=== PATIENT | female | born 1960 | race African-American/Black ===

== ENCOUNTER 2016-09-06 08:01 | Inpatient (IN) | payer MEDICARE, OTHER ==
[2016-09-06] VITALS (7 sets, daily range): BP systolic 92–132; BP diastolic 47–74; PULSE 82–96; RESP 16–20; TEMP 97.1–98.2; O2SAT 93–97
[~2016-09-06] VITALS: Ht 167.6 cm; Wt 135.0 kg
[~2016-09-06 08:01] MED LIST: ASPI81TA11 PO; ATOR40TA16 PO; BUPR75TA PO; CALC.25 PO; GABA100C4 PO; HYDR1LOT8 TOPICAL; LEVO50TA4 PO; LIPI40TA PO; NYST10007 TOPICAL; OSCA200T PO; PANT40TA3 PO; SUCR1TAB PO
[2016-09-06] MEDS ORDERED: SODIUM CHLORIDE 0.9% FLUSH 5 ML FLUSH IVF PRN ×2 (08:15→12:00)
--- NOTE | 2016-09-06 08:24 | PD ---
HPI Chief Complaint: Chest Pain Time Seen by Provider: 08:09 Travel History International Travel<30 days: No Contact w/Intl Traveler<30days: No Traveled to known affect area: No History of Present Illness HPI 56-year-old female was brought into the emergency room by EMS with history of left sided shoulder and arm pain worsening on movement. Patient was admitted for something similar 10 days ago. She is an end-stage renal disease hemodialysis dependent and is due for her dialysis today at 11 AM. She is also complaining of some shortness of breath. EMS vital signs were within normal limits. She is diabetic and her blood glucose was 135 by EMS. She does not require oxygen at home. She looked quite uncomfortable trying to move from the gurney to the stretcher. Mainly the pain was around the left shoulder and clavicular area. Denies any fall. She has a permacath in her right groin which is being used for dialysis. She is afebrile in the emergency room. She has been complaining of chills for the past 2 days. She has a noticeable skin rash all over her body. It's peeling. PFSH Past Medical History Narrative Medical List for past medical history is reviewed from the nursing note. Hx Anticoagulant Therapy: Yes (COUMADIN) Anemia: Yes Arthritis: Yes Asthma: Yes Autoimmune Disease: No Blood Disorders: No Anxiety: Yes Depression: Yes Heart Rhythm Problems: No Cancer: No Cardiovascular Problems: Yes (HTN) High Cholesterol: Yes Chemotherapy: No Chest Pain: Yes Congestive Heart Failure: Yes COPD: Yes Cerebrovascular Accident: No Diabetes: Yes Patient Takes Glucophage: No Dialysis: Yes (/) Diminished Hearing: No Endocrine: Yes Gastrointestinal Disorders: Yes (ULCERS) GERD: Yes Glaucoma: No Genitourinary: Yes (ESRD, DIALYSIS) Headaches: Yes Hepatitis: No Hiatal Hernia: No Hypertension: Yes (hx of not now) Immune Disorder: No Implanted Vascular Access Dvce: Yes (R FEMORAL AV FISTULA) Kidney Stones: No Musculoskeletal: Yes (ARTHRITIS) Neurologic: No Psychiatric: Yes Reproductive: No Respiratory: Yes (COPD, ASTHMA) Immunizations Current: Yes Migraines: No Myocardial Infarction: No Pneumonia: Yes (HX) Radiation Therapy: No Renal Failure: Yes (CRF) Seizures: No Sickle Cell Disease: No Sleep Apnea: Yes Thyroid Disease: No Ulcer: No Tetanus Vaccination: > 5 Years PNEUMOCCOCAL Vaccine (Year): 3 Menopausal: Yes : 3 Para: 3 Miscarriage: 0 : 0 Past Surgical History Abdominal Surgery: Yes AICD: No Appendectomy: Yes Arteriovenous Shunt: Yes (right femoral av fistula) Body Medical Devices: OLD NON FUNCTIONING GRAFT NANCY. CURRENT PERMACATH R GROIN Cardiac Surgery: No Cholecystectomy: Yes Ear Surgery: No Endocrine Surgery: Yes (THYROIDECTOMY) Eye Surgery: Yes (LASIK right cataract removed) Genitourinary Surgery: Yes (Peritoneal Abdominal Catheter removed april 2015) Gynecologic Surgery: Yes (Partial Hysterectomy and Appendectomy ) Hysterectomy: Yes (PARTIAL) Insulin Pump: No Joint Replacement: No Neurologic Surgery: No Oral Surgery: Yes (ALL TEETH REMOVED) Pacemaker: No Thoracic Surgery: No Other Surgery: Yes (RIGHT HAND, APPENDECTOMY, GALL BLADDER REMOVAL) Social History Alcohol Use: No Tobacco Use: No Substance Use: Yes (COCAINE IN THE 90'S) Allergies-Medications (Allergen,Severity, Reaction): Coded Allergies: Levaquin (Unverified Allergy, Severe, 09/06/16) ANAPHYLAXIS *MDRO Multi-Drug Resistant Organism (Verified Adverse Reaction, Unknown, Cleared, 09/07/16) MRSA (wound) - 04/2011, (blood) - 10/2011 MRSA PCR Screen negative 02/17/15 and 02/19/15. Cleared per Infection Control Comments List of her allergies reviewed from the nursing note. Reported Meds & Prescriptions Reported Meds & Active Scripts Active Nystop Topical (Nystatin Topical) 100,000 Unit/Gm Powd 1 Applic TOPICAL Q8HR Hydroskin (Hydrocortisone (Topical)) 1 % Lot 1 Applic TOPICAL Q8HR Aspirin EC (Aspirin) 81 Mg Tabdr 81 Mg PO DAILY Reported Sucralfate 1 Gm Tab 1 Gm PO BIDAC on empty stomach Rocaltrol (Calcitriol) 0.25 Mcg Cap 0.25 Mcg PO DAILY Pantoprazole (Pantoprazole Sodium) 40 Mg Tab 40 Mg PO DAILY Levothyroxine (Levothyroxine Sodium) 50 Mcg Tab 50 Mcg PO DAILY Gabapentin 100 Mg Cap 200 Mg PO TID Oscal 500/200 D-3 (Calcium Carbonate-Vitamin D) 500-200 Mg-Unit Tab 4 Tab PO Q8HR Bupropion HCl 75 Mg Tab 75 Mg PO DAILY Atorvastatin (Atorvastatin Calcium) 40 Mg Tab 40 Mg PO HS Narrative Medication List of her home medications reviewed from the nursing note. Review of Systems Except as stated in HPI: all other systems reviewed are Neg Physical Exam Narrative GENERAL: Awake, alert, obese, moderate distress SKIN: Warm and dry. Healing, flaky skin in the extremities and torso. Permacath in the right groin area with some erythema of the skin and foul odor around it HEAD: Atraumatic. Normocephalic. EYES: Pupils equal and round. No scleral icterus. No injection or drainage. ENT: No nasal bleeding or discharge. Mucous membranes pink and moist. NECK: Trachea midline. No JVD. CARDIOVASCULAR: Regular rate and rhythm. No murmur appreciated. RESPIRATORY: No accessory muscle use. Clear to auscultation. Breath sounds equal bilaterally. GASTROINTESTINAL: Abdomen soft, non-tender, nondistended. Hepatic and splenic margins not palpable. MUSCULOSKELETAL: No obvious deformities. No clubbing. No cyanosis. No edema. NEUROLOGICAL: Awake and alert. No obvious cranial nerve deficits. Motor grossly within normal limits. Normal speech. PSYCHIATRIC: Appropriate mood and affect; insight and judgment normal. Data Data Last Documented VS Vital Signs Date Time Temp Pulse Resp B/P Pulse Ox O2 Delivery O2 Flow Rate FiO2 09/06/16 08:17 Nasal Cannula 2 09/06/16 08:17 97 09/06/16 08:05 98.2 96 20 124/63 Orders Electrocardiogram (09/06/16 08:09) Ckmb (Isoenzyme) Profile (09/06/16 08:09) Complete Blood Count With Diff (09/06/16 08:09) Comprehensive Metabolic Panel (09/06/16 08:09) Magnesium (Mg) (09/06/16 08:09) Prothrombin Time / Inr (Pt) (09/06/16 08:09) Act Partial Throm Time (Ptt) (09/06/16 08:09) Troponin I (09/06/16 08:09) Chest, Single Ap (09/06/16 08:09) Ecg Monitoring (09/06/16 08:09) Bilateral Bp Monitoring (09/06/16 08:09) Iv Access Insert/Monitor (09/06/16 08:09) Oximetry (09/06/16 08:09) Oxygen Administration (09/06/16 08:09) Sodium Chloride 0.9% Flush (Ns Flush) (09/06/16 08:15) Blood Culture (09/06/16 08:09) Clavicle (09/06/16 ) Morphine Inj (Morphine Inj) (09/06/16 08:30) Vascular Poc Ultrasound (09/06/16 ) Consult Vascular Access Team (09/06/16 ) Calcium Gluconate Inj (Calcium Gluconate (09/06/16 11:15) Calcium Gluconate (Calcium Gluconate) (09/06/16 11:15) ^ Blood Flow Rate (09/06/16 11:50) ^ Dialysate Flow Rate (09/06/16 11:50) ^ Dialyzer (09/06/16 11:50) ^ Concentrate (09/06/16 11:50) ^ Acid Concentrate (09/06/16 11:50) ^ Length Of Dialysis (09/06/16 11:50) ^ Frequency Of Dialysis (09/06/16 11:50) ^ Dialysis Obtain (09/06/16 11:50) ^ Dialysis Schedule (09/06/16 11:50) Resp Oxygen Helder C Titrat 1-4 L (09/06/16 ) ^ Dialysis Weight (09/06/16 11:50) ^ Obtain As Needed (09/06/16 11:50) Sodium Chlor 0.9% 1000 Ml Inj (Ns 1000 M (09/06/16 11:50) Heparin Inj (Heparin Inj) (09/06/16 12:00) Sodium Chlor 0.9% 1000 Ml Inj (Ns 1000 M (09/06/16 11:50) Sodium Chlor 0.9% 1000 Ml Inj (Ns 1000 M (09/06/16 11:50) Mannitol Inj (Mannitol Inj) (09/06/16 12:00) Albumin 25% Inj (Albumin 25% Inj) (09/06/16 12:00) Sodium Chloride 0.9% Flush (Ns Flush) (09/06/16 12:00) Heparin Inj (Heparin Inj) (09/06/16 12:00) Gentamicin (Dialysis) Inj (Gentamicin (D (09/06/16 12:00) Ondansetron Inj (Zofran Inj) (09/06/16 12:00) Acetaminophen (Tylenol) (09/06/16 12:00) Diphenhydramine (Benadryl) (09/06/16 12:00) Nitroglycerin Sl (Nitrostat Sl) (09/06/16 12:00) Clonidine (Catapres) (09/06/16 12:00) Epoetin Velasquez Inj (Epogen Inj) (09/06/16 12:00) Gelatin 12 Mm/7 Mm Top (Gelfoam 12 Mm/7 (09/06/16 12:00) Epoetin Velasquez Inj (Epogen Inj) (09/06/16 12:00) Admit Order (Ed Use Only) (09/06/16 11:58) Labs Laboratory Tests Test 09/06/16 09/06/16 08:30 10:01 White Blood Count 11.4 TH/MM3 Red Blood Count 4.14 MIL/MM3 Hemoglobin 12.0 GM/DL Hematocrit 37.9 % Mean Corpuscular Volume 91.6 FL Mean Corpuscular Hemoglobin 29.0 PG Mean Corpuscular Hemoglobin 31.7 % Concent Red Cell Distribution Width 15.2 % Platelet Count 303 TH/MM3 Mean Platelet Volume 8.6 FL Neutrophils (%) (Auto) 77.6 % Lymphocytes (%) (Auto) 6.5 % Monocytes (%) (Auto) 8.0 % Eosinophils (%) (Auto) 7.4 % Basophils (%) (Auto) 0.5 % Neutrophils # (Auto) 8.9 TH/MM3 Lymphocytes # (Auto) 0.7 TH/MM3 Monocytes # (Auto) 0.9 TH/MM3 Eosinophils # (Auto) 0.8 TH/MM3 Basophils # (Auto) 0.1 TH/MM3 CBC Comment DIFF FINAL Differential Comment Prothrombin Time 10.8 SEC Prothromb Time International 1.0 RATIO Ratio Activated Partial 30.8 SEC Thromboplast Time Sodium Level 139 MEQ/L Potassium Level 4.8 MEQ/L Chloride Level 103 MEQ/L Carbon Dioxide Level 26.2 MEQ/L Anion Gap 10 MEQ/L Blood Urea Nitrogen 53 MG/DL Creatinine 8.61 MG/DL Estimat Glomerular Filtration 6 ML/MIN Rate Random Glucose 134 MG/DL Calcium Level 6.1 MG/DL Protein Corrected Calcium 5.9 MG/DL Magnesium Level 2.0 MG/DL Total Bilirubin 0.3 MG/DL Aspartate Amino Transf 11 U/L (AST/SGOT) Alanine Aminotransferase 18 U/L (ALT/SGPT) Alkaline Phosphatase 64 U/L Total Creatine Kinase 84 U/L Troponin I LESS THAN 0.02 NG/ML Total Protein 7.8 GM/DL Albumin 2.6 GM/DL MDM Medical Decision Making Medical Screen Exam Complete: Yes Emergency Medical Condition: Yes Medical Record Reviewed: Yes Interpretation(s) Twelve-lead EKG was reviewed by me. Normal sinus rhythm, normal axis, poor R- wave progression, low voltage, nonspecific ST-T wave changes. Rate of 90 bpm. Differential Diagnosis CHF, musculoskeletal pain, clavicular fracture, electrolyte abnormalities Narrative Course 8:23 AM awaiting for the blood test results. I will give this patient morphine for pain. Awaiting for the x-rays to be done and resulted. 10:19 AM patient has mild leukocytosis. Her chemistry was a redraw. The blood was just sent. Awaiting for the test result. I spoke with Dr. Leyva who is her shipping & receiving lead regarding patient's dialysis and he wants the patient to be admitted. I will call the hospitalist as soon as I have the chemistry results back. 11:11 AM calcium was critically low. I've ordered 1 g of IV calcium gluconate and 500 mg of by mouth calcium gluconate. Awaiting for the hospitalist to call back. She'll need to be admitted. Critical Care Narrative Aggregate critical care time was 30 minutes. Time to perform other separately billable procedures was not included in the critical care time. My time did not include minutes spent treating any other patients simultaneously or on activities that did not directly contribute to the patient's treatment. The services I provided to this patient were to treat and/or prevent clinically significant deterioration that could result in: Hypocalcemia, calcium replacement I provided critical care services requiring my management, as noted below: Chart data review, documentation time, medication orders and management, vital sign assessments/reviewing monitor data, ordering and reviewing lab tests, ordering and interpreting/reviewing x-rays and diagnostic studies, care of the patient and discussion of the patient with the admitting physicians. Procedures EKG Prior to Arrival: Yes Physician Communication Physician Communication Dr. leyva Diagnosis Primary Impression: ESRD (end stage renal disease) Additional Impressions: Chest pain Qualified Code: R07.9 - Chest pain, unspecified type Hypocalcemia History of hyperparathyroidism Dependent on hemodialysis Admitting Information Admitting Physician Requests: Admit Onel Che MD Sep 06, 2016 08:24
[2016-09-06] MEDS ORDERED: MORPHINE SULFATE 8 MG/ML INJ IV PUSH ONE (08:30)
[2016-09-06 08:50] LABS: AUTOMATED NEUTROPHIL # 8.9 TH/MM3 (1.8-7.7); BASOPHIL # 0.1 TH/MM3 (0-0.2); BASOPHIL % 0.5 % (0.0-2.0); EOSINOPHIL # 0.8 TH/MM3 (0-0.4); EOSINOPHIL % 7.4 % (0.0-4.0); HEMATOCRIT 37.9 % (35.0-46.0); HEMO FLAGS DIFF FINAL; LYMPH % 6.5 % (9.0-44.0); LYMPHOCYTE # 0.7 TH/MM3 (1.0-4.8); MEAN CELL VOLUME 91.6 FL (80.0-100.0); MEAN CORPUSCULAR HGB CONC 31.7 % (32.0-36.0); NEUT % 77.6 % (16.0-70.0); PLATELET COUNT 303 TH/MM3 (150-450); RED BLOOD COUNT 4.14 MIL/MM3 (4.00-5.30); RED CELL DISTRIBUTION WIDTH 15.2 % (11.6-17.2); WHITE BLOOD COUNT 11.4 TH/MM3 (4.0-11.0)
--- NOTE | 2016-09-06 09:16 | RADRPT ---
EXAM DATE/TIME: 09/06/2016 08:52 [facility] COMPARISON: CHEST SINGLE AP, August 25, 2016, 22:40. INDICATIONS : Chest pain sudden onset today. MEDICAL HISTORY : Chronic obstructive pulmonary disease. Congestive heart failure. Asthma. SURGICAL HISTORY : Vascular stent, hero catheter. ENCOUNTER: Initial ACUITY: 1 day PAIN SCORE: 5/10 LOCATION: Bilateral chest FINDINGS: A single view of the chest demonstrates the lungs to be symmetrically aerated without evidence of mas s, infiltrate or effusion. The cardiomediastinal contours are unremarkable. Osseous structures are intact. Vascular stents left side again noted unchanged CONCLUSION: No acute disease. No significant change has occurred. Blas Butler MD on September 06, 2016 at 9:13 Board Certified Radiologist. This report was verified electronically.
--- NOTE | 2016-09-06 09:18 | RADRPT ---
EXAM DATE/TIME: 09/06/2016 08:55 [facility] COMPARISON: No previous studies available for comparison. INDICATIONS : Left clavicle pain no known injury. MEDICAL HISTORY : Chronic obstructive pulmonary disease. Congestive heart failure. Asthma. SURGICAL HISTORY : Vascular stent, hero catheter. ENCOUNTER: Initial ACUITY: 1 day PAIN SCORE: 5/10 LOCATION: Left Clavicle. FINDINGS: Two view examination of the left clavicle demonstrates no evidence of fracture. The sternoclavicular joints and acromioclavicular joints are maintained. Bony mineralization is normal. Vascular stents are noted in place CONCLUSION: Vascular stents stable and unchanged in place. Otherwise negative Blas Butler MD on September 06, 2016 at 9:16 Board Certified Radiologist. This report was verified electronically.
[2016-09-06 10:38] LABS: PROTHROMBIN TIME - PATIENT 10.8 SEC (9.8-11.6)
[2016-09-06 10:40] LABS: APTT (PATIENT) 30.8 SEC (24.3-30.1)
[2016-09-06 10:54] LABS: ANION GAP 10 MEQ/L (5-15)
[2016-09-06 10:55] LABS: ALKALINE PHOSPHATASE 64 U/L (45-117); ALT (GPT) 18 U/L (10-53); AST (GOT) 11 U/L (15-37); BICARBONATE 26.2 MEQ/L (21.0-32.0); BLOOD UREA NITROGEN 53 MG/DL (7-18); CHLORIDE 103 MEQ/L (98-107); GLOMERULAR FILTRATION RATE 6 ML/MIN (>89); POTASSIUM 4.8 MEQ/L (3.5-5.1); SODIUM (NA) 139 MEQ/L (136-145); TOTAL BILIRUBIN ADULT 0.3 MG/DL (0.2-1.0)
[2016-09-06 10:58] LABS: CREATINE KINASE 84 U/L (26-192)
[2016-09-06 11:01] LABS: CALCIUM-PROTEIN CORRECTED 5.9 MG/DL (8.5-10.1)
[2016-09-06] MEDS ORDERED: CALCIUM GLUCONATE 10% 1 GM/10 ML VIAL IV PUSH ONE (11:15)
[2016-09-06] MEDS ORDERED: CALCIUM GLUCONATE 500 MG TAB PO ONE (11:15)
[2016-09-06] MEDS ORDERED: SODIUM CHLOR 0.9% 1000 ML INJ 1,000 ML IV PRN ×2 (11:50)
[2016-09-06] MEDS ORDERED: ACETAMINOPHEN 325 MG TAB PO PRN ×2 (12:00)
[2016-09-06] MEDS ORDERED: NITROGLYCERIN 0.4 MG SL 25 TABS/BTL SL PRN (12:00)
[2016-09-06] MEDS ORDERED: PROCHLORPERAZINE 25 MG SUPP PR PRN (12:00)
[2016-09-06] MEDS ORDERED: MAGNESIUM HYDROXIDE SUSP 30 ML CUP PO PRN (12:00)
[2016-09-06] MEDS ORDERED: ONDANSETRON HCL 4 MG/2 ML VIAL IV PRN (12:00)
[2016-09-06] MEDS ORDERED: EPOETIN ALFA 2,000 UNITS/ML VIAL IV PRN (12:00)
[2016-09-06] MEDS ORDERED: SENNOSIDES 8.6 MG TAB PO PRN (12:00)
[2016-09-06] MEDS ORDERED: BISACODYL 10 MG SUPP PR PRN (12:00)
[2016-09-06] MEDS ORDERED: ONDANSETRON HCL 4 MG/2 ML VIAL IVP PRN (12:00)
[2016-09-06] MEDS ORDERED: EPOETIN ALFA 10,000 UNITS/ML VIAL IV PRN (12:00)
[2016-09-06] MEDS ORDERED: MANNITOL 12.5 GM/50 ML VIAL IV PRN (12:00)
[2016-09-06] MEDS ORDERED: SODIUM CHLORIDE 0.9% FLUSH 5 ML FLUSH FLUSH PRN (12:00)
[2016-09-06] MEDS ORDERED: diphenhydrAMINE HCL 25 MG CAP PO PRN (12:00)
[2016-09-06] MEDS ORDERED: GELATIN 12 MM/7 MM FOAM TOP PRN (12:00)
[2016-09-06] MEDS ORDERED: HEPARIN SODIUM - IV 10,000 UNITS/10 ML VIAL IVF PRN (12:00)
[2016-09-06] MEDS ORDERED: cloNIDine HCL 0.1 MG TAB PO PRN (12:00)
[2016-09-06] MEDS ORDERED: TEMAZEPAM 15 MG CAP PO PRN (12:00)
[2016-09-06] MEDS: HEPARIN SODIUM - SQ 10,000 UNITS/ML VIAL SQ SCH (12:40)
[2016-09-06] MEDS ORDERED: CALCIUM CARBONATE 500 MG CHEWABLE TAB CHEW SCH (13:30)
--- NOTE | 2016-09-06 14:46 | PD.CONS ---
HPI Service Nephrology Consult Requested By Dr. Zaragoza Reason for Consult ESRD management Primary Care Physician No Primary Care Physician History of Present Illness Patient is a 56-year-old Afro-[place] female with morbid obesity, diabetes, hypertension who had the left shoulder pain and then had raw 10 for this complaint, she has similar admission upon last admission and was discharged recently, she goes on hemodialysis on Sunday, Sunday and Sunday, she has a groin fungal infection and was using nystatin powder. She is feeling better her calcium was low and this was replaced in the ED. She admits to keep forgetting to take her calcium supplements as prescribed. Review of Systems Constitutional: COMPLAINS OF: Fatigue Cardiovascular: COMPLAINS OF: Chest pain Musculoskeletal: COMPLAINS OF: Joint pain Integumentary: COMPLAINS OF: Pruritus, Rash Neurologic: COMPLAINS OF: Abnormal gait, Poor Balance Psychiatric: COMPLAINS OF: Anxiety Past Family Social History Allergies: Coded Allergies: Levaquin (Unverified Allergy, Severe, 09/06/16) ANAPHYLAXIS *MDRO Multi-Drug Resistant Organism (Verified Adverse Reaction, Unknown, 09/06/16) MRSA (wound) - 04/2011, (blood) - 10/2011 MRSA PCR Screen negative 02/17/15 and 02/19/15. Cleared per Infection Control Past Medical History Diabetes Hypertension History of sepsis MRSA ESRD Failure of previous AV fistula and graft Anemia Morbid obesity GERD Asthma Hepatitis C Past Surgical History Multiple AV fistulas and grafts which all failed Right leg permacath Thyroidectomy Appendectomy Partial hysterectomy Reported Medications Reported Meds & Active Scripts Active Nystop Topical (Nystatin Topical) 100,000 Unit/Gm Powd 1 Applic TOPICAL Q8HR Hydroskin (Hydrocortisone (Topical)) 1 % Lot 1 Applic TOPICAL Q8HR Aspirin EC (Aspirin) 81 Mg Tabdr 81 Mg PO DAILY Reported Sucralfate 1 Gm Tab 1 Gm PO BIDAC on empty stomach Rocaltrol (Calcitriol) 0.25 Mcg Cap 0.25 Mcg PO DAILY Pantoprazole (Pantoprazole Sodium) 40 Mg Tab 40 Mg PO DAILY Levothyroxine (Levothyroxine Sodium) 50 Mcg Tab 50 Mcg PO DAILY Gabapentin 100 Mg Cap 200 Mg PO TID Oscal 500/200 D-3 (Calcium Carbonate-Vitamin D) 500-200 Mg-Unit Tab 4 Tab PO Q8HR Bupropion HCl 75 Mg Tab 75 Mg PO DAILY Atorvastatin (Atorvastatin Calcium) 40 Mg Tab 40 Mg PO HS Active Ordered Medications Current Medications Medications (Trade) Dose Ordered Sig/Mary Grace Route Start Time Stop Time Status Last Admin IV Flush 2 ml 2 ml UNSCH PRN IVF 09/06/16 08:15 (NS 1000 ml Inj) 1,000 ml @ 0 mls/hr Q0M PRN IV 09/06/16 11:50 Heparin Sodium (Porcine) 8000 units 8,000 units UNSCH PRN IVF 09/06/16 12:00 Sodium Chloride 1,000 ml @ 200 mls/hr Q5H PRN IV 09/06/16 11:50 (NS 1000 ml Inj) 1,000 ml @ 0 mls/hr Q0M PRN IV 09/06/16 11:50 (Mannitol Inj) 12.5 gm UNSCH PRN IV 09/06/16 12:00 (Albumin 25% Inj) 25 gm UNSCH PRN IV 09/06/16 12:00 (NS Flush) 5 ml UNSCH PRN IVF 09/06/16 12:00 (Heparin Inj) UNSCH PRN .XX 09/06/16 12:00 (Gentamicin (Dialysis) Inj) 20 mg UNSCH PRN IV 09/06/16 12:00 (Zofran Inj) 4 mg UNSCH PRN IV 09/06/16 12:00 (Tylenol) 650 mg UNSCH PRN PO 09/06/16 12:00 (Benadryl) 25 mg UNSCH PRN PO 09/06/16 12:00 (Nitrostat Sl) 0.4 mg UNSCH PRN SL 09/06/16 12:00 (Catapres) 0.1 mg UNSCH PRN PO 09/06/16 12:00 (Gelfoam 12 Mm/7 Mm Top) 1 foam UNSCH PRN TOP 09/06/16 12:00 (Epogen Inj) 2,000 units UNSCH PRN IV 09/06/16 12:00 (NS Flush) 2 ml UNSCH PRN FLUSH 09/06/16 12:00 (NS Flush) 2 ml BID FLUSH 09/06/16 21:00 (Tylenol) 650 mg Q4H PRN PO 09/06/16 12:00 (Zofran Inj) 4 mg Q6H PRN IVP 09/06/16 12:00 (Compazine Supp) 25 mg Q12H PRN VT 09/06/16 12:00 (Dulcolax Supp) 10 mg DAILY PRN VT 09/06/16 12:00 (Milk Of Magnesia Liq) 30 ml Q12H PRN PO 09/06/16 12:00 (Senokot) 17.2 mg Q12H PRN PO 09/06/16 12:00 (Restoril) 15 mg HS PRN PO 09/06/16 12:00 (Heparin Inj) 5,000 units Q12H SQ 09/06/16 12:00 09/06/16 12:40 (Tums Chew) 500 mg Q12HR CHEW 09/06/16 13:30 Family History Noncontributory Social History Denies smoking or alcohol is previous history of cocaine use in Physical Exam Vital Signs Vital Signs Date Time Temp Pulse Resp B/P Pulse Ox O2 Delivery O2 Flow Rate FiO2 09/06/16 12:27 97 Nasal Cannula 2.00 09/06/16 08:17 Nasal Cannula 2 09/06/16 08:17 97 09/06/16 08:10 Nasal Cannula 2 09/06/16 08:05 98.2 96 20 124/63 96 Physical Exam GENERAL: Well-nourished, well-developed morbidly obese patient. SKIN: Warm and dry. HEAD: Normocephalic. EYES: No scleral icterus. No injection or drainage. NECK: Supple, trachea midline. No JVD or lymphadenopathy. CARDIOVASCULAR: Regular rate and rhythm without murmurs, gallops, or rubs. RESPIRATORY: Breath sounds diminished at bases. GASTROINTESTINAL: Abdomen soft, non-tender, distended. EXTREMITIES: No cyanosis, 2+ edema. NEUROLOGICAL: Awake, alert, and oriented x 3. Non-focal. Laboratory Laboratory Tests Test 09/06/16 09/06/16 08:30 10:01 White Blood Count 11.4 Red Blood Count 4.14 Hemoglobin 12.0 Hematocrit 37.9 Mean Corpuscular Volume 91.6 Mean Corpuscular Hemoglobin 29.0 Mean Corpuscular Hemoglobin 31.7 Concent Red Cell Distribution Width 15.2 Platelet Count 303 Mean Platelet Volume 8.6 Neutrophils (%) (Auto) 77.6 Lymphocytes (%) (Auto) 6.5 Monocytes (%) (Auto) 8.0 Eosinophils (%) (Auto) 7.4 Basophils (%) (Auto) 0.5 Neutrophils # (Auto) 8.9 Lymphocytes # (Auto) 0.7 Monocytes # (Auto) 0.9 Eosinophils # (Auto) 0.8 Basophils # (Auto) 0.1 CBC Comment DIFF FINAL Differential Comment Prothrombin Time 10.8 Prothromb Time International 1.0 Ratio Activated Partial 30.8 Thromboplast Time Sodium Level 139 Potassium Level 4.8 Chloride Level 103 Carbon Dioxide Level 26.2 Anion Gap 10 Blood Urea Nitrogen 53 Creatinine 8.61 Estimat Glomerular Filtration 6 Rate Random Glucose 134 Calcium Level 6.1 Protein Corrected Calcium 5.9 Magnesium Level 2.0 Total Bilirubin 0.3 Aspartate Amino Transf 11 (AST/SGOT) Alanine Aminotransferase 18 (ALT/SGPT) Alkaline Phosphatase 64 Total Creatine Kinase 84 Troponin I LESS THAN 0.02 Total Protein 7.8 Albumin 2.6 Date/Time Procedure Status Source Growth 09/06/16 08:30 Aerobic Blood Culture Received Blood Peripheral Pending 09/06/16 08:30 Anaerobic Blood Culture Received Blood Peripheral Pending Result Diagram: 09/06/16 0830 09/06/16 1001 Imaging Last Impressions Chest X-Ray 09/06/16 0809 Signed Impressions: Service Date/Time: Tuesday, September 06, 2016 08:52 - CONCLUSION: No acute disease. No significant change has occurred. Blas Butler MD Clavicle X-Ray 09/06/16 0000 Signed Impressions: Service Date/Time: Tuesday, September 06, 2016 08:55 - CONCLUSION: Vascular stents stable and unchanged in place. Otherwise negative Blas Butler MD Assessment and Plan Problem List: (1) ESRD (end stage renal disease) Plan: Patient is seen during hemodialysis she is tolerating it well we will do ultrafiltration get fluid off expects approximately 3 L off Follow her while she is in the hospital Calcium was replaced (2) Hypocalcemia Plan: She is told to take calcium carbonate as advice (3) Chest pain Plan: Patient has been observed (4) Hypertension Plan: stable blood pressure Problem Qualifiers (1) Chest pain: Qualified Code: R07.9 - Chest pain, unspecified type Frank Villagran MD Sep 06, 2016 14:46
--- NOTE | 2016-09-06 15:58 | HHI.HP ---
[facility] Primary [facility] Physician No Primary Care Physician Admission Diagnosis hypocalcemia, end-stage renal disease, hemodialysis dependent, chest Diagnoses: Chief Complaint: chest pain Travel History International Travel<30 Days: No Contact w/Intl Traveler <30 Da: No Traveled to Known Affected Are: No History of Present Illness 56-year-old female with a PMH of HTN, ESRD on HD M/W/F, COPD, CHF (Echo 05/11/16 w / EF 55-60%) and GERD who came to the ER w/ complaints of chest pain x2 days. Note the patient was recently admitted with similar complaints. and was cleared by cardiology for DC. States she's had some "congestion" as well, but denies fever, chills or SOB. Troponin negative, EKG with no acute changes. CXR negative for acute findings. Patient currently asymptomatic. Patient main complaint is left shoulder pain and inability to move hr shoulder due to pain, Xray reviewed without any sign of fracture. She does have decreased ROM of the left shoulder and the head 2/2 PAIN. Patient however has severe muscle spasm. No n/v/d/c. No diaphoresis, palpitations. Review of Systems Constitutional: DENIES: Fever, Chills, Change in appetite Endocrine: DENIES: Heat/cold intolerance Eyes: DENIES: Blurred vision, Eye pain Ears, nose, mouth, throat: DENIES: Tinnitus, Hearing loss, Vertigo, Nasal discharge, Oral lesions, Throat pain, Hoarseness, Ear Pain, Running Nose, Epistaxis, Sinus Pain, Toothache, Odynophagia Respiratory: DENIES: Apneas, Cough, Snoring, Wheezing, Hemoptysis, Sputum production, Shortness of breath Cardiovascular: COMPLAINS OF: Chest pain, DENIES: Palpitations, Syncope, Dyspnea on Exertion, PND, Lower Extremity Edema, Orthopnea, Claudication Gastrointestinal: DENIES: Abdominal pain, Black stools, Bloody stools, Constipation, Diarrhea, Nausea, Vomiting, Difficulty Swallowing, Anorexia Musculoskeletal: COMPLAINS OF: Joint pain (left shoulder /neck), Neck pain Neurologic: DENIES: Abnormal gait, Headache, Localized weakness, Paresthesias, Seizures, Speech Problems, Tremor, Poor Balance Psychiatric: DENIES: Anxiety, Depression Past Family Social History Past Medical History HTN, ESRD on HD M/W/F, COPD, CHF (Echo 05/11/16 w/ EF 55-60%) and GERD Past Surgical History RUE AV Fistula, Right Groin AV Fistula, PD Catheter Placement and Removal, Partial Hysterectomy, Appendectomy, Cholecystectomy, Thyroidectomy, Right Cataract Surgery, Dental Extraction Reported Medications Reported Meds & Active Scripts Active Nystop Topical (Nystatin Topical) 100,000 Unit/Gm Powd 1 Applic TOPICAL Q8HR Hydroskin (Hydrocortisone (Topical)) 1 % Lot 1 Applic TOPICAL Q8HR Aspirin EC (Aspirin) 81 Mg Tabdr 81 Mg PO DAILY Reported Sucralfate 1 Gm Tab 1 Gm PO BIDAC on empty stomach Rocaltrol (Calcitriol) 0.25 Mcg Cap 0.25 Mcg PO DAILY Pantoprazole (Pantoprazole Sodium) 40 Mg Tab 40 Mg PO DAILY Levothyroxine (Levothyroxine Sodium) 50 Mcg Tab 50 Mcg PO DAILY Gabapentin 100 Mg Cap 200 Mg PO TID Oscal 500/200 D-3 (Calcium Carbonate-Vitamin D) 500-200 Mg-Unit Tab 4 Tab PO Q8HR Bupropion HCl 75 Mg Tab 75 Mg PO DAILY Atorvastatin (Atorvastatin Calcium) 40 Mg Tab 40 Mg PO HS Allergies: Coded Allergies: Levaquin (Unverified Allergy, Severe, 09/06/16) ANAPHYLAXIS *MDRO Multi-Drug Resistant Organism (Verified Adverse Reaction, Unknown, 09/06/16) MRSA (wound) - 04/2011, (blood) - 10/2011 MRSA PCR Screen negative 02/17/15 and 02/19/15. Cleared per Infection Control Family History Mother with DM, HTN Sister HTN, DM Father prostate CA Brother EtOH abuse 2/2 complications Social History Denies alcohol, tobacco or drugs. Physical Exam Vital Signs Vital Signs Date Time Temp Pulse Resp B/P Pulse Ox O2 Delivery O2 Flow Rate FiO2 09/06/16 12:27 97 Nasal Cannula 2.00 09/06/16 08:17 Nasal Cannula 2 09/06/16 08:17 97 09/06/16 08:10 Nasal Cannula 2 09/06/16 08:05 98.2 96 20 124/63 96 Physical Exam GENERAL: This is a very pleasant 56 yo morbidly obese AA female, well-nourished , well-developed patient, in no apparent distress. SKIN: Very dry skin with multiple circular lesions. Rash on groin area. HEAD: Atraumatic. Normocephalic. No temporal or scalp tenderness. EYES: Pupils equal round and reactive. Extraocular motions intact. No scleral icterus. No injection or drainage. ENT: Nose without bleeding, purulent drainage or septal hematoma. Throat without erythema, tonsillar hypertrophy or exudate. Uvula midline. Airway patent. NECK: Trachea midline. No JVD or lymphadenopathy. Supple, nontender, no meningeal signs. CARDIOVASCULAR: Regular rate and rhythm without murmurs, gallops, or rubs. RESPIRATORY: Clear to auscultation. Breath sounds equal bilaterally. No wheezes , rales, or rhonchi. GASTROINTESTINAL: Abdomen soft, non-tender, nondistended. No hepato-splenomegaly , or palpable masses. No guarding. MUSCULOSKELETAL: Neck with paravertebral muscle tenderness, trapezius muscle with tenderness and spasm. very tense. Decreased ROM of the left shoulder and head movement 2/2 pain. Extremities without clubbing, cyanosis, or edema. No joint tenderness on palpation, no effusion, or edema noted. No calf tenderness. Negative Homans sign bilaterally. NEUROLOGICAL: Awake and alert. Cranial nerves II through XII intact. Motor and sensory grossly within normal limits. Five out of 5 muscle strength in all muscle groups. Normal speech. Laboratory Laboratory Tests Test 09/06/16 09/06/16 08:30 10:01 White Blood Count 11.4 Red Blood Count 4.14 Hemoglobin 12.0 Hematocrit 37.9 Mean Corpuscular Volume 91.6 Mean Corpuscular Hemoglobin 29.0 Mean Corpuscular Hemoglobin 31.7 Concent Red Cell Distribution Width 15.2 Platelet Count 303 Mean Platelet Volume 8.6 Neutrophils (%) (Auto) 77.6 Lymphocytes (%) (Auto) 6.5 Monocytes (%) (Auto) 8.0 Eosinophils (%) (Auto) 7.4 Basophils (%) (Auto) 0.5 Neutrophils # (Auto) 8.9 Lymphocytes # (Auto) 0.7 Monocytes # (Auto) 0.9 Eosinophils # (Auto) 0.8 Basophils # (Auto) 0.1 CBC Comment DIFF FINAL Differential Comment Prothrombin Time 10.8 Prothromb Time International 1.0 Ratio Activated Partial 30.8 Thromboplast Time Sodium Level 139 Potassium Level 4.8 Chloride Level 103 Carbon Dioxide Level 26.2 Anion Gap 10 Blood Urea Nitrogen 53 Creatinine 8.61 Estimat Glomerular Filtration 6 Rate Random Glucose 134 Calcium Level 6.1 Protein Corrected Calcium 5.9 Magnesium Level 2.0 Total Bilirubin 0.3 Aspartate Amino Transf 11 (AST/SGOT) Alanine Aminotransferase 18 (ALT/SGPT) Alkaline Phosphatase 64 Total Creatine Kinase 84 Troponin I LESS THAN 0.02 Total Protein 7.8 Albumin 2.6 Date/Time Procedure Status Source Growth 09/06/16 08:30 Aerobic Blood Culture Received Blood Peripheral Pending 09/06/16 08:30 Anaerobic Blood Culture Received Blood Peripheral Pending Result Diagram: 09/06/16 0830 09/06/16 1001 Imaging Last Impressions Chest X-Ray 09/06/16 0809 Signed Impressions: Service Date/Time: Tuesday, September 06, 2016 08:52 - CONCLUSION: No acute disease. No significant change has occurred. Blas Butler MD Clavicle X-Ray 09/06/16 0000 Signed Impressions: Service Date/Time: Tuesday, September 06, 2016 08:55 - CONCLUSION: Vascular stents stable and unchanged in place. Otherwise negative Blas Butler MD Assessment and Plan Assessment and Plan 56-year-old female with a PMH of HTN, ESRD on HD M/W/F, COPD, CHF (Echo 05/11/16 w / EF 55-60%) and GERD who came to the ER w/ complaints of chest pain x2 days Hypocalcemia. S/p parathyroidectomy. Calcium replaced by IV in the ED . Continue to monitor. Also has HD today and Ca was replaced during HD. Continue Ca gluconate PO. ESRD on HD: M/W/F. Nephrology consulted. Consult Dr Villagran her nephrology doctpr who recommends admission in the hospital Chest Pain: Atypical. Troponin negative. EKG reviewed, no acute changes or significant change from previous. Was seen by Dr. Sloane han on last recent admission, patient has normal Nuclear Stress Test. Was cleared by cardiology for DC. CXR unremarkable. Muscle spasm causing neck pain/ decreased shoulder range of motion. Xray reviewed, no fractures. Pain med per pain scale PO and IV. Flexeryl po 10 mg q8 hrs. Consult PT/OT COPD: Chronic, stable. Does not appear to be in acute exacerbation. Hypertension/hypotension: Reportedly history of hypertension, however BP is fairly controlled. Will continue to monitor. Rash the upper extremities: Possibly psoriasis. Follow-up with dermatology as outpatient. Continue steroid cream Morbid Obesity: BMI 51.8. Counseled on weight reduction. Outpatient f/up with PCP/sock drier. Other chronic medical conditions include GERD, Hypothyroidism, MBD, depression, neuropathy: Stable at this time and will continue home medications as indicated. PT consulted/ OT consult Case management consulted. DVT Prophylaxis: Heparin sq/ SCD /TEDs Code Status full Discussed Condition With patient, nurse, ED physician Dr Che Physician Certification 2 Midnight Certification Type: Admission for Inpatient Services Order for Inpatient Services The services are ordered in accordance with Medicare regulations or non- Medicare payer requirements, as applicable. In the case of services not specified as inpatient-only, they are appropriately provided as inpatient services in accordance with the 2-midnight benchmark. Estimated LOS (days): 3 days is the estimated time the patient will need to remain in the hospital, assuming treatment plan goals are met and no additional complications. Post-Hospital Plan: Home Janneth Zaragoza MD Sep 06, 2016 15:58
[2016-09-06] MEDS: HEPARIN SODIUM - IV 10,000 UNITS/10 ML VIAL PRN (16:03)
[2016-09-06] MEDS: SODIUM CHLOR 0.9% 1000 ML INJ 1,000 ML IV PRN (16:03)
[2016-09-06] MEDS: GENTAMICIN SULFATE (DIALYSIS USE ONLY) 20 MG/2 ML VIAL IV PRN (16:03)
[2016-09-06] MEDS ORDERED: MORPHINE SULFATE 4 MG/ML INJ IV PRN (17:00)
[2016-09-06] MEDS ORDERED: NALOXONE HCL 0.4 MG/ML AMP IV PRN (17:00)
--- NOTE | 2016-09-06 17:18 | HHI.DCPOC ---
Discharge Care Plan Goals to Promote Your Health * To prevent worsening of your condition and complications * To maintain your health at the optimal level Directions to Meet Your Goals Take your medications as prescribed Follow your dietary instruction Follow activity as directed Keep your appointments as scheduled Take your immunizations and boosters as scheduled If your symptoms worsen call your PCP, if no PCP go to Urgent Care Center or Emergency Room Smoking is Dangerous to Your Health. Avoid second hand smoke Call the 24-hour hour crisis hotline for domestic abuse at Janneth Zaragoza MD Sep 06, 2016 17:18
[2016-09-06] MEDS: CALCIUM CARBONATE 500 MG CHEWABLE TAB CHEW SCH ×2 (18:08→21:23)
[2016-09-06] MEDS: GABAPENTIN 100 MG CAP PO SCH (18:08)
[2016-09-06] MEDS: CYCLOBENZAPRINE HCL 10 MG TAB PO SCH ×2 (18:08→21:23)
[2016-09-06] MEDS: CALCIUM CARBONATE 1.25 GM (CA 500 MG) TAB PO SCH (18:08)
[2016-09-06] MEDS: ACETAMINOPHEN/HYDROcodone 325 MG/10 MG TAB PO PRN (18:15)
[2016-09-06] MEDS: SODIUM CHLORIDE 0.9% FLUSH 5 ML FLUSH FLUSH SCH (21:23)
[2016-09-06] MEDS: CALCIUM/VITAMIN D 250 MG/125 U TAB PO SCH (21:23)
[2016-09-06] MEDS: ATORVASTATIN 40 MG TAB PO SCH (21:23)
[2016-09-06] MEDS: NYSTATIN 100,000 U/GM PWD 15 GM BTL TOPICAL SCH (21:46)
[2016-09-06] MEDS: HYDROCORTISONE 1% LOTN 120 ML BTL TOPICAL SCH (21:46)
--- NOTE | 2016-09-06 23:05 | EKG ---
Date Performed: 09/06/2016 Time Performed: 08:16:58 PTAGE: 56 years EKG: Sinus rhythm LOW QRS VOLTAGE IN PRECORDIAL LEADS BORDERLINE ECG PREVIOUS TRACING : 08/27/2016 04.49 DOCTOR: Yara Wise Interpretating Date/Time 09/06/2016 23:02:33
[2016-09-07] VITALS (7 sets, daily range): BP systolic 103–124; BP diastolic 57–66; PULSE 80–103; RESP 17–19; TEMP 96–99; O2SAT 92–96
[2016-09-07] MEDS: CALCIUM CARBONATE 1.25 GM (CA 500 MG) TAB PO SCH ×5 (00:22→23:09)
[2016-09-07] MEDS: ACETAMINOPHEN/HYDROcodone 325 MG/10 MG TAB PO PRN ×3 (00:22→19:02)
[2016-09-07] MEDS: HEPARIN SODIUM - SQ 10,000 UNITS/ML VIAL SQ SCH ×3 (00:22→23:09)
[2016-09-07] MEDS: CALCIUM/VITAMIN D 250 MG/125 U TAB PO SCH ×3 (05:49→21:01)
[2016-09-07] MEDS: SUCRALFATE 1 GM TAB PO SCH ×2 (05:49→15:59)
[2016-09-07] MEDS: CYCLOBENZAPRINE HCL 10 MG TAB PO SCH ×3 (05:49→21:01)
[2016-09-07] MEDS: LEVOTHYROXINE SODIUM 50 MCG TAB PO SCH (05:50)
[2016-09-07] MEDS: CALCIUM CARBONATE 500 MG CHEWABLE TAB CHEW SCH ×5 (05:50→21:01)
[2016-09-07] MEDS: HYDROCORTISONE 1% LOTN 120 ML BTL TOPICAL SCH ×3 (05:50→21:02)
[2016-09-07] MEDS: NYSTATIN 100,000 U/GM PWD 15 GM BTL TOPICAL SCH ×3 (05:51→21:02)
[2016-09-07 06:57] LABS: AUTOMATED NEUTROPHIL # 5.9 TH/MM3 (1.8-7.7); BASOPHIL % 0.3 % (0.0-2.0); EOSINOPHIL # 0.8 TH/MM3 (0-0.4); EOSINOPHIL % 9.3 % (0.0-4.0); HEMATOCRIT 38.2 % (35.0-46.0); HEMO FLAGS DIFF FINAL; LYMPH % 8.6 % (9.0-44.0); LYMPHOCYTE # 0.7 TH/MM3 (1.0-4.8); MEAN CELL VOLUME 92.4 FL (80.0-100.0); MEAN CORPUSCULAR HEMOGLOBIN 29.3 PG (27.0-34.0); MEAN CORPUSCULAR HGB CONC 31.7 % (32.0-36.0); MONO % 9.2 % (0.0-8.0); NEUT % 72.6 % (16.0-70.0); PLATELET COUNT 256 TH/MM3 (150-450); RED BLOOD COUNT 4.14 MIL/MM3 (4.00-5.30); WHITE BLOOD COUNT 8.2 TH/MM3 (4.0-11.0)
[2016-09-07 07:07] LABS: BICARBONATE 27.1 MEQ/L (21.0-32.0); POTASSIUM 4.5 MEQ/L (3.5-5.1)
[2016-09-07 08:20] LABS: CALCIUM-PROTEIN CORRECTED 7.2 MG/DL (8.5-10.1)
[2016-09-07] MEDS: CALCITRIOL 0.25 MCG CAP PO SCH (09:59)
[2016-09-07] MEDS: buPROPion HCL 75 MG TAB PO SCH (09:59)
[2016-09-07] MEDS: PANTOPRAZOLE SOD 40 MG DELAYED RELEASE TAB PO SCH (09:59)
[2016-09-07] MEDS: ASPIRIN EC 81 MG TABEC PO SCH (09:59)
[2016-09-07] MEDS: GABAPENTIN 100 MG CAP PO SCH ×3 (09:59→18:10)
[2016-09-07] MEDS: SODIUM CHLORIDE 0.9% FLUSH 5 ML FLUSH FLUSH SCH ×2 (10:05→21:02)
[2016-09-07] MEDS ORDERED: CALCIUM GLUCONATE INJ 2 GM in DEXTROSE 5% IN WATER 100ML INJ 100 ML IV ONE ×2 (10:45)
--- NOTE | 2016-09-07 10:45 | HHI.PR ---
Subjective Remarks Patient is in the chair, says she feels improved today. Less pain. No fever or chills. No nausea/ vomiting, diarrhea or constipation. Objective Vitals Vital Signs Date Time Temp Pulse Resp B/P Pulse Ox O2 Delivery O2 Flow Rate FiO2 09/07/16 08:00 96.0 80 17 124/58 96 09/07/16 04:00 96.9 80 18 103/60 96 09/06/16 23:22 97.2 82 17 118/64 96 09/06/16 19:12 95 Nasal Cannula 2.00 09/06/16 19:00 97.7 91 16 92/47 93 09/06/16 16:17 97.1 88 19 132/74 97 09/06/16 12:27 97 Nasal Cannula 2.00 I/O 09/06/16 09/06/16 09/06/16 09/07/16 09/07/16 09/07/16 07:00 15:00 23:00 07:00 15:00 23:00 Intake Total 480 ml 480 ml Output Total 3000 ml Balance -2520 ml 480 ml Intake Oral 480 ml 480 ml Output Hemodialysis 3000 ml # Voids 0 0 # Bowel Movements 0 0 Result Diagram: 09/07/16 0524 09/07/16 0524 Imaging Last Impressions Chest X-Ray 09/06/16 0809 Signed Impressions: Service Date/Time: Tuesday, September 06, 2016 08:52 - CONCLUSION: No acute disease. No significant change has occurred. Blas Butler MD Clavicle X-Ray 09/06/16 0000 Signed Impressions: Service Date/Time: Tuesday, September 06, 2016 08:55 - CONCLUSION: Vascular stents stable and unchanged in place. Otherwise negative Blas Butler MD Objective Remarks GENERAL: This is a very pleasant 56 yo morbidly obese AA female, well-nourished , well-developed patient, in no apparent distress. SKIN: Very dry skin with multiple circular lesions. Rash on groin area. HEAD: Atraumatic. Normocephalic. No temporal or scalp tenderness. EYES: Pupils equal round and reactive. Extraocular motions intact. No scleral icterus. No injection or drainage. ENT: Nose without bleeding, purulent drainage or septal hematoma. Throat without erythema, tonsillar hypertrophy or exudate. Uvula midline. Airway patent. NECK: Trachea midline. No JVD or lymphadenopathy. Supple, nontender, no meningeal signs. CARDIOVASCULAR: Regular rate and rhythm without murmurs, gallops, or rubs. RESPIRATORY: Clear to auscultation. Breath sounds equal bilaterally. No wheezes , rales, or rhonchi. GASTROINTESTINAL: Abdomen soft, non-tender, nondistended. No hepato-splenomegaly , or palpable masses. No guarding. MUSCULOSKELETAL: Neck with paravertebral muscle tenderness, trapezius muscle with tenderness and spasm. very tense. Decreased ROM of the left shoulder and head movement 2/2 pain. Extremities without clubbing, cyanosis, or edema. No joint tenderness on palpation, no effusion, or edema noted. No calf tenderness. Negative Homans sign bilaterally. NEUROLOGICAL: Awake and alert. Cranial nerves II through XII intact. Motor and sensory grossly within normal limits. Five out of 5 muscle strength in all muscle groups. Normal speech. A/P Assessment and Plan 56-year-old female with a PMH of HTN, ESRD on HD M/W/F, COPD, CHF (Echo 05/11/16 w / EF 55-60%) and GERD who came to the ER w/ complaints of chest pain x2 days Hypocalcemia. S/p parathyroidectomy. Calcium replaced by IV in the ED . Continue to monitor. Also has HD today and Ca was replaced during HD. 09/07 corrected Ca still low will give additional 2gm Ca IV. Continue Ca gluconate PO. Continue to monitor and replace as need. ESRD on HD: M/W/F. Nephrology consulted. Consult Dr Villagran her nephrology doctor who recommends admission in the hospital Chest Pain: Atypical. Troponin negative. EKG reviewed, no acute changes or significant change from previous. Was seen by Dr. Anton cards on last recent admission, patient has normal Nuclear Stress Test. Was cleared by cardiology for DC. CXR unremarkable. Muscle spasm causing neck pain/ decreased shoulder range of motion. Xray reviewed, no fractures. Pain med per pain scale PO and IV. Flexeril po 10 mg q8 hrs. Consult PT/OT COPD: Chronic, stable. Does not appear to be in acute exacerbation. Hypertension/hypotension: Reportedly history of hypertension, however BP is fairly controlled. Will continue to monitor. Rash the upper extremities: Possibly psoriasis. Follow-up with dermatology as outpatient. Continue steroid cream. Wound care. Blood cultures with 1 bottle positive GPC likely contaminant. Morbid Obesity: BMI 51.8. Counseled on weight reduction. 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 Other chronic medical conditions include GERD, Hypothyroidism, MBD, depression, neuropathy: Stable at this time and will continue home medications as indicated. PT consulted/ OT consult Case management consulted. DVT Prophylaxis: Heparin sq/ SCD /TEDs Code Status full Discussed Condition With patient, nurse Janneth Zaragoza MD Sep 07, 2016 10:45
--- NOTE | 2016-09-07 15:42 | HHI.NPPN ---
Subjective History of Present Illness 56 year old female with left shoulder pain ESRD M,W,F Objective Data Data 09/06/16 09/07/16 18:59 06:59 Intake Total 960 ml Output Total 3000 ml Balance -3000 ml 960 ml Intake Oral 960 ml Output Hemodialysis 3000 ml # Voids 0 # Bowel Movements 0 Vital Signs Date Time Temp Pulse Resp B/P Pulse Ox O2 Delivery O2 Flow Rate FiO2 09/07/16 12:00 96.7 90 17 109/57 95 09/07/16 08:00 96.0 80 17 124/58 96 09/07/16 04:00 96.9 80 18 103/60 96 09/06/16 23:22 97.2 82 17 118/64 96 09/06/16 19:12 95 Nasal Cannula 2.00 09/06/16 19:00 97.7 91 16 92/47 93 09/06/16 16:17 97.1 88 19 132/74 97 -: 09/07/16 0524 09/07/16 0524 Microbiology 09/07/16 Aerobic Blood Culture, Received Pending 09/07/16 Anaerobic Blood Culture, Received Pending 09/07/16 Aerobic Blood Culture, Received Pending 09/07/16 Anaerobic Blood Culture, Received Pending Physical Exam General Appearance: Well Developed, Well Nourished Neck Neck Exam: Neck Supple Pulmonary Resp Exam: Clear Bilaterally, Breath Sounds Equal Cardiology CV Exam: Regular, Normal Sinus Rhythm Gastrointestinal/Abdomen GI Exam: Soft, Bowel Sounds Present Extremeties Extremities Exam: Trace Edema (LEFT SHOULDER PAIN) Assessment/Plan Problem List: (1) ESRD (end stage renal disease) Plan: Doing better Lt shoulder pain still present HD in am Calcium improved 7.2 protein corrected (2) Hypocalcemia Plan: on calcium carbonate/Tums (3) Chest pain Plan: Patient has been observed (4) Hypertension Plan: stable blood pressure Problem Qualifiers (1) Chest pain: Qualified Code: R07.9 - Chest pain, unspecified type Frank Villagran MD Sep 07, 2016 15:42
[2016-09-07] MEDS: ATORVASTATIN 40 MG TAB PO SCH (21:01)
[2016-09-08 00:10] VITALS: BP 95/53; PULSE 93; RESP 19; TEMP 98.1; O2SAT 93
[2016-09-08 04:05] VITALS: BP 102/59; PULSE 116; RESP 18; TEMP 97.4; O2SAT 93
[2016-09-08] MEDS: CALCIUM/VITAMIN D 250 MG/125 U TAB PO SCH ×3 (05:45→22:17)
[2016-09-08] MEDS: SUCRALFATE 1 GM TAB PO SCH ×2 (05:45→16:30)
[2016-09-08] MEDS: CALCIUM CARBONATE 1.25 GM (CA 500 MG) TAB PO SCH ×4 (05:45→23:35)
[2016-09-08] MEDS: LEVOTHYROXINE SODIUM 50 MCG TAB PO SCH (05:46)
[2016-09-08] MEDS: CALCIUM CARBONATE 500 MG CHEWABLE TAB CHEW SCH ×5 (05:46→22:17)
[2016-09-08] MEDS: CYCLOBENZAPRINE HCL 10 MG TAB PO SCH ×3 (05:46→22:17)
[2016-09-08] MEDS: HYDROCORTISONE 1% LOTN 120 ML BTL TOPICAL SCH ×3 (05:47→23:49)
[2016-09-08] MEDS: NYSTATIN 100,000 U/GM PWD 15 GM BTL TOPICAL SCH ×3 (05:47→23:49)
[2016-09-08 08:00] VITALS: BP 95/46; PULSE 99; RESP 20; TEMP 97.5; O2SAT 94
[2016-09-08] MEDS: ASPIRIN EC 81 MG TABEC PO SCH (09:14)
[2016-09-08] MEDS: buPROPion HCL 75 MG TAB PO SCH (09:14)
[2016-09-08] MEDS: CALCITRIOL 0.25 MCG CAP PO SCH (09:14)
[2016-09-08] MEDS: SODIUM CHLORIDE 0.9% FLUSH 5 ML FLUSH FLUSH SCH ×2 (09:15→21:00)
[2016-09-08] MEDS: PANTOPRAZOLE SOD 40 MG DELAYED RELEASE TAB PO SCH (09:15)
[2016-09-08] MEDS: GABAPENTIN 100 MG CAP PO SCH ×3 (09:15→17:39)
[2016-09-08] MEDS: HEPARIN SODIUM - SQ 10,000 UNITS/ML VIAL SQ SCH ×2 (12:00→23:34)
[2016-09-08 12:27] VITALS: O2SAT 94
--- NOTE | 2016-09-08 13:16 | HHI.NPPN ---
Subjective History of Present Illness 56 year old female with left shoulder pain ESRD M,W,F Objective Data Data 09/07/16 09/08/16 18:59 06:59 Intake Total 720 ml 720 ml Balance 720 ml 720 ml Intake Oral 720 ml 720 ml # Voids 0 0 # Bowel Movements 0 0 Vital Signs Date Time Temp Pulse Resp B/P Pulse Ox O2 Delivery O2 Flow Rate FiO2 09/08/16 12:27 94 Nasal Cannula 2.00 09/08/16 08:00 97.5 99 20 95/46 94 09/08/16 04:05 97.4 116 18 102/59 93 09/08/16 00:10 98.1 93 19 95/53 93 09/07/16 21:00 93 Nasal Cannula 2.00 09/07/16 21:00 99 09/07/16 20:05 99.0 103 19 115/57 93 09/07/16 18:27 92 Nasal Cannula 1.00 09/07/16 16:00 97.5 99 17 111/66 92 -: 09/07/16 0524 09/07/16 0524 Microbiology 09/07/16 Aerobic Blood Culture - Preliminary, Resulted NO GROWTH IN 1 DAY 09/07/16 Anaerobic Blood Culture - Final, Resulted ONLY AEROBIC CULTURE ORDERED 09/07/16 Aerobic Blood Culture - Preliminary, Resulted NO GROWTH IN 1 DAY 09/07/16 Anaerobic Blood Culture - Final, Resulted ONLY AEROBIC CULTURE ORDERED Physical Exam General Appearance: Well Developed, Well Nourished Neck Neck Exam: Neck Supple Pulmonary Resp Exam: Clear Bilaterally, Breath Sounds Equal Cardiology CV Exam: Regular, Normal Sinus Rhythm Gastrointestinal/Abdomen GI Exam: Soft, Bowel Sounds Present Extremeties Extremities Exam: Trace Edema (LEFT SHOULDER PAIN) Assessment/Plan Problem List: (1) ESRD (end stage renal disease) Plan: Doing better Lt shoulder pain seen during HD UF 2 L BP lower, 3K bath Calcium improved 7.2 protein corrected (2) Hypocalcemia Plan: on calcium carbonate/Tums (3) Chest pain Plan: Patient has been observed (4) Hypertension Plan: stable blood pressure Problem Qualifiers (1) Chest pain: Qualified Code: R07.9 - Chest pain, unspecified type Frank Villagran MD Sep 08, 2016 13:16
[2016-09-08] MEDS: HEPARIN SODIUM - IV 10,000 UNITS/10 ML VIAL PRN (13:25)
[2016-09-08] MEDS: ALBUMIN HUMAN 25% 25 GM/100 ML BAGP IV PRN (13:26)
[2016-09-08] MEDS: GENTAMICIN SULFATE (DIALYSIS USE ONLY) 20 MG/2 ML VIAL IV PRN (13:26)
--- NOTE | 2016-09-08 15:12 | HHI.PR ---
Subjective Remarks Feels tired and sleepy. Still with pain in her neck/L shoulder, improving with pain meds and muscle relaxant. No fevers or chills. Blood cx positive might be contaminant ut will ask ID specialist on consult. Afebrile and no leukocytosis. Objective Vitals Vital Signs Date Time Temp Pulse Resp B/P Pulse Ox O2 Delivery O2 Flow Rate FiO2 09/08/16 12:27 94 Nasal Cannula 2.00 09/08/16 09:00 96 2.00 09/08/16 08:00 97.5 99 20 95/46 94 09/08/16 04:05 97.4 116 18 102/59 93 09/08/16 00:10 98.1 93 19 95/53 93 09/07/16 21:00 93 Nasal Cannula 2.00 09/07/16 21:00 99 09/07/16 20:05 99.0 103 19 115/57 93 09/07/16 18:27 92 Nasal Cannula 1.00 09/07/16 16:00 97.5 99 17 111/66 92 I/O 09/07/16 09/07/16 09/07/16 09/08/16 09/08/16 09/08/16 07:00 15:00 23:00 07:00 15:00 23:00 Intake Total 480 ml 720 ml 480 ml 240 ml Balance 480 ml 720 ml 480 ml 240 ml Intake Oral 480 ml 720 ml 480 ml 240 ml # Voids 0 0 0 0 # Bowel Movements 0 0 0 0 Result Diagram: 09/07/16 0524 09/07/16 0524 Imaging Last Impressions Chest X-Ray 09/06/16 0809 Signed Impressions: Service Date/Time: Tuesday, September 06, 2016 08:52 - CONCLUSION: No acute disease. No significant change has occurred. Blas Butler MD Clavicle X-Ray 09/06/16 0000 Signed Impressions: Service Date/Time: Tuesday, September 06, 2016 08:55 - CONCLUSION: Vascular stents stable and unchanged in place. Otherwise negative Blas Butler MD Objective Remarks GENERAL: This is a very pleasant 56 yo morbidly obese AA female, well-nourished , well-developed patient, in no apparent distress. SKIN: Very dry skin with multiple circular lesions. Rash on groin area. HEAD: Atraumatic. Normocephalic. No temporal or scalp tenderness. EYES: Pupils equal round and reactive. Extraocular motions intact. No scleral icterus. No injection or drainage. ENT: Nose without bleeding, purulent drainage or septal hematoma. Throat without erythema, tonsillar hypertrophy or exudate. Uvula midline. Airway patent. NECK: Trachea midline. No JVD or lymphadenopathy. Supple, nontender, no meningeal signs. CARDIOVASCULAR: Regular rate and rhythm without murmurs, gallops, or rubs. RESPIRATORY: Clear to auscultation. Breath sounds equal bilaterally. No wheezes , rales, or rhonchi. GASTROINTESTINAL: Abdomen soft, non-tender, nondistended. No hepato-splenomegaly , or palpable masses. No guarding. MUSCULOSKELETAL: Neck with paravertebral muscle tenderness, trapezius muscle with tenderness and spasm. very tense. Decreased ROM of the left shoulder and head movement 2/2 pain. Extremities without clubbing, cyanosis, or edema. No joint tenderness on palpation, no effusion, or edema noted. No calf tenderness. Negative Homans sign bilaterally. NEUROLOGICAL: Awake and alert. Cranial nerves II through XII intact. Motor and sensory grossly within normal limits. Five out of 5 muscle strength in all muscle groups. Normal speech. A/P Assessment and Plan 56-year-old female with a PMH of HTN, ESRD on HD M/W/F, COPD, CHF (Echo 05/11/16 w / EF 55-60%) and GERD who came to the ER w/ complaints of chest pain x2 days Hypocalcemia. S/p parathyroidectomy. Calcium replaced by IV in the ED . Continue to monitor. Also has HD today and Ca was replaced during HD. 09/07 corrected Ca still low will give additional 2gm Ca IV. Continue Ca gluconate PO. Continue to monitor and replace as need. ESRD on HD: M/W/F. Nephrology consulted. Consult Dr Villagran her nephrology doctor who recommends admission in the hospital Chest Pain: Atypical. Troponin negative. EKG reviewed, no acute changes or significant change from previous. Was seen by Dr. Anton cards on last recent admission, patient has normal Nuclear Stress Test. Was cleared by cardiology for DC. CXR unremarkable. Muscle spasm causing neck pain/ decreased shoulder range of motion. Xray reviewed, no fractures. Pain med per pain scale PO and IV. Flexeril po 10 mg q8 hrs. Consult PT/OT COPD: Chronic, stable. Does not appear to be in acute exacerbation. Hypertension/hypotension: Reportedly history of hypertension, however BP is fairly controlled. Will continue to monitor. Rash the upper extremities: Possibly psoriasis. Follow-up with dermatology as outpatient. Continue steroid cream. Wound care. Blood cultures with 1 bottle positive GPC likely contaminant. Blood cx positive might be contaminant, will ask ID specialist on consult. Afebrile and no leukocytosis, no tachycardia. Morbid Obesity: BMI 51.8. Counseled on weight reduction. 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 Other chronic medical conditions include GERD, Hypothyroidism, MBD, depression, neuropathy: Stable at this time and will continue home medications as indicated. PT consulted/ OT consult Case management consulted. DVT Prophylaxis: Heparin sq/ SCD /TEDs Code Status full Discussed Condition With patient, nurse Discharge Planning pending improvement, clearance form consultants Janneth Zaragoza MD Sep 08, 2016 15:12
[2016-09-08] MEDS ORDERED: VANCOMYCIN INJ 1,000 MG in SODIUM CHLOR 0.9% 250 ML INJ 250 ML IV SCH (15:15)
[2016-09-08] MEDS ORDERED: Vancomycin Consult Pharmacy 1 EA OTHER SCH (15:15)
[2016-09-08 16:00] VITALS: BP 107/62; PULSE 96; RESP 21; TEMP 96.8; O2SAT 95
[2016-09-08] MEDS: ACETAMINOPHEN/HYDROcodone 325 MG/5 MG TAB PO PRN ×2 (16:39→20:56)
[2016-09-08] MEDS ORDERED: VANCOMYCIN INJ 1,500 MG in SODIUM CHLORID 0.9% 500 ML INJ 500 ML IV ONE (17:00)
[2016-09-08 17:15] LABS: AUTOMATED NEUTROPHIL # 8.7 TH/MM3 (1.8-7.7); BASOPHIL % 0.1 % (0.0-2.0); EOSINOPHIL # 0.5 TH/MM3 (0-0.4); EOSINOPHIL % 4.9 % (0.0-4.0); HEMATOCRIT 36.3 % (35.0-46.0); HEMO FLAGS DIFF FINAL; LYMPH % 4.8 % (9.0-44.0); LYMPHOCYTE # 0.5 TH/MM3 (1.0-4.8); MEAN CELL VOLUME 92.2 FL (80.0-100.0); MEAN CORPUSCULAR HEMOGLOBIN 29.2 PG (27.0-34.0); MEAN CORPUSCULAR HGB CONC 31.7 % (32.0-36.0); MONO % 8.3 % (0.0-8.0); NEUT % 81.9 % (16.0-70.0); PLATELET COUNT 229 TH/MM3 (150-450); RED BLOOD COUNT 3.94 MIL/MM3 (4.00-5.30); RED CELL DISTRIBUTION WIDTH 14.7 % (11.6-17.2); WHITE BLOOD COUNT 10.6 TH/MM3 (4.0-11.0)
[2016-09-08 18:02] LABS: BICARBONATE 30.9 MEQ/L (21.0-32.0); POTASSIUM 4.7 MEQ/L (3.5-5.1)
--- NOTE | 2016-09-08 18:28 | PD.CONS ---
History of Present Illness Service Infectious disease Consult Requested By Dr Lynsey Zaragoza Reason for Consult Evaluate patient with positive blood culture, recommend a shunt on antibiotics Primary Care Physician No Primary Care Physician Diagnoses: History of Present Illness Patient seen and examined. Records reviewed. Patient is a 56-year-old female, presented to the hospital complaining of several day history of chest pain. When I asked her where her pain and she points to the upper sternal region as well as the clavicular region. There's been no fever or chills or sweats. She has pain in the area when she moves her left upper extremity. She denies any cough or congestion, no GI or abdominal pain. Since admission she has not been febrile. 2 blood cultures were done and labeled peripherally, and they are now growing staph epidermidis. Patient has end-stage renal disease, and has had problem with venous access. She's had multiple AV fistula and AV graft that thrombosed or ended up getting a infected requiring removal. She currently has a right groin Vas-Cath which patient is unsure as to when it was originally inserted, but she claims that it has been changed recently. According to the notes it is currently the only venous access that is open for her to have a dialysis catheter. Patient continues to complain of pain in her upper chest and clavicular region on the left side. She just came back from dialysis and feels very tired and apparently attributes it to the pain medication that she just received. She has had repeat blood cultures that are negative so far. Infectious disease consultation has been requested to evaluate the patient. Review of Systems Constitutional: COMPLAINS OF: Fatigue, DENIES: Fever, Chills, Night Sweats Eyes: DENIES: Eye pain Ears, nose, mouth, throat: DENIES: Nasal discharge, Oral lesions, Throat pain, Ear Pain, Sinus Pain Respiratory: DENIES: Cough, Shortness of breath Cardiovascular: COMPLAINS OF: Chest pain, DENIES: Palpitations Gastrointestinal: DENIES: Abdominal pain, Diarrhea, Nausea, Vomiting Musculoskeletal: COMPLAINS OF: Joint pain, Muscle aches Integumentary: COMPLAINS OF: Rash Neurologic: DENIES: Headache Psychiatric: COMPLAINS OF: Anxiety Past Family Social History Allergies: Coded Allergies: Levaquin (Unverified Allergy, Severe, 09/06/16) ANAPHYLAXIS *MDRO Multi-Drug Resistant Organism (Verified Adverse Reaction, Unknown, Cleared, 09/07/16) MRSA (wound) - 04/2011, (blood) - 10/2011 MRSA PCR Screen negative 02/17/15 and 02/19/15. 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 Previous episodes of sepsis related to infected venous access or AV graft, AV fistula Past Surgical History Parathyroidectomy Appendectomy Partial hysterectomy Both big toe amputation Multiple surgeries on the right hand from a spider bite Cholecystectomy Multiple AV graft placement and removal The most recent surgery was in her right upper extremity and had removal of the AV graft last April 2016 Active Ordered Medications Tylenol [place] Albumin Aspirin Lipitor Dulcolax Wellbutrin Rocaltrol Calcium Clonidine Flexeril Benadryl Neupogen Neurontin Heparin Synthroid MOM Mannitol Morphine SL NTG Zofran Protonix Compazine Senokot Carafate Restoril Vancomycin Social History Ex-smoker Denies alcohol abuse Denies illicit drug use Physical Exam Vital Signs Vital Signs Date Time Temp Pulse Resp B/P Pulse Ox O2 Delivery O2 Flow Rate FiO2 09/08/16 16:00 96.8 96 21 107/62 95 09/08/16 12:27 94 Nasal Cannula 2.00 09/08/16 09:00 96 2.00 09/08/16 08:00 97.5 99 20 95/46 94 09/08/16 04:05 97.4 116 18 102/59 93 09/08/16 00:10 98.1 93 19 95/53 93 09/07/16 21:00 93 Nasal Cannula 2.00 09/07/16 21:00 99 09/07/16 20:05 99.0 103 19 115/57 93 09/07/16 18:27 92 Nasal Cannula 1.00 Physical Exam GENERAL: This is an obese, well-developed female, awake and alert, looks chronically ill appearing, in no apparent distress. SKIN: very dry skin and desquamating, generalized. HEAD: Atraumatic. Normocephalic. No temporal or scalp tenderness. EYES: [place] conjunctivae, has puffiness around her eyes. Pupils equal round and reactive. Extraocular motions intact. No scleral icterus. No injection or drainage. ENT: Nose without bleeding, or purulent drainage. Moist oral mucosa. Throat without erythema, or exudate. Uvula midline. Airway patent. NECK: Trachea midline. No JVD or lymphadenopathy. Supple, nontender, no meningeal signs. CARDIOVASCULAR: Regular rate and rhythm without murmurs, gallops, or rubs. RESPIRATORY: Clear to auscultation. Breath sounds equal bilaterally. No wheezes , rales, or rhonchi. Decreased breath sounds at the bases. She has tenderness over her L SC joint and look slightly more swollen compared to the R, no redness noted or induration seen. Has pain when I moved her RUE GASTROINTESTINAL: Abdomen soft, obese, non-tender, nondistended. Bowel sounds are present and normoactive. No hepato-splenomegaly, or palpable masses. No guarding. MUSCULOSKELETAL: Extremities without clubbing, cyanosis, or edema. No joint tenderness, effusion, or edema noted. Has very moist areas in her groiun with maceration of the skin. No calf tenderness. Negative Homans sign bilaterally. the HD cath has dressing with some moisture around it and desquamated skin, no purulence noted at the site. Multiple scars in her BUE from previous surgeries NEUROLOGICAL: Awake and alert. Cranial nerves II through XII intact. Motor and sensory grossly within normal limits. Five out of 5 muscle strength in all muscle groups. Normal speech. PSYCH: Looks dishelved, calm and cooperative LINE: R groin permacath, currently no drainage noted Laboratory Laboratory Tests Test 09/08/16 16:46 White Blood Count 10.6 Red Blood Count 3.94 Hemoglobin 11.5 Hematocrit 36.3 Mean Corpuscular Volume 92.2 Mean Corpuscular Hemoglobin 29.2 Mean Corpuscular Hemoglobin 31.7 Concent Red Cell Distribution Width 14.7 Platelet Count 229 Mean Platelet Volume 8.1 Neutrophils (%) (Auto) 81.9 Lymphocytes (%) (Auto) 4.8 Monocytes (%) (Auto) 8.3 Eosinophils (%) (Auto) 4.9 Basophils (%) (Auto) 0.1 Neutrophils # (Auto) 8.7 Lymphocytes # (Auto) 0.5 Monocytes # (Auto) 0.9 Eosinophils # (Auto) 0.5 Basophils # (Auto) 0.0 CBC Comment DIFF FINAL Differential Comment Sodium Level 136 Potassium Level 4.7 Chloride Level 96 Carbon Dioxide Level 30.9 Anion Gap 9 Blood Urea Nitrogen 36 Creatinine 6.27 Estimat Glomerular Filtration 8 Rate Random Glucose 121 Calcium Level 7.4 Date/Time Procedure Status Source Growth 09/07/16 15:00 Aerobic Blood Culture - Preliminary Resulted Blood Peripheral NO GROWTH IN 1 DAY 09/07/16 15:00 Anaerobic Blood Culture - Final Resulted Blood Peripheral ONLY AEROBIC CULTURE ORDERED Result Diagram: 09/08/16 1646 09/08/16 1646 Imaging RADIOLOGY STUDIES/FILMS REVIEWED Chest X-Ray 09/06/16 0809 Signed Impressions: Service Date/Time: Tuesday, September 06, 2016 08:52 - CONCLUSION: No acute disease. No significant change has occurred. Blas Butler MD Clavicle X-Ray 09/06/16 0000 Signed Impressions: Service Date/Time: Tuesday, September 06, 2016 08:55 - CONCLUSION: Vascular stents stable and unchanged in place. Otherwise negative Blas Butler MD Assessment and Plan Assessment and Plan IMPRESSION Staph epi bacteremia, very worrisome for infection of her permacath - her skin condition, plus location of her cath increases the likelihood of acquiring infection - however accdg to notes, this is the only viable option for her HD cath Pain in chest and L SC joint, ?infected joint from hematogenous spread ESRD on HD Obesity Generalized desquamation of the skin RECOMMENDATION Continue IV vanco - give at least 4-6 weeks and can be given with HD Will CT chest with bone windows to looks specifically at the LSC joint and looks for embolic lesions in lungs Follow C/S Give 4-6 weeks of IV Abx from last (+) BC Monitor progress I will follow along with you Thank you for this consultation Safia Martinez MD Sep 08, 2016 18:28
[2016-09-08 20:00] VITALS: BP 116/80; PULSE 98; RESP 16; TEMP 97.6; O2SAT 95
[2016-09-08] MEDS ORDERED: CALCIUM GLUCONATE INJ 2 GM in DEXTROSE 5% IN WATER 100ML INJ 100 ML IV ONE ×2 (20:00)
--- NOTE | 2016-09-08 20:23 | RADRPT ---
EXAM DATE/TIME: 09/08/2016 19:58 [facility] COMPARISON: CLAVICLE LEFT, September 06, 2016, 8:55. INDICATIONS : Evaluate left sternoclavicular joint and for septic emobli. RADIATION DOSE: 15.69 CTDIvol (mGy) MEDICAL HISTORY : Hypertension. Congestive heart failure. Diabetes mellitus type 2. SURGICAL HISTORY : None. ENCOUNTER: Initial ACUITY: 1 day PAIN SCALE: 0/10 LOCATION: chest TECHNIQUE: Volumetric scanning of the chest was performed. Using automated exposure control and adjustment of t he mA and/or kV according to patient size, radiation dose was kept as low as reasonably achievable to obtain optimal diagnostic quality images. FINDINGS: LUNGS: There is minimal patchy densities in the upper lobes. No cavitary densities. There is also some sligh t atelectasis lower lobes greater in the left lower lobe.. No concerning pulmonary nodule is visuali zed. PLEURAE: There is no pleural thickening or pleural effusion. MEDIASTINUM: The heart and great vessels demonstrate no acute abnormality. There is no mediastinal or hilar lymph adenopathy. Coronary artery calcifications. AXILLAE: Within normal limits. No lymphadenopathy. MUSCULOSKELETAL: Increased sclerosis throughout the axial skeleton. MISCELLANEOUS: The visualized upper abdominal organs demonstrate no acute abnormality. CONCLUSION: 1. Minimal patchy densities in the upper lobes nonspecific but could be infectious or inflammatory. 2. No cavitary lesion to suggest septic emboli. 3. Left sternoclavicular joint appears unremarkable. 4. Increased sclerosis throughout the axial skeleton concerning for diffuse systemic process/metastat ic disease. Goyo Hahn MD on September 08, 2016 at 20:16 Board Certified Radiologist. This report was verified electronically.
[2016-09-08] MEDS: ATORVASTATIN 40 MG TAB PO SCH (20:52)
[2016-09-09] VITALS (9 sets, daily range): BP systolic 98–118; BP diastolic 57–77; PULSE 78–108; RESP 16–18; TEMP 96–97.9; O2SAT 93–97
[2016-09-09] MEDS: ACETAMINOPHEN/HYDROcodone 325 MG/10 MG TAB PO PRN ×3 (00:51→14:24)
[2016-09-09 05:42] LABS: BASOPHIL % 0.4 % (0.0-2.0); EOSINOPHIL # 0.7 TH/MM3 (0-0.4); EOSINOPHIL % 6.5 % (0.0-4.0); HEMATOCRIT 35.6 % (35.0-46.0); HEMO FLAGS DIFF FINAL; LYMPH % 4.3 % (9.0-44.0); LYMPHOCYTE # 0.4 TH/MM3 (1.0-4.8); MEAN CELL VOLUME 93.3 FL (80.0-100.0); MEAN CORPUSCULAR HEMOGLOBIN 29.1 PG (27.0-34.0); MEAN CORPUSCULAR HGB CONC 31.2 % (32.0-36.0); MONO % 8.9 % (0.0-8.0); NEUT % 79.9 % (16.0-70.0); PLATELET COUNT 235 TH/MM3 (150-450); RED BLOOD COUNT 3.81 MIL/MM3 (4.00-5.30); RED CELL DISTRIBUTION WIDTH 14.6 % (11.6-17.2); WHITE BLOOD COUNT 10.1 TH/MM3 (4.0-11.0)
[2016-09-09] MEDS: NYSTATIN 100,000 U/GM PWD 15 GM BTL TOPICAL SCH ×2 (06:00→13:49)
[2016-09-09] MEDS: HYDROCORTISONE 1% LOTN 120 ML BTL TOPICAL SCH ×2 (06:00→13:49)
[2016-09-09 06:12] LABS: BICARBONATE 26.9 MEQ/L (21.0-32.0); POTASSIUM 5.7 MEQ/L (3.5-5.1)
[2016-09-09] MEDS: CYCLOBENZAPRINE HCL 10 MG TAB PO SCH ×3 (06:31→21:36)
[2016-09-09] MEDS: CALCIUM/VITAMIN D 250 MG/125 U TAB PO SCH ×3 (06:32→21:36)
[2016-09-09] MEDS: CALCIUM CARBONATE 500 MG CHEWABLE TAB CHEW SCH ×5 (06:32→21:36)
[2016-09-09] MEDS: CALCIUM CARBONATE 1.25 GM (CA 500 MG) TAB PO SCH ×3 (06:32→17:19)
[2016-09-09] MEDS: LEVOTHYROXINE SODIUM 50 MCG TAB PO SCH (06:32)
[2016-09-09] MEDS: SUCRALFATE 1 GM TAB PO SCH ×2 (06:32→17:18)
[2016-09-09] MEDS: CALCITRIOL 0.25 MCG CAP PO SCH (08:30)
[2016-09-09] MEDS: ASPIRIN EC 81 MG TABEC PO SCH (08:31)
[2016-09-09] MEDS: SODIUM CHLORIDE 0.9% FLUSH 5 ML FLUSH FLUSH SCH ×2 (08:31→21:37)
[2016-09-09] MEDS: GABAPENTIN 100 MG CAP PO SCH ×3 (08:31→17:18)
[2016-09-09] MEDS: PANTOPRAZOLE SOD 40 MG DELAYED RELEASE TAB PO SCH (08:31)
[2016-09-09] MEDS: buPROPion HCL 75 MG TAB PO SCH (08:31)
--- NOTE | 2016-09-09 11:14 | HHI.PR ---
Subjective Remarks Says she feels tired. Says she still has pain in her left shoulder. No neck pain or spasm, says muscle relaxant works. No fevers or chills. No n/v/d/c. Objective Vitals Vital Signs Date Time Temp Pulse Resp B/P Pulse Ox O2 Delivery O2 Flow Rate FiO2 09/09/16 08:00 97.8 105 18 100/57 94 09/09/16 04:00 97.0 103 16 102/59 97 09/09/16 00:00 96.9 104 17 118/58 95 09/08/16 20:00 97.6 98 16 116/80 95 09/08/16 16:00 96.8 96 21 107/62 95 09/08/16 12:27 94 Nasal Cannula 2.00 I/O 09/08/16 09/08/16 09/08/16 09/09/16 09/09/16 09/09/16 06:59 14:59 22:59 06:59 14:59 22:59 Intake Total 240 ml 480 ml 360 ml 240 ml Output Total 3000 ml Balance 240 ml 480 ml -2640 ml 240 ml Intake Oral 240 ml 480 ml 360 ml 240 ml Output Hemodialysis 3000 ml # Voids 0 0 0 0 # Bowel Movements 0 0 0 0 Result Diagram: 09/09/16 0515 09/09/16 0515 Imaging Last Impressions Chest CT 09/08/16 0000 Signed Impressions: Service Date/Time: Thursday, September 08, 2016 19:58 - CONCLUSION: 1. Minimal patchy densities in the upper lobes nonspecific but could be infectious or inflammatory. 2. No cavitary lesion to suggest septic emboli. 3. Left sternoclavicular joint appears unremarkable. 4. Increased sclerosis throughout the axial skeleton concerning for diffuse systemic process/metastatic disease. Goyo Hahn MD Chest X-Ray 09/06/16 0809 Signed Impressions: Service Date/Time: Tuesday, September 06, 2016 08:52 - CONCLUSION: No acute disease. No significant change has occurred. Blas Butler MD Clavicle X-Ray 09/06/16 0000 Signed Impressions: Service Date/Time: Tuesday, September 06, 2016 08:55 - CONCLUSION: Vascular stents stable and unchanged in place. Otherwise negative Blas Butler MD Objective Remarks GENERAL: This is a very pleasant 56 yo morbidly obese AA female, well-nourished , well-developed patient, in no apparent distress. SKIN: Very dry skin with multiple circular lesions. Rash on groin area. HEAD: Atraumatic. Normocephalic. No temporal or scalp tenderness. EYES: Pupils equal round and reactive. Extraocular motions intact. No scleral icterus. No injection or drainage. ENT: Nose without bleeding, purulent drainage or septal hematoma. Throat without erythema, tonsillar hypertrophy or exudate. Uvula midline. Airway patent. NECK: Trachea midline. No JVD or lymphadenopathy. Supple, nontender, no meningeal signs. CARDIOVASCULAR: Regular rate and rhythm without murmurs, gallops, or rubs. RESPIRATORY: Clear to auscultation. Breath sounds equal bilaterally. No wheezes , rales, or rhonchi. GASTROINTESTINAL: Abdomen soft, non-tender, nondistended. No hepato-splenomegaly , or palpable masses. No guarding. MUSCULOSKELETAL: Neck with paravertebral muscle tenderness, trapezius muscle with tenderness and spasm. very tense. Decreased ROM of the left shoulder and head movement 2/2 pain. Extremities without clubbing, cyanosis, or edema. No joint tenderness on palpation, no effusion, or edema noted. No calf tenderness. Negative Homans sign bilaterally. NEUROLOGICAL: Awake and alert. Cranial nerves II through XII intact. Motor and sensory grossly within normal limits. Five out of 5 muscle strength in all muscle groups. Normal speech. A/P Assessment and Plan 56-year-old female with a PMH of HTN, ESRD on HD M/W/F, COPD, CHF (Echo 05/11/16 w / EF 55-60%) and GERD who came to the ER w/ complaints of chest pain x2 days Hypocalcemia. S/p parathyroidectomy. Calcium replaced by IV in the ED . Continue to monitor. Also has HD today and Ca was replaced during HD. 09/07 corrected Ca still low will give additional 2gm Ca IV. Continue Ca gluconate PO. Continue to monitor and replace as need. Neck muscle spasm and left shoulder pain. X ray negative for fx. Neck muscle spasm improved with muscle relaxant however she has bacteremia and there is questionable L SC joint infection Staph epi bacteremia, very worrisome for infection of her permacath / ? L SC joint infection Her skin condition, plus location of her cath increases the likelihood of acquiring infection. However it seems this is the only viable option for her HD cath Pain in chest and L SC joint, ?infected joint from hematogenous spread Infectious disease specialist was consulted, Dr Martinez following, appreciate recommendations. Started IV vanco - give at least 4-6 weeks and can be given with HD Will CT chest with bone windows to looks specifically at the LSC joint and looks for embolic lesions in lungs Follow C/S Give 4-6 weeks of IV Abx from last (+) BC Monitor progress ESRD on HD: M/W/F. Nephrology consulted. Consult Dr Villagran her nephrology doctor who recommends admission in the hospital Chest Pain: Atypical. Troponin negative. EKG reviewed, no acute changes or significant change from previous. Was seen by Dr. Anton cards on last recent admission, patient has normal Nuclear Stress Test. Was cleared by cardiology for DC. CXR unremarkable. Muscle spasm causing neck pain/ decreased shoulder range of motion. Xray reviewed, no fractures. Pain med per pain scale PO and IV. Flexeril po 10 mg q8 hrs. Consult PT/OT COPD: Chronic, stable. Does not appear to be in acute exacerbation. Hypertension/hypotension: Reportedly history of hypertension, however BP is fairly controlled. Will continue to monitor. Rash the upper extremities: Possibly psoriasis. Follow-up with dermatology as outpatient. Continue steroid cream. Wound care. Blood cultures with 1 bottle positive GPC likely contaminant. Blood cx positive might be contaminant, will ask ID specialist on consult. Afebrile and no leukocytosis, no tachycardia. Morbid Obesity: BMI 51.8. Counseled on weight reduction. Outpatient f/up with PCP/head irrigator. Other chronic medical conditions include GERD, Hypothyroidism, MBD, depression, neuropathy: Stable at this time and will continue home medications as indicated. PT consulted/ OT consult Case management consulted. DVT Prophylaxis: Heparin sq/ SCD /TEDs Code Status full Discussed Condition With patient, nurse Discharge Planning pending improvement, clearance form consultants Janneth Zaragoza MD Sep 09, 2016 11:14
[2016-09-09] MEDS: HEPARIN SODIUM - SQ 10,000 UNITS/ML VIAL SQ SCH (13:48)
--- NOTE | 2016-09-09 16:06 | HHI.NPPN ---
Subjective History of Present Illness 56 year old female with left shoulder pain ESRD M,W,F Objective Data Data 09/08/16 09/09/16 19:00 07:00 Intake Total 480 ml 600 ml Output Total 3000 ml Balance -2520 ml 600 ml Intake Oral 480 ml 600 ml Output Hemodialysis 3000 ml # Voids 0 0 # Bowel Movements 0 0 Vital Signs Date Time Temp Pulse Resp B/P Pulse Ox O2 Delivery O2 Flow Rate FiO2 09/09/16 12:00 96.3 103 18 98/60 95 09/09/16 11:33 94 Nasal Cannula 3.00 09/09/16 08:00 97.8 105 18 100/57 94 09/09/16 04:00 97.0 103 16 102/59 97 09/09/16 00:00 96.9 104 17 118/58 95 09/08/16 20:00 97.6 98 16 116/80 95 -: 09/09/16 0515 09/09/16 0515 Physical Exam General Appearance: Well Developed, Well Nourished Neck Neck Exam: Neck Supple Pulmonary Resp Exam: Clear Bilaterally, Breath Sounds Equal Cardiology CV Exam: Regular, Normal Sinus Rhythm Gastrointestinal/Abdomen GI Exam: Soft, Bowel Sounds Present Extremeties Extremities Exam: Trace Edema (LEFT SHOULDER PAIN) Assessment/Plan Problem List: (1) ESRD (end stage renal disease) Plan: Doing better Lt shoulder pain Staph Epi on Vanco can be arranged as out pt with HD (2) Hypocalcemia Plan: on calcium carbonate/Tums (3) Chest pain Plan: Patient has been observed (4) Hypertension Plan: stable blood pressure Problem Qualifiers (1) Chest pain: Qualified Code: R07.9 - Chest pain, unspecified type Frank Villagran MD Sep 09, 2016 16:06
[2016-09-09] MEDS ORDERED: EUCERIN CREAM 120 GM JAR TOPICAL PRN (17:00)
[2016-09-09] MEDS: ATORVASTATIN 40 MG TAB PO SCH (21:36)
[2016-09-10] VITALS (9 sets, daily range): BP systolic 106–145; BP diastolic 61–80; PULSE 100–111; RESP 16–18; TEMP 97–98.3; O2SAT 94–98
[2016-09-10] MEDS: CALCIUM CARBONATE 1.25 GM (CA 500 MG) TAB PO SCH ×4 (00:46→18:12)
[2016-09-10] MEDS: HEPARIN SODIUM - SQ 10,000 UNITS/ML VIAL SQ SCH ×2 (00:46→13:36)
[2016-09-10] MEDS: NYSTATIN 100,000 U/GM PWD 15 GM BTL TOPICAL SCH ×3 (00:47→13:37)
[2016-09-10] MEDS: HYDROCORTISONE 1% LOTN 120 ML BTL TOPICAL SCH ×3 (00:47→13:37)
[2016-09-10] MEDS: ACETAMINOPHEN/HYDROcodone 325 MG/5 MG TAB PO PRN (06:20)
[2016-09-10] MEDS: CALCIUM CARBONATE 500 MG CHEWABLE TAB CHEW SCH ×4 (06:21→18:12)
[2016-09-10] MEDS: CALCIUM/VITAMIN D 250 MG/125 U TAB PO SCH ×2 (06:21→13:36)
[2016-09-10] MEDS: SUCRALFATE 1 GM TAB PO SCH ×2 (06:21→16:00)
[2016-09-10] MEDS: CYCLOBENZAPRINE HCL 10 MG TAB PO SCH ×2 (06:21→13:36)
[2016-09-10] MEDS: LEVOTHYROXINE SODIUM 50 MCG TAB PO SCH (06:23)
[2016-09-10] MEDS: PANTOPRAZOLE SOD 40 MG DELAYED RELEASE TAB PO SCH (09:23)
[2016-09-10] MEDS: SODIUM CHLORIDE 0.9% FLUSH 5 ML FLUSH FLUSH SCH (09:23)
[2016-09-10] MEDS: buPROPion HCL 75 MG TAB PO SCH (09:23)
[2016-09-10] MEDS: GABAPENTIN 100 MG CAP PO SCH ×3 (09:23→18:12)
[2016-09-10] MEDS: CALCITRIOL 0.25 MCG CAP PO SCH (09:23)
[2016-09-10] MEDS: ASPIRIN EC 81 MG TABEC PO SCH (09:23)
[2016-09-10 09:25] LABS: AUTOMATED NEUTROPHIL # 8.8 TH/MM3 (1.8-7.7); BASOPHIL % 0.3 % (0.0-2.0); EOSINOPHIL # 0.7 TH/MM3 (0-0.4); EOSINOPHIL % 5.9 % (0.0-4.0); HEMATOCRIT 37.1 % (35.0-46.0); HEMO FLAGS DIFF FINAL; LYMPH % 5.3 % (9.0-44.0); LYMPHOCYTE # 0.6 TH/MM3 (1.0-4.8); MEAN CELL VOLUME 93.1 FL (80.0-100.0); MEAN CORPUSCULAR HEMOGLOBIN 28.9 PG (27.0-34.0); MONO % 9.1 % (0.0-8.0); NEUT % 79.4 % (16.0-70.0); PLATELET COUNT 278 TH/MM3 (150-450); RED BLOOD COUNT 3.98 MIL/MM3 (4.00-5.30); RED CELL DISTRIBUTION WIDTH 14.8 % (11.6-17.2); WHITE BLOOD COUNT 11.1 TH/MM3 (4.0-11.0)
[2016-09-10 09:32] LABS: POTASSIUM 6.3 MEQ/L (3.5-5.1)
[2016-09-10 10:13] LABS: CALCIUM-PROTEIN CORRECTED 6.9 MG/DL (8.5-10.1)
--- NOTE | 2016-09-10 11:02 | HHI.PR ---
Subjective Remarks Critical Ca level, discussed with the nurse. Will give extra 2gm Ca gluconate IV , continue PO supplement. Patient still with shoulder pain. She is sleepy and says she feels tired. No fever or chills. No n/v/d/c. Objective Vitals Vital Signs Date Time Temp Pulse Resp B/P Pulse Ox O2 Delivery O2 Flow Rate FiO2 09/10/16 09:53 96 Nasal Cannula 3.00 09/10/16 08:35 98.3 109 18 111/61 97 09/10/16 06:08 96 Nasal Cannula 3.00 09/10/16 04:24 97.7 111 16 136/64 96 09/10/16 00:00 97.0 100 17 106/61 97 09/09/16 20:00 97.9 108 17 118/77 93 09/09/16 18:26 95 Nasal Cannula 3.00 09/09/16 17:20 78 09/09/16 16:00 96.0 102 18 115/59 95 09/09/16 12:00 96.3 103 18 98/60 95 09/09/16 11:33 94 Nasal Cannula 3.00 I/O 09/09/16 09/09/16 09/09/16 09/10/16 09/10/16 09/10/16 07:00 15:00 23:00 07:00 15:00 23:00 Intake Total 240 ml 720 ml 240 ml 240 ml Balance 240 ml 720 ml 240 ml 240 ml Intake Oral 240 ml 720 ml 240 ml 240 ml # Voids 0 0 0 0 # Bowel Movements 0 0 0 0 Result Diagram: 09/10/1622 09/10/16 0822 Imaging Last Impressions Chest CT 09/08/16 0000 Signed Impressions: Service Date/Time: Thursday, September 08, 2016 19:58 - CONCLUSION: 1. Minimal patchy densities in the upper lobes nonspecific but could be infectious or inflammatory. 2. No cavitary lesion to suggest septic emboli. 3. Left sternoclavicular joint appears unremarkable. 4. Increased sclerosis throughout the axial skeleton concerning for diffuse systemic process/metastatic disease. Goyo Hahn MD Chest X-Ray 09/06/16 0809 Signed Impressions: Service Date/Time: Tuesday, September 06, 2016 08:52 - CONCLUSION: No acute disease. No significant change has occurred. Blas Butler MD Clavicle X-Ray 09/06/16 0000 Signed Impressions: Service Date/Time: Tuesday, September 06, 2016 08:55 - CONCLUSION: Vascular stents stable and unchanged in place. Otherwise negative Blas Butler MD Objective Remarks GENERAL: This is a very pleasant 56 yo morbidly obese AA female, well-nourished , well-developed patient, in no apparent distress. SKIN: Very dry skin with multiple circular lesions. Rash on groin area. HEAD: Atraumatic. Normocephalic. No temporal or scalp tenderness. EYES: Pupils equal round and reactive. Extraocular motions intact. No scleral icterus. No injection or drainage. ENT: Nose without bleeding, purulent drainage or septal hematoma. Throat without erythema, tonsillar hypertrophy or exudate. Uvula midline. Airway patent. NECK: Trachea midline. No JVD or lymphadenopathy. Supple, nontender, no meningeal signs. CARDIOVASCULAR: Regular rate and rhythm without murmurs, gallops, or rubs. RESPIRATORY: Clear to auscultation. Breath sounds equal bilaterally. No wheezes , rales, or rhonchi. GASTROINTESTINAL: Abdomen soft, non-tender, nondistended. No hepato-splenomegaly , or palpable masses. No guarding. MUSCULOSKELETAL: Neck with paravertebral muscle tenderness, trapezius muscle with tenderness and spasm. very tense. Decreased ROM of the left shoulder and head movement 2/2 pain. Extremities without clubbing, cyanosis, or edema. No joint tenderness on palpation, no effusion, or edema noted. No calf tenderness. Negative Homans sign bilaterally. NEUROLOGICAL: Awake and alert. Cranial nerves II through XII intact. Motor and sensory grossly within normal limits. Five out of 5 muscle strength in all muscle groups. Normal speech. A/P Assessment and Plan 56-year-old female with a PMH of HTN, ESRD on HD M/W/F, COPD, CHF (Echo 05/11/16 w / EF 55-60%) and GERD who came to the ER w/ complaints of chest pain x2 days Hypocalcemia. S/p parathyroidectomy. Calcium replaced by IV in the ED . Continue to monitor. Also has HD today and Ca was replaced during HD. 09/07 corrected Ca still low will give additional 2gm Ca IV. 09/10/16 Critical value low Ca . Give extra IV Ca gluconate 2 gm Continue Ca gluconate PO. Continue to monitor and replace as need. Neck muscle spasm and left shoulder pain. X ray negative for fx. Neck muscle spasm improved with muscle relaxant however she has bacteremia and there is questionable L SC joint infection Staph epi bacteremia, very worrisome for infection of her permacath / ? L SC joint infection Her skin condition, plus location of her cath increases the likelihood of acquiring infection. However it seems this is the only viable option for her HD cath Pain in chest and L SC joint, ?infected joint from hematogenous spread Infectious disease specialist was consulted, Dr Martinez following, appreciate recommendations. Started IV vanco - give at least 4-6 weeks and can be given with HD Will CT chest with bone windows to looks specifically at the LSC joint and look for embolic lesions in lungs CT reviewed 1. Minimal patchy densities in the upper lobes nonspecific but could be infectious or inflammatory. 2. No cavitary lesion to suggest septic emboli. 3. Left sternoclavicular joint appears unremarkable. 4. Increased sclerosis throughout the axial skeleton concerning for diffuse systemic process /metastatic disease. Imaging with concern for metastatic disease as well, consult oncology. Follow C/S Give 4-6 weeks of IV Abx from last (+) BC per ID specialist Monitor progress ESRD on HD: M/W/F. Nephrology consulted. Consult Dr Villagran her nephrology doctor who recommends admission in the hospital Chest Pain: Atypical. Troponin negative. EKG reviewed, no acute changes or significant change from previous. Was seen by Dr. Sloane han on last recent admission, patient has normal Nuclear Stress Test. Was cleared by cardiology for DC. CXR unremarkable. Muscle spasm causing neck pain/ decreased shoulder range of motion. Xray reviewed, no fractures. Pain med per pain scale PO and IV. Flexeril po 10 mg q8 hrs. Consult PT/OT COPD: Chronic, stable. Does not appear to be in acute exacerbation. Hypertension/hypotension: Reportedly history of hypertension, however BP is fairly controlled. Will continue to monitor. Rash the upper extremities: Possibly psoriasis. Follow-up with dermatology as outpatient. Continue steroid cream. Wound care. Blood cultures with 1 bottle positive GPC likely contaminant. Blood cx positive might be contaminant, will ask ID specialist on consult. Afebrile and no leukocytosis, no tachycardia. Morbid Obesity: BMI 51.8. Counseled on weight reduction. Outpatient f/up with PCP/carbonator. Other chronic medical conditions include GERD, Hypothyroidism, MBD, depression, neuropathy: Stable at this time and will continue home medications as indicated. PT consulted/ OT consult Case management consulted. DVT Prophylaxis: Heparin sq/ SCD /TEDs Code Status full Discussed Condition With patient, nurse Discharge Planning pending improvement, clearance form consultants Janneth Zaragoza MD Sep 10, 2016 11:02
[2016-09-10] MEDS ORDERED: CALCIUM GLUCONATE INJ 2 GM in DEXTROSE 5% IN WATER 100ML INJ 100 ML IV ONE ×2 (13:00)
--- NOTE | 2016-09-10 15:51 | HHI.NPPN ---
Subjective History of Present Illness 56 year old female with left shoulder pain ESRD M,W,F Objective Data Data 09/09/16 09/10/16 18:59 06:59 Intake Total 720 ml 480 ml Balance 720 ml 480 ml Intake Oral 720 ml 480 ml # Voids 0 0 # Bowel Movements 0 0 Vital Signs Date Time Temp Pulse Resp B/P Pulse Ox O2 Delivery O2 Flow Rate FiO2 09/10/16 12:00 97.0 110 18 145/80 98 09/10/16 09:53 96 Nasal Cannula 3.00 09/10/16 08:35 98.3 109 18 111/61 97 09/10/16 06:08 96 Nasal Cannula 3.00 09/10/16 04:24 97.7 111 16 136/64 96 09/10/16 00:00 97.0 100 17 106/61 97 09/09/16 20:00 97.9 108 17 118/77 93 09/09/16 18:26 95 Nasal Cannula 3.00 09/09/16 17:20 78 09/09/16 16:00 96.0 102 18 115/59 95 -: 09/10/16 0822 09/10/16 0822 Physical Exam General Appearance: Well Developed, Well Nourished Neck Neck Exam: Neck Supple Pulmonary Resp Exam: Clear Bilaterally, Breath Sounds Equal Cardiology CV Exam: Regular, Normal Sinus Rhythm Gastrointestinal/Abdomen GI Exam: Soft, Bowel Sounds Present Extremeties Extremities Exam: Trace Edema (LEFT SHOULDER PAIN) Assessment/Plan Problem List: (1) ESRD (end stage renal disease) Plan: K 6.3 give Kayexalate 30 gm was on Heart healthy diet with no K restriction I changed it to Renal diet HD in am Doing better Lt shoulder pain Staph Epi on Vanco can be arranged as out pt with HD now getting work up for cancer screening as Ct chest showed sclerotic bone changes (2) Hypocalcemia Plan: on calcium carbonate/Tums (3) Chest pain Plan: Patient has been observed (4) Hypertension Plan: stable blood pressure Problem Qualifiers (1) Chest pain: Qualified Code: R07.9 - Chest pain, unspecified type Frank Villagran MD Sep 10, 2016 15:51
[2016-09-10] MEDS ORDERED: SODIUM POLYSTYRENE SULFONATE SUSP 15 GM/60 ML CUP PO ONE (16:00)
--- NOTE | 2016-09-10 18:52 | MB ---
cc: JAIDA KAISER M.D. DATE OF CONSULTATION 09/10/[address] Nicolas. REASON FOR CONSULTATION Oncology consulted to render opinion regarding patient with possible lesion. HISTORY OF PRESENT ILLNESS The patient is a 56-year-old, obese, female admitted to the hospital with chest pain. She is a rather poor historian. She stated she had chest pain two days prior to her presentation. She still has chest pain now. Her previous cardiac workup reportedly was negative. She also has been having left shoulder pain for at least a week. She has muscle spasm. She denies any fever, chills, night sweat or weight loss. Denies any shortness of breath. She has occasional nonproductive cough. Denies any nausea, vomiting, diarrhea, abdominal pain. No dysuria or hematuria. She is on hemodialysis. She had a CT of the chest done at presentation which showed increased sclerosis throughout the axial skeleton and metastatic disease cannot be ruled out. PAST MEDICAL HISTORY 1. End-stage renal disease on hemodialysis. 2. Hypertension. 3. Chronic obstructive pulmonary disease. 4. Congestive heart failure. 5. Gastroesophageal reflux disease. 6. Morbid obesity. PAST SURGICAL HISTORY 1. Right upper extremity AV fistula. 2. Right groin A-V fistula. 3. Peritoneal catheter placement and removal. 4. Appendectomy. 5. Cholecystectomy. 6. Thyroidectomy, 7. Right cataract surgery. 8. Partial hysterectomy. 9. Dental extraction. FAMILY HISTORY Father had prostate cancer. Brother of alcohol abuse. SOCIAL HISTORY No tobacco or alcohol use. REVIEW OF SYSTEMS CONSTITUTIONAL: Denies any fever, chills, night sweats, weight loss. EYES: Denies any blurred vision, double vision. EAR, NOSE, AND THROAT: Denies any mouth sores or voice changes. CARDIOVASCULAR: As above. RESPIRATORY: Has occasional cough but no shortness of breath. GASTROINTESTINAL: Denies any nausea or vomiting, diarrhea or abdominal pain. GENITOURINARY: Denies any dysuria, hematuria. MUSCULOSKELETAL: As above. She has left shoulder pain but denies any back pain. HEMATOLOGIC: Negative. ENDOCRINE: Negative. DERMATOLOGIC: Negative. PSYCHIATRIC: Negative. NEUROLOGICAL: Negative. PHYSICAL EXAMINATION VITAL SIGNS: Temperature 97. Blood pressure 145/80. O2 saturation 98%. GENERAL: She is alert and oriented times three, in no acute distress. She is a poor historian. She is morbidly obese. HEENT: Atraumatic, normocephalic. Pupils equal, round and reactive to light. Extraocular muscles intact. No scleral icterus. Oropharynx dry mucosa. No lesion, no thrush, no mucositis. NECK: No thyromegaly, no palpable mass. LYMPHATICS: No palpable cervical, clavicular, axillary or inguinal lymph nodes. Hard to palpate her lymph nodes due to body habitus. CARDIOVASCULAR: Regular S1, S2. No murmur. LUNGS: Clear to auscultation anteriorly. ABDOMEN: Soft, nontender. I could not palpate liver or spleen. EXTREMITIES: No clubbing, cyanosis. No edema. BACK: No paravertebral tenderness. SKIN: Dry skin and some hypopigmented lesion on her arm. Right groin dialysis catheter noted. BREASTS: Examination done which showed bilateral breasts symmetrical. I could not palpate any breast mass or axillary adenopathy. No skin changes. No nipple retraction. LABORATORY DATA Reviewed. ASSESSMENT 1. Sclerotic bone lesions noted on CT scan. She has diffuse sclerosis on the axial skeleton. She is only complaining of left shoulder pain. She has no back pain or any bone pain. This is a nonspecific finding and it does not appear to be metastatic disease. Her CT of the chest did not show any mass or adenopathy. I am going to have her get a CT of the abdomen and pelvis. We will also get a bone scan and check a tumor marker. I am also going to check a NIRAV level to make sure she has no sarcoidosis. Given her history of end-stage renal disease I will also check for plasma cell dyscrasia, but I think it is less likely. She has no hypercalcemia. 2. Pain in the chest and left shoulder. She may have an infected joint. She is currently on antibiotics per infectious disease. 3. End-stage renal disease on hemodialysis. 4. Hypocalcemia. 5. Chronic obstructive pulmonary disease. 6. Hypertension. 7. Rash. 8. Morbid obesity. RECOMMENDATIONS 1. Arrange for CT of the abdomen and pelvis, bone scan. 2. Check tumor marker and NIRAV level as well as protein study. Thank you Dr. Zaragoza for asking me to see this patient. Centrahoma Y. Chew, MD [facility] /2:15 PM /6:29 PM [facility]IG[facility]
[2016-09-11] VITALS (7 sets, daily range): BP systolic 121–155; BP diastolic 64–79; PULSE 98–118; RESP 17–20; TEMP 96–97.5; O2SAT 92–97
[2016-09-11] MEDS: CALCIUM/VITAMIN D 250 MG/125 U TAB PO SCH ×4 (01:01→21:34)
[2016-09-11] MEDS: CYCLOBENZAPRINE HCL 10 MG TAB PO SCH ×3 (01:01→15:39)
[2016-09-11] MEDS: CALCIUM CARBONATE 500 MG CHEWABLE TAB CHEW SCH ×5 (01:01→21:34)
[2016-09-11] MEDS: SODIUM CHLORIDE 0.9% FLUSH 5 ML FLUSH FLUSH SCH ×3 (01:02→21:35)
[2016-09-11] MEDS: ATORVASTATIN 40 MG TAB PO SCH ×2 (01:02→21:35)
[2016-09-11] MEDS: NYSTATIN 100,000 U/GM PWD 15 GM BTL TOPICAL SCH ×4 (01:02→21:35)
[2016-09-11] MEDS: HYDROCORTISONE 1% LOTN 120 ML BTL TOPICAL SCH ×4 (01:02→21:36)
[2016-09-11] MEDS: CALCIUM CARBONATE 1.25 GM (CA 500 MG) TAB PO SCH ×4 (01:03→17:43)
[2016-09-11] MEDS: HEPARIN SODIUM - SQ 10,000 UNITS/ML VIAL SQ SCH ×2 (01:03→12:00)
[2016-09-11 07:45] LABS: AUTOMATED NEUTROPHIL # 9.2 TH/MM3 (1.8-7.7); BASOPHIL % 0.3 % (0.0-2.0); EOSINOPHIL # 0.4 TH/MM3 (0-0.4); EOSINOPHIL % 3.7 % (0.0-4.0); HEMATOCRIT 36.4 % (35.0-46.0); HEMO FLAGS DIFF FINAL; LYMPH % 5.3 % (9.0-44.0); LYMPHOCYTE # 0.6 TH/MM3 (1.0-4.8); MEAN CELL VOLUME 91.8 FL (80.0-100.0); MEAN CORPUSCULAR HEMOGLOBIN 28.7 PG (27.0-34.0); MEAN CORPUSCULAR HGB CONC 31.3 % (32.0-36.0); MONO % 9.3 % (0.0-8.0); NEUT % 81.4 % (16.0-70.0); PLATELET COUNT 271 TH/MM3 (150-450); RED BLOOD COUNT 3.96 MIL/MM3 (4.00-5.30); RED CELL DISTRIBUTION WIDTH 14.2 % (11.6-17.2); WHITE BLOOD COUNT 11.3 TH/MM3 (4.0-11.0)
[2016-09-11] MEDS: SUCRALFATE 1 GM TAB PO SCH ×2 (07:54→15:39)
[2016-09-11] MEDS: LEVOTHYROXINE SODIUM 50 MCG TAB PO SCH (07:55)
[2016-09-11] MEDS ORDERED: VANCOMYCIN INJ 1,000 MG in SODIUM CHLOR 0.9% 250 ML INJ 250 ML IV SCH (08:00)
[2016-09-11 08:07] LABS: BICARBONATE 30.7 MEQ/L (21.0-32.0); POTASSIUM 6.5 MEQ/L (3.5-5.1)
--- NOTE | 2016-09-11 08:39 | HHI.PR ---
Subjective Remarks Cr and K elevated, plan for HD today. Seen after HD today. Says she feel smuch better. Still with pain, controlled by meds. No fever, chills. n/v/d/c. Says she is feeling confused at times, will have felxeril prn Objective Vitals Vital Signs Date Time Temp Pulse Resp B/P Pulse Ox O2 Delivery O2 Flow Rate FiO2 09/11/16 04:00 97.0 106 17 121/75 97 09/11/16 00:00 97.5 118 17 155/72 92 09/10/16 20:00 97.2 110 17 139/66 94 09/10/16 17:04 97.4 106 16 137/66 95 09/10/16 16:38 109 09/10/16 12:00 97.0 110 18 145/80 98 09/10/16 09:53 96 Nasal Cannula 3.00 I/O 09/10/16 09/10/16 09/10/16 09/11/16 09/11/16 09/11/16 07:00 15:00 23:00 07:00 15:00 23:00 Intake Total 240 ml 360 ml 360 ml 120 ml Balance 240 ml 360 ml 360 ml 120 ml Intake Oral 240 ml 360 ml 360 ml 120 ml # Voids 0 0 0 # Bowel Movements 0 0 0 Result Diagram: 09/11/16 0646 09/11/16 0646 Imaging Last Impressions Chest CT 09/08/16 0000 Signed Impressions: Service Date/Time: Thursday, September 08, 2016 19:58 - CONCLUSION: 1. Minimal patchy densities in the upper lobes nonspecific but could be infectious or inflammatory. 2. No cavitary lesion to suggest septic emboli. 3. Left sternoclavicular joint appears unremarkable. 4. Increased sclerosis throughout the axial skeleton concerning for diffuse systemic process/metastatic disease. Goyo Hahn MD Chest X-Ray 09/06/16 0809 Signed Impressions: Service Date/Time: Tuesday, September 06, 2016 08:52 - CONCLUSION: No acute disease. No significant change has occurred. Blas Butler MD Clavicle X-Ray 09/06/16 0000 Signed Impressions: Service Date/Time: Tuesday, September 06, 2016 08:55 - CONCLUSION: Vascular stents stable and unchanged in place. Otherwise negative Blas Butler MD Objective Remarks GENERAL: This is a very pleasant 56 yo morbidly obese AA female, well-nourished , well-developed patient, in no apparent distress. SKIN: Very dry skin with multiple circular lesions. Rash on groin area. HEAD: Atraumatic. Normocephalic. No temporal or scalp tenderness. EYES: Pupils equal round and reactive. Extraocular motions intact. No scleral icterus. No injection or drainage. ENT: Nose without bleeding, purulent drainage or septal hematoma. Throat without erythema, tonsillar hypertrophy or exudate. Uvula midline. Airway patent. NECK: Trachea midline. No JVD or lymphadenopathy. Supple, nontender, no meningeal signs. CARDIOVASCULAR: Regular rate and rhythm without murmurs, gallops, or rubs. RESPIRATORY: Clear to auscultation. Breath sounds equal bilaterally. No wheezes , rales, or rhonchi. GASTROINTESTINAL: Abdomen soft, non-tender, nondistended. No hepato-splenomegaly , or palpable masses. No guarding. MUSCULOSKELETAL: Neck with paravertebral muscle tenderness, trapezius muscle with tenderness and spasm. very tense. Decreased ROM of the left shoulder and head movement 2/2 pain. Extremities without clubbing, cyanosis, or edema. No joint tenderness on palpation, no effusion, or edema noted. No calf tenderness. Negative Homans sign bilaterally. NEUROLOGICAL: Awake and alert. Cranial nerves II through XII intact. Motor and sensory grossly within normal limits. Five out of 5 muscle strength in all muscle groups. Normal speech. A/P Assessment and Plan 56-year-old female with a PMH of HTN, ESRD on HD M/W/F, COPD, CHF (Echo 05/11/16 w / EF 55-60%) and GERD who came to the ER w/ complaints of chest pain x2 days Hypocalcemia. S/p parathyroidectomy. Calcium replaced by IV in the ED . Continue to monitor. Also has HD today and Ca was replaced during HD. 09/07 corrected Ca still low will give additional 2gm Ca IV. 09/10/16 Critical value low Ca . Give extra IV Ca gluconate 2 gm Continue Ca gluconate PO. Continue to monitor and replace as need. Neck muscle spasm and left shoulder pain. X ray negative for fx. Neck muscle spasm improved with muscle relaxant however she has bacteremia and there is questionable L SC joint infection Staph epi bacteremia, very worrisome for infection of her permacath / ? L SC joint infection Her skin condition, plus location of her cath increases the likelihood of acquiring infection. However it seems this is the only viable option for her HD cath Pain in chest and L SC joint, ?infected joint from hematogenous spread Infectious disease specialist was consulted, Dr Martinez following, appreciate recommendations. Started IV vanco - give at least 4-6 weeks and can be given with HD Will CT chest with bone windows to looks specifically at the LSC joint and look for embolic lesions in lungs CT reviewed 1. Minimal patchy densities in the upper lobes nonspecific but could be infectious or inflammatory. 2. No cavitary lesion to suggest septic emboli. 3. Left sternoclavicular joint appears unremarkable. 4. Increased sclerosis throughout the axial skeleton concerning for diffuse systemic process /metastatic disease. Imaging with concern for metastatic disease as well, consult oncology. /2 CT abd.pelvis and bone scan. Check NIRAV Follow C/S Give 4-6 weeks of IV Abx from last (+) BC per ID specialist Monitor progress ESRD on HD: M/W/F. Nephrology consulted. Consult Dr Villagran her nephrology doctor who recommends admission in the hospital Chest Pain: Atypical. Troponin negative. EKG reviewed, no acute changes or significant change from previous. Was seen by Dr. Sloane han on last recent admission, patient has normal Nuclear Stress Test. Was cleared by cardiology for DC. CXR unremarkable. Muscle spasm causing neck pain/ decreased shoulder range of motion. Xray reviewed, no fractures. Pain med per pain scale PO and IV. Flexeril po 10 mg q8 hrs. Consult PT/OT COPD: Chronic, stable. Does not appear to be in acute exacerbation. Hypertension/hypotension: Reportedly history of hypertension, however BP is fairly controlled. Will continue to monitor. Rash the upper extremities: Possibly psoriasis. Follow-up with dermatology as outpatient. Continue steroid cream. Wound care. Blood cultures with 1 bottle positive GPC likely contaminant. Blood cx positive might be contaminant, will ask ID specialist on consult. Afebrile and no leukocytosis, no tachycardia. Morbid Obesity: BMI 51.8. Counseled on weight reduction. 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 Other chronic medical conditions include GERD, Hypothyroidism, MBD, depression, neuropathy: Stable at this time and will continue home medications as indicated. PT consulted/ OT consult Case management consulted. DVT Prophylaxis: Heparin sq/ SCD /TEDs Code Status full Discussed Condition With patient, nurse Discharge Planning pending improvement, clearance form consultants Janneth Zaragoza MD Sep 11, 2016 08:39
[2016-09-11] MEDS: ASPIRIN EC 81 MG TABEC PO SCH (09:00)
[2016-09-11] MEDS: CALCITRIOL 0.25 MCG CAP PO SCH (09:00)
[2016-09-11] MEDS: PANTOPRAZOLE SOD 40 MG DELAYED RELEASE TAB PO SCH (09:00)
[2016-09-11] MEDS: buPROPion HCL 75 MG TAB PO SCH (09:00)
--- NOTE | 2016-09-11 09:07 | RADRPT ---
EXAM DATE/TIME: 09/11/2016 08:50 [facility] COMPARISON: CT THORAX W/O CONTRAST, September 08, 2016, 19:58. CT ABDOMEN & PELVIS W/O CONTRAST, October 27 5, 16:30. INDICATIONS : Possible metastatic disease seen on CT of Thorax. ORAL CONTRAST: No oral contrast ingested. RADIATION DOSE: 22.16 CTDIvol (mGy) MEDICAL HISTORY : Cardiovascular disease. Chronic obstructive pulmonary disease. Renal disease, end stage. SURGICAL HISTORY : Appendectomy. Cholecystectomy. Hysterectomy. ENCOUNTER: Initial ACUITY: 3 days PAIN SCALE: 0/10 LOCATION: abdomen TECHNIQUE: Volumetric scanning of the abdomen and pelvis was performed. Using automated exposure control and ad justment of the mA and/or kV according to patient size, radiation dose was kept as low as reasonably achievable to obtain optimal diagnostic quality images. FINDINGS: Status post appendectomy, cholecystectomy and hysterectomy. Numerous varices are seen within the sub cutaneous tissues of the anterior thoracic and abdominal wall and into the groin. There is diastasis of the rectus abdominous musculature with anterior bulging and a fat containing umbilical hernia is i dentified. The spleen, stomach, adrenal glands, liver, small and large bowel are unremarkable. Uterus and adnexa are unremarkable aortic and iliac artery calcifications are seen. Right femoral central v enous catheter is noted and the tip terminates in the IVC at the level of the liver. There is no daniel opathy. No aneurysm. Kidneys are atrophic. Left upper pole renal cyst is noted. CONCLUSION: 1. Extensive collateral vessels anterior abdominal wall and chest. 2. Fat containing ventral hernia at the umbilicus. 3. Atrophic kidneys with left renal cyst. 4. Diffuse sclerosis of the visualized bones are identified. Differential diagnosis would include scl erotic bones related to underlying renal osteodystrophy and interpreted clinical setting versus metas tatic disease. 5. Bilateral basilar atelectasis is noted. John Malave MD on September 11, 2016 at 9:01 Board Certified Radiologist. This report was verified electronically.
[2016-09-11] MEDS: VANCOMYCIN INJ 1,000 MG in SODIUM CHLOR 0.9% 250 ML INJ 250 ML IV SCH (11:01)
[2016-09-11] MEDS: GENTAMICIN SULFATE (DIALYSIS USE ONLY) 20 MG/2 ML VIAL IV PRN (11:17)
[2016-09-11] MEDS: HEPARIN SODIUM - IV 10,000 UNITS/10 ML VIAL PRN (11:17)
[2016-09-11] MEDS: SODIUM CHLOR 0.9% 1000 ML INJ 1,000 ML IV PRN (11:18)
--- NOTE | 2016-09-11 11:20 | HHI.NPPN ---
Subjective History of Present Illness 56 year old female with left shoulder pain ESRD M,W,F Objective Data Data 09/10/16 09/11/16 19:00 07:00 Intake Total 360 ml 480 ml Balance 360 ml 480 ml Intake Oral 360 ml 480 ml # Voids 0 # Bowel Movements 0 Vital Signs Date Time Temp Pulse Resp B/P Pulse Ox O2 Delivery O2 Flow Rate FiO2 09/11/16 08:00 97.0 100 18 131/79 93 09/11/16 04:00 97.0 106 17 121/75 97 09/11/16 00:00 97.5 118 17 155/72 92 09/10/16 20:00 97.2 110 17 139/66 94 09/10/16 17:04 97.4 106 16 137/66 95 09/10/16 16:38 109 09/10/16 12:00 97.0 110 18 145/80 98 -: 09/11/16 0646 09/11/16 0646 Physical Exam General Appearance: Well Developed, Well Nourished Neck Neck Exam: Neck Supple Pulmonary Resp Exam: Clear Bilaterally, Breath Sounds Equal Cardiology CV Exam: Regular, Normal Sinus Rhythm Gastrointestinal/Abdomen GI Exam: Soft, Bowel Sounds Present Extremeties Extremities Exam: Trace Edema (LEFT SHOULDER PAIN) Assessment/Plan Problem List: (1) ESRD (end stage renal disease) Plan: K 6.5 seen during hemodialysis 1 K/HCO3 UF 2 L tolerating it well Doing better Lt shoulder pain Staph Epi on Vanco can be arranged as out pt with HD now getting work up for cancer screening as Ct chest showed sclerotic bone changes likely due to ESRD and Hx of Tertiary Hyperparathyroid disease s/p Parathyroidectomy CEA/CA 15-3 Neg (2) Hypocalcemia Plan: on calcium carbonate/Tums (3) Chest pain Plan: Patient has been observed (4) Hypertension Plan: stable blood pressure Problem Qualifiers (1) Chest pain: Qualified Code: R07.9 - Chest pain, unspecified type Frank Villagran MD Sep 11, 2016 11:20
[2016-09-11] MEDS: GABAPENTIN 100 MG CAP PO SCH ×2 (13:00→17:42)
--- NOTE | 2016-09-11 13:27 | RADRPT ---
EXAM DATE/TIME: 09/11/2016 08:13 [place] COMPARISON: No previous studies available for comparison. PRIOR BONE SCANS: No correlative bone scan available for comparison. INDICATIONS : Neoplasm with left shoulder pain. DOSE: 31 mCi Tc99m MDP IV MEDICAL HISTORY : Gastroesophageal reflux disease. Renal disease, end stage. Congestive heart failure. Hypertension. SURGICAL HISTORY : Appendectomy. Cholecystectomy. Hysterectomy. Thyroidectomy, cataract surgery and AV fistula. ENCOUNTER: Initial ACUITY: 2 weeks PAIN SCALE: 5/10 LOCATION: Left Shoulder. TECHNIQUE: Three hours post intravenous administration of radiotracer, whole body bone scan imaging was performe d. FINDINGS: Blood pool images demonstrate radiotracer activity within extensive subcutaneous collateral vessels a s noted on CT imaging, otherwise a homogeneous pattern of uptake in the soft tissues. No hyperemic a reas are identified. Planar bone scan demonstrates a normal pattern of uptake. There is moderate rad iotracer accumulation in the bilateral knees with mild diffuse uptake seen in the distal femurs bilat erally as well as the bilateral tibia and hindfoot. Plain radiographic correlation recommended. CONCLUSION: No definite scintigraphic evidence of osseous metastatic disease. Evidence of collateral vessels seen on blood pool images. Uptake in the knees, and lower legs in a symmetric fashion bilaterally does no t have the typical appearance of neoplasm however plain radiographic correlation recommended. John Malave MD on September 11, 2016 at 13:24 Board Certified Radiologist. This report was verified electronically.
--- NOTE | 2016-09-11 14:27 | HHI.IDPN ---
Subjective Subjective Remarks Notes reviewed Temps ok Feels better Had HD today No new (+) BC 2 BC on admission with Staph epi CT chest - no septic emboli, LSC joint ok Antibiotics Vancomycin Lines R groin permacath Past Medical History End-stage renal disease, on hemodialysis Sunday and Sunday Steal syndrome COPD, asthma Gastric ulcers Diabetes Hypertension CHF Obesity Multiple clots in her central veins Previous episodes of sepsis related to infected venous access or AV graft, AV fistula Past Surgical History Parathyroidectomy Appendectomy Partial hysterectomy Both big toe amputation Multiple surgeries on the right hand from a spider bite Cholecystectomy Multiple AV graft placement and removal The most recent surgery was in her right upper extremity and had removal of the AV graft last April 2016 Allergies: Coded Allergies: Levaquin (Unverified Allergy, Severe, 09/06/16) ANAPHYLAXIS *MDRO Multi-Drug Resistant Organism (Verified Adverse Reaction, Unknown, Cleared, 09/07/16) MRSA (wound) - 04/2011, (blood) - 10/2011 MRSA PCR Screen negative 02/17/15 and 02/19/15. Cleared per Infection Control Objective . Vital Signs Date Time Temp Pulse Resp B/P Pulse Ox O2 Delivery O2 Flow Rate FiO2 09/11/16 08:00 98 09/11/16 08:00 97.0 100 18 131/79 93 09/11/16 04:00 97.0 106 17 121/75 97 09/11/16 00:00 97.5 118 17 155/72 92 09/10/16 20:00 97.2 110 17 139/66 94 09/10/16 17:04 97.4 106 16 137/66 95 09/10/16 16:38 109 09/10/16 09/10/16 09/11/16 14:59 22:59 06:59 Intake Total 720 ml 120 ml Balance 720 ml 120 ml Intake Oral 720 ml 120 ml # Voids 0 0 # Bowel Movements 0 0 . Laboratory Tests Test 09/10/16 09/11/16 08:22 06:46 White Blood Count 11.1 TH/MM3 11.3 TH/MM3 Red Blood Count 3.98 MIL/MM3 3.96 MIL/MM3 Hemoglobin 11.5 GM/DL 11.4 GM/DL Hematocrit 37.1 % 36.4 % Mean Corpuscular Volume 93.1 FL 91.8 FL Mean Corpuscular Hemoglobin 28.9 PG 28.7 PG Mean Corpuscular Hemoglobin 31.0 % 31.3 % Concent Red Cell Distribution Width 14.8 % 14.2 % Platelet Count 278 TH/MM3 271 TH/MM3 Mean Platelet Volume 8.2 FL 8.2 FL Neutrophils (%) (Auto) 79.4 % 81.4 % Lymphocytes (%) (Auto) 5.3 % 5.3 % Monocytes (%) (Auto) 9.1 % 9.3 % Eosinophils (%) (Auto) 5.9 % 3.7 % Basophils (%) (Auto) 0.3 % 0.3 % Neutrophils # (Auto) 8.8 TH/MM3 9.2 TH/MM3 Lymphocytes # (Auto) 0.6 TH/MM3 0.6 TH/MM3 Monocytes # (Auto) 1.0 TH/MM3 1.1 TH/MM3 Eosinophils # (Auto) 0.7 TH/MM3 0.4 TH/MM3 Basophils # (Auto) 0.0 TH/MM3 0.0 TH/MM3 CBC Comment DIFF FINAL DIFF FINAL Differential Comment Laboratory Tests Test 09/10/16 09/10/16 09/11/16 08:22 19:55 06:46 Sodium Level 130 MEQ/L 131 MEQ/L Potassium Level 6.3 MEQ/L 6.5 MEQ/L Chloride Level 95 MEQ/L 91 MEQ/L Carbon Dioxide Level 24.0 MEQ/L 30.7 MEQ/L Anion Gap 11 MEQ/L 9 MEQ/L Blood Urea Nitrogen 68 MG/DL 84 MG/DL Creatinine 9.31 MG/DL 10.94 MG/DL Estimat Glomerular Filtration 5 ML/MIN 4 ML/MIN Rate Random Glucose 102 MG/DL 88 MG/DL Calcium Level 7.3 MG/DL 8.1 MG/DL Protein Corrected Calcium 6.9 MG/DL Total Protein 8.1 GM/DL Carcinoembryonic Antigen 1.9 NG/ML CA 15-3 Antigen 13.2 U/ML Imaging Chest CT 09/08/16 0000 Signed Impressions: Service Date/Time: Thursday, September 08, 2016 19:58 - CONCLUSION: 1. Minimal patchy densities in the upper lobes nonspecific but could be infectious or inflammatory. 2. No cavitary lesion to suggest septic emboli. 3. Left sternoclavicular joint appears unremarkable. 4. Increased sclerosis throughout the axial skeleton concerning for diffuse systemic process/metastatic disease. Goyo F. Tocci, MD Chest X-Ray 09/06/16 0809 Signed Impressions: Service Date/Time: Tuesday, September 06, 2016 08:52 - CONCLUSION: No acute disease. No significant change has occurred. Blas Butler MD Clavicle X-Ray 09/06/16 0000 Signed Impressions: Service Date/Time: Tuesday, September 06, 2016 08:55 - CONCLUSION: Vascular stents stable and unchanged in place. Otherwise negative Blas Butler MD Physical Exam GENERAL: Obese, awake and alert, looks chronically ill appearing, in no apparent distress. SKIN: very dry skin and desquamating, generalized. HEENT: [place] conjunctivae, has puffiness around her eyes. No scleral icterus. No injection or drainage. Moist oral mucosa. NECK: Trachea midline. No JVD or lymphadenopathy. Supple, nontender, no meningeal signs. CARDIOVASCULAR: Regular rate and rhythm without murmurs, gallops, or rubs. RESPIRATORY: Clear to auscultation. Breath sounds equal bilaterally. No wheezes , rales, or rhonchi. Decreased breath sounds at the bases. She has tenderness over her L SC joint same. GASTROINTESTINAL: Abdomen soft, obese, non-tender, nondistended. Bowel sounds are present and normoactive. No hepato-splenomegaly, or palpable masses. No guarding. MUSCULOSKELETAL: Extremities without clubbing, cyanosis, or edema. No joint tenderness, effusion, or edema noted. Has very moist areas in her groiun with maceration of the skin. No calf tenderness. Negative Homans sign bilaterally. the HD cath has dressing with some moisture around it and desquamated skin, no purulence noted at the site. Multiple scars in her BUE from previous surgeries NEUROLOGICAL: Awake and alert. Cranial nerves II through XII intact. Motor and sensory grossly within normal limits. Five out of 5 muscle strength in all muscle groups. Normal speech. PSYCH: Looks dishelved, calm and cooperative LINE: R groin permacath, currently no drainage noted Assessment & Plan Remarks IMPRESSION Staph epi bacteremia, very worrisome for infection of her permacath - her skin condition, plus location of her cath increases the likelihood of acquiring infection - however accdg to notes, this is the only viable option for her HD cath Pain in chest and L SC joint, ?infected joint from hematogenous spread - CT ok ESRD on HD Obesity Generalized desquamation of the skin RECOMMENDATION Continue IV vanco - give at least 4-6 weeks and can be given with HD Give 4-6 weeks of IV Abx from last (+) BC OK to D/C once arrangement made for her Abx Safia Martinez MD Sep 11, 2016 14:27
--- NOTE | 2016-09-11 14:29 | HHI.FF ---
Infusion Therapy Location of Infusion Therapy: Dialysis Center Patient Information Patient Weight 134 kg Diagnosis: Diagnosis Staph epi bacteremia Coded Allergies: Levaquin (Unverified Allergy, Severe, 09/06/16) ANAPHYLAXIS *MDRO Multi-Drug Resistant Organism (Verified Adverse Reaction, Unknown, Cleared, 09/07/16) MRSA (wound) - 04/2011, (blood) - 10/2011 MRSA PCR Screen negative 02/17/15 and 02/19/15. Cleared per Infection Control Administer Medication Vancomycin Vancomycin 1 gm IV with HD Sun and Sun, Vanco 1.5 gm IV with HD every Sun Stop Treatment: Oct 07, 2016 Additional Information Venous access: Other (permacath) Additional Instructions [x] Peripheral flush and dressing changes per protocol [x] Implanted port and central online marketing coordinator: * Implanted port: 10 ml Normal Saline followed by 5 ml Heparin 100 units/ml Heparin flush after each use and monthly to maintain. [] May leave port accessed during therapy. [] May leave peripheral site accessed for duration of therapy. [x] If patient has SOB or respiratory distress, check oxygen saturation. If less than 90% or clinical signs of respiratory distress, administer oxygen at 2 L/min. via nasal cannula and notify physician. [x] Anaphylaxis/Reaction orders: * Stop infusion. * Keep IV line open with saline flush. * Notify physician. * Monitor vital signs every 15 minutes until symptoms resolve. * Check Oxygen saturation; Oxygen at 2 L/min. via nasal cannula if less than 90% or clinical signs of respiratory distress. * Administer diphenhydramine (Benadryl) 25 mg IV STAT, (unless patient has received as pre-med). May repeat once, if necessary. * Solu-Cortef 250 mg IVP over 30-60 seconds, use 100 mg vials for each dissolution. * Epinephrine (1mg/1 ml) 0.3 mg subcutaneously or IVP now with any signs of respiratory distress. * Check with physician for new additional pre-med orders if patient is re- challenged or re-treated. [x] May remove PICC line when treatment complete, after confirming with Physician. [x] If the patient is admitted to the hospital, the ED, or transferred via [facility] , complete transfer form including medication reconciliation order sheet. Safia Martinez MD Sep 11, 2016 14:29
[2016-09-11] MEDS: ACETAMINOPHEN/HYDROcodone 325 MG/10 MG TAB PO PRN (15:48)
[2016-09-11] MEDS ORDERED: CYCLOBENZAPRINE HCL 10 MG TAB PO PRN ×2 (17:15)
[2016-09-12] VITALS (9 sets, daily range): BP systolic 89–120; BP diastolic 56–76; PULSE 96–106; RESP 16–18; TEMP 96.6–98.1; O2SAT 92–98
[2016-09-12] MEDS: CALCIUM CARBONATE 1.25 GM (CA 500 MG) TAB PO SCH ×4 (01:22→18:42)
[2016-09-12] MEDS: HEPARIN SODIUM - SQ 10,000 UNITS/ML VIAL SQ SCH ×2 (01:22→14:38)
[2016-09-12] MEDS: ACETAMINOPHEN/HYDROcodone 325 MG/10 MG TAB PO PRN (03:42)
[2016-09-12 06:30] LABS: AUTOMATED NEUTROPHIL # 7.9 TH/MM3 (1.8-7.7); BASOPHIL % 0.4 % (0.0-2.0); EOSINOPHIL # 0.5 TH/MM3 (0-0.4); EOSINOPHIL % 4.7 % (0.0-4.0); HEMATOCRIT 34.6 % (35.0-46.0); HEMO FLAGS DIFF FINAL; LYMPH % 5.8 % (9.0-44.0); LYMPHOCYTE # 0.6 TH/MM3 (1.0-4.8); MEAN CELL VOLUME 91.8 FL (80.0-100.0); MEAN CORPUSCULAR HEMOGLOBIN 29.2 PG (27.0-34.0); MEAN CORPUSCULAR HGB CONC 31.8 % (32.0-36.0); MONO % 11.6 % (0.0-8.0); NEUT % 77.5 % (16.0-70.0); PLATELET COUNT 284 TH/MM3 (150-450); RED BLOOD COUNT 3.77 MIL/MM3 (4.00-5.30); RED CELL DISTRIBUTION WIDTH 14.3 % (11.6-17.2); WHITE BLOOD COUNT 10.2 TH/MM3 (4.0-11.0)
[2016-09-12 06:57] LABS: BICARBONATE 27.8 MEQ/L (21.0-32.0); POTASSIUM 5.3 MEQ/L (3.5-5.1)
[2016-09-12] MEDS: CALCIUM/VITAMIN D 250 MG/125 U TAB PO SCH ×3 (07:28→22:00)
[2016-09-12] MEDS: CALCIUM CARBONATE 500 MG CHEWABLE TAB CHEW SCH ×5 (07:28→22:00)
[2016-09-12] MEDS: SUCRALFATE 1 GM TAB PO SCH ×2 (07:28→18:44)
[2016-09-12] MEDS: LEVOTHYROXINE SODIUM 50 MCG TAB PO SCH (07:28)
[2016-09-12] MEDS: SODIUM CHLORIDE 0.9% FLUSH 5 ML FLUSH FLUSH SCH ×2 (09:00→21:00)
[2016-09-12] MEDS: GABAPENTIN 100 MG CAP PO SCH ×3 (10:19→18:42)
[2016-09-12] MEDS: buPROPion HCL 75 MG TAB PO SCH (10:19)
[2016-09-12] MEDS: CALCITRIOL 0.25 MCG CAP PO SCH (10:19)
[2016-09-12] MEDS: ASPIRIN EC 81 MG TABEC PO SCH (10:20)
[2016-09-12] MEDS: PANTOPRAZOLE SOD 40 MG DELAYED RELEASE TAB PO SCH (10:20)
--- NOTE | 2016-09-12 10:58 | PD.ONC.PN ---
Subjective Subjective Remarks Afebrile overnight. Patient confused today. She doesn't completely understand why she is in the hospital. Per nursing staff this confusion started today. No other overnight events. Objective Data Date Time Temp Pulse Resp B/P Pulse Ox O2 Delivery O2 Flow Rate FiO2 09/12/16 10:14 96 Nasal Cannula 3.00 09/12/16 08:00 97.5 102 16 100/56 95 09/12/16 04:00 96 09/12/16 01:24 96.6 105 18 109/66 96 09/11/16 21:33 Nasal Cannula 3.00 09/11/16 20:00 96.6 109 18 129/74 94 09/11/16 18:50 Room Air 09/11/16 17:37 96 Nasal Cannula 3.00 09/11/16 16:00 96.0 113 18 136/64 93 09/11/16 15:50 96 Nasal Cannula 3.00 09/11/16 13:45 97.0 108 20 129/70 96 09/12/16 09/12/16 09/12/16 07:00 15:00 23:00 Intake Total 120 ml Balance 120 ml Result Diagram: 09/12/16 0555 09/12/16 0555 Laboratory Results Laboratory Tests Test 09/12/16 05:55 White Blood Count 10.2 TH/MM3 Red Blood Count 3.77 MIL/MM3 Hemoglobin 11.0 GM/DL Hematocrit 34.6 % Mean Corpuscular Volume 91.8 FL Mean Corpuscular Hemoglobin 29.2 PG Mean Corpuscular Hemoglobin 31.8 % Concent Red Cell Distribution Width 14.3 % Platelet Count 284 TH/MM3 Mean Platelet Volume 7.7 FL Neutrophils (%) (Auto) 77.5 % Lymphocytes (%) (Auto) 5.8 % Monocytes (%) (Auto) 11.6 % Eosinophils (%) (Auto) 4.7 % Basophils (%) (Auto) 0.4 % Neutrophils # (Auto) 7.9 TH/MM3 Lymphocytes # (Auto) 0.6 TH/MM3 Monocytes # (Auto) 1.2 TH/MM3 Eosinophils # (Auto) 0.5 TH/MM3 Basophils # (Auto) 0.0 TH/MM3 CBC Comment DIFF FINAL Differential Comment Sodium Level 135 MEQ/L Potassium Level 5.3 MEQ/L Chloride Level 99 MEQ/L Carbon Dioxide Level 27.8 MEQ/L Anion Gap 8 MEQ/L Blood Urea Nitrogen 52 MG/DL Creatinine 8.09 MG/DL Estimat Glomerular Filtration 6 ML/MIN Rate Random Glucose 95 MG/DL Calcium Level 8.2 MG/DL Administered Medications Medications (Trade) Dose Ordered Sig/Mary Grace Route PRN Reason Start Time Stop Time Status Last Admin Dose Admin Sodium Chloride (NS 1000 ml Inj) 1,000 ml @ 0 mls/hr Q0M PRN IV For Prime & Rinse Back 09/06/16 11:50 09/11/16 11:18 Albumin Human (Albumin 25% Inj) 25 gm UNSCH PRN IV WITH DIALYSIS 09/06/16 12:00 09/08/16 13:26 Heparin Sodium (Porcine) (Heparin Inj) UNSCH PRN .XX WITH DIALYSIS 09/06/16 12:00 09/11/16 11:17 Gentamicin Sulfate (Gentamicin (Dialysis) Inj) 20 mg UNSCH PRN IV WITH DIALYSIS 09/06/16 12:00 09/11/16 11:17 IV Flush (NS Flush) 2 ml BID FLUSH 09/06/16 21:00 09/11/16 21:35 Sennosides (Senokot) 17.2 mg Q12H PRN PO CONSTIPATION 09/06/16 12:00 09/07/16 09:59 Heparin Sodium (Porcine) (Heparin Inj) 5,000 units Q12H SQ 09/06/16 12:00 09/12/16 01:22 Calcium Carbonate (Oscal) 2,000 mg Q6HR PO 09/06/16 18:00 09/12/16 07:28 Aspirin (Ecotrin Ec) 81 mg DAILY PO 09/07/16 09:00 09/12/16 10:20 Atorvastatin Calcium (Lipitor) 40 mg HS PO 09/06/16 21:00 09/11/16 21:35 Bupropion HCl (Wellbutrin) 75 mg DAILY PO 09/07/16 09:00 09/12/16 10:19 Calcitriol (Rocaltrol) 0.25 mcg DAILY PO 09/07/16 09:00 09/12/16 10:19 Calcium/Vitamin D (Oscal-D 250-125) 250 mg Q8HR PO 09/06/16 22:00 09/12/16 07:28 Gabapentin (Neurontin) 200 mg TID PO 09/06/16 18:00 09/12/16 10:19 Hydrocortisone (Hydrocortisone 1% Lotion) 1 applic Q8HR TOPICAL 09/06/16 22:00 09/11/16 15:46 Levothyroxine Sodium (Synthroid) 50 mcg DAILY@06 PO 09/07/16 06:00 09/12/16 07:28 Nystatin (Mycostatin Powder) 1 applic Q8HR TOPICAL 09/06/16 22:00 09/11/16 21:35 Pantoprazole Sodium (Protonix) 40 mg DAILY PO 09/07/16 09:00 09/12/16 10:20 Sucralfate (Carafate) 1 gm BIDAC PO 09/07/16 07:00 09/12/16 07:28 Acetaminophen/ Hydrocodone Bitart ([place] 5-325 Mg) 1 tab Q4H PRN PO PAIN SCALE 3 TO 5 09/06/16 17:00 09/10/16 06:20 Acetaminophen/ Hydrocodone Bitart ([place] 10-325 Mg) 1 tab Q4H PRN PO PAIN SCALE 6 TO 10 09/06/16 17:00 09/12/16 03:42 Multi-Ingredient Ointment (Eucerin Cream) 1 applic Q6H PRN TOPICAL itching and rash hands and arm 09/09/16 17:00 09/11/16 21:35 Objective Remarks GENERAL: Middle aged obese female, lying in bed, anxious. SKIN: Warm and dry. HEAD: Normocephalic. EYES: No scleral icterus. No injection or drainage. NECK: Supple, trachea midline. CARDIOVASCULAR: Regular rate and rhythm RESPIRATORY: Breath sounds equal bilaterally. No accessory muscle use. GASTROINTESTINAL: Abdomen soft, non-tender, nondistended. EXTREMITIES: No cyanosis MUSCULOSKELETAL: Adequate muscle tone. NEUROLOGICAL: awake, moving all extremities. normal speech. Assessment/Plan Problem List: (1) sclerotic bone lesion Status: Acute Plan: --diffuse sclerosis on the axial skeleton. --only complaining of left shoulder pain. no back pain or any bone pain. --nonspecific finding and it does not appear to be metastatic disease. --CT chest no mass or adenopathy. --CT of the abdomen and pelvis shows diffuse sclerosis --bone scan: no mets --NIRAV level pending Assessment 56y/o female with bony lesions, initially admitted for chest pain. Oncology consulted to render an opinion on newly found bone lesions. ho End-stage renal disease on hemodialysis. Hypertension. Chronic obstructive pulmonary disease. Congestive heart failure. Gastroesophageal reflux disease. Morbid obesity Plan 1. await NIRAV level, serum protein electrophoresis 2. supportive care Attending Statement The exam, history, and the medical decision-making described in the above note were completed with the assistance of the mid-level provider. I reviewed and agree with the findings presented. I attest that I had a [id number] encounter with the patient on the same day, and personally performed and documented my assessment and findings in the medical record. Shoulder pain about the same. No back pain. Bone scan showed no clear evidence of bone metastasis. Tumor markers normal. Protein study pending. I think the CT findings are likely due to renal osteodystrophy and less likely to be mets disease. Check PTH. Mili Junior Sep 12, 2016 10:58 Stephen Agosto MD Sep 12, 2016 11:55
--- NOTE | 2016-09-12 11:48 | HHI.PR ---
Subjective Remarks Was noted confused per nurse. Pain is controlled by meds. No n/v/d/c. No fever. Cr improving after HD. Patient is alert and oriented by name and year. Says she is confused lately. No n/v/d/c. Family at bedside. Objective Vitals Vital Signs Date Time Temp Pulse Resp B/P Pulse Ox O2 Delivery O2 Flow Rate FiO2 09/12/16 10:14 96 Nasal Cannula 3.00 09/12/16 08:00 97.5 102 16 100/56 95 09/12/16 04:00 96 09/12/16 01:24 96.6 105 18 109/66 96 09/11/16 21:33 Nasal Cannula 3.00 09/11/16 20:00 96.6 109 18 129/74 94 09/11/16 18:50 Room Air 09/11/16 17:37 96 Nasal Cannula 3.00 09/11/16 16:00 96.0 113 18 136/64 93 09/11/16 15:50 96 Nasal Cannula 3.00 09/11/16 13:45 97.0 108 20 129/70 96 I/O 09/11/16 09/11/16 09/11/16 09/12/16 09/12/16 09/12/16 07:00 15:00 23:00 07:00 15:00 23:00 Intake Total 120 ml 360 ml 120 ml Output Total 3000 ml Balance 120 ml -3000 ml 360 ml 120 ml Intake Oral 120 ml 360 ml 120 ml Output Hemodialysis 3000 ml # Voids 0 1 0 0 # Bowel Movements 0 1 0 0 Result Diagram: 09/12/16 0555 09/12/16 0555 Imaging Last Impressions Bone Scan Nuclear Medicine 09/11/16 0000 Signed Impressions: Service Date/Time: Sunday, September 11, 2016 08:13 - CONCLUSION: No definite scintigraphic evidence of osseous metastatic disease. Evidence of collateral vessels seen on blood pool images. Uptake in the knees, and lower legs in a symmetric fashion bilaterally does not have the typical appearance of neoplasm however plain radiographic correlation recommended. John Malave MD Abdomen/Pelvis CT 09/10/16 0000 Signed Impressions: Service Date/Time: Sunday, September 11, 2016 08:50 - CONCLUSION: 1. Extensive collateral vessels anterior abdominal wall and chest. 2. Fat containing ventral hernia at the umbilicus. 3. Atrophic kidneys with left renal cyst. 4. Diffuse sclerosis of the visualized bones are identified. Differential diagnosis would include sclerotic bones related to underlying renal osteodystrophy and interpreted clinical setting versus metastatic disease. 5. Bilateral basilar atelectasis is noted. John Malave MD Chest CT 09/08/16 0000 Signed Impressions: Service Date/Time: Thursday, September 08, 2016 19:58 - CONCLUSION: 1. Minimal patchy densities in the upper lobes nonspecific but could be infectious or inflammatory. 2. No cavitary lesion to suggest septic emboli. 3. Left sternoclavicular joint appears unremarkable. 4. Increased sclerosis throughout the axial skeleton concerning for diffuse systemic process/metastatic disease. Goyo Hahn MD Chest X-Ray 09/06/16 0809 Signed Impressions: Service Date/Time: Tuesday, September 06, 2016 08:52 - CONCLUSION: No acute disease. No significant change has occurred. Blas Butler MD Clavicle X-Ray 09/06/16 0000 Signed Impressions: Service Date/Time: Tuesday, September 06, 2016 08:55 - CONCLUSION: Vascular stents stable and unchanged in place. Otherwise negative Blas Butler MD Objective Remarks GENERAL: This is a very pleasant 56 yo morbidly obese AA female, well-nourished , well-developed patient, in no apparent distress. SKIN: Very dry skin with multiple circular lesions. Rash on groin area. HEAD: Atraumatic. Normocephalic. No temporal or scalp tenderness. EYES: Pupils equal round and reactive. Extraocular motions intact. No scleral icterus. No injection or drainage. ENT: Nose without bleeding, purulent drainage or septal hematoma. Throat without erythema, tonsillar hypertrophy or exudate. Uvula midline. Airway patent. NECK: Trachea midline. No JVD or lymphadenopathy. Supple, nontender, no meningeal signs. CARDIOVASCULAR: Regular rate and rhythm without murmurs, gallops, or rubs. RESPIRATORY: Clear to auscultation. Breath sounds equal bilaterally. No wheezes , rales, or rhonchi. GASTROINTESTINAL: Abdomen soft, non-tender, nondistended. No hepato-splenomegaly , or palpable masses. No guarding. MUSCULOSKELETAL: Neck with paravertebral muscle tenderness, trapezius muscle with tenderness and spasm. very tense. Decreased ROM of the left shoulder and head movement 2/2 pain. Extremities without clubbing, cyanosis, or edema. No joint tenderness on palpation, no effusion, or edema noted. No calf tenderness. Negative Homans sign bilaterally. NEUROLOGICAL: Awake and alert. Cranial nerves II through XII intact. Motor and sensory grossly within normal limits. Five out of 5 muscle strength in all muscle groups. Normal speech. A/P Assessment and Plan 56-year-old female with a PMH of HTN, ESRD on HD M/W/F, COPD, CHF (Echo 05/11/16 w / EF 55-60%) and GERD who came to the ER w/ complaints of chest pain x2 days Metabolic encephalopathy: Patient with electrolyte abnormality, multiple comorbidities, on pain meds narcotics and also on muscle relaxants. Change flexeryl as PRN at night, pain meds prn, replete lytes. Ordered CT scan reviewed , no acute change. Hypocalcemia. S/p parathyroidectomy. Calcium replaced by IV in the ED . Continue to monitor. Also has HD today and Ca was replaced during HD. 09/07 corrected Ca still low will give additional 2gm Ca IV. 09/10/16 Critical value low Ca . Give extra IV Ca gluconate 2 gm Continue Ca gluconate PO. Continue to monitor and replace as need. Neck muscle spasm and left shoulder pain. X ray negative for fx. Neck muscle spasm improved with muscle relaxant however she has bacteremia and there is questionable L SC joint infection Staph epi bacteremia, very worrisome for infection of her permacath / ? L SC joint infection Her skin condition, plus location of her cath increases the likelihood of acquiring infection. However it seems this is the only viable option for her HD cath Pain in chest and L SC joint, ?infected joint from hematogenous spread Infectious disease specialist was consulted, Dr Martinez following, appreciate recommendations. Started IV vanco - give at least 4-6 weeks and can be given with HD Will CT chest with bone windows to looks specifically at the LSC joint and look for embolic lesions in lungs CT reviewed 1. Minimal patchy densities in the upper lobes nonspecific but could be infectious or inflammatory. 2. No cavitary lesion to suggest septic emboli. 3. Left sternoclavicular joint appears unremarkable. 4. Increased sclerosis throughout the axial skeleton concerning for diffuse systemic process /metastatic disease. Imaging with concern for metastatic disease as well, consult oncology. 1/[address] abd.pelvis and bone scan. Check NIRAV Follow C/S Give 4-6 weeks of IV Abx from last (+) BC per ID specialist Monitor progress Sclerotic bone lesion - diffuse sclerosis on the axial skeleton. Complaining of left shoulder pain. Nonspecific finding and it does not appear to be metastatic disease. CT chest no mass or adenopathy. CT of the abdomen and pelvis shows diffuse sclerosis. Bone scan: no mets NIRAV level pending Hem/oncology following,, appreciate recommendations. Assessment 56y/o female with bony lesions, initially admitted for chest pain. Oncology consulted to render an opinion on newly found bone lesions. ho End-stage renal disease on hemodialysis. Hypertension. Chronic obstructive pulmonary disease. Congestive heart failure. Gastroesophageal reflux disease. Morbid obesity Plan 1. await NIRAV level, serum protein electrophoresis 2. supportive care ESRD on HD: M/W/F. Nephrology consulted. Consult Dr Villagran her nephrology doctor who recommends admission in the hospital Chest Pain: Atypical. Troponin negative. EKG reviewed, no acute changes or significant change from previous. Was seen by Dr. Sloane han on last recent admission, patient has normal Nuclear Stress Test. Was cleared by cardiology for DC. CXR unremarkable. Muscle spasm causing neck pain/ decreased shoulder range of motion. Xray reviewed, no fractures. Pain med per pain scale PO and IV. Flexeril po 10 mg q8 hrs. Consult PT/OT COPD: Chronic, stable. Does not appear to be in acute exacerbation. Hypertension/hypotension: Reportedly history of hypertension, however BP is fairly controlled. Will continue to monitor. Rash the upper extremities: Possibly psoriasis. Follow-up with dermatology as outpatient. Continue steroid cream. Wound care. Blood cultures with 1 bottle positive GPC likely contaminant. Blood cx positive might be contaminant, will ask ID specialist on consult. Afebrile and no leukocytosis, no tachycardia. Morbid Obesity: BMI 51.8. Counseled on weight reduction. 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 Other chronic medical conditions include GERD, Hypothyroidism, MBD, depression, neuropathy: Stable at this time and will continue home medications as indicated. PT consulted/ OT consult Case management consulted. DVT Prophylaxis: Heparin sq/ SCD /TEDs Code Status full Discussed Condition With patient, nurse, family Discharge Planning pending improvement, clearance form consultants Janneth Zaragoza MD Sep 12, 2016 11:48
--- NOTE | 2016-09-12 13:40 | HHI.NPPN ---
Subjective History of Present Illness 56 year old female with left shoulder pain ESRD M,W,F Objective Data Data 09/11/16 09/12/16 19:00 07:00 Intake Total 480 ml Output Total 3000 ml Balance -3000 ml 480 ml Intake Oral 480 ml Output Hemodialysis 3000 ml # Voids 1 0 # Bowel Movements 1 0 Vital Signs Date Time Temp Pulse Resp B/P Pulse Ox O2 Delivery O2 Flow Rate FiO2 09/12/16 10:14 96 Nasal Cannula 3.00 09/12/16 08:00 97.5 102 16 100/56 95 09/12/16 04:00 96 09/12/16 01:24 96.6 105 18 109/66 96 09/11/16 21:33 Nasal Cannula 3.00 09/11/16 20:00 96.6 109 18 129/74 94 09/11/16 18:50 Room Air 09/11/16 17:37 96 Nasal Cannula 3.00 09/11/16 16:00 96.0 113 18 136/64 93 09/11/16 15:50 96 Nasal Cannula 3.00 09/11/16 13:45 97.0 108 20 129/70 96 -: 09/12/16 0555 09/12/16 0555 Physical Exam General Appearance: Well Developed, Well Nourished Neck Neck Exam: Neck Supple Pulmonary Resp Exam: Clear Bilaterally, Breath Sounds Equal Cardiology CV Exam: Regular, Normal Sinus Rhythm Gastrointestinal/Abdomen GI Exam: Soft, Bowel Sounds Present Extremeties Extremities Exam: Trace Edema (LEFT SHOULDER PAIN) Assessment/Plan Problem List: (1) ESRD (end stage renal disease) Plan: K 5.3 had HD yesterday Doing better Lt shoulder pain Staph Epi on Vanco can be arranged as out pt with HD now getting work up for cancer screening as Ct chest showed sclerotic bone changes likely due to ESRD and Hx of Tertiary Hyperparathyroid disease s/p Parathyroidectomy cancer screening in progress await NIRAV/SPEP (2) Hypocalcemia Plan: on calcium carbonate/Tums (3) Chest pain Plan: Patient has been observed (4) Hypertension Plan: stable blood pressure Problem Qualifiers (1) Chest pain: Qualified Code: R07.9 - Chest pain, unspecified type Frank Villagran MD Sep 12, 2016 13:40
[2016-09-12] MEDS: HYDROCORTISONE 1% LOTN 120 ML BTL TOPICAL SCH ×2 (14:39→22:00)
[2016-09-12] MEDS: NYSTATIN 100,000 U/GM PWD 15 GM BTL TOPICAL SCH ×2 (14:39→22:00)
[2016-09-12] MEDS: ACETAMINOPHEN/HYDROcodone 325 MG/5 MG TAB PO PRN (14:39)
--- NOTE | 2016-09-12 16:17 | RADRPT ---
EXAM DATE/TIME: 09/12/2016 15:57 [facility] COMPARISON: CT BRAIN W/O CONTRAST, April 16, 2010, 10:40. INDICATIONS : Altered mental status. RADIATION DOSE: 56.35 CTDIvol (mGy) MEDICAL HISTORY : Cardiovascular disease. Diabetes mellitus type 2. Renal disease, end stage.Hypertension. SURGICAL HISTORY : Hysterectomy. ENCOUNTER: Initial ACUITY: 1 day PAIN SCALE: 0/10 LOCATION: cranial TECHNIQUE: Multiple contiguous axial images were obtained of the head. Using automated exposure control and adj ustment of the mA and/or kV according to patient size, radiation dose was kept as low as reasonably a chievable to obtain optimal diagnostic quality images. FINDINGS: CEREBRUM: The ventricles are normal for age. No evidence of midline shift, mass lesion, hemorrhage or acute in farction. No extra-axial fluid collections are seen. POSTERIOR FOSSA: The cerebellum and brainstem are intact. The 4th ventricle is midline. The cerebellopontine angle i s unremarkable. EXTRACRANIAL: The visualized portion of the orbits is intact. SKULL: The calvaria is intact. No evidence of skull fracture. CONCLUSION: Stable and unremarkable CT brain compared to 2009. No new or significant changes. Alireza Lance MD on September 12, 2016 at 16:14 Board Certified Radiologist. This report was verified electronically.
[2016-09-12] MEDS: ATORVASTATIN 40 MG TAB PO SCH (21:00)
[2016-09-13] MEDS: CALCIUM CARBONATE 1.25 GM (CA 500 MG) TAB PO SCH ×4 (01:28→17:38)
[2016-09-13] MEDS: HEPARIN SODIUM - SQ 10,000 UNITS/ML VIAL SQ SCH ×2 (01:29→13:27)
[2016-09-13 04:00] VITALS: PULSE 88; RESP 19; O2SAT 98
[2016-09-13] MEDS: CALCIUM/VITAMIN D 250 MG/125 U TAB PO SCH ×3 (06:14→21:13)
[2016-09-13] MEDS: SUCRALFATE 1 GM TAB PO SCH ×2 (06:14→17:37)
[2016-09-13] MEDS: CALCIUM CARBONATE 500 MG CHEWABLE TAB CHEW SCH ×5 (06:14→21:14)
[2016-09-13] MEDS: LEVOTHYROXINE SODIUM 50 MCG TAB PO SCH (06:14)
[2016-09-13] MEDS: NYSTATIN 100,000 U/GM PWD 15 GM BTL TOPICAL SCH ×3 (06:15→21:14)
[2016-09-13] MEDS: HYDROCORTISONE 1% LOTN 120 ML BTL TOPICAL SCH ×3 (06:15→21:14)
[2016-09-13 08:00] VITALS: BP 132/77; PULSE 96; RESP 18; TEMP 96.2; O2SAT 99
[2016-09-13 08:01] LABS: AUTOMATED NEUTROPHIL # 5.3 TH/MM3 (1.8-7.7); BASOPHIL % 0.5 % (0.0-2.0); EOSINOPHIL # 0.7 TH/MM3 (0-0.4); HEMATOCRIT 38.3 % (35.0-46.0); HEMO FLAGS DIFF FINAL; LYMPH % 9.4 % (9.0-44.0); LYMPHOCYTE # 0.7 TH/MM3 (1.0-4.8); MEAN CORPUSCULAR HEMOGLOBIN 29.2 PG (27.0-34.0); MEAN CORPUSCULAR HGB CONC 31.4 % (32.0-36.0); NEUT % 69.1 % (16.0-70.0); PLATELET COUNT 291 TH/MM3 (150-450); RED BLOOD COUNT 4.12 MIL/MM3 (4.00-5.30); RED CELL DISTRIBUTION WIDTH 14.5 % (11.6-17.2); WHITE BLOOD COUNT 7.7 TH/MM3 (4.0-11.0)
[2016-09-13 08:49] LABS: BICARBONATE 27.2 MEQ/L (21.0-32.0); POTASSIUM 5.4 MEQ/L (3.5-5.1)
[2016-09-13] MEDS: PANTOPRAZOLE SOD 40 MG DELAYED RELEASE TAB PO SCH (09:00)
[2016-09-13] MEDS: buPROPion HCL 75 MG TAB PO SCH (09:00)
[2016-09-13] MEDS: SODIUM CHLORIDE 0.9% FLUSH 5 ML FLUSH FLUSH SCH ×2 (09:00→21:14)
[2016-09-13] MEDS: ASPIRIN EC 81 MG TABEC PO SCH (09:00)
[2016-09-13] MEDS: GABAPENTIN 100 MG CAP PO SCH ×3 (09:00→17:37)
[2016-09-13] MEDS: CALCITRIOL 0.25 MCG CAP PO SCH (09:00)
[2016-09-13] MEDS: VANCOMYCIN INJ 1,000 MG in SODIUM CHLOR 0.9% 250 ML INJ 250 ML IV SCH (10:46)
[2016-09-13] MEDS: HEPARIN SODIUM - IV 10,000 UNITS/10 ML VIAL PRN (10:47)
[2016-09-13] MEDS: GENTAMICIN SULFATE (DIALYSIS USE ONLY) 20 MG/2 ML VIAL IV PRN (10:47)
--- NOTE | 2016-09-13 11:35 | HHI.NPPN ---
Subjective History of Present Illness 56 year old female with left shoulder pain ESRD M,W,F Objective Data Data 09/12/16 09/13/16 19:00 07:00 Intake Total 720 ml 720 ml Output Total 0 ml Balance 720 ml 720 ml Intake Oral 720 ml 720 ml Output Stool Total 0 ml # Voids 0 2 # Bowel Movements 0 0 Vital Signs Date Time Temp Pulse Resp B/P Pulse Ox O2 Delivery O2 Flow Rate FiO2 09/13/16 08:00 96.2 96 18 132/77 99 09/13/16 04:00 88 19 98 09/12/16 23:58 96.8 96 16 105/69 98 09/12/16 23:00 95 Nasal Cannula 3.00 09/12/16 20:25 Nasal Cannula 3.00 09/12/16 19:18 Room Air 09/12/16 19:00 97.6 106 17 89/57 92 09/12/16 16:25 97.5 105 16 120/76 92 09/12/16 12:00 98.1 106 16 97/56 95 -: 09/13/16 0746 09/13/16 0646 Physical Exam General Appearance: Well Developed, Well Nourished Neck Neck Exam: Neck Supple Pulmonary Resp Exam: Clear Bilaterally, Breath Sounds Equal Cardiology CV Exam: Regular, Normal Sinus Rhythm Gastrointestinal/Abdomen GI Exam: Soft, Bowel Sounds Present Extremeties Extremities Exam: Trace Edema (LEFT SHOULDER PAIN) Assessment/Plan Problem List: (1) ESRD (end stage renal disease) Plan: seen during hemodialysis UF 2.5 L on 2 K [place] Vanco given Doing better Lt shoulder pain Staph Epi on Vanco can be arranged as out pt with HD now getting work up for cancer screening as Ct chest showed sclerotic bone changes likely due to ESRD and Hx of Tertiary Hyperparathyroid disease s/p Parathyroidectomy cancer screening in progress await NIRAV/SPEP (2) Hypocalcemia Plan: on calcium carbonate/Tums (3) Chest pain Plan: Patient has been observed (4) Hypertension Plan: stable blood pressure Problem Qualifiers (1) Chest pain: Qualified Code: R07.9 - Chest pain, unspecified type Frank Villagran MD Sep 13, 2016 11:35
[2016-09-13 12:00] VITALS: BP 103/61; PULSE 116; RESP 18; TEMP 98.1; O2SAT 96
--- NOTE | 2016-09-13 12:43 | HHI.PR ---
Subjective Remarks patient in very high spirits back from hemodialysis denies any chest pain or shortness of breath Objective Vitals Vital Signs Date Time Temp Pulse Resp B/P Pulse Ox O2 Delivery O2 Flow Rate FiO2 09/13/16 08:00 96.2 96 18 132/77 99 09/13/16 04:00 88 19 98 09/12/16 23:58 96.8 96 16 105/69 98 09/12/16 23:00 95 Nasal Cannula 3.00 09/12/16 20:25 Nasal Cannula 3.00 09/12/16 19:18 Room Air 09/12/16 19:00 97.6 106 17 89/57 92 09/12/16 16:25 97.5 105 16 120/76 92 I/O 09/12/16 09/12/16 09/12/16 09/13/16 09/13/16 09/13/16 07:00 15:00 23:00 07:00 15:00 23:00 Intake Total 120 ml 720 ml 480 ml 240 ml Output Total 0 ml 3000 ml Balance 120 ml 720 ml 480 ml 240 ml -3000 ml Intake Oral 120 ml 720 ml 480 ml 240 ml Output Stool Total 0 ml Hemodialysis 3000 ml # Voids 0 0 2 0 # Bowel Movements 0 0 0 0 Result Diagram: 09/13/16 0746 09/13/16 0646 Imaging Last Impressions Head CT 09/12/16 0000 Signed Impressions: Service Date/Time: Monday, September 12, 2016 15:57 - CONCLUSION: Stable and unremarkable CT brain compared to 2009. No new or significant changes. Alireza Lance MD Bone Scan Nuclear Medicine 09/11/16 0000 Signed Impressions: Service Date/Time: Sunday, September 11, 2016 08:13 - CONCLUSION: No definite scintigraphic evidence of osseous metastatic disease. Evidence of collateral vessels seen on blood pool images. Uptake in the knees, and lower legs in a symmetric fashion bilaterally does not have the typical appearance of neoplasm however plain radiographic correlation recommended. John Malave MD Abdomen/Pelvis CT 09/10/16 0000 Signed Impressions: Service Date/Time: Sunday, September 11, 2016 08:50 - CONCLUSION: 1. Extensive collateral vessels anterior abdominal wall and chest. 2. Fat containing ventral hernia at the umbilicus. 3. Atrophic kidneys with left renal cyst. 4. Diffuse sclerosis of the visualized bones are identified. Differential diagnosis would include sclerotic bones related to underlying renal osteodystrophy and interpreted clinical setting versus metastatic disease. 5. Bilateral basilar atelectasis is noted. John Malave MD Chest CT 09/08/16 0000 Signed Impressions: Service Date/Time: Thursday, September 08, 2016 19:58 - CONCLUSION: 1. Minimal patchy densities in the upper lobes nonspecific but could be infectious or inflammatory. 2. No cavitary lesion to suggest septic emboli. 3. Left sternoclavicular joint appears unremarkable. 4. Increased sclerosis throughout the axial skeleton concerning for diffuse systemic process/metastatic disease. Goyo Hahn MD Chest X-Ray 09/06/16 0809 Signed Impressions: Service Date/Time: Tuesday, September 06, 2016 08:52 - CONCLUSION: No acute disease. No significant change has occurred. Blas Butler MD Clavicle X-Ray 09/06/16 0000 Signed Impressions: Service Date/Time: Tuesday, September 06, 2016 08:55 - CONCLUSION: Vascular stents stable and unchanged in place. Otherwise negative Blas Butler MD Objective Remarks obese, not in distress awake and alert , oriented x 2 anicteric lungs- decreased breath sounds, no rales regular rhythm abdomen- soft, good bowel sounds, extremities- trace pretibial edema A/P Assessment and Plan 56y/o female with bony lesions, initially admitted for chest pain. Oncology consulted to render an opinion on newly found bone lesions. ho End-stage renal disease on hemodialysis. Hypertension. Chronic obstructive pulmonary disease. Congestive heart failure. Gastroesophageal reflux disease. Morbid obesity ESRD on HD: M/W/F. Nephrology consulted.Dr. Sparkle cervantes Chest Pain: Atypical. Troponin negative. EKG reviewed, no acute changes or significant change from previous. Was seen by Dr. Sloane han on last recent admission, patient has normal Nuclear Stress Test. Was cleared by cardiology for DC. CXR unremarkable. Muscle spasm causing neck pain/ decreased shoulder range of motion. Xray reviewed, no fractures. Pain med per pain scale PO and IV. Flexeril po 10 mg q8 hrs. Consult PT/OT COPD: Chronic, stable. Does not appear to be in acute exacerbation. Abnormal CT- work up in progress for possible malignancy Hypertension/hypotension: Reportedly history of hypertension, however BP is fairly controlled. Will continue to monitor. Rash the upper extremities: Possibly psoriasis. Follow-up with dermatology as outpatient. Continue steroid cream. Wound care. Staph Epi bacteremia IV Vancomycin for 4-6 weeks with HD Morbid Obesity: BMI 51.8. Counseled on weight reduction. 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 Sclerotic bone lesions oncology ff. no evidence of mets. Other chronic medical conditions include GERD, Hypothyroidism, MBD, depression, neuropathy: Stable at this time and will continue home medications as indicated. PT consulted/ OT consult Case management consulted. DVT Prophylaxis: Heparin sq/ SCD /TEDs Jovanny Sawyer MD Sep 13, 2016 12:43 Jovanny Sawyer MD Sep 13, 2016 12:43
[2016-09-13] MEDS: ACETAMINOPHEN/HYDROcodone 325 MG/5 MG TAB PO PRN ×2 (13:27→18:05)
[2016-09-13 16:00] VITALS: BP 105/64; PULSE 108; RESP 18; TEMP 97.2; O2SAT 95
--- NOTE | 2016-09-13 17:08 | PD.ONC.PN ---
Subjective Subjective Remarks Tired after the dialysis. Shoulder pain the same. Objective Data Date Time Temp Pulse Resp B/P Pulse Ox O2 Delivery O2 Flow Rate FiO2 09/13/16 12:00 98.1 116 18 103/61 96 09/13/16 08:00 96.2 96 18 132/77 99 09/13/16 04:00 88 19 98 09/12/16 23:58 96.8 96 16 105/69 98 09/12/16 23:00 95 Nasal Cannula 3.00 09/12/16 20:25 Nasal Cannula 3.00 09/12/16 19:18 Room Air 09/12/16 19:00 97.6 106 17 89/57 92 09/13/16 09/13/16 09/13/16 06:59 14:59 22:59 Intake Total 240 ml Output Total 0 ml 3000 ml Balance 240 ml -3000 ml Result Diagram: 09/13/16 0746 09/13/16 0646 Laboratory Results Laboratory Tests Test 09/13/16 09/13/16 06:46 07:46 Sodium Level 134 MEQ/L Potassium Level 5.4 MEQ/L Chloride Level 96 MEQ/L Carbon Dioxide Level 27.2 MEQ/L Anion Gap 11 MEQ/L Blood Urea Nitrogen 66 MG/DL Creatinine 9.49 MG/DL Estimat Glomerular Filtration 5 ML/MIN Rate Random Glucose 71 MG/DL Calcium Level 8.1 MG/DL White Blood Count 7.7 TH/MM3 Red Blood Count 4.12 MIL/MM3 Hemoglobin 12.0 GM/DL Hematocrit 38.3 % Mean Corpuscular Volume 93.0 FL Mean Corpuscular Hemoglobin 29.2 PG Mean Corpuscular Hemoglobin 31.4 % Concent Red Cell Distribution Width 14.5 % Platelet Count 291 TH/MM3 Mean Platelet Volume 7.5 FL Neutrophils (%) (Auto) 69.1 % Lymphocytes (%) (Auto) 9.4 % Monocytes (%) (Auto) 12.0 % Eosinophils (%) (Auto) 9.0 % Basophils (%) (Auto) 0.5 % Neutrophils # (Auto) 5.3 TH/MM3 Lymphocytes # (Auto) 0.7 TH/MM3 Monocytes # (Auto) 0.9 TH/MM3 Eosinophils # (Auto) 0.7 TH/MM3 Basophils # (Auto) 0.0 TH/MM3 CBC Comment DIFF FINAL Differential Comment Administered Medications Medications (Trade) Dose Ordered Sig/Mary Grace Route PRN Reason Start Time Stop Time Status Last Admin Dose Admin Sodium Chloride (NS 1000 ml Inj) 1,000 ml @ 0 mls/hr Q0M PRN IV For Prime & Rinse Back 09/06/16 11:50 09/11/16 11:18 Albumin Human (Albumin 25% Inj) 25 gm UNSCH PRN IV WITH DIALYSIS 09/06/16 12:00 09/08/16 13:26 Heparin Sodium (Porcine) (Heparin Inj) UNSCH PRN .XX WITH DIALYSIS 09/06/16 12:00 09/13/16 10:47 Gentamicin Sulfate (Gentamicin (Dialysis) Inj) 20 mg UNSCH PRN IV WITH DIALYSIS 09/06/16 12:00 09/13/16 10:47 IV Flush (NS Flush) 2 ml BID FLUSH 09/06/16 21:00 09/13/16 09:00 Sennosides (Senokot) 17.2 mg Q12H PRN PO CONSTIPATION 09/06/16 12:00 09/07/16 09:59 Heparin Sodium (Porcine) (Heparin Inj) 5,000 units Q12H SQ 09/06/16 12:00 09/13/16 01:29 Calcium Carbonate (Oscal) 2,000 mg Q6HR PO 09/06/16 18:00 09/13/16 06:14 Aspirin (Ecotrin Ec) 81 mg DAILY PO 09/07/16 09:00 09/12/16 10:20 Atorvastatin Calcium (Lipitor) 40 mg HS PO 09/06/16 21:00 09/12/16 21:00 Bupropion HCl (Wellbutrin) 75 mg DAILY PO 09/07/16 09:00 09/12/16 10:19 Calcitriol (Rocaltrol) 0.25 mcg DAILY PO 09/07/16 09:00 09/12/16 10:19 Calcium/Vitamin D (Oscal-D 250-125) 250 mg Q8HR PO 09/06/16 22:00 09/13/16 06:14 Gabapentin (Neurontin) 200 mg TID PO 09/06/16 18:00 09/12/16 18:42 Hydrocortisone (Hydrocortisone 1% Lotion) 1 applic Q8HR TOPICAL 09/06/16 22:00 09/13/16 06:15 Levothyroxine Sodium (Synthroid) 50 mcg DAILY@06 PO 09/07/16 06:00 09/13/16 06:14 Nystatin (Mycostatin Powder) 1 applic Q8HR TOPICAL 09/06/16 22:00 09/13/16 06:15 Pantoprazole Sodium (Protonix) 40 mg DAILY PO 09/07/16 09:00 09/12/16 10:20 Sucralfate (Carafate) 1 gm BIDAC PO 09/07/16 07:00 09/13/16 06:14 Acetaminophen/ Hydrocodone Bitart ([place] 5-325 Mg) 1 tab Q4H PRN PO PAIN SCALE 3 TO 5 09/06/16 17:00 09/13/16 13:27 Acetaminophen/ Hydrocodone Bitart ([place] 10-325 Mg) 1 tab Q4H PRN PO PAIN SCALE 6 TO 10 09/06/16 17:00 09/12/16 03:42 Multi-Ingredient Ointment (Eucerin Cream) 1 applic Q6H PRN TOPICAL itching and rash hands and arm 09/09/16 17:00 09/11/16 21:35 Objective Remarks GENERAL: Well-nourished, well-developed patient. Obese SKIN: Warm and dry. HEAD: Normocephalic. EYES: No scleral icterus. No injection or drainage. NECK: Supple, trachea midline. No JVD or lymphadenopathy. LYMPHATIC: No adenopathy. CARDIOVASCULAR: Regular rate and rhythm without murmurs. RESPIRATORY: Breath sounds equal bilaterally. No accessory muscle use. GASTROINTESTINAL: Abdomen soft, non-tender, nondistended. EXTREMITIES: No cyanosis, trace ankles edema. MUSCULOSKELETAL: Adequate muscle tone. NEUROLOGICAL: No obvious focal deficit. Awake, alert, and oriented x3. PSYCHIATRIC: Appropriate mood and affect; insight and judgment normal. Assessment/Plan Problem List: (1) sclerotic bone lesion Status: Acute Plan: --diffuse sclerosis on the axial skeleton. --only complaining of left shoulder pain. no back pain or any bone pain. --nonspecific finding and it does not appear to be metastatic disease. --CT chest no mass or adenopathy. --CT of the abdomen and pelvis shows diffuse sclerosis --bone scan: no mets --NIRAV level and SPEP pending, PTH normal --This is most c/w renal osteodystrophy and not malignancy Assessment 56y/o female with bony lesions, initially admitted for chest pain. Oncology consulted to render an opinion on newly found bone lesions. ho End-stage renal disease on hemodialysis. Hypertension. Chronic obstructive pulmonary disease. Congestive heart failure. Gastroesophageal reflux disease. Morbid obesity Plan 1. await NIRAV level, serum protein electrophoresis 2. supportive care Stephen Agosto MD Sep 13, 2016 17:08
[2016-09-13 20:00] VITALS: BP 92/62; PULSE 101; RESP 18; TEMP 98; O2SAT 98
[2016-09-13 20:31] LABS: ALBUMIN SPE 3.61 GM/DL (3.50-5.00); ALPHA 1 GLOBULIN 0.32 GM/DL (0.11-0.29); ALPHA 2 GLOBULIN 1.18 GM/DL (0.22-1.00); BETA GLOBULINS (SPE) 0.75 GM/DL (0.53-1.03)
[2016-09-13] MEDS: ATORVASTATIN 40 MG TAB PO SCH (21:14)
[2016-09-14] VITALS (7 sets, daily range): BP systolic 96–125; BP diastolic 52–73; PULSE 97–100; RESP 17–18; TEMP 97–97.9; O2SAT 95–98
[2016-09-14] MEDS: HEPARIN SODIUM - SQ 10,000 UNITS/ML VIAL SQ SCH ×2 (00:13→12:27)
[2016-09-14] MEDS: CALCIUM CARBONATE 1.25 GM (CA 500 MG) TAB PO SCH ×5 (00:13→20:01)
[2016-09-14] MEDS: ACETAMINOPHEN/HYDROcodone 325 MG/5 MG TAB PO PRN ×3 (06:07→20:16)
[2016-09-14] MEDS: LEVOTHYROXINE SODIUM 50 MCG TAB PO SCH (06:07)
[2016-09-14] MEDS: CALCIUM/VITAMIN D 250 MG/125 U TAB PO SCH ×3 (06:07→20:02)
[2016-09-14] MEDS: CALCIUM CARBONATE 500 MG CHEWABLE TAB CHEW SCH ×5 (06:07→20:01)
[2016-09-14] MEDS: SUCRALFATE 1 GM TAB PO SCH ×2 (06:07→17:25)
[2016-09-14] MEDS: NYSTATIN 100,000 U/GM PWD 15 GM BTL TOPICAL SCH ×3 (06:10→20:02)
[2016-09-14] MEDS: HYDROCORTISONE 1% LOTN 120 ML BTL TOPICAL SCH ×3 (06:10→20:03)
[2016-09-14] MEDS: buPROPion HCL 75 MG TAB PO SCH (09:49)
[2016-09-14] MEDS: ASPIRIN EC 81 MG TABEC PO SCH (09:49)
[2016-09-14] MEDS: CALCITRIOL 0.25 MCG CAP PO SCH (09:49)
[2016-09-14] MEDS: SODIUM CHLORIDE 0.9% FLUSH 5 ML FLUSH FLUSH SCH ×2 (09:50→20:01)
[2016-09-14] MEDS: GABAPENTIN 100 MG CAP PO SCH ×3 (09:50→17:25)
[2016-09-14] MEDS: PANTOPRAZOLE SOD 40 MG DELAYED RELEASE TAB PO SCH (09:50)
--- NOTE | 2016-09-14 10:11 | PD.ONC.PN ---
Subjective Subjective Remarks Afebrile overnight. Patient resting comfortably without complaint. She feels much more alert today. Objective Data Date Time Temp Pulse Resp B/P Pulse Ox O2 Delivery O2 Flow Rate FiO2 09/14/16 09:50 97 Nasal Cannula 3.00 09/14/16 07:58 97.7 100 18 108/64 97 09/14/16 04:00 97.0 100 17 99/56 96 09/14/16 00:00 97.3 100 17 96/52 96 09/13/16 20:00 98.0 101 18 92/62 98 09/13/16 18:26 Nasal Cannula 3.00 09/13/16 16:00 97.2 108 18 105/64 95 09/13/16 12:00 98.1 116 18 103/61 96 09/14/16 09/14/16 09/14/16 06:59 14:59 22:59 Intake Total 240 ml Balance 240 ml Result Diagram: 09/13/16 0746 09/13/16 0646 Administered Medications Medications (Trade) Dose Ordered Sig/Mary Grace Route PRN Reason Start Time Stop Time Status Last Admin Dose Admin Sodium Chloride (NS 1000 ml Inj) 1,000 ml @ 0 mls/hr Q0M PRN IV For Prime & Rinse Back 09/06/16 11:50 09/11/16 11:18 Albumin Human (Albumin 25% Inj) 25 gm UNSCH PRN IV WITH DIALYSIS 09/06/16 12:00 09/08/16 13:26 Heparin Sodium (Porcine) (Heparin Inj) UNSCH PRN .XX WITH DIALYSIS 09/06/16 12:00 09/13/16 10:47 Gentamicin Sulfate (Gentamicin (Dialysis) Inj) 20 mg UNSCH PRN IV WITH DIALYSIS 09/06/16 12:00 09/13/16 10:47 IV Flush (NS Flush) 2 ml BID FLUSH 09/06/16 21:00 09/14/16 09:50 Magnesium Hydroxide (Milk Of Magnesia Liq) 30 ml Q12H PRN PO CONSTIPATION 09/06/16 12:00 09/14/16 06:08 Sennosides (Senokot) 17.2 mg Q12H PRN PO CONSTIPATION 09/06/16 12:00 09/07/16 09:59 Heparin Sodium (Porcine) (Heparin Inj) 5,000 units Q12H SQ 09/06/16 12:00 09/14/16 00:13 Calcium Carbonate (Oscal) 2,000 mg Q6HR PO 09/06/16 18:00 09/14/16 06:07 Aspirin (Ecotrin Ec) 81 mg DAILY PO 09/07/16 09:00 09/14/16 09:49 Atorvastatin Calcium (Lipitor) 40 mg HS PO 09/06/16 21:00 09/13/16 21:14 Bupropion HCl (Wellbutrin) 75 mg DAILY PO 09/07/16 09:00 09/14/16 09:49 Calcitriol (Rocaltrol) 0.25 mcg DAILY PO 09/07/16 09:00 09/14/16 09:49 Calcium/Vitamin D (Oscal-D 250-125) 250 mg Q8HR PO 09/06/16 22:00 09/14/16 06:07 Gabapentin (Neurontin) 200 mg TID PO 09/06/16 18:00 09/14/16 09:50 Hydrocortisone (Hydrocortisone 1% Lotion) 1 applic Q8HR TOPICAL 09/06/16 22:00 09/14/16 06:10 Levothyroxine Sodium (Synthroid) 50 mcg DAILY@06 PO 09/07/16 06:00 09/14/16 06:07 Nystatin (Mycostatin Powder) 1 applic Q8HR TOPICAL 09/06/16 22:00 09/14/16 06:10 Pantoprazole Sodium (Protonix) 40 mg DAILY PO 09/07/16 09:00 09/14/16 09:50 Sucralfate (Carafate) 1 gm BIDAC PO 09/07/16 07:00 09/14/16 06:07 Acetaminophen/ Hydrocodone Bitart ([place] 5-325 Mg) 1 tab Q4H PRN PO PAIN SCALE 3 TO 5 09/06/16 17:00 09/14/16 06:07 Acetaminophen/ Hydrocodone Bitart ([place] 10-325 Mg) 1 tab Q4H PRN PO PAIN SCALE 6 TO 10 09/06/16 17:00 09/12/16 03:42 Multi-Ingredient Ointment (Eucerin Cream) 1 applic Q6H PRN TOPICAL itching and rash hands and arm 09/09/16 17:00 09/11/16 21:35 Objective Remarks GENERAL: Middle aged obese female, sitting up in chair next to bed in nad. SKIN: Dry, flaky skin HEAD: Normocephalic. EYES: No scleral icterus. No injection or drainage. NECK: Supple, trachea midline. CARDIOVASCULAR: +S1/S2, mildly tachycardic RESPIRATORY: Breath sounds equal bilaterally. No accessory muscle use. GASTROINTESTINAL: Abdomen soft, non-tender, nondistended. EXTREMITIES: No cyanosis MUSCULOSKELETAL: Adequate muscle tone. NEUROLOGICAL: awake, and alert. much more clear today. able to move extremities. Assessment/Plan Problem List: (1) sclerotic bone lesion Status: Acute Plan: --diffuse sclerosis on the axial skeleton. --only complaining of left shoulder pain. no back pain or any bone pain. --nonspecific finding and it does not appear to be metastatic disease. --CT chest no mass or adenopathy. --CT of the abdomen and pelvis shows diffuse sclerosis --bone scan: no mets --PTH normal --This is most c/w renal osteodystrophy and not malignancy Assessment 56y/o female with bony lesions, initially admitted for chest pain. Oncology consulted to render an opinion on newly found bone lesions. ho End-stage renal disease on hemodialysis. Hypertension. Chronic obstructive pulmonary disease. Congestive heart failure. Gastroesophageal reflux disease. Morbid obesity Plan 1. bone lesions consistent with renal osteodystrophy. hematology will sign off. no sign of malignancy. please call or reconsult if needed. Attending Statement The exam, history, and the medical decision-making described in the above note were completed with the assistance of the mid-level provider. I reviewed and agree with the findings presented. I attest that I had a [id number] encounter with the patient on the same day, and personally performed and documented my assessment and findings in the medical record. No new bone pain. NIRAV normal. No clear evidence of mets disease. I will sign off. Thanks. Mili Junior Sep 14, 2016 10:11 Stephen Agosto MD Sep 14, 2016 13:35
--- NOTE | 2016-09-14 12:03 | HHI.PR ---
Subjective Remarks feels great, no pain comlains, shortness of breath, nausea or vomiting, or abdominal pain Objective Vitals Vital Signs Date Time Temp Pulse Resp B/P Pulse Ox O2 Delivery O2 Flow Rate FiO2 09/14/16 09:50 97 Nasal Cannula 3.00 09/14/16 07:58 97.7 100 18 108/64 97 09/14/16 04:00 97.0 100 17 99/56 96 09/14/16 00:00 97.3 100 17 96/52 96 09/13/16 20:00 98.0 101 18 92/62 98 09/13/16 18:26 Nasal Cannula 3.00 09/13/16 16:00 97.2 108 18 105/64 95 I/O 09/13/16 09/13/16 09/13/16 09/14/16 09/14/16 09/14/16 07:00 15:00 23:00 07:00 15:00 23:00 Intake Total 240 ml 240 ml 360 ml 240 ml Output Total 0 ml 3000 ml Balance 240 ml -2760 ml 360 ml 240 ml Intake Oral 240 ml 240 ml 360 ml 240 ml Output Stool Total 0 ml Hemodialysis 3000 ml # Voids 0 0 0 0 # Bowel Movements 0 0 1 0 Result Diagram: 09/13/16 0746 09/13/16 0646 Imaging Last Impressions Head CT 09/12/16 0000 Signed Impressions: Service Date/Time: Monday, September 12, 2016 15:57 - CONCLUSION: Stable and unremarkable CT brain compared to 2009. No new or significant changes. Alireza Lance MD Bone Scan Nuclear Medicine 09/11/16 0000 Signed Impressions: Service Date/Time: Sunday, September 11, 2016 08:13 - CONCLUSION: No definite scintigraphic evidence of osseous metastatic disease. Evidence of collateral vessels seen on blood pool images. Uptake in the knees, and lower legs in a symmetric fashion bilaterally does not have the typical appearance of neoplasm however plain radiographic correlation recommended. John Malave MD Abdomen/Pelvis CT 09/10/16 0000 Signed Impressions: Service Date/Time: Sunday, September 11, 2016 08:50 - CONCLUSION: 1. Extensive collateral vessels anterior abdominal wall and chest. 2. Fat containing ventral hernia at the umbilicus. 3. Atrophic kidneys with left renal cyst. 4. Diffuse sclerosis of the visualized bones are identified. Differential diagnosis would include sclerotic bones related to underlying renal osteodystrophy and interpreted clinical setting versus metastatic disease. 5. Bilateral basilar atelectasis is noted. John Malave MD Chest CT 09/08/16 0000 Signed Impressions: Service Date/Time: Thursday, September 08, 2016 19:58 - CONCLUSION: 1. Minimal patchy densities in the upper lobes nonspecific but could be infectious or inflammatory. 2. No cavitary lesion to suggest septic emboli. 3. Left sternoclavicular joint appears unremarkable. 4. Increased sclerosis throughout the axial skeleton concerning for diffuse systemic process/metastatic disease. Goyo Hahn MD Chest X-Ray 09/06/16 0809 Signed Impressions: Service Date/Time: Tuesday, September 06, 2016 08:52 - CONCLUSION: No acute disease. No significant change has occurred. Blas Butler MD Clavicle X-Ray 09/06/16 0000 Signed Impressions: Service Date/Time: Tuesday, September 06, 2016 08:55 - CONCLUSION: Vascular stents stable and unchanged in place. Otherwise negative Blas Butler MD Objective Remarks obese, not in distress awake and alert , oriented x anicteric lungs- decreased breath sounds, no rales regular rhythm abdomen- soft, good bowel sounds, extremities- no edema right groin- permcath site- no signs of infectio A/P Assessment and Plan 56y/o female with bony lesions, initially admitted for chest pain. Oncology consulted to render an opinion on newly found bone lesions. ho End-stage renal disease on hemodialysis. Hypertension. Chronic obstructive pulmonary disease. Congestive heart failure. Gastroesophageal reflux disease. Morbid obesity ESRD on HD: M/W/F. Nephrology Dr. Villagran ff Chest Pain: Atypical. Troponin negative. EKG reviewed, no acute changes or significant change from previous. Was seen by Dr. Sloane han on last recent admission, patient has normal Nuclear Stress Test. Was cleared by cardiology for DC. CXR unremarkable. Muscle spasm causing neck pain/ decreased shoulder range of motion. Xray reviewed, no fractures. Pain med per pain scale PO and IV. Flexeril po 10 mg q8 hrs. Consult PT/OT COPD: Chronic, stable. Does not appear to be in acute exacerbation. Abnormal CT- work up in progress for possible malignancy Hypertension/hypotension: Reportedly history of hypertension, however BP is fairly controlled. Will continue to monitor. Rash the upper extremities: Possibly psoriasis. Follow-up with dermatology as outpatient. Continue steroid cream. Wound care. Staph Epi bacteremia IV Vancomycin for 4-6 weeks with HD Morbid Obesity: BMI 51.8. Counseled on weight reduction. 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 Sclerotic bone lesions oncology ff. no evidence of mets. Other chronic medical conditions include GERD, Hypothyroidism, MBD, depression, neuropathy: Stable at this time and will continue home medications as indicated. PT consulted/ OT consult Case management consulted. DVT Prophylaxis: Heparin sq/ SCD /TEDs DC today or in am with home health care- Jovanny Sawyer MD Sep 14, 2016 12:03
--- NOTE | 2016-09-14 12:05 | HHI.FF ---
Face to Face Verification Diagnosis: (1) Gastric ulcer (2) Severe sepsis (3) ESRD (end stage renal disease) (4) DM (diabetes mellitus) Physical Therapy Order: Evaluate and Treat, Improve ambulation Occupational Therapy Order: Evaluate and Treat, Improve ADL Speech Therapy Order: To Improve: Cognitive skills Home Health Nursing Order: Medical education Signs/symptoms of disease process Diabetic education Medication education-adverse effect Wound care and dressing changes Instructions: make sure permcath site- is taken cared of and monitored closely for any signs of infection Home Health Aide Order: To Assist In: Bathing and personal care, 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 My clinical findings support the need for the requested home health care services because: Ltd mobility - disease progression Deconditioned w/ increased weakness Need for psychosocial assistance I certify that my clinical findings support that this patient is homebound because: Need for psychosocial assistance Jovanny Sawyer MD Sep 14, 2016 12:05
--- NOTE | 2016-09-14 12:08 | HHI.DS ---
Discharge Summary Admission Date Sep 06, 2016 at 11:59 Discharge Date: Sep 14, 2016 Admitting Diagnosis hypocalcemia, end-stage renal disease, hemodialysis dependent, chest (1) ESRD on peritoneal dialysis ICD Code: N18.6 Diagnosis: Principal Procedures hemodialysis Brief History - From Admission 56-year-old female with a PMH of HTN, ESRD on HD M/W/F, COPD, CHF (Echo 05/11/16 w / EF 55-60%) and GERD who came to the ER w/ complaints of chest pain x2 days. Note the patient was recently admitted with similar complaints. and was cleared by cardiology for DC. States she's had some "congestion" as well, but denies fever, chills or SOB. Troponin negative, EKG with no acute changes. CXR negative for acute findings. Patient currently asymptomatic. Patient main complaint is left shoulder pain and inability to move hr shoulder due to pain, Xray reviewed without any sign of fracture. She does have decreased ROM of the left shoulder and the head 2/2 PAIN. Patient however has severe muscle spasm. No n/v/d/c. No diaphoresis, palpitations. CBC/BMP: 09/13/16 0746 09/13/16 0646 Significant Findings Laboratory Tests Test 09/12/16 09/12/16 09/13/16 09/13/16 05:55 13:10 06:46 07:46 Red Blood Count 3.77 MIL/MM3 (4.00-5.30) Hemoglobin 11.0 GM/DL (11.6-15.3) Hematocrit 34.6 % (35.0-46.0) Mean Corpuscular Hemoglobin 31.8 % 31.4 % Concent (32.0-36.0) (32.0-36.0) Neutrophils (%) (Auto) 77.5 % (16.0-70.0) Lymphocytes (%) (Auto) 5.8 % (9.0-44.0) Monocytes (%) (Auto) 11.6 % 12.0 % (0.0-8.0) (0.0-8.0) Eosinophils (%) (Auto) 4.7 % (0.0-4.0) 9.0 % (0.0-4.0) Neutrophils # (Auto) 7.9 TH/MM3 (1.8-7.7) Lymphocytes # (Auto) 0.6 TH/MM3 0.7 TH/MM3 (1.0-4.8) (1.0-4.8) Monocytes # (Auto) 1.2 TH/MM3 (0-0.9) Eosinophils # (Auto) 0.5 TH/MM3 0.7 TH/MM3 (0-0.4) (0-0.4) Sodium Level 135 MEQ/L 134 MEQ/L (136-145) (136-145) Potassium Level 5.3 MEQ/L 5.4 MEQ/L (3.5-5.1) (3.5-5.1) Blood Urea Nitrogen 52 MG/DL (7-18) 66 MG/DL (7-18) Creatinine 8.09 MG/DL 9.49 MG/DL (0.50-1.00) (0.50-1.00) Estimat Glomerular Filtration 6 ML/MIN (>89) 5 ML/MIN (>89) Rate Calcium Level 8.2 MG/DL 8.1 MG/DL (8.5-10.1) (8.5-10.1) Total Protein 8.0 GM/DL (6.0-7.6) Albumin/Globulin Ratio 0.82 (1.39-2.23) Intzn-9-Bdtejvbfx 0.32 GM/DL (0.11-0.29) Ynfiz-5-Zescjaoex 1.18 GM/DL (0.22-1.00) Gamma Globulins 2.14 GM/DL (0.50-1.39) Chloride Level 96 MEQ/L (98-107) Random Glucose 71 MG/DL (74-106) Imaging Last Impressions Head CT 09/12/16 0000 Signed Impressions: Service Date/Time: Monday, September 12, 2016 15:57 - CONCLUSION: Stable and unremarkable CT brain compared to 2009. No new or significant changes. Alireza Lance MD Bone Scan Nuclear Medicine 09/11/16 0000 Signed Impressions: Service Date/Time: Sunday, September 11, 2016 08:13 - CONCLUSION: No definite scintigraphic evidence of osseous metastatic disease. Evidence of collateral vessels seen on blood pool images. Uptake in the knees, and lower legs in a symmetric fashion bilaterally does not have the typical appearance of neoplasm however plain radiographic correlation recommended. John Malave MD Abdomen/Pelvis CT 09/10/16 0000 Signed Impressions: Service Date/Time: Sunday, September 11, 2016 08:50 - CONCLUSION: 1. Extensive collateral vessels anterior abdominal wall and chest. 2. Fat containing ventral hernia at the umbilicus. 3. Atrophic kidneys with left renal cyst. 4. Diffuse sclerosis of the visualized bones are identified. Differential diagnosis would include sclerotic bones related to underlying renal osteodystrophy and interpreted clinical setting versus metastatic disease. 5. Bilateral basilar atelectasis is noted. John Malave MD Chest CT 09/08/16 0000 Signed Impressions: Service Date/Time: Thursday, September 08, 2016 19:58 - CONCLUSION: 1. Minimal patchy densities in the upper lobes nonspecific but could be infectious or inflammatory. 2. No cavitary lesion to suggest septic emboli. 3. Left sternoclavicular joint appears unremarkable. 4. Increased sclerosis throughout the axial skeleton concerning for diffuse systemic process/metastatic disease. Goyo Hahn MD Chest X-Ray 09/06/16 0809 Signed Impressions: Service Date/Time: Tuesday, September 06, 2016 08:52 - CONCLUSION: No acute disease. No significant change has occurred. Blas Butler MD Clavicle X-Ray 09/06/16 0000 Signed Impressions: Service Date/Time: Tuesday, September 06, 2016 08:55 - CONCLUSION: Vascular stents stable and unchanged in place. Otherwise negative Blas Butler MD PE at Discharge obese, not in distress awake and alert , oriented x anicteric lungs- decreased breath sounds, no rales regular rhythm abdomen- soft, good bowel sounds, extremities- no edema right groin- permcath site- no signs of infection Pt update on day of discharge awake and alert tolerating HD no nausea or vomiting Hospital Course 56y/o female with bony lesions, initially admitted for chest pain. Oncology consulted to render an opinion on newly found bone lesions. ho End-stage renal disease on hemodialysis. Hypertension. Chronic obstructive pulmonary disease. Congestive heart failure. Gastroesophageal reflux disease. Morbid obesity ESRD on HD: M/W/F. Nephrology Dr. Villagran ff Chest Pain: Atypical. Troponin negative. EKG reviewed, no acute changes or significant change from previous. Was seen by Dr. Sloane han on last recent admission, patient has normal Nuclear Stress Test. Was cleared by cardiology for DC. CXR unremarkable. Muscle spasm causing neck pain/ decreased shoulder range of motion. Xray reviewed, no fractures. Pain med per pain scale PO and IV. Flexeril po 10 mg q8 hrs. Consult PT/OT COPD: Chronic, stable. Does not appear to be in acute exacerbation. Abnormal CT- work up in progress for possible malignancy Hypertension/hypotension: Reportedly history of hypertension, however BP is fairly controlled. Will continue to monitor. Rash the upper extremities: Possibly psoriasis. Follow-up with dermatology as outpatient. Continue steroid cream. Wound care. Staph Epi bacteremia IV Vancomycin for 4-6 weeks with HD Morbid Obesity: BMI 51.8. Counseled on weight reduction. 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 Sclerotic bone lesions oncology ff. no evidence of mets. Other chronic medical conditions include GERD, Hypothyroidism, MBD, depression, neuropathy: Stable at this time and will continue home medications as indicated. PT consulted/ OT consult Case management consulted. Pt Condition on Discharge: Stable Discharge Disposition: Disch w/ Home Health Serv Discharge Time: <= 30 minutes Discharge Instructions DIET: Follow Instructions for: Heart Healthy Diet, Diabetic Diet, Dialysis Diet Speech Therapy-Diet Recommends: Regular Activities you can perform: Weight Bearing as Trudi Follow up Referrals: Nephrology - 3-5 Days PCP Follow-up - 3-5 Days New Medications: Calcium Carbonate (Antacid) (Calcium Carbonate (Antacid)) 500 Mg Chew 500 MG CHEW 5 TIMES A DAY RENAL Days 30 EA Continued Medications: Aspirin DR (Aspirin EC) 81 Mg Tabdr 81 MG PO DAILY Prevent Blood Clot #30 TAB Atorvastatin (Atorvastatin) 40 Mg Tab 40 MG PO HS Cholesterol Management #30 Ref 0 TAB Bupropion HCl (Bupropion HCl) 75 Mg Tab 75 MG PO DAILY Control Depression Ref 0 TAB Calcitriol (Rocaltrol) 0.25 Mcg Cap 0.25 MCG PO DAILY Calcium Supplement #30 Ref 0 CAP Gabapentin (Gabapentin) 100 Mg Cap 200 MG PO TID #60 Ref 0 CAP Hydrocortisone (Topical) (Hydroskin) 1 % Lot 1 APPLIC TOPICAL Q8HR Rash #1 TUBE Levothyroxine (Levothyroxine) 50 Mcg Tab 50 MCG PO DAILY Thyroid #30 Ref 0 TAB Nystatin Topical (Nystop Topical) 100,000 Unit/Gm Powd 1 APPLIC TOPICAL Q8HR Rash #1 TUBE Pantoprazole (Pantoprazole) 40 Mg Tab 40 MG PO DAILY Reflux #30 Ref 0 TAB Sucralfate (Sucralfate) 1 Gm Tab 1 GM PO BIDAC on empty stomach Duodenal ulcer #120 Ref 0 TAB Discontinued Medications: Calcium Carbonate-Vitamin D (Oscal 500/200 D-3) 500-200 Mg-Unit Tab 4 TAB PO Q8HR Calcium Supplement Ref 0 TAB Jovanny Sawyer MD Sep 14, 2016 12:08
--- NOTE | 2016-09-14 12:47 | HHI.NPPN ---
Subjective History of Present Illness 56 year old female with left shoulder pain ESRD M,W,F Objective Data Data 09/13/16 09/14/16 19:00 07:00 Intake Total 240 ml 600 ml Output Total 3000 ml Balance -2760 ml 600 ml Intake Oral 240 ml 600 ml Hemodialysis 3000 ml # Voids 0 0 # Bowel Movements 0 1 Vital Signs Date Time Temp Pulse Resp B/P Pulse Ox O2 Delivery O2 Flow Rate FiO2 09/14/16 09:50 97 Nasal Cannula 3.00 09/14/16 07:58 97.7 100 18 108/64 97 09/14/16 04:00 97.0 100 17 99/56 96 09/14/16 00:00 97.3 100 17 96/52 96 09/13/16 20:00 98.0 101 18 92/62 98 09/13/16 18:26 Nasal Cannula 3.00 09/13/16 16:00 97.2 108 18 105/64 95 -: 09/13/16 0746 09/13/16 0646 Physical Exam General Appearance: Well Developed, Well Nourished Neck Neck Exam: Neck Supple Pulmonary Resp Exam: Clear Bilaterally, Breath Sounds Equal Cardiology CV Exam: Regular, Normal Sinus Rhythm Gastrointestinal/Abdomen GI Exam: Soft, Bowel Sounds Present Extremeties Extremities Exam: Trace Edema (LEFT SHOULDER PAIN) Assessment/Plan Problem List: (1) ESRD (end stage renal disease) Plan: HD tomorrow Vanco given arrange for out pt Doing better Lt shoulder pain Staph Epi on Vanco can be arranged as out pt with HD now getting work up for cancer screening as Ct chest showed sclerotic bone changes likely due to ESRD and Hx of Tertiary Hyperparathyroid disease s/p Parathyroidectomy cancer screening neg (2) Hypocalcemia Plan: on calcium carbonate/Tums (3) Chest pain Plan: Patient has been observed (4) Hypertension Plan: stable blood pressure Problem Qualifiers (1) Chest pain: Qualified Code: R07.9 - Chest pain, unspecified type Frank Villagran MD Sep 14, 2016 12:47
[2016-09-14] MEDS: ATORVASTATIN 40 MG TAB PO SCH (20:01)
[2016-09-15] VITALS (7 sets, daily range): BP systolic 89–128; BP diastolic 53–73; PULSE 95–101; RESP 17–18; TEMP 97.3–98; O2SAT 93–100
[2016-09-15] MEDS: HEPARIN SODIUM - SQ 10,000 UNITS/ML VIAL SQ SCH ×2 (00:29→11:46)
[2016-09-15] MEDS: ACETAMINOPHEN/HYDROcodone 325 MG/5 MG TAB PO PRN ×2 (00:34→08:54)
[2016-09-15] MEDS: CALCIUM CARBONATE 1.25 GM (CA 500 MG) TAB PO SCH ×3 (05:10→18:32)
[2016-09-15] MEDS: LEVOTHYROXINE SODIUM 50 MCG TAB PO SCH (05:10)
[2016-09-15] MEDS: CALCIUM/VITAMIN D 250 MG/125 U TAB PO SCH ×2 (05:10→13:58)
[2016-09-15] MEDS: CALCIUM CARBONATE 500 MG CHEWABLE TAB CHEW SCH ×4 (05:10→18:31)
[2016-09-15] MEDS: SUCRALFATE 1 GM TAB PO SCH ×2 (05:12→16:00)
[2016-09-15] MEDS: NYSTATIN 100,000 U/GM PWD 15 GM BTL TOPICAL SCH ×2 (05:12→14:00)
[2016-09-15] MEDS: HYDROCORTISONE 1% LOTN 120 ML BTL TOPICAL SCH ×2 (05:12→14:00)
[2016-09-15] MEDS: CALCITRIOL 0.25 MCG CAP PO SCH (08:53)
[2016-09-15] MEDS: PANTOPRAZOLE SOD 40 MG DELAYED RELEASE TAB PO SCH (08:53)
[2016-09-15] MEDS: GABAPENTIN 100 MG CAP PO SCH ×3 (08:53→18:32)
[2016-09-15] MEDS: ASPIRIN EC 81 MG TABEC PO SCH (08:53)
[2016-09-15] MEDS: buPROPion HCL 75 MG TAB PO SCH (08:53)
[2016-09-15] MEDS: SODIUM CHLORIDE 0.9% FLUSH 5 ML FLUSH FLUSH SCH (08:54)
--- NOTE | 2016-09-15 09:27 | HHI.PR ---
Subjective Remarks feeling "great" no complains good po Objective Vitals Vital Signs Date Time Temp Pulse Resp B/P Pulse Ox O2 Delivery O2 Flow Rate FiO2 09/15/16 07:55 97.8 95 18 128/73 98 09/15/16 04:00 97.8 100 18 109/59 93 09/15/16 00:50 3.00 09/15/16 00:00 98.0 101 17 114/69 99 09/14/16 22:30 97 09/14/16 21:37 92 Nasal Cannula 3.00 09/14/16 20:35 98 Nasal Cannula 3.00 09/14/16 20:00 97.9 98 17 125/73 95 09/14/16 09:50 97 Nasal Cannula 3.00 I/O 09/14/16 09/14/16 09/14/16 09/15/16 09/15/16 09/15/16 07:00 15:00 23:00 07:00 15:00 23:00 Intake Total 240 ml 720 ml 480 ml 240 ml Balance 240 ml 720 ml 480 ml 240 ml Intake Oral 240 ml 720 ml 480 ml 240 ml # Voids 0 1 0 0 # Bowel Movements 0 1 0 0 Result Diagram: 09/13/16 0746 09/13/16 0646 Imaging Last Impressions Head CT 09/12/16 0000 Signed Impressions: Service Date/Time: Monday, September 12, 2016 15:57 - CONCLUSION: Stable and unremarkable CT brain compared to 2009. No new or significant changes. Alireza Lance MD Bone Scan Nuclear Medicine 09/11/16 0000 Signed Impressions: Service Date/Time: Sunday, September 11, 2016 08:13 - CONCLUSION: No definite scintigraphic evidence of osseous metastatic disease. Evidence of collateral vessels seen on blood pool images. Uptake in the knees, and lower legs in a symmetric fashion bilaterally does not have the typical appearance of neoplasm however plain radiographic correlation recommended. John Malave MD Abdomen/Pelvis CT 09/10/16 0000 Signed Impressions: Service Date/Time: Sunday, September 11, 2016 08:50 - CONCLUSION: 1. Extensive collateral vessels anterior abdominal wall and chest. 2. Fat containing ventral hernia at the umbilicus. 3. Atrophic kidneys with left renal cyst. 4. Diffuse sclerosis of the visualized bones are identified. Differential diagnosis would include sclerotic bones related to underlying renal osteodystrophy and interpreted clinical setting versus metastatic disease. 5. Bilateral basilar atelectasis is noted. John Malave MD Chest CT 09/08/16 0000 Signed Impressions: Service Date/Time: Thursday, September 08, 2016 19:58 - CONCLUSION: 1. Minimal patchy densities in the upper lobes nonspecific but could be infectious or inflammatory. 2. No cavitary lesion to suggest septic emboli. 3. Left sternoclavicular joint appears unremarkable. 4. Increased sclerosis throughout the axial skeleton concerning for diffuse systemic process/metastatic disease. Goyo Hahn MD Chest X-Ray 09/06/16 0809 Signed Impressions: Service Date/Time: Tuesday, September 06, 2016 08:52 - CONCLUSION: No acute disease. No significant change has occurred. Blas Butler MD Clavicle X-Ray 09/06/16 0000 Signed Impressions: Service Date/Time: Tuesday, September 06, 2016 08:55 - CONCLUSION: Vascular stents stable and unchanged in place. Otherwise negative Blas Butler MD Objective Remarks obese, not in distress awake and alert , oriented x 3 anicteric lungs- decreased breath sounds, no rales regular rhythm abdomen- soft, good bowel sounds, extremities- no edema right groin- permcath site- no signs of infection Procedures hemodialysis A/P Assessment and Plan 56y/o female with bony lesions, initially admitted for chest pain. ho End-stage renal disease on hemodialysis. Hypertension. Chronic obstructive pulmonary disease. Congestive heart failure. Gastroesophageal reflux disease. Morbid obesity ESRD on HD: M/W/F. Nephrology Dr. Villagran ff Chest Pain: Atypical. Troponin negative. EKG reviewed, no acute changes or significant change from previous. Was seen by Dr. Sloane han on last recent admission, patient has normal Nuclear Stress Test. Was cleared by cardiology for DC. CXR unremarkable. Muscle spasm causing neck pain/ decreased shoulder range of motion. Xray reviewed, no fractures. Pain med per pain scale PO and IV. Flexeril po 10 mg q8 hrs. Consult PT/OT COPD: Chronic, stable. Does not appear to be in acute exacerbation. Abnormal CT- work up in progress for possible malignancy- ff up Hypertension/hypotension: Reportedly history of hypertension, however BP is fairly controlled. Will continue to monitor. Rash the upper extremities: Possibly psoriasis. Follow-up with dermatology as outpatient. Continue steroid cream. Wound care. Staph Epi bacteremia IV Vancomycin for 4-6 weeks with HD Morbid Obesity: BMI 51.8. Counseled on weight reduction. 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 Sclerotic bone lesions oncology ff. no evidence of mets. Other chronic medical conditions include GERD, Hypothyroidism, MBD, depression, neuropathy: Stable at this time and will continue home medications as indicated. PT consulted/ OT consult Case management consulted. DVT Prophylaxis: Heparin sq/ SCD /TEDs DC today with home health care- after HD Jovanny Sawyer MD Sep 15, 2016 09:27
[2016-09-15] MEDS ORDERED: CALC500C16 CHEW (09:37)
[2016-09-15] MEDS: MIDODRINE 5 MG TAB PO SCH ×3 (11:46→18:32)
[2016-09-15] MEDS ORDERED: MIDO5TAB PO (11:57)
--- NOTE | 2016-09-15 13:18 | HHI.NPPN ---
Subjective History of Present Illness 56 year old female with left shoulder pain ESRD M,W,F Objective Data Data 09/14/16 09/15/16 19:00 07:00 Intake Total 720 ml 720 ml Balance 720 ml 720 ml Intake Oral 720 ml 720 ml # Voids 1 0 # Bowel Movements 1 0 Vital Signs Date Time Temp Pulse Resp B/P Pulse Ox O2 Delivery O2 Flow Rate FiO2 09/15/16 12:36 106/58 09/15/16 12:00 98 09/15/16 11:50 97.3 99 18 89/53 95 09/15/16 10:15 100 Nasal Cannula 2.00 09/15/16 09:00 95 Nasal Cannula 3.00 09/15/16 07:55 97.8 95 18 128/73 98 09/15/16 04:00 97.8 100 18 109/59 93 09/15/16 00:50 3.00 09/15/16 00:00 98.0 101 17 114/69 99 09/14/16 22:30 97 09/14/16 21:37 92 Nasal Cannula 3.00 09/14/16 20:35 98 Nasal Cannula 3.00 09/14/16 20:00 97.9 98 17 125/73 95 -: 09/13/16 0746 09/13/16 0646 Physical Exam General Appearance: Well Developed, Well Nourished Neck Neck Exam: Neck Supple Pulmonary Resp Exam: Clear Bilaterally, Breath Sounds Equal Cardiology CV Exam: Regular, Normal Sinus Rhythm Gastrointestinal/Abdomen GI Exam: Soft, Bowel Sounds Present Extremeties Extremities Exam: Trace Edema (LEFT SHOULDER PAIN) Assessment/Plan Problem List: (1) ESRD (end stage renal disease) Plan: HD this afternoon may be discharged post dialysis Vanco given arrange for out pt Doing better Lt shoulder pain Staph Epi on Vanco can be arranged as out pt with HD now getting work up for cancer screening as Ct chest showed sclerotic bone changes likely due to ESRD and Hx of Tertiary Hyperparathyroid disease s/p Parathyroidectomy cancer screening neg (2) Hypocalcemia Plan: on calcium carbonate/Tums (3) Chest pain Plan: Patient has been observed (4) Hypertension Plan: stable blood pressure Plan patient seen at dialysis 1604 PM 3 L UF on 2K/HCO3 Problem Qualifiers (1) Chest pain: Qualified Code: R07.9 - Chest pain, unspecified type Frank Villagran MD Sep 15, 2016 13:18
[2016-09-15] MEDS: VANCOMYCIN INJ 1,000 MG in SODIUM CHLOR 0.9% 250 ML INJ 250 ML IV SCH (17:01)
[2016-09-15] MEDS: GENTAMICIN SULFATE (DIALYSIS USE ONLY) 20 MG/2 ML VIAL IV PRN (17:01)
[2016-09-15] MEDS: ACETAMINOPHEN/HYDROcodone 325 MG/10 MG TAB PO PRN (18:34)
== END 2016-09-15 20:19 | disposition home health service (06) | DRG 640 ==
LOC: NEPC 08:01 → NEDA 11:59 → N06B 16:28
PROVIDERS: ADMIT Internal Medicine; ATTEND Internal Medicine
PROC: 5A1D60Z (ICD-10-PCS; principal; 2016-09-06)
DX: E83.51 Hypocalcemia (principal); G93.41 Metabolic encephalopathy; I13.2 Hypertensive heart and chronic kidney disease with heart failure and with stage 5 chronic kidney disease, or end stage renal disease; R78.81 Bacteremia; N18.6 End stage renal disease; N25.0 Renal osteodystrophy; Z68.42 Body mass index [BMI] 45.0-49.9, adult; E11.22 Type 2 diabetes mellitus with diabetic chronic kidney disease; J44.9 Chronic obstructive pulmonary disease, unspecified; B35.6 Tinea cruris; J45.909 Unspecified asthma, uncomplicated; E89.2 Postprocedural hypoparathyroidism; M54.2 Cervicalgia; M62.838 Other muscle spasm; E66.01 Morbid (severe) obesity due to excess calories; M19.90 Unspecified osteoarthritis, unspecified site; F41.9 Anxiety disorder, unspecified; I50.9 Heart failure, unspecified; K21.9 Gastro-esophageal reflux disease without esophagitis; E78.00 Pure hypercholesterolemia, unspecified; G47.30 Sleep apnea, unspecified; B19.20 Unspecified viral hepatitis C without hepatic coma; B95.7 Other staphylococcus as the cause of diseases classified elsewhere; M25.512 Pain in left shoulder; G62.9 Polyneuropathy, unspecified; E03.9 Hypothyroidism, unspecified; L40.9 Psoriasis, unspecified; F32.9 Major depressive disorder, single episode, unspecified; Z80.42 Family history of malignant neoplasm of prostate; Z86.14 Personal history of Methicillin resistant Staphylococcus aureus infection; Z87.891 Personal history of nicotine dependence; Z88.1 Allergy status to other antibiotic agents; Z99.2 Dependence on renal dialysis
CPT/HCPCS: 70450; 71010; 71250; 73000; 74176; 76937; 78306; 80048; 80053; 82164; 82378; 82550; 83735; 83970; 84155; 84165; 84484; 85025; 85610; 85730; 86300; 87040; 87186; 87205; 90935; 93005; 96365; 96374; 96375; A9503; J0610; J1580; J1644; J2270; J3370; J7030; J7040; J7050; P9047

== ENCOUNTER 2016-10-06 11:19 | Observation (INO) | payer MEDICARE, OTHER ==
[~2016-10-06] VITALS: Ht 167.6 cm; Wt 132.0 kg
[~2016-10-06 11:19] MED LIST changes: +CALC500C16 CHEW; +MIDO5TAB PO; -OSCA200T PO
[2016-10-06 11:24] VITALS: BP 128/56; PULSE 97; RESP 18; TEMP 96.5; O2SAT 95
[2016-10-06 11:27] VITALS: BP 128/56; PULSE 79; RESP 18; TEMP 96.5; O2SAT 95
[2016-10-06 12:42] LABS: AUTOMATED NEUTROPHIL # 7.1 TH/MM3 (1.8-7.7); BASOPHIL % 0.3 % (0.0-2.0); EOSINOPHIL # 1.3 TH/MM3 (0-0.4); EOSINOPHIL % 12.5 % (0.0-4.0); HEMATOCRIT 37.3 % (35.0-46.0); HEMO FLAGS DIFF FINAL; LYMPH % 7.4 % (9.0-44.0); LYMPHOCYTE # 0.7 TH/MM3 (1.0-4.8); MEAN CELL VOLUME 90.7 FL (80.0-100.0); MEAN CORPUSCULAR HEMOGLOBIN 28.7 PG (27.0-34.0); MEAN CORPUSCULAR HGB CONC 31.7 % (32.0-36.0); MONO % 9.9 % (0.0-8.0); NEUT % 69.9 % (16.0-70.0); PLATELET COUNT 285 TH/MM3 (150-450); RED BLOOD COUNT 4.11 MIL/MM3 (4.00-5.30); RED CELL DISTRIBUTION WIDTH 15.1 % (11.6-17.2); WHITE BLOOD COUNT 10.2 TH/MM3 (4.0-11.0)
[2016-10-06 13:09] LABS: ANION GAP 11 MEQ/L (5-15); BICARBONATE 25.5 MEQ/L (21.0-32.0); BLOOD UREA NITROGEN 67 MG/DL (7-18); CHLORIDE 104 MEQ/L (98-107); GLOMERULAR FILTRATION RATE 6 ML/MIN (>89); POTASSIUM 4.6 MEQ/L (3.5-5.1); SODIUM (NA) 140 MEQ/L (136-145)
[2016-10-06 13:21] LABS: CREATINE KINASE 75 U/L (26-192)
[2016-10-06] MEDS ORDERED: CALCIUM GLUCONATE INJ 2 GM in DEXTROSE 5% IN WATER 100ML INJ 100 ML IV ONE ×2 (13:30)
--- NOTE | 2016-10-06 13:35 | PD ---
HPI Chief Complaint: Chest Pain Time Seen by Provider: 13:29 Travel History International Travel<30 days: No Contact w/Intl Traveler<30days: No Traveled to known affect area: No History of Present Illness HPI 56-year-old female that presents to the ED for evaluation of left-sided chest pain to his to the neck and shoulder. Patient reports that this is been ongoing for the past couple weeks and is becoming progressively worse. Per patient she was today at her dialysis center about to get dialysis when she reported to the nurse that she was having this pain was severe and therefore she cannot do the dialysis so they brought here for evaluation. Patient has been here before for something similar. Patient has had multiple workups for chest pain in the past. She does tell me however to the chest pain seems to becoming more severe. Last and she was here she was found to have severe hypocalcemia require calcium supplementation. She did not get her dialysis today. Per patient at this time she has no pain. She was not given anything for the pain on the way here. She states that the pain was 8 out of 10 and radiated to the neck and shoulder. Per patient and the difference from previous is that is more severe becoming more painful. She does have a history of MRSA an allergy to Levaquin. She denies any abdominal pain. Nausea vomiting. No diarrhea. No bowel movement issues. No urinary issues. She follows with Dr. Pringle for dialysis and has no PCP. PFS Past Medical History Hx Anticoagulant Therapy: Yes (COUMADIN) Anemia: Yes Arthritis: Yes Asthma: Yes Autoimmune Disease: No Blood Disorders: No Anxiety: Yes Depression: Yes Heart Rhythm Problems: No Cancer: No Cardiovascular Problems: Yes (HTN) High Cholesterol: Yes Chemotherapy: No Chest Pain: Yes Congestive Heart Failure: Yes COPD: Yes Cerebrovascular Accident: No Diabetes: Yes Patient Takes Glucophage: No Dialysis: Yes (M/W/F) Diminished Hearing: No Endocrine: Yes Gastrointestinal Disorders: Yes (ULCERS) GERD: Yes Glaucoma: No Genitourinary: Yes (ESRD, DIALYSIS) Headaches: Yes Hepatitis: No Hiatal Hernia: No Hypertension: Yes (hx of not now) Immune Disorder: No Implanted Vascular Access Dvce: Yes (R FEMORAL AV FISTULA) Kidney Stones: No Musculoskeletal: Yes (ARTHRITIS) Neurologic: No Psychiatric: Yes Reproductive: No Respiratory: Yes (COPD, ASTHMA) Immunizations Current: Yes Migraines: No Myocardial Infarction: No Pneumonia: Yes (HX) Radiation Therapy: No Renal Failure: Yes (CRF) Seizures: No Sickle Cell Disease: No Sleep Apnea: Yes Thyroid Disease: No Ulcer: Yes Tetanus Vaccination: > 5 Years Influenza Vaccination: Yes PNEUMOCCOCAL Vaccine (Year): 3 Menopausal: Yes : 3 Para: 3 Miscarriage: 0 : 0 Past Surgical History Abdominal Surgery: Yes AICD: No Appendectomy: Yes Arteriovenous Shunt: Yes (right femoral av fistula) Body Medical Devices: OLD NON FUNCTIONING GRAFT NANCY. CURRENT PERMACATH R GROIN Cardiac Surgery: No Cholecystectomy: Yes Ear Surgery: No Endocrine Surgery: Yes (THYROIDECTOMY) Eye Surgery: Yes (LASIK right cataract removed / left removed) Genitourinary Surgery: Yes (Peritoneal Abdominal Catheter removed april 2015) Gynecologic Surgery: Yes (Partial Hysterectomy and Appendectomy ) Hysterectomy: Yes (PARTIAL ) Insulin Pump: No Joint Replacement: No Neurologic Surgery: No Oral Surgery: Yes (ALL TEETH REMOVED) Pacemaker: No Thoracic Surgery: No Other Surgery: Yes (RIGHT HAND, APPENDECTOMY, GALL BLADDER REMOVAL) Social History Alcohol Use: Yes (OCCASIONALLY ) Tobacco Use: No Substance Use: No Allergies-Medications (Allergen,Severity, Reaction): Coded Allergies: Levaquin (Unverified Allergy, Severe, 09/06/16) ANAPHYLAXIS *MDRO Multi-Drug Resistant Organism (Verified Adverse Reaction, Unknown, Cleared, 09/07/16) MRSA (wound) - 04/2011, (blood) - 10/2011 MRSA PCR Screen negative 02/17/15 and 02/19/15. Cleared per Infection Control Reported Meds & Prescriptions Reported Meds & Active Scripts Active Midodrine 5 Mg Tab 10 Mg PO TID@ Calcium Carbonate (Antacid) 500 Mg Chew 500 Mg CHEW 5 TIMES A DAY 30 Days Nystop Topical (Nystatin Topical) 100,000 Unit/Gm Powd 1 Applic TOPICAL Q8HR Hydroskin (Hydrocortisone (Topical)) 1 % Lot 1 Applic TOPICAL Q8HR Aspirin EC (Aspirin) 81 Mg Tabdr 81 Mg PO DAILY Reported Sucralfate 1 Gm Tab 1 Gm PO BIDAC on empty stomach Rocaltrol (Calcitriol) 0.25 Mcg Cap 0.25 Mcg PO DAILY Pantoprazole (Pantoprazole Sodium) 40 Mg Tab 40 Mg PO DAILY Levothyroxine (Levothyroxine Sodium) 50 Mcg Tab 50 Mcg PO DAILY Gabapentin 100 Mg Cap 200 Mg PO TID Bupropion HCl 75 Mg Tab 75 Mg PO DAILY Atorvastatin (Atorvastatin Calcium) 40 Mg Tab 40 Mg PO HS Review of Systems Except as stated in HPI: all other systems reviewed are Neg Physical Exam Narrative GENERAL: morbidly obese SKIN: Warm and dry. HEAD: Atraumatic. Normocephalic. EYES: Pupils equal and round. No scleral icterus. No injection or drainage. ENT: No nasal bleeding or discharge. Mucous membranes pink and moist. Tongue is midline. No uvula deviation. NECK: Trachea midline. No JVD. CARDIOVASCULAR: Regular rate and rhythm. No wrist murmurs, S3, S4. Chest pain is not reproducible with touch. RESPIRATORY: No accessory muscle use. Clear to auscultation. Breath sounds equal bilaterally. GASTROINTESTINAL: Abdomen soft, non-tender, nondistended. Hepatic and splenic margins not palpable. MUSCULOSKELETAL: Extremities without clubbing, cyanosis, or edema. No obvious deformities. Full range of motion of the upper and lower extremities bilaterally. 2+ pulses bilaterally. NEUROLOGICAL: Awake and alert. No obvious cranial nerve deficits. Motor grossly within normal limits. Five out of 5 muscle strength in the arms and legs. Normal speech. PSYCHIATRIC: Appropriate mood and affect; insight and judgment normal. Data Data Last Documented VS Vital Signs Date Time Temp Pulse Resp B/P Pulse Ox O2 Delivery O2 Flow Rate FiO2 10/06/16 11:27 73 95 10/06/16 11:27 96.5 18 128/56 Room Air Orders Electrocardiogram (10/06/16 12:31) Complete Blood Count With Diff (10/06/16 12:31) Basic Metabolic Panel (Bmp) (10/06/16 12:31) Ckmb (Isoenzyme) Profile (10/06/16 12:31) Troponin I (10/06/16 12:31) Chest, Single Ap (10/06/16 12:31) Iv Access Insert/Monitor (10/06/16 12:31) Ecg Monitoring (10/06/16 12:31) Oxygen Administration (10/06/16 12:31) Oximetry (10/06/16 12:31) B-Type Natriuretic Peptide (10/06/16 12:38) Protein Corrected Calcium(Pcc) (10/06/16 12:15) Calcium Gluconate Inj (Calcium Gluconate (10/06/16 13:30) Magnesium (Mg) (10/06/16 13:37) Phosphorus (Po4) (10/06/16 13:37) Place In Observation (10/06/16 ) Vital Signs (Adult) Q4H (10/06/16 14:21) Activity Oob With Assistance (10/06/16 14:21) Sales Contract Administrator / Telemetry .CONTINUOUS (10/06/16 14:21) Diet Heart Healthy (10/06/16 Dinner) Sodium Chloride 0.9% Flush (Ns Flush) (10/06/16 14:30) Sodium Chloride 0.9% Flush (Ns Flush) (10/06/16 21:00) Acetaminophen (Tylenol) (10/06/16 14:30) Prochlorperazine Supp (Compazine Supp) (10/06/16 14:30) Bisacodyl Supp (Dulcolax Supp) (10/06/16 14:30) Magnesium Hydroxide Liq (Milk Of Magnesi (10/06/16 14:30) Sennosides (Senokot) (10/06/16 14:30) Temazepam (Restoril) (10/06/16 14:30) Basic Metabolic Panel (Bmp) (10/07/16 06:00) Complete Blood Count With Diff (10/07/16 06:00) Resp Oxygen Helder C Titrat 1-4 L (10/06/16 ) Pt Request For Service (10/06/16 14:21) Case Management Consult (10/06/16 14:21) Scd Bilateral/Knee High BRI.BID (10/06/16 14:21) Bernard Bilateral/Knee High BRI.QSHIFT (10/06/16 14:21) Admit Order (Ed Use Only) (10/06/16 14:22) Labs Laboratory Tests Test 10/06/16 10/06/16 12:15 13:50 White Blood Count 10.2 TH/MM3 Red Blood Count 4.11 MIL/MM3 Hemoglobin 11.8 GM/DL Hematocrit 37.3 % Mean Corpuscular Volume 90.7 FL Mean Corpuscular Hemoglobin 28.7 PG Mean Corpuscular Hemoglobin 31.7 % Concent Red Cell Distribution Width 15.1 % Platelet Count 285 TH/MM3 Mean Platelet Volume 8.5 FL Neutrophils (%) (Auto) 69.9 % Lymphocytes (%) (Auto) 7.4 % Monocytes (%) (Auto) 9.9 % Eosinophils (%) (Auto) 12.5 % Basophils (%) (Auto) 0.3 % Neutrophils # (Auto) 7.1 TH/MM3 Lymphocytes # (Auto) 0.7 TH/MM3 Monocytes # (Auto) 1.0 TH/MM3 Eosinophils # (Auto) 1.3 TH/MM3 Basophils # (Auto) 0.0 TH/MM3 CBC Comment DIFF FINAL Differential Comment Sodium Level 140 MEQ/L Potassium Level 4.6 MEQ/L Chloride Level 104 MEQ/L Carbon Dioxide Level 25.5 MEQ/L Anion Gap 11 MEQ/L Blood Urea Nitrogen 67 MG/DL Creatinine 8.13 MG/DL Estimat Glomerular Filtration 6 ML/MIN Rate Random Glucose 117 MG/DL Calcium Level 6.3 MG/DL Protein Corrected Calcium MG/DL Total Creatine Kinase 75 U/L Troponin I LESS THAN 0.02 NG/ML B-Type Natriuretic Peptide 17 PG/ML Total Protein 8.7 GM/DL Phosphorus Level 5.8 MG/DL Magnesium Level 2.3 MG/DL [facility] Medical Decision Making Medical Screen Exam Complete: Yes Emergency Medical Condition: Yes Medical Record Reviewed: Yes Interpretation(s) CBC & BMP Diagram 10/06/16 12:15 EKG shows sinus rhythm with no sign of acute ischemia or arrhythmia. She does appear to have slight QT prolongation but minimal. Read by me and attending. Troponin negative, CK be negative. Differential Diagnosis Chest pain versus electrolyte abnormality versus ESRD versus chronic chest pain versus muscle scale pain versus hypocalcemia Narrative Course 56-year-old female that presents to the ED for evaluation of left-sided chest pain. Patient was properly examined and was found to have signs and symptoms consistent appears to be chest pain. I review her records and she's had this before. She was here just less than a month ago and was found to be severely hypocalcemic. Patient had to be admitted for calcium replacement as well as dialysis. Labs and imaging were ordered. Initial cardiac workup was essentially negative except for his severe hypocalcemia and ESRD. My attending was made aware of all findings and evaluated the patient with me and recommends admission for hypocalcemia with chest pain. Case was discussed with Dr. Villagran as well who recommended dialysis and calcium. Case discussed with Dr Quipse who agrees to obs admission. Diagnosis Primary Impression: Chest pain Qualified Code: R07.9 - Chest pain, unspecified type Additional Impressions: ESRD (end stage renal disease) Hypocalcemia Admitting Information Admitting Physician Requests: Observation Aroldo Easley Oct 06, 2016 13:35
--- NOTE | 2016-10-06 13:49 | RADRPT ---
EXAM DATE/TIME: 10/06/2016 12:52 [facility] COMPARISON: CHEST SINGLE AP, September 06, 2016, 8:52. INDICATIONS : Chest pains with shortness of breath and dizzyness. MEDICAL HISTORY : Renal failure, chronic. SURGICAL HISTORY : None. ENCOUNTER: Initial ACUITY: 1 day PAIN SCORE: 0/10 LOCATION: Bilateral chest FINDINGS: 2 portable frontal views of the chest show a Hero catheter overlying the left shoulder. A vascular st ent overlies the left upper arm. The heart is normal in size. Lungs are clear. No effusions. No pneum othoraces. CONCLUSION: 1. No acute disease. 2. Hero catheter overlying the left shoulder. Tahir Minor Jr., MD on October 06, 2016 at 13:42 Board Certified Radiologist. This report was verified electronically.
--- NOTE | 2016-10-06 14:13 | PD ---
Physical Exam Date Seen by Provider: Oct 06, 2016 Time Seen by Provider: 12:45 Narrative I, Dr. Richmond, have reviewed the advance practice practitioner's documentation and am in agreement, met with the patient face to face, made the diagnosis, and the medical decision making was done by me. *My assessment and Findings: Patient seen and evaluated with PA, please see previous note for further details. Patient has been having intermittent chest pain episodes for several days, was going to get her dialysis today and was told to come in for further evaluation a chest pains. GENERAL: Well-nourished, well-developed middle age -[place] female patient in no acute distress. SKIN: Warm and dry. HEAD: Normocephalic. EYES: No scleral icterus. No injection or drainage. NECK: Supple, trachea midline. CARDIOVASCULAR: Regular rate and rhythm without murmurs, gallops, or rubs. Pulses are present and equal bilaterally. RESPIRATORY: Breath sounds equal bilaterally. No accessory muscle use. GASTROINTESTINAL: Abdomen soft, non-tender, nondistended. MUSCULOSKELETAL: No cyanosis, or edema. BACK: Nontender without obvious deformity. No CVA tenderness. EKG shows NSR, no ST elevation or depression, and no arrhythmias. No significant T-wave inversions. Laboratory Tests Test 10/06/16 12:15 Mean Corpuscular Hemoglobin 31.7 % Concent (32.0-36.0) Lymphocytes (%) (Auto) 7.4 % (9.0-44.0) Monocytes (%) (Auto) 9.9 % (0.0-8.0) Eosinophils (%) (Auto) 12.5 % (0.0-4.0) Lymphocytes # (Auto) 0.7 TH/MM3 (1.0-4.8) Monocytes # (Auto) 1.0 TH/MM3 (0-0.9) Eosinophils # (Auto) 1.3 TH/MM3 (0-0.4) Blood Urea Nitrogen 67 MG/DL (7-18) Creatinine 8.13 MG/DL (0.50-1.00) Estimat Glomerular Filtration 6 ML/MIN (>89) Rate Random Glucose 117 MG/DL (74-106) Calcium Level 6.3 MG/DL (8.5-10.1) Troponin I LESS THAN 0.02 NG/ML (0.02-0.05) Total Protein 8.7 GM/DL (6.4-8.2) Last 24 hours Impressions Chest X-Ray 10/06/16 1231 Signed Impressions: Service Date/Time: Thursday, October 06, 2016 12:52 - CONCLUSION: 1. No acute disease. 2. Hero catheter overlying the left shoulder. Tahir Minor Jr., MD Chest x-ray did not show any signs of acute pulmonary processes. Lab work shows BUN and creatinine which is elevated consistent with chronic renal failure and dialysis, her calcium is fairly low and calcium was given IV in the ER. Her cardiac enzymes are negative. Case was discussed with Dr. Leyva who is patient's renal doctor and he states he will do dialysis for her today. In addition, patient is discussed with hospitalist service for admission for further evaluation of chest pain. Data Data Last Documented VS Vital Signs Date Time Temp Pulse Resp B/P Pulse Ox O2 Delivery O2 Flow Rate FiO2 10/06/16 11:27 73 95 10/06/16 11:27 96.5 18 128/56 Room Air Orders Electrocardiogram (10/06/16 12:31) Complete Blood Count With Diff (10/06/16 12:31) Basic Metabolic Panel (Bmp) (10/06/16 12:31) Ckmb (Isoenzyme) Profile (10/06/16 12:31) Troponin I (10/06/16 12:31) Chest, Single Ap (10/06/16 12:31) Iv Access Insert/Monitor (10/06/16 12:31) Ecg Monitoring (10/06/16 12:31) Oxygen Administration (10/06/16 12:31) Oximetry (10/06/16 12:31) B-Type Natriuretic Peptide (10/06/16 12:38) Protein Corrected Calcium(Pcc) (10/06/16 12:15) Calcium Gluconate Inj (Calcium Gluconate (10/06/16 13:30) Magnesium (Mg) (10/06/16 13:37) Phosphorus (Po4) (10/06/16 13:37) Labs Laboratory Tests Test 10/06/16 12:15 White Blood Count 10.2 TH/MM3 Red Blood Count 4.11 MIL/MM3 Hemoglobin 11.8 GM/DL Hematocrit 37.3 % Mean Corpuscular Volume 90.7 FL Mean Corpuscular Hemoglobin 28.7 PG Mean Corpuscular Hemoglobin 31.7 % Concent Red Cell Distribution Width 15.1 % Platelet Count 285 TH/MM3 Mean Platelet Volume 8.5 FL Neutrophils (%) (Auto) 69.9 % Lymphocytes (%) (Auto) 7.4 % Monocytes (%) (Auto) 9.9 % Eosinophils (%) (Auto) 12.5 % Basophils (%) (Auto) 0.3 % Neutrophils # (Auto) 7.1 TH/MM3 Lymphocytes # (Auto) 0.7 TH/MM3 Monocytes # (Auto) 1.0 TH/MM3 Eosinophils # (Auto) 1.3 TH/MM3 Basophils # (Auto) 0.0 TH/MM3 CBC Comment DIFF FINAL Differential Comment Sodium Level 140 MEQ/L Potassium Level 4.6 MEQ/L Chloride Level 104 MEQ/L Carbon Dioxide Level 25.5 MEQ/L Anion Gap 11 MEQ/L Blood Urea Nitrogen 67 MG/DL Creatinine 8.13 MG/DL Estimat Glomerular Filtration 6 ML/MIN Rate Random Glucose 117 MG/DL Calcium Level 6.3 MG/DL Protein Corrected Calcium MG/DL Total Creatine Kinase 75 U/L Troponin I LESS THAN 0.02 NG/ML B-Type Natriuretic Peptide 17 PG/ML Total Protein 8.7 GM/DL [facility] Medical Record Reviewed: Yes Supervised Visit with PARVIZ: Yes Diagnosis Primary Impression: Chest pain Qualified Code: R07.9 - Chest pain, unspecified type Additional Impressions: ESRD (end stage renal disease) Hypocalcemia Admitting Information Admitting Physician Requests: Admit Abril Richmond MD Oct 06, 2016 14:13
[2016-10-06 14:19] LABS: MAGNESIUM 2.3 MG/DL (1.5-2.5)
[2016-10-06] MEDS ORDERED: PROCHLORPERAZINE 25 MG SUPP PR PRN (14:30)
[2016-10-06] MEDS ORDERED: BISACODYL 10 MG SUPP PR PRN (14:30)
[2016-10-06] MEDS ORDERED: ACETAMINOPHEN 325 MG TAB PO PRN ×2 (14:30→15:15)
[2016-10-06] MEDS ORDERED: SODIUM CHLORIDE 0.9% FLUSH 5 ML FLUSH FLUSH PRN (14:30)
[2016-10-06] MEDS ORDERED: TEMAZEPAM 15 MG CAP PO PRN (14:30)
[2016-10-06] MEDS ORDERED: SENNOSIDES 8.6 MG TAB PO PRN (14:30)
[2016-10-06] MEDS ORDERED: MAGNESIUM HYDROXIDE SUSP 30 ML CUP PO PRN (14:30)
--- NOTE | 2016-10-06 14:44 | HHI.HP ---
[facility]ician No Primary Care Physician Admission Diagnosis chest pain, hypocalcemia, ESRD Diagnoses: Chief Complaint: chest pain Travel History International Travel<30 Days: No Contact w/Intl Traveler <30 Da: No Traveled to Known Affected Are: No History of Present Illness 56-year-old female known to me from previous admissions, with a PMH of hypocalcemia, HTN, ESRD on HD M/W/F, COPD, CHF (Echo 05/11/16 w/ EF 55-60%) and GERD who came to the ER w/ complaints of chest pain x2 days. Note the patient was recently admitted with similar complaints. and was cleared by cardiology for DC. Denies fever, chills or SOB. Troponin negative, EKG with no acute changes. CXR negative for acute findings. Patient currently asymptomatic. Patient main complaint is left shoulder pain and inability to move hr shoulder due to pain, Xray reviewed without any sign of fracture. She does have decreased ROM of the left shoulder and the head 2/2 PAIN. Patient however has severe muscle spasm. No n/v/d/c. No diaphoresis, palpitations. Review of Systems Other 12 system ROS reviewed and negative except as stated in HPI Past Family Social History Past Medical History HTN, ESRD on HD M/W/F, COPD, CHF (Echo 05/11/16 w/ EF 55-60%) and GERD Past Surgical History RUE AV Fistula, Right Groin AV Fistula, PD Catheter Placement and Removal, Partial Hysterectomy, Appendectomy, Cholecystectomy, Thyroidectomy, Right Cataract Surgery, Dental Extraction Reported Medications Reported Meds & Active Scripts Active Midodrine 5 Mg Tab 10 Mg PO TID@07,12,17 Calcium Carbonate (Antacid) 500 Mg Chew 500 Mg CHEW 5 TIMES A DAY 30 Days Nystop Topical (Nystatin Topical) 100,000 Unit/Gm Powd 1 Applic TOPICAL Q8HR Hydroskin (Hydrocortisone (Topical)) 1 % Lot 1 Applic TOPICAL Q8HR Aspirin EC (Aspirin) 81 Mg Tabdr 81 Mg PO DAILY Reported Sucralfate 1 Gm Tab 1 Gm PO BIDAC on empty stomach Rocaltrol (Calcitriol) 0.25 Mcg Cap 0.25 Mcg PO DAILY Pantoprazole (Pantoprazole Sodium) 40 Mg Tab 40 Mg PO DAILY Levothyroxine (Levothyroxine Sodium) 50 Mcg Tab 50 Mcg PO DAILY Gabapentin 100 Mg Cap 200 Mg PO TID Bupropion HCl 75 Mg Tab 75 Mg PO DAILY Atorvastatin (Atorvastatin Calcium) 40 Mg Tab 40 Mg PO HS Allergies: Coded Allergies: Levaquin (Unverified Allergy, Severe, 09/06/16) ANAPHYLAXIS *MDRO Multi-Drug Resistant Organism (Verified Adverse Reaction, Unknown, Cleared, 09/07/16) MRSA (wound) - 04/2011, (blood) - 10/2011 MRSA PCR Screen negative 02/17/15 and 02/19/15. Cleared per Infection Control Family History Mother with DM, HTN Sister HTN, DM Father prostate CA Brother EtOH abuse 2/2 complications Social History Denies alcohol, tobacco or drugs. Physical Exam Vital Signs Vital Signs Date Time Temp Pulse Resp B/P Pulse Ox O2 Delivery O2 Flow Rate FiO2 10/06/16 11:27 73 95 10/06/16 11:27 96.5 79 18 128/56 95 Room Air 10/06/16 11:24 96.5 97 18 128/56 95 Physical Exam GENERAL: This is a well-nourished, well-developed patient, in no apparent distress. SKIN: No rashes, ecchymoses or lesions. Cool and dry. HEAD: Atraumatic. Normocephalic. No temporal or scalp tenderness. EYES: Pupils equal round and reactive. Extraocular motions intact. No scleral icterus. No injection or drainage. ENT: Nose without bleeding, purulent drainage or septal hematoma. Throat without erythema, tonsillar hypertrophy or exudate. Uvula midline. Airway patent. NECK: Trachea midline. No JVD or lymphadenopathy. Supple, nontender, no meningeal signs. CARDIOVASCULAR: Regular rate and rhythm without murmurs, gallops, or rubs. RESPIRATORY: Clear to auscultation. Breath sounds equal bilaterally. No wheezes , rales, or rhonchi. GASTROINTESTINAL: Abdomen soft, non-tender, nondistended. No hepato-splenomegaly , or palpable masses. No guarding. MUSCULOSKELETAL: Extremities without clubbing, cyanosis, or edema. No joint tenderness, effusion, or edema noted. No calf tenderness. Negative Homans sign bilaterally. NEUROLOGICAL: Awake and alert. Cranial nerves II through XII intact. Motor and sensory grossly within normal limits. Five out of 5 muscle strength in all muscle groups. Normal speech. Laboratory Laboratory Tests Test 10/06/16 10/06/16 12:15 13:50 White Blood Count 10.2 Red Blood Count 4.11 Hemoglobin 11.8 Hematocrit 37.3 Mean Corpuscular Volume 90.7 Mean Corpuscular Hemoglobin 28.7 Mean Corpuscular Hemoglobin 31.7 Concent Red Cell Distribution Width 15.1 Platelet Count 285 Mean Platelet Volume 8.5 Neutrophils (%) (Auto) 69.9 Lymphocytes (%) (Auto) 7.4 Monocytes (%) (Auto) 9.9 Eosinophils (%) (Auto) 12.5 Basophils (%) (Auto) 0.3 Neutrophils # (Auto) 7.1 Lymphocytes # (Auto) 0.7 Monocytes # (Auto) 1.0 Eosinophils # (Auto) 1.3 Basophils # (Auto) 0.0 CBC Comment DIFF FINAL Differential Comment Sodium Level 140 Potassium Level 4.6 Chloride Level 104 Carbon Dioxide Level 25.5 Anion Gap 11 Blood Urea Nitrogen 67 Creatinine 8.13 Estimat Glomerular Filtration 6 Rate Random Glucose 117 Calcium Level 6.3 Protein Corrected Calcium Total Creatine Kinase 75 Troponin I LESS THAN 0.02 B-Type Natriuretic Peptide 17 Total Protein 8.7 Phosphorus Level 5.8 Magnesium Level 2.3 Result Diagram: 10/06/16 1215 10/06/16 1215 Imaging Last Impressions Chest X-Ray 10/06/16 1231 Signed Impressions: Service Date/Time: Thursday, October 06, 2016 12:52 - CONCLUSION: 1. No acute disease. 2. Hero catheter overlying the left shoulder. Tahir Minor Jr., MD Assessment and Plan Assessment and Plan 56-year-old female with a PMH of HTN, ESRD on HD M/W/F, COPD, CHF (Echo 05/11/16 w / EF 55-60%) and GERD who came to the ER w/ complaints of chest pain x2 days Hypocalcemia. S/p parathyroidectomy. Calcium replaced by IV in the ED . Continue to monitor. Also has HD today and Ca was replaced during HD. Continue Ca gluconate PO. ESRD on HD: M/W/F. Nephrology consulted. Consult Dr Villagran her nephrology doctpr who recommends admission in the hospital Chest Pain: Atypical. Troponin negative. EKG reviewed, no acute changes or significant change from previous. Was seen by cards on last recent admission, patient has normal Nuclear Stress Test. Was cleared by cardiology for DC. CXR unremarkable. Consult PT/OT COPD: Chronic, stable. Does not appear to be in acute exacerbation. Hypertension/hypotension: Reportedly history of hypertension, however BP is fairly controlled. Will continue to monitor. Rash the upper extremities: Possibly psoriasis. Follow-up with dermatology as outpatient. Continue steroid cream Morbid Obesity: BMI 51.8. Counseled on weight reduction. 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 Other chronic medical conditions include GERD, Hypothyroidism, MBD, depression, neuropathy: Stable at this time and will continue home medications as indicated. PT consulted/ OT consult Case management consulted. DVT Prophylaxis: Heparin sq/ SCD /TEDs Code Status full code Discussed Condition With patient, nurse, ED physician /Janneth Mckinley MD Oct 06, 2016 14:44
[2016-10-06] MEDS ORDERED: SODIUM CHLOR 0.9% 1000 ML INJ 1,000 ML IV PRN (15:03)
[2016-10-06] MEDS ORDERED: GENTAMICIN SULFATE (DIALYSIS USE ONLY) 20 MG/2 ML VIAL IV PRN (15:15)
[2016-10-06] MEDS ORDERED: NITROGLYCERIN 0.4 MG SL 25 TABS/BTL SL PRN (15:15)
[2016-10-06] MEDS ORDERED: diphenhydrAMINE HCL 25 MG CAP PO PRN (15:15)
[2016-10-06] MEDS ORDERED: HEPARIN SODIUM - IV 10,000 UNITS/10 ML VIAL PRN (15:15)
[2016-10-06] MEDS ORDERED: cloNIDine HCL 0.1 MG TAB PO PRN (15:15)
[2016-10-06] MEDS ORDERED: SODIUM CHLORIDE 0.9% FLUSH 5 ML FLUSH IVF PRN (15:15)
[2016-10-06] MEDS ORDERED: MANNITOL 12.5 GM/50 ML VIAL IV PRN (15:15)
[2016-10-06] MEDS ORDERED: ONDANSETRON HCL 4 MG/2 ML VIAL IV PRN (15:15)
[2016-10-06] MEDS ORDERED: GELATIN 12 MM/7 MM FOAM TOP PRN (15:15)
[2016-10-06] MEDS ORDERED: HEPARIN SODIUM - IV 10,000 UNITS/10 ML VIAL IVF PRN (15:15)
[2016-10-06] MEDS ORDERED: EPOETIN ALFA 2,000 UNITS/ML VIAL IV PRN (15:30)
[2016-10-06] MEDS: ALBUMIN HUMAN 25% 25 GM/100 ML BAGP IV PRN ×2 (15:44→15:45)
[2016-10-06] MEDS: SODIUM CHLOR 0.9% 1000 ML INJ 1,000 ML IV PRN ×4 (15:45→17:05)
[2016-10-06] MEDS: SUCRALFATE 1 GM TAB PO SCH (16:00)
[2016-10-06] MEDS: MIDODRINE 5 MG TAB PO SCH (17:00)
--- NOTE | 2016-10-06 17:22 | PD.CONS ---
HPI Service Nephrology Consult Requested By Dr. Zaragoza Reason for Consult ESRD Primary Care Physician No Primary Care Physician History of Present Illness Patient is a 56-year-old Afro-[place] female with morbid obesity, diabetes, hypertension who had recurrent chest pain and has been evaluated for this complaint, she has similar admission upon last admission and was discharged recently, she goes on hemodialysis on Sunday, Sunday and Sunday, she has a groin fungal infection and was using nystatin powder. She is feeling better her calcium was low and this was replaced in the ED. She admits to keep forgetting to take her calcium supplements as prescribed. Review of Systems Cardiovascular: COMPLAINS OF: Chest pain Past Family Social History Allergies: Coded Allergies: Levaquin (Unverified Allergy, Severe, 09/06/16) ANAPHYLAXIS *MDRO Multi-Drug Resistant Organism (Verified Adverse Reaction, Unknown, Cleared, 09/07/16) MRSA (wound) - 04/2011, (blood) - 10/2011 MRSA PCR Screen negative 02/17/15 and 02/19/15. Cleared per Infection Control Past Medical History morbid obesity Asthma ESRD Hypocalcemia s/p sub total parathyroidectomy Hypertension Anemia multiple shunt failure Past Surgical History Parathyroidectomy Appendectomy Hysterectomy Cholecystectomy AVF/Grafts with failure Permcath multiple current Rt groin Reported Medications Reported Meds & Active Scripts Active Midodrine 5 Mg Tab 10 Mg PO TID@,, Calcium Carbonate (Antacid) 500 Mg Chew 500 Mg CHEW 5 TIMES A DAY 30 Days Nystop Topical (Nystatin Topical) 100,000 Unit/Gm Powd 1 Applic TOPICAL Q8HR Hydroskin (Hydrocortisone (Topical)) 1 % Lot 1 Applic TOPICAL Q8HR Aspirin EC (Aspirin) 81 Mg Tabdr 81 Mg PO DAILY Reported Sucralfate 1 Gm Tab 1 Gm PO BIDAC on empty stomach Rocaltrol (Calcitriol) 0.25 Mcg Cap 0.25 Mcg PO DAILY Pantoprazole (Pantoprazole Sodium) 40 Mg Tab 40 Mg PO DAILY Levothyroxine (Levothyroxine Sodium) 50 Mcg Tab 50 Mcg PO DAILY Gabapentin 100 Mg Cap 200 Mg PO TID Bupropion HCl 75 Mg Tab 75 Mg PO DAILY Atorvastatin (Atorvastatin Calcium) 40 Mg Tab 40 Mg PO HS Active Ordered Medications Current Medications Medications (Trade) Dose Ordered Sig/Mary Grace Route Start Time Stop Time Status Last Admin (NS Flush) 2 ml UNSCH PRN FLUSH 1/27/17 14:30 (NS Flush) 2 ml BID FLUSH 10/06/16 21:00 (Tylenol) 650 mg Q4H PRN PO 10/06/16 14:30 (Compazine Supp) 25 mg Q12H PRN ND 10/06/16 14:30 (Dulcolax Supp) 10 mg DAILY PRN ND 10/06/16 14:30 (Milk Of Magnjosephnie Liq) 30 ml Q12H PRN PO 10/06/16 14:30 (Senokot) 17.2 mg Q12H PRN PO 10/06/16 14:30 (Restoril) 15 mg HS PRN PO 10/06/16 14:30 (Ecotrin Ec) 81 mg DAILY PO 10/07/16 09:00 (Lipitor) 40 mg HS PO 10/06/16 21:00 (Wellbutrin) 75 mg DAILY PO 10/07/16 09:00 (Rocaltrol) 0.25 mcg DAILY PO 10/07/16 09:00 (Neurontin) 200 mg TID PO 10/06/16 18:00 (Hydrocortisone 1% Lotion) 1 applic Q8HR TOPICAL 10/06/16 22:00 (Synthroid) 50 mcg DAILY@06 PO 10/07/16 06:00 (Proamatine) 10 mg TID@07,12,17 PO 10/06/16 17:00 (Mycostatin Powder) 1 applic Q8HR TOPICAL 10/06/16 22:00 (Protonix) 40 mg DAILY PO 10/07/16 09:00 Sucralfate 1 gm 1 gm BIDAC PO 10/06/16 16:00 (NS 1000 ml Inj) 1,000 ml @ 0 mls/hr Q0M PRN IV 10/06/16 15:03 10/06/16 15:45 Heparin Sodium (Porcine) 8000 units 8,000 units UNSCH PRN IVF 10/06/16 15:15 Sodium Chloride 1,000 ml @ 200 mls/hr Q5H PRN IV 10/06/16 15:03 10/06/16 15:45 (NS 1000 ml Inj) 1,000 ml @ 0 mls/hr Q0M PRN IV 10/06/16 15:03 (Mannitol Inj) 12.5 gm UNSCH PRN IV 10/06/16 15:15 (Albumin 25% Inj) 25 gm UNSCH PRN IV 10/06/16 15:15 10/06/16 15:45 (NS Flush) 5 ml UNSCH PRN IVF 10/06/16 15:15 10/06/16 15:46 (Heparin Inj) UNSCH PRN .XX 10/06/16 15:15 10/06/16 15:46 (Gentamicin (Dialysis) Inj) 20 mg UNSCH PRN IV 10/06/16 15:15 (Zofran Inj) 4 mg UNSCH PRN IV 10/06/16 15:15 (Tylenol) 650 mg UNSCH PRN PO 10/06/16 15:15 (Benadryl) 25 mg UNSCH PRN PO 10/06/16 15:15 (Nitrostat Sl) 0.4 mg UNSCH PRN SL 10/06/16 15:15 (Catapres) 0.1 mg UNSCH PRN PO 10/06/16 15:15 (Epogen Inj) 2,000 units UNSCH PRN IV 10/06/16 15:30 10/06/16 15:46 (Gelfoam 12 Mm/7 Mm Top) 1 foam UNSCH PRN TOP 10/06/16 15:15 Family History diabetes in family Social History denies smoking or ETOH Physical Exam Vital Signs Vital Signs Date Time Temp Pulse Resp B/P Pulse Ox O2 Delivery O2 Flow Rate FiO2 10/06/16 11:27 73 95 10/06/16 11:27 96.5 79 18 128/56 95 Room Air 10/06/16 11:24 96.5 97 18 128/56 95 Physical Exam GENERAL: morbidly obese SKIN: Warm and dry. HEAD: Normocephalic. EYES: No scleral icterus. No injection or drainage. NECK: Supple, trachea midline. No JVD or lymphadenopathy. CARDIOVASCULAR: Regular rate and rhythm without murmurs, gallops, or rubs. RESPIRATORY: Breath sounds equal bilaterally. No accessory muscle use. GASTROINTESTINAL: Abdomen soft, non-tender, nondistended. MUSCULOSKELETAL: No cyanosis, or edema. BACK: Nontender without obvious deformity. No CVA tenderness. Laboratory Laboratory Tests Test 10/06/16 10/06/16 12:15 13:50 White Blood Count 10.2 Red Blood Count 4.11 Hemoglobin 11.8 Hematocrit 37.3 Mean Corpuscular Volume 90.7 Mean Corpuscular Hemoglobin 28.7 Mean Corpuscular Hemoglobin 31.7 Concent Red Cell Distribution Width 15.1 Platelet Count 285 Mean Platelet Volume 8.5 Neutrophils (%) (Auto) 69.9 Lymphocytes (%) (Auto) 7.4 Monocytes (%) (Auto) 9.9 Eosinophils (%) (Auto) 12.5 Basophils (%) (Auto) 0.3 Neutrophils # (Auto) 7.1 Lymphocytes # (Auto) 0.7 Monocytes # (Auto) 1.0 Eosinophils # (Auto) 1.3 Basophils # (Auto) 0.0 CBC Comment DIFF FINAL Differential Comment Sodium Level 140 Potassium Level 4.6 Chloride Level 104 Carbon Dioxide Level 25.5 Anion Gap 11 Blood Urea Nitrogen 67 Creatinine 8.13 Estimat Glomerular Filtration 6 Rate Random Glucose 117 Calcium Level 6.3 Protein Corrected Calcium Total Creatine Kinase 75 Troponin I LESS THAN 0.02 B-Type Natriuretic Peptide 17 Total Protein 8.7 Phosphorus Level 5.8 Magnesium Level 2.3 Result Diagram: 10/06/16 1215 10/06/16 1215 Imaging Last Impressions Chest X-Ray 10/06/16 1231 Signed Impressions: Service Date/Time: Thursday, October 06, 2016 12:52 - CONCLUSION: 1. No acute disease. 2. Hero catheter overlying the left shoulder. Tahir Minor Jr., MD Assessment and Plan Problem List: (1) ESRD (end stage renal disease) Plan: seen during dialysis UF 3 L on higher Calcium bath restart Ca CO3 (2) H/O parathyroidectomy Plan: need to take Ca supplements (3) Chest pain Plan: Atypical (4) Hypocalcemia Plan: replace Problem Qualifiers (1) Chest pain: Qualified Code: R07.9 - Chest pain, unspecified type Frank Villagran MD Oct 06, 2016 17:22
[2016-10-06] MEDS: GABAPENTIN 100 MG CAP PO SCH (18:00)
[2016-10-06] MEDS ORDERED: CALCIUM CARBONATE 500 MG CHEWABLE TAB CHEW SCH (18:00)
[2016-10-06 18:45] VITALS: BP 127/71; PULSE 95; RESP 22; TEMP 97.5; O2SAT 95
[2016-10-06 20:00] VITALS: O2SAT 95
[2016-10-06] MEDS ORDERED: ATORVASTATIN 40 MG TAB PO SCH (21:00)
[2016-10-06] MEDS: NYSTATIN 100,000 U/GM PWD 15 GM BTL TOPICAL SCH (23:05)
[2016-10-06] MEDS: HYDROCORTISONE 1% LOTN 120 ML BTL TOPICAL SCH (23:05)
[2016-10-06] MEDS: SODIUM CHLORIDE 0.9% FLUSH 5 ML FLUSH FLUSH SCH (23:06)
[2016-10-06] MEDS: CALCIUM CARBONATE 500 MG CHEWABLE TAB CHEW SCH (23:06)
[2016-10-06 23:43] VITALS: BP 109/59; PULSE 106; RESP 19; TEMP 98.1; O2SAT 92
[2016-10-07] MEDS: CALCIUM CARBONATE 500 MG CHEWABLE TAB CHEW SCH ×5 (03:30→16:22)
[2016-10-07 04:06] VITALS: BP 114/65; PULSE 94; RESP 20; TEMP 98.1; O2SAT 92
[2016-10-07] MEDS ORDERED: LEVOTHYROXINE SODIUM 50 MCG TAB PO SCH (06:00)
[2016-10-07] MEDS: NYSTATIN 100,000 U/GM PWD 15 GM BTL TOPICAL SCH ×2 (06:21→16:21)
[2016-10-07] MEDS: HYDROCORTISONE 1% LOTN 120 ML BTL TOPICAL SCH ×2 (06:21→16:21)
[2016-10-07] MEDS: SUCRALFATE 1 GM TAB PO SCH ×2 (06:21→16:22)
[2016-10-07] MEDS: MIDODRINE 5 MG TAB PO SCH ×2 (06:32→10:29)
[2016-10-07 06:53] LABS: AUTOMATED NEUTROPHIL # 5.7 TH/MM3 (1.8-7.7); BASOPHIL # 0.1 TH/MM3 (0-0.2); BASOPHIL % 0.8 % (0.0-2.0); EOSINOPHIL # 1.1 TH/MM3 (0-0.4); EOSINOPHIL % 13.1 % (0.0-4.0); HEMATOCRIT 36.4 % (35.0-46.0); HEMO FLAGS DIFF FINAL; LYMPH % 10.1 % (9.0-44.0); LYMPHOCYTE # 0.9 TH/MM3 (1.0-4.8); MEAN CELL VOLUME 89.9 FL (80.0-100.0); MEAN CORPUSCULAR HEMOGLOBIN 28.8 PG (27.0-34.0); MEAN CORPUSCULAR HGB CONC 32.1 % (32.0-36.0); MONO % 10.8 % (0.0-8.0); NEUT % 65.2 % (16.0-70.0); PLATELET COUNT 272 TH/MM3 (150-450); RED BLOOD COUNT 4.05 MIL/MM3 (4.00-5.30); RED CELL DISTRIBUTION WIDTH 14.8 % (11.6-17.2); WHITE BLOOD COUNT 8.7 TH/MM3 (4.0-11.0)
[2016-10-07 07:07] LABS: BICARBONATE 27.3 MEQ/L (21.0-32.0); POTASSIUM 4.3 MEQ/L (3.5-5.1)
[2016-10-07 07:47] LABS: CALCIUM-PROTEIN CORRECTED 6.6 MG/DL (8.5-10.1)
[2016-10-07 08:03] VITALS: BP 118/65; PULSE 96; RESP 18; TEMP 97.7; O2SAT 93
[2016-10-07 08:14] VITALS: O2SAT 94
[2016-10-07] MEDS ORDERED: buPROPion HCL 75 MG TAB PO SCH (09:00)
[2016-10-07] MEDS: SODIUM CHLORIDE 0.9% FLUSH 5 ML FLUSH FLUSH SCH (09:00)
[2016-10-07] MEDS ORDERED: PANTOPRAZOLE SOD 40 MG DELAYED RELEASE TAB PO SCH (09:00)
[2016-10-07] MEDS ORDERED: ASPIRIN EC 81 MG TABEC PO SCH (09:00)
[2016-10-07] MEDS ORDERED: CALCITRIOL 0.25 MCG CAP PO SCH (09:00)
[2016-10-07] MEDS ORDERED: CALCIUM GLUCONATE INJ 1 GM in SODIUM CHLORIDE 0.9% INJ 100 ML IV ONE (09:45)
--- NOTE | 2016-10-07 09:45 | HHI.PR ---
Subjective Remarks Follow up for chest pain with hypocalcemia. The patient reports feeling much better today. She denies any further chest pain. Denies any other medical complaints including no shortness of breath or abdominal pains. She is s/p dialysis yesterday. Discussed again importance of taking her calcium, patient verbalizes understanding. Objective Vitals Vital Signs Date Time Temp Pulse Resp B/P Pulse Ox O2 Delivery O2 Flow Rate FiO2 10/07/16 08:03 97.7 96 18 118/65 93 10/07/16 04:06 98.1 94 20 114/65 92 10/06/16 23:43 98.1 106 19 109/59 92 10/06/16 20:00 95 10/06/16 18:45 97.5 95 22 127/71 95 10/06/16 11:27 73 95 10/06/16 11:27 96.5 79 18 128/56 95 Room Air 10/06/16 11:24 96.5 97 18 128/56 95 I/O 10/06/16 10/06/16 10/06/16 10/07/16 10/07/16 10/07/16 06:59 14:59 22:59 06:59 14:59 22:59 Intake Total 600 ml Output Total 2500 ml Balance -2500 ml 600 ml Intake Oral 600 ml Output Hemodialysis 2500 ml Result Diagram: 10/07/1615 10/07/16 0615 Imaging Last Impressions Chest X-Ray 10/06/16 1231 Signed Impressions: Service Date/Time: Thursday, October 06, 2016 12:52 - CONCLUSION: 1. No acute disease. 2. Hero catheter overlying the left shoulder. Tahir Minor Jr., MD Objective Remarks GENERAL: Well-nourished, well-developed obese female patient in [facility]. SKIN: Warm and dry. No rash. HEAD: Normocephalic. Atraumatic. NECK: Supple. Trachea midline. CARDIOVASCULAR: Regular rate and rhythm. S1, S2 noted. No murmur appreciated. RESPIRATORY: No accessory muscle use. Clear to auscultation. Breath sounds equal bilaterally. GASTROINTESTINAL: Abdomen soft, non-tender, nondistended. Normoactive bowel sounds x4. MUSCULOSKELETAL: No obvious deformities. Extremities without clubbing, cyanosis , or edema. NEUROLOGICAL: Awake and alert. No obvious cranial nerve deficits. Motor grossly within normal limits. Normal speech. PSYCHIATRIC: Appropriate mood and affect; insight and judgment normal. Medications and IVs Current Medications Medications (Trade) Dose Ordered Sig/Mary Grace Route Start Time Stop Time Status Last Admin (NS Flush) 2 ml UNSCH PRN FLUSH 10/06/16 14:30 (NS Flush) 2 ml BID FLUSH 10/06/16 21:00 10/06/16 23:06 (Tylenol) 650 mg Q4H PRN PO 10/06/16 14:30 (Compazine Supp) 25 mg Q12H PRN MT 10/06/16 14:30 (Dulcolax Supp) 10 mg DAILY PRN MT 10/06/16 14:30 (Milk Of Magnesia Liq) 30 ml Q12H PRN PO 10/06/16 14:30 (Senokot) 17.2 mg Q12H PRN PO 10/06/16 14:30 (Restoril) 15 mg HS PRN PO 10/06/16 14:30 (Ecotrin Ec) 81 mg DAILY PO 10/07/16 09:00 10/07/16 10:30 (Lipitor) 40 mg HS PO 10/06/16 21:00 10/06/16 23:06 (Wellbutrin) 75 mg DAILY PO 10/07/16 09:00 10/07/16 10:31 (Rocaltrol) 0.25 mcg DAILY PO 10/07/16 09:00 10/07/16 09:00 (Neurontin) 200 mg TID PO 10/06/16 18:00 10/07/16 10:30 (Hydrocortisone 1% Lotion) 1 applic Q8HR TOPICAL 10/06/16 22:00 10/07/16 06:21 (Synthroid) 50 mcg DAILY@06 PO 10/07/16 06:00 10/07/16 06:21 (Proamatine) 10 mg TID@,,17 PO 10/06/16 17:00 10/07/16 10:29 (Mycostatin Powder) 1 applic Q8HR TOPICAL 10/06/16 22:00 10/07/16 06:21 (Protonix) 40 mg DAILY PO 10/07/16 09:00 10/07/16 10:30 Sucralfate 1 gm 1 gm BIDAC PO 10/06/16 16:00 10/07/16 06:21 (NS 1000 ml Inj) 1,000 ml @ 0 mls/hr Q0M PRN IV 10/06/16 15:03 10/06/16 15:45 Heparin Sodium (Porcine) 8000 units 8,000 units UNSCH PRN IVF 10/06/16 15:15 Sodium Chloride 1,000 ml @ 200 mls/hr Q5H PRN IV 10/06/16 15:03 10/06/16 15:45 (NS 1000 ml Inj) 1,000 ml @ 0 mls/hr Q0M PRN IV 10/06/16 15:03 (Mannitol Inj) 12.5 gm UNSCH PRN IV 10/06/16 15:15 (Albumin 25% Inj) 25 gm UNSCH PRN IV 10/06/16 15:15 10/06/16 15:45 (NS Flush) 5 ml UNSCH PRN IVF 10/06/16 15:15 10/06/16 15:46 (Heparin Inj) UNSCH PRN .XX 10/06/16 15:15 10/06/16 15:46 (Gentamicin (Dialysis) Inj) 20 mg UNSCH PRN IV 10/06/16 15:15 (Zofran Inj) 4 mg UNSCH PRN IV 10/06/16 15:15 (Tylenol) 650 mg UNSCH PRN PO 10/06/16 15:15 10/07/16 00:29 (Benadryl) 25 mg UNSCH PRN PO 10/06/16 15:15 (Nitrostat Sl) 0.4 mg UNSCH PRN SL 10/06/16 15:15 (Catapres) 0.1 mg UNSCH PRN PO 10/06/16 15:15 (Epogen Inj) 2,000 units UNSCH PRN IV 10/06/16 15:30 10/06/16 15:46 (Gelfoam 12 Mm/7 Mm Top) 1 foam UNSCH PRN TOP 10/06/16 15:15 Calcium Carbonate 1000 mg 1,000 mg Q4HR CHEW 10/06/16 20:00 10/07/16 03:30 (Calcium Gluconate Inj/NS Inj) 120 ml @ 120 mls/hr ONCE ONCE IV 10/07/16 11:00 10/07/16 11:59 Urinary Catheter: No Vascular Central Line Catheter: No A/P Assessment and Plan 56-year-old female with a PMH of hypocalcemia, HTN, ESRD on HD M/W/F, COPD, CHF (Echo 05/11/16 w/ EF 55-60%) and GERD who came to the ER w/ complaints of chest pain x2 days. Hypocalcemia: S/p parathyroidectomy. Calcium 6.3 upon arrival. S/p IV Calcium Gluconate in the ED. Calcium improving but still low, PCC 6.6 today, will given additional 2G of IV Calcium Gluconate. Consulted nephrology, restarted patient' s Calcium Carbonate 1G q4h scheduled. Thoroughly discussed importance of taking po Calcium replacement, patient verbalized understanding. ESRD on HD: M/W/F. Nephrology consulted. Consulted Dr Villagran her nephrology doctor who recommends admission in the hospital. S/p dialysis yesterday. Chest Pain: Atypical. Likely secondary to hypocalcemia/electrolyte abnormalities. CXR unremarkable. Troponin negative. EKG reviewed, no acute changes or significant change from previous. Seen by cardiology on last recent admission, patient has normal Nuclear Stress Test, cleared by cardiology for DC. COPD: Chronic, stable. Does not appear to be in acute exacerbation. Hypertension/hypotension: Reportedly history of hypertension, however BP is fairly controlled. Continue to monitor. Rash the upper extremities: Possibly psoriasis. Follow-up with dermatology as outpatient. Continue steroid cream. Morbid Obesity: BMI 51.8. Counseled on weight reduction. 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 Other chronic medical conditions include GERD, Hypothyroidism, MBD, depression, neuropathy: Stable at this time and will continue home medications as indicated. PT consulted/ OT consult Case management consulted. DVT Prophylaxis: SCD /TEDs Written by Harmony Arroyo, acting as scribe for Dr. Zaragoza on 10/07/16 at 09:44. The documentation accurately reflects the work performed [id number] by me Dr. Zaragoza on 10/07/16 at 09:44. Discharge Planning Discharge patient to home Condition on discharge: Improved Heart Healthy/Renal Diet as tolerated Ad Coco activity Rx written: Calcium Carbonate 1G po q4h scheduled. Flexeril prn. 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
[2016-10-07] MEDS: GABAPENTIN 100 MG CAP PO SCH ×2 (10:30→13:00)
[2016-10-07] MEDS ORDERED: CALCIUM GLUCONATE INJ 2 GM in SODIUM CHLORIDE 0.9% INJ 100 ML IV ONE (11:00)
[2016-10-07] MEDS ORDERED: CYCL1TAB29 PO (11:22)
[2016-10-07] MEDS ORDERED: CALC500C16 CHEW (11:22)
--- NOTE | 2016-10-07 11:22 | HHI.DCPOC ---
Discharge Care Plan Diagnosis: (1) Chest pain (2) Hypocalcemia (3) ESRD (end stage renal disease) Goals to Promote Your Health * To prevent worsening of your condition and complications * To maintain your health at the optimal level Directions to Meet Your Goals Take your medications as prescribed Follow your dietary instruction Follow activity as directed Keep your appointments as scheduled Take your immunizations and boosters as scheduled If your symptoms worsen call your PCP, if no PCP go to Urgent Care Center or Emergency Room Smoking is Dangerous to Your Health. Avoid second hand smoke Call the 24-hour hour crisis hotline for domestic abuse at Harmony Arroyo PA-C Oct 07, 2016 11:22 Janneth Zaragoza MD Oct 07, 2016 18:10
[2016-10-07 11:34] VITALS: BP 136/74; PULSE 97; RESP 18; TEMP 98.2; O2SAT 93
--- NOTE | 2016-10-07 12:28 | EKG ---
Date Performed: 10/06/2016 Time Performed: 11:31:42 PTAGE: 56 years EKG: Sinus rhythm WITH OCCASIONAL SUPRAVENTRICULAR PREMATURE COMPLEXES LOW QRS VOLTAGE IN PRECORDIAL LEADS BORDERLINE ECG PREVIOUS TRACING : 09/06/2016 08.16 Compared to prior tracing no significant change DOCTOR: Yinka Terrell Interpretating Date/Time 10/07/2016 12:26:48
[2016-10-07] MEDS ORDERED: CYCLOBENZAPRINE HCL 10 MG TAB PO ONE ×2 (13:00)
[2016-10-07 14:30] VITALS: RESP 20
== END 2016-10-07 17:59 | disposition home or self-care (01) ==
LOC: NEPC 11:19 → NEDA 14:24 → NEPHCDU 16:39
PROVIDERS: ADMIT Hospitalist; ATTEND Hospitalist
DX: R07.89 Other chest pain (principal); E83.51 Hypocalcemia; I12.0 Hypertensive chronic kidney disease with stage 5 chronic kidney disease or end stage renal disease; N18.6 End stage renal disease; E11.22 Type 2 diabetes mellitus with diabetic chronic kidney disease; I95.9 Hypotension, unspecified; G47.30 Sleep apnea, unspecified; R21 Rash and other nonspecific skin eruption; E78.00 Pure hypercholesterolemia, unspecified; J44.9 Chronic obstructive pulmonary disease, unspecified; J45.909 Unspecified asthma, uncomplicated; I50.9 Heart failure, unspecified; E03.9 Hypothyroidism, unspecified; K21.9 Gastro-esophageal reflux disease without esophagitis; E66.01 Morbid (severe) obesity due to excess calories; G62.9 Polyneuropathy, unspecified; F32.9 Major depressive disorder, single episode, unspecified; Z68.43 Body mass index [BMI] 50.0-59.9, adult; Z86.14 Personal history of Methicillin resistant Staphylococcus aureus infection; Z88.1 Allergy status to other antibiotic agents; Z99.2 Dependence on renal dialysis; Z98.41 Cataract extraction status, right eye; Z79.01 Long term (current) use of anticoagulants
CPT/HCPCS: 71010; 80048; 82550; 83735; 83880; 84100; 84155; 84484; 85025; 93005; 96374; 96375; 97162; 99285; G0257; G0378; G8987; G8988; J0610; J1644; J7030; P9047; Q4081; 90935

== ENCOUNTER 2016-12-20 09:29 | Emergency (ER) | payer MEDICARE, OTHER ==
[~2016-12-20] VITALS: Ht 167.6 cm; Wt 134.0 kg
[~2016-12-20 09:29] MED LIST changes: +CYCL1TAB29 PO
[2016-12-20 09:31] VITALS: BP 112/61; PULSE 101; RESP 18; TEMP 97.8; O2SAT 96
[2016-12-20] MEDS ORDERED: SODIUM CHLORIDE 0.9% FLUSH 10 ML FLUSH IVF PRN (10:00)
[2016-12-20 10:39] VITALS: RESP 20; O2SAT 96
--- NOTE | 2016-12-20 11:16 | PD ---
HPI . Weakness Chief Complaint: General Weakness Time Seen by Provider: 09:57 Travel History International Travel<30 days: No Contact w/Intl Traveler<30days: No Traveled to known affect area: No History of Present Illness HPI Patient presents with generalized weakness. This has been an ongoing problem. It has been worse for the last week. Patient has a known history of hypocalcemia. She refuses to take her medication as the pills are "too big." [id number]: Generalized QUALITY: Weak DURATION: Chronic TIMING: Worse this past week CONTEXT: Dialysis patient with known hypocalcemia does not take her calcium supplements PFSH Past Medical History Hx Anticoagulant Therapy: No Anemia: Yes Arthritis: Yes Asthma: Yes Autoimmune Disease: No Blood Disorders: No Anxiety: Yes Depression: Yes Heart Rhythm Problems: No Cancer: No Cardiovascular Problems: Yes (HIGH CHOLESTEROL ) High Cholesterol: Yes Chemotherapy: No Chest Pain: Yes Congestive Heart Failure: Yes COPD: Yes Cerebrovascular Accident: No Diabetes: Yes Patient Takes Glucophage: Yes Dialysis: Yes (M/W/F) Diminished Hearing: No Endocrine: Yes Gastrointestinal Disorders: Yes (ULCERS) GERD: Yes Glaucoma: No Genitourinary: Yes (ESRD, Dialysis) Headaches: Yes Hepatitis: No Hiatal Hernia: No Hypertension: Yes (hx of not now) Immune Disorder: No Implanted Vascular Access Dvce: Yes (R FEMORAL AV FISTULA) Kidney Stones: No Musculoskeletal: Yes (Arthritis) Neurologic: No Psychiatric: Yes Reproductive: No Respiratory: Yes Immunizations Current: Yes Migraines: No Myocardial Infarction: No Pneumonia: Yes (HX) Radiation Therapy: Yes Renal Failure: Yes (CRF) Seizures: No Sickle Cell Disease: No Sleep Apnea: Yes Thyroid Disease: Yes Ulcer: Yes PNEUMOCCOCAL Vaccine (Year): 3 ?: Not Menopausal: Yes : 3 Para: 3 Miscarriage: 0 : 0 Past Surgical History Abdominal Surgery: Yes AICD: No Appendectomy: Yes Arteriovenous Shunt: Yes (right femoral av fistula) Body Medical Devices: Old nonfunctioning NANCY fistula. Current- Permacath Right Groin Cardiac Surgery: No Cholecystectomy: Yes Ear Surgery: No Endocrine Surgery: Yes (THYROIDECTOMY) Eye Surgery: Yes (LASIK right cataract removed / left removed) Genitourinary Surgery: Yes (Peritoneal Abdominal Catheter removed april 2015) Gynecologic Surgery: Yes (Partial Hysterectomy and Appendectomy ) Hysterectomy: Yes (PARTIAL ) Insulin Pump: No Joint Replacement: No Neurologic Surgery: No Oral Surgery: Yes (ALL TEETH REMOVED) Pacemaker: No Thoracic Surgery: No Other Surgery: Yes (RIGHT HAND, APPENDECTOMY, GALL BLADDER REMOVAL) Social History Alcohol Use: Yes (OCCASIONALLY ) Tobacco Use: No Substance Use: No Allergies-Medications (Allergen,Severity, Reaction): Coded Allergies: Levaquin (Unverified Allergy, Severe, 12/20/16) ANAPHYLAXIS *MDRO Multi-Drug Resistant Organism (Verified Adverse Reaction, Unknown, Cleared, 12/20/16) MRSA (wound) - 04/2011, (blood) - 10/2011 MRSA PCR Screens NEGATIVE - 02/17/15 & 02/19/15 CLEARED PER INFECTION CONTROL Reported Meds & Prescriptions Reported Meds & Active Scripts Active Flexeril (Cyclobenzaprine HCl) 10 Mg Tab 10 Mg PO BID PRN Calcium Carbonate (Antacid) 500 Mg Chew 1,000 Mg CHEW Q4HR Midodrine 5 Mg Tab 10 Mg PO TID@, Calcium Carbonate (Antacid) 500 Mg Chew 500 Mg CHEW 5 TIMES A DAY 30 Days Nystop Topical (Nystatin Topical) 100,000 Unit/Gm Powd 1 Applic TOPICAL Q8HR Hydroskin (Hydrocortisone (Topical)) 1 % Lot 1 Applic TOPICAL Q8HR Aspirin EC (Aspirin) 81 Mg Tabdr 81 Mg PO DAILY Reported Sucralfate 1 Gm Tab 1 Gm PO BIDAC on empty stomach Rocaltrol (Calcitriol) 0.25 Mcg Cap 0.25 Mcg PO DAILY Pantoprazole (Pantoprazole Sodium) 40 Mg Tab 40 Mg PO DAILY Levothyroxine (Levothyroxine Sodium) 50 Mcg Tab 50 Mcg PO DAILY Gabapentin 100 Mg Cap 200 Mg PO TID Bupropion HCl 75 Mg Tab 75 Mg PO DAILY Atorvastatin (Atorvastatin Calcium) 40 Mg Tab 40 Mg PO HS Review of Systems Except as stated in HPI: all other systems reviewed are Neg Neurologic: Positive: Weakness Physical Exam Narrative GENERAL: Awake and alert and in no acute distress. Markedly obese. SKIN: Warm and dry. CARDIOVASCULAR: Regular rate and rhythm. RESPIRATORY: No accessory muscle use. MUSCULOSKELETAL: No obvious deformities. No edema. NEUROLOGICAL: Awake and alert. No obvious cranial nerve deficits. Motor grossly within normal limits. Normal speech. PSYCHIATRIC: Appropriate mood and affect; insight and judgment normal. Data Data Last Documented VS Vital Signs Date Time Temp Pulse Resp B/P Pulse Ox O2 Delivery O2 Flow Rate FiO2 12/20/16 10:39 20 96 Room Air 12/20/16 09:31 97.8 101 112/61 Orders Basic Metabolic Panel (Bmp) (12/20/16 09:57) Complete Blood Count With Diff (12/20/16 09:57) Magnesium (Mg) (12/20/16 09:57) Ecg Monitoring (12/20/16 09:57) Iv Access Insert/Monitor (12/20/16 09:57) Oximetry (12/20/16 09:57) Sodium Chloride 0.9% Flush (Ns Flush) (12/20/16 10:00) Protein Corrected Calcium(Pcc) (12/20/16 11:45) Labs Laboratory Tests Test 12/20/16 11:45 White Blood Count 8.4 TH/MM3 Red Blood Count 4.59 MIL/MM3 Hemoglobin 13.3 GM/DL Hematocrit 43.0 % Mean Corpuscular Volume 93.8 FL Mean Corpuscular Hemoglobin 29.0 PG Mean Corpuscular Hemoglobin 30.9 % Concent Red Cell Distribution Width 16.6 % Platelet Count 280 TH/MM3 Mean Platelet Volume 8.1 FL Neutrophils (%) (Auto) 76.4 % Lymphocytes (%) (Auto) 8.1 % Monocytes (%) (Auto) 7.0 % Eosinophils (%) (Auto) 7.9 % Basophils (%) (Auto) 0.6 % Neutrophils # (Auto) 6.4 TH/MM3 Lymphocytes # (Auto) 0.7 TH/MM3 Monocytes # (Auto) 0.6 TH/MM3 Eosinophils # (Auto) 0.7 TH/MM3 Basophils # (Auto) 0.0 TH/MM3 CBC Comment DIFF FINAL Differential Comment Sodium Level 139 MEQ/L Potassium Level 5.2 MEQ/L Chloride Level 103 MEQ/L Carbon Dioxide Level 25.6 MEQ/L Anion Gap 10 MEQ/L Blood Urea Nitrogen 53 MG/DL Creatinine 8.83 MG/DL Estimat Glomerular Filtration 6 ML/MIN Rate Random Glucose 89 MG/DL Calcium Level 6.3 MG/DL Protein Corrected Calcium MG/DL Magnesium Level 2.3 MG/DL Total Protein 8.9 GM/DL MDM Medical Decision Making Medical Screen Exam Complete: Yes Emergency Medical Condition: Yes Medical Record Reviewed: Yes (patient is chronically hypocalcemic) Differential Diagnosis Differential diagnosis of weakness includes but is not limited to infection, CVA , electrolyte disturbance, renal failure, hypoglycemia, UTI, ACS, acute blood loss Narrative Course Patient presents complaining with generalized weakness. She is noncompliant with her calcium supplementation. CBC & BMP Diagram 12/20/16 11:45 Calcium is 6.3 which is the same as it has been before. Venous access has been an issue. The patient does not have an IV. She will be instructed to supplement her calcium orally. Also, perhaps she could be given calcium during her dialysis. Diagnosis Primary Impression: Hypocalcemia Additional Instructions: Try taking the calcium gummies. You can buy them at the [employer] or at [employer]. Ask dialysis to give you some calcium when you have your dialysis. Disposition: 01 DISCHARGE HOME Condition: Stable Autumn Hewitt MD Dec 20, 2016 11:16
[2016-12-20 13:06] LABS: AUTOMATED NEUTROPHIL # 6.4 TH/MM3 (1.8-7.7); BASOPHIL % 0.6 % (0.0-2.0); EOSINOPHIL # 0.7 TH/MM3 (0-0.4); EOSINOPHIL % 7.9 % (0.0-4.0); HEMO FLAGS DIFF FINAL; LYMPH % 8.1 % (9.0-44.0); LYMPHOCYTE # 0.7 TH/MM3 (1.0-4.8); MEAN CELL VOLUME 93.8 FL (80.0-100.0); MEAN CORPUSCULAR HGB CONC 30.9 % (32.0-36.0); NEUT % 76.4 % (16.0-70.0); PLATELET COUNT 280 TH/MM3 (150-450); RED BLOOD COUNT 4.59 MIL/MM3 (4.00-5.30); RED CELL DISTRIBUTION WIDTH 16.6 % (11.6-17.2); WHITE BLOOD COUNT 8.4 TH/MM3 (4.0-11.0)
[2016-12-20 13:21] LABS: BICARBONATE 25.6 MEQ/L (21.0-32.0); MAGNESIUM 2.3 MG/DL (1.5-2.5); POTASSIUM 5.2 MEQ/L (3.5-5.1)
== END 2016-12-20 14:08 | disposition home or self-care (01) ==
LOC: NEPC 09:29
DX: E83.51 Hypocalcemia (principal)
CPT/HCPCS: 80048; 83735; 84155; 85025; 99284

== ENCOUNTER 2016-12-21 19:52 | Inpatient (IN) | payer MEDICARE, OTHER ==
[~2016-12-21] VITALS: Ht 167.6 cm; Wt 136.4 kg
[2016-12-21 20:04] VITALS: BP 112/63; PULSE 92; RESP 16; TEMP 97.8; O2SAT 98
[2016-12-21 20:11] VITALS: O2SAT 100
[2016-12-21] MEDS ORDERED: SODIUM CHLORIDE 0.9% FLUSH 10 ML FLUSH IV FLUSH PRN ×2 (20:15→22:00)
[2016-12-21 20:28] LABS: AUTOMATED NEUTROPHIL # 8.1 TH/MM3 (1.8-7.7); BASOPHIL # 0.1 TH/MM3 (0-0.2); BASOPHIL % 0.8 % (0.0-2.0); EOSINOPHIL # 0.7 TH/MM3 (0-0.4); EOSINOPHIL % 6.5 % (0.0-4.0); HEMATOCRIT 39.1 % (35.0-46.0); HEMO FLAGS DIFF FINAL; LYMPH % 7.9 % (9.0-44.0); LYMPHOCYTE # 0.8 TH/MM3 (1.0-4.8); MEAN CELL VOLUME 92.7 FL (80.0-100.0); MEAN CORPUSCULAR HEMOGLOBIN 29.8 PG (27.0-34.0); MEAN CORPUSCULAR HGB CONC 32.2 % (32.0-36.0); MONO % 7.8 % (0.0-8.0); PLATELET COUNT 307 TH/MM3 (150-450); RED BLOOD COUNT 4.22 MIL/MM3 (4.00-5.30); RED CELL DISTRIBUTION WIDTH 16.5 % (11.6-17.2); WHITE BLOOD COUNT 10.5 TH/MM3 (4.0-11.0)
--- NOTE | 2016-12-21 20:29 | PD ---
HPI Chief Complaint: General Weakness Time Seen by Provider: 20:03 Travel History International Travel<30 days: No Contact w/Intl Traveler<30days: No Traveled to known affect area: No History of Present Illness HPI 56-year-old female with ESRD on HD (MWF), hypocalcemia, missed dialysis yesterday because she was in the emergency department, diagnosed her with hypocalcemia and discharged home with instructions to take extra oral calcium at home, here for evaluation of generalized weakness, lightheadedness, and shortness of breath. Symptoms of it going on for last couple of days. She denies fevers or chills. No chest pain. Dyspnea is at rest, worse with exertion. No abdominal pain. No paresthesias or motor deficits. PFSH Past Medical History Hx Anticoagulant Therapy: No Anemia: Yes Arthritis: Yes Asthma: Yes Autoimmune Disease: No Blood Disorders: No Anxiety: Yes Depression: Yes Heart Rhythm Problems: No Cancer: No Cardiovascular Problems: Yes (HIGH CHOLESTEROL ) High Cholesterol: Yes Chemotherapy: No Chest Pain: Yes Congestive Heart Failure: Yes COPD: Yes Cerebrovascular Accident: No Diabetes: Yes Patient Takes Glucophage: No Dialysis: Yes (M/W/F) Diminished Hearing: No Endocrine: Yes Gastrointestinal Disorders: Yes (ULCERS) GERD: Yes Glaucoma: No Genitourinary: Yes (ESRD, Dialysis) Headaches: Yes Hepatitis: No Hiatal Hernia: No Hypertension: Yes (hx of not now) Immune Disorder: No Implanted Vascular Access Dvce: Yes (R FEMORAL AV FISTULA) Kidney Stones: No Musculoskeletal: Yes (Arthritis) Neurologic: No Psychiatric: Yes Reproductive: No Respiratory: Yes Immunizations Current: Yes Migraines: No Myocardial Infarction: No Pneumonia: Yes (HX) Radiation Therapy: Yes Renal Failure: Yes (CRF) Seizures: No Sickle Cell Disease: No Sleep Apnea: Yes Thyroid Disease: Yes Ulcer: Yes Tetanus Vaccination: > 5 Years Influenza Vaccination: Yes PNEUMOCCOCAL Vaccine (Year): 3 Menopausal: Yes : 3 Para: 3 Miscarriage: 0 : 0 Past Surgical History Abdominal Surgery: Yes AICD: No Appendectomy: Yes Arteriovenous Shunt: Yes (right femoral av fistula) Body Medical Devices: Old nonfunctioning NANCY fistula. Current- Permacath Right Groin Cardiac Surgery: No Cholecystectomy: Yes Ear Surgery: No Endocrine Surgery: Yes (THYROIDECTOMY) Eye Surgery: Yes (LASIK right cataract removed / left removed) Genitourinary Surgery: Yes (Peritoneal Abdominal Catheter removed april 2015) Gynecologic Surgery: Yes (Partial Hysterectomy and Appendectomy ) Hysterectomy: Yes (PARTIAL ) Insulin Pump: No Joint Replacement: No Neurologic Surgery: No Oral Surgery: Yes (ALL TEETH REMOVED) Pacemaker: No Thoracic Surgery: No Other Surgery: Yes (RIGHT HAND, APPENDECTOMY, GALL BLADDER REMOVAL) Social History Alcohol Use: Yes (OCCASIONALLY ) Tobacco Use: Yes Substance Use: No Allergies-Medications (Allergen,Severity, Reaction): Coded Allergies: Levaquin (Unverified Allergy, Severe, 12/21/16) ANAPHYLAXIS *MDRO Multi-Drug Resistant Organism (Verified Adverse Reaction, Unknown, Cleared, 12/21/16) MRSA (wound) - 04/2011, (blood) - 10/2011 MRSA PCR Screens NEGATIVE - 02/17/15 & 02/19/15 CLEARED PER INFECTION CONTROL Reported Meds & Prescriptions Reported Meds & Active Scripts Active Flexeril (Cyclobenzaprine HCl) 10 Mg Tab 10 Mg PO BID PRN Calcium Carbonate (Antacid) 500 Mg Chew 1,000 Mg CHEW Q4HR Midodrine 5 Mg Tab 10 Mg PO TID@,, Calcium Carbonate (Antacid) 500 Mg Chew 500 Mg CHEW 5 TIMES A DAY 30 Days Nystop Topical (Nystatin Topical) 100,000 Unit/Gm Powd 1 Applic TOPICAL Q8HR Hydroskin (Hydrocortisone (Topical)) 1 % Lot 1 Applic TOPICAL Q8HR Aspirin EC (Aspirin) 81 Mg Tabdr 81 Mg PO DAILY Reported Sucralfate 1 Gm Tab 1 Gm PO BIDAC on empty stomach Rocaltrol (Calcitriol) 0.25 Mcg Cap 0.25 Mcg PO DAILY Pantoprazole (Pantoprazole Sodium) 40 Mg Tab 40 Mg PO DAILY Levothyroxine (Levothyroxine Sodium) 50 Mcg Tab 50 Mcg PO DAILY Gabapentin 100 Mg Cap 200 Mg PO TID Bupropion HCl 75 Mg Tab 75 Mg PO DAILY Atorvastatin (Atorvastatin Calcium) 40 Mg Tab 40 Mg PO HS Review of Systems Except as stated in HPI: all other systems reviewed are Neg Physical Exam Narrative GENERAL: Well-developed, well-nourished, overweight, comfortable, no acute distress. SKIN: Focused skin assessment warm/dry. HEAD: Atraumatic. Normocephalic. EYES: Pupils equal and round. No scleral icterus. No injection or drainage. ENT: Mucous membranes pink and moist. NECK: Trachea midline. No JVD. CARDIOVASCULAR: Regular rate and rhythm. RESPIRATORY: No accessory muscle use. Clear to auscultation. Breath sounds equal bilaterally. GASTROINTESTINAL: Abdomen soft, non-tender, nondistended. MUSCULOSKELETAL: No obvious deformities. No clubbing. No cyanosis. No edema. NEUROLOGICAL: Awake and alert. No obvious cranial nerve deficits. Motor grossly within normal limits. Normal speech. Normal strength in all 4 extremities. PSYCHIATRIC: Appropriate mood and affect; insight and judgment normal. Data Data Last Documented VS Vital Signs Date Time Temp Pulse Resp B/P Pulse Ox O2 Delivery O2 Flow Rate FiO2 12/21/16 21:00 89 16 130/63 95 Room Air 12/21/16 20:04 97.8 Orders Complete Blood Count With Diff (12/21/16 20:09) Comprehensive Metabolic Panel (12/21/16 20:09) Prothrombin Time / Inr (Pt) (12/21/16 20:09) Act Partial Throm Time (Ptt) (12/21/16 20:09) Iv Access Insert/Monitor (12/21/16 20:09) Ecg Monitoring (12/21/16 20:09) Oximetry (12/21/16 20:09) Sodium Chloride 0.9% Flush (Ns Flush) (12/21/16 20:15) Chest, Single Ap (12/21/16 ) Vascular Access Team Consult PRN (12/21/16 20:18) Vascular Poc Ultrasound (12/21/16 ) Calcium Gluconate Inj (Calcium Gluconate (12/21/16 21:45) Sodium Polysty Sulfate Liq (Kayexalate L (12/21/16 21:45) Labs Laboratory Tests Test 12/21/16 20:10 White Blood Count 10.5 TH/MM3 Red Blood Count 4.22 MIL/MM3 Hemoglobin 12.6 GM/DL Hematocrit 39.1 % Mean Corpuscular Volume 92.7 FL Mean Corpuscular Hemoglobin 29.8 PG Mean Corpuscular Hemoglobin 32.2 % Concent Red Cell Distribution Width 16.5 % Platelet Count 307 TH/MM3 Mean Platelet Volume 8.3 FL Neutrophils (%) (Auto) 77.0 % Lymphocytes (%) (Auto) 7.9 % Monocytes (%) (Auto) 7.8 % Eosinophils (%) (Auto) 6.5 % Basophils (%) (Auto) 0.8 % Neutrophils # (Auto) 8.1 TH/MM3 Lymphocytes # (Auto) 0.8 TH/MM3 Monocytes # (Auto) 0.8 TH/MM3 Eosinophils # (Auto) 0.7 TH/MM3 Basophils # (Auto) 0.1 TH/MM3 CBC Comment DIFF FINAL Differential Comment Prothrombin Time 11.3 SEC Prothromb Time International 1.0 RATIO Ratio Activated Partial 33.1 SEC Thromboplast Time Sodium Level 140 MEQ/L Potassium Level 6.5 MEQ/L Chloride Level 106 MEQ/L Carbon Dioxide Level 23.0 MEQ/L Anion Gap 11 MEQ/L Blood Urea Nitrogen 80 MG/DL Creatinine 12.10 MG/DL Estimat Glomerular Filtration 4 ML/MIN Rate Random Glucose 89 MG/DL Calcium Level 5.7 MG/DL Protein Corrected Calcium MG/DL Total Bilirubin 0.3 MG/DL Aspartate Amino Transf 15 U/L (AST/SGOT) Alanine Aminotransferase 18 U/L (ALT/SGPT) Alkaline Phosphatase 67 U/L Total Protein 8.4 GM/DL Albumin 2.9 GM/DL [facility] Medical Decision Making Medical Screen Exam Complete: Yes Emergency Medical Condition: Yes Medical Record Reviewed: Yes Differential Diagnosis Hypocalcemia, fluid overload, chronic renal insufficiency Narrative Course Vital signs show heart rate 92, blood pressure 112/63, pulse ox 98% on room air , oral temp of 97.8F. CBC is unremarkable. CMP is remarkable for potassium 6.5 with slight hemolysis, BUN 80, creatinine 12.1, GFR 4, calcium 5.7 Chest x-ray: No acute disease. Case discussed with the patient's architectural design lecturer Dr. Villagran. He agrees with calcium replacement, Kayexalate for her hypercalcemia, admission to observation so the patient can be dialyzed tomorrow morning. Case discussed with hospitalist Dr. Yuan who will admit the patient to her service. Diagnosis Primary Impression: Hypocalcemia Additional Impressions: End stage renal disease Hyperkalemia Generalized weakness Admitting Information Admitting Physician Requests: Observation Chris Porras MD Dec 21, 2016 20:29
[2016-12-21 20:38] LABS: APTT (PATIENT) 33.1 SEC (24.3-30.1); PROTHROMBIN TIME - PATIENT 11.3 SEC (9.8-11.6)
[2016-12-21 20:59] LABS: TOTAL BILIRUBIN ADULT 0.3 MG/DL (0.2-1.0)
[2016-12-21 21:00] VITALS: BP 130/63; PULSE 89; RESP 16; O2SAT 95
[2016-12-21 21:05] LABS: POTASSIUM 6.5 MEQ/L (3.5-5.1)
--- NOTE | 2016-12-21 21:28 | RADRPT ---
EXAM DATE/TIME: 12/21/2016 20:51 [facility] COMPARISON: CHEST SINGLE AP, October 06, 2016, 12:52. INDICATIONS : Short of breath. MEDICAL HISTORY : Cardiovascular disease. Renal disease, end stage. Chronic obstructive pulmonary disease. SURGICAL HISTORY : Appendectomy. Cholecystectomy. Hysterectomy. ENCOUNTER: Initial ACUITY: 1 day PAIN SCORE: 0/10 LOCATION: Bilateral upper chest FINDINGS: A left subclavian HeRO dialysis implant is again noted. The lungs are focally clear. No pleural effus ion is evident. Cardiomediastinal contours are stable and satisfactory. CONCLUSION: No acute disease. Damián Chung MD on December 21, 2016 at 21:20 Board Certified Radiologist. This report was verified electronically.
[2016-12-21] MEDS ORDERED: CALCIUM GLUCONATE INJ 2 GM in DEXTROSE 5% IN WATER 100ML INJ 100 ML IV ONE ×2 (21:45)
[2016-12-21] MEDS ORDERED: SODIUM POLYSTYRENE SULFONATE SUSP 15 GM/60 ML CUP PO ONE (21:45)
[2016-12-21] MEDS ORDERED: RESP: ALBUTEROL 2.5 MG/IPRATROPIUM 0.5 MG NEB (PRN) NEB (22:00)
[2016-12-21] MEDS ORDERED: ACETAMINOPHEN 325 MG TAB PO PRN (22:00)
[2016-12-21] MEDS ORDERED: NALOXONE HCL 0.4 MG/ML AMP IV PRN (22:00)
[2016-12-21] MEDS: HEPARIN SODIUM - SQ 10,000 UNITS/ML VIAL SQ SCH (22:55)
--- NOTE | 2016-12-21 23:13 | HHI.HP ---
[facility] No Primary Care Physician Admission Diagnosis hypocalcemia, hyperkalemia, ESRD, generalized weakness Diagnoses: Chief Complaint: generalized weakness Travel History International Travel<30 Days: No Contact w/Intl Traveler <30 Da: No Traveled to Known Affected Are: No History of Present Illness This is a 56-year-old female patient with a PMH of hypocalcemia s/p parathyroidectomy, ESRD on HD M/W/F, COPD, asthma, CHF (Echo 05/11/16 w/ EF 55-60% ), sleep apnea does not wear Cpap or Bipap to sleep and GERD. This past Sunday at HD patient reports was told her calcium level was low then Sunday patient began to have generalized weakness and went to ER yesterday 08/26 for patient was found to have a calcium level of 6.3. Patient was discharged and instructed to take calcium gummies to supplement and have calcium added at time of HD. Patient then returned today with c/o continued generalize weakness, dizziness and SOB as she missed her HD yesterday because she was in the ER. ER provider discussed with patient staff psychologist Dr. Villagran. Patient denies N/V/D/C, fevers, chills, palpitations or chest pain. Review of Systems Except as stated in HPI: all other systems reviewed are Neg Past Family Social History Past Medical History Chronic hypocalcemia, HTN, ESRD on HD M/W/F, COPD, CHF (Echo 05/11/16 w/ EF 55-60% ) and GERD Past Surgical History RUE AV Fistula, Right Groin AV Fistula, PD Catheter Placement and Removal, Partial Hysterectomy, Appendectomy, Cholecystectomy, Parathyroidectomy, Right Cataract Surgery, Dental Extraction Reported Medications Flexeril (Cyclobenzaprine HCl) 10 Mg Tab 10 Mg PO BID PRN Calcium Carbonate (Antacid) 500 Mg Chew 1,000 Mg CHEW Q4HR Midodrine 5 Mg Tab 10 Mg PO TID@07,12,17 Calcium Carbonate (Antacid) 500 Mg Chew 500 Mg CHEW 5 TIMES A DAY 30 Days Nystop Topical (Nystatin Topical) 100,000 Unit/Gm Powd 1 Applic TOPICAL Q8HR Hydroskin (Hydrocortisone (Topical)) 1 % Lot 1 Applic TOPICAL Q8HR Aspirin EC (Aspirin) 81 Mg Tabdr 81 Mg PO DAILY Sucralfate 1 Gm Tab 1 Gm PO BIDAC on empty stomach Rocaltrol (Calcitriol) 0.25 Mcg Cap 0.25 Mcg PO DAILY Pantoprazole (Pantoprazole Sodium) 40 Mg Tab 40 Mg PO DAILY Levothyroxine (Levothyroxine Sodium) 50 Mcg Tab 50 Mcg PO DAILY Gabapentin 100 Mg Cap 200 Mg PO TID Bupropion HCl 75 Mg Tab 75 Mg PO DAILY Atorvastatin (Atorvastatin Calcium) 40 Mg Tab 40 Mg PO HS Allergies: Coded Allergies: Levaquin (Unverified Allergy, Severe, 12/21/16) ANAPHYLAXIS *MDRO Multi-Drug Resistant Organism (Verified Adverse Reaction, Unknown, Cleared, 12/21/16) MRSA (wound) - 04/2011, (blood) - 10/2011 MRSA PCR Screens NEGATIVE - 02/17/15 & 02/19/15 CLEARED PER INFECTION CONTROL Active Ordered Medications Current Medications Medications (Trade) Dose Ordered Sig/Mary Grace Route Start Time Stop Time Status Last Admin (NS Flush) 2 ml UNSCH PRN IV FLUSH 12/21/16 22:00 (NS Flush) 2 ml BID IV FLUSH 12/22/16 09:00 (Tylenol) 650 mg Q4H PRN PO 12/21/16 22:00 (Zofran Inj) 4 mg Q6H PRN IVP 12/21/16 22:00 (Heparin Inj) 5,000 units Q12H SQ 12/21/16 22:00 12/21/16 22:55 (Narcan Inj) 0.4 mg UNSCH PRN IV 12/21/16 22:00 Family History Mother with DM, HTN, DM, hyperlipidemia Sister HTN, DM Father prostate CA Brother EtOH abuse 2/2 complications Social History current tobacco use <0.5 PPD ETOH once a week to once every other week used cocaine when she was younger Physical Exam Vital Signs Vital Signs Date Time Temp Pulse Resp B/P Pulse Ox O2 Delivery O2 Flow Rate FiO2 12/21/16 21:00 89 16 130/63 95 Room Air 12/21/16 20:11 100 Room Air 12/21/16 20:04 97.8 92 16 112/63 98 Physical Exam GENERAL: This is a 56 year old morbidly obese AA female patient, in no apparent distress. SKIN: multiple healed car from previous HD accesses HEAD: Atraumatic. Normocephalic. No temporal or scalp tenderness. EYES: Extraocular motions intact. No scleral icterus. No injection or drainage. NECK: Trachea midline. large/thick neck difficult to evaluate for JVD or lymphadenopathy. Supple, nontender, no meningeal signs. CARDIOVASCULAR: Regular rate and rhythm without murmurs, gallops, or rubs. RESPIRATORY: difficult to auscultate due to body habitus. Distant lung sounds. No wheezes, rales, or rhonchi. GASTROINTESTINAL: Abdomen soft, non-tender, nondistended. No hepato-splenomegaly , or palpable masses. No guarding. MUSCULOSKELETAL: Extremities without clubbing, cyanosis, or edema. No joint tenderness, effusion, or edema noted. No calf tenderness. Negative Homans sign bilaterally. NEUROLOGICAL: Awake and alert. Motor and sensory grossly within normal limits. Five out of 5 muscle strength in all muscle groups. Normal speech. Laboratory Laboratory Tests Test 12/21/16 20:10 White Blood Count 10.5 Red Blood Count 4.22 Hemoglobin 12.6 Hematocrit 39.1 Mean Corpuscular Volume 92.7 Mean Corpuscular Hemoglobin 29.8 Mean Corpuscular Hemoglobin 32.2 Concent Red Cell Distribution Width 16.5 Platelet Count 307 Mean Platelet Volume 8.3 Neutrophils (%) (Auto) 77.0 Lymphocytes (%) (Auto) 7.9 Monocytes (%) (Auto) 7.8 Eosinophils (%) (Auto) 6.5 Basophils (%) (Auto) 0.8 Neutrophils # (Auto) 8.1 Lymphocytes # (Auto) 0.8 Monocytes # (Auto) 0.8 Eosinophils # (Auto) 0.7 Basophils # (Auto) 0.1 CBC Comment DIFF FINAL Differential Comment Prothrombin Time 11.3 Prothromb Time International 1.0 Ratio Activated Partial 33.1 Thromboplast Time Sodium Level 140 Potassium Level 6.5 Chloride Level 106 Carbon Dioxide Level 23.0 Anion Gap 11 Blood Urea Nitrogen 80 Creatinine 12.10 Estimat Glomerular Filtration 4 Rate Random Glucose 89 Calcium Level 5.7 Protein Corrected Calcium Total Bilirubin 0.3 Aspartate Amino Transf 15 (AST/SGOT) Alanine Aminotransferase 18 (ALT/SGPT) Alkaline Phosphatase 67 Total Protein 8.4 Albumin 2.9 Result Diagram: 12/21/16200912/21/162009 Imaging Last Impressions Chest X-Ray 12/21/16 0000 Signed Impressions: Service Date/Time: December 20:51 - CONCLUSION: No acute disease. Damián Chung MD Assessment and Plan Problem List: (1) Hypocalcemia ICD Code: E83.51 Status: Resolved (2) Hyperkalemia ICD Code: E87.5 Status: Acute (3) ESRD (end stage renal disease) ICD Code: N18.6 Status: Chronic Assessment and Plan This is a 56-year-old female patient with a PMH of hypocalcemia s/p parathyroidectomy, ESRD on HD M/W/F, COPD, asthma, CHF (Echo 05/11/16 w/ EF 55-60% ), sleep apnea does not wear Cpap or Bipap to sleep and GERD. Hypocalcemia replaced 2grams IV hyperkalemia Kayexalate plan for HD in AM ESRD on HD Patient known to Dr. Villagran, consult placed ER provider discussed with Dr. Villagran plan to have dialysis in AM DVT prophylaxis with heparin sub Q Discussed with ER provider, nursing and patient Written by Alyse Dc, acting as scribe for Dr. Yuan on 12/22/16 at 01: 26. This note was transcribed by scribe [Alyse Dc]. I, Dr. Warren Yuan personally performed the history, physical exam, and medical decision making; and confirmed the accuracy of the information in the transcribed note. Authenticated by Dr. Warren Yuan on 12/22/16 at 01:26. Alyse Dc Dec 21, 2016 23:13 Warren Yuan MD January 08, 2017 05:35
[2016-12-21 23:55] VITALS: BP 139/98; PULSE 88; RESP 20; TEMP 97; O2SAT 96
[2016-12-22] VITALS (10 sets, daily range): BP systolic 106–134; BP diastolic 60–84; PULSE 75–95; RESP 16–22; TEMP 97.6–99; O2SAT 92–100
[2016-12-22] MEDS: ACETAMINOPHEN/HYDROcodone 325 MG/5 MG TAB PO PRN ×2 (00:08→18:02)
[2016-12-22] MEDS ORDERED: CYCLOBENZAPRINE HCL 10 MG TAB PO PRN (01:45)
[2016-12-22 03:34] LABS: BICARBONATE 23.6 MEQ/L (21.0-32.0); POTASSIUM 5.1 MEQ/L (3.5-5.1)
[2016-12-22 03:52] LABS: CALCIUM-PROTEIN CORRECTED 5.5 MG/DL (8.5-10.1)
[2016-12-22] MEDS ORDERED: CALCIUM GLUCONATE 10% 1 GM/10 ML VIAL IV PUSH ONE (05:30)
[2016-12-22] MEDS: CALCIUM CARBONATE 500 MG CHEWABLE TAB CHEW SCH ×10 (05:30→22:57)
[2016-12-22] MEDS: MIDODRINE 5 MG TAB PO SCH ×3 (05:31→17:56)
[2016-12-22] MEDS: EUCERIN CREAM 120 GM JAR TOPICAL PRN (05:31)
[2016-12-22] MEDS: LEVOTHYROXINE SODIUM 50 MCG TAB PO SCH (05:31)
[2016-12-22] MEDS: SUCRALFATE 1 GM TAB PO SCH ×2 (05:31→17:33)
[2016-12-22] MEDS: HYDROCORTISONE 1% CREAM 30 GM TOPICAL SCH ×3 (05:31→23:02)
[2016-12-22 07:50] LABS: BASOPHIL % 0.4 % (0.0-2.0); EOSINOPHIL # 0.7 TH/MM3 (0-0.4); EOSINOPHIL % 7.6 % (0.0-4.0); HEMATOCRIT 38.2 % (35.0-46.0); HEMO FLAGS DIFF FINAL; LYMPH % 9.7 % (9.0-44.0); LYMPHOCYTE # 0.9 TH/MM3 (1.0-4.8); MEAN CELL VOLUME 93.8 FL (80.0-100.0); MEAN CORPUSCULAR HEMOGLOBIN 28.9 PG (27.0-34.0); MEAN CORPUSCULAR HGB CONC 30.8 % (32.0-36.0); MONO % 8.2 % (0.0-8.0); NEUT % 74.1 % (16.0-70.0); PLATELET COUNT 282 TH/MM3 (150-450); RED BLOOD COUNT 4.08 MIL/MM3 (4.00-5.30); RED CELL DISTRIBUTION WIDTH 16.2 % (11.6-17.2); WHITE BLOOD COUNT 9.4 TH/MM3 (4.0-11.0)
[2016-12-22] MEDS ORDERED: SODIUM CHLOR 0.9% 1000 ML INJ 1,000 ML IV PRN ×3 (08:02)
[2016-12-22] MEDS ORDERED: CALCIUM GLUCONATE INJ 2 GM in SODIUM CHLORIDE 0.9% INJ 100 ML IV ONE (08:15)
[2016-12-22] MEDS ORDERED: ONDANSETRON HCL 4 MG/2 ML VIAL IV PRN (08:15)
[2016-12-22] MEDS ORDERED: GELATIN 12 MM/7 MM FOAM TOP PRN (08:15)
[2016-12-22] MEDS ORDERED: HEPARIN SODIUM - IV 10,000 UNITS/10 ML VIAL IVF PRN (08:15)
[2016-12-22] MEDS ORDERED: SODIUM CHLORIDE 0.9% FLUSH 10 ML FLUSH IV FLUSH PRN (08:15)
[2016-12-22] MEDS ORDERED: ACETAMINOPHEN 325 MG TAB PO PRN (08:15)
[2016-12-22] MEDS ORDERED: cloNIDine HCL 0.1 MG TAB PO PRN (08:15)
[2016-12-22] MEDS ORDERED: ALBUMIN HUMAN 25% 25 GM/100 ML BAGP IV PRN (08:15)
[2016-12-22] MEDS ORDERED: diphenhydrAMINE HCL 25 MG CAP PO PRN (08:15)
[2016-12-22] MEDS ORDERED: MANNITOL 12.5 GM/50 ML VIAL IV PRN (08:15)
[2016-12-22] MEDS ORDERED: NITROGLYCERIN 0.4 MG SL 25 TABS/BTL SL PRN (08:15)
[2016-12-22 08:16] LABS: BICARBONATE 24.1 MEQ/L (21.0-32.0)
--- NOTE | 2016-12-22 08:51 | HHI.PR ---
Subjective Remarks Follow-up for hypercalcemia and lightheadedness. The patient states that for the past week she's been feeling weak and lightheaded. She states that she's been feeling ill, with dry cough and sinus congestion. She does report decreased oral intake over the past week due to decreased appetite, no nausea or vomiting. She normally ambulates using a walker and wheelchair. She lives at home with her daughter. She did miss her previous hemodialysis session on Sunday because she was in the emergency room. She is not sure what her baseline calcium level is. Objective Vitals Vital Signs Date Time Temp Pulse Resp B/P Pulse Ox O2 Delivery O2 Flow Rate FiO2 12/22/16 07:10 95 12/22/16 04:46 99.0 88 20 106/60 95 12/22/16 01:12 20 12/22/16 00:08 98 21 12/21/16 23:55 97.0 88 20 139/98 96 12/21/16 21:00 89 16 130/63 95 Room Air 12/21/16 20:11 100 Room Air 12/21/16 20:04 97.8 92 16 112/63 98 Result Diagram: 12/22/16 0719 12/22/16 0719 Imaging Last Impressions Chest X-Ray 12/21/16 0000 Signed Impressions: Service Date/Time: December 20:51 - CONCLUSION: No acute disease. Damián Chung MD Objective Remarks GENERAL: Well-developed well-nourished. Morbidly obese. In no acute distress. SKIN: Warm and dry. No lesions noted. HEENT: Normocephalic. Pupils equal and round. Mucous membranes pink and moist. CARDIOVASCULAR: Regular rate and rhythm. No murmur appreciated. RESPIRATORY: No accessory muscle use. Clear to auscultation. Breath sounds diminished secondary to body habitus. GASTROINTESTINAL: Abdomen soft, non-tender, nondistended. Bowel sounds x4. MUSCULOSKELETAL: No obvious deformities. No clubbing or cyanosis. Trace edema. NEUROLOGICAL: Awake and alert. No focal neurological deficits. Moves upper and lower extremities spontaneously. Normal speech. PSYCHIATRIC: Appropriate mood and affect; insight and judgment normal. A/P Problem List: (1) Hypocalcemia ICD Code: E83.51 Status: Acute (2) Hyperkalemia ICD Code: E87.5 Status: Acute (3) ESRD (end stage renal disease) ICD Code: N18.6 Status: Chronic Assessment and Plan 56-year-old female patient with a PMH of hypocalcemia s/p parathyroidectomy, ESRD on HD M/W/F, COPD, asthma, CHF (Echo 05/11/16 w/ EF 55-60%), sleep apnea does not wear Cpap or Bipap to sleep and GERD. Hypocalcemia - acute on chronic secondary to parathyroidectomy Labs reviewed: Protein corrected calcium was 5.5, previously 6.6 on 10/07/16. Improved to 6.0 today s/p IV calcium Continue to replace calcium IV and by mouth Check magnesium and phosphorus as well Appreciated nephrology assistance Continue home calcitriol and calcium carbonate hyperkalemia - potassium 6.5, secondary to missed HD Kayexalate 1, potassium now 5 plan for HD today Follow-up renal function panel in the morning Bronchitis - c/o cough and sinus congestion 1 week. Reviewed: Chest x-ray clear. No leukocytosis. Tmax 99.0. Incentive spirometry, nebs as needed Supportive care Lightheadedness/weakness - likely secondary to bronchitis and hypocalcemia as above Treatment as above PT eval Check orthostatics Continue home midodrine ESRD on HD Patient known to Dr. Villagran, consult placed DVT prophylaxis with heparin sub Q Discharge Planning Discussed with case management, patient meets inpatient criteria, will admit. Adin Wilder Dec 22, 2016 08:51
[2016-12-22] MEDS: GABAPENTIN 100 MG CAP PO SCH ×3 (09:12→17:34)
[2016-12-22] MEDS: HEPARIN SODIUM - SQ 10,000 UNITS/ML VIAL SQ SCH ×2 (09:13→22:58)
[2016-12-22] MEDS: PANTOPRAZOLE SOD 40 MG DELAYED RELEASE TAB PO SCH (09:15)
[2016-12-22] MEDS: ASPIRIN EC 81 MG TABEC PO SCH (09:16)
[2016-12-22] MEDS: SODIUM CHLORIDE 0.9% FLUSH 10 ML FLUSH IV FLUSH SCH ×2 (09:17→20:13)
--- NOTE | 2016-12-22 09:42 | PD.CONS ---
HPI Service Nephrology Consult Requested By Dr. Yuan Reason for Consult ESRD Primary Care Physician No Primary Care Physician History of Present Illness Patient is a 56-year-old female with history of total parathyroidectomy, develops hypocalcemia noncompliant with calcium supplements and had some cough and congestion she was here yesterday and day before yesterday and missed her dialysis on Sunday, she was treated then discharge she has a low calcium at that time as well today calcium is 5.7 and she was given calcium gluconate, she feels weak diet and she states that she had a cough and has dyspnea associated with it. Her potassium was 6.5 she was given Kayexalate and had some diarrhea, repeat potassium is 5. Her calcium has improved 6.1. Review of Systems Constitutional: COMPLAINS OF: Fatigue Respiratory: COMPLAINS OF: Cough, Shortness of breath Gastrointestinal: COMPLAINS OF: Diarrhea Psychiatric: COMPLAINS OF: Anxiety Past Family Social History Allergies: Coded Allergies: Levaquin (Unverified Allergy, Severe, 12/21/16) ANAPHYLAXIS *MDRO Multi-Drug Resistant Organism (Verified Adverse Reaction, Unknown, Cleared, 12/21/16) MRSA (wound) - 04/2011, (blood) - 10/2011 MRSA PCR Screens NEGATIVE - 02/17/15 & 02/19/15 CLEARED PER INFECTION CONTROL Past Medical History ESRD Anemia Asthma Morbid obesity Diabetes Hypocalcemia due to total parathyroidectomy History of vascular problems with loss of graft and fistula PermCath right groin Past Surgical History Partial hysterectomy Appendectomy AV graft and AV fistulas which all failed Permacath Parathyroidectomy Tenckhoff catheter placement and removal Reported Medications Reported Meds & Active Scripts Active Flexeril (Cyclobenzaprine HCl) 10 Mg Tab 10 Mg PO BID PRN Calcium Carbonate (Antacid) 500 Mg Chew 1,000 Mg CHEW Q4HR Midodrine 5 Mg Tab 10 Mg PO TID@,,17 Calcium Carbonate (Antacid) 500 Mg Chew 500 Mg CHEW 5 TIMES A DAY 30 Days Nystop Topical (Nystatin Topical) 100,000 Unit/Gm Powd 1 Applic TOPICAL Q8HR Hydroskin (Hydrocortisone (Topical)) 1 % Lot 1 Applic TOPICAL Q8HR Aspirin EC (Aspirin) 81 Mg Tabdr 81 Mg PO DAILY Reported Sucralfate 1 Gm Tab 1 Gm PO BIDAC on empty stomach Rocaltrol (Calcitriol) 0.25 Mcg Cap 0.25 Mcg PO DAILY Pantoprazole (Pantoprazole Sodium) 40 Mg Tab 40 Mg PO DAILY Levothyroxine (Levothyroxine Sodium) 50 Mcg Tab 50 Mcg PO DAILY Gabapentin 100 Mg Cap 200 Mg PO TID Bupropion HCl 75 Mg Tab 75 Mg PO DAILY Atorvastatin (Atorvastatin Calcium) 40 Mg Tab 40 Mg PO HS Active Ordered Medications Current Medications Medications (Trade) Dose Ordered Sig/Mary Grace Route Start Time Stop Time Status Last Admin (NS Flush) 2 ml UNSCH PRN IV FLUSH 12/21/16 22:00 (NS Flush) 2 ml BID IV FLUSH 12/22/16 09:00 12/22/16 09:17 (Tylenol) 650 mg Q4H PRN PO 12/21/16 22:00 (Zofran Inj) 4 mg Q6H PRN IVP 12/21/16 22:00 (Heparin Inj) 5,000 units Q12H SQ 12/21/16 22:00 12/22/16 09:13 (Narcan Inj) 0.4 mg UNSCH PRN IV 12/21/16 22:00 ([place]parks 5-325 Mg) 1 tab Q6H PRN PO 12/21/16 23:15 12/22/16 00:08 (Eucerin Cream) 1 applic Q6H PRN TOPICAL 12/22/16 00:00 12/22/16 05:31 (Ecotrin Ec) 81 mg DAILY PO 12/22/16 09:00 12/22/16 09:16 (Lipitor) 40 mg HS PO 12/22/16 21:00 (Wellbutrin) 75 mg DAILY PO 12/22/16 09:00 (Rocaltrol) 0.25 mcg DAILY PO 12/22/16 09:00 (Tums Chew) 1,000 mg Q4HR CHEW 12/22/16 04:00 12/22/16 09:16 (Flexeril) 10 mg BID PRN PO 12/22/16 01:45 (Neurontin) 200 mg TID PO 12/22/16 09:00 12/22/16 09:12 (Synthroid) 50 mcg DAILY@07 PO 12/22/16 07:00 12/22/16 05:31 (Proamatine) 10 mg TID@,12,17 PO 12/22/16 07:00 12/22/16 05:31 (Protonix) 40 mg DAILY PO 12/22/16 09:00 12/22/16 09:15 (Carafate) 1 gm BIDAC PO 12/22/16 07:00 12/22/16 05:31 Hydrocortisone 1 applic 1 applic Q8HR TOPICAL 12/22/16 06:00 12/22/16 05:31 (NS 1000 ml Inj) 1,000 ml @ 0 mls/hr Q0M PRN IV 12/22/16 08:02 Heparin Sodium (Porcine) 8000 units 8,000 units UNSCH PRN IVF 12/22/16 08:15 Sodium Chloride 1,000 ml @ 200 mls/hr Q5H PRN IV 12/22/16 08:02 (NS 1000 ml Inj) 1,000 ml @ 0 mls/hr Q0M PRN IV 12/22/16 08:02 (Mannitol Inj) 12.5 gm UNSCH PRN IV 12/22/16 08:15 (Albumin 25% Inj) 25 gm UNSCH PRN IV 12/22/16 08:15 (NS Flush) 5 ml UNSCH PRN IV FLUSH 12/22/16 08:15 (Heparin Inj) UNSCH PRN .XX 12/22/16 08:15 (Gentamicin (Dialysis) Inj) 20 mg UNSCH PRN IV 12/22/16 08:15 (Zofran Inj) 4 mg UNSCH PRN IV 12/22/16 08:15 (Tylenol) 650 mg UNSCH PRN PO 12/22/16 08:15 (Benadryl) 25 mg UNSCH PRN PO 12/22/16 08:15 (Nitrostat Sl) 0.4 mg UNSCH PRN SL 12/22/16 08:15 (Catapres) 0.1 mg UNSCH PRN PO 12/22/16 08:15 (Epogen Inj) 4,000 units UNSCH PRN IV 12/22/16 08:15 (Gelfoam 12 Mm/7 Mm Top) 1 foam UNSCH PRN TOP 12/22/16 08:15 (Oscal) 1,000 mg Q4HR PO 12/22/16 12:00 Family History Noncontributory Social History Denies smoking or alcohol use Physical Exam Vital Signs Vital Signs Date Time Temp Pulse Resp B/P Pulse Ox O2 Delivery O2 Flow Rate FiO2 12/22/16 08:20 97.9 87 18 132/76 100 12/22/16 07:10 95 12/22/16 04:46 99.0 88 20 106/60 95 12/22/16 01:12 20 12/22/16 00:08 98 21 12/21/16 23:55 97.0 88 20 139/98 96 12/21/16 21:00 89 16 130/63 95 Room Air 12/21/16 20:11 100 Room Air 12/21/16 20:04 97.8 92 16 112/63 98 Physical Exam GENERAL: Well-nourished, well-developed morbidly obese patient. SKIN: Warm and dry. HEAD: Normocephalic. EYES: No scleral icterus. No injection or drainage. NECK: Supple, trachea midline. No JVD or lymphadenopathy. CARDIOVASCULAR: Regular rate and rhythm without murmurs, gallops, or rubs. RESPIRATORY: Breath sounds wheezing at bases. GASTROINTESTINAL: Abdomen soft, non-tender, nondistended. EXTREMITIES: No cyanosis, mild edema. NEUROLOGICAL: Awake, alert, and oriented x 3. Non-focal. Laboratory Laboratory Tests Test 12/21/16 12/22/16 12/22/16 20:10 02:53 07:19 White Blood Count 10.5 9.4 Red Blood Count 4.22 4.08 Hemoglobin 12.6 11.8 Hematocrit 39.1 38.2 Mean Corpuscular Volume 92.7 93.8 Mean Corpuscular Hemoglobin 29.8 28.9 Mean Corpuscular Hemoglobin 32.2 30.8 Concent Red Cell Distribution Width 16.5 16.2 Platelet Count 307 282 Mean Platelet Volume 8.3 7.8 Neutrophils (%) (Auto) 77.0 74.1 Lymphocytes (%) (Auto) 7.9 9.7 Monocytes (%) (Auto) 7.8 8.2 Eosinophils (%) (Auto) 6.5 7.6 Basophils (%) (Auto) 0.8 0.4 Neutrophils # (Auto) 8.1 7.0 Lymphocytes # (Auto) 0.8 0.9 Monocytes # (Auto) 0.8 0.8 Eosinophils # (Auto) 0.7 0.7 Basophils # (Auto) 0.1 0.0 CBC Comment DIFF FINAL DIFF FINAL Differential Comment Prothrombin Time 11.3 Prothromb Time International 1.0 Ratio Activated Partial 33.1 Thromboplast Time Sodium Level 140 142 142 Potassium Level 6.5 5.1 5.0 Chloride Level 106 107 106 Carbon Dioxide Level 23.0 23.6 24.1 Anion Gap 11 11 12 Blood Urea Nitrogen 80 87 83 Creatinine 12.10 11.87 12.79 Estimat Glomerular Filtration 4 4 4 Rate Random Glucose 89 117 82 Calcium Level 5.7 5.7 6.1 Protein Corrected Calcium 5.5 6.0 Total Bilirubin 0.3 Aspartate Amino Transf 15 (AST/SGOT) Alanine Aminotransferase 18 (ALT/SGPT) Alkaline Phosphatase 67 Total Protein 8.4 7.9 7.4 Albumin 2.9 Result Diagram: 12/22/16 0719 12/22/16 0719 Imaging Last Impressions Chest X-Ray 12/21/16 0000 Signed Impressions: Service Date/Time: December 20:51 - CONCLUSION: No acute disease. Damián Chugn MD Assessment and Plan Problem List: (1) ESRD (end stage renal disease) Plan: Patient will need to hemodialysis treatment today and this has been ordered, will continue to monitor and replace calcium, she is instructed to take calcium and she states it is hard for her to swallow I have told her that they are chewable forms of calcium supplements. She will obtain them. (2) Hyperkalemia Plan: Resolved with medical treatment and dialysis will be done for today (3) Hypocalcemia Plan: Extra calcium given and continue to replace (4) Generalized weakness Plan: Due to severe hypocalcemia Frank Villagran MD Dec 22, 2016 09:42
[2016-12-22] MEDS: CALCITRIOL 0.25 MCG CAP PO SCH (10:34)
[2016-12-22] MEDS: buPROPion HCL 75 MG TAB PO SCH (10:34)
[2016-12-22 12:13] LABS: POTASSIUM 5.5 MEQ/L (3.5-5.1)
[2016-12-22 12:15] LABS: BICARBONATE 22.7 MEQ/L (21.0-32.0); MAGNESIUM 2.3 MG/DL (1.5-2.5)
[2016-12-22 12:38] LABS: CALCIUM-PROTEIN CORRECTED 6.4 MG/DL (8.5-10.1)
[2016-12-22] MEDS: CALCIUM CARBONATE 1.25 GM (CA 500 MG) TAB PO SCH ×3 (12:45→20:12)
[2016-12-22] MEDS: GENTAMICIN SULFATE (DIALYSIS USE ONLY) 20 MG/2 ML VIAL IV PRN (15:53)
[2016-12-22] MEDS: HEPARIN SODIUM - IV 10,000 UNITS/10 ML VIAL PRN (15:53)
[2016-12-22] MEDS: EPOETIN ALFA 10,000 UNITS/ML VIAL IV PRN (15:53)
[2016-12-22] MEDS: ATORVASTATIN 40 MG TAB PO SCH (20:12)
[2016-12-23] VITALS (8 sets, daily range): BP systolic 112–156; BP diastolic 60–97; PULSE 65–77; RESP 16–20; TEMP 96.6–98.4; O2SAT 93–96
[2016-12-23] MEDS: CALCIUM CARBONATE 1.25 GM (CA 500 MG) TAB PO SCH ×7 (00:29→23:33)
[2016-12-23] MEDS: CALCIUM CARBONATE 500 MG CHEWABLE TAB CHEW SCH ×12 (00:30→23:33)
[2016-12-23] MEDS: ACETAMINOPHEN/HYDROcodone 325 MG/5 MG TAB PO PRN ×2 (00:30→06:45)
[2016-12-23] MEDS: ONDANSETRON HCL 4 MG/2 ML VIAL IVP PRN ×2 (04:30→13:15)
[2016-12-23] MEDS: HYDROCORTISONE 1% CREAM 30 GM TOPICAL SCH ×3 (06:00→21:24)
[2016-12-23] MEDS: SUCRALFATE 1 GM TAB PO SCH ×2 (06:42→17:10)
[2016-12-23] MEDS: MIDODRINE 5 MG TAB PO SCH ×4 (06:51→18:37)
[2016-12-23] MEDS: LEVOTHYROXINE SODIUM 50 MCG TAB PO SCH (06:51)
[2016-12-23 08:58] LABS: BICARBONATE 29.6 MEQ/L (21.0-32.0); POTASSIUM 5.3 MEQ/L (3.5-5.1)
[2016-12-23] MEDS: buPROPion HCL 75 MG TAB PO SCH (09:38)
[2016-12-23] MEDS: ASPIRIN EC 81 MG TABEC PO SCH (09:38)
[2016-12-23] MEDS: PANTOPRAZOLE SOD 40 MG DELAYED RELEASE TAB PO SCH (09:38)
[2016-12-23] MEDS: CALCITRIOL 0.25 MCG CAP PO SCH (09:38)
[2016-12-23] MEDS: GABAPENTIN 100 MG CAP PO SCH ×3 (09:38→18:37)
[2016-12-23] MEDS: SODIUM CHLORIDE 0.9% FLUSH 10 ML FLUSH IV FLUSH SCH ×2 (09:39→21:25)
[2016-12-23] MEDS: HEPARIN SODIUM - SQ 10,000 UNITS/ML VIAL SQ SCH ×2 (09:39→21:23)
--- NOTE | 2016-12-23 12:28 | HHI.PR ---
Subjective Remarks Patiwnt states she feels quizy - nauseous Had an episode of vomiting this am denies cp/sob denies abdominal pain denies fevers or chills potassium still slightly elevated. Objective Vitals Vital Signs Date Time Temp Pulse Resp B/P Pulse Ox O2 Delivery O2 Flow Rate FiO2 12/23/16 08:08 95 21 12/23/16 08:00 96.8 65 16 156/90 93 12/23/16 04:30 98.4 68 20 130/60 95 12/23/16 00:36 98.3 75 20 124/76 95 12/22/16 20:05 78 12/22/16 20:00 98.0 75 22 134/75 95 12/22/16 17:00 97.6 79 16 126/84 94 I/O 12/22/16 12/22/16 12/22/16 12/23/16 12/23/16 12/23/16 07:00 15:00 23:00 07:00 15:00 23:00 Intake Total 650 ml 720 ml Output Total 2700 ml 0 ml Balance -2050 ml 720 ml Intake Oral 650 ml 720 ml Output Urine Total 0 ml Hemodialysis 2700 ml # Bowel Movements 1 0 0 Result Diagram: 12/22/16 0719 12/23/16 0655 Imaging Last Impressions Chest X-Ray 12/21/16 0000 Signed Impressions: Service Date/Time: December 20:51 - CONCLUSION: No acute disease. Damián Chung MD Objective Remarks GENERAL: Well-developed well-nourished. Morbidly obese. In no acute distress. SKIN: Warm and dry. No lesions noted. HEENT: Normocephalic. Pupils equal and round. Mucous membranes pink and moist. CARDIOVASCULAR: Regular rate and rhythm. No murmur appreciated. RESPIRATORY: No accessory muscle use. Clear to auscultation. Breath sounds diminished secondary to body habitus. GASTROINTESTINAL: Abdomen soft, non-tender, nondistended. Bowel sounds x4. MUSCULOSKELETAL: No obvious deformities. No clubbing or cyanosis. Trace edema. NEUROLOGICAL: Awake and alert. No focal neurological deficits. Moves upper and lower extremities spontaneously. Normal speech. PSYCHIATRIC: Appropriate mood and affect; insight and judgment normal. Medications and IVs Current Medications Medications (Trade) Dose Ordered Sig/Mary Grace Route Start Time Stop Time Status Last Admin (NS Flush) 2 ml UNSCH PRN IV FLUSH 12/21/16 22:00 (NS Flush) 2 ml BID IV FLUSH 12/22/16 09:00 12/23/16 09:39 (Tylenol) 650 mg Q4H PRN PO 12/21/16 22:00 (Zofran Inj) 4 mg Q6H PRN IVP 12/21/16 22:00 12/23/16 04:30 (Heparin Inj) 5,000 units Q12H SQ 12/21/16 22:00 12/23/16 09:39 (Narcan Inj) 0.4 mg UNSCH PRN IV 12/21/16 22:00 (Donalds 5-325 Mg) 1 tab Q6H PRN PO 12/21/16 23:15 12/23/16 06:45 (Eucerin Cream) 1 applic Q6H PRN TOPICAL 12/22/16 00:00 12/22/16 05:31 (Ecotrin Ec) 81 mg DAILY PO 12/22/16 09:00 12/23/16 09:38 (Lipitor) 40 mg HS PO 12/22/16 21:00 12/22/16 20:12 (Wellbutrin) 75 mg DAILY PO 12/22/16 09:00 12/23/16 09:38 (Rocaltrol) 0.25 mcg DAILY PO 12/22/16 09:00 12/23/16 09:38 (Tums Chew) 1,000 mg Q4HR CHEW 12/22/16 04:00 12/23/16 13:10 (Flexeril) 10 mg BID PRN PO 12/22/16 01:45 (Neurontin) 200 mg TID PO 12/22/16 09:00 12/23/16 13:10 (Synthroid) 50 mcg DAILY@07 PO 12/22/16 07:00 12/23/16 06:51 (Proamatine) 10 mg TID@,,17 PO 12/22/16 07:00 12/23/16 06:51 (Protonix) 40 mg DAILY PO 12/22/16 09:00 12/23/16 09:38 (Carafate) 1 gm BIDAC PO 12/22/16 07:00 12/23/16 06:42 Hydrocortisone 1 applic 1 applic Q8HR TOPICAL 12/22/16 06:00 12/22/16 23:02 (NS 1000 ml Inj) 1,000 ml @ 0 mls/hr Q0M PRN IV 12/22/16 08:02 Heparin Sodium (Porcine) 8000 units 8,000 units UNSCH PRN IVF 12/22/16 08:15 Sodium Chloride 1,000 ml @ 200 mls/hr Q5H PRN IV 12/22/16 08:02 (NS 1000 ml Inj) 1,000 ml @ 0 mls/hr Q0M PRN IV 12/22/16 08:02 (Mannitol Inj) 12.5 gm UNSCH PRN IV 12/22/16 08:15 (Albumin 25% Inj) 25 gm UNSCH PRN IV 12/22/16 08:15 (NS Flush) 5 ml UNSCH PRN IV FLUSH 12/22/16 08:15 (Heparin Inj) UNSCH PRN .XX 12/22/16 08:15 12/22/16 15:53 (Gentamicin (Dialysis) Inj) 20 mg UNSCH PRN IV 12/22/16 08:15 12/22/16 15:53 (Zofran Inj) 4 mg UNSCH PRN IV 12/22/16 08:15 (Tylenol) 650 mg UNSCH PRN PO 12/22/16 08:15 (Benadryl) 25 mg UNSCH PRN PO 12/22/16 08:15 (Nitrostat Sl) 0.4 mg UNSCH PRN SL 12/22/16 08:15 (Catapres) 0.1 mg UNSCH PRN PO 12/22/16 08:15 (Epogen Inj) 4,000 units UNSCH PRN IV 12/22/16 08:15 12/22/16 15:53 (Gelfoam 12 Mm/7 Mm Top) 1 foam UNSCH PRN TOP 12/22/16 08:15 (Oscal) 1,000 mg Q4HR PO 12/22/16 12:00 12/23/16 13:10 Urinary Catheter: No Vascular Central Line Catheter: No A/P Problem List: (1) Hypocalcemia ICD Code: E83.51 Status: Resolved (2) Hyperkalemia ICD Code: E87.5 Status: Acute (3) ESRD (end stage renal disease) ICD Code: N18.6 Status: Chronic (4) Morbid obesity ICD Code: E66.01 Status: Chronic Assessment and Plan 56-year-old female patient with a PMH of hypocalcemia s/p parathyroidectomy, ESRD on HD M/W/F, COPD, asthma, CHF (Echo 05/11/16 w/ EF 55-60%), sleep apnea does not wear Cpap or Bipap to sleep and GERD. Hypocalcemia - acute on chronic secondary to parathyroidectomy Labs reviewed: Protein corrected calcium was 5.5, previously 6.6 on 10/07/16. Improved to 6.0 today s/p IV calcium Appreciated nephrology assistance Protein corrected calcium is 8.9 Continue home calcitriol and calcium carbonate - I will increase Calcitriol to 0.5 mg PO q daily. hyperkalemia - potassium 6.5 on admission, secondary to missed HD Kayexalate 1, potassium now 5 sp HD yesterday - K still elevated at 5.2 Will repeat Kayexalate dose today (12/23/16) Follow-up renal function panel in the morning Bronchitis - c/o cough and sinus congestion 1 week. Reviewed: Chest x-ray clear. No leukocytosis. Tmax 99.0. Incentive spirometry, nebs as needed Supportive care Lightheadedness/weakness - likely secondary to bronchitis and hypocalcemia as above Treatment as above PT eval - no need for home PT Orthostatic blood pressure checked and negative for orthostasis. Continue home midodrine ESRD on HD Appreciated nephrology recommendations. Status post hemodialysis treatment. Morbid obesity Recommended weight loss Hyperphosphatemia Defer management to nephrology. DVT prophylaxis with heparin sub Q Discharge Planning Possible discharge in a.m. pending clinical improvement and resolution of hyperkalemia. Problem Qualifiers (1) Morbid obesity: Qualified Code: E66.01 - Morbid obesity due to excess calories Elieser Whatley MD Dec 23, 2016 12:28
[2016-12-23] MEDS ORDERED: SODIUM POLYSTYRENE SULFONATE SUSP 15 GM/60 ML CUP PO ONE (12:30)
--- NOTE | 2016-12-23 15:27 | HHI.NPPN ---
Subjective History of Present Illness 56 year old female with ESRD Hypocalcemia s/p Parathyroidectomy Review of Systems General Constitutional: Fatigue Objective Data Data 12/22/16 12/23/16 19:00 07:00 Intake Total 1370 ml Output Total 2700 ml 0 ml Balance -2700 ml 1370 ml Intake Oral 1370 ml Output Urine Total 0 ml Hemodialysis 2700 ml # Bowel Movements 0 Vital Signs Date Time Temp Pulse Resp B/P Pulse Ox O2 Delivery O2 Flow Rate FiO2 12/23/16 12:55 96.8 72 16 136/97 93 12/23/16 08:08 95 21 12/23/16 08:00 96.8 65 16 156/90 93 12/23/16 04:30 98.4 68 20 130/60 95 12/23/16 00:36 98.3 75 20 124/76 95 12/22/16 20:05 78 12/22/16 20:00 98.0 75 22 134/75 95 12/22/16 17:00 97.6 79 16 126/84 94 -: 12/22/16 0719 12/23/16 0655 Physical Exam General Appearance: Well Developed Neck Neck Exam: Neck Supple Pulmonary Resp Exam: Clear Bilaterally, Breath Sounds Equal Cardiology CV Exam: Regular, Normal Sinus Rhythm Gastrointestinal/Abdomen GI Exam: Soft, Non-Tender, Bowel Sounds Present Extremeties Extremities Exam: No Edema Assessment/Plan Problem List: (1) ESRD (end stage renal disease) Plan: Patient is doing better Calcium improved maintain on MWF schedule (2) Hyperkalemia Plan: Resolved with medical treatment and dialysis, k 5.3 today (3) Hypocalcemia Plan: continue to replace (4) Generalized weakness Plan: Due to severe hypocalcemia Frank Villagran MD Dec 23, 2016 15:27
[2016-12-23] MEDS: EUCERIN CREAM 120 GM JAR TOPICAL PRN (21:21)
[2016-12-23] MEDS: ATORVASTATIN 40 MG TAB PO SCH (21:24)
[2016-12-24] VITALS (8 sets, daily range): BP systolic 103–144; BP diastolic 57–74; PULSE 43–91; RESP 18–22; TEMP 96.1–97.6; O2SAT 94–96
[2016-12-24] MEDS: CALCIUM CARBONATE 1.25 GM (CA 500 MG) TAB PO SCH ×5 (04:11→20:35)
[2016-12-24] MEDS: CALCIUM CARBONATE 500 MG CHEWABLE TAB CHEW SCH ×9 (04:12→20:35)
[2016-12-24] MEDS: MIDODRINE 5 MG TAB PO SCH ×3 (06:14→17:39)
[2016-12-24] MEDS: LEVOTHYROXINE SODIUM 50 MCG TAB PO SCH (06:15)
[2016-12-24] MEDS: HYDROCORTISONE 1% CREAM 30 GM TOPICAL SCH ×2 (06:16→15:56)
[2016-12-24] MEDS: SUCRALFATE 1 GM TAB PO SCH ×2 (06:16→15:59)
[2016-12-24 09:52] LABS: BICARBONATE 25.5 MEQ/L (21.0-32.0); TOTAL BILIRUBIN ADULT 0.3 MG/DL (0.2-1.0)
[2016-12-24 09:53] LABS: POTASSIUM 6.1 MEQ/L (3.5-5.1)
[2016-12-24 09:55] LABS: CALCIUM-PROTEIN CORRECTED 7.3 MG/DL (8.5-10.1)
[2016-12-24] MEDS: buPROPion HCL 75 MG TAB PO SCH (10:23)
[2016-12-24] MEDS: ASPIRIN EC 81 MG TABEC PO SCH (10:23)
[2016-12-24] MEDS: PANTOPRAZOLE SOD 40 MG DELAYED RELEASE TAB PO SCH (10:23)
[2016-12-24] MEDS: GABAPENTIN 100 MG CAP PO SCH ×3 (10:23→17:38)
[2016-12-24] MEDS: CALCITRIOL 0.25 MCG CAP PO SCH (10:23)
[2016-12-24] MEDS: HEPARIN SODIUM - SQ 10,000 UNITS/ML VIAL SQ SCH (10:24)
[2016-12-24] MEDS: SODIUM CHLORIDE 0.9% FLUSH 10 ML FLUSH IV FLUSH SCH ×2 (10:25→20:36)
--- NOTE | 2016-12-24 10:39 | HHI.PR ---
Subjective Remarks denies cp/sob vital signs stable K elevated denies fevers/chills denies nausea denies dizziness Objective Vitals Vital Signs Date Time Temp Pulse Resp B/P Pulse Ox O2 Delivery O2 Flow Rate FiO2 12/24/16 04:00 97.4 78 18 111/61 95 12/24/16 00:00 97.6 77 18 103/63 95 12/23/16 20:55 77 12/23/16 20:00 97.2 77 19 112/61 96 12/23/16 16:00 96.6 74 16 139/86 93 12/23/16 12:55 96.8 72 16 136/97 93 I/O 12/23/16 12/23/16 12/23/16 12/24/16 12/24/16 12/24/16 07:00 15:00 23:00 07:00 15:00 23:00 Intake Total 720 ml 720 ml 720 ml 480 ml Output Total 0 ml Balance 720 ml 720 ml 720 ml 480 ml Intake Oral 720 ml 720 ml 720 ml 480 ml Output Urine Total 0 ml # Bowel Movements 0 1 Result Diagram: 12/22/16 0719 12/24/16 0836 Imaging Last Impressions Chest X-Ray 12/21/16 0000 Signed Impressions: Service Date/Time: December 20:51 - CONCLUSION: No acute disease. Damián Chung MD Objective Remarks GENERAL: Well-developed well-nourished. Morbidly obese. In no acute distress. SKIN: Warm and dry. No lesions noted. HEENT: Normocephalic. Pupils equal and round. Mucous membranes pink and moist. CARDIOVASCULAR: Regular rate and rhythm. No murmur appreciated. RESPIRATORY: No accessory muscle use. Clear to auscultation. Breath sounds diminished secondary to body habitus. GASTROINTESTINAL: Abdomen soft, non-tender, nondistended. Bowel sounds x4. MUSCULOSKELETAL: No obvious deformities. No clubbing or cyanosis. Trace edema. NEUROLOGICAL: Awake and alert. No focal neurological deficits. Moves upper and lower extremities spontaneously. Normal speech. PSYCHIATRIC: Appropriate mood and affect; insight and judgment normal. Medications and IVs Current Medications Medications (Trade) Dose Ordered Sig/Mary Grace Route Start Time Stop Time Status Last Admin (NS Flush) 2 ml UNSCH PRN IV FLUSH 12/21/16 22:00 (NS Flush) 2 ml BID IV FLUSH 12/22/16 09:00 12/24/16 10:25 (Tylenol) 650 mg Q4H PRN PO 12/21/16 22:00 (Zofran Inj) 4 mg Q6H PRN IVP 12/21/16 22:00 12/23/16 13:15 (Heparin Inj) 5,000 units Q12H SQ 12/21/16 22:00 12/24/16 10:24 (Narcan Inj) 0.4 mg UNSCH PRN IV 12/21/16 22:00 (Petty 5-325 Mg) 1 tab Q6H PRN PO 12/21/16 23:15 12/23/16 06:45 (Eucerin Cream) 1 applic Q6H PRN TOPICAL 12/22/16 00:00 12/23/16 21:21 (Ecotrin Ec) 81 mg DAILY PO 12/22/16 09:00 12/24/16 10:23 (Lipitor) 40 mg HS PO 12/22/16 21:00 12/23/16 21:24 (Wellbutrin) 75 mg DAILY PO 12/22/16 09:00 12/24/16 10:23 (Tums Chew) 1,000 mg Q4HR CHEW 12/22/16 04:00 12/24/16 10:24 (Flexeril) 10 mg BID PRN PO 12/22/16 01:45 (Neurontin) 200 mg TID PO 12/22/16 09:00 12/24/16 10:23 (Synthroid) 50 mcg DAILY@07 PO 12/22/16 07:00 12/24/16 06:15 (Proamatine) 10 mg TID@07,12,17 PO 12/22/16 07:00 12/24/16 06:14 (Protonix) 40 mg DAILY PO 12/22/16 09:00 12/24/16 10:23 (Carafate) 1 gm BIDAC PO 12/22/16 07:00 12/24/16 06:16 Hydrocortisone 1 applic 1 applic Q8HR TOPICAL 12/22/16 06:00 12/24/16 06:16 (NS 1000 ml Inj) 1,000 ml @ 0 mls/hr Q0M PRN IV 12/22/16 08:02 Heparin Sodium (Porcine) 8000 units 8,000 units UNSCH PRN IVF 12/22/16 08:15 Sodium Chloride 1,000 ml @ 200 mls/hr Q5H PRN IV 12/22/16 08:02 (NS 1000 ml Inj) 1,000 ml @ 0 mls/hr Q0M PRN IV 12/22/16 08:02 (Mannitol Inj) 12.5 gm UNSCH PRN IV 12/22/16 08:15 (Albumin 25% Inj) 25 gm UNSCH PRN IV 12/22/16 08:15 (NS Flush) 5 ml UNSCH PRN IV FLUSH 12/22/16 08:15 (Heparin Inj) UNSCH PRN .XX 12/22/16 08:15 12/22/16 15:53 (Gentamicin (Dialysis) Inj) 20 mg UNSCH PRN IV 12/22/16 08:15 12/22/16 15:53 (Zofran Inj) 4 mg UNSCH PRN IV 12/22/16 08:15 (Tylenol) 650 mg UNSCH PRN PO 12/22/16 08:15 (Benadryl) 25 mg UNSCH PRN PO 12/22/16 08:15 (Nitrostat Sl) 0.4 mg UNSCH PRN SL 12/22/16 08:15 (Catapres) 0.1 mg UNSCH PRN PO 12/22/16 08:15 (Epogen Inj) 4,000 units UNSCH PRN IV 12/22/16 08:15 12/22/16 15:53 (Gelfoam 12 Mm/7 Mm Top) 1 foam UNSCH PRN TOP 12/22/16 08:15 (Oscal) 1,000 mg Q4HR PO 12/22/16 12:00 12/24/16 10:24 (Rocaltrol) 0.5 mcg DAILY PO 12/24/16 09:00 12/24/16 10:23 Urinary Catheter: No Vascular Central Line Catheter: No A/P Problem List: (1) Hypocalcemia ICD Code: E83.51 Status: Resolved (2) Hyperkalemia ICD Code: E87.5 Status: Acute (3) ESRD (end stage renal disease) ICD Code: N18.6 Status: Chronic (4) Morbid obesity ICD Code: E66.01 Status: Chronic Assessment and Plan 56-year-old female patient with a PMH of hypocalcemia s/p parathyroidectomy, ESRD on HD M/W/F, COPD, asthma, CHF (Echo 05/11/16 w/ EF 55-60%), sleep apnea does not wear Cpap or Bipap to sleep and GERD. Hypocalcemia - acute on chronic secondary to parathyroidectomy Labs reviewed: Protein corrected calcium was 5.5, previously 6.6 on 10/07/16. Improved to 6.0 today s/p IV calcium Appreciated nephrology assistance Protein corrected calcium is 7.3 Continue home calcitriol and calcium carbonate - Calcitriol dose increased to 0.5 po daily. 12/24 Replete low calcium w Iv Calcium chloride. hyperkalemia - potassium 6.5 on admission, secondary to missed HD Kayexalate 1, potassium now 5 sp HD 12/22 - K still elevated at 5.2, sp Kayexalate. K elevated today 12/24 at 6.1 - will give D50, IV insulin and Follow-up renal function panel in the morning Bronchitis - c/o cough and sinus congestion 1 week. Reviewed: Chest x-ray clear. No leukocytosis. Tmax 99.0. Incentive spirometry, nebs as needed Supportive care Lightheadedness/weakness - likely secondary to bronchitis and hypocalcemia as above Treatment as above PT eval - no need for home PT Orthostatic blood pressure checked and negative for orthostasis. Continue home midodrine ESRD on HD Appreciated nephrology recommendations. Status post hemodialysis treatment. Morbid obesity Recommended weight loss Hyperphosphatemia Defer management to nephrology. DVT prophylaxis with heparin sub Q Discharge Planning Continue to monitor in the medical floor - patient still hyperkalemic. Problem Qualifiers (1) Morbid obesity: Qualified Code: E66.01 - Morbid obesity due to excess calories Elieser Whatley MD Dec 24, 2016 10:39
[2016-12-24] MEDS ORDERED: SODIUM POLYSTYRENE SULFONATE SUSP 15 GM/60 ML CUP PO ONE (10:45)
[2016-12-24] MEDS ORDERED: CALCIUM CHLORIDE INJ 2 GM in SODIUM CHLORIDE 0.9% INJ 100 ML IV ONE (10:45)
[2016-12-24] MEDS ORDERED: DEXTROSE 50% IN WATER 50 ML VIAL(D50) IV PUSH ONE (10:45)
[2016-12-24] MEDS ORDERED: INSULIN HUMAN REGULAR 1,000 UNITS/10 ML VIAL IV PUSH ONE (10:45)
--- NOTE | 2016-12-24 14:40 | HHI.NPPN ---
Subjective History of Present Illness 56 year old female with ESRD Hypocalcemia s/p Parathyroidectomy Review of Systems General Constitutional: Fatigue Objective Data Data 12/23/16 12/24/16 19:00 07:00 Intake Total 720 ml 1200 ml Balance 720 ml 1200 ml Intake Oral 720 ml 1200 ml # Bowel Movements 1 Vital Signs Date Time Temp Pulse Resp B/P Pulse Ox O2 Delivery O2 Flow Rate FiO2 12/24/16 11:50 96.3 72 20 133/74 95 12/24/16 07:50 97.3 68 20 115/57 96 12/24/16 04:00 97.4 78 18 111/61 95 12/24/16 00:00 97.6 77 18 103/63 95 12/23/16 20:55 77 12/23/16 20:00 97.2 77 19 112/61 96 12/23/16 16:00 96.6 74 16 139/86 93 -: 12/22/16 0719 12/24/16 0836 Physical Exam General Appearance: Well Developed Neck Neck Exam: Neck Supple Pulmonary Resp Exam: Clear Bilaterally, Breath Sounds Equal Cardiology CV Exam: Regular, Normal Sinus Rhythm Gastrointestinal/Abdomen GI Exam: Soft, Non-Tender, Bowel Sounds Present Extremeties Extremities Exam: No Edema Assessment/Plan Problem List: (1) ESRD (end stage renal disease) Plan: Patient is doing better Calcium 7.3 Po4 higher take PhosLo K higher maintain on MWF schedule (2) Hyperkalemia Plan: Resolved with medical treatment and dialysis, k 6.1 today treated HD in am (3) Hypocalcemia Plan: continue to replace (4) Generalized weakness Plan: Due to severe hypocalcemia Frank Villagran MD Dec 24, 2016 14:40
[2016-12-24 16:04] LABS: BICARBONATE 25.1 MEQ/L (21.0-32.0); POTASSIUM 5.3 MEQ/L (3.5-5.1)
[2016-12-24] MEDS: CALCIUM ACETATE 667 MG CAP PO SCH (17:39)
[2016-12-24] MEDS: ATORVASTATIN 40 MG TAB PO SCH (20:36)
[2016-12-25] VITALS (8 sets, daily range): BP systolic 111–151; BP diastolic 56–77; PULSE 66–80; RESP 18–23; TEMP 96.2–97.6; O2SAT 93–96
[2016-12-25] MEDS: CALCIUM CARBONATE 500 MG CHEWABLE TAB CHEW SCH ×14 (00:14→23:03)
[2016-12-25] MEDS: HYDROCORTISONE 1% CREAM 30 GM TOPICAL SCH ×4 (00:15→21:05)
[2016-12-25] MEDS: CALCIUM CARBONATE 1.25 GM (CA 500 MG) TAB PO SCH ×7 (00:15→23:01)
[2016-12-25] MEDS: HEPARIN SODIUM - SQ 10,000 UNITS/ML VIAL SQ SCH ×3 (00:16→21:04)
[2016-12-25] MEDS: MIDODRINE 5 MG TAB PO SCH ×3 (04:59→16:42)
[2016-12-25] MEDS: SUCRALFATE 1 GM TAB PO SCH ×2 (04:59→16:42)
[2016-12-25] MEDS: LEVOTHYROXINE SODIUM 50 MCG TAB PO SCH (05:00)
[2016-12-25 06:41] LABS: AUTOMATED NEUTROPHIL # 5.4 TH/MM3 (1.8-7.7); BASOPHIL % 0.2 % (0.0-2.0); EOSINOPHIL # 0.4 TH/MM3 (0-0.4); EOSINOPHIL % 5.3 % (0.0-4.0); HEMATOCRIT 36.3 % (35.0-46.0); HEMO FLAGS DIFF FINAL; LYMPHOCYTE # 0.8 TH/MM3 (1.0-4.8); MEAN CELL VOLUME 92.5 FL (80.0-100.0); MEAN CORPUSCULAR HEMOGLOBIN 29.7 PG (27.0-34.0); MEAN CORPUSCULAR HGB CONC 32.1 % (32.0-36.0); MONO % 9.6 % (0.0-8.0); NEUT % 73.9 % (16.0-70.0); PLATELET COUNT 279 TH/MM3 (150-450); RED BLOOD COUNT 3.92 MIL/MM3 (4.00-5.30); RED CELL DISTRIBUTION WIDTH 16.1 % (11.6-17.2); WHITE BLOOD COUNT 7.3 TH/MM3 (4.0-11.0)
[2016-12-25 06:56] LABS: ALT (GPT) 16 U/L (10-53); ANION GAP 11 MEQ/L (5-15); AST (GOT) 13 U/L (15-37); BICARBONATE 26.6 MEQ/L (21.0-32.0); BLOOD UREA NITROGEN 78 MG/DL (7-18); CHLORIDE 103 MEQ/L (98-107); GLOMERULAR FILTRATION RATE 4 ML/MIN (>89); POTASSIUM 5.5 MEQ/L (3.5-5.1); SODIUM (NA) 141 MEQ/L (136-145)
[2016-12-25 06:58] LABS: ALKALINE PHOSPHATASE 73 U/L (45-117); TOTAL BILIRUBIN ADULT 0.2 MG/DL (0.2-1.0)
[2016-12-25] MEDS: CALCIUM ACETATE 667 MG CAP PO SCH ×3 (09:00→18:11)
[2016-12-25] MEDS: GABAPENTIN 100 MG CAP PO SCH ×3 (09:00→18:11)
[2016-12-25] MEDS: EPOETIN ALFA 10,000 UNITS/ML VIAL IV PRN (09:24)
[2016-12-25] MEDS: ACETAMINOPHEN/HYDROcodone 325 MG/5 MG TAB PO PRN ×2 (09:43→16:42)
--- NOTE | 2016-12-25 10:21 | HHI.PR ---
Subjective Remarks Patient sen during dialysis c/o headache denies cp/sob denies nausea stable vital signs Objective Vitals Vital Signs Date Time Temp Pulse Resp B/P Pulse Ox O2 Delivery O2 Flow Rate FiO2 12/25/16 08:00 96.5 76 20 149/76 96 12/25/16 04:00 96.6 76 21 125/63 96 12/25/16 00:00 97.2 80 23 148/72 95 12/24/16 20:08 43 12/24/16 20:00 96.1 91 22 121/57 95 12/24/16 15:50 96.4 73 20 144/71 94 12/24/16 11:50 96.3 72 20 133/74 95 I/O 12/24/16 12/24/16 12/24/16 12/25/16 12/25/16 12/25/16 07:00 15:00 23:00 07:00 15:00 23:00 Intake Total 480 ml 822 ml 720 ml 480 ml Balance 480 ml 822 ml 720 ml 480 ml Intake Oral 480 ml 702 ml 720 ml 480 ml IV Total 120 ml # Voids 0 # Bowel Movements 1 1 1 Result Diagram: 12/25/16 0552 12/25/16 0552 Imaging Last Impressions Chest X-Ray 12/21/16 0000 Signed Impressions: Service Date/Time: December 20:51 - CONCLUSION: No acute disease. Damián Chung MD Objective Remarks GENERAL: Well-developed well-nourished. Morbidly obese. In no acute distress. SKIN: Warm and dry. No lesions noted. HEENT: Normocephalic. Pupils equal and round. Mucous membranes pink and moist. Periorbital edema. CARDIOVASCULAR: Regular rate and rhythm. No murmur appreciated. RESPIRATORY: No accessory muscle use. Clear to auscultation. Breath sounds diminished secondary to body habitus. GASTROINTESTINAL: Abdomen soft, non-tender, nondistended. Bowel sounds x4. MUSCULOSKELETAL: No obvious deformities. No clubbing or cyanosis. Trace edema. NEUROLOGICAL: Awake and alert. No focal neurological deficits. Moves upper and lower extremities spontaneously. Normal speech. PSYCHIATRIC: Appropriate mood and affect; insight and judgment normal. Procedures none Medications and IVs Current Medications Medications (Trade) Dose Ordered Sig/Mary Grace Route Start Time Stop Time Status Last Admin (NS Flush) 2 ml UNSCH PRN IV FLUSH 12/21/16 22:00 (NS Flush) 2 ml BID IV FLUSH 12/22/16 09:00 12/24/16 20:36 (Tylenol) 650 mg Q4H PRN PO 12/21/16 22:00 (Zofran Inj) 4 mg Q6H PRN IVP 12/21/16 22:00 12/23/16 13:15 (Heparin Inj) 5,000 units Q12H SQ 12/21/16 22:00 12/25/16 00:16 (Narcan Inj) 0.4 mg UNSCH PRN IV 12/21/16 22:00 (Aiken 5-325 Mg) 1 tab Q6H PRN PO 12/21/16 23:15 12/25/16 09:43 (Eucerin Cream) 1 applic Q6H PRN TOPICAL 12/22/16 00:00 12/23/16 21:21 (Ecotrin Ec) 81 mg DAILY PO 12/22/16 09:00 12/24/16 10:23 (Lipitor) 40 mg HS PO 12/22/16 21:00 12/24/16 20:36 (Wellbutrin) 75 mg DAILY PO 12/22/16 09:00 12/24/16 10:23 (Tums Chew) 1,000 mg Q4HR CHEW 12/22/16 04:00 12/25/16 04:58 (Flexeril) 10 mg BID PRN PO 12/22/16 01:45 (Neurontin) 200 mg TID PO 12/22/16 09:00 12/24/16 17:38 (Synthroid) 50 mcg DAILY@07 PO 12/22/16 07:00 12/25/16 05:00 (Proamatine) 10 mg TID@07,12,17 PO 12/22/16 07:00 12/25/16 04:59 (Protonix) 40 mg DAILY PO 12/22/16 09:00 12/24/16 10:23 (Carafate) 1 gm BIDAC PO 12/22/16 07:00 12/25/16 04:59 Hydrocortisone 1 applic 1 applic Q8HR TOPICAL 12/22/16 06:00 12/25/16 05:07 (NS 1000 ml Inj) 1,000 ml @ 0 mls/hr Q0M PRN IV 12/22/16 08:02 Heparin Sodium (Porcine) 8000 units 8,000 units UNSCH PRN IVF 12/22/16 08:15 Sodium Chloride 1,000 ml @ 200 mls/hr Q5H PRN IV 12/22/16 08:02 (NS 1000 ml Inj) 1,000 ml @ 0 mls/hr Q0M PRN IV 12/22/16 08:02 (Mannitol Inj) 12.5 gm UNSCH PRN IV 12/22/16 08:15 (Albumin 25% Inj) 25 gm UNSCH PRN IV 12/22/16 08:15 (NS Flush) 5 ml UNSCH PRN IV FLUSH 12/22/16 08:15 (Heparin Inj) UNSCH PRN .XX 12/22/16 08:15 12/22/16 15:53 (Gentamicin (Dialysis) Inj) 20 mg UNSCH PRN IV 12/22/16 08:15 12/22/16 15:53 (Zofran Inj) 4 mg UNSCH PRN IV 12/22/16 08:15 (Tylenol) 650 mg UNSCH PRN PO 12/22/16 08:15 (Benadryl) 25 mg UNSCH PRN PO 12/22/16 08:15 (Nitrostat Sl) 0.4 mg UNSCH PRN SL 12/22/16 08:15 (Catapres) 0.1 mg UNSCH PRN PO 12/22/16 08:15 (Epogen Inj) 4,000 units UNSCH PRN IV 12/22/16 08:15 12/25/16 09:24 (Gelfoam 12 Mm/7 Mm Top) 1 foam UNSCH PRN TOP 12/22/16 08:15 (Oscal) 1,000 mg Q4HR PO 12/22/16 12:00 12/25/16 04:58 (Rocaltrol) 0.5 mcg DAILY PO 12/24/16 09:00 12/24/16 10:23 (Phoslo) 2,001 mg TID PO 12/24/16 18:00 12/24/16 17:39 Urinary Catheter: No Vascular Central Line Catheter: No A/P Problem List: (1) Hypocalcemia ICD Code: E83.51 Status: Resolved (2) Hyperkalemia ICD Code: E87.5 Status: Acute (3) ESRD (end stage renal disease) ICD Code: N18.6 Status: Chronic (4) Morbid obesity ICD Code: E66.01 Status: Chronic Assessment and Plan 56-year-old female patient with a PMH of hypocalcemia s/p parathyroidectomy, ESRD on HD M/W/F, COPD, asthma, CHF (Echo 05/11/16 w/ EF 55-60%), sleep apnea does not wear Cpap or Bipap to sleep and GERD. Hypocalcemia - acute on chronic secondary to parathyroidectomy Labs reviewed: Protein corrected calcium was 5.5, previously 6.6 on 10/07/16. Improved to 6.0 today s/p IV calcium Appreciated nephrology assistance Sp repletion with Iv Calcium chloride 12/25 Calcium now within normal range. Continue to monitor calcium levels. hyperkalemia - potassium 6.5 on admission, secondary to missed HD Kayexalate 1, potassium now 5 sp HD 12/22 and sp Kayexalate on 12/24 and 12/25. Patient getting hemodialysis - Continue to monitor BMP. Bronchitis - c/o cough and sinus congestion 1 week. Reviewed: Chest x-ray clear. No leukocytosis. Tmax 99.0. Incentive spirometry, nebs as needed Supportive care resolved Lightheadedness/weakness - likely secondary to bronchitis and hypocalcemia as above Treatment as above PT eval - no need for home PT Orthostatic blood pressure checked and negative for orthostasis. Continue home midodrine ESRD on HD Appreciated nephrology recommendations. Dialysis on M,W, F schedule Morbid obesity Recommended weight loss Hyperphosphatemia Continue phoslo. Continue to monitor phosphorus. DVT prophylaxis with heparin sub Q Discharge Planning Dc either later today vs in am pending nephrology clearance. Problem Qualifiers (1) Morbid obesity: Qualified Code: E66.01 - Morbid obesity due to excess calories Elieser Whatley MD Dec 25, 2016 10:21
--- NOTE | 2016-12-25 10:33 | HHI.NPPN ---
Subjective History of Present Illness 56 year old female with ESRD Hypocalcemia s/p Parathyroidectomy Review of Systems General Constitutional: Fatigue Objective Data Data 12/24/16 12/25/16 19:00 07:00 Intake Total 822 ml 1200 ml Balance 822 ml 1200 ml Intake Oral 702 ml 1200 ml IV Total 120 ml # Voids 0 # Bowel Movements 1 1 Vital Signs Date Time Temp Pulse Resp B/P Pulse Ox O2 Delivery O2 Flow Rate FiO2 12/25/16 08:00 96.5 76 20 149/76 96 12/25/16 04:00 96.6 76 21 125/63 96 12/25/16 00:00 97.2 80 23 148/72 95 12/24/16 20:08 43 12/24/16 20:00 96.1 91 22 121/57 95 12/24/16 15:50 96.4 73 20 144/71 94 12/24/16 11:50 96.3 72 20 133/74 95 -: 12/25/16 0552 12/25/16 0552 Physical Exam General Appearance: Well Developed Neck Neck Exam: Neck Supple Pulmonary Resp Exam: Clear Bilaterally, Breath Sounds Equal Cardiology CV Exam: Regular, Normal Sinus Rhythm Gastrointestinal/Abdomen GI Exam: Soft, Non-Tender, Bowel Sounds Present Extremeties Extremities Exam: No Edema Assessment/Plan Problem List: (1) ESRD (end stage renal disease) Plan: Patient is doing better Calcium 8 Po4 higher takes PhosLo K higher maintain on MWF schedule seen during dialysis UF 4 L, since she has issues with potassium I switched her to 1 K Bath discharge planning Fu at dialysis center (2) Hyperkalemia Plan: Resolved with medical treatment and dialysis, k 6.1 today treated HD in am (3) Hypocalcemia Plan: continue to replace (4) Generalized weakness Plan: Due to severe hypocalcemia Frank Villagran MD Dec 25, 2016 10:33
[2016-12-25] MEDS: HEPARIN SODIUM - IV 10,000 UNITS/10 ML VIAL PRN (12:54)
[2016-12-25] MEDS: GENTAMICIN SULFATE (DIALYSIS USE ONLY) 20 MG/2 ML VIAL IV PRN (12:54)
[2016-12-25] MEDS: ASPIRIN EC 81 MG TABEC PO SCH (13:04)
[2016-12-25] MEDS: CALCITRIOL 0.25 MCG CAP PO SCH (13:06)
[2016-12-25] MEDS: PANTOPRAZOLE SOD 40 MG DELAYED RELEASE TAB PO SCH (13:06)
[2016-12-25] MEDS: SODIUM CHLORIDE 0.9% FLUSH 10 ML FLUSH IV FLUSH SCH ×2 (13:07→20:56)
[2016-12-25] MEDS: buPROPion HCL 75 MG TAB PO SCH (13:08)
[2016-12-25 15:40] LABS: BICARBONATE 29.6 MEQ/L (21.0-32.0); POTASSIUM 4.3 MEQ/L (3.5-5.1)
[2016-12-25] MEDS: ONDANSETRON HCL 4 MG/2 ML VIAL IVP PRN (18:34)
[2016-12-25] MEDS: ATORVASTATIN 40 MG TAB PO SCH (20:54)
[2016-12-26] VITALS: BP 133/73; PULSE 70; RESP 16; TEMP 96.3; O2SAT 97
[2016-12-26] MEDS: CALCIUM CARBONATE 1.25 GM (CA 500 MG) TAB PO SCH ×3 (03:07→12:45)
[2016-12-26] MEDS: CALCIUM CARBONATE 500 MG CHEWABLE TAB CHEW SCH ×5 (03:07→12:45)
[2016-12-26 04:00] VITALS: BP 137/83; PULSE 73; RESP 18; TEMP 97.7; O2SAT 97
[2016-12-26] MEDS: HYDROCORTISONE 1% CREAM 30 GM TOPICAL SCH (06:00)
[2016-12-26] MEDS: SUCRALFATE 1 GM TAB PO SCH (06:18)
[2016-12-26] MEDS: LEVOTHYROXINE SODIUM 50 MCG TAB PO SCH (06:18)
[2016-12-26] MEDS: MIDODRINE 5 MG TAB PO SCH ×2 (06:18→12:45)
[2016-12-26 08:00] VITALS: BP 162/76; PULSE 74; RESP 18; TEMP 97.2; O2SAT 97
[2016-12-26] MEDS: ONDANSETRON HCL 4 MG/2 ML VIAL IVP PRN (09:52)
[2016-12-26] MEDS: CALCIUM ACETATE 667 MG CAP PO SCH ×2 (09:52→12:45)
[2016-12-26] MEDS: GABAPENTIN 100 MG CAP PO SCH ×2 (09:52→12:45)
[2016-12-26] MEDS: PANTOPRAZOLE SOD 40 MG DELAYED RELEASE TAB PO SCH (09:52)
[2016-12-26] MEDS: buPROPion HCL 75 MG TAB PO SCH (09:52)
[2016-12-26] MEDS: ASPIRIN EC 81 MG TABEC PO SCH (09:53)
[2016-12-26] MEDS: CALCITRIOL 0.25 MCG CAP PO SCH (09:53)
[2016-12-26] MEDS: HEPARIN SODIUM - SQ 10,000 UNITS/ML VIAL SQ SCH (09:53)
[2016-12-26] MEDS: SODIUM CHLORIDE 0.9% FLUSH 10 ML FLUSH IV FLUSH SCH (09:54)
--- NOTE | 2016-12-26 10:15 | HHI.NPPN ---
Subjective History of Present Illness 56 year old female with ESRD Hypocalcemia s/p Parathyroidectomy Review of Systems General Constitutional: Fatigue Objective Data Data 12/25/16 12/26/16 19:00 07:00 Intake Total 480 ml 480 ml Output Total 4000 ml Balance -3520 ml 480 ml Intake Oral 480 ml 480 ml Hemodialysis 4000 ml Vital Signs Date Time Temp Pulse Resp B/P Pulse Ox O2 Delivery O2 Flow Rate FiO2 12/26/16 08:00 97.2 74 18 162/76 97 12/26/16 04:00 97.7 73 18 137/83 97 12/26/16 00:00 96.3 70 16 133/73 97 12/25/16 20:45 66 12/25/16 20:00 96.2 67 18 151/72 95 12/25/16 16:00 96.7 78 22 124/77 93 12/25/16 12:25 97.6 80 20 111/56 94 -: 12/25/16 0552 12/25/16 1505 Physical Exam General Appearance: Well Developed Neck Neck Exam: Neck Supple Pulmonary Resp Exam: Clear Bilaterally, Breath Sounds Equal Cardiology CV Exam: Regular, Normal Sinus Rhythm Gastrointestinal/Abdomen GI Exam: Soft, Non-Tender, Bowel Sounds Present Extremeties Extremities Exam: No Edema Assessment/Plan Problem List: (1) ESRD (end stage renal disease) Plan: Patient is doing better Calcium 7.7 stable for dc discharge planning Fu at dialysis center (2) Hyperkalemia Plan: Resolved with medical treatment and dialysis, k 6.1 today treated HD in am (3) Hypocalcemia Plan: continue to replace (4) Generalized weakness Plan: Due to severe hypocalcemia Frank Villagran MD Dec 26, 2016 10:15
--- NOTE | 2016-12-26 10:23 | HHI.PR ---
Objective Vitals Vital Signs Date Time Temp Pulse Resp B/P Pulse Ox O2 Delivery O2 Flow Rate FiO2 12/26/16 08:00 97.2 74 18 162/76 97 12/26/16 04:00 97.7 73 18 137/83 97 12/26/16 00:00 96.3 70 16 133/73 97 12/25/16 20:45 66 12/25/16 20:00 96.2 67 18 151/72 95 12/25/16 16:00 96.7 78 22 124/77 93 12/25/16 12:25 97.6 80 20 111/56 94 I/O 12/25/16 12/25/16 12/25/16 12/26/16 12/26/16 12/26/16 07:00 15:00 23:00 07:00 15:00 23:00 Intake Total 480 ml 480 ml 240 ml 240 ml Output Total 4000 ml Balance 480 ml -3520 ml 240 ml 240 ml Intake Oral 480 ml 480 ml 240 ml 240 ml Hemodialysis 4000 ml # Bowel Movements 1 Result Diagram: 12/25/16 0552 12/25/16 1505 Objective Remarks GENERAL: Well-developed well-nourished. Morbidly obese. In no acute distress. SKIN: Warm and dry. No lesions noted. HEENT: Normocephalic. Pupils equal and round. Mucous membranes pink and moist. Periorbital edema. CARDIOVASCULAR: Regular rate and rhythm. No murmur appreciated. RESPIRATORY: No accessory muscle use. Clear to auscultation. Breath sounds diminished secondary to body habitus. GASTROINTESTINAL: Abdomen soft, non-tender, nondistended. Bowel sounds x4. MUSCULOSKELETAL: No obvious deformities. No clubbing or cyanosis. Trace edema. NEUROLOGICAL: Awake and alert. No focal neurological deficits. Moves upper and lower extremities spontaneously. Normal speech. PSYCHIATRIC: Appropriate mood and affect; insight and judgment normal. Procedures none A/P Problem List: (1) Hypocalcemia ICD Code: E83.51 Status: Resolved (2) Hyperkalemia ICD Code: E87.5 Status: Acute (3) ESRD (end stage renal disease) ICD Code: N18.6 Status: Chronic (4) Morbid obesity ICD Code: E66.01 Status: Chronic Assessment and Plan 56-year-old female patient with a PMH of hypocalcemia s/p parathyroidectomy, ESRD on HD M/W/F, COPD, asthma, CHF (Echo 05/11/16 w/ EF 55-60%), sleep apnea does not wear Cpap or Bipap to sleep and GERD. Hypocalcemia - acute on chronic secondary to parathyroidectomy Labs reviewed: Protein corrected calcium was 5.5, previously 6.6 on 10/07/16. Improved to 6.0 today s/p IV calcium Appreciated nephrology assistance Sp repletion with Iv Calcium chloride 12/25 Calcium now within normal range. Continue to monitor calcium levels. hyperkalemia - potassium 6.5 on admission, secondary to missed HD Kayexalate 1, potassium now 5 sp HD 12/22 and sp Kayexalate on 12/24 and 12/25. Patient getting hemodialysis - Continue to monitor BMP. Bronchitis - c/o cough and sinus congestion 1 week. Reviewed: Chest x-ray clear. No leukocytosis. Tmax 99.0. Incentive spirometry, nebs as needed Supportive care resolved Lightheadedness/weakness - likely secondary to bronchitis and hypocalcemia as above Treatment as above PT eval - no need for home PT Orthostatic blood pressure checked and negative for orthostasis. Continue home midodrine ESRD on HD Appreciated nephrology recommendations. Dialysis on M,W, F schedule Morbid obesity Recommended weight loss Hyperphosphatemia Continue phoslo. Continue to monitor phosphorus. DVT prophylaxis with heparin sub Q Problem Qualifiers (1) Morbid obesity: Qualified Code: E66.01 - Morbid obesity due to excess calories Riki Knight MD Dec 26, 2016 10:23
[2016-12-26] MEDS ORDERED: CALCIUM GLUCONATE INJ 1 GM in DEXTROSE 5% IN WATER 100ML INJ 100 ML IV ONE ×2 (10:30)
[2016-12-26] MEDS ORDERED: ROLLER WALKER1 MI1 ×3 (10:48→16:14)
[2016-12-26] MEDS ORDERED: CALC.25 PO (10:51)
--- NOTE | 2016-12-26 10:51 | HHI.DS ---
Discharge Summary Admission Date Dec 22, 2016 at 11:16 Discharge Date: Dec 26, 2016 Admitting Diagnosis hypocalcemia, hyperkalemia, ESRD, generalized weakness (1) Hypocalcemia ICD Code: E83.51 Diagnosis: Principal (2) Hyperkalemia ICD Code: E87.5 Diagnosis: Secondary (3) ESRD (end stage renal disease) ICD Code: N18.6 Diagnosis: Secondary (4) Morbid obesity ICD Code: E66.01 Diagnosis: Secondary Procedures none Brief History - From Admission This is a 56-year-old female patient with a PMH of hypocalcemia s/p parathyroidectomy, ESRD on HD M/W/F, COPD, asthma, CHF (Echo 05/11/16 w/ EF 55-60% ), sleep apnea does not wear Cpap or Bipap to sleep and GERD. This past Sunday at HD patient reports was told her calcium level was low then Sunday patient began to have generalized weakness and went to ER yesterday 08/26 for patient was found to have a calcium level of 6.3. Patient was discharged and instructed to take calcium gummies to supplement and have calcium added at time of HD. Patient then returned today with c/o continued generalize weakness, dizziness and SOB as she missed her HD yesterday because she was in the ER. ER provider discussed with patient certified physical therapist assistant Dr. Villagran. Patient denies N/V/D/C, fevers, chills, palpitations or chest pain. CBC/BMP: 12/25/16 0552 12/25/16 1505 Significant Findings Laboratory Tests Test 12/24/16 12/24/16 12/25/16 12/25/16 08:36 15:00 05:52 15:05 Potassium Level 6.1 MEQ/L 5.3 MEQ/L 5.5 MEQ/L (3.5-5.1) (3.5-5.1) (3.5-5.1) Blood Urea Nitrogen 72 MG/DL (7-18) 76 MG/DL (7-18) 78 MG/DL (7-18) 49 MG/DL (7- 18) Creatinine 10.99 MG/DL 11.19 MG/DL 11.28 MG/DL 8.19 MG/DL (0.50-1.00) (0.50-1.00) (0.50-1.00) (0.50-1.00) Estimat Glomerular Filtration 4 ML/MIN (>89) 4 ML/MIN (>89) 4 ML/MIN (>89) 6 ML/ MIN (>89) Rate Calcium Level 7.4 MG/DL 7.6 MG/DL 8.0 MG/DL 7.7 MG/DL (8.5-10.1) (8.5-10.1) (8.5-10.1) (8.5-10.1) Protein Corrected Calcium 7.3 MG/DL (8.5-10.1) Phosphorus Level 6.8 MG/DL (2.5-4.9) Albumin 2.5 GM/DL 2.6 GM/DL (3.4-5.0) (3.4-5.0) Random Glucose 110 MG/DL (74-106) Red Blood Count 3.92 MIL/MM3 (4.00-5.30) Neutrophils (%) (Auto) 73.9 % (16.0-70.0) Monocytes (%) (Auto) 9.6 % (0.0-8.0) Eosinophils (%) (Auto) 5.3 % (0.0-4.0) Lymphocytes # (Auto) 0.8 TH/MM3 (1.0-4.8) Aspartate Amino Transf 13 U/L (15-37) (AST/SGOT) PE at Discharge GENERAL: Well-developed well-nourished. Morbidly obese. In no acute distress. SKIN: Warm and dry. No lesions noted. HEENT: Normocephalic. Pupils equal and round. Mucous membranes pink and moist. Periorbital edema. CARDIOVASCULAR: Regular rate and rhythm. No murmur appreciated. RESPIRATORY: No accessory muscle use. Clear to auscultation. Breath sounds diminished secondary to body habitus. GASTROINTESTINAL: Abdomen soft, non-tender, nondistended. Bowel sounds x4. MUSCULOSKELETAL: No obvious deformities. No clubbing or cyanosis. Trace edema. NEUROLOGICAL: Awake and alert. No focal neurological deficits. Moves upper and lower extremities spontaneously. Normal speech. PSYCHIATRIC: Appropriate mood and affect; insight and judgment normal. Pt update on day of discharge No overnight events, no shortness of breath, weakness has improved. Calcium is now normal. Hospital Course 56-year-old female patient with a PMH of hypocalcemia s/p parathyroidectomy, ESRD on HD M/W/F, COPD, asthma, CHF (Echo 05/11/16 w/ EF 55-60%) admitted for hypocalcemia. This is acute on chronic secondary to parathyroidectomy. Patient was given intravenous calcium until hypocalcemia was corrected. Nephrology was consulted. Patient also had hyperkalemia which improved with dialysis and Kayexalate. She also initially complained of lightheadedness and weakness which was thought to be secondary to bronchitis and hypocalcemia. Patient received hemodialysis while the patient was in the hospital. On the day of discharge, patient will be discharged home to follow-up with his certified physical therapist assistant. Patient was cleared by nephrology prior to discharge. Pt Condition on Discharge: Good Discharge Disposition: Discharge Home Discharge Time: > 30 minutes Discharge Instructions DIET: Follow Instructions for: Renal Failure Diet Activities you can perform: Regular-No Restrictions Follow up Referrals: Nephrology - 1 Week PCP Follow-up - 1 Week New Medications: Misc. Devices (Roller Walker) 1 Mis Mis 1 EA .ROUTE NOW #1 EA Calcitriol (Rocaltrol) 0.25 Mcg Cap 0.5 MCG PO DAILY hypocalcemia #30 CAP Continued Medications: Aspirin DR (Aspirin EC) 81 Mg Tabdr 81 MG PO DAILY Prevent Blood Clot #30 TAB Atorvastatin (Atorvastatin) 40 Mg Tab 40 MG PO HS Cholesterol Management #30 Ref 0 TAB Bupropion HCl (Bupropion HCl) 75 Mg Tab 75 MG PO DAILY Control Depression Ref 0 TAB Calcitriol (Rocaltrol) 0.25 Mcg Cap 0.25 MCG PO DAILY Calcium Supplement #30 Ref 0 CAP Calcium Carbonate (Antacid) (Calcium Carbonate (Antacid)) 500 Mg Chew 500 MG CHEW 5 TIMES A DAY RENAL Days 30 EA Calcium Carbonate (Antacid) (Calcium Carbonate (Antacid)) 500 Mg Chew 1000 MG CHEW Q4HR Calcium Supplement #120 EA Cyclobenzaprine (Flexeril) 10 Mg Tab 10 MG PO BID PRN MUSCLE SPASM #14 Ref 0 TAB Gabapentin (Gabapentin) 100 Mg Cap 200 MG PO TID #60 Ref 0 CAP Hydrocortisone (Topical) (Hydroskin) 1 % Lot 1 APPLIC TOPICAL Q8HR Rash #1 TUBE Levothyroxine (Levothyroxine) 50 Mcg Tab 50 MCG PO DAILY Thyroid #30 Ref 0 TAB Midodrine (Midodrine) 5 Mg Tab 10 MG PO TID@07,12,17 VS #30 TAB Nystatin Topical (Nystop Topical) 100,000 Unit/Gm Powd 1 APPLIC TOPICAL Q8HR Rash #1 TUBE Pantoprazole (Pantoprazole) 40 Mg Tab 40 MG PO DAILY Reflux #30 Ref 0 TAB Sucralfate (Sucralfate) 1 Gm Tab 1 GM PO BIDAC on empty stomach Duodenal ulcer #120 Ref 0 TAB Riki Knight MD Dec 26, 2016 10:51
[2016-12-26 12:00] VITALS: BP 165/81; PULSE 69; RESP 18; TEMP 96.7; O2SAT 94
== END 2016-12-26 13:14 | disposition home or self-care (01) | DRG 640 ==
LOC: NEPE 19:52 → NEDA 21:51 → NEPHCDU 23:53 → OBSVTOIN 12-22 11:16 → HOCA 12-22 17:23
PROVIDERS: ADMIT Hospitalist; ATTEND Hospitalist
PROC: 5A1D60Z (ICD-10-PCS; principal; 2016-12-22)
DX: E83.51 Hypocalcemia (principal); N18.6 End stage renal disease; I13.2 Hypertensive heart and chronic kidney disease with heart failure and with stage 5 chronic kidney disease, or end stage renal disease; Z68.42 Body mass index [BMI] 45.0-49.9, adult; E11.22 Type 2 diabetes mellitus with diabetic chronic kidney disease; E66.01 Morbid (severe) obesity due to excess calories; E87.5 Hyperkalemia; E83.39 Other disorders of phosphorus metabolism; J44.9 Chronic obstructive pulmonary disease, unspecified; J45.909 Unspecified asthma, uncomplicated; E78.00 Pure hypercholesterolemia, unspecified; K21.9 Gastro-esophageal reflux disease without esophagitis; G47.30 Sleep apnea, unspecified; I50.9 Heart failure, unspecified; E89.2 Postprocedural hypoparathyroidism; M19.90 Unspecified osteoarthritis, unspecified site; F32.9 Major depressive disorder, single episode, unspecified; F41.9 Anxiety disorder, unspecified; Z72.0 Tobacco use; Z88.1 Allergy status to other antibiotic agents; Z86.14 Personal history of Methicillin resistant Staphylococcus aureus infection; Z99.2 Dependence on renal dialysis
CPT/HCPCS: 71010; 76937; 80048; 80053; 80069; 82948; 83735; 84100; 84155; 85025; 85610; 85730; 90935; 94150; 96374; 96375; 99284; 99285; G0378; J0610; J1580; J1644; J1815; J2405; P9047; Q4081

== ENCOUNTER 2017-02-04 19:06 | Inpatient (IN) | payer MEDICARE, OTHER ==
[~2017-02-04] VITALS: Ht 167.6 cm; Wt 142.8 kg
[~2017-02-04 19:06] MED LIST changes: +ROLLER WALKER1 MI1
--- NOTE | 2017-02-04 19:26 | PD ---
HPI Chief Complaint: generalized weakness Time Seen by Provider: 19:11 Travel History International Travel<30 days: No Contact w/Intl Traveler<30days: No Traveled to known affect area: No History of Present Illness HPI The patient is a 56-year-old [place] female who presents to the emergency department via EMS from home, where she lives with her daughter, for generalized weakness. The patient states she awakened this morning and developed nausea, generalized weakness, with mild shortness of breath. The patient also complains of facial swelling, has a history of similar symptoms in the past secondary to volume overload. The patient does have a history of end- stage renal disease and is currently on hemodialysis. The patient is followed by Dr. Villagran and goes to dialysis on Mondays, Wednesdays, and Fridays. The patient had dialysis on Sunday and had approximately 2-1/2 L of fluid removed. Currently have a primary physician. The patient does have a history of shortness of breath secondary to COPD, asthma, and congestive heart failure. She does continue to smoke cigarettes on a regular basis. She denies current fever, chills, or sweats. She denies any company chest pain or abdominal pain. Symptoms are moderate, no known alleviating or exacerbating factors. PFSH Past Medical History Hx Anticoagulant Therapy: No Anemia: Yes Arthritis: Yes Asthma: Yes Autoimmune Disease: No Blood Disorders: No Anxiety: Yes Depression: No (hx of ) Heart Rhythm Problems: No Cancer: No Cardiovascular Problems: Yes (HIGH CHOLESTEROL ) High Cholesterol: Yes Chemotherapy: No Chest Pain: Yes Congestive Heart Failure: Yes COPD: Yes Cerebrovascular Accident: No Diabetes: Yes Dialysis: Yes (M/W/F) Diminished Hearing: No Endocrine: Yes Gastrointestinal Disorders: Yes (ULCERS) GERD: Yes Glaucoma: No Genitourinary: Yes (ESRD, Dialysis) Headaches: Yes Hepatitis: No Hiatal Hernia: No Hypertension: Yes (hx of not now) Immune Disorder: No Implanted Vascular Access Dvce: Yes (R FEMORAL AV FISTULA) Kidney Stones: No Musculoskeletal: Yes (Arthritis) Neurologic: No Psychiatric: Yes Reproductive: No Respiratory: Yes Immunizations Current: Yes Migraines: No Myocardial Infarction: No Pneumonia: Yes (HX) Radiation Therapy: Yes Renal Failure: Yes (CRF) Seizures: No Sickle Cell Disease: No Sleep Apnea: Yes Thyroid Disease: Yes Ulcer: Yes PNEUMOCCOCAL Vaccine (Year): 3 Menopausal: Yes : 3 Para: 3 Miscarriage: 0 : 0 Past Surgical History Abdominal Surgery: Yes AICD: No Appendectomy: Yes Arteriovenous Shunt: Yes (right femoral av fistula) Body Medical Devices: Old nonfunctioning NANCY fistula. Current- Permacath Right Groin Cardiac Surgery: No Cholecystectomy: Yes Ear Surgery: No Endocrine Surgery: Yes (THYROIDECTOMY) Eye Surgery: Yes (LASIK right cataract removed / left removed) Genitourinary Surgery: Yes (Peritoneal Abdominal Catheter removed april 2015) Gynecologic Surgery: Yes (Partial Hysterectomy and Appendectomy ) Hysterectomy: Yes (PARTIAL ) Insulin Pump: No Joint Replacement: No Neurologic Surgery: No Oral Surgery: Yes (ALL TEETH REMOVED) Pacemaker: No Thoracic Surgery: No Other Surgery: Yes (RIGHT HAND, APPENDECTOMY, GALL BLADDER REMOVAL) Social History Alcohol Use: Yes (OCCASIONALLY ) Tobacco Use: Yes Substance Use: No Allergies-Medications (Allergen,Severity, Reaction): Coded Allergies: Levaquin (Unverified Allergy, Severe, 02/04/17) ANAPHYLAXIS *MDRO Multi-Drug Resistant Organism (Verified Adverse Reaction, Unknown, Cleared, 02/04/17) MRSA (wound) - 04/2011, (blood) - 10/2011 MRSA PCR Screens NEGATIVE - 02/17/15 & 02/19/15 CLEARED PER INFECTION CONTROL Reported Meds & Prescriptions Reported Meds & Active Scripts Active Roller Walker (Misc. Devices) 1 Mis Mis 1 Ea .ROUTE NOW Rocaltrol (Calcitriol) 0.25 Mcg Cap 0.5 Mcg PO DAILY Flexeril (Cyclobenzaprine HCl) 10 Mg Tab 10 Mg PO BID PRN Calcium Carbonate (Antacid) 500 Mg Chew 1,000 Mg CHEW Q4HR Midodrine 5 Mg Tab 10 Mg PO TID@,, Calcium Carbonate (Antacid) 500 Mg Chew 500 Mg CHEW 5 TIMES A DAY 30 Days Nystop Topical (Nystatin Topical) 100,000 Unit/Gm Powd 1 Applic TOPICAL Q8HR Hydroskin (Hydrocortisone (Topical)) 1 % Lot 1 Applic TOPICAL Q8HR Aspirin EC (Aspirin) 81 Mg Tabdr 81 Mg PO DAILY Reported Sucralfate 1 Gm Tab 1 Gm PO BIDAC on empty stomach Rocaltrol (Calcitriol) 0.25 Mcg Cap 0.25 Mcg PO DAILY Pantoprazole (Pantoprazole Sodium) 40 Mg Tab 40 Mg PO DAILY Levothyroxine (Levothyroxine Sodium) 50 Mcg Tab 50 Mcg PO DAILY Gabapentin 100 Mg Cap 200 Mg PO TID Bupropion HCl 75 Mg Tab 75 Mg PO DAILY Atorvastatin (Atorvastatin Calcium) 40 Mg Tab 40 Mg PO HS Review of Systems Except as stated in HPI: all other systems reviewed are Neg General / Constitutional: No: Fever Eyes: No: Visual changes HENT: Positive: Headaches, Other (facial swelling) Cardiovascular: No: Chest Pain or Discomfort Respiratory: Positive: Shortness of Breath Gastrointestinal: Positive: Nausea, No: Vomiting, Abdominal Pain Genitourinary: Positive: Decreased Urinary Output Musculoskeletal: Positive: Weakness, No: Edema Neurologic: Positive: Weakness Physical Exam Narrative GENERAL: Awake, alert, pleasant 56-year-old female who appears her stated age and is in no acute respiratory distress. SKIN: Focused skin assessment warm/dry. HEAD: Mild periorbital edema. EYES: Pupils equal and round. Pupils are 2 mm bilateral. ENT: No nasal bleeding or discharge. Mucous membranes pink and moist. No visible dentition. NECK: Trachea midline. No JVD. CARDIOVASCULAR: Regular rate and rhythm. No murmur appreciated. RESPIRATORY: No accessory muscle use. Clear to auscultation. Breath sounds equal bilaterally. GASTROINTESTINAL: Abdomen soft, obese, no rebound tenderness. MUSCULOSKELETAL: No obvious deformities. No clubbing. No cyanosis. No edema. Permacath located in the right groin. NEUROLOGICAL: Awake and alert. No obvious cranial nerve deficits. Motor grossly within normal limits. Normal speech. Nonfocal. Oriented 4. PSYCHIATRIC: Appropriate mood and affect; insight and judgment normal. Data Data Last Documented VS Vital Signs Date Time Temp Pulse Resp B/P Pulse Ox O2 Delivery O2 Flow Rate FiO2 02/04/17 19:32 86 18 99 Nasal Cannula 2 02/04/17 19:29 98.9 92/46 Orders Complete Blood Count With Diff (02/04/17 19:18) Comprehensive Metabolic Panel (02/04/17 19:18) Act Partial Throm Time (Ptt) (02/04/17 19:18) Prothrombin Time / Inr (Pt) (02/04/17 19:18) Magnesium (Mg) (02/04/17 19:18) Ckmb (Isoenzyme) Profile (02/04/17 19:18) Troponin I (02/04/17 19:18) Iv Access Insert/Monitor (02/04/17 19:18) Electrocardiogram (02/04/17 19:18) Ecg Monitoring (02/04/17 19:18) Oximetry (02/04/17 19:18) Oxygen Administration (02/04/17 19:18) Chest, Single Ap (02/04/17 19:18) Sodium Chloride 0.9% Flush (Ns Flush) (02/04/17 19:30) Ondansetron Inj (Zofran Inj) (02/04/17 19:30) Phosphorus (Po4) (02/04/17 19:18) Sodium Chlor 0.9% 250 Ml Inj (Ns 250 Ml (02/04/17 20:30) Potassium, Serum (K) (02/05/17 00:25) Ecg Monitoring (02/04/17 21:25) Oximetry (02/04/17 21:25) Calcium Gluconate Inj (Calcium Gluconate (02/04/17 21:30) Insulin Human Regular Inj (Novolin R Inj (02/04/17 21:30) Dextrose 50% In Dalila (Vial) Inj (D50w (Vi (02/04/17 21:30) Sodium Bicarbonate 8.4% Inj (Sodium Bica (02/04/17 21:30) Labs Laboratory Tests Test 02/04/17 02/04/17 19:15 20:15 White Blood Count 10.7 TH/MM3 Red Blood Count 4.09 MIL/MM3 Hemoglobin 12.0 GM/DL Hematocrit 37.8 % Mean Corpuscular Volume 92.5 FL Mean Corpuscular Hemoglobin 29.2 PG Mean Corpuscular Hemoglobin 31.6 % Concent Red Cell Distribution Width 15.8 % Platelet Count 242 TH/MM3 Mean Platelet Volume 8.3 FL Neutrophils (%) (Auto) 76.6 % Lymphocytes (%) (Auto) 6.1 % Monocytes (%) (Auto) 7.7 % Eosinophils (%) (Auto) 9.0 % Basophils (%) (Auto) 0.6 % Neutrophils # (Auto) 8.2 TH/MM3 Lymphocytes # (Auto) 0.7 TH/MM3 Monocytes # (Auto) 0.8 TH/MM3 Eosinophils # (Auto) 1.0 TH/MM3 Basophils # (Auto) 0.1 TH/MM3 CBC Comment DIFF FINAL Differential Comment Prothrombin Time 10.7 SEC Prothromb Time International 1.0 RATIO Ratio Activated Partial 30.5 SEC Thromboplast Time Sodium Level 140 MEQ/L Potassium Level 6.2 MEQ/L Chloride Level 105 MEQ/L Carbon Dioxide Level 23.2 MEQ/L Anion Gap 12 MEQ/L Blood Urea Nitrogen 81 MG/DL Creatinine 10.69 MG/DL Estimat Glomerular Filtration 5 ML/MIN Rate Random Glucose 89 MG/DL Calcium Level 6.7 MG/DL Protein Corrected Calcium 6.3 MG/DL Phosphorus Level 4.5 MG/DL Magnesium Level 2.3 MG/DL Total Bilirubin 0.2 MG/DL Aspartate Amino Transf 14 U/L (AST/SGOT) Alanine Aminotransferase 17 U/L (ALT/SGPT) Alkaline Phosphatase 58 U/L Total Creatine Kinase 87 U/L Troponin I LESS THAN 0.02 NG/ML Total Protein 8.1 GM/DL Albumin 2.9 GM/DL MDM Medical Decision Making Medical Screen Exam Complete: Yes Emergency Medical Condition: Yes Medical Record Reviewed: Yes Interpretation(s) EKG reveals normal sinus rhythm with a rate 87. Low QRS voltage in precordial leads. Last Impressions Chest X-Ray 02/04/171917 Signed Impressions: Service Date/Time: Saturday, February 04, 2017 19:23 - CONCLUSION: 1. No acute cardiopulmonary disease. Gaetano Matute MD Laboratory Tests Test 02/04/17 02/04/17 19:15 20:15 White Blood Count 10.7 TH/MM3 Red Blood Count 4.09 MIL/MM3 Hemoglobin 12.0 GM/DL Hematocrit 37.8 % Mean Corpuscular Volume 92.5 FL Mean Corpuscular Hemoglobin 29.2 PG Mean Corpuscular Hemoglobin 31.6 % Concent Red Cell Distribution Width 15.8 % Platelet Count 242 TH/MM3 Mean Platelet Volume 8.3 FL Neutrophils (%) (Auto) 76.6 % Lymphocytes (%) (Auto) 6.1 % Monocytes (%) (Auto) 7.7 % Eosinophils (%) (Auto) 9.0 % Basophils (%) (Auto) 0.6 % Neutrophils # (Auto) 8.2 TH/MM3 Lymphocytes # (Auto) 0.7 TH/MM3 Monocytes # (Auto) 0.8 TH/MM3 Eosinophils # (Auto) 1.0 TH/MM3 Basophils # (Auto) 0.1 TH/MM3 CBC Comment DIFF FINAL Differential Comment Prothrombin Time 10.7 SEC Prothromb Time International 1.0 RATIO Ratio Activated Partial 30.5 SEC Thromboplast Time Sodium Level 140 MEQ/L Potassium Level 6.2 MEQ/L Chloride Level 105 MEQ/L Carbon Dioxide Level 23.2 MEQ/L Anion Gap 12 MEQ/L Blood Urea Nitrogen 81 MG/DL Creatinine 10.69 MG/DL Estimat Glomerular Filtration 5 ML/MIN Rate Random Glucose 89 MG/DL Calcium Level 6.7 MG/DL Protein Corrected Calcium 6.3 MG/DL Phosphorus Level 4.5 MG/DL Magnesium Level 2.3 MG/DL Total Bilirubin 0.2 MG/DL Aspartate Amino Transf 14 U/L (AST/SGOT) Alanine Aminotransferase 17 U/L (ALT/SGPT) Alkaline Phosphatase 58 U/L Total Creatine Kinase 87 U/L Troponin I LESS THAN 0.02 NG/ML Total Protein 8.1 GM/DL Albumin 2.9 GM/DL Differential Diagnosis Differential diagnosis includes hypocalcemia, hypercalcemia, hypokalemia, hyperkalemia, volume depletion, volume overload, superior vena cava syndrome, pleural effusion, deconditioning. Narrative Course IV was established, labs are drawn and sent, and the patient was placed on cardiac telemetry monitoring and continuous pulse oximetry monitoring. EKG was ordered and interpreted. Chest x-ray was obtained. The patient was administered Zofran 4 mg intravenously. The patient's calcium is 6.7, however, protein corrected calcium was 6.3, the patient has a history of previous parathyroidectomy and is currently on calcium treatments. Patient's potassium was also 6.2, she is dialysis patient, will need dialysis in the morning. The patient was administered insulin, amp of D50, sodium bicarbonate, and calcium gluconate 1 g intravenously as her calcium is low and potassium is high. The patient will be admitted, will need consultation with her shipping weigher, Dr. Villagran. Patient did have low QRS voltage in precordial leads on EKG, however, do not believe this is secondary to pericardial effusion as her cardiac silhouette a small on x-ray and there is no evidence of volume overload. The on -call medical service was paged for admission. Physician Communication Physician Communication I discussed the patient with Dr. Dunn who agrees with admission. Diagnosis Primary Impression: Hyperkalemia Additional Impression: Hypocalcemia Admitting Information Admitting Physician Requests: Admit Condition: Stable Amador Arias MD February 04, 2017 19:26
[2017-02-04 19:29] VITALS: BP 92/46; PULSE 86; RESP 18; TEMP 98.9; O2SAT 99
[2017-02-04] MEDS ORDERED: SODIUM CHLORIDE 0.9% FLUSH 10 ML FLUSH IVF PRN (19:30)
[2017-02-04] MEDS ORDERED: ONDANSETRON HCL 4 MG/2 ML VIAL IV PUSH ONE (19:30)
[2017-02-04 19:32] VITALS: RESP 18; O2SAT 99
[2017-02-04 19:35] LABS: AUTOMATED NEUTROPHIL # 8.2 TH/MM3 (1.8-7.7); BASOPHIL # 0.1 TH/MM3 (0-0.2); BASOPHIL % 0.6 % (0.0-2.0); HEMATOCRIT 37.8 % (35.0-46.0); HEMO FLAGS DIFF FINAL; LYMPH % 6.1 % (9.0-44.0); LYMPHOCYTE # 0.7 TH/MM3 (1.0-4.8); MEAN CELL VOLUME 92.5 FL (80.0-100.0); MEAN CORPUSCULAR HEMOGLOBIN 29.2 PG (27.0-34.0); MEAN CORPUSCULAR HGB CONC 31.6 % (32.0-36.0); MONO % 7.7 % (0.0-8.0); NEUT % 76.6 % (16.0-70.0); PLATELET COUNT 242 TH/MM3 (150-450); RED BLOOD COUNT 4.09 MIL/MM3 (4.00-5.30); RED CELL DISTRIBUTION WIDTH 15.8 % (11.6-17.2); WHITE BLOOD COUNT 10.7 TH/MM3 (4.0-11.0)
[2017-02-04 19:45] LABS: APTT (PATIENT) 30.5 SEC (24.3-30.1); PROTHROMBIN TIME - PATIENT 10.7 SEC (9.8-11.6)
--- NOTE | 2017-02-04 19:57 | RADRPT ---
EXAM DATE/TIME: 02/04/2017 19:23 [facility] COMPARISON: CHEST SINGLE AP, December 21, 2016, 20:51. INDICATIONS : Shortness of breath. MEDICAL HISTORY : Cardiovascular disease. Renal disease, end stage. Chronic obstructive pulmonary disease. SURGICAL HISTORY : Appendectomy. Cholecystectomy. Hysterectomy. ENCOUNTER: Initial ACUITY: 1 day PAIN SCORE: 0/10 LOCATION: Bilateral chest FINDINGS: The left subclavian dialysis implant is again noted and stable. Vascular stent is also noted within the left upper arm in the expected region of the axillary vessels. The heart is stable. The pulmona ry vascular pattern is normal. The lungs are clear. CONCLUSION: 1. No acute cardiopulmonary disease. Gaetano Matute MD on February 04, 2017 at 19:52 Board Certified Radiologist. This report was verified electronically.
[2017-02-04] MEDS ORDERED: SODIUM CHLOR 0.9% 250 ML INJ 250 ML IV ONE (20:30)
[2017-02-04 21:22] LABS: ALKALINE PHOSPHATASE 58 U/L (45-117); ALT (GPT) 17 U/L (10-53); ANION GAP 12 MEQ/L (5-15); AST (GOT) 14 U/L (15-37); BICARBONATE 23.2 MEQ/L (21.0-32.0); BLOOD UREA NITROGEN 81 MG/DL (7-18); CHLORIDE 105 MEQ/L (98-107); CREATINE KINASE 87 U/L (26-192); GLOMERULAR FILTRATION RATE 5 ML/MIN (>89); MAGNESIUM 2.3 MG/DL (1.5-2.5); POTASSIUM 6.2 MEQ/L (3.5-5.1); SODIUM (NA) 140 MEQ/L (136-145); TOTAL BILIRUBIN ADULT 0.2 MG/DL (0.2-1.0)
[2017-02-04 21:24] LABS: CALCIUM-PROTEIN CORRECTED 6.3 MG/DL (8.5-10.1)
[2017-02-04] MEDS ORDERED: DEXTROSE 50% IN WATER 50 ML VIAL(D50) IV PUSH ONE (21:30)
[2017-02-04] MEDS ORDERED: SODIUM BICARBONATE 8.4% SOLN 50 MEQ/50 ML VIAL SLOW IVP ONE (21:30)
[2017-02-04] MEDS ORDERED: INSULIN HUMAN REGULAR 1,000 UNITS/10 ML VIAL IV PUSH ONE (21:30)
[2017-02-04] MEDS ORDERED: CALCIUM GLUCONATE 10% 1 GM/10 ML VIAL SLOW IVP ONE (21:30)
[2017-02-04] MEDS ORDERED: ACETAMINOPHEN 325 MG TAB PO PRN (21:45)
[2017-02-04] MEDS ORDERED: SODIUM CHLORIDE 0.9% FLUSH 10 ML FLUSH IV FLUSH PRN (21:45)
[2017-02-04] MEDS ORDERED: MORPHINE SULFATE 4 MG/ML INJ IV PRN (21:45)
[2017-02-04] MEDS ORDERED: ONDANSETRON HCL 4 MG/2 ML VIAL IVP PRN (21:45)
[2017-02-04] MEDS ORDERED: SENNOSIDES 8.6 MG TAB PO PRN (21:45)
[2017-02-04] MEDS ORDERED: ACETAMINOPHEN/HYDROcodone 325 MG/5 MG TAB PO PRN (21:45)
[2017-02-04] MEDS ORDERED: LACTULOSE SYRUP 20 GM/30 ML CUP PO PRN (21:45)
[2017-02-04] MEDS ORDERED: CYCLOBENZAPRINE HCL 10 MG TAB PO PRN (21:45)
[2017-02-04] MEDS ORDERED: BISACODYL 10 MG SUPP RECTAL PRN (21:45)
[2017-02-04] MEDS ORDERED: MAGNESIUM HYDROXIDE SUSP 30 ML CUP PO PRN (21:45)
--- NOTE | 2017-02-04 21:53 | HHI.HP ---
[facility] Service [facility] Primary Care Physician No Primary Care Physician Admission Diagnosis hyperkalemia, hypocalcemia, facial swelling Diagnoses: (1) ESRD on hemodialysis Diagnosis: Principal (2) Hyperkalemia Diagnosis: Principal (3) Hypocalcemia Diagnosis: Principal Travel History International Travel<30 Days: No Contact w/Intl Traveler <30 Da: No Traveled to Known Affected Are: No History of Present Illness This is a 56 year old female with a PMH of HTN, COPD, CHF (Echo 05/11/16 w/ EF 55- 60%), ESRD on HD M/W/F, h/o Parathyroidectomy and Recurrent Hypocalcemia who presented to the ER with complaints of generalized weakness, nausea and facial swelling x1 day. States she had HD on Sunday w/ no complications, 2L removed. Follows w/ Dr. Villagran as outpatient. On arrival, BP 92/46, HR 86, O2 sat 99% on 2L NC, Afebrile. S/p IVF w/ some improvement. CBC unremarkable. K+ 6.2, s/p Insulin/D50. Ca 6.7, Corrected 6.3, s/p Ca replacement in ER. Creatinine 10.69 , at baseline. CXR w/ no acute findings. Review of Systems Except as stated in HPI: all other systems reviewed are Neg ROS: 14 point review of systems otherwise negative. Past Family Social History Past Medical History PMH: HTN, COPD, CHF (Echo 05/11/16 w/ EF 55-60%), ESRD on HD M/W/F, h/o Parathyroidectomy and Recurrent Hypocalcemia Past Surgical History PAST SURGICAL HISTORY: Right Femoral AV Fistula, Thyroidectomy, Parathyroidectomy, Partial Hysterectomy, Appendectomy, Dental Extraction, Cholecystectomy, Cataract Surgery Allergies: Coded Allergies: Levaquin (Unverified Allergy, Severe, 02/04/17) ANAPHYLAXIS *MDRO Multi-Drug Resistant Organism (Verified Adverse Reaction, Unknown, Cleared, 02/04/17) MRSA (wound) - 04/2011, (blood) - 10/2011 MRSA PCR Screens NEGATIVE - 02/17/15 & 02/19/15 CLEARED PER INFECTION CONTROL Family History PAST FAMILY HISTORY: Reviewed. No h/o DM or CAD Social History PAST SOCIAL HISTORY: Occasional alcohol. Positive for tobacco. Negative for drugs. Physical Exam Vital Signs Vital Signs Date Time Temp Pulse Resp B/P Pulse Ox O2 Delivery O2 Flow Rate FiO2 02/04/17 19:32 86 18 99 Nasal Cannula 2 02/04/17 19:32 99 Nasal Cannula 2 02/04/17 19:32 18 99 02/04/17 19:29 98.9 86 18 92/46 99 Physical Exam PE: GENERAL: Very pleasant middle-aged black female in no acute distress. HEENT: PERRLA, EOMI. No scleral icterus or conjunctival pallor. No lid lag or facial droop. Generalized facial swelling. CARDIOVASCULAR: Regular rate and rhythm. No obvious murmurs to auscultation. No chest tenderness to palpation. RESPIRATORY: No obvious rhonchi or wheezing. Clear to auscultation. Breath sounds equal bilaterally. GASTROINTESTINAL: Abdomen soft, non-tender, nondistended. BS normal. MUSCULOSKELETAL: Extremities without clubbing, cyanosis, or edema. No obvious deformities. Right femoral HD cath. NEUROLOGICAL: Awake, alert and oriented x4. No focal neurologic deficits. Moving both upper and lower extremities spontaneously. Laboratory Laboratory Tests Test 02/04/17 02/04/17 19:15 20:15 White Blood Count 10.7 Red Blood Count 4.09 Hemoglobin 12.0 Hematocrit 37.8 Mean Corpuscular Volume 92.5 Mean Corpuscular Hemoglobin 29.2 Mean Corpuscular Hemoglobin 31.6 Concent Red Cell Distribution Width 15.8 Platelet Count 242 Mean Platelet Volume 8.3 Neutrophils (%) (Auto) 76.6 Lymphocytes (%) (Auto) 6.1 Monocytes (%) (Auto) 7.7 Eosinophils (%) (Auto) 9.0 Basophils (%) (Auto) 0.6 Neutrophils # (Auto) 8.2 Lymphocytes # (Auto) 0.7 Monocytes # (Auto) 0.8 Eosinophils # (Auto) 1.0 Basophils # (Auto) 0.1 CBC Comment DIFF FINAL Differential Comment Prothrombin Time 10.7 Prothromb Time International 1.0 Ratio Activated Partial 30.5 Thromboplast Time Sodium Level 140 Potassium Level 6.2 Chloride Level 105 Carbon Dioxide Level 23.2 Anion Gap 12 Blood Urea Nitrogen 81 Creatinine 10.69 Estimat Glomerular Filtration 5 Rate Random Glucose 89 Calcium Level 6.7 Protein Corrected Calcium 6.3 Phosphorus Level 4.5 Magnesium Level 2.3 Total Bilirubin 0.2 Aspartate Amino Transf 14 (AST/SGOT) Alanine Aminotransferase 17 (ALT/SGPT) Alkaline Phosphatase 58 Total Creatine Kinase 87 Troponin I LESS THAN 0.02 Total Protein 8.1 Albumin 2.9 Result Diagram: 02/04/17 1915 02/04/172014 Assessment and Plan Problem List: (1) ESRD on hemodialysis ICD Code: N18.6 Status: Acute (2) Hypocalcemia ICD Code: E83.51 Status: Resolved (3) Hyperkalemia ICD Code: E87.5 Status: Acute Assessment and Plan A/P: 1. ESRD on HD: M/W/, s/p HD on Sunday w/ no complications, 2L removed. Follows w/ Dr. Villagran as outpatient, will consult to schedule upcoming HD. Resume home medications. 2. Hypocalcemia: Recurrent. H/o Parathyroidectomy, on Calcium PO, compliant w / meds. +Symptomatic. Ca 6.7, Corrected 6.3, s/p replacement in ER, will recheck and replace as needed. 3. Hyperkalemia: K+ 6.2. S/p Insulin/D50/Ca. Will recheck in am, likely needs HD. 4. DVT Prophylaxis: Heparin sq 5. Social work for d/c planning as needed. 6. Case discussed w/ ER physician at length 7. Social work for d/c planning as needed. Physician Certification 2 Midnight Certification Type: Admission for Inpatient Services Order for Inpatient Services The services are ordered in accordance with Medicare regulations or non- Medicare payer requirements, as applicable. In the case of services not specified as inpatient-only, they are appropriately provided as inpatient services in accordance with the 2-midnight benchmark. Estimated LOS (days): 2 days is the estimated time the patient will need to remain in the hospital, assuming treatment plan goals are met and no additional complications. Post-Hospital Plan: Not yet determined Emmy Dunn MD February 04, 2017 21:53
[2017-02-04 22:42] VITALS: PULSE 83; RESP 20; O2SAT 98
[2017-02-04 22:49] VITALS: BP 131/79; PULSE 76; RESP 18; TEMP 97.8; O2SAT 97
[2017-02-04] MEDS: CALCIUM CARBONATE 500 MG CHEWABLE TAB CHEW SCH (23:47)
[2017-02-04] MEDS: HEPARIN SODIUM - SQ 10,000 UNITS/ML VIAL SQ SCH (23:47)
[2017-02-05] VITALS (11 sets, daily range): BP systolic 95–139; BP diastolic 56–72; PULSE 79–98; RESP 16–20; TEMP 97.3–97.8; O2SAT 94–99
[2017-02-05] MEDS: NYSTATIN 100,000 U/GM PWD 15 GM BTL TOPICAL SCH ×4 (00:14→21:04)
[2017-02-05] MEDS: HYDROCORTISONE 1% LOTN 120 ML BTL TOPICAL SCH ×4 (00:14→21:04)
[2017-02-05] MEDS: CALCIUM CARBONATE 500 MG CHEWABLE TAB CHEW SCH ×7 (00:21→21:01)
[2017-02-05] MEDS ORDERED: RESP: ALBUTEROL 2.5 MG/IPRATROPIUM 0.5 MG NEB (PRN) NEB (02:15)
[2017-02-05] MEDS: LEVOTHYROXINE SODIUM 50 MCG TAB PO SCH (05:33)
[2017-02-05] MEDS: MIDODRINE 5 MG TAB PO SCH ×3 (05:34→17:00)
[2017-02-05] MEDS: SUCRALFATE 1 GM TAB PO SCH ×2 (06:38→16:00)
--- NOTE | 2017-02-05 08:22 | EKG ---
Date Performed: 02/04/2017 Time Performed: 21:10:22 PTAGE: 56 years EKG: Sinus rhythm LOW QRS VOLTAGE IN PRECORDIAL LEADS BORDERLINE ECG Compared to prior electrocardiogram,Premature atr ial contractions are no longer present. PREVIOUS TRACING : 10/06/2016 11.31 DOCTOR: Reyes Hood Interpretating Date/Time 02/05/2017 08:21:46
[2017-02-05] MEDS ORDERED: SODIUM CHLOR 0.9% 1000 ML INJ 1,000 ML IV PRN ×3 (08:23)
[2017-02-05] MEDS ORDERED: NITROGLYCERIN 0.4 MG SL 25 TABS/BTL SL PRN (08:30)
[2017-02-05] MEDS ORDERED: SODIUM CHLORIDE 0.9% FLUSH 10 ML FLUSH IV FLUSH PRN (08:30)
[2017-02-05] MEDS ORDERED: diphenhydrAMINE HCL 25 MG CAP PO PRN (08:30)
[2017-02-05] MEDS ORDERED: ONDANSETRON HCL 4 MG/2 ML VIAL IV PRN (08:30)
[2017-02-05] MEDS: CALCITRIOL 0.25 MCG CAP PO SCH (08:30)
[2017-02-05] MEDS: GABAPENTIN 100 MG CAP PO SCH ×3 (08:30→18:00)
[2017-02-05] MEDS ORDERED: cloNIDine HCL 0.1 MG TAB PO PRN (08:30)
[2017-02-05] MEDS ORDERED: ACETAMINOPHEN 325 MG TAB PO PRN (08:30)
[2017-02-05] MEDS ORDERED: HEPARIN SODIUM - IV 10,000 UNITS/10 ML VIAL IVF PRN (08:30)
[2017-02-05] MEDS: DOCUSATE SODIUM 50 MG/SENNA 8.6 MG TAB PO SCH ×2 (08:30→08:33)
[2017-02-05] MEDS ORDERED: MANNITOL 12.5 GM/50 ML VIAL IV PRN (08:30)
[2017-02-05] MEDS ORDERED: GELATIN 12 MM/7 MM FOAM TOP PRN (08:30)
[2017-02-05] MEDS: ASPIRIN EC 81 MG TABEC PO SCH (08:30)
[2017-02-05] MEDS: PANTOPRAZOLE SOD 40 MG DELAYED RELEASE TAB PO SCH (08:30)
[2017-02-05] MEDS: SODIUM CHLORIDE 0.9% FLUSH 10 ML FLUSH IV FLUSH SCH ×2 (08:31→21:01)
[2017-02-05 08:37] LABS: AUTOMATED NEUTROPHIL # 4.3 TH/MM3 (1.8-7.7); BASOPHIL % 0.5 % (0.0-2.0); EOSINOPHIL # 0.7 TH/MM3 (0-0.4); EOSINOPHIL % 11.3 % (0.0-4.0); HEMATOCRIT 35.8 % (35.0-46.0); HEMO FLAGS DIFF FINAL; LYMPHOCYTE # 0.8 TH/MM3 (1.0-4.8); MEAN CELL VOLUME 92.5 FL (80.0-100.0); MEAN CORPUSCULAR HEMOGLOBIN 29.9 PG (27.0-34.0); MEAN CORPUSCULAR HGB CONC 32.3 % (32.0-36.0); MONO % 10.3 % (0.0-8.0); NEUT % 65.9 % (16.0-70.0); PLATELET COUNT 224 TH/MM3 (150-450); RED BLOOD COUNT 3.87 MIL/MM3 (4.00-5.30); WHITE BLOOD COUNT 6.5 TH/MM3 (4.0-11.0)
[2017-02-05] MEDS ORDERED: CALCITRIOL 0.25 MCG CAP PO SCH (09:00)
[2017-02-05] MEDS: buPROPion HCL 75 MG TAB PO SCH (09:00)
[2017-02-05 09:16] LABS: BICARBONATE 22.4 MEQ/L (21.0-32.0); TOTAL BILIRUBIN ADULT 0.2 MG/DL (0.2-1.0)
[2017-02-05 09:21] LABS: CALCIUM-PROTEIN CORRECTED 6.5 MG/DL (8.5-10.1)
[2017-02-05] MEDS: HEPARIN SODIUM - SQ 10,000 UNITS/ML VIAL SQ SCH ×2 (09:45→21:01)
--- NOTE | 2017-02-05 12:06 | HHI.PR ---
Subjective Remarks Patient seen in follow up for ESRD with multiple electrolyte abnormalities Patient reports this morning, she feels puffy and believe she has too much fluid on board. Reports mild shortness of breath Awaiting to have dialysis today. Objective Vitals Vital Signs Date Time Temp Pulse Resp B/P Pulse Ox O2 Delivery O2 Flow Rate FiO2 02/05/17 11:52 97.8 86 20 128/72 96 02/05/17 08:00 97.6 81 20 116/58 99 02/05/17 04:00 97.8 98 16 130/61 96 02/05/17 02:51 93 02/05/17 02:42 94 Nasal Cannula 2.00 02/05/17 00:00 97.5 85 20 139/64 96 02/04/17 22:49 97.8 76 18 131/79 97 02/04/17 22:42 83 20 98 Nasal Cannula 2 02/04/17 19:32 86 18 99 Nasal Cannula 2 02/04/17 19:32 99 Nasal Cannula 2 02/04/17 19:32 18 99 02/04/17 19:29 98.9 86 18 92/46 99 I/O 02/04/17 02/04/17 02/04/17 02/05/17 02/05/17 02/05/17 07:00 15:00 23:00 07:00 15:00 23:00 Intake Total 480 ml Balance 480 ml Intake Oral 480 ml # Voids 0 # Bowel Movements 0 Result Diagram: 02/05/1714 02/05/1714 Imaging Last Impressions Chest X-Ray 02/04/17 191 Signed Impressions: Service Date/Time: Saturday, February 04, 2017 19:23 - CONCLUSION: 1. No acute cardiopulmonary disease. Gaetano Matute MD Objective Remarks GENERAL: Obese female in no apparent distress. CARDIOVASCULAR: Normal rate and regular rhythm without murmurs, gallops, or rubs. RESPIRATORY: Good respiratory efforts. Breath sounds equal and clear to auscultation bilaterally. GASTROINTESTINAL: Abdomen soft, non-tender, non-distended. Normal active bowel sounds MUSCULOSKELETAL: Extremities without cyanosis, or edema. NEURO: Alert & Oriented x4 to person, place, time, situation. Moves all ext x4 PSYCH: Appropriate mood and affect. A/P Problem List: (1) ESRD on hemodialysis ICD Code: N18.6 Status: Acute (2) Hypocalcemia ICD Code: E83.51 Status: Resolved (3) Hyperkalemia ICD Code: E87.5 Status: Acute Assessment and Plan 56-year-old female patient with ESRD on HD and recurrent hypocalcemia s/p parathyroidectomy Hypocalcemia: patient is status post parathyroidectomy. She is having recurrent episodes of hypocalcemia. - S/P one dose of Calcium Gluconate IV. Minimal improvement. We'll give another dose of 1 g Calcium carbonate 1000 mg twice a day. Mag levels okay. Appreciate nephrology following hyperkalemia - K+ 6.2. S/p Insulin/D50/Ca on admission - Patient due for dialysis today. ESRD on HD -Appreciated nephrology following. - Dialysis on M,W, F schedule DVT Prophylaxis: Heparin sq Nieves Olivares MD February 05, 2017 12:06
--- NOTE | 2017-02-05 13:59 | PD.CONS ---
HPI Service Nephrology Consult Requested By Dr. Dunn Reason for Consult End-stage renal disease management Primary Care Physician No Primary Care Physician History of Present Illness Patient is a 56-year-old end-stage renal disease, diabetes morbidly obese, hypertension, congestive heart failure presented with increasing facial swelling and weakness tiredness with hypocalcemia patient has recent admission with hypocalcemia status post parathyroidectomy patient's potassium also was elevated she states her last dialysis was on Sunday. Review of Systems Constitutional: COMPLAINS OF: Fatigue Cardiovascular: COMPLAINS OF: Lower Extremity Edema Neurologic: COMPLAINS OF: Poor Balance Past Family Social History Allergies: Coded Allergies: Levaquin (Unverified Allergy, Severe, 02/04/17) ANAPHYLAXIS *MDRO Multi-Drug Resistant Organism (Verified Adverse Reaction, Unknown, Cleared, 02/04/17) MRSA (wound) - 04/2011, (blood) - 10/2011 MRSA PCR Screens NEGATIVE - 02/17/15 & 02/19/15 CLEARED PER INFECTION CONTROL Past Medical History Morbid obesity Diabetes Hypertension End-stage renal disease Congestive heart failure Asthma Hypocalcemia after parathyroidectomy Failed access currently has right groin access Past Surgical History Multiple AV fistula and graft which all failed Currently has a PermCath in right groin Thyroidectomy, Parathyroidectomy Partial Hysterectomy Appendectomy Dental Extraction Cholecystectomy Cataract Surgery Reported Medications Reported Meds & Active Scripts Active Roller Walker (Misc. Devices) 1 Mis Mis 1 Ea .ROUTE NOW Rocaltrol (Calcitriol) 0.25 Mcg Cap 0.5 Mcg PO DAILY Flexeril (Cyclobenzaprine HCl) 10 Mg Tab 10 Mg PO BID PRN Calcium Carbonate (Antacid) 500 Mg Chew 1,000 Mg CHEW Q4HR Midodrine 5 Mg Tab 10 Mg PO TID@,, Calcium Carbonate (Antacid) 500 Mg Chew 500 Mg CHEW 5 TIMES A DAY 30 Days Nystop Topical (Nystatin Topical) 100,000 Unit/Gm Powd 1 Applic TOPICAL Q8HR Hydroskin (Hydrocortisone (Topical)) 1 % Lot 1 Applic TOPICAL Q8HR Aspirin EC (Aspirin) 81 Mg Tabdr 81 Mg PO DAILY Reported Sucralfate 1 Gm Tab 1 Gm PO BIDAC on empty stomach Rocaltrol (Calcitriol) 0.25 Mcg Cap 0.25 Mcg PO DAILY Pantoprazole (Pantoprazole Sodium) 40 Mg Tab 40 Mg PO DAILY Levothyroxine (Levothyroxine Sodium) 50 Mcg Tab 50 Mcg PO DAILY Gabapentin 100 Mg Cap 200 Mg PO TID Bupropion HCl 75 Mg Tab 75 Mg PO DAILY Atorvastatin (Atorvastatin Calcium) 40 Mg Tab 40 Mg PO HS Active Ordered Medications Current Medications Medications (Trade) Dose Ordered Sig/Mary Grace Route Start Time Stop Time Status Last Admin (NS Flush) 2 ml BID IV FLUSH 02/05/17 09:00 02/05/17 08:31 (Zofran Inj) 4 mg Q6H PRN IVP 02/04/17 21:45 (Heparin Inj) 5,000 units Q12H SQ 02/04/17 21:45 02/05/17 09:45 (Tylenol) 650 mg Q6H PRN PO 02/04/17 21:45 ([place] 5-325 Mg) 1 tab Q4H PRN PO 02/04/17 21:45 (Morphine Inj) 2 mg Q3H PRN IV 02/04/17 21:45 (Yelena-Colace) 1 tab BID PO 02/05/17 09:00 (Milk Of Magnesia Liq) 30 ml Q12H PRN PO 02/04/17 21:45 (Senokot) 17.2 mg Q12H PRN PO 02/04/17 21:45 (Dulcolax Supp) 10 mg DAILY PRN RECTAL 02/04/17 21:45 (Lactulose Liq) 30 ml DAILY PRN PO 02/04/17 21:45 (Ecotrin Ec) 81 mg DAILY PO 02/05/17 09:00 02/05/17 08:30 (Lipitor) 40 mg HS PO 02/05/17 21:00 (Wellbutrin) 75 mg DAILY PO 02/05/17 09:00 02/05/17 09:00 (Rocaltrol) 0.25 mcg DAILY PO 02/05/17 09:00 02/05/17 08:30 (Flexeril) 10 mg BID PRN PO 02/04/17 21:45 (Neurontin) 200 mg TID PO 02/05/17 09:00 02/05/17 12:10 (Hydrocortisone 1% Lotion) 1 applic Q8HR TOPICAL 02/04/17 22:00 02/05/17 12:10 (Synthroid) 50 mcg DAILY@06 PO 02/05/17 06:00 02/05/17 05:33 (Proamatine) 10 mg TID@07,12,17 PO 02/05/17 07:00 02/05/17 12:00 (Mycostatin Powder) 1 applic Q8HR TOPICAL 02/04/17 22:00 02/05/17 12:10 (Protonix) 40 mg DAILY PO 02/05/17 09:00 02/05/17 08:30 Sucralfate 1 gm 1 gm BIDAC PO 02/05/17 07:00 02/05/17 06:38 (NS 1000 ml Inj) 1,000 ml @ 0 mls/hr Q0M PRN IV 02/05/17 08:23 Heparin Sodium (Porcine) 8000 units 8,000 units UNSCH PRN IVF 02/05/17 08:30 Sodium Chloride 1,000 ml @ 200 mls/hr Q5H PRN IV 02/05/17 08:23 (NS 1000 ml Inj) 1,000 ml @ 0 mls/hr Q0M PRN IV 02/05/17 08:23 (Mannitol Inj) 12.5 gm UNSCH PRN IV 02/05/17 08:30 (Albumin 25% Inj) 25 gm UNSCH PRN IV 02/05/17 08:30 (NS Flush) 5 ml UNSCH PRN IV FLUSH 02/05/17 08:30 (Heparin Inj) UNSCH PRN .XX 02/05/17 08:30 (Gentamicin (Dialysis) Inj) 20 mg UNSCH PRN IV 02/05/17 08:30 (Zofran Inj) 4 mg UNSCH PRN IV 02/05/17 08:30 (Tylenol) 650 mg UNSCH PRN PO 02/05/17 08:30 (Benadryl) 25 mg UNSCH PRN PO 02/05/17 08:30 (Nitrostat Sl) 0.4 mg UNSCH PRN SL 02/05/17 08:30 (Catapres) 0.1 mg UNSCH PRN PO 02/05/17 08:30 Gelatin 1 foam 1 foam UNSCH PRN TOP 02/05/17 08:30 (Calcium Gluconate Inj/NS Inj) 110 ml @ 110 mls/hr ONCE ONCE IV 02/05/17 14:00 02/05/17 14:59 (Tums Chew) 1,000 mg BID CHEW 02/05/17 21:00 Family History Noncontributory Social History Denies smoking or alcohol use Physical Exam Vital Signs Vital Signs Date Time Temp Pulse Resp B/P Pulse Ox O2 Delivery O2 Flow Rate FiO2 02/05/17 11:52 97.8 86 20 128/72 96 02/05/17 09:00 79 02/05/17 08:12 97 Nasal Cannula 2.00 02/05/17 08:00 97.6 81 20 116/58 99 02/05/17 04:00 97.8 98 16 130/61 96 02/05/17 02:51 93 02/05/17 02:42 94 Nasal Cannula 2.00 02/05/17 00:00 97.5 85 20 139/64 96 02/04/17 22:49 97.8 76 18 131/79 97 02/04/17 22:42 83 20 98 Nasal Cannula 2 02/04/17 19:32 86 18 99 Nasal Cannula 2 02/04/17 19:32 99 Nasal Cannula 2 02/04/17 19:32 18 99 02/04/17 19:29 98.9 86 18 92/46 99 Physical Exam GENERAL: Well-nourished, well-developed patient. SKIN: Warm and dry. HEAD: Normocephalic. Facial swelling present EYES: No scleral icterus. No injection or drainage. NECK: Supple, trachea midline. No JVD or lymphadenopathy. CARDIOVASCULAR: Regular rate and rhythm without murmurs, gallops, or rubs. RESPIRATORY: Breath sounds equal bilaterally. No accessory muscle use. GASTROINTESTINAL: Abdomen soft, non-tender, nondistended. EXTREMITIES: No cyanosis, 1+ edema. NEUROLOGICAL: Awake, alert, and oriented x 3. Non-focal. Laboratory Laboratory Tests Test 02/04/17 02/04/17 02/05/17 02/05/17 19:15 20:15 01:18 07:14 White Blood Count 10.7 6.5 Red Blood Count 4.09 3.87 Hemoglobin 12.0 11.6 Hematocrit 37.8 35.8 Mean Corpuscular Volume 92.5 92.5 Mean Corpuscular Hemoglobin 29.2 29.9 Mean Corpuscular Hemoglobin 31.6 32.3 Concent Red Cell Distribution Width 15.8 15.0 Platelet Count 242 224 Mean Platelet Volume 8.3 8.3 Neutrophils (%) (Auto) 76.6 65.9 Lymphocytes (%) (Auto) 6.1 12.0 Monocytes (%) (Auto) 7.7 10.3 Eosinophils (%) (Auto) 9.0 11.3 Basophils (%) (Auto) 0.6 0.5 Neutrophils # (Auto) 8.2 4.3 Lymphocytes # (Auto) 0.7 0.8 Monocytes # (Auto) 0.8 0.7 Eosinophils # (Auto) 1.0 0.7 Basophils # (Auto) 0.1 0.0 CBC Comment DIFF FINAL DIFF FINAL Differential Comment Prothrombin Time 10.7 Prothromb Time International 1.0 Ratio Activated Partial 30.5 Thromboplast Time Sodium Level 140 138 Potassium Level 6.2 5.2 6.0 Chloride Level 105 104 Carbon Dioxide Level 23.2 22.4 Anion Gap 12 12 Blood Urea Nitrogen 81 95 Creatinine 10.69 11.22 Estimat Glomerular Filtration 5 4 Rate Random Glucose 89 106 Calcium Level 6.7 6.5 Protein Corrected Calcium 6.3 6.5 Phosphorus Level 4.5 Magnesium Level 2.3 Total Bilirubin 0.2 0.2 Aspartate Amino Transf 14 15 (AST/SGOT) Alanine Aminotransferase 17 17 (ALT/SGPT) Alkaline Phosphatase 58 64 Total Creatine Kinase 87 Troponin I LESS THAN 0.02 Total Protein 8.1 7.3 Albumin 2.9 2.7 Result Diagram: 02/05/17 0714 02/05/17 0714 Imaging Last Impressions Chest X-Ray 02/04/17 1918 Signed Impressions: Service Date/Time: Saturday, February 04, 2017 19:23 - CONCLUSION: 1. No acute cardiopulmonary disease. Gaetano Matute MD Assessment and Plan Problem List: (1) ESRD on hemodialysis Plan: Patient is seen and examined during hemodialysis she is tolerating it well we will ultrafiltrate 4 Liters today Continue to monitor her progress she is told about her potassium and be compliant with the diet She takes a higher dose of calcium supplements due to history of hypocalcemia (2) Hypocalcemia Plan: I will increase the calcium carbonate to 1000 mg 5 times a day (3) Hyperkalemia Plan: This should resolve with dialysis (4) Generalized weakness Plan: This is due to hypocalcemia she was given calcium gluconate Frank Villagran MD February 05, 2017 13:59
[2017-02-05] MEDS ORDERED: CALCIUM GLUCONATE INJ 1 GM in SODIUM CHLORIDE 0.9% INJ 100 ML IV ONE (14:00)
[2017-02-05] MEDS: HEPARIN SODIUM - IV 10,000 UNITS/10 ML VIAL PRN (16:02)
[2017-02-05] MEDS: GENTAMICIN SULFATE (DIALYSIS USE ONLY) 20 MG/2 ML VIAL IV PRN (16:02)
[2017-02-05] MEDS: ATORVASTATIN 40 MG TAB PO SCH (21:00)
[2017-02-05] MEDS ORDERED: CALCIUM CARBONATE 500 MG CHEWABLE TAB CHEW SCH (21:00)
[2017-02-06] VITALS (9 sets, daily range): BP systolic 100–126; BP diastolic 54–60; PULSE 70–88; RESP 16–18; TEMP 97.2–98; O2SAT 94–96
[2017-02-06] MEDS: CALCIUM CARBONATE 500 MG CHEWABLE TAB CHEW SCH ×4 (05:02→21:51)
[2017-02-06] MEDS: LEVOTHYROXINE SODIUM 50 MCG TAB PO SCH (05:02)
[2017-02-06] MEDS: SUCRALFATE 1 GM TAB PO SCH ×2 (06:03→16:00)
[2017-02-06] MEDS: NYSTATIN 100,000 U/GM PWD 15 GM BTL TOPICAL SCH ×3 (06:03→21:53)
[2017-02-06] MEDS: HYDROCORTISONE 1% LOTN 120 ML BTL TOPICAL SCH ×3 (06:03→21:53)
[2017-02-06] MEDS: MIDODRINE 5 MG TAB PO SCH ×3 (06:03→18:18)
[2017-02-06] MEDS: SODIUM CHLORIDE 0.9% FLUSH 10 ML FLUSH IV FLUSH SCH ×2 (09:00→21:52)
[2017-02-06] MEDS: buPROPion HCL 75 MG TAB PO SCH (09:00)
[2017-02-06] MEDS: CALCITRIOL 0.25 MCG CAP PO SCH (09:48)
[2017-02-06] MEDS: GABAPENTIN 100 MG CAP PO SCH ×3 (09:49→18:17)
[2017-02-06] MEDS: ASPIRIN EC 81 MG TABEC PO SCH (09:49)
[2017-02-06] MEDS: DOCUSATE SODIUM 50 MG/SENNA 8.6 MG TAB PO SCH ×2 (09:49→21:00)
[2017-02-06] MEDS: PANTOPRAZOLE SOD 40 MG DELAYED RELEASE TAB PO SCH (09:49)
[2017-02-06] MEDS: HEPARIN SODIUM - SQ 10,000 UNITS/ML VIAL SQ SCH ×2 (09:54→21:52)
[2017-02-06 11:54] LABS: BICARBONATE 26.1 MEQ/L (21.0-32.0); POTASSIUM 5.6 MEQ/L (3.5-5.1)
[2017-02-06 12:31] LABS: CALCIUM-PROTEIN CORRECTED 6.6 MG/DL (8.5-10.1)
--- NOTE | 2017-02-06 13:27 | HHI.NPPN ---
Subjective History of Present Illness 56 year old BF with Asthma, ESRD on HD 3 times a week Review of Systems General Constitutional: Fatigue Objective Data Data 02/05/17 02/06/17 19:00 07:00 Intake Total 720 ml 480 ml Output Total 325 ml 0 ml Balance 395 ml 480 ml Intake Oral 720 ml 480 ml Output Urine Total 325 ml 0 ml # Voids 1 # Bowel Movements 1 0 Vital Signs Date Time Temp Pulse Resp B/P Pulse Ox O2 Delivery O2 Flow Rate FiO2 02/06/17 12:00 97.6 79 18 111/58 94 02/06/17 08:00 97.4 73 18 126/58 95 02/06/17 04:00 97.9 80 16 101/58 96 02/06/17 00:00 98.0 88 16 101/60 94 02/05/17 20:53 95 02/05/17 20:00 97.4 90 16 120/64 96 02/05/17 19:37 21 02/05/17 17:45 97.3 86 20 95/56 98 -: 02/05/17 0714 02/06/17 1100 Physical Exam General Appearance: Well Developed, Well Nourished Neck Neck Exam: Neck Supple Pulmonary Resp Exam: Decreased Bases Cardiology CV Exam: Regular, Normal Sinus Rhythm Gastrointestinal/Abdomen GI Exam: Soft, Non-Tender, Bowel Sounds Present Extremeties Extremities Exam: Trace Edema Assessment/Plan Problem List: (1) ESRD on hemodialysis Plan: Patient is on hemodialysis MWF She takes a higher dose of calcium supplements due to history of hypocalcemia replace and monitor (2) Hypocalcemia Plan: I will increase the calcium carbonate to 1000 mg 6 times a day Ca gluconate IV ordered (3) Hyperkalemia Plan: This should resolve with dialysis (4) Generalized weakness Plan: This is due to hypocalcemia she was given calcium gluconate Frank Villagran MD February 06, 2017 13:27
--- NOTE | 2017-02-06 13:55 | HHI.PR ---
Subjective Remarks Patient reports feeling better today. Still has some weakness in the legs. No shortness of breath or chest pain. Objective Vitals Vital Signs Date Time Temp Pulse Resp B/P Pulse Ox O2 Delivery O2 Flow Rate FiO2 02/06/17 12:00 97.6 79 18 111/58 94 02/06/17 08:00 97.4 73 18 126/58 95 02/06/17 04:00 97.9 80 16 101/58 96 02/06/17 00:00 98.0 88 16 101/60 94 02/05/17 20:53 95 02/05/17 20:00 97.4 90 16 120/64 96 02/05/17 19:37 21 02/05/17 17:45 97.3 86 20 95/56 98 I/O 02/05/17 02/05/17 02/05/17 02/06/17 02/06/17 02/06/17 07:00 15:00 23:00 07:00 15:00 23:00 Intake Total 480 ml 720 ml 240 ml 240 ml Output Total 325 ml 0 ml Balance 480 ml 395 ml 240 ml 240 ml Intake Oral 480 ml 720 ml 240 ml 240 ml Output Urine Total 325 ml 0 ml # Voids 0 1 # Bowel Movements 0 1 0 0 Result Diagram: 02/05/17 0714 02/06/17 1100 Objective Remarks GENERAL: Obese female in no apparent distress. CARDIOVASCULAR: Normal rate and regular rhythm without murmurs, gallops, or rubs. RESPIRATORY: Good respiratory efforts. Breath sounds equal and clear to auscultation bilaterally. GASTROINTESTINAL: Abdomen soft, non-tender, non-distended. Normal active bowel sounds MUSCULOSKELETAL: Extremities without cyanosis, or edema. NEURO: Alert & Oriented x4 to person, place, time, situation. Moves all ext x4 PSYCH: Appropriate mood and affect. A/P Problem List: (1) ESRD on hemodialysis ICD Code: N18.6 Status: Acute (2) Hypocalcemia ICD Code: E83.51 Status: Resolved (3) Hyperkalemia ICD Code: E87.5 Status: Acute Assessment and Plan 56-year-old female patient with ESRD on HD and recurrent hypocalcemia s/p parathyroidectomy Hypocalcemia: patient is status post parathyroidectomy. She is having recurrent episodes of hypocalcemia. -Received IV calcium. Calcium carbonate increased to 1000 mg 6 times a day per nephrology. Mag levels okay. Appreciate nephrology following hyperkalemia - K+ 6.2. S/p Insulin/D50/Ca on admission -Correcting with dialysis. Patient has dialysis tomorrow morning. ESRD on HD -Appreciated nephrology following. - Dialysis on ,, F schedule DVT Prophylaxis: Heparin sq Discharge Planning Need to correct electrolytes. Have PT eval the patient. Nieves Olivares MD February 06, 2017 13:55
[2017-02-06] MEDS ORDERED: CALCIUM GLUCONATE INJ 2 GM in DEXTROSE 5% IN WATER 100ML INJ 100 ML IV ONE ×2 (14:00)
[2017-02-06] MEDS: ATORVASTATIN 40 MG TAB PO SCH (21:52)
[2017-02-07] VITALS (7 sets, daily range): BP systolic 115–148; BP diastolic 57–83; PULSE 73–104; RESP 16–22; TEMP 97.4–98.3; O2SAT 91–97
[2017-02-07] MEDS: CALCIUM CARBONATE 500 MG CHEWABLE TAB CHEW SCH ×6 (00:44→20:39)
[2017-02-07] MEDS: HYDROCORTISONE 1% LOTN 120 ML BTL TOPICAL SCH ×3 (06:00→20:41)
[2017-02-07] MEDS: NYSTATIN 100,000 U/GM PWD 15 GM BTL TOPICAL SCH ×3 (06:00→20:41)
[2017-02-07] MEDS: LEVOTHYROXINE SODIUM 50 MCG TAB PO SCH (06:04)
[2017-02-07] MEDS: MIDODRINE 5 MG TAB PO SCH ×3 (06:04→17:39)
[2017-02-07] MEDS: SUCRALFATE 1 GM TAB PO SCH ×2 (06:38→17:39)
[2017-02-07 08:09] LABS: BICARBONATE 26.9 MEQ/L (21.0-32.0); POTASSIUM 6.4 MEQ/L (3.5-5.1)
[2017-02-07] MEDS: GABAPENTIN 100 MG CAP PO SCH ×3 (09:00→17:39)
[2017-02-07] MEDS: SODIUM CHLORIDE 0.9% FLUSH 10 ML FLUSH IV FLUSH SCH ×2 (09:00→20:39)
[2017-02-07] MEDS: buPROPion HCL 75 MG TAB PO SCH (09:00)
[2017-02-07] MEDS: ALBUMIN HUMAN 25% 25 GM/100 ML BAGP IV PRN ×2 (09:30→10:30)
--- NOTE | 2017-02-07 10:24 | HHI.NPPN ---
Subjective History of Present Illness 56 year old BF with Asthma, ESRD on HD 3 times a week Review of Systems General Constitutional: Fatigue Objective Data Data 02/06/17 02/07/17 19:00 07:00 Intake Total 720 ml 720 ml Output Total 0 ml 0 ml Balance 720 ml 720 ml Intake Oral 720 ml 720 ml Output Urine Total 0 ml 0 ml # Bowel Movements 0 0 Vital Signs Date Time Temp Pulse Resp B/P Pulse Ox O2 Delivery O2 Flow Rate FiO2 02/07/17 08:00 97.6 104 16 116/57 95 02/07/17 04:17 Room Air 02/07/17 04:17 97.6 75 18 135/65 93 02/06/17 23:15 Room Air 02/06/17 23:15 97.5 80 18 100/56 94 02/06/17 20:16 72 02/06/17 19:45 Room Air 02/06/17 19:45 97.2 77 18 120/56 94 02/06/17 16:00 97.6 74 18 108/54 96 02/06/17 12:00 97.6 79 18 111/58 94 -: 02/05/17 0714 02/07/17 0608 Physical Exam General Appearance: Well Developed, Well Nourished Neck Neck Exam: Neck Supple Pulmonary Resp Exam: Decreased Bases Cardiology CV Exam: Regular, Normal Sinus Rhythm Gastrointestinal/Abdomen GI Exam: Soft, Non-Tender, Bowel Sounds Present Extremeties Extremities Exam: Trace Edema Assessment/Plan Problem List: (1) ESRD on hemodialysis Plan: Patient is on hemodialysis MWF She takes a higher dose of calcium supplements due to history of hypocalcemia Ca improved K 6.4 was on unrestricted K diet placed by Hospitalist I will restrict her diet on k seen during dialysis UF 4.5 l ON 1 k (2) Hypocalcemia Plan: I will increase the calcium carbonate to 1000 mg 6 times a day Ca gluconate IV ordered (3) Hyperkalemia Plan: This should resolve with dialysis (4) Generalized weakness Plan: This is due to hypocalcemia she was given calcium gluconate Frank Villagran MD February 07, 2017 10:24
[2017-02-07] MEDS: HEPARIN SODIUM - IV 10,000 UNITS/10 ML VIAL PRN (11:28)
[2017-02-07] MEDS: GENTAMICIN SULFATE (DIALYSIS USE ONLY) 20 MG/2 ML VIAL IV PRN (11:29)
--- NOTE | 2017-02-07 13:27 | HHI.PR ---
Subjective Remarks Patient reports she is feeling okay. Still having some lateral lower extremity weakness. No shortness of breath. No nausea or vomiting. Objective Vitals Vital Signs Date Time Temp Pulse Resp B/P Pulse Ox O2 Delivery O2 Flow Rate FiO2 02/07/17 08:00 97.6 104 16 116/57 95 02/07/17 04:17 Room Air 02/07/17 04:17 97.6 75 18 135/65 93 02/06/17 23:15 Room Air 02/06/17 23:15 97.5 80 18 100/56 94 02/06/17 20:16 72 02/06/17 19:45 Room Air 02/06/17 19:45 97.2 77 18 120/56 94 02/06/17 16:00 97.6 74 18 108/54 96 I/O 02/06/17 02/06/17 02/06/17 02/07/17 02/07/17 02/07/17 07:00 15:00 23:00 07:00 15:00 23:00 Intake Total 240 ml 720 ml 480 ml 240 ml Output Total 0 ml 0 ml 0 ml 0 ml 4000 ml Balance 240 ml 720 ml 480 ml 240 ml -4000 ml Intake Oral 240 ml 720 ml 480 ml 240 ml Output Urine Total 0 ml 0 ml 0 ml 0 ml Hemodialysis 4000 ml # Bowel Movements 0 0 0 0 Result Diagram: 02/05/17 0714 02/07/17 0608 Objective Remarks GENERAL: Obese female in no apparent distress. CARDIOVASCULAR: Normal rate and regular rhythm without murmurs, gallops, or rubs. RESPIRATORY: Good respiratory efforts. Breath sounds equal and clear to auscultation bilaterally. GASTROINTESTINAL: Abdomen soft, non-tender, non-distended. Normal active bowel sounds MUSCULOSKELETAL: Extremities without cyanosis, or edema. NEURO: Alert & Oriented x4 to person, place, time, situation. Moves all ext x4 PSYCH: Appropriate mood and affect. A/P Problem List: (1) ESRD on hemodialysis ICD Code: N18.6 Status: Acute (2) Hypocalcemia ICD Code: E83.51 Status: Resolved (3) Hyperkalemia ICD Code: E87.5 Status: Acute Assessment and Plan 56-year-old female patient with ESRD on HD and recurrent hypocalcemia s/p parathyroidectomy Hypocalcemia: patient is status post parathyroidectomy. She is having recurrent episodes of hypocalcemia. - Received IV calcium. Calcium carbonate increased to 1000 mg 6 times a day per nephrology. Mag levels okay. Appreciate nephrology following hyperkalemia: - S/p Insulin/D50/Ca on admission - Nephrology following. On HD MWF. Restrict K in diet per Nephrology. ESRD on HD -Appreciated nephrology following. - Dialysis on M,W, F schedule DVT Prophylaxis: Heparin sq Discharge Planning Pending improvement in electrolytes. Nieves Olivares MD February 07, 2017 13:27
[2017-02-07] MEDS: PANTOPRAZOLE SOD 40 MG DELAYED RELEASE TAB PO SCH (15:02)
[2017-02-07] MEDS: CALCITRIOL 0.25 MCG CAP PO SCH (15:02)
[2017-02-07] MEDS: DOCUSATE SODIUM 50 MG/SENNA 8.6 MG TAB PO SCH ×2 (15:02→20:39)
[2017-02-07] MEDS: ASPIRIN EC 81 MG TABEC PO SCH (15:02)
[2017-02-07] MEDS: HEPARIN SODIUM - SQ 10,000 UNITS/ML VIAL SQ SCH ×2 (15:03→20:40)
[2017-02-07] MEDS: ATORVASTATIN 40 MG TAB PO SCH (20:39)
[2017-02-08] VITALS (8 sets, daily range): BP systolic 106–146; BP diastolic 55–92; PULSE 69–97; RESP 16–20; TEMP 97.3–98.2; O2SAT 92–96
[2017-02-08] MEDS: CALCIUM CARBONATE 500 MG CHEWABLE TAB CHEW SCH ×7 (00:36→23:47)
[2017-02-08] MEDS: MIDODRINE 5 MG TAB PO SCH ×3 (05:53→18:04)
[2017-02-08] MEDS: NYSTATIN 100,000 U/GM PWD 15 GM BTL TOPICAL SCH ×3 (05:54→20:06)
[2017-02-08] MEDS: LEVOTHYROXINE SODIUM 50 MCG TAB PO SCH (05:54)
[2017-02-08] MEDS: SUCRALFATE 1 GM TAB PO SCH ×2 (05:54→18:04)
[2017-02-08] MEDS: HYDROCORTISONE 1% LOTN 120 ML BTL TOPICAL SCH ×3 (05:54→20:05)
[2017-02-08 07:20] LABS: BICARBONATE 30.1 MEQ/L (21.0-32.0); POTASSIUM 5.4 MEQ/L (3.5-5.1)
[2017-02-08] MEDS: buPROPion HCL 75 MG TAB PO SCH (08:34)
[2017-02-08] MEDS: DOCUSATE SODIUM 50 MG/SENNA 8.6 MG TAB PO SCH ×2 (08:34→20:04)
[2017-02-08] MEDS: GABAPENTIN 100 MG CAP PO SCH ×3 (08:34→18:04)
[2017-02-08] MEDS: ASPIRIN EC 81 MG TABEC PO SCH (08:34)
[2017-02-08] MEDS: CALCITRIOL 0.25 MCG CAP PO SCH (08:34)
[2017-02-08] MEDS: SODIUM CHLORIDE 0.9% FLUSH 10 ML FLUSH IV FLUSH SCH ×2 (08:35→20:05)
[2017-02-08] MEDS: HEPARIN SODIUM - SQ 10,000 UNITS/ML VIAL SQ SCH ×2 (08:35→20:04)
[2017-02-08] MEDS: PANTOPRAZOLE SOD 40 MG DELAYED RELEASE TAB PO SCH (08:35)
--- NOTE | 2017-02-08 13:08 | HHI.NPPN ---
Subjective History of Present Illness 56 year old BF with Asthma, ESRD on HD 3 times a week Review of Systems General Constitutional: Fatigue Objective Data Data 02/07/17 02/08/17 19:00 07:00 Intake Total 240 ml 1200 ml Output Total 4000 ml 0 ml Balance -3760 ml 1200 ml Intake Oral 240 ml 1200 ml Output Urine Total 0 ml Hemodialysis 4000 ml # Voids 1 # Bowel Movements 1 1 Vital Signs Date Time Temp Pulse Resp B/P Pulse Ox O2 Delivery O2 Flow Rate FiO2 02/08/17 12:00 97.8 74 20 136/66 95 02/08/17 08:10 Room Air 02/08/17 08:00 98.0 74 20 146/74 96 02/08/17 05:10 97.9 81 16 132/63 92 02/08/17 00:00 98.0 69 16 116/90 95 02/07/17 20:24 98.0 73 16 148/83 97 02/07/17 20:00 Room Air 02/07/17 20:00 73 02/07/17 16:00 98.3 81 22 135/80 95 -: 02/05/17 0714 02/08/17 0609 Physical Exam General Appearance: Well Developed, Well Nourished Neck Neck Exam: Neck Supple Pulmonary Resp Exam: Decreased Bases Cardiology CV Exam: Regular, Normal Sinus Rhythm Gastrointestinal/Abdomen GI Exam: Soft, Non-Tender, Bowel Sounds Present Extremeties Extremities Exam: Trace Edema Assessment/Plan Problem List: (1) ESRD on hemodialysis Plan: Patient is on hemodialysis MWF She takes a higher dose of calcium supplements due to history of hypocalcemia Ca improved K 5.4 on restricted K diet give Kayexalate next dialysis on Sunday (2) Hypocalcemia Plan: calcium carbonate to 1000 mg 6 times a day (3) Hyperkalemia Plan: This should resolve with dialysis Frank Villagran MD Feb 08, 2017 13:08
[2017-02-08] MEDS ORDERED: SODIUM POLYSTYRENE SULFONATE SUSP 15 GM/60 ML CUP PO ONE (13:30)
--- NOTE | 2017-02-08 15:49 | HHI.PR ---
Subjective Remarks Follow-up for hypocalcemia No high further flexure, denies any chest pain or shortness of breath, no nausea or vomiting. Objective Vitals Vital Signs Date Time Temp Pulse Resp B/P Pulse Ox O2 Delivery O2 Flow Rate FiO2 02/08/17 12:00 97.8 74 20 136/66 95 02/08/17 08:10 Room Air 02/08/17 08:00 70 02/08/17 08:00 98.0 74 20 146/74 96 02/08/17 05:10 97.9 81 16 132/63 92 02/08/17 00:00 98.0 69 16 116/90 95 02/07/17 20:24 98.0 73 16 148/83 97 02/07/17 20:00 Room Air 02/07/17 20:00 73 02/07/17 16:00 98.3 81 22 135/80 95 I/O 02/07/17 02/07/17 02/07/17 02/08/17 02/08/17 02/08/17 07:00 15:00 23:00 07:00 15:00 23:00 Intake Total 240 ml 240 ml 480 ml 720 ml 465 ml Output Total 0 ml 4000 ml 0 ml 0 ml Balance 240 ml -3760 ml 480 ml 720 ml 465 ml Intake Oral 240 ml 240 ml 480 ml 720 ml 465 ml Output Urine Total 0 ml 0 ml 0 ml Hemodialysis 4000 ml # Voids 1 # Bowel Movements 0 1 1 0 1 Result Diagram: 02/05/17 0714 02/08/17 0609 Objective Remarks Not in distress, well-nourished, looks stated age PERRL, pink conjunctiva without injection, anicteric Nose without bleeding, airway patent, oropharynx clear Supple neck, no masses or thyromegaly, trachea midline Normal rate and regular rhythm, no murmurs gallops or rubs appreciated. Clear to auscultation and symmetric bilaterally, normal respiratory effort. Normal bowel sounds, soft, non-tender, nondistended, no guarding. Extremities without clubbing, cyanosis, or edema. No rash of generalized distribution. Skin is warm and dry. AAO x3, no cranial nerve deficits, moves all 4 extremities, no focal neurologic deficits (-) [place] sign A/P Problem List: (1) ESRD on hemodialysis ICD Code: N18.6 Status: Acute (2) Hypocalcemia ICD Code: E83.51 Status: Resolved (3) Hyperkalemia ICD Code: E87.5 Status: Acute Assessment and Plan 56-year-old female patient with ESRD on HD and recurrent hypocalcemia s/p parathyroidectomy Hypocalcemia: patient is status post parathyroidectomy. She is having recurrent episodes of hypocalcemia. - Received IV calcium. Continue Calcium carbonate increased to 1000 mg 6 times a day per nephrology. Mag levels okay. Appreciate nephrology following, for dialysis tomorrow and possible discharge. hyperkalemia: - S/p Insulin/D50/Ca on admission - Nephrology following. On HD MWF. Restrict K in diet per Nephrology. Kayexalate today, dialysis tomorrow ESRD on HD -Appreciated nephrology following. - Dialysis on M,W, F schedule DVT Prophylaxis: Heparin sq Discharge Planning Discharge Planning Discharge tomorrow after dialysis and cleared by nephrology Riki Knight MD Feb 08, 2017 15:49
[2017-02-08] MEDS: ATORVASTATIN 40 MG TAB PO SCH (20:04)
[2017-02-09 00:15] VITALS: PULSE 89
[2017-02-09 04:44] VITALS: BP 116/58; PULSE 87; RESP 18; TEMP 98.4; O2SAT 94
[2017-02-09] MEDS: CALCIUM CARBONATE 500 MG CHEWABLE TAB CHEW SCH ×3 (04:53→14:39)
[2017-02-09] MEDS: LEVOTHYROXINE SODIUM 50 MCG TAB PO SCH (04:53)
[2017-02-09] MEDS: MIDODRINE 5 MG TAB PO SCH ×2 (04:55→14:39)
[2017-02-09] MEDS: NYSTATIN 100,000 U/GM PWD 15 GM BTL TOPICAL SCH ×2 (04:56→14:43)
[2017-02-09] MEDS: HYDROCORTISONE 1% LOTN 120 ML BTL TOPICAL SCH ×2 (04:56→14:43)
[2017-02-09] MEDS: SUCRALFATE 1 GM TAB PO SCH (05:59)
[2017-02-09 08:00] VITALS: BP 141/78; PULSE 76; PULSE 78; RESP 20; TEMP 97.7; O2SAT 94
[2017-02-09] MEDS: PANTOPRAZOLE SOD 40 MG DELAYED RELEASE TAB PO SCH (08:09)
[2017-02-09] MEDS: GABAPENTIN 100 MG CAP PO SCH ×2 (08:09→14:39)
[2017-02-09] MEDS: buPROPion HCL 75 MG TAB PO SCH (08:10)
[2017-02-09] MEDS: CALCITRIOL 0.25 MCG CAP PO SCH (08:10)
[2017-02-09] MEDS: ASPIRIN EC 81 MG TABEC PO SCH (08:10)
[2017-02-09] MEDS: DOCUSATE SODIUM 50 MG/SENNA 8.6 MG TAB PO SCH (08:10)
[2017-02-09] MEDS: HEPARIN SODIUM - SQ 10,000 UNITS/ML VIAL SQ SCH (08:11)
[2017-02-09] MEDS: SODIUM CHLORIDE 0.9% FLUSH 10 ML FLUSH IV FLUSH SCH (08:11)
[2017-02-09] MEDS ORDERED: SENN1TAB PO (08:48)
--- NOTE | 2017-02-09 09:00 | HHI.DS ---
Discharge Summary Admission Date February 04, 2017 at 21:32 Discharge Date: Feb 09, 2017 Admitting Diagnosis hyperkalemia, hypocalcemia, facial swelling (1) ESRD on hemodialysis ICD Code: N18.6 Diagnosis: Secondary (2) Hypocalcemia ICD Code: E83.51 Diagnosis: Principal (3) Hyperkalemia ICD Code: E87.5 Diagnosis: Secondary Procedures None other than hemodialysis Brief History - From Admission This is a 56 year old female with a PMH of HTN, COPD, CHF (Echo 05/11/16 w/ EF 55- 60%), ESRD on HD M/W/F, h/o Parathyroidectomy and Recurrent Hypocalcemia who presented to the ER with complaints of generalized weakness, nausea and facial swelling x1 day. States she had HD on Sunday w/ no complications, 2L removed. Follows w/ Dr. Villagran as outpatient. On arrival, BP 92/46, HR 86, O2 sat 99% on 2L NC, Afebrile. S/p IVF w/ some improvement. CBC unremarkable. K+ 6.2, s/p Insulin/D50. Ca 6.7, Corrected 6.3, s/p Ca replacement in ER. Creatinine 10.69 , at baseline. CXR w/ no acute findings. CBC/BMP: 02/05/17 0714 02/08/17 0609 Significant Findings Laboratory Tests Test 02/06/17 02/07/17 02/08/17 11:00 06:08 06:09 Potassium Level 5.6 MEQ/L 6.4 MEQ/L 5.4 MEQ/L (3.5-5.1) (3.5-5.1) (3.5-5.1) Blood Urea Nitrogen 75 MG/DL (7-18) 85 MG/DL (7-18) 59 MG/DL (7-18) Creatinine 9.79 MG/DL 10.74 MG/DL 8.45 MG/DL (0.50-1.00) (0.50-1.00) (0.50-1.00) Estimat Glomerular Filtration 5 ML/MIN (>89) 4 ML/MIN (>89) 6 ML/MIN (>89) Rate Random Glucose 124 MG/DL 70 MG/DL (74-106) (74-106) Calcium Level 6.9 MG/DL 7.4 MG/DL 7.9 MG/DL (8.5-10.1) (8.5-10.1) (8.5-10.1) Protein Corrected Calcium 6.6 MG/DL 7.0 MG/DL (8.5-10.1) (8.5-10.1) PE at Discharge Not in distress, well-nourished, looks stated age PERRL, pink conjunctiva without injection, anicteric Nose without bleeding, airway patent, oropharynx clear Supple neck, no masses or thyromegaly, trachea midline Normal rate and regular rhythm, no murmurs gallops or rubs appreciated. Clear to auscultation and symmetric bilaterally, normal respiratory effort. Normal bowel sounds, soft, non-tender, nondistended, no guarding. Extremities without clubbing, cyanosis, or edema. No rash of generalized distribution. Skin is warm and dry. AAO x3, no cranial nerve deficits, moves all 4 extremities, no focal neurologic deficits (-) [place] sign Pt update on day of discharge No overnight events, no fever or chills. No hyperflexion. No shortness of breath, fever or lower extremity swelling. Excited to go to rehabilitation today. Hospital Course 56-year-old female patient with ESRD on HD and recurrent hypocalcemia s/p parathyroidectomy admitted for severe hypocalcemia. Upon ED admission, the patient received intravenous calcium and calcium carbonate was increased to 6 times a day. Magnesium levels are okay. Nephrology was consulted and dialysis was initiated. Patient also had hyperkalemia. Patient received a cocktail of insulin and D50. Patient also had Kayexalate, potassium improved including calcium after replacement. Patient continued her usual scheduled dialysis and will be discharged to rehabilitation for therapy after clearance from nephrology. Pt Condition on Discharge: Good Discharge Disposition: Discharge to SNF Discharge Time: > 30 minutes Discharge Instructions DIET: Follow Instructions for: Dialysis Diet Activities you can perform: Regular-No Restrictions Follow up Referrals: SNF/[facility]/ - 2-3 Days New Medications: Sennosides-Docusate Sodium (Senna Plus 8.6-50 mg) 1 Tab Tab 1 TAB PO BID CONSTIPATION #60 TAB Continued Medications: Aspirin DR (Aspirin EC) 81 Mg Tabdr 81 MG PO DAILY Prevent Blood Clot #30 TAB Atorvastatin (Atorvastatin) 40 Mg Tab 40 MG PO HS Cholesterol Management #30 Ref 0 TAB Bupropion HCl (Bupropion HCl) 75 Mg Tab 75 MG PO DAILY Control Depression Ref 0 TAB Calcitriol (Rocaltrol) 0.25 Mcg Cap 0.5 MCG PO DAILY hypocalcemia #30 CAP Calcium Carbonate (Antacid) (Calcium Carbonate (Antacid)) 500 Mg Chew 1000 MG CHEW Q4HR Calcium Supplement #120 EA Cyclobenzaprine (Flexeril) 10 Mg Tab 10 MG PO BID PRN MUSCLE SPASM #14 Ref 0 TAB Gabapentin (Gabapentin) 100 Mg Cap 200 MG PO TID #60 Ref 0 CAP Hydrocortisone (Topical) (Hydroskin) 1 % Lot 1 APPLIC TOPICAL Q8HR Rash #1 TUBE Levothyroxine (Levothyroxine) 50 Mcg Tab 50 MCG PO DAILY Thyroid #30 Ref 0 TAB Midodrine (Midodrine) 5 Mg Tab 10 MG PO TID@07,12,17 VS #30 TAB Nystatin Topical (Nystop Topical) 100,000 Unit/Gm Powd 1 APPLIC TOPICAL Q8HR Rash #1 TUBE Pantoprazole (Pantoprazole) 40 Mg Tab 40 MG PO DAILY Reflux #30 Ref 0 TAB Sucralfate (Sucralfate) 1 Gm Tab 1 GM PO BIDAC on empty stomach Duodenal ulcer #120 Ref 0 TAB Discontinued Medications: Calcitriol (Rocaltrol) 0.25 Mcg Cap 0.25 MCG PO DAILY Calcium Supplement #30 Ref 0 CAP Calcium Carbonate (Antacid) (Calcium Carbonate (Antacid)) 500 Mg Chew 500 MG CHEW 5 TIMES A DAY RENAL Days 30 Riki Cabrera MD Feb 09, 2017 09:00
[2017-02-09 09:27] LABS: BICARBONATE 28.5 MEQ/L (21.0-32.0); POTASSIUM 5.3 MEQ/L (3.5-5.1)
[2017-02-09] MEDS: ALBUMIN HUMAN 25% 25 GM/100 ML BAGP IV PRN (10:08)
--- NOTE | 2017-02-09 11:43 | HHI.NPPN ---
Subjective History of Present Illness 56 year old BF with Asthma, ESRD on HD 3 times a week Additional Remarks hypocalcemia and hyperkalemia Review of Systems General Constitutional: Fatigue Objective Data Data 02/08/17 02/09/17 18:59 06:59 Intake Total 465 ml 728 ml Output Total 0 ml Balance 465 ml 728 ml Intake Oral 465 ml 720 ml IV Total 8 ml Output Urine Total 0 ml # Voids 3 # Bowel Movements 1 0 Vital Signs Date Time Temp Pulse Resp B/P Pulse Ox O2 Delivery O2 Flow Rate FiO2 02/09/17 08:00 Nasal Cannula 2.00 02/09/17 08:00 97.7 78 20 141/78 94 02/09/17 04:44 98.4 87 18 116/58 94 02/09/17 00:15 89 02/08/17 23:40 97.6 83 16 106/55 93 02/08/17 22:20 72 16 138/65 95 02/08/17 20:25 98.2 97 16 129/80 95 02/08/17 20:05 Room Air 02/08/17 16:00 97.3 79 20 136/92 96 02/08/17 12:00 97.8 74 20 136/66 95 -: 02/05/17 0714 02/09/17 0617 Physical Exam General Appearance: Well Developed, Well Nourished Neck Neck Exam: Neck Supple Pulmonary Resp Exam: Decreased Bases Cardiology CV Exam: Regular, Normal Sinus Rhythm Gastrointestinal/Abdomen GI Exam: Soft, Non-Tender, Bowel Sounds Present Extremeties Extremities Exam: Trace Edema Assessment/Plan Problem List: (1) ESRD on hemodialysis Plan: Patient is on hemodialysis MWF She takes a higher dose of calcium supplements due to history of hypocalcemia Ca improved K 5.3 on restricted K diet dialysis is in progress on 09/11 K hco3 uf 4 L (2) Hypocalcemia Plan: calcium carbonate to 1000 mg 6 times a day (3) Hyperkalemia Plan: This should resolve with dialysis Frank Villagran MD Feb 09, 2017 11:43
[2017-02-09 12:00] VITALS: BP 139/92; PULSE 72; RESP 20; TEMP 98.1; O2SAT 93
[2017-02-09] MEDS: GENTAMICIN SULFATE (DIALYSIS USE ONLY) 20 MG/2 ML VIAL IV PRN (12:06)
[2017-02-09] MEDS: HEPARIN SODIUM - IV 10,000 UNITS/10 ML VIAL PRN (12:07)
== END 2017-02-09 16:16 | DRG 640 ==
LOC: NEPC 19:06 → NEDA 21:32 → N04B 22:45 → N04A 02-07 12:57
PROVIDERS: ADMIT Hospitalist; ATTEND Hospitalist
PROC: 5A1D60Z (ICD-10-PCS; principal; 2017-02-05)
DX: E83.51 Hypocalcemia (principal); I12.0 Hypertensive chronic kidney disease with stage 5 chronic kidney disease or end stage renal disease; N18.6 End stage renal disease; E11.22 Type 2 diabetes mellitus with diabetic chronic kidney disease; E66.01 Morbid (severe) obesity due to excess calories; Z68.43 Body mass index [BMI] 50.0-59.9, adult; E87.5 Hyperkalemia; Z99.2 Dependence on renal dialysis; F17.210 Nicotine dependence, cigarettes, uncomplicated; J44.9 Chronic obstructive pulmonary disease, unspecified; I50.9 Heart failure, unspecified; Z79.82 Long term (current) use of aspirin
CPT/HCPCS: 71010; 80048; 80053; 82550; 82948; 83735; 84100; 84132; 84155; 84484; 85025; 85610; 85730; 90935; 93005; 94664; 96374; 96375; J0610; J1580; J1644; J1815; J2150; J2405; J7050; P9047

== ENCOUNTER 2017-04-04 12:43 | Inpatient (IN) | payer MEDICARE, OTHER ==
[2017-04-04] VITALS (8 sets, daily range): BP systolic 89–117; BP diastolic 52–65; PULSE 90–99; RESP 16–20; TEMP 96.3–97.8; O2SAT 97–100
[~2017-04-04 12:43] MED LIST changes: +SENN1TAB PO
--- NOTE | 2017-04-04 14:09 | PD ---
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 The patient is just starting her dialysis today at [facility] when she "didn't feel right." She had a syncopal event and woke en route. C/O intermittent substernal CP for the past week, sharp, lasting for a minute at a time 2X a day. No aggravating/alleviating factors. No pain currently. PFSH Past Medical History Hx Anticoagulant Therapy: No Anemia: Yes Arthritis: Yes Asthma: Yes Autoimmune Disease: No Blood Disorders: No Anxiety: Yes Heart Rhythm Problems: No Cancer: No Cardiovascular Problems: Yes (HIGH CHOLESTEROL ) High Cholesterol: Yes Chemotherapy: No Chest Pain: Yes Congestive Heart Failure: Yes COPD: Yes Cerebrovascular Accident: No Diabetes: Yes Dialysis: Yes (M/W/F) Diminished Hearing: No Endocrine: Yes Gastrointestinal Disorders: Yes (ULCERS) GERD: Yes Glaucoma: No Genitourinary: Yes (ESRD, Dialysis) Headaches: Yes Hepatitis: No Hiatal Hernia: No Hypertension: Yes (hx of not now) Immune Disorder: No Implanted Vascular Access Dvce: Yes (R FEMORAL AV FISTULA) Kidney Stones: No Musculoskeletal: Yes (Arthritis) Neurologic: No Psychiatric: Yes Reproductive: No Respiratory: Yes (COPD) Immunizations Current: Yes Migraines: No Myocardial Infarction: No Pneumonia: Yes (HX) Radiation Therapy: Yes Renal Failure: Yes (CRF) Seizures: No Sickle Cell Disease: No Sleep Apnea: Yes Thyroid Disease: Yes Ulcer: Yes PNEUMOCCOCAL Vaccine (Year): 3 Menopausal: Yes : 3 Para: 3 Miscarriage: 0 : 0 Past Surgical History Abdominal Surgery: Yes AICD: No Appendectomy: Yes Arteriovenous Shunt: Yes (right femoral av fistula) Body Medical Devices: Old nonfunctioning NANCY fistula. Current- Permacath Right Groin Cardiac Surgery: No Cholecystectomy: Yes Ear Surgery: No Endocrine Surgery: Yes (THYROIDECTOMY) Eye Surgery: Yes (LASIK right cataract removed / left removed) Genitourinary Surgery: Yes (Peritoneal Abdominal Catheter removed april 2015) Gynecologic Surgery: Yes (Partial Hysterectomy and Appendectomy ) Hysterectomy: Yes (PARTIAL ) Insulin Pump: No Joint Replacement: No Neurologic Surgery: No Oral Surgery: Yes (ALL TEETH REMOVED) Pacemaker: No Thoracic Surgery: No Other Surgery: Yes (RIGHT HAND, APPENDECTOMY, GALL BLADDER REMOVAL) Social History Alcohol Use: Yes (OCCASIONALLY ) Tobacco Use: Yes Substance Use: No Allergies-Medications (Allergen,Severity, Reaction): Coded Allergies: Levaquin (Verified Allergy, Severe, Anaphylaxis, 04/04/17) ANAPHYLAXIS *MDRO Multi-Drug Resistant Organism (Verified Adverse Reaction, Unknown, Cleared, 04/04/17) MRSA (wound) - 04/2011, (blood) - 10/2011 MRSA PCR Screens NEGATIVE - 02/17/15 & 02/19/15 CLEARED PER INFECTION CONTROL Reported Meds & Prescriptions Reported Meds & Active Scripts Active Rocaltrol (Calcitriol) 0.25 Mcg Cap 0.5 Mcg PO DAILY Flexeril (Cyclobenzaprine HCl) 10 Mg Tab 10 Mg PO BID PRN Calcium Carbonate (Antacid) 500 Mg Chew 1,000 Mg CHEW Q4HR Midodrine 5 Mg Tab 10 Mg PO TID@,, Aspirin EC (Aspirin) 81 Mg Tabdr 81 Mg PO DAILY Reported Proair Hfa 8.5 GM Inh (Albuterol Sulfate) 90 Mcg/Act Aer 2 Puff INH Q6H PRN 108 mcg/actuation Trazodone (Trazodone HCl) 100 Mg Tablet 100 Mg PO HS Gabapentin 100 Mg Cap 100 Mg PO TID Sucralfate 1 Gm Tab 1 Gm PO BIDAC on empty stomach Pantoprazole (Pantoprazole Sodium) 40 Mg Tab 40 Mg PO DAILY Levothyroxine (Levothyroxine Sodium) 50 Mcg Tab 50 Mcg PO DAILY Bupropion HCl 75 Mg Tab 75 Mg PO DAILY Atorvastatin (Atorvastatin Calcium) 40 Mg Tab 40 Mg PO HS Review of Systems Except as stated in HPI: all other systems reviewed are Neg Physical Exam Narrative GENERAL: Obese female in no acute distress SKIN: Warm and dry. HEAD: Atraumatic. Normocephalic. EYES: Pupils equal and round. No scleral icterus. No injection or drainage. ENT: No nasal bleeding or discharge. Mucous membranes pink and moist. NECK: Trachea midline. No JVD. CARDIOVASCULAR: Regular rate and rhythm. No murmur appreciated. RESPIRATORY: No accessory muscle use. Clear to auscultation. Breath sounds equal bilaterally. GASTROINTESTINAL: Abdomen soft, non-tender, nondistended. Hepatic and splenic margins not palpable. MUSCULOSKELETAL: No obvious deformities. Chest wall tenderness is noted. There is no lower extremity edema. NEUROLOGICAL: Awake and alert. No obvious cranial nerve deficits. Motor grossly within normal limits. Normal speech. PSYCHIATRIC: Appropriate mood and affect; insight and judgment normal. Data Data Last Documented VS Vital Signs Date Time Temp Pulse Resp B/P Pulse Ox O2 Delivery O2 Flow Rate FiO2 04/04/17 15:23 97.8 93 17 103/57 100 Room Air Orders Electrocardiogram (04/04/17 14:05) Complete Blood Count With Diff (04/04/17 14:05) Comprehensive Metabolic Panel (04/04/17 14:05) Magnesium (Mg) (04/04/17 14:05) B-Type Natriuretic Peptide (04/04/17 14:05) Ckmb (Isoenzyme) Profile (04/04/17 14:05) Troponin I (04/04/17 14:05) Chest, Single Ap (04/04/17 14:05) Blood Glucose (04/04/17 14:05) Ecg Monitoring (04/04/17 14:05) Iv Access Insert/Monitor (04/04/17 14:05) Oximetry (04/04/17 14:05) Sodium Chloride 0.9% Flush (Ns Flush) (04/04/17 14:15) Phosphorus (Po4) (04/04/17 14:05) Lactic Acid Sepsis Protocol (04/04/17 14:43) Blood Culture (04/04/17 14:43) CKMB (04/04/17 14:25) CKMB% (04/04/17 14:25) Potassium, Serum (K) (04/04/17 18:14) Calcium Gluconate Inj (Calcium Gluconate (04/04/17 15:15) Insulin Human Regular Inj (Novolin R Inj (04/04/17 15:30) Dextrose 50% In Dalila (Vial) Inj (D50w (Vi (04/04/17 15:15) Labs Laboratory Tests Test 04/04/17 14:25 White Blood Count 17.8 TH/MM3 Red Blood Count 4.22 MIL/MM3 Hemoglobin 12.3 GM/DL Hematocrit 39.3 % Mean Corpuscular Volume 93.2 FL Mean Corpuscular Hemoglobin 29.2 PG Mean Corpuscular Hemoglobin 31.3 % Concent Red Cell Distribution Width 15.4 % Platelet Count 223 TH/MM3 Mean Platelet Volume 7.7 FL Neutrophils (%) (Auto) 86.5 % Lymphocytes (%) (Auto) 2.7 % Monocytes (%) (Auto) 6.1 % Eosinophils (%) (Auto) 4.3 % Basophils (%) (Auto) 0.4 % Neutrophils # (Auto) 15.4 TH/MM3 Lymphocytes # (Auto) 0.5 TH/MM3 Monocytes # (Auto) 1.1 TH/MM3 Eosinophils # (Auto) 0.8 TH/MM3 Basophils # (Auto) 0.1 TH/MM3 CBC Comment DIFF FINAL Differential Comment Sodium Level 139 MEQ/L Potassium Level 5.9 MEQ/L Chloride Level 102 MEQ/L Carbon Dioxide Level 24.2 MEQ/L Anion Gap 13 MEQ/L Blood Urea Nitrogen 68 MG/DL Creatinine 9.86 MG/DL Estimat Glomerular Filtration 5 ML/MIN Rate Random Glucose 80 MG/DL Calcium Level 6.7 MG/DL Protein Corrected Calcium MG/DL Phosphorus Level 6.0 MG/DL Magnesium Level 2.1 MG/DL Total Bilirubin 0.5 MG/DL Aspartate Amino Transf 30 U/L (AST/SGOT) Alanine Aminotransferase 44 U/L (ALT/SGPT) Alkaline Phosphatase 88 U/L Total Creatine Kinase 143 U/L Creatine Kinase MB LESS THAN 0.5 NG/ML Troponin I LESS THAN 0.02 NG/ML Total Protein 8.8 GM/DL Albumin 3.3 GM/DL [facility] Medical Decision Making Medical Screen Exam Complete: Yes Emergency Medical Condition: Yes Medical Record Reviewed: Yes Differential Diagnosis Vasovagal syncope, hypotension, electrolyte abnormality, arrhythmia, acute coronary syndrome, aortic dissection Narrative Course 56 year old female presents after having a syncopal episode during the initiation of dialysis today. She also complains of intermittent chest pain for the past week. The episodes of pain last for about a minute at a time and resolves spontaneously. No chest pain today. No other complaints. The patient was placed on ECG monitoring pulse oximetry. A 12-lead EKG has been ordered. Basic lab work has been ordered. Lab work is been reviewed. She does have leukocytosis, white count is 17.8, no obvious source of infection, blood cultures and lactic acid been added on. Her potassium is 5.9, calcium is 6.7, BUN 68, creatinine 9.86. Therefore the patient was given 1 g of calcium gluconate, 1 amp of D50 and insulin to help correct the hyperkalemia and hypocalcemia. Ultimate, given this patient's syncope, intermittent chest pain, hyperkalemia, leukocytosis and hypocalcemia, plan would be to admit the patient for observation. I discussed with the nurse practitioner on-call for Dr. Bustos who is agreeable. Diagnosis Primary Impression: Chest pain Qualified Code: R07.9 - Chest pain, unspecified type Additional Impressions: Hyperkalemia Hypocalcemia Syncope Qualified Code: R55 - Syncope, unspecified syncope type Leukocytosis Qualified Code: D72.829 - Leukocytosis, unspecified type Admitting Information Admitting Physician Requests: Observation Herbert Moe Apr 04, 2017 14:09
[2017-04-04] MEDS ORDERED: SODIUM CHLORIDE 0.9% FLUSH 10 ML FLUSH IVF PRN (14:15)
[2017-04-04 14:40] LABS: AUTOMATED NEUTROPHIL # 15.4 TH/MM3 (1.8-7.7); BASOPHIL # 0.1 TH/MM3 (0-0.2); BASOPHIL % 0.4 % (0.0-2.0); EOSINOPHIL # 0.8 TH/MM3 (0-0.4); EOSINOPHIL % 4.3 % (0.0-4.0); HEMATOCRIT 39.3 % (35.0-46.0); HEMO FLAGS DIFF FINAL; LYMPH % 2.7 % (9.0-44.0); LYMPHOCYTE # 0.5 TH/MM3 (1.0-4.8); MEAN CELL VOLUME 93.2 FL (80.0-100.0); MEAN CORPUSCULAR HEMOGLOBIN 29.2 PG (27.0-34.0); MEAN CORPUSCULAR HGB CONC 31.3 % (32.0-36.0); MONO % 6.1 % (0.0-8.0); NEUT % 86.5 % (16.0-70.0); PLATELET COUNT 223 TH/MM3 (150-450); RED BLOOD COUNT 4.22 MIL/MM3 (4.00-5.30); RED CELL DISTRIBUTION WIDTH 15.4 % (11.6-17.2); WHITE BLOOD COUNT 17.8 TH/MM3 (4.0-11.0)
[2017-04-04 15:05] LABS: ALKALINE PHOSPHATASE 88 U/L (45-117); ALT (GPT) 44 U/L (10-53); ANION GAP 13 MEQ/L (5-15); AST (GOT) 30 U/L (15-37); BICARBONATE 24.2 MEQ/L (21.0-32.0); BLOOD UREA NITROGEN 68 MG/DL (7-18); CHLORIDE 102 MEQ/L (98-107); CREATINE KINASE 143 U/L (26-192); GLOMERULAR FILTRATION RATE 5 ML/MIN (>89); MAGNESIUM 2.1 MG/DL (1.5-2.5); POTASSIUM 5.9 MEQ/L (3.5-5.1); SODIUM (NA) 139 MEQ/L (136-145); TOTAL BILIRUBIN ADULT 0.5 MG/DL (0.2-1.0)
[2017-04-04] MEDS ORDERED: DEXTROSE 50% IN WATER 50 ML VIAL(D50) IV PUSH ONE (15:15)
[2017-04-04] MEDS ORDERED: CALCIUM GLUCONATE 10% 1 GM/10 ML VIAL SLOW IVP ONE (15:15)
[2017-04-04] MEDS ORDERED: ALBUAER3 INH (15:16)
[2017-04-04] MEDS ORDERED: TRAZ100T6 PO (15:16)
[2017-04-04] MEDS ORDERED: GABA100C4 PO (15:16)
--- NOTE | 2017-04-04 15:19 | RADRPT ---
EXAM DATE/TIME: 04/04/2017 14:41 [facility] COMPARISON: CHEST SINGLE AP, February 04, 2017, 19:23. INDICATIONS : Syncope, sent by dialysis because she passed out. MEDICAL HISTORY : Chronic obstructive pulmonary disease. Congestive heart failure. SURGICAL HISTORY : None. ENCOUNTER: Initial ACUITY: 1 day PAIN SCORE: 0/10 LOCATION: Bilateral chest FINDINGS: A single view of the chest demonstrates the lungs to be symmetrically aerated without evidence of mas s, infiltrate or effusion. The cardiomediastinal contours are unremarkable. Vascular stents are sadia dent. Osseous structures are intact. CONCLUSION: No acute disease. Ronn Corona MD FACR on April 04, 2017 at 15:17 Board Certified Radiologist. This report was verified electronically.
[2017-04-04 15:28] LABS: CKMB LESS THAN 0.5 NG/ML (0.5-3.6)
[2017-04-04] MEDS ORDERED: INSULIN HUMAN REGULAR 1,000 UNITS/10 ML VIAL IV PUSH ONE (15:30)
[2017-04-04] MEDS ORDERED: SODIUM CHLORIDE 0.9% FLUSH 10 ML FLUSH IV FLUSH PRN (16:45)
[2017-04-04] MEDS ORDERED: NALOXONE HCL 0.4 MG/ML AMP IV PRN (16:45)
[2017-04-04] MEDS ORDERED: ONDANSETRON HCL 4 MG/2 ML VIAL IVP PRN (18:00)
[2017-04-04] MEDS ORDERED: BISACODYL 10 MG SUPP RECTAL PRN (18:00)
[2017-04-04] MEDS ORDERED: LACTULOSE SYRUP 20 GM/30 ML CUP PO PRN (18:00)
[2017-04-04] MEDS ORDERED: ACETAMINOPHEN 325 MG TAB PO PRN (18:00)
[2017-04-04] MEDS ORDERED: MAGNESIUM HYDROXIDE SUSP 30 ML CUP PO PRN (21:00)
[2017-04-04] MEDS ORDERED: SENNOSIDES 8.6 MG TAB PO PRN (21:00)
[2017-04-04] MEDS: DOCUSATE SODIUM 50 MG/SENNA 8.6 MG TAB PO SCH (21:00)
[2017-04-04] MEDS: SODIUM CHLORIDE 0.9% FLUSH 10 ML FLUSH IV FLUSH SCH (23:00)
--- NOTE | 2017-04-04 23:35 | MB ---
cc: HI OLMOS DATE OF CONSULTATION 04/04/17 HISTORY OF PRESENT ILLNESS Ms. Jenkins is a 56-year-old black female with history of end-stage renal disease on hemodialysis for the last 10 years, managed by Dr. Villagran. She was starting dialysis, [facility] and subsequently had syncopal episode. She has had sharp substernal chest discomfort radiating into her back for the last week which occurs about twice a day. She has not had any excessive dyspnea or peripheral edema, palpitations or dizziness. PAST MEDICAL HISTORY Positive for end-stage disease on hemodialysis, hypertension, COPD, congestive heart failure, sleep apnea, thyroid disease, diabetes mellitus, anxiety, asthma and dyslipidemia. PAST SURGICAL HISTORY Surgical history is positive for nonfunctioning left upper extremity fistula, ___ Perma-Cath, right femoral IV fistula, appenedectomy, cholecystectomy, thyroidectomy. LASIK surgery, peritoneal abdominal catheter placed and removed in 2014, hysterectomy. MEDICATIONS Include: 1. Calcitriol. 2. Cyclobenzaprine. 3. Calcium carbonate. 4. Midodrine. 5. Baby aspirin. 6. Proair inhaler. 7. Trazodone. 8. Gabapentin. 9. Sucralfate. 10. Pantoprazole. 11. Levothyroixine. 12. Buproprion. 13. Atorvastatin. ALLERGIES LEVAQUIN WHICH CAUSES ANAPHYLAXIS. SOCIAL HISTORY Patient used to smoke but quit. She drinks beer occasionally. FAMILY HISTORY Negative for heart disease. REVIEW OF SYSTEMS The review of systems is otherwise negative. PHYSICAL EXAMINATION VITAL SIGNS: Blood pressure 102/65, pulse 96 and regular. HEENT: Negative. 2+ carotid. No bruits. LUNGS: Clear. HEART: Regular with no murmur, gallop or rub. ABDOMEN: Soft. No bruits. EXTREMITIES: With mild edema. 1+ distal pulses. NEUROLOGIC: Grossly nonfocal. CARDIOLOGY STUDIES EKG was reviewed and showed normal sinus rhythm, low voltage and normal axis and intervals. LABORATORY DATA Hemoglobin 12.3, potassium 5.9, creatinine 9.86, AST 30, ALT 44, BNP 9. Troponin less than 0.02, CK-MB less than 0.5. DIAGNOSIS 1. Atypical chest pain. 2. History of congestive heart failure. 3. COPD. 4. End-stage renal disease on hemodialysis. 5. Diabetes mellitus. 6. Dyslipidemia. 7. Hypertension. 8. Obesity. 9. Previous history of smoking. DISPOSITION Ms. Jenkins presented with syncope and atypical chest pain. She has history of hypotension and has been treated with Midodrine. She will be monitored on telemetry. Obtain echocardiogram to evaluate left ventricle function. We will obtain serial enzymes and EKGs. I will follow her for cardiology during her hospitalization. I recommend to proceed with dialysis tomorrow morning and then she can be scheduled for adenosine myocardial perfusion study tomorrow afternoon after dialysis. Hi Olmos MD OQuiana/EO /7:32 PM /11:04 PM
[2017-04-05] VITALS (7 sets, daily range): BP systolic 88–118; BP diastolic 50–69; PULSE 72–98; RESP 18–20; TEMP 96.5–97.1; O2SAT 94–98
[2017-04-05] MEDS ORDERED: traZODone HCL 100 MG TAB PO PRN (02:30)
[2017-04-05] MEDS: ACETAMINOPHEN/CODEINE 300 MG/30 MG TAB PO PRN ×3 (04:01→20:54)
[2017-04-05 07:16] LABS: AUTOMATED NEUTROPHIL # 9.8 TH/MM3 (1.8-7.7); BASOPHIL % 0.3 % (0.0-2.0); EOSINOPHIL # 0.8 TH/MM3 (0-0.4); EOSINOPHIL % 6.4 % (0.0-4.0); HEMATOCRIT 36.9 % (35.0-46.0); HEMO FLAGS DIFF FINAL; LYMPH % 6.5 % (9.0-44.0); LYMPHOCYTE # 0.8 TH/MM3 (1.0-4.8); MEAN CELL VOLUME 93.5 FL (80.0-100.0); MEAN CORPUSCULAR HEMOGLOBIN 30.1 PG (27.0-34.0); MEAN CORPUSCULAR HGB CONC 32.2 % (32.0-36.0); MONO % 8.4 % (0.0-8.0); NEUT % 78.4 % (16.0-70.0); PLATELET COUNT 199 TH/MM3 (150-450); RED BLOOD COUNT 3.95 MIL/MM3 (4.00-5.30); RED CELL DISTRIBUTION WIDTH 15.5 % (11.6-17.2); WHITE BLOOD COUNT 12.4 TH/MM3 (4.0-11.0)
--- NOTE | 2017-04-05 07:30 | HHI.HP ---
History of Present Illness Service Family medicine Primary Care Physician Bryan Bustos, DO Admission Diagnosis syncope, leukocytosis, hyperkalemia, hypocalcemia, chest pain Diagnoses: History of Present Illness Patient is a very pleasant 56 year old female admitted to hospital for syncopal event at dialysis center. She reports also that she has been having chest pain off and on for the past week. Chest pain lasted a couple of minutes and was relieved by rest. She has a past medical history of ESRD for 10 + years and has been followed by Dr. Villagran, diabetes, arthritis, anxiety, CHF, HLD, asthma, obesity, sleep apnea, COPD, GERD and hypothyroidism. On blood work she was found to be hypocalemic and 6.7, hyperkalemic at 5.9, and elevated WBC at 17.8. Nephrology and cardiology has been consulted. Review of Systems Constitutional: COMPLAINS OF: Fatigue Respiratory: DENIES: Cough, Snoring Cardiovascular: COMPLAINS OF: Chest pain, Syncope, DENIES: Lower Extremity Edema Gastrointestinal: DENIES: Abdominal pain, Constipation, Diarrhea Psychiatric: COMPLAINS OF: Anxiety, DENIES: Confusion Past Family Social History Allergies: Coded Allergies: Levaquin (Verified Allergy, Severe, Anaphylaxis, 04/04/17) ANAPHYLAXIS *MDRO Multi-Drug Resistant Organism (Verified Adverse Reaction, Unknown, Cleared, 04/04/17) MRSA (wound) - 04/2011, (blood) - 10/2011 MRSA PCR Screens NEGATIVE - 02/17/15 & 02/19/15 CLEARED PER INFECTION CONTROL Past Medical History Anemia Arthritis Asthma Anxiety HLD CHF COPD Diabetes GERD HTN Past Surgical History AV fistula cholecystectomy Thyroidectomy Cataract removed partial hysterectomy and appendectomy Active Ordered Medications Current Medications Medications (Trade) Dose Ordered Sig/Mary Grace Route Start Time Stop Time Status Last Admin (NS Flush) 2 ml UNSCH PRN IVF 04/04/17 14:15 04/04/17 15:32 (NS Flush) 2 ml UNSCH PRN IV FLUSH 04/04/17 16:45 (NS Flush) 2 ml BID IV FLUSH 04/04/17 21:00 04/05/17 11:20 (Tylenol) 650 mg Q4H PRN PO 04/04/17 18:00 (Zofran Inj) 4 mg Q6H PRN IVP 04/04/17 18:00 (Narcan Inj) 0.4 mg UNSCH PRN IV 04/04/17 16:45 (Yelena-Colace) 1 tab BID PO 04/04/17 21:00 (Milk Of Magnesia Liq) 30 ml Q12HR PRN PO 04/04/17 21:00 (Senokot) 17.2 mg Q12HR PRN PO 04/04/17 21:00 (Dulcolax Supp) 10 mg DAILY PRN RECTAL 04/04/17 18:00 (Lactulose Liq) 30 ml DAILY PRN PO 04/04/17 18:00 (Tylenol-Codeine #3) 1 tab Q4H PRN PO 04/05/17 02:30 04/05/17 08:34 Trazodone HCl 100 mg 100 mg HS PRN PO 04/05/17 02:30 (NS 1000 ml Inj) 1,000 ml @ 0 mls/hr Q0M PRN IV 04/05/17 08:30 Heparin Sodium (Porcine) 8000 units 8,000 units UNSCH PRN IVF 04/05/17 08:30 Sodium Chloride 1,000 ml @ 200 mls/hr Q5H PRN IV 04/05/17 08:30 (NS 1000 ml Inj) 1,000 ml @ 0 mls/hr Q0M PRN IV 04/05/17 08:30 (Mannitol Inj) 12.5 gm UNSCH PRN IV 04/05/17 08:30 (Albumin 25% Inj) 25 gm UNSCH PRN IV 04/05/17 08:30 (NS Flush) 5 ml UNSCH PRN IV FLUSH 04/05/17 08:30 (Heparin Inj) UNSCH PRN .XX 04/05/17 08:30 (Gentamicin (Dialysis) Inj) 20 mg UNSCH PRN IV 04/05/17 08:30 (Zofran Inj) 4 mg UNSCH PRN IV 04/05/17 08:30 (Tylenol) 650 mg UNSCH PRN PO 04/05/17 08:30 (Benadryl) 25 mg UNSCH PRN PO 04/05/17 08:30 (Nitrostat Sl) 0.4 mg UNSCH PRN SL 04/05/17 08:30 (Catapres) 0.1 mg UNSCH PRN PO 04/05/17 08:30 (Epogen Inj) 2,000 units UNSCH PRN IV 04/05/17 08:30 (Gelfoam 12 Mm/7 Mm Top) 1 foam UNSCH PRN TOP 04/05/17 08:30 Family History Mother: diabetes and heart disease Father: Prostate cancer Social History Quit smoking 1 year ago ETOH 2 can of beer per month Lives with daughter Worked in past as a [employer] Physical Exam Vital Signs Vital Signs Date Time Temp Pulse Resp B/P Pulse Ox O2 Delivery O2 Flow Rate FiO2 04/05/17 04:00 97.1 88 18 107/56 96 04/05/17 00:01 89 04/05/17 00:00 96.6 98 20 118/60 98 04/04/17 20:16 90 04/04/17 20:00 96.3 94 20 117/57 97 04/04/17 18:50 97.8 96 17 102/65 100 04/04/17 16:46 97.7 99 16 103/64 100 Room Air 04/04/17 15:23 97.8 93 17 103/57 100 Room Air 04/04/17 15:00 92 16 98 Room Air 04/04/17 15:00 17 100 Room Air 04/04/17 15:00 97.8 92 16 98 Room Air 04/04/17 13:05 97.0 96 20 89/52 97 Physical Exam GENERAL: Obese female in no acute distress SKIN: Warm and dry. Dialysis site right upper thigh HEAD: Atraumatic. Normocephalic. EYES: Pupils equal and round. No scleral icterus. No injection or drainage. ENT: No nasal bleeding or discharge. Mucous membranes pink and moist. NECK: Trachea midline. No JVD. CARDIOVASCULAR: Regular rate and rhythm. No murmur appreciated. RESPIRATORY: No accessory muscle use. Clear to auscultation. Breath sounds equal bilaterally. GASTROINTESTINAL: Abdomen soft, non-tender, nondistended. Hepatic and splenic margins not palpable. MUSCULOSKELETAL: No obvious deformities. Chest wall tenderness is noted. There is no lower extremity edema. NEUROLOGICAL: Awake and alert. No obvious cranial nerve deficits. Motor grossly within normal limits. Normal speech. PSYCHIATRIC: Appropriate mood and affect; insight and judgment normal. Laboratory Laboratory Tests Test 04/04/17 04/04/17 04/04/17 04/05/17 14:25 15:05 20:27 06:00 White Blood Count 17.8 12.4 Red Blood Count 4.22 3.95 Hemoglobin 12.3 11.9 Hematocrit 39.3 36.9 Mean Corpuscular Volume 93.2 93.5 Mean Corpuscular Hemoglobin 29.2 30.1 Mean Corpuscular Hemoglobin 31.3 32.2 Concent Red Cell Distribution Width 15.4 15.5 Platelet Count 223 199 Mean Platelet Volume 7.7 8.1 Neutrophils (%) (Auto) 86.5 78.4 Lymphocytes (%) (Auto) 2.7 6.5 Monocytes (%) (Auto) 6.1 8.4 Eosinophils (%) (Auto) 4.3 6.4 Basophils (%) (Auto) 0.4 0.3 Neutrophils # (Auto) 15.4 9.8 Lymphocytes # (Auto) 0.5 0.8 Monocytes # (Auto) 1.1 1.0 Eosinophils # (Auto) 0.8 0.8 Basophils # (Auto) 0.1 0.0 CBC Comment DIFF FINAL DIFF FINAL Differential Comment Sodium Level 139 Potassium Level 5.9 5.2 Chloride Level 102 Carbon Dioxide Level 24.2 Anion Gap 13 Blood Urea Nitrogen 68 Creatinine 9.86 Estimat Glomerular Filtration 5 Rate Random Glucose 80 Calcium Level 6.7 Protein Corrected Calcium Phosphorus Level 6.0 Magnesium Level 2.1 Total Bilirubin 0.5 Aspartate Amino Transf 30 (AST/SGOT) Alanine Aminotransferase 44 (ALT/SGPT) Alkaline Phosphatase 88 Total Creatine Kinase 143 Creatine Kinase MB LESS THAN 0.5 Troponin I LESS THAN 0.02 B-Type Natriuretic Peptide 9 Total Protein 8.8 Albumin 3.3 Lactic Acid Level 0.9 Date/Time Procedure Status Source Growth 04/04/17 15:10 Aerobic Blood Culture Received Blood Peripheral Pending 04/04/17 15:10 Anaerobic Blood Culture Received Blood Peripheral Pending Result Diagram: 04/05/17 0600 04/04/172026 Imaging Last 72 hours Impressions Chest X-Ray 04/04/17 1405 Signed Impressions: Service Date/Time: Tuesday, April 04, 2017 14:41 - CONCLUSION: No acute disease. Ronn Corona MD FACR Assessment and Plan Problem List: (1) Hyperkalemia Status: Acute Plan: K 5.8 this AM dialysis today. (2) Chest pain Status: Acute Plan: Cardiology consulted. Stress test ordered for today. No chest pain noted this morning. (3) Hypocalcemia Status: Resolved Plan: Corrected calcium at 6.1 replacement added (4) End stage renal disease Status: Acute Plan: Dr. Villagran consulted. Dialysis this AM (5) Leukocytosis Status: Acute Plan: WBC improved at 12.4 today. Chest Xray with no acute findings. BC pending. Patient has remained afebrile. No source of infection noted will continue to monitor (6) Generalized weakness Status: Acute Plan: PT/OT ordered (7) Morbid obesity Status: Chronic Plan: Weight loss encouraged. Renal diet Assessment and Plan Assessment and plan discussed with Dr. Bustos Discussed Condition With Nursing Discharge Planning Home with [facility] Physician Attestation I and the BRIMMING MACHINE OPERATOR have both examined this patient and reviewed this note and I agree with these findings and plan of care. Bryan Bustos DO Problem Qualifiers (1) Chest pain: Qualified Code: R07.9 - Chest pain, unspecified type (2) Leukocytosis: Qualified Code: D72.829 - Leukocytosis, unspecified type Tami Owens BRIMMING MACHINE OPERATOR Apr 05, 2017 07:30
[2017-04-05 08:22] LABS: ALKALINE PHOSPHATASE 85 U/L (45-117); ALT (GPT) 38 U/L (10-53); ANION GAP 14 MEQ/L (5-15); AST (GOT) 15 U/L (15-37); BICARBONATE 22.4 MEQ/L (21.0-32.0); BLOOD UREA NITROGEN 84 MG/DL (7-18); CHLORIDE 102 MEQ/L (98-107); GLOMERULAR FILTRATION RATE 4 ML/MIN (>89); POTASSIUM 5.8 MEQ/L (3.5-5.1); SODIUM (NA) 138 MEQ/L (136-145); TOTAL BILIRUBIN ADULT 0.4 MG/DL (0.2-1.0)
[2017-04-05] MEDS ORDERED: SODIUM CHLORIDE 0.9% FLUSH 10 ML FLUSH IV FLUSH PRN (08:30)
[2017-04-05] MEDS ORDERED: GENTAMICIN SULFATE (DIALYSIS USE ONLY) 20 MG/2 ML VIAL IV PRN (08:30)
[2017-04-05] MEDS ORDERED: ALBUMIN HUMAN 25% 25 GM/100 ML BAGP IV PRN (08:30)
[2017-04-05] MEDS ORDERED: NITROGLYCERIN 0.4 MG SL 25 TABS/BTL SL PRN (08:30)
[2017-04-05] MEDS ORDERED: HEPARIN SODIUM - IV 10,000 UNITS/10 ML VIAL PRN (08:30)
[2017-04-05] MEDS ORDERED: GELATIN 12 MM/7 MM FOAM TOP PRN (08:30)
[2017-04-05] MEDS ORDERED: SODIUM CHLOR 0.9% 1000 ML INJ 1,000 ML IV PRN ×3 (08:30)
[2017-04-05] MEDS ORDERED: MANNITOL 12.5 GM/50 ML VIAL IV PRN (08:30)
[2017-04-05] MEDS ORDERED: ONDANSETRON HCL 4 MG/2 ML VIAL IV PRN (08:30)
[2017-04-05] MEDS ORDERED: cloNIDine HCL 0.1 MG TAB PO PRN (08:30)
[2017-04-05] MEDS ORDERED: HEPARIN SODIUM - IV 10,000 UNITS/10 ML VIAL IVF PRN (08:30)
[2017-04-05] MEDS ORDERED: EPOETIN ALFA 10,000 UNITS/ML VIAL IV PRN (08:30)
[2017-04-05] MEDS ORDERED: diphenhydrAMINE HCL 25 MG CAP PO PRN (08:30)
[2017-04-05] MEDS ORDERED: ACETAMINOPHEN 325 MG TAB PO PRN (08:30)
[2017-04-05 08:36] LABS: CALCIUM-PROTEIN CORRECTED 6.1 MG/DL (8.5-10.1)
--- NOTE | 2017-04-05 08:57 | PD.CONS ---
HPI Service Nephrology Consult Requested By Dr. Bustos Reason for Consult ESRD Primary Care Physician Bryan Bustos, DO History of Present Illness 56 year old black female with obesity, Hypertension, Diabetes, ESRD, who was lethargic prior to dialysis, she was placed on dialysis and was able to arouse but remained semi responsive, it was felt she was medically unstable to continue with dialysis and it was stopped just with in 30 minutes, she was found to have leukocytosis no clear source of infection, she has a rt groin PermCath. Review of Systems Constitutional: COMPLAINS OF: Fatigue Respiratory: COMPLAINS OF: Shortness of breath Gastrointestinal: COMPLAINS OF: Constipation Neurologic: COMPLAINS OF: Abnormal gait Psychiatric: COMPLAINS OF: Confusion Past Family Social History Allergies: Coded Allergies: Levaquin (Verified Allergy, Severe, Anaphylaxis, 04/04/17) ANAPHYLAXIS *MDRO Multi-Drug Resistant Organism (Verified Adverse Reaction, Unknown, Cleared, 04/04/17) MRSA (wound) - 04/2011, (blood) - 10/2011 MRSA PCR Screens NEGATIVE - 02/17/15 & 02/19/15 CLEARED PER INFECTION CONTROL Past Medical History DM HTN Obesity ESRD Asthma CHF Hyperkalemia Past Surgical History AVF/AVG PermCath GB Hysterectomy Appendectomy Reported Medications Reported Meds & Active Scripts Active Rocaltrol (Calcitriol) 0.25 Mcg Cap 0.5 Mcg PO DAILY Flexeril (Cyclobenzaprine HCl) 10 Mg Tab 10 Mg PO BID PRN Calcium Carbonate (Antacid) 500 Mg Chew 1,000 Mg CHEW Q4HR Midodrine 5 Mg Tab 10 Mg PO TID@,, Aspirin EC (Aspirin) 81 Mg Tabdr 81 Mg PO DAILY Reported Proair Hfa 8.5 GM Inh (Albuterol Sulfate) 90 Mcg/Act Aer 2 Puff INH Q6H PRN 108 mcg/actuation Trazodone (Trazodone HCl) 100 Mg Tablet 100 Mg PO HS Gabapentin 100 Mg Cap 100 Mg PO TID Sucralfate 1 Gm Tab 1 Gm PO BIDAC on empty stomach Pantoprazole (Pantoprazole Sodium) 40 Mg Tab 40 Mg PO DAILY Levothyroxine (Levothyroxine Sodium) 50 Mcg Tab 50 Mcg PO DAILY Bupropion HCl 75 Mg Tab 75 Mg PO DAILY Atorvastatin (Atorvastatin Calcium) 40 Mg Tab 40 Mg PO HS Active Ordered Medications Current Medications Medications (Trade) Dose Ordered Sig/Mary Grace Route Start Time Stop Time Status Last Admin (NS Flush) 2 ml UNSCH PRN IVF 04/04/17 14:15 04/04/17 15:32 (NS Flush) 2 ml UNSCH PRN IV FLUSH 04/04/17 16:45 (NS Flush) 2 ml BID IV FLUSH 04/04/17 21:00 04/04/17 23:00 (Tylenol) 650 mg Q4H PRN PO 04/04/17 18:00 (Zofran Inj) 4 mg Q6H PRN IVP 04/04/17 18:00 (Narcan Inj) 0.4 mg UNSCH PRN IV 04/04/17 16:45 (Yelena-Colace) 1 tab BID PO 04/04/17 21:00 (Milk Of Magnesia Liq) 30 ml Q12HR PRN PO 04/04/17 21:00 (Senokot) 17.2 mg Q12HR PRN PO 04/04/17 21:00 (Dulcolax Supp) 10 mg DAILY PRN RECTAL 04/04/17 18:00 (Lactulose Liq) 30 ml DAILY PRN PO 04/04/17 18:00 (Tylenol-Codeine #3) 1 tab Q4H PRN PO 04/05/17 02:30 04/05/17 08:34 Trazodone HCl 100 mg 100 mg HS PRN PO 04/05/17 02:30 (NS 1000 ml Inj) 1,000 ml @ 0 mls/hr Q0M PRN IV 04/05/17 08:30 UNV Heparin Sodium (Porcine) 8000 units 8,000 units UNSCH PRN IVF 04/05/17 08:30 UNV Sodium Chloride 1,000 ml @ 200 mls/hr Q5H PRN IV 04/05/17 08:30 UNV (NS 1000 ml Inj) 1,000 ml @ 0 mls/hr Q0M PRN IV 04/05/17 08:30 UNV (Mannitol Inj) 12.5 gm UNSCH PRN IV 04/05/17 08:30 UNV (Albumin 25% Inj) 25 gm UNSCH PRN IV 04/05/17 08:30 UNV (NS Flush) 5 ml UNSCH PRN IV FLUSH 04/05/17 08:30 UNV (Heparin Inj) UNSCH PRN .XX 04/05/17 08:30 UNV (Gentamicin (Dialysis) Inj) 20 mg UNSCH PRN IV 04/05/17 08:30 UNV (Zofran Inj) 4 mg UNSCH PRN IV 04/05/17 08:30 UNV (Tylenol) 650 mg UNSCH PRN PO 04/05/17 08:30 UNV (Benadryl) 25 mg UNSCH PRN PO 04/05/17 08:30 UNV (Nitrostat Sl) 0.4 mg UNSCH PRN SL 04/05/17 08:30 UNV (Catapres) 0.1 mg UNSCH PRN PO 04/05/17 08:30 UNV (Epogen Inj) 2,000 units UNSCH PRN IV 04/05/17 08:30 UNV (Gelfoam 12 Mm/7 Mm Top) 1 foam UNSCH PRN TOP 04/05/17 08:30 UNV Family History noncontributory Social History denies smoking/ETOH Physical Exam Vital Signs Vital Signs Date Time Temp Pulse Resp B/P Pulse Ox O2 Delivery O2 Flow Rate FiO2 04/05/17 04:00 97.1 88 18 107/56 96 04/05/17 00:01 89 04/05/17 00:00 96.6 98 20 118/60 98 04/04/17 20:16 90 04/04/17 20:00 96.3 94 20 117/57 97 04/04/17 18:50 97.8 96 17 102/65 100 04/04/17 16:46 97.7 99 16 103/64 100 Room Air 04/04/17 15:23 97.8 93 17 103/57 100 Room Air 04/04/17 15:00 92 16 98 Room Air 04/04/17 15:00 17 100 Room Air 04/04/17 15:00 97.8 92 16 98 Room Air 04/04/17 13:05 97.0 96 20 89/52 97 Physical Exam GENERAL: Well-nourished, well-developed patient. SKIN: Warm and dry. HEAD: Normocephalic. EYES: No scleral icterus. No injection or drainage. NECK: Supple, trachea midline. No JVD or lymphadenopathy. CARDIOVASCULAR: Regular rate and rhythm without murmurs, gallops, or rubs. RESPIRATORY: Breath sounds equal bilaterally. No accessory muscle use. GASTROINTESTINAL: Abdomen soft, non-tender, nondistended. EXTREMITIES: No cyanosis, or edema. NEUROLOGICAL: Awake, alert, and oriented x 3. Non-focal. Laboratory Laboratory Tests Test 04/04/17 04/04/17 04/04/17 04/05/17 14:25 15:05 20:27 06:00 White Blood Count 17.8 12.4 Red Blood Count 4.22 3.95 Hemoglobin 12.3 11.9 Hematocrit 39.3 36.9 Mean Corpuscular Volume 93.2 93.5 Mean Corpuscular Hemoglobin 29.2 30.1 Mean Corpuscular Hemoglobin 31.3 32.2 Concent Red Cell Distribution Width 15.4 15.5 Platelet Count 223 199 Mean Platelet Volume 7.7 8.1 Neutrophils (%) (Auto) 86.5 78.4 Lymphocytes (%) (Auto) 2.7 6.5 Monocytes (%) (Auto) 6.1 8.4 Eosinophils (%) (Auto) 4.3 6.4 Basophils (%) (Auto) 0.4 0.3 Neutrophils # (Auto) 15.4 9.8 Lymphocytes # (Auto) 0.5 0.8 Monocytes # (Auto) 1.1 1.0 Eosinophils # (Auto) 0.8 0.8 Basophils # (Auto) 0.1 0.0 CBC Comment DIFF FINAL DIFF FINAL Differential Comment Sodium Level 139 138 Potassium Level 5.9 5.2 5.8 Chloride Level 102 102 Carbon Dioxide Level 24.2 22.4 Anion Gap 13 14 Blood Urea Nitrogen 68 84 Creatinine 9.86 11.10 Estimat Glomerular Filtration 5 4 Rate Random Glucose 80 65 Calcium Level 6.7 6.5 Protein Corrected Calcium 6.1 Phosphorus Level 6.0 Magnesium Level 2.1 Total Bilirubin 0.5 0.4 Aspartate Amino Transf 30 15 (AST/SGOT) Alanine Aminotransferase 44 38 (ALT/SGPT) Alkaline Phosphatase 88 85 Total Creatine Kinase 143 Creatine Kinase MB LESS THAN 0.5 Troponin I LESS THAN 0.02 LESS THAN 0.02 B-Type Natriuretic Peptide 9 Total Protein 8.8 8.2 Albumin 3.3 3.1 Lactic Acid Level 0.9 Date/Time Procedure Status Source Growth 04/04/17 15:10 Aerobic Blood Culture Received Blood Peripheral Pending 04/04/17 15:10 Anaerobic Blood Culture Received Blood Peripheral Pending Result Diagram: 04/05/17 0600 04/05/17 0600 Imaging Last Impressions Chest X-Ray 04/04/17 1405 Signed Impressions: Service Date/Time: Tuesday, April 04, 2017 14:41 - CONCLUSION: No acute disease. Ronn Corona MD FACR Assessment and Plan Problem List: (1) End stage renal disease Plan: she will need dialysis today as not able to do her treatment yesterday orders given CP cardiology following follow culture (2) Morbid obesity Plan: weight loss recommended (3) Hyperkalemia Plan: hemodialysis lolw k diet (4) Generalized weakness Plan: await c/s. Frank Villagran MD Apr 05, 2017 08:57
[2017-04-05] MEDS: DOCUSATE SODIUM 50 MG/SENNA 8.6 MG TAB PO SCH ×2 (09:00→20:51)
[2017-04-05] MEDS ORDERED: CALCIUM GLUCONATE INJ 1 GM in SODIUM CHLORIDE 0.9% INJ 90 ML IV ONE (09:00)
[2017-04-05] MEDS ORDERED: REGADENOSON INJ 0.4 MG/5 ML SYR ONE (09:10)
[2017-04-05] MEDS: SODIUM CHLORIDE 0.9% FLUSH 10 ML FLUSH IV FLUSH SCH ×2 (11:20→20:53)
[2017-04-05] MEDS ORDERED: ALBUTEROL SULFATE 90 MCG/ACT HFA 8 GM INHALER INH PRN (12:15)
--- NOTE | 2017-04-05 12:58 | EKG ---
Date Performed: 04/04/2017 Time Performed: 14:29:57 PTAGE: 56 years EKG: Sinus rhythm LOW QRS VOLTAGE IN PRECORDIAL LEADS BORDERLINE ECG PREVIOUS TRACING : 02/04/2017 21.10 DOCTOR: Allen Borja Interpretating Date/Time 04/05/2017 12:53:38
[2017-04-05] MEDS: GABAPENTIN 100 MG CAP PO SCH ×2 (13:36→18:48)
[2017-04-05] MEDS: CALCIUM CARBONATE 500 MG CHEWABLE TAB CHEW SCH ×2 (16:00→20:52)
[2017-04-05] MEDS: SUCRALFATE 1 GM TAB PO SCH (16:00)
[2017-04-05] MEDS: MIDODRINE 5 MG TAB PO SCH (17:00)
--- NOTE | 2017-04-05 20:36 | PD.CARD.PN ---
Subjective Subjective Remarks No CP, SOB, or dizziness, tolerated dialysis well, nuc ST initiated Objective Medications Current Medications Medications (Trade) Dose Ordered Sig/Mary Grace Route Start Time Stop Time Status Last Admin (NS Flush) 2 ml UNSCH PRN IVF 04/04/17 14:15 04/04/17 15:32 (NS Flush) 2 ml UNSCH PRN IV FLUSH 04/04/17 16:45 (NS Flush) 2 ml BID IV FLUSH 04/04/17 21:00 04/05/17 11:20 (Tylenol) 650 mg Q4H PRN PO 04/04/17 18:00 (Zofran Inj) 4 mg Q6H PRN IVP 04/04/17 18:00 (Narcan Inj) 0.4 mg UNSCH PRN IV 04/04/17 16:45 (Yelena-Colace) 1 tab BID PO 04/04/17 21:00 (Milk Of Magnesia Liq) 30 ml Q12HR PRN PO 04/04/17 21:00 (Senokot) 17.2 mg Q12HR PRN PO 04/04/17 21:00 (Dulcolax Supp) 10 mg DAILY PRN RECTAL 04/04/17 18:00 (Lactulose Liq) 30 ml DAILY PRN PO 04/04/17 18:00 (Tylenol-Codeine #3) 1 tab Q4H PRN PO 04/05/17 02:30 04/05/17 08:34 Trazodone HCl 100 mg 100 mg HS PRN PO 04/05/17 02:30 (NS 1000 ml Inj) 1,000 ml @ 0 mls/hr Q0M PRN IV 04/05/17 08:30 Heparin Sodium (Porcine) 8000 units 8,000 units UNSCH PRN IVF 04/05/17 08:30 Sodium Chloride 1,000 ml @ 200 mls/hr Q5H PRN IV 04/05/17 08:30 (NS 1000 ml Inj) 1,000 ml @ 0 mls/hr Q0M PRN IV 04/05/17 08:30 (Mannitol Inj) 12.5 gm UNSCH PRN IV 04/05/17 08:30 (Albumin 25% Inj) 25 gm UNSCH PRN IV 04/05/17 08:30 (NS Flush) 5 ml UNSCH PRN IV FLUSH 04/05/17 08:30 (Heparin Inj) UNSCH PRN .XX 04/05/17 08:30 04/05/17 16:22 (Gentamicin (Dialysis) Inj) 20 mg UNSCH PRN IV 04/05/17 08:30 04/05/17 16:21 (Zofran Inj) 4 mg UNSCH PRN IV 04/05/17 08:30 (Tylenol) 650 mg UNSCH PRN PO 04/05/17 08:30 (Benadryl) 25 mg UNSCH PRN PO 04/05/17 08:30 (Nitrostat Sl) 0.4 mg UNSCH PRN SL 04/05/17 08:30 (Catapres) 0.1 mg UNSCH PRN PO 04/05/17 08:30 (Epogen Inj) 2,000 units UNSCH PRN IV 04/05/17 08:30 04/05/17 16:21 (Gelfoam 12 Mm/7 Mm Top) 1 foam UNSCH PRN TOP 04/05/17 08:30 (Proair Hfa Inh) 2 puff Q6H PRN INH 04/05/17 12:15 (Ecotrin Ec) 81 mg DAILY PO 04/06/17 09:00 (Lipitor) 40 mg HS PO 04/05/17 21:00 (Wellbutrin) 75 mg DAILY PO 04/06/17 09:00 (Rocaltrol) 0.5 mcg DAILY PO 04/06/17 09:00 (Tums Chew) 1,000 mg Q4HR CHEW 04/05/17 16:00 (Flexeril) 10 mg BID PRN PO 04/05/17 12:15 (Neurontin) 100 mg TID PO 04/05/17 13:00 04/05/17 18:48 (Synthroid) 50 mcg DAILY@06 PO 04/06/17 06:00 (Proamatine) 10 mg TID@07,12,17 PO 04/05/17 17:00 (Protonix) 40 mg DAILY PO 04/06/17 09:00 (Carafate) 1 gm BIDAC PO 04/05/17 16:00 (Desyrel) 100 mg HS PO 04/05/17 21:00 Vital Signs / I&O Vital Signs Date Time Temp Pulse Resp B/P Pulse Ox O2 Delivery O2 Flow Rate FiO2 04/05/17 20:00 96.5 94 18 118/60 95 04/05/17 12:00 96.5 85 18 111/69 95 04/05/17 08:00 96.7 90 18 88/50 94 89/51 04/05/17 04:00 97.1 88 18 107/56 96 04/05/17 00:01 89 04/05/17 00:00 96.6 98 20 118/60 98 I/O 04/04/17 04/04/17 04/04/17 04/05/17 04/05/17 04/05/17 07:00 15:00 23:00 07:00 15:00 23:00 Intake Total 900 ml 0 ml Output Total 2500 ml Balance 900 ml 0 ml -2500 ml Intake Oral 900 ml 0 ml Output Hemodialysis 2500 ml # Voids 1 # Bowel Movements 1 Physical Exam GENERAL: In NAD SKIN: Warm and dry. HEAD: Normocephalic. EYES: No scleral icterus. No injection or drainage. NECK: Supple, trachea midline. No JVD or lymphadenopathy. CARDIOVASCULAR: Regular rate and rhythm without murmurs, gallops, or rubs. RESPIRATORY: Breath sounds equal bilaterally. No accessory muscle use. GASTROINTESTINAL: Abdomen soft, non-tender, nondistended, obese MUSCULOSKELETAL: No cyanosis, trace edema. Laboratory Laboratory Tests Test 04/05/17 06:00 White Blood Count 12.4 TH/MM3 Red Blood Count 3.95 MIL/MM3 Hemoglobin 11.9 GM/DL Hematocrit 36.9 % Mean Corpuscular Volume 93.5 FL Mean Corpuscular Hemoglobin 30.1 PG Mean Corpuscular Hemoglobin 32.2 % Concent Red Cell Distribution Width 15.5 % Platelet Count 199 TH/MM3 Mean Platelet Volume 8.1 FL Neutrophils (%) (Auto) 78.4 % Lymphocytes (%) (Auto) 6.5 % Monocytes (%) (Auto) 8.4 % Eosinophils (%) (Auto) 6.4 % Basophils (%) (Auto) 0.3 % Neutrophils # (Auto) 9.8 TH/MM3 Lymphocytes # (Auto) 0.8 TH/MM3 Monocytes # (Auto) 1.0 TH/MM3 Eosinophils # (Auto) 0.8 TH/MM3 Basophils # (Auto) 0.0 TH/MM3 CBC Comment DIFF FINAL Differential Comment Sodium Level 138 MEQ/L Potassium Level 5.8 MEQ/L Chloride Level 102 MEQ/L Carbon Dioxide Level 22.4 MEQ/L Anion Gap 14 MEQ/L Blood Urea Nitrogen 84 MG/DL Creatinine 11.10 MG/DL Estimat Glomerular Filtration 4 ML/MIN Rate Random Glucose 65 MG/DL Calcium Level 6.5 MG/DL Protein Corrected Calcium 6.1 MG/DL Total Bilirubin 0.4 MG/DL Aspartate Amino Transf 15 U/L (AST/SGOT) Alanine Aminotransferase 38 U/L (ALT/SGPT) Alkaline Phosphatase 85 U/L Troponin I LESS THAN 0.02 NG/ML Total Protein 8.2 GM/DL Albumin 3.1 GM/DL Imaging Last Impressions Chest X-Ray 04/04/17 1405 Signed Impressions: Service Date/Time: Tuesday, April 04, 2017 14:41 - CONCLUSION: No acute disease. Ronn Corona MD FACR Assessment and Plan Problem List: (1) Chest pain (2) ESRD on hemodialysis (3) COPD (chronic obstructive pulmonary disease) (4) DM (diabetes mellitus) (5) Hypertension (6) Morbidly obese Assessment and Plan No angina or CHF symptoms. Tolerated dialysis well. K improved. Nuc ST initiated , will be completed tomorrow. Continue current program. Increase activity. Problem Qualifiers (1) Chest pain: Qualified Code: R07.9 - Chest pain, unspecified type Hi Macedo MD Apr 05, 2017 20:36
[2017-04-05] MEDS: ATORVASTATIN 40 MG TAB PO SCH (20:52)
[2017-04-05] MEDS ORDERED: traZODone HCL 100 MG TAB PO SCH (21:00)
[2017-04-06] VITALS (7 sets, daily range): BP systolic 101–117; BP diastolic 50–68; PULSE 76–100; RESP 18; TEMP 96.6–97.3; O2SAT 92–99
[2017-04-06] MEDS: CALCIUM CARBONATE 500 MG CHEWABLE TAB CHEW SCH ×7 (05:38→22:21)
[2017-04-06] MEDS: LEVOTHYROXINE SODIUM 50 MCG TAB PO SCH (05:40)
[2017-04-06] MEDS: MIDODRINE 5 MG TAB PO SCH ×3 (05:40→16:46)
[2017-04-06] MEDS: SUCRALFATE 1 GM TAB PO SCH ×2 (05:40→16:47)
[2017-04-06] MEDS: ACETAMINOPHEN/CODEINE 300 MG/30 MG TAB PO PRN ×4 (05:40→21:19)
[2017-04-06 08:14] LABS: AUTOMATED NEUTROPHIL # 5.2 TH/MM3 (1.8-7.7); BASOPHIL % 0.4 % (0.0-2.0); EOSINOPHIL # 0.8 TH/MM3 (0-0.4); HEMATOCRIT 39.2 % (35.0-46.0); HEMO FLAGS DIFF FINAL; LYMPH % 7.8 % (9.0-44.0); LYMPHOCYTE # 0.6 TH/MM3 (1.0-4.8); MEAN CELL VOLUME 94.8 FL (80.0-100.0); MEAN CORPUSCULAR HGB CONC 31.7 % (32.0-36.0); MONO % 9.5 % (0.0-8.0); NEUT % 71.3 % (16.0-70.0); PLATELET COUNT 227 TH/MM3 (150-450); RED BLOOD COUNT 4.13 MIL/MM3 (4.00-5.30); RED CELL DISTRIBUTION WIDTH 15.2 % (11.6-17.2); WHITE BLOOD COUNT 7.3 TH/MM3 (4.0-11.0)
[2017-04-06 08:46] LABS: BICARBONATE 27.7 MEQ/L (21.0-32.0); FREE T3 2.26 PG/ML (2.18-3.98); FREE T4 1.18 NG/DL (0.76-1.46); HDL CHOLESTEROL 40.3 MG/DL (40.0-60.0); POTASSIUM 4.4 MEQ/L (3.5-5.1)
[2017-04-06] MEDS: DOCUSATE SODIUM 50 MG/SENNA 8.6 MG TAB PO SCH ×2 (09:00→21:19)
[2017-04-06] MEDS: GABAPENTIN 100 MG CAP PO SCH ×3 (09:00→16:46)
--- NOTE | 2017-04-06 09:51 | HHI.PR ---
Subjective Remarks Patient denies any CP today. Had beginning of stress test yesterday. Denies any SOB Objective Vital Signs Date Time Temp Pulse Resp B/P Pulse Ox O2 Delivery O2 Flow Rate FiO2 04/06/17 07:56 92 21 04/06/17 04:00 96.7 98 18 101/51 95 04/06/17 00:00 96.9 100 18 113/59 95 04/05/17 21:40 95 Nasal Cannula 1.00 04/05/17 20:00 96.5 94 18 118/60 95 04/05/17 12:00 96.5 85 18 111/69 95 I/O 04/05/17 04/05/17 04/05/17 04/06/17 04/06/17 04/06/17 07:00 15:00 23:00 07:00 15:00 23:00 Intake Total 0 ml 240 ml 480 ml Output Total 2500 ml Balance 0 ml -2260 ml 480 ml Intake Oral 0 ml 240 ml 480 ml Output Hemodialysis 2500 ml # Voids 1 Result Diagram: 04/06/17 0634 04/06/17 0624 Imaging Last 72 hours Impressions Chest X-Ray 04/04/17 1405 Signed Impressions: Service Date/Time: Tuesday, April 04, 2017 14:41 - CONCLUSION: No acute disease. Ronn Corona MD FACR Objective Remarks GENERAL: alert and cooperative. Obese in no distress SKIN: Warm and dry. HEAD: Normocephalic. EYES: No scleral icterus. No injection or drainage. NECK: Supple, trachea midline. No JVD or lymphadenopathy. CARDIOVASCULAR: Regular rate and rhythm without murmurs, gallops, or rubs. RESPIRATORY: Breath sounds equal bilaterally. No accessory muscle use. GASTROINTESTINAL: Abdomen soft, non-tender, nondistended. MUSCULOSKELETAL: No cyanosis, or edema. BACK: Nontender without obvious deformity. No CVA tenderness. Medications and IVs Current Medications Medications (Trade) Dose Ordered Sig/Mary Grace Route Start Time Stop Time Status Last Admin (NS Flush) 2 ml UNSCH PRN IVF 04/04/17 14:15 04/04/17 15:32 (NS Flush) 2 ml UNSCH PRN IV FLUSH 04/04/17 16:45 (NS Flush) 2 ml BID IV FLUSH 04/04/17 21:00 04/05/17 20:53 (Tylenol) 650 mg Q4H PRN PO 04/04/17 18:00 (Zofran Inj) 4 mg Q6H PRN IVP 04/04/17 18:00 (Narcan Inj) 0.4 mg UNSCH PRN IV 04/04/17 16:45 (Yelena-Colace) 1 tab BID PO 04/04/17 21:00 04/05/17 20:51 (Milk Of Magnesia Liq) 30 ml Q12HR PRN PO 04/04/17 21:00 (Senokot) 17.2 mg Q12HR PRN PO 04/04/17 21:00 (Dulcolax Supp) 10 mg DAILY PRN RECTAL 04/04/17 18:00 (Lactulose Liq) 30 ml DAILY PRN PO 04/04/17 18:00 (Tylenol-Codeine #3) 1 tab Q4H PRN PO 04/05/17 02:30 04/06/17 05:40 Trazodone HCl 100 mg 100 mg HS PRN PO 04/05/17 02:30 (NS 1000 ml Inj) 1,000 ml @ 0 mls/hr Q0M PRN IV 04/05/17 08:30 Heparin Sodium (Porcine) 8000 units 8,000 units UNSCH PRN IVF 04/05/17 08:30 Sodium Chloride 1,000 ml @ 200 mls/hr Q5H PRN IV 04/05/17 08:30 (NS 1000 ml Inj) 1,000 ml @ 0 mls/hr Q0M PRN IV 04/05/17 08:30 (Mannitol Inj) 12.5 gm UNSCH PRN IV 04/05/17 08:30 (Albumin 25% Inj) 25 gm UNSCH PRN IV 04/05/17 08:30 (NS Flush) 5 ml UNSCH PRN IV FLUSH 04/05/17 08:30 (Heparin Inj) UNSCH PRN .XX 04/05/17 08:30 04/05/17 16:22 (Gentamicin (Dialysis) Inj) 20 mg UNSCH PRN IV 04/05/17 08:30 04/05/17 16:21 (Zofran Inj) 4 mg UNSCH PRN IV 04/05/17 08:30 (Tylenol) 650 mg UNSCH PRN PO 04/05/17 08:30 (Benadryl) 25 mg UNSCH PRN PO 04/05/17 08:30 (Nitrostat Sl) 0.4 mg UNSCH PRN SL 04/05/17 08:30 (Catapres) 0.1 mg UNSCH PRN PO 04/05/17 08:30 (Epogen Inj) 2,000 units UNSCH PRN IV 04/05/17 08:30 04/05/17 16:21 (Gelfoam 12 Mm/7 Mm Top) 1 foam UNSCH PRN TOP 04/05/17 08:30 (Proair Hfa Inh) 2 puff Q6H PRN INH 04/05/17 12:15 (Ecotrin Ec) 81 mg DAILY PO 04/06/17 09:00 (Lipitor) 40 mg HS PO 04/05/17 21:00 04/05/17 20:52 (Wellbutrin) 75 mg DAILY PO 04/06/17 09:00 (Rocaltrol) 0.5 mcg DAILY PO 04/06/17 09:00 (Tums Chew) 1,000 mg Q4HR CHEW 04/05/17 16:00 04/06/17 05:38 (Flexeril) 10 mg BID PRN PO 04/05/17 12:15 (Neurontin) 100 mg TID PO 04/05/17 13:00 04/05/17 18:48 (Synthroid) 50 mcg DAILY@06 PO 04/06/17 06:00 04/06/17 05:40 (Proamatine) 10 mg TID@07,12,17 PO 04/05/17 17:00 04/06/17 05:40 (Protonix) 40 mg DAILY PO 04/06/17 09:00 (Carafate) 1 gm BIDAC PO 04/05/17 16:00 04/06/17 05:40 (Desyrel) 100 mg HS PO 04/05/17 21:00 04/05/17 20:52 Assessment and Plan Problem List: (1) Hyperkalemia Status: Acute Plan: K 4.1 this AM (2) Chest pain Status: Acute Plan: Cardiology consulted. Stress test started yesterday and 2nd part today. No chest pain noted this morning. (3) Hypocalcemia Status: Resolved Plan: Calcium at 7.3 corrected calcium ordered and will replace if needed (4) End stage renal disease Status: Acute Plan: Dr. Villagran consulted and managing (5) Leukocytosis Status: Acute Plan: WBC normal today at 7.3 admission 17.3. Chest Xray with no acute findings. BC pending thus far negative. Patient has remained afebrile. No source of infection noted will continue to monitor (6) Generalized weakness Status: Acute Plan: PT/OT ordered (7) Morbid obesity Status: Chronic Plan: Weight loss encouraged. Renal diet (8) Insomnia Status: Acute Plan: Reports that she did not sleep well last night. Trazodone increased. Assessment and Plan Assessment and plan discussed with Dr. Bustos Discharge Planning Home Physician Attestation I and the MEDICAL SECRETARY RECEPTIONIST have both examined this patient and reviewed this note and I agree with these findings and plan of care. Bryan Bustos DO Problem Qualifiers (1) Chest pain: Qualified Code: R07.9 - Chest pain, unspecified type (2) Leukocytosis: Qualified Code: D72.829 - Leukocytosis, unspecified type Tami Owens [facility] Apr 06, 2017 09:51
[2017-04-06] MEDS ORDERED: PILL SPLITTER OTHER PRN (11:00)
--- NOTE | 2017-04-06 11:10 | HHI.NPPN ---
Subjective History of Present Illness 56 year old with ESRD, Asthma, CP Review of Systems General Constitutional: Fatigue Objective Data Data 04/05/17 04/06/17 19:00 07:00 Intake Total 720 ml Output Total 2500 ml Balance -2500 ml 720 ml Intake Oral 720 ml Output Hemodialysis 2500 ml # Voids 1 Vital Signs Date Time Temp Pulse Resp B/P Pulse Ox O2 Delivery O2 Flow Rate FiO2 04/06/17 07:56 92 21 04/06/17 04:00 96.7 98 18 101/51 95 04/06/17 00:00 96.9 100 18 113/59 95 04/05/17 21:40 95 Nasal Cannula 1.00 04/05/17 20:00 96.5 94 18 118/60 95 04/05/17 12:00 96.5 85 18 111/69 95 -: 04/06/17 0634 04/06/17 0624 Physical Exam General Appearance: Well Developed Neck Neck Exam: Neck Supple Pulmonary Resp Exam: Clear Bilaterally, Breath Sounds Equal Cardiology CV Exam: Regular, Normal Sinus Rhythm, Good Perfusion Extremeties Extremities Exam: Trace Edema Assessment/Plan Problem List: (1) End stage renal disease Plan: seen during hemodialysis UF 1.5 L 2 K bath tolerating it well OK to discharge her continue supportive care (2) Morbid obesity Plan: weight loss recommended (3) Hyperkalemia Plan: hemodialysis lolw k diet (4) Generalized weakness Plan: await c/sFrank Cedeno MD Apr 06, 2017 11:10
[2017-04-06] MEDS: buPROPion HCL 75 MG TAB PO SCH (12:03)
[2017-04-06] MEDS: CALCITRIOL 0.25 MCG CAP PO SCH (12:03)
[2017-04-06] MEDS: PANTOPRAZOLE SOD 40 MG DELAYED RELEASE TAB PO SCH (12:03)
[2017-04-06] MEDS: ASPIRIN EC 81 MG TABEC PO SCH (12:04)
[2017-04-06] MEDS: SODIUM CHLORIDE 0.9% FLUSH 10 ML FLUSH IV FLUSH SCH ×2 (12:04→21:21)
[2017-04-06] MEDS ORDERED: CYCLOBENZAPRINE HCL 10 MG TAB PO ONE (12:45)
--- NOTE | 2017-04-06 15:07 | RADRPT ---
EXAM DATE/TIME: 04/05/2017 09:43 [place] COMPARISON: No previous studies available for comparison. INDICATIONS : Substernal chest pain radiating to back. Angina. Congestive heart failure. DOSE: 30.2 mCi Tc99m Myoview at stress. 30.1 mCi Tc99m Myoview at rest. 0.4 mg Lexiscan STRESS SYMPTOMS: None noted. EJECTION FRACTION: > 70% MEDICAL HISTORY : Hypertension. Diverticulitis. Chronic obstructive pulmonary disease. Asthma. SURGICAL HISTORY : Cholecystectomy. Hysterectomy. Thyroidectomy. ENCOUNTER: Initial ACUITY: 1 day PAIN SCALE: 2/10 LOCATION: Substernal chest TECHNIQUE: The patient underwent pharmacologic stress with infusion of prescribed dose. Continuous ECG tracing was monitored during stress. Gated SPECT imaging was performed after stress and conventional SPECT i maging was performed at rest. The examination was performed on a SPECT/CT scanner, both attenuation and non-corrected datasets were reviewed. FINDINGS: DISTRIBUTION: The maximum perfused segment at stress is in the anterior wall. PERFUSION STUDY: The pattern of perfusion at stress is within normal limits. GATED STUDY: There is intact wall motion and thickening without hypokinetic or dyskinetic segments. CONCLUSION: Normal examination. RISK CATEGORY: Low (<1% Annual Mortality Rate) Damián Chung MD on April 06, 2017 at 15:02 Board Certified Radiologist. This report was verified electronically.
--- NOTE | 2017-04-06 17:56 | PD.CARD.PN ---
Subjective Subjective Remarks No CP or SOB, feels better Objective Medications Current Medications Medications (Trade) Dose Ordered Sig/Mary Grace Route Start Time Stop Time Status Last Admin (NS Flush) 2 ml UNSCH PRN IVF 04/04/17 14:15 04/04/17 15:32 (NS Flush) 2 ml UNSCH PRN IV FLUSH 04/04/17 16:45 (NS Flush) 2 ml BID IV FLUSH 04/04/17 21:00 04/06/17 12:04 (Tylenol) 650 mg Q4H PRN PO 04/04/17 18:00 (Zofran Inj) 4 mg Q6H PRN IVP 04/04/17 18:00 (Narcan Inj) 0.4 mg UNSCH PRN IV 04/04/17 16:45 (Yelena-Colace) 1 tab BID PO 04/04/17 21:00 04/05/17 20:51 (Milk Of Magnesia Liq) 30 ml Q12HR PRN PO 04/04/17 21:00 (Senokot) 17.2 mg Q12HR PRN PO 04/04/17 21:00 (Dulcolax Supp) 10 mg DAILY PRN RECTAL 04/04/17 18:00 (Lactulose Liq) 30 ml DAILY PRN PO 04/04/17 18:00 Acetaminophen/ Codeine Phosphate 1 tab 1 tab Q4H PRN PO 04/05/17 02:30 04/06/17 16:46 (NS 1000 ml Inj) 1,000 ml @ 0 mls/hr Q0M PRN IV 04/05/17 08:30 Heparin Sodium (Porcine) 8000 units 8,000 units UNSCH PRN IVF 04/05/17 08:30 Sodium Chloride 1,000 ml @ 200 mls/hr Q5H PRN IV 04/05/17 08:30 (NS 1000 ml Inj) 1,000 ml @ 0 mls/hr Q0M PRN IV 04/05/17 08:30 (Mannitol Inj) 12.5 gm UNSCH PRN IV 04/05/17 08:30 (Albumin 25% Inj) 25 gm UNSCH PRN IV 04/05/17 08:30 (NS Flush) 5 ml UNSCH PRN IV FLUSH 04/05/17 08:30 (Heparin Inj) UNSCH PRN .XX 04/05/17 08:30 04/05/17 16:22 (Gentamicin (Dialysis) Inj) 20 mg UNSCH PRN IV 04/05/17 08:30 04/05/17 16:21 (Zofran Inj) 4 mg UNSCH PRN IV 04/05/17 08:30 (Tylenol) 650 mg UNSCH PRN PO 04/05/17 08:30 (Benadryl) 25 mg UNSCH PRN PO 04/05/17 08:30 (Nitrostat Sl) 0.4 mg UNSCH PRN SL 04/05/17 08:30 (Catapres) 0.1 mg UNSCH PRN PO 04/05/17 08:30 (Epogen Inj) 2,000 units UNSCH PRN IV 04/05/17 08:30 04/05/17 16:21 (Gelfoam 12 Mm/7 Mm Top) 1 foam UNSCH PRN TOP 04/05/17 08:30 (Proair Hfa Inh) 2 puff Q6H PRN INH 04/05/17 12:15 (Ecotrin Ec) 81 mg DAILY PO 04/06/17 09:00 04/06/17 12:04 (Lipitor) 40 mg HS PO 04/05/17 21:00 04/05/17 20:52 (Wellbutrin) 75 mg DAILY PO 04/06/17 09:00 04/06/17 12:03 (Rocaltrol) 0.5 mcg DAILY PO 04/06/17 09:00 04/06/17 12:03 (Tums Chew) 1,000 mg Q4HR CHEW 04/05/17 16:00 04/06/17 16:46 (Flexeril) 10 mg BID PRN PO 04/05/17 12:15 (Neurontin) 100 mg TID PO 04/05/17 13:00 04/06/17 16:46 (Synthroid) 50 mcg DAILY@06 PO 04/06/17 06:00 04/06/17 05:40 (Proamatine) 10 mg TID@07,12,17 PO 04/05/17 17:00 04/06/17 16:46 (Protonix) 40 mg DAILY PO 04/06/17 09:00 04/06/17 12:03 (Carafate) 1 gm BIDAC PO 04/05/17 16:00 04/06/17 16:47 (Desyrel) 150 mg HS PO 04/06/17 21:00 (Pill Splitter) 1 ea UNSCH PRN OTHER 04/06/17 11:00 Vital Signs / I&O Vital Signs Date Time Temp Pulse Resp B/P Pulse Ox O2 Delivery O2 Flow Rate FiO2 04/06/17 16:00 96.6 94 18 116/55 99 04/06/17 12:00 96.9 99 18 117/50 98 04/06/17 07:56 92 21 04/06/17 04:00 96.7 98 18 101/51 95 04/06/17 00:00 96.9 100 18 113/59 95 04/05/17 21:40 95 Nasal Cannula 1.00 04/05/17 20:00 96.5 94 18 118/60 95 I/O 04/05/17 04/05/17 04/05/17 04/06/17 04/06/17 04/06/17 07:00 15:00 23:00 07:00 15:00 23:00 Intake Total 0 ml 240 ml 480 ml 600 ml Output Total 2500 ml 1500 ml Balance 0 ml -2260 ml 480 ml -900 ml Intake Oral 0 ml 240 ml 480 ml 600 ml Output Hemodialysis 2500 ml 1500 ml # Voids 1 0 Physical Exam GENERAL: In NAD SKIN: Warm and dry. HEAD: Normocephalic. EYES: No scleral icterus. No injection or drainage. NECK: Supple, trachea midline. No JVD or lymphadenopathy. CARDIOVASCULAR: Regular rate and rhythm without murmurs, gallops, or rubs. RESPIRATORY: Breath sounds equal bilaterally. No accessory muscle use. GASTROINTESTINAL: Abdomen soft, non-tender, nondistended, obese MUSCULOSKELETAL: No cyanosis, trace edema. Laboratory Laboratory Tests Test 04/06/17 04/06/17 06:24 06:34 Sodium Level 141 MEQ/L Potassium Level 4.4 MEQ/L Chloride Level 101 MEQ/L Carbon Dioxide Level 27.7 MEQ/L Anion Gap 12 MEQ/L Blood Urea Nitrogen 58 MG/DL Creatinine 8.80 MG/DL Estimat Glomerular Filtration 6 ML/MIN Rate Random Glucose 74 MG/DL Calcium Level 7.3 MG/DL Protein Corrected Calcium MG/DL Total Protein 8.6 GM/DL Triglycerides Level 120 MG/DL Cholesterol Level 120 MG/DL LDL Cholesterol 56 MG/DL HDL Cholesterol 40.3 MG/DL Cholesterol/HDL Ratio 2.97 RATIO Free Thyroxine 1.18 NG/DL Free Triiodothyronine (T3) 2.26 PG/ML pg/dL Thyroid Stimulating Hormone 3.680 uIU/ML 3rd Gen White Blood Count 7.3 TH/MM3 Red Blood Count 4.13 MIL/MM3 Hemoglobin 12.4 GM/DL Hematocrit 39.2 % Mean Corpuscular Volume 94.8 FL Mean Corpuscular Hemoglobin 30.0 PG Mean Corpuscular Hemoglobin 31.7 % Concent Red Cell Distribution Width 15.2 % Platelet Count 227 TH/MM3 Mean Platelet Volume 8.0 FL Neutrophils (%) (Auto) 71.3 % Lymphocytes (%) (Auto) 7.8 % Monocytes (%) (Auto) 9.5 % Eosinophils (%) (Auto) 11.0 % Basophils (%) (Auto) 0.4 % Neutrophils # (Auto) 5.2 TH/MM3 Lymphocytes # (Auto) 0.6 TH/MM3 Monocytes # (Auto) 0.7 TH/MM3 Eosinophils # (Auto) 0.8 TH/MM3 Basophils # (Auto) 0.0 TH/MM3 CBC Comment DIFF FINAL Differential Comment Imaging Last Impressions Myocardial Perfusion Scan Nuc Med 04/05/17 0000 Signed Impressions: Service Date/Time: March 09:43 - CONCLUSION: Normal examination. RISK CATEGORY: Low (<1%% Annual Mortality Rate) Damián Chung MD Chest X-Ray 04/04/17 1405 Signed Impressions: Service Date/Time: Tuesday, April 04, 2017 14:41 - CONCLUSION: No acute disease. Ronn Corona MD FACR Assessment and Plan Problem List: (1) Chest pain (2) ESRD on hemodialysis (3) COPD (chronic obstructive pulmonary disease) (4) DM (diabetes mellitus) (5) Hypertension (6) Morbidly obese Assessment and Plan No angina or CHF symptoms. Nuclear stress test with no evidence of ischemia. CP was likely of noncardiac origin. Patient reassured. Continue current program. Increase activity. Problem Qualifiers (1) Chest pain: Qualified Code: R07.9 - Chest pain, unspecified type Hi Macedo MD Apr 06, 2017 17:56
[2017-04-06] MEDS: ATORVASTATIN 40 MG TAB PO SCH (21:19)
[2017-04-06] MEDS: traZODone HCL 100 MG TAB PO SCH (21:20)
[2017-04-06] MEDS: CYCLOBENZAPRINE HCL 10 MG TAB PO PRN (22:21)
[2017-04-07] VITALS (7 sets, daily range): BP systolic 93–130; BP diastolic 55–74; PULSE 67–95; RESP 16–18; TEMP 95.5–98.9; O2SAT 95–99
[2017-04-07] MEDS: CALCIUM CARBONATE 500 MG CHEWABLE TAB CHEW SCH ×6 (04:00→21:14)
[2017-04-07] MEDS: MIDODRINE 5 MG TAB PO SCH ×3 (05:42→17:18)
[2017-04-07] MEDS: LEVOTHYROXINE SODIUM 50 MCG TAB PO SCH (05:42)
[2017-04-07] MEDS: SUCRALFATE 1 GM TAB PO SCH ×2 (06:38→17:18)
[2017-04-07] MEDS: ASPIRIN EC 81 MG TABEC PO SCH (10:08)
[2017-04-07] MEDS: CALCITRIOL 0.25 MCG CAP PO SCH (10:08)
[2017-04-07] MEDS: GABAPENTIN 100 MG CAP PO SCH ×3 (10:08→17:18)
[2017-04-07] MEDS: PANTOPRAZOLE SOD 40 MG DELAYED RELEASE TAB PO SCH (10:08)
[2017-04-07] MEDS: buPROPion HCL 75 MG TAB PO SCH (10:08)
[2017-04-07] MEDS: SODIUM CHLORIDE 0.9% FLUSH 10 ML FLUSH IV FLUSH SCH ×2 (10:10→21:15)
[2017-04-07] MEDS: DOCUSATE SODIUM 50 MG/SENNA 8.6 MG TAB PO SCH ×2 (10:10→21:15)
--- NOTE | 2017-04-07 11:26 | HHI.PR ---
Subjective Remarks resting quietly slept a bit better Objective Vital Signs Date Time Temp Pulse Resp B/P Pulse Ox O2 Delivery O2 Flow Rate FiO2 04/07/17 04:00 95 04/07/17 04:00 97.3 77 18 98/70 98 04/07/17 00:00 97.6 83 18 95/74 97 04/07/17 00:00 94 04/06/17 21:48 99 04/06/17 20:00 97.3 76 18 101/68 98 04/06/17 20:00 86 04/06/17 16:00 96.6 94 18 116/55 99 04/06/17 12:00 96.9 99 18 117/50 98 I/O 04/06/17 04/06/17 04/06/17 04/07/17 04/07/17 04/07/17 06:59 14:59 22:59 06:59 14:59 22:59 Intake Total 480 ml 840 ml 120 ml Output Total 1500 ml Balance 480 ml -1500 ml 840 ml 120 ml Intake Oral 480 ml 840 ml 120 ml Output Hemodialysis 1500 ml # Voids 1 0 Result Diagram: 04/06/17 0634 04/06/17 0624 Objective Remarks GENERAL: Well-nourished, well-developed patient.obese black female SKIN: Warm and dry. HEAD: Normocephalic. EYES: No scleral icterus. No injection or drainage. NECK: Supple, trachea midline. No JVD or lymphadenopathy. CARDIOVASCULAR: Regular rate and rhythm without murmurs, gallops, or rubs. RESPIRATORY: Breath sounds equal bilaterally. No accessory muscle use. GASTROINTESTINAL: Abdomen soft, non-tender, nondistended. obese EXTREMITIES: No cyanosis, or 2 plus edema. NEUROLOGICAL: Awake, alert, and oriented x 3. Non-focal. Medications and IVs Inpatient Medications Acetaminophen (Tylenol) 650 mg UNSCH PRN PO for headach, pain, temp > 101F; Start 04/05/17 at 08:30 Acetaminophen/ Codeine Phosphate (Tylenol-Codeine #3) 1 tab Q4H PRN PO PAIN 6- 10 Last administered on 04/06/17t 21:19; Start 04/05/17 at 02:30 Albumin Human (Albumin 25% Inj) 25 gm UNSCH PRN IV WITH DIALYSIS; Start at 08:30 Albuterol Sulfate (Proair Hfa Inh) 2 puff Q6H PRN INH SHORTNESS OF BREATH; Start 04/05/17 at 12:15 Aspirin (Ecotrin Ec) 81 mg DAILY PO Last administered on 04/07/17 10:08; Start 04/06/17 at 09:00 Atorvastatin Calcium (Lipitor) 40 mg HS PO Last administered on 04/06/17 21:19 ; Start 04/05/17 at 21:00 Bisacodyl (Dulcolax Supp) 10 mg DAILY PRN RECTAL SEVERE CONSITIPATION; Start at 18:00 Bupropion HCl (Wellbutrin) 75 mg DAILY PO Last administered on 04/07/17 10:08 ; Start 04/06/17 at 09:00 Calcitriol (Rocaltrol) 0.5 mcg DAILY PO Last administered on 04/07/17 10:08; Start 04/06/17 at 09:00 Calcium Carbonate (Tums Chew) 1,000 mg Q4HR CHEW Last administered on 10:08; Start 04/05/17 at 16:00 Calcium Gluconate (Calcium Gluconate Inj) 1 gm ONCE ONCE SLOW IVP Last administered on 04/04/17 15:32; Start 04/04/17 at 15:15; Stop 04/04/17 at 16:33 ; Status DC Calcium Gluconate/ Sodium Chloride (Calcium Gluconate Inj/NS Inj) 100 ml @ 100 mls/hr ONCE ONCE IV Last administered on 04/05/17 11:16; Start 04/05/17 at 09 :00; Stop 04/05/17 at 09:59; Status DC Clonidine (Catapres) 0.1 mg UNSCH PRN PO for BP > 180/100 X 2 readings; Start 04/05/17 at 08:30 Cyclobenzaprine HCl (Flexeril) 10 mg NOW ONCE PO Last administered on 12:43; Start 04/06/17 at 12:45; Stop 04/06/17 at 12:46; Status DC Dextrose (D50w (Vial) Inj) 50 ml ONCE ONCE IV PUSH Last administered on 15:29; Start 04/04/17 at 15:15; Stop 04/04/17 at 16:33; Status DC Diphenhydramine HCl (Benadryl) 25 mg UNSCH PRN PO for hives/itching/anaphylaxis ; Start 04/05/17 at 08:30 Epoetin Velasquez (Epogen Inj) 2,000 units UNSCH PRN IV WITH DIALYSIS Last administered on 04/05/17 16:21; Start 04/05/17 at 08:30 Gabapentin (Neurontin) 100 mg TID PO Last administered on 04/07/17 10:08; Start 04/05/17 at 13:00 Gelatin 1 foam 1 foam UNSCH PRN TOP SEE LABEL COMMENTS; Start 04/05/17 at 08:30 Gentamicin Sulfate (Gentamicin (Dialysis) Inj) 20 mg UNSCH PRN IV WITH DIALYSIS Last administered on 04/05/17 16:21; Start 04/05/17 at 08:30 Heparin Sodium (Porcine) (Heparin Inj) UNSCH PRN .XX WITH DIALYSIS Last administered on 04/05/17 16:22; Start 04/05/17 at 08:30 Heparin Sodium (Porcine) 8000 units 8,000 units UNSCH PRN IVF WITH DIALYSIS; Start 04/05/17 at 08:30 Insulin Human Regular (NovoLIN R INJ) 10 units ONCE ONCE IV PUSH Last administered on 04/04/17 15:32; Start 04/04/17 at 15:30; Stop 04/04/17 at 16:33 ; Status DC Lactulose (Lactulose Liq) 30 ml DAILY PRN PO SEVERE CONSITIPATION; Start at 18:00 Levothyroxine Sodium (Synthroid) 50 mcg DAILY@06 PO Last administered on 05:42; Start 04/06/17 at 06:00 Magnesium Hydroxide (Milk Of Magnesia Liq) 30 ml Q12HR PRN PO MILD - MODERATE CONSTIPATION; Start 04/04/17 at 21:00 Mannitol (Mannitol Inj) 12.5 gm UNSCH PRN IV WITH DIALYSIS; Start 04/05/17 at 08:30 Midodrine (Proamatine) 10 mg TID@07,12,17 PO Last administered on 04/07/17 05: 42; Start 04/05/17 at 17:00 Miscellaneous (Pill Splitter) 1 ea UNSCH PRN OTHER SEE LABEL COMMENTS; Start at 11:00 Naloxone HCl (Narcan Inj) 0.4 mg UNSCH PRN IV SEE LABEL COMMENTS; Start at 16:45 Nitroglycerin (Nitrostat Sl) 0.4 mg UNSCH PRN SL CHEST PAIN; Start 04/05/17 at 08:30 Ondansetron HCl (Zofran Inj) 4 mg UNSCH PRN IV WITH DIALYSIS; Start 04/05/17 at 08:30 Pantoprazole Sodium (Protonix) 40 mg DAILY PO Last administered on 04/07/17 10 :08; Start 04/06/17 at 09:00 Senna/Docusate Sodium (Yelena-Colace) 1 tab BID PO Last administered on 10:10; Start 04/04/17 at 21:00 Sennosides (Senokot) 17.2 mg Q12HR PRN PO MODERATE - SEVERE CONSTIPATION; Start 04/04/17 at 21:00 Sodium Chloride (NS 1000 ml Inj) 1,000 ml @ 0 mls/hr Q0M PRN IV WITH DIALYSIS; Start 04/05/17 at 08:30 Sodium Chloride (NS Flush) 5 ml UNSCH PRN IV FLUSH WITH DIALYSIS; Start at 08:30 Sucralfate (Carafate) 1 gm BIDAC PO Last administered on 04/07/17 06:38; Start 04/05/17 at 16:00 Trazodone HCl (Desyrel) 150 mg HS PO Last administered on 04/06/17 21:20; Start 04/06/17 at 21:00 Assessment and Plan Problem List: (1) ESRD (end stage renal disease) Status: Chronic Plan: continue dialysis (2) Hypertension Status: Resolved Plan: bp stable Assessment and Plan continue dialysis follow wbc await final on cultures have pt eval and ambulate anticipate dc in 24 48 hours Discussed Condition With patient JuliBryan Jaleel HENDRICKSON Apr 07, 2017 11:26
--- NOTE | 2017-04-07 13:38 | HHI.NPPN ---
Subjective History of Present Illness 56 year old with ESRD, Asthma, CP Review of Systems General Constitutional: Fatigue Objective Data Data 04/06/17 04/07/17 19:00 07:00 Intake Total 600 ml 360 ml Output Total 1500 ml Balance -900 ml 360 ml Intake Oral 600 ml 360 ml Output Hemodialysis 1500 ml # Voids 0 Vital Signs Date Time Temp Pulse Resp B/P Pulse Ox O2 Delivery O2 Flow Rate FiO2 04/07/17 12:00 97.7 88 18 95/71 97 04/07/17 08:00 96.6 87 18 130/64 98 04/07/17 04:00 95 04/07/17 04:00 97.3 77 18 98/70 98 04/07/17 00:00 97.6 83 18 95/74 97 04/07/17 00:00 94 04/06/17 21:48 99 04/06/17 20:00 97.3 76 18 101/68 98 04/06/17 20:00 86 04/06/17 16:00 96.6 94 18 116/55 99 -: 04/06/17 0634 04/06/17 0624 Physical Exam General Appearance: Well Developed Neck Neck Exam: Neck Supple Pulmonary Resp Exam: Clear Bilaterally, Breath Sounds Equal Cardiology CV Exam: Regular, Normal Sinus Rhythm, Good Perfusion Extremeties Extremities Exam: Trace Edema Assessment/Plan Problem List: (1) End stage renal disease Plan: HD MWF Calcium better she has s/p Parathyroidectomy continue supportive care (2) Morbid obesity Plan: weight loss recommended (3) Hyperkalemia Plan: hemodialysis low k diet (4) Generalized weakness Plan: await c/s. Frank Villagran MD Apr 07, 2017 13:38
[2017-04-07] MEDS: CYCLOBENZAPRINE HCL 10 MG TAB PO PRN (13:45)
[2017-04-07 13:51] LABS: AUTOMATED NEUTROPHIL # 4.8 TH/MM3 (1.8-7.7); BASOPHIL % 0.6 % (0.0-2.0); EOSINOPHIL # 0.6 TH/MM3 (0-0.4); EOSINOPHIL % 9.4 % (0.0-4.0); HEMATOCRIT 41.6 % (35.0-46.0); HEMO FLAGS DIFF FINAL; LYMPH % 7.7 % (9.0-44.0); LYMPHOCYTE # 0.5 TH/MM3 (1.0-4.8); MEAN CORPUSCULAR HEMOGLOBIN 29.3 PG (27.0-34.0); MEAN CORPUSCULAR HGB CONC 30.6 % (32.0-36.0); MONO % 11.2 % (0.0-8.0); NEUT % 71.1 % (16.0-70.0); PLATELET COUNT 229 TH/MM3 (150-450); RED BLOOD COUNT 4.33 MIL/MM3 (4.00-5.30); RED CELL DISTRIBUTION WIDTH 15.2 % (11.6-17.2); WHITE BLOOD COUNT 6.8 TH/MM3 (4.0-11.0)
[2017-04-07 14:23] LABS: BICARBONATE 26.8 MEQ/L (21.0-32.0); POTASSIUM 4.8 MEQ/L (3.5-5.1)
[2017-04-07] MEDS: ACETAMINOPHEN/CODEINE 300 MG/30 MG TAB PO PRN (21:14)
[2017-04-07] MEDS: ATORVASTATIN 40 MG TAB PO SCH (21:15)
[2017-04-07] MEDS: traZODone HCL 100 MG TAB PO SCH (21:15)
[2017-04-08] VITALS (13 sets, daily range): BP systolic 73–124; BP diastolic 35–98; PULSE 85–102; RESP 17–18; TEMP 96.1–96.8; O2SAT 92–96
[2017-04-08] MEDS: CALCIUM CARBONATE 500 MG CHEWABLE TAB CHEW SCH ×7 (00:17→23:20)
[2017-04-08] MEDS: SUCRALFATE 1 GM TAB PO SCH ×2 (05:15→17:08)
[2017-04-08] MEDS: LEVOTHYROXINE SODIUM 50 MCG TAB PO SCH (05:15)
[2017-04-08] MEDS: MIDODRINE 5 MG TAB PO SCH ×3 (05:16→17:08)
[2017-04-08 06:52] LABS: AUTOMATED NEUTROPHIL # 5.6 TH/MM3 (1.8-7.7); BASOPHIL % 0.4 % (0.0-2.0); EOSINOPHIL # 0.6 TH/MM3 (0-0.4); EOSINOPHIL % 8.1 % (0.0-4.0); HEMATOCRIT 38.1 % (35.0-46.0); HEMO FLAGS DIFF FINAL; LYMPH % 8.2 % (9.0-44.0); LYMPHOCYTE # 0.6 TH/MM3 (1.0-4.8); MEAN CELL VOLUME 95.4 FL (80.0-100.0); MEAN CORPUSCULAR HGB CONC 31.5 % (32.0-36.0); MONO % 9.2 % (0.0-8.0); NEUT % 74.1 % (16.0-70.0); PLATELET COUNT 233 TH/MM3 (150-450); RED BLOOD COUNT 3.99 MIL/MM3 (4.00-5.30); WHITE BLOOD COUNT 7.5 TH/MM3 (4.0-11.0)
[2017-04-08 07:15] LABS: BICARBONATE 26.1 MEQ/L (21.0-32.0); POTASSIUM 4.8 MEQ/L (3.5-5.1)
[2017-04-08 07:41] LABS: CALCIUM-PROTEIN CORRECTED 6.9 MG/DL (8.5-10.1)
[2017-04-08] MEDS: GABAPENTIN 100 MG CAP PO SCH ×3 (08:25→17:08)
[2017-04-08] MEDS: CALCITRIOL 0.25 MCG CAP PO SCH (08:25)
[2017-04-08] MEDS: buPROPion HCL 75 MG TAB PO SCH (08:25)
[2017-04-08] MEDS: ASPIRIN EC 81 MG TABEC PO SCH (08:25)
[2017-04-08] MEDS: PANTOPRAZOLE SOD 40 MG DELAYED RELEASE TAB PO SCH (08:25)
[2017-04-08] MEDS: DOCUSATE SODIUM 50 MG/SENNA 8.6 MG TAB PO SCH ×2 (08:25→20:23)
[2017-04-08] MEDS: SODIUM CHLORIDE 0.9% FLUSH 10 ML FLUSH IV FLUSH SCH ×2 (08:29→20:27)
[2017-04-08] MEDS ORDERED: SODIUM CHLOR 0.9% 1000 ML INJ 1,000 ML IV ONE (10:45)
--- NOTE | 2017-04-08 12:56 | HHI.NPPN ---
Subjective History of Present Illness 56 year old with ESRD, Asthma, CP Review of Systems General Constitutional: Fatigue Objective Data Data 04/07/17 04/08/17 18:59 06:59 Intake Total 480 ml Balance 480 ml Intake Oral 480 ml # Voids 0 # Bowel Movements 0 Vital Signs Date Time Temp Pulse Resp B/P Pulse Ox O2 Delivery O2 Flow Rate FiO2 04/08/17 12:37 96.2 93 18 94/53 92 04/08/17 10:45 73/55 04/08/17 08:40 96.7 90 18 73/35 96 77/53 04/08/17 08:20 93 Nasal Cannula 2.00 04/08/17 08:00 93 04/08/17 04:00 96.3 93 17 89/53 94 04/08/17 00:00 96.3 89 18 103/65 96 04/07/17 22:14 16 04/07/17 20:00 95.5 90 16 93/62 96 04/07/17 16:00 97.0 89 16 109/64 99 -: 04/08/17 0558 04/08/17 0558 Physical Exam General Appearance: Well Developed Neck Neck Exam: Neck Supple Pulmonary Resp Exam: Clear Bilaterally, Breath Sounds Equal Cardiology CV Exam: Regular, Normal Sinus Rhythm, Good Perfusion Extremeties Extremities Exam: Trace Edema Assessment/Plan Problem List: (1) End stage renal disease Plan: HD MWF Calcium stable she has s/p Parathyroidectomy continue supportive care (2) Morbid obesity Plan: weight loss recommended (3) Hyperkalemia Plan: hemodialysis low k diet (4) Generalized weakness Plan: c/s.neg for 4 days Frank Villagran MD Apr 08, 2017 12:56
--- NOTE | 2017-04-08 13:03 | ECHRPT ---
Indication: Heart failure, unspecified CONCLUSIONS Poor echocardiographic windows The left ventricular systolic function is normal with an estimated ejection fraction in the range of 50% No significant valvulopathies noted Recommendations: Repeat study BP: 107 / 56 HR: 88 Rhythm: MEASUREMENTS (Male / Female) Normal Values Technical Quality:Very technically difficult study M-MODE Aortic Root Diameter MM 3.1 cm LA Systolic Diameter MM 2.9 cm LA Ao Ratio MM 0.9 DOPPLER Mitral E Point Velocity 85.5 cm/s Mitral A Point Velocity 130.0 cm/s Mitral E to A Ratio 0.7 FINDINGS LEFT VENTRICLE The left ventricular systolic function is normal with an estimated ejection fraction in the range of 55- 60 The left ventricle is not well visualized. This study was not technically sufficient to allow for evaluation of lv size and thickness RIGHT VENTRICLE Normal right ventricular size and systolic function. LEFT ATRIUM The left atrial size is normal. RIGHT ATRIUM The right atrial size is normal. ATRIAL SEPTUM Normal atrial septal thickness without atrial level shunting by limited color doppler interrogation. AORTA The aortic root and proximal ascending aorta are not well visualized. MITRAL VALVE The mitral valve is not well visualized. . No mitral valve stenosis or regurgitation. AORTIC VALVE The aortic valve is not well visualized. No aortic valve stenosis or regurgitation. TRICUSPID VALVE The tricuspid valve is not well visualized. No tricuspid valve stenosis or regurgitation. PULMONARY VALVE The pulmonary valve is not well visualized. VESSELS The inferior vena cava was not well visualized. PERICARDIUM No pericardial effusion. Allen Borja MD (Electronically Signed) Final Date:08 April 2017 13:02
--- NOTE | 2017-04-08 13:18 | HHI.PR ---
Subjective Remarks resting quietly slept a bit better calcium remains low will increase supplementation and ck levels in am Objective Vital Signs Date Time Temp Pulse Resp B/P Pulse Ox O2 Delivery O2 Flow Rate FiO2 04/08/17 12:37 96.2 93 18 94/53 92 04/08/17 10:45 73/55 04/08/17 08:40 96.7 90 18 73/35 96 77/53 04/08/17 08:20 93 Nasal Cannula 2.00 04/08/17 08:00 93 04/08/17 04:00 96.3 93 17 89/53 94 04/08/17 00:00 96.3 89 18 103/65 96 04/07/17 22:14 16 04/07/17 20:00 95.5 90 16 93/62 96 04/07/17 16:00 97.0 89 16 109/64 99 I/O 04/07/17 04/07/17 04/07/17 04/08/17 04/08/17 04/08/17 06:59 14:59 22:59 06:59 14:59 22:59 Intake Total 120 ml 240 ml 240 ml Balance 120 ml 240 ml 240 ml Intake Oral 120 ml 240 ml 240 ml # Voids 0 0 # Bowel Movements 0 0 Result Diagram: 04/08/17 0558 04/08/17 0558 Objective Remarks GENERAL: Well-nourished, well-developed patient.obese black female SKIN: Warm and dry. HEAD: Normocephalic. EYES: No scleral icterus. No injection or drainage. NECK: Supple, trachea midline. No JVD or lymphadenopathy. CARDIOVASCULAR: Regular rate and rhythm without murmurs, gallops, or rubs. RESPIRATORY: Breath sounds equal bilaterally. No accessory muscle use. GASTROINTESTINAL: Abdomen soft, non-tender, nondistended. obese EXTREMITIES: No cyanosis, or 2 plus edema. NEUROLOGICAL: Awake, alert, and oriented x 3. Non-focal. Medications and IVs Inpatient Medications Acetaminophen (Tylenol) 650 mg UNSCH PRN PO for headach, pain, temp > 101F; Start 04/05/17 at 08:30 Acetaminophen/ Codeine Phosphate (Tylenol-Codeine #3) 1 tab Q4H PRN PO PAIN 6- 10 Last administered on 04/07/17t 21:14; Start 04/05/17 at 02:30 Albumin Human (Albumin 25% Inj) 25 gm UNSCH PRN IV WITH DIALYSIS; Start at 08:30 Albuterol Sulfate (Proair Hfa Inh) 2 puff Q6H PRN INH SHORTNESS OF BREATH; Start 04/05/17 at 12:15 Aspirin (Ecotrin Ec) 81 mg DAILY PO Last administered on 04/08/17 08:25; Start 04/06/17 at 09:00 Atorvastatin Calcium (Lipitor) 40 mg HS PO Last administered on 04/07/17 21:15 ; Start 04/05/17 at 21:00 Bisacodyl (Dulcolax Supp) 10 mg DAILY PRN RECTAL SEVERE CONSITIPATION; Start at 18:00 Bupropion HCl (Wellbutrin) 75 mg DAILY PO Last administered on 04/08/17 08:25 ; Start 04/06/17 at 09:00 Calcitriol (Rocaltrol) 0.5 mcg DAILY PO Last administered on 04/08/17 08:25; Start 04/06/17 at 09:00 Calcium Carbonate (Tums Chew) 1,000 mg Q4HR CHEW Last administered on 10:45; Start 04/05/17 at 16:00 Calcium Gluconate (Calcium Gluconate Inj) 1 gm ONCE ONCE SLOW IVP Last administered on 04/04/17 15:32; Start 04/04/17 at 15:15; Stop 04/04/17 at 16:33 ; Status DC Calcium Gluconate/ Sodium Chloride (Calcium Gluconate Inj/NS Inj) 100 ml @ 100 mls/hr ONCE ONCE IV Last administered on 04/05/17 11:16; Start 04/05/17 at 09 :00; Stop 04/05/17 at 09:59; Status DC Clonidine (Catapres) 0.1 mg UNSCH PRN PO for BP > 180/100 X 2 readings; Start 04/05/17 at 08:30 Cyclobenzaprine HCl (Flexeril) 10 mg BID PRN PO MUSCLE SPASM Last administered on 04/07/17 13:45; Start 04/05/17 at 12:15 Cyclobenzaprine HCl 10 mg 10 mg NOW ONCE PO Last administered on 04/06/17 12: 43; Start 04/06/17 at 12:45; Stop 04/06/17 at 12:46; Status DC Dextrose (D50w (Vial) Inj) 50 ml ONCE ONCE IV PUSH Last administered on 15:29; Start 04/04/17 at 15:15; Stop 04/04/17 at 16:33; Status DC Diphenhydramine HCl (Benadryl) 25 mg UNSCH PRN PO for hives/itching/anaphylaxis ; Start 04/05/17 at 08:30 Epoetin Velasquez (Epogen Inj) 2,000 units UNSCH PRN IV WITH DIALYSIS Last administered on 04/05/17 16:21; Start 04/05/17 at 08:30 Gabapentin (Neurontin) 100 mg TID PO Last administered on 04/08/17 08:25; Start 04/05/17 at 13:00 Gelatin 1 foam 1 foam UNSCH PRN TOP SEE LABEL COMMENTS; Start 04/05/17 at 08:30 Gentamicin Sulfate (Gentamicin (Dialysis) Inj) 20 mg UNSCH PRN IV WITH DIALYSIS Last administered on 04/05/17 16:21; Start 04/05/17 at 08:30 Heparin Sodium (Porcine) (Heparin Inj) UNSCH PRN .XX WITH DIALYSIS Last administered on 04/05/17 16:22; Start 04/05/17 at 08:30 Insulin Human Regular (NovoLIN R INJ) 10 units ONCE ONCE IV PUSH Last administered on 04/04/17 15:32; Start 04/04/17 at 15:30; Stop 04/04/17 at 16:33 ; Status DC Lactulose (Lactulose Liq) 30 ml DAILY PRN PO SEVERE CONSITIPATION; Start at 18:00 Levothyroxine Sodium (Synthroid) 50 mcg DAILY@06 PO Last administered on 05:15; Start 04/06/17 at 06:00 Magnesium Hydroxide (Milk Of Magnesia Liq) 30 ml Q12HR PRN PO MILD - MODERATE CONSTIPATION; Start 04/04/17 at 21:00 Mannitol (Mannitol Inj) 12.5 gm UNSCH PRN IV WITH DIALYSIS; Start 04/05/17 at 08:30 Midodrine (Proamatine) 10 mg TID@07,12,17 PO Last administered on 04/08/17 10: 44; Start 04/05/17 at 17:00 Miscellaneous (Pill Splitter) 1 ea UNSCH PRN OTHER SEE LABEL COMMENTS; Start at 11:00 Naloxone HCl (Narcan Inj) 0.4 mg UNSCH PRN IV SEE LABEL COMMENTS; Start at 16:45 Nitroglycerin (Nitrostat Sl) 0.4 mg UNSCH PRN SL CHEST PAIN; Start 04/05/17 at 08:30 Ondansetron HCl (Zofran Inj) 4 mg UNSCH PRN IV WITH DIALYSIS; Start 04/05/17 at 08:30 Pantoprazole Sodium (Protonix) 40 mg DAILY PO Last administered on 04/08/17 08 :25; Start 04/06/17 at 09:00 Senna/Docusate Sodium (Yelena-Colace) 1 tab BID PO Last administered on 08:25; Start 04/04/17 at 21:00 Sennosides (Senokot) 17.2 mg Q12HR PRN PO MODERATE - SEVERE CONSTIPATION; Start 04/04/17 at 21:00 Sodium Chloride (NS 1000 ml Inj) 1,000 ml @ 100 mls/hr Q10H ONCE IV Last administered on 04/08/17 10:46; Start 04/08/17 at 10:45; Stop 04/08/17 at 20:44 Sodium Chloride (NS Flush) 5 ml UNSCH PRN IV FLUSH WITH DIALYSIS; Start at 08:30 Sucralfate (Carafate) 1 gm BIDAC PO Last administered on 04/08/17 05:15; Start 04/05/17 at 16:00 Trazodone HCl (Desyrel) 150 mg HS PO Last administered on 04/07/17 21:15; Start 04/06/17 at 21:00 Assessment and Plan Problem List: (1) ESRD (end stage renal disease) Status: Chronic Plan: continue dialysis (2) Hypertension Status: Resolved Plan: bp stable Assessment and Plan continue dialysis follow wbc await final on cultures have pt eval and ambulate anticipate dc in 24 48 hours Discussed Condition With patient encouraged to take het TOUMS as she will need calcium to dc home Discharge Planning ck calcium again in Bryan Sahu DO Apr 08, 2017 13:18
[2017-04-08] MEDS: ATORVASTATIN 40 MG TAB PO SCH (20:23)
[2017-04-08] MEDS: traZODone HCL 100 MG TAB PO SCH (20:24)
[2017-04-09] VITALS (7 sets, daily range): BP systolic 96–115; BP diastolic 54–62; PULSE 86–102; RESP 16–20; TEMP 96.2–97.1; O2SAT 91–97
[2017-04-09] MEDS: CALCIUM CARBONATE 500 MG CHEWABLE TAB CHEW SCH ×4 (04:03→16:38)
[2017-04-09] MEDS: LEVOTHYROXINE SODIUM 50 MCG TAB PO SCH (05:55)
[2017-04-09] MEDS: MIDODRINE 5 MG TAB PO SCH ×3 (06:00→16:37)
[2017-04-09] MEDS: SUCRALFATE 1 GM TAB PO SCH ×2 (06:59→16:37)
[2017-04-09 07:53] LABS: CALCIUM-PROTEIN CORRECTED 6.9 MG/DL (8.5-10.1)
[2017-04-09] MEDS: DOCUSATE SODIUM 50 MG/SENNA 8.6 MG TAB PO SCH (09:00)
[2017-04-09] MEDS: GABAPENTIN 100 MG CAP PO SCH ×2 (09:22→13:00)
[2017-04-09] MEDS: SODIUM CHLORIDE 0.9% FLUSH 10 ML FLUSH IV FLUSH SCH (09:27)
[2017-04-09] MEDS ORDERED: TRAZ50TA12 PO (10:53)
--- NOTE | 2017-04-09 10:55 | HHI.FF ---
Face to Face Verification Diagnosis: (1) ESRD on hemodialysis (2) Morbidly obese (3) DM (diabetes mellitus) (4) Hypertension Home Health Nursing Order: Medical education Signs/symptoms of disease process Diabetic education I have seen patient Aleksandra Jenkins on 04/09/17. My clinical findings support the need for the requested home health care services because: Deconditioned w/ increased weakness I certify that my clinical findings support that this patient is homebound because: Need for psychosocial assistance Tami Owens [facility] Apr 09, 2017 10:55
--- NOTE | 2017-04-09 11:00 | HHI.DS ---
Discharge Summary Admission Date Apr 04, 2017 at 16:46 Discharge Date: Apr 09, 2017 Admitting Diagnosis syncope, leukocytosis, hyperkalemia, hypocalcemia, chest pain (1) ESRD (end stage renal disease) (2) Morbidly obese (3) DM (diabetes mellitus) (4) Hypertension (5) Leukocytosis (6) Chest pain (7) Generalized weakness Brief History Patient is a very pleasant 56 year old female admitted to hospital for syncopal event at dialysis center. She reports also that she has been having chest pain off and on for the past week. Chest pain lasted a couple of minutes and was relieved by rest. She has a past medical history of ESRD for 10 + years and has been followed by Dr. Villagran, diabetes, arthritis, anxiety, CHF, HLD, asthma, obesity, sleep apnea, COPD, GERD and hypothyroidism. On blood work she was found to be hypocalemic and 6.7, hyperkalemic at 5.9, and elevated WBC at 17.8. Nephrology and cardiology has been consulted. CBC/BMP: 04/08/17 0558 04/08/17 0558 Significant Findings Laboratory Tests Test 04/07/17 04/08/17 04/09/17 13:16 05:58 06:45 Mean Corpuscular Hemoglobin 30.6 % 31.5 % Concent (32.0-36.0) (32.0-36.0) Neutrophils (%) (Auto) 71.1 % 74.1 % (16.0-70.0) (16.0-70.0) Lymphocytes (%) (Auto) 7.7 % 8.2 % (9.0-44.0) (9.0-44.0) Monocytes (%) (Auto) 11.2 % 9.2 % (0.0-8.0) (0.0-8.0) Eosinophils (%) (Auto) 9.4 % (0.0-4.0) 8.1 % (0.0-4.0) Lymphocytes # (Auto) 0.5 TH/MM3 0.6 TH/MM3 (1.0-4.8) (1.0-4.8) Eosinophils # (Auto) 0.6 TH/MM3 0.6 TH/MM3 (0-0.4) (0-0.4) Blood Urea Nitrogen 60 MG/DL (7-18) 75 MG/DL (7-18) Creatinine 8.55 MG/DL 9.89 MG/DL (0.50-1.00) (0.50-1.00) Estimat Glomerular Filtration 6 ML/MIN (>89) 5 ML/MIN (>89) Rate Calcium Level 7.4 MG/DL 7.2 MG/DL 7.2 MG/DL (8.5-10.1) (8.5-10.1) (8.5-10.1) Total Protein 9.0 GM/DL (6.4-8.2) Red Blood Count 3.99 MIL/MM3 (4.00-5.30) Protein Corrected Calcium 6.9 MG/DL 6.9 MG/DL (8.5-10.1) (8.5-10.1) PE at Discharge GENERAL: alert and cooperative. Obese in no distress SKIN: Warm and dry. HEAD: Normocephalic. EYES: No scleral icterus. No injection or drainage. NECK: Supple, trachea midline. No JVD or lymphadenopathy. CARDIOVASCULAR: Regular rate and rhythm without murmurs, gallops, or rubs. RESPIRATORY: Breath sounds equal bilaterally. No accessory muscle use. GASTROINTESTINAL: Abdomen soft, non-tender, nondistended. MUSCULOSKELETAL: No cyanosis, or edema. BACK: Nontender without obvious deformity. No CVA tenderness. Hospital Course Patient is a very pleasant 56 year old female admitted to hospital for syncopal event at dialysis center. She reports also that she has been having chest pain off and on for the past week. Chest pain lasted a couple of minutes and was relieved by rest. She has a past medical history of ESRD for 10 + years and has been followed by Dr. Villagran, diabetes, arthritis, anxiety, CHF, HLD, asthma, obesity, sleep apnea, COPD, GERD and hypothyroidism. On blood work she was found to be hypocalemic and 6.7, hyperkalemic at 5.9, and elevated WBC at 17.8. Nephrology and cardiology has been consulted. Patient had cardiac workup nuclear medicine stress test that did not show any areas of ischemia. Patient has not had any chest discomfort for days. Patient has been receiving her regular dialysis without issues. WBC also returned to normal without antibiotics. Patient Calcium is low at times 6.9 today however per Nephrology Note Calcium stable she has s/p Parathyroidectomy. Can also be managed at dialysis. Patient is discharged home with home health care Pt Condition on Discharge: Good Discharge Disposition: Disch w/ Home Health Serv Discharge Instructions DIET: Follow Instructions for: Dialysis Diet Activities you can perform: Regular-No Restrictions Follow up Referrals: PCP Follow-up - 04/10/17 with Juli Jones Medications: Trazodone (Trazodone) 50 Mg Tab 150 MG PO HS Insomnia #30 TAB Continued Medications: Albuterol 8.5 GM Inh (Proair Hfa 8.5 GM Inh) 90 Mcg/Act Aer 2 PUFF INH Q6H 108 mcg/actuation PRN SHORTNESS OF BREATH #1 Ref [address] (Aspirin EC) 81 Mg Tabdr 81 MG PO DAILY Prevent Blood Clot #30 TAB Atorvastatin (Atorvastatin) 40 Mg Tab 40 MG PO HS Cholesterol Management #30 Ref 0 TAB Bupropion HCl (Bupropion HCl) 75 Mg Tab 75 MG PO DAILY Control Depression Ref 0 TAB Calcitriol (Rocaltrol) 0.25 Mcg Cap 0.5 MCG PO DAILY hypocalcemia #30 CAP Calcium Carbonate (Antacid) (Calcium Carbonate (Antacid)) 500 Mg Chew 1000 MG CHEW Q4HR Calcium Supplement #120 EA Cyclobenzaprine (Flexeril) 10 Mg Tab 10 MG PO BID PRN MUSCLE SPASM #14 Ref 0 TAB Gabapentin (Gabapentin) 100 Mg Cap 100 MG PO TID #90 Ref 0 CAP Levothyroxine (Levothyroxine) 50 Mcg Tab 50 MCG PO DAILY Thyroid #30 Ref 0 TAB Midodrine (Midodrine) 5 Mg Tab 10 MG PO TID@07,12,17 VS #30 TAB Pantoprazole (Pantoprazole) 40 Mg Tab 40 MG PO DAILY Reflux #30 Ref 0 TAB Sucralfate (Sucralfate) 1 Gm Tab 1 GM PO BIDAC on empty stomach Duodenal ulcer #120 Ref 0 TAB Discontinued Medications: Trazodone (Trazodone) 100 Mg Tablet 100 MG PO HS Control Depression #30 Ref 0 TAB Tami Owens Apr 09, 2017 11:00
[2017-04-09] MEDS ORDERED: CALCIUM GLUCONATE INJ 1 GM in SODIUM CHLORIDE 0.9% INJ 90 ML IV ONE (12:00)
--- NOTE | 2017-04-09 15:33 | HHI.NPPN ---
Subjective History of Present Illness 56 year old with ESRD, Asthma, CP Review of Systems General Constitutional: Fatigue Objective Data Data 04/08/17 04/09/17 19:00 07:00 Intake Total 1250 ml Balance 1250 ml Intake Oral 240 ml IV Total 1010 ml # Voids 0 # Bowel Movements 1 0 Vital Signs Date Time Temp Pulse Resp B/P Pulse Ox O2 Delivery O2 Flow Rate FiO2 04/09/17 12:30 96.4 89 20 112/58 95 04/09/17 08:45 97.1 92 18 96/54 92 04/09/17 08:26 97 Whisper-Flow 2.00 04/09/17 04:39 87 04/09/17 04:00 96.2 87 16 99/62 96 04/09/17 00:08 86 04/08/17 23:55 96.1 85 17 93/83 96 04/08/17 20:15 93 Nasal Cannula 2.00 04/08/17 20:10 89 04/08/17 20:00 96.8 91 18 124/98 95 04/08/17 19:58 88/62 04/08/17 16:00 96.5 102 18 110/71 92 -: 04/08/17 0558 04/08/17 0558 Physical Exam General Appearance: Well Developed Neck Neck Exam: Neck Supple Pulmonary Resp Exam: Clear Bilaterally, Breath Sounds Equal Cardiology CV Exam: Regular, Normal Sinus Rhythm, Good Perfusion Extremeties Extremities Exam: Trace Edema Assessment/Plan Problem List: (1) End stage renal disease Plan: HD MWF seen at Hemodialysis UF 3 L tolerated it well Calcium better she has s/p Parathyroidectomy continue supportive care (2) Morbid obesity Plan: weight loss recommended (3) Hyperkalemia Plan: hemodialysis low k diet (4) Generalized weakness Plan: await c/sFrank Cedeno MD Apr 09, 2017 15:33
--- NOTE | 2017-04-09 15:58 | PD.CARD.PN ---
Subjective Subjective Remarks No CP or SOB, in dialysis Objective Medications Current Medications Medications (Trade) Dose Ordered Sig/Mary Grace Route Start Time Stop Time Status Last Admin (NS Flush) 2 ml UNSCH PRN IVF 04/04/17 14:15 04/04/17 15:32 (NS Flush) 2 ml UNSCH PRN IV FLUSH 04/04/17 16:45 04/09/17 00:33 (NS Flush) 2 ml BID IV FLUSH 04/04/17 21:00 04/09/17 09:27 (Tylenol) 650 mg Q4H PRN PO 04/04/17 18:00 (Zofran Inj) 4 mg Q6H PRN IVP 04/04/17 18:00 (Narcan Inj) 0.4 mg UNSCH PRN IV 04/04/17 16:45 (Yelena-Colace) 1 tab BID PO 04/04/17 21:00 04/08/17 20:23 (Milk Of Magnesia Liq) 30 ml Q12HR PRN PO 04/04/17 21:00 (Senokot) 17.2 mg Q12HR PRN PO 04/04/17 21:00 (Dulcolax Supp) 10 mg DAILY PRN RECTAL 04/04/17 18:00 (Lactulose Liq) 30 ml DAILY PRN PO 04/04/17 18:00 Acetaminophen/ Codeine Phosphate 1 tab 1 tab Q4H PRN PO 04/05/17 02:30 04/07/17 21:14 (NS 1000 ml Inj) 1,000 ml @ 0 mls/hr Q0M PRN IV 04/05/17 08:30 Heparin Sodium (Porcine) 8000 units 8,000 units UNSCH PRN IVF 04/05/17 08:30 Sodium Chloride 1,000 ml @ 200 mls/hr Q5H PRN IV 04/05/17 08:30 (NS 1000 ml Inj) 1,000 ml @ 0 mls/hr Q0M PRN IV 04/05/17 08:30 (Mannitol Inj) 12.5 gm UNSCH PRN IV 04/05/17 08:30 (Albumin 25% Inj) 25 gm UNSCH PRN IV 04/05/17 08:30 (NS Flush) 5 ml UNSCH PRN IV FLUSH 04/05/17 08:30 (Heparin Inj) UNSCH PRN .XX 04/05/17 08:30 04/05/17 16:22 (Gentamicin (Dialysis) Inj) 20 mg UNSCH PRN IV 04/05/17 08:30 04/05/17 16:21 (Zofran Inj) 4 mg UNSCH PRN IV 04/05/17 08:30 (Tylenol) 650 mg UNSCH PRN PO 04/05/17 08:30 (Benadryl) 25 mg UNSCH PRN PO 04/05/17 08:30 (Nitrostat Sl) 0.4 mg UNSCH PRN SL 04/05/17 08:30 (Catapres) 0.1 mg UNSCH PRN PO 04/05/17 08:30 (Epogen Inj) 2,000 units UNSCH PRN IV 04/05/17 08:30 04/05/17 16:21 (Gelfoam 12 Mm/7 Mm Top) 1 foam UNSCH PRN TOP 04/05/17 08:30 (Proair Hfa Inh) 2 puff Q6H PRN INH 04/05/17 12:15 (Ecotrin Ec) 81 mg DAILY PO 04/06/17 09:00 04/08/17 08:25 (Lipitor) 40 mg HS PO 04/05/17 21:00 04/08/17 20:23 (Wellbutrin) 75 mg DAILY PO 04/06/17 09:00 04/08/17 08:25 (Rocaltrol) 0.5 mcg DAILY PO 04/06/17 09:00 04/08/17 08:25 (Tums Chew) 1,000 mg Q4HR CHEW 04/05/17 16:00 04/09/17 09:21 (Flexeril) 10 mg BID PRN PO 04/05/17 12:15 04/07/17 13:45 (Neurontin) 100 mg TID PO 04/05/17 13:00 04/09/17 09:22 (Synthroid) 50 mcg DAILY@06 PO 04/06/17 06:00 04/09/17 05:55 (Proamatine) 10 mg TID@07,12,17 PO 04/05/17 17:00 04/09/17 06:00 (Protonix) 40 mg DAILY PO 04/06/17 09:00 04/08/17 08:25 (Carafate) 1 gm BIDAC PO 04/05/17 16:00 04/09/17 06:59 (Desyrel) 150 mg HS PO 04/06/17 21:00 04/08/17 20:24 (Pill Splitter) 1 ea UNSCH PRN OTHER 04/06/17 11:00 Vital Signs / I&O Vital Signs Date Time Temp Pulse Resp B/P Pulse Ox O2 Delivery O2 Flow Rate FiO2 04/09/17 12:30 96.4 89 20 112/58 95 04/09/17 08:45 97.1 92 18 96/54 92 04/09/17 08:26 97 Whisper-Flow 2.00 04/09/17 04:39 87 04/09/17 04:00 96.2 87 16 99/62 96 04/09/17 00:08 86 04/08/17 23:55 96.1 85 17 93/83 96 04/08/17 20:15 93 Nasal Cannula 2.00 04/08/17 20:10 89 04/08/17 20:00 96.8 91 18 124/98 95 04/08/17 19:58 88/62 04/08/17 16:00 96.5 102 18 110/71 92 I/O 04/08/17 04/08/17 04/08/17 04/09/17 04/09/17 04/09/17 06:59 14:59 22:59 06:59 14:59 22:59 Intake Total 240 ml 1250 ml Balance 240 ml 1250 ml Intake Oral 240 ml 240 ml IV Total 1010 ml # Voids 0 0 # Bowel Movements 0 1 0 Physical Exam GENERAL: In NAD SKIN: Warm and dry. HEAD: Normocephalic. EYES: No scleral icterus. No injection or drainage. NECK: Supple, trachea midline. No JVD or lymphadenopathy. CARDIOVASCULAR: Regular rate and rhythm without murmurs, gallops, or rubs. RESPIRATORY: Breath sounds equal bilaterally. No accessory muscle use. GASTROINTESTINAL: Abdomen soft, non-tender, nondistended, obese MUSCULOSKELETAL: No cyanosis, trace edema. Laboratory Laboratory Tests Test 04/09/17 06:45 Calcium Level 7.2 MG/DL Protein Corrected Calcium 6.9 MG/DL Total Protein 7.9 GM/DL Imaging Last Impressions Myocardial Perfusion Scan Nuc Med 04/05/17 0000 Signed Impressions: Service Date/Time: March 09:43 - CONCLUSION: Normal examination. RISK CATEGORY: Low (<1%% Annual Mortality Rate) Damián Chung MD Chest X-Ray 04/04/17 1405 Signed Impressions: Service Date/Time: Tuesday, April 04, 2017 14:41 - CONCLUSION: No acute disease. Ronn Corona MD FACR Assessment and Plan Problem List: (1) Chest pain (2) ESRD on hemodialysis (3) COPD (chronic obstructive pulmonary disease) (4) DM (diabetes mellitus) (5) Hypertension (6) Morbidly obese Assessment and Plan No angina or CHF symptoms, tolerating dialysis well. Nuclear stress test with no evidence of ischemia. CP was likely of noncardiac origin. Continue current program. Increase activity. DC home as planned. Problem Qualifiers (1) Chest pain: Qualified Code: R07.9 - Chest pain, unspecified type Hi Macedo MD Apr 09, 2017 15:58
[2017-04-09] MEDS: buPROPion HCL 75 MG TAB PO SCH (16:36)
[2017-04-09] MEDS: ASPIRIN EC 81 MG TABEC PO SCH (16:37)
[2017-04-09] MEDS: CALCITRIOL 0.25 MCG CAP PO SCH (16:37)
[2017-04-09] MEDS: PANTOPRAZOLE SOD 40 MG DELAYED RELEASE TAB PO SCH (16:37)
== END 2017-04-09 19:54 | disposition home health service (06) | DRG 640 ==
LOC: NEPC 12:43 → NEDA 15:42 → OBSVTOIN 16:46 → HOCA 19:01 → HOCB 04-05 02:02 → HOCA 04-05 02:03
PROVIDERS: ADMIT Family Medicine; ATTEND Family Medicine
PROC: 5A1D60Z (ICD-10-PCS; principal; 2017-04-05)
DX: E83.51 Hypocalcemia (principal); N18.6 End stage renal disease; I13.2 Hypertensive heart and chronic kidney disease with heart failure and with stage 5 chronic kidney disease, or end stage renal disease; E11.22 Type 2 diabetes mellitus with diabetic chronic kidney disease; R07.9 Chest pain, unspecified; I50.9 Heart failure, unspecified; E87.5 Hyperkalemia; R55 Syncope and collapse; M19.90 Unspecified osteoarthritis, unspecified site; J44.9 Chronic obstructive pulmonary disease, unspecified; K21.9 Gastro-esophageal reflux disease without esophagitis; F41.9 Anxiety disorder, unspecified; E78.5 Hyperlipidemia, unspecified; J45.909 Unspecified asthma, uncomplicated; G47.00 Insomnia, unspecified; E66.01 Morbid (severe) obesity due to excess calories; G47.30 Sleep apnea, unspecified; E03.9 Hypothyroidism, unspecified; Z87.891 Personal history of nicotine dependence; Z99.2 Dependence on renal dialysis
CPT/HCPCS: 71010; 76937; 78452; 80048; 80053; 80061; 82550; 82552; 82948; 83605; 83735; 83880; 84100; 84132; 84155; 84439; 84443; 84481; 84484; 85025; 87040; 90935; 93005; 93017; 93306; 94620; 96374; 96375; A9502; J0610; J1580; J1644; J1815; J2785; J7030; Q4081

== ENCOUNTER 2017-06-13 11:46 | Inpatient (IN) | payer MEDICARE, OTHER ==
[~2017-06-13] VITALS: Ht 167.6 cm; Wt 147.6 kg
[~2017-06-13 11:46] MED LIST changes: +ALBUAER3 INH; -HYDR1LOT8 TOPICAL; -NYST10007 TOPICAL; -ROLLER WALKER1 MI1; -SENN1TAB PO; +TRAZ50TA12 PO
[2017-06-13 12:00] VITALS: BP 91/58; PULSE 98; RESP 22; TEMP 97.5; O2SAT 100
[2017-06-13] MEDS ORDERED: SODIUM CHLORIDE 0.9% FLUSH 10 ML FLUSH IVF PRN (12:15)
[2017-06-13] MEDS ORDERED: methylPREDNISolone SOD SUCC 125 MG/2 ML VIAL IV PUSH ONE (12:15)
--- NOTE | 2017-06-13 12:23 | PD ---
HPI Chief Complaint: Respiratory Symptoms Time Seen by Provider: 12:04 Travel History International Travel<30 days: No Contact w/Intl Traveler<30days: No Traveled to known affect area: No History of Present Illness HPI 56-year-old female presents to the emergency department for evaluation of increased shortness of breath, hypotension sent here from dialysis. Patient arrived via EMS. Patient states she's been having at least daily syncopal episodes. She states is from coughing so hard and then she will have a syncopal episode. She states she had one this morning. She states her shortness of breath started approximately an hour ago. According to EMS, she just started her dialysis treatment when it was stopped. The patient reports coughing for approximately a month. She states she is always chilled, but denies any fevers. She denies any chest pain at this time. No abdominal pain. No nausea, vomiting, diarrhea. Patient states she is "tired". Patient has history of diabetes, arthritis, anxiety, CHF, ESRD on hemodialysis Sunday by Dr. Villagran, asthma, obesity, sleep apnea, COPD, GERD, hypothyroidism. Patient has dialysis access catheter to right groin. PFSH Past Medical History Hx Anticoagulant Therapy: No Anemia: Yes Arthritis: Yes Asthma: Yes Autoimmune Disease: No Blood Disorders: No Anxiety: Yes Depression: Yes Heart Rhythm Problems: No Cancer: No Cardiovascular Problems: Yes (HIGH CHOLESTEROL ) High Cholesterol: Yes Chemotherapy: No Chest Pain: Yes Congestive Heart Failure: Yes COPD: Yes Cerebrovascular Accident: No Diabetes: Yes Patient Takes Glucophage: No Dialysis: Yes (M/W/F) Diminished Hearing: No Endocrine: Yes Gastrointestinal Disorders: Yes (ULCERS) GERD: Yes Glaucoma: No Genitourinary: Yes (ESRD, Dialysis) Headaches: Yes Hepatitis: No Hiatal Hernia: No Hypertension: Yes (hx of not now) Immune Disorder: No Implanted Vascular Access Dvce: Yes (PERMACATH R GROIN FOR DIALYSIS) Kidney Stones: No Musculoskeletal: Yes (Arthritis) Neurologic: No Psychiatric: Yes Reproductive: No Respiratory: Yes Immunizations Current: Yes Migraines: No Myocardial Infarction: No Pneumonia: Yes (HX) Radiation Therapy: Yes Renal Failure: Yes (CRF) Seizures: No Sickle Cell Disease: No Sleep Apnea: Yes Thyroid Disease: Yes Ulcer: Yes PNEUMOCCOCAL Vaccine (Year): 3 Menopausal: Yes : 3 Para: 3 Miscarriage: 0 : 0 Past Surgical History Abdominal Surgery: Yes AICD: No Appendectomy: Yes Arteriovenous Shunt: Yes (right femoral av fistula) Body Medical Devices: Old nonfunctioning NANCY fistula. Current- Permacath Right Groin Cardiac Surgery: No Cholecystectomy: Yes Ear Surgery: No Endocrine Surgery: Yes (THYROIDECTOMY) Eye Surgery: Yes (LASIK right cataract removed / left removed) Genitourinary Surgery: Yes (Peritoneal Abdominal Catheter removed april 2015) Gynecologic Surgery: Yes (Partial Hysterectomy and Appendectomy ) Hysterectomy: Yes (PARTIAL ) Insulin Pump: No Joint Replacement: No Neurologic Surgery: No Oral Surgery: Yes (ALL TEETH REMOVED) Pacemaker: No Thoracic Surgery: No Other Surgery: Yes (GREAT TOE AMPUTATION R/L FOOT) Social History Alcohol Use: Yes (RARE) Tobacco Use: Yes Substance Use: No Allergies-Medications (Allergen,Severity, Reaction): Coded Allergies: levofloxacin (Unverified Allergy, Severe, Anaphylaxis, 04/24/17) ANAPHYLAXIS *MDRO Multi-Drug Resistant Organism (Verified Adverse Reaction, Unknown, Cleared, 04/04/17) MRSA (wound) - 04/2011, (blood) - 10/2011 MRSA PCR Screens NEGATIVE - 02/17/15 & 02/19/15 CLEARED PER INFECTION CONTROL Reported Meds & Prescriptions Reported Meds & Active Scripts Active Trazodone (Trazodone HCl) 50 Mg Tab 150 Mg PO HS Rocaltrol (Calcitriol) 0.25 Mcg Cap 0.5 Mcg PO DAILY Flexeril (Cyclobenzaprine HCl) 10 Mg Tab 10 Mg PO BID PRN Calcium Carbonate (Antacid) 500 Mg Chew 1,000 Mg CHEW Q4HR Midodrine 5 Mg Tab 10 Mg PO TID@ Aspirin EC (Aspirin) 81 Mg Tabdr 81 Mg PO DAILY Reported Proair Hfa 8.5 GM Inh (Albuterol Sulfate) 90 Mcg/Act Aer 2 Puff INH Q6H PRN 108 mcg/actuation Gabapentin 100 Mg Cap 100 Mg PO TID Sucralfate 1 Gm Tab 1 Gm PO BIDAC on empty stomach Pantoprazole (Pantoprazole Sodium) 40 Mg Tab 40 Mg PO DAILY Levothyroxine (Levothyroxine Sodium) 50 Mcg Tab 50 Mcg PO DAILY Bupropion HCl 75 Mg Tab 75 Mg PO DAILY Atorvastatin (Atorvastatin Calcium) 40 Mg Tab 40 Mg PO HS Review of Systems Except as stated in HPI: all other systems reviewed are Neg Physical Exam Narrative GENERAL: Well-nourished, well-developed female patient, afebrile. SKIN: Focused skin assessment warm/dry. HEAD: Normocephalic. Atraumatic. EYES: No scleral icterus. No injection or drainage. NECK: Supple, trachea midline. No JVD or lymphadenopathy. CARDIOVASCULAR: Regular rate and rhythm without murmurs, gallops, or rubs. RESPIRATORY: Breath sounds equal bilaterally. No accessory muscle use. Lungs sounds with expiratory wheezes noted throughout. GASTROINTESTINAL: Abdomen soft, non-tender, nondistended. MUSCULOSKELETAL: No cyanosis, or edema. BACK: Nontender without obvious deformity. No CVA tenderness. Data Data Last Documented VS Vital Signs Date Time Temp Pulse Resp B/P (MAP) Pulse Ox O2 Delivery O2 Flow Rate FiO2 06/13/17 12:56 Nasal Cannula 06/13/17 12:56 100 2.00 06/13/17 12:00 97.5 98 22 91/58 (69) Orders Orders Complete Blood Count With Diff (06/13/17 12:07) Basic Metabolic Panel (Bmp) (06/13/17 12:07) B-Type Natriuretic Peptide (06/13/17 12:07) Act Partial Throm Time (Ptt) (06/13/17 12:07) Prothrombin Time / Inr (Pt) (06/13/17 12:07) Magnesium (Mg) (06/13/17 12:07) Ckmb (Isoenzyme) Profile (06/13/17 12:07) Troponin I (06/13/17 12:07) Iv Access Insert/Monitor (06/13/17 12:07) Electrocardiogram (06/13/17 12:07) Ecg Monitoring (06/13/17 12:07) Oximetry (06/13/17 12:07) Oxygen Administration (06/13/17 12:07) Chest, Single Ap (06/13/17 12:07) Sodium Chloride 0.9% Flush (Ns Flush) (06/13/17 12:15) Methylprednisolone So Succ Inj (Solumedr (06/13/17 12:15) Albuterol-Ipratropium Neb (Duoneb Neb) (06/13/17 12:15) Blood Culture (06/13/17 12:27) Lactic Acid Sepsis Protocol (06/13/17 12:27) Vascular Access Team Consult/P PRN (06/13/17 12:30) Vascular Poc Ultrasound (06/13/17 ) CKMB (06/13/17 12:35) CKMB% (06/13/17 12:35) Protein Corrected Calcium(Pcc) (06/13/17 12:35) Piperacil-Tazo 3.375 Gm Premix (Zosyn 3. (06/13/17 13:30) Sodium Chlor 0.9% 250 Ml Inj (Ns 250 Ml (06/13/17 13:45) Consult Nephrology (06/13/17 ) Admit Order (Ed Use Only) (06/13/17 13:43) Labs Laboratory Tests Test 06/13/17 12:35 White Blood Count 26.8 TH/MM3 Red Blood Count 4.50 MIL/MM3 Hemoglobin 13.5 GM/DL Hematocrit 42.5 % Mean Corpuscular Volume 94.5 FL Mean Corpuscular Hemoglobin 29.9 PG Mean Corpuscular Hemoglobin Concent 31.7 % Red Cell Distribution Width 15.3 % Platelet Count 343 TH/MM3 Mean Platelet Volume 7.8 FL Neutrophils (%) (Auto) 89.6 % Lymphocytes (%) (Auto) 3.5 % Monocytes (%) (Auto) 3.7 % Eosinophils (%) (Auto) 2.9 % Basophils (%) (Auto) 0.3 % Neutrophils # (Auto) 24.1 TH/MM3 Lymphocytes # (Auto) 0.9 TH/MM3 Monocytes # (Auto) 1.0 TH/MM3 Eosinophils # (Auto) 0.8 TH/MM3 Basophils # (Auto) 0.1 TH/MM3 CBC Comment DIFF FINAL Differential Comment Prothrombin Time 11.1 SEC Prothromb Time International Ratio 1.0 RATIO Activated Partial Thromboplast Time 37.2 SEC Blood Urea Nitrogen 50 MG/DL Creatinine 8.56 MG/DL Random Glucose 134 MG/DL Total Protein 9.2 GM/DL Calcium Level 5.9 MG/DL Magnesium Level 2.1 MG/DL Sodium Level 136 MEQ/L Potassium Level 4.5 MEQ/L Chloride Level 98 MEQ/L Carbon Dioxide Level 26.2 MEQ/L Anion Gap 12 MEQ/L Estimat Glomerular Filtration Rate 6 ML/MIN Lactic Acid Level 1.6 mmol/L Total Creatine Kinase 124 U/L Creatine Kinase MB 0.6 NG/ML Troponin I LESS THAN 0.02 NG/ML B-Type Natriuretic Peptide 10 PG/ML MDM Medical Decision Making Medical Screen Exam Complete: Yes Emergency Medical Condition: Yes Medical Record Reviewed: Yes Differential Diagnosis COPD exacerbation versus CHF exacerbation versus electrolyte abnormality versus dehydration versus ACS Narrative Course 56-year-old female presents to the emergency department from dialysis for evaluation of hypotension, shortness of breath. She just started her dialysis treatment when she was transferred here. Patient also reports daily syncopal episodes for the past month. She states she'll start coughing and then pass out. Patient slowly hypotensive, 91/58 on arrival. EKG, CBC, BMP, CK, troponin , magnesium, BNP, PTT, PTT/INR are ordered and pending. Blood cultures 2 and lactic acid are ordered and pending. Chest x-ray is ordered and pending. Patient is given DuoNeb 3 solumedrol 125 mg IV. EKG shows sinus tachycardia, heart rate 100, no acute ST changes. CBC shows leukocytosis 26.8. BMP shows BUN 50, creatinine 8.5, glucose 134. CK is 124. Troponin is less than 0.02. Magnesium is 2.1. BNP is 10. Lactic acid is 1.6. Coags show no acute abnormality. Chest x-ray shows no acute abnormality. Patient was started on vancomycin and Zosyn. I gave the patient Zosyn 3.375 g IV. I spoke to senior web services developer, Dr. Villagran, who states he will give the patient vancomycin during dialysis. He accepted consult. I talked to HALEY MOREAU for Dr. Bustos, who accepted admission. Diagnosis Primary Impression: Leukocytosis Qualified Codes: D72.829 - Elevated white blood cell count, unspecified Additional Impressions: COPD (chronic obstructive pulmonary disease) Qualified Codes: J44.9 - Chronic obstructive pulmonary disease, unspecified ESRD on hemodialysis Admitting Information Admitting Physician Requests: Admit Livia Mcginnis Jun 13, 2017 12:23
[2017-06-13 12:35] VITALS: O2SAT 99
[2017-06-13] MEDS: RESP: ALBUTEROL 2.5 MG/IPRATROPIUM 0.5 MG NEB (SCH) INH (12:35)
--- NOTE | 2017-06-13 12:51 | RADRPT ---
EXAM DATE/TIME: 06/13/2017 12:45 [facility] COMPARISON: CHEST SINGLE AP, April 04, 2017, 14:41. INDICATIONS : Shortness of breath today. MEDICAL HISTORY : Chronic obstructive pulmonary disease. Congestive heart failure SURGICAL HISTORY : None. ENCOUNTER: Initial ACUITY: 1 day PAIN SCORE: 0/10 LOCATION: Bilateral chest FINDINGS: A single view of the chest demonstrates the lungs to be symmetrically aerated without evidence of mas s, infiltrate or effusion. The cardiomediastinal contours are unremarkable. Vascular stents noted on the left, unchanged. Osseous structures are intact. CONCLUSION: No acute disease. Goyo Hahn MD on June 13, 2017 at 12:49 Board Certified Radiologist. This report was verified electronically.
[2017-06-13 13:03] LABS: AUTOMATED NEUTROPHIL # 24.1 TH/MM3 (1.8-7.7); BASOPHIL # 0.1 TH/MM3 (0-0.2); BASOPHIL % 0.3 % (0.0-2.0); EOSINOPHIL # 0.8 TH/MM3 (0-0.4); EOSINOPHIL % 2.9 % (0.0-4.0); HEMATOCRIT 42.5 % (35.0-46.0); HEMO FLAGS DIFF FINAL; LYMPH % 3.5 % (9.0-44.0); LYMPHOCYTE # 0.9 TH/MM3 (1.0-4.8); MEAN CELL VOLUME 94.5 FL (80.0-100.0); MEAN CORPUSCULAR HEMOGLOBIN 29.9 PG (27.0-34.0); MEAN CORPUSCULAR HGB CONC 31.7 % (32.0-36.0); MONO % 3.7 % (0.0-8.0); NEUT % 89.6 % (16.0-70.0); PLATELET COUNT 343 TH/MM3 (150-450); RED CELL DISTRIBUTION WIDTH 15.3 % (11.6-17.2); WHITE BLOOD COUNT 26.8 TH/MM3 (4.0-11.0)
[2017-06-13 13:13] LABS: APTT (PATIENT) 37.2 SEC (24.3-30.1); PROTHROMBIN TIME - PATIENT 11.1 SEC (9.8-11.6)
[2017-06-13 13:25] LABS: ANION GAP 12 MEQ/L (5-15); BICARBONATE 26.2 MEQ/L (21.0-32.0); BLOOD UREA NITROGEN 50 MG/DL (7-18); CHLORIDE 98 MEQ/L (98-107); CREATINE KINASE 124 U/L (26-192); GLOMERULAR FILTRATION RATE 6 ML/MIN (>89); MAGNESIUM 2.1 MG/DL (1.5-2.5); POTASSIUM 4.5 MEQ/L (3.5-5.1); SODIUM (NA) 136 MEQ/L (136-145)
[2017-06-13] MEDS ORDERED: PIPERACIL-TAZO 3.375 GM PREMIX 50 ML IV ONE (13:30)
[2017-06-13] MEDS ORDERED: SODIUM CHLOR 0.9% 250 ML INJ 250 ML IV ONE (13:45)
[2017-06-13 13:52] LABS: CKMB 0.6 NG/ML (0.5-3.6)
--- NOTE | 2017-06-13 13:54 | PD ---
Physical Exam Narrative GENERAL: Well-nourished, well-developed patient. Getting nebulizer treatment SKIN: Warm and dry. HEAD: Normocephalic and atraumatic. EYES: No injection or drainage. ENT: No nasal drainage noted. NECK: Supple, trachea midline. CARDIOVASCULAR: Regular rate and rhythm RESPIRATORY: mild increased effort. No accessory muscle use. NEUROLOGICAL: Awake and alert. Moves all extremities. Normal speech. Data Data Last Documented VS Vital Signs Date Time Temp Pulse Resp B/P (MAP) Pulse Ox O2 Delivery O2 Flow Rate FiO2 06/13/17 12:56 Nasal Cannula 06/13/17 12:56 100 2.00 06/13/17 12:00 97.5 98 22 91/58 (69) Orders Orders Complete Blood Count With Diff (06/13/17 12:07) Basic Metabolic Panel (Bmp) (06/13/17 12:07) B-Type Natriuretic Peptide (06/13/17 12:07) Act Partial Throm Time (Ptt) (06/13/17 12:07) Prothrombin Time / Inr (Pt) (06/13/17 12:07) Magnesium (Mg) (06/13/17 12:07) Ckmb (Isoenzyme) Profile (06/13/17 12:07) Troponin I (06/13/17 12:07) Iv Access Insert/Monitor (06/13/17 12:07) Electrocardiogram (06/13/17 12:07) Ecg Monitoring (06/13/17 12:07) Oximetry (06/13/17 12:07) Oxygen Administration (06/13/17 12:07) Chest, Single Ap (06/13/17 12:07) Sodium Chloride 0.9% Flush (Ns Flush) (06/13/17 12:15) Methylprednisolone So Succ Inj (Solumedr (06/13/17 12:15) Albuterol-Ipratropium Neb (Duoneb Neb) (06/13/17 12:15) Blood Culture (06/13/17 12:27) Lactic Acid Sepsis Protocol (06/13/17 12:27) Vascular Access Team Consult/P PRN (06/13/17 12:30) Vascular Poc Ultrasound (06/13/17 ) CKMB (06/13/17 12:35) CKMB% (06/13/17 12:35) Protein Corrected Calcium(Pcc) (06/13/17 12:35) Piperacil-Tazo 3.375 Gm Premix (Zosyn 3. (06/13/17 13:30) Sodium Chlor 0.9% 250 Ml Inj (Ns 250 Ml (06/13/17 13:45) Consult Nephrology (06/13/17 ) Admit Order (Ed Use Only) (06/13/17 13:43) Labs Laboratory Tests Test 06/13/17 12:35 White Blood Count 26.8 TH/MM3 Red Blood Count 4.50 MIL/MM3 Hemoglobin 13.5 GM/DL Hematocrit 42.5 % Mean Corpuscular Volume 94.5 FL Mean Corpuscular Hemoglobin 29.9 PG Mean Corpuscular Hemoglobin Concent 31.7 % Red Cell Distribution Width 15.3 % Platelet Count 343 TH/MM3 Mean Platelet Volume 7.8 FL Neutrophils (%) (Auto) 89.6 % Lymphocytes (%) (Auto) 3.5 % Monocytes (%) (Auto) 3.7 % Eosinophils (%) (Auto) 2.9 % Basophils (%) (Auto) 0.3 % Neutrophils # (Auto) 24.1 TH/MM3 Lymphocytes # (Auto) 0.9 TH/MM3 Monocytes # (Auto) 1.0 TH/MM3 Eosinophils # (Auto) 0.8 TH/MM3 Basophils # (Auto) 0.1 TH/MM3 CBC Comment DIFF FINAL Differential Comment Prothrombin Time 11.1 SEC Prothromb Time International Ratio 1.0 RATIO Activated Partial Thromboplast Time 37.2 SEC Blood Urea Nitrogen 50 MG/DL Creatinine 8.56 MG/DL Random Glucose 134 MG/DL Total Protein 9.2 GM/DL Calcium Level 5.9 MG/DL Magnesium Level 2.1 MG/DL Sodium Level 136 MEQ/L Potassium Level 4.5 MEQ/L Chloride Level 98 MEQ/L Carbon Dioxide Level 26.2 MEQ/L Anion Gap 12 MEQ/L Estimat Glomerular Filtration Rate 6 ML/MIN Lactic Acid Level 1.6 mmol/L Total Creatine Kinase 124 U/L Creatine Kinase MB 0.6 NG/ML Troponin I LESS THAN 0.02 NG/ML B-Type Natriuretic Peptide 10 PG/ML MDM Supervised Visit with PARVIZ: Yes Interpretation(s) CBC & BMP Diagram 06/13/17 12:35 Calcium Level 5.9 *L, Magnesium Level 2.1 Narrative Course I, Dr. rivers, have reviewed the advance practice practitioner's documentation and am in agreement, met with the patient face to face, made the diagnosis, and the medical decision making was done by me. *My assessment and Findings: 56 y/o female presents with decreased blood pressure and shortness of breath during dialysis. Workup shows significant leukocytosis. Broad-spectrum antibiotic coverage will be initiated with coordination with her skip tracer. She'll be admitted to the hospital for further care. Patient agreed to plan of care and is feeling better, given dialysis patient and patient will only be given small amount of IV fluid for hypotension and closely monitor Sepsis Criteria SIRS Criteria (2 or more): Heart rate over 90, RR > 20 or PaCO2 < 32, WBC > 81958, < 4000 or > 10% bands Sepsis Criteria (SIRS+source): Infect source susp/known Criteria Outcome: Meets sepsis criteria Diagnosis Primary Impression: Sepsis Qualified Codes: A41.9 - Sepsis, unspecified organism Additional Impressions: Hypocalcemia Leukocytosis Qualified Codes: D72.829 - Elevated white blood cell count, unspecified COPD (chronic obstructive pulmonary disease) Qualified Codes: J44.9 - Chronic obstructive pulmonary disease, unspecified ESRD on hemodialysis Yun Rivers MD Jun 13, 2017 13:54
[2017-06-13 13:55] VITALS: BP 88/47; PULSE 88; RESP 18; O2SAT 94
[2017-06-13] MEDS ORDERED: SODIUM CHLOR 0.9% 1000 ML INJ 1,000 ML IV PRN (13:58)
[2017-06-13] MEDS ORDERED: SODIUM CHLOR 0.9% 1000 ML INJ 1,000 ML OTHER PRN ×2 (13:58)
[2017-06-13] MEDS ORDERED: SODIUM CHLORIDE 0.9% FLUSH 10 ML FLUSH IV FLUSH PRN ×2 (14:00→14:45)
[2017-06-13] MEDS ORDERED: MANNITOL 12.5 GM/50 ML VIAL IV PRN (14:00)
[2017-06-13] MEDS ORDERED: diphenhydrAMINE HCL 25 MG CAP PO PRN (14:00)
[2017-06-13] MEDS ORDERED: GELATIN 12 MM/7 MM FOAM TOP PRN (14:00)
[2017-06-13] MEDS ORDERED: HEPARIN SODIUM - IV 10,000 UNITS/10 ML VIAL IV FLUSH PRN (14:00)
[2017-06-13] MEDS ORDERED: ALBUMIN HUMAN 25% 25 GM/100 ML BAGP IV PRN (14:00)
[2017-06-13] MEDS ORDERED: ACETAMINOPHEN 325 MG TAB PO PRN (14:00)
[2017-06-13] MEDS ORDERED: cloNIDine HCL 0.1 MG TAB PO PRN (14:00)
[2017-06-13] MEDS ORDERED: NITROGLYCERIN 0.4 MG SL 25 TABS/BTL SL PRN (14:00)
[2017-06-13] MEDS ORDERED: ONDANSETRON HCL 4 MG/2 ML VIAL IV PUSH PRN (14:00)
--- NOTE | 2017-06-13 14:08 | PD.CONS ---
HPI Service Nephrology Consult Requested By Emergency medicine Dr. Cavanaugh Reason for Consult Needs hemodialysis Primary Care Physician Unknown History of Present Illness Patient is a 56-year-old the obese female with history of end-stage renal disease, status post parathyroidectomy, recurrent hypocalcemia, she's was at dialysis center and seen by undersigned she started dialysis on however she became unstable and was transferred to [facility], she was found to have sepsis with a high white cell count, she did complain of her right foot injury and her toe has a wound, patient has hypocalcemia potassium is 5.9 as well she was transferred and found to have hypotension she was given normal saline. Review of Systems Constitutional: COMPLAINS OF: Fatigue Respiratory: COMPLAINS OF: Shortness of breath Musculoskeletal: COMPLAINS OF: Joint pain, Muscle aches, Joint Swelling, Back pain, Neck pain Integumentary: COMPLAINS OF: Rash Neurologic: COMPLAINS OF: Abnormal gait Past Family Social History Allergies: Coded Allergies: levofloxacin (Unverified Allergy, Severe, Anaphylaxis, 04/24/17) ANAPHYLAXIS *MDRO Multi-Drug Resistant Organism (Verified Adverse Reaction, Unknown, Cleared, 04/04/17) MRSA (wound) - 04/2011, (blood) - 10/2011 MRSA PCR Screens NEGATIVE - 02/17/15 & 02/19/15 CLEARED PER INFECTION CONTROL Past Medical History End-stage renal disease Obesity Hypotension History of diabetes Status post parathyroidectomy Hypocalcemia Asthma Past Surgical History AV fistula which all failed AV graft failure Permacath in the right groin AV graft and leg failed Tenckhoff catheter placement and removal Reported Medications Reported Meds & Active Scripts Active Trazodone (Trazodone HCl) 50 Mg Tab 150 Mg PO HS Rocaltrol (Calcitriol) 0.25 Mcg Cap 0.5 Mcg PO DAILY Flexeril (Cyclobenzaprine HCl) 10 Mg Tab 10 Mg PO BID PRN Calcium Carbonate (Antacid) 500 Mg Chew 1,000 Mg CHEW Q4HR Midodrine 5 Mg Tab 10 Mg PO TID@, Aspirin EC (Aspirin) 81 Mg Tabdr 81 Mg PO DAILY Reported Proair Hfa 8.5 GM Inh (Albuterol Sulfate) 90 Mcg/Act Aer 2 Puff INH Q6H PRN 108 mcg/actuation Gabapentin 100 Mg Cap 100 Mg PO TID Sucralfate 1 Gm Tab 1 Gm PO BIDAC on empty stomach Pantoprazole (Pantoprazole Sodium) 40 Mg Tab 40 Mg PO DAILY Levothyroxine (Levothyroxine Sodium) 50 Mcg Tab 50 Mcg PO DAILY Bupropion HCl 75 Mg Tab 75 Mg PO DAILY Atorvastatin (Atorvastatin Calcium) 40 Mg Tab 40 Mg PO HS Active Ordered Medications Current Medications Medications (Trade) Dose Ordered Sig/Mary Grace Route Start Time Stop Time Status Last Admin (NS Flush) 2 ml UNSCH PRN IVF 06/13/17 12:15 Sodium Chloride 250 ml @ 250 mls/hr BOLUS ONCE IV 06/13/17 13:45 06/13/17 14:44 06/13/17 13:55 Family History Noncontributory Social History Denies smoking or alcohol use Physical Exam Vital Signs Vital Signs Date Time Temp Pulse Resp B/P (MAP) Pulse Ox O2 Delivery O2 Flow Rate FiO2 06/13/17 13:55 88 18 88/47 (61) 94 Nasal Cannula 2.00 06/13/17 12:56 Nasal Cannula 06/13/17 12:56 100 Nasal Cannula 2.00 06/13/17 12:04 100 Nasal Cannula 06/13/17 12:00 97.5 98 22 91/58 (69) 100 Physical Exam GENERAL: Well-nourished, well-developed morbidly obese patient. SKIN: Warm and dry. HEAD: Normocephalic. EYES: No scleral icterus. No injection or drainage. NECK: Supple, trachea midline. No JVD or lymphadenopathy. CARDIOVASCULAR: Regular rate and rhythm without murmurs, gallops, or rubs. RESPIRATORY: Breath sounds diminished at bases GASTROINTESTINAL: Abdomen soft, non-tender, nondistended. EXTREMITIES: No cyanosis, or edema. Right fourth toe has a wound on top NEUROLOGICAL: Awake, alert, and oriented x 3. Non-focal. Laboratory Laboratory Tests Test 06/13/17 12:35 White Blood Count 26.8 Red Blood Count 4.50 Hemoglobin 13.5 Hematocrit 42.5 Mean Corpuscular Volume 94.5 Mean Corpuscular Hemoglobin 29.9 Mean Corpuscular Hemoglobin Concent 31.7 Red Cell Distribution Width 15.3 Platelet Count 343 Mean Platelet Volume 7.8 Neutrophils (%) (Auto) 89.6 Lymphocytes (%) (Auto) 3.5 Monocytes (%) (Auto) 3.7 Eosinophils (%) (Auto) 2.9 Basophils (%) (Auto) 0.3 Neutrophils # (Auto) 24.1 Lymphocytes # (Auto) 0.9 Monocytes # (Auto) 1.0 Eosinophils # (Auto) 0.8 Basophils # (Auto) 0.1 CBC Comment DIFF FINAL Differential Comment Prothrombin Time 11.1 Prothromb Time International Ratio 1.0 Activated Partial Thromboplast Time 37.2 Blood Urea Nitrogen 50 Creatinine 8.56 Random Glucose 134 Total Protein 9.2 Calcium Level 5.9 Magnesium Level 2.1 Sodium Level 136 Potassium Level 4.5 Chloride Level 98 Carbon Dioxide Level 26.2 Anion Gap 12 Estimat Glomerular Filtration Rate 6 Lactic Acid Level 1.6 Total Creatine Kinase 124 Creatine Kinase MB 0.6 Troponin I LESS THAN 0.02 B-Type Natriuretic Peptide 10 Date/Time Source Procedure Growth Status 06/13/17 12:40 Blood Peripheral Aerobic Blood Culture Pending Received 06/13/17 12:40 Blood Peripheral Anaerobic Blood Culture Pending Received Result Diagram: 06/13/17 1235 06/13/17 1235 Assessment and Plan Problem List: (1) End stage renal disease ICD Codes: N18.6 - End stage renal disease Status: Acute Plan: Hemodialysis to be arranged in the hospital we can give her vancomycin with dialysis She will need the calcium replacement Continue supportive care Broad-spectrum antibiotics Fluid bolus was given (2) Hypocalcemia ICD Codes: E83.51 - Hypocalcemia Status: Resolved Plan: Calcium gluconate 2 g (3) Sepsis ICD Codes: A41.9 - Sepsis, unspecified organism Status: Acute Plan: Broad-spectrum antibiotic (4) DM (diabetes mellitus) ICD Codes: E11.9 - DM (diabetes mellitus) Status: Chronic Plan: Follow blood glucose Problem Qualifiers (1) Sepsis: Qualified Codes: A41.9 - Sepsis, unspecified organism Frank Villagran MD Jun 13, 2017 14:07
[2017-06-13] MEDS ORDERED: ONDANSETRON HCL 4 MG/2 ML VIAL IVP PRN (14:45)
[2017-06-13] MEDS ORDERED: NALOXONE HCL 0.4 MG/ML AMP IV PUSH PRN (14:45)
[2017-06-13] MEDS ORDERED: BISACODYL 10 MG SUPP RECTAL PRN (14:45)
[2017-06-13] MEDS ORDERED: SENNOSIDES 8.6 MG TAB PO PRN (14:45)
[2017-06-13] MEDS ORDERED: LACTULOSE SYRUP 20 GM/30 ML CUP PO PRN (14:45)
[2017-06-13 15:00] VITALS: BP 127/64
[2017-06-13] MEDS ORDERED: ALBUTEROL SULFATE 90 MCG/ACT HFA 8 GM INHALER INH PRN (15:00)
[2017-06-13] MEDS ORDERED: VANCOMYCIN INJ 1,500 MG in SODIUM CHLORID 0.9% 500 ML INJ 500 ML IV ONE (15:00)
[2017-06-13] MEDS ORDERED: CALCIUM GLUCONATE INJ 2 GM in SODIUM CHLORIDE 0.9% INJ 100 ML IV ONE (15:00)
[2017-06-13] MEDS: GENTAMICIN SULFATE (DIALYSIS USE ONLY) 20 MG/2 ML VIAL OTHER PRN (16:53)
[2017-06-13] MEDS: HEPARIN SODIUM - IV 10,000 UNITS/10 ML VIAL PRN (16:55)
[2017-06-13 20:00] VITALS: BP 106/54; PULSE 100; RESP 17; TEMP 97.4; O2SAT 95
[2017-06-13] MEDS: CYCLOBENZAPRINE HCL 10 MG TAB PO PRN (20:35)
[2017-06-13] MEDS: CALCIUM CARBONATE 500 MG CHEWABLE TAB CHEW SCH ×3 (20:35→23:27)
[2017-06-13] MEDS: ATORVASTATIN 40 MG TAB PO SCH (20:35)
[2017-06-13] MEDS: traZODone HCL 50 MG TAB PO SCH (20:36)
[2017-06-13 20:44] VITALS: PULSE 106
[2017-06-13] MEDS: GABAPENTIN 100 MG CAP PO SCH (20:45)
[2017-06-13] MEDS: MIDODRINE 5 MG TAB PO SCH (20:45)
[2017-06-13] MEDS: DOCUSATE SODIUM 50 MG/SENNA 8.6 MG TAB PO SCH (20:52)
[2017-06-13] MEDS: ACETAMINOPHEN 1000 MG/100 ML 100 ML IV SCH (21:49)
[2017-06-13] MEDS: LORazepam 0.5 MG TAB PO PRN (23:27)
[2017-06-14] VITALS (10 sets, daily range): BP systolic 96–117; BP diastolic 50–58; PULSE 86–105; RESP 16–20; TEMP 97.4–98.3; O2SAT 92–95
[2017-06-14] MEDS: ACETAMINOPHEN 1000 MG/100 ML 100 ML IV SCH ×2 (05:52→12:20)
[2017-06-14] MEDS: SUCRALFATE 1 GM TAB PO SCH ×2 (05:54→16:00)
[2017-06-14] MEDS: CALCIUM CARBONATE 500 MG CHEWABLE TAB CHEW SCH ×6 (05:54→23:54)
[2017-06-14] MEDS: LEVOTHYROXINE SODIUM 50 MCG TAB PO SCH (05:54)
[2017-06-14] MEDS: MIDODRINE 5 MG TAB PO SCH ×3 (05:55→16:34)
[2017-06-14] MEDS: CALCITRIOL 0.25 MCG CAP PO SCH (08:16)
[2017-06-14] MEDS: GABAPENTIN 100 MG CAP PO SCH (08:16)
[2017-06-14] MEDS: buPROPion HCL 75 MG TAB PO SCH (08:16)
[2017-06-14] MEDS: ASPIRIN EC 81 MG TABEC PO SCH (08:16)
[2017-06-14] MEDS: PANTOPRAZOLE SOD 40 MG DELAYED RELEASE TAB PO SCH (08:16)
[2017-06-14 08:48] LABS: AUTOMATED NEUTROPHIL # 15.5 TH/MM3 (1.8-7.7); BASOPHIL % 0.1 % (0.0-2.0); HEMATOCRIT 42.6 % (35.0-46.0); HEMO FLAGS DIFF FINAL; LYMPH % 2.6 % (9.0-44.0); LYMPHOCYTE # 0.4 TH/MM3 (1.0-4.8); MEAN CELL VOLUME 94.6 FL (80.0-100.0); MEAN CORPUSCULAR HEMOGLOBIN 29.4 PG (27.0-34.0); MEAN CORPUSCULAR HGB CONC 31.1 % (32.0-36.0); MONO % 2.3 % (0.0-8.0); PLATELET COUNT 279 TH/MM3 (150-450); RED CELL DISTRIBUTION WIDTH 15.1 % (11.6-17.2); WHITE BLOOD COUNT 16.3 TH/MM3 (4.0-11.0)
[2017-06-14] MEDS: DOCUSATE SODIUM 50 MG/SENNA 8.6 MG TAB PO SCH ×2 (09:00→21:00)
[2017-06-14 09:12] LABS: BICARBONATE 26.2 MEQ/L (21.0-32.0); POTASSIUM 5.1 MEQ/L (3.5-5.1); TOTAL BILIRUBIN ADULT 0.2 MG/DL (0.2-1.0)
--- NOTE | 2017-06-14 09:24 | HHI.HP ---
History of Present Illness Service Dr. Bustos, [facility] Primary Care Physician Anna Bustos, DO Admission Diagnosis COPD exacerbation, leukocytosis, ESRD, hypotension Diagnoses: (1) Hypotension Diagnosis: Principal (2) ESRD (end stage renal disease) Diagnosis: Secondary (3) COPD (chronic obstructive pulmonary disease) Diagnosis: Secondary History of Present Illness Patient is a 56-year-old the female with end-stage renal disease, status post parathyroidectomy, recurrent hypocalcemia. She was at dialysis and became unstable and was transferred to [place] ER, she was found to have sepsis with a high white cell count and was started on IV antibiotics in the ED. She also complain of her right foot injury and her toe has a wound. She has hypocalcemia potassium is 5.9 and found to have hypotension she was given normal saline. Sepsis Criteria SIRS Criteria (2 or more): Heart rate over 90, WBC > 90929, < 4000 or > 10% bands Severe Sepsis (+one): Hypotension Review of Systems Constitutional: COMPLAINS OF: Fatigue Endocrine: DENIES: Heat/cold intolerance Respiratory: COMPLAINS OF: Shortness of breath Cardiovascular: COMPLAINS OF: Lower Extremity Edema Musculoskeletal: COMPLAINS OF: Joint pain Except as stated in HPI: all other systems reviewed are Neg Past Family Social History Allergies: Coded Allergies: levofloxacin (Unverified Allergy, Severe, Anaphylaxis, 04/24/17) ANAPHYLAXIS Past Medical History SHPT and ESRD. COPD Past Surgical History access placement and PTX Reported Medications Current Medications Medications (Trade) Dose Ordered Sig/Mary Grace Route Start Time Stop Time Status Last Admin Sodium Chloride 1,000 ml @ 0 mls/hr Q0M PRN OTHER 06/13/17 13:58 (Heparin Inj) 8,000 units UNSCH PRN IV FLUSH 06/13/17 14:00 Sodium Chloride 1,000 ml @ 200 mls/hr Q5H PRN IV 06/13/17 13:58 Sodium Chloride 1,000 ml @ 0 mls/hr Q0M PRN OTHER 06/13/17 13:58 (Mannitol Inj) 12.5 gm UNSCH PRN IV 06/13/17 14:00 (Albumin 25% Inj) 25 gm UNSCH PRN IV 06/13/17 14:00 (NS Flush) 5 ml UNSCH PRN IV FLUSH 06/13/17 14:00 (Heparin Inj) UNSCH PRN .XX 06/13/17 14:00 06/13/17 16:55 (Gentamicin (Dialysis) Inj) 20 mg UNSCH PRN OTHER 06/13/17 14:00 06/13/17 16:53 (Zofran Inj) 4 mg UNSCH PRN IV PUSH 06/13/17 14:00 (Tylenol) 650 mg UNSCH PRN PO 06/13/17 14:00 (Benadryl) 25 mg UNSCH PRN PO 06/13/17 14:00 (Nitrostat Sl) 0.4 mg UNSCH PRN SL 06/13/17 14:00 (Catapres) 0.1 mg UNSCH PRN PO 06/13/17 14:00 (Gelfoam 12 Mm/7 Mm Top) 1 foam UNSCH PRN TOP 06/13/17 14:00 (NS Flush) 2 ml UNSCH PRN IV FLUSH 06/13/17 14:45 06/13/17 20:31 (Zofran Inj) 4 mg Q6H PRN IVP 06/13/17 14:45 (Motrin) 400 mg Q6H PRN PO 06/13/17 14:45 Acetaminophen 100 ml @ 400 mls/hr Q6H IV 06/13/17 16:00 06/14/17 10:14 06/14/17 05:52 (Narcan Inj) 0.4 mg UNSCH PRN IV PUSH 06/13/17 14:45 (Yelena-Colace) 1 tab BID PO 06/13/17 21:00 (Senokot) 17.2 mg Q12H PRN PO 06/13/17 14:45 (Dulcolax Supp) 10 mg DAILY PRN RECTAL 06/13/17 14:45 (Lactulose Liq) 30 ml DAILY PRN PO 06/13/17 14:45 (Proair Hfa Inh) 2 puff Q6H PRN INH 06/13/17 15:00 (Ecotrin Ec) 81 mg DAILY PO 06/14/17 09:00 06/14/17 08:16 (Lipitor) 40 mg HS PO 06/13/17 21:00 06/13/17 20:35 (Wellbutrin) 75 mg DAILY PO 06/14/17 09:00 06/14/17 08:16 (Rocaltrol) 0.5 mcg DAILY PO 06/14/17 09:00 06/14/17 08:16 (Tums Chew) 1,000 mg Q4HR CHEW 06/13/17 16:00 06/14/17 08:16 (Flexeril) 10 mg BID PRN PO 06/13/17 15:00 06/13/17 20:35 (Neurontin) 100 mg DAILY PO 06/13/17 18:00 06/14/17 08:16 (Synthroid) 50 mcg DAILY@0600 PO 06/14/17 06:00 06/14/17 05:54 (Proamatine) 10 mg TID@,,17 PO 06/13/17 17:00 06/14/17 05:55 (Protonix) 40 mg DAILY PO 06/14/17 09:00 06/14/17 08:16 (Carafate) 1 gm BIDAC PO 06/13/17 16:00 06/14/17 05:54 (Desyrel) 150 mg HS PO 06/13/17 21:00 06/13/17 20:36 (Ativan) 0.5 mg TID PRN PO 06/13/17 23:00 06/13/17 23:27 Active Ordered Medications Current Medications Medications (Trade) Dose Ordered Sig/Mary Grace Route Start Time Stop Time Status Last Admin Sodium Chloride 1,000 ml @ 0 mls/hr Q0M PRN OTHER 06/13/17 13:58 (Heparin Inj) 8,000 units UNSCH PRN IV FLUSH 06/13/17 14:00 Sodium Chloride 1,000 ml @ 200 mls/hr Q5H PRN IV 06/13/17 13:58 Sodium Chloride 1,000 ml @ 0 mls/hr Q0M PRN OTHER 06/13/17 13:58 (Mannitol Inj) 12.5 gm UNSCH PRN IV 06/13/17 14:00 (Albumin 25% Inj) 25 gm UNSCH PRN IV 06/13/17 14:00 (NS Flush) 5 ml UNSCH PRN IV FLUSH 06/13/17 14:00 (Heparin Inj) UNSCH PRN .XX 06/13/17 14:00 06/13/17 16:55 (Gentamicin (Dialysis) Inj) 20 mg UNSCH PRN OTHER 06/13/17 14:00 06/13/17 16:53 (Zofran Inj) 4 mg UNSCH PRN IV PUSH 06/13/17 14:00 (Tylenol) 650 mg UNSCH PRN PO 06/13/17 14:00 (Benadryl) 25 mg UNSCH PRN PO 06/13/17 14:00 (Nitrostat Sl) 0.4 mg UNSCH PRN SL 06/13/17 14:00 (Catapres) 0.1 mg UNSCH PRN PO 06/13/17 14:00 (Gelfoam 12 Mm/7 Mm Top) 1 foam UNSCH PRN TOP 06/13/17 14:00 (NS Flush) 2 ml UNSCH PRN IV FLUSH 06/13/17 14:45 06/13/17 20:31 (Zofran Inj) 4 mg Q6H PRN IVP 06/13/17 14:45 (Motrin) 400 mg Q6H PRN PO 06/13/17 14:45 Acetaminophen 100 ml @ 400 mls/hr Q6H IV 06/13/17 16:00 06/14/17 10:14 06/14/17 05:52 (Narcan Inj) 0.4 mg UNSCH PRN IV PUSH 06/13/17 14:45 (Yelena-Colace) 1 tab BID PO 06/13/17 21:00 (Senokot) 17.2 mg Q12H PRN PO 06/13/17 14:45 (Dulcolax Supp) 10 mg DAILY PRN RECTAL 06/13/17 14:45 (Lactulose Liq) 30 ml DAILY PRN PO 06/13/17 14:45 (Proair Hfa Inh) 2 puff Q6H PRN INH 06/13/17 15:00 (Ecotrin Ec) 81 mg DAILY PO 06/14/17 09:00 06/14/17 08:16 (Lipitor) 40 mg HS PO 06/13/17 21:00 06/13/17 20:35 (Wellbutrin) 75 mg DAILY PO 06/14/17 09:00 06/14/17 08:16 (Rocaltrol) 0.5 mcg DAILY PO 06/14/17 09:00 06/14/17 08:16 (Tums Chew) 1,000 mg Q4HR CHEW 06/13/17 16:00 06/14/17 08:16 (Flexeril) 10 mg BID PRN PO 06/13/17 15:00 06/13/17 20:35 (Neurontin) 100 mg DAILY PO 06/13/17 18:00 06/14/17 08:16 (Synthroid) 50 mcg DAILY@0600 PO 06/14/17 06:00 06/14/17 05:54 (Proamatine) 10 mg TID@07,12,17 PO 06/13/17 17:00 06/14/17 05:55 (Protonix) 40 mg DAILY PO 06/14/17 09:00 06/14/17 08:16 (Carafate) 1 gm BIDAC PO 06/13/17 16:00 06/14/17 05:54 (Desyrel) 150 mg HS PO 06/13/17 21:00 06/13/17 20:36 (Ativan) 0.5 mg TID PRN PO 06/13/17 23:00 06/13/17 23:27 Family History Noncontributory to this event Social History Resides with family. Denies illicit drugs and ETOH Physical Exam Vital Signs Vital Signs Date Time Temp Pulse Resp B/P (MAP) Pulse Ox O2 Delivery O2 Flow Rate FiO2 06/14/17 08:00 98.3 94 18 106/56 (73) 93 06/14/17 05:59 Nasal Cannula 2.00 06/14/17 04:00 97.8 92 16 116/56 (76) 92 06/14/17 01:00 96/56 (69) 06/14/17 00:00 98.2 105 16 96/50 (65) 93 06/13/17 22:00 Nasal Cannula 2.00 06/13/17 20:44 106 06/13/17 20:00 97.4 100 17 106/54 (71) 95 06/13/17 15:00 127/64 (85) 06/13/17 13:55 88 18 88/47 (61) 94 Nasal Cannula 2.00 06/13/17 12:56 Nasal Cannula 06/13/17 12:56 100 Nasal Cannula 2.00 06/13/17 12:35 99 Nasal Cannula 2.00 06/13/17 12:04 100 Nasal Cannula 06/13/17 12:00 97.5 98 22 91/58 (69) 100 Physical Exam GENERAL: This is a obvese, well-developed patient, in no apparent distress. SKIN: Venous stasis discoloration BLE, no ecchymoses or lesions. Cool and dry. HEAD: Atraumatic. Normocephalic. EYES: Pupils equal round and reactive. Extraocular motions intact. No scleral icterus. No injection or drainage. ENT: Nose without bleeding, purulent drainage or septal hematoma. Throat without erythema, tonsillar hypertrophy or exudate. Uvula midline. Airway patent. NECK: Trachea midline. No JVD or lymphadenopathy. Supple, nontender, no meningeal signs. CARDIOVASCULAR: Regular rate and rhythm without murmurs, gallops, or rubs. RESPIRATORY: Clear to auscultation. Breath sounds equal bilaterally. No wheezes , rales, or rhonchi. GASTROINTESTINAL: Protuberant abdomen soft, non-tender, nondistended. No hepato- splenomegaly, or palpable masses. No guarding. MUSCULOSKELETAL: Extremities without clubbing, cyanosis, or edema. Bilat LE weakness NEUROLOGICAL: Awake and alert. Cranial nerves II through XII intact. Motor and sensory grossly within normal limits. Laboratory Laboratory Tests Test 06/13/17 12:35 06/14/17 06:34 White Blood Count 26.8 16.3 Red Blood Count 4.50 4.50 Hemoglobin 13.5 13.2 Hematocrit 42.5 42.6 Mean Corpuscular Volume 94.5 94.6 Mean Corpuscular Hemoglobin 29.9 29.4 Mean Corpuscular Hemoglobin Concent 31.7 31.1 Red Cell Distribution Width 15.3 15.1 Platelet Count 343 279 Mean Platelet Volume 7.8 8.3 Neutrophils (%) (Auto) 89.6 95.0 Lymphocytes (%) (Auto) 3.5 2.6 Monocytes (%) (Auto) 3.7 2.3 Eosinophils (%) (Auto) 2.9 0.0 Basophils (%) (Auto) 0.3 0.1 Neutrophils # (Auto) 24.1 15.5 Lymphocytes # (Auto) 0.9 0.4 Monocytes # (Auto) 1.0 0.4 Eosinophils # (Auto) 0.8 0.0 Basophils # (Auto) 0.1 0.0 CBC Comment DIFF FINAL DIFF FINAL Differential Comment Prothrombin Time 11.1 Prothromb Time International Ratio 1.0 Activated Partial Thromboplast Time 37.2 Blood Urea Nitrogen 50 Creatinine 8.56 Random Glucose 134 Total Protein 9.2 Calcium Level 5.9 Magnesium Level 2.1 Sodium Level 136 Potassium Level 4.5 Chloride Level 98 Carbon Dioxide Level 26.2 Anion Gap 12 Estimat Glomerular Filtration Rate 6 Lactic Acid Level 1.6 Protein Corrected Calcium Total Creatine Kinase 124 Creatine Kinase MB 0.6 Troponin I LESS THAN 0.02 B-Type Natriuretic Peptide 10 Date/Time Source Procedure Growth Status 06/13/17 12:40 Blood Peripheral Aerobic Blood Culture Pending Received 06/13/17 12:40 Blood Peripheral Anaerobic Blood Culture Pending Received Result Diagram: 06/14/17 0634 06/13/17 1235 Imaging Last 48 hours Impressions Chest X-Ray 06/13/17 1207 Signed Impressions: Service Date/Time: Tuesday, June 13, 2017 12:45 - CONCLUSION: No acute disease. Goyo Hahn MD Course Patient is no longer hypotensive and has no complaints this AM. Will cont meds per renal and F/U Calcium and cultures. Stable thus far. Caprini VTE Risk Assessment Caprini VTE Risk Assessment: Mod/High Risk (score >= 2) Caprini Risk Assessment Model Point Value = 1 Point Value = 2 Point Value = 3 Point Value = 5 Age 41-60 Minor surgery BMI > 25 kg/m2 Swollen legs Varicose veins or History of unexplained or recurrent spontaneous Oral contraceptives or hormone replacement Sepsis (< 1 month) Serious lung disease, including pneumonia (< 1 month) Abnormal pulmonary function Acute myocardial infarction Congestive heart failure (< 1 month) History of inflammatory bowel disease Medical patient at bed rest Age 61-74 Arthroscopic surgery Major open surgery (> 45 min) Laparoscopic surgery (> 45 min) Malignancy Confined to bed (> 72 hours) Immobilizing plaster cast Central venous access Age >= 75 History of VTE Family history of VTE Factor V Leiden Prothrombin [id number] Lupus anticoagulant Anticardiolipin antibodies Elevated serum homocysteine Heparin-induced thrombocytopenia Other congenital or acquired thrombophilia Stroke (< 1 month) Elective arthroplasty Hip, pelvis, or leg fracture Acute spinal cord injury (< 1 month) Prophylaxis Regimen Total Risk Factor Score Risk Level Prophylaxis Regimen 0-1 Low Early ambulation 2 Moderate Order ONE of the following: *Sequential Compression Device (SCD) *Heparin 5000 units SQ BID 3-4 Higher Order ONE of the following medications: *Heparin 5000 units SQ TID *Enoxaparin/Lovenox 40 mg SQ daily (WT < 150 kg, CrCl > 30 mL/min) *Enoxaparin/Lovenox 30 mg SQ daily (WT < 150 kg, CrCl > 10-29 mL/min) *Enoxaparin/Lovenox 30 mg SQ BID (WT < 150 kg, CrCl > 30 mL/min) AND/OR *Sequential Compression Device (SCD) 5 or more Highest Order ONE of the following medications: *Heparin 5000 units SQ TID (Preferred with Epidurals) *Enoxaparin/Lovenox 40 mg SQ daily (WT < 150 kg, CrCl > 30 mL/min) *Enoxaparin/Lovenox 30 mg SQ daily (WT < 150 kg, CrCl > 10-29 mL/min) *Enoxaparin/Lovenox 30 mg SQ BID (WT < 150 kg, CrCl > 30 mL/min) AND *Sequential Compression Device (SCD) Assessment and Plan Problem List: (1) History of hyperparathyroidism ICD Codes: Z86.39 - Personal history of other endocrine, nutritional and metabolic disease Status: Chronic (2) Generalized weakness ICD Codes: R53.1 - Weakness Status: Chronic (3) Morbidly obese ICD Codes: E66.01 - Morbidly obese Status: Chronic (4) Hypocalcemia ICD Codes: E83.51 - Hypocalcemia Status: Resolved (5) COPD (chronic obstructive pulmonary disease) ICD Codes: J44.9 - Chronic obstructive pulmonary disease Status: Chronic (6) Leukocytosis ICD Codes: D72.829 - Leukocytosis Status: Acute (7) ESRD on hemodialysis ICD Codes: N18.6 - End stage renal disease; Z99.2 - Dependence on renal dialysis Status: Chronic (8) Hypotension ICD Codes: I95.9 - Hypotension Status: Acute Assessment and Plan ESRD - Cont thrice weekly dialysis per renal SHPT - S/P PTX with chronic low calcium an not compliant with calcium supplements Hypotension - Likely chronic and due to dialysis Debility - Will monitor and consider PT after hypotension resolved Leukocytosis - Monitor and cont antibiotics per renal Discussed Condition With patient Discharge Planning Home when stable and cleared by renal Problem Qualifiers (1) Hypotension: Qualified Codes: I95.3 - Hypotension of hemodialysis (2) COPD (chronic obstructive pulmonary disease): Qualified Codes: J44.9 - Chronic obstructive pulmonary disease, unspecified (3) Leukocytosis: Qualified Codes: D72.829 - Elevated white blood cell count, unspecified Gabe Arora Jun 14, 2017 09:24
[2017-06-14] MEDS: CYCLOBENZAPRINE HCL 10 MG TAB PO PRN ×2 (09:30→21:34)
--- NOTE | 2017-06-14 13:59 | HHI.NPPN ---
Subjective History of Present Illness 56 year old female with ESRD, Hypocalcemia s/p Parathyroidectomy Additional Remarks Is better Objective Data Data Vital Signs Date Time Temp Pulse Resp B/P (MAP) Pulse Ox O2 Delivery O2 Flow Rate FiO2 06/14/17 12:24 97.7 89 18 106/58 (74) 94 06/14/17 08:00 96 Nasal Cannula 2.00 06/14/17 08:00 98.3 94 18 106/56 (73) 93 06/14/17 08:00 93 06/14/17 05:59 Nasal Cannula 2.00 06/14/17 04:00 97.8 92 16 116/56 (76) 92 06/14/17 01:00 96/56 (69) 06/14/17 00:00 98.2 105 16 96/50 (65) 93 06/13/17 22:00 Nasal Cannula 2.00 06/13/17 20:44 106 06/13/17 20:00 97.4 100 17 106/54 (71) 95 06/13/17 15:00 127/64 (85) -: 06/14/17 0634 06/14/17 0634 Physical Exam General Appearance: Well Developed, Obese Neck Neck Exam: Neck Supple Pulmonary Resp Exam: Clear Bilaterally, Breath Sounds Equal Cardiology CV Exam: Regular, Normal Sinus Rhythm Gastrointestinal/Abdomen GI Exam: Soft, Non-Tender, Bowel Sounds Present Extremeties Extremities Exam: Trace Edema Neurologic Neuro Exam: Alert Assessment/Plan Problem List: (1) End stage renal disease ICD Codes: N18.6 - End stage renal disease Status: Acute Plan: She is doing better hemodialysis will be scheduled for Sunday and Sunday Continue supportive care (2) Hypocalcemia ICD Codes: E83.51 - Hypocalcemia Status: Resolved Plan: Calcium 6.8 (3) Sepsis ICD Codes: A41.9 - Sepsis, unspecified organism Status: Acute Plan: Broad-spectrum antibiotic (4) DM (diabetes mellitus) ICD Codes: E11.9 - DM (diabetes mellitus) Status: Chronic Plan: Follow blood glucose Problem Qualifiers (1) Sepsis: Qualified Codes: A41.9 - Sepsis, unspecified organism Frank Villagran MD Jun 14, 2017 13:59
--- NOTE | 2017-06-14 14:04 | EKG ---
Date Performed: 06/13/2017 Time Performed: 13:25:08 PTAGE: 56 years EKG: SINUS TACHYCARDIA LOW QRS VOLTAGE IN PRECORDIAL LEADS MINIMAL ST DEPRESSION ABNORMAL QRS-T ANGLE ABNORMAL ECG PREVIOUS TRACING : 04/04/2017 14.29 Since prior tracing, sinus rate has increased slightly. DOCTOR: Gabino Kapoor Interpretating Date/Time 06/14/2017 14:03:28
[2017-06-14] MEDS: traZODone HCL 50 MG TAB PO SCH (21:34)
[2017-06-14] MEDS: ATORVASTATIN 40 MG TAB PO SCH (21:35)
[2017-06-15] VITALS (7 sets, daily range): BP systolic 99–117; BP diastolic 56–89; PULSE 82–96; RESP 16–20; TEMP 97.2–98.3; O2SAT 90–100
[2017-06-15] MEDS: LORazepam 0.5 MG TAB PO PRN (01:55)
[2017-06-15] MEDS: CALCIUM CARBONATE 500 MG CHEWABLE TAB CHEW SCH ×5 (03:59→20:11)
[2017-06-15] MEDS: SUCRALFATE 1 GM TAB PO SCH ×2 (05:48→15:16)
[2017-06-15] MEDS: MIDODRINE 5 MG TAB PO SCH ×3 (05:49→16:08)
[2017-06-15] MEDS: LEVOTHYROXINE SODIUM 50 MCG TAB PO SCH (05:49)
--- NOTE | 2017-06-15 08:48 | HHI.PR ---
Subjective Remarks Adm from dialysis with hypotension and sepsis with low calcium. Better overnight and on the way to dialysis this AM. Objective Vital Signs Date Time Temp Pulse Resp B/P (MAP) Pulse Ox O2 Delivery O2 Flow Rate FiO2 06/15/17 08:09 97.8 82 18 110/56 (74) 92 06/15/17 07:17 96 21 06/15/17 04:58 97.2 86 17 101/62 (75) 96 06/15/17 00:25 97.2 96 18 107/59 (75) 96 06/14/17 20:39 97.4 87 18 105/51 (69) 95 06/14/17 20:00 88 06/14/17 20:00 Nasal Cannula 2.00 06/14/17 17:38 94 Nasal Cannula 2.00 06/14/17 16:03 98.2 86 20 117/54 (75) 94 06/14/17 14:06 94 Nasal Cannula 2.00 06/14/17 12:24 97.7 89 18 106/58 (74) 94 I/O 06/14/17 06/14/17 06/14/17 06/15/17 06/15/17 06/15/17 07:00 15:00 23:00 07:00 15:00 23:00 Intake Total 100 ml 960 ml 240 ml Balance 100 ml 960 ml 240 ml Intake Oral 960 ml 240 ml IV Total 100 ml # Voids 1 Result Diagram: 06/14/17 0634 06/14/17 0634 Procedures Dioalysis this AM Other Results Current Medications Medications (Trade) Dose Ordered Sig/Mary Grace Route Start Time Stop Time Status Last Admin Sodium Chloride 1,000 ml @ 0 mls/hr Q0M PRN OTHER 06/13/17 13:58 (Heparin Inj) 8,000 units UNSCH PRN IV FLUSH 06/13/17 14:00 Sodium Chloride 1,000 ml @ 200 mls/hr Q5H PRN IV 06/13/17 13:58 Sodium Chloride 1,000 ml @ 0 mls/hr Q0M PRN OTHER 06/13/17 13:58 (Mannitol Inj) 12.5 gm UNSCH PRN IV 06/13/17 14:00 (Albumin 25% Inj) 25 gm UNSCH PRN IV 06/13/17 14:00 (NS Flush) 5 ml UNSCH PRN IV FLUSH 06/13/17 14:00 (Heparin Inj) UNSCH PRN .XX 06/13/17 14:00 06/13/17 16:55 (Gentamicin (Dialysis) Inj) 20 mg UNSCH PRN OTHER 06/13/17 14:00 06/13/17 16:53 (Zofran Inj) 4 mg UNSCH PRN IV PUSH 06/13/17 14:00 (Tylenol) 650 mg UNSCH PRN PO 06/13/17 14:00 (Benadryl) 25 mg UNSCH PRN PO 06/13/17 14:00 (Nitrostat Sl) 0.4 mg UNSCH PRN SL 06/13/17 14:00 (Catapres) 0.1 mg UNSCH PRN PO 06/13/17 14:00 (Gelfoam 12 Mm/7 Mm Top) 1 foam UNSCH PRN TOP 06/13/17 14:00 (NS Flush) 2 ml UNSCH PRN IV FLUSH 06/13/17 14:45 06/13/17 20:31 (Zofran Inj) 4 mg Q6H PRN IVP 06/13/17 14:45 (Motrin) 400 mg Q6H PRN PO 06/13/17 14:45 (Narcan Inj) 0.4 mg UNSCH PRN IV PUSH 06/13/17 14:45 (Yelena-Colace) 1 tab BID PO 06/13/17 21:00 (Senokot) 17.2 mg Q12H PRN PO 06/13/17 14:45 (Dulcolax Supp) 10 mg DAILY PRN RECTAL 06/13/17 14:45 (Lactulose Liq) 30 ml DAILY PRN PO 06/13/17 14:45 (Proair Hfa Inh) 2 puff Q6H PRN INH 06/13/17 15:00 (Ecotrin Ec) 81 mg DAILY PO 06/14/17 09:00 06/14/17 08:16 (Lipitor) 40 mg HS PO 06/13/17 21:00 06/14/17 21:35 (Wellbutrin) 75 mg DAILY PO 06/14/17 09:00 06/14/17 08:16 (Rocaltrol) 0.5 mcg DAILY PO 06/14/17 09:00 06/14/17 08:16 (Tums Chew) 1,000 mg Q4HR CHEW 06/13/17 16:00 06/15/17 03:59 (Flexeril) 10 mg BID PRN PO 06/13/17 15:00 06/14/17 21:34 (Neurontin) 100 mg DAILY PO 06/13/17 18:00 06/14/17 08:16 (Synthroid) 50 mcg DAILY@0600 PO 06/14/17 06:00 06/15/17 05:49 (Proamatine) 10 mg TID@,,17 PO 06/13/17 17:00 06/15/17 05:49 (Protonix) 40 mg DAILY PO 06/14/17 09:00 06/14/17 08:16 (Carafate) 1 gm BIDAC PO 06/13/17 16:00 06/15/17 05:48 (Desyrel) 150 mg HS PO 06/13/17 21:00 06/14/17 21:34 (Ativan) 0.5 mg TID PRN PO 06/13/17 23:00 06/15/17 01:55 Objective Remarks Gen - Obese awake and alert HEENT - AT Resp - CTA CV - RRR without M/R/G. Abd - Protuberant with active BS and nontender to palpation MS - Venous stasis BLE and no edema noted Medications and IVs Current Medications Medications (Trade) Dose Ordered Sig/Mary Grace Route Start Time Stop Time Status Last Admin Sodium Chloride 1,000 ml @ 0 mls/hr Q0M PRN OTHER 06/13/17 13:58 (Heparin Inj) 8,000 units UNSCH PRN IV FLUSH 06/13/17 14:00 Sodium Chloride 1,000 ml @ 200 mls/hr Q5H PRN IV 06/13/17 13:58 Sodium Chloride 1,000 ml @ 0 mls/hr Q0M PRN OTHER 06/13/17 13:58 (Mannitol Inj) 12.5 gm UNSCH PRN IV 06/13/17 14:00 (Albumin 25% Inj) 25 gm UNSCH PRN IV 06/13/17 14:00 (NS Flush) 5 ml UNSCH PRN IV FLUSH 06/13/17 14:00 (Heparin Inj) UNSCH PRN .XX 06/13/17 14:00 06/13/17 16:55 (Gentamicin (Dialysis) Inj) 20 mg UNSCH PRN OTHER 06/13/17 14:00 06/13/17 16:53 (Zofran Inj) 4 mg UNSCH PRN IV PUSH 06/13/17 14:00 (Tylenol) 650 mg UNSCH PRN PO 06/13/17 14:00 (Benadryl) 25 mg UNSCH PRN PO 06/13/17 14:00 (Nitrostat Sl) 0.4 mg UNSCH PRN SL 06/13/17 14:00 (Catapres) 0.1 mg UNSCH PRN PO 06/13/17 14:00 (Gelfoam 12 Mm/7 Mm Top) 1 foam UNSCH PRN TOP 06/13/17 14:00 (NS Flush) 2 ml UNSCH PRN IV FLUSH 06/13/17 14:45 06/13/17 20:31 (Zofran Inj) 4 mg Q6H PRN IVP 06/13/17 14:45 (Motrin) 400 mg Q6H PRN PO 06/13/17 14:45 (Narcan Inj) 0.4 mg UNSCH PRN IV PUSH 06/13/17 14:45 (Yelena-Colace) 1 tab BID PO 06/13/17 21:00 (Senokot) 17.2 mg Q12H PRN PO 06/13/17 14:45 (Dulcolax Supp) 10 mg DAILY PRN RECTAL 06/13/17 14:45 (Lactulose Liq) 30 ml DAILY PRN PO 06/13/17 14:45 (Proair Hfa Inh) 2 puff Q6H PRN INH 06/13/17 15:00 (Ecotrin Ec) 81 mg DAILY PO 06/14/17 09:00 06/14/17 08:16 (Lipitor) 40 mg HS PO 06/13/17 21:00 06/14/17 21:35 (Wellbutrin) 75 mg DAILY PO 06/14/17 09:00 06/14/17 08:16 (Rocaltrol) 0.5 mcg DAILY PO 06/14/17 09:00 06/14/17 08:16 (Tums Chew) 1,000 mg Q4HR CHEW 06/13/17 16:00 06/15/17 03:59 (Flexeril) 10 mg BID PRN PO 06/13/17 15:00 06/14/17 21:34 (Neurontin) 100 mg DAILY PO 06/13/17 18:00 06/14/17 08:16 (Synthroid) 50 mcg DAILY@0600 PO 06/14/17 06:00 06/15/17 05:49 (Proamatine) 10 mg TID@,,17 PO 06/13/17 17:00 06/15/17 05:49 (Protonix) 40 mg DAILY PO 06/14/17 09:00 06/14/17 08:16 (Carafate) 1 gm BIDAC PO 06/13/17 16:00 06/15/17 05:48 (Desyrel) 150 mg HS PO 06/13/17 21:00 06/14/17 21:34 (Ativan) 0.5 mg TID PRN PO 06/13/17 23:00 06/15/17 01:55 Assessment and Plan Problem List: (1) History of hyperparathyroidism ICD Codes: Z86.39 - Personal history of other endocrine, nutritional and metabolic disease Status: Chronic Plan: Cont meds per adm and monitor (2) Generalized weakness ICD Codes: R53.1 - Weakness Status: Chronic Plan: Cont three times per week dialysis and calcium supplementation (3) Morbidly obese ICD Codes: E66.01 - Morbidly obese Status: Chronic Plan: Cont weight loss diet (4) Hypocalcemia ICD Codes: E83.51 - Hypocalcemia Status: Resolved Plan: Active vitamin D and Calcium per renal (5) COPD (chronic obstructive pulmonary disease) ICD Codes: J44.9 - Chronic obstructive pulmonary disease Status: Chronic Plan: Cont home meds and monitor (6) Leukocytosis ICD Codes: D72.829 - Leukocytosis Status: Acute Plan: Monitor and cont antibiotics per renal on dialysis (7) ESRD on hemodialysis ICD Codes: N18.6 - End stage renal disease; Z99.2 - Dependence on renal dialysis Status: Chronic Plan: Cont thrice weekly dialysis per renal (8) Hypotension ICD Codes: I95.9 - Hypotension Status: Resolved Assessment and Plan ESRD - Cont thrice weekly dialysis per renal SHPT - S/P PTX with chronic low calcium an not compliant with calcium supplements Hypotension - Likely chronic and due to dialysis Debility - Will monitor and consider PT after hypotension resolved Leukocytosis - Monitor and cont antibiotics per renal Discussed Condition With patient Discharge Planning Home when cleared by renal Problem Qualifiers (1) COPD (chronic obstructive pulmonary disease): (2) Leukocytosis: Qualified Codes: D72.829 - Elevated white blood cell count, unspecified (3) Hypotension: Qualified Codes: I95.3 - Hypotension of hemodialysis Gabe Arora Jun 15, 2017 08:48
[2017-06-15] MEDS: GENTAMICIN SULFATE (DIALYSIS USE ONLY) 20 MG/2 ML VIAL OTHER PRN (11:47)
[2017-06-15] MEDS: HEPARIN SODIUM - IV 10,000 UNITS/10 ML VIAL PRN (11:47)
--- NOTE | 2017-06-15 12:04 | HHI.NPPN ---
Subjective History of Present Illness 56 year old female with ESRD, Hypocalcemia s/p Parathyroidectomy Additional Remarks Is better Objective Data Data 06/15/17 06/16/17 19:00 07:00 Output Total 3000 ml Balance -3000 ml Output Hemodialysis 3000 ml Vital Signs Date Time Temp Pulse Resp B/P (MAP) Pulse Ox O2 Delivery O2 Flow Rate FiO2 06/15/17 11:14 Nasal Cannula 21 06/15/17 08:09 97.8 82 18 110/56 (74) 92 06/15/17 07:17 96 21 06/15/17 04:58 97.2 86 17 101/62 (75) 96 06/15/17 00:25 97.2 96 18 107/59 (75) 96 06/14/17 20:39 97.4 87 18 105/51 (69) 95 06/14/17 20:00 88 06/14/17 20:00 Nasal Cannula 2.00 06/14/17 17:38 94 Nasal Cannula 2.00 06/14/17 16:03 98.2 86 20 117/54 (75) 94 06/14/17 14:06 94 Nasal Cannula 2.00 06/14/17 12:24 97.7 89 18 106/58 (74) 94 -: 06/14/17 0634 06/14/17 0634 Physical Exam General Appearance: Well Developed, Obese Neck Neck Exam: Neck Supple Pulmonary Resp Exam: Clear Bilaterally, Breath Sounds Equal Cardiology CV Exam: Regular, Normal Sinus Rhythm Gastrointestinal/Abdomen GI Exam: Soft, Non-Tender, Bowel Sounds Present Extremeties Extremities Exam: Trace Edema Neurologic Neuro Exam: Alert Assessment/Plan Problem List: (1) End stage renal disease ICD Codes: N18.6 - End stage renal disease Status: Acute Plan: She is doing better hemodialysis will be scheduled for Sunday and Sunday seen at HD 3 L removed OK to dc from Nephrology point of view (2) Hypocalcemia ICD Codes: E83.51 - Hypocalcemia Status: Resolved Plan: Calcium 6.8 (3) Sepsis ICD Codes: A41.9 - Sepsis, unspecified organism Status: Acute Plan: Broad-spectrum antibiotic (4) DM (diabetes mellitus) ICD Codes: E11.9 - DM (diabetes mellitus) Status: Chronic Plan: Follow blood glucose Problem Qualifiers (1) Sepsis: Qualified Codes: A41.9 - Sepsis, unspecified organism Frank Villagran MD Jun 15, 2017 12:04
[2017-06-15] MEDS: PANTOPRAZOLE SOD 40 MG DELAYED RELEASE TAB PO SCH (12:21)
[2017-06-15] MEDS: DOCUSATE SODIUM 50 MG/SENNA 8.6 MG TAB PO SCH ×2 (12:21→20:12)
[2017-06-15] MEDS: GABAPENTIN 100 MG CAP PO SCH (12:21)
[2017-06-15] MEDS: ASPIRIN EC 81 MG TABEC PO SCH (12:22)
[2017-06-15] MEDS: CALCITRIOL 0.25 MCG CAP PO SCH (12:22)
[2017-06-15] MEDS: buPROPion HCL 75 MG TAB PO SCH (12:22)
[2017-06-15] MEDS: CYCLOBENZAPRINE HCL 10 MG TAB PO PRN (12:36)
[2017-06-15] MEDS: traZODone HCL 50 MG TAB PO SCH (20:11)
[2017-06-15] MEDS: ATORVASTATIN 40 MG TAB PO SCH (20:12)
[2017-06-16] VITALS (8 sets, daily range): BP systolic 93–110; BP diastolic 53–69; PULSE 89–103; RESP 18–20; TEMP 97.5–98.1; O2SAT 91–96
[2017-06-16] MEDS: LORazepam 0.5 MG TAB PO PRN (00:16)
[2017-06-16] MEDS: CYCLOBENZAPRINE HCL 10 MG TAB PO PRN ×2 (00:16→13:07)
[2017-06-16] MEDS: CALCIUM CARBONATE 500 MG CHEWABLE TAB CHEW SCH ×6 (04:12→21:11)
[2017-06-16] MEDS: LEVOTHYROXINE SODIUM 50 MCG TAB PO SCH (05:59)
[2017-06-16] MEDS: SUCRALFATE 1 GM TAB PO SCH ×2 (06:00→16:48)
[2017-06-16] MEDS: MIDODRINE 5 MG TAB PO SCH ×3 (06:00→16:48)
[2017-06-16] MEDS: DOCUSATE SODIUM 50 MG/SENNA 8.6 MG TAB PO SCH ×2 (09:00→21:00)
[2017-06-16] MEDS: buPROPion HCL 75 MG TAB PO SCH (09:59)
[2017-06-16] MEDS: CALCITRIOL 0.25 MCG CAP PO SCH (09:59)
[2017-06-16] MEDS: PANTOPRAZOLE SOD 40 MG DELAYED RELEASE TAB PO SCH (09:59)
[2017-06-16] MEDS: ASPIRIN EC 81 MG TABEC PO SCH (10:00)
[2017-06-16] MEDS: GABAPENTIN 100 MG CAP PO SCH (10:00)
--- NOTE | 2017-06-16 13:16 | HHI.NPPN ---
Subjective History of Present Illness 56 year old female with ESRD, Hypocalcemia s/p Parathyroidectomy Additional Remarks Patient is alert, sitting on chair, no SOB, eating well. Objective Data Data Vital Signs Date Time Temp Pulse Resp B/P (MAP) Pulse Ox O2 Delivery O2 Flow Rate FiO2 06/16/17 12:00 97.7 96 20 109/69 (82) 92 06/16/17 08:15 101 06/16/17 08:00 97.9 103 20 93/54 (67) 91 06/16/17 07:18 Nasal Cannula 2.00 21 06/16/17 04:00 98.1 98 20 93/53 (66) 96 06/16/17 00:00 98.0 96 20 110/57 (74) 93 06/15/17 20:00 98.3 87 16 117/89 (98) 100 06/15/17 20:00 Nasal Cannula 2.00 06/15/17 20:00 95 06/15/17 16:03 97.8 95 20 99/63 (75) 90 -: 06/14/17 0634 06/14/17 0634 Physical Exam General Appearance: Well Developed, Obese Neck Neck Exam: Neck Supple Pulmonary Resp Exam: Clear Bilaterally, Breath Sounds Equal Cardiology CV Exam: Regular, Normal Sinus Rhythm Gastrointestinal/Abdomen GI Exam: Soft, Non-Tender, Bowel Sounds Present Extremeties Extremities Exam: Trace Edema Neurologic Neuro Exam: Alert Assessment/Plan Problem List: (1) End stage renal disease ICD Codes: N18.6 - End stage renal disease Status: Acute Plan: She is doing better hemodialysis will be scheduled for Sunday and Sunday Continue HD as per schedule. (2) Hypocalcemia ICD Codes: E83.51 - Hypocalcemia Status: Resolved Plan: Calcium 6.8 (3) Sepsis ICD Codes: A41.9 - Sepsis, unspecified organism Status: Acute Plan: Broad-spectrum antibiotic (4) DM (diabetes mellitus) ICD Codes: E11.9 - DM (diabetes mellitus) Status: Chronic Plan: Follow blood glucose Plan Patient can be discharged from Nephrology. Problem Qualifiers (1) Sepsis: Qualified Codes: A41.9 - Sepsis, unspecified organism Lucio Winston MD Jun 16, 2017 13:16
--- NOTE | 2017-06-16 14:38 | HHI.PR ---
Subjective Remarks feeling better has ambulated a bit Objective Vital Signs Date Time Temp Pulse Resp B/P (MAP) Pulse Ox O2 Delivery O2 Flow Rate FiO2 06/16/17 12:00 97.7 96 20 109/69 (82) 92 06/16/17 08:15 101 06/16/17 08:00 97.9 103 20 93/54 (67) 91 06/16/17 07:18 Nasal Cannula 2.00 21 06/16/17 04:00 98.1 98 20 93/53 (66) 96 06/16/17 00:00 98.0 96 20 110/57 (74) 93 06/15/17 20:00 98.3 87 16 117/89 (98) 100 06/15/17 20:00 Nasal Cannula 2.00 06/15/17 20:00 95 06/15/17 16:03 97.8 95 20 99/63 (75) 90 I/O 06/15/17 06/15/17 06/15/17 06/16/17 06/16/17 06/16/17 07:00 15:00 23:00 07:00 15:00 23:00 Intake Total 240 ml 360 ml 240 ml Output Total 3000 ml Balance 240 ml -3000 ml 360 ml 240 ml Intake Oral 240 ml 360 ml 240 ml Output Hemodialysis 3000 ml # Voids 0 2 # Bowel Movements 0 1 Result Diagram: 06/14/1734 06/14/1734 Procedures Dioalysis this AM Objective Remarks GENERAL: Well-nourished, well-developed patient. SKIN: Warm and dry. HEAD: Normocephalic. EYES: No scleral icterus. No injection or drainage. NECK: Supple, trachea midline. No JVD or lymphadenopathy. CARDIOVASCULAR: Regular rate and rhythm without murmurs, gallops, or rubs. RESPIRATORY: Breath sounds equal bilaterally. No accessory muscle use. GASTROINTESTINAL: Abdomen soft, non-tender, nondistended.morbidly obese EXTREMITIES: No cyanosis, or edema. NEUROLOGICAL: Awake, alert, and oriented x 3. Non-focal. Medications and IVs Inpatient Medications Acetaminophen 100 ml @ 400 mls/hr Q6H IV Last administered on 06/14/17t 12:20 ; Start 06/13/17 at 16:00; Stop 06/14/17 at 10:14; Status DC Acetaminophen (Tylenol) 650 mg UNSCH PRN PO for headach, pain, temp > 101F; Start 06/13/17 at 14:00 Albumin Human (Albumin 25% Inj) 25 gm UNSCH PRN IV WITH DIALYSIS; Start at 14:00 Albuterol Sulfate (Proair Hfa Inh) 2 puff Q6H PRN INH SHORTNESS OF BREATH; Start 06/13/17 at 15:00 Albuterol/ Ipratropium (Duoneb Neb) 1 ampule Q15M INH Last administered on 06/13 12:35; Start 06/13/17 at 12:15; Stop 06/13/17 at 12:46; Status DC Aspirin (Ecotrin Ec) 81 mg DAILY PO Last administered on 06/16/17 10:00; Start 06/14/17 at 09:00 Atorvastatin Calcium (Lipitor) 40 mg HS PO Last administered on 06/15/17 20:12 ; Start 06/13/17 at 21:00 Bisacodyl (Dulcolax Supp) 10 mg DAILY PRN RECTAL SEVERE CONSITIPATION; Start 06/13/17 at 14:45 Bupropion HCl (Wellbutrin) 75 mg DAILY PO Last administered on 06/16/17 09:59 ; Start 06/14/17 at 09:00 Calcitriol (Rocaltrol) 0.5 mcg DAILY PO Last administered on 06/16/17 09:59; Start 06/14/17 at 09:00 Calcium Carbonate (Tums Chew) 1,000 mg Q4HR CHEW Last administered on 13:07; Start 06/13/17 at 16:00 Calcium Gluconate 2 gm/Sodium Chloride 120 ml @ 120 mls/hr ONCE ONCE IV Last administered on 06/13/17 20:29; Start 06/13/17 at 15:00; Stop 06/13/17 at 15:59 ; Status DC Clonidine (Catapres) 0.1 mg UNSCH PRN PO for BP > 180/100 X 2 readings; Start 06/13/17 at 14:00 Cyclobenzaprine HCl (Flexeril) 10 mg BID PRN PO MUSCLE SPASM Last administered on 06/16/17 13:07; Start 06/13/17 at 15:00 Diphenhydramine HCl (Benadryl) 25 mg UNSCH PRN PO for hives/itching/anaphylaxis ; Start 06/13/17 at 14:00 Gabapentin (Neurontin) 100 mg DAILY PO Last administered on 06/16/17 10:00; Start 06/13/17 at 18:00 Gelatin (Gelfoam 12 Mm/7 Mm Top) 1 foam UNSCH PRN TOP SEE LABEL COMMENTS; Start 06/13/17 at 14:00 Gentamicin Sulfate (Gentamicin (Dialysis) Inj) 20 mg UNSCH PRN OTHER WITH DIALYSIS Last administered on 06/15/17 11:47; Start 06/13/17 at 14:00 Heparin Sodium (Porcine) (Heparin Inj) UNSCH PRN .XX WITH DIALYSIS Last administered on 06/15/17 11:47; Start 06/13/17 at 14:00 Ibuprofen (Motrin) 400 mg Q6H PRN PO PAIN SCALE 1 TO 2; Start 06/13/17 at 14:45 Lactulose (Lactulose Liq) 30 ml DAILY PRN PO SEVERE CONSITIPATION; Start at 14:45 Levothyroxine Sodium (Synthroid) 50 mcg DAILY@0600 PO Last administered on 06/16 05:59; Start 06/14/17 at 06:00 Lorazepam (Ativan) 0.5 mg TID PRN PO ANXIETY Last administered on 06/16/17 00: 16; Start 06/13/17 at 23:00 Mannitol (Mannitol Inj) 12.5 gm UNSCH PRN IV WITH DIALYSIS; Start 06/13/17 at 14:00 Methylprednisolone Sodium Succinate (SoluMEDROL INJ) 125 mg ONCE ONCE IV PUSH Last administered on 06/13/17 13:00; Start 06/13/17 at 12:15; Stop 06/13/17 at 12:16; Status DC Midodrine (Proamatine) 10 mg TID@07,12,17 PO Last administered on 06/16/17 13: 07; Start 06/13/17 at 17:00 Naloxone HCl (Narcan Inj) 0.4 mg UNSCH PRN IV PUSH SEE LABEL COMMENTS; Start 06/13/17 at 14:45 Nitroglycerin (Nitrostat Sl) 0.4 mg UNSCH PRN SL CHEST PAIN; Start 06/13/17 at 14:00 Ondansetron HCl (Zofran Inj) 4 mg Q6H PRN IVP NAUSEA OR VOMITING; Start at 14:45 Pantoprazole Sodium (Protonix) 40 mg DAILY PO Last administered on 06/16/17 09 :59; Start 06/14/17 at 09:00 Piperacillin Sod/ Tazobactam Sod 50 ml @ 100 mls/hr ONCE ONCE IV Last administered on 06/13/17 13:54; Start 06/13/17 at 13:30; Stop 06/13/17 at 13:59 ; Status DC Senna/Docusate Sodium (Yelena-Colace) 1 tab BID PO Last administered on 12:21; Start 06/13/17 at 21:00 Sennosides (Senokot) 17.2 mg Q12H PRN PO MODERATE - SEVERE CONSTIPATION; Start 06/13/17 at 14:45 Sodium Chloride (NS Flush) 2 ml UNSCH PRN IV FLUSH FLUSH AFTER USING IV ACCESS Last administered on 06/13/17 20:31; Start 06/13/17 at 14:45 Sucralfate (Carafate) 1 gm BIDAC PO Last administered on 06/16/17 06:00; Start 06/13/17 at 16:00 Trazodone HCl (Desyrel) 150 mg HS PO Last administered on 06/15/17 20:11; Start 06/13/17 at 21:00 Vancomycin HCl 1500 mg/Sodium Chloride 515 ml @ 257.5 mls/ hr WITH DIALYSIS ONCE IV Last administered on 06/13/17 16:54; Start 06/13/17 at 15:00; Stop at 16:59; Status DC Assessment and Plan Problem List: (1) ESRD (end stage renal disease) ICD Codes: N18.6 - End stage renal disease Status: Chronic Plan: dialysis Assessment and Plan ESRD sepsis ck lab in am have pt katina and rx Bryan Bustos DO Jun 16, 2017 14:38
[2017-06-16] MEDS: ATORVASTATIN 40 MG TAB PO SCH (21:11)
[2017-06-16] MEDS: traZODone HCL 50 MG TAB PO SCH (21:11)
[2017-06-16] MEDS: IBUPROFEN 400 MG TAB PO PRN (21:12)
[2017-06-17] VITALS: BP 109/57; PULSE 92; RESP 20; TEMP 97.3; O2SAT 94
[2017-06-17] MEDS: CYCLOBENZAPRINE HCL 10 MG TAB PO PRN ×2 (00:08→23:26)
[2017-06-17] MEDS: CALCIUM CARBONATE 500 MG CHEWABLE TAB CHEW SCH ×7 (00:08→23:26)
[2017-06-17] MEDS: LORazepam 0.5 MG TAB PO PRN ×2 (00:08→23:26)
[2017-06-17 04:00] VITALS: BP 97/56; PULSE 93; RESP 16; TEMP 97.6; O2SAT 94
[2017-06-17] MEDS: SUCRALFATE 1 GM TAB PO SCH ×2 (06:53→16:45)
[2017-06-17] MEDS: LEVOTHYROXINE SODIUM 50 MCG TAB PO SCH (06:53)
[2017-06-17] MEDS: MIDODRINE 5 MG TAB PO SCH ×3 (06:54→16:46)
[2017-06-17 08:00] VITALS: BP 114/64; PULSE 90; RESP 16; TEMP 97.3; O2SAT 95
[2017-06-17 08:12] LABS: AUTOMATED NEUTROPHIL # 8.3 TH/MM3 (1.8-7.7); BASOPHIL % 0.4 % (0.0-2.0); EOSINOPHIL # 0.7 TH/MM3 (0-0.4); EOSINOPHIL % 6.4 % (0.0-4.0); HEMATOCRIT 41.2 % (35.0-46.0); HEMO FLAGS DIFF FINAL; LYMPH % 8.3 % (9.0-44.0); LYMPHOCYTE # 0.9 TH/MM3 (1.0-4.8); MEAN CELL VOLUME 93.5 FL (80.0-100.0); MEAN CORPUSCULAR HEMOGLOBIN 29.7 PG (27.0-34.0); MEAN CORPUSCULAR HGB CONC 31.8 % (32.0-36.0); MONO % 7.8 % (0.0-8.0); NEUT % 77.1 % (16.0-70.0); PLATELET COUNT 289 TH/MM3 (150-450); WHITE BLOOD COUNT 10.7 TH/MM3 (4.0-11.0)
[2017-06-17] MEDS: DOCUSATE SODIUM 50 MG/SENNA 8.6 MG TAB PO SCH ×2 (09:00→21:43)
[2017-06-17 09:08] LABS: BICARBONATE 24.5 MEQ/L (21.0-32.0)
[2017-06-17 09:24] LABS: CALCIUM-PROTEIN CORRECTED 6.8 MG/DL (8.5-10.1)
[2017-06-17] MEDS: IBUPROFEN 400 MG TAB PO PRN ×3 (09:48→23:26)
[2017-06-17] MEDS: CALCITRIOL 0.25 MCG CAP PO SCH (09:49)
[2017-06-17] MEDS: PANTOPRAZOLE SOD 40 MG DELAYED RELEASE TAB PO SCH (09:49)
[2017-06-17] MEDS: ASPIRIN EC 81 MG TABEC PO SCH (09:49)
[2017-06-17] MEDS: buPROPion HCL 75 MG TAB PO SCH (09:49)
[2017-06-17] MEDS: GABAPENTIN 100 MG CAP PO SCH (09:49)
--- NOTE | 2017-06-17 11:17 | HHI.NPPN ---
Subjective History of Present Illness 56 year old female with ESRD, Hypocalcemia s/p Parathyroidectomy Additional Remarks Patient is alert, sitting on chair, no SOB, clinically same. Objective Data Data Vital Signs Date Time Temp Pulse Resp B/P (MAP) Pulse Ox O2 Delivery O2 Flow Rate FiO2 06/17/17 08:00 90 06/17/17 08:00 97.3 90 16 114/64 (81) 95 06/17/17 07:15 Nasal Cannula 2.00 06/17/17 04:00 97.6 93 16 97/56 (70) 94 06/17/17 04:00 Room Air 06/17/17 00:00 97.3 92 20 109/57 (74) 94 06/17/17 00:00 Room Air 06/16/17 20:03 92 06/16/17 20:00 Room Air 06/16/17 20:00 97.5 89 18 103/65 (78) 93 06/16/17 16:00 97.6 95 18 96/54 (68) 93 06/16/17 12:00 97.7 96 20 109/69 (82) 92 -: 06/17/17 0632 06/17/17 0632 Physical Exam General Appearance: Well Developed, Obese Neck Neck Exam: Neck Supple Pulmonary Resp Exam: Clear Bilaterally, Breath Sounds Equal Cardiology CV Exam: Regular, Normal Sinus Rhythm Gastrointestinal/Abdomen GI Exam: Soft, Non-Tender, Bowel Sounds Present Extremeties Extremities Exam: Trace Edema Neurologic Neuro Exam: Alert Assessment/Plan Problem List: (1) End stage renal disease ICD Codes: N18.6 - End stage renal disease Status: Acute Plan: She is doing better hemodialysis will be scheduled for Sunday and Sunday Continue HD as per schedule. Calcium is low, on Calcium supplement and Calcitriol, increase Calcitriol to 1.0 ug. (2) Hypocalcemia ICD Codes: E83.51 - Hypocalcemia Status: Resolved Plan: Calcium 6.8 (3) Sepsis ICD Codes: A41.9 - Sepsis, unspecified organism Status: Acute Plan: Broad-spectrum antibiotic (4) DM (diabetes mellitus) ICD Codes: E11.9 - DM (diabetes mellitus) Status: Chronic Plan: Follow blood glucose Plan Patient can be discharged from Nephrology. Problem Qualifiers (1) Sepsis: Qualified Codes: A41.9 - Sepsis, unspecified organism Lucio Winston MD Jun 17, 2017 11:17
[2017-06-17 12:00] VITALS: BP 108/70; PULSE 94; RESP 18; TEMP 97.4; O2SAT 91
--- NOTE | 2017-06-17 12:16 | HHI.PR ---
Subjective Remarks feeling better has ambulated a bit calcium low will supplement Objective Vital Signs Date Time Temp Pulse Resp B/P (MAP) Pulse Ox O2 Delivery O2 Flow Rate FiO2 06/17/17 08:00 90 06/17/17 08:00 97.3 90 16 114/64 (81) 95 06/17/17 07:15 Nasal Cannula 2.00 06/17/17 04:00 97.6 93 16 97/56 (70) 94 06/17/17 04:00 Room Air 06/17/17 00:00 97.3 92 20 109/57 (74) 94 06/17/17 00:00 Room Air 06/16/17 20:03 92 06/16/17 20:00 Room Air 06/16/17 20:00 97.5 89 18 103/65 (78) 93 06/16/17 16:00 97.6 95 18 96/54 (68) 93 I/O 06/16/17 06/16/17 06/16/17 06/17/17 06/17/17 06/17/17 07:00 15:00 23:00 07:00 15:00 23:00 Intake Total 240 ml 675 ml Output Total 0 ml Balance 240 ml 675 ml Intake Oral 240 ml 675 ml Output Urine Total 0 ml # Voids 2 0 # Bowel Movements 1 0 0 Result Diagram: 06/17/1763106/17/17631 Procedures Dioalysis this AM Other Results protein corrected calcium low 6.7 Objective Remarks GENERAL: Well-nourished, well-developed patient. SKIN: Warm and dry. HEAD: Normocephalic. EYES: No scleral icterus. No injection or drainage. NECK: Supple, trachea midline. No JVD or lymphadenopathy. CARDIOVASCULAR: Regular rate and rhythm without murmurs, gallops, or rubs. RESPIRATORY: Breath sounds equal bilaterally. No accessory muscle use. GASTROINTESTINAL: Abdomen soft, non-tender, nondistended.morbidly obese EXTREMITIES: No cyanosis, or edema. NEUROLOGICAL: Awake, alert, and oriented x 3. Non-focal. Medications and IVs Inpatient Medications Acetaminophen 100 ml @ 400 mls/hr Q6H IV Last administered on 06/14/17t 12:20 ; Start 06/13/17 at 16:00; Stop 06/14/17 at 10:14; Status DC Acetaminophen (Tylenol) 650 mg UNSCH PRN PO for headach, pain, temp > 101F; Start 06/13/17 at 14:00 Albumin Human (Albumin 25% Inj) 25 gm UNSCH PRN IV WITH DIALYSIS; Start at 14:00 Albuterol Sulfate (Proair Hfa Inh) 2 puff Q6H PRN INH SHORTNESS OF BREATH; Start 06/13/17 at 15:00 Albuterol/ Ipratropium (Duoneb Neb) 1 ampule Q15M INH Last administered on 06/13 12:35; Start 06/13/17 at 12:15; Stop 06/13/17 at 12:46; Status DC Aspirin (Ecotrin Ec) 81 mg DAILY PO Last administered on 06/17/17 09:49; Start 06/14/17 at 09:00 Atorvastatin Calcium (Lipitor) 40 mg HS PO Last administered on 06/16/17 21:11 ; Start 06/13/17 at 21:00 Bisacodyl (Dulcolax Supp) 10 mg DAILY PRN RECTAL SEVERE CONSITIPATION; Start 06/13/17 at 14:45 Bupropion HCl (Wellbutrin) 75 mg DAILY PO Last administered on 06/17/17 09:49 ; Start 06/14/17 at 09:00 Calcitriol (Rocaltrol) 1 mcg DAILY PO ; Start 06/18/17 at 09:00 Calcium Carbonate (Tums Chew) 1,000 mg Q4HR CHEW Last administered on 09:48; Start 06/13/17 at 16:00 Calcium Gluconate 2 gm/Sodium Chloride 120 ml @ 120 mls/hr ONCE ONCE IV Last administered on 06/13/17 20:29; Start 06/13/17 at 15:00; Stop 06/13/17 at 15:59 ; Status DC Calcium/Vitamin D (Oscal-D 250-125) 500 mg TID PO ; Start 06/17/17 at 13:00 Clonidine (Catapres) 0.1 mg UNSCH PRN PO for BP > 180/100 X 2 readings; Start 06/13/17 at 14:00 Cyclobenzaprine HCl (Flexeril) 10 mg BID PRN PO MUSCLE SPASM Last administered on 10/8/17at 00:08; Start 06/13/17 at 15:00 Diphenhydramine HCl (Benadryl) 25 mg UNSCH PRN PO for hives/itching/anaphylaxis ; Start 06/13/17 at 14:00 Gabapentin (Neurontin) 100 mg DAILY PO Last administered on 06/17/17 09:49; Start 06/13/17 at 18:00 Gelatin (Gelfoam 12 Mm/7 Mm Top) 1 foam UNSCH PRN TOP SEE LABEL COMMENTS; Start 06/13/17 at 14:00 Gentamicin Sulfate (Gentamicin (Dialysis) Inj) 20 mg UNSCH PRN OTHER WITH DIALYSIS Last administered on 06/15/17 11:47; Start 06/13/17 at 14:00 Heparin Sodium (Porcine) (Heparin Inj) UNSCH PRN .XX WITH DIALYSIS Last administered on 06/15/17 11:47; Start 06/13/17 at 14:00 Ibuprofen (Motrin) 400 mg Q6H PRN PO PAIN SCALE 1 TO 2 Last administered on 09:48; Start 06/13/17 at 14:45 Lactulose (Lactulose Liq) 30 ml DAILY PRN PO SEVERE CONSITIPATION; Start at 14:45 Levothyroxine Sodium (Synthroid) 50 mcg DAILY@0600 PO Last administered on 06/17 06:53; Start 06/14/17 at 06:00 Lorazepam (Ativan) 0.5 mg TID PRN PO ANXIETY Last administered on 06/17/17 00: 08; Start 06/13/17 at 23:00 Mannitol (Mannitol Inj) 12.5 gm UNSCH PRN IV WITH DIALYSIS; Start 06/13/17 at 14:00 Methylprednisolone Sodium Succinate (SoluMEDROL INJ) 125 mg ONCE ONCE IV PUSH Last administered on 06/13/17 13:00; Start 06/13/17 at 12:15; Stop 06/13/17 at 12:16; Status DC Midodrine (Proamatine) 10 mg TID@07,12,17 PO Last administered on 06/17/17 06: 54; Start 06/13/17 at 17:00 Naloxone HCl (Narcan Inj) 0.4 mg UNSCH PRN IV PUSH SEE LABEL COMMENTS; Start 06/13/17 at 14:45 Nitroglycerin (Nitrostat Sl) 0.4 mg UNSCH PRN SL CHEST PAIN; Start 06/13/17 at 14:00 Ondansetron HCl (Zofran Inj) 4 mg Q6H PRN IVP NAUSEA OR VOMITING; Start at 14:45 Pantoprazole Sodium (Protonix) 40 mg DAILY PO Last administered on 06/17/17 09 :49; Start 06/14/17 at 09:00 Piperacillin Sod/ Tazobactam Sod 50 ml @ 100 mls/hr ONCE ONCE IV Last administered on 06/13/17 13:54; Start 06/13/17 at 13:30; Stop 06/13/17 at 13:59 ; Status DC Senna/Docusate Sodium (Yelena-Colace) 1 tab BID PO Last administered on 12:21; Start 06/13/17 at 21:00 Sennosides (Senokot) 17.2 mg Q12H PRN PO MODERATE - SEVERE CONSTIPATION; Start 06/13/17 at 14:45 Sodium Chloride (NS Flush) 2 ml UNSCH PRN IV FLUSH FLUSH AFTER USING IV ACCESS Last administered on 06/13/17 20:31; Start 06/13/17 at 14:45 Sucralfate (Carafate) 1 gm BIDAC PO Last administered on 06/17/17 06:53; Start 06/13/17 at 16:00 Trazodone HCl (Desyrel) 150 mg HS PO Last administered on 06/16/17 21:11; Start 06/13/17 at 21:00 Vancomycin HCl 1500 mg/Sodium Chloride 515 ml @ 257.5 mls/ hr WITH DIALYSIS ONCE IV Last administered on 06/13/17 16:54; Start 06/13/17 at 15:00; Stop at 16:59; Status DC Assessment and Plan Problem List: (1) ESRD (end stage renal disease) ICD Codes: N18.6 - End stage renal disease Status: Chronic Plan: dialysis Assessment and Plan ESRD sepsis ck lab in am have pt eval and rx supplement calcium placement ck lab am Bryan Bustos DO Jun 17, 2017 12:16
[2017-06-17] MEDS: CALCIUM/VITAMIN D 250 MG/125 U TAB PO SCH ×2 (13:26→16:44)
[2017-06-17 16:00] VITALS: BP 123/64; PULSE 96; RESP 20; TEMP 97.4; O2SAT 92
[2017-06-17 20:00] VITALS: BP 125/59; PULSE 92; PULSE 95; RESP 18; TEMP 97.6; O2SAT 96
[2017-06-17] MEDS: ATORVASTATIN 40 MG TAB PO SCH (21:43)
[2017-06-17] MEDS: traZODone HCL 50 MG TAB PO SCH (21:43)
[2017-06-18] VITALS (7 sets, daily range): BP systolic 94–111; BP diastolic 51–60; PULSE 88–101; RESP 18–20; TEMP 97.2–98.5; O2SAT 91–97
[2017-06-18] MEDS: CALCIUM CARBONATE 500 MG CHEWABLE TAB CHEW SCH ×3 (04:39→14:20)
[2017-06-18] MEDS: SUCRALFATE 1 GM TAB PO SCH (05:56)
[2017-06-18] MEDS: MIDODRINE 5 MG TAB PO SCH ×2 (05:56→14:20)
[2017-06-18] MEDS: LEVOTHYROXINE SODIUM 50 MCG TAB PO SCH (05:56)
[2017-06-18] MEDS: IBUPROFEN 400 MG TAB PO PRN (06:26)
[2017-06-18] MEDS ORDERED: CALCITRIOL 0.25 MCG CAP PO SCH (09:00)
[2017-06-18] MEDS: CALCIUM/VITAMIN D 250 MG/125 U TAB PO SCH ×2 (09:00→14:20)
--- NOTE | 2017-06-18 09:23 | HHI.DS ---
Discharge Summary Admission Date Jun 13, 2017 at 13:45 Discharge Date: Jun 18, 2017 Admitting Diagnosis COPD exacerbation, leukocytosis, ESRD, hypotension (1) Dependent on hemodialysis Diagnosis: Secondary ICD Codes: Z99.2 - Dependence on renal dialysis Status: Chronic (2) Morbid obesity ICD Codes: E66.01 - Morbid (severe) obesity due to excess calories Status: Chronic (3) ESRD (end stage renal disease) Diagnosis: Secondary ICD Codes: N18.6 - End-stage renal disease Status: Chronic (4) Hypocalcemia Diagnosis: Principal ICD Codes: E83.51 - Hypocalcemia Status: Resolved (5) COPD (chronic obstructive pulmonary disease) Diagnosis: Principal ICD Codes: J44.9 - Chronic obstructive pulmonary disease Status: Chronic (6) Leukocytosis Diagnosis: Principal ICD Codes: D72.829 - Leukocytosis Status: Acute Procedures Dialysis this AM Brief History Patient is a 56-year-old the female with end-stage renal disease, status post parathyroidectomy, recurrent hypocalcemia. She was at dialysis and became unstable and was transferred to [facility], she was found to have sepsis with a high white cell count and was started on IV antibiotics in the ED. She also complain of her right foot injury and her toe has a wound. She has hypocalcemia potassium is 5.9 and found to have hypotension she was given normal saline. CBC/BMP: 06/17/17 0632 06/17/17 0632 Significant Findings Laboratory Tests Test 06/17/17 06:32 06/18/17 06:48 Mean Corpuscular Hemoglobin Concent 31.8 % (32.0-36.0) Neutrophils (%) (Auto) 77.1 % (16.0-70.0) Lymphocytes (%) (Auto) 8.3 % (9.0-44.0) Eosinophils (%) (Auto) 6.4 % (0.0-4.0) Neutrophils # (Auto) 8.3 TH/MM3 (1.8-7.7) Lymphocytes # (Auto) 0.9 TH/MM3 (1.0-4.8) Eosinophils # (Auto) 0.7 TH/MM3 (0-0.4) Blood Urea Nitrogen 76 MG/DL (7-18) Creatinine 8.58 MG/DL (0.50-1.00) Random Glucose 134 MG/DL (74-106) Calcium Level 7.2 MG/DL (8.5-10.1) Sodium Level 128 MEQ/L (136-145) Chloride Level 92 MEQ/L (98-107) Estimat Glomerular Filtration Rate 6 ML/MIN (>89) Protein Corrected Calcium 6.8 MG/DL (8.5-10.1) PE at Discharge Gen - Obese awake and alert HEENT - AT Resp - CTA CV - RRR without M/R/G. Abd - Protuberant with active BS and nontender to palpation MS - Venous stasis BLE and no edema noted Hospital Course She was admitted with leukocytosis and hypotension during dialysis. Her calcium was found to be low and her calcitriol and supplemental calcium was increased. Leukocytosis resolved and COPD stabilized on home meds. She is for dialysis this am and has been cleared for D/C per renal. Pt Condition on Discharge: Stable Discharge Disposition: Discharge Home Discharge Instructions DIET: Follow Instructions for: As Tolerated, No Restrictions, Renal Failure Diet Speech Therapy-Diet Recommenda: Regular Fluid Restrictions: 1500 ml per day Activities you can perform: Regular-No Restrictions Gabe Arora Jun 18, 2017 09:23
[2017-06-18 09:28] LABS: BICARBONATE 24.3 MEQ/L (21.0-32.0); POTASSIUM 5.6 MEQ/L (3.5-5.1)
[2017-06-18] MEDS ORDERED: BENA25CA4 PO (09:29)
[2017-06-18] MEDS ORDERED: CYCL1TAB29 PO (09:29)
[2017-06-18] MEDS ORDERED: IBUP800T23 PO (09:35)
[2017-06-18 10:20] LABS: CALCIUM-PROTEIN CORRECTED 6.9 MG/DL (8.5-10.1)
[2017-06-18] MEDS: HEPARIN SODIUM - IV 10,000 UNITS/10 ML VIAL PRN (10:58)
[2017-06-18] MEDS: GENTAMICIN SULFATE (DIALYSIS USE ONLY) 20 MG/2 ML VIAL OTHER PRN (10:59)
--- NOTE | 2017-06-18 11:13 | HHI.NPPN ---
Subjective History of Present Illness 56 year old female with ESRD, Hypocalcemia s/p Parathyroidectomy Additional Remarks Patient is alert, sitting on chair, no SOB, clinically same. Objective Data Data Vital Signs Date Time Temp Pulse Resp B/P (MAP) Pulse Ox O2 Delivery O2 Flow Rate FiO2 06/18/17 08:20 92 06/18/17 08:20 Room Air 06/18/17 08:03 97.6 92 20 111/59 (76) 94 06/18/17 06:32 97.2 94 18 104/57 (73) 94 06/18/17 06:25 97 21 06/18/17 04:00 98.5 92 18 102/60 (74) 94 06/18/17 00:00 98.1 88 18 108/55 (72) 96 06/18/17 00:00 Room Air 06/17/17 20:00 Room Air 06/17/17 20:00 97.6 92 18 125/59 (81) 96 06/17/17 20:00 95 06/17/17 16:00 97.4 96 20 123/64 (83) 92 06/17/17 12:00 97.4 94 18 108/70 (83) 91 -: 06/17/17 0632 06/18/17 0648 Physical Exam General Appearance: Well Developed, Obese Neck Neck Exam: Neck Supple Pulmonary Resp Exam: Clear Bilaterally, Breath Sounds Equal Cardiology CV Exam: Regular, Normal Sinus Rhythm Gastrointestinal/Abdomen GI Exam: Soft, Non-Tender, Bowel Sounds Present Extremeties Extremities Exam: Trace Edema Neurologic Neuro Exam: Alert Assessment/Plan Problem List: (1) End stage renal disease ICD Codes: N18.6 - End stage renal disease Status: Acute Plan: She is doing better hemodialysis will be scheduled for Sunday and Sunday Continue HD as per schedule. she is doing well, seen at HD UF 3 L tolerating it Calcitriol increased (2) Hypocalcemia ICD Codes: E83.51 - Hypocalcemia Status: Resolved Plan: Calcium 6.8 (3) Sepsis ICD Codes: A41.9 - Sepsis, unspecified organism Status: Acute Plan: Broad-spectrum antibiotic (4) DM (diabetes mellitus) ICD Codes: E11.9 - DM (diabetes mellitus) Status: Chronic Plan: Follow blood glucose Plan Patient can be discharged from Nephrology. Problem Qualifiers (1) Sepsis: Qualified Codes: A41.9 - Sepsis, unspecified organism Frank Villagran MD Jun 18, 2017 11:13
[2017-06-18] MEDS: PANTOPRAZOLE SOD 40 MG DELAYED RELEASE TAB PO SCH (14:20)
[2017-06-18] MEDS: GABAPENTIN 100 MG CAP PO SCH (14:20)
[2017-06-18] MEDS: ASPIRIN EC 81 MG TABEC PO SCH (14:20)
[2017-06-18] MEDS: buPROPion HCL 75 MG TAB PO SCH (14:20)
[2017-06-18] MEDS: DOCUSATE SODIUM 50 MG/SENNA 8.6 MG TAB PO SCH (14:20)
[2017-06-18] MEDS: CYCLOBENZAPRINE HCL 10 MG TAB PO PRN (14:27)
== END 2017-06-18 17:50 | disposition home or self-care (01) | DRG 871 ==
LOC: NEPE 11:46 → NEDA 13:45 → N04A 18:59
PROVIDERS: ADMIT Family Medicine; ATTEND Family Medicine
PROC: 3E0F7GC Introduction of Other Therapeutic Substance into Respiratory Tract, Via Natural or Artificial Opening (ICD-10-PCS; principal; 2017-06-13)
PROC: 5A1D70Z Performance of Urinary Filtration, Intermittent, Less than 6 Hours Per Day (ICD-10-PCS; 2017-06-13)
DX: A41.9 Sepsis, unspecified organism (principal); N18.6 End stage renal disease; I13.2 Hypertensive heart and chronic kidney disease with heart failure and with stage 5 chronic kidney disease, or end stage renal disease; E11.22 Type 2 diabetes mellitus with diabetic chronic kidney disease; I95.3 Hypotension of hemodialysis; E83.51 Hypocalcemia; J44.1 Chronic obstructive pulmonary disease with (acute) exacerbation; I50.9 Heart failure, unspecified; Z99.2 Dependence on renal dialysis; R55 Syncope and collapse; K21.9 Gastro-esophageal reflux disease without esophagitis; G47.30 Sleep apnea, unspecified; E03.9 Hypothyroidism, unspecified; M19.90 Unspecified osteoarthritis, unspecified site; F41.9 Anxiety disorder, unspecified; E66.01 Morbid (severe) obesity due to excess calories; E78.00 Pure hypercholesterolemia, unspecified; Z72.0 Tobacco use; I87.8 Other specified disorders of veins; Z86.39 Personal history of other endocrine, nutritional and metabolic disease
CPT/HCPCS: 71010; 76937; 80048; 80053; 82550; 82552; 83605; 83735; 83880; 84155; 84484; 85025; 85610; 85730; 87040; 90935; 93005; 94664; 96365; 96374; 96375; J0131; J0610; J1580; J1644; J2543; J2930; J3370; J7030; J7040; J7050; P9047

== ENCOUNTER 2017-09-12 15:52 | Inpatient (IN) | payer MEDICARE, OTHER ==
[~2017-09-12] VITALS: Ht 167.6 cm; Wt 164.0 kg
[~2017-09-12 15:52] MED LIST changes: -ASPI81TA11 PO; +ASPI81TA23 PO; +BENA25CA4 PO; +CYCL10TA PO; -CYCL1TAB29 PO; +IBUP1TAB7 PO
[2017-09-12 15:53] VITALS: BP 128/68; PULSE 104; RESP 20; TEMP 98; O2SAT 92
[2017-09-12 16:36] LABS: BASOPHIL # 0.1 TH/MM3 (0-0.2); BASOPHIL % 0.4 % (0.0-2.0); EOSINOPHIL # 0.7 TH/MM3 (0-0.4); EOSINOPHIL % 3.9 % (0.0-4.0); HEMATOCRIT 39.7 % (35.0-46.0); HEMOGLOBIN 12.5 GM/DL (11.6-15.3); LYMPH % 3.6 % (9.0-44.0); LYMPHOCYTE # 0.7 TH/MM3 (1.0-4.8); MEAN CELL VOLUME 88.9 FL (80.0-100.0); MEAN CORPUSCULAR HGB CONC 31.5 % (32.0-36.0); MEAN PLATELET VOLUME 7.4 FL (7.0-11.0); MONO % 4.4 % (0.0-8.0); MONOCYTE # 0.8 TH/MM3 (0-0.9); NEUT % 87.7 % (16.0-70.0); PLATELET COUNT 324 TH/MM3 (150-450); RED BLOOD COUNT 4.47 MIL/MM3 (4.00-5.30); RED CELL DISTRIBUTION WIDTH 16.1 % (11.6-17.2); WHITE BLOOD COUNT 18.2 TH/MM3 (4.0-11.0)
[2017-09-12 17:33] LABS: BICARBONATE 25.9 MEQ/L (21.0-32.0); CREATININE 4.81 MG/DL (0.50-1.00)
[2017-09-12 17:45] VITALS: BP 93/58; PULSE 90; RESP 18; O2SAT 94
[2017-09-12 18:00] LABS: TOTAL PROTEIN 9.2 GM/DL (6.4-8.2)
[2017-09-12 18:16] LABS: CALCIUM 7.3 MG/DL (8.5-10.1)
[2017-09-12 19:02] VITALS: BP 106/56; PULSE 93; RESP 20; O2SAT 93
--- NOTE | 2017-09-12 21:37 | RADRPT ---
EXAM DATE/TIME: 09/12/2017 20:40 [facility] COMPARISON: No previous studies available for comparison. INDICATIONS : Right foot pain no injury. MEDICAL HISTORY : Diabetes mellitus type II. SURGICAL HISTORY : 1st and 2nd digits removed. ENCOUNTER: Initial ACUITY: >1 year PAIN SCORE: 10/10 LOCATION: Right plantar surface of foot. FINDINGS: There is evidence for amputation of the first and second digits at the level of the proximal phalanx. There is extensive destruction of the fourth proximal and middle phalanges. Chronic atherosclerotic calcifications are seen involving the visualized arteries. CONCLUSION: Destruction of the fourth proximal and middle phalanges could represent osteomyelitis in the appropri ate clinical setting. Juanjo Oleary MD on September 12, 2017 at 21:34 Board Certified Radiologist. This report was verified electronically.
--- NOTE | 2017-09-12 21:41 | PD ---
HPI Chief Complaint: Skin Problem Time Seen by Provider: 18:28 Travel History International Travel<30 days: No Contact w/Intl Traveler<30days: No Traveled to known affect area: No History of Present Illness HPI 57-year-old female presents emergency department for evaluation of right foot pain. Patient states she is on the pain for several months. The pain is getting worse. It is noted upon assessment that the patient has had first and second digit and be dictated on the right foot and the first digit amputated on the left foot. The patient is on hemodialysis Sunday, Sunday, Sunday. She receives her hemodialysis today. Patient has a new Vas-Cath that was placed yesterday in her right groin. Patient has a history of having a AV graft in her right arm that malfunction abruptly 2 years ago when he changed it to her left arm when not malfunctioned they moved it to the left groin and now they're trying to Vas-Cath in the right groin. Patient denies any fever, chills, chest pain, vomiting. Patient states she always wakes up feeling nauseous in the morning. Patient is wheelchair-bound and believes there may be wounds to the posterior aspect of her bilateral thighs. PFSH Past Medical History Hx Anticoagulant Therapy: No Anemia: Yes Arthritis: Yes Asthma: Yes Autoimmune Disease: No Blood Disorders: No Anxiety: Yes Depression: Yes Heart Rhythm Problems: No Cancer: No Cardiovascular Problems: Yes (CHF, hyperlipidemia) High Cholesterol: Yes Chemotherapy: No Chest Pain: Yes Congestive Heart Failure: Yes COPD: Yes Cerebrovascular Accident: No Diabetes: Yes Patient Takes Glucophage: No Dialysis: Yes (M/W/F) Diminished Hearing: No Endocrine: Yes Gastrointestinal Disorders: Yes (ULCERS) GERD: Yes Glaucoma: No Genitourinary: Yes (ESRD, Dialysis) Headaches: Yes Hepatitis: No Hiatal Hernia: No Hypertension: Yes Immune Disorder: No Implanted Vascular Access Dvce: Yes (PERMACATH R GROIN FOR DIALYSIS) Kidney Stones: No Musculoskeletal: Yes Neurologic: Yes Psychiatric: Yes Reproductive: No Respiratory: Yes (COPD, asthma) Immunizations Current: Yes Migraines: No Myocardial Infarction: No Pneumonia: Yes (HX) Radiation Therapy: No Renal Failure: Yes (CRF) Seizures: No Sickle Cell Disease: No Sleep Apnea: Yes Thyroid Disease: Yes Ulcer: Yes PNEUMOCCOCAL Vaccine (Year): 3 Menopausal: Yes : 3 Para: 3 Miscarriage: 0 : 0 Past Surgical History Abdominal Surgery: Yes AICD: No Appendectomy: Yes Arteriovenous Shunt: Yes (right femoral ) Body Medical Devices: Old nonfunctioning NANCY fistula. Current- Permacath Right Groin Cardiac Surgery: No Cholecystectomy: Yes Ear Surgery: No Endocrine Surgery: Yes (THYROIDECTOMY) Eye Surgery: Yes (LASIK right cataract removed / left removed) Genitourinary Surgery: Yes (Peritoneal Abdominal Catheter removed april 2015) Gynecologic Surgery: Yes (Partial Hysterectomy and Appendectomy ) Hysterectomy: Yes (PARTIAL ) Insulin Pump: No Joint Replacement: No Neurologic Surgery: No Oral Surgery: Yes (ALL TEETH REMOVED) Pacemaker: No Thoracic Surgery: No Other Surgery: Yes (GREAT TOE AMPUTATION R/L FOOT) Social History Alcohol Use: No Tobacco Use: Yes (09/11 PPD) Substance Use: No Allergies-Medications (Allergen,Severity, Reaction): Coded Allergies: levofloxacin (Unverified Allergy, Severe, Anaphylaxis, 09/12/17) ANAPHYLAXIS Reported Meds & Prescriptions Reported Meds & Active Scripts Active Benadryl Allergy (Diphenhydramine HCl) 25 Mg Cap 25 Mg PO UNSCH PRN 7 Days Flexeril (Cyclobenzaprine HCl) 10 Mg Tab 10 Mg PO BID PRN 30 Days Trazodone (Trazodone HCl) 50 Mg Tab 150 Mg PO HS Rocaltrol (Calcitriol) 0.25 Mcg Cap 0.5 Mcg PO DAILY Calcium Carbonate (Antacid) 500 Mg Chew 1,000 Mg CHEW Q4HR Midodrine 5 Mg Tab 10 Mg PO TID@07,12,17 Aspirin EC (Aspirin) 81 Mg Tabdr 81 Mg PO DAILY Reported Proair Hfa 8.5 GM Inh (Albuterol Sulfate) 90 Mcg/Act Aer 2 Puff INH Q6H PRN 108 mcg/actuation Gabapentin 100 Mg Cap 100 Mg PO TID Sucralfate 1 Gm Tab 1 Gm PO BIDAC on empty stomach Pantoprazole (Pantoprazole Sodium) 40 Mg Tab 40 Mg PO DAILY Levothyroxine (Levothyroxine Sodium) 50 Mcg Tab 50 Mcg PO DAILY Bupropion HCl 75 Mg Tab 75 Mg PO DAILY Atorvastatin (Atorvastatin Calcium) 40 Mg Tab 40 Mg PO HS Review of Systems Except as stated in HPI: all other systems reviewed are Neg Physical Exam Narrative GENERAL: Morbidly obese, chronically ill-appearing 57-year-old female in no acute respiratory distress. Moderate discomfort noted secondary to pain. SKIN: Bilateral lower extremities show discoloration and skin thinning from the mid calf to the feet with dry flaky skin. Vas-Cath noted to right groin. An breakdown noted between adipose tissue on the abdomen and upper leg. Bilateral posterior thighs show skin breakdown with malodorous drainage. Wound to the dorsal aspect of the third digit on the right foot draining purulent drainage and is malodorous. HEAD: Atraumatic. Normocephalic. EYES: Pupils equal and round. No injection or drainage. NECK: Trachea midline. No JVD. CARDIOVASCULAR: Regular rate and rhythm. No murmur appreciated. Pedal pulses dopplered. RESPIRATORY: No accessory muscle use. Clear to auscultation. Breath sounds equal bilaterally. GASTROINTESTINAL: Abdomen large, soft, non-tender, nondistended. Hepatic and splenic margins not palpable. MUSCULOSKELETAL: +1 pedal edema bilaterally. First and second digit on the right foot has been amputated. First digit on the left foot has been amputated. No obvious deformities. NEUROLOGICAL: Awake and alert. No obvious cranial nerve deficits. Motor grossly within normal limits. Normal speech. Data Data Last Documented VS Vital Signs Date Time Temp Pulse Resp B/P (MAP) Pulse Ox O2 Delivery O2 Flow Rate FiO2 09/12/17 19:02 93 20 106/56 (73) 93 Room Air 09/12/17 15:53 98.0 Orders Orders Basic Metabolic Panel (Bmp) (09/12/17 16:05) Complete Blood Count With Diff (09/12/17 16:05) Protein Corrected Calcium(Pcc) (09/12/17 16:10) Electrocardiogram (09/12/17 18:54) Lactic Acid Sepsis Protocol (09/12/17 18:54) Blood Culture (09/12/17 18:54) Wound Culture And Gram Stain (09/12/17 19:16) Foot, Complete (Ntw2vdo) (09/12/17 20:27) Vancomycin Inj (Vancomycin Inj) (09/12/17 22:00) Potassium Chloride (Kcl) (09/12/17 22:00) Hydromorphone Pf Inj (Dilaudid Pf Inj) (09/12/17 22:30) Admit Order (Ed Use Only) (09/12/17 22:30) Labs Laboratory Tests Test 09/12/17 16:10 09/12/17 19:30 White Blood Count 18.2 TH/MM3 Red Blood Count 4.47 MIL/MM3 Hemoglobin 12.5 GM/DL Hematocrit 39.7 % Mean Corpuscular Volume 88.9 FL Mean Corpuscular Hemoglobin 28.0 PG Mean Corpuscular Hemoglobin Concent 31.5 % Red Cell Distribution Width 16.1 % Platelet Count 324 TH/MM3 Mean Platelet Volume 7.4 FL Neutrophils (%) (Auto) 87.7 % Lymphocytes (%) (Auto) 3.6 % Monocytes (%) (Auto) 4.4 % Eosinophils (%) (Auto) 3.9 % Basophils (%) (Auto) 0.4 % Neutrophils # (Auto) 16.0 TH/MM3 Lymphocytes # (Auto) 0.7 TH/MM3 Monocytes # (Auto) 0.8 TH/MM3 Eosinophils # (Auto) 0.7 TH/MM3 Basophils # (Auto) 0.1 TH/MM3 CBC Comment DIFF FINAL Differential Comment Blood Urea Nitrogen 22 MG/DL Creatinine 4.81 MG/DL Random Glucose 132 MG/DL Total Protein 9.2 GM/DL Calcium Level 7.3 MG/DL Sodium Level 135 MEQ/L Potassium Level 3.3 MEQ/L Chloride Level 98 MEQ/L Carbon Dioxide Level 25.9 MEQ/L Anion Gap 11 MEQ/L Estimat Glomerular Filtration Rate 11 ML/MIN Protein Corrected Calcium MG/DL Lactic Acid Level 1.7 mmol/L MDM Medical Decision Making Medical Screen Exam Complete: Yes Emergency Medical Condition: Yes Differential Diagnosis Differential diagnoses include but not limited to sepsis, osteomyelitis, PAD, vascular insufficiency, acute embolism, wound infection Narrative Course IV obtained and CBC, BMP, blood culture, lactic acid ordered and pending. Wound culture of the third digit on the right foot ordered and pending. EKG ordered and interpreted. Right foot x-ray ordered and pending. Pedal pulses dopplered. Bilateral feet are warm to the touch. EKG shows sinus rhythm with heart rate 87. CBC shows leukocytosis at 18.2 BMP shows sodium 135, potassium 3.3, BUN 22, creatinine 4.81, GFR 11, glucose 132, calcium 7.3 Lactic acid 1.7 X-ray of the right foot shows obstruction of the fourth proximal and middle phalanges that could represent osteomyelitis. X-ray of the right foot coupled with the patient's pain and leukocytosis indicates osteomyelitis. Patient given 1 g IV vancomycin and admitted for further observation. Dr. Pate accepts admission at this time. Diagnosis Primary Impression: Osteomyelitis Qualified Codes: M86.9 - Osteomyelitis, unspecified Additional Impression: Leukocytosis Qualified Codes: D72.829 - Elevated white blood cell count, unspecified Admitting Information Admitting Physician Requests: Admit Leonie Land Sep 12, 2017 21:41
[2017-09-12] MEDS ORDERED: POTASSIUM CHLORIDE 20 MEQ CONTROLLED RELEASE TAB PO ONE (22:00)
[2017-09-12] MEDS ORDERED: VANCOMYCIN INJ 1,000 MG in SODIUM CHLOR 0.9% 250 ML INJ 250 ML IV ONE (22:00)
[2017-09-12] MEDS ORDERED: HYDROmorphone HCL PF 2 MG/ML VIAL IVS ONE (22:30)
[2017-09-12] MEDS ORDERED: ACETAMINOPHEN/HYDROcodone 325 MG/5 MG TAB PO PRN (23:15)
[2017-09-12] MEDS: ATORVASTATIN 40 MG TAB PO SCH (23:15)
[2017-09-12] MEDS ORDERED: SENNOSIDES 8.6 MG TAB PO PRN (23:15)
[2017-09-12] MEDS ORDERED: MAGNESIUM HYDROXIDE SUSP 30 ML CUP PO PRN (23:15)
[2017-09-12] MEDS ORDERED: ACETAMINOPHEN 325 MG TAB PO PRN (23:15)
[2017-09-12] MEDS ORDERED: BISACODYL 10 MG SUPP RECTAL PRN (23:15)
[2017-09-12] MEDS ORDERED: Vancomycin Consult Pharmacy 1 EA OTHER SCH (23:15)
[2017-09-12] MEDS ORDERED: CYCLOBENZAPRINE HCL 10 MG TAB PO PRN (23:15)
[2017-09-12] MEDS ORDERED: ALBUTEROL SULFATE 90 MCG/ACT HFA 8 GM INHALER INH PRN (23:15)
[2017-09-12] MEDS ORDERED: LACTULOSE SYRUP 20 GM/30 ML CUP PO PRN (23:15)
[2017-09-12] MEDS ORDERED: NALOXONE HCL 0.4 MG/ML AMP IV PUSH PRN (23:15)
[2017-09-12] MEDS: traZODone HCL 50 MG TAB PO SCH (23:15)
[2017-09-12] MEDS ORDERED: SODIUM CHLORIDE 0.9% FLUSH 10 ML FLUSH IV FLUSH PRN (23:15)
--- NOTE | 2017-09-12 23:24 | HHI.HP ---
[facility] Service [facility] Primary Care Physician No Primary Care Physician Admission Diagnosis osteomyelitis, leukocytosis Diagnoses: Chief Complaint: right 4th toe wound/pain Travel History International Travel<30 Days: No Contact w/Intl Traveler <30 Da: No Traveled to Known Affected Are: No Sepsis Criteria SIRS Criteria (2 or more): Heart rate over 90, WBC > 89405, < 4000 or > 10% bands Sepsis Criteria (SIRS+source): Infect source susp/known Criteria Outcome: Meets sepsis criteria History of Present Illness 57-year-old female with history of ESRD on HD MWF, hypotension on midodrine, diet-controlled diabetes, CHF, COPD, hypothyroidism, hyperlipidemia, anxiety/ depression, hypocalcemia, presents with a two-month history of worsening right fourth toe ulcer pain and drainage. Patient reports approximately two months ago she started to notice a "sore" on the dorsal aspect of her right fourth toe with pain limited to just the toe. Then one month ago she started to notice drainage from the wound described as a brown pus. Denies fevers or chills. She did notice some warmth of the foot but denies any erythema. She also had worsening constant throbbing pain from the right 4th toe up to the mid holt with difficulty ambulating over the past month. She has been mostly limited to her scooter and bed, and only able to ambulate 1-2 steps to the restroom. Today she states the pain became unbearable therefore she presented to the ED. She states she was released from Dr. Bustos's primary care service a few months ago and was recently set up to see a PCP through [facility] on 09/18 at 1pm. She felt she could not wait any longer to see a physician regarding her foot. She is followed by portfolio specialist Dr. Villagran. She has history of right 1st and 2nd toe amput[place] to an infected ulcer. The patient also reports recent diarrhea, 5 episodes yesterday. She denies any recent antibiotic use. She denies any abdominal pain, nausea, or vomiting. She has no other medical complaints at this time including no chest pain, palpitations, shortness of breath, or urinary complaints. Review of Systems Except as stated in HPI: all other systems reviewed are Neg Past Family Social History Past Medical History ESRD on HD MWF hypotension on midodrine diet-controlled diabetes CHF COPD hypothyroidism hyperlipidemia anxiety depression hypocalcemia neuropathy Past Surgical History Nonfunctioning AV fistula Cholecystectomy Parathyroidectomy Cataract removal Hysterectomy Appendectomy Right first and second toe amputations Recent right groin permacath placement abdominal peritoneal catheter placement/removed Dental extractions Reported Medications Benadryl Allergy (Diphenhydramine HCl) 25 Mg Cap 25 Mg PO UNSCH PRN 7 Days Flexeril (Cyclobenzaprine HCl) 10 Mg Tab 10 Mg PO BID PRN 30 Days Trazodone (Trazodone HCl) 50 Mg Tab 150 Mg PO HS Rocaltrol (Calcitriol) 0.25 Mcg Cap 0.5 Mcg PO DAILY Calcium Carbonate (Antacid) 500 Mg Chew 1,000 Mg CHEW Q4HR Midodrine 5 Mg Tab 10 Mg PO TID@07,12,17 Aspirin EC (Aspirin) 81 Mg Tabdr 81 Mg PO DAILY Proair Hfa 8.5 GM Inh (Albuterol Sulfate) 90 Mcg/Act Aer 2 Puff INH Q6H PRN 108 mcg/actuation Gabapentin 100 Mg Cap 100 Mg PO TID Sucralfate 1 Gm Tab 1 Gm PO BIDAC on empty stomach Pantoprazole (Pantoprazole Sodium) 40 Mg Tab 40 Mg PO DAILY Levothyroxine (Levothyroxine Sodium) 50 Mcg Tab 50 Mcg PO DAILY Bupropion HCl 75 Mg Tab 75 Mg PO DAILY Atorvastatin (Atorvastatin Calcium) 40 Mg Tab 40 Mg PO HS Allergies: Coded Allergies: levofloxacin (Unverified Allergy, Severe, Anaphylaxis, 09/12/17) ANAPHYLAXIS Active Ordered Medications Current Medications Medications (Trade) Dose Ordered Sig/Mary Grace Route Start Time Stop Time Status Last Admin Pharmacy Profile Note 0 ml @ 0 mls/hr UNSCH OTHER 09/12/17 23:15 UNV Piperacillin Sod/ Tazobactam Sod 50 ml @ 200 mls/hr Q6H IV 09/13/17 00:00 (NS Flush) 2 ml UNSCH PRN IV FLUSH 09/12/17 23:15 UNV (NS Flush) 2 ml BID IV FLUSH 09/13/17 09:00 UNV (Zofran Inj) 4 mg Q6H PRN IVP 09/12/17 23:15 UNV (Heparin Inj) 5,000 units Q12H SQ 09/12/17 23:15 UNV (Tylenol) 650 mg Q6H PRN PO 09/12/17 23:15 UNV ([place] 5-325 Mg) 1 tab Q4H PRN PO 09/12/17 23:15 UNV ([place] 7.5-325 Mg) 1 tab Q4H PRN PO 09/12/17 23:15 UNV (Narcan Inj) 0.4 mg UNSCH PRN IV PUSH 09/12/17 23:15 UNV (Milk Of Magnesia Liq) 30 ml Q12H PRN PO 09/12/17 23:15 UNV (Senokot) 17.2 mg Q12H PRN PO 09/12/17 23:15 UNV (Dulcolax Supp) 10 mg DAILY PRN RECTAL 09/12/17 23:15 UNV (Lactulose Liq) 30 ml DAILY PRN PO 09/12/17 23:15 UNV (Dilaudid Pf Inj) 0.5 mg Q4H PRN IV PUSH 09/12/17 23:15 UNV Family History Mother with diabetes and heart disease Father with prostate cancer Social History Smokes tobacco, off/on since age 18, currently smokes 5-6 cigarettes daily Occasional alcohol use, drinks one beer every couple weeks Prior cocaine and marijuana use in her 20s, no recent illicit drug use Physical Exam Vital Signs Vital Signs Date Time Temp Pulse Resp B/P (MAP) Pulse Ox O2 Delivery O2 Flow Rate FiO2 09/12/17 19:02 93 20 106/56 (73) 93 Room Air 09/12/17 17:45 90 18 93/58 (70) 94 Room Air 09/12/17 15:53 98.0 104 20 128/68 (88) 92 Room Air Physical Exam GENERAL: Well-nourished, well-developed chronically ill-appearing middle-aged AA female patient in NAD. SKIN: Warm and dry. Skin breakdown throughout lower abdomen and bilateral posterior thighs. HEAD: Normocephalic. Atraumatic. EYES: Pupils equal and round. No scleral icterus. No injection or drainage. ENT: No nasal bleeding or discharge. Mucous membranes pink and moist. NECK: Supple. Trachea midline. CARDIOVASCULAR: Regular rate and rhythm. S1, S2 noted. No murmur appreciated. RESPIRATORY: No accessory muscle use. Clear to auscultation. Breath sounds equal bilaterally. GASTROINTESTINAL: Abdomen soft, non-tender, nondistended. Normoactive bowel sounds x4. MUSCULOSKELETAL: Right 1st and 2nd toe amputations. 1 cm ulcer on the dorsal aspect of the right 4th toe, with purulent drainage, foul odor, surrounding erythema/edema extending up to the mid foot, with TTP throughout the third and fourth toes up to the mid foot. Right groin with Vas-Cath. 2+ bilateral dorsalis pedis pulses. NEUROLOGICAL: Awake and alert. No obvious cranial nerve deficits. Motor grossly within normal limits. Moves all extremities spontaneously. Normal speech. PSYCHIATRIC: Appropriate mood and affect; insight and judgment normal. Laboratory Laboratory Tests Test 09/12/17 16:10 09/12/17 19:30 White Blood Count 18.2 Red Blood Count 4.47 Hemoglobin 12.5 Hematocrit 39.7 Mean Corpuscular Volume 88.9 Mean Corpuscular Hemoglobin 28.0 Mean Corpuscular Hemoglobin Concent 31.5 Red Cell Distribution Width 16.1 Platelet Count 324 Mean Platelet Volume 7.4 Neutrophils (%) (Auto) 87.7 Lymphocytes (%) (Auto) 3.6 Monocytes (%) (Auto) 4.4 Eosinophils (%) (Auto) 3.9 Basophils (%) (Auto) 0.4 Neutrophils # (Auto) 16.0 Lymphocytes # (Auto) 0.7 Monocytes # (Auto) 0.8 Eosinophils # (Auto) 0.7 Basophils # (Auto) 0.1 CBC Comment DIFF FINAL Differential Comment Blood Urea Nitrogen 22 Creatinine 4.81 Random Glucose 132 Total Protein 9.2 Calcium Level 7.3 Sodium Level 135 Potassium Level 3.3 Chloride Level 98 Carbon Dioxide Level 25.9 Anion Gap 11 Estimat Glomerular Filtration Rate 11 Protein Corrected Calcium Lactic Acid Level 1.7 Date/Time Source Procedure Growth Status 09/12/17 19:50 Blood Peripheral Aerobic Blood Culture Pending Received 09/12/17 19:50 Blood Peripheral Anaerobic Blood Culture Pending Received Result Diagram: 09/12/17 1610 09/12/17 1610 Imaging Last Impressions Foot X-Ray 09/12/172026 Signed Impressions: Service Date/Time: Tuesday, September 12, 2017 20:40 - CONCLUSION: Destruction of the fourth proximal and middle phalanges could represent osteomyelitis in the appropriate clinical setting. Juanjo Oleary MD Caprini VTE Risk Assessment Caprini VTE Risk Assessment: Mod/High Risk (score >= 2) Caprini Risk Assessment Model Point Value = 1 Point Value = 2 Point Value = 3 Point Value = 5 Age 41-60 Minor surgery BMI > 25 kg/m2 Swollen legs Varicose veins or History of unexplained or recurrent spontaneous Oral contraceptives or hormone replacement Sepsis (< 1 month) Serious lung disease, including pneumonia (< 1 month) Abnormal pulmonary function Acute myocardial infarction Congestive heart failure (< 1 month) History of inflammatory bowel disease Medical patient at bed rest Age 61-74 Arthroscopic surgery Major open surgery (> 45 min) Laparoscopic surgery (> 45 min) Malignancy Confined to bed (> 72 hours) Immobilizing plaster cast Central venous access Age >= 75 History of VTE Family history of VTE Factor V Leiden Prothrombin [id number] Lupus anticoagulant Anticardiolipin antibodies Elevated serum homocysteine Heparin-induced thrombocytopenia Other congenital or acquired thrombophilia Stroke (< 1 month) Elective arthroplasty Hip, pelvis, or leg fracture Acute spinal cord injury (< 1 month) Prophylaxis Regimen Total Risk Factor Score Risk Level Prophylaxis Regimen 0-1 Low Early ambulation 2 Moderate Order ONE of the following: *Sequential Compression Device (SCD) *Heparin 5000 units SQ BID 3-4 Higher Order ONE of the following medications: *Heparin 5000 units SQ TID *Enoxaparin/Lovenox 40 mg SQ daily (WT < 150 kg, CrCl > 30 mL/min) *Enoxaparin/Lovenox 30 mg SQ daily (WT < 150 kg, CrCl > 10-29 mL/min) *Enoxaparin/Lovenox 30 mg SQ BID (WT < 150 kg, CrCl > 30 mL/min) AND/OR *Sequential Compression Device (SCD) 5 or more Highest Order ONE of the following medications: *Heparin 5000 units SQ TID (Preferred with Epidurals) *Enoxaparin/Lovenox 40 mg SQ daily (WT < 150 kg, CrCl > 30 mL/min) *Enoxaparin/Lovenox 30 mg SQ daily (WT < 150 kg, CrCl > 10-29 mL/min) *Enoxaparin/Lovenox 30 mg SQ BID (WT < 150 kg, CrCl > 30 mL/min) AND *Sequential Compression Device (SCD) Assessment and Plan Problem List: (1) Osteomyelitis ICD Code: M86.9 - Osteomyelitis, unspecified Status: Acute (2) ESRD (end stage renal disease) ICD Code: N18.6 - End-stage renal disease Status: Chronic (3) Sepsis ICD Code: A41.9 - Sepsis, unspecified organism Assessment and Plan 57-year-old female with history of ESRD on HD MWF, hypotension on midodrine, diet-controlled diabetes, CHF, COPD, hypothyroidism, hyperlipidemia, anxiety/ depression, hypocalcemia, presents with a two-month history of worsening right fourth toe ulcer pain and drainage. Sepsis with Right 4th Toe Osteomyelitis: Patient meets sepsis criteria with leukocytosis WBC 18K and tachycardia HR 104, with suspected source- osteomyelitis. Lactic Acid 1.7. -Right foot xray images reviewed, shows destruction of the 4th proximal and middle phalanges representing osteomyelitis -Give antibiotics with IV Zosyn and IV Vanco (pharmacy to dose) -Check right foot MRI to evaluate extent of osteomyelitis (patient has significant tenderness up to mid foot) -Obtain wound culture and blood cultures -Consult podiatry -Plan to consult infectious disease once culture resulted -Pain control with [place] prn pain scale and IV dilaudid 0.5mg q4h prn breakthrough pain ESRD on HD MWF: received dialysis today 09/12. Follows with portfolio specialist Dr. Villagran. -consult nephrology to resume dialysis Skin Breakdown of Buttocks: suspect secondary to patient being mostly scooter and bed bound [id number] -consult wound care Diarrhea: patient reports diarrhea over past few days, 5 episodes yesterday, no recent antibiotic use -will send stool for Cdiff and stool cultures -start on lactinex tid -monitor bowel movements Diet-Controlled Diabetes Mellitus: chronic. Not on medications -monitor Accu-checks and cover with SSI Hypotension: patient reports chronic hypotension, especially on dialysis days -continue patient's midodrine 10mg tid -monitor BP COPD: chronic, stable, does not appear to be in exacerbation -continue patient's albuterol inhaler q6h prn Hyperlipidemia: chronic, stable -continue patient's home statin Hypothyroidism: chronic, stable -continue patient's home synthroid Hypocalcemia: acute on chronic -continue patient's home calcium carbonate and calcitriol Tobacco Use: patient continues to smoke 5-6 cigarettes daily -counseled on cessation -nicotine patch DVT Prophylaxis: heparin sq GI Prophylaxis: on protonix Discussed Condition With Patient, Dr. Pate Physician Certification 2 Midnight Certification Type: Admission for Inpatient Services Order for Inpatient Services The services are ordered in accordance with Medicare regulations or non- Medicare payer requirements, as applicable. In the case of services not specified as inpatient-only, they are appropriately provided as inpatient services in accordance with the 2-midnight benchmark. Estimated LOS (days): 5 days is the estimated time the patient will need to remain in the hospital, assuming treatment plan goals are met and no additional complications. Post-Hospital Plan: Not yet determined Problem Qualifiers (1) Osteomyelitis: Qualified Codes: M86.9 - Osteomyelitis, unspecified Harmony Arroyo PA-C Sep 12, 2017 23:24
[2017-09-12 23:30] VITALS: BP 105/60; PULSE 86; RESP 18; TEMP 97.6; O2SAT 94
[2017-09-13] VITALS (12 sets, daily range): BP systolic 82–122; BP diastolic 53–59; PULSE 75–90; RESP 18–20; TEMP 97.5–98.1; O2SAT 90–96
[2017-09-13] MEDS ORDERED: DEXTROSE 50% IN WATER 50 ML VIAL(D50) IV PUSH PRN ×2 (00:15→11:30)
[2017-09-13] MEDS ORDERED: GLUCAGON 1 MG/ML VIAL OTHER PRN ×2 (00:15→11:30)
[2017-09-13] MEDS ORDERED: VANCOMYCIN 500 MG/NS 100 ML IV SCH ×2 (01:00)
[2017-09-13] MEDS: PIPERACIL-TAZO 2.25 GM PREMIX 50 ML IV SCH ×4 (01:35→18:02)
[2017-09-13] MEDS: HEPARIN SODIUM - SQ 10,000 UNITS/ML VIAL SQ SCH ×2 (01:48→11:51)
[2017-09-13] MEDS: CALCIUM CARBONATE 500 MG CHEWABLE TAB CHEW SCH ×6 (01:48→21:50)
[2017-09-13 05:59] LABS: AUTOMATED NEUTROPHIL # 11.8 TH/MM3 (1.8-7.7); BASOPHIL % 0.1 % (0.0-2.0); EOSINOPHIL # 0.5 TH/MM3 (0-0.4); EOSINOPHIL % 3.9 % (0.0-4.0); HEMATOCRIT 41.4 % (35.0-46.0); HEMOGLOBIN 13.3 GM/DL (11.6-15.3); LYMPH % 3.5 % (9.0-44.0); LYMPHOCYTE # 0.5 TH/MM3 (1.0-4.8); MEAN CELL VOLUME 90.6 FL (80.0-100.0); MEAN PLATELET VOLUME 7.7 FL (7.0-11.0); MONO % 5.4 % (0.0-8.0); MONOCYTE # 0.7 TH/MM3 (0-0.9); NEUT % 87.1 % (16.0-70.0); PLATELET COUNT 321 TH/MM3 (150-450); RED BLOOD COUNT 4.57 MIL/MM3 (4.00-5.30); RED CELL DISTRIBUTION WIDTH 16.3 % (11.6-17.2); WHITE BLOOD COUNT 13.5 TH/MM3 (4.0-11.0)
[2017-09-13] MEDS: LEVOTHYROXINE SODIUM 50 MCG TAB PO SCH (06:04)
[2017-09-13] MEDS: MIDODRINE 5 MG TAB PO SCH ×3 (06:04→16:45)
[2017-09-13] MEDS: ACETAMINOPHEN/HYDROcodone 325 MG/7.5 MG TAB PO PRN ×2 (06:21→19:39)
[2017-09-13 06:22] LABS: BICARBONATE 27.4 MEQ/L (21.0-32.0); CALCIUM 6.8 MG/DL (8.5-10.1)
[2017-09-13 06:39] LABS: TOTAL PROTEIN 9.2 GM/DL (6.4-8.2)
[2017-09-13] MEDS ORDERED: INSULIN ASPART SUPPLEMENTAL SCALE SQ SCH (08:00)
[2017-09-13] MEDS: LACTOBACILLUS ACIDOPHILUS TAB PO SCH ×3 (09:00→18:02)
[2017-09-13] MEDS: REMOVE OLD PATCH T-DERMAL SCH (09:00)
[2017-09-13] MEDS: PANTOPRAZOLE SOD 40 MG DELAYED RELEASE TAB PO SCH (09:00)
[2017-09-13] MEDS: ASPIRIN EC 81 MG TABEC PO SCH (09:00)
[2017-09-13] MEDS: CALCITRIOL 0.25 MCG CAP PO SCH (09:01)
[2017-09-13] MEDS: GABAPENTIN 100 MG CAP PO SCH ×3 (09:01→18:02)
[2017-09-13] MEDS: SODIUM CHLORIDE 0.9% FLUSH 10 ML FLUSH IV FLUSH SCH ×2 (09:03→21:51)
[2017-09-13] MEDS: NICOTINE 7 MG/24 HR PATCH T-DERMAL SCH (09:32)
[2017-09-13] MEDS: buPROPion HCL 75 MG TAB PO SCH (09:32)
--- NOTE | 2017-09-13 11:20 | HHI.PR ---
Subjective Remarks Follow 4th right toe osteomyelitis 09/13/17-patient seen and examined; although complains of toe pain however patient is refusing this AM to have MRI ordered Objective Vitals Vital Signs Date Time Temp Pulse Resp B/P (MAP) Pulse Ox O2 Delivery O2 Flow Rate FiO2 09/13/17 08:00 98.1 75 20 100/53 (69) 95 09/13/17 07:59 83 09/13/17 04:40 97.5 83 18 89/53 (65) 95 09/13/17 04:00 90 09/13/17 00:45 89 09/12/17 23:40 09/12/17 23:30 97.6 86 18 105/60 (75) 94 09/12/17 19:02 93 20 106/56 (73) 93 Room Air 09/12/17 17:45 90 18 93/58 (70) 94 Room Air 09/12/17 15:53 98.0 104 20 128/68 (88) 92 Room Air I/O 09/12/17 09/12/17 09/12/17 09/13/17 09/13/17 09/13/17 07:00 15:00 23:00 07:00 15:00 23:00 Intake Total 450 ml Output Total 0 ml Balance 450 ml Intake Oral 0 ml IV Total 450 ml Output Urine Total 0 ml # Bowel Movements 0 Result Diagram: 09/13/17 0426 09/13/17 0426 Imaging Last Impressions Foot X-Ray 09/12/172026 Signed Impressions: Service Date/Time: Tuesday, September 12, 2017 20:40 - CONCLUSION: Destruction of the fourth proximal and middle phalanges could represent osteomyelitis in the appropriate clinical setting. Juanjo Oleary MD Objective Remarks GENERAL: NAD SKIN: Warm and dry. HEAD: Normocephalic. EYES: No scleral icterus. No injection or drainage. NECK: Supple, trachea midline. No JVD or lymphadenopathy. CARDIOVASCULAR: Regular rate and rhythm without murmurs, gallops, or rubs. RESPIRATORY: Breath sounds equal bilaterally. No accessory muscle use. GASTROINTESTINAL: Abdomen soft, non-tender, nondistended. MUSCULOSKELETAL: Right 1st and 2nd toe amputations. 1 cm ulcer on the dorsal aspect of the right 4th toe, with purulent drainage, foul odor, surrounding erythema/edema extending up to the mid foot, with TTP throughout the third and fourth toes up to the mid foot. BACK: Nontender without obvious deformity. No CVA tenderness. A/P Problem List: (1) Osteomyelitis ICD Code: M86.9 - Osteomyelitis, unspecified Status: Acute (2) ESRD (end stage renal disease) ICD Code: N18.6 - End-stage renal disease Status: Chronic (3) Sepsis ICD Code: A41.9 - Sepsis, unspecified organism Assessment and Plan 57 yrs old female with: Sepsis with Right 4th Toe Osteomyelitis: Patient meets sepsis criteria with leukocytosis WBC 18K and tachycardia HR 104, with suspected source- osteomyelitis. Lactic Acid 1.7. -Right foot xray shows destruction of the 4th proximal and middle phalanges representing osteomyelitis -Currently on IV Zosyn and IV Vanco pending cultures reports as well as Podiatry consult -Right foot MRI pending -Pain control with [place] prn pain scale and IV dilaudid 0.5mg q4h prn breakthrough pain -ID consult PRN ESRD on HD MWF: received dialysis today 09/12. Follows with terrazzo finisher helper Dr. Villagran. -Nephrology consultation pending to resume HD Skin Breakdown of Buttocks: suspect secondary to patient being mostly scooter and bed bound [id number] -Wound care nurse consultation pending Diarrhea: patient reports diarrhea over past few days, 5 episodes yesterday, no recent antibiotic use -Resolved -C diff PCR pending -Lactinex tx Diet-Controlled Diabetes Mellitus: chronic. -HA1c pending -ISS with [facility] monitoring Chronic hypotension -continue Midodrine 10mg tid COPD: chronic, and no exacerbation -continue Albuterol inhaler q6h prn Hyperlipidemia -continue Statin Hypothyroidism -continue Synthroid Hypocalcemia: acute on chronic -continue Calcium carbonate and calcitriol Tobacco Use -counseled on cessation -Nicotine patch DVT Prophylaxis: heparin sq GI Prophylaxis: on protonix Problem Qualifiers (1) Osteomyelitis: Qualified Codes: M86.9 - Osteomyelitis, unspecified Goyo Barney MD Sep 13, 2017 11:19
[2017-09-13] MEDS: INSULIN ASPART SUPPLEMENTAL SCALE SQ SCH ×3 (12:03→21:52)
--- NOTE | 2017-09-13 15:13 | PD.CONS ---
HPI Service Nephrology Consult Requested By Dr. Barney Reason for Consult ESRD management Primary Care Physician No Primary Care Physician History of Present Illness Patient is a 57-year-old female with history of end-stage renal disease, morbid obesity, hypotension and history of diabetes who has hemodialysis on Sunday, Sunday and Sunday, she reports that she is having right foot pain in the fourth toe with open sore wound/ulcer which is not feeling after yesterday's dialysis it got worse and she decided to come to the emergency. Patient goes on dialysis on Sunday, Sunday and Sunday she has a permacath in the right groin which was recently changed due to malfunction, she has multiple failures of previous access placed in both upper extremities and lower extremity. At one point she was tried on peritoneal dialysis but did not do well, she is running out of vascular access, currently has a temporary permacath on the right side. Review of Systems Constitutional: COMPLAINS OF: Fatigue Respiratory: COMPLAINS OF: Shortness of breath Musculoskeletal: COMPLAINS OF: Joint pain, Muscle aches, Stiffness, Joint Swelling, Back pain Neurologic: COMPLAINS OF: Abnormal gait Psychiatric: COMPLAINS OF: Anxiety, Depression Past Family Social History Allergies: Coded Allergies: levofloxacin (Unverified Allergy, Severe, Anaphylaxis, 09/12/17) ANAPHYLAXIS Past Medical History ESRD on HD MWF hypotension on midodrine diet-controlled diabetes CHF COPD hypothyroidism hyperlipidemia anxiety depression hypocalcemia neuropathy Past Surgical History Nonfunctioning AV fistula Cholecystectomy Parathyroidectomy Cataract removal Hysterectomy Appendectomy Right first and second toe amputations Recent right groin permacath placement abdominal peritoneal catheter placement/removed Dental extractions Reported Medications Reported Meds & Active Scripts Active Benadryl Allergy (Diphenhydramine HCl) 25 Mg Cap 25 Mg PO UNSCH PRN 7 Days Flexeril (Cyclobenzaprine HCl) 10 Mg Tab 10 Mg PO BID PRN 30 Days Trazodone (Trazodone HCl) 50 Mg Tab 150 Mg PO HS Rocaltrol (Calcitriol) 0.25 Mcg Cap 0.5 Mcg PO DAILY Calcium Carbonate (Antacid) 500 Mg Chew 1,000 Mg CHEW Q4HR Midodrine 5 Mg Tab 10 Mg PO TID@07,12,17 Aspirin EC (Aspirin) 81 Mg Tabdr 81 Mg PO DAILY Reported Proair Hfa 8.5 GM Inh (Albuterol Sulfate) 90 Mcg/Act Aer 2 Puff INH Q6H PRN 108 mcg/actuation Gabapentin 100 Mg Cap 100 Mg PO TID Sucralfate 1 Gm Tab 1 Gm PO BIDAC on empty stomach Pantoprazole (Pantoprazole Sodium) 40 Mg Tab 40 Mg PO DAILY Levothyroxine (Levothyroxine Sodium) 50 Mcg Tab 50 Mcg PO DAILY Bupropion HCl 75 Mg Tab 75 Mg PO DAILY Atorvastatin (Atorvastatin Calcium) 40 Mg Tab 40 Mg PO HS Active Ordered Medications Current Medications Medications (Trade) Dose Ordered Sig/Mary Grace Route Start Time Stop Time Status Last Admin Pharmacy Profile Note 0 ml @ 0 mls/hr UNSCH OTHER 09/12/17 23:15 Piperacillin Sod/ Tazobactam Sod 50 ml @ 200 mls/hr Q6H IV 09/13/17 00:00 09/13/17 12:02 (NS Flush) 2 ml UNSCH PRN IV FLUSH 09/12/17 23:15 (NS Flush) 2 ml BID IV FLUSH 09/13/17 09:00 09/13/17 09:03 (Zofran Inj) 4 mg Q6H PRN IVP 09/12/17 23:15 (Heparin Inj) 5,000 units Q12H SQ 09/12/17 23:15 09/13/17 11:51 (Tylenol) 650 mg Q6H PRN PO 09/12/17 23:15 ([place] 5-325 Mg) 1 tab Q4H PRN PO 09/12/17 23:15 ([place] 7.5-325 Mg) 1 tab Q4H PRN PO 09/12/17 23:15 09/13/17 06:21 (Narcan Inj) 0.4 mg UNSCH PRN IV PUSH 09/12/17 23:15 (Milk Of Magnesia Liq) 30 ml Q12H PRN PO 09/12/17 23:15 (Senokot) 17.2 mg Q12H PRN PO 09/12/17 23:15 (Dulcolax Supp) 10 mg DAILY PRN RECTAL 09/12/17 23:15 (Lactulose Liq) 30 ml DAILY PRN PO 09/12/17 23:15 (Dilaudid Pf Inj) 0.5 mg Q4H PRN IV PUSH 09/12/17 23:15 (Proair Hfa Inh) 2 puff Q6H PRN INH 09/12/17 23:15 (Ecotrin Ec) 81 mg DAILY PO 09/13/17 09:00 09/13/17 09:00 (Lipitor) 40 mg HS PO 09/12/17 23:15 (Wellbutrin) 75 mg DAILY PO 09/13/17 09:00 09/13/17 09:32 (Rocaltrol) 0.5 mcg DAILY PO 09/13/17 09:00 09/13/17 09:01 (Tums Chew) 1,000 mg Q4HR CHEW 09/13/17 00:00 09/13/17 11:51 (Flexeril) 10 mg BID PRN PO 09/12/17 23:15 (Neurontin) 100 mg TID PO 09/13/17 09:00 09/13/17 12:03 (Synthroid) 50 mcg DAILY@0700 PO 09/13/17 07:00 09/13/17 06:04 (Proamatine) 10 mg TID@07,12,17 PO 09/13/17 07:00 09/13/17 11:52 (Protonix) 40 mg DAILY PO 09/13/17 09:00 09/13/17 09:00 (Desyrel) 150 mg HS PO 09/12/17 23:15 (Lactinex) 1 tab TID PO 09/13/17 09:00 09/13/17 12:03 (Habitrol 7 Mg Patch.24 Hr) 1 patch DAILY T-DERMAL 09/13/17 09:00 09/13/17 09:32 Miscellaneous Information 1 DAILY T-DERMAL 09/13/17 09:00 (D50w (Vial) Inj) 50 ml UNSCH PRN IV PUSH 09/13/17 11:30 (Glucagon Inj) 1 mg UNSCH PRN OTHER 09/13/17 11:30 (NovoLOG SUPPLEMENTAL SCALE) 1 ACHS SLIDING SCALE SQ 09/13/17 12:00 09/13/17 12:03 Family History Noncontributory Social History Denies smoking or alcohol use Physical Exam Vital Signs Vital Signs Date Time Temp Pulse Resp B/P (MAP) Pulse Ox O2 Delivery O2 Flow Rate FiO2 09/13/17 12:00 97.7 77 20 111/56 (74) 90 09/13/17 11:59 81 09/13/17 08:00 98.1 75 20 100/53 (69) 95 09/13/17 07:59 83 09/13/17 04:40 97.5 83 18 89/53 (65) 95 09/13/17 04:00 90 09/13/17 00:45 89 09/12/17 23:40 09/12/17 23:30 97.6 86 18 105/60 (75) 94 09/12/17 19:02 93 20 106/56 (73) 93 Room Air 09/12/17 17:45 90 18 93/58 (70) 94 Room Air 09/12/17 15:53 98.0 104 20 128/68 (88) 92 Room Air Physical Exam GENERAL: Well-nourished, well-developed patient. SKIN: Warm and dry. HEAD: Normocephalic. EYES: No scleral icterus. No injection or drainage. NECK: Supple, trachea midline. No JVD or lymphadenopathy. CARDIOVASCULAR: Regular rate and rhythm without murmurs, gallops, or rubs. RESPIRATORY: Breath sounds equal bilaterally. No accessory muscle use. GASTROINTESTINAL: Abdomen soft, non-tender, nondistended. EXTREMITIES: No cyanosis, mild edema. Right foot ulcer NEUROLOGICAL: Awake, alert, and oriented x 3. Non-focal. Laboratory Laboratory Tests Test 09/12/17 16:10 09/12/17 19:30 09/13/17 04:26 White Blood Count 18.2 13.5 Red Blood Count 4.47 4.57 Hemoglobin 12.5 13.3 Hematocrit 39.7 41.4 Mean Corpuscular Volume 88.9 90.6 Mean Corpuscular Hemoglobin 28.0 29.0 Mean Corpuscular Hemoglobin Concent 31.5 32.0 Red Cell Distribution Width 16.1 16.3 Platelet Count 324 321 Mean Platelet Volume 7.4 7.7 Neutrophils (%) (Auto) 87.7 87.1 Lymphocytes (%) (Auto) 3.6 3.5 Monocytes (%) (Auto) 4.4 5.4 Eosinophils (%) (Auto) 3.9 3.9 Basophils (%) (Auto) 0.4 0.1 Neutrophils # (Auto) 16.0 11.8 Lymphocytes # (Auto) 0.7 0.5 Monocytes # (Auto) 0.8 0.7 Eosinophils # (Auto) 0.7 0.5 Basophils # (Auto) 0.1 0.0 CBC Comment DIFF FINAL DIFF FINAL Differential Comment Blood Urea Nitrogen 22 32 Creatinine 4.81 6.00 Random Glucose 132 166 Total Protein 9.2 9.2 Calcium Level 7.3 6.8 Sodium Level 135 135 Potassium Level 3.3 4.1 Chloride Level 98 98 Carbon Dioxide Level 25.9 27.4 Anion Gap 11 10 Estimat Glomerular Filtration Rate 11 9 Protein Corrected Calcium Lactic Acid Level 1.7 Date/Time Source Procedure Growth Status 09/12/17 19:50 Blood Peripheral Aerobic Blood Culture - Preliminary NO GROWTH IN 1 DAY Resulted 09/12/17 19:50 Blood Peripheral Anaerobic Blood Culture - Preliminary NO GROWTH IN 1 DAY Resulted Result Diagram: 09/13/1742509/13/17425 Imaging Last Impressions Foot X-Ray 09/12/172026 Signed Impressions: Service Date/Time: Tuesday, September 12, 2017 20:40 - CONCLUSION: Destruction of the fourth proximal and middle phalanges could represent osteomyelitis in the appropriate clinical setting. Juanjo Oleary MD Assessment and Plan Problem List: (1) ESRD (end stage renal disease) ICD Codes: N18.6 - End-stage renal disease Status: Chronic Plan: Patient is on hemodialysis and this will be continued on Sunday, Sunday and Sunday continue supportive care Orders given (2) Osteomyelitis ICD Codes: M86.9 - Osteomyelitis, unspecified Status: Acute Plan: Await MRI May require surgical intervention (3) Morbid obesity ICD Codes: E66.01 - Morbid (severe) obesity due to excess calories Status: Chronic (4) Hypotension ICD Codes: I95.9 - Hypotension Status: Resolved Plan: On midodrine Problem Qualifiers (1) Osteomyelitis: Qualified Codes: M86.9 - Osteomyelitis, unspecified Frank Villagran MD Sep 13, 2017 15:13
[2017-09-13] MEDS ORDERED: SODIUM CHLOR 0.9% 1000 ML INJ 1,000 ML OTHER PRN ×2 (15:14)
[2017-09-13] MEDS ORDERED: SODIUM CHLOR 0.9% 1000 ML INJ 1,000 ML IV PRN (15:14)
[2017-09-13] MEDS ORDERED: ACETAMINOPHEN 325 MG TAB PO PRN (15:15)
[2017-09-13] MEDS ORDERED: SODIUM CHLORIDE 0.9% FLUSH 10 ML FLUSH IV FLUSH PRN (15:15)
[2017-09-13] MEDS ORDERED: MANNITOL 12.5 GM/50 ML VIAL IV PRN (15:15)
[2017-09-13] MEDS ORDERED: ONDANSETRON HCL 4 MG/2 ML VIAL IV PUSH PRN (15:15)
[2017-09-13] MEDS ORDERED: diphenhydrAMINE HCL 25 MG CAP PO PRN (15:15)
[2017-09-13] MEDS ORDERED: cloNIDine HCL 0.1 MG TAB PO PRN (15:15)
[2017-09-13] MEDS ORDERED: NITROGLYCERIN 0.4 MG SL 25 TABS/BTL SL PRN (15:15)
[2017-09-13] MEDS ORDERED: GELATIN 12 MM/7 MM FOAM TOP PRN (15:15)
[2017-09-13] MEDS ORDERED: HEPARIN SODIUM - IV 10,000 UNITS/10 ML VIAL IV FLUSH PRN (15:15)
[2017-09-13 15:55] LABS: HEMOGLOBIN A1C 7.3 % (4.3-6.0)
--- NOTE | 2017-09-13 16:34 | PD.WCN.NOT ---
Wound Consult Description: Wound consult ordered by Chinyere DE LEON for skin breakdown of buttocks Communicated with: [facility] [address] [place] [address], Recommendation: 1) Cleanse bilateral posterior thighs with warm water and soap ,rinse and dry 2) Apply 50/50 mix of Silvadene and Lidocaine 4% to posterior thighs BID 3) Refer to podiatry recommendations for below knee wound care Additional Information: Patient was seen today on [address] [place] [address] by chief writer and [facility] [address] [place] [address]. Assessment finding patient has bilateral chaffing (friction burn) to posterior thighs.Tender to touch no drainage or odor noted.Cleansed with normal saline Calazime applied at this time till Silvadene and lidocaine available. [facility] will apply when available.Encouraged patient to reposition to sides for comfort and offloading states shes unable to at this time she cant breath on side.Podiatry will be writing orders for wounds below the knee. Lillian Mclean [facility] Sep 13, 2017 16:34
[2017-09-13] MEDS: ATORVASTATIN 40 MG TAB PO SCH (21:50)
[2017-09-13] MEDS: traZODone HCL 50 MG TAB PO SCH (21:51)
[2017-09-13] MEDS: HYDROmorphone HCL PF 2 MG/ML VIAL IV PUSH PRN (21:53)
[2017-09-14] VITALS (12 sets, daily range): BP systolic 87–104; BP diastolic 43–60; PULSE 70–113; RESP 18–21; TEMP 97.1–98; O2SAT 93–98
[2017-09-14] MEDS: ONDANSETRON HCL 4 MG/2 ML VIAL IVP PRN ×2 (00:57→21:37)
[2017-09-14] MEDS: LIDOCAINE 4% CREAM 5 GM TUBE TOPICAL SCH ×3 (00:59→21:38)
[2017-09-14] MEDS: CALCIUM CARBONATE 500 MG CHEWABLE TAB CHEW SCH ×6 (01:00→21:37)
[2017-09-14] MEDS: HEPARIN SODIUM - SQ 10,000 UNITS/ML VIAL SQ SCH ×2 (01:00→14:00)
[2017-09-14] MEDS: SILVER SULFADIAZINE 1% CR 50 GM JAR TOPICAL SCH ×3 (01:00→21:38)
[2017-09-14] MEDS: PIPERACIL-TAZO 2.25 GM PREMIX 50 ML IV SCH ×4 (01:01→18:35)
[2017-09-14] MEDS: MIDODRINE 5 MG TAB PO SCH ×3 (05:58→16:37)
[2017-09-14] MEDS: LEVOTHYROXINE SODIUM 50 MCG TAB PO SCH (05:58)
[2017-09-14] MEDS: INSULIN ASPART SUPPLEMENTAL SCALE SQ SCH ×4 (08:00→21:38)
[2017-09-14 08:09] LABS: AUTOMATED NEUTROPHIL # 10.5 TH/MM3 (1.8-7.7); BASOPHIL % 0.3 % (0.0-2.0); EOSINOPHIL # 0.7 TH/MM3 (0-0.4); EOSINOPHIL % 5.5 % (0.0-4.0); HEMATOCRIT 40.6 % (35.0-46.0); HEMOGLOBIN 12.8 GM/DL (11.6-15.3); LYMPH % 4.5 % (9.0-44.0); LYMPHOCYTE # 0.6 TH/MM3 (1.0-4.8); MEAN CORPUSCULAR HEMOGLOBIN 28.3 PG (27.0-34.0); MEAN CORPUSCULAR HGB CONC 31.5 % (32.0-36.0); MEAN PLATELET VOLUME 7.3 FL (7.0-11.0); MONO % 6.5 % (0.0-8.0); MONOCYTE # 0.8 TH/MM3 (0-0.9); NEUT % 83.2 % (16.0-70.0); PLATELET COUNT 323 TH/MM3 (150-450); RED BLOOD COUNT 4.51 MIL/MM3 (4.00-5.30); RED CELL DISTRIBUTION WIDTH 16.6 % (11.6-17.2); WHITE BLOOD COUNT 12.6 TH/MM3 (4.0-11.0)
--- NOTE | 2017-09-14 08:13 | MB ---
cc: TAMEKA BRAR DATE OF CONSULTATION 09/14/2017 CHIEF COMPLAINT Right foot 4th digit osteomyelitis. HISTORY OF PRESENT ILLNESS Ms. Jenkins is a 57-year-old uncontrolled diabetic patient on dialysis. She states that she has had a wound on her toe for somewhere between six and eight months, but for the last two months she has had worsening pain and drainage. She states that it has been limiting her ambulation over the last 1-2 months. She states that she had the right 1st and 2nd digits amputated approximately 10 years ago but has not had any foot complications since that time. She denies any current nausea, vomiting, fever, headaches or chills. PAST MEDICAL HISTORY 1. ESRD on hemodialysis Sunday, Sunday, Sunday. 2. Hypertension. 3. Diabetes. 4. CHF. 5. COPD. 6. Hypothyroidism. 7. Hyperlipidemia. 8. Anxiety. 9. Depression. 10.Hypocalcemia. 11.Neuropathy. PAST SURGICAL HISTORY 1. Nonfunctioning AV fistula. 2. Cholecystectomy. 3. Parathyroidectomy. 4. Cataract removal. 5. Hysterectomy. 6. Appendectomy. 7. Right 1st and 2nd toe amputation. 8. Right groin Perma-Cath placement. 9. Abdominal peritoneal catheter placement, which was then removed. 10.Dental extractions. MEDICATIONS Please see list. ALLERGIES LEVOFLOXACIN. FAMILY HISTORY Noncontributory. SOCIAL HISTORY The patient smokes approximately a quarter pack of cigarettes per day since age 18. Occasional alcohol use. No alcohol or drug abuse. VITAL SIGNS Temperature 97.6, T-max 98.1, pulse 85, respiratory rate 18, blood pressure 90/50, pulse ox 95% O2 on room air. LABORATORY White count 13.5 down from 18.2, hemoglobin 13.3, hematocrit 41.4, platelets 321. Sodium 135, potassium 4.1, chloride 98, carbon dioxide 27.4, BUN 32, creatinine 6.0, random glucose 166, A1c 7.3. Blood cultures are negative x1 day. IMAGING Foot x-rays show absence of the 1st and 2nd digits with obvious signs of bony erosion at the proximal and middle phalanges of the 4th digit. Calcifications are also noted in the forefoot. PHYSICAL EXAMINATION On physical exam the patient has nonpalpable DP and PT pulses. Capillary fill time is within 30 seconds. Dry skin. Without the appearance of well-perfusion. Right foot with healed 1st and 2nd digit amputations. The 4th toe has a small dorsal wound, 5 mm x 5 mm, deep probing to bone with sanguineous purulent drainage. No erythema. No malodor. ASSESSMENT AND PLAN Right foot 4th digit osteomyelitis. PLAN 1. The patient is in need of a digital amputation given the extensive erosion noted on radiographs; however, her circulation is severely compromised and needs to be assessed prior to any surgical intervention for the toe. A vascular consult was placed. 2. Will plan for amputation once the level of viability is known. 3. The patient will be given IV antibiotics. 4. Wound care orders placed for nursing staff. 5. Will continue to follow the patient while in house and intervene when appropriate. Thank you for this consultation. Tameka GATES/KAILA /7:09 AM /7:18 AM TIGRE
--- NOTE | 2017-09-14 08:26 | PD.VS.CON ---
History of Present Illness Chief Complaint: R toe gangrene Consult Requested by: Dr. Wolf History of Present Illness 57 yo minimally ambulatory female with ESRD and R toe gangrene and chronic osteomyelitis. Adm for R foot pain. Denies f/c. Asked to eval perfusion prior to podiatric procedure. Pt uses let for transfers but gets around mostly with motorized scooter. Past/Family/Social History Past Medical History ESRD - HD via R groin tunneled catheter at present DM CHF COPD HTN XOL Past Surgical History parathyroidectomy PD catheter insertion/removal Multiple B UE AVF, all failed Appy Becky R 1st/2nd toe amps Social History ERSD, from [place] Family History [place] Home Medications Active Scripts Diphenhydramine HCl (Benadryl Allergy) 25 Mg Cap, 25 MG PO UNSCH Y for for hives /itching/anaphylaxis for 7 Days, CAP Prov:Gabe Arora 06/18/17 Cyclobenzaprine (Flexeril) 10 Mg Tab, 10 MG PO BID Y for MUSCLE SPASM for 30 Days, #60 TAB 0 Refills Prov:Gabe Arora 06/18/17 Trazodone (Trazodone) 50 Mg Tab, 150 MG PO HS for Insomnia, #30 TAB Prov:Tami Owens 04/09/17 Calcitriol (Rocaltrol) 0.25 Mcg Cap, 0.5 MCG PO DAILY for hypocalcemia, #30 CAP Prov:Riki Knight MD 12/26/16 Calcium Carbonate (Antacid) (Calcium Carbonate (Antacid)) 500 Mg Chew, 1000 MG CHEW Q4HR for Calcium Supplement, #120 EA Prov:Harmony Arroyo PA-C 10/07/16 Midodrine (Midodrine) 5 Mg Tab, 10 MG PO TID@07,12,17 for VS, #30 TAB Prov:Jovanny Sawyer MD 09/15/16 Aspirin (Aspirin EC) 81 Mg Tabdr, 81 MG PO DAILY for Prevent Blood Clot, #30 TAB Prov:Harmony Arroyo PA-C 08/28/16 Reported Medications Albuterol 8.5 GM Inh (Proair Hfa 8.5 GM Inh) 90 Mcg/Act Aer, 2 PUFF INH Q6H Y for SHORTNESS OF BREATH, #1 INHALER 0 Refills 108 mcg/actuation 04/04/17 Gabapentin (Gabapentin) 100 Mg Cap, 100 MG PO TID, #90 CAP 0 Refills 04/04/17 Sucralfate (Sucralfate) 1 Gm Tab, 1 GM PO BIDAC for Duodenal ulcer, #120 TAB 0 Refills on empty stomach 08/26/16 Pantoprazole (Pantoprazole) 40 Mg Tab, 40 MG PO DAILY for Reflux, #30 TAB 0 Refills 08/26/16 Levothyroxine (Levothyroxine) 50 Mcg Tab, 50 MCG PO DAILY for Thyroid, #30 TAB 0 Refills 08/26/16 Bupropion HCl (Bupropion HCl) 75 Mg Tab, 75 MG PO DAILY for Control Depression, TAB 0 Refills 08/26/16 Atorvastatin (Atorvastatin) 40 Mg Tab, 40 MG PO HS for Cholesterol Management, # 30 TAB 0 Refills 08/26/16 Discontinued Reported Medications Ibuprofen (Ibuprofen) 800 Mg Tab, 800 MG PO TID for Pain Management, TAB 0 Refills 06/18/17 Coded Allergies: levofloxacin (Unverified Allergy, Severe, Anaphylaxis, 09/12/17) ANAPHYLAXIS Review of Systems Constitutional: COMPLAINS OF: Fatigue, DENIES: Fever, Chills Respiratory: COMPLAINS OF: Shortness of breath Cardiovascular: COMPLAINS OF: Dyspnea on Exertion, Lower Extremity Edema Neurologic: COMPLAINS OF: Abnormal gait Physical Exam Vitals/I&O Date Time Temp Pulse Resp B/P (MAP) Pulse Ox O2 Delivery O2 Flow Rate FiO2 09/14/17 04:16 97.6 85 18 90/50 (63) 95 09/14/17 04:00 86 09/14/17 00:00 87 09/13/17 23:48 98.0 90 18 91/53 (66) 92 09/13/17 20:32 97.6 83 18 122/58 (79) 96 09/13/17 20:00 80 09/13/17 16:02 77 09/13/17 16:00 97.9 84 20 82/59 (67) 93 09/13/17 12:00 97.7 77 20 111/56 (74) 90 09/13/17 11:59 81 09/14/17 09/14/17 09/14/17 07:00 15:00 23:00 Intake Total 475 ml Output Total 0 ml Balance 475 ml Neuro: pleasant, conversant, SALDANA HEENT: anicteric sclera; trachea midline Heart: reg rate Lungs: distant BS Abdomen: Obese, NT Vascular: palpable DP bilaterally Extremities: dry gangrene remaining digits R LE Laboratory Tests Test 09/14/17 07:26 09/14/17 07:41 White Blood Count 12.6 Red Blood Count 4.51 Hemoglobin 12.8 Hematocrit 40.6 Mean Corpuscular Volume 90.0 Mean Corpuscular Hemoglobin 28.3 Mean Corpuscular Hemoglobin Concent 31.5 Red Cell Distribution Width 16.6 Platelet Count 323 Mean Platelet Volume 7.3 Neutrophils (%) (Auto) 83.2 Lymphocytes (%) (Auto) 4.5 Monocytes (%) (Auto) 6.5 Eosinophils (%) (Auto) 5.5 Basophils (%) (Auto) 0.3 Neutrophils # (Auto) 10.5 Lymphocytes # (Auto) 0.6 Monocytes # (Auto) 0.8 Eosinophils # (Auto) 0.7 Basophils # (Auto) 0.0 CBC Comment DIFF FINAL Differential Comment Date/Time Source Procedure Growth Status 09/12/17 19:50 Blood Peripheral Aerobic Blood Culture - Preliminary NO GROWTH IN 1 DAY Resulted 09/12/17 19:50 Blood Peripheral Anaerobic Blood Culture - Preliminary NO GROWTH IN 1 DAY Resulted Last 48 hours Impressions Foot X-Ray 09/12/172026 Signed Impressions: Service Date/Time: Tuesday, September 12, 2017 20:40 - CONCLUSION: Destruction of the fourth proximal and middle phalanges could represent osteomyelitis in the appropriate clinical setting. Juanjo Oleary MD Assessment and Plan Plan Although certainly she has some PAD, she does have palpable DP bilaterally and should heal any podiatry procedure from a perfusion standpoint. Will f/u ABIs (being done this morning) Need thorough w/u for HD access, likely to be done as outpatient. Options likely limited to UE given obesity. However, likely to have central vein occlusion. Will arrange f/u. Gaetano Dougherty MD FACS VI doughnut icer [facility] - Heart and Vascular Surgery at [facility] [phone] Gaetano Dougherty MD Sep 14, 2017 08:26
[2017-09-14 08:41] LABS: ALBUMIN 2.3 GM/DL (3.4-5.0); ALKALINE PHOSPHATASE 127 U/L (45-117); ALT (GPT) 9 U/L (10-53); AST (GOT) 11 U/L (15-37); BICARBONATE 26.4 MEQ/L (21.0-32.0); BLOOD UREA NITROGEN 53 MG/DL (7-18); CHLORIDE 98 MEQ/L (98-107); CREATININE 8.18 MG/DL (0.50-1.00); GLOMERULAR FILTRATION RATE 6 ML/MIN (>89); GLUCOSE,RANDOM 139 MG/DL (74-106); RANDOM VANCOMYCIN 20.7 COMMENT; SODIUM (NA) 135 MEQ/L (136-145); TOTAL BILIRUBIN ADULT 0.3 MG/DL (0.2-1.0); TOTAL PROTEIN 8.4 GM/DL (6.4-8.2)
[2017-09-14] MEDS: PANTOPRAZOLE SOD 40 MG DELAYED RELEASE TAB PO SCH (08:50)
[2017-09-14] MEDS: buPROPion HCL 75 MG TAB PO SCH (08:50)
[2017-09-14] MEDS: SODIUM CHLORIDE 0.9% FLUSH 10 ML FLUSH IV FLUSH SCH ×2 (08:50→21:39)
[2017-09-14] MEDS: LACTOBACILLUS ACIDOPHILUS TAB PO SCH ×3 (08:50→18:42)
[2017-09-14] MEDS: GABAPENTIN 100 MG CAP PO SCH ×3 (08:51→18:35)
[2017-09-14] MEDS: REMOVE OLD PATCH T-DERMAL SCH (08:51)
[2017-09-14] MEDS: NICOTINE 7 MG/24 HR PATCH T-DERMAL SCH (08:51)
[2017-09-14] MEDS: ASPIRIN EC 81 MG TABEC PO SCH (08:51)
[2017-09-14] MEDS: CALCITRIOL 0.25 MCG CAP PO SCH (08:51)
--- NOTE | 2017-09-14 10:36 | HHI.NPPN ---
Subjective History of Present Illness ESRD with foot osteomyelitis Additional Remarks seen during dialysis today Review of Systems General Constitutional: Fatigue Musculoskeletal MS: Pain/Stiffness Objective Data Data Vital Signs Date Time Temp Pulse Resp B/P (MAP) Pulse Ox O2 Delivery O2 Flow Rate FiO2 09/14/17 08:00 97.5 79 21 90/60 (70) 93 09/14/17 08:00 77 09/14/17 04:16 97.6 85 18 90/50 (63) 95 09/14/17 04:00 86 09/14/17 00:00 87 09/13/17 23:48 98.0 90 18 91/53 (66) 92 09/13/17 20:32 97.6 83 18 122/58 (79) 96 09/13/17 20:00 80 09/13/17 16:02 77 09/13/17 16:00 97.9 84 20 82/59 (67) 93 09/13/17 12:00 97.7 77 20 111/56 (74) 90 09/13/17 11:59 81 -: 09/14/17 0726 09/14/17 0741 Physical Exam General Appearance: Well Developed, Obese Neck Neck Exam: Neck Supple Pulmonary Resp Exam: Clear Bilaterally, Breath Sounds Equal Cardiology CV Exam: Regular, Normal Sinus Rhythm Gastrointestinal/Abdomen GI Exam: Soft, Non-Tender, Bowel Sounds Present Extremeties Extremities Exam: Moderate Edema Assessment/Plan Problem List: (1) ESRD (end stage renal disease) ICD Codes: N18.6 - End-stage renal disease Status: Chronic Plan: Patient is on hemodialysis and this will be continued on Sunday, Sunday and Sunday she is seen during dialysis today UD minimal has low BP and had N/V pt with osteo of foot (2) Osteomyelitis ICD Codes: M86.9 - Osteomyelitis, unspecified Status: Acute Plan: May require surgical intervention (3) Morbid obesity ICD Codes: E66.01 - Morbid (severe) obesity due to excess calories Status: Chronic (4) Hypotension ICD Codes: I95.9 - Hypotension Status: Resolved Plan: On midodrine Problem Qualifiers (1) Osteomyelitis: Qualified Codes: M86.9 - Osteomyelitis, unspecified Frank Villagran MD Sep 14, 2017 10:36
[2017-09-14] MEDS: GENTAMICIN SULFATE (DIALYSIS USE ONLY) 20 MG/2 ML VIAL OTHER PRN (12:00)
--- NOTE | 2017-09-14 13:03 | RADRPT ---
EXAM DATE/TIME: 09/14/2017 07:53 [place] COMPARISON: No previous studies available for comparison. INDICATIONS : Osteomyelitis, Diabetes mellitus, neuropathy, hyperlipidemia, dialysis TECHNIQUE: Four-cuff ankle and brachial pressures were obtained. Pulse cuff waveform tracings of the ankles were recorded, and ankle-brachial indices were calculated. PRESSURES (mmHg): Brachial (arm): Right N/A Left 102 Ankle: Right 141 Left 83 CALVIN: Right 1.38 Left 0.81 PULSED CUFF WAVEFORMS: Demonstrate normal amplitude bilaterally. CONCLUSION: Findings of mild disease on the left side. CT angiography of the abdominal aorta and lower extremitie s is recommended for further evaluation if clinically indicated. Yinka Peterson MD on September 14, 2017 at 13:00 Board Certified Radiologist. This report was verified electronically.
[2017-09-14] MEDS: ACETAMINOPHEN/HYDROcodone 325 MG/7.5 MG TAB PO PRN ×2 (13:56→18:35)
[2017-09-14] MEDS: BACITRACIN OINT 0.9 GM PKT TOPICAL SCH (13:57)
--- NOTE | 2017-09-14 14:09 | HHI.PR ---
Subjective Remarks Follow 4th right toe osteomyelitis 09/13/17-patient seen and examined; although complains of toe pain however patient is refusing this AM to have MRI ordered 09/14/17-patient seen and examined, she had hemodialysis this morning, was seen by podiatry and vascular surgery. Currently afebrile. Objective Vitals Vital Signs Date Time Temp Pulse Resp B/P (MAP) Pulse Ox O2 Delivery O2 Flow Rate FiO2 09/14/17 12:00 96 09/14/17 08:00 97.5 79 21 90/60 (70) 93 09/14/17 08:00 77 09/14/17 04:16 97.6 85 18 90/50 (63) 95 09/14/17 04:00 86 09/14/17 00:00 87 09/13/17 23:48 98.0 90 18 91/53 (66) 92 09/13/17 20:32 97.6 83 18 122/58 (79) 96 09/13/17 20:00 80 09/13/17 16:02 77 09/13/17 16:00 97.9 84 20 82/59 (67) 93 I/O 09/13/17 09/13/17 09/13/17 09/14/17 09/14/17 09/14/17 07:00 15:00 23:00 07:00 15:00 23:00 Intake Total 450 ml 530 ml 50 ml 475 ml Output Total 0 ml 0 ml 1000 ml Balance 450 ml 530 ml 50 ml 475 ml -1000 ml Intake Oral 0 ml 480 ml 475 ml IV Total 450 ml 50 ml 50 ml Output Urine Total 0 ml 0 ml Hemodialysis 1000 ml # Voids 0 # Bowel Movements 0 0 0 Result Diagram: 09/14/17 0726 09/14/17 0741 Objective Remarks GENERAL: NAD SKIN: Warm and dry. HEAD: Normocephalic. EYES: No scleral icterus. No injection or drainage. NECK: Supple, trachea midline. No JVD or lymphadenopathy. CARDIOVASCULAR: Regular rate and rhythm without murmurs, gallops, or rubs. RESPIRATORY: Breath sounds equal bilaterally. No accessory muscle use. GASTROINTESTINAL: Abdomen soft, non-tender, nondistended. MUSCULOSKELETAL: Right 1st and 2nd toe amputations. 1 cm ulcer on the dorsal aspect of the right 4th toe, with purulent drainage, foul odor, surrounding erythema/edema extending up to the mid foot, with TTP throughout the third and fourth toes up to the mid foot. BACK: Nontender without obvious deformity. No CVA tenderness. A/P Problem List: (1) Osteomyelitis ICD Code: M86.9 - Osteomyelitis, unspecified Status: Acute (2) ESRD (end stage renal disease) ICD Code: N18.6 - End-stage renal disease Status: Chronic (3) Sepsis ICD Code: A41.9 - Sepsis, unspecified organism Assessment and Plan 57 yrs old female with: Sepsis with Right 4th Toe Osteomyelitis: Patient meets sepsis criteria with leukocytosis WBC 18K and tachycardia HR 104, with suspected source- osteomyelitis. Lactic Acid 1.7. -Right foot xray shows destruction of the 4th proximal and middle phalanges representing osteomyelitis -Currently on IV Zosyn and IV Vanco pending cultures reports -Appreciate input from podiatry and plan for digital amputation 09/15/16 -Pain control with [place] prn pain scale and IV dilaudid 0.5mg q4h prn breakthrough pain -ID consult PRN Peripheral artery disease CALVIN pending Appreciate input from vascular surgery, and will follow patient outpatient for further workup ESRD on HD MWF: received dialysis today 09/12. Follows with clock and watch assembler Dr. Villagran. -Nephrology appreciated, continue with hemodialysis Sunday Skin Breakdown of Buttocks: suspect secondary to patient being mostly scooter and bed bound [id number] -Wound care nurse input appreciated Diarrhea: patient reports diarrhea over past few days -Resolved -C diff PCR p negative -Lactinex tx Diet-Controlled Diabetes Mellitus: chronic. -HA1c 7.3 -ISS with [facility] monitoring Chronic hypotension -continue Midodrine 10mg tid COPD: chronic, and no exacerbation -continue Albuterol inhaler q6h prn Hyperlipidemia -continue Statin Hypothyroidism -continue Synthroid Hypocalcemia: acute on chronic -continue Calcium carbonate and calcitriol Tobacco Use -counseled on cessation -Nicotine patch DVT Prophylaxis: heparin sq GI Prophylaxis: on protonix Problem Qualifiers (1) Osteomyelitis: Qualified Codes: M86.9 - Osteomyelitis, unspecified Goyo Barney MD Sep 14, 2017 14:09
[2017-09-14] MEDS ORDERED: VANCOMYCIN 1,500 MG/NS 500 ML IV ONE ×2 (17:00)
[2017-09-14 17:48] LABS: HEMOGLOBIN A1C 7.3 % (4.3-6.0)
[2017-09-14] MEDS: traZODone HCL 50 MG TAB PO SCH (21:36)
[2017-09-14] MEDS: ATORVASTATIN 40 MG TAB PO SCH (21:37)
--- NOTE | 2017-09-14 23:37 | EKG ---
Date Performed: 09/12/2017 Time Performed: 19:09:01 PTAGE: 57 years EKG: Sinus rhythm LOW QRS VOLTAGE IN PRECORDIAL LEADS MODERATE ST DEPRESSION ABNORMAL ECG NO PREVIOUS TRACING DOCTOR: Yara Wise Interpretating Date/Time 09/14/2017 23:36:24
[2017-09-15] VITALS (9 sets, daily range): BP systolic 76–138; BP diastolic 49–75; PULSE 72–93; RESP 17–18; TEMP 97.1–98.4; O2SAT 93–97
[2017-09-15] MEDS: HEPARIN SODIUM - SQ 10,000 UNITS/ML VIAL SQ SCH ×3 (01:25→23:46)
[2017-09-15] MEDS: CALCIUM CARBONATE 500 MG CHEWABLE TAB CHEW SCH ×7 (01:25→23:46)
[2017-09-15] MEDS: PIPERACIL-TAZO 2.25 GM PREMIX 50 ML IV SCH ×5 (01:25→23:46)
[2017-09-15] MEDS: ACETAMINOPHEN/HYDROcodone 325 MG/7.5 MG TAB PO PRN ×2 (01:26→13:01)
[2017-09-15] MEDS: LEVOTHYROXINE SODIUM 50 MCG TAB PO SCH (05:42)
[2017-09-15] MEDS: MIDODRINE 5 MG TAB PO SCH ×3 (05:42→17:57)
[2017-09-15] MEDS ORDERED: LACTATED RINGER'S 1000 ML IV PRN (07:00)
[2017-09-15] MEDS ORDERED: SODIUM CHLORID 0.9% 500 ML IV PRN (07:00)
[2017-09-15] MEDS ORDERED: POVIDONE IODINE 5% (ANTISEPSIS KIT) 4 APPLICATIONS EACH NARE PRN (07:00)
[2017-09-15] MEDS ORDERED: CHLORHEXIDINE GLUCONATE 2 % 1 PACK (2 CLOTHS) TOPICAL PRN (07:00)
[2017-09-15] MEDS: INSULIN ASPART SUPPLEMENTAL SCALE SQ SCH ×4 (08:00→21:20)
[2017-09-15] MEDS: ASPIRIN EC 81 MG TABEC PO SCH (09:00)
[2017-09-15] MEDS: NICOTINE 7 MG/24 HR PATCH T-DERMAL SCH (09:38)
[2017-09-15] MEDS: GABAPENTIN 100 MG CAP PO SCH ×3 (09:39→17:57)
[2017-09-15] MEDS: CALCITRIOL 0.25 MCG CAP PO SCH (09:39)
[2017-09-15] MEDS: PANTOPRAZOLE SOD 40 MG DELAYED RELEASE TAB PO SCH (09:39)
[2017-09-15] MEDS: SODIUM CHLORIDE 0.9% FLUSH 10 ML FLUSH IV FLUSH SCH ×2 (09:39→21:17)
[2017-09-15] MEDS: REMOVE OLD PATCH T-DERMAL SCH (09:41)
[2017-09-15] MEDS: LACTOBACILLUS ACIDOPHILUS TAB PO SCH ×3 (09:44→17:57)
[2017-09-15] MEDS: LIDOCAINE 4% CREAM 5 GM TUBE TOPICAL SCH ×2 (09:58→21:20)
[2017-09-15] MEDS: BACITRACIN OINT 0.9 GM PKT TOPICAL SCH (09:58)
[2017-09-15] MEDS: SILVER SULFADIAZINE 1% CR 50 GM JAR TOPICAL SCH ×2 (09:59→21:20)
[2017-09-15] MEDS: buPROPion HCL 75 MG TAB PO SCH (11:02)
--- NOTE | 2017-09-15 11:17 | HHI.PR ---
Subjective Remarks Follow 4th right toe osteomyelitis 09/13/17-patient seen and examined; although complains of toe pain however patient is refusing this AM to have MRI ordered 09/14/17-patient seen and examined, she had hemodialysis this morning, was seen by podiatry and vascular surgery. Currently afebrile. 09/15/17-patient seen and examined, currently nothing by mouth pending amputation of fourth right toe. No acute event overnight. Objective Vitals Vital Signs Date Time Temp Pulse Resp B/P (MAP) Pulse Ox O2 Delivery O2 Flow Rate FiO2 09/15/17 08:40 90/68 (75) 09/15/17 08:00 97.5 79 18 76/51 (59) 95 09/15/17 04:07 97.1 83 18 85/49 (61) 97 09/15/17 04:00 85 09/15/17 00:13 102/54 (70) 09/15/17 00:00 72 09/14/17 23:37 97.1 74 18 92/43 (59) 98 09/14/17 20:39 98.0 70 18 104/58 (73) 98 09/14/17 20:00 77 09/14/17 16:00 92 09/14/17 15:35 95 Nasal Cannula 2.00 09/14/17 14:00 97.9 91 20 87/56 (66) 93 09/14/17 13:37 97.7 113 21 94/52 (66) 95 09/14/17 12:00 96 I/O 09/14/17 09/14/17 09/14/17 09/15/17 09/15/17 09/15/17 07:00 15:00 23:00 07:00 15:00 23:00 Intake Total 475 ml 50 ml 1105 ml 480 ml Output Total 0 ml 1000 ml 0 ml Balance 475 ml -950 ml 1105 ml 480 ml Intake Oral 475 ml 540 ml 480 ml IV Total 50 ml 565 ml Output Urine Total 0 ml 0 ml Hemodialysis 1000 ml # Voids 0 # Bowel Movements 0 0 0 Result Diagram: 09/14/17 0726 09/14/17 0741 Imaging Last Impressions Foot X-Ray 09/12/172026 Signed Impressions: Service Date/Time: Tuesday, September 12, 2017 20:40 - CONCLUSION: Destruction of the fourth proximal and middle phalanges could represent osteomyelitis in the appropriate clinical setting. Juanjo Oleary MD Objective Remarks GENERAL: NAD SKIN: Warm and dry. HEAD: Normocephalic. EYES: No scleral icterus. No injection or drainage. NECK: Supple, trachea midline. No JVD or lymphadenopathy. CARDIOVASCULAR: Regular rate and rhythm without murmurs, gallops, or rubs. RESPIRATORY: Breath sounds equal bilaterally. No accessory muscle use. GASTROINTESTINAL: Abdomen soft, non-tender, nondistended. MUSCULOSKELETAL: Right 1st and 2nd toe amputations. 1 cm ulcer on the dorsal aspect of the right 4th toe, with purulent drainage, foul odor, surrounding erythema/edema extending up to the mid foot, with TTP throughout the third and fourth toes up to the mid foot. BACK: Nontender without obvious deformity. No CVA tenderness. A/P Problem List: (1) Osteomyelitis ICD Code: M86.9 - Osteomyelitis, unspecified Status: Acute (2) ESRD (end stage renal disease) ICD Code: N18.6 - End-stage renal disease Status: Chronic (3) Sepsis ICD Code: A41.9 - Sepsis, unspecified organism Assessment and Plan 57 yrs old female with: Sepsis with Right 4th Toe Osteomyelitis: Patient meets sepsis criteria with leukocytosis WBC 18K and tachycardia HR 104, with suspected source- osteomyelitis. Lactic Acid 1.7. -Right foot xray shows destruction of the 4th proximal and middle phalanges representing osteomyelitis -Currently on IV Zosyn and IV Vanco and culture NTD therefore will de- escalated to body by discontinue Zosyn -Appreciate input from podiatry and plan for digital amputation today -Pain control with [place] prn pain scale and IV dilaudid 0.5mg q4h prn breakthrough pain -ID consult PRN Peripheral artery disease CALVIN pending Appreciate input from vascular surgery, and will follow patient outpatient for further workup ESRD on HD MWF: received dialysis today 09/12. Follows with sales account leader Dr. Villagran. -Nephrology appreciated, continue with hemodialysis Sunday Skin Breakdown of Buttocks: suspect secondary to patient being mostly scooter and bed bound [id number] -Wound care nurse input appreciated Diarrhea: patient reports diarrhea over past few days -Resolved -C diff PCR p negative -Lactinex tx Diet-Controlled Diabetes Mellitus: chronic. -HA1c 7.3 -ISS with [facility] monitoring Chronic hypotension -continue Midodrine 10mg tid COPD: chronic, and no exacerbation -continue Albuterol inhaler q6h prn Hyperlipidemia -continue Statin Hypothyroidism -continue Synthroid Hypocalcemia: acute on chronic -continue Calcium carbonate and calcitriol Tobacco Use -counseled on cessation -Nicotine patch DVT Prophylaxis: heparin sq GI Prophylaxis: on protonix Problem Qualifiers (1) Osteomyelitis: Qualified Codes: M86.9 - Osteomyelitis, unspecified Goyo Barney MD Sep 15, 2017 11:17
--- NOTE | 2017-09-15 12:07 | PD.POD ---
Subjective Podiatric Problems Pt is resting comfortably, she reports some soreness in the right foot. She denies any n/v/f/h/v/sob. Pain score: 3 Past Med/Surg/Social History Social History Smoking Status: Current Every Day Smoker Objective Vital Signs Vital Signs Date Time Temp Pulse Resp B/P (MAP) Pulse Ox O2 Delivery O2 Flow Rate FiO2 09/15/17 08:40 90/68 (75) 09/15/17 08:00 97.5 79 18 76/51 (59) 95 09/15/17 04:07 97.1 83 18 85/49 (61) 97 09/15/17 04:00 85 09/15/17 00:13 102/54 (70) 09/15/17 00:00 72 09/14/17 23:37 97.1 74 18 92/43 (59) 98 09/14/17 20:39 98.0 70 18 104/58 (73) 98 09/14/17 20:00 77 09/14/17 16:00 92 09/14/17 15:35 95 Nasal Cannula 2.00 09/14/17 14:00 97.9 91 20 87/56 (66) 93 09/14/17 13:37 97.7 113 21 94/52 (66) 95 Coded Allergies: levofloxacin (Unverified Allergy, Severe, Anaphylaxis, 09/12/17) ANAPHYLAXIS Exam-Podiatry Remarks No changes from previous consult exam Assessment & Plan A/P 1) stage 3 ulcer right 4th toe with OM -plan for surgical amputation Sunday or Sunday -appreciate input -cont abx -WBAT in surgical shoe -cont daily wound care orders provided to nursing staff Tameka Wolf DPM Sep 15, 2017 12:07
--- NOTE | 2017-09-15 16:25 | HHI.NPPN ---
Subjective History of Present Illness ESRD with foot osteomyelitis Review of Systems General Constitutional: Fatigue Musculoskeletal MS: Pain/Stiffness Objective Data Data Vital Signs Date Time Temp Pulse Resp B/P (MAP) Pulse Ox O2 Delivery O2 Flow Rate FiO2 09/15/17 16:00 98.4 81 18 93/55 (68) 94 09/15/17 12:00 83 09/15/17 12:00 Nasal Cannula 2.00 09/15/17 12:00 97.3 87 18 138/64 (88) 95 09/15/17 08:40 90/68 (75) 09/15/17 08:00 97.5 79 18 76/51 (59) 95 09/15/17 08:00 76 09/15/17 04:07 97.1 83 18 85/49 (61) 97 09/15/17 04:00 85 09/15/17 00:13 102/54 (70) 09/15/17 00:00 72 09/14/17 23:37 97.1 74 18 92/43 (59) 98 09/14/17 20:39 98.0 70 18 104/58 (73) 98 09/14/17 20:00 77 -: 09/14/17 0726 09/14/17 0741 Physical Exam General Appearance: Well Developed, Obese Neck Neck Exam: Neck Supple Pulmonary Resp Exam: Clear Bilaterally, Breath Sounds Equal Cardiology CV Exam: Regular, Normal Sinus Rhythm Gastrointestinal/Abdomen GI Exam: Soft, Non-Tender, Bowel Sounds Present Extremeties Extremities Exam: Moderate Edema Assessment/Plan Problem List: (1) ESRD (end stage renal disease) ICD Codes: N18.6 - End-stage renal disease Status: Chronic Plan: Patient is on hemodialysis and this will be continued on Sunday, Sunday and Sunday foot surgery with toe amputation planned pt with osteo of foot (2) Osteomyelitis ICD Codes: M86.9 - Osteomyelitis, unspecified Status: Acute Plan: May require surgical intervention (3) Morbid obesity ICD Codes: E66.01 - Morbid (severe) obesity due to excess calories Status: Chronic (4) Hypotension ICD Codes: I95.9 - Hypotension Status: Resolved Plan: On midodrine Problem Qualifiers (1) Osteomyelitis: Qualified Codes: M86.9 - Osteomyelitis, unspecified Frank Villagran MD Sep 15, 2017 16:25
[2017-09-15] MEDS: traZODone HCL 50 MG TAB PO SCH (21:17)
[2017-09-15] MEDS: ATORVASTATIN 40 MG TAB PO SCH (21:18)
[2017-09-16] VITALS (7 sets, daily range): BP systolic 99–120; BP diastolic 53–72; PULSE 70–108; RESP 17–20; TEMP 97.4–97.6; O2SAT 93–96
[2017-09-16] MEDS: ACETAMINOPHEN/HYDROcodone 325 MG/7.5 MG TAB PO PRN (02:47)
[2017-09-16] MEDS: CALCIUM CARBONATE 500 MG CHEWABLE TAB CHEW SCH ×6 (02:47→23:48)
[2017-09-16] MEDS: MIDODRINE 5 MG TAB PO SCH ×3 (05:44→16:11)
[2017-09-16] MEDS: PIPERACIL-TAZO 2.25 GM PREMIX 50 ML IV SCH ×4 (05:44→23:48)
[2017-09-16] MEDS: LEVOTHYROXINE SODIUM 50 MCG TAB PO SCH (05:44)
[2017-09-16] MEDS: HYDROmorphone HCL PF 2 MG/ML VIAL IV PUSH PRN (05:45)
[2017-09-16 07:21] LABS: AUTOMATED NEUTROPHIL # 10.6 TH/MM3 (1.8-7.7); BASOPHIL % 0.3 % (0.0-2.0); EOSINOPHIL # 0.8 TH/MM3 (0-0.4); EOSINOPHIL % 6.2 % (0.0-4.0); HEMATOCRIT 37.4 % (35.0-46.0); HEMOGLOBIN 11.7 GM/DL (11.6-15.3); LYMPH % 4.2 % (9.0-44.0); LYMPHOCYTE # 0.5 TH/MM3 (1.0-4.8); MEAN CORPUSCULAR HEMOGLOBIN 28.4 PG (27.0-34.0); MEAN CORPUSCULAR HGB CONC 31.2 % (32.0-36.0); MEAN PLATELET VOLUME 7.5 FL (7.0-11.0); MONO % 7.2 % (0.0-8.0); MONOCYTE # 0.9 TH/MM3 (0-0.9); NEUT % 82.1 % (16.0-70.0); PLATELET COUNT 339 TH/MM3 (150-450); RED BLOOD COUNT 4.11 MIL/MM3 (4.00-5.30); RED CELL DISTRIBUTION WIDTH 16.5 % (11.6-17.2); WHITE BLOOD COUNT 12.9 TH/MM3 (4.0-11.0)
[2017-09-16 07:50] LABS: BICARBONATE 27.1 MEQ/L (21.0-32.0); CALCIUM 6.9 MG/DL (8.5-10.1); CREATININE 8.06 MG/DL (0.50-1.00)
[2017-09-16 08:16] LABS: TOTAL PROTEIN 8.1 GM/DL (6.4-8.2)
[2017-09-16 08:21] LABS: CALCIUM-PROTEIN CORRECTED 6.5 MG/DL (8.5-10.1)
[2017-09-16] MEDS: CALCITRIOL 0.25 MCG CAP PO SCH (08:50)
[2017-09-16] MEDS: PANTOPRAZOLE SOD 40 MG DELAYED RELEASE TAB PO SCH (08:50)
[2017-09-16] MEDS: GABAPENTIN 100 MG CAP PO SCH ×3 (08:51→18:48)
[2017-09-16] MEDS: buPROPion HCL 75 MG TAB PO SCH (08:51)
[2017-09-16] MEDS: LACTOBACILLUS ACIDOPHILUS TAB PO SCH ×3 (08:51→18:48)
[2017-09-16] MEDS: NICOTINE 7 MG/24 HR PATCH T-DERMAL SCH (08:51)
[2017-09-16] MEDS: REMOVE OLD PATCH T-DERMAL SCH (08:52)
[2017-09-16] MEDS: BACITRACIN OINT 0.9 GM PKT TOPICAL SCH (08:52)
[2017-09-16] MEDS: LIDOCAINE 4% CREAM 5 GM TUBE TOPICAL SCH ×2 (08:53→21:23)
[2017-09-16] MEDS: SILVER SULFADIAZINE 1% CR 50 GM JAR TOPICAL SCH ×2 (08:53→21:23)
[2017-09-16] MEDS: ASPIRIN EC 81 MG TABEC PO SCH (08:54)
[2017-09-16] MEDS: SODIUM CHLORIDE 0.9% FLUSH 10 ML FLUSH IV FLUSH SCH ×2 (08:56→21:22)
[2017-09-16] MEDS: INSULIN ASPART SUPPLEMENTAL SCALE SQ SCH ×4 (09:12→21:00)
[2017-09-16] MEDS: HEPARIN SODIUM - SQ 10,000 UNITS/ML VIAL SQ SCH ×2 (11:15→23:48)
--- NOTE | 2017-09-16 11:46 | HHI.PR ---
Subjective Remarks Follow 4th right toe osteomyelitis 09/13/17-patient seen and examined; although complains of toe pain however patient is refusing this AM to have MRI ordered 09/14/17-patient seen and examined, she had hemodialysis this morning, was seen by podiatry and vascular surgery. Currently afebrile. 09/15/17-patient seen and examined, currently nothing by mouth pending amputation of fourth right toe. No acute event overnight. 09/16/17-patient seen and examined, pain to right 4th toe; afebrile. Plan for surgery tomorrow Objective Vitals Vital Signs Date Time Temp Pulse Resp B/P (MAP) Pulse Ox O2 Delivery O2 Flow Rate FiO2 09/16/17 08:30 Nasal Cannula 2.00 09/16/17 08:00 97.6 86 18 99/54 (69) 95 09/16/17 04:00 108 09/16/17 04:00 97.5 98 17 105/71 (82) 95 09/16/17 00:00 97.6 93 17 101/72 (82) 93 101/72 (82) 09/16/17 00:00 84 09/15/17 20:00 90 09/15/17 20:00 Nasal Cannula 2.00 09/15/17 20:00 97.6 93 17 85/51 (62) 93 92/75 (81) 09/15/17 16:34 4.00 09/15/17 16:00 98.4 81 18 93/55 (68) 94 09/15/17 16:00 78 09/15/17 12:00 83 09/15/17 12:00 Nasal Cannula 2.00 09/15/17 12:00 97.3 87 18 138/64 (88) 95 I/O 09/15/17 09/15/17 09/15/17 09/16/17 09/16/17 09/16/17 07:00 15:00 23:00 07:00 15:00 23:00 Intake Total 480 ml 240 ml 340 ml Output Total 0 ml Balance 480 ml 240 ml 340 ml Intake Oral 480 ml 240 ml 240 ml IV Total 100 ml Output Urine Total 0 ml # Voids 2 1 # Bowel Movements 0 1 Result Diagram: 09/16/17 0600 09/16/17 0600 Objective Remarks GENERAL: NAD SKIN: Warm and dry. HEAD: Normocephalic. EYES: No scleral icterus. No injection or drainage. NECK: Supple, trachea midline. No JVD or lymphadenopathy. CARDIOVASCULAR: Regular rate and rhythm without murmurs, gallops, or rubs. RESPIRATORY: Breath sounds equal bilaterally. No accessory muscle use. GASTROINTESTINAL: Abdomen soft, non-tender, nondistended. MUSCULOSKELETAL: Right 1st and 2nd toe amputations. 1 cm ulcer on the dorsal aspect of the right 4th toe, with purulent drainage, foul odor, surrounding erythema/edema extending up to the mid foot, with TTP throughout the third and fourth toes up to the mid foot. BACK: Nontender without obvious deformity. No CVA tenderness. A/P Problem List: (1) Osteomyelitis ICD Code: M86.9 - Osteomyelitis, unspecified Status: Acute (2) ESRD (end stage renal disease) ICD Code: N18.6 - End-stage renal disease Status: Chronic (3) Sepsis ICD Code: A41.9 - Sepsis, unspecified organism Assessment and Plan 57 yrs old female with: Sepsis with Right 4th Toe Osteomyelitis: Patient meets sepsis criteria with leukocytosis WBC 18K and tachycardia HR 104, with suspected source- osteomyelitis. Lactic Acid 1.7. -Right foot xray shows destruction of the 4th proximal and middle phalanges representing osteomyelitis -Currently on IV Zosyn and IV Vanco -Appreciate input from podiatry and plan for digital amputation tomorrow 04/26 -Pain control with [place] prn pain scale and IV dilaudid 0.5mg q4h prn breakthrough pain -ID consult PRN Peripheral artery disease CALVIN pending Appreciate input from vascular surgery, and will follow patient outpatient for further workup ESRD on HD MWF: received dialysis today 09/12. Follows with hull line crew member Dr. Villagran. -Nephrology appreciated, continue with hemodialysis Sunday Skin Breakdown of Buttocks: suspect secondary to patient being mostly scooter and bed bound [id number] -Wound care nurse input appreciated Diarrhea: patient reports diarrhea over past few days -Resolved -C diff PCR p negative -Lactinex tx Diet-Controlled Diabetes Mellitus: chronic. -HA1c 7.3 and blood glucose labile with starts NovoLog 70/30 8 units twice a day -ISS with [facility] monitoring Chronic hypotension -continue Midodrine 10mg tid COPD: chronic, and no exacerbation -continue Albuterol inhaler q6h prn Hyperlipidemia -continue Statin Hypothyroidism -continue Synthroid Hypocalcemia: acute on chronic -continue Calcium carbonate and calcitriol - Will give 1 g calcium gluconate IV 1 now Tobacco Use -counseled on cessation -Nicotine patch DVT Prophylaxis: heparin sq GI Prophylaxis: on protonix Problem Qualifiers (1) Osteomyelitis: Qualified Codes: M86.9 - Osteomyelitis, unspecified Goyo Barney MD Sep 16, 2017 11:46
[2017-09-16] MEDS ORDERED: CALCIUM GLUCONATE INJ 1 GM in SODIUM CHLORIDE 0.9% INJ 100 ML IV ONE (13:00)
--- NOTE | 2017-09-16 14:17 | HHI.NPPN ---
Subjective History of Present Illness ESRD with foot osteomyelitis Review of Systems General Constitutional: Fatigue Musculoskeletal MS: Pain/Stiffness Objective Data Data Vital Signs Date Time Temp Pulse Resp B/P (MAP) Pulse Ox O2 Delivery O2 Flow Rate FiO2 09/16/17 12:00 97.4 83 18 100/57 (71) 96 09/16/17 12:00 84 09/16/17 08:30 Nasal Cannula 2.00 09/16/17 08:00 83 09/16/17 08:00 97.6 86 18 99/54 (69) 95 09/16/17 04:00 108 09/16/17 04:00 97.5 98 17 105/71 (82) 95 09/16/17 00:00 97.6 93 17 101/72 (82) 93 101/72 (82) 09/16/17 00:00 84 09/15/17 20:00 90 09/15/17 20:00 Nasal Cannula 2.00 09/15/17 20:00 97.6 93 17 85/51 (62) 93 92/75 (81) 09/15/17 16:34 4.00 09/15/17 16:00 98.4 81 18 93/55 (68) 94 09/15/17 16:00 78 -: 09/16/17 0600 09/16/17 0600 Physical Exam General Appearance: Well Developed, Obese Neck Neck Exam: Neck Supple Pulmonary Resp Exam: Clear Bilaterally, Breath Sounds Equal Cardiology CV Exam: Regular, Normal Sinus Rhythm Gastrointestinal/Abdomen GI Exam: Soft, Non-Tender, Bowel Sounds Present Extremeties Extremities Exam: Moderate Edema Assessment/Plan Problem List: (1) ESRD (end stage renal disease) ICD Codes: N18.6 - End-stage renal disease Status: Chronic Plan: Patient is on hemodialysis and this will be continued on Sunday, Sunday and Sunday foot surgery with toe amputation planned, continue to monitor pt with osteo of foot (2) Osteomyelitis ICD Codes: M86.9 - Osteomyelitis, unspecified Status: Acute Plan: May require surgical intervention (3) Morbid obesity ICD Codes: E66.01 - Morbid (severe) obesity due to excess calories Status: Chronic (4) Hypotension ICD Codes: I95.9 - Hypotension Status: Resolved Plan: On midodrine Problem Qualifiers (1) Osteomyelitis: Qualified Codes: M86.9 - Osteomyelitis, unspecified Frank Villagran MD Sep 16, 2017 14:17
[2017-09-16] MEDS: INSULIN ASPAR PROT 70/30 1,000 UNITS/10 ML VIAL SQ SCH (18:47)
[2017-09-16] MEDS: traZODone HCL 50 MG TAB PO SCH (21:22)
[2017-09-16] MEDS: ATORVASTATIN 40 MG TAB PO SCH (21:22)
[2017-09-17] VITALS (11 sets, daily range): BP systolic 88–112; BP diastolic 49–68; PULSE 77–100; RESP 16–20; TEMP 97.5–98.8; O2SAT 95–97
[2017-09-17] MEDS: CALCIUM CARBONATE 500 MG CHEWABLE TAB CHEW SCH ×5 (04:55→21:06)
[2017-09-17] MEDS: PIPERACIL-TAZO 2.25 GM PREMIX 50 ML IV SCH ×2 (04:55→12:00)
[2017-09-17] MEDS: MIDODRINE 5 MG TAB PO SCH ×2 (05:57→12:00)
[2017-09-17] MEDS: LEVOTHYROXINE SODIUM 50 MCG TAB PO SCH (05:57)
[2017-09-17] MEDS: ACETAMINOPHEN/HYDROcodone 325 MG/7.5 MG TAB PO PRN (05:58)
[2017-09-17 07:50] LABS: BICARBONATE 25.9 MEQ/L (21.0-32.0); CALCIUM 6.8 MG/DL (8.5-10.1); CREATININE 9.71 MG/DL (0.50-1.00); RANDOM VANCOMYCIN 26.5 COMMENT
[2017-09-17] MEDS: INSULIN ASPAR PROT 70/30 1,000 UNITS/10 ML VIAL SQ SCH ×2 (08:00→16:35)
[2017-09-17] MEDS: INSULIN ASPART SUPPLEMENTAL SCALE SQ SCH ×4 (08:00→21:00)
[2017-09-17 08:14] LABS: TOTAL PROTEIN 8.1 GM/DL (6.4-8.2)
[2017-09-17 08:33] LABS: CALCIUM-PROTEIN CORRECTED 6.4 MG/DL (8.5-10.1)
[2017-09-17] MEDS: ASPIRIN EC 81 MG TABEC PO SCH (09:00)
[2017-09-17] MEDS: LIDOCAINE 4% CREAM 5 GM TUBE TOPICAL SCH ×2 (09:00→21:07)
[2017-09-17] MEDS: BACITRACIN OINT 0.9 GM PKT TOPICAL SCH (09:00)
[2017-09-17] MEDS: REMOVE OLD PATCH T-DERMAL SCH (09:00)
[2017-09-17] MEDS: GABAPENTIN 100 MG CAP PO SCH ×3 (09:00→21:06)
[2017-09-17] MEDS: SILVER SULFADIAZINE 1% CR 50 GM JAR TOPICAL SCH ×2 (09:00→21:06)
[2017-09-17] MEDS: LACTOBACILLUS ACIDOPHILUS TAB PO SCH ×3 (09:00→18:00)
[2017-09-17] MEDS: ALBUMIN 25% INJ 100 ML IV PRN (09:11)
[2017-09-17] MEDS: HEPARIN SODIUM - IV 10,000 UNITS/10 ML VIAL PRN (09:12)
[2017-09-17] MEDS: GENTAMICIN SULFATE (DIALYSIS USE ONLY) 20 MG/2 ML VIAL OTHER PRN (09:12)
--- NOTE | 2017-09-17 09:27 | HHI.PR ---
Subjective Remarks Follow 4th right toe osteomyelitis 09/13/17-patient seen and examined; although complains of toe pain however patient is refusing this AM to have MRI ordered 09/14/17-patient seen and examined, she had hemodialysis this morning, was seen by podiatry and vascular surgery. Currently afebrile. 09/15/17-patient seen and examined, currently nothing by mouth pending amputation of fourth right toe. No acute event overnight. 09/16/17-patient seen and examined, pain to right 4th toe; afebrile. Plan for surgery tomorrow 09/17/17-patient seen and examined, heading to HD this AM and latter on for 4th right toe amputation. NO acute event overnight. BP soft Objective Vitals Vital Signs Date Time Temp Pulse Resp B/P (MAP) Pulse Ox O2 Delivery O2 Flow Rate FiO2 09/17/17 08:30 98.4 82 16 88/51 (63) 95 09/17/17 04:07 84 09/17/17 04:00 98.8 91 20 112/49 (70) 96 09/17/17 00:00 77 09/17/17 00:00 97.5 87 20 107/68 (81) 95 09/16/17 20:07 97.4 84 20 113/56 (75) 95 09/16/17 20:00 86 09/16/17 20:00 Nasal Cannula 2.00 09/16/17 19:17 Room Air 09/16/17 16:00 97.4 70 18 120/53 (75) 94 09/16/17 16:00 80 09/16/17 15:30 2.00 09/16/17 12:00 97.4 83 18 100/57 (71) 96 09/16/17 12:00 84 09/16/17 12:00 Nasal Cannula 2.00 I/O 09/16/17 09/16/17 09/16/17 09/17/17 09/17/17 09/17/17 07:00 15:00 23:00 07:00 15:00 23:00 Intake Total 340 ml 340 ml 270 ml Output Total 200 ml Balance 340 ml 340 ml 70 ml Intake Oral 240 ml 240 ml 220 ml IV Total 100 ml 100 ml 50 ml Output Urine Total 200 ml # Voids 1 2 # Bowel Movements 1 1 0 Result Diagram: 09/16/17 0600 09/17/17 0610 Objective Remarks GENERAL: NAD SKIN: Warm and dry. HEAD: Normocephalic. EYES: No scleral icterus. No injection or drainage. NECK: Supple, trachea midline. No JVD or lymphadenopathy. CARDIOVASCULAR: Regular rate and rhythm without murmurs, gallops, or rubs. RESPIRATORY: Breath sounds equal bilaterally. No accessory muscle use. GASTROINTESTINAL: Abdomen soft, non-tender, nondistended. MUSCULOSKELETAL: Right 1st and 2nd toe amputations. 1 cm ulcer on the dorsal aspect of the right 4th toe, with purulent drainage, foul odor, surrounding erythema/edema extending up to the mid foot, with TTP throughout the third and fourth toes up to the mid foot. BACK: Nontender without obvious deformity. No CVA tenderness. A/P Problem List: (1) Osteomyelitis ICD Code: M86.9 - Osteomyelitis, unspecified Status: Acute (2) ESRD (end stage renal disease) ICD Code: N18.6 - End-stage renal disease Status: Chronic (3) Sepsis ICD Code: A41.9 - Sepsis, unspecified organism Assessment and Plan 57 yrs old female with: Sepsis with Right 4th Toe Osteomyelitis: Patient meets sepsis criteria with leukocytosis WBC 18K and tachycardia HR 104, with suspected source- osteomyelitis. Lactic Acid 1.7. -Right foot xray shows destruction of the 4th proximal and middle phalanges representing osteomyelitis -Currently on IV Zosyn and IV Vanco -Appreciate input from podiatry and plan for digital amputation today -Pain control with [place] prn pain scale and IV dilaudid 0.5mg q4h prn breakthrough pain -ID consult PRN Peripheral artery disease Appreciate input from vascular surgery, and will follow patient outpatient for further workup ESRD on HD MWF: received dialysis today 09/12. Follows with rock crushing machine operator Dr. Villagran. -Nephrology appreciated, continue with hemodialysis Sunday Skin Breakdown of Buttocks: suspect secondary to patient being mostly scooter and bed bound [id number] -Wound care nurse input appreciated Diarrhea: patient reports diarrhea over past few days -Resolved -C diff PCR p negative -Lactinex tx Diet-Controlled Diabetes Mellitus: chronic. -HA1c 7.3 and continue NovoLog 70/30 8 units twice a day -ISS with [facility] monitoring Chronic hypotension -continue Midodrine 10mg tid COPD: chronic, and no exacerbation -continue Albuterol inhaler q6h prn Hyperlipidemia -continue Statin Hypothyroidism -continue Synthroid Hypocalcemia: acute on chronic -continue Calcium carbonate and calcitriol - s/p 1 g calcium gluconate IV 1 Tobacco Use -counseled on cessation -Nicotine patch DVT Prophylaxis: heparin sq GI Prophylaxis: on protonix Problem Qualifiers (1) Osteomyelitis: Qualified Codes: M86.9 - Osteomyelitis, unspecified Goyo Barney MD Sep 17, 2017 09:27
[2017-09-17] MEDS: HEPARIN SODIUM - SQ 10,000 UNITS/ML VIAL SQ SCH ×2 (11:15→23:15)
--- NOTE | 2017-09-17 11:26 | HHI.NPPN ---
Subjective History of Present Illness ESRD with foot osteomyelitis Review of Systems General Constitutional: Fatigue Musculoskeletal MS: Pain/Stiffness Objective Data Data 09/17/17 09/18/17 19:00 07:00 Output Total 1000 ml Balance -1000 ml Hemodialysis 1000 ml Vital Signs Date Time Temp Pulse Resp B/P (MAP) Pulse Ox O2 Delivery O2 Flow Rate FiO2 09/17/17 09:52 95 Nasal Cannula 2.00 09/17/17 08:30 98.4 82 16 88/51 (63) 95 09/17/17 04:07 84 09/17/17 04:00 98.8 91 20 112/49 (70) 96 09/17/17 00:00 77 09/17/17 00:00 97.5 87 20 107/68 (81) 95 09/16/17 20:07 97.4 84 20 113/56 (75) 95 09/16/17 20:00 86 09/16/17 20:00 Nasal Cannula 2.00 09/16/17 19:17 Room Air 09/16/17 16:00 97.4 70 18 120/53 (75) 94 09/16/17 16:00 80 09/16/17 15:30 2.00 09/16/17 12:00 97.4 83 18 100/57 (71) 96 09/16/17 12:00 84 09/16/17 12:00 Nasal Cannula 2.00 -: 09/16/17 0600 09/17/17 0610 Physical Exam General Appearance: Well Developed, Obese Neck Neck Exam: Neck Supple Pulmonary Resp Exam: Clear Bilaterally, Breath Sounds Equal Cardiology CV Exam: Regular, Normal Sinus Rhythm Gastrointestinal/Abdomen GI Exam: Soft, Non-Tender, Bowel Sounds Present Extremeties Extremities Exam: Moderate Edema Assessment/Plan Problem List: (1) ESRD (end stage renal disease) ICD Codes: N18.6 - End-stage renal disease Status: Chronic Plan: Patient is on hemodialysis and this will be continued on Sunday, Sunday and Sunday foot surgery with toe amputation planned, continue to monitor pt with osteo of foot seen at HD UF 1 L low BP Low Calcium Ca gluconate ordered (2) Osteomyelitis ICD Codes: M86.9 - Osteomyelitis, unspecified Status: Acute Plan: May require surgical intervention (3) Morbid obesity ICD Codes: E66.01 - Morbid (severe) obesity due to excess calories Status: Chronic (4) Hypotension ICD Codes: I95.9 - Hypotension Status: Resolved Plan: On midodrine Problem Qualifiers (1) Osteomyelitis: Qualified Codes: M86.9 - Osteomyelitis, unspecified Frank Villagran MD Sep 17, 2017 11:26
[2017-09-17] MEDS ORDERED: PROPOFOL 200 MG/20 ML AMP IV ONE (12:00)
[2017-09-17] MEDS ORDERED: PHENYLEPH/NS 1000 MCG/10 ML SYR IV ONE (12:00)
[2017-09-17] MEDS ORDERED: ONDANSETRON HCL 4 MG/2 ML VIAL IV PUSH ONE (12:00)
[2017-09-17] MEDS ORDERED: DEXAMETHASONE SOD PHOS 4 MG/ML VIAL IV ONE (12:00)
[2017-09-17] MEDS ORDERED: CALCIUM GLUCONATE INJ 2 GM in DEXTROSE 5% IN WATER 100ML INJ 100 ML IV ONE ×2 (13:00)
[2017-09-17] MEDS: SODIUM CHLORIDE 0.9% FLUSH 10 ML FLUSH IV FLUSH SCH ×2 (14:40→21:07)
[2017-09-17] MEDS: NICOTINE 7 MG/24 HR PATCH T-DERMAL SCH (14:41)
[2017-09-17] MEDS: buPROPion HCL 75 MG TAB PO SCH (14:41)
[2017-09-17] MEDS: CALCITRIOL 0.25 MCG CAP PO SCH (14:42)
[2017-09-17] MEDS: PANTOPRAZOLE SOD 40 MG DELAYED RELEASE TAB PO SCH (14:42)
[2017-09-17] MEDS ORDERED: BUPIVACAINE HCL PF 0.25% 30 ML VIAL ONE (16:50)
[2017-09-17] MEDS ORDERED: FAMOTIDINE 20 MG/2 ML VIAL ONE (16:51)
[2017-09-17] MEDS ORDERED: NEOMYCIN/POLYMYXIN 1 ML G.U. IRRIGANT ONE (16:54)
--- NOTE | 2017-09-17 16:55 | HHI.PR ---
Subjective Remarks Patient seen bedside in preop to discuss right fourth digit amputation. Patient denies pain. Denies N,V,F,Ch. States she is nervous about the procedure. Objective Vital Signs Date Time Temp Pulse Resp B/P (MAP) Pulse Ox O2 Delivery O2 Flow Rate FiO2 09/17/17 09:52 95 Nasal Cannula 2.00 09/17/17 08:30 98.4 82 16 88/51 (63) 95 09/17/17 04:07 84 09/17/17 04:00 98.8 91 20 112/49 (70) 96 09/17/17 00:00 77 09/17/17 00:00 97.5 87 20 107/68 (81) 95 09/16/17 20:07 97.4 84 20 113/56 (75) 95 09/16/17 20:00 86 09/16/17 20:00 Nasal Cannula 2.00 09/16/17 19:17 Room Air I/O 09/16/17 09/16/17 09/16/17 09/17/17 09/17/17 09/17/17 06:59 14:59 22:59 06:59 14:59 22:59 Intake Total 340 ml 340 ml 270 ml Output Total 200 ml 1000 ml Balance 340 ml 340 ml 70 ml -1000 ml Intake Oral 240 ml 240 ml 220 ml IV Total 100 ml 100 ml 50 ml Output Urine Total 200 ml Hemodialysis 1000 ml # Voids 1 2 # Bowel Movements 1 1 0 Result Diagram: 09/16/17 0600 09/17/17 0610 Imaging Last Impressions Foot X-Ray 09/12/172026 Signed Impressions: Service Date/Time: Tuesday, September 12, 2017 20:40 - CONCLUSION: Destruction of the fourth proximal and middle phalanges could represent osteomyelitis in the appropriate clinical setting. Juanjo Oleary MD Other Results Laboratory Tests Test 09/16/17 06:00 09/17/17 06:10 White Blood Count 12.9 TH/MM3 Red Blood Count 4.11 MIL/MM3 Hemoglobin 11.7 GM/DL Hematocrit 37.4 % Mean Corpuscular Volume 91.0 FL Mean Corpuscular Hemoglobin 28.4 PG Mean Corpuscular Hemoglobin Concent 31.2 % Red Cell Distribution Width 16.5 % Platelet Count 339 TH/MM3 Mean Platelet Volume 7.5 FL Neutrophils (%) (Auto) 82.1 % Lymphocytes (%) (Auto) 4.2 % Monocytes (%) (Auto) 7.2 % Eosinophils (%) (Auto) 6.2 % Basophils (%) (Auto) 0.3 % Neutrophils # (Auto) 10.6 TH/MM3 Lymphocytes # (Auto) 0.5 TH/MM3 Monocytes # (Auto) 0.9 TH/MM3 Eosinophils # (Auto) 0.8 TH/MM3 Basophils # (Auto) 0.0 TH/MM3 CBC Comment DIFF FINAL Differential Comment Blood Urea Nitrogen 45 MG/DL 60 MG/DL Creatinine 8.06 MG/DL 9.71 MG/DL Random Glucose 202 MG/DL 163 MG/DL Total Protein 8.1 GM/DL 8.1 GM/DL Calcium Level 6.9 MG/DL 6.8 MG/DL Sodium Level 135 MEQ/L 135 MEQ/L Potassium Level 4.6 MEQ/L 4.6 MEQ/L Chloride Level 97 MEQ/L 98 MEQ/L Carbon Dioxide Level 27.1 MEQ/L 25.9 MEQ/L Anion Gap 11 MEQ/L 11 MEQ/L Estimat Glomerular Filtration Rate 6 ML/MIN 5 ML/MIN Protein Corrected Calcium 6.5 MG/DL 6.4 MG/DL Random Vancomycin Level 26.5 COMMENT Objective Remarks Right foot exam: Vasc: DP palpable, PT non palpable to right foot. FAMILY DEVELOPMENT SPECIALIST under 3 secs to digits of the right foot, 4th/5th. Edema noted to right foot. Increased edema noted to 4th digit. Neuro: Gross sensation intact to right foot. No hyperalgesia noted. Derm: Ulcer located to dorsal aspect of 4th, 5th digit with purulent drainage noted. Increased erythema noted to 4th digit. No crepitus or fluctuance noted to right 4th digit. MSK: Amputations noted to 2,3 digit of right foot. Abductovarus deformity noted to 5th digit right foot. ROM to right ankle WNL. Medications and IVs Current Medications Medications (Trade) Dose Ordered Sig/Mary Grace Route Start Time Stop Time Status Last Admin Pharmacy Profile Note 0 ml @ 0 mls/hr UNSCH OTHER 09/12/17 23:15 Piperacillin Sod/ Tazobactam Sod 50 ml @ 200 mls/hr Q6H IV 09/13/17 00:00 09/17/17 04:55 (NS Flush) 2 ml UNSCH PRN IV FLUSH 09/12/17 23:15 (NS Flush) 2 ml BID IV FLUSH 09/13/17 09:00 09/17/17 14:40 (Zofran Inj) 4 mg Q6H PRN IVP 09/12/17 23:15 09/14/17 21:37 (Heparin Inj) 5,000 units Q12H SQ 09/12/17 23:15 09/16/17 23:48 (Tylenol) 650 mg Q6H PRN PO 09/12/17 23:15 (Sontag 5-325 Mg) 1 tab Q4H PRN PO 09/12/17 23:15 (Sontag 7.5-325 Mg) 1 tab Q4H PRN PO 09/12/17 23:15 09/17/17 05:58 (Narcan Inj) 0.4 mg UNSCH PRN IV PUSH 09/12/17 23:15 (Milk Of Magnesia Liq) 30 ml Q12H PRN PO 09/12/17 23:15 (Senokot) 17.2 mg Q12H PRN PO 09/12/17 23:15 (Dulcolax Supp) 10 mg DAILY PRN RECTAL 09/12/17 23:15 (Lactulose Liq) 30 ml DAILY PRN PO 09/12/17 23:15 (Dilaudid Pf Inj) 0.5 mg Q4H PRN IV PUSH 09/12/17 23:15 09/16/17 05:45 (Proair Hfa Inh) 2 puff Q6H PRN INH 09/12/17 23:15 09/14/17 10:22 (Ecotrin Ec) 81 mg DAILY PO 09/13/17 09:00 09/16/17 08:54 (Lipitor) 40 mg HS PO 09/12/17 23:15 09/16/17 21:22 (Wellbutrin) 75 mg DAILY PO 09/13/17 09:00 09/17/17 14:41 (Rocaltrol) 0.5 mcg DAILY PO 09/13/17 09:00 09/17/17 14:42 (Tums Chew) 1,000 mg Q4HR CHEW 09/13/17 00:00 09/17/17 14:49 (Flexeril) 10 mg BID PRN PO 1/3/18 23:15 09/15/17 13:09 (Neurontin) 100 mg TID PO 09/13/17 09:00 09/17/17 14:42 (Synthroid) 50 mcg DAILY@0700 PO 09/13/17 07:00 09/17/17 05:57 (Proamatine) 10 mg TID@07,12,17 PO 09/13/17 07:00 09/17/17 05:57 (Protonix) 40 mg DAILY PO 09/13/17 09:00 09/17/17 14:42 (Desyrel) 150 mg HS PO 09/12/17 23:15 09/16/17 21:22 (Lactinex) 1 tab TID PO 09/13/17 09:00 09/17/17 14:43 (Habitrol 7 Mg Patch.24 Hr) 1 patch DAILY T-DERMAL 09/13/17 09:00 09/17/17 14:41 Miscellaneous Information 1 DAILY T-DERMAL 09/13/17 09:00 09/17/17 09:00 (D50w (Vial) Inj) 50 ml UNSCH PRN IV PUSH 09/13/17 11:30 (Glucagon Inj) 1 mg UNSCH PRN OTHER 09/13/17 11:30 (NovoLOG SUPPLEMENTAL SCALE) 1 ACHS SLIDING SCALE SQ 09/13/17 12:00 09/16/17 12:39 Sodium Chloride 1,000 ml @ 0 mls/hr Q0M PRN OTHER 09/13/17 15:14 (Heparin Inj) 8,000 units UNSCH PRN IV FLUSH 09/13/17 15:15 Sodium Chloride 1,000 ml @ 200 mls/hr Q5H PRN IV 09/13/17 15:14 Sodium Chloride 1,000 ml @ 0 mls/hr Q0M PRN OTHER 09/13/17 15:14 (Mannitol Inj) 12.5 gm UNSCH PRN IV 09/13/17 15:15 Albumin Human 100 ml @ 60 mls/hr UNSCH PRN IV 09/13/17 15:15 09/17/17 09:11 (NS Flush) 5 ml UNSCH PRN IV FLUSH 09/13/17 15:15 (Heparin Inj) UNSCH PRN .XX 09/13/17 15:15 09/17/17 09:12 (Gentamicin (Dialysis) Inj) 20 mg UNSCH PRN OTHER 09/13/17 15:15 09/17/17 09:12 (Zofran Inj) 4 mg UNSCH PRN IV PUSH 09/13/17 15:15 (Tylenol) 650 mg UNSCH PRN PO 09/13/17 15:15 (Benadryl) 25 mg UNSCH PRN PO 09/13/17 15:15 (Nitrostat Sl) 0.4 mg UNSCH PRN SL 09/13/17 15:15 (Catapres) 0.1 mg UNSCH PRN PO 09/13/17 15:15 (Gelfoam 12 Mm/7 Mm Top) 1 foam UNSCH PRN TOP 09/13/17 15:15 (Silvadene 1% Cream (50 Gm)) 1 applic BID TOPICAL 09/13/17 23:00 09/16/17 21:23 (L-M-X 4 Cream) 1 applic BID TOPICAL 09/13/17 23:00 09/16/17 21:23 (Bacitracin Oint Packet) 0.9 gm DAILY TOPICAL 09/14/17 09:00 09/16/17 08:52 Lactated Ringer's 1,000 ml @ 30 mls/hr Q24H PRN IV 09/15/17 07:00 09/18/17 06:59 Sodium Chloride 500 ml @ 30 mls/hr [id number] PRN IV 09/15/17 07:00 09/18/17 06:59 (Betadine 5% Antisepsis Kit) 1 applic EYE CARE PROFESSIONAL PRN EACH NARE 09/15/17 07:00 09/18/17 06:59 (Chlorhexidine 2% Cloth) 3 pack EYE CARE PROFESSIONAL PRN TOPICAL 09/15/17 07:00 09/18/17 06:59 (NovoLOG MIX 70/ 30 INJ) 8 units BID@08,17 SQ 09/16/17 17:00 09/16/17 18:47 Assessment and Plan Assessment and Plan 57 year old female with OM and open ulcer to right 4th digit Patient examined and evaluated with all questions answered Consent reviewed and signed for right 4th digit amputation Patient has remained NPO Anticipated d/c per podiatry 1-2 days post op Will obtain OR cultures and proximal clearing margin Leonei Naqvi DPM Sep 17, 2017 16:55
[2017-09-17] MEDS ORDERED: VANCOMYCIN HCL 1000 MG VIAL ONE (17:03)
[2017-09-17] MEDS ORDERED: LIDOCAINE HCL 1% 50 ML VIAL ONE (17:03)
[2017-09-17] MEDS ORDERED: DO NOT ADM ANY ANTICOAGULANT DRUGS PRN (18:07)
--- NOTE | 2017-09-17 18:10 | HHI.PR ---
Immediate Post Op Note Procedure Date: Sep 17, 2017 Pre Op Diagnosis: Right fourth digit OM Post Op Diagnosis: Right fourth digit osteomyelitis Surgeon: Leonie Naqvi Entry Processor(s): None Procedure: Right fourth digit amputation Findings: None Additional Information: None Complications: None Specimen(s) removed: 1. Right foot soft tissue for culture 2. Right foot fourth digit for path 3. Right fourth metatarsal head proximal clearing margin for path 4. Right fourth metatarsal head for culture Estimated blood loss: less than 5cc Anesthesia: LMA Drains: None IVF Patient to: PACU Patient Condition: Good Leonie Naqvi DPM Sep 17, 2017 18:10
[2017-09-17] MEDS ORDERED: Post-op Orders (for Pharmacy) XX ONE (18:15)
[2017-09-17] MEDS ORDERED: MIDAZOLAM HCL 2 MG/2 ML VIAL ONE (18:16)
--- NOTE | 2017-09-17 19:07 | RADRPT ---
EXAM DATE/TIME: 09/17/2017 18:34 [facility] COMPARISON: FOOT RIGHT COMPLETE ([id number]), September 12, 2017, 20:40. INDICATIONS : Post op right foot. MEDICAL HISTORY : Diabetes mellitus type II. SURGICAL HISTORY : Right toe amputations. ENCOUNTER: Subsequent ACUITY: 1 day PAIN SCORE: Non-responsive. LOCATION: Right foot FINDINGS: Three view examination of the right foot demonstrates there has been previous interval surgery with r esection of the majority of the fourth toe. The other sections are stable. There is marked atheroscle rotic disease. The tarsal bones show good alignment. The calcaneus is intact. Bony mineralization i s normal. CONCLUSION: The fourth toe has been surgically removed. Postsurgical changes through the other toes unchanged. Romel Fraser MD on September 17, 2017 at 19:04 Board Certified Radiologist. This report was verified electronically.
[2017-09-17] MEDS ORDERED: HYDROmorphone HCL PF 2 MG/ML VIAL IV PUSH ONE (20:15)
[2017-09-17] MEDS: ATORVASTATIN 40 MG TAB PO SCH (21:06)
[2017-09-17] MEDS: traZODone HCL 50 MG TAB PO SCH (21:06)
[2017-09-18] VITALS (10 sets, daily range): BP systolic 81–107; BP diastolic 50–66; PULSE 84–94; RESP 18–20; TEMP 98.1–98.8; O2SAT 93–96
[2017-09-18] MEDS: PIPERACIL-TAZO 2.25 GM PREMIX 50 ML IV SCH ×3 (01:32→05:30)
[2017-09-18] MEDS: LEVOTHYROXINE SODIUM 50 MCG TAB PO SCH (05:26)
[2017-09-18] MEDS: CALCIUM CARBONATE 500 MG CHEWABLE TAB CHEW SCH ×7 (05:26→23:00)
[2017-09-18] MEDS: MIDODRINE 5 MG TAB PO SCH ×3 (05:26→17:42)
[2017-09-18] MEDS: ACETAMINOPHEN/HYDROcodone 325 MG/7.5 MG TAB PO PRN ×3 (05:38→22:56)
[2017-09-18 06:54] LABS: CREATININE 7.2 MG/DL (0.50-1.00)
[2017-09-18] MEDS: INSULIN ASPART SUPPLEMENTAL SCALE SQ SCH ×4 (08:00→21:00)
[2017-09-18] MEDS: HYDROmorphone HCL PF 2 MG/ML VIAL IV PUSH PRN (09:07)
[2017-09-18] MEDS: buPROPion HCL 75 MG TAB PO SCH (09:14)
[2017-09-18] MEDS: GABAPENTIN 100 MG CAP PO SCH ×3 (09:14→17:42)
[2017-09-18] MEDS: NICOTINE 7 MG/24 HR PATCH T-DERMAL SCH (09:15)
[2017-09-18] MEDS: CALCITRIOL 0.25 MCG CAP PO SCH (09:15)
--- NOTE | 2017-09-18 11:10 | HHI.PR ---
Subjective Remarks Follow 4th right toe osteomyelitis 09/13/17-patient seen and examined; although complains of toe pain however patient is refusing this AM to have MRI ordered 09/14/17-patient seen and examined, she had hemodialysis this morning, was seen by podiatry and vascular surgery. Currently afebrile. 09/15/17-patient seen and examined, currently nothing by mouth pending amputation of fourth right toe. No acute event overnight. 09/16/17-patient seen and examined, pain to right 4th toe; afebrile. Plan for surgery tomorrow 09/17/17-patient seen and examined, heading to HD this AM and latter on for 4th right toe amputation. NO acute event overnight. BP soft 09/18/17-patient seen and examined, status post right digit fourth toe amputation. Complains of soreness otherwise stable and afebrile. Objective Vitals Vital Signs Date Time Temp Pulse Resp B/P (MAP) Pulse Ox O2 Delivery O2 Flow Rate FiO2 09/18/17 08:00 98.5 84 20 81/54 (63) 95 85/53 (64) 09/18/17 04:24 87 09/18/17 04:00 98.1 90 18 90/54 (66) 93 09/18/17 00:00 98.8 94 20 97/57 (70) 96 09/17/17 23:56 93 09/17/17 20:51 Nasal Cannula 3.00 09/17/17 20:05 Room Air 09/17/17 20:00 98.0 100 20 110/55 (73) 96 09/17/17 19:00 97.8 98 20 101/58 (72) 100 Room Air 09/17/17 18:45 95 20 101/58 (72) 100 Room Air 09/17/17 18:30 94 20 101/57 (72) 100 Room Air 09/17/17 18:15 91 20 103/57 (72) 100 09/17/17 18:09 97.8 93 20 102/56 (71) 100 Nasal Cannula 2 Manual Cuff/Auscultation 09/17/17 16:07 86 09/17/17 16:00 98.3 90 16 96/54 (68) 95 09/17/17 13:40 98.4 86 16 104/52 (69) 97 I/O 09/17/17 09/17/17 09/17/17 09/18/17 09/18/17 09/18/17 07:00 15:00 23:00 07:00 15:00 23:00 Intake Total 270 ml 350 ml 480 ml Output Total 200 ml 1000 ml 5 ml Balance 70 ml -1000 ml 345 ml 480 ml Intake Oral 220 ml 480 ml IV Total 50 ml Other 350 ml Output Urine Total 200 ml Hemodialysis 1000 ml Estimated Blood Loss 5 ml # Voids 0 # Bowel Movements 0 1 Result Diagram: 09/16/17 0600 09/18/17 0607 Objective Remarks GENERAL: NAD SKIN: Warm and dry. HEAD: Normocephalic. EYES: No scleral icterus. No injection or drainage. NECK: Supple, trachea midline. No JVD or lymphadenopathy. CARDIOVASCULAR: Regular rate and rhythm without murmurs, gallops, or rubs. RESPIRATORY: Breath sounds equal bilaterally. No accessory muscle use. GASTROINTESTINAL: Abdomen soft, non-tender, nondistended. MUSCULOSKELETAL: dressing covering right foot BACK: Nontender without obvious deformity. No CVA tenderness. Procedures s/p Right fourth digit amputation 09/17/17 A/P Problem List: (1) Osteomyelitis ICD Code: M86.9 - Osteomyelitis, unspecified Status: Acute (2) ESRD (end stage renal disease) ICD Code: N18.6 - End-stage renal disease Status: Chronic (3) Sepsis ICD Code: A41.9 - Sepsis, unspecified organism Assessment and Plan 57 yrs old female with: Sepsis with Right 4th Toe Osteomyelitis: -Right foot xray shows destruction of the 4th proximal and middle phalanges representing osteomyelitis -d/c Zosyn and continue IV Vanco -Appreciate input from podiatry and s/p Right fourth digit amputation -Pain control with [place] prn pain scale and IV dilaudid 0.5mg q4h prn breakthrough pain -ID consult PRN Peripheral artery disease Appreciate input from vascular surgery, and will follow patient outpatient for further workup ESRD on HD MWF: received dialysis today 09/12. Follows with satellite dish installer Dr. Villagran. -Nephrology appreciated, continue with hemodialysis Sunday Skin Breakdown of Buttocks: suspect secondary to patient being mostly scooter and bed bound [id number] -Wound care nurse input appreciated Diarrhea: patient reports diarrhea over past few days -Resolved -C diff PCR p negative -Lactinex tx Diet-Controlled Diabetes Mellitus: chronic. -HA1c 7.3 and continue NovoLog 70/30 8 units twice a day -ISS with [facility] monitoring Chronic hypotension -continue Midodrine 10mg tid COPD: chronic, and no exacerbation -continue Albuterol inhaler q6h prn Hyperlipidemia -continue Statin Hypothyroidism -continue Synthroid Hypocalcemia: acute on chronic -continue Calcium carbonate and calcitriol - s/p 1 g calcium gluconate IV 1 Tobacco Use -counseled on cessation -Nicotine patch DVT Prophylaxis: heparin sq GI Prophylaxis: on protonix Problem Qualifiers (1) Osteomyelitis: Qualified Codes: M86.9 - Osteomyelitis, unspecified Goyo Barney MD Sep 18, 2017 11:10
[2017-09-18] MEDS: REMOVE OLD PATCH T-DERMAL SCH (12:08)
[2017-09-18] MEDS: INSULIN ASPAR PROT 70/30 1,000 UNITS/10 ML VIAL SQ SCH ×2 (12:11→17:00)
[2017-09-18] MEDS: SODIUM CHLORIDE 0.9% FLUSH 10 ML FLUSH IV FLUSH SCH ×2 (12:12→21:16)
[2017-09-18] MEDS: HEPARIN SODIUM - SQ 10,000 UNITS/ML VIAL SQ SCH ×2 (12:14→23:00)
--- NOTE | 2017-09-18 13:10 | PD.VS.PN ---
Subjective Subjective/Hospital Course Pt s/p amputation of toes by podiatry. Preoperative examination suggested adequate perfusion Will defer to podiatry for wound management Pt doing well at present Objective Vitals/I&O Date Time Temp Pulse Resp B/P (MAP) Pulse Ox O2 Delivery O2 Flow Rate FiO2 09/18/17 08:00 98.5 84 20 81/54 (63) 95 85/53 (64) 09/18/17 04:24 87 09/18/17 04:00 98.1 90 18 90/54 (66) 93 09/18/17 00:00 98.8 94 20 97/57 (70) 96 09/17/17 23:56 93 09/17/17 20:51 Nasal Cannula 3.00 09/17/17 20:05 Room Air 09/17/17 20:00 98.0 100 20 110/55 (73) 96 09/17/17 19:00 97.8 98 20 101/58 (72) 100 Room Air 09/17/17 18:45 95 20 101/58 (72) 100 Room Air 09/17/17 18:30 94 20 101/57 (72) 100 Room Air 09/17/17 18:15 91 20 103/57 (72) 100 09/17/17 18:09 97.8 93 20 102/56 (71) 100 Nasal Cannula 2 Manual Cuff/Auscultation 09/17/17 16:07 86 09/17/17 16:00 98.3 90 16 96/54 (68) 95 09/17/17 13:40 98.4 86 16 104/52 (69) 97 09/18/17 09/18/17 09/18/17 06:59 14:59 22:59 Intake Total 480 ml Balance 480 ml Physical Exam R foot wrapped, motor intact grossly Laboratory Laboratory Tests Test 09/18/17 06:07 Creatinine 7.20 Estimat Glomerular Filtration Rate 7 Date/Time Source Procedure Growth Status 09/12/17 19:50 Blood Peripheral Aerobic Blood Culture - Final NO GROWTH IN 5 DAYS Complete 09/12/17 19:50 Blood Peripheral Anaerobic Blood Culture - Final NO GROWTH IN 5 DAYS Complete 09/17/17 18:26 Wound Foot Fungal Smear - Final NO FUNGAL ELEMENTS SEEN. Resulted 09/17/17 18:26 Wound Foot Fungal Culture Pending Resulted Imaging Last 48 hours Impressions Foot X-Ray 09/17/17 0000 Signed Impressions: Service Date/Time: Sunday, September 17, 2017 18:34 - CONCLUSION: The fourth toe has been surgically removed. Postsurgical changes through the other toes unchanged. Romel Fraser MD Assessment and Plan Plan R foot wound management per podiatry Will schedule f/u in vascular for surveillance ABIs and AVF eval - has R groin catheter at present Gaetano Dougherty MD FACS RPVI print inspector [facility] [phone] Gaetano Dougherty MD Sep 18, 2017 13:10
[2017-09-18] MEDS: PANTOPRAZOLE SOD 40 MG DELAYED RELEASE TAB PO SCH (13:39)
[2017-09-18] MEDS: LACTOBACILLUS ACIDOPHILUS TAB PO SCH ×3 (13:40→17:42)
[2017-09-18] MEDS: ASPIRIN EC 81 MG TABEC PO SCH (13:41)
[2017-09-18] MEDS: LIDOCAINE 4% CREAM 5 GM TUBE TOPICAL SCH ×2 (13:43→21:16)
[2017-09-18] MEDS: SILVER SULFADIAZINE 1% CR 50 GM JAR TOPICAL SCH ×2 (13:43→21:17)
--- NOTE | 2017-09-18 15:30 | HHI.NPPN ---
Subjective History of Present Illness ESRD with foot osteomyelitis Review of Systems General Constitutional: Fatigue Musculoskeletal MS: Pain/Stiffness Objective Data Data Vital Signs Date Time Temp Pulse Resp B/P (MAP) Pulse Ox O2 Delivery O2 Flow Rate FiO2 09/18/17 12:00 98.6 90 20 84/50 (61) 93 09/18/17 08:00 98.5 84 20 81/54 (63) 95 85/53 (64) 09/18/17 04:24 87 09/18/17 04:00 98.1 90 18 90/54 (66) 93 09/18/17 00:00 98.8 94 20 97/57 (70) 96 09/17/17 23:56 93 09/17/17 20:51 Nasal Cannula 3.00 09/17/17 20:05 Room Air 09/17/17 20:00 98.0 100 20 110/55 (73) 96 09/17/17 19:00 97.8 98 20 101/58 (72) 100 Room Air 09/17/17 18:45 95 20 101/58 (72) 100 Room Air 09/17/17 18:30 94 20 101/57 (72) 100 Room Air 09/17/17 18:15 91 20 103/57 (72) 100 09/17/17 18:09 97.8 93 20 102/56 (71) 100 Nasal Cannula 2 Manual Cuff/Auscultation 09/17/17 16:07 86 09/17/17 16:00 98.3 90 16 96/54 (68) 95 -: 09/16/17 0600 09/18/17 0607 Microbiology 09/17/17 Fungal Smear - Final, Resulted NO FUNGAL ELEMENTS SEEN. 09/17/17 Fungal Culture, Resulted Pending 09/17/17 Fungal Smear - Final, Resulted NO FUNGAL ELEMENTS SEEN. 09/17/17 Fungal Culture, Resulted Pending 09/17/17 Acid Fast Stain, Received Pending 09/17/17 Mycobacterial Culture, Received Pending 09/17/17 Gram Stain - Final, Resulted 09/17/17 Wound Culture - Preliminary, Resulted NO GROWTH IN 24 HOURS. 09/17/17 Acid Fast Stain, Received Pending 09/17/17 Mycobacterial Culture, Received Pending 09/17/17 Gram Stain - Final, Resulted 09/17/17 Wound Culture - Preliminary, Resulted NO GROWTH IN 24 HOURS. Physical Exam General Appearance: Well Developed, Obese Neck Neck Exam: Neck Supple Pulmonary Resp Exam: Clear Bilaterally, Breath Sounds Equal Cardiology CV Exam: Regular, Normal Sinus Rhythm Gastrointestinal/Abdomen GI Exam: Soft, Non-Tender, Bowel Sounds Present Extremeties Extremities Exam: Moderate Edema Assessment/Plan Problem List: (1) ESRD (end stage renal disease) ICD Codes: N18.6 - End-stage renal disease Status: Chronic Plan: Patient is on hemodialysis and this will be continued on Sunday, Sunday and Sunday foot surgery with toe amputation done, continue to monitor pt with osteo of foot low BP Low Calcium (2) Osteomyelitis ICD Codes: M86.9 - Osteomyelitis, unspecified Status: Acute Plan: toe amputation done (3) Morbid obesity ICD Codes: E66.01 - Morbid (severe) obesity due to excess calories Status: Chronic (4) Hypotension ICD Codes: I95.9 - Hypotension Status: Resolved Plan: On midodrine Problem Qualifiers (1) Osteomyelitis: Qualified Codes: M86.9 - Osteomyelitis, unspecified Frank Villagran MD Sep 18, 2017 15:30
[2017-09-18] MEDS: traZODone HCL 50 MG TAB PO SCH (21:15)
[2017-09-18] MEDS: ATORVASTATIN 40 MG TAB PO SCH (21:15)
--- NOTE | 2017-09-18 22:20 | HHI.PR ---
Subjective Remarks Patient seen bedside this evening with nurse present. Patient denies pain. Denies N,V,F,Ch. Objective Vital Signs Date Time Temp Pulse Resp B/P (MAP) Pulse Ox O2 Delivery O2 Flow Rate FiO2 09/18/17 20:00 Nasal Cannula 2.00 09/18/17 17:19 93 Nasal Cannula 2.00 09/18/17 15:55 88 09/18/17 12:00 91 09/18/17 12:00 98.6 90 20 84/50 (61) 93 09/18/17 08:00 87 09/18/17 08:00 98.5 84 20 81/54 (63) 95 85/53 (64) 09/18/17 08:00 Nasal Cannula 2.00 09/18/17 04:24 87 09/18/17 04:00 98.1 90 18 90/54 (66) 93 09/18/17 00:00 98.8 94 20 97/57 (70) 96 09/17/17 23:56 93 I/O 09/17/17 09/17/17 09/17/17 09/18/17 09/18/17 09/18/17 07:00 15:00 23:00 07:00 15:00 23:00 Intake Total 270 ml 350 ml 480 ml Output Total 200 ml 1000 ml 5 ml Balance 70 ml -1000 ml 345 ml 480 ml Intake Oral 220 ml 480 ml IV Total 50 ml Other 350 ml Output Urine Total 200 ml Hemodialysis 1000 ml Estimated Blood Loss 5 ml # Voids 0 # Bowel Movements 0 1 Result Diagram: 09/16/17 0600 09/18/17 0607 Imaging Last Impressions Foot X-Ray 09/17/17 0000 Signed Impressions: Service Date/Time: Sunday, September 17, 2017 18:34 - CONCLUSION: The fourth toe has been surgically removed. Postsurgical changes through the other toes unchanged. Romel Fraser MD Procedures s/p right fourth digit amputation Other Results Laboratory Tests Test 09/17/17 06:10 09/18/17 06:07 Blood Urea Nitrogen 60 MG/DL Creatinine 9.71 MG/DL 7.20 MG/DL Random Glucose 163 MG/DL Total Protein 8.1 GM/DL Calcium Level 6.8 MG/DL Sodium Level 135 MEQ/L Potassium Level 4.6 MEQ/L Chloride Level 98 MEQ/L Carbon Dioxide Level 25.9 MEQ/L Anion Gap 11 MEQ/L Estimat Glomerular Filtration Rate 5 ML/MIN 7 ML/MIN Protein Corrected Calcium 6.4 MG/DL Random Vancomycin Level 26.5 COMMENT Objective Remarks Right foot exam: Vasc: DP palpable, PT non palpable to right foot. CLAIM PROCESSING SPECIALIST under 3 secs to digits of the right foot, 3rd/5th. Edema noted to right foot, resolving. Neuro: Gross sensation intact to right foot. No hyperalgesia noted. Derm: 5th digit superficial ulcer noted with no erythem, no edema and no purulent drainage noted. Elle crepitus or fluctuance noted to right 5th digit. MSK: Amputations noted to hallux 2nd, 4th digit of right foot. Abductovarus deformity noted to 5th digit right foot. ROM to right ankle WNL. Decreased medial longitudinal arch. Medications and IVs Current Medications Medications (Trade) Dose Ordered Sig/Mary Grace Route Start Time Stop Time Status Last Admin Pharmacy Profile Note 0 ml @ 0 mls/hr UNSCH OTHER 09/12/17 23:15 (NS Flush) 2 ml UNSCH PRN IV FLUSH 09/12/17 23:15 (NS Flush) 2 ml BID IV FLUSH 09/13/17 09:00 09/18/17 21:16 (Zofran Inj) 4 mg Q6H PRN IVP 09/12/17 23:15 09/14/17 21:37 (Heparin Inj) 5,000 units Q12H SQ 09/12/17 23:15 09/18/17 12:14 (Tylenol) 650 mg Q6H PRN PO 09/12/17 23:15 ([place] 5-325 Mg) 1 tab Q4H PRN PO 09/12/17 23:15 ([place] 7.5-325 Mg) 1 tab Q4H PRN PO 09/12/17 23:15 09/18/17 05:38 (Narcan Inj) 0.4 mg UNSCH PRN IV PUSH 09/12/17 23:15 (Milk Of Magnesia Liq) 30 ml Q12H PRN PO 09/12/17 23:15 (Senokot) 17.2 mg Q12H PRN PO 09/12/17 23:15 (Dulcolax Supp) 10 mg DAILY PRN RECTAL 09/12/17 23:15 (Lactulose Liq) 30 ml DAILY PRN PO 09/12/17 23:15 (Dilaudid Pf Inj) 0.5 mg Q4H PRN IV PUSH 09/12/17 23:15 09/18/17 09:07 (Proair Hfa Inh) 2 puff Q6H PRN INH 09/12/17 23:15 09/14/17 10:22 (Ecotrin Ec) 81 mg DAILY PO 09/13/17 09:00 09/18/17 13:41 (Lipitor) 40 mg HS PO 09/12/17 23:15 09/18/17 21:15 (Wellbutrin) 75 mg DAILY PO 09/13/17 09:00 09/18/17 09:14 (Rocaltrol) 0.5 mcg DAILY PO 09/13/17 09:00 09/18/17 09:15 (Tums Chew) 1,000 mg Q4HR CHEW 09/13/17 00:00 09/18/17 21:15 (Flexeril) 10 mg BID PRN PO 09/12/17 23:15 09/15/17 13:09 (Neurontin) 100 mg TID PO 09/13/17 09:00 09/18/17 17:42 (Synthroid) 50 mcg DAILY@0700 PO 09/13/17 07:00 09/18/17 05:26 (Proamatine) 10 mg TID@07,12,17 PO 09/13/17 07:00 09/18/17 17:42 (Protonix) 40 mg DAILY PO 09/13/17 09:00 09/18/17 13:39 (Desyrel) 150 mg HS PO 09/12/17 23:15 09/18/17 21:15 (Lactinex) 1 tab TID PO 09/13/17 09:00 09/18/17 17:42 (Habitrol 7 Mg Patch.24 Hr) 1 patch DAILY T-DERMAL 09/13/17 09:00 09/18/17 09:15 Miscellaneous Information 1 DAILY T-DERMAL 09/13/17 09:00 09/18/17 12:08 (D50w (Vial) Inj) 50 ml UNSCH PRN IV PUSH 09/13/17 11:30 (Glucagon Inj) 1 mg UNSCH PRN OTHER 09/13/17 11:30 (NovoLOG SUPPLEMENTAL SCALE) 1 ACHS SLIDING SCALE SQ 09/13/17 12:00 09/18/17 13:37 Sodium Chloride 1,000 ml @ 0 mls/hr Q0M PRN OTHER 09/13/17 15:14 (Heparin Inj) 8,000 units UNSCH PRN IV FLUSH 09/13/17 15:15 Sodium Chloride 1,000 ml @ 200 mls/hr Q5H PRN IV 09/13/17 15:14 Sodium Chloride 1,000 ml @ 0 mls/hr Q0M PRN OTHER 09/13/17 15:14 (Mannitol Inj) 12.5 gm UNSCH PRN IV 09/13/17 15:15 Albumin Human 100 ml @ 60 mls/hr UNSCH PRN IV 09/13/17 15:15 09/17/17 09:11 (NS Flush) 5 ml UNSCH PRN IV FLUSH 09/13/17 15:15 (Heparin Inj) UNSCH PRN .XX 09/13/17 15:15 09/17/17 09:12 (Gentamicin (Dialysis) Inj) 20 mg UNSCH PRN OTHER 09/13/17 15:15 09/17/17 09:12 (Zofran Inj) 4 mg UNSCH PRN IV PUSH 09/13/17 15:15 (Tylenol) 650 mg UNSCH PRN PO 09/13/17 15:15 (Benadryl) 25 mg UNSCH PRN PO 09/13/17 15:15 (Nitrostat Sl) 0.4 mg UNSCH PRN SL 09/13/17 15:15 (Catapres) 0.1 mg UNSCH PRN PO 09/13/17 15:15 (Gelfoam 12 Mm/7 Mm Top) 1 foam UNSCH PRN TOP 09/13/17 15:15 (Silvadene 1% Cream (50 Gm)) 1 applic BID TOPICAL 09/13/17 23:00 09/18/17 21:17 (L-M-X 4 Cream) 1 applic BID TOPICAL 09/13/17 23:00 09/18/17 21:16 (Bacitracin Oint Packet) 0.9 gm DAILY TOPICAL 09/14/17 09:00 09/16/17 08:52 (NovoLOG MIX 70/ 30 INJ) 8 units BID@08,17 SQ 09/16/17 17:00 09/18/17 12:11 Assessment and Plan Assessment and Plan 57 year old female s/p right 4th digit amputation DOS: 09/17/17 2/2 osteomyelitis and open ulcer to right 4th digit Patient examined and evaluated with all questions answered Dressing changes to right foot Applied betadine, adaptic, 4x4s, Dolores, NRIAV to right foot Do not remove surgical dressing Weight bearing as tolerated in surgical shoe to the right foot OK to d/c patient per podiatry once OR pathology and cultures are finalized and oral vs. IV abx recommendations made by ID Surgical pathology pending Patient will need to follow within 1 week of discharge with Dr. Naqvi Instructed patient to follow up within 1 week of discharge and to leave dressing clean, dry and intact. Leonie Naqvi DPM Sep 18, 2017 22:20
[2017-09-18 22:33] LABS: AUTOMATED NEUTROPHIL # 8.1 TH/MM3 (1.8-7.7); BASOPHIL # 0.1 TH/MM3 (0-0.2); BASOPHIL % 0.6 % (0.0-2.0); EOSINOPHIL # 0.6 TH/MM3 (0-0.4); EOSINOPHIL % 6.3 % (0.0-4.0); HEMATOCRIT 37.9 % (35.0-46.0); HEMOGLOBIN 11.8 GM/DL (11.6-15.3); LYMPH % 6.1 % (9.0-44.0); LYMPHOCYTE # 0.6 TH/MM3 (1.0-4.8); MEAN CELL VOLUME 90.9 FL (80.0-100.0); MEAN CORPUSCULAR HEMOGLOBIN 28.3 PG (27.0-34.0); MEAN CORPUSCULAR HGB CONC 31.1 % (32.0-36.0); MEAN PLATELET VOLUME 7.1 FL (7.0-11.0); MONOCYTE # 0.9 TH/MM3 (0-0.9); PLATELET COUNT 365 TH/MM3 (150-450); RED BLOOD COUNT 4.17 MIL/MM3 (4.00-5.30); WHITE BLOOD COUNT 10.3 TH/MM3 (4.0-11.0)
--- NOTE | 2017-09-18 23:33 | PD.ID.CON ---
History of Present Illness Service ID Consult Requested By Dr Sawyer Reason for Consult R foot osteo Primary Care Physician No Primary Care Physician Diagnoses: History of Present Illness Pr was seen earlier todayaround 3:30 pm dw Rn Ptr was not giving history and appeared at that time quirte lethargic Her nurse told me that earlier she was much more alert Chart was reviewed in rder to obtain history 57 yo wheel chair bound diabetic female with ESRD/on HD presented for evaluation of right foot pain going for for several months. H/o first digit amputation on the left foot. And remote amptation of 1-2 digits of R foot Patient has a new Vas-Cath that was placed day prior to presentation in her right groin. 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 On presentation pt is afebrile with Leukocytosis of 18 Kk as of 09/12, today WBC are within normal limits She was seen by Dr Wolf (podiatry) who recommended amputation of 4-5 digits anter assessment by [facility] surgeon Dr Dougherty saw her and recommended no vascular interventions and yday she underwent right 4th digit amputation for osteomyelitis and open ulcer to right 4th digit He rcultures are no growth @ 24hrs Review of Systems ROS Limitations: Altered Mental Status (lethargic) Past Family Social History Allergies: Coded Allergies: levofloxacin (Unverified Allergy, Severe, Anaphylaxis, 09/12/17) ANAPHYLAXIS Past Medical History ESRD on HD MWF hypotension on midodrine diet-controlled diabetes CHF COPD hypothyroidism hyperlipidemia anxiety depression hypocalcemia neuropathy Past Surgical History Nonfunctioning AV fistula Cholecystectomy Parathyroidectomy Cataract removal Hysterectomy Appendectomy Right first and second toe amputations Recent right groin permacath placement abdominal peritoneal catheter placement/removed Dental extractions Active Ordered Medications Medications where reviewed in EMR Antibiotics Include: aracelysyn Family History reviewdNon-Contributory. Social History No Tobacco. No ETOH. No Illicit Drugs. Physical Exam Vital Signs Vital Signs Date Time Temp Pulse Resp B/P (MAP) Pulse Ox O2 Delivery O2 Flow Rate FiO2 09/18/17 20:00 Nasal Cannula 2.00 09/18/17 17:19 93 Nasal Cannula 2.00 09/18/17 15:55 88 09/18/17 12:00 91 09/18/17 12:00 98.6 90 20 84/50 (61) 93 09/18/17 08:00 87 09/18/17 08:00 98.5 84 20 81/54 (63) 95 85/53 (64) 09/18/17 08:00 Nasal Cannula 2.00 09/18/17 04:24 87 09/18/17 04:00 98.1 90 18 90/54 (66) 93 09/18/17 00:00 98.8 94 20 97/57 (70) 96 09/17/17 23:56 93 Physical Exam CONSTITUTIONAL/GENERAL: This is a morbidly obese female patient, in no apparent distress. TUBES/LINES/DRAINS: SKIN: No jaundice, rashes, or lesions. Skin temperature appropriate. Not diaphoretic. HEAD: Atraumatic. Normocephalic. EYES: Pupils equal and round and reactive. Extraocular motions intact. No scleral icterus. No injection or drainage. Fundi not examined. ENT: Hearing not tested . Nose without bleeding or purulent drainage. Throat without visible erythema, exudates, masses, or lesions. NECK: Trachea midline. Supple, nontender. No palpable thyroid enlargement or nodularity. CARDIOVASCULAR: Regular rate and rhythm without murmurs, gallops, or rubs. No JVD. Peripheral pulses symmetric. RESPIRATORY/CHEST: Symmetric, unlabored respirations. Clear to auscultation. Breath sounds equal bilaterally. No wheezes, rales, or rhonchi. GASTROINTESTINAL: Abdomen soft, very obese, non-tender, nondistended. No hepato- splenomegaly, or palpable masses. No guarding. Bowel sounds present. MUSCULOSKELETAL: Extremities without clubbing, cyanosis, + chronic appearing BLE edema. R foot with surgical dressing in place intact LYMPHATICS: No palpable cervical or supraclavicular adenopathy. NEUROLOGICAL: Lethargic, difficult to arouse; not follows commands. Moves all extremities. PSYCHIATRIC: unable to assess Laboratory Laboratory Tests Test 09/18/17 06:07 09/18/17 22:24 Creatinine 7.20 Estimat Glomerular Filtration Rate 7 White Blood Count 10.3 Red Blood Count 4.17 Hemoglobin 11.8 Hematocrit 37.9 Mean Corpuscular Volume 90.9 Mean Corpuscular Hemoglobin 28.3 Mean Corpuscular Hemoglobin Concent 31.1 Red Cell Distribution Width 16.0 Platelet Count 365 Mean Platelet Volume 7.1 Neutrophils (%) (Auto) 78.0 Lymphocytes (%) (Auto) 6.1 Monocytes (%) (Auto) 9.0 Eosinophils (%) (Auto) 6.3 Basophils (%) (Auto) 0.6 Neutrophils # (Auto) 8.1 Lymphocytes # (Auto) 0.6 Monocytes # (Auto) 0.9 Eosinophils # (Auto) 0.6 Basophils # (Auto) 0.1 CBC Comment DIFF FINAL Differential Comment Date/Time Source Procedure Growth Status 09/12/17 19:50 Blood Peripheral Aerobic Blood Culture - Final NO GROWTH IN 5 DAYS Complete 09/12/17 19:50 Blood Peripheral Anaerobic Blood Culture - Final NO GROWTH IN 5 DAYS Complete 09/17/17 18:26 Wound Foot Fungal Smear - Final NO FUNGAL ELEMENTS SEEN. Resulted 09/17/17 18:26 Wound Foot Fungal Culture Pending Resulted Result Diagram: 09/18/17 2224 09/18/17 0607 Imaging Last Impressions Foot X-Ray 09/17/17 0000 Signed Impressions: Service Date/Time: Sunday, September 17, 2017 18:34 - CONCLUSION: The fourth toe has been surgically removed. Postsurgical changes through the other toes unchanged. Romel Fraser MD Assessment and Plan Assessment and Plan DFI 4 th right toe with osteomyelitis; chronic osteo by history sp 4 thR toe amputaiton - clx, path pending - will follow path, clx final rec's to follow, anticipate IV abx with Steffany Bell MD Sep 18, 2017 23:33
[2017-09-19] VITALS: BP 106/64; PULSE 88; RESP 18; TEMP 98.5; O2SAT 95
[2017-09-19 03:46] VITALS: PULSE 80
[2017-09-19 04:00] VITALS: BP 101/62; PULSE 83; RESP 18; TEMP 98.6; O2SAT 96
[2017-09-19] MEDS: LEVOTHYROXINE SODIUM 50 MCG TAB PO SCH (06:00)
[2017-09-19] MEDS: CALCIUM CARBONATE 500 MG CHEWABLE TAB CHEW SCH ×3 (06:00→13:56)
[2017-09-19] MEDS: MIDODRINE 5 MG TAB PO SCH ×2 (06:00→13:56)
[2017-09-19] MEDS: ACETAMINOPHEN/HYDROcodone 325 MG/7.5 MG TAB PO PRN ×2 (06:48→16:45)
[2017-09-19 08:00] VITALS: PULSE 76
[2017-09-19] MEDS: INSULIN ASPAR PROT 70/30 1,000 UNITS/10 ML VIAL SQ SCH (08:00)
[2017-09-19] MEDS: INSULIN ASPART SUPPLEMENTAL SCALE SQ SCH ×2 (08:00→12:00)
[2017-09-19 08:07] VITALS: BP 87/55; PULSE 89; RESP 17; TEMP 98.1; O2SAT 91
--- NOTE | 2017-09-19 08:16 | MR ---
cc: GUZMAN BRANCH DPM DATE 09/17/2017 DATE OF 1960 SURGEON Guzman Branch DPM FIRST GRADE TEACHER None PREOPERATIVE DIAGNOSIS Right fourth digit osteomyelitis. POSTOPERATIVE DIAGNOSIS Right fourth digit osteomyelitis. PROCEDURE Right fourth digit amputation. ANESTHESIA LMA with a local infiltrated 1:1, 0.5% Marcaine plain, 1% Lidocaine plain infiltrated about the right foot in digital block fashion 10 cc total. HEMOSTASIS None ESTIMATED BLOOD LOSS Less than 5 cc MATERIALS 2-0 and 3-0 Prolene INJECTABLES None COMPLICATIONS None INDICATION FOR PROCEDURE The patient is a 57-year-old female with a past medical history of diabetes, end-stage renal disease on hemodialysis and neuropathy. The patient has a history of amputation at the right hallux and right second digit has been amputated. The patient states that she noticed increased drainage, redness and pain to the right foot fourth digit before she proceeded to the emergency department. The patient was evaluated by vascular and at this time it was felt that she had enough and decision was made for right fourth digit amputation. X-rays were reviewed. These showed bony erosion with reabsorption noted to the middle and proximal phalanx of the right fourth digit. I discussed with the patient all benefits, risks and complications and alternatives associated with the procedure. The patient is in agreement and would like to more forward with right fourth digit amputation. DESCRIPTION OF THE PROCEDURE The patient was brought back to the operating room and placed on the operating room table in the supine position. A well-padded pneumatic ankle tourniquet was applied to the right ankle. General anesthesia was then induced and locally infiltrated with a 1:1 mixture of 0.5% Marcaine plain and 1% Lidocaine plain was infiltrated about the right foot in a digital block fashion using 10 cc total. The right foot was then prepped and draped in the usual sterile fashion. The right ankle tourniquet was not elevated. Next, attention was then directed to the right foot where the fourth digit was noted to be a hammer toe with open dorsal ulcer and purulent drainage upon compression. At this time, a incision was made to the right foot fourth digit. The incision was deepened through the subcutaneous tissue with care to retract any vital neurovascular structures. This incision was then deepened to bone and he metatarsal phalangeal joint was identified. Medial and lateral collateral ligaments off of the proximal phalanx were then excised to disarticulate the proximal phalanx from the foot metatarsal head. The fourth digit was then passed off the field and sent for pathological analysis. Copious irrigation was then performed at the toe amputation site. A clean rongeur was utilized to take a post-lavage sample for culture of the fourth metatarsal head, as well as a fourth metatarsal head sample was sent to pathology as a proximal clean margin. Soft tissue was then sent to culture as well. The site was then copiously irrigated once again. Vancomycin powder was applied to the site. The skin was then reapproximated with 2-0 and 3-0 Prolene. Betadine soaked Adaptic, 4 x 4's, Dolores and El were then applied to the right foot. The patient tolerated the procedure and anesthesia well. She was transferred to PACU with vital signs stable and neurovascular status intact to the fifth and third digits. We will await all our cultures and pathology to determine final antibiotic outpatient therapy and patient will follow up with me within one week of discharge. She is weight-bearing to tolerated in a surgical shoe. PIERO Garza /12:06 AM /7:36 AM
[2017-09-19] MEDS: PANTOPRAZOLE SOD 40 MG DELAYED RELEASE TAB PO SCH (09:00)
[2017-09-19] MEDS: ASPIRIN EC 81 MG TABEC PO SCH (09:00)
[2017-09-19] MEDS: SILVER SULFADIAZINE 1% CR 50 GM JAR TOPICAL SCH (09:00)
[2017-09-19] MEDS: buPROPion HCL 75 MG TAB PO SCH (09:00)
[2017-09-19] MEDS: SODIUM CHLORIDE 0.9% FLUSH 10 ML FLUSH IV FLUSH SCH (09:00)
[2017-09-19] MEDS: NICOTINE 7 MG/24 HR PATCH T-DERMAL SCH (09:00)
[2017-09-19] MEDS: LACTOBACILLUS ACIDOPHILUS TAB PO SCH ×2 (09:00→13:56)
[2017-09-19] MEDS: CALCITRIOL 0.25 MCG CAP PO SCH (09:00)
[2017-09-19] MEDS: BACITRACIN OINT 0.9 GM PKT TOPICAL SCH (09:00)
[2017-09-19] MEDS: LIDOCAINE 4% CREAM 5 GM TUBE TOPICAL SCH (09:00)
[2017-09-19] MEDS: GABAPENTIN 100 MG CAP PO SCH ×2 (09:00→13:56)
[2017-09-19] MEDS: ALBUMIN 25% INJ 100 ML IV PRN (09:43)
[2017-09-19] MEDS: HEPARIN SODIUM - IV 10,000 UNITS/10 ML VIAL PRN (09:44)
[2017-09-19] MEDS: GENTAMICIN SULFATE (DIALYSIS USE ONLY) 20 MG/2 ML VIAL OTHER PRN (09:44)
--- NOTE | 2017-09-19 10:17 | HHI.PR ---
Subjective Remarks Follow 4th right toe osteomyelitis 09/13/17-patient seen and examined; although complains of toe pain however patient is refusing this AM to have MRI ordered 09/14/17-patient seen and examined, she had hemodialysis this morning, was seen by podiatry and vascular surgery. Currently afebrile. 09/15/17-patient seen and examined, currently nothing by mouth pending amputation of fourth right toe. No acute event overnight. 09/16/17-patient seen and examined, pain to right 4th toe; afebrile. Plan for surgery tomorrow 09/17/17-patient seen and examined, heading to HD this AM and latter on for 4th right toe amputation. NO acute event overnight. BP soft 09/18/17-patient seen and examined, status post right digit fourth toe amputation. Complains of soreness otherwise stable and afebrile. 09/19/17-patient seen and examined, still complains of pain to the left foot Objective Vitals Vital Signs Date Time Temp Pulse Resp B/P (MAP) Pulse Ox O2 Delivery O2 Flow Rate FiO2 09/19/17 08:07 98.1 89 17 87/55 (66) 91 09/19/17 04:00 98.6 83 18 101/62 (75) 96 09/19/17 03:46 80 09/19/17 00:00 98.5 88 18 106/64 (78) 95 09/18/17 23:48 86 09/18/17 20:00 Nasal Cannula 2.00 09/18/17 20:00 98.4 91 18 107/66 (80) 94 09/18/17 19:47 88 09/18/17 17:19 93 Nasal Cannula 2.00 09/18/17 15:55 88 09/18/17 12:00 91 09/18/17 12:00 98.6 90 20 84/50 (61) 93 I/O 09/18/17 09/18/17 09/18/17 09/19/17 09/19/17 09/19/17 07:00 15:00 23:00 07:00 15:00 23:00 Intake Total 480 ml 480 ml Balance 480 ml 480 ml Intake Oral 480 ml 480 ml # Voids 0 0 # Bowel Movements 1 1 Result Diagram: 09/18/17 2224 09/18/17 0607 Imaging Last Impressions Foot X-Ray 1/8/18 0000 Signed Impressions: Service Date/Time: Sunday, September 17, 2017 18:34 - CONCLUSION: The fourth toe has been surgically removed. Postsurgical changes through the other toes unchanged. Romel Fraser MD Objective Remarks GENERAL: NAD SKIN: Warm and dry. HEAD: Normocephalic. EYES: No scleral icterus. No injection or drainage. NECK: Supple, trachea midline. No JVD or lymphadenopathy. CARDIOVASCULAR: Regular rate and rhythm without murmurs, gallops, or rubs. RESPIRATORY: Breath sounds equal bilaterally. No accessory muscle use. GASTROINTESTINAL: Abdomen soft, non-tender, nondistended. MUSCULOSKELETAL: dressing covering right foot BACK: Nontender without obvious deformity. No CVA tenderness. Procedures s/p Right fourth digit amputation 09/17/17 A/P Problem List: (1) Osteomyelitis ICD Code: M86.9 - Osteomyelitis, unspecified Status: Acute (2) ESRD (end stage renal disease) ICD Code: N18.6 - End-stage renal disease Status: Chronic (3) Sepsis ICD Code: A41.9 - Sepsis, unspecified organism Assessment and Plan 57 yrs old female with: Sepsis with Right 4th Toe Osteomyelitis: -Right foot xray shows destruction of the 4th proximal and middle phalanges representing osteomyelitis -s/p Zosyn and continue IV Vanco -Appreciate input from podiatry and s/p Right fourth digit amputation pending pathology report -Pain control with Velpen prn pain scale and IV dilaudid 0.5mg q4h prn breakthrough pain -Will d/c on Bactrim DS as well as Clindamycin Peripheral artery disease Appreciate input from vascular surgery, and will follow patient outpatient for further workup ESRD on HD MWF: received dialysis today 09/12. Follows with design teacher Dr. Villagran. -Nephrology appreciated, continue with hemodialysis Sunday Skin Breakdown of Buttocks: suspect secondary to patient being mostly scooter and bed bound [id number] -Wound care nurse input appreciated Diarrhea -Resolved -C diff PCR p negative -Lactinex tx Diet-Controlled Diabetes Mellitus: chronic. -HA1c 7.3 and continue NovoLog 70/30 8 units twice a day -ISS with [facility] monitoring Chronic hypotension -continue Midodrine 10mg tid COPD: chronic, and no exacerbation -continue Albuterol inhaler q6h prn Hyperlipidemia -continue Statin Hypothyroidism -continue Synthroid Hypocalcemia: acute on chronic -continue Calcium carbonate and calcitriol - s/p 1 g calcium gluconate IV 1 Tobacco Use -counseled on cessation -Nicotine patch DVT Prophylaxis: heparin sq GI Prophylaxis: on protonix Problem Qualifiers (1) Osteomyelitis: Qualified Codes: M86.9 - Osteomyelitis, unspecified Goyo Barney MD Sep 19, 2017 10:17
[2017-09-19] MEDS ORDERED: BACT800T5 PO (10:25)
[2017-09-19] MEDS ORDERED: HYDR-3580 PO (10:25)
[2017-09-19] MEDS ORDERED: Bacitracin Oint Packet TOPICAL (10:25)
[2017-09-19] MEDS ORDERED: CEPH-460 PO (10:25)
[2017-09-19] MEDS ORDERED: CYCL10TA PO (10:25)
[2017-09-19] MEDS ORDERED: NOVOLOGMXP SQ (10:25)
[2017-09-19] MEDS ORDERED: TRAZ50TA12 PO (10:25)
[2017-09-19] MEDS ORDERED: LIDO TOPICAL (10:25)
--- NOTE | 2017-09-19 10:31 | HHI.DS ---
Discharge Summary Admission Date Sep 12, 2017 at 22:34 Discharge Date: Sep 19, 2017 Admitting Diagnosis osteomyelitis, leukocytosis (1) Osteomyelitis ICD Code: M86.9 - Osteomyelitis, unspecified Status: Acute (2) ESRD (end stage renal disease) ICD Code: N18.6 - End-stage renal disease Status: Chronic (3) Sepsis ICD Code: A41.9 - Sepsis, unspecified organism Procedures s/p Right fourth digit amputation 09/17/17 Brief History - From Admission 57-year-old female with history of ESRD on HD MWF, hypotension on midodrine, diet-controlled diabetes, CHF, COPD, hypothyroidism, hyperlipidemia, anxiety/ depression, hypocalcemia, presents with a two-month history of worsening right fourth toe ulcer pain and drainage. Patient reports approximately two months ago she started to notice a "sore" on the dorsal aspect of her right fourth toe with pain limited to just the toe. Then one month ago she started to notice drainage from the wound described as a brown pus. Denies fevers or chills. She did notice some warmth of the foot but denies any erythema. She also had worsening constant throbbing pain from the right 4th toe up to the mid holt with difficulty ambulating over the past month. She has been mostly limited to her scooter and bed, and only able to ambulate 1-2 steps to the restroom. Today she states the pain became unbearable therefore she presented to the ED. She states she was released from Dr. Bustos's primary care service a few months ago and was recently set up to see a PCP through [facility] on 09/18 at 1pm. She felt she could not wait any longer to see a physician regarding her foot. She is followed by victim witness administrator Dr. Villagran. She has history of right 1st and 2nd toe amput[place] due to an infected ulcer. The patient also reports recent diarrhea, 5 episodes yesterday. She denies any recent antibiotic use. She denies any abdominal pain, nausea, or vomiting. She has no other medical complaints at this time including no chest pain, palpitations, shortness of breath, or urinary complaints. CBC/BMP: 09/18/17 2224 09/18/17 0607 Significant Findings Laboratory Tests Test 09/17/17 06:10 09/18/17 06:07 09/18/17 22:24 09/19/17 07:30 Blood Urea Nitrogen 60 MG/DL (7-18) Creatinine 9.71 MG/DL (0.50-1.00) 7.20 MG/DL (0.50-1.00) Random Glucose 163 MG/DL (74-106) Calcium Level 6.8 MG/DL (8.5-10.1) Sodium Level 135 MEQ/L (136-145) Estimat Glomerular Filtration Rate 5 ML/MIN (>89) 7 ML/MIN (>89) Protein Corrected Calcium 6.4 MG/DL (8.5-10.1) Mean Corpuscular Hemoglobin Concent 31.1 % (32.0-36.0) Neutrophils (%) (Auto) 78.0 % (16.0-70.0) Lymphocytes (%) (Auto) 6.1 % (9.0-44.0) Monocytes (%) (Auto) 9.0 % (0.0-8.0) Eosinophils (%) (Auto) 6.3 % (0.0-4.0) Neutrophils # (Auto) 8.1 TH/MM3 (1.8-7.7) Lymphocytes # (Auto) 0.6 TH/MM3 (1.0-4.8) Eosinophils # (Auto) 0.6 TH/MM3 (0-0.4) Imaging Last Impressions Foot X-Ray 09/17/17 0000 Signed Impressions: Service Date/Time: Sunday, September 17, 2017 18:34 - CONCLUSION: The fourth toe has been surgically removed. Postsurgical changes through the other toes unchanged. Romel Fraser MD PE at Discharge GENERAL: NAD SKIN: Warm and dry. HEAD: Normocephalic. EYES: No scleral icterus. No injection or drainage. NECK: Supple, trachea midline. No JVD or lymphadenopathy. CARDIOVASCULAR: Regular rate and rhythm without murmurs, gallops, or rubs. RESPIRATORY: Breath sounds equal bilaterally. No accessory muscle use. GASTROINTESTINAL: Abdomen soft, non-tender, nondistended. MUSCULOSKELETAL: dressing covering right foot BACK: Nontender without obvious deformity. No CVA tenderness. Hospital Course While in hospital, patient was treated for: Sepsis with Right 4th Toe Osteomyelitis: -Right foot xray shows destruction of the 4th proximal and middle phalanges representing osteomyelitis -For which she was initially started on IV antibiotics including vancomycin and Zosyn -Podiatry was consulted and s/p Right fourth digit amputation 09/17/17 pending pathology report -Pain control with [place] prn pain scale and IV dilaudid 0.5mg q4h prn breakthrough pain -Will d/c on Bactrim DS as well as Clindamycin Peripheral artery disease Appreciate input from vascular surgery, and will follow patient outpatient for further workup ESRD on HD MWF: received dialysis today 09/12. Follows with victim witness administrator Dr. Villagran. -Nephrology appreciated, she continued with hemodialysis Sunday Skin Breakdown of Buttocks: suspect secondary to patient being mostly scooter and bed bound [id number] -Wound care nurse input appreciated Diarrhea -Resolved -C diff PCR p negative -Lactinex tx Diet-Controlled Diabetes Mellitus: chronic. -HA1c 7.3 and she was started on NovoLog 70/30 8 units twice a day. Secondary to end-stage renal disease no oral hypoglycemic agents were initiated -ISS with [facility] monitoring Chronic hypotension -She was treated with Midodrine 10mg tid COPD: chronic, and no exacerbation -2 was placed on Albuterol inhaler q6h prn Hyperlipidemia -She was treated with Statin Hypothyroidism -She was treated with Synthroid Hypocalcemia: acute on chronic -She was treated with Calcium carbonate and calcitriol - s/p 1 g calcium gluconate IV 1 Tobacco Use -counseled on cessation -Nicotine patch DVT Prophylaxis: heparin sq GI Prophylaxis: on protonix Pt Condition on Discharge: Stable Discharge Disposition: Discharge to SNF Discharge Time: > 30 minutes Discharge Instructions DIET: Follow Instructions for: Diabetic Diet Activities you can perform: Regular-No Restrictions Follow up Referrals: PCP Follow-up - 2-3 Days Podiatry - 1 Week with Leonie Naqvi DPM Vascular Surgery @ Vascular Surgery with Gaetano Dougherty MD Your follow up appointment is on 10/12/17 at 2:15 in our out pt clinic Your surveillance CALVIN and AVF Eval sonography study is scheduled on 10/09/17 at 0800 in our out pt clinic please call with any questions [phone] New Medications: Cephalexin (Keflex) 500 Mg Cap 500 MG PO Q8H for Infection, #21 CAP 0 Refills Sulfamethoxazole-Trimethoprim (Bactrim DS) 800-160 Mg Tab 1 TAB PO BID for Infection, #14 TAB 0 Refills Cyclobenzaprine (Flexeril) 10 Mg Tab 10 MG PO BID PRN for MUSCLE SPASM, #10 TAB Hydrocodone/Acetaminophen (Hydrocodone-Acetamin 7.5-325) 7.5 Mg-325 Mg Tablet 1 TAB PO Q4H PRN for PAIN SCALE 6 TO 10, #10 TAB Insulin Aspart Protam-Asp 70-30 Inj (Novolog Mix 70-30 Inj) 1,000 Unit/10 Ml Vial 8 UNITS SQ BID@08,17 for Blood Sugar Management, #100 INJECTION Lidocaine Topical (Lmx Plus Topical) 4 % Kit 1 APPLIC TOPICAL BID for Pain Management, #4 KIT Trazodone (Trazodone) 50 Mg Tab 150 MG PO HS for Insomnia, #10 TAB [Bacitracin Oint Packet] () 0.9 GM OINT 0.9 GM TOPICAL DAILY, #1 Continued Medications: Albuterol 8.5 GM Inh (Proair Hfa 8.5 GM Inh) 90 Mcg/Act Aer 2 PUFF INH Q6H PRN for SHORTNESS OF BREATH, #1 INHALER 0 Refills 108 mcg/actuation Aspirin DR (Aspirin EC) 81 Mg Tabdr 81 MG PO DAILY for Prevent Blood Clot, #30 TAB Atorvastatin (Atorvastatin) 40 Mg Tab 40 MG PO HS for Cholesterol Management, #30 TAB 0 Refills Bupropion HCl (Bupropion HCl) 75 Mg Tab 75 MG PO DAILY for Control Depression, TAB 0 Refills Calcitriol (Rocaltrol) 0.25 Mcg Cap 0.5 MCG PO DAILY for hypocalcemia, #30 CAP Calcium Carbonate (Antacid) (Calcium Carbonate (Antacid)) 500 Mg Chew 1000 MG CHEW Q4HR for Calcium Supplement, #120 EA Gabapentin (Gabapentin) 100 Mg Cap 100 MG PO TID, #90 CAP 0 Refills Levothyroxine (Levothyroxine) 50 Mcg Tab 50 MCG PO DAILY for Thyroid, #30 TAB 0 Refills Midodrine (Midodrine) 5 Mg Tab 10 MG PO TID@07,12,17 for VS, #30 TAB Pantoprazole (Pantoprazole) 40 Mg Tab 40 MG PO DAILY for Reflux, #30 TAB 0 Refills Sucralfate (Sucralfate) 1 Gm Tab 1 GM PO BIDAC for Duodenal ulcer, #120 TAB 0 Refills on empty stomach Discontinued Medications: Cyclobenzaprine (Flexeril) 10 Mg Tab 10 MG PO BID PRN for MUSCLE SPASM for 30 Days, #60 TAB 0 Refills Diphenhydramine HCl (Benadryl Allergy) 25 Mg Cap 25 MG PO UNSCH PRN for for hives/itching/anaphylaxis for 7 Days, CAP Trazodone (Trazodone) 50 Mg Tab 150 MG PO HS for Insomnia, #30 TAB Goyo Barney MD Sep 19, 2017 10:31
[2017-09-19 10:37] LABS: CREATININE 9.22 MG/DL (0.50-1.00)
[2017-09-19] MEDS: HEPARIN SODIUM - SQ 10,000 UNITS/ML VIAL SQ SCH (11:15)
--- NOTE | 2017-09-19 14:32 | HHI.NPPN ---
Subjective History of Present Illness ESRD with foot osteomyelitis Review of Systems General Constitutional: Fatigue Musculoskeletal MS: Pain/Stiffness Objective Data Data Vital Signs Date Time Temp Pulse Resp B/P (MAP) Pulse Ox O2 Delivery O2 Flow Rate FiO2 09/19/17 08:07 98.1 89 17 87/55 (66) 91 09/19/17 04:00 98.6 83 18 101/62 (75) 96 09/19/17 03:46 80 09/19/17 00:00 98.5 88 18 106/64 (78) 95 09/18/17 23:48 86 09/18/17 20:00 Nasal Cannula 2.00 09/18/17 20:00 98.4 91 18 107/66 (80) 94 09/18/17 19:47 88 09/18/17 17:19 93 Nasal Cannula 2.00 09/18/17 15:55 88 -: 09/18/17 2224 09/19/17 0730 Physical Exam General Appearance: Well Developed, Obese Neck Neck Exam: Neck Supple Pulmonary Resp Exam: Clear Bilaterally, Breath Sounds Equal Cardiology CV Exam: Regular, Normal Sinus Rhythm Gastrointestinal/Abdomen GI Exam: Soft, Non-Tender, Bowel Sounds Present Extremeties Extremities Exam: Moderate Edema Assessment/Plan Problem List: (1) ESRD (end stage renal disease) ICD Codes: N18.6 - End-stage renal disease Status: Chronic Plan: Patient is on hemodialysis and this will be continued on Sunday, Sunday and Sunday foot surgery with toe amputation done, continue to monitor pt with osteo of foot Patient seen at dialysis ultrafiltration of 1 L as tolerated low BP Low Calcium (2) Osteomyelitis ICD Codes: M86.9 - Osteomyelitis, unspecified Status: Acute Plan: toe amputation done (3) Morbid obesity ICD Codes: E66.01 - Morbid (severe) obesity due to excess calories Status: Chronic (4) Hypotension ICD Codes: I95.9 - Hypotension Status: Resolved Plan: On midodrine Problem Qualifiers (1) Osteomyelitis: Qualified Codes: M86.9 - Osteomyelitis, unspecified Frank Villagran MD Sep 19, 2017 14:32
--- NOTE | 2017-09-19 17:31 | HHI.FF ---
Infusion Therapy Location of Infusion Therapy: Dialysis Center Patient Information Patient Weight 164 kg Diagnosis: Coded Allergies: levofloxacin (Unverified Allergy, Severe, Anaphylaxis, 09/12/17) ANAPHYLAXIS Administer Medication Vancomycin 1.5 grams IV q 48 hours w/Hemodialysis M,W,F Start Treatment: Sep 21, 2017 Stop Treatment: Nov 16, 2017 Additional Information Venous access: Other (dialysis catheter) Additional Instructions [x] Peripheral flush and dressing changes per protocol [x] Implanted port and central line inspector: * Implanted port: 10 ml Normal Saline followed by 5 ml Heparin 100 units/ml Heparin flush after each use and monthly to maintain. [] May leave port accessed during therapy. [] May leave peripheral site accessed for duration of therapy. [x] If patient has SOB or respiratory distress, check oxygen saturation. If less than 90% or clinical signs of respiratory distress, administer oxygen at 2 L/min. via nasal cannula and notify physician. [x] Anaphylaxis/Reaction orders: * Stop infusion. * Keep IV line open with saline flush. * Notify physician. * Monitor vital signs every 15 minutes until symptoms resolve. * Check Oxygen saturation; Oxygen at 2 L/min. via nasal cannula if less than 90% or clinical signs of respiratory distress. * Administer diphenhydramine (Benadryl) 25 mg IV STAT, (unless patient has received as pre-med). May repeat once, if necessary. * Solu-Cortef 250 mg IVP over 30-60 seconds, use 100 mg vials for each dissolution. * Epinephrine (1mg/1 ml) 0.3 mg subcutaneously or IVP now with any signs of respiratory distress. * Check with physician for new additional pre-med orders if patient is re- challenged or re-treated. [x] May remove PICC line when treatment complete, after confirming with Physician. [x] If the patient is admitted to the hospital, the ED, or transferred via [facility] , complete transfer form including medication reconciliation order sheet. Laboratory Tests Weekly Labs: CBC w/diff, Vancomycin Trough (every Sunday ) Steffany Nicolas MD Sep 19, 2017 17:31
== END 2017-09-19 16:57 | DRG 853 ==
LOC: NEPE 15:52 → NEDA 22:34 → N04A 23:35
PROVIDERS: ADMIT Hospitalist; ATTEND Hospitalist
PROC: 5A1D70Z Performance of Urinary Filtration, Intermittent, Less than 6 Hours Per Day (ICD-10-PCS; 2017-09-14)
PROC: 0Y6M0ZD Detachment at Right Foot, Partial 4th Ray, Open Approach (ICD-10-PCS; principal; 2017-09-17 16:58)
DX: A41.9 Sepsis, unspecified organism (principal); N18.6 End stage renal disease; I13.2 Hypertensive heart and chronic kidney disease with heart failure and with stage 5 chronic kidney disease, or end stage renal disease; I95.89 Other hypotension; T82.510A Breakdown (mechanical) of surgically created arteriovenous fistula, initial encounter; E11.22 Type 2 diabetes mellitus with diabetic chronic kidney disease; M86.9 Osteomyelitis, unspecified; E11.69 Type 2 diabetes mellitus with other specified complication; E11.621 Type 2 diabetes mellitus with foot ulcer; E66.01 Morbid (severe) obesity due to excess calories; F17.210 Nicotine dependence, cigarettes, uncomplicated; Y71.2 Prosthetic and other implants, materials and accessory cardiovascular devices associated with adverse incidents; G47.30 Sleep apnea, unspecified; J44.9 Chronic obstructive pulmonary disease, unspecified; I50.9 Heart failure, unspecified; Z99.2 Dependence on renal dialysis; Z99.3 Dependence on wheelchair; E03.9 Hypothyroidism, unspecified; E78.5 Hyperlipidemia, unspecified; F32.9 Major depressive disorder, single episode, unspecified; F41.9 Anxiety disorder, unspecified; L97.519 Non-pressure chronic ulcer of other part of right foot with unspecified severity; E11.65 Type 2 diabetes mellitus with hyperglycemia; E11.51 Type 2 diabetes mellitus with diabetic peripheral angiopathy without gangrene; E11.40 Type 2 diabetes mellitus with diabetic neuropathy, unspecified; E83.51 Hypocalcemia; K21.9 Gastro-esophageal reflux disease without esophagitis; Z74.01 Bed confinement status; S31.809A Unspecified open wound of unspecified buttock, initial encounter; X58.XXXA Exposure to other specified factors, initial encounter; Y93.9 Activity, unspecified; Y92.009 Unspecified place in unspecified non-institutional (private) residence as the place of occurrence of the external cause; R19.7 Diarrhea, unspecified
CPT/HCPCS: 73630; 80048; 80053; 80202; 82565; 82948; 83036; 83605; 84155; 85025; 86403; 87015; 87040; 87070; 87102; 87116; 87176; 87205; 87206; 88304; 88305; 88307; 88311; 90935; 93005; 93922; 94664; 96365; 96374; 96375; J0610; J1100; J1170; J1580; J1644; J1815; J2250; J2370; J2405; J2543; J3010; J3370; J7040; J7050; P9047

== ENCOUNTER 2017-11-05 14:21 | Inpatient (IN) | payer MEDICARE, OTHER ==
[~2017-11-05] VITALS: Ht 167.6 cm; Wt 149.5 kg
[~2017-11-05 14:21] MED LIST changes: +BACT800T5 PO; -BENA25CA4 PO; +Bacitracin Oint Packet TOPICAL; +CEPH-460 PO; +HYDR-3580 PO; -IBUP1TAB7 PO; +LIDO TOPICAL; +NOVOLOGMXP SQ
[2017-11-05 14:46] VITALS: BP 101/56; PULSE 107; RESP 24; TEMP 98.3; O2SAT 96
--- NOTE | 2017-11-05 15:07 | PD ---
HPI Chief Complaint: Pain: Acute or Chronic Time Seen by Provider: 14:37 Travel History International Travel<30 days: No Contact w/Intl Traveler<30days: No Traveled to known affect area: No History of Present Illness HPI 57-year-old female presents to the emergency department for evaluation of sacral ulcer and also to the right heel. Patient was discharged September 19, 2017 after she had osteomyelitis, sepsis and right fourth digit amputation on September 17, 2017. She states that since then, she has been told that she cannot ambulate and has been lying in bed. Due to this, she has developed stage I ulcer to the sacral area and right heel. Patient has history of end-stage renal disease on hemodialysis Sunday, Sunday, Sunday, hypertension, diet- controlled diabetes, CHF, COPD, hypothyroidism, hyperlipidemia, anxiety/ depression, hypocalcemia. Patient denies any fevers or chills. No chest pain or shortness of breath. Abdominal pain. Nausea, vomiting, diarrhea. She states she has upcoming appointment with her head sugar reprocess operator regarding her foot. Current pain is 8/10 without radiation. She states that she is not currently on antibiotics. She does take a pain pill, but cannot recall what it is. She states it does not work. Her oiler helper is Dr. Villagran. Moderate severity. PFSH Past Medical History Hx Anticoagulant Therapy: No Anemia: Yes Arthritis: Yes Asthma: Yes Autoimmune Disease: No Blood Disorders: No Anxiety: Yes Depression: Yes Heart Rhythm Problems: No Cancer: No Cardiovascular Problems: Yes (CHF, hyperlipidemia) High Cholesterol: Yes Chemotherapy: No Chest Pain: Yes (OCCASIONALLY) Congestive Heart Failure: Yes COPD: Yes Cerebrovascular Accident: No Diabetes: Yes Patient Takes Glucophage: No Dialysis: Yes (M/W/F) Diminished Hearing: No Endocrine: Yes Gastrointestinal Disorders: Yes (ULCERS) GERD: Yes Glaucoma: No Genitourinary: Yes (ESRD, Dialysis) Headaches: Yes Hepatitis: No Hiatal Hernia: No Hypertension: Yes Immune Disorder: No Implanted Vascular Access Dvce: Yes (PERMACATH R GROIN FOR DIALYSIS) Kidney Stones: No Musculoskeletal: Yes Neurologic: Yes Psychiatric: Yes Reproductive: No Respiratory: Yes (COPD, asthma) Immunizations Current: Yes Migraines: No Myocardial Infarction: No Pneumonia: Yes (HX) Radiation Therapy: No Renal Failure: Yes (CRF) Seizures: No Sickle Cell Disease: No Sleep Apnea: Yes Thyroid Disease: Yes Ulcer: Yes Tetanus Vaccination: > 5 Years Influenza Vaccination: Yes PNEUMOCCOCAL Vaccine (Year): 3 Menopausal: Yes : 3 Para: 3 Miscarriage: 0 : 0 Past Surgical History Abdominal Surgery: Yes AICD: No Appendectomy: Yes Arteriovenous Shunt: Yes (right femoral ) Body Medical Devices: Old nonfunctioning NANCY fistula. Current- Permacath Right Groin Cardiac Surgery: No Cholecystectomy: Yes Ear Surgery: No Endocrine Surgery: Yes (THYROIDECTOMY) Eye Surgery: Yes (LASIK right cataract removed / left removed) Genitourinary Surgery: Yes (Peritoneal Abdominal Catheter removed april 2015) Gynecologic Surgery: Yes (Partial Hysterectomy and Appendectomy ) Hysterectomy: Yes (PARTIAL ) Insulin Pump: No Joint Replacement: No Neurologic Surgery: No Oral Surgery: Yes (ALL TEETH REMOVED) Pacemaker: No Thoracic Surgery: No Other Surgery: Yes (GREAT TOE AMPUTATION R/L FOOT) Social History Alcohol Use: No Tobacco Use: Yes (09/11 PPD) Substance Use: No Allergies-Medications (Allergen,Severity, Reaction): Coded Allergies: levofloxacin (Unverified Allergy, Severe, Anaphylaxis, 09/12/17) ANAPHYLAXIS Reported Meds & Prescriptions Reported Meds & Active Scripts Active Novolog Mix 70-30 Inj (Insulin Aspart Prota 70%/Aspart 30%) 1,000 Unit/10 Ml Vial 8 Units SQ BID@08,17 Flexeril (Cyclobenzaprine HCl) 10 Mg Tab 10 Mg PO BID PRN Calcium Carbonate (Antacid) 500 Mg Chew 1,000 Mg CHEW Q4HR Aspirin EC (Aspirin) 81 Mg Tabdr 81 Mg PO DAILY Reported Combivent Respimat Inh (Ipratropium-Albuterol Inh) 20-100 Snf/Act Aero 2 Puff INH BID Gabapentin 300 Mg Cap 300 Mg PO HS Trazodone (Trazodone HCl) 100 Mg Tablet 100 Mg PO HS Calcium Carbonate 500 Mg Calcium (1250 Mg) Tab 2,000 Mg PO Q8HR 1,250 mg calcium carbonate (500 mg elemental calcium) Midodrine 10 Mg Tab 10 Mg PO DAILY Bupropion HCl ER 24 HR (Bupropion HCl) 150 Mg Tab 300 Mg PO DAILY Atorvastatin (Atorvastatin Calcium) 10 Mg Tab 10 Mg PO HS Pantoprazole (Pantoprazole Sodium) 40 Mg Tab 40 Mg PO DAILY Review of Systems Except as stated in HPI: all other systems reviewed are Neg Physical Exam Narrative GENERAL: Well-nourished, well-developed obese female patient, afebrile. SKIN: Focused skin assessment warm/dry. Patient states one ulcer to the sacral area and stage I ulcer to the posterior right heel. Patient is status post amputation to the right fourth toe with sutures in place. No drainage. Patient has dialysis catheter to right groin. HEAD: Normocephalic. Atraumatic. EYES: No scleral icterus. No injection or drainage. NECK: Supple, trachea midline. No JVD or lymphadenopathy. CARDIOVASCULAR: Regular rate and rhythm without murmurs, gallops, or rubs. RESPIRATORY: Breath sounds equal bilaterally. No accessory muscle use. Lungs sounds clear to auscultation. GASTROINTESTINAL: Abdomen soft, non-tender, nondistended. MUSCULOSKELETAL: No cyanosis, or edema. BACK: Nontender without obvious deformity. No CVA tenderness. Data Data Last Documented VS Vital Signs Date Time Temp Pulse Resp B/P (MAP) Pulse Ox O2 Delivery O2 Flow Rate FiO2 11/05/17 14:46 98.3 107 24 101/56 (71) 96 Orders Orders Complete Blood Count With Diff (11/05/17 15:01) Comprehensive Metabolic Panel (11/05/17 15:01) Prothrombin Time / Inr (Pt) (11/05/17 15:01) Act Partial Throm Time (Ptt) (11/05/17 15:01) Lactic Acid Sepsis Protocol (11/05/17 16:02) Blood Culture (11/05/17 16:02) Insulin Human Regular Inj (Novolin R Inj (11/05/17 16:15) Dextrose 50% In Dalila (Vial) Inj (D50w (Vi (11/05/17 16:15) Calcium Gluconate Inj (Calcium Gluconate (11/05/17 16:15) Vancomycin Inj (Vancomycin Inj) (11/05/17 16:15) Admit Order (Ed Use Only) (11/05/17 16:15) Place In Observation (11/05/17 ) Vital Signs (Adult) Q4H (11/05/17 16:15) Activity Oob With Assistance (11/05/17 16:15) Senior Design Engineer / Telemetry .CONTINUOUS (11/05/17 16:15) Diet 1800 Ada Cons Carb (11/05/17 Dinner) Diet Renal (11/05/17 Dinner) Sodium Chloride 0.9% Flush (Ns Flush) (11/05/17 16:15) Sodium Chloride 0.9% Flush (Ns Flush) (11/05/17 21:00) Basic Metabolic Panel (Bmp) (11/06/17 06:00) Complete Blood Count With Diff (11/06/17 06:00) Pt Request For Service (11/05/17 16:15) Case Management Consult (11/05/17 16:15) Naloxone Inj (Narcan Inj) (11/05/17 16:15) Bedside Glucose BRI.CSUGAR (11/05/17 16:15) Blood Glucose Goal (Criteria) (11/05/17 16:15) Hypoglycemia 70 Mg/Dl Or < (11/05/17 16:15) Notify Dr: Other (11/05/17 16:15) Dextrose 50% In [place] (Vial) Inj (D50w (Vi (11/05/17 16:15) Glucagon Inj (Glucagon Inj) (11/05/17 16:15) Insulin Aspart Supplemtl Scale (Novolog (11/05/17 17:00) Labs Laboratory Tests Test 11/05/17 15:10 White Blood Count 23.6 TH/MM3 Red Blood Count 4.63 MIL/MM3 Hemoglobin 12.9 GM/DL Hematocrit 42.4 % Mean Corpuscular Volume 91.6 FL Mean Corpuscular Hemoglobin 27.8 PG Mean Corpuscular Hemoglobin Concent 30.3 % Red Cell Distribution Width 18.2 % Platelet Count 394 TH/MM3 Mean Platelet Volume 7.8 FL Neutrophils (%) (Auto) 89.1 % Lymphocytes (%) (Auto) 3.0 % Monocytes (%) (Auto) 4.8 % Eosinophils (%) (Auto) 2.8 % Basophils (%) (Auto) 0.3 % Neutrophils # (Auto) 21.0 TH/MM3 Lymphocytes # (Auto) 0.7 TH/MM3 Monocytes # (Auto) 1.1 TH/MM3 Eosinophils # (Auto) 0.7 TH/MM3 Basophils # (Auto) 0.1 TH/MM3 CBC Comment DIFF FINAL Differential Comment Prothrombin Time 10.5 SEC Prothromb Time International Ratio 1.0 RATIO Activated Partial Thromboplast Time 49.9 SEC Blood Urea Nitrogen 39 MG/DL Creatinine 7.03 MG/DL Random Glucose 189 MG/DL Total Protein 9.4 GM/DL Albumin 2.7 GM/DL Calcium Level 8.3 MG/DL Alkaline Phosphatase 77 U/L Aspartate Amino Transf (AST/SGOT) 38 U/L Alanine Aminotransferase (ALT/SGPT) 17 U/L Total Bilirubin 0.5 MG/DL Sodium Level 134 MEQ/L Potassium Level 5.7 MEQ/L Chloride Level 99 MEQ/L Carbon Dioxide Level 25.5 MEQ/L Anion Gap 10 MEQ/L Estimat Glomerular Filtration Rate 7 ML/MIN MDM Medical Decision Making Medical Screen Exam Complete: Yes Emergency Medical Condition: Yes Medical Record Reviewed: Yes Differential Diagnosis Pressure ulcer versus cellulitis versus sepsis Narrative Course 57-year-old female presents to the emergency department for evaluation of ulcer to her sacral area and right posterior heel after being in bed due to surgery on the right foot. She denies any other symptoms or complaints at this time. CBC, CMP, PTT, PT/INR ordered and pending. CBC shows leukocytosis 23.6. CMP shows hyperkalemia 5.7, BUN 39, creatinine 7.03. Coags show no acute abnormality. Due to leukocytosis, lactic acid and blood cultures 2 are ordered and pending. Patient is given vancomycin 1 g IV. She is given 10 units IV regular insulin, 1 amp of D50, 1 g IV calcium gluconate for hyperkalemia. Dr. Yuan accepted admission. Diagnosis Primary Impression: Leukocytosis Qualified Codes: D72.829 - Elevated white blood cell count, unspecified Additional Impressions: Hyperkalemia End stage renal disease Admitting Information Admitting Physician Requests: Livia Garza Nov 05, 2017 15:07
[2017-11-05 15:34] LABS: BASOPHIL # 0.1 TH/MM3 (0-0.2); BASOPHIL % 0.3 % (0.0-2.0); EOSINOPHIL # 0.7 TH/MM3 (0-0.4); EOSINOPHIL % 2.8 % (0.0-4.0); HEMATOCRIT 42.4 % (35.0-46.0); HEMOGLOBIN 12.9 GM/DL (11.6-15.3); LYMPHOCYTE # 0.7 TH/MM3 (1.0-4.8); MEAN CELL VOLUME 91.6 FL (80.0-100.0); MEAN CORPUSCULAR HEMOGLOBIN 27.8 PG (27.0-34.0); MEAN CORPUSCULAR HGB CONC 30.3 % (32.0-36.0); MEAN PLATELET VOLUME 7.8 FL (7.0-11.0); MONO % 4.8 % (0.0-8.0); MONOCYTE # 1.1 TH/MM3 (0-0.9); NEUT % 89.1 % (16.0-70.0); PLATELET COUNT 394 TH/MM3 (150-450); RED BLOOD COUNT 4.63 MIL/MM3 (4.00-5.30); RED CELL DISTRIBUTION WIDTH 18.2 % (11.6-17.2); WHITE BLOOD COUNT 23.6 TH/MM3 (4.0-11.0)
[2017-11-05 15:37] LABS: PROTHROMBIN TIME - PATIENT 10.5 SEC (9.8-11.6)
[2017-11-05 15:46] LABS: ALKALINE PHOSPHATASE 77 U/L (45-117); TOTAL BILIRUBIN ADULT 0.5 MG/DL (0.2-1.0); TOTAL PROTEIN 9.4 GM/DL (6.4-8.2)
[2017-11-05 15:47] LABS: ALBUMIN 2.7 GM/DL (3.4-5.0); ALT (GPT) 17 U/L (10-53); AST (GOT) 38 U/L (15-37); BICARBONATE 25.5 MEQ/L (21.0-32.0); BLOOD UREA NITROGEN 39 MG/DL (7-18); CALCIUM 8.3 MG/DL (8.5-10.1); CHLORIDE 99 MEQ/L (98-107); CREATININE 7.03 MG/DL (0.50-1.00); GLOMERULAR FILTRATION RATE 7 ML/MIN (>89); GLUCOSE,RANDOM 189 MG/DL (74-106); SODIUM (NA) 134 MEQ/L (136-145)
[2017-11-05] MEDS ORDERED: NALOXONE HCL 0.4 MG/ML AMP IV PUSH PRN (16:15)
[2017-11-05] MEDS ORDERED: GLUCAGON 1 MG/ML VIAL OTHER PRN (16:15)
[2017-11-05] MEDS ORDERED: CALCIUM GLUCONATE 10% 1 GM/10 ML VIAL IV PUSH ONE (16:15)
[2017-11-05] MEDS ORDERED: DEXTROSE 50% IN WATER 50 ML VIAL(D50) IV PUSH PRN (16:15)
[2017-11-05] MEDS ORDERED: DEXTROSE 50% IN WATER 50 ML VIAL(D50) IV PUSH ONE (16:15)
[2017-11-05] MEDS ORDERED: SODIUM CHLORIDE 0.9% FLUSH 10 ML FLUSH IV FLUSH PRN ×2 (16:15→18:30)
[2017-11-05] MEDS ORDERED: VANCOMYCIN INJ 1,000 MG in SODIUM CHLOR 0.9% 250 ML INJ 250 ML IV ONE (16:15)
[2017-11-05] MEDS ORDERED: INSULIN HUMAN REGULAR 1,000 UNITS/10 ML VIAL IV PUSH ONE (16:15)
--- NOTE | 2017-11-05 16:19 | PD ---
Physical Exam Date Seen by Provider: Nov 05, 2017 Time Seen by Provider: 16:16 Narrative 57-year-old female came to the emergency room by EMS from the dialysis center. Patient is in end-stage renal disease and hemodialysis dependent. In the middle of her dialysis she asked him to stop since her lower back and right foot was hurting. Patient has developed some decubitus ulcer in these areas. She has had this pain for a while and it was getting worse as per the patient. Patient seemed uncomfortable. Vitals were relatively stable. She is seen by my nurse practitioner and I'm supervising her. Patient had stage II ulcers in the sacral area as well as right foot heel. Patient also had her right fourth toe amputated about a month ago for possible myelitis. Workup shows significant leukocytosis which raises the concern for possible osteomyelitis especially in the right amputated toe. Patient is getting IV vancomycin. There is a lactic acid pending. Patient has been admitted to the hospitalist. Data Data Last Documented VS Vital Signs Date Time Temp Pulse Resp B/P (MAP) Pulse Ox O2 Delivery O2 Flow Rate FiO2 11/05/17 14:46 98.3 107 24 101/56 (71) 96 Orders Orders Complete Blood Count With Diff (11/05/17 15:01) Comprehensive Metabolic Panel (11/05/17 15:01) Prothrombin Time / Inr (Pt) (11/05/17 15:01) Act Partial Throm Time (Ptt) (11/05/17 15:01) Lactic Acid Sepsis Protocol (11/05/17 16:02) Blood Culture (11/05/17 16:02) Insulin Human Regular Inj (Novolin R Inj (11/05/17 16:15) Dextrose 50% In Dalila (Vial) Inj (D50w (Vi (11/05/17 16:15) Calcium Gluconate Inj (Calcium Gluconate (11/05/17 16:15) Vancomycin Inj (Vancomycin Inj) (11/05/17 16:15) Admit Order (Ed Use Only) (11/05/17 16:15) Place In Observation (11/05/17 ) Vital Signs (Adult) Q4H (11/05/17 16:15) Activity Oob With Assistance (11/05/17 16:15) Nut Process Helper / Telemetry .CONTINUOUS (11/05/17 16:15) Diet 1800 Ada Cons Carb (11/05/17 Dinner) Diet Renal (11/05/17 Dinner) Sodium Chloride 0.9% Flush (Ns Flush) (11/05/17 16:15) Sodium Chloride 0.9% Flush (Ns Flush) (11/05/17 21:00) Basic Metabolic Panel (Bmp) (11/06/17 06:00) Complete Blood Count With Diff (11/06/17 06:00) Pt Request For Service (11/05/17 16:15) Case Management Consult (11/05/17 16:15) Naloxone Inj (Narcan Inj) (11/05/17 16:15) Bedside Glucose BRI.CSUGAR (11/05/17 16:15) Blood Glucose Goal (Criteria) (11/05/17 16:15) Hypoglycemia 70 Mg/Dl Or < (11/05/17 16:15) Notify Dr: Other (11/05/17 16:15) Dextrose 50% In Dalila (Vial) Inj (D50w (Vi (11/05/17 16:15) Glucagon Inj (Glucagon Inj) (11/05/17 16:15) Insulin Aspart Supplemtl Scale (Novolog (11/05/17 17:00) Labs Laboratory Tests Test 11/05/17 15:10 White Blood Count 23.6 TH/MM3 Red Blood Count 4.63 MIL/MM3 Hemoglobin 12.9 GM/DL Hematocrit 42.4 % Mean Corpuscular Volume 91.6 FL Mean Corpuscular Hemoglobin 27.8 PG Mean Corpuscular Hemoglobin Concent 30.3 % Red Cell Distribution Width 18.2 % Platelet Count 394 TH/MM3 Mean Platelet Volume 7.8 FL Neutrophils (%) (Auto) 89.1 % Lymphocytes (%) (Auto) 3.0 % Monocytes (%) (Auto) 4.8 % Eosinophils (%) (Auto) 2.8 % Basophils (%) (Auto) 0.3 % Neutrophils # (Auto) 21.0 TH/MM3 Lymphocytes # (Auto) 0.7 TH/MM3 Monocytes # (Auto) 1.1 TH/MM3 Eosinophils # (Auto) 0.7 TH/MM3 Basophils # (Auto) 0.1 TH/MM3 CBC Comment DIFF FINAL Differential Comment Prothrombin Time 10.5 SEC Prothromb Time International Ratio 1.0 RATIO Activated Partial Thromboplast Time 49.9 SEC Blood Urea Nitrogen 39 MG/DL Creatinine 7.03 MG/DL Random Glucose 189 MG/DL Total Protein 9.4 GM/DL Albumin 2.7 GM/DL Calcium Level 8.3 MG/DL Alkaline Phosphatase 77 U/L Aspartate Amino Transf (AST/SGOT) 38 U/L Alanine Aminotransferase (ALT/SGPT) 17 U/L Total Bilirubin 0.5 MG/DL Sodium Level 134 MEQ/L Potassium Level 5.7 MEQ/L Chloride Level 99 MEQ/L Carbon Dioxide Level 25.5 MEQ/L Anion Gap 10 MEQ/L Estimat Glomerular Filtration Rate 7 ML/MIN [facility] Supervised Visit with PARVIZ: Onel Motley MD Nov 05, 2017 16:19
[2017-11-05] MEDS ORDERED: TRAZ100T10 PO (16:35)
[2017-11-05] MEDS ORDERED: CALC12502 PO (16:35)
[2017-11-05] MEDS ORDERED: BUPR150T3 PO (16:35)
[2017-11-05] MEDS ORDERED: ATOR10TA15 PO (16:35)
[2017-11-05] MEDS ORDERED: MIDO10TA PO (16:35)
[2017-11-05] MEDS ORDERED: GABA300C5 PO (16:35)
[2017-11-05] MEDS ORDERED: IPRAAER INH (16:38)
[2017-11-05 16:57] VITALS: BP 136/58; PULSE 104; RESP 16; O2SAT 98
--- NOTE | 2017-11-05 17:20 | HHI.HP ---
HPI Service [facility] Primary Care Physician No Primary Care Physician Admission Diagnosis leukocytosis, hyperkalemia, ESRD on HD Diagnoses: (1) Leukocytosis (2) Sacral ulcer (3) Diabetes mellitus (4) ESRD on hemodialysis (5) Status post amputation of toe of right foot Chief Complaint: right heel pain and bottock pain Travel History International Travel<30 Days: No Contact w/Intl Traveler <30 Da: No Traveled to Known Affected Are: No Sepsis Criteria SIRS Criteria (2 or more): Heart rate over 90, WBC > 10406, < 4000 or > 10% bands Criteria Outcome: Meets SIRS criteria History of Present Illness Written by Laura Greco, acting as scribe for Dr. Yuan on 11/05/17 at 17:05. 57-year-old female with PMH of hypotension, CHF, hypothyroidism , HLD, ESRD on HD, DM, neuropathy and COPD on chronic home O2 who presents to the the ED with complaints of left heel pain and tailbone pain. Medical record reviewed, patient was recently admitted on 09/12/17 and treated for sepsis and right foot fourth toe osteomyelitis. Infectious disease saw the patient while she was hospitalized and she was treated with IV antibiotics during her hospital stay. She was also seen by podiatry and underwent right foot fourth digit amputation on 09/17/17. She was discharged with IV vancomycin which she was to receive 1.5 g IV on Sunday, Sunday, and Sunday during dialysis treatments. End date for vancomycin was November 16. She was also discharged on Keflex 500 mg every 8 hours for 7 days. Patient's discharge date was 09/19/17. Patient states that she was [facility] to detention facility and then went home. She reports being home for about 1 month and being assisted with the help of daughter and grandchildren. Today she reports that the pain in her right heel as well as to the bone was so bad that she came into the hospital. She denies any drainage from right foot amputation site. Last HD treatment was today, she repros her BP will usually be on the low side after HD. Denies any dizziness or lightheadedness. She is visited by wound care nurse twice a week, consisting of cleaning right foot and dressing changes. Denies any fevers, chills, nausea, vomiting, diarrhea, bloody stool, no vaginal discharge. She denies any cough or SOB, she has not been on any steroids recently. Complaints of some hand jerks for the past months. Review of Systems Except as stated in HPI: all other systems reviewed are Neg Past Family Social History Past Medical History ESRD on HD MWF hypotension on midodrine diet-controlled diabetes CHF COPD hypothyroidism hyperlipidemia anxiety depression hypocalcemia neuropathy Past Surgical History Nonfunctioning AV fistula Cholecystectomy Parathyroidectomy Cataract removal Hysterectomy Appendectomy Right first and second toe amputations Recent right groin permacath placement abdominal peritoneal catheter placement/removed Dental extractions Reported Medications Reported Meds & Active Scripts Active Novolog Mix 70-30 Inj (Insulin Aspart Prota 70%/Aspart 30%) 1,000 Unit/10 Ml Vial 8 Units SQ BID@08,17 Flexeril (Cyclobenzaprine HCl) 10 Mg Tab 10 Mg PO BID PRN Calcium Carbonate (Antacid) 500 Mg Chew 1,000 Mg CHEW Q4HR Aspirin EC (Aspirin) 81 Mg Tabdr 81 Mg PO DAILY Reported Combivent Respimat Inh (Ipratropium-Albuterol Inh) 20-100 Assisted/Act Aero 2 Puff INH BID Gabapentin 300 Mg Cap 300 Mg PO HS Trazodone (Trazodone HCl) 100 Mg Tablet 100 Mg PO HS Calcium Carbonate 500 Mg Calcium (1250 Mg) Tab 2,000 Mg PO Q8HR 1,250 mg calcium carbonate (500 mg elemental calcium) Midodrine 10 Mg Tab 10 Mg PO DAILY Bupropion HCl ER 24 HR (Bupropion HCl) 150 Mg Tab 300 Mg PO DAILY Atorvastatin (Atorvastatin Calcium) 10 Mg Tab 10 Mg PO HS Pantoprazole (Pantoprazole Sodium) 40 Mg Tab 40 Mg PO DAILY Allergies: Coded Allergies: levofloxacin (Unverified Allergy, Severe, Anaphylaxis, 09/12/17) ANAPHYLAXIS Family History Mother with diabetes and heart disease Father with prostate cancer Social History Smokes tobacco, off/on since age 18, quit about month ago Alcohol:denies Illicit drug use: denies Lives at home with daughter who helps care for her along with her grandchildren. Physical Exam Vital Signs Vital Signs Date Time Temp Pulse Resp B/P (MAP) Pulse Ox O2 Delivery O2 Flow Rate FiO2 11/05/17 16:57 104 16 136/58 (84) 98 Nasal Cannula 2.00 11/05/17 14:46 98.3 107 24 101/56 (71) 96 Physical Exam GENERAL: This is a well-nourished, well-developed patient, in no apparent distress. SKIN: No rashes, ecchymoses or lesions. Cool and dry. HEAD: Atraumatic. Normocephalic. No temporal or scalp tenderness. EYES: Pupils equal round and reactive. Extraocular motions intact. No scleral icterus. No injection or drainage. ENT: Nose without bleeding, purulent drainage or septal hematoma. Throat without erythema, tonsillar hypertrophy or exudate. Uvula midline. Airway patent. NECK: Trachea midline. No JVD or lymphadenopathy. Supple, nontender, no meningeal signs. CARDIOVASCULAR: Regular rate and rhythm without murmurs, gallops, or rubs. RESPIRATORY: Clear to auscultation. Breath sounds equal bilaterally. No wheezes , rales, or rhonchi. GASTROINTESTINAL: Abdomen soft, non-tender, nondistended. No hepato-splenomegaly , or palpable masses. No guarding. MUSCULOSKELETAL: Extremities without clubbing, cyanosis, or edema. No joint tenderness, effusion, or edema noted. No calf tenderness. Negative Homans sign bilaterally. NEUROLOGICAL: Awake and alert. Cranial nerves II through XII intact. Motor and sensory grossly within normal limits. Five out of 5 muscle strength in all muscle groups. Normal speech. Laboratory Laboratory Tests Test 11/05/17 15:10 11/05/17 16:20 White Blood Count 23.6 Red Blood Count 4.63 Hemoglobin 12.9 Hematocrit 42.4 Mean Corpuscular Volume 91.6 Mean Corpuscular Hemoglobin 27.8 Mean Corpuscular Hemoglobin Concent 30.3 Red Cell Distribution Width 18.2 Platelet Count 394 Mean Platelet Volume 7.8 Neutrophils (%) (Auto) 89.1 Lymphocytes (%) (Auto) 3.0 Monocytes (%) (Auto) 4.8 Eosinophils (%) (Auto) 2.8 Basophils (%) (Auto) 0.3 Neutrophils # (Auto) 21.0 Lymphocytes # (Auto) 0.7 Monocytes # (Auto) 1.1 Eosinophils # (Auto) 0.7 Basophils # (Auto) 0.1 CBC Comment DIFF FINAL Differential Comment Prothrombin Time 10.5 Prothromb Time International Ratio 1.0 Activated Partial Thromboplast Time 49.9 Blood Urea Nitrogen 39 Creatinine 7.03 Random Glucose 189 Total Protein 9.4 Albumin 2.7 Calcium Level 8.3 Alkaline Phosphatase 77 Aspartate Amino Transf (AST/SGOT) 38 Alanine Aminotransferase (ALT/SGPT) 17 Total Bilirubin 0.5 Sodium Level 134 Potassium Level 5.7 Chloride Level 99 Carbon Dioxide Level 25.5 Anion Gap 10 Estimat Glomerular Filtration Rate 7 Lactic Acid Level 2.0 Date/Time Source Procedure Growth Status 11/05/17 16:25 Blood Peripheral Aerobic Blood Culture Pending Received 11/05/17 16:25 Blood Peripheral Anaerobic Blood Culture Pending Received Result Diagram: 11/05/17 1510 11/05/17 1510 Caprini VTE Risk Assessment Caprini VTE Risk Assessment: Mod/High Risk (score >= 2) Caprini Risk Assessment Model Point Value = 1 Point Value = 2 Point Value = 3 Point Value = 5 Age 41-60 Minor surgery BMI > 25 kg/m2 Swollen legs Varicose veins or History of unexplained or recurrent spontaneous Oral contraceptives or hormone replacement Sepsis (< 1 month) Serious lung disease, including pneumonia (< 1 month) Abnormal pulmonary function Acute myocardial infarction Congestive heart failure (< 1 month) History of inflammatory bowel disease Medical patient at bed rest Age 61-74 Arthroscopic surgery Major open surgery (> 45 min) Laparoscopic surgery (> 45 min) Malignancy Confined to bed (> 72 hours) Immobilizing plaster cast Central venous access Age >= 75 History of VTE Family history of VTE Factor V Leiden Prothrombin [id number] Lupus anticoagulant Anticardiolipin antibodies Elevated serum homocysteine Heparin-induced thrombocytopenia Other congenital or acquired thrombophilia Stroke (< 1 month) Elective arthroplasty Hip, pelvis, or leg fracture Acute spinal cord injury (< 1 month) Prophylaxis Regimen Total Risk Factor Score Risk Level Prophylaxis Regimen 0-1 Low Early ambulation 2 Moderate Order ONE of the following: *Sequential Compression Device (SCD) *Heparin 5000 units SQ BID 3-4 Higher Order ONE of the following medications: *Heparin 5000 units SQ TID *Enoxaparin/Lovenox 40 mg SQ daily (WT < 150 kg, CrCl > 30 mL/min) *Enoxaparin/Lovenox 30 mg SQ daily (WT < 150 kg, CrCl > 10-29 mL/min) *Enoxaparin/Lovenox 30 mg SQ BID (WT < 150 kg, CrCl > 30 mL/min) AND/OR *Sequential Compression Device (SCD) 5 or more Highest Order ONE of the following medications: *Heparin 5000 units SQ TID (Preferred with Epidurals) *Enoxaparin/Lovenox 40 mg SQ daily (WT < 150 kg, CrCl > 30 mL/min) *Enoxaparin/Lovenox 30 mg SQ daily (WT < 150 kg, CrCl > 10-29 mL/min) *Enoxaparin/Lovenox 30 mg SQ BID (WT < 150 kg, CrCl > 30 mL/min) AND *Sequential Compression Device (SCD) Assessment and Plan Assessment and Plan 57-year-old female with PMH of hypotension, CHF, hypothyroidism , HLD, ESRD on HD, DM, neuropathy and COPD on chronic home O2 who presents to the the ED with complaints of left heel pain and tailbone pain. Leukocytosis- unknown source -Complaints of increased pain to right heel. Patient currently being treated for osteomyelitis of right foot and is s/p right foot fourth digit amputation on 09/17/17 by -WBC count 23.6 with left shift, previous CBC on 09/18 with normal WBC -Patient afebrile on presentation, denies any fevers or chills at home. Tachycardic with heart rate 107, mets SIRS criteria -Patient given 1 g of IV vancomycin in the ED -Consult placed for , right foot x-ray ordered - Lactic acid 2.0 - BC x2 pending - Continue IV Vanc. by nephrology dosing to be given with HD -Pain control with IV morphine ESRD on HD -HD Sunday, Sunday, Sunday. Last hemodialysis treatment 11/05 -Potassium on admission 5.7, given 10 units of regular insulin IV, 50 mL's of D5W, and 1 g of calcium gluconate in ED -Nephrology consulted, for HD and vanco dosing, appreciate assistance -Continue midodrine for hypotension DM Neuropathy -Hemoglobin A1c from 09/14/17 was 7.3 -Diabetic diet, NovoLog 70/38 units twice daily, Accu-Cheks with insulin sliding scale -Continue home dose gabapentin COPD -Continue nasal cannula O2 DVT prophylaxis-subcu heparin Problem Qualifiers (1) Leukocytosis: Qualified Codes: D72.829 - Elevated white blood cell count, unspecified (2) Diabetes mellitus: Laura Greco Nov 05, 2017 17:20
[2017-11-05] MEDS: INSULIN ASPART SUPPLEMENTAL SCALE SQ SCH ×2 (17:42→21:00)
[2017-11-05] MEDS ORDERED: SODIUM CHLOR 0.9% 1000 ML INJ 1,000 ML IV PRN (18:17)
[2017-11-05] MEDS ORDERED: SODIUM CHLOR 0.9% 1000 ML INJ 1,000 ML OTHER PRN ×2 (18:17)
[2017-11-05 18:27] VITALS: BP 80/50; PULSE 99; RESP 16; TEMP 98.7; O2SAT 95
[2017-11-05] MEDS ORDERED: ACETAMINOPHEN 325 MG TAB PO PRN (18:30)
[2017-11-05] MEDS ORDERED: MANNITOL 12.5 GM/50 ML VIAL IV PRN (18:30)
[2017-11-05] MEDS ORDERED: NITROGLYCERIN 0.4 MG SL 25 TABS/BTL SL PRN (18:30)
[2017-11-05] MEDS ORDERED: HEPARIN SODIUM - IV 10,000 UNITS/10 ML VIAL IV FLUSH PRN (18:30)
[2017-11-05] MEDS ORDERED: GELATIN 12 MM/7 MM FOAM TOP PRN (18:30)
[2017-11-05] MEDS ORDERED: ONDANSETRON HCL 4 MG/2 ML VIAL IV PUSH PRN (18:30)
[2017-11-05] MEDS ORDERED: diphenhydrAMINE HCL 25 MG CAP PO PRN (18:30)
[2017-11-05] MEDS ORDERED: cloNIDine HCL 0.1 MG TAB PO PRN (18:30)
--- NOTE | 2017-11-05 18:30 | PD.CONS ---
HPI Service Nephrology Consult Requested By Dr. Yuan Reason for Consult End-stage renal disease Primary Care Physician Unknown History of Present Illness Patient is a 57-year-old female with history of end-stage renal disease on hemodialysis, diabetes, morbid obesity, COPD who had been admitted with right foot pain patient stated that she had dialysis earlier today but cut short by one hour as she was having unbearable pain, she had a high white cell count and is still using for her to bear Weight, she also has a sacral wound which is hurting. Review of Systems Constitutional: COMPLAINS OF: Fatigue Neurologic: COMPLAINS OF: Abnormal gait Psychiatric: COMPLAINS OF: Anxiety Past Family Social History Allergies: Coded Allergies: levofloxacin (Unverified Allergy, Severe, Anaphylaxis, 09/12/17) ANAPHYLAXIS Past Medical History End-stage renal disease on hemodialysis Morbid obesity Diabetes Hypertension low BP Osteoarthritis of right foot Hyperlipidemia Vascular issues Past Surgical History parathyroidectomy Tenckhoff catheter placement Multiple AV fistulas and grafts Right foot toe amputation Partial Hysterectomy Appendectomy Reported Medications Reported Meds & Active Scripts Active Novolog Mix 70-30 Inj (Insulin Aspart Prota 70%/Aspart 30%) 1,000 Unit/10 Ml Vial 8 Units SQ BID@08,17 Flexeril (Cyclobenzaprine HCl) 10 Mg Tab 10 Mg PO BID PRN Calcium Carbonate (Antacid) 500 Mg Chew 1,000 Mg CHEW Q4HR Aspirin EC (Aspirin) 81 Mg Tabdr 81 Mg PO DAILY Reported Combivent Respimat Inh (Ipratropium-Albuterol Inh) 20-100 Long-Term/Act Aero 2 Puff INH BID Gabapentin 300 Mg Cap 300 Mg PO HS Trazodone (Trazodone HCl) 100 Mg Tablet 100 Mg PO HS Calcium Carbonate 500 Mg Calcium (1250 Mg) Tab 2,000 Mg PO Q8HR 1,250 mg calcium carbonate (500 mg elemental calcium) Midodrine 10 Mg Tab 10 Mg PO DAILY Bupropion HCl ER 24 HR (Bupropion HCl) 150 Mg Tab 300 Mg PO DAILY Atorvastatin (Atorvastatin Calcium) 10 Mg Tab 10 Mg PO HS Pantoprazole (Pantoprazole Sodium) 40 Mg Tab 40 Mg PO DAILY Active Ordered Medications Current Medications Medications (Trade) Dose Ordered Sig/Mary Grace Route Start Time Stop Time Status Last Admin (NS Flush) 2 ml UNSCH PRN IV FLUSH 11/05/17 16:15 (NS Flush) 2 ml BID IV FLUSH 11/05/17 21:00 (Narcan Inj) 0.4 mg UNSCH PRN IV PUSH 11/05/17 16:15 (D50w (Vial) Inj) 50 ml UNSCH PRN IV PUSH 11/05/17 16:15 (Glucagon Inj) 1 mg UNSCH PRN OTHER 11/05/17 16:15 (NovoLOG SUPPLEMENTAL SCALE) 1 ACHS SLIDING SCALE SQ 11/05/17 17:00 11/05/17 17:42 (Morphine Inj) 2 mg Q3H PRN IV PUSH 11/05/17 17:30 (Ecotrin Ec) 81 mg DAILY PO 11/06/17 09:00 (Lipitor) 10 mg HS PO 11/05/17 21:00 (Wellbutrin Sr) 150 mg BID PO 11/05/17 21:00 (Oscal) 2,000 mg Q8HR PO 11/05/17 22:00 (Flexeril) 10 mg BID PRN PO 11/05/17 17:30 (Neurontin) 300 mg HS PO 11/05/17 21:00 (NovoLOG MIX 70/ 30 INJ) 8 units BID@08,17 SQ 11/06/17 08:00 (Proamatine) 10 mg DAILY PO 11/06/17 09:00 (Protonix) 40 mg DAILY PO 11/06/17 09:00 Patient Own Medication PT OWN MED:COMBIVENT RESPIMA... BID INH 11/05/17 21:00 Future Hold (Desyrel) 100 mg HS PO 11/05/17 21:00 Family History Noncontributory Social History Denies smoking or alcohol use Physical Exam Vital Signs Vital Signs Date Time Temp Pulse Resp B/P (MAP) Pulse Ox O2 Delivery O2 Flow Rate FiO2 11/05/17 17:53 11/05/17 16:57 104 16 136/58 (84) 98 Nasal Cannula 2.00 11/05/17 14:46 98.3 107 24 101/56 (71) 96 Physical Exam GENERAL: Well-nourished, well-developed patient. SKIN: Warm and dry. HEAD: Normocephalic. EYES: No scleral icterus. No injection or drainage. NECK: Supple, trachea midline. No JVD or lymphadenopathy. CARDIOVASCULAR: Regular rate and rhythm without murmurs, gallops, or rubs. RESPIRATORY: Breath sounds equal bilaterally. No accessory muscle use. GASTROINTESTINAL: Abdomen soft, non-tender, nondistended. EXTREMITIES: No cyanosis, 1+ edema. Right toe amputation NEUROLOGICAL: Awake, alert, and oriented x 3. Non-focal. Laboratory Laboratory Tests Test 11/05/17 15:10 11/05/17 16:20 White Blood Count 23.6 Red Blood Count 4.63 Hemoglobin 12.9 Hematocrit 42.4 Mean Corpuscular Volume 91.6 Mean Corpuscular Hemoglobin 27.8 Mean Corpuscular Hemoglobin Concent 30.3 Red Cell Distribution Width 18.2 Platelet Count 394 Mean Platelet Volume 7.8 Neutrophils (%) (Auto) 89.1 Lymphocytes (%) (Auto) 3.0 Monocytes (%) (Auto) 4.8 Eosinophils (%) (Auto) 2.8 Basophils (%) (Auto) 0.3 Neutrophils # (Auto) 21.0 Lymphocytes # (Auto) 0.7 Monocytes # (Auto) 1.1 Eosinophils # (Auto) 0.7 Basophils # (Auto) 0.1 CBC Comment DIFF FINAL Differential Comment Prothrombin Time 10.5 Prothromb Time International Ratio 1.0 Activated Partial Thromboplast Time 49.9 Blood Urea Nitrogen 39 Creatinine 7.03 Random Glucose 189 Total Protein 9.4 Albumin 2.7 Calcium Level 8.3 Alkaline Phosphatase 77 Aspartate Amino Transf (AST/SGOT) 38 Alanine Aminotransferase (ALT/SGPT) 17 Total Bilirubin 0.5 Sodium Level 134 Potassium Level 5.7 Chloride Level 99 Carbon Dioxide Level 25.5 Anion Gap 10 Estimat Glomerular Filtration Rate 7 Lactic Acid Level 2.0 Date/Time Source Procedure Growth Status 11/05/17 16:25 Blood Peripheral Aerobic Blood Culture Pending Received 11/05/17 16:25 Blood Peripheral Anaerobic Blood Culture Pending Received Result Diagram: 11/05/17 1510 11/05/17 1510 Assessment and Plan Problem List: (1) ESRD (end stage renal disease) ICD Codes: N18.6 - End-stage renal disease Status: Chronic Plan: Patient received her dialysis today, she did cut short her treatment by one hour her labs showed the potassium 5.7 which is hemolyzed specimen Morning specimen will be checked Follow-up Sunday, Sunday and Sunday schedule (2) Sacral ulcer ICD Codes: L98.429 - Non-pressure chronic ulcer of back with unspecified severity Plan: Patient is getting vancomycin (3) Diabetes mellitus ICD Codes: E11.9 - Type 2 diabetes mellitus without complications Plan: Continue to monitor (4) Hypotension ICD Codes: I95.9 - Hypotension Status: Resolved Plan: Patient takes midodrine (5) Morbid obesity ICD Codes: E66.01 - Morbid (severe) obesity due to excess calories Status: Chronic Problem Qualifiers (1) Diabetes mellitus: Frank Villagran MD Nov 05, 2017 18:30
[2017-11-05] MEDS ORDERED: MIDODRINE 5 MG TAB PO ONE (18:45)
--- NOTE | 2017-11-05 19:21 | RADRPT ---
EXAM DATE/TIME: 11/05/2017 18:25 [facility] COMPARISON: No previous studies available for comparison. INDICATIONS : Ulcer posterior right foot MEDICAL HISTORY : Diabetes mellitus type II. SURGICAL HISTORY : Amputations right foot ENCOUNTER: Initial ACUITY: 4 - 6 days PAIN SCORE: 3/10 LOCATION: Right Foot FINDINGS: Comparison is September 17. There is increased bony erosion at the distal fourth metatarsal which is darrel picious for osteomyelitis. There is previous amputation of the first, second and fourth toes. There is a soft tissue ulceration posterior to the ankle joint. No associated bony abnormality. Exten sive vascular calcifications. CONCLUSION: 1. Erosions at the fourth metatarsal head suspicious for osteomyelitis. Previous amputations as above . 2. Soft tissue ulcer posterior heel just above the calcaneus. Dmitry Anton MD on November 05, 2017 at 19:17 Board Certified Radiologist. This report was verified electronically.
--- NOTE | 2017-11-05 20:11 | PD.CONS ---
History of Present Illness Service Foot and ankle surgery/podiatry Consult Requested By Reason for Consult Right foot infection, right posterior ankle ulcer Primary Care Physician Unknown Diagnoses: History of Present Illness Podiatry consulted for this 57-year-old female with past medical history of osteomyelitis, sepsis, end-stage renal disease on hemodialysis, diet controlled diabetes, CHF, COPD, hypothyroidism, hyperlipidemia, anxiety/depression, hypocalcemia for right foot and heel ulcers. Patient was recently discharged from the hospital September 19, 2017 after she underwent a fourth digit amputation on September 17, 2017. Patient states she was told not to ambulate and has been lying in bed however she was discharged on weightbearing as tolerated in surgical shoe. She did not follow-up in office postoperatively. She denies any nausea, vomiting, fevers, chills, chest pain, or shortness of breath. Patient states she is having pain to the right lower extremity at posterior heel most severe. She states she has been receiving antibiotics at hemodialysis does not recall the name. Review of Systems Constitutional: DENIES: Fever Eyes: DENIES: Blurred vision Ears, nose, mouth, throat: DENIES: Hearing loss, Vertigo Respiratory: DENIES: Cough, Shortness of breath Cardiovascular: DENIES: Chest pain, Syncope Neurologic: DENIES: Headache Psychiatric: DENIES: Confusion Past Family Social History Allergies: Coded Allergies: levofloxacin (Unverified Allergy, Severe, Anaphylaxis, 09/12/17) ANAPHYLAXIS Past Medical History As dictated in HPI Past Surgical History Status post right fourth digit amputation September 17, 2017 Active Ordered Medications Current Medications Medications (Trade) Dose Ordered Sig/Mary Grace Route Start Time Stop Time Status Last Admin (NS Flush) 2 ml UNSCH PRN IV FLUSH 11/05/17 16:15 (NS Flush) 2 ml BID IV FLUSH 11/05/17 21:00 (Narcan Inj) 0.4 mg UNSCH PRN IV PUSH 11/05/17 16:15 (D50w (Vial) Inj) 50 ml UNSCH PRN IV PUSH 11/05/17 16:15 (Glucagon Inj) 1 mg UNSCH PRN OTHER 11/05/17 16:15 (NovoLOG SUPPLEMENTAL SCALE) 1 ACHS SLIDING SCALE SQ 11/05/17 17:00 11/05/17 17:42 (Morphine Inj) 2 mg Q3H PRN IV PUSH 11/05/17 17:30 (Ecotrin Ec) 81 mg DAILY PO 11/06/17 09:00 (Lipitor) 10 mg HS PO 11/05/17 21:00 (Wellbutrin Sr) 150 mg BID PO 11/05/17 21:00 (Oscal) 2,000 mg Q8HR PO 11/05/17 22:00 (Flexeril) 10 mg BID PRN PO 11/05/17 17:30 (Neurontin) 300 mg HS PO 11/05/17 21:00 (NovoLOG MIX 70/ 30 INJ) 8 units BID@08,17 SQ 11/06/17 08:00 (Proamatine) 10 mg DAILY PO 11/06/17 09:00 (Protonix) 40 mg DAILY PO 11/06/17 09:00 Patient Own Medication PT OWN MED:COMBIVENT RESPIMA... BID INH 11/05/17 21:00 Future Hold (Desyrel) 100 mg HS PO 11/05/17 21:00 Sodium Chloride 1,000 ml @ 0 mls/hr Q0M PRN OTHER 11/05/17 18:17 (Heparin Inj) 8,000 units UNSCH PRN IV FLUSH 11/05/17 18:30 Sodium Chloride 1,000 ml @ 200 mls/hr Q5H PRN IV 11/05/17 18:17 Sodium Chloride 1,000 ml @ 0 mls/hr Q0M PRN OTHER 11/05/17 18:17 (Mannitol Inj) 12.5 gm UNSCH PRN IV 11/05/17 18:30 Albumin Human 100 ml @ 60 mls/hr UNSCH PRN IV 11/05/17 18:30 (NS Flush) 5 ml UNSCH PRN IV FLUSH 11/05/17 18:30 (Heparin Inj) UNSCH PRN .XX 11/05/17 18:30 (Gentamicin Inj) 20 mg UNSCH PRN OTHER 11/05/17 18:30 (Zofran Inj) 4 mg UNSCH PRN IV PUSH 11/05/17 18:30 (Tylenol) 650 mg UNSCH PRN PO 11/05/17 18:30 (Benadryl) 25 mg UNSCH PRN PO 11/05/17 18:30 (Nitrostat Sl) 0.4 mg UNSCH PRN SL 11/05/17 18:30 (Catapres) 0.1 mg UNSCH PRN PO 11/05/17 18:30 (Gelfoam 12 Mm/7 Mm Top) 1 foam UNSCH PRN TOP 11/05/17 18:30 (Heparin Inj) 5,000 units Q8HR SQ 11/05/17 22:00 Social History States she has been living at home with her daughter and granddaughter, however it seems she was transferred from a facility Physical Exam Vital Signs Vital Signs Date Time Temp Pulse Resp B/P (MAP) Pulse Ox O2 Delivery O2 Flow Rate FiO2 11/05/17 18:27 98.7 99 16 80/50 (60) 95 11/05/17 18:25 Nasal Cannula 2.00 11/05/17 17:53 11/05/17 16:57 104 16 136/58 (84) 98 Nasal Cannula 2.00 11/05/17 14:46 98.3 107 24 101/56 (71) 96 Physical Exam GENERAL: In no apparent distress SKIN: Right posterior ankle ulcer, right foot gangrene HEAD: Atraumatic. Normocephalic. EYES: Pupils equal round and reactive. ENT: Airway patent. NECK: Trachea midline. RESPIRATORY: Nonlabored breathing MUSCULOSKELETAL:No calf tenderness. Negative Homans sign bilaterally. NEUROLOGICAL: Awake and alert. Normal speech. Lower extremity physical exam: Vascular: Dorsalis pedis 1/4, posterior tibial nonpalpable. Capillary refill time within normal limits to digits 5 present bilateral foot. Edema present right foot and ankle Neuro: Gross sensation intact to bilateral lower extremity. Pinpoint sensation decreased. No hyperalgesia noted to bilateral lower extremity Dermatology: Normal temperature and turgor to bilateral lower extremity. Right foot: Gangrenous fifth digit noted. Sutures still present to fourth interspace with underlying ulceration. Right posterior ankle ulcer with exposed Achilles tendon measuring about 2 cm x 2 cm x 0.5 depth. Edema noted to right foot and ankle. Musculoskeletal: Tender to palpation to posterior right ankle. No tenderness on palpation to right fifth digit or right fourth interspace surgical site. No active or passive motion of digits to right foot. Hallux, second digit, and fourth digit amputation noted. Laboratory Laboratory Tests Test 11/05/17 15:10 11/05/17 16:20 White Blood Count 23.6 Red Blood Count 4.63 Hemoglobin 12.9 Hematocrit 42.4 Mean Corpuscular Volume 91.6 Mean Corpuscular Hemoglobin 27.8 Mean Corpuscular Hemoglobin Concent 30.3 Red Cell Distribution Width 18.2 Platelet Count 394 Mean Platelet Volume 7.8 Neutrophils (%) (Auto) 89.1 Lymphocytes (%) (Auto) 3.0 Monocytes (%) (Auto) 4.8 Eosinophils (%) (Auto) 2.8 Basophils (%) (Auto) 0.3 Neutrophils # (Auto) 21.0 Lymphocytes # (Auto) 0.7 Monocytes # (Auto) 1.1 Eosinophils # (Auto) 0.7 Basophils # (Auto) 0.1 CBC Comment DIFF FINAL Differential Comment Prothrombin Time 10.5 Prothromb Time International Ratio 1.0 Activated Partial Thromboplast Time 49.9 Blood Urea Nitrogen 39 Creatinine 7.03 Random Glucose 189 Total Protein 9.4 Albumin 2.7 Calcium Level 8.3 Alkaline Phosphatase 77 Aspartate Amino Transf (AST/SGOT) 38 Alanine Aminotransferase (ALT/SGPT) 17 Total Bilirubin 0.5 Sodium Level 134 Potassium Level 5.7 Chloride Level 99 Carbon Dioxide Level 25.5 Anion Gap 10 Estimat Glomerular Filtration Rate 7 Lactic Acid Level 2.0 Date/Time Source Procedure Growth Status 11/05/17 16:25 Blood Peripheral Aerobic Blood Culture Pending Received 11/05/17 16:25 Blood Peripheral Anaerobic Blood Culture Pending Received Result Diagram: 11/05/17 1510 11/05/17 1510 Assessment and Plan Assessment and Plan 57-year-old female with right foot possible osteomyelitis and right posterior ankle ulcer with exposed Achilles tendon Patient examined and evaluated with all questions answered in Recommend MRI to left foot and ankle to rule out osteomyelitis Surgical intervention most likely after MRI is performed as fifth digit is gangrenous Probable right foot transmetatarsal amputation with debridement and irrigation of right ankle posterior ulcer Recommend offloading heel boots to right lower extremity Dressings to consist of dry sterile dressing to right foot and posterior ankle Patient's white count is of concern and will await MRI to rule out deep abscess , no purulent drainage upon compression no clinical suspicion for deep abscess Leonie Naqvi DPM Nov 05, 2017 20:11
[2017-11-05] MEDS ORDERED: COMBIVENT RESPIMAT INH SCH (21:00)
[2017-11-05 21:44] VITALS: BP 105/50; PULSE 94; RESP 14; TEMP 98.6; O2SAT 98
[2017-11-05] MEDS: SODIUM CHLORIDE 0.9% FLUSH 10 ML FLUSH IV FLUSH SCH (23:05)
[2017-11-05] MEDS: buPROPion HCL 150 MG SUSTAINED RELEASE TAB PO SCH (23:06)
[2017-11-05] MEDS: GABAPENTIN 300 MG CAP PO SCH (23:06)
[2017-11-05] MEDS: ATORVASTATIN 10 MG TAB PO SCH (23:06)
[2017-11-05] MEDS: CALCIUM CARBONATE 1.25 GM (CA 500 MG) TAB PO SCH (23:06)
[2017-11-05] MEDS: traZODone HCL 100 MG TAB PO SCH (23:06)
[2017-11-05] MEDS: HEPARIN SODIUM - SQ 10,000 UNITS/ML VIAL SQ SCH (23:07)
[2017-11-05 23:29] VITALS: BP 92/58; PULSE 92; RESP 18; TEMP 98; O2SAT 96
[2017-11-06] VITALS (11 sets, daily range): BP systolic 67–122; BP diastolic 44–58; PULSE 74–101; RESP 16–18; TEMP 97.4–98.5; O2SAT 94–98
[2017-11-06] MEDS: MORPHINE SULFATE 2 MG/ML INJ IV PUSH PRN (02:50)
[2017-11-06 05:37] LABS: AUTOMATED NEUTROPHIL # 11.4 TH/MM3 (1.8-7.7); BASOPHIL % 0.2 % (0.0-2.0); EOSINOPHIL # 0.7 TH/MM3 (0-0.4); HEMATOCRIT 40.7 % (35.0-46.0); HEMOGLOBIN 12.6 GM/DL (11.6-15.3); LYMPH % 4.8 % (9.0-44.0); LYMPHOCYTE # 0.7 TH/MM3 (1.0-4.8); MEAN CELL VOLUME 91.3 FL (80.0-100.0); MEAN CORPUSCULAR HEMOGLOBIN 28.3 PG (27.0-34.0); MEAN PLATELET VOLUME 7.2 FL (7.0-11.0); MONOCYTE # 0.8 TH/MM3 (0-0.9); PLATELET COUNT 340 TH/MM3 (150-450); RED BLOOD COUNT 4.46 MIL/MM3 (4.00-5.30); RED CELL DISTRIBUTION WIDTH 17.8 % (11.6-17.2); WHITE BLOOD COUNT 13.6 TH/MM3 (4.0-11.0)
[2017-11-06 06:08] LABS: BICARBONATE 28.7 MEQ/L (21.0-32.0); CALCIUM 8.5 MG/DL (8.5-10.1); CREATININE 8.12 MG/DL (0.50-1.00)
[2017-11-06] MEDS: CALCIUM CARBONATE 1.25 GM (CA 500 MG) TAB PO SCH ×3 (06:46→21:27)
[2017-11-06] MEDS: HEPARIN SODIUM - SQ 10,000 UNITS/ML VIAL SQ SCH ×3 (06:47→21:28)
[2017-11-06] MEDS: MIDODRINE 5 MG TAB PO SCH (07:32)
[2017-11-06] MEDS: INSULIN ASPART SUPPLEMENTAL SCALE SQ SCH ×4 (08:22→21:00)
[2017-11-06] MEDS: SODIUM CHLORIDE 0.9% FLUSH 10 ML FLUSH IV FLUSH SCH ×2 (10:05→21:28)
[2017-11-06] MEDS: buPROPion HCL 150 MG SUSTAINED RELEASE TAB PO SCH ×2 (10:06→21:27)
[2017-11-06] MEDS: ASPIRIN EC 81 MG TABEC PO SCH (10:06)
[2017-11-06] MEDS: PANTOPRAZOLE SOD 40 MG DELAYED RELEASE TAB PO SCH (10:06)
[2017-11-06] MEDS: INSULIN ASPAR PROT 70/30 1,000 UNITS/10 ML VIAL SQ SCH ×2 (11:30→18:45)
[2017-11-06] MEDS ORDERED: LORazepam 2 MG/ML VIAL IV PUSH ONE (12:00)
--- NOTE | 2017-11-06 13:06 | HHI.PR ---
Subjective Remarks She reports she is feeling okay except for discomfort at the foot. Afebrile Objective Vitals Vital Signs Date Time Temp Pulse Resp B/P (MAP) Pulse Ox O2 Delivery O2 Flow Rate FiO2 11/06/17 11:26 71/48 (56) 11/06/17 11:04 98.0 94 18 67/44 (52) 94 11/06/17 08:00 Nasal Cannula 2.00 11/06/17 07:28 98.0 94 16 78/50 (59) 96 11/06/17 06:27 98.0 74 18 84/48 (60) 98 11/06/17 02:52 122/58 (79) 11/05/17 23:29 98.0 92 18 92/58 (69) 96 11/05/17 23:00 96 Nasal Cannula 2.00 11/05/17 21:44 98.6 94 14 105/50 (68) 98 11/05/17 21:17 Nasal Cannula 2.00 11/05/17 18:27 98.7 99 16 80/50 (60) 95 11/05/17 18:25 Nasal Cannula 2.00 11/05/17 17:53 11/05/17 16:57 104 16 136/58 (84) 98 Nasal Cannula 2.00 11/05/17 14:46 98.3 107 24 101/56 (71) 96 Result Diagram: 11/06/17 0500 11/06/17 0500 Objective Remarks GENERAL: Morbidly obese female in no acute distress CARDIOVASCULAR: Normal rate and regular rhythm without murmurs, gallops, or rubs. RESPIRATORY: Good respiratory efforts. Breath sounds equal and clear to auscultation bilaterally. GASTROINTESTINAL: Abdomen soft, non-tender, non-distended. Normal active bowel sounds MUSCULOSKELETAL: Right foot with fifth digit with apparent dry gangrene. Sutures in place from prior surgery about the fourth digit. Multiple ulceration over the right Achilles tendon. A/P Problem List: (1) Leukocytosis ICD Code: D72.829 - Leukocytosis Status: Acute (2) Sacral ulcer ICD Code: L98.429 - Non-pressure chronic ulcer of back with unspecified severity (3) Diabetes mellitus ICD Code: E11.9 - Type 2 diabetes mellitus without complications (4) ESRD on hemodialysis ICD Code: N18.6 - End stage renal disease; Z99.2 - Dependence on renal dialysis Status: Chronic (5) Status post amputation of toe of right foot ICD Code: Z89.421 - Acquired absence of other right toe(s) Assessment and Plan 57-year-old female with PMH of hypotension, CHF, hypothyroidism , HLD, ESRD on HD, DM, neuropathy and COPD on chronic home O2 who presents to the the ED with complaints of left heel pain and tailbone pain. Sacral wound on presentation, right Achilles ulcers, status post right foot fourth digit amputation, leukocytosis -Complaints of increased pain to right heel. Patient currently being treated for osteomyelitis of right foot and is s/p right foot fourth digit amputation on 09/17/17 by -WBC count 23.6 with left shift on presentation, previous CBC on 09/18 with normal WBC -Patient afebrile on presentation, denies any fevers or chills at home. Tachycardic with heart rate 107, mets SIRS criteria -Patient given 1 g of IV vancomycin in the ED -Podiatry following. MRI ordered - Lactic acid 2.0 - BC x2 pending - Continue IV Vanc. by nephrology dosing to be given with HD -Pain control with IV morphine Sacral ulcer: Likely pressure ulcer. -Consult wound care nurse ESRD on HD -HD Sunday, Sunday, Sunday. -Potassium on admission 5.7, given 10 units of regular insulin IV, 50 mL's of D5W, and 1 g of calcium gluconate in ED -Nephrology following, for HD and vanco dosing, appreciate assistance -Continue midodrine for hypotension DM Neuropathy -Hemoglobin A1c from 09/14/17 was 7.3 -Diabetic diet, NovoLog 70/38 units twice daily, Accu-Cheks with insulin sliding scale -Continue home dose gabapentin COPD -Continue nasal cannula O2 DVT prophylaxis-subcu heparin Problem Qualifiers (1) Leukocytosis: Qualified Codes: D72.829 - Elevated white blood cell count, unspecified (2) Diabetes mellitus: Nieves Olivares MD Nov 06, 2017 13:06
--- NOTE | 2017-11-06 15:20 | HHI.NPPN ---
Subjective History of Present Illness 57-year-old diabetes, right foot infection, sacral decubitus, ESRD Objective Data Data Vital Signs Date Time Temp Pulse Resp B/P (MAP) Pulse Ox O2 Delivery O2 Flow Rate FiO2 11/06/17 15:10 98.5 93 84/52 (63) 11/06/17 11:26 71/48 (56) 11/06/17 11:04 98.0 94 18 67/44 (52) 94 11/06/17 08:00 Nasal Cannula 2.00 11/06/17 07:40 95 Nasal Cannula 2.00 11/06/17 07:28 98.0 94 16 78/50 (59) 96 11/06/17 06:27 98.0 74 18 84/48 (60) 98 11/06/17 02:52 122/58 (79) 11/05/17 23:29 98.0 92 18 92/58 (69) 96 11/05/17 23:00 96 Nasal Cannula 2.00 11/05/17 21:44 98.6 94 14 105/50 (68) 98 11/05/17 21:17 Nasal Cannula 2.00 11/05/17 18:27 98.7 99 16 80/50 (60) 95 11/05/17 18:25 Nasal Cannula 2.00 11/05/17 17:53 11/05/17 16:57 104 16 136/58 (84) 98 Nasal Cannula 2.00 -: 11/06/17 0500 11/06/17 0500 Microbiology 11/05/17 Aerobic Blood Culture - Preliminary, Resulted NO GROWTH IN 1 DAY 11/05/17 Anaerobic Blood Culture - Preliminary, Resulted NO GROWTH IN 1 DAY 11/05/17 Aerobic Blood Culture - Preliminary, Resulted NO GROWTH IN 1 DAY 11/05/17 Anaerobic Blood Culture - Preliminary, Resulted NO GROWTH IN 1 DAY Physical Exam General Appearance: Well Developed, Obese Neck Neck Exam: Neck Supple Pulmonary Resp Exam: Clear Bilaterally, Breath Sounds Equal Cardiology CV Exam: Regular, Normal Sinus Rhythm Gastrointestinal/Abdomen GI Exam: Soft, Bowel Sounds Present Integumentary Skin Exam: Lesion(s) Extremeties Extremities Exam: Trace Edema Assessment/Plan Problem List: (1) ESRD (end stage renal disease) ICD Codes: N18.6 - End-stage renal disease Status: Chronic Plan: Patient is on hemodialysis next dialysis tomorrow Follow-up Sunday, Sunday and Sunday schedule (2) Sacral ulcer ICD Codes: L98.429 - Non-pressure chronic ulcer of back with unspecified severity Plan: Patient is getting vancomycin (3) Diabetes mellitus ICD Codes: E11.9 - Type 2 diabetes mellitus without complications Plan: Continue to monitor (4) Hypotension ICD Codes: I95.9 - Hypotension Status: Resolved Plan: Patient takes midodrine (5) Morbid obesity ICD Codes: E66.01 - Morbid (severe) obesity due to excess calories Status: Chronic Problem Qualifiers (1) Diabetes mellitus: Frank Villagran MD Nov 06, 2017 15:20
--- NOTE | 2017-11-06 15:28 | RADRPT ---
EXAM DATE/TIME: 11/06/2017 12:57 [facility] COMPARISON: FOOT RIGHT COMPLETE ([id number]), November 05, 2017, 18:25. INDICATIONS : Osteomyelitis. MEDICAL HISTORY : Renal disease, end stage. SURGICAL HISTORY : Cholecystectomy. Hysterectomy. Amputation of bilat great toes and right 4th & 5th toes. ENCOUNTER: Subsequent ACUITY: 1 week PAIN SCORE: 0/10 LOCATION: Right foot. TECHNIQUE: Multiplanar, multisequence MRI examination was performed without contrast. FINDINGS: No intravenous contrast was administered given the patient's end-stage renal disease. Examination hemant ge quality is degraded by motion artifact. There is abnormal decreased T1 and increased T2 signal in the distal 1 cm of the distal fourth metata rsal. There is subtle increased T2 signal but normal T1 signal in the fifth metacarpal head. Abnormal decreased T1 and increased T2 signal maybe present in the proximal and phalanx of the fifth digit. H owever, there is inhomogeneous fat suppression in this area. The distal aspects of the first and second digit are absent. The midfoot and hindfoot bones demonstra te normal signal intensity. There is subcutaneous edema along the lateral aspect of the foot. CONCLUSION: 1. The combination of radiographic findings and the abnormal T1 and T2 signal in the distal 1 cm of t he fourth metatarsal is suspicious for osteomyelitis. Please note that no contrast could be administe red given the patient's end-stage renal disease. 2. Signal abnormality versus inhomogeneous fat suppression involving the proximal distal phalanx of t he fifth digit. 3. There is subcutaneous edema on the lateral aspect of the foot and adjacent to the distal end of th e fourth metatarsal. Damián Cabrera MD on November 06, 2017 at 15:15 Board Certified Radiologist. This report was verified electronically.
--- NOTE | 2017-11-06 15:30 | RADRPT ---
EXAM DATE/TIME: 11/06/2017 12:57 [facility] COMPARISON: No previous studies available for comparison. INDICATIONS : Osteomyelitis. MEDICAL HISTORY : Renal disease, end stage. SURGICAL HISTORY : Cholecystectomy. Hysterectomy. Amputation of bilat great toes and right 4th & 5th toes. ENCOUNTER: Subsequent ACUITY: 1 week PAIN SCORE: 0/10 LOCATION: Right ankle. TECHNIQUE: Multiplanar, multisequence MRI examination was performed without contrast. FINDINGS: Examination quality mildly degraded by motion artifact. We were unable to give the patient intravenou s contrast secondary to end-stage renal disease. The distal tibia, fibula, and bones of the hindfoot demonstrate normal T1 and T2 signal. There is a small ankle joint effusion. Tendons appear within nor mal limits. No soft tissue mass or fluid collection is seen. There is subcutaneous edema at the visua lized lateral midfoot region. CONCLUSION: There are no imaging findings to indicate osteomyelitis around the ankle. Please refer to foot MRI re port for further description of the foot findings. Damián Cabrera MD on November 06, 2017 at 15:27 Board Certified Radiologist. This report was verified electronically.
--- NOTE | 2017-11-06 16:55 | PD.WCN.NOT ---
Wound Consult Additional Information: Late entry from 1342 11/06/2017: Patient not seen attempted to see patient, patient is at MRI per RN, Will attempt to see patient again at a later time or tomorrow. Cassie Tabares [facility] Nov 06, 2017 16:55
[2017-11-06] MEDS: GABAPENTIN 300 MG CAP PO SCH (21:27)
[2017-11-06] MEDS: ATORVASTATIN 10 MG TAB PO SCH (21:27)
[2017-11-06] MEDS: traZODone HCL 100 MG TAB PO SCH (21:28)
[2017-11-07 00:28] VITALS: BP 104/55; PULSE 89; RESP 20; TEMP 98.2; O2SAT 94
[2017-11-07 04:31] VITALS: BP 75/48; PULSE 95; RESP 20; TEMP 98.1; O2SAT 95
[2017-11-07] MEDS: HEPARIN SODIUM - SQ 10,000 UNITS/ML VIAL SQ SCH ×3 (06:00→22:39)
[2017-11-07] MEDS: CALCIUM CARBONATE 1.25 GM (CA 500 MG) TAB PO SCH ×3 (06:16→22:38)
[2017-11-07] MEDS: MIDODRINE 5 MG TAB PO SCH (06:16)
[2017-11-07 07:59] VITALS: BP 89/53; PULSE 92; RESP 18; TEMP 98; O2SAT 92
--- NOTE | 2017-11-07 08:42 | PD.WCN.NOT ---
Wound Consult Description: Wound consult ordered by for sacral and right heel Communicated with: Karley MUSA F-pod, Recommendation: 1) Encourage patient to reposition every 2 hours for offloading and comfort. 2) Please Cleanse skin folds,groin,breast and buttocks with warm soap and water, rinse and thoroughly dry. 3) Apply antifungal powder to skin folds,groin and under breast. 4) Perform shaving cream therapy to bilateral lower extremities x5 days. 5) Apply 50/50 mix of Lidocaine and Silvadene to sacral/buttocks open area and cover with ABD. 6) Do not use cotton underpad only UltraSorb pads. 7) Skin prep intact bulla (blisters) BID. Additional Information: Patient was seen today by technical report writer and Karley MUSA F-pod for evaluation of sacral wound.Patient alert and oriented x3 in bed.Patient required 1 person assistance to reposition to right side.Cotton underpads removed from under patient.Sacral foam dressing removed to expose mixed etiology of moisture,friction and pressure injuries with scattered Denuded areas.Open areas scattered across bilateral inner buttocks covering area of ~5.0cm x ~5.0cm Wound base is ~60% red non granulating tissue with ~40% pink tissue periwound intact with wound edges even with wound base.Scant serosanguineous drainage noted with no odor.Sacrum has an unstageable pressure injury measuring ~2.0cm x2.0 cm x yellow slough wound base is 100% loosely adhered yellow slough ,wound edges are well defined periwound intact scant serosanguineous drainage noted with no odor.Area cleansed with normal saline pat dry Calazime cream applied to all open areas till lidocaine and Silvadene available.Patient was noted to have 3 linear intact bulla (blisters) to abdomen and left flank.Appears to be from a reaction to tape.Skin fold,breast and groin area cleansed with warm soap and water thoroughly dried.Hand towel applied to skin fold to reduce moisture.Airrapy bed ordered.Patient has chronic dry,flaking skin to bilateral lower extremities in which shaving cream therapy is recommended.Patient tolerated wound care well. Lillian Mclean [facility] Nov 07, 2017 08:42
[2017-11-07] MEDS: INSULIN ASPART SUPPLEMENTAL SCALE SQ SCH ×4 (09:13→21:00)
[2017-11-07] MEDS: INSULIN ASPAR PROT 70/30 1,000 UNITS/10 ML VIAL SQ SCH ×2 (09:15→17:00)
[2017-11-07] MEDS ORDERED: SILVER SULFADIAZINE 1% CR 50 GM JAR TOPICAL PRN (09:30)
--- NOTE | 2017-11-07 09:45 | HHI.PR ---
Subjective Remarks 57-year-old female with PMH of hypotension, CHF, hypothyroidism , HLD, ESRD on HD, DM, neuropathy and COPD on chronic home O2 who presents to the the ED with complaints of left heel pain and tailbone pain. Medical record reviewed, patient was recently admitted on 09/12/17 and treated for sepsis and right foot fourth toe osteomyelitis. Infectious disease saw the patient while she was hospitalized and she was treated with IV antibiotics during her hospital stay. She was also seen by podiatry and underwent right foot fourth digit amputation on 09/17/17. She was discharged with IV vancomycin which she was to receive 1.5 g IV on Sunday, Sunday, and Sunday during dialysis treatments. End date for vancomycin was November 16. She was also discharged on Keflex 500 mg every 8 hours for 7 days. Patient's discharge date was 09/19/17. Patient states that [facility] and then went home. She reports being home for about 1 month and being assisted with the help of daughter and grandchildren. Today she reports that the pain in her right heel as well as to the bone was so bad that she came into the hospital. She denies any drainage from right foot amputation site. Last HD treatment was today, she repros her BP will usually be on the low side after HD. Denies any dizziness or lightheadedness. She is visited by wound care nurse twice a week, consisting of cleaning right foot and dressing changes. Denies any fevers, chills, nausea, vomiting, diarrhea, bloody stool, no vaginal discharge. She denies any cough or SOB, she has not been on any steroids recently. Complaints of some hand jerks for the past months. 2- She reports she is feeling okay except for discomfort at the foot. Afebrile 2- SEEN BY DRAFTER (CAD) ELECTRICAL FOR SACRAL DECUB RECOMMENDATIONS DISCUSSED DW RN AND PT TO HAVE HD AM LABS CONTINUE ANTIBIOTICS MONITOR BLOOD PRESSURES Objective Vitals Vital Signs Date Time Temp Pulse Resp B/P (MAP) Pulse Ox O2 Delivery O2 Flow Rate FiO2 11/07/17 07:59 98.0 92 18 89/53 (65) 92 11/07/17 04:31 98.1 95 20 75/48 (57) 95 11/07/17 00:28 98.2 89 20 104/55 (71) 94 11/06/17 21:27 Nasal Cannula 2.00 11/06/17 20:18 Nasal Cannula 2.00 11/06/17 20:02 97.4 89 16 90/55 (67) 96 11/06/17 16:01 93 11/06/17 15:10 98.5 93 84/52 (63) 11/06/17 12:28 91 11/06/17 11:26 71/48 (56) 11/06/17 11:04 98.0 94 18 67/44 (52) 94 I/O 11/06/17 11/06/17 11/06/17 11/07/17 11/07/17 11/07/17 07:00 15:00 23:00 07:00 15:00 23:00 Intake Total 420 ml Balance 420 ml Intake Oral 420 ml Result Diagram: 11/06/17 0500 11/06/17 0500 Other Results Laboratory Tests Test 11/05/17 15:10 11/05/17 16:20 11/06/17 05:00 White Blood Count 23.6 TH/MM3 13.6 TH/MM3 Red Blood Count 4.63 MIL/MM3 4.46 MIL/MM3 Hemoglobin 12.9 GM/DL 12.6 GM/DL Hematocrit 42.4 % 40.7 % Mean Corpuscular Volume 91.6 FL 91.3 FL Mean Corpuscular Hemoglobin 27.8 PG 28.3 PG Mean Corpuscular Hemoglobin Concent 30.3 % 31.0 % Red Cell Distribution Width 18.2 % 17.8 % Platelet Count 394 TH/MM3 340 TH/MM3 Mean Platelet Volume 7.8 FL 7.2 FL Neutrophils (%) (Auto) 89.1 % 84.0 % Lymphocytes (%) (Auto) 3.0 % 4.8 % Monocytes (%) (Auto) 4.8 % 6.0 % Eosinophils (%) (Auto) 2.8 % 5.0 % Basophils (%) (Auto) 0.3 % 0.2 % Neutrophils # (Auto) 21.0 TH/MM3 11.4 TH/MM3 Lymphocytes # (Auto) 0.7 TH/MM3 0.7 TH/MM3 Monocytes # (Auto) 1.1 TH/MM3 0.8 TH/MM3 Eosinophils # (Auto) 0.7 TH/MM3 0.7 TH/MM3 Basophils # (Auto) 0.1 TH/MM3 0.0 TH/MM3 CBC Comment DIFF FINAL DIFF FINAL Differential Comment Prothrombin Time 10.5 SEC Prothromb Time International Ratio 1.0 RATIO Activated Partial Thromboplast Time 49.9 SEC Blood Urea Nitrogen 39 MG/DL 51 MG/DL Creatinine 7.03 MG/DL 8.12 MG/DL Random Glucose 189 MG/DL 147 MG/DL Total Protein 9.4 GM/DL Albumin 2.7 GM/DL Calcium Level 8.3 MG/DL 8.5 MG/DL Alkaline Phosphatase 77 U/L Aspartate Amino Transf (AST/SGOT) 38 U/L Alanine Aminotransferase (ALT/SGPT) 17 U/L Total Bilirubin 0.5 MG/DL Sodium Level 134 MEQ/L 137 MEQ/L Potassium Level 5.7 MEQ/L 4.1 MEQ/L Chloride Level 99 MEQ/L 101 MEQ/L Carbon Dioxide Level 25.5 MEQ/L 28.7 MEQ/L Anion Gap 10 MEQ/L 7 MEQ/L Estimat Glomerular Filtration Rate 7 ML/MIN 6 ML/MIN Lactic Acid Level 2.0 mmol/L Imaging Last Impressions Foot MRI 11/06/17 0000 Signed Impressions: Service Date/Time: Monday, November 06, 2017 12:57 - CONCLUSION: 1. The combination of radiographic findings and the abnormal T1 and T2 signal in the distal 1 cm of the fourth metatarsal is suspicious for osteomyelitis. Please note that no contrast could be administered given the patient's end-stage renal disease. 2. Signal abnormality versus inhomogeneous fat suppression involving the proximal distal phalanx of the fifth digit. 3. There is subcutaneous edema on the lateral aspect of the foot and adjacent to the distal end of the fourth metatarsal. Damián Cabrera MD Ankle MRI 11/06/17 0000 Signed Impressions: Service Date/Time: Monday, November 06, 2017 12:57 - CONCLUSION: There are no imaging findings to indicate osteomyelitis around the ankle. Please refer to foot MRI report for further description of the foot findings. Damián Cabrera MD Foot X-Ray 11/05/17 0000 Signed Impressions: Service Date/Time: Sunday, November 05, 2017 18:25 - CONCLUSION: 1. Erosions at the fourth metatarsal head suspicious for osteomyelitis. Previous amputations as above. 2. Soft tissue ulcer posterior heel just above the calcaneus. Dmitry Anton MD Objective Remarks GENERAL: AWAKE ALERT AND ORIENTED X3 TALKATIVE AND COOPERATIVE SKIN: Warm and dry. SACRAL DECUB/WOUND -BL DRY SKIN ON TOES -AMPUTATIONS OF BL GREAT TOES HEAD: Atraumatic. Normocephalic. EYES: Pupils equal and round. No scleral icterus. No injection or drainage. EOMI ENT: No nasal bleeding or discharge. Mucous membranes pink and moist. TONGUE MIDLINE NECK: Trachea midline. No JVD. SUPPLE CARDIOVASCULAR: Regular rate and rhythm. S1, S2 NO S3 OR S4 RESPIRATORY: No accessory muscle use. Clear to auscultation. Breath sounds equal bilaterally. GASTROINTESTINAL: Abdomen soft, non-tender, nondistended. Hepatic and splenic margins not palpable. OBESE MUSCULOSKELETAL: Extremities without clubbing, cyanosis, or edema. No obvious deformities. BL GREAT TOE AMPUTATIONS AND MORE TOES ON RIGHT FOOT ALSO INCLUDING 4TH AND 5TH DIGITS- [facility] NEUROLOGICAL: Awake and alert. No obvious cranial nerve deficits. Motor grossly within normal limits. 4 out of 5 muscle strength in the arms and legs. Normal speech. PSYCHIATRIC: Appropriate mood and affect; insight and judgment normal. Medications and IVs Current Medications Insulin Human Regular (NovoLIN R INJ) 10 units ONCE ONCE IV PUSH Last administered on 11/05/17 16:56; Start 11/05/17 at 16:15; Stop 11/05/17 at 16:16 ; Status DC Dextrose (D50w (Vial) Inj) 50 ml ONCE ONCE IV PUSH Last administered on at 16:56; Start 11/05/17 at 16:15; Stop 11/05/17 at 16:16; Status DC Calcium Gluconate (Calcium Gluconate Inj) 1 gm ONCE ONCE IV PUSH Last administered on 11/05/17at 16:57; Start 11/05/17 at 16:15; Stop 11/05/17 at 16:16 ; Status DC Vancomycin HCl 1000 mg/Sodium Chloride 250 ml @ 250 mls/hr ONCE ONCE IV Last administered on 11/05/17at 16:56; Start 11/05/17 at 16:15; Stop 11/05/17 at 17:14 ; Status DC Sodium Chloride (NS Flush) 2 ml UNSCH PRN IV FLUSH FLUSH AFTER USING IV ACCESS Last administered on 11/06/17at 12:24; Start 11/05/17 at 16:15 Sodium Chloride (NS Flush) 2 ml BID IV FLUSH Last administered on 11/06/17at 21: 28; Start 11/05/17 at 21:00 Naloxone HCl (Narcan Inj) 0.4 mg UNSCH PRN IV PUSH SEE LABEL COMMENTS; Start at 16:15 Dextrose (D50w (Vial) Inj) 50 ml UNSCH PRN IV PUSH HYPOGLYCEMIA-SEE COMMENTS; Start 11/05/17 at 16:15 Glucagon (Glucagon Inj) 1 mg UNSCH PRN OTHER HYPOGLYCEMIA-SEE COMMENTS; Start 11/05/17 at 16:15 Insulin Aspart (NovoLOG SUPPLEMENTAL SCALE) 1 ACHS SLIDING SCALE SQ Last administered on 11/07/17at 09:13; Start 11/05/17 at 17:00 Morphine Sulfate (Morphine Inj) 2 mg Q3H PRN IV PUSH BREAKTHROUGH PAIN Last administered on 11/06/17at 02:50; Start 11/05/17 at 17:30 Aspirin (Ecotrin Ec) 81 mg DAILY PO Last administered on 11/06/17at 10:06; Start 11/06/17 at 09:00 Atorvastatin Calcium (Lipitor) 10 mg HS PO Last administered on 11/06/17at 21:27 ; Start 11/05/17 at 21:00 Bupropion HCl (Wellbutrin Sr) 150 mg BID PO Last administered on 11/06/17at 21: 27; Start 11/05/17 at 21:00 Calcium Carbonate (Oscal) 2,000 mg Q8HR PO Last administered on 11/07/17at 06:16 ; Start 11/05/17 at 22:00 Cyclobenzaprine HCl (Flexeril) 10 mg BID PRN PO MUSCLE SPASM; Start 11/05/17 at 17:30 Gabapentin (Neurontin) 300 mg HS PO Last administered on 11/06/17at 21:27; Start 11/05/17 at 21:00 Insulin Aspart Prota 70%/Aspart 30% (NovoLOG MIX 70/ 30 INJ) 8 units BID@08,17 SQ Last administered on 11/07/17at 09:15; Start 11/06/17 at 08:00 Midodrine (Proamatine) 10 mg DAILY PO Last administered on 11/07/17at 06:16; Start 11/06/17 at 09:00 Pantoprazole Sodium (Protonix) 40 mg DAILY PO Last administered on 11/06/17at 10 :06; Start 11/06/17 at 09:00 Patient Own Medication PT OWN MED:COMBIVENT RESPIMA... BID INH ; Start 11/05/17 at 21:00; Status Future Hold Trazodone HCl (Desyrel) 100 mg HS PO Last administered on 11/06/17at 21:28; Start 11/05/17 at 21:00 Sodium Chloride 1,000 ml @ 0 mls/hr Q0M PRN OTHER For Prime & Rinse Back; Start 11/05/17 at 18:17 Heparin Sodium (Porcine) (Heparin Inj) 8,000 units UNSCH PRN IV FLUSH WITH DIALYSIS; Start 11/05/17 at 18:30 Sodium Chloride 1,000 ml @ 200 mls/hr Q5H PRN IV WITH DIALYSIS; Start 11/05/17 at 18:17 Sodium Chloride 1,000 ml @ 0 mls/hr Q0M PRN OTHER WITH DIALYSIS; Start at 18:17 Mannitol (Mannitol Inj) 12.5 gm UNSCH PRN IV WITH DIALYSIS; Start 11/05/17 at 18:30 Albumin Human 100 ml @ 60 mls/hr UNSCH PRN IV WITH DIALYSIS; Start 11/05/17 at 18:30 Sodium Chloride (NS Flush) 5 ml UNSCH PRN IV FLUSH WITH DIALYSIS; Start at 18:30 Heparin Sodium (Porcine) (Heparin Inj) UNSCH PRN .XX WITH DIALYSIS; Start at 18:30 Gentamicin Sulfate (Gentamicin Inj) 20 mg UNSCH PRN OTHER WITH DIALYSIS; Start 11/05/17 at 18:30 Ondansetron HCl (Zofran Inj) 4 mg UNSCH PRN IV PUSH WITH DIALYSIS; Start at 18:30 Acetaminophen (Tylenol) 650 mg UNSCH PRN PO for headach, pain, temp > 101F; Start 11/05/17 at 18:30 Diphenhydramine HCl (Benadryl) 25 mg UNSCH PRN PO for hives/itching/anaphylaxis ; Start 11/05/17 at 18:30 Nitroglycerin (Nitrostat Sl) 0.4 mg UNSCH PRN SL CHEST PAIN; Start 11/05/17 at 18:30 Clonidine (Catapres) 0.1 mg UNSCH PRN PO for BP > 180/100 X 2 readings; Start 11/05/17 at 18:30 Gelatin (Gelfoam 12 Mm/7 Mm Top) 1 foam UNSCH PRN TOP SEE LABEL COMMENTS; Start 11/05/17 at 18:30 Midodrine (Proamatine) 10 mg ONCE ONCE PO Last administered on 11/05/17at 19:09 ; Start 11/05/17 at 18:45; Stop 11/05/17 at 18:46; Status DC Heparin Sodium (Porcine) (Heparin Inj) 5,000 units Q8HR SQ Last administered on 11/07/17at 06:00; Start 11/05/17 at 22:00 Lorazepam (Ativan Inj) 1 mg ONCE ONCE IV PUSH Last administered on 11/06/17at 12:24; Start 11/06/17 at 12:00; Stop 11/06/17 at 12:01; Status DC Acetaminophen/ Hydrocodone Bitart ([place] 5-325 Mg) 1 tab Q4H PRN PO PAIN GREATER THAN 5; Start 11/06/17 at 16:45 Nystatin (Mycostatin Powder) 1 applic BID TOPICAL ; Start 11/07/17 at 10:00 Lidocaine (L-M-X 4 Cream) 1 applic EVERY OTHER DAY PRN TOPICAL DISLODGEMENT; Start 11/07/17 at 09:30 Silver Sulfadiazine (Silvadene 1% Cream (50 Gm)) 1 applic EVERY OTHER DAY PRN TOPICAL DISLODGEMENT; Start 11/07/17 at 09:30 A/P Problem List: (1) Leukocytosis ICD Code: D72.829 - Leukocytosis Status: Acute (2) Sacral ulcer ICD Code: L98.429 - Non-pressure chronic ulcer of back with unspecified severity (3) Diabetes mellitus ICD Code: E11.9 - Type 2 diabetes mellitus without complications (4) ESRD on hemodialysis ICD Code: N18.6 - End stage renal disease; Z99.2 - Dependence on renal dialysis Status: Chronic (5) Status post amputation of toe of right foot ICD Code: Z89.421 - Acquired absence of other right toe(s) Assessment and Plan 57-year-old female with PMH of hypotension, CHF, hypothyroidism , HLD, ESRD on HD, DM, neuropathy and COPD on chronic home O2 who presents to the the ED with complaints of left heel pain and tailbone pain. Sacral wound on presentation, right Achilles ulcers, status post right foot fourth digit amputation, leukocytosis -Complaints of increased pain to right heel. Patient currently being treated for osteomyelitis of right foot and is s/p right foot fourth digit amputation on 09/17/17 by -WBC count 23.6 with left shift on presentation, previous CBC on 09/18 with normal WBC -Patient afebrile on presentation, denies any fevers or chills at home. Tachycardic with heart rate 107, mets SIRS criteria -Patient given 1 g of IV vancomycin in the ED -Podiatry following. MRI ordered - Lactic acid 2.0 - BC x2 pending - Continue IV Vanc. by nephrology dosing to be given with HD -Pain control with IV morphine Sacral ulcer: Likely pressure ulcer. -Consult wound care nurse DW THEM ESRD on HD -HD Sunday, Sunday, Sunday. -Potassium on admission 5.7, given 10 units of regular insulin IV, 50 mL's of D5W, and 1 g of calcium gluconate in ED -Nephrology following, for HD and vanco dosing, appreciate assistance -Continue midodrine for hypotension DM Neuropathy -Hemoglobin A1c from 09/14/17 was 7.3 -Diabetic diet, NovoLog 70/30 8 units twice daily, Accu-Cheks with insulin sliding scale -Continue home dose gabapentin COPD -Continue nasal cannula O2 DVT prophylaxis-subcu heparin Discharge Planning CONTINUE CURRENT WOUND CARE WILL NEED SNF Problem Qualifiers (1) Leukocytosis: Qualified Codes: D72.829 - Elevated white blood cell count, unspecified (2) Diabetes mellitus: Ronn Ag DO Nov 07, 2017 09:45
[2017-11-07] MEDS: MORPHINE SULFATE 2 MG/ML INJ IV PUSH PRN ×3 (10:27→22:57)
[2017-11-07] MEDS: ASPIRIN EC 81 MG TABEC PO SCH (10:27)
[2017-11-07] MEDS: PANTOPRAZOLE SOD 40 MG DELAYED RELEASE TAB PO SCH (10:27)
[2017-11-07] MEDS: buPROPion HCL 150 MG SUSTAINED RELEASE TAB PO SCH ×2 (10:28→22:38)
[2017-11-07] MEDS: SODIUM CHLORIDE 0.9% FLUSH 10 ML FLUSH IV FLUSH SCH ×2 (10:28→22:37)
[2017-11-07 11:45] VITALS: BP 112/45; PULSE 89; RESP 20; TEMP 97.5; O2SAT 96
--- NOTE | 2017-11-07 12:03 | RADRPT ---
EXAM DATE/TIME: 11/06/2017 00:00 [facility] COMPARISON: No previous studies available for comparison. INDICATIONS : Right foot/heel ulcers TECHNIQUE: Five-station segmental examination of the lower extremities was performed. Pulsed-cuff waveform tracings and pressures were recorded. Ankle-brachial indices and toe-brachial indices were calculated. PRESSURES (mmHg): Brachial (arm): Right iv site Left 194 Lower Thigh: Right >CNO Left >CNO Calf: Right >CNO Left >CNO Ankle: Right >CNO Left >CNO Toe: Right 113 Left 59 CALVIN: Right >CNO Left >CNO TBI: Right 0.58 Left 0.30 PULSED CUFF WAVEFORMS: Inconsistently obtained monophasic tracings CONCLUSION: Noncompressibility throughout the legs, likely indicative of extensive vascular calcification. Perfus ion pressure in the right foot appears to be fairly well-maintained. Damián Chung MD on November 07, 2017 at 12:01 Board Certified Radiologist. This report was verified electronically.
[2017-11-07] MEDS: NYSTATIN 100,000 U/GM PWD 15 GM BTL TOPICAL SCH ×2 (15:43→22:38)
[2017-11-07] MEDS: LIDOCAINE 4% CREAM 5 GM TUBE TOPICAL PRN (15:43)
[2017-11-07] MEDS: ALBUMIN 25% INJ 100 ML IV PRN (16:19)
--- NOTE | 2017-11-07 18:54 | HHI.NPPN ---
Subjective History of Present Illness 57-year-old diabetes, right foot infection, sacral decubitus, ESRD Objective Data Data Vital Signs Date Time Temp Pulse Resp B/P (MAP) Pulse Ox O2 Delivery O2 Flow Rate FiO2 11/07/17 11:45 97.5 89 20 112/45 (67) 96 11/07/17 07:59 98.0 92 18 89/53 (65) 92 11/07/17 04:31 98.1 95 20 75/48 (57) 95 11/07/17 00:28 98.2 89 20 104/55 (71) 94 11/06/17 21:27 Nasal Cannula 2.00 11/06/17 20:18 Nasal Cannula 2.00 11/06/17 20:02 97.4 89 16 90/55 (67) 96 -: 11/06/17 0500 11/06/17 0500 Physical Exam General Appearance: Well Developed, Obese Neck Neck Exam: Neck Supple Pulmonary Resp Exam: Clear Bilaterally, Breath Sounds Equal Cardiology CV Exam: Regular, Normal Sinus Rhythm Gastrointestinal/Abdomen GI Exam: Soft, Bowel Sounds Present Integumentary Skin Exam: Lesion(s) Extremeties Extremities Exam: Trace Edema Assessment/Plan Problem List: (1) ESRD (end stage renal disease) ICD Codes: N18.6 - End-stage renal disease Status: Chronic Plan: Patient is on hemodialysis next dialysis tomorrow Follow-up Sunday, Sunday and Sunday schedule HD this evening (2) Sacral ulcer ICD Codes: L98.429 - Non-pressure chronic ulcer of back with unspecified severity Plan: Patient is getting vancomycin (3) Diabetes mellitus ICD Codes: E11.9 - Type 2 diabetes mellitus without complications Plan: Continue to monitor (4) Hypotension ICD Codes: I95.9 - Hypotension Status: Resolved Plan: Patient takes midodrine (5) Morbid obesity ICD Codes: E66.01 - Morbid (severe) obesity due to excess calories Status: Chronic Problem Qualifiers (1) Diabetes mellitus: Frank Villagran MD Nov 07, 2017 18:54
[2017-11-07 20:00] VITALS: BP 96/53; PULSE 93; RESP 20; TEMP 97.8; O2SAT 98
[2017-11-07] MEDS: GABAPENTIN 300 MG CAP PO SCH (22:36)
[2017-11-07] MEDS: traZODone HCL 100 MG TAB PO SCH (22:36)
[2017-11-07] MEDS: ATORVASTATIN 10 MG TAB PO SCH (22:37)
[2017-11-08] VITALS (10 sets, daily range): BP systolic 81–110; BP diastolic 49–65; PULSE 85–100; RESP 14–24; TEMP 97.7–98.2; O2SAT 93–100
[2017-11-08] MEDS: MORPHINE SULFATE 2 MG/ML INJ IV PUSH PRN (03:54)
[2017-11-08] MEDS ORDERED: SODIUM CHLORID 0.9% 500 ML IV PRN (05:30)
[2017-11-08] MEDS ORDERED: POVIDONE IODINE 5% (ANTISEPSIS KIT) 4 APPLICATIONS EACH NARE PRN (05:30)
[2017-11-08] MEDS ORDERED: LACTATED RINGER'S 1000 ML IV PRN (05:30)
[2017-11-08] MEDS ORDERED: CHLORHEXIDINE GLUCONATE 2 % 1 PACK (2 CLOTHS) TOPICAL PRN (05:30)
[2017-11-08 05:49] LABS: AUTOMATED NEUTROPHIL # 5.2 TH/MM3 (1.8-7.7); BASOPHIL % 0.4 % (0.0-2.0); EOSINOPHIL # 0.7 TH/MM3 (0-0.4); EOSINOPHIL % 8.9 % (0.0-4.0); HEMOGLOBIN 10.6 GM/DL (11.6-15.3); LYMPH % 9.8 % (9.0-44.0); LYMPHOCYTE # 0.7 TH/MM3 (1.0-4.8); MEAN CELL VOLUME 90.3 FL (80.0-100.0); MEAN CORPUSCULAR HEMOGLOBIN 28.2 PG (27.0-34.0); MEAN CORPUSCULAR HGB CONC 31.2 % (32.0-36.0); MEAN PLATELET VOLUME 6.7 FL (7.0-11.0); MONOCYTE # 0.7 TH/MM3 (0-0.9); NEUT % 70.9 % (16.0-70.0); PLATELET COUNT 268 TH/MM3 (150-450); RED BLOOD COUNT 3.77 MIL/MM3 (4.00-5.30); RED CELL DISTRIBUTION WIDTH 18.4 % (11.6-17.2); WHITE BLOOD COUNT 7.4 TH/MM3 (4.0-11.0)
[2017-11-08 06:12] LABS: ALBUMIN 2.9 GM/DL (3.4-5.0); AST (GOT) 7 U/L (15-37); BICARBONATE 31.7 MEQ/L (21.0-32.0); BLOOD UREA NITROGEN 36 MG/DL (7-18); CALCIUM 8.5 MG/DL (8.5-10.1); CHLORIDE 100 MEQ/L (98-107); GLOMERULAR FILTRATION RATE 8 ML/MIN (>89); GLUCOSE,RANDOM 96 MG/DL (74-106); MAGNESIUM 2.2 MG/DL (1.5-2.5); SODIUM (NA) 137 MEQ/L (136-145)
[2017-11-08 06:18] LABS: ALKALINE PHOSPHATASE 55 U/L (45-117); ALT (GPT) 9 U/L (10-53); FREE T4 0.93 NG/DL (0.76-1.46); TOTAL BILIRUBIN ADULT 0.3 MG/DL (0.2-1.0)
[2017-11-08] MEDS: INSULIN ASPAR PROT 70/30 1,000 UNITS/10 ML VIAL SQ SCH (08:00)
[2017-11-08] MEDS: INSULIN ASPART SUPPLEMENTAL SCALE SQ SCH ×4 (08:00→21:00)
[2017-11-08] MEDS: MIDODRINE 5 MG TAB PO SCH ×2 (09:25→23:28)
[2017-11-08] MEDS: PANTOPRAZOLE SOD 40 MG DELAYED RELEASE TAB PO SCH (09:25)
[2017-11-08] MEDS: ASPIRIN EC 81 MG TABEC PO SCH (09:25)
[2017-11-08] MEDS: buPROPion HCL 150 MG SUSTAINED RELEASE TAB PO SCH ×2 (09:25→23:27)
[2017-11-08] MEDS: SODIUM CHLORIDE 0.9% FLUSH 10 ML FLUSH IV FLUSH SCH ×2 (09:25→21:00)
[2017-11-08] MEDS: NYSTATIN 100,000 U/GM PWD 15 GM BTL TOPICAL SCH ×2 (09:26→21:00)
--- NOTE | 2017-11-08 09:30 | HHI.PR ---
Subjective Remarks 57-year-old female with PMH of hypotension, CHF, hypothyroidism , HLD, ESRD on HD, DM, neuropathy and COPD on chronic home O2 who presents to the the ED with complaints of left heel pain and tailbone pain. Medical record reviewed, patient was recently admitted on 09/12/17 and treated for sepsis and right foot fourth toe osteomyelitis. Infectious disease saw the patient while she was hospitalized and she was treated with IV antibiotics during her hospital stay. She was also seen by podiatry and underwent right foot fourth digit amputation on 09/17/17. She was discharged with IV vancomycin which she was to receive 1.5 g IV on Sunday, Sunday, and Sunday during dialysis treatments. End date for vancomycin was November 16. She was also discharged on Keflex 500 mg every 8 hours for 7 days. Patient's discharge date was 09/19/17. Patient states that she was discharged to [facility] facility and then went home. She reports being home for about 1 month and being assisted with the help of daughter and grandchildren. Today she reports that the pain in her right heel as well as to the bone was so bad that she came into the hospital. She denies any drainage from right foot amputation site. Last HD treatment was today, she repros her BP will usually be on the low side after HD. Denies any dizziness or lightheadedness. She is visited by wound care nurse twice a week, consisting of cleaning right foot and dressing changes. Denies any fevers, chills, nausea, vomiting, diarrhea, bloody stool, no vaginal discharge. She denies any cough or SOB, she has not been on any steroids recently. Complaints of some hand jerks for the past months. 2-27 She reports she is feeling okay except for discomfort at the foot. Afebrile 2-28 SEEN BY [employer] CERTIFIED ORTHOTIST FOR SACRAL DECUB RECOMMENDATIONS DISCUSSED DW RN AND PT TO HAVE HD AM LABS CONTINUE ANTIBIOTICS MONITOR BLOOD PRESSURES 3-1 patient is scheduled to have surgery on her right foot with podiatry later today Has had borderline blood pressures. Continue on Midrin Has some pain continue on pain medications as needed Keep n.p.o. for surgery later today Discussed with patient and RN Objective Vitals Vital Signs Date Time Temp Pulse Resp B/P (MAP) Pulse Ox O2 Delivery O2 Flow Rate FiO2 11/08/17 07:56 3.00 11/08/17 07:33 97.7 85 18 81/49 (60) 93 11/08/17 03:18 Nasal Cannula 4.00 11/08/17 03:00 93 11/08/17 01:43 98.2 86 14 89/55 (66) 96 11/07/17 20:00 97.8 93 20 96/53 (67) 98 11/07/17 11:45 97.5 89 20 112/45 (67) 96 I/O 11/07/17 11/07/17 11/07/17 11/08/17 11/08/17 11/08/17 07:00 15:00 23:00 07:00 15:00 23:00 Output Total 1000 ml Balance -1000 ml Hemodialysis 1000 ml Result Diagram: 11/08/17 0530 11/08/17 0530 Other Results Laboratory Tests Test 11/05/17 15:10 11/05/17 16:20 11/06/17 05:00 11/08/17 05:30 White Blood Count 23.6 TH/MM3 13.6 TH/MM3 7.4 TH/MM3 Red Blood Count 4.63 MIL/MM3 4.46 MIL/MM3 3.77 MIL/MM3 Hemoglobin 12.9 GM/DL 12.6 GM/DL 10.6 GM/DL Hematocrit 42.4 % 40.7 % 34.0 % Mean Corpuscular Volume 91.6 FL 91.3 FL 90.3 FL Mean Corpuscular Hemoglobin 27.8 PG 28.3 PG 28.2 PG Mean Corpuscular Hemoglobin Concent 30.3 % 31.0 % 31.2 % Red Cell Distribution Width 18.2 % 17.8 % 18.4 % Platelet Count 394 TH/MM3 340 TH/MM3 268 TH/MM3 Mean Platelet Volume 7.8 FL 7.2 FL 6.7 FL Neutrophils (%) (Auto) 89.1 % 84.0 % 70.9 % Lymphocytes (%) (Auto) 3.0 % 4.8 % 9.8 % Monocytes (%) (Auto) 4.8 % 6.0 % 10.0 % Eosinophils (%) (Auto) 2.8 % 5.0 % 8.9 % Basophils (%) (Auto) 0.3 % 0.2 % 0.4 % Neutrophils # (Auto) 21.0 TH/MM3 11.4 TH/MM3 5.2 TH/MM3 Lymphocytes # (Auto) 0.7 TH/MM3 0.7 TH/MM3 0.7 TH/MM3 Monocytes # (Auto) 1.1 TH/MM3 0.8 TH/MM3 0.7 TH/MM3 Eosinophils # (Auto) 0.7 TH/MM3 0.7 TH/MM3 0.7 TH/MM3 Basophils # (Auto) 0.1 TH/MM3 0.0 TH/MM3 0.0 TH/MM3 CBC Comment DIFF FINAL DIFF FINAL DIFF FINAL Differential Comment Prothrombin Time 10.5 SEC Prothromb Time International Ratio 1.0 RATIO Activated Partial Thromboplast Time 49.9 SEC Blood Urea Nitrogen 39 MG/DL 51 MG/DL 36 MG/DL Creatinine 7.03 MG/DL 8.12 MG/DL 6.20 MG/DL Random Glucose 189 MG/DL 147 MG/DL 96 MG/DL Total Protein 9.4 GM/DL 8.0 GM/DL Albumin 2.7 GM/DL 2.9 GM/DL Calcium Level 8.3 MG/DL 8.5 MG/DL 8.5 MG/DL Alkaline Phosphatase 77 U/L 55 U/L Aspartate Amino Transf (AST/SGOT) 38 U/L 7 U/L Alanine Aminotransferase (ALT/SGPT) 17 U/L 9 U/L Total Bilirubin 0.5 MG/DL 0.3 MG/DL Sodium Level 134 MEQ/L 137 MEQ/L 137 MEQ/L Potassium Level 5.7 MEQ/L 4.1 MEQ/L 4.0 MEQ/L Chloride Level 99 MEQ/L 101 MEQ/L 100 MEQ/L Carbon Dioxide Level 25.5 MEQ/L 28.7 MEQ/L 31.7 MEQ/L Anion Gap 10 MEQ/L 7 MEQ/L 5 MEQ/L Estimat Glomerular Filtration Rate 7 ML/MIN 6 ML/MIN 8 ML/MIN Lactic Acid Level 2.0 mmol/L Phosphorus Level 3.0 MG/DL Magnesium Level 2.2 MG/DL Free Thyroxine 0.93 NG/DL Thyroid Stimulating Hormone 3rd Gen 3.590 uIU/ML Imaging Last Impressions Foot MRI 11/06/17 0000 Signed Impressions: Service Date/Time: Monday, November 06, 2017 12:57 - CONCLUSION: 1. The combination of radiographic findings and the abnormal T1 and T2 signal in the distal 1 cm of the fourth metatarsal is suspicious for osteomyelitis. Please note that no contrast could be administered given the patient's end-stage renal disease. 2. Signal abnormality versus inhomogeneous fat suppression involving the proximal distal phalanx of the fifth digit. 3. There is subcutaneous edema on the lateral aspect of the foot and adjacent to the distal end of the fourth metatarsal. Damián Cabrera MD Ankle MRI 11/06/17 0000 Signed Impressions: Service Date/Time: Monday, November 06, 2017 12:57 - CONCLUSION: There are no imaging findings to indicate osteomyelitis around the ankle. Please refer to foot MRI report for further description of the foot findings. Damián Cabrera MD Foot X-Ray 11/05/17 0000 Signed Impressions: Service Date/Time: Sunday, November 05, 2017 18:25 - CONCLUSION: 1. Erosions at the fourth metatarsal head suspicious for osteomyelitis. Previous amputations as above. 2. Soft tissue ulcer posterior heel just above the calcaneus. Dmitry Anton MD Objective Remarks GENERAL: AWAKE ALERT AND ORIENTED X3 TALKATIVE AND COOPERATIVE SKIN: Warm and dry. SACRAL DECUB/WOUND -BL DRY SKIN ON TOES -AMPUTATIONS OF BL GREAT TOES HEAD: Atraumatic. Normocephalic. EYES: Pupils equal and round. No scleral icterus. No injection or drainage. EOMI ENT: No nasal bleeding or discharge. Mucous membranes pink and moist. TONGUE MIDLINE NECK: Trachea midline. No JVD. SUPPLE CARDIOVASCULAR: Regular rate and rhythm. S1, S2 NO S3 OR S4 RESPIRATORY: No accessory muscle use. Clear to auscultation. Breath sounds equal bilaterally. GASTROINTESTINAL: Abdomen soft, non-tender, nondistended. Hepatic and splenic margins not palpable. OBESE MUSCULOSKELETAL: Extremities without clubbing, cyanosis, or edema. No obvious deformities. BL GREAT TOE AMPUTATIONS AND MORE TOES ON RIGHT FOOT ALSO INCLUDING 4TH AND 5TH DIGITS- GANGRENE NEUROLOGICAL: Awake and alert. No obvious cranial nerve deficits. Motor grossly within normal limits. 4 out of 5 muscle strength in the arms and legs. Normal speech. PSYCHIATRIC: Appropriate mood and affect; insight and judgment normal. Procedures Hemodialysis Medications and IVs Current Medications Insulin Human Regular (NovoLIN R INJ) 10 units ONCE ONCE IV PUSH Last administered on 11/05/17at 16:56; Start 11/05/17 at 16:15; Stop 11/05/17 at 16:16 ; Status DC Dextrose (D50w (Vial) Inj) 50 ml ONCE ONCE IV PUSH Last administered on at 16:56; Start 11/05/17 at 16:15; Stop 11/05/17 at 16:16; Status DC Calcium Gluconate (Calcium Gluconate Inj) 1 gm ONCE ONCE IV PUSH Last administered on 11/05/17at 16:57; Start 11/05/17 at 16:15; Stop 11/05/17 at 16:16 ; Status DC Vancomycin HCl 1000 mg/Sodium Chloride 250 ml @ 250 mls/hr ONCE ONCE IV Last administered on 11/05/17 16:56; Start 11/05/17 at 16:15; Stop 11/05/17 at 17:14 ; Status DC Sodium Chloride (NS Flush) 2 ml UNSCH PRN IV FLUSH FLUSH AFTER USING IV ACCESS Last administered on 11/06/17at 12:24; Start 11/05/17 at 16:15 Sodium Chloride (NS Flush) 2 ml BID IV FLUSH Last administered on 11/07/17at 22: 37; Start 11/05/17 at 21:00 Naloxone HCl (Narcan Inj) 0.4 mg UNSCH PRN IV PUSH SEE LABEL COMMENTS; Start at 16:15 Dextrose (D50w (Vial) Inj) 50 ml UNSCH PRN IV PUSH HYPOGLYCEMIA-SEE COMMENTS; Start 11/05/17 at 16:15 Glucagon (Glucagon Inj) 1 mg UNSCH PRN OTHER HYPOGLYCEMIA-SEE COMMENTS; Start 11/05/17 at 16:15 Insulin Aspart (NovoLOG SUPPLEMENTAL SCALE) 1 ACHS SLIDING SCALE SQ Last administered on 11/07/17at 09:13; Start 11/05/17 at 17:00 Morphine Sulfate (Morphine Inj) 2 mg Q3H PRN IV PUSH BREAKTHROUGH PAIN Last administered on 11/08/17at 03:54; Start 11/05/17 at 17:30 Aspirin (Ecotrin Ec) 81 mg DAILY PO Last administered on 11/07/17at 10:27; Start 11/06/17 at 09:00 Atorvastatin Calcium (Lipitor) 10 mg HS PO Last administered on 11/07/17at 22:37 ; Start 11/05/17 at 21:00 Bupropion HCl (Wellbutrin Sr) 150 mg BID PO Last administered on 2/28/18at 22: 38; Start 11/05/17 at 21:00 Calcium Carbonate (Oscal) 2,000 mg Q8HR PO Last administered on 11/07/17at 22:38 ; Start 11/05/17 at 22:00 Cyclobenzaprine HCl (Flexeril) 10 mg BID PRN PO MUSCLE SPASM; Start 11/05/17 at 17:30 Gabapentin (Neurontin) 300 mg HS PO Last administered on 11/07/17at 22:36; Start 11/05/17 at 21:00 Insulin Aspart Prota 70%/Aspart 30% (NovoLOG MIX 70/ 30 INJ) 8 units BID@08,17 SQ Last administered on 11/07/17at 09:15; Start 11/06/17 at 08:00 Midodrine (Proamatine) 10 mg DAILY PO Last administered on 11/07/17at 06:16; Start 11/06/17 at 09:00 Pantoprazole Sodium (Protonix) 40 mg DAILY PO Last administered on 11/07/17at 10 :27; Start 11/06/17 at 09:00 Patient Own Medication PT OWN MED:COMBIVENT RESPIMA... BID INH ; Start 11/05/17 at 21:00; Status Future Hold Trazodone HCl (Desyrel) 100 mg HS PO Last administered on 11/07/17at 22:36; Start 11/05/17 at 21:00 Sodium Chloride 1,000 ml @ 0 mls/hr Q0M PRN OTHER For Prime & Rinse Back; Start 11/05/17 at 18:17 Heparin Sodium (Porcine) (Heparin Inj) 8,000 units UNSCH PRN IV FLUSH WITH DIALYSIS; Start 11/05/17 at 18:30 Sodium Chloride 1,000 ml @ 200 mls/hr Q5H PRN IV WITH DIALYSIS; Start 11/05/17 at 18:17 Sodium Chloride 1,000 ml @ 0 mls/hr Q0M PRN OTHER WITH DIALYSIS; Start at 18:17 Mannitol (Mannitol Inj) 12.5 gm UNSCH PRN IV WITH DIALYSIS; Start 11/05/17 at 18:30 Albumin Human 100 ml @ 60 mls/hr UNSCH PRN IV WITH DIALYSIS Last administered on 11/07/17at 16:19; Start 11/05/17 at 18:30 Sodium Chloride (NS Flush) 5 ml UNSCH PRN IV FLUSH WITH DIALYSIS; Start at 18:30 Heparin Sodium (Porcine) (Heparin Inj) UNSCH PRN .XX WITH DIALYSIS; Start at 18:30 Gentamicin Sulfate (Gentamicin Inj) 20 mg UNSCH PRN OTHER WITH DIALYSIS; Start 11/05/17 at 18:30 Ondansetron HCl (Zofran Inj) 4 mg UNSCH PRN IV PUSH WITH DIALYSIS; Start at 18:30 Acetaminophen (Tylenol) 650 mg UNSCH PRN PO for headach, pain, temp > 101F; Start 11/05/17 at 18:30 Diphenhydramine HCl (Benadryl) 25 mg UNSCH PRN PO for hives/itching/anaphylaxis ; Start 11/05/17 at 18:30 Nitroglycerin (Nitrostat Sl) 0.4 mg UNSCH PRN SL CHEST PAIN; Start 11/05/17 at 18:30 Clonidine (Catapres) 0.1 mg UNSCH PRN PO for BP > 180/100 X 2 readings; Start 11/05/17 at 18:30 Gelatin (Gelfoam 12 Mm/7 Mm Top) 1 foam UNSCH PRN TOP SEE LABEL COMMENTS; Start 11/05/17 at 18:30 Midodrine (Proamatine) 10 mg ONCE ONCE PO Last administered on 11/05/17at 19:09 ; Start 11/05/17 at 18:45; Stop 11/05/17 at 18:46; Status DC Heparin Sodium (Porcine) (Heparin Inj) 5,000 units Q8HR SQ Last administered on 11/07/17at 22:39; Start 11/05/17 at 22:00 Lorazepam (Ativan Inj) 1 mg ONCE ONCE IV PUSH Last administered on 11/06/17at 12:24; Start 11/06/17 at 12:00; Stop 11/06/17 at 12:01; Status DC Acetaminophen/ Hydrocodone Bitart ([place] 5-325 Mg) 1 tab Q4H PRN PO PAIN GREATER THAN 5; Start 11/06/17 at 16:45 Nystatin (Mycostatin Powder) 1 applic BID TOPICAL Last administered on at 22:38; Start 11/07/17 at 10:00 Lidocaine (L-M-X 4 Cream) 1 applic EVERY OTHER DAY PRN TOPICAL DISLODGEMENT Last administered on 11/07/17at 15:43; Start 11/07/17 at 09:30 Silver Sulfadiazine (Silvadene 1% Cream (50 Gm)) 1 applic EVERY OTHER DAY PRN TOPICAL DISLODGEMENT Last administered on 11/07/17at 15:43; Start 11/07/17 at 09: 30 Lactated Ringer's 1,000 ml @ 30 mls/hr Q24H PRN IV SEE LABEL COMMENTS; Start at 05:30; Stop 11/11/17 at 05:29 Sodium Chloride 500 ml @ 30 mls/hr [id number] PRN IV SEE LABEL COMMENTS; Start 11/08/17 at 05:30; Stop 11/11/17 at 05:29 Povidone Iodine (Betadine 5% Antisepsis Kit) 1 applic MACHINE CLOTH EXAMINER PRN EACH NARE SEE LABEL COMMENTS; Start 11/08/17 at 05:30; Stop 11/11/17 at 05:29 Chlorhexidine Gluconate (Chlorhexidine 2% Cloth) 3 pack MACHINE CLOTH EXAMINER PRN TOPICAL SEE LABEL COMMENTS; Start 11/08/17 at 05:30; Stop 11/11/17 at 05:29 A/P Problem List: (1) Leukocytosis ICD Code: D72.829 - Leukocytosis Status: Acute (2) Sacral ulcer ICD Code: L98.429 - Non-pressure chronic ulcer of back with unspecified severity (3) Diabetes mellitus ICD Code: E11.9 - Type 2 diabetes mellitus without complications (4) ESRD on hemodialysis ICD Code: N18.6 - End stage renal disease; Z99.2 - Dependence on renal dialysis Status: Chronic (5) Status post amputation of toe of right foot ICD Code: Z89.421 - Acquired absence of other right toe(s) Assessment and Plan 57-year-old female with PMH of hypotension, CHF, hypothyroidism , HLD, ESRD on HD, DM, neuropathy and COPD on chronic home O2 who presents to the the ED with complaints of left heel pain and tailbone pain. Sacral wound on presentation, right Achilles ulcers, status post right foot fourth digit amputation, leukocytosis -Complaints of increased pain to right heel. Patient currently being treated for osteomyelitis of right foot and is s/p right foot fourth digit amputation on 1/8/18 by -WBC count 23.6 with left shift on presentation, previous CBC on 09/18 with normal WBC -Patient afebrile on presentation, denies any fevers or chills at home. Tachycardic with heart rate 107, mets SIRS criteria -Patient given 1 g of IV vancomycin in the ED -Podiatry following. MRI ordered - Lactic acid 2.0 - BC x2 pending - Continue IV Vanc. by nephrology dosing to be given with HD -Pain control with IV morphine Patient have surgery on right foot November 08 with podiatry-keep n.p.o. Sacral ulcer: Likely pressure ulcer. -Consult wound care nurse DW THEM ESRD on HD -HD Sunday, Sunday, Sunday. -Potassium on admission 5.7, given 10 units of regular insulin IV, 50 mL's of D5W, and 1 g of calcium gluconate in ED -Nephrology following, for HD and vanco dosing, appreciate assistance -Continue midodrine for hypotension-patient needs to take this so that her blood pressure is high enough that she can take pain medication DM Neuropathy -Hemoglobin A1c from 09/14/17 was 7.3 -Diabetic diet, NovoLog 70/30 8 units twice daily, Accu-Cheks with insulin sliding scale -Continue home dose gabapentin COPD -Continue nasal cannula O2 DVT prophylaxis-subcu heparin Discharge Planning CONTINUE CURRENT WOUND CARE WILL NEED SNF Problem Qualifiers (1) Leukocytosis: Qualified Codes: D72.829 - Elevated white blood cell count, unspecified (2) Diabetes mellitus: Ronn Ag DO Nov 08, 2017 09:30
[2017-11-08] MEDS: HEPARIN SODIUM - SQ 10,000 UNITS/ML VIAL SQ SCH ×3 (10:00→23:28)
[2017-11-08 10:45] LABS: HEMOGLOBIN A1C 6.4 % (4.3-6.0)
[2017-11-08] MEDS ORDERED: ceFAZolin INJ 1,000 MG VIAL IV ONE (12:00)
[2017-11-08] MEDS ORDERED: PHENYLEPHRINE HCL 10 MG/ML VIAL IV ONE (12:00)
[2017-11-08] MEDS ORDERED: ONDANSETRON HCL 4 MG/2 ML VIAL IV ONE (12:00)
[2017-11-08] MEDS ORDERED: ePHEDrine/NS 25 MG/5 ML SYRINGE IV ONE (12:00)
[2017-11-08] MEDS ORDERED: PHENYLEPH/NS 1000 MCG/10 ML SYR IV ONE (12:00)
[2017-11-08] MEDS ORDERED: PROPOFOL 200 MG/20 ML AMP IV ONE (12:00)
[2017-11-08] MEDS ORDERED: LIDOCAINE HCL 1% PF 5 ML SYRINGE OTHER ONE (12:00)
[2017-11-08] MEDS ORDERED: BUPIVACAINE HCL PF 0.5% 30 ML VIAL ONE (12:42)
[2017-11-08] MEDS: CALCIUM CARBONATE 1.25 GM (CA 500 MG) TAB PO SCH ×3 (13:29→23:27)
[2017-11-08] MEDS ORDERED: MIDAZOLAM HCL 2 MG/2 ML VIAL ONE (14:14)
--- NOTE | 2017-11-08 15:47 | HHI.PR ---
Subjective Remarks Patient seen bedside preoperatively. Denies nausea, vomiting, fevers, or chills. Resting comfortably. She is in agreement with planned surgical intervention. Objective Vital Signs Date Time Temp Pulse Resp B/P (MAP) Pulse Ox O2 Delivery O2 Flow Rate FiO2 11/08/17 14:45 Nasal Cannula 3 11/08/17 11:20 98.0 87 20 81/51 (61) 97 11/08/17 07:56 3.00 11/08/17 07:33 97.7 85 18 81/49 (60) 93 11/08/17 03:18 Nasal Cannula 4.00 11/08/17 03:00 93 11/08/17 01:43 98.2 86 14 89/55 (66) 96 11/07/17 20:00 97.8 93 20 96/53 (67) 98 I/O 11/07/17 11/07/17 11/07/17 11/08/17 11/08/17 11/08/17 07:00 15:00 23:00 07:00 15:00 23:00 Output Total 1000 ml Balance -1000 ml Hemodialysis 1000 ml Result Diagram: 11/08/17 0530 11/08/17 0530 Imaging Last Impressions Foot MRI 11/06/17 0000 Signed Impressions: Service Date/Time: Monday, November 06, 2017 12:57 - CONCLUSION: 1. The combination of radiographic findings and the abnormal T1 and T2 signal in the distal 1 cm of the fourth metatarsal is suspicious for osteomyelitis. Please note that no contrast could be administered given the patient's end-stage renal disease. 2. Signal abnormality versus inhomogeneous fat suppression involving the proximal distal phalanx of the fifth digit. 3. There is subcutaneous edema on the lateral aspect of the foot and adjacent to the distal end of the fourth metatarsal. Damián Cabrera MD Ankle MRI 11/06/17 0000 Signed Impressions: Service Date/Time: Monday, November 06, 2017 12:57 - CONCLUSION: There are no imaging findings to indicate osteomyelitis around the ankle. Please refer to foot MRI report for further description of the foot findings. Damián Cabrera MD Foot X-Ray 11/05/17 0000 Signed Impressions: Service Date/Time: Sunday, November 05, 2017 18:25 - CONCLUSION: 1. Erosions at the fourth metatarsal head suspicious for osteomyelitis. Previous amputations as above. 2. Soft tissue ulcer posterior heel just above the calcaneus. Dmitry Anton MD Other Results Microbiology Date/Time Source Procedure Growth Status 11/05/17 16:25 Blood Peripheral Aerobic Blood Culture - Preliminary NO GROWTH IN 3 DAYS Resulted 11/05/17 16:25 Blood Peripheral Anaerobic Blood Culture - Preliminary NO GROWTH IN 3 DAYS Resulted Objective Remarks Right foot with dressing clean dry and intact to posterior heel. DP palpable, PT nonpalpable. No ascending erythema noted. Fourth interspace ulcer noted with drainage. Medications and IVs Current Medications Medications (Trade) Dose Ordered Sig/Mary Grace Route Start Time Stop Time Status Last Admin (NS Flush) 2 ml UNSCH PRN IV FLUSH 11/05/17 16:15 11/06/17 12:24 (NS Flush) 2 ml BID IV FLUSH 11/05/17 21:00 11/08/17 09:25 (Narcan Inj) 0.4 mg UNSCH PRN IV PUSH 11/05/17 16:15 (D50w (Vial) Inj) 50 ml UNSCH PRN IV PUSH 11/05/17 16:15 (Glucagon Inj) 1 mg UNSCH PRN OTHER 11/05/17 16:15 (NovoLOG SUPPLEMENTAL SCALE) 1 ACHS SLIDING SCALE SQ 11/05/17 17:00 11/07/17 09:13 (Morphine Inj) 2 mg Q3H PRN IV PUSH 11/05/17 17:30 11/08/17 03:54 (Ecotrin Ec) 81 mg DAILY PO 11/06/17 09:00 11/08/17 09:25 (Lipitor) 10 mg HS PO 11/05/17 21:00 11/07/17 22:37 (Wellbutrin Sr) 150 mg BID PO 11/05/17 21:00 11/08/17 09:25 (Oscal) 2,000 mg Q8HR PO 11/05/17 22:00 11/07/17 22:38 (Flexeril) 10 mg BID PRN PO 11/05/17 17:30 (Neurontin) 300 mg HS PO 11/05/17 21:00 11/07/17 22:36 (NovoLOG MIX 70/ 30 INJ) 8 units BID@08,17 SQ 11/06/17 08:00 11/07/17 09:15 (Proamatine) 10 mg DAILY PO 11/06/17 09:00 11/08/17 09:25 (Protonix) 40 mg DAILY PO 11/06/17 09:00 11/08/17 09:25 Patient Own Medication PT OWN MED:COMBIVENT RESPIMA... BID INH 11/05/17 21:00 Future Hold (Desyrel) 100 mg HS PO 11/05/17 21:00 11/07/17 22:36 Sodium Chloride 1,000 ml @ 0 mls/hr Q0M PRN OTHER 11/05/17 18:17 (Heparin Inj) 8,000 units UNSCH PRN IV FLUSH 11/05/17 18:30 Sodium Chloride 1,000 ml @ 200 mls/hr Q5H PRN IV 11/05/17 18:17 Sodium Chloride 1,000 ml @ 0 mls/hr Q0M PRN OTHER 11/05/17 18:17 (Mannitol Inj) 12.5 gm UNSCH PRN IV 11/05/17 18:30 Albumin Human 100 ml @ 60 mls/hr UNSCH PRN IV 11/05/17 18:30 11/07/17 16:19 (NS Flush) 5 ml UNSCH PRN IV FLUSH 11/05/17 18:30 (Heparin Inj) UNSCH PRN .XX 11/05/17 18:30 (Gentamicin Inj) 20 mg UNSCH PRN OTHER 11/05/17 18:30 (Zofran Inj) 4 mg UNSCH PRN IV PUSH 11/05/17 18:30 (Tylenol) 650 mg UNSCH PRN PO 11/05/17 18:30 (Benadryl) 25 mg UNSCH PRN PO 11/05/17 18:30 (Nitrostat Sl) 0.4 mg UNSCH PRN SL 11/05/17 18:30 (Catapres) 0.1 mg UNSCH PRN PO 11/05/17 18:30 (Gelfoam 12 Mm/7 Mm Top) 1 foam UNSCH PRN TOP 11/05/17 18:30 (Heparin Inj) 5,000 units Q8HR SQ 11/05/17 22:00 11/07/17 22:39 ([place] 5-325 Mg) 1 tab Q4H PRN PO 11/06/17 16:45 (Mycostatin Powder) 1 applic BID TOPICAL 11/07/17 10:00 11/08/17 09:26 (L-M-X 4 Cream) 1 applic EVERY OTHER DAY PRN TOPICAL 11/07/17 09:30 11/07/17 15:43 (Silvadene 1% Cream (50 Gm)) 1 applic EVERY OTHER DAY PRN TOPICAL 11/07/17 09:30 11/07/17 15:43 Lactated Ringer's 1,000 ml @ 30 mls/hr Q24H PRN IV 11/08/17 05:30 11/11/17 05:29 Sodium Chloride 500 ml @ 30 mls/hr [id number] PRN IV 11/08/17 05:30 11/11/17 05:29 11/08/17 15:17 (Betadine 5% Antisepsis Kit) 1 applic RINKMAN PRN EACH NARE 11/08/17 05:30 11/11/17 05:29 (Chlorhexidine 2% Cloth) 3 pack RINKMAN PRN TOPICAL 11/08/17 05:30 11/11/17 05:29 Assessment and Plan Assessment and Plan 57-year-old female with right foot possible osteomyelitis and right posterior ankle ulcer with exposed Achilles tendon Patient examined and evaluated with all questions answered MRI positive for OM, gangrene noted to fifth digit Spoke with patient about TMA, gastroc recession, and debridement and irrigation of posterior heel wound with possible graft placement Consent signed and discussed Heel offloading boot present to patient's right lower extremity Right lower extremity marked To OR today patient has remained n.p.o. Leonie Naqvi DPM Nov 08, 2017 15:47
[2017-11-08] MEDS ORDERED: ceFAZolin INJ 1,000 MG VIAL ONE (16:25)
--- NOTE | 2017-11-08 17:42 | HHI.PR ---
Immediate Post Op Note Procedure Date: Nov 08, 2017 Pre Op Diagnosis: Right fourth metatarsal osteomyelitis, right fifth digit gangrene Right posterior heel ulcer with Achilles tendon exposed Post Op Diagnosis: Right fourth metatarsal osteomyelitis, right fifth digit gangrene Right posterior heel ulcer with Achilles tendon exposed Surgeon: Leonie Naqvi Fur Matcher(s): None Procedure: 1. Right transmetatarsal amputation to. 2. Right posterior heel ulcer debridement and irrigation with wound VAC placement Findings: None Complications: None Specimen(s) removed: 1. Right foot soft tissue for micro 2. Right fourth metatarsal clearing margin for micro 3. Right fourth metatarsal clearing margin for path 4. Right forefoot for path Estimated blood loss: Less than 20 cc Anesthesia: General Drains: Hemovac Patient to: PACU Patient Condition: Good (Patient was transferred from the aorta PACU with vital signs stable and neurovascular status intact 2 right transmetatarsal amputation. Wound VAC functioning at 125 mmHg to posterior ankle) Leonie Naqvi DPM Nov 08, 2017 17:42
[2017-11-08] MEDS ORDERED: DO NOT ADM ANY ANTICOAGULANT DRUGS PRN (18:10)
[2017-11-08] MEDS ORDERED: PHENYLEPHRINE HCL 10 MG/ML VIAL ONE (18:29)
[2017-11-08] MEDS ORDERED: DEXTROSE 5% IN WATE 500 ML INJ 500 ML ONE (18:29)
--- NOTE | 2017-11-08 18:38 | HHI.NPPN ---
Subjective History of Present Illness 57-year-old diabetes, right foot infection, sacral decubitus, ESRD Additional Remarks s/p TMA post anesthesia Hypotension, obtunded Objective Data Data 11/08/17 11/09/17 19:00 07:00 Intake Total 250 ml Output Total 50 ml Balance 200 ml IV Total 250 ml Estimated Blood Loss 50 ml Vital Signs Date Time Temp Pulse Resp B/P (MAP) Pulse Ox O2 Delivery O2 Flow Rate FiO2 11/08/17 18:16 95 70 11/08/17 14:45 Nasal Cannula 3 11/08/17 11:20 98.0 87 20 81/51 (61) 97 11/08/17 07:56 3.00 11/08/17 07:33 97.7 85 18 81/49 (60) 93 11/08/17 03:18 Nasal Cannula 4.00 11/08/17 03:00 93 11/08/17 01:43 98.2 86 14 89/55 (66) 96 11/07/17 20:00 97.8 93 20 96/53 (67) 98 -: 11/08/17 0530 11/08/17 0530 Physical Exam General Appearance: Well Developed, Obese Neck Neck Exam: Neck Supple Pulmonary Resp Exam: Clear Bilaterally, Breath Sounds Equal Cardiology CV Exam: Regular, Normal Sinus Rhythm Gastrointestinal/Abdomen GI Exam: Soft, Bowel Sounds Present Integumentary Skin Exam: Lesion(s) Extremeties Extremities Exam: Trace Edema Extremeties Remarks s/p TMA Assessment/Plan Problem List: (1) ESRD (end stage renal disease) ICD Codes: N18.6 - End-stage renal disease Status: Chronic Plan: Patient is on hemodialysis next dialysis tomorrow Follow-up Sunday, Sunday and Sunday schedule HD tomorrow s/p Rt foot TMA rt heel surgery Doing poorly low BP, on Vasopressor transfer to [facility] [place] (2) Sacral ulcer ICD Codes: L98.429 - Non-pressure chronic ulcer of back with unspecified severity Plan: Patient is getting vancomycin (3) Diabetes mellitus ICD Codes: E11.9 - Type 2 diabetes mellitus without complications Plan: Continue to monitor (4) Hypotension ICD Codes: I95.9 - Hypotension Status: Resolved Plan: Patient takes midodrine (5) Morbid obesity ICD Codes: E66.01 - Morbid (severe) obesity due to excess calories Status: Chronic Problem Qualifiers (1) Diabetes mellitus: Sparkle,Sajid MD Nov 08, 2017 18:38
[2017-11-08] MEDS: PHENYLEPHRINE 40 MG in D5W 500 ML IV PRN (18:45)
[2017-11-08] MEDS ORDERED: EPOETIN ALFA 10,000 UNITS/ML VIAL IV PUSH PRN (19:00)
[2017-11-08] MEDS ORDERED: *RESP: ALBUTEROL 2.5 MG/3 ML NEB (PRN) PERIprocedural Use ONLY NEB ONE (19:34)
--- NOTE | 2017-11-08 20:57 | PD.CONS ---
[facility] Service Critical Care Medicine Consult Requested By Dr. Saldivar Reason for Consult septic shock Primary Care Physician Unknown History of Present Illness This is a 57-year-old female with end-stage liver disease on intermittent hemodialysis in for urgent transmetatarsal amputation. In the operating room she was worsening with aseptic with systolic in the 60s. Due to her end-stage kidney disease, she was only given 400 cc crystalloid IV fluids for concerns over volume overload. She arrived to the PACU hypotensive and unstable. Critical care medicine was consulted to evaluate and manage her hemodynamics and presumed septic shock. Of note looking back at her former admissions, her systolic blood pressure usually runs 80-100 systolic but no higher. On my evaluation, the patient denied any complaints except for fatigue. She denied leg pain. Denies chest pain, shortness of breath, fever, chills, nausea, vomiting, abdominal pain. She was given a liter of crystalloids in PACU and started on phenylephrine infusion to maintain endorgan perfusion. Review of Systems Constitutional: COMPLAINS OF: Fatigue, DENIES: Fever Respiratory: DENIES: Apneas, Cough, Wheezing, Hemoptysis, Sputum production, Shortness of breath Cardiovascular: DENIES: Chest pain, Palpitations, Syncope, Dyspnea on Exertion , Lower Extremity Edema Gastrointestinal: DENIES: Abdominal pain, Constipation, Diarrhea, Nausea, Vomiting Neurologic: DENIES: Abnormal gait, Headache Psychiatric: DENIES: Confusion Past Family Social History Allergies: Coded Allergies: levofloxacin (Unverified Allergy, Severe, Anaphylaxis, 09/12/17) ANAPHYLAXIS Past Medical History ESRD on HD MWF hypotension on midodrine diet-controlled diabetes CHF COPD hypothyroidism hyperlipidemia anxiety depression hypocalcemia neuropathy Past Surgical History Nonfunctioning AV fistula Cholecystectomy Parathyroidectomy Cataract removal Hysterectomy Appendectomy Right first and second toe amputations Recent right groin permacath placement abdominal peritoneal catheter placement/removed Dental extractions Reported Medications Novolog Mix 70-30 Inj (Insulin Aspart Prota 70%/Aspart 30%) 1,000 Unit/10 Ml Vial 8 Units SQ BID@08,17 Flexeril (Cyclobenzaprine HCl) 10 Mg Tab 10 Mg PO BID PRN Calcium Carbonate (Antacid) 500 Mg Chew 1,000 Mg CHEW Q4HR Aspirin EC (Aspirin) 81 Mg Tabdr 81 Mg PO DAILY Combivent Respimat Inh (Ipratropium-Albuterol Inh) 20-100 Fpc/Act Aero 2 Puff INH BID Gabapentin 300 Mg Cap 300 Mg PO HS Trazodone (Trazodone HCl) 100 Mg Tablet 100 Mg PO HS Calcium Carbonate 500 Mg Calcium (1250 Mg) Tab 2,000 Mg PO Q8HR 1,250 mg calcium carbonate (500 mg elemental calcium) Midodrine 10 Mg Tab 10 Mg PO DAILY Bupropion HCl ER 24 HR (Bupropion HCl) 150 Mg Tab 300 Mg PO DAILY Atorvastatin (Atorvastatin Calcium) 10 Mg Tab 10 Mg PO HS Pantoprazole (Pantoprazole Sodium) 40 Mg Tab 40 Mg PO DAILY Active Ordered Medications See MAR Family History Reviewed and found to be noncontributory to her acute illness Social History Smokes tobacco, off/on since age 18, quit about month ago Alcohol:denies Illicit drug use: denies Physical Exam Vital Signs Vital Signs Date Time Temp Pulse Resp B/P (MAP) Pulse Ox O2 Delivery O2 Flow Rate FiO2 11/08/17 20:46 95 Simple Mask 8.00 11/08/17 19:00 109 67/47 11/08/17 18:55 106 67/45 11/08/17 18:45 106 64/23 11/08/17 18:16 95 70 11/08/17 18:00 96.4 123 16 89/56 (67) 83 Bi-Pap 70 11/08/17 14:45 Nasal Cannula 3 11/08/17 11:20 98.0 87 20 81/51 (61) 97 11/08/17 07:56 3.00 11/08/17 07:33 97.7 85 18 81/49 (60) 93 11/08/17 03:18 Nasal Cannula 4.00 11/08/17 03:00 93 11/08/17 01:43 98.2 86 14 89/55 (66) 96 Physical Exam GENERAL: Middle-aged female, lying in bed, still somewhat somnolent from anesthesia HEENT: Normocephalic. Atraumatic. Pupils equal, round, reactive, conjugate. Mucous membranes are dry NECK: Trachea is midline. Obesity and large neck prevents accurate assessment of JVD CHEST: Equal chest rise. Nasal cannula oxygen. CARDIOVASCULAR: Normal rate, regular rhythm. Hypotensive with systolic in the 60s. ABDOMEN: Morbidly obese, soft, nontender, nondistended. No guarding. MUSCULOSKELETAL: Pulses 1+. No peripheral edema. NEUROLOGICAL: RASS -2. Arousing from anesthesia. No focal deficits. Follows commands. Laboratory Laboratory Tests Test 11/08/17 05:30 White Blood Count 7.4 Red Blood Count 3.77 Hemoglobin 10.6 Hematocrit 34.0 Mean Corpuscular Volume 90.3 Mean Corpuscular Hemoglobin 28.2 Mean Corpuscular Hemoglobin Concent 31.2 Red Cell Distribution Width 18.4 Platelet Count 268 Mean Platelet Volume 6.7 Neutrophils (%) (Auto) 70.9 Lymphocytes (%) (Auto) 9.8 Monocytes (%) (Auto) 10.0 Eosinophils (%) (Auto) 8.9 Basophils (%) (Auto) 0.4 Neutrophils # (Auto) 5.2 Lymphocytes # (Auto) 0.7 Monocytes # (Auto) 0.7 Eosinophils # (Auto) 0.7 Basophils # (Auto) 0.0 CBC Comment DIFF FINAL Differential Comment Blood Urea Nitrogen 36 Creatinine 6.20 Random Glucose 96 Total Protein 8.0 Albumin 2.9 Calcium Level 8.5 Phosphorus Level 3.0 Magnesium Level 2.2 Alkaline Phosphatase 55 Aspartate Amino Transf (AST/SGOT) 7 Alanine Aminotransferase (ALT/SGPT) 9 Total Bilirubin 0.3 Sodium Level 137 Potassium Level 4.0 Chloride Level 100 Carbon Dioxide Level 31.7 Anion Gap 5 Estimat Glomerular Filtration Rate 8 Hemoglobin A1c 6.4 Free Thyroxine 0.93 Thyroid Stimulating Hormone 3rd Gen 3.590 Date/Time Source Procedure Growth Status 11/05/17 16:25 Blood Peripheral Aerobic Blood Culture - Preliminary NO GROWTH IN 3 DAYS Resulted 11/05/17 16:25 Blood Peripheral Anaerobic Blood Culture - Preliminary NO GROWTH IN 3 DAYS Resulted Result Diagram: 11/08/17 0530 11/08/17 0530 Imaging Last Impressions Foot MRI 11/06/17 0000 Signed Impressions: Service Date/Time: Monday, November 06, 2017 12:57 - CONCLUSION: 1. The combination of radiographic findings and the abnormal T1 and T2 signal in the distal 1 cm of the fourth metatarsal is suspicious for osteomyelitis. Please note that no contrast could be administered given the patient's end-stage renal disease. 2. Signal abnormality versus inhomogeneous fat suppression involving the proximal distal phalanx of the fifth digit. 3. There is subcutaneous edema on the lateral aspect of the foot and adjacent to the distal end of the fourth metatarsal. Damián Cabrera MD Ankle MRI 11/06/17 0000 Signed Impressions: Service Date/Time: Monday, November 06, 2017 12:57 - CONCLUSION: There are no imaging findings to indicate osteomyelitis around the ankle. Please refer to foot MRI report for further description of the foot findings. Damián Cabrera MD Foot X-Ray 11/05/17 0000 Signed Impressions: Service Date/Time: Sunday, November 05, 2017 18:25 - CONCLUSION: 1. Erosions at the fourth metatarsal head suspicious for osteomyelitis. Previous amputations as above. 2. Soft tissue ulcer posterior heel just above the calcaneus. Dmitry Anton MD Septic Shock Reassessment Septic shock perfusion: reassessment completed Assessment and Plan Assessment and Plan Assessment: 57-year-old female with end-stage renal disease on hemodialysis with right foot osteomyelitis now status post urgent transmetatarsal amputation for worsening osteomyelitis. Now in what appears to be septic shock. We will continue vasopressors and gentle fluid resuscitation. Admit to ICU. Close monitoring. Remains critically ill with high risk of given septic shock, osteomyelitis, and significant medical comorbidities. Active problems: Right foot osteomyelitis Status post urgent transmetatarsal amputation 11/08 Septic shock End-stage renal disease on intermittent hemodialysis Plan: Admit to ICU 1 L IV fluid bolus Increase home midodrine to 10 mg p.o. every 8 hours Phenylephrine for a goal map greater than 65, chronically hypotensive with systolic in the 80s-100s, so we will target that for systolic Risk-benefit of central venous access at this point given her chronic end-stage renal disease and likely poor central vasculature is in favor of conservative measures and peripheral IV access only. May need central access if she continues to decline. Continue current antibiotics plan which is intermittent Vanco dosing during hemodialysis This patient remains critically ill with one or more organ systems which are or may become a threat to life. I have spent in excess of 33 minutes discontinuously in the care and management of this patient. This time is exclusive of procedures, and includes, but is not limited to, evaluation of the patient, review of the medical record, discussions with family, consultants, nursing staff, or respiratory therapy, and documentation in the medical record. Gurinder Jacobs MD Nov 08, 2017 20:57
--- NOTE | 2017-11-08 21:16 | PD.CAR.PN ---
CVT Progress Note Subjective/Hospital Course: Referral received Full consult TF [facility]olly Objective: Vital Signs Date Time Temp Pulse Resp B/P (MAP) Pulse Ox O2 Delivery O2 Flow Rate FiO2 11/08/17 20:46 95 Simple Mask 8.00 11/08/17 20:03 102 16 96 Simple Mask 6 11/08/17 20:00 97.8 99 15 99/57 (71) 88 Simple Mask 6 11/08/17 19:55 100 18 103/58 (73) 91 Nasal Cannula 4 11/08/17 19:50 100 18 102/54 (70) 95 Nasal Cannula 4 11/08/17 19:45 100 18 103/61 (75) 97 Nasal Cannula 4 11/08/17 19:40 101 18 108/57 (74) 97 Nasal Cannula 4 11/08/17 19:35 100 18 103/51 (68) 95 Bi-Pap 50 11/08/17 19:30 100 18 103/51 (68) 95 Bi-Pap 50 11/08/17 19:25 100 18 108/62 (77) 97 Bi-Pap 50 11/08/17 19:20 102 18 91/54 (66) 95 Bi-Pap 50 11/08/17 19:15 101 18 91/55 (67) 96 Bi-Pap 50 11/08/17 19:10 101 17 106/53 (70) 96 Bi-Pap 50 11/08/17 19:05 102 17 117/59 (78) 94 Bi-Pap 60 11/08/17 19:00 105 17 67/47 (54) 94 Bi-Pap 60 11/08/17 19:00 109 67/47 11/08/17 18:55 106 18 67/50 (56) 94 Bi-Pap 60 11/08/17 18:55 106 67/45 11/08/17 18:50 106 17 67/50 (56) 98 Bi-Pap 60 11/08/17 18:45 106 17 64/23 (37) 98 Bi-Pap 70 11/08/17 18:45 106 64/23 11/08/17 18:30 110 17 65/32 (43) 99 Bi-Pap 70 11/08/17 18:16 95 70 11/08/17 18:15 120 17 67/40 (49) 96 Bi-Pap 70 11/08/17 18:08 120 15 73/51 (58) 94 Bi-Pap 70 11/08/17 18:00 96.4 123 16 89/56 (67) 83 Bi-Pap 70 11/08/17 14:45 Nasal Cannula 3 11/08/17 11:20 98.0 87 20 81/51 (61) 97 11/08/17 07:56 3.00 11/08/17 07:33 97.7 85 18 81/49 (60) 93 11/08/17 03:18 Nasal Cannula 4.00 11/08/17 03:00 93 11/08/17 01:43 98.2 86 14 89/55 (66) 96 Result Diagram: 11/08/17 0530 11/08/17 0530 Tania Ramsay MD Nov 08, 2017 21:16
[2017-11-08] MEDS ORDERED: CHLORHEXIDINE GLUCONATE 2 % 1 PACK (2 CLOTHS)(extra cloths) TOPICAL PRN (22:15)
[2017-11-08] MEDS: traZODone HCL 100 MG TAB PO SCH (23:26)
[2017-11-08] MEDS: GABAPENTIN 300 MG CAP PO SCH (23:27)
[2017-11-08] MEDS: ATORVASTATIN 10 MG TAB PO SCH (23:27)
[2017-11-09] VITALS (20 sets, daily range): BP systolic 92–122; BP diastolic 53–67; PULSE 80–95; RESP 13–23; TEMP 98.1–98.9; O2SAT 96–99
[2017-11-09] MEDS: CHLORHEXIDINE GLUCONATE 2 % 1 PACK (2 CLOTHS)(taper/protocol) TOPICAL SCH (04:00)
[2017-11-09] MEDS: PHENYLEPHRINE 40 MG in D5W 500 ML IV PRN ×2 (04:46→14:22)
[2017-11-09] MEDS: HEPARIN SODIUM - SQ 10,000 UNITS/ML VIAL SQ SCH ×3 (04:49→21:09)
[2017-11-09] MEDS: CALCIUM CARBONATE 1.25 GM (CA 500 MG) TAB PO SCH ×3 (05:36→21:08)
[2017-11-09] MEDS: MIDODRINE 5 MG TAB PO SCH ×3 (05:36→21:08)
[2017-11-09 06:19] LABS: AUTOMATED NEUTROPHIL # 9.5 TH/MM3 (1.8-7.7); BASOPHIL % 0.4 % (0.0-2.0); EOSINOPHIL # 0.6 TH/MM3 (0-0.4); EOSINOPHIL % 4.9 % (0.0-4.0); HEMATOCRIT 39.7 % (35.0-46.0); HEMOGLOBIN 12.2 GM/DL (11.6-15.3); LYMPH % 5.6 % (9.0-44.0); LYMPHOCYTE # 0.6 TH/MM3 (1.0-4.8); MEAN CELL VOLUME 90.5 FL (80.0-100.0); MEAN CORPUSCULAR HEMOGLOBIN 27.9 PG (27.0-34.0); MEAN CORPUSCULAR HGB CONC 30.9 % (32.0-36.0); MEAN PLATELET VOLUME 6.8 FL (7.0-11.0); MONO % 6.2 % (0.0-8.0); MONOCYTE # 0.7 TH/MM3 (0-0.9); NEUT % 82.9 % (16.0-70.0); PLATELET COUNT 310 TH/MM3 (150-450); RED BLOOD COUNT 4.38 MIL/MM3 (4.00-5.30); RED CELL DISTRIBUTION WIDTH 17.7 % (11.6-17.2); WHITE BLOOD COUNT 11.5 TH/MM3 (4.0-11.0)
[2017-11-09 06:54] LABS: ALBUMIN 2.9 GM/DL (3.4-5.0); ALKALINE PHOSPHATASE 107 U/L (45-117); ALT (GPT) 10 U/L (10-53); AST (GOT) 14 U/L (15-37); BICARBONATE 27.7 MEQ/L (21.0-32.0); BLOOD UREA NITROGEN 45 MG/DL (7-18); CALCIUM 8.8 MG/DL (8.5-10.1); CHLORIDE 96 MEQ/L (98-107); CREATININE 7.37 MG/DL (0.50-1.00); GLOMERULAR FILTRATION RATE 7 ML/MIN (>89); GLUCOSE,RANDOM 107 MG/DL (74-106); MAGNESIUM 2.2 MG/DL (1.5-2.5); PHOSPHORUS 3.9 MG/DL (2.5-4.9); SODIUM (NA) 134 MEQ/L (136-145); TOTAL BILIRUBIN ADULT 0.4 MG/DL (0.2-1.0); TOTAL PROTEIN 7.8 GM/DL (6.4-8.2)
[2017-11-09] MEDS: MORPHINE SULFATE 2 MG/ML INJ IV PUSH PRN (07:11)
[2017-11-09] MEDS: INSULIN ASPAR PROT 70/30 1,000 UNITS/10 ML VIAL SQ SCH ×2 (08:00→17:00)
[2017-11-09] MEDS: INSULIN ASPART SUPPLEMENTAL SCALE SQ SCH ×4 (08:00→21:00)
[2017-11-09] MEDS: NYSTATIN 100,000 U/GM PWD 15 GM BTL TOPICAL SCH ×2 (09:00→21:00)
[2017-11-09] MEDS: buPROPion HCL 150 MG SUSTAINED RELEASE TAB PO SCH ×2 (09:00→21:09)
[2017-11-09] MEDS: GENTAMICIN SULFATE 20 MG/2 ML VIAL OTHER PRN (10:23)
[2017-11-09] MEDS: HEPARIN SODIUM - IV 10,000 UNITS/10 ML VIAL PRN (10:23)
[2017-11-09] MEDS: ALBUMIN 25% INJ 100 ML IV PRN (10:33)
--- NOTE | 2017-11-09 10:41 | HHI.NPPN ---
Subjective History of Present Illness 57-year-old diabetes, right foot infection, sacral decubitus, ESRD Additional Remarks s/p TMA Hypotension, alert and responsive Objective Data Data Vital Signs Date Time Temp Pulse Resp B/P (MAP) Pulse Ox O2 Delivery O2 Flow Rate FiO2 11/09/17 06:30 87 102/53 11/09/17 06:15 88 111/51 11/09/17 06:00 89 102/55 11/09/17 06:00 89 11/09/17 05:15 86 82/43 11/09/17 04:46 88 92/53 11/09/17 04:00 85 11/09/17 04:00 98.7 85 13 98/57 (71) 96 11/09/17 02:46 96 Nasal Cannula 3.00 11/09/17 02:39 96 Nasal Cannula 3.00 11/09/17 02:00 89 11/09/17 00:30 93 81/43 11/09/17 00:00 95 11/09/17 00:00 98.9 95 23 94/53 (67) 98 11/09/17 00:00 98 Nasal Cannula 6.00 11/08/17 23:00 93 81/49 11/08/17 22:45 96 83/51 11/08/17 22:35 96 72/51 11/08/17 22:00 96 11/08/17 21:00 96 110/63 11/08/17 20:46 95 Simple Mask 8.00 11/08/17 20:30 100 11/08/17 20:30 97.9 100 24 110/65 (80) 100 11/08/17 20:30 100 Simple Mask 8.00 11/08/17 20:30 100 110/65 11/08/17 20:03 102 16 96 Simple Mask 6 11/08/17 20:00 97.8 99 15 99/57 (71) 88 Simple Mask 6 11/08/17 20:00 96 Simple Mask 8.00 11/08/17 19:55 100 18 103/58 (73) 91 Nasal Cannula 4 11/08/17 19:50 100 18 102/54 (70) 95 Nasal Cannula 4 11/08/17 19:45 100 18 103/61 (75) 97 Nasal Cannula 4 11/08/17 19:40 101 18 108/57 (74) 97 Nasal Cannula 4 11/08/17 19:35 100 18 103/51 (68) 95 Bi-Pap 50 11/08/17 19:30 100 18 103/51 (68) 95 Bi-Pap 50 11/08/17 19:30 98 Nasal Cannula 4.00 11/08/17 19:25 100 18 108/62 (77) 97 Bi-Pap 50 11/08/17 19:20 102 18 91/54 (66) 95 Bi-Pap 50 11/08/17 19:15 101 18 91/55 (67) 96 Bi-Pap 50 11/08/17 19:10 101 17 106/53 (70) 96 Bi-Pap 50 11/08/17 19:05 102 17 117/59 (78) 94 Bi-Pap 60 11/08/17 19:00 105 17 67/47 (54) 94 Bi-Pap 60 11/08/17 19:00 109 67/47 11/08/17 18:55 106 18 67/50 (56) 94 Bi-Pap 60 11/08/17 18:55 106 67/45 11/08/17 18:50 106 17 67/50 (56) 98 Bi-Pap 60 11/08/17 18:45 106 17 64/23 (37) 98 Bi-Pap 70 11/08/17 18:45 106 64/23 11/08/17 18:30 110 17 65/32 (43) 99 Bi-Pap 70 11/08/17 18:16 95 70 11/08/17 18:15 120 17 67/40 (49) 96 Bi-Pap 70 11/08/17 18:08 120 15 73/51 (58) 94 Bi-Pap 70 11/08/17 18:00 96.4 123 16 89/56 (67) 83 Bi-Pap 70 11/08/17 14:45 Nasal Cannula 3 11/08/17 11:20 98.0 87 20 81/51 (61) 97 -: 11/09/17 0557 11/09/17 0557 Microbiology 11/08/17 Fungal Smear - Final, Resulted NO FUNGAL ELEMENTS SEEN. 11/08/17 Fungal Culture, Resulted Pending 11/08/17 Acid Fast Stain, Received Pending 11/08/17 Mycobacterial Culture, Received Pending 11/08/17 Gram Stain - Final, Resulted 11/08/17 Wound Culture, Resulted Pending 11/08/17 Fungal Smear - Final, Resulted NO FUNGAL ELEMENTS SEEN. 11/08/17 Fungal Culture, Resulted Pending 11/08/17 Acid Fast Stain, Received Pending 11/08/17 Mycobacterial Culture, Received Pending 11/08/17 Gram Stain - Final, Resulted 11/08/17 Wound Culture, Resulted Pending Physical Exam General Appearance: Well Developed, Obese Neck Neck Exam: Neck Supple Pulmonary Resp Exam: Clear Bilaterally, Breath Sounds Equal Cardiology CV Exam: Regular, Normal Sinus Rhythm Gastrointestinal/Abdomen GI Exam: Soft, Bowel Sounds Present Integumentary Skin Exam: Lesion(s) Extremeties Extremities Exam: Trace Edema Extremeties Remarks s/p TMA Assessment/Plan Problem List: (1) ESRD (end stage renal disease) ICD Codes: N18.6 - End-stage renal disease Status: Chronic Plan: Patient is on hemodialysis Follow-up Sunday, Sunday and Sunday schedule HD proceedings noted seen during treatment UF 2 L BP improved on Vasopressor s/p Rt foot TMA rt heel surgery on Vasopressor Phenylephrine in [facility] (2) Sacral ulcer ICD Codes: L98.429 - Non-pressure chronic ulcer of back with unspecified severity Plan: Patient is getting vancomycin (3) Diabetes mellitus ICD Codes: E11.9 - Type 2 diabetes mellitus without complications Plan: Continue to monitor (4) Hypotension ICD Codes: I95.9 - Hypotension Status: Resolved Plan: Patient takes midodrine (5) Morbid obesity ICD Codes: E66.01 - Morbid (severe) obesity due to excess calories Status: Chronic Problem Qualifiers (1) Diabetes mellitus: Frank Villagran MD Nov 09, 2017 10:41
--- NOTE | 2017-11-09 12:52 | MP ---
cc: Leonie Naqvi DPM DATE OF OPERATION: 11/08/2017 SURGEON: Leonie Naqvi DPM VENEER GLUER: None. PREOPERATIVE DIAGNOSES: 1. Right foot 5th digit gangrene. 2. Right foot 4th metatarsal osteomyelitis. 3. Right foot posterior Achilles tendon ulceration, with exposed tendon. POSTOPERATIVE DIAGNOSES: 1. Right foot 5th digit gangrene. 2. Right foot 4th metatarsal osteomyelitis. 3. Right foot posterior Achilles tendon ulceration, with exposed tendon. PROCEDURE PERFORMED: 1. Transmetatarsal amputation performed to right foot. 2. Debridement and irrigation of posterior ankle ulcer, with wound VAC placement. ANESTHESIA: General with local infiltrate, 10 milliliters of Marcaine 0.5% plain. HEMOSTASIS: None. ESTIMATED BLOOD LOSS: Less than 20 milliliters. MATERIALS: 2-0, 3-0 Prolene, Hemovac drain, wound VAC placed to posterior heel. INJECTABLES: None. COMPLICATIONS: None. INDICATIONS FOR PROCEDURE: The patient is a 57-year-old female, previously seen on 09/27/2017. At which time, she underwent a 4th digit amputation. The patient was to followup in office, however, the patient never followed in office and she was seen in the emergency department for leucocytosis of 23,000. The patient presented with necrotic 5th digit, with draining sinus to 4th digit amputation site and right posterior ankle ulceration, with tendon exposed. The patient states she had issues getting into the see myself in clinic. The patient understands all recommendations, alternatives, benefits and complications associated with moving forward with surgical intervention. MRI showed increased signal intensity to 4th metatarsal. Fourth metatarsal with signs of osteomyelitis. We will proceed with planned surgical intervention of right 5th amputation, as the patient has already had amputations of hallux 2nd digit and 4th digits. DESCRIPTION OF PROCEDURE: The patient was brought over to the operating room, placed on the operating room table in a supine position. General anesthesia was then induced. Local infiltrate of 10 milliliters of 0.5% Marcaine plain was infiltrated about the right foot. The right foot was then prepped and draped in the usual sterile fashion. Attention was directed to right forefoot, where gangrenous, desiccated 5th digit was noted, as well as suture still present to incision of 4th digit amputation. [place] incision was then performed, encompassing 5th digit, 3rd digit and 4th interspace. This incision was deepened through skin to subcutaneous tissue with care taken to retrract all vital neurovascular structures. All bleeders were cauterized with electrocautery and Vicryl ties as necessary. The incision was deepened through to bone. Fifth and 3rd digits were transected at metatarsophalangeal joint and passed from the field. The forefoot from the right foot was sent to pathology. Sagittal saw was then utilized to transect metatarsals 3, 4 and 5, after [place] elevator was used to remove periosteum. Proximal clearing margin of 4th metatarsal was sent for pathology and micro. The right foot soft tissue was sent for micro. Samples were sent post lavage. The patient was copiously irrigated with 3 liters of normal saline. Transmetatarsal amputation site was then closed with 2-0, 3-0 Prolene and a Hemovac drain was applied to site. The patient's site was then dressed with Adaptic, 4 x 4s, cast padding and NIRAV. Hemovac was noted to be functioning. Attention was then directed to right posterior ankle, where a 2 x 2 cm ulceration was noted, which probed tendon. This site was debrided of all nonviable tissue with a 15 blade. The site was copiously irrigated. Wound VAC was placed to right posterior ankle. DISPOSITION AND RECOMMENDATIONS: The patient tolerated the procedure and anesthesia well. She was transferred from the OR to PACU with vital signs stable and neurovascular status intact. We will await OR cultures, pull drains postoperative day #2. Anticipate the patient going to senior care facility with IV antibiotics and wound VAC. PIERO Garza , 05:51 PM , 06:56 PM
--- NOTE | 2017-11-09 13:54 | HHI.CCPN ---
Subjective Remarks/Hospital Course 11/08: This is a 57-year-old female with end-stage liver disease on intermittent hemodialysis in for urgent transmetatarsal amputation. In the operating room she was worsening with aseptic with systolic in the 60s. Due to her end-stage kidney disease, she was only given 400 cc crystalloid IV fluids for concerns over volume overload. She arrived to the PACU hypotensive and unstable. Critical care medicine was consulted to evaluate and manage her hemodynamics and presumed septic shock. Of note looking back at her former admissions, her systolic blood pressure usually runs 80-100 systolic but no higher. On my evaluation, the patient denied any complaints except for fatigue. She denied leg pain. Denies chest pain, shortness of breath, fever, chills, nausea, vomiting, abdominal pain. She was given a liter of crystalloids in PACU and started on phenylephrine infusion to maintain endorgan perfusion. 11/09: Just underwent dialysis. Remains on Ayaz-Synephrine about 40 mics per minute. Resting in bed comfortably not in any acute distress. Awake and alert. Knows she is at the hospital. Objective Vital Signs Date Time Temp Pulse Resp B/P (MAP) Pulse Ox O2 Delivery O2 Flow Rate FiO2 11/09/17 12:00 84 11/09/17 12:00 98.1 15 122/61 (81) 96 11/09/17 07:00 Nasal Cannula 3.00 11/08/17 19:35 50 Intake and Output 11/09/17 11/09/17 11/10/17 08:00 16:00 00:00 Intake Total 620 ml 100 ml Output Total 0 ml 3000 ml Balance 620 ml -2900 ml Result Diagram: 11/09/17 0557 11/09/17 0557 Imaging Last Impressions Foot MRI 11/06/17 0000 Signed Impressions: Service Date/Time: Monday, November 06, 2017 12:57 - CONCLUSION: 1. The combination of radiographic findings and the abnormal T1 and T2 signal in the distal 1 cm of the fourth metatarsal is suspicious for osteomyelitis. Please note that no contrast could be administered given the patient's end-stage renal disease. 2. Signal abnormality versus inhomogeneous fat suppression involving the proximal distal phalanx of the fifth digit. 3. There is subcutaneous edema on the lateral aspect of the foot and adjacent to the distal end of the fourth metatarsal. Damián Cabrera MD Ankle MRI 11/06/17 0000 Signed Impressions: Service Date/Time: Monday, November 06, 2017 12:57 - CONCLUSION: There are no imaging findings to indicate osteomyelitis around the ankle. Please refer to foot MRI report for further description of the foot findings. Damián Cabrera MD Foot X-Ray 11/05/17 0000 Signed Impressions: Service Date/Time: Sunday, November 05, 2017 18:25 - CONCLUSION: 1. Erosions at the fourth metatarsal head suspicious for osteomyelitis. Previous amputations as above. 2. Soft tissue ulcer posterior heel just above the calcaneus. Dmitry Anton MD Procedures Hemodialysis Objective Remarks GENERAL: Middle-aged female, lying in bed, not in any acute distress HEENT: Normocephalic. Atraumatic. Pupils equal, round, reactive, conjugate. Mucous membranes are dry NECK: Trachea is midline. Obesity and large neck prevents accurate assessment of JVD CHEST: Equal chest rise. Nasal cannula oxygen. CARDIOVASCULAR: Normal rate, regular rhythm. Hypotensive with systolic in the 60s. ABDOMEN: Morbidly obese, soft, nontender, nondistended. No guarding. MUSCULOSKELETAL: Pulses 1+. No peripheral edema. NEUROLOGICAL: Awake alert oriented 3. No focal deficits. Follows commands. A/P Assessment and Plan Assessment: 57-year-old female with end-stage renal disease on hemodialysis with right foot osteomyelitis now status post urgent transmetatarsal amputation for worsening osteomyelitis. Now in what appears to be septic shock. We will continue vasopressors and gentle fluid resuscitation. Admit to ICU. Close monitoring. Remains critically ill with high risk of given septic shock, osteomyelitis, and significant medical comorbidities. Active problems: Right foot osteomyelitis Status post urgent transmetatarsal amputation 11/08 Septic shock End-stage renal disease on intermittent hemodialysis Plan: Admit to ICU s/p 1 L IV fluid bolus Increase home midodrine to 10 mg p.o. every 8 hours Phenylephrine for a goal map greater than 65, chronically hypotensive with systolic in the 80s-100s, so we will target that for systolic Risk-benefit of central venous access at this point given her chronic end-stage renal disease and likely poor central vasculature is in favor of conservative measures and peripheral IV access only. May need central access if she continues to decline. Continue current antibiotics plan which is intermittent Vanco dosing during hemodialysis This patient remains critically ill with one or more organ systems which are or may become a threat to life. I have spent in excess of 30 minutes discontinuously in the care and management of this patient. This time is exclusive of procedures, and includes, but is not limited to, evaluation of the patient, review of the medical record, discussions with family, consultants, nursing staff, or respiratory therapy, and documentation in the medical record. Leonidas Rowe MD Nov 09, 2017 13:54
[2017-11-09] MEDS: SODIUM CHLORIDE 0.9% FLUSH 10 ML FLUSH IV FLUSH SCH ×2 (14:22→21:00)
[2017-11-09] MEDS: PANTOPRAZOLE SOD 40 MG DELAYED RELEASE TAB PO SCH (17:02)
[2017-11-09] MEDS: ASPIRIN EC 81 MG TABEC PO SCH (17:02)
[2017-11-09] MEDS: traZODone HCL 100 MG TAB PO SCH (21:07)
[2017-11-09] MEDS: ATORVASTATIN 10 MG TAB PO SCH (21:08)
[2017-11-09] MEDS: GABAPENTIN 300 MG CAP PO SCH (21:08)
--- NOTE | 2017-11-09 21:44 | HHI.PR ---
Subjective Remarks Patient seen bedside this evening. Denies nausea, vomiting, fevers, or chills. Denies calf pain. Resting comfortably. Patient states at times her posterior heel can be painful about a 6/10 which she states is decreased from her usual pain level. Objective Vital Signs Date Time Temp Pulse Resp B/P (MAP) Pulse Ox O2 Delivery O2 Flow Rate FiO2 11/09/17 19:00 89 79/41 11/09/17 18:30 85 102/54 11/09/17 18:00 86 11/09/17 18:00 86 98/60 11/09/17 17:00 83 11/09/17 17:00 83 97/56 11/09/17 16:00 98.1 85 19 119/67 (84) 97 11/09/17 16:00 85 11/09/17 16:00 85 119/67 11/09/17 15:00 85 11/09/17 14:22 92 86/49 11/09/17 14:00 93 11/09/17 14:00 93 79/49 11/09/17 13:30 90 92/54 11/09/17 13:00 84 11/09/17 12:00 84 11/09/17 12:00 98.1 84 15 122/61 (81) 96 11/09/17 11:00 84 11/09/17 10:00 85 11/09/17 09:00 87 11/09/17 08:00 98.3 90 15 101/56 (71) 98 11/09/17 08:00 90 11/09/17 07:00 96 Nasal Cannula 3.00 11/09/17 07:00 93 11/09/17 06:30 87 102/53 11/09/17 06:15 88 111/51 11/09/17 06:00 89 102/55 11/09/17 06:00 89 11/09/17 05:15 86 82/43 11/09/17 04:46 88 92/53 11/09/17 04:00 85 11/09/17 04:00 98.7 85 13 98/57 (71) 96 11/09/17 02:46 96 Nasal Cannula 3.00 11/09/17 02:39 96 Nasal Cannula 3.00 11/09/17 02:00 89 11/09/17 00:30 93 81/43 11/09/17 00:00 95 11/09/17 00:00 98.9 95 23 94/53 (67) 98 11/09/17 00:00 98 Nasal Cannula 6.00 11/08/17 23:00 93 81/49 11/08/17 22:45 96 83/51 11/08/17 22:35 96 72/51 11/08/17 22:00 96 I/O 11/08/17 11/08/17 11/08/17 11/09/17 11/09/17 11/09/17 07:00 15:00 23:00 07:00 15:00 23:00 Intake Total 1250 ml 620 ml 100 ml 700 ml Output Total 50 ml 0 ml 3000 ml Balance 1200 ml 620 ml -2900 ml 700 ml Intake Oral 120 ml 700 ml IV Total 1250 ml 500 ml 100 ml Output Urine Total 0 ml Drainage Total 0 ml Hemodialysis 3000 ml Estimated Blood Loss 50 ml # Bowel Movements 0 Result Diagram: 11/09/17 0557 11/09/17 0557 Imaging Last Impressions Foot MRI 11/06/17 0000 Signed Impressions: Service Date/Time: Monday, November 06, 2017 12:57 - CONCLUSION: 1. The combination of radiographic findings and the abnormal T1 and T2 signal in the distal 1 cm of the fourth metatarsal is suspicious for osteomyelitis. Please note that no contrast could be administered given the patient's end-stage renal disease. 2. Signal abnormality versus inhomogeneous fat suppression involving the proximal distal phalanx of the fifth digit. 3. There is subcutaneous edema on the lateral aspect of the foot and adjacent to the distal end of the fourth metatarsal. Damián Cabrera MD Ankle MRI 11/06/17 0000 Signed Impressions: Service Date/Time: Monday, November 06, 2017 12:57 - CONCLUSION: There are no imaging findings to indicate osteomyelitis around the ankle. Please refer to foot MRI report for further description of the foot findings. Damián Cabrera MD Foot X-Ray 11/05/17 0000 Signed Impressions: Service Date/Time: Sunday, November 05, 2017 18:25 - CONCLUSION: 1. Erosions at the fourth metatarsal head suspicious for osteomyelitis. Previous amputations as above. 2. Soft tissue ulcer posterior heel just above the calcaneus. Dmitry Anton MD Procedures Status post right transmetatarsal amputation and right posterior heel ulcer debridement, postop day 1 Other Results Microbiology Date/Time Source Procedure Growth Status 11/05/17 16:25 Blood Peripheral Aerobic Blood Culture - Preliminary NO GROWTH IN 4 DAYS Resulted 11/05/17 16:25 Blood Peripheral Anaerobic Blood Culture - Preliminary NO GROWTH IN 4 DAYS Resulted 11/08/17 16:30 Wound Foot Fungal Smear - Final NO FUNGAL ELEMENTS SEEN. Resulted 11/08/17 16:30 Wound Foot Fungal Culture Pending Resulted Objective Remarks Wound VAC present to right posterior heel functioning at 125 mm per mercury Lower extremity physical exam: Vascular: Dorsalis pedis nonpalpable, posterior tibial nonpalpable. Capillary refill time within normal limits to digits 5 bilateral foot. Edema present right foot. Neuro: Gross sensation intact to bilateral lower extremity. Pinpoint sensation decreased. No hyperalgesia noted to bilateral lower extremity Dermatology: Hemovac present to right lower extremity with approximately 10 cc of sanguinous drainage. Incision to right transmetatarsal amputation with skin well coapted and sutures intact. No purulent drainage upon compression no active drainage noted. Hemovac drain removed with no incident. Musculoskeletal: Tender to palpation to posterior heel at the Achilles tendon. Medications and IVs Current Medications Medications (Trade) Dose Ordered Sig/Mary Grace Route Start Time Stop Time Status Last Admin (NS Flush) 2 ml UNSCH PRN IV FLUSH 11/05/17 16:15 11/06/17 12:24 (NS Flush) 2 ml BID IV FLUSH 11/05/17 21:00 11/09/17 21:00 (Narcan Inj) 0.4 mg UNSCH PRN IV PUSH 11/05/17 16:15 (D50w (Vial) Inj) 50 ml UNSCH PRN IV PUSH 11/05/17 16:15 (Glucagon Inj) 1 mg UNSCH PRN OTHER 11/05/17 16:15 (NovoLOG SUPPLEMENTAL SCALE) 1 ACHS SLIDING SCALE SQ 11/05/17 17:00 11/09/17 21:00 (Morphine Inj) 2 mg Q3H PRN IV PUSH 11/05/17 17:30 11/09/17 07:11 (Ecotrin Ec) 81 mg DAILY PO 11/06/17 09:00 11/09/17 17:02 (Lipitor) 10 mg HS PO 11/05/17 21:00 11/09/17 21:08 (Wellbutrin Sr) 150 mg BID PO 11/05/17 21:00 11/09/17 21:09 (Oscal) 2,000 mg Q8HR PO 11/05/17 22:00 11/09/17 21:08 (Flexeril) 10 mg BID PRN PO 11/05/17 17:30 (Neurontin) 300 mg HS PO 11/05/17 21:00 11/09/17 21:08 (NovoLOG MIX 70/ 30 INJ) 8 units BID@08,17 SQ 11/06/17 08:00 11/07/17 09:15 (Protonix) 40 mg DAILY PO 11/06/17 09:00 11/09/17 17:02 Patient Own Medication PT OWN MED:COMBIVENT RESPIMA... BID INH 11/05/17 21:00 Future Hold (Desyrel) 100 mg HS PO 11/05/17 21:00 11/09/17 21:07 Sodium Chloride 1,000 ml @ 0 mls/hr Q0M PRN OTHER 11/05/17 18:17 (Heparin Inj) 8,000 units UNSCH PRN IV FLUSH 11/05/17 18:30 Sodium Chloride 1,000 ml @ 200 mls/hr Q5H PRN IV 11/05/17 18:17 Sodium Chloride 1,000 ml @ 0 mls/hr Q0M PRN OTHER 11/05/17 18:17 (Mannitol Inj) 12.5 gm UNSCH PRN IV 11/05/17 18:30 Albumin Human 100 ml @ 60 mls/hr UNSCH PRN IV 11/05/17 18:30 11/09/17 10:33 (NS Flush) 5 ml UNSCH PRN IV FLUSH 11/05/17 18:30 (Heparin Inj) UNSCH PRN .XX 11/05/17 18:30 11/09/17 10:23 (Gentamicin Inj) 20 mg UNSCH PRN OTHER 11/05/17 18:30 11/09/17 10:23 (Zofran Inj) 4 mg UNSCH PRN IV PUSH 11/05/17 18:30 (Tylenol) 650 mg UNSCH PRN PO 11/05/17 18:30 (Benadryl) 25 mg UNSCH PRN PO 11/05/17 18:30 (Nitrostat Sl) 0.4 mg UNSCH PRN SL 11/05/17 18:30 (Catapres) 0.1 mg UNSCH PRN PO 11/05/17 18:30 (Gelfoam 12 Mm/7 Mm Top) 1 foam UNSCH PRN TOP 11/05/17 18:30 (Heparin Inj) 5,000 units Q8HR SQ 11/05/17 22:00 11/09/17 21:09 (Bristow 5-325 Mg) 1 tab Q4H PRN PO 11/06/17 16:45 (Mycostatin Powder) 1 applic BID TOPICAL 11/07/17 10:00 11/09/17 09:00 (L-M-X 4 Cream) 1 applic EVERY OTHER DAY PRN TOPICAL 11/07/17 09:30 11/07/17 15:43 (Silvadene 1% Cream (50 Gm)) 1 applic EVERY OTHER DAY PRN TOPICAL 11/07/17 09:30 11/07/17 15:43 Sodium Chloride 500 ml @ 30 mls/hr [id number] PRN IV 11/08/17 05:30 11/11/17 05:29 11/08/17 15:17 (Betadine 5% Antisepsis Kit) 1 applic SHOWPLACE MANAGER PRN EACH NARE 11/08/17 05:30 11/11/17 05:29 (Chlorhexidine 2% Cloth) 3 pack SHOWPLACE MANAGER PRN TOPICAL 11/08/17 05:30 11/11/17 05:29 Phenylephrine HCl 40 mg/Dextrose 500 ml @ 30 mls/hr TITRATE PRN IV 11/08/17 19:00 11/09/17 14:22 (Proamatine) 10 mg Q8HR PO 11/08/17 22:00 11/09/17 21:08 Miscellaneous Information Patient in critical care unit? Ass... Q361D .XX 11/08/17 22:15 (Chlorhexidine 2% Cloth) 3 pack DAILY@04 TOPICAL 11/09/17 04:00 11/13/17 04:01 11/09/17 04:00 (Chlorhexidine 2% Cloth) 3 pack UNSCH PRN TOPICAL 11/08/17 22:15 11/13/17 22:01 (Epogen Inj) 4,000 units UNSCH PRN IV PUSH 11/09/17 10:45 Assessment and Plan Assessment and Plan 57-year-old female with right foot osteomyelitis and right posterior ankle ulcer with exposed Achilles tendon Status post right transmetatarsal amputation with debridement and irrigation of posterior ankle ulcer with wound VAC placement Patient examined and evaluated with all questions answered Dressing change to right foot; applied Adaptic, 4 x 4's, Dolores, ABD, and El Wound VAC functioning at 125 mm per mercury, and wound VAC to stay in place We will continue to follow patient and evaluate progress to right posterior ankle ulcer Right TMA appropriately healing OR culture results and pathology pending Leonie Naqvi DPM Nov 09, 2017 21:44
[2017-11-10] VITALS (14 sets, daily range): BP systolic 89–106; BP diastolic 50–56; PULSE 72–85; RESP 11–24; TEMP 98–98.9; O2SAT 95–99
[2017-11-10] MEDS: CHLORHEXIDINE GLUCONATE 2 % 1 PACK (2 CLOTHS)(taper/protocol) TOPICAL SCH (02:42)
[2017-11-10] MEDS: MORPHINE SULFATE 2 MG/ML INJ IV PUSH PRN ×2 (02:42→10:15)
[2017-11-10] MEDS: MIDODRINE 5 MG TAB PO SCH ×3 (06:42→20:23)
[2017-11-10] MEDS: CALCIUM CARBONATE 1.25 GM (CA 500 MG) TAB PO SCH ×3 (06:42→20:23)
[2017-11-10] MEDS: HEPARIN SODIUM - SQ 10,000 UNITS/ML VIAL SQ SCH ×3 (06:42→20:24)
[2017-11-10] MEDS: INSULIN ASPAR PROT 70/30 1,000 UNITS/10 ML VIAL SQ SCH ×2 (08:00→17:00)
[2017-11-10] MEDS: INSULIN ASPART SUPPLEMENTAL SCALE SQ SCH ×3 (08:00→19:50)
[2017-11-10] MEDS: buPROPion HCL 150 MG SUSTAINED RELEASE TAB PO SCH ×2 (09:04→20:23)
[2017-11-10] MEDS: PANTOPRAZOLE SOD 40 MG DELAYED RELEASE TAB PO SCH (09:04)
[2017-11-10] MEDS: ASPIRIN EC 81 MG TABEC PO SCH (09:04)
[2017-11-10] MEDS: PHENYLEPHRINE 40 MG in D5W 500 ML IV PRN (09:07)
--- NOTE | 2017-11-10 14:21 | HHI.NPPN ---
Subjective History of Present Illness 57-year-old diabetes, right foot infection, sacral decubitus, ESRD Additional Remarks s/p TMA. She is comfortable, alert, oriented. Had dialysis yesterday. Daughter is at the bedside. Review of Systems General Constitutional: Fatigue Objective Data Data Vital Signs Date Time Temp Pulse Resp B/P (MAP) Pulse Ox O2 Delivery O2 Flow Rate FiO2 11/10/17 12:00 75 11/10/17 10:00 81 11/10/17 09:07 80 108/52 11/10/17 08:00 80 11/10/17 08:00 98.9 80 24 106/51 (69) 97 11/10/17 07:55 97 Nasal Cannula 2.00 11/10/17 07:00 97 Nasal Cannula 3.00 11/10/17 06:45 80 92/51 11/10/17 06:00 80 11/10/17 05:45 85 104/66 11/10/17 04:15 79 92/53 11/10/17 04:00 79 11/10/17 04:00 98.6 79 11 92/50 (64) 95 11/10/17 04:00 79 92/50 11/10/17 03:45 79 78/41 11/10/17 03:30 80 79/41 11/10/17 02:30 80 83/38 11/10/17 02:00 85 11/10/17 02:00 85 83/42 11/10/17 00:00 98.9 76 12 98/56 (70) 99 11/10/17 00:00 76 11/09/17 22:00 80 11/09/17 20:00 98.5 82 14 92/56 (68) 99 11/09/17 20:00 82 11/09/17 19:43 98 Nasal Cannula 3.00 11/09/17 19:15 86 96/56 11/09/17 19:00 98 Nasal Cannula 3.00 11/09/17 19:00 89 79/41 11/09/17 18:30 85 102/54 11/09/17 18:00 86 11/09/17 18:00 86 98/60 11/09/17 17:00 83 11/09/17 17:00 83 97/56 11/09/17 16:00 98.1 85 19 119/67 (84) 97 11/09/17 16:00 85 11/09/17 16:00 85 119/67 11/09/17 15:00 85 11/09/17 14:22 92 86/49 -: 11/09/17 0557 11/09/17 0557 Physical Exam General Appearance: Well Developed, Obese Neck Neck Exam: Neck Supple Pulmonary Resp Exam: Clear Bilaterally, Breath Sounds Equal Cardiology CV Exam: Regular, Normal Sinus Rhythm Gastrointestinal/Abdomen GI Exam: Soft, Bowel Sounds Present Integumentary Skin Exam: Lesion(s) Extremeties Extremities Exam: Trace Edema Assessment/Plan Problem List: (1) ESRD (end stage renal disease) ICD Codes: N18.6 - End-stage renal disease Status: Chronic Plan: Patient is on hemodialysis Follow-up Sunday, Sunday and Sunday schedule s/p Rt foot TMA rt heel surgery (2) Sacral ulcer ICD Codes: L98.429 - Non-pressure chronic ulcer of back with unspecified severity Plan: Patient is getting vancomycin (3) Diabetes mellitus ICD Codes: E11.9 - Type 2 diabetes mellitus without complications Plan: Continue to monitor, maintain blood glucose between 140 and 180. (4) Hypotension ICD Codes: I95.9 - Hypotension Status: Resolved Plan: Patient takes midodrine (5) Morbid obesity ICD Codes: E66.01 - Morbid (severe) obesity due to excess calories Status: Chronic Problem Qualifiers (1) Diabetes mellitus: Moe Muse MD Nov 10, 2017 14:21
--- NOTE | 2017-11-10 15:47 | HHI.CCPN ---
Subjective Remarks/Hospital Course 11/08: This is a 57-year-old female with end-stage liver disease on intermittent hemodialysis in for urgent transmetatarsal amputation. In the operating room she was worsening with aseptic with systolic in the 60s. Due to her end-stage kidney disease, she was only given 400 cc crystalloid IV fluids for concerns over volume overload. She arrived to the PACU hypotensive and unstable. Critical care medicine was consulted to evaluate and manage her hemodynamics and presumed septic shock. Of note looking back at her former admissions, her systolic blood pressure usually runs 80-100 systolic but no higher. On my evaluation, the patient denied any complaints except for fatigue. She denied leg pain. Denies chest pain, shortness of breath, fever, chills, nausea, vomiting, abdominal pain. She was given a liter of crystalloids in PACU and started on phenylephrine infusion to maintain endorgan perfusion. 11/09: Just underwent dialysis. Remains on Ayaz-Synephrine about 40 mics per minute. Resting in bed comfortably not in any acute distress. Awake and alert. Knows she is at the hospital. 11/10: Resting comfortably in bed, not in any acute distress. On Phenylephrine 30mcg/min initially when I evaluated pt. Objective Vital Signs Date Time Temp Pulse Resp B/P (MAP) Pulse Ox O2 Delivery O2 Flow Rate FiO2 11/10/17 14:00 82 11/10/17 12:00 98.6 12 92/54 (67) 98 11/10/17 07:55 Nasal Cannula 2.00 11/08/17 19:35 50 Intake and Output 11/10/17 11/10/17 11/11/17 08:00 16:00 00:00 Intake Total 240 ml Output Total 0 ml Balance 240 ml Result Diagram: 11/09/17 0557 11/09/17 0557 Imaging Last Impressions Foot MRI 11/06/17 0000 Signed Impressions: Service Date/Time: Monday, November 06, 2017 12:57 - CONCLUSION: 1. The combination of radiographic findings and the abnormal T1 and T2 signal in the distal 1 cm of the fourth metatarsal is suspicious for osteomyelitis. Please note that no contrast could be administered given the patient's end-stage renal disease. 2. Signal abnormality versus inhomogeneous fat suppression involving the proximal distal phalanx of the fifth digit. 3. There is subcutaneous edema on the lateral aspect of the foot and adjacent to the distal end of the fourth metatarsal. Damián Cabrera MD Ankle MRI 11/06/17 0000 Signed Impressions: Service Date/Time: Monday, November 06, 2017 12:57 - CONCLUSION: There are no imaging findings to indicate osteomyelitis around the ankle. Please refer to foot MRI report for further description of the foot findings. Damián Cabrera MD Foot X-Ray 11/05/17 0000 Signed Impressions: Service Date/Time: Sunday, November 05, 2017 18:25 - CONCLUSION: 1. Erosions at the fourth metatarsal head suspicious for osteomyelitis. Previous amputations as above. 2. Soft tissue ulcer posterior heel just above the calcaneus. Dmitry Anton MD Procedures Hemodialysis Objective Remarks GENERAL: Middle-aged female, lying in bed, not in any acute distress HEENT: Normocephalic. Atraumatic. Pupils equal, round, reactive, conjugate. Mucous membranes are dry NECK: Trachea is midline. Obesity and large neck prevents accurate assessment of JVD CHEST: Equal chest rise. Nasal cannula oxygen. CARDIOVASCULAR: Normal rate, regular rhythm. Hypotensive with systolic in the 60s. ABDOMEN: Morbidly obese, soft, nontender, nondistended. No guarding. MUSCULOSKELETAL: Pulses 1+. No peripheral edema. Rt foot with dressing/ NIRAV wrap over surgical site, TATE drain in place NEUROLOGICAL: Awake alert oriented 3. No focal deficits. Follows commands. A/P Assessment and Plan Assessment: 57-year-old female with end-stage renal disease on hemodialysis with right foot osteomyelitis now status post urgent transmetatarsal amputation for worsening osteomyelitis. Now in what appears to be septic shock. We will continue vasopressors and gentle fluid resuscitation. Admit to ICU. Close monitoring. Remains critically ill with high risk of given septic shock, osteomyelitis, and significant medical comorbidities. Active problems: Right foot osteomyelitis Status post urgent transmetatarsal amputation 3/ Septic shock End-stage renal disease on intermittent hemodialysis Plan: Admit to ICU s/p 1 L IV fluid bolus Increase home midodrine to 10 mg p.o. every 8 hours Phenylephrine for a goal map greater than 65, chronically hypotensive with systolic in the 80s-100s, so we will target that for systolic. Turned off phenylephrine during my evaluation and patient doing fine with MAP 70s. Risk-benefit of central venous access at this point given her chronic end-stage renal disease and likely poor central vasculature is in favor of conservative measures and peripheral IV access only. Continue current antibiotics plan which is intermittent Vanco dosing during hemodialysis ID consulted for sepsis/ osteomyelitis. Consult and transfer to Hospitalist service for medical management. Leonidas Rowe MD Nov 10, 2017 15:47
--- NOTE | 2017-11-10 17:01 | MB ---
cc: Tania Ramsay MD DATE OF CONSULT: 11/10/2017 CONSULTING PHYSICIAN: Dr. Tania Ramsay, vascular surgery REASON FOR CONSULTATION: Gangrene of the right foot, peripheral vascular disease. HISTORY OF PRESENT ILLNESS: This 57-year-old female was admitted to intensive care unit with septic signs and symptoms and hypotension. She was evaluated and found to have gangrene of the right foot and underwent emergency transmetatarsal amputation of the right foot. She was resuscitated after that and question arises about any vascular implications and further vascular workup. PAST MEDICAL HISTORY: Complex, includes end-stage renal disease on dialysis, poorly controlled diabetes mellitus, COPD, hyperlipidemia, obesity, neuropathy. SURGICAL HISTORY: Cholecystectomy, parathyroidectomy, hysterectomy, appendectomy, surgeries on the left foot and right foot, PD catheter placements, unsuccessful fistula. MEDICATIONS: Multiple. PHYSICAL EXAMINATION: GENERAL: Reveals a 57-year-old female, overweight. Mildly obtunded after dialysis, does not answer questions appropriately, however acknowledges presence. HEENT: Normocephalic. No trauma to head. Pupils equally reactive. Extraocular muscles cannot be tested. NECK: Bilateral carotid pulses. No bruits. No masses in the neck. Scars from previous surgery from parathyroidectomy. CHEST: Bilateral breath sounds decreased over both lung hernandes. Patient has moderate to severe COPD. HEART: Regular rhythm. ABDOMEN: Soft, moderately obese. Active bowel sounds. EXTREMITIES: Patient has actually palpable femoral pulses. I do not feel any distal pulses from there. She has dopplerable popliteal pulses and in the feet I do not detect pedal dorsalis pedis or posterior pulse in either foot by palpation however these are Doppler detectable. Patient had a previous surgery on the left foot. She has some deformities of her left foot with contractures and on the right side she has a dressing on from recent transmetatarsal amputation. At this point, the patient does not appear to be septic. 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 This is the main reason that her pulses are not palpable and only detectable by Doppler. I reviewed laboratory and diagnostic procedures. This patient is bedridden and nonambulatory. She has now undergone a transmetatarsal resection of the right foot and she has also exposed Achilles tendon on the right. This is a nonsalveable situation as far as functional foot. I will do CTA with a run-off just to see what the situation is on the other side, but in face of this patient will require below-knee amputation in the near future. Thank you very much for the referral. MD GOLDEN Adair/yina , 01:55 PM , 05:01 PM MTDGary
[2017-11-10] MEDS: NYSTATIN 100,000 U/GM PWD 15 GM BTL TOPICAL SCH (20:22)
[2017-11-10] MEDS: ATORVASTATIN 10 MG TAB PO SCH (20:23)
[2017-11-10] MEDS: traZODone HCL 100 MG TAB PO SCH (20:23)
[2017-11-10] MEDS: GABAPENTIN 300 MG CAP PO SCH (20:23)
[2017-11-10] MEDS: SODIUM CHLORIDE 0.9% FLUSH 10 ML FLUSH IV FLUSH SCH (20:24)
[2017-11-11] VITALS (14 sets, daily range): BP systolic 73–113; BP diastolic 45–60; PULSE 74–81; RESP 11–31; TEMP 97.9–98.5; O2SAT 97–100
[2017-11-11] MEDS: CHLORHEXIDINE GLUCONATE 2 % 1 PACK (2 CLOTHS)(taper/protocol) TOPICAL SCH (02:10)
[2017-11-11] MEDS: PHENYLEPHRINE INJ 40 MG in DEXTROSE 5% IN WATE 500 ML INJ 496 ML IV PRN ×2 (04:32)
[2017-11-11] MEDS: MORPHINE SULFATE 2 MG/ML INJ IV PUSH PRN ×3 (04:32→21:06)
[2017-11-11] MEDS: MIDODRINE 5 MG TAB PO SCH ×3 (04:33→20:37)
[2017-11-11] MEDS: CALCIUM CARBONATE 1.25 GM (CA 500 MG) TAB PO SCH ×3 (04:33→20:52)
[2017-11-11] MEDS: HEPARIN SODIUM - SQ 10,000 UNITS/ML VIAL SQ SCH ×3 (04:33→20:37)
[2017-11-11] MEDS: INSULIN ASPAR PROT 70/30 1,000 UNITS/10 ML VIAL SQ SCH (08:00)
[2017-11-11] MEDS: INSULIN ASPART SUPPLEMENTAL SCALE SQ SCH ×3 (08:00→20:36)
[2017-11-11] MEDS: buPROPion HCL 150 MG SUSTAINED RELEASE TAB PO SCH ×2 (10:09→20:37)
[2017-11-11] MEDS: ASPIRIN EC 81 MG TABEC PO SCH (10:09)
[2017-11-11] MEDS: PANTOPRAZOLE SOD 40 MG DELAYED RELEASE TAB PO SCH (10:09)
[2017-11-11] MEDS: SODIUM CHLORIDE 0.9% FLUSH 10 ML FLUSH IV FLUSH SCH ×2 (10:09→20:38)
--- NOTE | 2017-11-11 11:26 | PD.ID.CON ---
History of Present Illness Service ID Consult Requested By [facility] Reason for Consult Evaluation and Mment of Severe sepsis, Rt foot 4th digit osteomyelitis and sacral decub cellulitis. Primary Care Physician Unknown Diagnoses: History of Present Illness Ms. Jenkins is a 57-year-old -Martiniquais female with past medical history significant for osteomyelitis, sepsis, end-stage renal disease on hemodialysis last seen in the hospital in September and she had amputation of her first and third toes on the right side. Patient was seen by Dr. Steffany Nicolas of infectious disease during that admission and it was decided to send her home on IV vancomycin to be received in hemodialysis. Per review of records it appears that the last date of vancomycin was scheduled to be November 16, 2017. Patient states that she was told not to ambulate and has been lying in bed however it appears that she was discharged on weightbearing status as patient did not follow-up with podiatry postoperatively. Patient has a hemodialysis catheter in the groin due to her body habitus through which she undergoes hemodialysis. Patient's past medical history is also significant for morbid obesity, diet- controlled diabetes, CHF, COPD, hypothyroidism, anxiety depression. Patient reportedly was at her dialysis center and was sent from dialysis center for transmetatarsal amputation. Patient reportedly was complaining of back pain at the site of her prior sacral decubiti as well as her right foot. Patient is reportedly on Midrin as outpatient. Upon admission patient was found to be in hypertension systolic blood pressure in the 60s. When she arrived to the PACU she was reportedly thought to be hypotensive and unstable. Unsure if she has a normal low blood pressure went given the fact that she is on midodrine. Infectious disease is consulted for evaluation and management of severe sepsis, right foot fourth digit osteomyelitis and sacral decubitus cellulitis. Review of Systems ROS Limitations: Poor Historian Constitutional: DENIES: Diaphoretic episodes, Fatigue, Fever, Weight gain, Weight loss, Chills, Dizziness, Change in appetite, Night Sweats Endocrine: DENIES: Abnorml menstrual pattern, Heat/cold intolerance, Polydipsia , Polyuria, Polyphagia Eyes: DENIES: Blurred vision, Diplopia, Eye inflammation, Eye pain, Vision loss , Photosensitivity, Double Vision Ears, nose, mouth, throat: DENIES: Tinnitus, Hearing loss, Vertigo, Nasal discharge, Oral lesions, Throat pain, Hoarseness, Ear Pain, Running Nose, Epistaxis, Sinus Pain, Toothache, Odynophagia Respiratory: DENIES: Apneas, Cough, Snoring, Wheezing, Hemoptysis, Sputum production, Shortness of breath Cardiovascular: DENIES: Chest pain, Palpitations, Syncope, Dyspnea on Exertion , PND, Lower Extremity Edema, Orthopnea, Claudication Gastrointestinal: DENIES: Abdominal pain, Black stools, Bloody stools, Constipation, Diarrhea, Nausea, Vomiting, Difficulty Swallowing, Anorexia Genitourinary: DENIES: Abnormal vaginal bleeding, Dysmenorrhea, Dyspareunia, Sexual dysfunction, Urinary frequency, Urinary incontinence, Urgency, Hematuria , Dysuria, Nocturia, Vaginal discharge Musculoskeletal: COMPLAINS OF: Joint pain, Back pain Integumentary: DENIES: Abnormal pigmentation, Pruritus, Rash, Nail changes, Breast masses, Breast skin changes, Nipple discharge Hematologic/lymphatic: DENIES: Bruising, Lymphadenopathy Immunologic/allergic: DENIES: Eczema, Urticaria Neurologic: DENIES: Abnormal gait, Headache, Localized weakness, Paresthesias, Seizures, Speech Problems, Tremor, Poor Balance Psychiatric: DENIES: Anxiety, Confusion, Mood changes, Depression, Hallucinations, Agitation, Suicidal Ideation, Homicidal Ideation, Delusions Except as stated in HPI: all other systems reviewed are Neg Past Family Social History Allergies: Coded Allergies: levofloxacin (Unverified Allergy, Severe, Anaphylaxis, 09/12/17) ANAPHYLAXIS Past Medical History Past Medical History ESRD on HD MWF hypotension on midodrine diet-controlled diabetes CHF COPD hypothyroidism hyperlipidemia anxiety depression hypocalcemia neuropathy Past Surgical History Nonfunctioning AV fistula Cholecystectomy Parathyroidectomy Cataract removal Hysterectomy Appendectomy Right first and second toe amputations Recent right groin permacath placement abdominal peritoneal catheter placement/removed Dental extractions Reported Medications Reported Meds & Active Scripts Active Novolog Mix 70-30 Inj (Insulin Aspart Prota 70%/Aspart 30%) 1,000 Unit/10 Ml Vial 8 Units SQ BID@08,17 Flexeril (Cyclobenzaprine HCl) 10 Mg Tab 10 Mg PO BID PRN Calcium Carbonate (Antacid) 500 Mg Chew 1,000 Mg CHEW Q4HR Aspirin EC (Aspirin) 81 Mg Tabdr 81 Mg PO DAILY Reported Combivent Respimat Inh (Ipratropium-Albuterol Inh) 20-100 Correction/Act Aero 2 Puff INH BID Gabapentin 300 Mg Cap 300 Mg PO HS Trazodone (Trazodone HCl) 100 Mg Tablet 100 Mg PO HS Calcium Carbonate 500 Mg Calcium (1250 Mg) Tab 2,000 Mg PO Q8HR 1,250 mg calcium carbonate (500 mg elemental calcium) Midodrine 10 Mg Tab 10 Mg PO DAILY Bupropion HCl ER 24 HR (Bupropion HCl) 150 Mg Tab 300 Mg PO DAILY Atorvastatin (Atorvastatin Calcium) 10 Mg Tab 10 Mg PO HS Pantoprazole (Pantoprazole Sodium) 40 Mg Tab 40 Mg PO DAILY Active Ordered Medications Current Medications Medications (Trade) Dose Ordered Sig/Mary Grace Route Start Time Stop Time Status Last Admin (NS Flush) 2 ml UNSCH PRN IV FLUSH 11/05/17 16:15 11/06/17 12:24 (NS Flush) 2 ml BID IV FLUSH 11/05/17 21:00 11/11/17 20:38 (Narcan Inj) 0.4 mg UNSCH PRN IV PUSH 11/05/17 16:15 (D50w (Vial) Inj) 50 ml UNSCH PRN IV PUSH 11/05/17 16:15 (Glucagon Inj) 1 mg UNSCH PRN OTHER 11/05/17 16:15 (NovoLOG SUPPLEMENTAL SCALE) 1 ACHS SLIDING SCALE SQ 11/05/17 17:00 11/09/17 21:00 (Morphine Inj) 2 mg Q3H PRN IV PUSH 11/05/17 17:30 11/11/17 21:06 (Ecotrin Ec) 81 mg DAILY PO 11/06/17 09:00 11/11/17 10:09 (Lipitor) 10 mg HS PO 11/05/17 21:00 11/11/17 20:37 (Wellbutrin Sr) 150 mg BID PO 11/05/17 21:00 11/11/17 20:37 (Oscal) 2,000 mg Q8HR PO 11/05/17 22:00 11/11/17 20:52 (Flexeril) 10 mg BID PRN PO 11/05/17 17:30 (Neurontin) 300 mg HS PO 11/05/17 21:00 11/11/17 20:37 (NovoLOG MIX 70/ 30 INJ) 8 units BID@08,17 SQ 11/06/17 08:00 11/10/17 08:00 (Protonix) 40 mg DAILY PO 11/06/17 09:00 11/11/17 10:09 Patient Own Medication PT OWN MED:COMBIVENT RESPIMA... BID INH 11/05/17 21:00 Future Hold (Desyrel) 100 mg HS PO 11/05/17 21:00 11/11/17 20:37 Sodium Chloride 1,000 ml @ 0 mls/hr Q0M PRN OTHER 11/05/17 18:17 (Heparin Inj) 8,000 units UNSCH PRN IV FLUSH 11/05/17 18:30 Sodium Chloride 1,000 ml @ 200 mls/hr Q5H PRN IV 11/05/17 18:17 Sodium Chloride 1,000 ml @ 0 mls/hr Q0M PRN OTHER 11/05/17 18:17 (Mannitol Inj) 12.5 gm UNSCH PRN IV 11/05/17 18:30 Albumin Human 100 ml @ 60 mls/hr UNSCH PRN IV 11/05/17 18:30 11/09/17 10:33 (NS Flush) 5 ml UNSCH PRN IV FLUSH 11/05/17 18:30 (Heparin Inj) UNSCH PRN .XX 11/05/17 18:30 11/09/17 10:23 (Gentamicin Inj) 20 mg UNSCH PRN OTHER 11/05/17 18:30 11/09/17 10:23 (Zofran Inj) 4 mg UNSCH PRN IV PUSH 11/05/17 18:30 (Tylenol) 650 mg UNSCH PRN PO 11/05/17 18:30 (Benadryl) 25 mg UNSCH PRN PO 11/05/17 18:30 (Nitrostat Sl) 0.4 mg UNSCH PRN SL 11/05/17 18:30 (Catapres) 0.1 mg UNSCH PRN PO 11/05/17 18:30 (Gelfoam 12 Mm/7 Mm Top) 1 foam UNSCH PRN TOP 11/05/17 18:30 (Heparin Inj) 5,000 units Q8HR SQ 11/05/17 22:00 11/11/17 20:37 ([place] 5-325 Mg) 1 tab Q4H PRN PO 11/06/17 16:45 (Mycostatin Powder) 1 applic BID TOPICAL 11/07/17 10:00 11/09/17 09:00 (L-M-X 4 Cream) 1 applic EVERY OTHER DAY PRN TOPICAL 11/07/17 09:30 11/07/17 15:43 (Silvadene 1% Cream (50 Gm)) 1 applic EVERY OTHER DAY PRN TOPICAL 11/07/17 09:30 11/07/17 15:43 (Proamatine) 10 mg Q8HR PO 11/08/17 22:00 11/11/17 20:37 Miscellaneous Information Patient in critical care unit? Ass... Q361D .XX 11/08/17 22:15 11/08/17 22:15 (Chlorhexidine 2% Cloth) 3 pack DAILY@04 TOPICAL 11/09/17 04:00 11/13/17 04:01 11/11/17 02:10 (Chlorhexidine 2% Cloth) 3 pack UNSCH PRN TOPICAL 11/08/17 22:15 11/13/17 22:01 (Epogen Inj) 4,000 units UNSCH PRN IV PUSH 11/09/17 10:45 Phenylephrine HCl 40 mg/Dextrose 500 ml @ 30 mls/hr TITRATE PRN IV 11/10/17 15:45 11/11/17 04:32 (Mycostatin Cream) 1 applic Q6HR TOPICAL 11/11/17 12:00 Family History Reviewed and noncontributory to infectious disease problems Social History Smokes tobacco, off/on since age 18, quit about month ago Alcohol:denies Illicit drug use: denies Physical Exam Vital Signs Vital Signs Date Time Temp Pulse Resp B/P (MAP) Pulse Ox O2 Delivery O2 Flow Rate FiO2 11/11/17 11:16 98 Nasal Cannula 2.00 11/11/17 10:00 79 11/11/17 08:00 74 11/11/17 08:00 98.5 74 13 73/45 (54) 99 11/11/17 07:00 99 Nasal Cannula 3.00 11/11/17 06:00 76 11/11/17 04:32 79 90/50 11/11/17 04:00 98.0 77 15 99/57 (71) 98 11/11/17 04:00 77 11/11/17 02:00 78 11/11/17 00:00 75 11/11/17 00:00 98.0 75 22 97/55 (69) 97 11/10/17 22:00 72 11/10/17 20:00 98.0 80 15 89/53 (65) 98 11/10/17 20:00 80 11/10/17 19:26 98 Nasal Cannula 3.00 11/10/17 19:00 97 Nasal Cannula 3.00 11/10/17 18:00 80 11/10/17 16:00 80 11/10/17 16:00 98.2 80 12 96/54 (68) 98 11/10/17 14:00 82 11/10/17 12:00 98.6 75 12 92/54 (67) 98 11/10/17 12:00 75 Physical Exam GENERAL: This is a well-nourished, well-developed patient, in no apparent distress. SKIN: No rashes, ecchymoses or lesions. Cool and dry. HEAD: Atraumatic. Normocephalic. No temporal or scalp tenderness. EYES: Pupils equal round and reactive. Extraocular motions intact. No scleral icterus. No injection or drainage. ENT: Nose without bleeding, purulent drainage or septal hematoma. Throat without erythema, tonsillar hypertrophy or exudate. Uvula midline. Airway patent. NECK: Trachea midline.. Supple, nontender, no meningeal signs. CARDIOVASCULAR: Regular rate and rhythm without murmurs, gallops, or rubs. RESPIRATORY: Clear to auscultation. Breath sounds equal bilaterally. No wheezes , rales, or rhonchi. GASTROINTESTINAL: Abdomen soft, non-tender, nondistended. MUSCULOSKELETAL: Right forefoot amputation surgical site with no evidence of infection. Close to the Achilles tendon there was a small opening with a visible type wound VAC was over it and there was some beginning of granulation tissue over it Groin folds with evidence of moisture and possibly fungal infection. Abdominal pannus sites with moisture as well as evidence of fungal infection. NEUROLOGICAL: Awake and alert. Nonfocal exam Psych cooperative IV line sites with no evidence of infection Right groin hemodialysis access catheter site with no evidence of infection. Sacral area with multiple unstageable ulcers with purulent discharge noted. Dark skinned unable to appreciate erythema. Laboratory Date/Time Source Procedure Growth Status 11/05/17 16:25 Blood Peripheral Aerobic Blood Culture - Final NO GROWTH IN 5 DAYS Complete 11/05/17 16:25 Blood Peripheral Anaerobic Blood Culture - Final NO GROWTH IN 5 DAYS Complete 11/08/17 16:30 Wound Foot Fungal Smear - Final NO FUNGAL ELEMENTS SEEN. Resulted 11/08/17 16:30 Wound Foot Fungal Culture Pending Resulted Result Diagram: 11/09/17 0557 11/09/17 0557 Imaging Last Impressions Foot MRI 11/06/17 0000 Signed Impressions: Service Date/Time: Monday, November 06, 2017 12:57 - CONCLUSION: 1. The combination of radiographic findings and the abnormal T1 and T2 signal in the distal 1 cm of the fourth metatarsal is suspicious for osteomyelitis. Please note that no contrast could be administered given the patient's end-stage renal disease. 2. Signal abnormality versus inhomogeneous fat suppression involving the proximal distal phalanx of the fifth digit. 3. There is subcutaneous edema on the lateral aspect of the foot and adjacent to the distal end of the fourth metatarsal. Damián Cabrera MD Ankle MRI 11/06/17 0000 Signed Impressions: Service Date/Time: Monday, November 06, 2017 12:57 - CONCLUSION: There are no imaging findings to indicate osteomyelitis around the ankle. Please refer to foot MRI report for further description of the foot findings. Damián Cabrera MD Foot X-Ray 11/05/17 0000 Signed Impressions: Service Date/Time: Sunday, November 05, 2017 18:25 - CONCLUSION: 1. Erosions at the fourth metatarsal head suspicious for osteomyelitis. Previous amputations as above. 2. Soft tissue ulcer posterior heel just above the calcaneus. Dmitry Anton MD Assessment and Plan Assessment and Plan Possible sepsis present on admission Right foot fourth digit osteomyelitis. Status post right foot transmetatarsal amputation. Patient is on IV vancomycin scheduled to end on November 16, 2017. Unstageable sacral decubiti with possible cellulitis High-grade leukocytosis Recommendations Check random vancomycin level We will discuss with podiatry and Dr. Nicolas to see if any further vancomycin dosing needed. Continue wound care especially in the sacral area. Nystatin cream local application. Follow path Follow cultures. Dr. Wells to resume care in the a.m. for continuity of care. Kalli Rowe MD Nov 11, 2017 11:26
--- NOTE | 2017-11-11 12:58 | HHI.CCPN ---
Subjective Remarks/Hospital Course 11/08: This is a 57-year-old female with end-stage liver disease on intermittent hemodialysis in for urgent transmetatarsal amputation. In the operating room she was worsening with aseptic with systolic in the 60s. Due to her end-stage kidney disease, she was only given 400 cc crystalloid IV fluids for concerns over volume overload. She arrived to the PACU hypotensive and unstable. Critical care medicine was consulted to evaluate and manage her hemodynamics and presumed septic shock. Of note looking back at her former admissions, her systolic blood pressure usually runs 80-100 systolic but no higher. On my evaluation, the patient denied any complaints except for fatigue. She denied leg pain. Denies chest pain, shortness of breath, fever, chills, nausea, vomiting, abdominal pain. She was given a liter of crystalloids in PACU and started on phenylephrine infusion to maintain endorgan perfusion. 11/09: Just underwent dialysis. Remains on Ayaz-Synephrine about 40 mics per minute. Resting in bed comfortably not in any acute distress. Awake and alert. Knows she is at the hospital. 11/10: Resting comfortably in bed, not in any acute distress. On Phenylephrine 30mcg/min initially when I evaluated pt. 11/11: Remains on phenylephrine gtt for hypotension. Resting in bed, not in any acute distress. Objective Vital Signs Date Time Temp Pulse Resp B/P (MAP) Pulse Ox O2 Delivery O2 Flow Rate FiO2 11/11/17 11:16 98 Nasal Cannula 2.00 11/11/17 10:00 79 11/11/17 08:00 98.5 13 73/45 (54) 11/08/17 19:35 50 Intake and Output 11/11/17 11/11/17 11/12/17 08:00 16:00 00:00 Intake Total 740 ml Output Total 0 ml Balance 740 ml Result Diagram: 11/09/17 0557 11/09/17 0557 Other Results Microbiology Date/Time Source Procedure Growth Status 11/08/17 16:30 Wound Foot Gram Stain - Final Complete 11/08/17 16:30 Wound Foot Wound Culture - Final NO GROWTH IN 72 HRS.--AEROBICALLY OR ... Complete 11/08/17 16:30 Wound Foot Gram Stain - Final Complete 11/08/17 16:30 Wound Foot Wound Culture - Final NO GROWTH IN 72 HRS.--AEROBICALLY OR ... Complete Imaging Last Impressions Foot MRI 11/06/17 0000 Signed Impressions: Service Date/Time: Monday, November 06, 2017 12:57 - CONCLUSION: 1. The combination of radiographic findings and the abnormal T1 and T2 signal in the distal 1 cm of the fourth metatarsal is suspicious for osteomyelitis. Please note that no contrast could be administered given the patient's end-stage renal disease. 2. Signal abnormality versus inhomogeneous fat suppression involving the proximal distal phalanx of the fifth digit. 3. There is subcutaneous edema on the lateral aspect of the foot and adjacent to the distal end of the fourth metatarsal. Damián Cabrera MD Ankle MRI 11/06/17 0000 Signed Impressions: Service Date/Time: Monday, November 06, 2017 12:57 - CONCLUSION: There are no imaging findings to indicate osteomyelitis around the ankle. Please refer to foot MRI report for further description of the foot findings. Damián Cabrera MD Foot X-Ray 11/05/17 0000 Signed Impressions: Service Date/Time: Sunday, November 05, 2017 18:25 - CONCLUSION: 1. Erosions at the fourth metatarsal head suspicious for osteomyelitis. Previous amputations as above. 2. Soft tissue ulcer posterior heel just above the calcaneus. Dmitry Anton MD Procedures Hemodialysis Objective Remarks GENERAL: Middle-aged female, lying in bed, not in any acute distress HEENT: Normocephalic. Atraumatic. Pupils equal, round, reactive, conjugate. Mucous membranes are dry NECK: Trachea is midline. Obesity and large neck prevents accurate assessment of JVD CHEST: Equal chest rise. Nasal cannula oxygen. CARDIOVASCULAR: Normal rate, regular rhythm. ABDOMEN: Morbidly obese, soft, nontender, nondistended. No guarding. MUSCULOSKELETAL: Pulses 1+. No peripheral edema. Rt foot with dressing/ NIRAV wrap over surgical site, TATE drain in place NEUROLOGICAL: Awake alert oriented 3. No focal deficits. Follows commands. A/P Assessment and Plan Assessment: 57-year-old female with end-stage renal disease on hemodialysis with right foot osteomyelitis now status post urgent transmetatarsal amputation for worsening osteomyelitis. Now in what appears to be septic shock. We will continue vasopressors and gentle fluid resuscitation. Admit to ICU. Close monitoring. Remains critically ill with high risk of given septic shock, osteomyelitis, and significant medical comorbidities. Active problems: Right foot osteomyelitis Status post urgent transmetatarsal amputation 11/08 Septic shock End-stage renal disease on intermittent hemodialysis Plan: Admit to ICU Continue home midodrine 10 mg p.o. every 8 hours Phenylephrine for a goal map greater than 65, chronically hypotensive with systolic in the 80s-100s, so we will target that for systolic. Risk-benefit of central venous access at this point given her chronic end-stage renal disease and likely poor central vasculature is in favor of conservative measures and peripheral IV access only. Continue current antibiotics plan which is intermittent Vanco dosing during hemodialysis ID consulted for sepsis/ osteomyelitis. Leonidas Rowe MD Nov 11, 2017 12:58
--- NOTE | 2017-11-11 15:39 | HHI.PR ---
Subjective Remarks Patient seen bedside this evening. Denies nausea, vomiting, fevers, or chills. Denies calf pain. Resting comfortably. Objective Vital Signs Date Time Temp Pulse Resp B/P (MAP) Pulse Ox O2 Delivery O2 Flow Rate FiO2 11/11/17 14:00 81 11/11/17 12:00 78 11/11/17 12:00 98.2 78 31 113/59 (77) 99 11/11/17 11:16 98 Nasal Cannula 2.00 11/11/17 10:00 79 11/11/17 08:00 74 11/11/17 08:00 98.5 74 13 73/45 (54) 99 11/11/17 07:00 99 Nasal Cannula 3.00 11/11/17 06:00 76 11/11/17 04:32 79 90/50 11/11/17 04:00 98.0 77 15 99/57 (71) 98 11/11/17 04:00 77 11/11/17 02:00 78 11/11/17 00:00 75 11/11/17 00:00 98.0 75 22 97/55 (69) 97 11/10/17 22:00 72 11/10/17 20:00 98.0 80 15 89/53 (65) 98 11/10/17 20:00 80 11/10/17 19:26 98 Nasal Cannula 3.00 11/10/17 19:00 97 Nasal Cannula 3.00 11/10/17 18:00 80 11/10/17 16:00 80 11/10/17 16:00 98.2 80 12 96/54 (68) 98 I/O 11/10/17 11/10/17 11/10/17 11/11/17 11/11/17 11/11/17 07:00 15:00 23:00 07:00 15:00 23:00 Intake Total 240 ml 750 ml 740 ml Output Total 0 ml 0 ml 0 ml Balance 240 ml 750 ml 740 ml Intake Oral 240 ml 750 ml 240 ml IV Total 500 ml Output Urine Total 0 ml 0 ml 0 ml Drainage Total 0 ml 0 ml # Bowel Movements 1 0 Result Diagram: 11/09/17 0557 11/09/17 0557 Imaging Last Impressions Foot MRI 11/06/17 0000 Signed Impressions: Service Date/Time: Monday, November 06, 2017 12:57 - CONCLUSION: 1. The combination of radiographic findings and the abnormal T1 and T2 signal in the distal 1 cm of the fourth metatarsal is suspicious for osteomyelitis. Please note that no contrast could be administered given the patient's end-stage renal disease. 2. Signal abnormality versus inhomogeneous fat suppression involving the proximal distal phalanx of the fifth digit. 3. There is subcutaneous edema on the lateral aspect of the foot and adjacent to the distal end of the fourth metatarsal. Damián Cabrera MD Ankle MRI 11/06/17 0000 Signed Impressions: Service Date/Time: Monday, November 06, 2017 12:57 - CONCLUSION: There are no imaging findings to indicate osteomyelitis around the ankle. Please refer to foot MRI report for further description of the foot findings. Damián Cabrera MD Foot X-Ray 11/05/17 0000 Signed Impressions: Service Date/Time: Sunday, November 05, 2017 18:25 - CONCLUSION: 1. Erosions at the fourth metatarsal head suspicious for osteomyelitis. Previous amputations as above. 2. Soft tissue ulcer posterior heel just above the calcaneus. Dmitry Anton MD Procedures Status post right transmetatarsal amputation and right posterior heel ulcer debridement, postop day 3 Other Results Microbiology Date/Time Source Procedure Growth Status 11/05/17 16:25 Blood Peripheral Aerobic Blood Culture - Final NO GROWTH IN 5 DAYS Complete 11/05/17 16:25 Blood Peripheral Anaerobic Blood Culture - Final NO GROWTH IN 5 DAYS Complete 11/08/17 16:30 Wound Foot Fungal Smear - Final NO FUNGAL ELEMENTS SEEN. Resulted 11/08/17 16:30 Wound Foot Fungal Culture Pending Resulted Objective Remarks Wound VAC present to right posterior heel functioning at 125 mmHG Lower extremity physical exam: Vascular: Dorsalis pedis nonpalpable, posterior tibial nonpalpable. Capillary refill time within normal limits to digits 5 bilateral foot. Edema present right foot. Neuro: Gross sensation intact to bilateral lower extremity. Pinpoint sensation decreased. No hyperalgesia noted to bilateral lower extremity Dermatology: Hemovac present to right lower extremity with approximately 10 cc of sanguinous drainage. Incision to right transmetatarsal amputation with skin well coapted and sutures intact. No purulent drainage upon compression no active drainage noted. Upon wound vac removal posterior ankle ulcer with granulation present, Achilles tendon still exposed. Musculoskeletal: Tender to palpation to posterior heel at the Achilles tendon. Medications and IVs Current Medications Medications (Trade) Dose Ordered Sig/Mary Grace Route Start Time Stop Time Status Last Admin (NS Flush) 2 ml UNSCH PRN IV FLUSH 11/05/17 16:15 11/06/17 12:24 (NS Flush) 2 ml BID IV FLUSH 11/05/17 21:00 11/11/17 10:09 (Narcan Inj) 0.4 mg UNSCH PRN IV PUSH 11/05/17 16:15 (D50w (Vial) Inj) 50 ml UNSCH PRN IV PUSH 11/05/17 16:15 (Glucagon Inj) 1 mg UNSCH PRN OTHER 11/05/17 16:15 (NovoLOG SUPPLEMENTAL SCALE) 1 ACHS SLIDING SCALE SQ 11/05/17 17:00 11/09/17 21:00 (Morphine Inj) 2 mg Q3H PRN IV PUSH 11/05/17 17:30 11/11/17 04:32 (Ecotrin Ec) 81 mg DAILY PO 11/06/17 09:00 11/11/17 10:09 (Lipitor) 10 mg HS PO 11/05/17 21:00 11/10/17 20:23 (Wellbutrin Sr) 150 mg BID PO 11/05/17 21:00 11/11/17 10:09 (Oscal) 2,000 mg Q8HR PO 11/05/17 22:00 11/11/17 04:33 (Flexeril) 10 mg BID PRN PO 11/05/17 17:30 (Neurontin) 300 mg HS PO 11/05/17 21:00 11/10/17 20:23 (NovoLOG MIX 70/ 30 INJ) 8 units BID@08,17 SQ 11/06/17 08:00 11/10/17 08:00 (Protonix) 40 mg DAILY PO 11/06/17 09:00 11/11/17 10:09 Patient Own Medication PT OWN MED:COMBIVENT RESPIMA... BID INH 11/05/17 21:00 Future Hold (Desyrel) 100 mg HS PO 11/05/17 21:00 11/10/17 20:23 Sodium Chloride 1,000 ml @ 0 mls/hr Q0M PRN OTHER 11/05/17 18:17 (Heparin Inj) 8,000 units UNSCH PRN IV FLUSH 11/05/17 18:30 Sodium Chloride 1,000 ml @ 200 mls/hr Q5H PRN IV 11/05/17 18:17 Sodium Chloride 1,000 ml @ 0 mls/hr Q0M PRN OTHER 11/05/17 18:17 (Mannitol Inj) 12.5 gm UNSCH PRN IV 11/05/17 18:30 Albumin Human 100 ml @ 60 mls/hr UNSCH PRN IV 11/05/17 18:30 11/09/17 10:33 (NS Flush) 5 ml UNSCH PRN IV FLUSH 11/05/17 18:30 (Heparin Inj) UNSCH PRN .XX 11/05/17 18:30 11/09/17 10:23 (Gentamicin Inj) 20 mg UNSCH PRN OTHER 11/05/17 18:30 11/09/17 10:23 (Zofran Inj) 4 mg UNSCH PRN IV PUSH 11/05/17 18:30 (Tylenol) 650 mg UNSCH PRN PO 11/05/17 18:30 (Benadryl) 25 mg UNSCH PRN PO 11/05/17 18:30 (Nitrostat Sl) 0.4 mg UNSCH PRN SL 11/05/17 18:30 (Catapres) 0.1 mg UNSCH PRN PO 11/05/17 18:30 (Gelfoam 12 Mm/7 Mm Top) 1 foam UNSCH PRN TOP 11/05/17 18:30 (Heparin Inj) 5,000 units Q8HR SQ 11/05/17 22:00 11/11/17 04:33 ([place] 5-325 Mg) 1 tab Q4H PRN PO 11/06/17 16:45 (Mycostatin Powder) 1 applic BID TOPICAL 11/07/17 10:00 11/09/17 09:00 (L-M-X 4 Cream) 1 applic EVERY OTHER DAY PRN TOPICAL 11/07/17 09:30 11/07/17 15:43 (Silvadene 1% Cream (50 Gm)) 1 applic EVERY OTHER DAY PRN TOPICAL 11/07/17 09:30 11/07/17 15:43 (Proamatine) 10 mg Q8HR PO 11/08/17 22:00 11/11/17 04:33 Miscellaneous Information Patient in critical care unit? Ass... Q361D .XX 11/08/17 22:15 11/08/17 22:15 (Chlorhexidine 2% Cloth) 3 pack DAILY@04 TOPICAL 11/09/17 04:00 11/13/17 04:01 11/11/17 02:10 (Chlorhexidine 2% Cloth) 3 pack UNSCH PRN TOPICAL 11/08/17 22:15 11/13/17 22:01 (Epogen Inj) 4,000 units UNSCH PRN IV PUSH 11/09/17 10:45 Phenylephrine HCl 40 mg/Dextrose 500 ml @ 30 mls/hr TITRATE PRN IV 11/10/17 15:45 11/11/17 04:32 (Mycostatin Cream) 1 applic Q6HR TOPICAL 11/11/17 12:00 Assessment and Plan Assessment and Plan 57-year-old female with right foot osteomyelitis and right posterior ankle ulcer with exposed Achilles tendon Status post right transmetatarsal amputation with debridement and irrigation of posterior ankle ulcer with wound VAC placement post op day 3 Patient examined and evaluated with all questions answered Dressing change to right foot; applied Adaptic, 4 x 4's, Dolores, ABD, and El Adaptic and DSD applied to the posterior ankle Wound care to place wound vac and to be applied while in house Ok to discharge patient with puracol and dry sterile dressings Patient will need home health care upon discharge if discharged home She will need to follow up within 1 week of discharge ID recommendations for outpatient abx Discussed right LE infection with ID Leonie Naqvi DPM Nov 11, 2017 15:39
--- NOTE | 2017-11-11 19:16 | PD.CAR.PN ---
CVT Progress Note Subjective/Hospital Course: Referral received Full consult EMILEE Chichi Rik 11/11/2017 nothing to add to care at this time Excellent work by Dr. Naqvi. We will see how patient heals and what the future brings There are no plans at this time to do any revascularization from vascular point The area starts to heal adequately patient will not need any intervention from my point and if this deteriorates then below-knee amputation may be the only option left Objective: Vital Signs Date Time Temp Pulse Resp B/P (MAP) Pulse Ox O2 Delivery O2 Flow Rate FiO2 11/11/17 16:00 97.9 80 11 81/53 (62) 99 11/11/17 14:00 81 11/11/17 12:00 78 11/11/17 12:00 98.2 78 31 113/59 (77) 99 11/11/17 11:16 98 Nasal Cannula 2.00 11/11/17 10:00 79 11/11/17 08:00 74 11/11/17 08:00 98.5 74 13 73/45 (54) 99 11/11/17 07:00 99 Nasal Cannula 3.00 11/11/17 06:00 76 11/11/17 04:32 79 90/50 11/11/17 04:00 98.0 77 15 99/57 (71) 98 11/11/17 04:00 77 11/11/17 02:00 78 11/11/17 00:00 75 11/11/17 00:00 98.0 75 22 97/55 (69) 97 11/10/17 22:00 72 11/10/17 20:00 98.0 80 15 89/53 (65) 98 11/10/17 20:00 80 11/10/17 19:26 98 Nasal Cannula 3.00 Labs: Laboratory Tests Test 11/11/17 14:17 Random Vancomycin Level 12.5 COMMENT Result Diagram: 11/09/17 0557 11/09/17 0557 Tania Ramsay MD Nov 11, 2017 19:16
[2017-11-11] MEDS: traZODone HCL 100 MG TAB PO SCH (20:37)
[2017-11-11] MEDS: GABAPENTIN 300 MG CAP PO SCH (20:37)
[2017-11-11] MEDS: ATORVASTATIN 10 MG TAB PO SCH (20:37)
[2017-11-11] MEDS: NYSTATIN 100,000 U/GM PWD 15 GM BTL TOPICAL SCH (20:38)
[2017-11-11] MEDS ORDERED: IOHEXOL 350 MG/ML 10 ML VIAL (for RAD DIAG) IVCONTRAST ONE (23:50)
[2017-11-12] VITALS (14 sets, daily range): BP systolic 71–135; BP diastolic 40–66; PULSE 74–92; RESP 12–22; TEMP 97.5–98.3; O2SAT 93–100
[2017-11-12] MEDS: MORPHINE SULFATE 2 MG/ML INJ IV PUSH PRN ×2 (00:40→10:50)
[2017-11-12] MEDS: PHENYLEPHRINE INJ 40 MG in DEXTROSE 5% IN WATE 500 ML INJ 496 ML IV PRN ×4 (00:40→16:09)
[2017-11-12] MEDS: CHLORHEXIDINE GLUCONATE 2 % 1 PACK (2 CLOTHS)(taper/protocol) TOPICAL SCH (03:39)
[2017-11-12] MEDS: MIDODRINE 5 MG TAB PO SCH ×3 (05:41→20:43)
[2017-11-12] MEDS: HEPARIN SODIUM - SQ 10,000 UNITS/ML VIAL SQ SCH ×3 (05:41→20:43)
[2017-11-12] MEDS: CALCIUM CARBONATE 1.25 GM (CA 500 MG) TAB PO SCH ×3 (05:41→20:43)
[2017-11-12] MEDS: NYSTATIN 100,000 UNIT/GM CREAM 15 GM TOPICAL SCH ×4 (05:41→18:11)
[2017-11-12] MEDS: INSULIN ASPAR PROT 70/30 1,000 UNITS/10 ML VIAL SQ SCH ×2 (08:00→15:33)
[2017-11-12] MEDS: INSULIN ASPART SUPPLEMENTAL SCALE SQ SCH ×3 (08:00→21:00)
[2017-11-12] MEDS: NYSTATIN 100,000 U/GM PWD 15 GM BTL TOPICAL SCH ×2 (09:00→21:00)
[2017-11-12] MEDS: SODIUM CHLORIDE 0.9% FLUSH 10 ML FLUSH IV FLUSH SCH ×2 (09:50→20:45)
[2017-11-12] MEDS: buPROPion HCL 150 MG SUSTAINED RELEASE TAB PO SCH ×2 (09:51→20:43)
[2017-11-12] MEDS: PANTOPRAZOLE SOD 40 MG DELAYED RELEASE TAB PO SCH (09:51)
[2017-11-12] MEDS: ASPIRIN EC 81 MG TABEC PO SCH (09:51)
--- NOTE | 2017-11-12 10:14 | HHI.CCPN ---
Subjective Remarks/Hospital Course 11/08: This is a 57-year-old female with end-stage liver disease on intermittent hemodialysis in for urgent transmetatarsal amputation. In the operating room she was worsening with aseptic with systolic in the 60s. Due to her end-stage kidney disease, she was only given 400 cc crystalloid IV fluids for concerns over volume overload. She arrived to the PACU hypotensive and unstable. Critical care medicine was consulted to evaluate and manage her hemodynamics and presumed septic shock. Of note looking back at her former admissions, her systolic blood pressure usually runs 80-100 systolic but no higher. On my evaluation, the patient denied any complaints except for fatigue. She denied leg pain. Denies chest pain, shortness of breath, fever, chills, nausea, vomiting, abdominal pain. She was given a liter of crystalloids in PACU and started on phenylephrine infusion to maintain endorgan perfusion. 11/09: Just underwent dialysis. Remains on Ayaz-Synephrine about 40 mics per minute. Resting in bed comfortably not in any acute distress. Awake and alert. Knows she is at the hospital. 11/10: Resting comfortably in bed, not in any acute distress. On Phenylephrine 30mcg/min initially when I evaluated pt. 11/11: Remains on phenylephrine gtt for hypotension. Resting in bed, not in any acute distress. 11/12 Patient is on Neosyn 55 mics. on 3L oxygen, afebrile, for HD today Objective Vital Signs Date Time Temp Pulse Resp B/P (MAP) Pulse Ox O2 Delivery O2 Flow Rate FiO2 11/12/17 08:00 97.5 74 15 88/53 (65) 99 11/11/17 19:40 Nasal Cannula 3.00 11/08/17 19:35 50 Intake and Output 11/12/17 11/12/17 11/13/17 08:00 16:00 00:00 Intake Total 980 ml Output Total 0 ml Balance 980 ml Result Diagram: 11/09/17 0557 11/09/17 0557 Other Results Laboratory Tests Test 11/11/17 14:17 Random Vancomycin Level 12.5 COMMENT Imaging Last Impressions Foot MRI 11/06/17 0000 Signed Impressions: Service Date/Time: Monday, November 06, 2017 12:57 - CONCLUSION: 1. The combination of radiographic findings and the abnormal T1 and T2 signal in the distal 1 cm of the fourth metatarsal is suspicious for osteomyelitis. Please note that no contrast could be administered given the patient's end-stage renal disease. 2. Signal abnormality versus inhomogeneous fat suppression involving the proximal distal phalanx of the fifth digit. 3. There is subcutaneous edema on the lateral aspect of the foot and adjacent to the distal end of the fourth metatarsal. Damián Cabrera MD Ankle MRI 11/06/17 0000 Signed Impressions: Service Date/Time: Monday, November 06, 2017 12:57 - CONCLUSION: There are no imaging findings to indicate osteomyelitis around the ankle. Please refer to foot MRI report for further description of the foot findings. Damián Cabrera MD Foot X-Ray 11/05/17 0000 Signed Impressions: Service Date/Time: Sunday, November 05, 2017 18:25 - CONCLUSION: 1. Erosions at the fourth metatarsal head suspicious for osteomyelitis. Previous amputations as above. 2. Soft tissue ulcer posterior heel just above the calcaneus. Dmitry Anton MD Procedures Hemodialysis Objective Remarks GENERAL: Middle-aged female, lying in bed, not in any acute distress HEENT: Normocephalic. Atraumatic. Pupils equal, round, reactive, conjugate. Mucous membranes are dry NECK: Trachea is midline. Obesity and large neck prevents accurate assessment of JVD CHEST: Equal chest rise. Nasal cannula oxygen. CARDIOVASCULAR: Normal rate, regular rhythm. ABDOMEN: Morbidly obese, soft, nontender, nondistended. No guarding. MUSCULOSKELETAL: Pulses 1+. No peripheral edema. Rt foot with dressing/ NIRAV wrap over surgical site, TATE drain in place NEUROLOGICAL: Awake alert oriented 3. No focal deficits. Follows commands. A/P Assessment and Plan Resp Insuff Right foot osteomyelitis Status post urgent transmetatarsal amputation 11/08 Septic shock End-stage renal disease on intermittent hemodialysis sacral decubiti with possible cellulitis Plan: Neuro: Awake and alert Pulm: Continue with oxygen keep sat >92% Bronchodilators CV: Wean off Neosyn keep MAP>65mmHg On Midodrine 10mg Q8 Stre dose steroids- HC 50mg IV Q6 : Monitor renal function, I/O's, avoid nephrotoxins HD per renal- for HD today, Renal- Dr. Villagran GI: On PO diet ID: Abx per ID (Vanco)monitor for signs of infections ( Fever, WBC) Podiatry, wound care are following Heme: Monitor CBC Endo: SSI for glycemic control GI prophylaxis- on Protonix DVT prophylaxis-Heparin SQ Check labs today Level 2 Pilo Patrick MD Nov 12, 2017 10:14
--- NOTE | 2017-11-12 10:25 | RADRPT ---
EXAM DATE/TIME: 11/11/2017 23:27 [facility] COMPARISON: CT ABDOMEN & PELVIS W/O CONTRAST, September 11, 2016, 8:50. INDICATIONS : Gangrene right foot. IV CONTRAST: 100 cc Omnipaque 350 (iohexol) IV RADIATION DOSE: 6.24 CTDIvol (mGy) ; Patient body habitus MEDICAL HISTORY : Hypertension. Renal disease, end stage. Congestive heart failure. SURGICAL HISTORY : Appendectomy. Thyroidectomy.Cholecystectomy. ENCOUNTER: Initial ACUITY: 1 day PAIN SCALE: 10/10 LOCATION: Right leg TECHNIQUE: Volumetric scanning was performed using a multi-row detector CT scanner. The data was post processed with a variety of visualization algorithms including full volume maximum intensity projection, multi -planar sliding thin slab reformation, curved planar reformation, and surface rendering techniques. Using automated exposure control and adjustment of the mA and/or kV according to patient size, radiat ion dose was kept as low as reasonably achievable to obtain optimal diagnostic quality images. DICO M format image data is available electronically for review and comparison. FINDINGS: ABDOMINAL AORTA: Stent or calcification of the abdominal aorta is normal in caliber throughout its length without aneu rysmal disease. Single bilateral renal arteries are patent the right renal artery somewhat diminutive . Atrophic changes are identified in both kidneys. Mesenteric vessels are patent. The left gastric em anates directly from the aorta. PELVIS: Scattered atherosclerotic calcification but the iliacs are patent bilaterally. RIGHT LOWER EXTREMITY: Scattered atherosclerotic calcification but the profunda and SFA are patent. Popliteal is patent down to the trifurcation. All 3 trifurcation vessels are patent but the anterior tibial is very diminutiv e distally and the peroneal continues as the anterior tibial at the ankle. LEFT LOWER EXTREMITY: Scattered atherosclerotic calcification but the profunda and SFA are patent. Popliteal is patent down to the trifurcation. All 3 trifurcation vessels are patent but the anterior tibial is very diminutiv e distally and the peroneal continues as the anterior tibial at the ankle. MISCELLANEOUS: Bibasilar atelectasis with small effusions. Extensive collateral vessels in the subcutaneous tissues of the abdomen and flank may represent varicosities. Patient appears to have an indwelling tunneled d ialysis type catheter traversing the IVC which may be thrombosed/occluded. There appears to be either vein stripping or GSV harvesting in both lower extremities. Small paraumbilical hernia measuring 3.7 cm in diameter only contains fat. Mottled appearance throughout the axial skeleton. This was present on the prior exam one year earlier and is basically stable. This may represent altered calcium metab olism do to long-term renal insufficiency. CONCLUSION: 1. Patient does not appear to have a vascular etiology for current clinical symptoms. Despite fairly significant scattered atherosclerotic calcification, inflow and outflow is present bilaterally. The a nterior tibials are diminutive distally and the peroneals continue as the anterior tibials at the ank le. 2. Small bilateral pleural effusions with concomitant atelectatic changes. 3. Extensive varicosities in the subcutaneous tissues of the abdomen and flank. This may be due to st enosis or occlusion of the IVC. Patient does have an indwelling dialysis type catheter traversing the entire length of the IVC. 4. Mottled and somewhat sclerotic appearance of the entire axial skeleton. This was present previousl y and is basically stable. Findings may be due to altered calcium metabolism associated with long-ter m renal insufficiency/failure. 5. Small umbilical hernia which only contains fat. Ministerio Wei MD on November 12, 2017 at 8:55 Board Certified Radiologist. This report was verified electronically.
[2017-11-12 12:05] LABS: AUTOMATED NEUTROPHIL # 5.9 TH/MM3 (1.8-7.7); BASOPHIL % 0.4 % (0.0-2.0); EOSINOPHIL # 0.9 TH/MM3 (0-0.4); EOSINOPHIL % 10.7 % (0.0-4.0); HEMATOCRIT 37.1 % (35.0-46.0); HEMOGLOBIN 11.7 GM/DL (11.6-15.3); LYMPH % 7.7 % (9.0-44.0); LYMPHOCYTE # 0.6 TH/MM3 (1.0-4.8); MEAN CELL VOLUME 90.9 FL (80.0-100.0); MEAN CORPUSCULAR HEMOGLOBIN 28.6 PG (27.0-34.0); MEAN CORPUSCULAR HGB CONC 31.4 % (32.0-36.0); MONOCYTE # 0.8 TH/MM3 (0-0.9); NEUT % 71.2 % (16.0-70.0); PLATELET COUNT 306 TH/MM3 (150-450); RED BLOOD COUNT 4.08 MIL/MM3 (4.00-5.30); RED CELL DISTRIBUTION WIDTH 17.1 % (11.6-17.2); WHITE BLOOD COUNT 8.2 TH/MM3 (4.0-11.0)
[2017-11-12 12:21] LABS: BICARBONATE 25.2 MEQ/L (21.0-32.0); CALCIUM 8.8 MG/DL (8.5-10.1); CREATININE 8.07 MG/DL (0.50-1.00)
--- NOTE | 2017-11-12 13:12 | HHI.NPPN ---
Subjective History of Present Illness 57-year-old diabetes, right foot infection, sacral decubitus, ESRD Additional Remarks s/p TMA. She is comfortable, alert, oriented. HD Sunday and Sunday Blood pressure remains slow and on vasopressor Review of Systems General Constitutional: Fatigue Objective Data Data Vital Signs Date Time Temp Pulse Resp B/P (MAP) Pulse Ox O2 Delivery O2 Flow Rate FiO2 11/12/17 12:15 99 Nasal Cannula 3.00 11/12/17 12:00 98.3 80 12 71/40 (50) 98 11/12/17 10:00 83 11/12/17 08:00 97.5 74 15 88/53 (65) 99 11/12/17 08:00 74 11/12/17 06:00 76 11/12/17 04:00 75 11/12/17 04:00 98.0 75 20 89/50 (63) 98 11/12/17 02:00 80 11/12/17 00:40 81 90/50 11/12/17 00:00 98.0 86 16 135/66 (89) 97 11/12/17 00:00 86 11/11/17 22:00 79 11/11/17 20:00 77 11/11/17 20:00 98.0 77 15 109/60 (76) 100 11/11/17 19:40 98 Nasal Cannula 3.00 11/11/17 19:00 99 Nasal Cannula 3.00 11/11/17 18:00 75 11/11/17 16:00 80 11/11/17 16:00 97.9 80 11 81/53 (62) 99 11/11/17 14:00 81 -: 11/12/17 1126 11/12/17 1126 Physical Exam General Appearance: Well Developed, Obese Neck Neck Exam: Neck Supple Pulmonary Resp Exam: Clear Bilaterally, Breath Sounds Equal Cardiology CV Exam: Regular, Normal Sinus Rhythm Gastrointestinal/Abdomen GI Exam: Soft, Bowel Sounds Present Integumentary Skin Exam: Lesion(s) Extremeties Extremities Exam: Trace Edema Extremeties Remarks s/p TMA Assessment/Plan Problem List: (1) ESRD (end stage renal disease) ICD Codes: N18.6 - End-stage renal disease Status: Chronic Plan: Patient is on hemodialysis Follow-up Sunday, Sunday and Sunday schedule s/p Rt foot TMA rt heel surgery (2) Sacral ulcer ICD Codes: L98.429 - Non-pressure chronic ulcer of back with unspecified severity Plan: Patient is getting vancomycin (3) Diabetes mellitus ICD Codes: E11.9 - Type 2 diabetes mellitus without complications Plan: Continue to monitor, maintain blood glucose between 140 and 180. (4) Hypotension ICD Codes: I95.9 - Hypotension Status: Resolved Plan: Patient takes midodrine (5) Morbid obesity ICD Codes: E66.01 - Morbid (severe) obesity due to excess calories Status: Chronic Problem Qualifiers (1) Diabetes mellitus: Frank Villagran MD Nov 12, 2017 13:12
[2017-11-12] MEDS: HYDROCORTISONE SOD SUCCINATE 100 MG VIAL IV PUSH SCH ×2 (14:38→18:11)
--- NOTE | 2017-11-12 15:40 | PD.WCN.NOT ---
Wound Consult Description: Follow up of sacral and RLE wounds Communicated with: Zahra MUSA [facility], Recommendation: 1) Encourage patient to reposition every 2 hours for offloading and comfort. 2) Please Cleanse skin folds,groin,breast and buttocks with warm soap and water, rinse and thoroughly dry. 3) Apply antifungal powder to skin folds,groin and under breast. 4) Perform shaving cream therapy to bilateral lower extremities x5 days. 5) Apply 50/50 mix of Lidocaine and Silvadene to sacral/buttocks open area and cover with ABD. 6) Do not use cotton underpad only UltraSorb pads. 7) Apply adaptic gauze over sutures.cover with dry dressing change daily 8) Apply hydrogel to posterior Achilles tendon then cover with Xeroform and dry dressing change daily Additional Information: Patient was seen today on 5th floor [facility] for follow up of sacral and RLE wounds.Dressing removed from RLE to reveal R lateral sutured well approximated surgical wound.RLE posterior heal (Achilles tendon) has open area measuring 1.0cm x 0.9cm x0.2cm .Wound base is 100% dried tendon with no drainage or odor noted.Wound edges are well defined periwound is unremarkable.Patient does not meet criteria at this time for a wound vac to be placed on above wound.Suture and posterior tendon cleansed with normal saline adaptic applied over sutures and hydrogel applied to wound base and covered with Xeroform cut to fit Dry dressing applied and secured with rolled gauze/tape.Patient tolerated wound care well.Refused to be repositioned to assess sacral area due to fatigue but state it feels much better.Emd Teacher will follow up with patient progress. Lillian Mclean [facility] Nov 12, 2017 15:40
[2017-11-12] MEDS: GENTAMICIN SULFATE 20 MG/2 ML VIAL OTHER PRN (16:48)
[2017-11-12] MEDS: HEPARIN SODIUM - IV 10,000 UNITS/10 ML VIAL PRN (16:48)
[2017-11-12] MEDS: EPOETIN ALFA 10,000 UNITS/ML VIAL IV PUSH PRN (16:48)
--- NOTE | 2017-11-12 18:58 | HHI.IDPN ---
Subjective Subjective Remarks pt chart was reviewed Known to me 57-year-old -British female with past medical history significant for osteomyelitis, sepsis, end-stage renal disease on hemodialysis last seen in the hospital in September and she had amputation of her first and third toes on the right side. Patient was seen by undersigned during that admission and it was decided to send her home on IV vancomycin to be received in hemodialysis. Per review of records it appears that the last date of vancomycin was scheduled to be November 16, 2017. Patient states that she was told not to ambulate and has been lying in bed however it appears that she was discharged on weightbearing status as patient did not follow-up with podiatry postoperatively. Patient has a hemodialysis catheter in the groin due to her body habitus through which she undergoes hemodialysis. Patient's past medical history is also significant for morbid obesity, diet-controlled diabetes, CHF, COPD, hypothyroidism, anxiety depression. Patient reportedly was at her dialysis center and was sent from dialysis center for transmetatarsal amputation. Patient reportedly was complaining of back pain at the site of her prior sacral decubiti as well as her right foot. Patient is reportedly on Midrin as outpatient. Upon admission patient was found to be in hypotension systolic blood pressure in the 60s. When she arrived to the PACU she was reportedly thought to be hypotensive and unstable. Unsure if she has a normal low blood pressure went given the fact that she is on midodrine. Infectious disease is consulted for evaluation and management of severe sepsis, right foot fourth digit osteomyelitis and sacral decubitus cellulitis. Antibiotics vancomycin Past Medical History DM osteo Allergies: Coded Allergies: levofloxacin (Unverified Allergy, Severe, Anaphylaxis, 09/12/17) ANAPHYLAXIS Objective . Vital Signs Date Time Temp Pulse Resp B/P (MAP) Pulse Ox O2 Delivery O2 Flow Rate FiO2 11/12/17 16:09 81 96/58 11/12/17 16:00 79 11/12/17 16:00 97.7 79 16 100/56 (71) 100 11/12/17 14:00 87 11/12/17 13:16 10 11/12/17 12:15 99 Nasal Cannula 3.00 11/12/17 12:00 98.3 80 12 71/40 (50) 98 11/12/17 12:00 80 11/12/17 10:00 83 11/12/17 08:00 97.5 74 15 88/53 (65) 99 11/12/17 08:00 74 11/12/17 06:00 76 11/12/17 04:00 75 11/12/17 04:00 98.0 75 20 89/50 (63) 98 11/12/17 02:00 80 11/12/17 00:40 81 90/50 11/12/17 00:00 98.0 86 16 135/66 (89) 97 11/12/17 00:00 86 11/11/17 22:00 79 11/11/17 20:00 77 11/11/17 20:00 98.0 77 15 109/60 (76) 100 11/11/17 19:40 98 Nasal Cannula 3.00 11/11/17 19:00 99 Nasal Cannula 3.00 11/12/17 11/12/17 11/13/17 15:00 23:00 07:00 Output Total 2500 ml Balance -2500 ml Hemodialysis 2500 ml . Laboratory Tests Test 11/12/17 11:26 White Blood Count 8.2 TH/MM3 Red Blood Count 4.08 MIL/MM3 Hemoglobin 11.7 GM/DL Hematocrit 37.1 % Mean Corpuscular Volume 90.9 FL Mean Corpuscular Hemoglobin 28.6 PG Mean Corpuscular Hemoglobin Concent 31.4 % Red Cell Distribution Width 17.1 % Platelet Count 306 TH/MM3 Mean Platelet Volume 7.0 FL Neutrophils (%) (Auto) 71.2 % Lymphocytes (%) (Auto) 7.7 % Monocytes (%) (Auto) 10.0 % Eosinophils (%) (Auto) 10.7 % Basophils (%) (Auto) 0.4 % Neutrophils # (Auto) 5.9 TH/MM3 Lymphocytes # (Auto) 0.6 TH/MM3 Monocytes # (Auto) 0.8 TH/MM3 Eosinophils # (Auto) 0.9 TH/MM3 Basophils # (Auto) 0.0 TH/MM3 CBC Comment DIFF FINAL Differential Comment Laboratory Tests Test 11/12/17 11:26 Blood Urea Nitrogen 49 MG/DL Creatinine 8.07 MG/DL Random Glucose 154 MG/DL Calcium Level 8.8 MG/DL Sodium Level 127 MEQ/L Potassium Level 4.7 MEQ/L Chloride Level 89 MEQ/L Carbon Dioxide Level 25.2 MEQ/L Anion Gap 13 MEQ/L Estimat Glomerular Filtration Rate 6 ML/MIN Imaging Last Impressions Aorta w/Runoff CTA 11/10/17 0000 Signed Impressions: Service Date/Time: Saturday, November 11, 2017 23:27 - CONCLUSION: 1. Patient does not appear to have a vascular etiology for current clinical symptoms. Despite fairly significant scattered atherosclerotic calcification, inflow and outflow is present bilaterally. The anterior tibials are diminutive distally and the peroneals continue as the anterior tibials at the ankle. 2. Small bilateral pleural effusions with concomitant atelectatic changes. 3. Extensive varicosities in the subcutaneous tissues of the abdomen and flank. This may be due to stenosis or occlusion of the IVC. Patient does have an indwelling dialysis type catheter traversing the entire length of the IVC. 4. Mottled and somewhat sclerotic appearance of the entire axial skeleton. This was present previously and is basically stable. Findings may be due to altered calcium metabolism associated with long-term renal insufficiency/failure. 5. Small umbilical hernia which only contains fat. Ministerio Wei MD Foot MRI 11/06/17 0000 Signed Impressions: Service Date/Time: Monday, November 06, 2017 12:57 - CONCLUSION: 1. The combination of radiographic findings and the abnormal T1 and T2 signal in the distal 1 cm of the fourth metatarsal is suspicious for osteomyelitis. Please note that no contrast could be administered given the patient's end-stage renal disease. 2. Signal abnormality versus inhomogeneous fat suppression involving the proximal distal phalanx of the fifth digit. 3. There is subcutaneous edema on the lateral aspect of the foot and adjacent to the distal end of the fourth metatarsal. Damián Cabrera MD Ankle MRI 11/06/17 0000 Signed Impressions: Service Date/Time: Monday, November 06, 2017 12:57 - CONCLUSION: There are no imaging findings to indicate osteomyelitis around the ankle. Please refer to foot MRI report for further description of the foot findings. Damián Cabrera MD Foot X-Ray 11/05/17 0000 Signed Impressions: Service Date/Time: Sunday, November 05, 2017 18:25 - CONCLUSION: 1. Erosions at the fourth metatarsal head suspicious for osteomyelitis. Previous amputations as above. 2. Soft tissue ulcer posterior heel just above the calcaneus. Dmitry Anton MD Physical Exam GENERAL: This is a well-nourished, well-developed patient, in no apparent distress. SKIN: No rashes, ecchymoses or lesions. Cool and dry. EYES: Pupils equal round and reactive. Extraocular motions intact. No scleral icterus. No injection or drainage. ENT: Nose without bleeding, purulent drainage or septal hematoma. Throat without erythema, tonsillar hypertrophy or exudate. Uvula midline. Airway patent. CARDIOVASCULAR: Regular rate and rhythm without murmurs, gallops, or rubs. RESPIRATORY: Clear to auscultation. Breath sounds equal bilaterally. No wheezes , rales, or rhonchi. GASTROINTESTINAL: Abdomen soft, non-tender, nondistended. MUSCULOSKELETAL: Right forefoot amputation surgical site with no evidence of infection. Close to the Achilles tendon there was a small opening with a visible type wound VAC was over it and there was some beginning of granulation tissue over it NEUROLOGICAL: Awake and alert. Nonfocal exam Psych cooperative IV line sites with no evidence of infection Right groin hemodialysis access catheter site with no evidence of infection. Assessment & Plan Remarks Assessment and Plan Assessment and Plan Possible sepsis present on admission Right foot fourth digit osteomyelitis. sp TMA 3/ - path with acute osteo Status post right foot transmetatarsal amputation. Patient is on IV vancomycin scheduled to end on November 16, 2017. Unstageable sacral decubiti with possible cellulitis High-grade leukocytosis on presentation Hypotension, suspected sepsis ? pt has groin HD access ? source of sepsis Recommendations cont IV vancomycin Continue wound care especially in the sacral area. Nystatin cream local application. Follow cultures. repeat blood clx start cefepime, micafungin following blood clx Steffany Nicolas MD Nov 12, 2017 18:58
[2017-11-12] MEDS ORDERED: VANCOMYCIN INJ 1,000 MG in SODIUM CHLOR 0.9% 250 ML INJ 250 ML IV ONE (19:30)
[2017-11-12] MEDS: ATORVASTATIN 10 MG TAB PO SCH (20:42)
[2017-11-12] MEDS: traZODone HCL 100 MG TAB PO SCH (20:42)
[2017-11-12] MEDS: GABAPENTIN 300 MG CAP PO SCH (20:43)
[2017-11-12] MEDS: ACETAMINOPHEN/HYDROcodone 325 MG/5 MG TAB PO PRN (20:44)
[2017-11-12] MEDS: CEFEPIME INJ 1,000 MG in SODIUM CHLORIDE 0.9% INJ 100 ML IV SCH (20:45)
[2017-11-12] MEDS: MICAFUNGIN INJ 150 MG in SODIUM CHLORIDE 0.9% INJ 100 ML IV SCH (22:33)
[2017-11-13] VITALS (15 sets, daily range): BP systolic 124–157; BP diastolic 59–72; PULSE 79–87; RESP 11–30; TEMP 97.6–99.5; O2SAT 86–98
[2017-11-13] MEDS: NYSTATIN 100,000 UNIT/GM CREAM 15 GM TOPICAL SCH ×4 (00:25→18:19)
[2017-11-13] MEDS: PHENYLEPHRINE INJ 40 MG in DEXTROSE 5% IN WATE 500 ML INJ 496 ML IV PRN ×2 (00:25)
[2017-11-13] MEDS: HYDROCORTISONE SOD SUCCINATE 100 MG VIAL IV PUSH SCH ×4 (00:25→18:19)
[2017-11-13] MEDS: INSULIN ASPART SUPPLEMENTAL SCALE SQ SCH ×4 (03:00→21:41)
[2017-11-13] MEDS: CHLORHEXIDINE GLUCONATE 2 % 1 PACK (2 CLOTHS)(taper/protocol) TOPICAL SCH (04:00)
[2017-11-13] MEDS: CALCIUM CARBONATE 1.25 GM (CA 500 MG) TAB PO SCH ×3 (05:12→21:42)
[2017-11-13] MEDS: HEPARIN SODIUM - SQ 10,000 UNITS/ML VIAL SQ SCH ×3 (05:12→21:42)
[2017-11-13] MEDS: MIDODRINE 5 MG TAB PO SCH ×3 (05:13→21:42)
[2017-11-13 06:32] LABS: AUTOMATED NEUTROPHIL # 10.6 TH/MM3 (1.8-7.7); BASOPHIL % 0.2 % (0.0-2.0); EOSINOPHIL % 0.3 % (0.0-4.0); HEMATOCRIT 40.3 % (35.0-46.0); HEMOGLOBIN 12.5 GM/DL (11.6-15.3); LYMPH % 2.4 % (9.0-44.0); LYMPHOCYTE # 0.3 TH/MM3 (1.0-4.8); MEAN CELL VOLUME 90.5 FL (80.0-100.0); MEAN CORPUSCULAR HEMOGLOBIN 28.2 PG (27.0-34.0); MEAN CORPUSCULAR HGB CONC 31.1 % (32.0-36.0); MEAN PLATELET VOLUME 7.8 FL (7.0-11.0); MONO % 1.1 % (0.0-8.0); MONOCYTE # 0.1 TH/MM3 (0-0.9); PLATELET COUNT 252 TH/MM3 (150-450); RED BLOOD COUNT 4.45 MIL/MM3 (4.00-5.30); RED CELL DISTRIBUTION WIDTH 17.2 % (11.6-17.2)
[2017-11-13 07:08] LABS: BICARBONATE 28.8 MEQ/L (21.0-32.0); CALCIUM 8.2 MG/DL (8.5-10.1); CREATININE 5.84 MG/DL (0.50-1.00)
--- NOTE | 2017-11-13 07:45 | HHI.CCPN ---
Subjective Remarks/Hospital Course 11/08: This is a 57-year-old female with end-stage liver disease on intermittent hemodialysis in for urgent transmetatarsal amputation. In the operating room she was worsening with aseptic with systolic in the 60s. Due to her end-stage kidney disease, she was only given 400 cc crystalloid IV fluids for concerns over volume overload. She arrived to the PACU hypotensive and unstable. Critical care medicine was consulted to evaluate and manage her hemodynamics and presumed septic shock. Of note looking back at her former admissions, her systolic blood pressure usually runs 80-100 systolic but no higher. On my evaluation, the patient denied any complaints except for fatigue. She denied leg pain. Denies chest pain, shortness of breath, fever, chills, nausea, vomiting, abdominal pain. She was given a liter of crystalloids in PACU and started on phenylephrine infusion to maintain endorgan perfusion. 11/09: Just underwent dialysis. Remains on Ayaz-Synephrine about 40 mics per minute. Resting in bed comfortably not in any acute distress. Awake and alert. Knows she is at the hospital. 11/10: Resting comfortably in bed, not in any acute distress. On Phenylephrine 30mcg/min initially when I evaluated pt. 11/11: Remains on phenylephrine gtt for hypotension. Resting in bed, not in any acute distress. 11/12 Patient is on Neosyn 55 mics. on 3L oxygen, afebrile, for HD today 11/13 No events overnight. Off Neosyn. s/p HD yesterday with removal 2.5L. Awake and alert. Objective Vital Signs Date Time Temp Pulse Resp B/P (MAP) Pulse Ox O2 Delivery O2 Flow Rate FiO2 11/13/17 07:26 95 21 11/13/17 06:50 83 145/61 11/13/17 04:00 98.6 11 11/12/17 21:01 Nasal Cannula 3.00 Intake and Output 11/13/17 11/13/17 11/14/17 08:00 16:00 00:00 Intake Total 120 ml Output Total 0 ml Balance 120 ml Result Diagram: 11/13/17 0500 11/13/17 0500 Other Results Laboratory Tests Test 11/12/17 11:26 11/13/17 05:00 White Blood Count 8.2 TH/MM3 11.0 TH/MM3 Red Blood Count 4.08 MIL/MM3 4.45 MIL/MM3 Hemoglobin 11.7 GM/DL 12.5 GM/DL Hematocrit 37.1 % 40.3 % Mean Corpuscular Volume 90.9 FL 90.5 FL Mean Corpuscular Hemoglobin 28.6 PG 28.2 PG Mean Corpuscular Hemoglobin Concent 31.4 % 31.1 % Red Cell Distribution Width 17.1 % 17.2 % Platelet Count 306 TH/MM3 252 TH/MM3 Mean Platelet Volume 7.0 FL 7.8 FL Neutrophils (%) (Auto) 71.2 % 96.0 % Lymphocytes (%) (Auto) 7.7 % 2.4 % Monocytes (%) (Auto) 10.0 % 1.1 % Eosinophils (%) (Auto) 10.7 % 0.3 % Basophils (%) (Auto) 0.4 % 0.2 % Neutrophils # (Auto) 5.9 TH/MM3 10.6 TH/MM3 Lymphocytes # (Auto) 0.6 TH/MM3 0.3 TH/MM3 Monocytes # (Auto) 0.8 TH/MM3 0.1 TH/MM3 Eosinophils # (Auto) 0.9 TH/MM3 0.0 TH/MM3 Basophils # (Auto) 0.0 TH/MM3 0.0 TH/MM3 CBC Comment DIFF FINAL DIFF FINAL Differential Comment Blood Urea Nitrogen 49 MG/DL 30 MG/DL Creatinine 8.07 MG/DL 5.84 MG/DL Random Glucose 154 MG/DL 152 MG/DL Calcium Level 8.8 MG/DL 8.2 MG/DL Sodium Level 127 MEQ/L 130 MEQ/L Potassium Level 4.7 MEQ/L 5.1 MEQ/L Chloride Level 89 MEQ/L 93 MEQ/L Carbon Dioxide Level 25.2 MEQ/L 28.8 MEQ/L Anion Gap 13 MEQ/L 8 MEQ/L Estimat Glomerular Filtration Rate 6 ML/MIN 9 ML/MIN Imaging Last Impressions Aorta w/Runoff CTA 11/10/17 0000 Signed Impressions: Service Date/Time: Saturday, November 11, 2017 23:27 - CONCLUSION: 1. Patient does not appear to have a vascular etiology for current clinical symptoms. Despite fairly significant scattered atherosclerotic calcification, inflow and outflow is present bilaterally. The anterior tibials are diminutive distally and the peroneals continue as the anterior tibials at the ankle. 2. Small bilateral pleural effusions with concomitant atelectatic changes. 3. Extensive varicosities in the subcutaneous tissues of the abdomen and flank. This may be due to stenosis or occlusion of the IVC. Patient does have an indwelling dialysis type catheter traversing the entire length of the IVC. 4. Mottled and somewhat sclerotic appearance of the entire axial skeleton. This was present previously and is basically stable. Findings may be due to altered calcium metabolism associated with long-term renal insufficiency/failure. 5. Small umbilical hernia which only contains fat. Ministerio Wei MD Foot MRI 11/06/17 0000 Signed Impressions: Service Date/Time: Monday, November 06, 2017 12:57 - CONCLUSION: 1. The combination of radiographic findings and the abnormal T1 and T2 signal in the distal 1 cm of the fourth metatarsal is suspicious for osteomyelitis. Please note that no contrast could be administered given the patient's end-stage renal disease. 2. Signal abnormality versus inhomogeneous fat suppression involving the proximal distal phalanx of the fifth digit. 3. There is subcutaneous edema on the lateral aspect of the foot and adjacent to the distal end of the fourth metatarsal. Damián Cabrera MD Ankle MRI 11/06/17 0000 Signed Impressions: Service Date/Time: Monday, November 06, 2017 12:57 - CONCLUSION: There are no imaging findings to indicate osteomyelitis around the ankle. Please refer to foot MRI report for further description of the foot findings. Damián Cabrera MD Foot X-Ray 11/05/17 0000 Signed Impressions: Service Date/Time: Sunday, November 05, 2017 18:25 - CONCLUSION: 1. Erosions at the fourth metatarsal head suspicious for osteomyelitis. Previous amputations as above. 2. Soft tissue ulcer posterior heel just above the calcaneus. Dmitry Anton MD Objective Remarks GENERAL: Middle-aged female, lying in bed, not in any acute distress HEENT: Normocephalic. Atraumatic. Pupils equal, round, reactive, conjugate. Mucous membranes are dry NECK: Trachea is midline. Obesity and large neck prevents accurate assessment of JVD CHEST: Equal chest rise. Nasal cannula oxygen. CARDIOVASCULAR: Normal rate, regular rhythm. ABDOMEN: Morbidly obese, soft, nontender, nondistended. No guarding. MUSCULOSKELETAL: Pulses 1+. No peripheral edema. Rt foot with dressing/ NIRAV wrap over surgical site, TATE drain in place NEUROLOGICAL: Awake alert oriented 3. No focal deficits. Follows commands. A/P Assessment and Plan Resp Insuff Right foot osteomyelitis Status post urgent transmetatarsal amputation 3/ Septic shock End-stage renal disease on intermittent hemodialysis sacral decubiti with possible cellulitis Plan: Neuro: Awake and alert Pulm: Continue with oxygen keep sat >92% Bronchodilators CV: Off Neosyn keep MAP>65mmHg On Midodrine 10mg Q8 Taper steroids- HC 50mg IV Q6 : Monitor renal function, I/O's, avoid nephrotoxins HD per renal-Renal- Dr. Villagran s/p HD eysetrday with removal 2.5L GI: On PO diet ID: Abx per ID (Cefepime, Micafungin)monitor for signs of infections ( Fever, WBC) Podiatry, wound care are following Follow up on BC, previous cxs all negative Heme: Monitor CBC Endo: SSI for glycemic control GI prophylaxis- on Protonix DVT prophylaxis-Heparin SQ Will sign off and transfer care to HEP Level 2 Pilo Patrick MD Nov 13, 2017 07:45
[2017-11-13] MEDS: PANTOPRAZOLE SOD 40 MG DELAYED RELEASE TAB PO SCH (08:23)
[2017-11-13] MEDS: buPROPion HCL 150 MG SUSTAINED RELEASE TAB PO SCH ×2 (08:23→21:42)
[2017-11-13] MEDS: ASPIRIN EC 81 MG TABEC PO SCH (08:23)
[2017-11-13] MEDS: SODIUM CHLORIDE 0.9% FLUSH 10 ML FLUSH IV FLUSH SCH ×2 (08:23→21:44)
[2017-11-13] MEDS: NYSTATIN 100,000 U/GM PWD 15 GM BTL TOPICAL SCH ×2 (08:24→21:45)
--- NOTE | 2017-11-13 13:12 | HHI.NPPN ---
Subjective History of Present Illness 57-year-old diabetes, right foot infection, sacral decubitus, ESRD Additional Remarks s/p TMA. She is comfortable, alert, oriented. HD Sunday and Sunday Blood pressure remains stable Review of Systems General Constitutional: Fatigue Objective Data Data Vital Signs Date Time Temp Pulse Resp B/P (MAP) Pulse Ox O2 Delivery O2 Flow Rate FiO2 11/13/17 12:00 98.3 82 19 134/62 (86) 93 11/13/17 12:00 82 11/13/17 10:00 81 11/13/17 08:23 89 Nasal Cannula 2.00 11/13/17 08:00 83 11/13/17 08:00 98.3 83 30 143/64 (90) 86 11/13/17 07:26 95 21 11/13/17 07:00 97 Nasal Cannula 3.00 11/13/17 06:50 83 145/61 11/13/17 06:00 85 11/13/17 05:30 80 105/58 11/13/17 05:00 81 132/60 11/13/17 04:45 82 140/62 11/13/17 04:30 83 143/56 11/13/17 04:15 85 154/71 11/13/17 04:00 87 11/13/17 04:00 84 157/72 11/13/17 04:00 98.6 84 11 157/72 (100) 98 11/13/17 02:00 87 11/13/17 01:35 86 144/64 11/13/17 00:25 88 111/54 11/13/17 00:00 87 11/13/17 00:00 98.5 87 11 124/61 (82) 98 11/13/17 00:00 87 124/61 11/12/17 23:00 91 136/62 11/12/17 22:00 90 11/12/17 21:01 93 Nasal Cannula 3.00 11/12/17 20:00 92 11/12/17 20:00 98.0 92 22 105/49 (67) 97 11/12/17 19:00 98 Nasal Cannula 3.00 11/12/17 19:00 87 94/61 11/12/17 18:00 92 11/12/17 16:09 81 96/58 3/5/18 16:00 79 11/12/17 16:00 97.7 79 16 100/56 (71) 100 11/12/17 14:00 87 11/12/17 13:16 10 -: 11/13/17 0500 11/13/17 0500 Microbiology 11/13/17 Aerobic Blood Culture, Received Pending 11/13/17 Anaerobic Blood Culture, Received Pending 11/13/17 Aerobic Blood Culture, Received Pending 11/13/17 Anaerobic Blood Culture, Received Pending Physical Exam General Appearance: Well Developed, Obese Neck Neck Exam: Neck Supple Pulmonary Resp Exam: Clear Bilaterally, Breath Sounds Equal Cardiology CV Exam: Regular, Normal Sinus Rhythm Gastrointestinal/Abdomen GI Exam: Soft, Bowel Sounds Present Integumentary Skin Exam: Lesion(s) Extremeties Extremities Exam: Trace Edema Extremeties Remarks s/p TMA Assessment/Plan Problem List: (1) ESRD (end stage renal disease) ICD Codes: N18.6 - End-stage renal disease Status: Chronic Plan: Patient is on hemodialysis Follow-up Sunday, Sunday and Sunday schedule s/p Rt foot TMA rt heel surgery Last HD yesterday 2.5 L off Labs stable off vasopressor (2) Sacral ulcer ICD Codes: L98.429 - Non-pressure chronic ulcer of back with unspecified severity Plan: Patient is getting vancomycin (3) Diabetes mellitus ICD Codes: E11.9 - Type 2 diabetes mellitus without complications Plan: Continue to monitor, maintain blood glucose between 140 and 180. (4) Hypotension ICD Codes: I95.9 - Hypotension Status: Resolved Plan: Patient takes midodrine (5) Morbid obesity ICD Codes: E66.01 - Morbid (severe) obesity due to excess calories Status: Chronic Problem Qualifiers (1) Diabetes mellitus: Frank Villagran MD Nov 13, 2017 13:12
[2017-11-13] MEDS: ACETAMINOPHEN/HYDROcodone 325 MG/5 MG TAB PO PRN (14:41)
[2017-11-13] MEDS: GABAPENTIN 300 MG CAP PO SCH (21:41)
[2017-11-13] MEDS: ATORVASTATIN 10 MG TAB PO SCH (21:41)
[2017-11-13] MEDS: traZODone HCL 100 MG TAB PO SCH (21:42)
[2017-11-13] MEDS: CEFEPIME INJ 1,000 MG in SODIUM CHLORIDE 0.9% INJ 100 ML IV SCH (21:43)
[2017-11-13] MEDS: MICAFUNGIN INJ 150 MG in SODIUM CHLORIDE 0.9% INJ 100 ML IV SCH (21:43)
[2017-11-14] VITALS (14 sets, daily range): BP systolic 126–158; BP diastolic 58–80; PULSE 72–82; RESP 0–16; TEMP 98.1–98.7; O2SAT 94–97
[2017-11-14] MEDS: HYDROCORTISONE SOD SUCCINATE 100 MG VIAL IV PUSH SCH ×4 (00:43→18:02)
[2017-11-14] MEDS: NYSTATIN 100,000 UNIT/GM CREAM 15 GM TOPICAL SCH ×4 (00:44→18:02)
[2017-11-14] MEDS: INSULIN ASPART SUPPLEMENTAL SCALE SQ SCH ×4 (03:00→20:31)
[2017-11-14] MEDS: ACETAMINOPHEN/HYDROcodone 325 MG/5 MG TAB PO PRN (03:12)
[2017-11-14 05:37] LABS: BASOPHIL % 0.2 % (0.0-2.0); HEMATOCRIT 36.5 % (35.0-46.0); HEMOGLOBIN 11.7 GM/DL (11.6-15.3); LYMPH % 4.1 % (9.0-44.0); LYMPHOCYTE # 0.4 TH/MM3 (1.0-4.8); MEAN CORPUSCULAR HEMOGLOBIN 28.6 PG (27.0-34.0); MEAN CORPUSCULAR HGB CONC 32.1 % (32.0-36.0); MEAN PLATELET VOLUME 6.8 FL (7.0-11.0); MONO % 2.7 % (0.0-8.0); MONOCYTE # 0.2 TH/MM3 (0-0.9); PLATELET COUNT 332 TH/MM3 (150-450); RED CELL DISTRIBUTION WIDTH 17.5 % (11.6-17.2); WHITE BLOOD COUNT 8.6 TH/MM3 (4.0-11.0)
[2017-11-14 06:11] LABS: BICARBONATE 25.1 MEQ/L (21.0-32.0); CALCIUM 8.2 MG/DL (8.5-10.1); CREATININE 7.14 MG/DL (0.50-1.00); RANDOM VANCOMYCIN 21.5 COMMENT
[2017-11-14] MEDS: CALCIUM CARBONATE 1.25 GM (CA 500 MG) TAB PO SCH ×3 (06:42→20:32)
[2017-11-14] MEDS: MIDODRINE 5 MG TAB PO SCH ×3 (06:42→20:32)
[2017-11-14] MEDS: HEPARIN SODIUM - SQ 10,000 UNITS/ML VIAL SQ SCH ×3 (06:42→20:32)
[2017-11-14] MEDS: ASPIRIN EC 81 MG TABEC PO SCH (09:30)
[2017-11-14] MEDS: PANTOPRAZOLE SOD 40 MG DELAYED RELEASE TAB PO SCH (09:30)
[2017-11-14] MEDS: buPROPion HCL 150 MG SUSTAINED RELEASE TAB PO SCH ×2 (09:30→20:31)
[2017-11-14] MEDS: SODIUM CHLORIDE 0.9% FLUSH 10 ML FLUSH IV FLUSH SCH ×2 (09:31→20:31)
[2017-11-14] MEDS: MORPHINE SULFATE 2 MG/ML INJ IV PUSH PRN ×2 (10:49→18:02)
--- NOTE | 2017-11-14 10:55 | HHI.NPPN ---
Subjective History of Present Illness 57-year-old diabetes, right foot infection, sacral decubitus, ESRD Additional Remarks s/p TMA. She is comfortable, alert, oriented. had CP 5 Min ago HD Sunday and Sunday Blood pressure remains stable Review of Systems General Constitutional: Fatigue Objective Data Data Vital Signs Date Time Temp Pulse Resp B/P (MAP) Pulse Ox O2 Delivery O2 Flow Rate FiO2 11/14/17 07:28 94 Nasal Cannula 1.00 11/14/17 06:00 74 11/14/17 04:00 98.4 79 14 151/59 (89) 94 11/14/17 04:00 79 11/14/17 02:00 78 11/14/17 00:00 98.5 78 14 126/58 (80) 96 11/14/17 00:00 78 11/13/17 23:54 96 Nasal Cannula 1.00 11/13/17 22:00 80 11/13/17 20:50 94 Nasal Cannula 1.00 11/13/17 20:00 97.6 82 13 131/62 (85) 94 11/13/17 20:00 82 11/13/17 19:00 92 Nasal Cannula 1.50 11/13/17 18:19 19 11/13/17 18:00 80 11/13/17 16:00 79 11/13/17 16:00 99.5 79 25 130/59 (82) 97 11/13/17 14:00 82 11/13/17 12:00 98.3 82 19 134/62 (86) 93 11/13/17 12:00 82 -: 11/14/17 0457 11/14/17 0457 Physical Exam General Appearance: Well Developed, Obese Neck Neck Exam: Neck Supple Pulmonary Resp Exam: Clear Bilaterally, Breath Sounds Equal Cardiology CV Exam: Regular, Normal Sinus Rhythm Gastrointestinal/Abdomen GI Exam: Soft, Bowel Sounds Present Integumentary Skin Exam: Lesion(s) Extremeties Extremities Exam: Trace Edema Extremeties Remarks s/p TMA Assessment/Plan Problem List: (1) ESRD (end stage renal disease) ICD Codes: N18.6 - End-stage renal disease Status: Chronic Plan: Patient is on hemodialysis Follow-up Sunday, Sunday and Sunday schedule s/p Rt foot TMA rt heel surgery Last HD Sunday 2.5 L off due today Labs stable off vasopressor had CP this is recurrent given Nitro better (2) Sacral ulcer ICD Codes: L98.429 - Non-pressure chronic ulcer of back with unspecified severity Plan: Patient is getting vancomycin (3) Diabetes mellitus ICD Codes: E11.9 - Type 2 diabetes mellitus without complications Plan: Continue to monitor, maintain blood glucose between 140 and 180. (4) Hypotension ICD Codes: I95.9 - Hypotension Status: Resolved Plan: Patient takes midodrine (5) Morbid obesity ICD Codes: E66.01 - Morbid (severe) obesity due to excess calories Status: Chronic Problem Qualifiers (1) Diabetes mellitus: Frank Villagran MD Nov 14, 2017 10:55
--- NOTE | 2017-11-14 11:32 | PD.CAR.PN ---
CVT Progress Note Subjective/Hospital Course: Referral received Full consult EMILEE Jolly 11/11/2017 nothing to add to care at this time Excellent work by Dr. Naqvi. We will see how patient heals and what the future brings There are no plans at this time to do any revascularization from vascular point The area starts to heal adequately patient will not need any intervention from my point and if this deteriorates then below-knee amputation may be the only option left 11/14/2017 General condition unchanged I reviewed CTA with runoff and as expected patient has good inflow some mild atherosclerotic disease in SFAs bilateral and then runoff with 3 vessels to the foot. Ones down in the foot vessels become very diminutive and patient clearly has small vessel disease from above the ankle down Nonetheless due to chronic stasis changes as well as Leiper fibrosis and chronic organized edema below the level of the knee, vessels are not palpable in the foot but only dopplerable as noted in clinical exam This is pretty good blood flow and should not be impairment to any debridements or resections as far as podiatry surgery is concerned Amputation would be an option of destruction of the foot is so severe that no further utility or reconstruction can be done Objective: Vital Signs Date Time Temp Pulse Resp B/P (MAP) Pulse Ox O2 Delivery O2 Flow Rate FiO2 11/14/17 07:28 94 Nasal Cannula 1.00 11/14/17 06:00 74 11/14/17 04:00 98.4 79 14 151/59 (89) 94 11/14/17 04:00 79 11/14/17 02:00 78 11/14/17 00:00 98.5 78 14 126/58 (80) 96 11/14/17 00:00 78 11/13/17 23:54 96 Nasal Cannula 1.00 11/13/17 22:00 80 11/13/17 20:50 94 Nasal Cannula 1.00 11/13/17 20:00 97.6 82 13 131/62 (85) 94 11/13/17 20:00 82 11/13/17 19:00 92 Nasal Cannula 1.50 11/13/17 18:19 19 11/13/17 18:00 80 11/13/17 16:00 79 11/13/17 16:00 99.5 79 25 130/59 (82) 97 11/13/17 14:00 82 11/13/17 12:00 98.3 82 19 134/62 (86) 93 11/13/17 12:00 82 Labs: Laboratory Tests Test 11/14/17 04:57 White Blood Count 8.6 TH/MM3 (4.0-11.0) Red Blood Count 4.10 MIL/MM3 (4.00-5.30) Hemoglobin 11.7 GM/DL (11.6-15.3) Hematocrit 36.5 % (35.0-46.0) Mean Corpuscular Volume 89.0 FL (80.0-100.0) Mean Corpuscular Hemoglobin 28.6 PG (27.0-34.0) Mean Corpuscular Hemoglobin Concent 32.1 % (32.0-36.0) Red Cell Distribution Width 17.5 % (11.6-17.2) Platelet Count 332 TH/MM3 (150-450) Mean Platelet Volume 6.8 FL (7.0-11.0) Neutrophils (%) (Auto) 93.0 % (16.0-70.0) Lymphocytes (%) (Auto) 4.1 % (9.0-44.0) Monocytes (%) (Auto) 2.7 % (0.0-8.0) Eosinophils (%) (Auto) 0.0 % (0.0-4.0) Basophils (%) (Auto) 0.2 % (0.0-2.0) Neutrophils # (Auto) 8.0 TH/MM3 (1.8-7.7) Lymphocytes # (Auto) 0.4 TH/MM3 (1.0-4.8) Monocytes # (Auto) 0.2 TH/MM3 (0-0.9) Eosinophils # (Auto) 0.0 TH/MM3 (0-0.4) Basophils # (Auto) 0.0 TH/MM3 (0-0.2) CBC Comment DIFF FINAL Differential Comment Blood Urea Nitrogen 44 MG/DL (7-18) Creatinine 7.14 MG/DL (0.50-1.00) Random Glucose 142 MG/DL (74-106) Calcium Level 8.2 MG/DL (8.5-10.1) Sodium Level 128 MEQ/L (136-145) Potassium Level 5.4 MEQ/L (3.5-5.1) Chloride Level 94 MEQ/L (98-107) Carbon Dioxide Level 25.1 MEQ/L (21.0-32.0) Anion Gap 9 MEQ/L (5-15) Estimat Glomerular Filtration Rate 7 ML/MIN (>89) Random Vancomycin Level 21.5 COMMENT Result Diagram: 11/14/17 0457 11/14/17 0457 Tania Ramsay MD Nov 14, 2017 11:32
[2017-11-14] MEDS: HEPARIN SODIUM - IV 10,000 UNITS/10 ML VIAL PRN (14:29)
[2017-11-14] MEDS: GENTAMICIN SULFATE 20 MG/2 ML VIAL OTHER PRN (14:29)
[2017-11-14] MEDS: EPOETIN ALFA 10,000 UNITS/ML VIAL IV PUSH PRN (14:29)
--- NOTE | 2017-11-14 15:52 | HHI.PR ---
Addendum to Inpatient Note Additional Information Pt seen today around 1330 full note to follow see in HD improving BC negative Steffany Nicolas MD Nov 14, 2017 15:52
[2017-11-14] MEDS: NYSTATIN 100,000 U/GM PWD 15 GM BTL TOPICAL SCH ×2 (16:00→20:33)
--- NOTE | 2017-11-14 19:02 | HHI.PR ---
Subjective Remarks Patient denies cp/sob sp HD today Afebrile. Objective Vitals Vital Signs Date Time Temp Pulse Resp B/P (MAP) Pulse Ox O2 Delivery O2 Flow Rate FiO2 11/14/17 16:00 98.3 73 16 158/71 (100) 94 11/14/17 16:00 74 11/14/17 14:00 75 11/14/17 12:00 74 11/14/17 12:00 98.1 74 15 152/70 (97) 94 11/14/17 10:00 81 11/14/17 08:00 98.2 72 0 143/64 (90) 94 11/14/17 08:00 72 11/14/17 07:28 94 Nasal Cannula 1.00 11/14/17 07:00 94 Nasal Cannula 1.00 11/14/17 06:00 74 11/14/17 04:00 98.4 79 14 151/59 (89) 94 11/14/17 04:00 79 11/14/17 02:00 78 11/14/17 00:00 98.5 78 14 126/58 (80) 96 11/14/17 00:00 78 11/13/17 23:54 96 Nasal Cannula 1.00 11/13/17 22:00 80 11/13/17 20:50 94 Nasal Cannula 1.00 11/13/17 20:00 97.6 82 13 131/62 (85) 94 11/13/17 20:00 82 I/O 11/13/17 11/13/17 11/13/17 11/14/17 11/14/17 11/14/17 07:00 15:00 23:00 07:00 15:00 23:00 Intake Total 220 ml 350 ml 140 ml Output Total 0 ml 0 ml 0 ml 3000 ml Balance 220 ml 350 ml 140 ml -3000 ml Intake Oral 120 ml 250 ml 140 ml IV Total 100 ml 100 ml Output Urine Total 0 ml 0 ml 0 ml Drainage Total 0 ml 0 ml Hemodialysis 3000 ml # Bowel Movements 0 0 0 Result Diagram: 11/14/17 0457 11/14/17 0457 Imaging Last Impressions Aorta w/Runoff CTA 11/10/17 0000 Signed Impressions: Service Date/Time: Saturday, November 11, 2017 23:27 - CONCLUSION: 1. Patient does not appear to have a vascular etiology for current clinical symptoms. Despite fairly significant scattered atherosclerotic calcification, inflow and outflow is present bilaterally. The anterior tibials are diminutive distally and the peroneals continue as the anterior tibials at the ankle. 2. Small bilateral pleural effusions with concomitant atelectatic changes. 3. Extensive varicosities in the subcutaneous tissues of the abdomen and flank. This may be due to stenosis or occlusion of the IVC. Patient does have an indwelling dialysis type catheter traversing the entire length of the IVC. 4. Mottled and somewhat sclerotic appearance of the entire axial skeleton. This was present previously and is basically stable. Findings may be due to altered calcium metabolism associated with long-term renal insufficiency/failure. 5. Small umbilical hernia which only contains fat. Ministerio Wei MD Foot MRI 11/06/17 Signed Impressions: Service Date/Time: Monday, November 06, 2017 12:57 - CONCLUSION: 1. The combination of radiographic findings and the abnormal T1 and T2 signal in the distal 1 cm of the fourth metatarsal is suspicious for osteomyelitis. Please note that no contrast could be administered given the patient's end-stage renal disease. 2. Signal abnormality versus inhomogeneous fat suppression involving the proximal distal phalanx of the fifth digit. 3. There is subcutaneous edema on the lateral aspect of the foot and adjacent to the distal end of the fourth metatarsal. Damián Cabrera MD Ankle MRI 11/06/17 Signed Impressions: Service Date/Time: Monday, November 06, 2017 12:57 - CONCLUSION: There are no imaging findings to indicate osteomyelitis around the ankle. Please refer to foot MRI report for further description of the foot findings. Damián Cabrera MD Foot X-Ray 11/05/17 Signed Impressions: Service Date/Time: Sunday, November 05, 2017 18:25 - CONCLUSION: 1. Erosions at the fourth metatarsal head suspicious for osteomyelitis. Previous amputations as above. 2. Soft tissue ulcer posterior heel just above the calcaneus. Dmitry Anton MD Objective Remarks GENERAL: Middle-aged female, lying in bed, not in any acute distress HEENT: Normocephalic. Atraumatic. Pupils equal, round, reactive, conjugate. Mucous membranes are dry NECK: Trachea is midline. Obesity and large neck prevents accurate assessment of JVD CHEST: Equal chest rise. Nasal cannula oxygen. CARDIOVASCULAR: Normal rate, regular rhythm. ABDOMEN: Morbidly obese, soft, nontender, nondistended. No guarding. MUSCULOSKELETAL: Pulses 1+. No peripheral edema. Rt foot with dressing/ NIRAV wrap over surgical site, TATE drain in place NEUROLOGICAL: Awake alert oriented 3. No focal deficits. Follows commands. Medications and IVs Current Medications Medications (Trade) Dose Ordered Sig/Mary Grace Route Start Time Stop Time Status Last Admin (NS Flush) 2 ml UNSCH PRN IV FLUSH 11/05/17 16:15 11/06/17 12:24 (NS Flush) 2 ml BID IV FLUSH 11/05/17 21:00 11/14/17 09:31 (Narcan Inj) 0.4 mg UNSCH PRN IV PUSH 11/05/17 16:15 (D50w (Vial) Inj) 50 ml UNSCH PRN IV PUSH 11/05/17 16:15 (Glucagon Inj) 1 mg UNSCH PRN OTHER 11/05/17 16:15 (Morphine Inj) 2 mg Q3H PRN IV PUSH 11/05/17 17:30 11/14/17 18:02 (Ecotrin Ec) 81 mg DAILY PO 11/06/17 09:00 11/14/17 09:30 (Lipitor) 10 mg HS PO 11/05/17 21:00 11/13/17 21:41 (Wellbutrin Sr) 150 mg BID PO 11/05/17 21:00 11/14/17 09:30 (Oscal) 2,000 mg Q8HR PO 11/05/17 22:00 11/14/17 13:03 (Flexeril) 10 mg BID PRN PO 11/05/17 17:30 (Neurontin) 300 mg HS PO 11/05/17 21:00 11/13/17 21:41 (Protonix) 40 mg DAILY PO 11/06/17 09:00 11/14/17 09:30 Patient Own Medication PT OWN MED:COMBIVENT RESPIMA... BID INH 11/05/17 21:00 Future Hold (Desyrel) 100 mg HS PO 11/05/17 21:00 11/13/17 21:42 Sodium Chloride 1,000 ml @ 0 mls/hr Q0M PRN OTHER 11/05/17 18:17 (Heparin Inj) 8,000 units UNSCH PRN IV FLUSH 11/05/17 18:30 Sodium Chloride 1,000 ml @ 200 mls/hr Q5H PRN IV 11/05/17 18:17 Sodium Chloride 1,000 ml @ 0 mls/hr Q0M PRN OTHER 11/05/17 18:17 (Mannitol Inj) 12.5 gm UNSCH PRN IV 11/05/17 18:30 Albumin Human 100 ml @ 60 mls/hr UNSCH PRN IV 11/05/17 18:30 11/09/17 10:33 (NS Flush) 5 ml UNSCH PRN IV FLUSH 11/05/17 18:30 (Heparin Inj) UNSCH PRN .XX 11/05/17 18:30 11/14/17 14:29 (Gentamicin Inj) 20 mg UNSCH PRN OTHER 11/05/17 18:30 11/14/17 14:29 (Zofran Inj) 4 mg UNSCH PRN IV PUSH 11/05/17 18:30 (Tylenol) 650 mg UNSCH PRN PO 11/05/17 18:30 (Benadryl) 25 mg UNSCH PRN PO 11/05/17 18:30 (Nitrostat Sl) 0.4 mg UNSCH PRN SL 11/05/17 18:30 11/14/17 10:49 (Catapres) 0.1 mg UNSCH PRN PO 11/05/17 18:30 (Gelfoam 12 Mm/7 Mm Top) 1 foam UNSCH PRN TOP 11/05/17 18:30 (Heparin Inj) 5,000 units Q8HR SQ 11/05/17 22:00 11/14/17 13:04 ([place] 5-325 Mg) 1 tab Q4H PRN PO 11/06/17 16:45 11/14/17 03:12 (Mycostatin Powder) 1 applic BID TOPICAL 11/07/17 10:00 11/14/17 16:00 (L-M-X 4 Cream) 1 applic EVERY OTHER DAY PRN TOPICAL 11/07/17 09:30 11/07/17 15:43 (Silvadene 1% Cream (50 Gm)) 1 applic EVERY OTHER DAY PRN TOPICAL 11/07/17 09:30 11/07/17 15:43 (Proamatine) 10 mg Q8HR PO 11/08/17 22:00 3/7/18 13:03 Miscellaneous Information Patient in critical care unit? Ass... Q361D .XX 11/08/17 22:15 11/08/17 22:15 (Epogen Inj) 4,000 units UNSCH PRN IV PUSH 11/09/17 10:45 11/14/17 14:29 (Mycostatin Cream) 1 applic Q6HR TOPICAL 11/11/17 12:00 11/14/17 18:02 (NovoLOG SUPPLEMENTAL SCALE) 1 Q6H SQ 11/12/17 15:00 11/14/17 09:30 (SoluCORTEF INJ) 50 mg Q6HR IV PUSH 11/12/17 13:00 11/14/17 18:02 Cefepime HCl 1000 mg/Sodium Chloride 100 ml @ 200 mls/hr Q24H IV 11/12/17 20:00 11/13/17 21:43 Micafungin Sodium 150 mg/Sodium Chloride 100 ml @ 100 mls/hr Q24H IV 11/12/17 21:00 11/13/17 21:43 A/P Problem List: (1) Leukocytosis ICD Code: D72.829 - Leukocytosis Status: Acute (2) Sacral ulcer ICD Code: L98.429 - Non-pressure chronic ulcer of back with unspecified severity (3) Diabetes mellitus ICD Code: E11.9 - Type 2 diabetes mellitus without complications (4) ESRD on hemodialysis ICD Code: N18.6 - End stage renal disease; Z99.2 - Dependence on renal dialysis Status: Chronic (5) Status post amputation of toe of right foot ICD Code: Z89.421 - Acquired absence of other right toe(s) Assessment and Plan Resp Insuff Right foot osteomyelitis Status post urgent transmetatarsal amputation 11/08 Septic shock End-stage renal disease on intermittent hemodialysis sacral decubiti with possible cellulitis Resp insufciency resolved Continue supplemental o2 to keep an o2 sat more than 92%. Antibiotics per ID septic shock resolved after IV fluids and neosynephrine on HD as per nephrology Problem Qualifiers (1) Leukocytosis: Qualified Codes: D72.829 - Elevated white blood cell count, unspecified (2) Diabetes mellitus: Elieser Whatley MD Nov 14, 2017 19:02
[2017-11-14] MEDS: CEFEPIME INJ 1,000 MG in SODIUM CHLORIDE 0.9% INJ 100 ML IV SCH (20:30)
[2017-11-14] MEDS: MICAFUNGIN INJ 150 MG in SODIUM CHLORIDE 0.9% INJ 100 ML IV SCH (20:30)
[2017-11-14] MEDS: ATORVASTATIN 10 MG TAB PO SCH (20:31)
[2017-11-14] MEDS: GABAPENTIN 300 MG CAP PO SCH (20:31)
[2017-11-14] MEDS: traZODone HCL 100 MG TAB PO SCH (20:31)
--- NOTE | 2017-11-14 23:32 | HHI.IDPN ---
Subjective Subjective Remarks Pt seen today around 1330 this is a delayed entry see during HD improving BC negative afebrile Antibiotics vancomycin Past Medical History DM osteo Allergies: Coded Allergies: levofloxacin (Unverified Allergy, Severe, Anaphylaxis, 09/12/17) ANAPHYLAXIS Objective . Vital Signs Date Time Temp Pulse Resp B/P (MAP) Pulse Ox O2 Delivery O2 Flow Rate FiO2 11/14/17 22:00 80 11/14/17 20:00 98.7 81 15 155/80 (105) 97 11/14/17 20:00 81 11/14/17 19:43 94 Nasal Cannula 1.00 11/14/17 19:00 96 Nasal Cannula 1.00 11/14/17 18:00 82 11/14/17 16:00 98.3 73 16 158/71 (100) 94 11/14/17 16:00 74 11/14/17 14:00 75 11/14/17 12:00 74 11/14/17 12:00 98.1 74 15 152/70 (97) 94 11/14/17 10:00 81 11/14/17 08:00 98.2 72 0 143/64 (90) 94 11/14/17 08:00 72 11/14/17 07:28 94 Nasal Cannula 1.00 11/14/17 07:00 94 Nasal Cannula 1.00 11/14/17 06:00 74 11/14/17 04:00 98.4 79 14 151/59 (89) 94 11/14/17 04:00 79 11/14/17 02:00 78 11/14/17 00:00 98.5 78 14 126/58 (80) 96 11/14/17 00:00 78 11/13/17 23:54 96 Nasal Cannula 1.00 11/14/17 11/14/17 11/15/17 14:59 22:59 06:59 Intake Total 880 ml Output Total 3000 ml Balance -2120 ml Intake Oral 480 ml IV Total 400 ml Output Urine Total 0 ml Hemodialysis 3000 ml # Bowel Movements 1 . Laboratory Tests Test 11/13/17 05:00 11/14/17 04:57 White Blood Count 11.0 TH/MM3 8.6 TH/MM3 Red Blood Count 4.45 MIL/MM3 4.10 MIL/MM3 Hemoglobin 12.5 GM/DL 11.7 GM/DL Hematocrit 40.3 % 36.5 % Mean Corpuscular Volume 90.5 FL 89.0 FL Mean Corpuscular Hemoglobin 28.2 PG 28.6 PG Mean Corpuscular Hemoglobin Concent 31.1 % 32.1 % Red Cell Distribution Width 17.2 % 17.5 % Platelet Count 252 TH/MM3 332 TH/MM3 Mean Platelet Volume 7.8 FL 6.8 FL Neutrophils (%) (Auto) 96.0 % 93.0 % Lymphocytes (%) (Auto) 2.4 % 4.1 % Monocytes (%) (Auto) 1.1 % 2.7 % Eosinophils (%) (Auto) 0.3 % 0.0 % Basophils (%) (Auto) 0.2 % 0.2 % Neutrophils # (Auto) 10.6 TH/MM3 8.0 TH/MM3 Lymphocytes # (Auto) 0.3 TH/MM3 0.4 TH/MM3 Monocytes # (Auto) 0.1 TH/MM3 0.2 TH/MM3 Eosinophils # (Auto) 0.0 TH/MM3 0.0 TH/MM3 Basophils # (Auto) 0.0 TH/MM3 0.0 TH/MM3 CBC Comment DIFF FINAL DIFF FINAL Differential Comment Laboratory Tests Test 11/13/17 05:00 11/14/17 04:57 Blood Urea Nitrogen 30 MG/DL 44 MG/DL Creatinine 5.84 MG/DL 7.14 MG/DL Random Glucose 152 MG/DL 142 MG/DL Calcium Level 8.2 MG/DL 8.2 MG/DL Sodium Level 130 MEQ/L 128 MEQ/L Potassium Level 5.1 MEQ/L 5.4 MEQ/L Chloride Level 93 MEQ/L 94 MEQ/L Carbon Dioxide Level 28.8 MEQ/L 25.1 MEQ/L Anion Gap 8 MEQ/L 9 MEQ/L Estimat Glomerular Filtration Rate 9 ML/MIN 7 ML/MIN Microbiology Date/Time Source Procedure Growth Status 11/13/17 05:25 Blood Peripheral Aerobic Blood Culture - Preliminary NO GROWTH IN 1 DAY Resulted 11/13/17 05:25 Blood Peripheral Anaerobic Blood Culture - Preliminary NO GROWTH IN 1 DAY Resulted 11/13/17 05:00 Blood Peripheral Aerobic Blood Culture - Preliminary NO GROWTH IN 1 DAY Resulted 11/13/17 05:00 Blood Peripheral Anaerobic Blood Culture - Preliminary NO GROWTH IN 1 DAY Resulted Imaging Last Impressions Aorta w/Runoff CTA 11/10/17 0000 Signed Impressions: Service Date/Time: Saturday, November 11, 2017 23:27 - CONCLUSION: 1. Patient does not appear to have a vascular etiology for current clinical symptoms. Despite fairly significant scattered atherosclerotic calcification, inflow and outflow is present bilaterally. The anterior tibials are diminutive distally and the peroneals continue as the anterior tibials at the ankle. 2. Small bilateral pleural effusions with concomitant atelectatic changes. 3. Extensive varicosities in the subcutaneous tissues of the abdomen and flank. This may be due to stenosis or occlusion of the IVC. Patient does have an indwelling dialysis type catheter traversing the entire length of the IVC. 4. Mottled and somewhat sclerotic appearance of the entire axial skeleton. This was present previously and is basically stable. Findings may be due to altered calcium metabolism associated with long-term renal insufficiency/failure. 5. Small umbilical hernia which only contains fat. Ministerio Wei MD Foot MRI 11/06/17 0000 Signed Impressions: Service Date/Time: Monday, November 06, 2017 12:57 - CONCLUSION: 1. The combination of radiographic findings and the abnormal T1 and T2 signal in the distal 1 cm of the fourth metatarsal is suspicious for osteomyelitis. Please note that no contrast could be administered given the patient's end-stage renal disease. 2. Signal abnormality versus inhomogeneous fat suppression involving the proximal distal phalanx of the fifth digit. 3. There is subcutaneous edema on the lateral aspect of the foot and adjacent to the distal end of the fourth metatarsal. Damián Cabrera MD Ankle MRI 11/06/17 0000 Signed Impressions: Service Date/Time: Monday, November 06, 2017 12:57 - CONCLUSION: There are no imaging findings to indicate osteomyelitis around the ankle. Please refer to foot MRI report for further description of the foot findings. Damián Cabrera MD Foot X-Ray 11/05/17 0000 Signed Impressions: Service Date/Time: Sunday, November 05, 2017 18:25 - CONCLUSION: 1. Erosions at the fourth metatarsal head suspicious for osteomyelitis. Previous amputations as above. 2. Soft tissue ulcer posterior heel just above the calcaneus. Dmitry Anton MD Physical Exam GENERAL: This is a well-nourished, well-developed patient, in no apparent distress. SKIN: No rashes, ecchymoses or lesions. Cool and dry. EYES: Pupils equal round and reactive. Extraocular motions intact. No scleral icterus. No injection or drainage. ENT: face edematous CARDIOVASCULAR: Regular rate and rhythm without murmurs, gallops, or rubs. RESPIRATORY: Clear to auscultation. Breath sounds equal bilaterally. No wheezes , rales, or rhonchi. GASTROINTESTINAL: Abdomen soft, non-tender, nondistended. MUSCULOSKELETAL: Right forefoot amputation surgical site with no evidence of infection. Close to the Achilles tendon there was a small opening with a visible type wound VAC was over it and there was some beginning of granulation tissue over it Incision site appears dusky, but approximated NEUROLOGICAL: Awake and alert. Nonfocal exam Psych cooperative IV line sites with no evidence of infection Right groin hemodialysis access catheter site with no evidence of infection. Assessment & Plan Remarks Assessment and Plan Assessment and Plan Possible sepsis present on admission Right foot fourth digit osteomyelitis. sp TMA 3/ - path with acute osteo Status post right foot transmetatarsal amputation. Patient is on IV vancomycin scheduled to end on November 16, 2017. Unstageable sacral decubiti with possible cellulitis High-grade leukocytosis on presentation Hypotension, suspected sepsis ? pt has groin HD access ? source of sepsis Recommendations cont IV vancomycin dc cefepime, micafungin if blood clx (repeat) remain neggative Steffany Nicolas MD Nov 14, 2017 23:32
[2017-11-15] VITALS (14 sets, daily range): BP systolic 127–171; BP diastolic 61–77; PULSE 66–78; RESP 14–29; TEMP 97.7–98.9; O2SAT 95–100
[2017-11-15] MEDS: HYDROCORTISONE SOD SUCCINATE 100 MG VIAL IV PUSH SCH ×4 (00:20→17:09)
[2017-11-15] MEDS: NYSTATIN 100,000 UNIT/GM CREAM 15 GM TOPICAL SCH ×4 (00:20→17:10)
[2017-11-15] MEDS: ACETAMINOPHEN/HYDROcodone 325 MG/5 MG TAB PO PRN (02:24)
[2017-11-15] MEDS: INSULIN ASPART SUPPLEMENTAL SCALE SQ SCH ×4 (02:24→22:40)
[2017-11-15] MEDS: MORPHINE SULFATE 2 MG/ML INJ IV PUSH PRN ×3 (03:13→22:20)
[2017-11-15] MEDS: CALCIUM CARBONATE 1.25 GM (CA 500 MG) TAB PO SCH ×3 (06:17→22:21)
[2017-11-15] MEDS: MIDODRINE 5 MG TAB PO SCH ×3 (06:17→22:00)
[2017-11-15] MEDS: HEPARIN SODIUM - SQ 10,000 UNITS/ML VIAL SQ SCH ×3 (06:17→22:22)
[2017-11-15] MEDS: ASPIRIN EC 81 MG TABEC PO SCH (08:44)
[2017-11-15] MEDS: PANTOPRAZOLE SOD 40 MG DELAYED RELEASE TAB PO SCH (08:45)
[2017-11-15] MEDS: NYSTATIN 100,000 U/GM PWD 15 GM BTL TOPICAL SCH ×2 (08:45→21:00)
[2017-11-15] MEDS: buPROPion HCL 150 MG SUSTAINED RELEASE TAB PO SCH ×2 (08:45→22:21)
[2017-11-15] MEDS: SODIUM CHLORIDE 0.9% FLUSH 10 ML FLUSH IV FLUSH SCH ×2 (08:45→22:20)
--- NOTE | 2017-11-15 10:57 | HHI.NPPN ---
Subjective History of Present Illness 57-year-old diabetes, right foot infection, sacral decubitus, ESRD Additional Remarks s/p TMA. She is comfortable, alert, oriented. had CP 5 Min ago HD Sunday and Sunday Blood pressure remains stable Review of Systems General Constitutional: Fatigue Objective Data Data Vital Signs Date Time Temp Pulse Resp B/P (MAP) Pulse Ox O2 Delivery O2 Flow Rate FiO2 11/15/17 10:00 77 11/15/17 08:00 97.7 72 24 171/77 (108) 98 11/15/17 08:00 72 11/15/17 07:09 100 Nasal Cannula 1.00 11/15/17 06:00 66 11/15/17 04:00 72 11/15/17 04:00 98.9 72 14 151/69 (96) 96 11/15/17 03:18 12 11/15/17 03:18 12 11/15/17 02:00 77 11/15/17 00:00 98.5 78 29 127/61 (83) 97 11/15/17 00:00 78 11/14/17 22:00 80 11/14/17 20:00 98.7 81 15 155/80 (105) 97 11/14/17 20:00 81 11/14/17 19:43 94 Nasal Cannula 1.00 11/14/17 19:00 96 Nasal Cannula 1.00 11/14/17 18:00 82 11/14/17 16:00 98.3 73 16 158/71 (100) 94 11/14/17 16:00 74 11/14/17 14:00 75 11/14/17 12:00 74 11/14/17 12:00 98.1 74 15 152/70 (97) 94 -: 11/14/17 0457 11/14/17 0457 Physical Exam General Appearance: Well Developed, Obese Neck Neck Exam: Neck Supple Pulmonary Resp Exam: Clear Bilaterally, Breath Sounds Equal Cardiology CV Exam: Regular, Normal Sinus Rhythm Gastrointestinal/Abdomen GI Exam: Soft, Bowel Sounds Present Integumentary Skin Exam: Lesion(s) Extremeties Extremities Exam: Trace Edema Extremeties Remarks s/p TMA Assessment/Plan Problem List: (1) ESRD (end stage renal disease) ICD Codes: N18.6 - End-stage renal disease Status: Chronic Plan: Patient is on hemodialysis Follow-up Sunday, Sunday and Sunday schedule s/p Rt foot TMA rt heel surgery Last HD yesterday 3 L off Labs stable off vasopressor Cefepime dc Vanco to continue (2) Sacral ulcer ICD Codes: L98.429 - Non-pressure chronic ulcer of back with unspecified severity Plan: Patient is getting vancomycin (3) Diabetes mellitus ICD Codes: E11.9 - Type 2 diabetes mellitus without complications Plan: Continue to monitor, maintain blood glucose between 140 and 180. (4) Hypotension ICD Codes: I95.9 - Hypotension Status: Resolved Plan: Patient takes midodrine (5) Morbid obesity ICD Codes: E66.01 - Morbid (severe) obesity due to excess calories Status: Chronic Problem Qualifiers (1) Diabetes mellitus: Frank Villagran MD Nov 15, 2017 10:57
--- NOTE | 2017-11-15 17:12 | HHI.PR ---
Subjective Remarks Patient denies cp/sob. Afebrile pain controlled. no diarrhea or rash Objective Vitals Vital Signs Date Time Temp Pulse Resp B/P (MAP) Pulse Ox O2 Delivery O2 Flow Rate FiO2 11/15/17 16:18 16 11/15/17 16:00 73 11/15/17 14:00 74 11/15/17 12:00 71 11/15/17 12:00 98.4 71 14 165/76 (105) 99 11/15/17 10:00 77 11/15/17 08:00 97.7 72 24 171/77 (108) 98 11/15/17 08:00 72 11/15/17 07:09 100 Nasal Cannula 1.00 11/15/17 07:00 100 Nasal Cannula 1.00 11/15/17 06:00 66 11/15/17 04:00 72 11/15/17 04:00 98.9 72 14 151/69 (96) 96 11/15/17 03:18 12 11/15/17 02:00 77 11/15/17 00:00 98.5 78 29 127/61 (83) 97 11/15/17 00:00 78 11/14/17 22:00 80 11/14/17 20:00 98.7 81 15 155/80 (105) 97 11/14/17 20:00 81 11/14/17 19:43 94 Nasal Cannula 1.00 11/14/17 19:00 96 Nasal Cannula 1.00 11/14/17 18:00 82 I/O 11/14/17 11/14/17 11/14/17 11/15/17 11/15/17 11/15/17 06:59 14:59 22:59 06:59 14:59 22:59 Intake Total 140 ml 880 ml 480 ml Output Total 0 ml 3000 ml 0 ml Balance 140 ml -2120 ml 480 ml Intake Oral 140 ml 480 ml 480 ml IV Total 400 ml Output Urine Total 0 ml 0 ml 0 ml Drainage Total 0 ml Hemodialysis 3000 ml # Bowel Movements 0 1 0 Result Diagram: 11/14/17 0457 11/14/17 0457 Imaging Last Impressions Aorta w/Runoff CTA 11/10/17 0000 Signed Impressions: Service Date/Time: Saturday, November 11, 2017 23:27 - CONCLUSION: 1. Patient does not appear to have a vascular etiology for current clinical symptoms. Despite fairly significant scattered atherosclerotic calcification, inflow and outflow is present bilaterally. The anterior tibials are diminutive distally and the peroneals continue as the anterior tibials at the ankle. 2. Small bilateral pleural effusions with concomitant atelectatic changes. 3. Extensive varicosities in the subcutaneous tissues of the abdomen and flank. This may be due to stenosis or occlusion of the IVC. Patient does have an indwelling dialysis type catheter traversing the entire length of the IVC. 4. Mottled and somewhat sclerotic appearance of the entire axial skeleton. This was present previously and is basically stable. Findings may be due to altered calcium metabolism associated with long-term renal insufficiency/failure. 5. Small umbilical hernia which only contains fat. Ministerio Wei MD Foot MRI 11/06/17 Signed Impressions: Service Date/Time: Monday, November 06, 2017 12:57 - CONCLUSION: 1. The combination of radiographic findings and the abnormal T1 and T2 signal in the distal 1 cm of the fourth metatarsal is suspicious for osteomyelitis. Please note that no contrast could be administered given the patient's end-stage renal disease. 2. Signal abnormality versus inhomogeneous fat suppression involving the proximal distal phalanx of the fifth digit. 3. There is subcutaneous edema on the lateral aspect of the foot and adjacent to the distal end of the fourth metatarsal. Damián Cabrera MD Ankle MRI 11/06/17 0000 Signed Impressions: Service Date/Time: Monday, November 06, 2017 12:57 - CONCLUSION: There are no imaging findings to indicate osteomyelitis around the ankle. Please refer to foot MRI report for further description of the foot findings. Damián Cabrera MD Foot X-Ray 11/05/17 0000 Signed Impressions: Service Date/Time: Sunday, November 05, 2017 18:25 - CONCLUSION: 1. Erosions at the fourth metatarsal head suspicious for osteomyelitis. Previous amputations as above. 2. Soft tissue ulcer posterior heel just above the calcaneus. Dmitry Anton MD Objective Remarks GENERAL: Middle-aged female, lying in bed, not in any acute distress HEENT: Normocephalic. Atraumatic. Pupils equal, round, reactive, conjugate. Mucous membranes are dry NECK: Trachea is midline. Obesity and large neck prevents accurate assessment of JVD CHEST: Equal chest rise. Nasal cannula oxygen. CARDIOVASCULAR: Normal rate, regular rhythm. ABDOMEN: Morbidly obese, soft, nontender, nondistended. No guarding. MUSCULOSKELETAL: Pulses 1+. No peripheral edema. Rt foot with dressing/ NIRAV wrap over surgical site, TATE drain in place NEUROLOGICAL: Awake alert oriented 3. No focal deficits. Follows commands. A/P Problem List: (1) Leukocytosis ICD Code: D72.829 - Leukocytosis Status: Acute (2) Sacral ulcer ICD Code: L98.429 - Non-pressure chronic ulcer of back with unspecified severity (3) Diabetes mellitus ICD Code: E11.9 - Type 2 diabetes mellitus without complications (4) ESRD on hemodialysis ICD Code: N18.6 - End stage renal disease; Z99.2 - Dependence on renal dialysis Status: Chronic (5) Status post amputation of toe of right foot ICD Code: Z89.421 - Acquired absence of other right toe(s) Assessment and Plan Sepsis - present on admission Resp Insuff Right foot osteomyelitis Status post urgent transmetatarsal amputation 11/08 Septic shock End-stage renal disease on intermittent hemodialysis sacral decubiti with possible cellulitis Diabetes with hyperglycemia. Resp insufficiency resolved Continue supplemental o2 to keep an o2 sat more than 92%. Antibiotics per ID - recommends IV Vancomycin and discontinuation of Cefepime and Micafungin if repeat blood cultures negative. IV Vancomycin en date is 11/16. septic shock resolved after IV fluids and neosynephrine. Patient's bp now slightly elevated. Dc solucortef. Hold Midodrine. on HD as per nephrology PT recommends home with home health PT. Continue SSI with insulin. DC IV steroids - blood sugars should improve. DVT prophylaxis - on heparin SQ Discharge Planning ok to transfer to medical floor. DC when cleared by ID. Possible DC in 1 to 2 days. Ok to transfer to the medical floor. Problem Qualifiers (1) Leukocytosis: Qualified Codes: D72.829 - Elevated white blood cell count, unspecified (2) Diabetes mellitus: Elieser Whatley MD Nov 15, 2017 17:12
[2017-11-15] MEDS: ATORVASTATIN 10 MG TAB PO SCH (22:20)
[2017-11-15] MEDS: CEFEPIME INJ 1,000 MG in SODIUM CHLORIDE 0.9% INJ 100 ML IV SCH (22:20)
[2017-11-15] MEDS: GABAPENTIN 300 MG CAP PO SCH (22:21)
[2017-11-15] MEDS: traZODone HCL 100 MG TAB PO SCH (22:21)
[2017-11-15] MEDS: MICAFUNGIN INJ 150 MG in SODIUM CHLORIDE 0.9% INJ 100 ML IV SCH (22:40)
[2017-11-16] VITALS (10 sets, daily range): BP systolic 119–148; BP diastolic 63–88; PULSE 68–88; RESP 14–30; TEMP 97.8–98.3; O2SAT 95–100
[2017-11-16] MEDS: INSULIN ASPART SUPPLEMENTAL SCALE SQ SCH ×4 (03:00→21:00)
[2017-11-16] MEDS: CALCIUM CARBONATE 1.25 GM (CA 500 MG) TAB PO SCH ×3 (05:56→22:12)
[2017-11-16] MEDS: HEPARIN SODIUM - SQ 10,000 UNITS/ML VIAL SQ SCH ×3 (05:56→22:14)
[2017-11-16] MEDS: MIDODRINE 5 MG TAB PO SCH ×3 (06:00→22:12)
[2017-11-16 07:00] LABS: HEMATOCRIT 38.3 % (35.0-46.0); HEMOGLOBIN 12.1 GM/DL (11.6-15.3); MEAN CELL VOLUME 89.9 FL (80.0-100.0); MEAN CORPUSCULAR HEMOGLOBIN 28.4 PG (27.0-34.0); MEAN CORPUSCULAR HGB CONC 31.6 % (32.0-36.0); MEAN PLATELET VOLUME 6.9 FL (7.0-11.0); PLATELET COUNT 366 TH/MM3 (150-450); RED BLOOD COUNT 4.26 MIL/MM3 (4.00-5.30); RED CELL DISTRIBUTION WIDTH 17.3 % (11.6-17.2); WHITE BLOOD COUNT 11.9 TH/MM3 (4.0-11.0)
[2017-11-16 07:23] LABS: BICARBONATE 27.2 MEQ/L (21.0-32.0); CALCIUM 8.6 MG/DL (8.5-10.1); CREATININE 7.28 MG/DL (0.50-1.00)
[2017-11-16] MEDS: PANTOPRAZOLE SOD 40 MG DELAYED RELEASE TAB PO SCH (08:04)
[2017-11-16] MEDS: ASPIRIN EC 81 MG TABEC PO SCH (08:04)
[2017-11-16] MEDS: buPROPion HCL 150 MG SUSTAINED RELEASE TAB PO SCH ×2 (08:04→22:11)
[2017-11-16] MEDS: SODIUM CHLORIDE 0.9% FLUSH 10 ML FLUSH IV FLUSH SCH ×2 (08:04→22:14)
[2017-11-16] MEDS: NYSTATIN 100,000 U/GM PWD 15 GM BTL TOPICAL SCH ×2 (08:05→22:13)
[2017-11-16] MEDS: NYSTATIN 100,000 UNIT/GM CREAM 15 GM TOPICAL SCH ×4 (12:00→22:13)
[2017-11-16] MEDS: ALBUMIN 25% INJ 100 ML IV PRN ×2 (15:15→15:16)
[2017-11-16] MEDS: HEPARIN SODIUM - IV 10,000 UNITS/10 ML VIAL PRN (15:16)
[2017-11-16] MEDS: GENTAMICIN SULFATE 20 MG/2 ML VIAL OTHER PRN (15:17)
--- NOTE | 2017-11-16 17:13 | HHI.NPPN ---
Subjective History of Present Illness 57-year-old diabetes, right foot infection, sacral decubitus, ESRD Additional Remarks s/p TMA. She is comfortable, alert, oriented. had CP 5 Min ago HD Sunday and Sunday Blood pressure remains stable Review of Systems General Constitutional: Fatigue Objective Data Data 11/16/17 11/17/17 19:00 07:00 Intake Total 120 ml Output Total 0 ml Balance 120 ml Intake Oral 120 ml Output Urine Total 0 ml # Bowel Movements 0 Vital Signs Date Time Temp Pulse Resp B/P (MAP) Pulse Ox O2 Delivery O2 Flow Rate FiO2 11/16/17 12:00 98.0 70 17 120/63 (82) 98 11/16/17 12:00 70 11/16/17 10:00 72 11/16/17 08:00 97.8 74 30 137/64 (88) 98 11/16/17 08:00 74 11/16/17 07:29 100 Nasal Cannula 1.00 11/16/17 07:00 100 Nasal Cannula 1.00 11/16/17 06:00 88 11/16/17 04:00 88 11/16/17 04:00 68 18 143/88 (106) 97 11/16/17 02:00 72 11/16/17 00:00 98.0 72 14 148/66 (93) 95 11/16/17 00:00 72 11/15/17 22:41 16 11/15/17 22:00 78 11/15/17 20:00 97.9 72 18 160/73 (102) 95 11/15/17 20:00 Nasal Cannula 1.00 21 11/15/17 20:00 75 11/15/17 19:49 100 Nasal Cannula 1.00 11/15/17 18:00 67 -: 11/16/17 0542 11/16/17 0542 Physical Exam General Appearance: Well Developed, Obese Neck Neck Exam: Neck Supple Pulmonary Resp Exam: Clear Bilaterally, Breath Sounds Equal Cardiology CV Exam: Regular, Normal Sinus Rhythm Gastrointestinal/Abdomen GI Exam: Soft, Bowel Sounds Present Integumentary Skin Exam: Lesion(s) Extremeties Extremities Exam: Trace Edema Extremeties Remarks s/p TMA Assessment/Plan Problem List: (1) ESRD (end stage renal disease) ICD Codes: N18.6 - End-stage renal disease Status: Chronic Plan: Patient is on hemodialysis Follow-up Sunday, Sunday and Sunday schedule s/p Rt foot TMA rt heel surgery HD seen at dialysis 5 L off Labs stable off vasopressor Cefepime Vanco to continue (2) Sacral ulcer ICD Codes: L98.429 - Non-pressure chronic ulcer of back with unspecified severity Plan: Patient is getting vancomycin (3) Diabetes mellitus ICD Codes: E11.9 - Type 2 diabetes mellitus without complications Plan: Continue to monitor, maintain blood glucose between 140 and 180. (4) Hypotension ICD Codes: I95.9 - Hypotension Status: Resolved Plan: Patient takes midodrine (5) Morbid obesity ICD Codes: E66.01 - Morbid (severe) obesity due to excess calories Status: Chronic Problem Qualifiers (1) Diabetes mellitus: Frank Villagran MD Nov 16, 2017 17:13
--- NOTE | 2017-11-16 17:39 | HHI.PR ---
Subjective Remarks 11/08: This is a 57-year-old female with end-stage liver disease on intermittent hemodialysis in for urgent transmetatarsal amputation. In the operating room she was worsening with aseptic with systolic in the 60s. Due to her end-stage kidney disease, she was only given 400 cc crystalloid IV fluids for concerns over volume overload. She arrived to the PACU hypotensive and unstable. Critical care medicine was consulted to evaluate and manage her hemodynamics and presumed septic shock. Of note looking back at her former admissions, her systolic blood pressure usually runs 80-100 systolic but no higher. On my evaluation, the patient denied any complaints except for fatigue. She denied leg pain. Denies chest pain, shortness of breath, fever, chills, nausea, vomiting, abdominal pain. She was given a liter of crystalloids in PACU and started on phenylephrine infusion to maintain endorgan perfusion. 3: Just underwent dialysis. Remains on Ayaz-Synephrine about 40 mics per minute. Resting in bed comfortably not in any acute distress. Awake and alert. Knows she is at the hospital. 11/10: Resting comfortably in bed, not in any acute distress. On Phenylephrine 30mcg/min initially when I evaluated pt. 11/11: Remains on phenylephrine gtt for hypotension. Resting in bed, not in any acute distress. 11/12 Patient is on Neosyn 55 mics. on 3L oxygen, afebrile, for HD today 11/13 No events overnight. Off Neosyn. s/p HD yesterday with removal 2.5L. Awake and alert.Patient seen on hemodialysis. No current complaints 11-16 Tolerating her hemodialysis without issues Denies any shortness of breath or chest pain or nausea or vomiting Wants to go home with home health care--patient states she lives with her sister in her sister's house Objective Vitals Vital Signs Date Time Temp Pulse Resp B/P (MAP) Pulse Ox O2 Delivery O2 Flow Rate FiO2 11/16/17 12:00 98.0 70 17 120/63 (82) 98 11/16/17 12:00 70 11/16/17 10:00 72 11/16/17 08:00 97.8 74 30 137/64 (88) 98 11/16/17 08:00 74 11/16/17 07:29 100 Nasal Cannula 1.00 11/16/17 07:00 100 Nasal Cannula 1.00 11/16/17 06:00 88 11/16/17 04:00 88 11/16/17 04:00 68 18 143/88 (106) 97 11/16/17 02:00 72 11/16/17 00:00 98.0 72 14 148/66 (93) 95 11/16/17 00:00 72 11/15/17 22:41 16 11/15/17 22:00 78 11/15/17 20:00 97.9 72 18 160/73 (102) 95 11/15/17 20:00 Nasal Cannula 1.00 21 11/15/17 20:00 75 11/15/17 19:49 100 Nasal Cannula 1.00 11/15/17 18:00 67 I/O 11/15/17 11/15/17 11/15/17 11/16/17 11/16/17 11/16/17 07:00 15:00 23:00 07:00 15:00 23:00 Intake Total 480 ml 240 ml 400 ml 120 ml Output Total 0 ml 0 ml 0 ml Balance 480 ml 240 ml 400 ml 120 ml Intake Oral 480 ml 240 ml 120 ml IV Total 400 ml Output Urine Total 0 ml 0 ml 0 ml # Bowel Movements 0 1 0 Result Diagram: 11/16/17 0542 11/16/17 0542 Other Results Laboratory Tests Test 11/14/17 04:57 11/16/17 05:42 White Blood Count 8.6 TH/MM3 11.9 TH/MM3 Red Blood Count 4.10 MIL/MM3 4.26 MIL/MM3 Hemoglobin 11.7 GM/DL 12.1 GM/DL Hematocrit 36.5 % 38.3 % Mean Corpuscular Volume 89.0 FL 89.9 FL Mean Corpuscular Hemoglobin 28.6 PG 28.4 PG Mean Corpuscular Hemoglobin Concent 32.1 % 31.6 % Red Cell Distribution Width 17.5 % 17.3 % Platelet Count 332 TH/MM3 366 TH/MM3 Mean Platelet Volume 6.8 FL 6.9 FL Neutrophils (%) (Auto) 93.0 % Lymphocytes (%) (Auto) 4.1 % Monocytes (%) (Auto) 2.7 % Eosinophils (%) (Auto) 0.0 % Basophils (%) (Auto) 0.2 % Neutrophils # (Auto) 8.0 TH/MM3 Lymphocytes # (Auto) 0.4 TH/MM3 Monocytes # (Auto) 0.2 TH/MM3 Eosinophils # (Auto) 0.0 TH/MM3 Basophils # (Auto) 0.0 TH/MM3 CBC Comment DIFF FINAL Differential Comment Blood Urea Nitrogen 44 MG/DL 56 MG/DL Creatinine 7.14 MG/DL 7.28 MG/DL Random Glucose 142 MG/DL 102 MG/DL Calcium Level 8.2 MG/DL 8.6 MG/DL Sodium Level 128 MEQ/L 132 MEQ/L Potassium Level 5.4 MEQ/L 4.9 MEQ/L Chloride Level 94 MEQ/L 95 MEQ/L Carbon Dioxide Level 25.1 MEQ/L 27.2 MEQ/L Anion Gap 9 MEQ/L 10 MEQ/L Estimat Glomerular Filtration Rate 7 ML/MIN 7 ML/MIN Random Vancomycin Level 21.5 COMMENT Imaging Last Impressions Aorta w/Runoff CTA 11/10/17 0000 Signed Impressions: Service Date/Time: Saturday, November 11, 2017 23:27 - CONCLUSION: 1. Patient does not appear to have a vascular etiology for current clinical symptoms. Despite fairly significant scattered atherosclerotic calcification, inflow and outflow is present bilaterally. The anterior tibials are diminutive distally and the peroneals continue as the anterior tibials at the ankle. 2. Small bilateral pleural effusions with concomitant atelectatic changes. 3. Extensive varicosities in the subcutaneous tissues of the abdomen and flank. This may be due to stenosis or occlusion of the IVC. Patient does have an indwelling dialysis type catheter traversing the entire length of the IVC. 4. Mottled and somewhat sclerotic appearance of the entire axial skeleton. This was present previously and is basically stable. Findings may be due to altered calcium metabolism associated with long-term renal insufficiency/failure. 5. Small umbilical hernia which only contains fat. Ministerio Wei MD Foot MRI 11/06/17 0000 Signed Impressions: Service Date/Time: Monday, November 06, 2017 12:57 - CONCLUSION: 1. The combination of radiographic findings and the abnormal T1 and T2 signal in the distal 1 cm of the fourth metatarsal is suspicious for osteomyelitis. Please note that no contrast could be administered given the patient's end-stage renal disease. 2. Signal abnormality versus inhomogeneous fat suppression involving the proximal distal phalanx of the fifth digit. 3. There is subcutaneous edema on the lateral aspect of the foot and adjacent to the distal end of the fourth metatarsal. Damián Cabrera MD Ankle MRI 11/06/17 0000 Signed Impressions: Service Date/Time: Monday, November 06, 2017 12:57 - CONCLUSION: There are no imaging findings to indicate osteomyelitis around the ankle. Please refer to foot MRI report for further description of the foot findings. Damián Cabrera MD Foot X-Ray 11/05/17 0000 Signed Impressions: Service Date/Time: Sunday, November 05, 2017 18:25 - CONCLUSION: 1. Erosions at the fourth metatarsal head suspicious for osteomyelitis. Previous amputations as above. 2. Soft tissue ulcer posterior heel just above the calcaneus. Dmitry Anton MD Objective Remarks GENERAL: AWAKE ALERT AND ORIENTED X3 TALKATIVE AND COOPERATIVE SKIN: Warm and dry. SACRAL DECUB/WOUND -BL DRY SKIN ON TOES -AMPUTATIONS of toes HEAD: Atraumatic. Normocephalic. EYES: Pupils equal and round. No scleral icterus. No injection or drainage. EOMI ENT: No nasal bleeding or discharge. Mucous membranes pink and moist. TONGUE MIDLINE NECK: Trachea midline. No JVD. SUPPLE CARDIOVASCULAR: Regular rate and rhythm. S1, S2 NO S3 OR S4 RESPIRATORY: No accessory muscle use. Clear to auscultation. Breath sounds equal bilaterally. GASTROINTESTINAL: Abdomen soft, non-tender, nondistended. Hepatic and splenic margins not palpable. OBESE MUSCULOSKELETAL: Extremities without clubbing, cyanosis, or edema. No obvious deformities. BL toes amputations NEUROLOGICAL: Awake and alert. No obvious cranial nerve deficits. Motor grossly within normal limits. 4 out of 5 muscle strength in the arms and legs. Normal speech. PSYCHIATRIC: Appropriate mood and affect; insight and judgment normal. Procedures Leonie Naqvi DPM DATE OF OPERATION: 11/08/2017 SURGEON: Leonie Naqvi DPM EATING DISORDER SPECIALIST: None. PREOPERATIVE DIAGNOSES: 1. Right foot 5th digit gangrene. 2. Right foot 4th metatarsal osteomyelitis. 3. Right foot posterior Achilles tendon ulceration, with exposed tendon. POSTOPERATIVE DIAGNOSES: 1. Right foot 5th digit gangrene. 2. Right foot 4th metatarsal osteomyelitis. 3. Right foot posterior Achilles tendon ulceration, with exposed tendon. PROCEDURE PERFORMED: 1. Transmetatarsal amputation performed to right foot. 2. Debridement and irrigation of posterior ankle ulcer, with wound VAC placement. ANESTHESIA: General with local infiltrate, 10 milliliters of Marcaine 0.5% plain. HEMOSTASIS: None. ESTIMATED BLOOD LOSS: Less than 20 milliliters. MATERIALS: 2-0, 3-0 Prolene, Hemovac drain, wound VAC placed to posterior heel. INJECTABLES: None. COMPLICATIONS: None. INDICATIONS FOR PROCEDURE: The patient is a 57-year-old female, previously seen on 09/27/2017. At which time, she underwent a 4th digit amputation. The patient was to followup in office, however, the patient never followed in office and she was seen in the emergency department for leucocytosis of 23,000. The patient presented with necrotic 5th digit, with draining sinus to 4th digit amputation site and right posterior ankle ulceration, with tendon exposed. The patient states she had issues getting into the see myself in clinic. The patient understands all recommendations, alternatives, benefits and complications associated with moving forward with surgical intervention. MRI showed increased signal intensity to 4th metatarsal. Fourth metatarsal with signs of osteomyelitis. We will proceed with planned surgical intervention of right 5th amputation, as the patient has already had amputations of hallux 2nd digit and 4th digits. DESCRIPTION OF PROCEDURE: The patient was brought over to the operating room, placed on the operating room table in a supine position. General anesthesia was then induced. Local infiltrate of 10 milliliters of 0.5% Marcaine plain was infiltrated about the right foot. The right foot was then prepped and draped in the usual sterile fashion. Attention was directed to right forefoot, where gangrenous, desiccated 5th digit was noted, as well as suture still present to incision of 4th digit amputation. [place] incision was then performed, encompassing 5th digit, 3rd digit and 4th interspace. This incision was deepened through skin to subcutaneous tissue with care taken to retrract all vital neurovascular structures. All bleeders were cauterized with electrocautery and Vicryl ties as necessary. The incision was deepened through to bone. Fifth and 3rd digits were transected at metatarsophalangeal joint and passed from the field. The forefoot from the right foot was sent to pathology. Sagittal saw was then utilized to transect metatarsals 3, 4 and 5, after [place] elevator was used to remove periosteum. Proximal clearing margin of 4th metatarsal was sent for pathology and micro. The right foot soft tissue was sent for micro. Samples were sent post lavage. The patient was copiously irrigated with 3 liters of normal saline. Transmetatarsal amputation site was then closed with 2-0, 3-0 Prolene and a Hemovac drain was applied to site. The patient's site was then dressed with Adaptic, 4 x 4s, cast padding and NIRAV. Hemovac was noted to be functioning. Attention was then directed to right posterior ankle, where a 2 x 2 cm ulceration was noted, which probed tendon. This site was debrided of all nonviable tissue with a 15 blade. The site was copiously irrigated. Wound VAC was placed to right posterior ankle. DISPOSITION AND RECOMMENDATIONS: The patient tolerated the procedure and anesthesia well. She was transferred from the OR to PACU with vital signs stable and neurovascular status intact. We will await OR cultures, pull drains postoperative day #2. Anticipate the patient going to jail facility with IV antibiotics and wound VAC. PIERO Garza/GEOFF , 05:51 PM Medications and IVs Current Medications Insulin Human Regular (NovoLIN R INJ) 10 units ONCE ONCE IV PUSH Last administered on 11/05/17at 16:56; Start 11/05/17 at 16:15; Stop 11/05/17 at 16:16 ; Status DC Dextrose (D50w (Vial) Inj) 50 ml ONCE ONCE IV PUSH Last administered on 16:56; Start 11/05/17 at 16:15; Stop 11/05/17 at 16:16; Status DC Calcium Gluconate (Calcium Gluconate Inj) 1 gm ONCE ONCE IV PUSH Last administered on 11/05/17at 16:57; Start 11/05/17 at 16:15; Stop 11/05/17 at 16:16 ; Status DC Vancomycin HCl 1000 mg/Sodium Chloride 250 ml @ 250 mls/hr ONCE ONCE IV Last administered on 11/05/17at 16:56; Start 11/05/17 at 16:15; Stop 11/05/17 at 17:14 ; Status DC Sodium Chloride (NS Flush) 2 ml UNSCH PRN IV FLUSH FLUSH AFTER USING IV ACCESS Last administered on 11/06/17 12:24; Start 11/05/17 at 16:15 Sodium Chloride (NS Flush) 2 ml BID IV FLUSH Last administered on 11/16/17at 08: 04; Start 11/05/17 at 21:00 Naloxone HCl (Narcan Inj) 0.4 mg UNSCH PRN IV PUSH SEE LABEL COMMENTS; Start at 16:15 Dextrose (D50w (Vial) Inj) 50 ml UNSCH PRN IV PUSH HYPOGLYCEMIA-SEE COMMENTS; Start 11/05/17 at 16:15 Glucagon (Glucagon Inj) 1 mg UNSCH PRN OTHER HYPOGLYCEMIA-SEE COMMENTS; Start 11/05/17 at 16:15 Insulin Aspart (NovoLOG SUPPLEMENTAL SCALE) 1 ACHS SLIDING SCALE SQ Last administered on 11/09/17 21:00; Start 11/05/17 at 17:00; Stop 11/12/17 at 10:19; Status DC Morphine Sulfate (Morphine Inj) 2 mg Q3H PRN IV PUSH BREAKTHROUGH PAIN Last administered on 11/15/17 22:20; Start 11/05/17 at 17:30 Aspirin (Ecotrin Ec) 81 mg DAILY PO Last administered on 11/16/17 08:04; Start 11/06/17 at 09:00 Atorvastatin Calcium (Lipitor) 10 mg HS PO Last administered on 11/15/17 22:20 ; Start 11/05/17 at 21:00 Bupropion HCl (Wellbutrin Sr) 150 mg BID PO Last administered on 11/16/17 08:04 ; Start 11/05/17 at 21:00 Calcium Carbonate (Oscal) 2,000 mg Q8HR PO Last administered on 11/16/17 05:56 ; Start 11/05/17 at 22:00 Cyclobenzaprine HCl (Flexeril) 10 mg BID PRN PO MUSCLE SPASM; Start 11/05/17 at 17:30 Gabapentin (Neurontin) 300 mg HS PO Last administered on 11/15/17 22:21; Start 11/05/17 at 21:00 Insulin Aspart Prota 70%/Aspart 30% (NovoLOG MIX 70/ 30 INJ) 8 units BID@08,17 SQ Last administered on 11/10/17 08:00; Start 11/06/17 at 08:00; Stop 11/13/17 at 07:46; Status DC Midodrine (Proamatine) 10 mg DAILY PO Last administered on 11/08/17at 09:25; Start 11/06/17 at 09:00; Stop 11/08/17 at 20:58; Status DC Pantoprazole Sodium (Protonix) 40 mg DAILY PO Last administered on 11/16/17at 08: 04; Start 11/06/17 at 09:00 Patient Own Medication PT OWN MED:COMBIVENT RESPIMA... BID INH ; Start 11/05/17 at 21:00; Status Future Hold Trazodone HCl (Desyrel) 100 mg HS PO Last administered on 11/15/17at 22:21; Start 11/05/17 at 21:00 Sodium Chloride 1,000 ml @ 0 mls/hr Q0M PRN OTHER For Prime & Rinse Back; Start 11/05/17 at 18:17 Heparin Sodium (Porcine) (Heparin Inj) 8,000 units UNSCH PRN IV FLUSH WITH DIALYSIS; Start 11/05/17 at 18:30 Sodium Chloride 1,000 ml @ 200 mls/hr Q5H PRN IV WITH DIALYSIS; Start 11/05/17 at 18:17 Sodium Chloride 1,000 ml @ 0 mls/hr Q0M PRN OTHER WITH DIALYSIS; Start at 18:17 Mannitol (Mannitol Inj) 12.5 gm UNSCH PRN IV WITH DIALYSIS; Start 11/05/17 at 18:30 Albumin Human 100 ml @ 60 mls/hr UNSCH PRN IV WITH DIALYSIS Last administered on 11/16/17at 15:16; Start 11/05/17 at 18:30 Sodium Chloride (NS Flush) 5 ml UNSCH PRN IV FLUSH WITH DIALYSIS; Start at 18:30 Heparin Sodium (Porcine) (Heparin Inj) UNSCH PRN .XX WITH DIALYSIS Last administered on 11/16/17at 15:16; Start 11/05/17 at 18:30 Gentamicin Sulfate (Gentamicin Inj) 20 mg UNSCH PRN OTHER WITH DIALYSIS Last administered on 11/16/17 15:17; Start 11/05/17 at 18:30 Ondansetron HCl (Zofran Inj) 4 mg UNSCH PRN IV PUSH WITH DIALYSIS; Start at 18:30 Acetaminophen (Tylenol) 650 mg UNSCH PRN PO for headach, pain, temp > 101F; Start 11/05/17 at 18:30 Diphenhydramine HCl (Benadryl) 25 mg UNSCH PRN PO for hives/itching/anaphylaxis ; Start 11/05/17 at 18:30 Nitroglycerin (Nitrostat Sl) 0.4 mg UNSCH PRN SL CHEST PAIN Last administered on 11/14/17at 10:49; Start 11/05/17 at 18:30 Clonidine (Catapres) 0.1 mg UNSCH PRN PO for BP > 180/100 X 2 readings; Start 11/05/17 at 18:30 Gelatin (Gelfoam 12 Mm/7 Mm Top) 1 foam UNSCH PRN TOP SEE LABEL COMMENTS; Start 11/05/17 at 18:30 Midodrine (Proamatine) 10 mg ONCE ONCE PO Last administered on 11/05/17at 19:09 ; Start 11/05/17 at 18:45; Stop 11/05/17 at 18:46; Status DC Heparin Sodium (Porcine) (Heparin Inj) 5,000 units Q8HR SQ Last administered on 11/16/17 05:56; Start 11/05/17 at 22:00 Lorazepam (Ativan Inj) 1 mg ONCE ONCE IV PUSH Last administered on 11/06/17at 12:24; Start 11/06/17 at 12:00; Stop 11/06/17 at 12:01; Status DC Acetaminophen/ Hydrocodone Bitart ([place] 5-325 Mg) 1 tab Q4H PRN PO PAIN GREATER THAN 5 Last administered on 11/15/17at 02:24; Start 11/06/17 at 16:45 Nystatin (Mycostatin Powder) 1 applic BID TOPICAL Last administered on 08:05; Start 11/07/17 at 10:00 Lidocaine (L-M-X 4 Cream) 1 applic EVERY OTHER DAY PRN TOPICAL DISLODGEMENT Last administered on 11/07/17 15:43; Start 11/07/17 at 09:30 Silver Sulfadiazine (Silvadene 1% Cream (50 Gm)) 1 applic EVERY OTHER DAY PRN TOPICAL DISLODGEMENT Last administered on 2/28/18at 15:43; Start 11/07/17 at 09: 30 Lactated Ringer's 1,000 ml @ 30 mls/hr Q24H PRN IV SEE LABEL COMMENTS; Start at 05:30; Stop 11/09/17 at 10:36; Status DC Sodium Chloride 500 ml @ 30 mls/hr [id number] PRN IV SEE LABEL COMMENTS Last administered on 11/08/17at 15:17; Start 11/08/17 at 05:30; Stop 11/11/17 at 05:29; Status DC Povidone Iodine (Betadine 5% Antisepsis Kit) 1 applic ELECTRIC INSTALLER PRN EACH NARE SEE LABEL COMMENTS; Start 11/08/17 at 05:30; Stop 11/11/17 at 05:29; Status DC Chlorhexidine Gluconate (Chlorhexidine 2% Cloth) 3 pack ELECTRIC INSTALLER PRN TOPICAL SEE LABEL COMMENTS; Start 11/08/17 at 05:30; Stop 11/11/17 at 05:29; Status DC Bupivacaine HCl (Marcaine Pf 0.5% Inj) 30 ml STK-MED ONCE .ROUTE Last administered on 11/08/17at 16:24; Start 11/08/17 at 12:42; Stop 11/08/17 at 12:43; Status DC Fentanyl Citrate (fentaNYL INJ) 100 mcg STK-MED ONCE .ROUTE ; Start 11/08/17 at 14:14; Stop 11/08/17 at 14:15; Status DC Midazolam HCl (Versed Inj) 2 mg STK-MED ONCE .ROUTE ; Start 11/08/17 at 14:14; Stop 11/08/17 at 14:15; Status DC Cefazolin Sodium (Ancef Inj) 1,000 mg STK-MED ONCE .ROUTE Last administered on 11/08/17at 16:22; Start 11/08/17 at 16:25; Stop 11/08/17 at 16:26; Status DC Phenylephrine HCl (Neosynephrine Inj) 40 mg STK-MED ONCE .ROUTE ; Start 11/08/17 at 18:29; Stop 11/08/17 at 18:30; Status DC Dextrose 500 ml @ As Directed STK-MED ONCE .ROUTE ; Start 11/08/17 at 18:29; Stop 11/08/17 at 18:30; Status DC Epoetin Velasquez (Epogen Inj) 10,000 units UNSCH PRN IV PUSH WITH DIALYSIS Last administered on 11/09/17at 10:23; Start 11/08/17 at 19:00; Stop 11/09/17 at 10:41; Status DC Miscellaneous Information ALL NURSING DEPARTME... UNSCH PRN .XX SEE LABEL COMMENTS; Start 11/08/17 at 18:10; Stop 11/09/17 at 18:09; Status DC Phenylephrine HCl 40 mg/Dextrose 500 ml @ 30 mls/hr TITRATE PRN IV Blood Pressure Management Last administered on 11/10/17at 09:07; Start 11/08/17 at 19:00 ; Stop 11/10/17 at 15:41; Status DC Albuterol Sulfate (*ALBUTEROL NEB PERIprocedure ONLY) 2.5 mg STK-MED ONCE NEB Last administered on 11/08/17at 19:35; Start 11/08/17 at 19:34; Stop 11/08/17 at 19: 35; Status DC Midodrine (Proamatine) 10 mg Q8HR PO Last administered on 11/15/17at 06:17; Start 11/08/17 at 22:00 Miscellaneous Information Patient in critical care unit? Ass... [id number] .XX Last administered on 11/08/17at 22:15; Start 11/08/17 at 22:15 Chlorhexidine Gluconate (Chlorhexidine 2% Cloth) 3 pack DAILY@04 TOPICAL Last administered on 11/13/17at 04:00; Start 11/09/17 at 04:00; Stop 11/13/17 at 04:01; Status DC Chlorhexidine Gluconate (Chlorhexidine 2% Cloth) 3 pack UNSCH PRN TOPICAL HYGIENIC CARE; Start 11/08/17 at 22:15; Stop 11/13/17 at 22:01; Status DC Epoetin Velasquez (Epogen Inj) 4,000 units UNSCH PRN IV PUSH WITH DIALYSIS Last administered on 11/14/17at 14:29; Start 11/09/17 at 10:45 Phenylephrine HCl 40 mg/Dextrose 500 ml @ 30 mls/hr TITRATE PRN IV Blood Pressure Management Last administered on 11/13/17at 00:25; Start 11/10/17 at 15:45 ; Stop 11/13/17 at 07:46; Status DC Nystatin (Mycostatin Cream) 1 applic Q6HR TOPICAL Last administered on at 00:00; Start 11/11/17 at 12:00 Iohexol (Omnipaque 350 Inj) 100 ml STK-MED ONCE IVCONTRAST Last administered on 11/11/17at 23:50; Start 11/11/17 at 23:50; Stop 11/12/17 at 00:13; Status DC Insulin Aspart (NovoLOG SUPPLEMENTAL SCALE) 1 Q6H SQ Last administered on at 22:40; Start 11/12/17 at 15:00 Hydrocortisone Sodium Succinate (SoluCORTEF INJ) 50 mg Q6HR IV PUSH Last administered on 11/15/17at 17:09; Start 11/12/17 at 13:00; Stop 11/16/17 at 01:14; Status DC Lidocaine HCl (Xylocaine-Mpf 1% Inj) 5 ml STK-MED ONCE OTHER ; Start 11/08/17 at 12:00; Stop 11/12/17 at 14:50; Status DC Phenylephrine HCl (Neosynephrine/ NS 1000 Mcg/10ml Syr) 2,000 mcg STK-MED ONCE IV ; Start 11/08/17 at 12:00; Stop 11/12/17 at 14:50; Status DC Phenylephrine HCl (Neosynephrine Inj) 10 mg STK-MED ONCE IV ; Start 11/08/17 at 12:00; Stop 11/12/17 at 14:50; Status DC Ephedrine Sulfate (ePHEDrine/NS 25 MG/5 ML SYR) 25 mg STK-MED ONCE IV ; Start at 12:00; Stop 11/12/17 at 14:50; Status DC Ondansetron HCl (Zofran Inj) 4 mg STK-MED ONCE IV ; Start 11/08/17 at 12:00; Stop 11/12/17 at 14:50; Status DC Cefazolin Sodium (Ancef Inj) 2,000 mg STK-MED ONCE IV Last administered on at 12:00; Start 11/08/17 at 12:00; Stop 11/12/17 at 14:50; Status DC Propofol (Diprivan 200 Mg/20 ml Inj) 200 mg STK-MED ONCE IV ; Start 11/08/17 at 12:00; Stop 11/12/17 at 14:50; Status DC Vancomycin HCl 1000 mg/Sodium Chloride 250 ml @ 250 mls/hr ONCE ONCE IV Last administered on 11/12/17at 20:44; Start 11/12/17 at 19:30; Stop 11/12/17 at 20:29; Status DC Cefepime HCl 1000 mg/Sodium Chloride 100 ml @ 200 mls/hr Q24H IV Last administered on 11/15/17at 22:20; Start 11/12/17 at 20:00 Micafungin Sodium 150 mg/Sodium Chloride 100 ml @ 100 mls/hr Q24H IV Last administered on 11/15/17at 22:40; Start 11/12/17 at 21:00 A/P Problem List: (1) Leukocytosis ICD Code: D72.829 - Leukocytosis Status: Acute (2) Sacral ulcer ICD Code: L98.429 - Non-pressure chronic ulcer of back with unspecified severity (3) Diabetes mellitus ICD Code: E11.9 - Type 2 diabetes mellitus without complications (4) ESRD on hemodialysis ICD Code: N18.6 - End stage renal disease; Z99.2 - Dependence on renal dialysis Status: Chronic (5) Status post amputation of toe of right foot ICD Code: Z89.421 - Acquired absence of other right toe(s) Assessment and Plan Assessment and Plan Sepsis - present on admission Resp Insuff--improved Right foot osteomyelitis-status post amputation Status post urgent transmetatarsal amputation 11/08 Septic shock End-stage renal disease on intermittent hemodialysis sacral decubiti with possible cellulitis Diabetes with hyperglycemia. Resp insufficiency resolved Continue supplemental O2 to keep an o2 sat more than 92%. Antibiotics per ID - recommends IV Vancomycin and discontinuation of Cefepime and Micafungin if repeat blood cultures negative. IV Vancomycin enD date is 11/16. septic shock resolved after IV fluids and neosynephrine. Patient's bp now slightly elevated. Dc solucortef. Hold Midodrine. on HD as per nephrology PT recommends home with home health PT. Continue SSI with insulin. DC IV steroids - blood sugars should improve. DVT prophylaxis - on heparin SQ Hopefully home the next few days A.m. labs Discharge Planning CONTINUE CURRENT WOUND CARE WILL NEED home health care at home Problem Qualifiers (1) Leukocytosis: Qualified Codes: D72.829 - Elevated white blood cell count, unspecified (2) Diabetes mellitus: Ronn Ag DO Nov 16, 2017 17:39
[2017-11-16] MEDS: ACETAMINOPHEN/HYDROcodone 325 MG/5 MG TAB PO PRN (19:01)
[2017-11-16] MEDS: traZODone HCL 100 MG TAB PO SCH (22:11)
[2017-11-16] MEDS: ATORVASTATIN 10 MG TAB PO SCH (22:12)
[2017-11-16] MEDS: GABAPENTIN 300 MG CAP PO SCH (22:12)
[2017-11-16] MEDS: LIDOCAINE 4% CREAM 5 GM TUBE TOPICAL PRN (22:13)
[2017-11-16] MEDS: MORPHINE SULFATE 2 MG/ML INJ IV PUSH PRN (22:15)
[2017-11-16] MEDS: CEFEPIME INJ 1,000 MG in SODIUM CHLORIDE 0.9% INJ 100 ML IV SCH (22:16)
[2017-11-17] VITALS: BP 105/59; PULSE 72; PULSE 73; RESP 20; TEMP 98; O2SAT 100
[2017-11-17] MEDS: MICAFUNGIN INJ 150 MG in SODIUM CHLORIDE 0.9% INJ 100 ML IV SCH ×2 (00:26→21:26)
[2017-11-17] MEDS: INSULIN ASPART SUPPLEMENTAL SCALE SQ SCH ×4 (03:00→21:00)
[2017-11-17 04:00] VITALS: BP 91/54; PULSE 68; PULSE 73; RESP 20; TEMP 98.1; O2SAT 100
[2017-11-17] MEDS: ACETAMINOPHEN/HYDROcodone 325 MG/5 MG TAB PO PRN ×3 (04:04→21:28)
[2017-11-17] MEDS: CALCIUM CARBONATE 1.25 GM (CA 500 MG) TAB PO SCH ×3 (06:03→21:27)
[2017-11-17] MEDS: MIDODRINE 5 MG TAB PO SCH ×3 (06:03→21:26)
[2017-11-17] MEDS: HEPARIN SODIUM - SQ 10,000 UNITS/ML VIAL SQ SCH ×3 (06:04→21:27)
[2017-11-17] MEDS: NYSTATIN 100,000 UNIT/GM CREAM 15 GM TOPICAL SCH ×3 (06:04→18:25)
[2017-11-17] MEDS: MORPHINE SULFATE 2 MG/ML INJ IV PUSH PRN ×2 (06:04→23:32)
[2017-11-17 06:34] LABS: BASOPHIL % 0.4 % (0.0-2.0); EOSINOPHIL # 0.5 TH/MM3 (0-0.4); EOSINOPHIL % 5.3 % (0.0-4.0); HEMATOCRIT 39.8 % (35.0-46.0); HEMOGLOBIN 12.9 GM/DL (11.6-15.3); LYMPH % 14.4 % (9.0-44.0); LYMPHOCYTE # 1.3 TH/MM3 (1.0-4.8); MEAN CELL VOLUME 90.2 FL (80.0-100.0); MEAN CORPUSCULAR HEMOGLOBIN 29.1 PG (27.0-34.0); MEAN CORPUSCULAR HGB CONC 32.3 % (32.0-36.0); MEAN PLATELET VOLUME 6.9 FL (7.0-11.0); MONO % 10.7 % (0.0-8.0); MONOCYTE # 0.9 TH/MM3 (0-0.9); NEUT % 69.2 % (16.0-70.0); PLATELET COUNT 163 TH/MM3 (150-450); RED BLOOD COUNT 4.42 MIL/MM3 (4.00-5.30); RED CELL DISTRIBUTION WIDTH 17.9 % (11.6-17.2); WHITE BLOOD COUNT 8.7 TH/MM3 (4.0-11.0)
[2017-11-17 07:22] LABS: ALBUMIN 3.4 GM/DL (3.4-5.0); ALKALINE PHOSPHATASE 70 U/L (45-117); ALT (GPT) 10 U/L (10-53); AST (GOT) 15 U/L (15-37); BICARBONATE 28.8 MEQ/L (21.0-32.0); BLOOD UREA NITROGEN 40 MG/DL (7-18); CALCIUM 8.4 MG/DL (8.5-10.1); CHLORIDE 97 MEQ/L (98-107); CREATININE 5.78 MG/DL (0.50-1.00); GLOMERULAR FILTRATION RATE 9 ML/MIN (>89); GLUCOSE,RANDOM 74 MG/DL (74-106); MAGNESIUM 2.1 MG/DL (1.5-2.5); PHOSPHORUS 2.6 MG/DL (2.5-4.9); SODIUM (NA) 134 MEQ/L (136-145); TOTAL BILIRUBIN ADULT 0.4 MG/DL (0.2-1.0); TOTAL PROTEIN 8.3 GM/DL (6.4-8.2)
[2017-11-17 08:00] VITALS: BP 97/53; PULSE 70; PULSE 78; RESP 18; TEMP 97.5; O2SAT 95
--- NOTE | 2017-11-17 10:51 | HHI.PR ---
Subjective Remarks Follow up sepsis, osteomyelitis, ESRD. Patient states "I feel great today". No complaints at this time. Denies chest pain, dyspnea, nausea, vomiting. Objective Vitals Vital Signs Date Time Temp Pulse Resp B/P (MAP) Pulse Ox O2 Delivery O2 Flow Rate FiO2 11/17/17 08:00 97.5 70 18 97/53 (68) 95 11/17/17 05:41 Nasal Cannula 3.00 11/17/17 04:00 68 11/17/17 04:00 98.1 73 20 91/54 (66) 100 11/17/17 00:00 72 11/17/17 00:00 98.0 73 20 105/59 (74) 100 11/17/17 00:00 Nasal Cannula 1.00 11/16/17 20:00 98.3 74 20 119/63 (81) 100 11/16/17 19:53 77 11/16/17 19:00 1.00 11/16/17 12:00 98.0 70 17 120/63 (82) 98 11/16/17 12:00 70 I/O 11/16/17 11/16/17 11/16/17 11/17/17 11/17/17 11/17/17 07:00 15:00 23:00 07:00 15:00 23:00 Intake Total 400 ml 120 ml 100 ml 220 ml Output Total 0 ml Balance 400 ml 120 ml 100 ml 220 ml Intake Oral 120 ml 120 ml IV Total 400 ml 100 ml 100 ml Output Urine Total 0 ml # Voids 0 # Bowel Movements 0 Result Diagram: 11/17/17 0547 11/17/17 0547 Imaging Last Impressions Aorta w/Runoff CTA 11/10/17 0000 Signed Impressions: Service Date/Time: Saturday, November 11, 2017 23:27 - CONCLUSION: 1. Patient does not appear to have a vascular etiology for current clinical symptoms. Despite fairly significant scattered atherosclerotic calcification, inflow and outflow is present bilaterally. The anterior tibials are diminutive distally and the peroneals continue as the anterior tibials at the ankle. 2. Small bilateral pleural effusions with concomitant atelectatic changes. 3. Extensive varicosities in the subcutaneous tissues of the abdomen and flank. This may be due to stenosis or occlusion of the IVC. Patient does have an indwelling dialysis type catheter traversing the entire length of the IVC. 4. Mottled and somewhat sclerotic appearance of the entire axial skeleton. This was present previously and is basically stable. Findings may be due to altered calcium metabolism associated with long-term renal insufficiency/failure. 5. Small umbilical hernia which only contains fat. Ministerio Wei MD Foot MRI 11/06/17 0000 Signed Impressions: Service Date/Time: Monday, November 06, 2017 12:57 - CONCLUSION: 1. The combination of radiographic findings and the abnormal T1 and T2 signal in the distal 1 cm of the fourth metatarsal is suspicious for osteomyelitis. Please note that no contrast could be administered given the patient's end-stage renal disease. 2. Signal abnormality versus inhomogeneous fat suppression involving the proximal distal phalanx of the fifth digit. 3. There is subcutaneous edema on the lateral aspect of the foot and adjacent to the distal end of the fourth metatarsal. Damián Cabrera MD Ankle MRI 11/06/17 0000 Signed Impressions: Service Date/Time: Monday, November 06, 2017 12:57 - CONCLUSION: There are no imaging findings to indicate osteomyelitis around the ankle. Please refer to foot MRI report for further description of the foot findings. Damián Cabrera MD Foot X-Ray 11/05/17 0000 Signed Impressions: Service Date/Time: Sunday, November 05, 2017 18:25 - CONCLUSION: 1. Erosions at the fourth metatarsal head suspicious for osteomyelitis. Previous amputations as above. 2. Soft tissue ulcer posterior heel just above the calcaneus. Dmitry Anton MD Objective Remarks General: Morbidly obese female in no acute distress. Heart: Regular rate and rhythm. No murmur. Lungs: Clear to auscultation bilaterally. No wheezes, rales, or rhonchi. Breathing is nonlabored. Abdomen: Soft, nontender, nondistended. Extremities: No lower extremity edema. Wounds are bandaged. Psych: Alert and oriented. Neuro: Speech is normal. No obvious cranial nerve deficits. Procedures 11/08/2017 Transmetatarsal amputation performed to right foot; Debridement and irrigation of posterior ankle ulcer with wound VAC placement. Vascular Central Line Catheter: No A/P Problem List: (1) Leukocytosis ICD Code: D72.829 - Leukocytosis Status: Acute (2) Sacral ulcer ICD Code: L98.429 - Non-pressure chronic ulcer of back with unspecified severity (3) Diabetes mellitus ICD Code: E11.9 - Type 2 diabetes mellitus without complications (4) ESRD on hemodialysis ICD Code: N18.6 - End stage renal disease; Z99.2 - Dependence on renal dialysis Status: Chronic (5) Status post amputation of toe of right foot ICD Code: Z89.421 - Acquired absence of other right toe(s) Assessment and Plan 1. Sepsis, present on admission: Resolved. Source is osteomyelitis of the right foot. 2. Right foot osteomyelitis: Status post transmetatarsal amputation on 11/08/17. Continue cefepime, micafungin until cultures are negative per infectious disease. 3. ESRD: Hemodialysis per nephrology. 4. Sacral decubitus ulcers: Continue wound care. 5. Diabetes mellitus: Monitor Accu-Cheks and cover with sliding scale insulin. 6. DVT prophylaxis: Heparin. Discharge Planning Anticipate discharge home with home health care soon, when cleared by infectious disease. Problem Qualifiers (1) Leukocytosis: Qualified Codes: D72.829 - Elevated white blood cell count, unspecified (2) Diabetes mellitus: Rob Gauthier MD Nov 17, 2017 10:51
--- NOTE | 2017-11-17 11:10 | HHI.NPPN ---
Subjective History of Present Illness 57-year-old diabetes, right foot infection, sacral decubitus, ESRD Additional Remarks Resting comfortably in good spirits. No SOB. (Tami Owens) Review of Systems General Constitutional: Fatigue (Tami Owens) Respiratory Respiratory Remarks Denies any SOB (Tami Owens) Cardiovascular Cardiac Remarks No CP (Tami Owens) Gastrointestinal GI Remarks No abdominal pain (Tami Owens) Objective Data Data Vital Signs Date Time Temp Pulse Resp B/P (MAP) Pulse Ox O2 Delivery O2 Flow Rate FiO2 11/17/17 08:00 97.5 70 18 97/53 (68) 95 11/17/17 05:41 Nasal Cannula 3.00 11/17/17 04:00 68 11/17/17 04:00 98.1 73 20 91/54 (66) 100 11/17/17 00:00 72 11/17/17 00:00 98.0 73 20 105/59 (74) 100 11/17/17 00:00 Nasal Cannula 1.00 11/16/17 20:00 98.3 74 20 119/63 (81) 100 11/16/17 19:53 77 11/16/17 19:00 1.00 11/16/17 12:00 98.0 70 17 120/63 (82) 98 11/16/17 12:00 70 (Tami Owens) -: 11/17/17 0547 11/17/17 0547 Tubes & Lines: Vas-Cath (Tami Owens) Physical Exam General Appearance: Well Developed, Obese (Tami Owens) Neck Neck Exam: Neck Supple (Tami Owens) Pulmonary Resp Exam: Clear Bilaterally, Breath Sounds Equal (Tami Owens) Cardiology CV Exam: Regular, Normal Sinus Rhythm (Tami Owens) Gastrointestinal/Abdomen GI Exam: Soft, Bowel Sounds Present (Tami Owens) Integumentary Skin Exam: Lesion(s) (Tami Owens) Extremeties Extremities Exam: Trace Edema (Tami Owens) Assessment/Plan Problem List: (1) ESRD (end stage renal disease) ICD Codes: N18.6 - End-stage renal disease Status: Chronic Plan: Patient is on hemodialysis Follow-up Sunday, Sunday and Sunday schedule Vas cath right groin s/p Rt foot TMA rt heel surgery Osteomyelitis antibiotics per ID HD yesterday 5 L off (2) Sacral ulcer ICD Codes: L98.429 - Non-pressure chronic ulcer of back with unspecified severity Plan: Patient is getting vancomycin (3) Diabetes mellitus ICD Codes: E11.9 - Type 2 diabetes mellitus without complications Plan: Continue to monitor, maintain blood glucose between 140 and 180. (4) Hypotension ICD Codes: I95.9 - Hypotension Status: Resolved Plan: Patient takes midodrine (5) Morbid obesity ICD Codes: E66.01 - Morbid (severe) obesity due to excess calories Status: Chronic (Tami Owens) Problem List: (1) ESRD (end stage renal disease) ICD Codes: N18.6 - End-stage renal disease Status: Chronic Plan: Patient is on hemodialysis Follow-up Sunday, Sunday and Sunday schedule Vas cath right groin s/p Rt foot TMA rt heel surgery Osteomyelitis antibiotics per ID HD yesterday 5 L off. Patient seen and examine, agree with above. Continue HD as per schedule. (2) Sacral ulcer ICD Codes: L98.429 - Non-pressure chronic ulcer of back with unspecified severity Plan: Patient is getting vancomycin (3) Diabetes mellitus ICD Codes: E11.9 - Type 2 diabetes mellitus without complications Plan: Continue to monitor, maintain blood glucose between 140 and 180. (4) Hypotension ICD Codes: I95.9 - Hypotension Status: Resolved Plan: Patient takes midodrine (5) Morbid obesity ICD Codes: E66.01 - Morbid (severe) obesity due to excess calories Status: Chronic (Lucio Winston MD) Problem Qualifiers (1) Diabetes mellitus: Tami Owens Nov 17, 2017 11:10 Lucio Winston MD Nov 17, 2017 16:18
[2017-11-17] MEDS: buPROPion HCL 150 MG SUSTAINED RELEASE TAB PO SCH ×2 (11:21→21:27)
[2017-11-17] MEDS: PANTOPRAZOLE SOD 40 MG DELAYED RELEASE TAB PO SCH (11:21)
[2017-11-17] MEDS: ASPIRIN EC 81 MG TABEC PO SCH (11:21)
[2017-11-17] MEDS: SODIUM CHLORIDE 0.9% FLUSH 10 ML FLUSH IV FLUSH SCH ×2 (11:21→21:00)
[2017-11-17] MEDS: NYSTATIN 100,000 U/GM PWD 15 GM BTL TOPICAL SCH ×2 (11:23→21:00)
[2017-11-17 12:00] VITALS: BP 89/52; PULSE 70; PULSE 72; RESP 18; TEMP 98.7; O2SAT 100
[2017-11-17 16:00] VITALS: PULSE 69
[2017-11-17 20:00] VITALS: BP 90/42; PULSE 84; PULSE 90; RESP 18; TEMP 98.6; O2SAT 97
[2017-11-17] MEDS: CEFEPIME INJ 1,000 MG in SODIUM CHLORIDE 0.9% INJ 100 ML IV SCH (21:25)
[2017-11-17] MEDS: ATORVASTATIN 10 MG TAB PO SCH (21:27)
[2017-11-17] MEDS: GABAPENTIN 300 MG CAP PO SCH (21:27)
[2017-11-17] MEDS: traZODone HCL 100 MG TAB PO SCH (21:28)
[2017-11-18] VITALS (7 sets, daily range): BP systolic 90–119; BP diastolic 54–57; PULSE 70–84; RESP 16–21; TEMP 97.1–98.9; O2SAT 91–100
[2017-11-18] MEDS: INSULIN ASPART SUPPLEMENTAL SCALE SQ SCH ×4 (03:00→21:00)
[2017-11-18] MEDS: HEPARIN SODIUM - SQ 10,000 UNITS/ML VIAL SQ SCH ×3 (06:01→21:24)
[2017-11-18] MEDS: MIDODRINE 5 MG TAB PO SCH ×3 (06:02→21:24)
[2017-11-18] MEDS: ACETAMINOPHEN/HYDROcodone 325 MG/5 MG TAB PO PRN ×2 (06:02→10:16)
[2017-11-18] MEDS: CALCIUM CARBONATE 1.25 GM (CA 500 MG) TAB PO SCH ×3 (06:02→21:25)
--- NOTE | 2017-11-18 09:35 | HHI.PR ---
Subjective Remarks Follow up sepsis, osteomyelitis, ESRD. The patient has no complaints at this time. Denies chest pain, dyspnea. She reports episodes of "jumping", which she describes as a spasm throughout her body that happens intermittently. These episodes started this morning. Objective Vitals Vital Signs Date Time Temp Pulse Resp B/P (MAP) Pulse Ox O2 Delivery O2 Flow Rate FiO2 11/18/17 08:00 97.4 77 16 119/57 (77) 97 11/18/17 04:00 97.6 71 19 96/54 (68) 91 11/18/17 04:00 Nasal Cannula 1.00 11/18/17 04:00 70 11/18/17 00:00 98.9 75 19 98/56 (70) 98 11/18/17 00:00 Nasal Cannula 1.00 11/18/17 00:00 71 11/17/17 22:33 Nasal Cannula 3.00 11/17/17 20:00 90 11/17/17 20:00 98.6 84 18 90/42 (58) 97 11/17/17 20:00 Nasal Cannula 1.00 11/17/17 16:00 Nasal Cannula 1.00 11/17/17 16:00 69 11/17/17 14:02 3.00 11/17/17 12:00 98.7 72 18 89/52 (64) 100 11/17/17 12:00 Nasal Cannula 1.00 11/17/17 12:00 70 I/O 11/17/17 11/17/17 11/17/17 11/18/17 11/18/17 11/18/17 07:00 15:00 23:00 07:00 15:00 23:00 Intake Total 220 ml 200 ml Balance 220 ml 200 ml Intake Oral 120 ml IV Total 100 ml 200 ml # Voids 0 Result Diagram: 11/17/17 0547 11/17/17 0547 Imaging Last Impressions Aorta w/Runoff CTA 11/10/17 0000 Signed Impressions: Service Date/Time: Saturday, November 11, 2017 23:27 - CONCLUSION: 1. Patient does not appear to have a vascular etiology for current clinical symptoms. Despite fairly significant scattered atherosclerotic calcification, inflow and outflow is present bilaterally. The anterior tibials are diminutive distally and the peroneals continue as the anterior tibials at the ankle. 2. Small bilateral pleural effusions with concomitant atelectatic changes. 3. Extensive varicosities in the subcutaneous tissues of the abdomen and flank. This may be due to stenosis or occlusion of the IVC. Patient does have an indwelling dialysis type catheter traversing the entire length of the IVC. 4. Mottled and somewhat sclerotic appearance of the entire axial skeleton. This was present previously and is basically stable. Findings may be due to altered calcium metabolism associated with long-term renal insufficiency/failure. 5. Small umbilical hernia which only contains fat. Ministerio Wei MD Foot MRI 11/06/17 0000 Signed Impressions: Service Date/Time: Monday, November 06, 2017 12:57 - CONCLUSION: 1. The combination of radiographic findings and the abnormal T1 and T2 signal in the distal 1 cm of the fourth metatarsal is suspicious for osteomyelitis. Please note that no contrast could be administered given the patient's end-stage renal disease. 2. Signal abnormality versus inhomogeneous fat suppression involving the proximal distal phalanx of the fifth digit. 3. There is subcutaneous edema on the lateral aspect of the foot and adjacent to the distal end of the fourth metatarsal. Damián Cabrera MD Ankle MRI 11/06/17 0000 Signed Impressions: Service Date/Time: Monday, November 06, 2017 12:57 - CONCLUSION: There are no imaging findings to indicate osteomyelitis around the ankle. Please refer to foot MRI report for further description of the foot findings. Damián Cabrera MD Foot X-Ray 11/05/17 0000 Signed Impressions: Service Date/Time: Sunday, November 05, 2017 18:25 - CONCLUSION: 1. Erosions at the fourth metatarsal head suspicious for osteomyelitis. Previous amputations as above. 2. Soft tissue ulcer posterior heel just above the calcaneus. Dmitry Anton MD Objective Remarks General: Morbidly obese female in no acute distress. Heart: Regular rate and rhythm. No murmur. Lungs: Clear to auscultation bilaterally. No wheezes, rales, or rhonchi. Breathing is nonlabored. Abdomen: Soft, nontender, nondistended. Extremities: No lower extremity edema. Wounds are bandaged. Psych: Alert and oriented. Neuro: Speech is normal. No obvious cranial nerve deficits. Procedures 11/08/2017 Transmetatarsal amputation performed to right foot; Debridement and irrigation of posterior ankle ulcer with wound VAC placement. Urinary Catheter: No Vascular Central Line Catheter: No A/P Problem List: (1) Leukocytosis ICD Code: D72.829 - Leukocytosis Status: Acute (2) Sacral ulcer ICD Code: L98.429 - Non-pressure chronic ulcer of back with unspecified severity (3) Diabetes mellitus ICD Code: E11.9 - Type 2 diabetes mellitus without complications (4) ESRD on hemodialysis ICD Code: N18.6 - End stage renal disease; Z99.2 - Dependence on renal dialysis Status: Chronic (5) Status post amputation of toe of right foot ICD Code: Z89.421 - Acquired absence of other right toe(s) Assessment and Plan 11/18/17: No change. Awaiting cultures and infectious disease recommendations. 1. Sepsis, present on admission: Resolved. Source is osteomyelitis of the right foot. 2. Right foot osteomyelitis: Status post transmetatarsal amputation on 11/08/17. Continue cefepime, micafungin until cultures are negative per infectious disease. 3. ESRD: Hemodialysis per nephrology. 4. Sacral decubitus ulcers: Continue wound care. 5. Diabetes mellitus: Monitor Accu-Cheks and cover with sliding scale insulin. 6. DVT prophylaxis: Heparin. Discharge Planning Anticipate discharge home with home health care soon, when cleared by infectious disease. Problem Qualifiers (1) Leukocytosis: Qualified Codes: D72.829 - Elevated white blood cell count, unspecified (2) Diabetes mellitus: Rob Gauthier MD Nov 18, 2017 09:35
[2017-11-18] MEDS: buPROPion HCL 150 MG SUSTAINED RELEASE TAB PO SCH ×2 (10:16→21:24)
[2017-11-18] MEDS: ASPIRIN EC 81 MG TABEC PO SCH (10:16)
[2017-11-18] MEDS: PANTOPRAZOLE SOD 40 MG DELAYED RELEASE TAB PO SCH (10:16)
[2017-11-18] MEDS: SODIUM CHLORIDE 0.9% FLUSH 10 ML FLUSH IV FLUSH SCH ×2 (10:17→21:00)
[2017-11-18] MEDS: NYSTATIN 100,000 U/GM PWD 15 GM BTL TOPICAL SCH ×2 (10:19→21:00)
--- NOTE | 2017-11-18 10:19 | HHI.NPPN ---
Subjective Renal Failure: End Stage Renal Disease History of Present Illness 57-year-old diabetes, right foot infection, sacral decubitus, ESRD Additional Remarks Resting comfortably in good spirits. No complaints or problems reported (Tami Owens) Review of Systems Respiratory Respiratory Remarks Denies any SOB (Tami Owens) Cardiovascular Cardiac Remarks No CP (Tami Owens) Gastrointestinal GI Remarks No abdominal pain (Tami Owens) Objective Data Data Vital Signs Date Time Temp Pulse Resp B/P (MAP) Pulse Ox O2 Delivery O2 Flow Rate FiO2 11/18/17 08:00 97.4 77 16 119/57 (77) 97 11/18/17 04:00 97.6 71 19 96/54 (68) 91 11/18/17 04:00 Nasal Cannula 1.00 11/18/17 04:00 70 11/18/17 00:00 98.9 75 19 98/56 (70) 98 11/18/17 00:00 Nasal Cannula 1.00 11/18/17 00:00 71 11/17/17 22:33 Nasal Cannula 3.00 11/17/17 20:00 90 11/17/17 20:00 98.6 84 18 90/42 (58) 97 11/17/17 20:00 Nasal Cannula 1.00 11/17/17 16:00 Nasal Cannula 1.00 11/17/17 16:00 69 11/17/17 14:02 3.00 11/17/17 12:00 98.7 72 18 89/52 (64) 100 11/17/17 12:00 Nasal Cannula 1.00 11/17/17 12:00 70 (Tami Owens) -: 11/17/17 0547 11/17/17 0547 Tubes & Lines: Vas-Cath Tubes & Lines Comment Right groin (Tami Owens) Physical Exam General Appearance: Well Developed, Obese (Tami Owens) Neck Neck Exam: Neck Supple (Tami Owens) Pulmonary Resp Exam: Clear Bilaterally, Breath Sounds Equal (Tami Owens) Cardiology CV Exam: Regular, Normal Sinus Rhythm (Tami Owens) Gastrointestinal/Abdomen GI Exam: Soft, Bowel Sounds Present (Tami Owens) Integumentary Skin Exam: Lesion(s) (Tami Owens) Extremeties Extremities Exam: Trace Edema (Tami Owens) Assessment/Plan Problem List: (1) ESRD (end stage renal disease) ICD Codes: N18.6 - End-stage renal disease Status: Chronic Plan: Patient is on hemodialysis Follow-up Sunday, Sunday and Sunday schedule Vas cath right groin s/p Rt foot TMA rt heel surgery Osteomyelitis antibiotics per ID Dialysis planned for tomorrow (2) Sacral ulcer ICD Codes: L98.429 - Non-pressure chronic ulcer of back with unspecified severity Plan: Patient is getting vancomycin (3) Diabetes mellitus ICD Codes: E11.9 - Type 2 diabetes mellitus without complications Plan: Continue to monitor, maintain blood glucose between 140 and 180. (4) Hypotension ICD Codes: I95.9 - Hypotension Status: Resolved Plan: Patient takes midodrine TID (5) Morbid obesity ICD Codes: E66.01 - Morbid (severe) obesity due to excess calories Status: Chronic (Tami Owens) Problem List: (1) ESRD (end stage renal disease) ICD Codes: N18.6 - End-stage renal disease Status: Chronic Plan: Patient is on hemodialysis Follow-up Sunday, Sunday and Sunday schedule Vas cath right groin s/p Rt foot TMA rt heel surgery Osteomyelitis antibiotics per ID Dialysis planned for tomorrow. Patient seen and examined, agree with above. (2) Sacral ulcer ICD Codes: L98.429 - Non-pressure chronic ulcer of back with unspecified severity Plan: Patient is getting vancomycin (3) Diabetes mellitus ICD Codes: E11.9 - Type 2 diabetes mellitus without complications Plan: Continue to monitor, maintain blood glucose between 140 and 180. (4) Hypotension ICD Codes: I95.9 - Hypotension Status: Resolved Plan: Patient takes midodrine TID (5) Morbid obesity ICD Codes: E66.01 - Morbid (severe) obesity due to excess calories Status: Chronic (Lucio Winston MD) Problem Qualifiers (1) Diabetes mellitus: Tami Owens Nov 18, 2017 10:19 Lucio Winston MD Nov 18, 2017 22:46
[2017-11-18] MEDS: NYSTATIN 100,000 UNIT/GM CREAM 15 GM TOPICAL SCH ×5 (14:01→22:51)
[2017-11-18] MEDS: CYCLOBENZAPRINE HCL 10 MG TAB PO PRN (19:19)
[2017-11-18] MEDS: CEFEPIME INJ 1,000 MG in SODIUM CHLORIDE 0.9% INJ 100 ML IV SCH (21:25)
[2017-11-18] MEDS: GABAPENTIN 300 MG CAP PO SCH (21:25)
[2017-11-18] MEDS: traZODone HCL 100 MG TAB PO SCH (21:26)
[2017-11-18] MEDS: ATORVASTATIN 10 MG TAB PO SCH (21:26)
[2017-11-18] MEDS: MICAFUNGIN INJ 150 MG in SODIUM CHLORIDE 0.9% INJ 100 ML IV SCH (22:15)
[2017-11-19] VITALS: BP 97/34; PULSE 77; PULSE 78; RESP 18; TEMP 97.9; O2SAT 97
[2017-11-19] MEDS: INSULIN ASPART SUPPLEMENTAL SCALE SQ SCH ×3 (01:52→15:00)
[2017-11-19 04:00] VITALS: PULSE 74
[2017-11-19] MEDS: CYCLOBENZAPRINE HCL 10 MG TAB PO PRN (05:33)
[2017-11-19] MEDS: NYSTATIN 100,000 UNIT/GM CREAM 15 GM TOPICAL SCH ×3 (05:33→17:19)
[2017-11-19] MEDS: HEPARIN SODIUM - SQ 10,000 UNITS/ML VIAL SQ SCH ×2 (05:33→12:46)
[2017-11-19] MEDS: MIDODRINE 5 MG TAB PO SCH ×2 (05:33→12:45)
[2017-11-19] MEDS: CALCIUM CARBONATE 1.25 GM (CA 500 MG) TAB PO SCH ×2 (05:34→12:46)
[2017-11-19 08:00] VITALS: PULSE 85
[2017-11-19 08:08] VITALS: BP 97/62; PULSE 89; RESP 22; TEMP 97.9; O2SAT 97
[2017-11-19] MEDS: NYSTATIN 100,000 U/GM PWD 15 GM BTL TOPICAL SCH (09:00)
[2017-11-19] MEDS: buPROPion HCL 150 MG SUSTAINED RELEASE TAB PO SCH (09:53)
[2017-11-19] MEDS: SODIUM CHLORIDE 0.9% FLUSH 10 ML FLUSH IV FLUSH SCH (09:53)
[2017-11-19] MEDS: PANTOPRAZOLE SOD 40 MG DELAYED RELEASE TAB PO SCH (09:53)
[2017-11-19] MEDS: ASPIRIN EC 81 MG TABEC PO SCH (09:53)
--- NOTE | 2017-11-19 11:43 | HHI.PR ---
Subjective Remarks Follow-up osteomyelitis, end-stage renal disease, sepsis. The patient states that she is tired today. She still feels that she is ready to go home. No other complaints at this time. Objective Vitals Vital Signs Date Time Temp Pulse Resp B/P (MAP) Pulse Ox O2 Delivery O2 Flow Rate FiO2 11/19/17 08:08 97.9 89 22 97/62 (74) 97 11/19/17 08:00 Nasal Cannula 1.00 11/19/17 08:00 85 11/19/17 04:00 74 11/19/17 04:00 Nasal Cannula 1.00 11/19/17 00:00 97.9 78 18 97/34 (55) 97 11/19/17 00:00 Nasal Cannula 1.00 11/19/17 00:00 77 11/18/17 21:00 84 11/18/17 20:39 Nasal Cannula 3.00 11/18/17 20:00 Nasal Cannula 1.00 11/18/17 20:00 98.1 74 21 105/56 (72) 100 11/18/17 16:00 97.2 81 17 98/57 (71) 94 11/18/17 16:00 Nasal Cannula 1.00 11/18/17 16:00 73 11/18/17 12:00 97.1 75 16 90/55 (67) 98 11/18/17 12:00 Nasal Cannula 1.00 I/O 11/18/17 11/18/17 11/18/17 11/19/17 11/19/17 11/19/17 07:00 15:00 23:00 07:00 15:00 23:00 Intake Total 560 ml 0 ml Output Total 0 ml Balance 560 ml 0 ml Intake Oral 360 ml 0 ml IV Total 200 ml Output Urine Total 0 ml # Voids 0 # Bowel Movements 1 0 Result Diagram: 11/17/17 0547 11/17/17 0547 Imaging Last Impressions Aorta w/Runoff CTA 11/10/17 0000 Signed Impressions: Service Date/Time: Saturday, November 11, 2017 23:27 - CONCLUSION: 1. Patient does not appear to have a vascular etiology for current clinical symptoms. Despite fairly significant scattered atherosclerotic calcification, inflow and outflow is present bilaterally. The anterior tibials are diminutive distally and the peroneals continue as the anterior tibials at the ankle. 2. Small bilateral pleural effusions with concomitant atelectatic changes. 3. Extensive varicosities in the subcutaneous tissues of the abdomen and flank. This may be due to stenosis or occlusion of the IVC. Patient does have an indwelling dialysis type catheter traversing the entire length of the IVC. 4. Mottled and somewhat sclerotic appearance of the entire axial skeleton. This was present previously and is basically stable. Findings may be due to altered calcium metabolism associated with long-term renal insufficiency/failure. 5. Small umbilical hernia which only contains fat. Ministerio Wei MD Foot MRI 11/06/17 0000 Signed Impressions: Service Date/Time: Monday, November 06, 2017 12:57 - CONCLUSION: 1. The combination of radiographic findings and the abnormal T1 and T2 signal in the distal 1 cm of the fourth metatarsal is suspicious for osteomyelitis. Please note that no contrast could be administered given the patient's end-stage renal disease. 2. Signal abnormality versus inhomogeneous fat suppression involving the proximal distal phalanx of the fifth digit. 3. There is subcutaneous edema on the lateral aspect of the foot and adjacent to the distal end of the fourth metatarsal. Damián Cabrera MD Ankle MRI 11/06/17 0000 Signed Impressions: Service Date/Time: Monday, November 06, 2017 12:57 - CONCLUSION: There are no imaging findings to indicate osteomyelitis around the ankle. Please refer to foot MRI report for further description of the foot findings. Damián Cabrera MD Foot X-Ray 11/05/17 0000 Signed Impressions: Service Date/Time: Sunday, November 05, 2017 18:25 - CONCLUSION: 1. Erosions at the fourth metatarsal head suspicious for osteomyelitis. Previous amputations as above. 2. Soft tissue ulcer posterior heel just above the calcaneus. Dmitry Anton MD Objective Remarks General: Morbidly obese female in no acute distress. Heart: Regular rate and rhythm. No murmur. Lungs: Clear to auscultation bilaterally. No wheezes, rales, or rhonchi. Breathing is nonlabored. Abdomen: Soft, nontender, nondistended. Extremities: No lower extremity edema. Wounds are bandaged. Psych: Sleeping, but awakens and answers questions appropriately. Neuro: Speech is normal. No obvious cranial nerve deficits. Procedures 11/08/2017 Transmetatarsal amputation performed to right foot; Debridement and irrigation of posterior ankle ulcer with wound VAC placement. Urinary Catheter: No Vascular Central Line Catheter: No A/P Problem List: (1) Leukocytosis ICD Code: D72.829 - Leukocytosis Status: Acute (2) Sacral ulcer ICD Code: L98.429 - Non-pressure chronic ulcer of back with unspecified severity (3) Diabetes mellitus ICD Code: E11.9 - Type 2 diabetes mellitus without complications (4) ESRD on hemodialysis ICD Code: N18.6 - End stage renal disease; Z99.2 - Dependence on renal dialysis Status: Chronic (5) Status post amputation of toe of right foot ICD Code: Z89.421 - Acquired absence of other right toe(s) Assessment and Plan 11/19/17: No change. Repeat blood cultures from 11/13/17 are negative. Awaiting infectious disease recommendations. 1. Sepsis, present on admission: Resolved. Source is osteomyelitis of the right foot. 2. Right foot osteomyelitis: Status post transmetatarsal amputation on 11/08/17. Continue cefepime, micafungin until cultures are negative per infectious disease. 3. ESRD: Hemodialysis per nephrology. 4. Sacral decubitus ulcers: Continue wound care. 5. Diabetes mellitus: Monitor Accu-Cheks and cover with sliding scale insulin. 6. DVT prophylaxis: Heparin. Discharge Planning Plan for discharge home with home health care when cleared by infectious disease. Problem Qualifiers (1) Leukocytosis: Qualified Codes: D72.829 - Elevated white blood cell count, unspecified (2) Diabetes mellitus: Rob Gauthier MD Nov 19, 2017 11:43
--- NOTE | 2017-11-19 11:53 | PD.CAR.PN ---
CVT Progress Note Subjective/Hospital Course: Referral received Full consult EMILEE Jolly 11/11/2017 nothing to add to care at this time Excellent work by Dr. Naqvi. We will see how patient heals and what the future brings There are no plans at this time to do any revascularization from vascular point The area starts to heal adequately patient will not need any intervention from my point and if this deteriorates then below-knee amputation may be the only option left 11/14/2017 General condition unchanged I reviewed CTA with runoff and as expected patient has good inflow some mild atherosclerotic disease in SFAs bilateral and then runoff with 3 vessels to the foot. Ones down in the foot vessels become very diminutive and patient clearly has small vessel disease from above the ankle down Nonetheless due to chronic stasis changes as well as Leiper fibrosis and chronic organized edema below the level of the knee, vessels are not palpable in the foot but only dopplerable as noted in clinical exam This is pretty good blood flow and should not be impairment to any debridements or resections as far as podiatry surgery is concerned Amputation would be an option of destruction of the foot is so severe that no further utility or reconstruction can be done 11/19/2017 Patient doing well with wound care and current therapy as far as the left foot is concerned Tiny area on the back of the heel or the Achilles tendon is exposed Being taken care of by conservative measures At this point looking at the foot there is just a matter of time when the necrosis is so bad the patient will develop systemic symptoms and then below- knee amputation will cuff turner to be in the emergency At this point I believe the most appropriate way to manage this patient is a below-knee amputation on elective basis and expectant therapy with wound care is going to lead to problems and eventually to possible emergency situation where patient has gas gangrene and becomes septic Therefore it is highly recommended that patient has a left below-knee amputation ELZBIETA Objective: Vital Signs Date Time Temp Pulse Resp B/P (MAP) Pulse Ox O2 Delivery O2 Flow Rate FiO2 11/19/17 08:08 97.9 89 22 97/62 (74) 97 11/19/17 08:00 Nasal Cannula 1.00 11/19/17 08:00 85 11/19/17 04:00 74 11/19/17 04:00 Nasal Cannula 1.00 11/19/17 00:00 97.9 78 18 97/34 (55) 97 11/19/17 00:00 Nasal Cannula 1.00 11/19/17 00:00 77 11/18/17 21:00 84 11/18/17 20:39 Nasal Cannula 3.00 11/18/17 20:00 Nasal Cannula 1.00 11/18/17 20:00 98.1 74 21 105/56 (72) 100 11/18/17 16:00 97.2 81 17 98/57 (71) 94 11/18/17 16:00 Nasal Cannula 1.00 11/18/17 16:00 73 11/18/17 12:00 97.1 75 16 90/55 (67) 98 11/18/17 12:00 Nasal Cannula 1.00 Result Diagram: 11/17/17 0547 11/17/17 0547 Tania Ramsay MD Nov 19, 2017 11:53
--- NOTE | 2017-11-19 13:27 | HHI.IDPN ---
Subjective Subjective Remarks feeling good stable co R foot pain no fever Antibiotics vancomycin cefepime micafungin Past Medical History DM osteo Allergies: Coded Allergies: levofloxacin (Unverified Allergy, Severe, Anaphylaxis, 09/12/17) ANAPHYLAXIS Objective . Vital Signs Date Time Temp Pulse Resp B/P (MAP) Pulse Ox O2 Delivery O2 Flow Rate FiO2 11/19/17 08:08 97.9 89 22 97/62 (74) 97 11/19/17 08:00 Nasal Cannula 1.00 11/19/17 08:00 85 11/19/17 04:00 74 11/19/17 04:00 Nasal Cannula 1.00 11/19/17 00:00 97.9 78 18 97/34 (55) 97 11/19/17 00:00 Nasal Cannula 1.00 11/19/17 00:00 77 11/18/17 21:00 84 11/18/17 20:39 Nasal Cannula 3.00 11/18/17 20:00 Nasal Cannula 1.00 11/18/17 20:00 98.1 74 21 105/56 (72) 100 11/18/17 16:00 97.2 81 17 98/57 (71) 94 11/18/17 16:00 Nasal Cannula 1.00 11/18/17 16:00 73 Imaging Last Impressions Aorta w/Runoff CTA 11/10/17 0000 Signed Impressions: Service Date/Time: Saturday, November 11, 2017 23:27 - CONCLUSION: 1. Patient does not appear to have a vascular etiology for current clinical symptoms. Despite fairly significant scattered atherosclerotic calcification, inflow and outflow is present bilaterally. The anterior tibials are diminutive distally and the peroneals continue as the anterior tibials at the ankle. 2. Small bilateral pleural effusions with concomitant atelectatic changes. 3. Extensive varicosities in the subcutaneous tissues of the abdomen and flank. This may be due to stenosis or occlusion of the IVC. Patient does have an indwelling dialysis type catheter traversing the entire length of the IVC. 4. Mottled and somewhat sclerotic appearance of the entire axial skeleton. This was present previously and is basically stable. Findings may be due to altered calcium metabolism associated with long-term renal insufficiency/failure. 5. Small umbilical hernia which only contains fat. Ministerio Wei MD Foot MRI 11/06/17 0000 Signed Impressions: Service Date/Time: Monday, November 06, 2017 12:57 - CONCLUSION: 1. The combination of radiographic findings and the abnormal T1 and T2 signal in the distal 1 cm of the fourth metatarsal is suspicious for osteomyelitis. Please note that no contrast could be administered given the patient's end-stage renal disease. 2. Signal abnormality versus inhomogeneous fat suppression involving the proximal distal phalanx of the fifth digit. 3. There is subcutaneous edema on the lateral aspect of the foot and adjacent to the distal end of the fourth metatarsal. Damián Cabrera MD Ankle MRI 11/06/17 0000 Signed Impressions: Service Date/Time: Monday, November 06, 2017 12:57 - CONCLUSION: There are no imaging findings to indicate osteomyelitis around the ankle. Please refer to foot MRI report for further description of the foot findings. Damián Cabrera MD Foot X-Ray 11/05/17 0000 Signed Impressions: Service Date/Time: Sunday, November 05, 2017 18:25 - CONCLUSION: 1. Erosions at the fourth metatarsal head suspicious for osteomyelitis. Previous amputations as above. 2. Soft tissue ulcer posterior heel just above the calcaneus. Dmitry Anton MD Physical Exam GENERAL: This is a well-nourished, well-developed patient, in no apparent distress. SKIN: No rashes, ecchymoses or lesions. Cool and dry. EYES: Pupils equal round and reactive. Extraocular motions intact. No scleral icterus. No injection or drainage. ENT: face edematous CARDIOVASCULAR: Regular rate and rhythm without murmurs, gallops, or rubs. RESPIRATORY: Clear to auscultation. Breath sounds equal bilaterally. No wheezes , rales, or rhonchi. GASTROINTESTINAL: Abdomen soft, non-tender, nondistended. MUSCULOSKELETAL: Right forefoot amputation surgical site with no evidence of infection. Wound over R achilles with poor granulations and necrotic tissue in the wound bed Incision site appears dusky, but approximated; no drainage NEUROLOGICAL: Awake and alert. Nonfocal exam Psych cooperative IV line sites with no evidence of infection Right groin hemodialysis access catheter site with no evidence of infection. Assessment & Plan Remarks Assessment and Plan Assessment and Plan Possible sepsis present on admission Right foot fourth digit osteomyelitis. sp TMA 3/ - path with acute osteo Status post right foot transmetatarsal amputation. Patient is on IV vancomycin scheduled to end on November 16, 2017. Unstageable sacral decubiti with possible cellulitis High-grade leukocytosis on presentation Hypotension, suspected sepsis ? pt has groin HD access ? source of sepsis Pt has non healing wound over R achilles which is probably 2/2 small vessel diseas e and at this point is small v esel proble. Pt is unlikley to heal her wound and eventually will end up with BKA Recommendations complete IV vancomycin dc cefepime, micafungin dw Steffany Szymanski MD Nov 19, 2017 13:27
[2017-11-19] MEDS ORDERED: HYDR-3516 PO (13:34)
--- NOTE | 2017-11-19 13:35 | HHI.DCPOC ---
Discharge Care Plan Diagnosis: (1) Osteomyelitis (2) ESRD on hemodialysis (3) Leukocytosis (4) Sacral ulcer (5) Morbid obesity (6) Diabetes mellitus (7) Sepsis Goals to Promote Your Health * To prevent worsening of your condition and complications * To maintain your health at the optimal level Directions to Meet Your Goals Take your medications as prescribed Follow your dietary instruction Follow activity as directed Keep your appointments as scheduled Take your immunizations and boosters as scheduled If your symptoms worsen call your PCP, if no PCP go to Urgent Care Center or Emergency Room Smoking is Dangerous to Your Health. Avoid second hand smoke Call the 24-hour hour crisis hotline for domestic abuse at Rob Gauthier MD Nov 19, 2017 13:35
--- NOTE | 2017-11-19 13:35 | HHI.FF ---
Face to Face Verification Diagnosis: (1) Morbid obesity (2) ESRD (end stage renal disease) (3) Sepsis (4) Osteomyelitis (5) Sacral ulcer (6) Diabetes mellitus Physical Therapy Order: Evaluate and Treat Home Health Nursing Order: Nursing assessment with vital signs I have seen patient Aleksandra Jenkins on 11/19/17. My clinical findings support the need for the requested home health care services because: Deconditioned w/ increased weakness Limited ability to care for self High risk of falls I certify that my clinical findings support that this patient is homebound because: Unsteady gait/balance Unsafe to leave home unassisted Rob Gauthier MD Nov 19, 2017 13:35
--- NOTE | 2017-11-19 13:40 | HHI.DS ---
Discharge Summary Admission Date Nov 06, 2017 at 21:40 Discharge Date: Nov 19, 2017 Admitting Diagnosis leukocytosis, hyperkalemia, ESRD on HD (1) Leukocytosis ICD Code: D72.829 - Leukocytosis Status: Acute (2) Sacral ulcer ICD Code: L98.429 - Non-pressure chronic ulcer of back with unspecified severity (3) Diabetes mellitus ICD Code: E11.9 - Type 2 diabetes mellitus without complications (4) ESRD on hemodialysis ICD Code: N18.6 - End stage renal disease; Z99.2 - Dependence on renal dialysis Status: Chronic (5) Status post amputation of toe of right foot ICD Code: Z89.421 - Acquired absence of other right toe(s) Procedures 11/08/2017 Transmetatarsal amputation performed to right foot; Debridement and irrigation of posterior ankle ulcer with wound VAC placement. Brief History - From Admission 57-year-old female with PMH of hypotension, CHF, hypothyroidism , HLD, ESRD on HD, DM, neuropathy and COPD on chronic home O2 who presents to the the ED with complaints of left heel pain and tailbone pain. Medical record reviewed, patient was recently admitted on 09/12/17 and treated for sepsis and right foot fourth toe osteomyelitis. Infectious disease saw the patient while she was hospitalized and she was treated with IV antibiotics during her hospital stay. She was also seen by podiatry and underwent right foot fourth digit amputation on 09/17/17. She was discharged with IV vancomycin which she was to receive 1.5 g IV on Sunday, Sunday, and Sunday during dialysis treatments. End date for vancomycin was November 16. She was also discharged on Keflex 500 mg every 8 hours for 7 days. Patient's discharge date was 09/19/17. Patient states that she was discharged to halfway facility and then went home. She reports being home for about 1 month and being assisted with the help of daughter and grandchildren. Today she reports that the pain in her right heel as well as to the bone was so bad that she came into the hospital. She denies any drainage from right foot amputation site. Last HD treatment was today, she repros her BP will usually be on the low side after HD. Denies any dizziness or lightheadedness. She is visited by wound care nurse twice a week, consisting of cleaning right foot and dressing changes. Denies any fevers, chills, nausea, vomiting, diarrhea, bloody stool, no vaginal discharge. She denies any cough or SOB, she has not been on any steroids recently. Complaints of some hand jerks for the past months. CBC/BMP: 11/17/17 0547 11/17/17 0547 Significant Findings Laboratory Tests Test 11/17/17 05:47 Red Cell Distribution Width 17.9 % (11.6-17.2) Mean Platelet Volume 6.9 FL (7.0-11.0) Monocytes (%) (Auto) 10.7 % (0.0-8.0) Eosinophils (%) (Auto) 5.3 % (0.0-4.0) Eosinophils # (Auto) 0.5 TH/MM3 (0-0.4) Blood Urea Nitrogen 40 MG/DL (7-18) Creatinine 5.78 MG/DL (0.50-1.00) Total Protein 8.3 GM/DL (6.4-8.2) Calcium Level 8.4 MG/DL (8.5-10.1) Sodium Level 134 MEQ/L (136-145) Chloride Level 97 MEQ/L (98-107) Estimat Glomerular Filtration Rate 9 ML/MIN (>89) Imaging Last Impressions Aorta w/Runoff CTA 11/10/17 0000 Signed Impressions: Service Date/Time: Saturday, November 11, 2017 23:27 - CONCLUSION: 1. Patient does not appear to have a vascular etiology for current clinical symptoms. Despite fairly significant scattered atherosclerotic calcification, inflow and outflow is present bilaterally. The anterior tibials are diminutive distally and the peroneals continue as the anterior tibials at the ankle. 2. Small bilateral pleural effusions with concomitant atelectatic changes. 3. Extensive varicosities in the subcutaneous tissues of the abdomen and flank. This may be due to stenosis or occlusion of the IVC. Patient does have an indwelling dialysis type catheter traversing the entire length of the IVC. 4. Mottled and somewhat sclerotic appearance of the entire axial skeleton. This was present previously and is basically stable. Findings may be due to altered calcium metabolism associated with long-term renal insufficiency/failure. 5. Small umbilical hernia which only contains fat. Ministerio Wei MD Foot MRI 11/06/17 0000 Signed Impressions: Service Date/Time: Monday, November 06, 2017 12:57 - CONCLUSION: 1. The combination of radiographic findings and the abnormal T1 and T2 signal in the distal 1 cm of the fourth metatarsal is suspicious for osteomyelitis. Please note that no contrast could be administered given the patient's end-stage renal disease. 2. Signal abnormality versus inhomogeneous fat suppression involving the proximal distal phalanx of the fifth digit. 3. There is subcutaneous edema on the lateral aspect of the foot and adjacent to the distal end of the fourth metatarsal. Damián Cabrera MD Ankle MRI 11/06/17 0000 Signed Impressions: Service Date/Time: Monday, November 06, 2017 12:57 - CONCLUSION: There are no imaging findings to indicate osteomyelitis around the ankle. Please refer to foot MRI report for further description of the foot findings. Damián Cabrera MD Foot X-Ray 11/05/17 0000 Signed Impressions: Service Date/Time: Sunday, November 05, 2017 18:25 - CONCLUSION: 1. Erosions at the fourth metatarsal head suspicious for osteomyelitis. Previous amputations as above. 2. Soft tissue ulcer posterior heel just above the calcaneus. Dmitry Anton MD PE at Discharge General: Morbidly obese female in no acute distress. Heart: Regular rate and rhythm. No murmur. Lungs: Clear to auscultation bilaterally. No wheezes, rales, or rhonchi. Breathing is nonlabored. Abdomen: Soft, nontender, nondistended. Extremities: No lower extremity edema. Wounds are bandaged. Psych: Sleeping, but awakens and answers questions appropriately. Neuro: Speech is normal. No obvious cranial nerve deficits. Hospital Course The patient was admitted for further workup and management of leukocytosis, sepsis. Source of infection was osteomyelitis of the right foot. She was continued on IV antibiotics. Podiatry was consulted. Nephrology was consulted for management of hemodialysis. Wound care was consulted for sacral wound and right heel wound. The patient developed septic shock and critical care was consulted. Patient was given fluid resuscitation and continued on IV antibiotics. Transmetatarsal amputation of the right foot was done on 11/08/17. Vascular surgery was consulted for evaluation of gangrene of the right foot and peripheral vascular disease. The wound over the right Achilles tendon was irrigated and debrided at the same time. The patient was continued on IV antibiotics until repeat cultures were negative. She was cleared for discharge by nephrology, vascular surgery, and infectious disease. She was felt to be stable for discharge home with home health care. Pt Condition on Discharge: Stable Discharge Disposition: Disch w/ Home Health Serv Discharge Time: > 30 minutes Discharge Instructions DIET: Follow Instructions for: Renal Failure Diet Activities you can perform: Regular-No Restrictions Follow up Referrals: Podiatry @ [facility] with Leonie Naqvi DPM New Medications: Hydrocodone/Acetaminophen (Hydrocodone-Acetamin 5-325 mg) 5 Mg-325 Mg Tablet 1 TAB PO Q4H PRN for PAIN GREATER THAN 5, #15 TAB 0 Refills Continued Medications: Aspirin DR (Aspirin EC) 81 Mg Tabdr 81 MG PO DAILY for Prevent Blood Clot, #30 TAB Atorvastatin (Atorvastatin) 10 Mg Tab 10 MG PO HS for Cholesterol Management, #30 TAB 0 Refills Bupropion HCl ER 24 HR (Bupropion HCl ER 24 HR) 150 Mg Tab 300 MG PO DAILY for Control Depression, TAB 0 Refills Calcium Carbonate (Calcium Carbonate) 500 Mg Calcium (1250 Mg) Tab 2000 MG PO Q8HR for Calcium Supplement, TAB 0 Refills 1,250 mg calcium carbonate (500 mg elemental calcium) Cyclobenzaprine (Flexeril) 10 Mg Tab 10 MG PO BID PRN for MUSCLE SPASM, #10 TAB Gabapentin (Gabapentin) 300 Mg Cap 300 MG PO HS, #30 CAP 0 Refills Ipratropium-Albuterol Inh (Combivent Respimat Inh) 20-100 Fdc/Act Aero 2 PUFF INH BID for Asthma Management, #1 INHALER 0 Refills Midodrine (Midodrine) 10 Mg Tab 10 MG PO DAILY for Control Low Blood Pressure, #90 TAB 0 Refills Pantoprazole (Pantoprazole) 40 Mg Tab 40 MG PO DAILY for Reflux, #30 TAB 0 Refills Trazodone (Trazodone) 100 Mg Tablet 100 MG PO HS for Control Depression, #30 TAB 0 Refills Discontinued Medications: Calcium Carbonate (Antacid) (Calcium Carbonate (Antacid)) 500 Mg Chew 1000 MG CHEW Q4HR for Calcium Supplement, #120 EA Insulin Aspart Protam-Asp 70-30 Inj (Novolog Mix 70-30 Inj) 1,000 Unit/10 Ml Vial 8 UNITS SQ BID@17 for Blood Sugar Management, #100 INJECTION Rob Gauthier MD Nov 19, 2017 13:40
--- NOTE | 2017-11-19 15:04 | HHI.NPPN ---
Subjective Renal Failure: End Stage Renal Disease History of Present Illness 57-year-old diabetes, right foot infection, sacral decubitus, ESRD Additional Remarks Resting comfortably in good spirits. No complaints or problems reported Review of Systems Respiratory Respiratory Remarks Denies any SOB Cardiovascular Cardiac Remarks No CP Gastrointestinal GI Remarks No abdominal pain Objective Data Data Vital Signs Date Time Temp Pulse Resp B/P (MAP) Pulse Ox O2 Delivery O2 Flow Rate FiO2 11/19/17 08:08 97.9 89 22 97/62 (74) 97 11/19/17 08:00 Nasal Cannula 1.00 11/19/17 08:00 85 11/19/17 04:00 74 11/19/17 04:00 Nasal Cannula 1.00 11/19/17 00:00 97.9 78 18 97/34 (55) 97 11/19/17 00:00 Nasal Cannula 1.00 11/19/17 00:00 77 11/18/17 21:00 84 11/18/17 20:39 Nasal Cannula 3.00 11/18/17 20:00 Nasal Cannula 1.00 11/18/17 20:00 98.1 74 21 105/56 (72) 100 11/18/17 16:00 97.2 81 17 98/57 (71) 94 11/18/17 16:00 Nasal Cannula 1.00 11/18/17 16:00 73 -: 11/17/17 0547 11/17/17 0547 Tubes & Lines: Vas-Cath Tubes & Lines Comment Right groin Physical Exam General Appearance: Well Developed, Obese Neck Neck Exam: Neck Supple Pulmonary Resp Exam: Clear Bilaterally, Breath Sounds Equal Cardiology CV Exam: Regular, Normal Sinus Rhythm Gastrointestinal/Abdomen GI Exam: Soft, Bowel Sounds Present Integumentary Skin Exam: Lesion(s) Extremeties Extremities Exam: Trace Edema Extremeties Remarks s/p TMA Assessment/Plan Problem List: (1) ESRD (end stage renal disease) ICD Codes: N18.6 - End-stage renal disease Status: Chronic Plan: Patient is on hemodialysis Follow-up Sunday, Sunday and Sunday schedule Permcath right groin s/p Rt foot TMA rt heel surgery Osteomyelitis antibiotics per ID Dialysis seen at dialysis 2 K 2 L UF (2) Sacral ulcer ICD Codes: L98.429 - Non-pressure chronic ulcer of back with unspecified severity Plan: Patient is getting vancomycin (3) Diabetes mellitus ICD Codes: E11.9 - Type 2 diabetes mellitus without complications Plan: Continue to monitor, maintain blood glucose between 140 and 180. (4) Hypotension ICD Codes: I95.9 - Hypotension Status: Resolved Plan: Patient takes midodrine TID (5) Morbid obesity ICD Codes: E66.01 - Morbid (severe) obesity due to excess calories Status: Chronic Problem Qualifiers (1) Diabetes mellitus: Frank Villagran MD Nov 19, 2017 15:04
[2017-11-19] MEDS: GENTAMICIN SULFATE 20 MG/2 ML VIAL OTHER PRN (15:25)
[2017-11-19] MEDS: HEPARIN SODIUM - IV 10,000 UNITS/10 ML VIAL PRN (15:25)
[2017-11-19] MEDS: EPOETIN ALFA 10,000 UNITS/ML VIAL IV PUSH PRN (15:25)
[2017-11-19] MEDS: ALBUMIN 25% INJ 100 ML IV PRN (15:25)
--- NOTE | 2017-11-19 18:21 | PD.POD ---
Subjective Pain score: 3 Remarks Doing well wants to try wound care and wants to go home Past Med/Surg/Social History Social History Smoking Status: Never Smoker Objective Vital Signs Vital Signs Date Time Temp Pulse Resp B/P (MAP) Pulse Ox O2 Delivery O2 Flow Rate FiO2 11/19/17 08:08 97.9 89 22 97/62 (74) 97 11/19/17 08:00 Nasal Cannula 1.00 11/19/17 08:00 85 11/19/17 04:00 74 11/19/17 04:00 Nasal Cannula 1.00 11/19/17 00:00 97.9 78 18 97/34 (55) 97 11/19/17 00:00 Nasal Cannula 1.00 11/19/17 00:00 77 11/18/17 21:00 84 11/18/17 20:39 Nasal Cannula 3.00 11/18/17 20:00 Nasal Cannula 1.00 11/18/17 20:00 98.1 74 21 105/56 (72) 100 Coded Allergies: levofloxacin (Unverified Allergy, Severe, Anaphylaxis, 09/12/17) ANAPHYLAXIS Medications and IVs Administered Medications Medications (Trade) Dose Ordered Sig/Mary Grace Route PRN Reason Start Time Stop Time Status Last Admin Dose Admin Sodium Chloride (NS Flush) 2 ml UNSCH PRN IV FLUSH FLUSH AFTER USING IV ACCESS 11/05/17 16:15 11/06/17 12:24 Sodium Chloride (NS Flush) 2 ml BID IV FLUSH 11/05/17 21:00 11/19/17 09:53 Morphine Sulfate (Morphine Inj) 2 mg Q3H PRN IV PUSH BREAKTHROUGH PAIN 11/05/17 17:30 11/17/17 23:32 Aspirin (Ecotrin Ec) 81 mg DAILY PO 11/06/17 09:00 11/19/17 09:53 Atorvastatin Calcium (Lipitor) 10 mg HS PO 11/05/17 21:00 11/18/17 21:26 Bupropion HCl (Wellbutrin Sr) 150 mg BID PO 11/05/17 21:00 11/19/17 09:53 Calcium Carbonate (Oscal) 2,000 mg Q8HR PO 11/05/17 22:00 11/19/17 12:46 Cyclobenzaprine HCl (Flexeril) 10 mg BID PRN PO MUSCLE SPASM 11/05/17 17:30 11/19/17 05:33 Gabapentin (Neurontin) 300 mg HS PO 11/05/17 21:00 11/18/17 21:25 Pantoprazole Sodium (Protonix) 40 mg DAILY PO 11/06/17 09:00 11/19/17 09:53 Trazodone HCl (Desyrel) 100 mg HS PO 11/05/17 21:00 11/18/17 21:26 Albumin Human 100 ml @ 60 mls/hr UNSCH PRN IV WITH DIALYSIS 11/05/17 18:30 11/19/17 15:25 Heparin Sodium (Porcine) (Heparin Inj) UNSCH PRN .XX WITH DIALYSIS 11/05/17 18:30 11/19/17 15:25 Gentamicin Sulfate (Gentamicin Inj) 20 mg UNSCH PRN OTHER WITH DIALYSIS 11/05/17 18:30 11/19/17 15:25 Nitroglycerin (Nitrostat Sl) 0.4 mg UNSCH PRN SL CHEST PAIN 11/05/17 18:30 11/14/17 10:49 Heparin Sodium (Porcine) (Heparin Inj) 5,000 units Q8HR SQ 11/05/17 22:00 11/19/17 12:46 Acetaminophen/ Hydrocodone Bitart ([place] 5-325 Mg) 1 tab Q4H PRN PO PAIN GREATER THAN 5 11/06/17 16:45 11/18/17 10:16 Nystatin (Mycostatin Powder) 1 applic BID TOPICAL 11/07/17 10:00 11/19/17 09:00 Lidocaine (L-M-X 4 Cream) 1 applic EVERY OTHER DAY PRN TOPICAL DISLODGEMENT 11/07/17 09:30 11/16/17 22:13 Silver Sulfadiazine (Silvadene 1% Cream (50 Gm)) 1 applic EVERY OTHER DAY PRN TOPICAL DISLODGEMENT 11/07/17 09:30 11/07/17 15:43 Midodrine (Proamatine) 10 mg Q8HR PO 11/08/17 22:00 11/19/17 12:45 Miscellaneous Information Patient in critical care unit? Ass... [id number] .XX 11/08/17 22:15 11/08/17 22:15 Epoetin Velasquez (Epogen Inj) 4,000 units UNSCH PRN IV PUSH WITH DIALYSIS 11/09/17 10:45 11/19/17 15:25 Nystatin (Mycostatin Cream) 1 applic Q6HR TOPICAL 11/11/17 12:00 11/19/17 12:35 Insulin Aspart (NovoLOG SUPPLEMENTAL SCALE) 1 Q6H SQ 11/12/17 15:00 11/17/17 11:22 Exam-Podiatry Remarks Right lower extremity exam and amputation site of forefoot well coapted with sutures intact posterior Achilles exposed with necrotic base of Achilles tendon no obvious signs of infection the wound periphery appears to be viable foot is warm sensation decreased to light touch Assessment & Plan A/P 57-year-old female with right foot osteomyelitis and right posterior ankle ulcer with exposed Achilles tendon Status post right transmetatarsal amputation with debridement and irrigation of posterior ankle ulcer Okay to discharge follow-up outpatient with Dr. Naqvi likely will need routine debridements in the office with possible resection of Achilles tendon. There is a possibility the patient may eventually need a [id number] amputation but the foot appears viable at this point and the patient wishes for limb salvage case reviewed with Dr. Alvarez. Paresh Spaulding DPM Nov 19, 2017 18:21
== END 2017-11-19 19:11 | disposition home health service (06) | DRG 853 ==
LOC: NEPE 14:21 → NEDA 16:17 → NEPFCDU 17:48 → OBSVTOIN 11-06 21:40 → HCIS 11-08 14:33 → HIMN 11-08 20:20 → N04B 11-16 16:12 → N04A 11-16 16:14
PROVIDERS: ADMIT Family Medicine; ATTEND Family Medicine
PROC: 5A1D70Z Performance of Urinary Filtration, Intermittent, Less than 6 Hours Per Day (ICD-10-PCS; 2017-11-07)
PROC: 0Y6M0ZD Detachment at Right Foot, Partial 4th Ray, Open Approach (ICD-10-PCS; 2017-11-08)
PROC: 0Y6M0ZF Detachment at Right Foot, Partial 5th Ray, Open Approach (ICD-10-PCS; 2017-11-08)
PROC: 0LBS0ZZ Excision of Right Ankle Tendon, Open Approach (ICD-10-PCS; 2017-11-08)
PROC: 0JBQ0ZZ Excision of Right Foot Subcutaneous Tissue and Fascia, Open Approach (ICD-10-PCS; 2017-11-08)
PROC: 0Y6M0ZC Detachment at Right Foot, Partial 3rd Ray, Open Approach (ICD-10-PCS; principal; 2017-11-08 15:46)
DX: A41.9 Sepsis, unspecified organism (principal); N18.6 End stage renal disease; R65.21 Severe sepsis with septic shock; I13.2 Hypertensive heart and chronic kidney disease with heart failure and with stage 5 chronic kidney disease, or end stage renal disease; I96 Gangrene, not elsewhere classified; L89.150 Pressure ulcer of sacral region, unstageable; E11.52 Type 2 diabetes mellitus with diabetic peripheral angiopathy with gangrene; M86.9 Osteomyelitis, unspecified; Z68.43 Body mass index [BMI] 50.0-59.9, adult; L03.312 Cellulitis of back [any part except buttock and flank]; E11.22 Type 2 diabetes mellitus with diabetic chronic kidney disease; L89.611 Pressure ulcer of right heel, stage 1; E11.40 Type 2 diabetes mellitus with diabetic neuropathy, unspecified; Z99.2 Dependence on renal dialysis; E11.621 Type 2 diabetes mellitus with foot ulcer; E11.622 Type 2 diabetes mellitus with other skin ulcer; J44.9 Chronic obstructive pulmonary disease, unspecified; I50.9 Heart failure, unspecified; L89.519 Pressure ulcer of right ankle, unspecified stage; E78.5 Hyperlipidemia, unspecified; F41.9 Anxiety disorder, unspecified; F32.9 Major depressive disorder, single episode, unspecified; M19.90 Unspecified osteoarthritis, unspecified site; E78.00 Pure hypercholesterolemia, unspecified; K21.9 Gastro-esophageal reflux disease without esophagitis; G47.30 Sleep apnea, unspecified; Y71.2 Prosthetic and other implants, materials and accessory cardiovascular devices associated with adverse incidents; Y73.3 Surgical instruments, materials and gastroenterology and urology devices (including sutures) associated with adverse incidents; E89.0 Postprocedural hypothyroidism; Z89.421 Acquired absence of other right toe(s); E87.5 Hyperkalemia; Z99.81 Dependence on supplemental oxygen; Z80.42 Family history of malignant neoplasm of prostate; Z83.3 Family history of diabetes mellitus; Z82.49 Family history of ischemic heart disease and other diseases of the circulatory system; Z87.891 Personal history of nicotine dependence; E66.01 Morbid (severe) obesity due to excess calories; I70.203 Unspecified atherosclerosis of native arteries of extremities, bilateral legs; M19.071 Primary osteoarthritis, right ankle and foot; I95.89 Other hypotension; T41.45XA Adverse effect of unspecified anesthetic, initial encounter; Y92.234 Operating room of hospital as the place of occurrence of the external cause; Z90.710 Acquired absence of both cervix and uterus
CPT/HCPCS: 73630; 73718; 73721; 75635; 76937; 80048; 80053; 80202; 82948; 83036; 83605; 83735; 84100; 84439; 84443; 85025; 85027; 85610; 85730; 87015; 87040; 87070; 87102; 87116; 87205; 87206; 87641; 88304; 88305; 88307; 88311; 90935; 93923; 94640; 94664; 96372; 96374; 96375; G0378; G8987-GP; G8988-GP; J0610; J0690; J0692; J1580; J1644; J1720; J1815; J2060; J2248; J2250; J2270; J2370; J2405; J3010; J3370; J7030; J7040; J7050; J7060; J7613; P9047; Q4081; Q9967

== ENCOUNTER 2017-11-26 19:30 | Inpatient (IN) | payer MEDICARE, OTHER ==
[~2017-11-26] VITALS: Ht 167.6 cm; Wt 158.5 kg
[~2017-11-26 19:30] MED LIST changes: -ALBUAER3 INH; +ATOR10TA15 PO; -ATOR40TA16 PO; -BACT800T5 PO; +BUPR150T3 PO; -BUPR75TA PO; -Bacitracin Oint Packet TOPICAL; -CALC.25 PO; +CALC12502 PO; -CALC500C16 CHEW; -CEPH-460 PO; -GABA100C4 PO; +GABA300C5 PO; +HYDR-3516 PO; -HYDR-3580 PO; +IPRAAER INH; -LEVO50TA4 PO; -LIDO TOPICAL; +MIDO10TA PO; -MIDO5TAB PO; -NOVOLOGMXP SQ; -SUCR1TAB PO; +TRAZ100T10 PO; -TRAZ50TA12 PO
[2017-11-26 19:49] VITALS: BP 85/52; PULSE 111; RESP 22; TEMP 98.1
--- NOTE | 2017-11-26 19:52 | PD ---
HPI Chief Complaint: generalized weakness, hypotension Time Seen by Provider: 19:52 Travel History International Travel<30 days: No Contact w/Intl Traveler<30days: No Traveled to known affect area: No History of Present Illness HPI 57-year-old female came to the emergency room brought by EMS for generalized weakness. Patient has end-stage renal disease and hemodialysis dependent. She had her dialysis done this morning and during the dialysis of blood pressure dropped to 50 but apparently the dialysis was finished. Patient does not know what was given her done to her for the low blood pressure but she was discharged home. At home she continued to feel worse and called EMS. Patient blood pressure has been in the 80s systolic and she is tachycardic. Patient is nonambulatory and has sacral decubitus wounds and left heel decubitus wound. She is a diabetic and her blood sugar as per EMS was 134. She has had all toes amputated of her left foot. She is awake and answering questions. Patient denies of any chest pain. FOR[facility]LY [facility] Past Medical History Narrative Medical List of her past medical, surgical, social and family history is reviewed from the nursing note Hx Anticoagulant Therapy: No Anemia: Yes Arthritis: Yes Asthma: Yes Autoimmune Disease: No Blood Disorders: No Anxiety: Yes Depression: Yes Heart Rhythm Problems: No Cancer: No Cardiovascular Problems: Yes (CHF, hyperlipidemia) High Cholesterol: Yes Chemotherapy: No Chest Pain: No Congestive Heart Failure: Yes COPD: Yes Cerebrovascular Accident: No Diabetes: Yes Dialysis: Yes (M/W/F) Diminished Hearing: No Endocrine: Yes Gastrointestinal Disorders: Yes (ULCERS) GERD: Yes Glaucoma: No Genitourinary: Yes (ESRD, Dialysis) Headaches: Yes Hepatitis: No Hiatal Hernia: No Hypertension: Yes Immune Disorder: No Implanted Vascular Access Dvce: Yes (PERMACATH R GROIN FOR DIALYSIS) Kidney Stones: No Musculoskeletal: Yes Neurologic: No Psychiatric: Yes Reproductive: No Respiratory: Yes (COPD, asthma) Immunizations Current: Yes Migraines: No Myocardial Infarction: No Pneumonia: Yes (HX) Radiation Therapy: No Renal Failure: Yes (CRF) Seizures: No Sickle Cell Disease: No Sleep Apnea: Yes Thyroid Disease: Yes Ulcer: Yes PNEUMOCCOCAL Vaccine (Year): 3 Menopausal: Yes : 3 Para: 3 Miscarriage: 0 : 0 Past Surgical History Abdominal Surgery: Yes AICD: No Appendectomy: Yes Arteriovenous Shunt: Yes (right femoral ) Body Medical Devices: Old nonfunctioning NANCY fistula. Current- Permacath Right Groin Cardiac Surgery: No Cholecystectomy: Yes Ear Surgery: No Endocrine Surgery: Yes (THYROIDECTOMY) Eye Surgery: Yes (LASIK right cataract removed / left removed) Genitourinary Surgery: Yes (Peritoneal Abdominal Catheter removed april 2015) Gynecologic Surgery: Yes (Partial Hysterectomy and Appendectomy ) Hysterectomy: Yes (PARTIAL ) Insulin Pump: No Joint Replacement: No Neurologic Surgery: No Oral Surgery: Yes (ALL TEETH REMOVED) Pacemaker: No Thoracic Surgery: No Other Surgery: Yes (GREAT TOE AMPUTATION R/L FOOT) Social History Alcohol Use: No Tobacco Use: Yes (09/11) Substance Use: Yes (cocaine 1999) Allergies-Medications (Allergen,Severity, Reaction): Coded Allergies: levofloxacin (Unverified Allergy, Severe, Anaphylaxis, 09/12/17) ANAPHYLAXIS Comments List of her allergies reviewed from the nursing note. Reported Meds & Prescriptions Reported Meds & Active Scripts Active Hydrocodone-Acetamin 5-325 mg (Hydrocodone/Acetaminophen) 5 Mg-325 Mg Tablet 1 Tab PO Q4H PRN Flexeril (Cyclobenzaprine HCl) 10 Mg Tab 10 Mg PO BID PRN Aspirin EC (Aspirin) 81 Mg Tabdr 81 Mg PO DAILY Reported Combivent Respimat Inh (Ipratropium-Albuterol Inh) 20-100 Shelter/Act Aero 2 Puff INH BID Gabapentin 300 Mg Cap 300 Mg PO HS Trazodone (Trazodone HCl) 100 Mg Tablet 100 Mg PO HS Calcium Carbonate 500 Mg Calcium (1250 Mg) Tab 2,000 Mg PO Q8HR 1,250 mg calcium carbonate (500 mg elemental calcium) Midodrine 10 Mg Tab 10 Mg PO DAILY Bupropion HCl ER 24 HR (Bupropion HCl) 150 Mg Tab 300 Mg PO DAILY Atorvastatin (Atorvastatin Calcium) 10 Mg Tab 10 Mg PO HS Pantoprazole (Pantoprazole Sodium) 40 Mg Tab 40 Mg PO DAILY Narrative Medication List of her home medications reviewed from the nursing note. Review of Systems Except as stated in HPI: all other systems reviewed are Neg Physical Exam Narrative GENERAL: Awake, alert, morbidly obese, moderate distress SKIN: Focused skin assessment warm/dry. Stage III decubitus ulcer on the sacrum that's covered with dressing. Left foot is wrapped in padding. Patient has 2 open wounds one on the Achilles tendon which is tender and a stage III decubitus. The second one is on the forefoot with the stitches are from the amputation of the toe. There is some discharge there. These are not foul- smelling. HEAD: Atraumatic. Normocephalic. EYES: Pupils equal and round. No scleral icterus. No injection or drainage. ENT: No nasal bleeding or discharge. Mucous membranes pink and moist. NECK: Trachea midline. No JVD. CARDIOVASCULAR: Regular rate and rhythm. Tachycardia. No murmur appreciated. RESPIRATORY: No accessory muscle use. Clear to auscultation. Breath sounds equal bilaterally. GASTROINTESTINAL: Abdomen soft, non-tender, nondistended. Hepatic and splenic margins not palpable. MUSCULOSKELETAL: No obvious deformities. No clubbing. No cyanosis. No edema. NEUROLOGICAL: Awake and alert. No obvious cranial nerve deficits. Motor grossly within normal limits. Normal speech. PSYCHIATRIC: Appropriate mood and affect; insight and judgment normal. Data Data Last Documented VS Vital Signs Date Time Temp Pulse Resp B/P (MAP) Pulse Ox O2 Delivery O2 Flow Rate FiO2 11/26/17 22:29 89 16 74/51 (59) 97 Nasal Cannula 2.00 11/26/17 19:49 98.1 Orders Orders Electrocardiogram (11/26/17 20:00) Complete Blood Count With Diff (11/26/17 20:00) Comprehensive Metabolic Panel (11/26/17 20:00) Prothrombin Time / Inr (Pt) (11/26/17 20:00) Troponin I (11/26/17 20:00) Thyroid Stimulating Hormone (11/26/17 20:00) Lactic Acid Sepsis Protocol (11/26/17 20:00) Blood Culture (11/26/17 20:00) Chest, Single Ap (11/26/17 20:00) Blood Glucose (11/26/17 20:00) Ecg Monitoring (11/26/17 20:00) Iv Access Insert/Monitor (11/26/17 20:00) Oximetry (11/26/17 20:00) Sodium Chloride 0.9% Flush (Ns Flush) (11/26/17 20:00) Sodium Chlor 0.9% 1000 Ml Inj (Ns 1000 M (11/26/17 20:00) Piperacil-Tazo 4.5 Gm Premix (Zosyn 4.5 (11/26/17 22:15) Vancomycin Inj (Vancomycin Inj) (11/26/17 22:15) Sodium Chlor 0.9% 1000 Ml Inj (Ns 1000 M (11/26/17 22:15) Admit Order (Ed Use Only) (11/26/17 22:36) Labs Laboratory Tests Test 11/26/17 21:21 White Blood Count 23.9 TH/MM3 Red Blood Count 4.29 MIL/MM3 Hemoglobin 11.8 GM/DL Hematocrit 38.1 % Mean Corpuscular Volume 89.0 FL Mean Corpuscular Hemoglobin 27.6 PG Mean Corpuscular Hemoglobin Concent 31.0 % Red Cell Distribution Width 18.2 % Platelet Count 374 TH/MM3 Mean Platelet Volume 7.1 FL Neutrophils (%) (Auto) 86.5 % Lymphocytes (%) (Auto) 4.5 % Monocytes (%) (Auto) 6.4 % Eosinophils (%) (Auto) 2.5 % Basophils (%) (Auto) 0.1 % Neutrophils # (Auto) 20.6 TH/MM3 Lymphocytes # (Auto) 1.1 TH/MM3 Monocytes # (Auto) 1.5 TH/MM3 Eosinophils # (Auto) 0.6 TH/MM3 Basophils # (Auto) 0.0 TH/MM3 CBC Comment DIFF FINAL Differential Comment Prothrombin Time 10.7 SEC Prothromb Time International Ratio 1.1 RATIO Blood Urea Nitrogen 21 MG/DL Creatinine 5.05 MG/DL Random Glucose 143 MG/DL Total Protein 9.2 GM/DL Albumin 3.6 GM/DL Calcium Level 8.8 MG/DL Alkaline Phosphatase 71 U/L Aspartate Amino Transf (AST/SGOT) 7 U/L Alanine Aminotransferase (ALT/SGPT) 10 U/L Total Bilirubin 0.5 MG/DL Sodium Level 137 MEQ/L Potassium Level 3.5 MEQ/L Chloride Level 97 MEQ/L Carbon Dioxide Level 27.6 MEQ/L Anion Gap 12 MEQ/L Estimat Glomerular Filtration Rate 11 ML/MIN Lactic Acid Level 1.8 mmol/L Troponin I LESS THAN 0.02 NG/ML Thyroid Stimulating Hormone 3rd Gen 7.680 uIU/ML MDM Medical Decision Making Medical Screen Exam Complete: Yes Emergency Medical Condition: Yes Medical Record Reviewed: Yes Interpretation(s) Twelve-lead EKG was reviewed by me. Normal sinus rhythm, normal axis, tachycardia, nonspecific ST-T wave changes. Heart rate of 111 bpm. Differential Diagnosis Dehydration, electrolyte abnormality, sepsis, PE Narrative Course 2:38 PM awaiting for the blood test results. Patient is getting 1 L of IV fluid bolus in the meanwhile. 10:17 PM CBC shows a white count of 24,000 with a left shift. Lactic acid is within normal limits. I started her on IV vancomycin and Zosyn. Blood pressure still in the 80s after 1 L of IV fluid bolus. I've ordered a second liter of fluid bolus. Awaiting for the hospitalist to admit the patient. In my opinion patient should go to at least stepdown unit. Critical Care Narrative Aggregate critical care time was 45 minutes. Time to perform other separately billable procedures was not included in the critical care time. My time did not include minutes spent treating any other patients simultaneously or on activities that did not directly contribute to the patient's treatment. The services I provided to this patient were to treat and/or prevent clinically significant deterioration that could result in: Sepsis, hypotension I provided critical care services requiring my management, as noted below: Chart data review, documentation time, medication orders and management, vital sign assessments/reviewing monitor data, ordering and reviewing lab tests, ordering and interpreting/reviewing x-rays and diagnostic studies, care of the patient and discussion of the patient with the admitting physicians. Procedures Procedure Narrative Emergency department US guided peripheral IV was performed with patient consent. Linear probe was used in the transverse views of the peripheral vein to assist with vascular access. Left EJ was accessed successfully. EKG Prior to Arrival: No Diagnosis Primary Impression: Sepsis Qualified Codes: A41.9 - Sepsis, unspecified organism Additional Impressions: Hypotension Qualified Codes: I95.9 - Hypotension, unspecified Diabetic foot infection Admitting Information Admitting Physician Requests: Onel Sneed MD Nov 26, 2017 19:52
[2017-11-26] MEDS ORDERED: SODIUM CHLORIDE 0.9% FLUSH 10 ML FLUSH IV FLUSH PRN ×2 (20:00→22:45)
[2017-11-26] MEDS ORDERED: SODIUM CHLOR 0.9% 1000 ML INJ 1,000 ML IV SCH (20:00)
--- NOTE | 2017-11-26 20:59 | RADRPT ---
EXAM DATE/TIME: 11/26/2017 20:05 [facility] COMPARISON: CHEST SINGLE AP, June 13, 2017, 12:45. INDICATIONS : Syncope MEDICAL HISTORY : Hypertension. Renal disease, end stage. Congestive heart failure. SURGICAL HISTORY : Appendectomy. Thyroidectomy.Cholecystectomy ENCOUNTER: Initial ACUITY: 1 day PAIN SCORE: 0/10 LOCATION: chest FINDINGS: There is some mild basilar airspace disease probably atelectasis. No significant effusion. Spleen CONCLUSION: 1. Basilar airspace disease probably atelectasis. No significant effusion. Dmitry Anton MD on November 26, 2017 at 20:56 Board Certified Radiologist. This report was verified electronically.
[2017-11-26 21:28] VITALS: BP 80/47; PULSE 100; RESP 16; O2SAT 100
[2017-11-26 21:54] LABS: AUTOMATED NEUTROPHIL # 20.6 TH/MM3 (1.8-7.7); BASOPHIL % 0.1 % (0.0-2.0); EOSINOPHIL # 0.6 TH/MM3 (0-0.4); EOSINOPHIL % 2.5 % (0.0-4.0); HEMATOCRIT 38.1 % (35.0-46.0); HEMOGLOBIN 11.8 GM/DL (11.6-15.3); LYMPH % 4.5 % (9.0-44.0); LYMPHOCYTE # 1.1 TH/MM3 (1.0-4.8); MEAN CORPUSCULAR HEMOGLOBIN 27.6 PG (27.0-34.0); MEAN PLATELET VOLUME 7.1 FL (7.0-11.0); MONO % 6.4 % (0.0-8.0); MONOCYTE # 1.5 TH/MM3 (0-0.9); NEUT % 86.5 % (16.0-70.0); PLATELET COUNT 374 TH/MM3 (150-450); RED BLOOD COUNT 4.29 MIL/MM3 (4.00-5.30); RED CELL DISTRIBUTION WIDTH 18.2 % (11.6-17.2); WHITE BLOOD COUNT 23.9 TH/MM3 (4.0-11.0)
[2017-11-26] MEDS ORDERED: VANCOMYCIN INJ 1,000 MG in SODIUM CHLOR 0.9% 250 ML INJ 250 ML IV ONE (22:15)
[2017-11-26] MEDS ORDERED: PIPERACIL-TAZO 4.5 GM PREMIX 100 ML IV ONE (22:15)
[2017-11-26] MEDS ORDERED: SODIUM CHLOR 0.9% 1000 ML INJ 1,000 ML IV ONE (22:15)
[2017-11-26 22:16] LABS: ALBUMIN 3.6 GM/DL (3.4-5.0); AST (GOT) 7 U/L (15-37); BICARBONATE 27.6 MEQ/L (21.0-32.0); BLOOD UREA NITROGEN 21 MG/DL (7-18); CALCIUM 8.8 MG/DL (8.5-10.1); CHLORIDE 97 MEQ/L (98-107); CREATININE 5.05 MG/DL (0.50-1.00); GLOMERULAR FILTRATION RATE 11 ML/MIN (>89); GLUCOSE,RANDOM 143 MG/DL (74-106); SODIUM (NA) 137 MEQ/L (136-145)
[2017-11-26 22:20] LABS: INTERNATIONAL NORMALIZED RATIO 1.1 RATIO; PROTHROMBIN TIME - PATIENT 10.7 SEC (9.8-11.6)
[2017-11-26 22:27] LABS: ALKALINE PHOSPHATASE 71 U/L (45-117); ALT (GPT) 10 U/L (10-53); TOTAL BILIRUBIN ADULT 0.5 MG/DL (0.2-1.0); TOTAL PROTEIN 9.2 GM/DL (6.4-8.2); TROPONIN I LESS THAN 0.02 NG/ML (0.02-0.05)
[2017-11-26 22:29] VITALS: BP 74/51; PULSE 89; RESP 16; O2SAT 97
[2017-11-26] MEDS ORDERED: Vancomycin Consult Pharmacy 1 EA OTHER SCH (22:45)
[2017-11-26] MEDS ORDERED: NALOXONE HCL 0.4 MG/ML AMP IV PUSH PRN (22:45)
[2017-11-26] MEDS ORDERED: VANCOMYCIN 1,000 MG/NS 250 ML IV ONE ×2 (23:00)
[2017-11-27] VITALS (7 sets, daily range): BP systolic 80–112; BP diastolic 39–54; PULSE 79–95; RESP 16–20; O2SAT 95–98
--- NOTE | 2017-11-27 01:52 | HHI.HP ---
[facility] Unknown Admission Diagnosis sepsis, hypotension, diabetic foot infection Diagnoses: Travel History International Travel<30 Days: No Contact w/Intl Traveler <30 Da: No Traveled to Known Affected Are: No History of Present Illness History the patient, ER communication, and review of medical records. Patient is also known to me from her previous admission to the hospital. Patient stated that she wants to dialysis today and over there, she had an "episode". She states she was not sure what happened. But she states that she was having some dizziness. She states she had low blood pressure during dialysis. She was told that she was not acting like herself. But denies any syncope. She states she received her usual 4.5 hours dialysis session today though. She was not sure whether she was given IV fluids or not for low blood pressure. She then went home and at home what she described is that she had an anxiety attack. She states her daughter called the ambulance. When asked to clarify her anxiety attack, she describes that she was feeling dizziness and shortness of breath at that time. Denies any vomiting. But was very nauseous. Denies any chest pain/diaphoresis. She did however felt associated was about to pass out. Denies any other specific symptoms. She reports that she is mostly bedbound or wheelchair bound. She is not taking any blood thinners at home now. She denies fever at home. She has had recent podiatry surgery for her right metatarsal amputation Also known to have baseline low blood pressure for which she now takes midodrine at home. In the last hospitalization, patient was quite hypotensive although she was entirely awake alert and oriented without tachycardia. She was initially treated as septic shock and was given Solu-Cortef IV which was finished on November 15, 2017. Review of Systems Except as stated in HPI: all other systems reviewed are Neg Past Family Social History Past Medical History Diabetes. Diet controlled. Hyperlipidemia CHF COPD ESRD on hemodialysis Baseline hypotension on midodrine Hypothyroidism Anxiety/depression Neuropathy Past Surgical History AV fistula placements Cholecystectomy Parathyroidectomy Cataract removal Hysterectomy Appendectomy Right first and second toe amputations Right groin permacath placements Abdominal pertinent catheter placement and removal Dental extractions Allergies: Coded Allergies: levofloxacin (Unverified Allergy, Severe, Anaphylaxis, 09/12/17) ANAPHYLAXIS Family History Mother with diabetes and heart disease. Further with prostate cancer. Social History Used to smoke since age of [age] years old. Quit about 2 months ago. Denies any alcohol abuse or drug abuse. Lives at home with her daughter. Mostly bedbound and wheelchair-bound Physical Exam Vital Signs Vital Signs Date Time Temp Pulse Resp B/P (MAP) Pulse Ox O2 Delivery O2 Flow Rate FiO2 11/26/17 22:29 89 16 74/51 (59) 97 Nasal Cannula 2.00 11/26/17 21:28 100 16 80/47 (58) 100 Nasal Cannula 2.00 11/26/17 19:49 98.1 111 22 85/52 (63) Physical Exam GENERAL: This is morbidly obese patient , in no apparent distress. SKIN: No rashes, ecchymoses or lesions. Cool and dry. HEAD: Atraumatic. Normocephalic. No temporal or scalp tenderness. EYES: No scleral icterus. No injection or drainage. ENT: Nose without bleeding, purulent drainage or septal hematoma Airway patent. NECK: Trachea midline. No JVD. Supple, nontender, no meningeal signs. CARDIOVASCULAR: Regular rate and rhythm without murmurs, gallops, or rubs. RESPIRATORY: Clear to auscultation. Breath sounds equal bilaterally. No wheezes , rales, or rhonchi. GASTROINTESTINAL: Abdomen soft, non-tender, nondistended. No guarding. MUSCULOSKELETAL: Extremities without clubbing, cyanosis, or edema. No calf tenderness. right upper thigh femoral shiley NEUROLOGICAL: Awake and alert. Motor and sensory grossly within normal limits Normal speech. Laboratory Laboratory Tests Test 11/26/17 21:21 White Blood Count 23.9 Red Blood Count 4.29 Hemoglobin 11.8 Hematocrit 38.1 Mean Corpuscular Volume 89.0 Mean Corpuscular Hemoglobin 27.6 Mean Corpuscular Hemoglobin Concent 31.0 Red Cell Distribution Width 18.2 Platelet Count 374 Mean Platelet Volume 7.1 Neutrophils (%) (Auto) 86.5 Lymphocytes (%) (Auto) 4.5 Monocytes (%) (Auto) 6.4 Eosinophils (%) (Auto) 2.5 Basophils (%) (Auto) 0.1 Neutrophils # (Auto) 20.6 Lymphocytes # (Auto) 1.1 Monocytes # (Auto) 1.5 Eosinophils # (Auto) 0.6 Basophils # (Auto) 0.0 CBC Comment DIFF FINAL Differential Comment Prothrombin Time 10.7 Prothromb Time International Ratio 1.1 Blood Urea Nitrogen 21 Creatinine 5.05 Random Glucose 143 Total Protein 9.2 Albumin 3.6 Calcium Level 8.8 Alkaline Phosphatase 71 Aspartate Amino Transf (AST/SGOT) 7 Alanine Aminotransferase (ALT/SGPT) 10 Total Bilirubin 0.5 Sodium Level 137 Potassium Level 3.5 Chloride Level 97 Carbon Dioxide Level 27.6 Anion Gap 12 Estimat Glomerular Filtration Rate 11 Lactic Acid Level 1.8 Troponin I LESS THAN 0.02 Thyroid Stimulating Hormone 3rd Gen 7.680 Date/Time Source Procedure Growth Status 11/26/17 21:26 Blood Peripheral Aerobic Blood Culture Pending Received 11/26/17 21:26 Blood Peripheral Anaerobic Blood Culture Pending Received Result Diagram: 11/26/17212011/26/172120 Imaging Last 48 hours Impressions Chest X-Ray 11/26/171999 Signed Impressions: Service Date/Time: Sunday, November 26, 2017 20:05 - CONCLUSION: 1. Basilar airspace disease probably atelectasis. No significant effusion. Dmitry Anton MD Caprini VTE Risk Assessment Caprini VTE Risk Assessment: Mod/High Risk (score >= 2) Caprini Risk Assessment Model Point Value = 1 Point Value = 2 Point Value = 3 Point Value = 5 Age 41-60 Minor surgery BMI > 25 kg/m2 Swollen legs Varicose veins or History of unexplained or recurrent spontaneous Oral contraceptives or hormone replacement Sepsis (< 1 month) Serious lung disease, including pneumonia (< 1 month) Abnormal pulmonary function Acute myocardial infarction Congestive heart failure (< 1 month) History of inflammatory bowel disease Medical patient at bed rest Age 61-74 Arthroscopic surgery Major open surgery (> 45 min) Laparoscopic surgery (> 45 min) Malignancy Confined to bed (> 72 hours) Immobilizing plaster cast Central venous access Age >= 75 History of VTE Family history of VTE Factor V Leiden Prothrombin 29009P Lupus anticoagulant Anticardiolipin antibodies Elevated serum homocysteine Heparin-induced thrombocytopenia Other congenital or acquired thrombophilia Stroke (< 1 month) Elective arthroplasty Hip, pelvis, or leg fracture Acute spinal cord injury (< 1 month) Prophylaxis Regimen Total Risk Factor Score Risk Level Prophylaxis Regimen 0-1 Low Early ambulation 2 Moderate Order ONE of the following: *Sequential Compression Device (SCD) *Heparin 5000 units SQ BID 3-4 Higher Order ONE of the following medications: *Heparin 5000 units SQ TID *Enoxaparin/Lovenox 40 mg SQ daily (WT < 150 kg, CrCl > 30 mL/min) *Enoxaparin/Lovenox 30 mg SQ daily (WT < 150 kg, CrCl > 10-29 mL/min) *Enoxaparin/Lovenox 30 mg SQ BID (WT < 150 kg, CrCl > 30 mL/min) AND/OR *Sequential Compression Device (SCD) 5 or more Highest Order ONE of the following medications: *Heparin 5000 units SQ TID (Preferred with Epidurals) *Enoxaparin/Lovenox 40 mg SQ daily (WT < 150 kg, CrCl > 30 mL/min) *Enoxaparin/Lovenox 30 mg SQ daily (WT < 150 kg, CrCl > 10-29 mL/min) *Enoxaparin/Lovenox 30 mg SQ BID (WT < 150 kg, CrCl > 30 mL/min) AND *Sequential Compression Device (SCD) Assessment and Plan Assessment and Plan Impression: Severe sepsis- source likely decubiti vs ongoing right foot osteomyelitis Hypotension. Multifactorial. Possibly related to sepsis. Partly patient also has baseline hypotension on midodrine. She was on Solu-Cortef to November 15 while in hospital. Near-syncopal episodes. Secondary to hypotensive episodes/vasovagal. Recent hospitalization from November 05, 2017 to November 19, 2017. Managed for septic shock. Source of stomatitis of the right foot. Status post transmetatarsal amputation on November 08, 2017. Was treated with vancomycin, cefepime, Micafungi per ID recommendations until cultures were negative. Unsure whether patient is still on antibiotics as outpatient. Right Achilles tendon exposure. Was evaluated by vascular surgeon here. Conservative management. Diabetes. Diet controlled. Hyperlipidemia CHF COPD ESRD on hemodialysis Baseline hypotension on midodrine Hypothyroidism Anxiety/depression Neuropathy Plan: Patient received 2 L normal saline bolus in ER. At the time of my exam, patient's blood pressure is 112/80. Patient's heart rate is 83. She is asymptomatic. Therefore will watch out with fluid resuscitation in a patient with history of ESRD and CHF. If needed, will start patient on Solu-Cortef for relative adrenal insufficiency. Otherwise resume her midodrine dose. We'll follow blood culture results. Wound care consult. Wound cultures from sacral decubiti Podiatry consult for further workup of possible ongoing osteomyelitis. Would obtain MRI of the foot with IV contrast. Patient will be dialyzed within 24 hours from administration of IV contrast. ID consult At this point, continue vancomycin at this point, continue vancomycin/Zosyn. Prior cultures negative. Pathology report from November 09, 2017 revealed gangrenous necrosis and focal acute osteomyelitis. Patient is saturating 96% on 2 L nasal cannula which is her home oxygen. Not suspecting pulmonary embolism as the cause of hypotension. Resume her home meds. DVT prophylaxis with heparin. GI prophylaxis and pantoprazole. Discussed Condition With patient, ER , nursing staff Physician Certification 2 Midnight Certification Type: Admission for Inpatient Services Order for Inpatient Services The services are ordered in accordance with Medicare regulations or non- Medicare payer requirements, as applicable. In the case of services not specified as inpatient-only, they are appropriately provided as inpatient services in accordance with the 2-midnight benchmark. Estimated LOS (days): 4 days is the estimated time the patient will need to remain in the hospital, assuming treatment plan goals are met and no additional complications. Post-Hospital Plan: Warren Mohr MD Nov 27, 2017 01:52
[2017-11-27] MEDS ORDERED: RESP: ALBUTEROL 2.5 MG/IPRATROPIUM 0.5 MG NEB (PRN) NEB (02:30)
[2017-11-27] MEDS ORDERED: PIPERACIL-TAZO 4.5 GM PREMIX 100 ML IV SCH (05:00)
[2017-11-27] MEDS: PIPERACIL-TAZO 2.25 GM PREMIX 50 ML IV SCH ×3 (05:53→22:27)
[2017-11-27 07:16] LABS: AUTOMATED NEUTROPHIL # 14.1 TH/MM3 (1.8-7.7); BASOPHIL % 0.3 % (0.0-2.0); EOSINOPHIL # 0.7 TH/MM3 (0-0.4); EOSINOPHIL % 4.1 % (0.0-4.0); HEMOGLOBIN 11.4 GM/DL (11.6-15.3); LYMPH % 4.6 % (9.0-44.0); LYMPHOCYTE # 0.8 TH/MM3 (1.0-4.8); MEAN CELL VOLUME 91.9 FL (80.0-100.0); MEAN CORPUSCULAR HEMOGLOBIN 28.3 PG (27.0-34.0); MEAN CORPUSCULAR HGB CONC 30.8 % (32.0-36.0); MEAN PLATELET VOLUME 7.2 FL (7.0-11.0); MONOCYTE # 1.2 TH/MM3 (0-0.9); PLATELET COUNT 299 TH/MM3 (150-450); RED BLOOD COUNT 4.02 MIL/MM3 (4.00-5.30); WHITE BLOOD COUNT 16.8 TH/MM3 (4.0-11.0)
[2017-11-27 07:55] LABS: BICARBONATE 24.8 MEQ/L (21.0-32.0); CREATININE 5.48 MG/DL (0.50-1.00)
--- NOTE | 2017-11-27 08:45 | EKG ---
Date Performed: 11/26/2017 Time Performed: 19:50:48 PTAGE: 57 years EKG: SINUS TACHYCARDIA LOW QRS VOLTAGE IN PRECORDIAL LEADS NONSPECIFIC ST/T CHANGES ABNORMAL ECG PREVIOUS TRACING : 09/12/2017 19.09 No significant change from previous tracing noted. DOCTOR: Vineet Villa Interpretating Date/Time 11/27/2017 08:33:59
[2017-11-27] MEDS: ASPIRIN EC 81 MG TABEC PO SCH (08:51)
[2017-11-27] MEDS: CALCIUM CARBONATE 1.25 GM (CA 500 MG) TAB PO SCH ×3 (08:51→22:28)
[2017-11-27] MEDS: PANTOPRAZOLE SOD 40 MG DELAYED RELEASE TAB PO SCH (08:51)
[2017-11-27] MEDS: buPROPion HCL 150 MG SUSTAINED RELEASE TAB PO SCH ×2 (08:51→22:28)
[2017-11-27] MEDS: LACTOBACILLUS ACIDOPHILUS TAB PO SCH ×3 (08:51→19:12)
[2017-11-27] MEDS ORDERED: MIDODRINE 5 MG TAB PO SCH (09:00)
[2017-11-27] MEDS: SODIUM CHLORIDE 0.9% FLUSH 10 ML FLUSH IV FLUSH SCH ×2 (09:00→22:30)
[2017-11-27] MEDS ORDERED: VANCOMYCIN 1,000 MG/NS 250 ML IV ONE ×2 (12:00)
[2017-11-27] MEDS: CYCLOBENZAPRINE HCL 10 MG TAB PO PRN (12:02)
[2017-11-27] MEDS ORDERED: SODIUM CHLOR 0.9% 1000 ML INJ 1,000 ML IV PRN (12:46)
[2017-11-27] MEDS ORDERED: SODIUM CHLOR 0.9% 1000 ML INJ 1,000 ML OTHER PRN ×2 (12:46)
[2017-11-27] MEDS ORDERED: SODIUM CHLORIDE 0.9% FLUSH 10 ML FLUSH IV FLUSH PRN (13:00)
[2017-11-27] MEDS ORDERED: ACETAMINOPHEN 325 MG TAB PO PRN (13:00)
[2017-11-27] MEDS ORDERED: HEPARIN SODIUM - IV 10,000 UNITS/10 ML VIAL PRN (13:00)
[2017-11-27] MEDS ORDERED: GELATIN 12 MM/7 MM FOAM TOP PRN (13:00)
[2017-11-27] MEDS ORDERED: MANNITOL 12.5 GM/50 ML VIAL IV PRN (13:00)
[2017-11-27] MEDS ORDERED: ONDANSETRON HCL 4 MG/2 ML VIAL IV PUSH PRN (13:00)
[2017-11-27] MEDS ORDERED: cloNIDine HCL 0.1 MG TAB PO PRN (13:00)
[2017-11-27] MEDS ORDERED: diphenhydrAMINE HCL 25 MG CAP PO PRN (13:00)
[2017-11-27] MEDS ORDERED: HEPARIN SODIUM - IV 10,000 UNITS/10 ML VIAL IV FLUSH PRN (13:00)
[2017-11-27] MEDS ORDERED: NITROGLYCERIN 0.4 MG SL 25 TABS/BTL SL PRN (13:00)
--- NOTE | 2017-11-27 13:07 | PD.CONS ---
HPI Service Nephrology Consult Requested By Dr. Yuan Reason for Consult ESRD Primary Care Physician Unknown History of Present Illness Patient is a 57-year-old female with history of end-stage renal disease, hypertension, diabetic infection and osteomyelitis status post amputation of the right toes, she had her dialysis yesterday and said her blood pressure was too low and she felt dizzy and came to the emergency, patient had been given 2 L of fluid and blood pressure is stable, she takes midodrine for low blood pressure as outpatient. Her dialysis days are Sunday, Sunday and Sunday Review of Systems Constitutional: COMPLAINS OF: Fatigue Musculoskeletal: COMPLAINS OF: Joint pain, Muscle aches, Stiffness, Joint Swelling, Back pain Neurologic: COMPLAINS OF: Abnormal gait Past Family Social History Allergies: Coded Allergies: levofloxacin (Unverified Allergy, Severe, Anaphylaxis, 09/12/17) ANAPHYLAXIS Past Medical History End-stage renal disease on hemodialysis Morbid obesity Diabetes Hypertension low BP Osteoarthritis of right foot Hyperlipidemia Vascular issues Past Surgical History parathyroidectomy Tenckhoff catheter placement Multiple AV fistulas and grafts Right foot toe amputation Partial Hysterectomy Appendectomy Reported Medications Reported Meds & Active Scripts Active Hydrocodone-Acetamin 5-325 mg (Hydrocodone/Acetaminophen) 5 Mg-325 Mg Tablet 1 Tab PO Q4H PRN Flexeril (Cyclobenzaprine HCl) 10 Mg Tab 10 Mg PO BID PRN Aspirin EC (Aspirin) 81 Mg Tabdr 81 Mg PO DAILY Reported Combivent Respimat Inh (Ipratropium-Albuterol Inh) 20-100 Assisted/Act Aero 2 Puff INH BID Gabapentin 300 Mg Cap 300 Mg PO HS Trazodone (Trazodone HCl) 100 Mg Tablet 100 Mg PO HS Calcium Carbonate 500 Mg Calcium (1250 Mg) Tab 2,000 Mg PO Q8HR 1,250 mg calcium carbonate (500 mg elemental calcium) Midodrine 10 Mg Tab 10 Mg PO DAILY Bupropion HCl ER 24 HR (Bupropion HCl) 150 Mg Tab 300 Mg PO DAILY Atorvastatin (Atorvastatin Calcium) 10 Mg Tab 10 Mg PO HS Pantoprazole (Pantoprazole Sodium) 40 Mg Tab 40 Mg PO DAILY Active Ordered Medications Current Medications Medications (Trade) Dose Ordered Sig/Mary Grace Route Start Time Stop Time Status Last Admin (NS Flush) 2 ml UNSCH PRN IV FLUSH 11/26/17 22:45 (NS Flush) 2 ml BID IV FLUSH 11/27/17 09:00 (Narcan Inj) 0.4 mg UNSCH PRN IV PUSH 11/26/17 22:45 Pharmacy Profile Note 0 ml @ 0 mls/hr UNSCH OTHER 11/26/17 22:45 (Lactinex) 1 tab TID PO 11/27/17 09:00 11/27/17 08:51 Piperacillin Sod/ Tazobactam Sod 50 ml @ 100 mls/hr Q8H IV 11/27/17 06:00 11/27/17 05:53 (Ecotrin Ec) 81 mg DAILY PO 11/27/17 09:00 11/27/17 08:51 (Lipitor) 10 mg HS PO 11/27/17 21:00 (Wellbutrin Sr) 150 mg BID PO 11/27/17 09:00 11/27/17 08:51 (Oscal) 500 mg Q8HR PO 11/27/17 06:00 11/27/17 08:51 (Flexeril) 10 mg BID PRN PO 11/27/17 02:30 11/27/17 12:02 (Neurontin) 300 mg HS PO 11/27/17 21:00 ([place] 5-325 Mg) 1 tab Q4H PRN PO 11/27/17 02:30 (Proamatine) 10 mg DAILY PO 11/27/17 09:00 11/27/17 08:51 (Protonix) 40 mg DAILY PO 11/27/17 09:00 11/27/17 08:51 (Desyrel) 100 mg HS PO 11/27/17 21:00 (Duoneb Neb) 1 ampule Q4HR NEB PRN NEB 11/27/17 02:30 Vancomycin HCl 1000 mg/Sodium Chloride 250 ml @ 250 mls/hr ONCE ONCE IV 11/27/17 12:00 11/27/17 12:59 11/27/17 11:57 Sodium Chloride 1,000 ml @ 0 mls/hr Q0M PRN OTHER 11/27/17 12:46 (Heparin Inj) 8,000 units UNSCH PRN IV FLUSH 11/27/17 13:00 Sodium Chloride 1,000 ml @ 200 mls/hr Q5H PRN IV 11/27/17 12:46 Sodium Chloride 1,000 ml @ 0 mls/hr Q0M PRN OTHER 11/27/17 12:46 UNV (Mannitol Inj) 12.5 gm UNSCH PRN IV 11/27/17 13:00 UNV Albumin Human 100 ml @ 60 mls/hr UNSCH PRN IV 11/27/17 13:00 UNV (NS Flush) 5 ml UNSCH PRN IV FLUSH 11/27/17 13:00 UNV (Heparin Inj) UNSCH PRN .XX 11/27/17 13:00 UNV (Gentamicin Inj) 20 mg UNSCH PRN OTHER 11/27/17 13:00 UNV (Zofran Inj) 4 mg UNSCH PRN IV PUSH 11/27/17 13:00 UNV (Tylenol) 650 mg UNSCH PRN PO 11/27/17 13:00 UNV (Benadryl) 25 mg UNSCH PRN PO 11/27/17 13:00 UNV (Nitrostat Sl) 0.4 mg UNSCH PRN SL 11/27/17 13:00 UNV (Catapres) 0.1 mg UNSCH PRN PO 11/27/17 13:00 UNV (Gelfoam 12 Mm/7 Mm Top) 1 foam UNSCH PRN TOP 11/27/17 13:00 UNV Family History Noncontributory Social History Denies smoking or alcohol Physical Exam Vital Signs Vital Signs Date Time Temp Pulse Resp B/P (MAP) Pulse Ox O2 Delivery O2 Flow Rate FiO2 11/27/17 11:23 86 18 96/54 (68) 97 Nasal Cannula 2.00 11/27/17 07:45 79 18 98/43 (61) 98 Nasal Cannula 2.00 11/27/17 01:39 95 16 112/39 (63) 96 Nasal Cannula 2.00 11/26/17 22:29 89 16 74/51 (59) 97 Nasal Cannula 2.00 11/26/17 21:28 100 16 80/47 (58) 100 Nasal Cannula 2.00 11/26/17 19:49 98.1 111 22 85/52 (63) Physical Exam GENERAL: Well-nourished, well-developed patient. SKIN: Warm and dry. HEAD: Normocephalic. EYES: No scleral icterus. No injection or drainage. NECK: Supple, trachea midline. No JVD or lymphadenopathy. CARDIOVASCULAR: Regular rate and rhythm without murmurs, gallops, or rubs. RESPIRATORY: Breath sounds equal bilaterally. No accessory muscle use. GASTROINTESTINAL: Abdomen soft, non-tender, nondistended. EXTREMITIES: No cyanosis, or edema. Right foot has a dressing NEUROLOGICAL: Awake, alert, and oriented x 3. Non-focal. Laboratory Laboratory Tests Test 11/26/17 21:21 11/27/17 06:27 White Blood Count 23.9 16.8 Red Blood Count 4.29 4.02 Hemoglobin 11.8 11.4 Hematocrit 38.1 37.0 Mean Corpuscular Volume 89.0 91.9 Mean Corpuscular Hemoglobin 27.6 28.3 Mean Corpuscular Hemoglobin Concent 31.0 30.8 Red Cell Distribution Width 18.2 18.0 Platelet Count 374 299 Mean Platelet Volume 7.1 7.2 Neutrophils (%) (Auto) 86.5 84.0 Lymphocytes (%) (Auto) 4.5 4.6 Monocytes (%) (Auto) 6.4 7.0 Eosinophils (%) (Auto) 2.5 4.1 Basophils (%) (Auto) 0.1 0.3 Neutrophils # (Auto) 20.6 14.1 Lymphocytes # (Auto) 1.1 0.8 Monocytes # (Auto) 1.5 1.2 Eosinophils # (Auto) 0.6 0.7 Basophils # (Auto) 0.0 0.0 CBC Comment DIFF FINAL DIFF FINAL Differential Comment Prothrombin Time 10.7 Prothromb Time International Ratio 1.1 Blood Urea Nitrogen 21 22 Creatinine 5.05 5.48 Random Glucose 143 104 Total Protein 9.2 Albumin 3.6 Calcium Level 8.8 8.0 Alkaline Phosphatase 71 Aspartate Amino Transf (AST/SGOT) 7 Alanine Aminotransferase (ALT/SGPT) 10 Total Bilirubin 0.5 Sodium Level 137 140 Potassium Level 3.5 3.8 Chloride Level 97 103 Carbon Dioxide Level 27.6 24.8 Anion Gap 12 12 Estimat Glomerular Filtration Rate 11 10 Lactic Acid Level 1.8 Troponin I LESS THAN 0.02 Thyroid Stimulating Hormone 3rd Gen 7.680 Date/Time Source Procedure Growth Status 11/26/17 21:26 Blood Peripheral Aerobic Blood Culture - Preliminary NO GROWTH IN 1 DAY Resulted 11/26/17 21:26 Blood Peripheral Anaerobic Blood Culture - Preliminary NO GROWTH IN 1 DAY Resulted 11/27/17 09:00 Wound Buttock Gram Stain - Final Resulted 11/27/17 09:00 Wound Buttock Wound Culture Pending Resulted Result Diagram: 11/27/1727 11/27/17626 Imaging Last Impressions Chest X-Ray 11/26/171999 Signed Impressions: Service Date/Time: Sunday, November 26, 2017 20:05 - CONCLUSION: 1. Basilar airspace disease probably atelectasis. No significant effusion. Dmitry Anton MD Assessment and Plan Problem List: (1) ESRD (end stage renal disease) ICD Codes: N18.6 - End-stage renal disease Status: Chronic Plan: Hemodialysis on Sunday Midodrine increased to 10 mg 3 times a day Continue to monitor blood pressure (2) Hypotension ICD Codes: I95.9 - Hypotension Status: Resolved Plan: Check cortisol level in a.m. (3) Osteomyelitis ICD Codes: M86.9 - Osteomyelitis, unspecified Plan: Continue with vancomycin Problem Qualifiers (1) Hypotension: Qualified Codes: I95.9 - Hypotension, unspecified Frank Villagran MD Nov 27, 2017 13:07
--- NOTE | 2017-11-27 15:15 | HHI.PR ---
Addendum to Inpatient Note Additional Information Patient seen and examined Continue with current treatment Goyo Barney MD Nov 27, 2017 15:15
[2017-11-27] MEDS: MIDODRINE 5 MG TAB PO SCH ×2 (15:32→19:12)
--- NOTE | 2017-11-27 15:56 | HHI.PR ---
Addendum to Inpatient Note Additional Information seen around 1400 full note to follow Steffany Nicolas MD Nov 27, 2017 15:56
--- NOTE | 2017-11-27 15:57 | PD.ID.CON ---
History of Present Illness Service ID Consult Requested By Dr Yuan Reason for Consult severe sepsis Primary Care Physician Unknown Diagnoses: History of Present Illness Pt is known to me from several preevious admissions She has multiple medical problems including morbid obesity and DM, ESRD/on HD she is sp R transmetatarsal amputation 2/2 osteomyelitis 2/2 streptococcus She was admitted recently 2/2 suspected sepsis and discharged without establishing the cause She presented again with low blood pressure and leukocytosis od 23 K today after HD Blood clx negative @ 1 day 2/2 MRI of the foot not cw osteomyelitis Pt has HD access problems and has a femoral access for a while Review of Systems ROS Limitations: Poor Historian Except as stated in HPI: all other systems reviewed are Neg Past Family Social History Allergies: Coded Allergies: levofloxacin (Unverified Allergy, Severe, Anaphylaxis, 09/12/17) ANAPHYLAXIS Past Medical History ESRD on HD MWF hypotension on midodrine diet-controlled diabetes CHF COPD hypothyroidism hyperlipidemia anxiety depression hypocalcemia neuropathy Past Surgical History Nonfunctioning AV fistula Cholecystectomy Parathyroidectomy Cataract removal Hysterectomy Appendectomy Right first and second toe amputations Recent right groin permacath placement abdominal peritoneal catheter placement/removed Dental extractions Active Ordered Medications Medications where reviewed in EMR Antibiotics Include: zosyn vancomycin Family History reviewdNon-Contributory. Social History No Tobacco. No ETOH. No Illicit Drugs. Physical Exam Vital Signs Vital Signs Date Time Temp Pulse Resp B/P (MAP) Pulse Ox O2 Delivery O2 Flow Rate FiO2 11/27/17 15:21 94 20 80/42 (55) 95 Nasal Cannula 2.00 11/27/17 11:23 86 18 96/54 (68) 97 Nasal Cannula 2.00 11/27/17 07:45 79 18 98/43 (61) 98 Nasal Cannula 2.00 11/27/17 01:39 95 16 112/39 (63) 96 Nasal Cannula 2.00 11/26/17 22:29 89 16 74/51 (59) 97 Nasal Cannula 2.00 11/26/17 21:28 100 16 80/47 (58) 100 Nasal Cannula 2.00 11/26/17 19:49 98.1 111 22 85/52 (63) Physical Exam CONSTITUTIONAL/GENERAL: This is a morbidly obese female patient, in no apparent distress. TUBES/LINES/DRAINS: R femoral tunneled catheter for HD access SKIN: No jaundice, rashes, . Skin temperature appropriate. Not diaphoretic. Tender small 2 stage b/l buttock ulcerations, clean based no edema or erythema, tender to palpation HEAD: Atraumatic. Normocephalic. EYES: Pupils equal and round and reactive. Extraocular motions intact. No scleral icterus. No injection or drainage. Fundi not examined. ENT: Hearing grossly normal. Nose without bleeding or purulent drainage. Throat without visible erythema, exudates, masses, or lesions. NECK: Trachea midline. Supple, nontender. No palpable thyroid enlargement or nodularity. CARDIOVASCULAR: Regular rate and rhythm without murmurs, gallops, or rubs. No JVD. Peripheral pulses symmetric. RESPIRATORY/CHEST: Symmetric, unlabored respirations. Clear to auscultation. Breath sounds equal bilaterally. No wheezes, rales, or rhonchi. GASTROINTESTINAL: Abdomen soft, non-tender, nondistended. No hepato-splenomegaly , or palpable masses. No guarding. Bowel sounds present. GENITOURINARY: Without palpable bladder distension. MUSCULOSKELETAL: Extremities without clubbing, cyanosis, or edema. No joint tenderness or effusion noted. No calf tenderness. No mottling or clubbing. Inciison of R foot is clean, well approximated with stitches in place, no drainage Tender and mildly swollen R wrist LYMPHATICS: No palpable cervical or supraclavicular adenopathy. NEUROLOGICAL: Awake and alert. Motor and sensory grossly within normal limits. Follows commands. Clear speech. Moves all extremities. PSYCHIATRIC: anxious, easily upset Laboratory Laboratory Tests Test 11/26/17 21:21 11/27/17 06:27 White Blood Count 23.9 16.8 Red Blood Count 4.29 4.02 Hemoglobin 11.8 11.4 Hematocrit 38.1 37.0 Mean Corpuscular Volume 89.0 91.9 Mean Corpuscular Hemoglobin 27.6 28.3 Mean Corpuscular Hemoglobin Concent 31.0 30.8 Red Cell Distribution Width 18.2 18.0 Platelet Count 374 299 Mean Platelet Volume 7.1 7.2 Neutrophils (%) (Auto) 86.5 84.0 Lymphocytes (%) (Auto) 4.5 4.6 Monocytes (%) (Auto) 6.4 7.0 Eosinophils (%) (Auto) 2.5 4.1 Basophils (%) (Auto) 0.1 0.3 Neutrophils # (Auto) 20.6 14.1 Lymphocytes # (Auto) 1.1 0.8 Monocytes # (Auto) 1.5 1.2 Eosinophils # (Auto) 0.6 0.7 Basophils # (Auto) 0.0 0.0 CBC Comment DIFF FINAL DIFF FINAL Differential Comment Prothrombin Time 10.7 Prothromb Time International Ratio 1.1 Blood Urea Nitrogen 21 22 Creatinine 5.05 5.48 Random Glucose 143 104 Total Protein 9.2 Albumin 3.6 Calcium Level 8.8 8.0 Alkaline Phosphatase 71 Aspartate Amino Transf (AST/SGOT) 7 Alanine Aminotransferase (ALT/SGPT) 10 Total Bilirubin 0.5 Sodium Level 137 140 Potassium Level 3.5 3.8 Chloride Level 97 103 Carbon Dioxide Level 27.6 24.8 Anion Gap 12 12 Estimat Glomerular Filtration Rate 11 10 Lactic Acid Level 1.8 Troponin I LESS THAN 0.02 Thyroid Stimulating Hormone 3rd Gen 7.680 Date/Time Source Procedure Growth Status 11/26/17 21:26 Blood Peripheral Aerobic Blood Culture - Preliminary NO GROWTH IN 1 DAY Resulted 11/26/17 21:26 Blood Peripheral Anaerobic Blood Culture - Preliminary NO GROWTH IN 1 DAY Resulted 11/27/17 09:00 Wound Buttock Gram Stain - Final Resulted 11/27/17 09:00 Wound Buttock Wound Culture Pending Resulted Result Diagram: 11/27/17 0627 11/27/17 0627 Imaging Last Impressions Foot MRI 11/27/17 0000 Signed Impressions: Service Date/Time: Monday, November 27, 2017 16:25 - CONCLUSION: 1. There is no evidence to suggest osteomyelitis on the bony structures visualized. 2. There is a cutaneous ulcer directly adjacent to the distal Achilles tendon which appears to be grossly intact. Alireza Lance MD Chest X-Ray 11/26/171999 Signed Impressions: Service Date/Time: Sunday, November 26, 2017 20:05 - CONCLUSION: 1. Basilar airspace disease probably atelectasis. No significant effusion. Dmitry Anton MD Assessment and Plan Assessment and Plan Pt with suspected sepsis I doubt that source is the foot and/or buttock wounds ? HD access the source CXR sugg of PNA Cont zosyn and vancomycin fu blood clx Steffany Nicolas MD Nov 27, 2017 15:57
--- NOTE | 2017-11-27 16:20 | PD.WCN.NOT ---
Wound Consult Description: Wound consult ordered by for sacral wound Communicated with: Yue MUSA, Recommendation: 1. Reposition patient every 2 hours for comfort and offloading. 2. Cleanse bilateral inner buttocks with normal saline pat dry 3. Apply 50/50 mix of Silvadene and lidocaine 4% to open areas BID 4. Follow up with out patient wound care Additional Information: Patient was seen today by radio script writer and Yue MUSA for sacral wounds.Patient alert and oriented x3 in bed .Patient required min assistance to reposition to right side.Dressing removed from sacral/buttocks area to reveal mixed etiology of moisture /friction/ denuded and 1 full thickness wound on bilateral inner buttocks.Wounds have improved from last hospital visit.Right inner buttocks has a full thickness wound measuring ~1.5cm x 1.0cm wound base is 50% loosely adhered yellow slough with 50% red non granular tissue.Periwound is intact and even with wound base no drainage or odor present.~6 partial thickness denuded areas scattered on bilateral inner buttocks wound bases are 100% pink tissue with scant bloody drainage noted to prior dressing.Inner buttocks cleansed with normal saline pat dry skin prep applied to periwounds ,Calazime cream applied to open areas till lidocaine and Silvadene available.Patient tolerated wound care well.Patient was repositioned on right side with 2 pillows for comfort and offloading.Dressing changed to Left foot due to dislodgement Achilles tendon cleansed with normal saline Xeroform applied to tendon and covered with dry dressing secured with rolled gauze /tape. [facility]clean [facility] Nov 27, 2017 16:20
--- NOTE | 2017-11-27 17:14 | RADRPT ---
EXAM DATE/TIME: 11/27/2017 16:25 [facility] COMPARISON: MRI FOOT RIGHT W/O CONTRAST, November 06, 2017, 12:57. INDICATIONS : Osteomyelitis. Right foot heel pain. MEDICAL HISTORY : Hypertension. Cardiovascular disease Congestive heart failure. Dialysis, COPD SURGICAL HISTORY : Thyroidectomy. Hysterectomy. Appendectomy. Cholecystectomy, Rt foot toe amputation, Right groin perma cath. ENCOUNTER: Initial ACUITY: 1 day PAIN SCORE: 4/10 LOCATION: Right heel TECHNIQUE: Multiplanar, multisequence MRI examination was performed without contrast. FINDINGS: BONE/CARTILAGE: Bone marrow signal is homogeneous. Articular cartilage signal is within normal limits. TENDONS: All of the visualized tendons are intact. There is a cutaneous ulcer directly adjacent to the distal Achilles tendon just before its insertion on the calcaneus. The Achilles tendon appears to be intact. There are some soft tissue changes associated with the skin at the level of the cutaneous ulcer. MISCELLANEOUS: No definite loculated fluid collections are seen the soft tissues to suggest a focal soft tissue absc ess. CONCLUSION: 1. There is no evidence to suggest osteomyelitis on the bony structures visualized. 2. There is a cutaneous ulcer directly adjacent to the distal Achilles tendon which appears to be cristo ssly intact. Alireza Lance MD on November 27, 2017 at 17:06 Board Certified Radiologist. This report was verified electronically.
--- NOTE | 2017-11-27 21:36 | PD.CONS ---
History of Present Illness Service Foot and Ankle Surgery/Podiatry Consult Requested By Reason for Consult Right lower extremity s/p TMA with posterior ankle ulcer with Achilles tendon exposed Primary Care Physician Unknown Diagnoses: History of Present Illness Podiatry consulted for this 57-year-old female with past medical history of diabetes, hyperlipidemia, CHF, COPD, end-stage renal disease on hemodialysis, baseline hypertension, hypothyroidism, anxiety/depression, and neuropathy. Patient is well known to podiatry service as she has had previous TMA performed at last visit with posterior ankle debridement which had exposed Achilles tendon. Patient states she was unable to make it to the office and was feeling sick therefore she presented to the emergency department. Patient denies any nausea vomiting fevers chills at this time. States she has been at home and she has been taking care of dressing changes. Review of Systems Constitutional: DENIES: Fever Eyes: DENIES: Blurred vision Respiratory: DENIES: Cough, Shortness of breath Cardiovascular: DENIES: Chest pain, Lower Extremity Edema Gastrointestinal: DENIES: Nausea, Vomiting Musculoskeletal: DENIES: Joint pain Psychiatric: DENIES: Anxiety, Confusion Past Family Social History Allergies: Coded Allergies: levofloxacin (Unverified Allergy, Severe, Anaphylaxis, 09/12/17) ANAPHYLAXIS Past Medical History as reported in HPI Active Ordered Medications Current Medications Medications (Trade) Dose Ordered Sig/Mary Grace Route Start Time Stop Time Status Last Admin (NS Flush) 2 ml UNSCH PRN IV FLUSH 11/26/17 22:45 (NS Flush) 2 ml BID IV FLUSH 11/27/17 09:00 (Narcan Inj) 0.4 mg UNSCH PRN IV PUSH 11/26/17 22:45 Pharmacy Profile Note 0 ml @ 0 mls/hr UNSCH OTHER 11/26/17 22:45 (Lactinex) 1 tab TID PO 11/27/17 09:00 11/27/17 19:12 Piperacillin Sod/ Tazobactam Sod 50 ml @ 100 mls/hr Q8H IV 11/27/17 06:00 11/27/17 15:32 (Ecotrin Ec) 81 mg DAILY PO 11/27/17 09:00 11/27/17 08:51 (Lipitor) 10 mg HS PO 11/27/17 21:00 (Wellbutrin Sr) 150 mg BID PO 11/27/17 09:00 11/27/17 08:51 (Oscal) 500 mg Q8HR PO 11/27/17 06:00 11/27/17 15:32 (Flexeril) 10 mg BID PRN PO 11/27/17 02:30 11/27/17 12:02 (Neurontin) 300 mg HS PO 11/27/17 21:00 ([place] 5-325 Mg) 1 tab Q4H PRN PO 11/27/17 02:30 (Protonix) 40 mg DAILY PO 11/27/17 09:00 11/27/17 08:51 (Desyrel) 100 mg HS PO 11/27/17 21:00 (Duoneb Neb) 1 ampule Q4HR NEB PRN NEB 11/27/17 02:30 Sodium Chloride 1,000 ml @ 0 mls/hr Q0M PRN OTHER 11/27/17 12:46 (Heparin Inj) 8,000 units UNSCH PRN IV FLUSH 11/27/17 13:00 Sodium Chloride 1,000 ml @ 200 mls/hr Q5H PRN IV 11/27/17 12:46 Sodium Chloride 1,000 ml @ 0 mls/hr Q0M PRN OTHER 11/27/17 12:46 (Mannitol Inj) 12.5 gm UNSCH PRN IV 11/27/17 13:00 Albumin Human 100 ml @ 60 mls/hr UNSCH PRN IV 11/27/17 13:00 (NS Flush) 5 ml UNSCH PRN IV FLUSH 11/27/17 13:00 (Heparin Inj) UNSCH PRN .XX 11/27/17 13:00 (Gentamicin Inj) 20 mg UNSCH PRN OTHER 11/27/17 13:00 (Zofran Inj) 4 mg UNSCH PRN IV PUSH 11/27/17 13:00 (Tylenol) 650 mg UNSCH PRN PO 11/27/17 13:00 (Benadryl) 25 mg UNSCH PRN PO 11/27/17 13:00 (Nitrostat Sl) 0.4 mg UNSCH PRN SL 11/27/17 13:00 (Catapres) 0.1 mg UNSCH PRN PO 11/27/17 13:00 (Gelfoam 12 Mm/7 Mm Top) 1 foam UNSCH PRN TOP 11/27/17 13:00 (Proamatine) 10 mg TID PO 11/27/17 13:00 11/27/17 19:12 Physical Exam Vital Signs Vital Signs Date Time Temp Pulse Resp B/P (MAP) Pulse Ox O2 Delivery O2 Flow Rate FiO2 11/27/17 19:52 80 18 93/46 (62) 97 Nasal Cannula 2.00 11/27/17 18:34 Nasal Cannula 2.00 11/27/17 18:18 80 20 88/51 (63) 97 Nasal Cannula 2.00 11/27/17 15:21 94 20 80/42 (55) 95 Nasal Cannula 2.00 11/27/17 11:23 86 18 96/54 (68) 97 Nasal Cannula 2.00 11/27/17 07:45 79 18 98/43 (61) 98 Nasal Cannula 2.00 11/27/17 01:39 95 16 112/39 (63) 96 Nasal Cannula 2.00 11/26/17 22:29 89 16 74/51 (59) 97 Nasal Cannula 2.00 11/26/17 21:28 100 16 80/47 (58) 100 Nasal Cannula 2.00 Physical Exam GENERAL: This is a well-nourished, well-developed patient, in no apparent distress. SKIN: HEAD: Atraumatic. EYES: Pupils equal round and reactive. ENT: Airway patent. NECK: Trachea midline. RESPIRATORY: Nonlabored breathing. MUSCULOSKELETAL:. Negative Homans sign bilaterally. NEUROLOGICAL: Awake and alert. Normal speech. Lower extremity physical exam: Vascular: Dorsalis pedis nonpalpable, posterior tibial nonpalpable. Capillary refill time within normal limits to TMA site right foot. Edema present mildly right foot. Neuro: Gross sensation intact to bilateral lower extremity. Pinpoint sensation decreased. No hyperalgesia noted to bilateral lower extremity Dermatology: Normal temperature and turgor to bilateral lower extremity. Right TMA site with sutures intact and skin well coapted no drainage noted. Right posterior ankle ulcer with Achilles tendon exposed, no surrounding erythema, no purulent, no acute signs of infection. Musculoskeletal: Tender to palpation to right posterior ankle ulcer. Laboratory Laboratory Tests Test 11/27/17 06:27 White Blood Count 16.8 Red Blood Count 4.02 Hemoglobin 11.4 Hematocrit 37.0 Mean Corpuscular Volume 91.9 Mean Corpuscular Hemoglobin 28.3 Mean Corpuscular Hemoglobin Concent 30.8 Red Cell Distribution Width 18.0 Platelet Count 299 Mean Platelet Volume 7.2 Neutrophils (%) (Auto) 84.0 Lymphocytes (%) (Auto) 4.6 Monocytes (%) (Auto) 7.0 Eosinophils (%) (Auto) 4.1 Basophils (%) (Auto) 0.3 Neutrophils # (Auto) 14.1 Lymphocytes # (Auto) 0.8 Monocytes # (Auto) 1.2 Eosinophils # (Auto) 0.7 Basophils # (Auto) 0.0 CBC Comment DIFF FINAL Differential Comment Blood Urea Nitrogen 22 Creatinine 5.48 Random Glucose 104 Calcium Level 8.0 Sodium Level 140 Potassium Level 3.8 Chloride Level 103 Carbon Dioxide Level 24.8 Anion Gap 12 Estimat Glomerular Filtration Rate 10 Date/Time Source Procedure Growth Status 11/26/17 21:26 Blood Peripheral Aerobic Blood Culture - Preliminary NO GROWTH IN 1 DAY Resulted 11/26/17 21:26 Blood Peripheral Anaerobic Blood Culture - Preliminary NO GROWTH IN 1 DAY Resulted 11/27/17 09:00 Wound Buttock Gram Stain - Final Resulted 11/27/17 09:00 Wound Buttock Wound Culture Pending Resulted Result Diagram: 11/27/17 0627 11/27/17 0627 Imaging Last Impressions Foot MRI 11/27/17 0000 Signed Impressions: Service Date/Time: Monday, November 27, 2017 16:25 - CONCLUSION: 1. There is no evidence to suggest osteomyelitis on the bony structures visualized. 2. There is a cutaneous ulcer directly adjacent to the distal Achilles tendon which appears to be grossly intact. Alireza Lance MD Chest X-Ray 11/26/171999 Signed Impressions: Service Date/Time: Sunday, November 26, 2017 20:05 - CONCLUSION: 1. Basilar airspace disease probably atelectasis. No significant effusion. Dmitry Anton MD Assessment and Plan Assessment and Plan 57-year-old female status post TMA on last admission ulceration with Achilles tendon exposed Patient examined and evaluated with all questions answered Sutures to be removed by surgeon Wound care dressing orders to be placed Off loading heel booties to be dispensed to patient No acute signs of infection warranting leukocytosis from right foot We will follow patient while in-house MRI reviewed no signs of osteomyelitis Leonie Naqvi DPM Nov 27, 2017 21:36
[2017-11-27] MEDS: traZODone HCL 100 MG TAB PO SCH (22:28)
[2017-11-27] MEDS: GABAPENTIN 300 MG CAP PO SCH (22:28)
[2017-11-27] MEDS: ATORVASTATIN 10 MG TAB PO SCH (22:28)
[2017-11-28 01:17] VITALS: BP 95/54; PULSE 88; RESP 18; TEMP 98.7; O2SAT 98
[2017-11-28 05:05] VITALS: BP 91/55; PULSE 74; RESP 18; TEMP 98.7; O2SAT 96
[2017-11-28 06:17] VITALS: BP 112/55; PULSE 78; RESP 18; O2SAT 96
[2017-11-28] MEDS: PIPERACIL-TAZO 2.25 GM PREMIX 50 ML IV SCH ×3 (06:17→22:00)
[2017-11-28] MEDS: CALCIUM CARBONATE 1.25 GM (CA 500 MG) TAB PO SCH ×3 (06:43→21:55)
[2017-11-28 07:30] VITALS: BP 83/48; PULSE 78; RESP 18; O2SAT 96
[2017-11-28 07:40] LABS: AUTOMATED NEUTROPHIL # 7.4 TH/MM3 (1.8-7.7); BASOPHIL % 0.5 % (0.0-2.0); EOSINOPHIL # 1.2 TH/MM3 (0-0.4); HEMOGLOBIN 10.9 GM/DL (11.6-15.3); LYMPH % 8.7 % (9.0-44.0); LYMPHOCYTE # 0.9 TH/MM3 (1.0-4.8); MEAN CELL VOLUME 90.8 FL (80.0-100.0); MEAN CORPUSCULAR HEMOGLOBIN 28.4 PG (27.0-34.0); MEAN CORPUSCULAR HGB CONC 31.2 % (32.0-36.0); MEAN PLATELET VOLUME 7.3 FL (7.0-11.0); MONO % 9.8 % (0.0-8.0); PLATELET COUNT 301 TH/MM3 (150-450); RED BLOOD COUNT 3.85 MIL/MM3 (4.00-5.30); RED CELL DISTRIBUTION WIDTH 18.4 % (11.6-17.2); WHITE BLOOD COUNT 10.6 TH/MM3 (4.0-11.0)
[2017-11-28 08:29] LABS: ALBUMIN 2.9 GM/DL (3.4-5.0); ALKALINE PHOSPHATASE 60 U/L (45-117); ALT (GPT) 10 U/L (10-53); AST (GOT) 9 U/L (15-37); BICARBONATE 23.6 MEQ/L (21.0-32.0); BLOOD UREA NITROGEN 29 MG/DL (7-18); CALCIUM 7.6 MG/DL (8.5-10.1); CHLORIDE 103 MEQ/L (98-107); GLOMERULAR FILTRATION RATE 7 ML/MIN (>89); GLUCOSE,RANDOM 85 MG/DL (74-106); RANDOM VANCOMYCIN 32.1 COMMENT; SODIUM (NA) 140 MEQ/L (136-145); TOTAL BILIRUBIN ADULT 0.4 MG/DL (0.2-1.0); TOTAL PROTEIN 7.8 GM/DL (6.4-8.2)
[2017-11-28] MEDS: ASPIRIN EC 81 MG TABEC PO SCH (09:00)
[2017-11-28] MEDS: MIDODRINE 5 MG TAB PO SCH ×3 (09:00→19:01)
[2017-11-28] MEDS: SODIUM CHLORIDE 0.9% FLUSH 10 ML FLUSH IV FLUSH SCH ×2 (09:00→21:57)
[2017-11-28] MEDS: PANTOPRAZOLE SOD 40 MG DELAYED RELEASE TAB PO SCH (09:00)
[2017-11-28] MEDS: buPROPion HCL 150 MG SUSTAINED RELEASE TAB PO SCH ×2 (09:00→21:55)
[2017-11-28] MEDS: LACTOBACILLUS ACIDOPHILUS TAB PO SCH ×3 (09:00→19:00)
--- NOTE | 2017-11-28 10:24 | HHI.NPPN ---
Subjective History of Present Illness 57 year old female with ESRD, Obesity, DM, osteomyelitis admitted with low BP Review of Systems General Constitutional: Fatigue Objective Data Data Vital Signs Date Time Temp Pulse Resp B/P (MAP) Pulse Ox O2 Delivery O2 Flow Rate FiO2 11/28/17 07:30 78 18 83/48 (60) 96 Room Air 11/28/17 06:17 78 18 112/55 (74) 96 Nasal Cannula 2.00 11/28/17 05:05 98.7 74 18 91/55 (67) 96 Nasal Cannula 2.00 11/28/17 01:17 98.7 88 18 95/54 (68) 98 Nasal Cannula 2.00 11/27/17 22:53 80 16 87/50 (62) 97 Nasal Cannula 11/27/17 19:52 80 18 93/46 (62) 97 Nasal Cannula 2.00 11/27/17 18:34 Nasal Cannula 2.00 11/27/17 18:18 80 20 88/51 (63) 97 Nasal Cannula 2.00 11/27/17 15:21 94 20 80/42 (55) 95 Nasal Cannula 2.00 11/27/17 11:23 86 18 96/54 (68) 97 Nasal Cannula 2.00 -: 11/28/17 0610 11/28/17 0610 Physical Exam General Appearance: Well Developed, Obese Neck Neck Exam: Neck Supple Pulmonary Resp Exam: Clear Bilaterally, Breath Sounds Equal Cardiology CV Exam: Regular, Normal Sinus Rhythm Gastrointestinal/Abdomen GI Exam: Soft, Bowel Sounds Present, Positive Bowel Movement Extremeties Extremities Exam: Moderate Edema (rt foot dressed) Assessment/Plan Problem List: (1) ESRD (end stage renal disease) ICD Codes: N18.6 - End-stage renal disease Status: Chronic Plan: Hemodialysis on Sunday Midodrine increased to 10 mg 3 times a day seen during dialysis on 3 K Bath UF 2 L BP low, monitor, sodium modeling discussed (2) Hypotension ICD Codes: I95.9 - Hypotension Status: Resolved Plan: cortisol level 21.5 (3) Osteomyelitis ICD Codes: M86.9 - Osteomyelitis, unspecified Plan: Continue with vancomycin Problem Qualifiers (1) Hypotension: Qualified Codes: I95.9 - Hypotension, unspecified Frank Villagran MD Nov 28, 2017 10:24
[2017-11-28] MEDS ORDERED: VANCOMYCIN INJ 1,000 MG in SODIUM CHLOR 0.9% 250 ML INJ 250 ML IV ONE (11:00)
[2017-11-28] MEDS ORDERED: VANCOMYCIN INJ 1,000 MG in SODIUM CHLOR 0.9% 250 ML INJ 250 ML IV SCH (11:00)
[2017-11-28 12:47] VITALS: BP 91/61; PULSE 88; RESP 17; TEMP 98.3; O2SAT 98
--- NOTE | 2017-11-28 13:47 | HHI.PR ---
Subjective Remarks Follow-up severe sepsis/diabetic foot infection/end stage renal disease on hemodialysis 11/28/17-Patient seen and examined; very upset this AM about her care. Afebrile. Foot MRI ruled out osteomyelitis. Daughter by the bedside Objective Vitals Vital Signs Date Time Temp Pulse Resp B/P (MAP) Pulse Ox O2 Delivery O2 Flow Rate FiO2 11/28/17 12:47 98.3 88 17 91/61 (71) 98 11/28/17 07:30 78 18 83/48 (60) 96 Room Air 11/28/17 06:17 78 18 112/55 (74) 96 Nasal Cannula 2.00 11/28/17 05:05 98.7 74 18 91/55 (67) 96 Nasal Cannula 2.00 11/28/17 01:17 98.7 88 18 95/54 (68) 98 Nasal Cannula 2.00 11/27/17 22:53 80 16 87/50 (62) 97 Nasal Cannula 11/27/17 19:52 80 18 93/46 (62) 97 Nasal Cannula 2.00 11/27/17 18:34 Nasal Cannula 2.00 11/27/17 18:18 80 20 88/51 (63) 97 Nasal Cannula 2.00 11/27/17 15:21 94 20 80/42 (55) 95 Nasal Cannula 2.00 I/O 11/27/17 11/27/17 11/27/17 11/28/17 11/28/17 11/28/17 07:00 15:00 23:00 07:00 15:00 23:00 Intake Total 1400 ml 250 ml 100 ml Output Total 2000 ml Balance 1400 ml 250 ml 100 ml -2000 ml Intake IV Total 1400 ml 250 ml 100 ml Output Hemodialysis 2000 ml # Bowel Movements 1 Result Diagram: 11/28/17 0610 11/28/17 0610 Imaging Last Impressions Foot MRI 11/27/17 0000 Signed Impressions: Service Date/Time: Monday, November 27, 2017 16:25 - CONCLUSION: 1. There is no evidence to suggest osteomyelitis on the bony structures visualized. 2. There is a cutaneous ulcer directly adjacent to the distal Achilles tendon which appears to be grossly intact. Alireza Lance MD Chest X-Ray 11/26/171999 Signed Impressions: Service Date/Time: [place], November 26, 2017 20:05 - CONCLUSION: 1. Basilar airspace disease probably atelectasis. No significant effusion. Dmitry Anton MD Objective Remarks GENERAL: NAD SKIN: Warm and dry. HEAD: Normocephalic. EYES: No scleral icterus. No injection or drainage. NECK: Supple, trachea midline. No JVD or lymphadenopathy. CARDIOVASCULAR: Regular rate and rhythm without murmurs, gallops, or rubs. RESPIRATORY: Breath sounds equal bilaterally. No accessory muscle use. GASTROINTESTINAL: Abdomen soft, non-tender, nondistended. MUSCULOSKELETAL: No cyanosis, or edema. Incision of R foot is clean, well approximated with stitches in place, no drainage BACK: Nontender without obvious deformity. No CVA tenderness. A/P Problem List: (1) Severe sepsis ICD Code: A41.9 - Sepsis, unspecified organism; R65.20 - Severe sepsis without septic shock Status: Acute (2) ESRD on peritoneal dialysis ICD Code: N18.6 - ESRD on peritoneal dialysis; Z99.2 - Dependence on renal dialysis Status: Chronic (3) Hypotension ICD Code: I95.9 - Hypotension Status: Resolved Assessment and Plan 57-year-old female with Severe sepsis- source likely decubiti vs ongoing right foot osteomyelitis Near-syncopal episodes Hypotension-Chronic Recent hospitalization from November 05, 2017 to November 19, 2017. Managed for septic shock. Source of stomatitis of the right foot. Status post transmetatarsal amputation on November 08, 2017. Was treated with vancomycin, cefepime, Micafungi per ID recommendations until cultures were negative. Unsure whether patient is still on antibiotics as outpatient. Right Achilles tendon exposure. Was evaluated by vascular surgeon here. Conservative management. Diabetes. Diet controlled. Hyperlipidemia CHF COPD ESRD on hemodialysis Baseline hypotension on midodrine Hypothyroidism Anxiety/depression Neuropathy Plan: Appreciate input from ID and podiatry Continue vancomycin/Zosyn pending culture reports Foot MRI negative for Osteomyelitis Hemodialysis per Nephrology Consider Solu Cortef 2/2 Hypotension if not controlled with Midodrine Continue home meds. PT consult to treat and eval DVT prophylaxis with heparin. GI prophylaxis and pantoprazole. Problem Qualifiers (1) Hypotension: Qualified Codes: I95.9 - Hypotension, unspecified Goyo Barney MD Nov 28, 2017 13:47
--- NOTE | 2017-11-28 14:04 | HHI.IDPN ---
Subjective Subjective Remarks C/o being hungry denies pain BP is about the same, blood clx are negative buttock clx with enteric rex Antibiotics zosyn vanco Allergies: Coded Allergies: levofloxacin (Unverified Allergy, Severe, Anaphylaxis, 09/12/17) ANAPHYLAXIS Objective . Vital Signs Date Time Temp Pulse Resp B/P (MAP) Pulse Ox O2 Delivery O2 Flow Rate FiO2 11/28/17 12:47 98.3 88 17 91/61 (71) 98 11/28/17 07:30 78 18 83/48 (60) 96 Room Air 11/28/17 06:17 78 18 112/55 (74) 96 Nasal Cannula 2.00 11/28/17 05:05 98.7 74 18 91/55 (67) 96 Nasal Cannula 2.00 11/28/17 01:17 98.7 88 18 95/54 (68) 98 Nasal Cannula 2.00 11/27/17 22:53 80 16 87/50 (62) 97 Nasal Cannula 11/27/17 19:52 80 18 93/46 (62) 97 Nasal Cannula 2.00 11/27/17 18:34 Nasal Cannula 2.00 11/27/17 18:18 80 20 88/51 (63) 97 Nasal Cannula 2.00 11/27/17 15:21 94 20 80/42 (55) 95 Nasal Cannula 2.00 11/28/17 11/28/17 11/29/17 15:00 23:00 07:00 Output Total 2000 ml Balance -2000 ml Output Hemodialysis 2000 ml . Laboratory Tests Test 11/26/17 21:21 11/27/17 06:27 11/28/17 06:10 White Blood Count 23.9 TH/MM3 16.8 TH/MM3 10.6 TH/MM3 Red Blood Count 4.29 MIL/MM3 4.02 MIL/MM3 3.85 MIL/MM3 Hemoglobin 11.8 GM/DL 11.4 GM/DL 10.9 GM/DL Hematocrit 38.1 % 37.0 % 35.0 % Mean Corpuscular Volume 89.0 FL 91.9 FL 90.8 FL Mean Corpuscular Hemoglobin 27.6 PG 28.3 PG 28.4 PG Mean Corpuscular Hemoglobin Concent 31.0 % 30.8 % 31.2 % Red Cell Distribution Width 18.2 % 18.0 % 18.4 % Platelet Count 374 TH/MM3 299 TH/MM3 301 TH/MM3 Mean Platelet Volume 7.1 FL 7.2 FL 7.3 FL Neutrophils (%) (Auto) 86.5 % 84.0 % 70.0 % Lymphocytes (%) (Auto) 4.5 % 4.6 % 8.7 % Monocytes (%) (Auto) 6.4 % 7.0 % 9.8 % Eosinophils (%) (Auto) 2.5 % 4.1 % 11.0 % Basophils (%) (Auto) 0.1 % 0.3 % 0.5 % Neutrophils # (Auto) 20.6 TH/MM3 14.1 TH/MM3 7.4 TH/MM3 Lymphocytes # (Auto) 1.1 TH/MM3 0.8 TH/MM3 0.9 TH/MM3 Monocytes # (Auto) 1.5 TH/MM3 1.2 TH/MM3 1.0 TH/MM3 Eosinophils # (Auto) 0.6 TH/MM3 0.7 TH/MM3 1.2 TH/MM3 Basophils # (Auto) 0.0 TH/MM3 0.0 TH/MM3 0.0 TH/MM3 CBC Comment DIFF FINAL DIFF FINAL DIFF FINAL Differential Comment Laboratory Tests Test 11/26/17 21:21 11/27/17 06:27 11/28/17 06:10 Blood Urea Nitrogen 21 MG/DL 22 MG/DL 29 MG/DL Creatinine 5.05 MG/DL 5.48 MG/DL 7.00 MG/DL Random Glucose 143 MG/DL 104 MG/DL 85 MG/DL Total Protein 9.2 GM/DL 7.8 GM/DL Albumin 3.6 GM/DL 2.9 GM/DL Calcium Level 8.8 MG/DL 8.0 MG/DL 7.6 MG/DL Alkaline Phosphatase 71 U/L 60 U/L Aspartate Amino Transf (AST/SGOT) 7 U/L 9 U/L Alanine Aminotransferase (ALT/SGPT) 10 U/L 10 U/L Total Bilirubin 0.5 MG/DL 0.4 MG/DL Sodium Level 137 MEQ/L 140 MEQ/L 140 MEQ/L Potassium Level 3.5 MEQ/L 3.8 MEQ/L 4.1 MEQ/L Chloride Level 97 MEQ/L 103 MEQ/L 103 MEQ/L Carbon Dioxide Level 27.6 MEQ/L 24.8 MEQ/L 23.6 MEQ/L Anion Gap 12 MEQ/L 12 MEQ/L 13 MEQ/L Estimat Glomerular Filtration Rate 11 ML/MIN 10 ML/MIN 7 ML/MIN Lactic Acid Level 1.8 mmol/L Troponin I LESS THAN 0.02 NG/ML Thyroid Stimulating Hormone 3rd Gen 7.680 uIU/ML Random Cortisol 21.5 MCG/DL Microbiology Date/Time Source Procedure Growth Status 11/26/17 21:26 Blood Peripheral Aerobic Blood Culture - Preliminary NO GROWTH IN 2 DAYS Resulted 11/26/17 21:26 Blood Peripheral Anaerobic Blood Culture - Preliminary NO GROWTH IN 2 DAYS Resulted 11/26/17 21:21 Blood Peripheral Aerobic Blood Culture - Preliminary NO GROWTH IN 2 DAYS Resulted 11/26/17 21:21 Blood Peripheral Anaerobic Blood Culture - Preliminary NO GROWTH IN 2 DAYS Resulted 11/27/17 09:00 Wound Buttock Gram Stain - Final Resulted 11/27/17 09:00 Wound Buttock Wound Culture - Preliminary Resulted Imaging Last Impressions Foot MRI 11/27/17 0000 Signed Impressions: Service Date/Time: Monday, November 27, 2017 16:25 - CONCLUSION: 1. There is no evidence to suggest osteomyelitis on the bony structures visualized. 2. There is a cutaneous ulcer directly adjacent to the distal Achilles tendon which appears to be grossly intact. Alireza Lance MD Chest X-Ray 11/26/171999 Signed Impressions: Service Date/Time: Sunday, November 26, 2017 20:05 - CONCLUSION: 1. Basilar airspace disease probably atelectasis. No significant effusion. Dmitry Anton MD Physical Exam CONSTITUTIONAL/GENERAL: This is a morbidly obese female patient, in no apparent distress. TUBES/LINES/DRAINS: R femoral tunneled catheter for HD access SKIN: No jaundice, rashes, . CARDIOVASCULAR: Regular rate and rhythm without murmurs, gallops, or rubs. No JVD. Peripheral pulses symmetric. RESPIRATORY/CHEST: Symmetric, unlabored respirations. Clear to auscultation. Breath sounds equal bilaterally. No wheezes, rales, or rhonchi. GASTROINTESTINAL: Abdomen soft, non-tender, nondistended. No hepato-splenomegaly , or palpable masses. No guarding. Bowel sounds present. GENITOURINARY: Without palpable bladder distension. MUSCULOSKELETAL: Extremities without clubbing, cyanosis, or edema. No joint tenderness or effusion noted. No calf tenderness. No mottling or clubbing. Inciison of R foot is clean, well approximated with stitches in place, no drainage R wrist not swollen or tender today NEUROLOGICAL: Awake and alert. Motor and sensory grossly within normal limits. Follows commands. Clear speech. Moves all extremities. PSYCHIATRIC: anxious, easily upset, irritable Assessment & Plan Remarks Pt with suspected sepsis Leukocytosis - resolved source is not clear at this point I doubt that source is the foot and/or buttock wounds ? HD access the source CXR sugg of PNA Cont zosyn and vancomycin for now fu blood clx untill final Steffany Nicolas MD Nov 28, 2017 14:04
[2017-11-28 18:59] VITALS: PULSE 96; RESP 16; TEMP 98.7; O2SAT 95
[2017-11-28] MEDS: GABAPENTIN 300 MG CAP PO SCH (21:55)
[2017-11-28] MEDS: ATORVASTATIN 10 MG TAB PO SCH (21:55)
[2017-11-28] MEDS: traZODone HCL 100 MG TAB PO SCH (21:55)
[2017-11-28] MEDS: ACETAMINOPHEN/HYDROcodone 325 MG/5 MG TAB PO PRN (21:56)
[2017-11-29] VITALS (8 sets, daily range): BP systolic 88–119; BP diastolic 53–73; PULSE 83–96; RESP 18–20; TEMP 98.1–98.5; O2SAT 96–99
[2017-11-29] MEDS: PIPERACIL-TAZO 2.25 GM PREMIX 50 ML IV SCH ×3 (06:43→22:11)
[2017-11-29] MEDS: CALCIUM CARBONATE 1.25 GM (CA 500 MG) TAB PO SCH ×3 (06:43→22:12)
[2017-11-29] MEDS: LACTOBACILLUS ACIDOPHILUS TAB PO SCH ×3 (09:00→17:27)
[2017-11-29] MEDS: MIDODRINE 5 MG TAB PO SCH ×2 (09:00→13:00)
[2017-11-29] MEDS: buPROPion HCL 150 MG SUSTAINED RELEASE TAB PO SCH ×2 (10:46→22:11)
[2017-11-29] MEDS: ASPIRIN EC 81 MG TABEC PO SCH (10:47)
[2017-11-29] MEDS: PANTOPRAZOLE SOD 40 MG DELAYED RELEASE TAB PO SCH (10:47)
[2017-11-29] MEDS: SODIUM CHLORIDE 0.9% FLUSH 10 ML FLUSH IV FLUSH SCH ×2 (10:48→22:15)
--- NOTE | 2017-11-29 11:19 | PD.WCN.NOT ---
Wound Consult Description: Wound consult ordered by for Right posterior Achilles tendon Communicated with: Toma MUSA , Recommendation: 1. Reposition patient every 2 hours for comfort and offloading. 2. Cleanse posterior Right Ankle /Achilles tendon with normal saline pat dry, Skin prep periwound 3. Apply Hydrogel 5mm thick to wound base/Tendon cover with Xeroform secure with dry boarder gauze/Tegaderm 4. Change dressing Every other day or as needed for dislodgement.Sign and date. 5. Apply Calazime thin layer to Bilateral feet for moisture daily. 5. Follow up with outpatient wound care center/Podiatry Additional Information: Patient was seen today on by display card writer for assessment of R posterior ankle/ Achilles tendon.Patient alert and oriented x3 in bed with no complaints at this time .Dressing removed from R lower extremity to reveal a ulcer to posterior Right ankle with Achilles tendon exposed.Wound measures 3.2cm x 1.4cm x 0.3cm wound base is 75% dry exposed brown tendon with 25% black intact stable eschar.Wound cleansed with normal saline pat dry.Puracol is not a appropriate dressing at this time due to drying of tendon.Hydrogel applied 5mm thick to wound base covered with Xeroform cut to fit wound base secured with Tegaderm signed and dated.Calazime applied to feet for moisture due to patient having dry cracking/scaling feet.Sutures to R digits amputation clean dry and intact with no S/S of infection.Patient tolerated wound care well. Lillian Mclean [facility] Nov 29, 2017 11:19
--- NOTE | 2017-11-29 11:32 | HHI.PR ---
Subjective Remarks Follow-up severe sepsis/diabetic foot infection/end stage renal disease on hemodialysis 11/28/17-Patient seen and examined; very upset this AM about her care. Afebrile. Foot MRI ruled out osteomyelitis. Daughter by the bedside 11/29/17-patient seen and examined, afebrile, BP stable, and no acute event overnight. Objective Vitals Vital Signs Date Time Temp Pulse Resp B/P (MAP) Pulse Ox O2 Delivery O2 Flow Rate FiO2 11/29/17 04:00 98.5 91 20 119/60 (79) 98 11/29/17 00:02 2.00 11/29/17 00:00 98.4 96 20 92/59 (70) 96 11/28/17 22:56 18 11/28/17 18:59 98.7 96 16 95 11/28/17 12:47 98.3 88 17 91/61 (71) 98 I/O 11/28/17 11/28/17 11/28/17 11/29/17 11/29/17 11/29/17 06:59 14:59 22:59 06:59 14:59 22:59 Output Total 2000 ml Balance -2000 ml Output Hemodialysis 2000 ml Result Diagram: 11/28/17 0610 11/28/17 0610 Objective Remarks GENERAL: NAD SKIN: Warm and dry. HEAD: Normocephalic. EYES: No scleral icterus. No injection or drainage. NECK: Supple, trachea midline. No JVD or lymphadenopathy. CARDIOVASCULAR: Regular rate and rhythm without murmurs, gallops, or rubs. RESPIRATORY: Breath sounds equal bilaterally. No accessory muscle use. GASTROINTESTINAL: Abdomen soft, non-tender, nondistended. MUSCULOSKELETAL: No cyanosis, or edema. Incision of R foot is clean, well approximated with stitches in place, no drainage BACK: Nontender without obvious deformity. No CVA tenderness. A/P Problem List: (1) Severe sepsis ICD Code: A41.9 - Sepsis, unspecified organism; R65.20 - Severe sepsis without septic shock Status: Acute (2) ESRD on peritoneal dialysis ICD Code: N18.6 - ESRD on peritoneal dialysis; Z99.2 - Dependence on renal dialysis Status: Chronic (3) Hypotension ICD Code: I95.9 - Hypotension Status: Resolved Assessment and Plan 57-year-old female with Severe sepsis- source likely decubiti vs ongoing right foot osteomyelitis Near-syncopal episodes Hypotension-Chronic Recent hospitalization from November 05, 2017 to November 19, 2017. Managed for septic shock. Source of stomatitis of the right foot. Status post transmetatarsal amputation on November 08, 2017. Was treated with vancomycin, cefepime, Micafungi per ID recommendations until cultures were negative. Unsure whether patient is still on antibiotics as outpatient. Right Achilles tendon exposure. Was evaluated by vascular surgeon here. Conservative management. Diabetes. Diet controlled. Hyperlipidemia CHF COPD ESRD on hemodialysis Baseline hypotension on midodrine Hypothyroidism Anxiety/depression Neuropathy Plan: Appreciate input from ID and podiatry Continue vancomycin/Zosyn pending culture reports ; blood culture NTD x 3 days- awaiting for final Blood culture results Foot MRI negative for Osteomyelitis Hemodialysis per Nephrology-Sunday Consider Solu Cortef 2/2 Hypotension if not controlled with Midodrine 10 mg 3 times a day Continue home meds. PT consult to treat and eval DVT prophylaxis with heparin. GI prophylaxis and pantoprazole. Problem Qualifiers (1) Hypotension: Qualified Codes: I95.9 - Hypotension, unspecified Goyo Barney MD Nov 29, 2017 11:32
--- NOTE | 2017-11-29 15:39 | HHI.NPPN ---
Subjective History of Present Illness 57 year old female with ESRD, Obesity, DM, osteomyelitis admitted with low BP Review of Systems General Constitutional: Fatigue Objective Data Data Vital Signs Date Time Temp Pulse Resp B/P (MAP) Pulse Ox O2 Delivery O2 Flow Rate FiO2 11/29/17 12:00 98.4 93 18 104/73 (83) 96 11/29/17 08:00 98.1 83 20 89/54 (66) 96 11/29/17 04:00 98.5 91 20 119/60 (79) 98 11/29/17 00:02 2.00 11/29/17 00:00 98.4 96 20 92/59 (70) 96 11/28/17 22:56 18 11/28/17 18:59 98.7 96 16 95 -: 11/28/17 0610 11/28/17 0610 Physical Exam General Appearance: Well Developed, Obese Neck Neck Exam: Neck Supple Pulmonary Resp Exam: Clear Bilaterally, Breath Sounds Equal Cardiology CV Exam: Regular, Normal Sinus Rhythm Gastrointestinal/Abdomen GI Exam: Soft, Bowel Sounds Present, Positive Bowel Movement Extremeties Extremities Exam: Moderate Edema (rt foot dressed) Assessment/Plan Problem List: (1) ESRD (end stage renal disease) ICD Codes: N18.6 - End-stage renal disease Status: Chronic Plan: Hemodialysis on Sunday Midodrine increased to 10 mg 3 times a day next HD in am BP improved (2) Hypotension ICD Codes: I95.9 - Hypotension Status: Resolved Plan: cortisol level 21.5 (3) Osteomyelitis ICD Codes: M86.9 - Osteomyelitis, unspecified Plan: Continue with vancomycin Problem Qualifiers (1) Hypotension: Qualified Codes: I95.9 - Hypotension, unspecified Frank Villagran MD Nov 29, 2017 15:39
--- NOTE | 2017-11-29 20:03 | HHI.PR ---
Subjective Remarks Patient seen bedside. Denies any nausea vomiting fevers or chills. Reports no pain to right foot or posterior ankle. Objective Vital Signs Date Time Temp Pulse Resp B/P (MAP) Pulse Ox O2 Delivery O2 Flow Rate FiO2 11/29/17 16:00 98.4 92 18 88/53 (65) 97 11/29/17 12:00 98.4 93 18 104/73 (83) 96 11/29/17 08:00 98.1 83 20 89/54 (66) 96 11/29/17 04:00 98.5 91 20 119/60 (79) 98 11/29/17 00:02 2.00 11/29/17 00:00 98.4 96 20 92/59 (70) 96 11/28/17 22:56 18 I/O 11/28/17 11/28/17 11/28/17 11/29/17 11/29/17 11/29/17 06:59 14:59 22:59 06:59 14:59 22:59 Intake Total 480 ml Output Total 2000 ml Balance -2000 ml 480 ml Intake Oral 480 ml Output Hemodialysis 2000 ml # Voids 0 # Bowel Movements 1 Result Diagram: 11/28/17 0610 11/28/17 0610 Imaging Last Impressions Foot MRI 11/27/17 0000 Signed Impressions: Service Date/Time: Monday, November 27, 2017 16:25 - CONCLUSION: 1. There is no evidence to suggest osteomyelitis on the bony structures visualized. 2. There is a cutaneous ulcer directly adjacent to the distal Achilles tendon which appears to be grossly intact. Alireza Lance MD Chest X-Ray 11/26/171999 Signed Impressions: Service Date/Time: Sunday, November 26, 2017 20:05 - CONCLUSION: 1. Basilar airspace disease probably atelectasis. No significant effusion. Dmitry Anton MD Other Results Microbiology Date/Time Source Procedure Growth Status 11/26/17 21:26 Blood Peripheral Aerobic Blood Culture - Preliminary NO GROWTH IN 3 DAYS Resulted 11/26/17 21:26 Blood Peripheral Anaerobic Blood Culture - Preliminary NO GROWTH IN 3 DAYS Resulted 11/27/17 09:00 Wound Buttock Gram Stain - Final Complete 11/27/17 09:00 Wound Buttock Wound Culture - Final Complete Objective Remarks Lower extremity physical exam: Vascular: Dorsalis pedis nonpalpable, posterior tibial nonpalpable. Capillary refill time within normal limits to TMA site right foot. Edema present mildly right foot. Neuro: Gross sensation intact to bilateral lower extremity. Pinpoint sensation decreased. No hyperalgesia noted to bilateral lower extremity Dermatology: Normal temperature and turgor to bilateral lower extremity. Right TMA site with sutures intact and skin well coapted no drainage noted. Right posterior ankle ulcer with Achilles tendon exposed, no surrounding erythema, no purulent, no acute signs of infection. Musculoskeletal: Tender to palpation to right posterior ankle ulcer. Guarding to right posterior ankle. Medications and IVs Last Impressions Foot MRI 11/27/17 0000 Signed Impressions: Service Date/Time: Monday, November 27, 2017 16:25 - CONCLUSION: 1. There is no evidence to suggest osteomyelitis on the bony structures visualized. 2. There is a cutaneous ulcer directly adjacent to the distal Achilles tendon which appears to be grossly intact. Alireza Lance MD Chest X-Ray 11/26/171999 Signed Impressions: Service Date/Time: Sunday, November 26, 2017 20:05 - CONCLUSION: 1. Basilar airspace disease probably atelectasis. No significant effusion. Dmitry Anton MD Assessment and Plan Assessment and Plan 57-year-old female status post TMA on last admission ulceration with Achilles tendon exposed Patient examined and evaluated with all questions answered Sutures removed. TMA site with skin well coapted no dehiscence or drainage noted. Wound care dressing placed; will speak with wound care. Patient will need puracol placed over wound. Off loading heel booties to be dispensed to patient; Patient still has not received them they are essential to offloading her posterior ankle ulcer No acute signs of infection warranting leukocytosis from right foot Appreciate ID consult and agree no acute signs of infection from left foot Patient to follow up in 1 week from discharge OK to DC per podiatry Leonie Naqvi DPM Nov 29, 2017 20:03
[2017-11-29] MEDS: GABAPENTIN 300 MG CAP PO SCH (22:11)
[2017-11-29] MEDS: SILVER SULFADIAZINE 1% CR 50 GM JAR TOPICAL SCH (22:12)
[2017-11-29] MEDS: ATORVASTATIN 10 MG TAB PO SCH (22:12)
[2017-11-29] MEDS: traZODone HCL 100 MG TAB PO SCH (22:12)
[2017-11-29] MEDS: LIDOCAINE 4% CREAM 5 GM TUBE TOPICAL SCH (22:13)
[2017-11-30] VITALS (7 sets, daily range): BP systolic 90–100; BP diastolic 41–59; PULSE 89–100; RESP 17–19; TEMP 96.4–97.8; O2SAT 93–100
[2017-11-30 05:17] LABS: AUTOMATED NEUTROPHIL # 5.7 TH/MM3 (1.8-7.7); BASOPHIL # 0.1 TH/MM3 (0-0.2); BASOPHIL % 1.6 % (0.0-2.0); EOSINOPHIL # 0.9 TH/MM3 (0-0.4); HEMATOCRIT 34.8 % (35.0-46.0); HEMOGLOBIN 10.9 GM/DL (11.6-15.3); LYMPH % 6.9 % (9.0-44.0); LYMPHOCYTE # 0.6 TH/MM3 (1.0-4.8); MEAN CELL VOLUME 91.5 FL (80.0-100.0); MEAN CORPUSCULAR HEMOGLOBIN 28.7 PG (27.0-34.0); MEAN CORPUSCULAR HGB CONC 31.4 % (32.0-36.0); MEAN PLATELET VOLUME 7.3 FL (7.0-11.0); MONO % 9.5 % (0.0-8.0); MONOCYTE # 0.8 TH/MM3 (0-0.9); PLATELET COUNT 238 TH/MM3 (150-450); RED CELL DISTRIBUTION WIDTH 17.8 % (11.6-17.2)
[2017-11-30 05:30] LABS: BICARBONATE 29.1 MEQ/L (21.0-32.0); CREATININE 7.16 MG/DL (0.50-1.00)
[2017-11-30] MEDS: CALCIUM CARBONATE 1.25 GM (CA 500 MG) TAB PO SCH ×3 (05:30→21:22)
[2017-11-30] MEDS: PIPERACIL-TAZO 2.25 GM PREMIX 50 ML IV SCH ×3 (05:30→21:22)
[2017-11-30] MEDS: LIDOCAINE 4% CREAM 5 GM TUBE TOPICAL SCH ×2 (08:56→21:23)
[2017-11-30] MEDS: SILVER SULFADIAZINE 1% CR 50 GM JAR TOPICAL SCH ×2 (08:56→21:23)
[2017-11-30] MEDS: MIDODRINE 5 MG TAB PO SCH ×3 (09:05→17:49)
[2017-11-30] MEDS: SODIUM CHLORIDE 0.9% FLUSH 10 ML FLUSH IV FLUSH SCH ×2 (09:06→21:23)
[2017-11-30] MEDS: ASPIRIN EC 81 MG TABEC PO SCH (09:07)
[2017-11-30] MEDS: buPROPion HCL 150 MG SUSTAINED RELEASE TAB PO SCH ×2 (09:08→21:22)
[2017-11-30] MEDS: PANTOPRAZOLE SOD 40 MG DELAYED RELEASE TAB PO SCH (09:09)
[2017-11-30] MEDS: LACTOBACILLUS ACIDOPHILUS TAB PO SCH ×3 (09:09→17:49)
[2017-11-30] MEDS: GENTAMICIN SULFATE 20 MG/2 ML VIAL OTHER PRN (12:29)
[2017-11-30] MEDS: ALBUMIN 25% INJ 100 ML IV PRN (12:29)
--- NOTE | 2017-11-30 13:14 | HHI.PR ---
Subjective Remarks Follow-up severe sepsis/diabetic foot infection/end stage renal disease on hemodialysis 11/28/17-Patient seen and examined; very upset this AM about her care. Afebrile. Foot MRI ruled out osteomyelitis. Daughter by the bedside 11/29/17-patient seen and examined, afebrile, BP stable, and no acute event overnight. 11/30/17-patient seen and examined, no complaints; likely discharge on 12/01. Afebrile Objective Vitals Vital Signs Date Time Temp Pulse Resp B/P (MAP) Pulse Ox O2 Delivery O2 Flow Rate FiO2 11/30/17 09:15 97 Nasal Cannula 2.00 21 11/30/17 08:30 95 11/30/17 08:00 97.8 89 18 95/41 (59) 97 11/30/17 04:00 96.9 92 17 99/59 (72) 96 11/30/17 00:00 Nasal Cannula 2.00 11/30/17 00:00 97.6 100 18 100/58 (72) 100 11/30/17 00:00 95 11/29/17 20:27 97 21 11/29/17 20:01 92 11/29/17 20:00 Nasal Cannula 2.00 11/29/17 20:00 98.5 94 18 88/58 (68) 99 11/29/17 16:00 98.4 92 18 88/53 (65) 97 I/O 11/29/17 11/29/17 11/29/17 11/30/17 11/30/17 11/30/17 07:00 15:00 23:00 07:00 15:00 23:00 Intake Total 530 ml Output Total 3000 ml Balance 530 ml -3000 ml Intake Oral 480 ml IV Total 50 ml Output Hemodialysis 3000 ml # Voids 0 0 # Bowel Movements 1 Result Diagram: 11/30/17 0450 11/30/17 0450 Imaging Last Impressions Foot MRI 11/27/17 0000 Signed Impressions: Service Date/Time: Monday, November 27, 2017 16:25 - CONCLUSION: 1. There is no evidence to suggest osteomyelitis on the bony structures visualized. 2. There is a cutaneous ulcer directly adjacent to the distal Achilles tendon which appears to be grossly intact. Alireza Lance MD Chest X-Ray 11/26/171999 Signed Impressions: Service Date/Time: Sunday, November 26, 2017 20:05 - CONCLUSION: 1. Basilar airspace disease probably atelectasis. No significant effusion. Dmitry Anton MD Objective Remarks GENERAL: NAD SKIN: Warm and dry. HEAD: Normocephalic. EYES: No scleral icterus. No injection or drainage. NECK: Supple, trachea midline. No JVD or lymphadenopathy. CARDIOVASCULAR: Regular rate and rhythm without murmurs, gallops, or rubs. RESPIRATORY: Breath sounds equal bilaterally. No accessory muscle use. GASTROINTESTINAL: Abdomen soft, non-tender, nondistended. MUSCULOSKELETAL: No cyanosis, or edema. Incision of R foot is clean, well approximated with stitches in place, no drainage BACK: Nontender without obvious deformity. No CVA tenderness. Procedures None A/P Problem List: (1) Severe sepsis ICD Code: A41.9 - Sepsis, unspecified organism; R65.20 - Severe sepsis without septic shock Status: Acute (2) ESRD on peritoneal dialysis ICD Code: N18.6 - ESRD on peritoneal dialysis; Z99.2 - Dependence on renal dialysis Status: Chronic (3) Hypotension ICD Code: I95.9 - Hypotension Status: Resolved Assessment and Plan 57-year-old female with Severe sepsis- source likely decubiti vs ongoing right foot osteomyelitis Near-syncopal episodes Hypotension-Chronic Recent hospitalization from November 05, 2017 to November 19, 2017. Managed for septic shock. Source of stomatitis of the right foot. Status post transmetatarsal amputation on November 08, 2017. Was treated with vancomycin, cefepime, Micafungi per ID recommendations until cultures were negative. Unsure whether patient is still on antibiotics as outpatient. Right Achilles tendon exposure. Was evaluated by vascular surgeon here. Conservative management. Diabetes. Diet controlled. Hyperlipidemia CHF COPD ESRD on hemodialysis Baseline hypotension on midodrine Hypothyroidism Anxiety/depression Neuropathy Plan: Appreciate input from ID and podiatry (signed off) Continue vancomycin/Zosyn x 1 more day until 12/01/17; blood culture NTD x 4 days -awaiting for final Blood culture results Foot MRI negative for Osteomyelitis Hemodialysis per Nephrology-Sunday Consider Solu Cortef 2/2 Hypotension if not controlled with Midodrine 10 mg 3 times a day Continue home meds. PT to treat and eval DVT prophylaxis with heparin. GI prophylaxis and pantoprazole. Problem Qualifiers (1) Hypotension: Qualified Codes: I95.9 - Hypotension, unspecified Goyo Barney MD Nov 30, 2017 13:14
--- NOTE | 2017-11-30 15:57 | HHI.NPPN ---
Subjective History of Present Illness 57 year old female with ESRD, Obesity, DM, osteomyelitis admitted with low BP Review of Systems General Constitutional: Fatigue Objective Data Data 11/30/17 12/01/17 19:00 07:00 Output Total 3000 ml Balance -3000 ml Output Hemodialysis 3000 ml Vital Signs Date Time Temp Pulse Resp B/P (MAP) Pulse Ox O2 Delivery O2 Flow Rate FiO2 11/30/17 09:15 97 Nasal Cannula 2.00 21 11/30/17 08:30 95 11/30/17 08:00 97.8 89 18 95/41 (59) 97 11/30/17 04:00 96.9 92 17 99/59 (72) 96 11/30/17 00:00 Nasal Cannula 2.00 11/30/17 00:00 97.6 100 18 100/58 (72) 100 11/30/17 00:00 95 11/29/17 20:27 97 21 11/29/17 20:01 92 11/29/17 20:00 Nasal Cannula 2.00 11/29/17 20:00 98.5 94 18 88/58 (68) 99 11/29/17 16:00 98.4 92 18 88/53 (65) 97 -: 11/30/17 0450 11/30/17 0450 Physical Exam General Appearance: Well Developed, Obese Neck Neck Exam: Neck Supple Pulmonary Resp Exam: Clear Bilaterally, Breath Sounds Equal Cardiology CV Exam: Regular, Normal Sinus Rhythm Gastrointestinal/Abdomen GI Exam: Soft, Bowel Sounds Present, Positive Bowel Movement Extremeties Extremities Exam: Moderate Edema (rt foot dressed) Assessment/Plan Problem List: (1) ESRD (end stage renal disease) ICD Codes: N18.6 - End-stage renal disease Status: Chronic Plan: Hemodialysis on Sunday [id number] mg 3 times a day today HD 3 L off BP improved (2) Hypotension ICD Codes: I95.9 - Hypotension Status: Resolved Plan: cortisol level 21.5 (3) Osteomyelitis ICD Codes: M86.9 - Osteomyelitis, unspecified Plan: Continue with vancomycin Problem Qualifiers (1) Hypotension: Qualified Codes: I95.9 - Hypotension, unspecified Frank Villagran MD Nov 30, 2017 15:57
[2017-11-30] MEDS: ACETAMINOPHEN/HYDROcodone 325 MG/5 MG TAB PO PRN ×2 (16:18→21:22)
--- NOTE | 2017-11-30 18:28 | HHI.PR ---
Addendum to Inpatient Note Additional Information Pt seen earliuer today around 1400 Full note to follow Steffany Nicolas MD Nov 30, 2017 18:28
[2017-11-30] MEDS: ATORVASTATIN 10 MG TAB PO SCH (21:22)
[2017-11-30] MEDS: CYCLOBENZAPRINE HCL 10 MG TAB PO PRN (21:22)
[2017-11-30] MEDS: traZODone HCL 100 MG TAB PO SCH (21:22)
[2017-11-30] MEDS: GABAPENTIN 300 MG CAP PO SCH (21:22)
--- NOTE | 2017-11-30 23:51 | HHI.IDPN ---
Subjective Subjective Remarks c/o buttock pain afebrile BP reamins los Antibiotics zosyn Allergies: Coded Allergies: levofloxacin (Unverified Allergy, Severe, Anaphylaxis, 09/12/17) ANAPHYLAXIS Objective . Vital Signs Date Time Temp Pulse Resp B/P (MAP) Pulse Ox O2 Delivery O2 Flow Rate FiO2 11/30/17 20:00 96.7 95 17 92/46 (61) 93 11/30/17 20:00 94 11/30/17 20:00 Nasal Cannula 2.00 11/30/17 17:51 97 11/30/17 16:00 96.4 94 19 90/50 (63) 98 11/30/17 09:15 97 Nasal Cannula 2.00 21 11/30/17 08:30 95 11/30/17 08:00 97.8 89 18 95/41 (59) 97 11/30/17 04:00 96.9 92 17 99/59 (72) 96 11/30/17 00:00 Nasal Cannula 2.00 11/30/17 00:00 97.6 100 18 100/58 (72) 100 11/30/17 00:00 95 11/30/17 11/30/17 12/01/17 15:00 23:00 07:00 Intake Total 50 ml 1200 ml Output Total 3000 ml Balance -2950 ml 1200 ml Intake Oral 1200 ml IV Total 50 ml Output Hemodialysis 3000 ml # Bowel Movements 1 . Laboratory Tests Test 11/30/17 04:50 White Blood Count 8.0 TH/MM3 Red Blood Count 3.80 MIL/MM3 Hemoglobin 10.9 GM/DL Hematocrit 34.8 % Mean Corpuscular Volume 91.5 FL Mean Corpuscular Hemoglobin 28.7 PG Mean Corpuscular Hemoglobin Concent 31.4 % Red Cell Distribution Width 17.8 % Platelet Count 238 TH/MM3 Mean Platelet Volume 7.3 FL Neutrophils (%) (Auto) 71.0 % Lymphocytes (%) (Auto) 6.9 % Monocytes (%) (Auto) 9.5 % Eosinophils (%) (Auto) 11.0 % Basophils (%) (Auto) 1.6 % Neutrophils # (Auto) 5.7 TH/MM3 Lymphocytes # (Auto) 0.6 TH/MM3 Monocytes # (Auto) 0.8 TH/MM3 Eosinophils # (Auto) 0.9 TH/MM3 Basophils # (Auto) 0.1 TH/MM3 CBC Comment DIFF FINAL Differential Comment Laboratory Tests Test 11/30/17 04:50 Blood Urea Nitrogen 23 MG/DL Creatinine 7.16 MG/DL Random Glucose 116 MG/DL Calcium Level 8.0 MG/DL Sodium Level 142 MEQ/L Potassium Level 3.8 MEQ/L Chloride Level 102 MEQ/L Carbon Dioxide Level 29.1 MEQ/L Anion Gap 11 MEQ/L Estimat Glomerular Filtration Rate 7 ML/MIN Imaging Last Im Last Impressions Foot MRI 11/27/17 0000 Signed Impressions: Service Date/Time: Monday, November 27, 2017 16:25 - CONCLUSION: 1. There is no evidence to suggest osteomyelitis on the bony structures visualized. 2. There is a cutaneous ulcer directly adjacent to the distal Achilles tendon which appears to be grossly intact. Alireza Lance MD Chest X-Ray 11/26/171999 Signed Impressions: Service Date/Time: Sunday, November 26, 2017 20:05 - CONCLUSION: 1. Basilar airspace disease probably atelectasis. No significant effusion. Dmitry Anton MD Physical Exam CONSTITUTIONAL/GENERAL: This is a morbidly obese female patient, in no apparent distress. TUBES/LINES/DRAINS: R femoral tunneled catheter for HD access SKIN: No jaundice, rashes, . B/L buttocks with clean based shallow small very tender ulcerations CARDIOVASCULAR: Regular rate and rhythm without murmurs, gallops, or rubs. No JVD. Peripheral pulses symmetric. RESPIRATORY/CHEST: Symmetric, unlabored respirations. Clear to auscultation. Breath sounds equal bilaterally. No wheezes, rales, or rhonchi. GASTROINTESTINAL: Abdomen soft, non-tender, nondistended. No hepato-splenomegaly , or palpable masses. No guarding. Bowel sounds present. GENITOURINARY: Without palpable bladder distension. MUSCULOSKELETAL: Extremities without clubbing, cyanosis, or edema. No joint tenderness or effusion noted. No calf tenderness. No mottling or clubbing. Inciison of R foot is clean, well approximated with stitches in place, no drainage R wrist not swollen or tender today NEUROLOGICAL: Awake and alert. Motor and sensory grossly within normal limits. Follows commands. Clear speech. Moves all extremities. PSYCHIATRIC: anxious, easily upset, irritable Assessment & Plan Remarks Pt with suspected sepsis Leukocytosis - resolved source is not clear at this point I doubt that source is the foot and/or buttock wounds ? HD access the source CXR sugg of PNA Cont zosyn dc vancomycin chk R buttock lesions for HSV fu blood clx untill final Steffany Nicolas MD Nov 30, 2017 23:51
[2017-12-01] VITALS (9 sets, daily range): BP systolic 72–151; BP diastolic 41–52; PULSE 77–92; RESP 16–20; TEMP 96.2–98; O2SAT 92–99
[2017-12-01] MEDS: CALCIUM CARBONATE 1.25 GM (CA 500 MG) TAB PO SCH ×3 (06:08→20:26)
[2017-12-01] MEDS: ACETAMINOPHEN/HYDROcodone 325 MG/5 MG TAB PO PRN (06:08)
[2017-12-01] MEDS: PIPERACIL-TAZO 2.25 GM PREMIX 50 ML IV SCH ×3 (06:08→22:34)
[2017-12-01] MEDS: LACTOBACILLUS ACIDOPHILUS TAB PO SCH ×3 (08:39→17:37)
[2017-12-01] MEDS: buPROPion HCL 150 MG SUSTAINED RELEASE TAB PO SCH ×2 (08:39→20:26)
[2017-12-01] MEDS: MIDODRINE 5 MG TAB PO SCH ×3 (08:40→17:38)
[2017-12-01] MEDS: PANTOPRAZOLE SOD 40 MG DELAYED RELEASE TAB PO SCH (08:40)
[2017-12-01] MEDS: ASPIRIN EC 81 MG TABEC PO SCH (08:40)
[2017-12-01] MEDS: SODIUM CHLORIDE 0.9% FLUSH 10 ML FLUSH IV FLUSH SCH ×2 (08:41→20:26)
[2017-12-01] MEDS: LIDOCAINE 4% CREAM 5 GM TUBE TOPICAL SCH ×2 (08:41→20:32)
[2017-12-01] MEDS: SILVER SULFADIAZINE 1% CR 50 GM JAR TOPICAL SCH ×2 (08:42→20:32)
--- NOTE | 2017-12-01 11:58 | HHI.NPPN ---
Subjective History of Present Illness 57 year old female with ESRD, Obesity, DM, osteomyelitis admitted with low BP Review of Systems General Constitutional: Fatigue Objective Data Data Vital Signs Date Time Temp Pulse Resp B/P (MAP) Pulse Ox O2 Delivery O2 Flow Rate FiO2 12/01/17 08:49 Nasal Cannula 2.00 21 12/01/17 08:30 88 12/01/17 08:00 96.2 83 18 72/41 (51) 98 12/01/17 00:00 97.5 92 20 91/42 (58) 94 11/30/17 20:00 96.7 95 17 92/46 (61) 93 11/30/17 20:00 94 11/30/17 20:00 Nasal Cannula 2.00 11/30/17 17:51 97 11/30/17 16:00 96.4 94 19 90/50 (63) 98 -: 11/30/17 0450 11/30/17 0450 Physical Exam General Appearance: Well Developed, Obese Neck Neck Exam: Neck Supple Pulmonary Resp Exam: Clear Bilaterally, Breath Sounds Equal Cardiology CV Exam: Regular, Normal Sinus Rhythm Gastrointestinal/Abdomen GI Exam: Soft, Bowel Sounds Present, Positive Bowel Movement Extremeties Extremities Exam: Moderate Edema (rt foot dressed) Assessment/Plan Problem List: (1) ESRD (end stage renal disease) ICD Codes: N18.6 - End-stage renal disease Status: Chronic Plan: Hemodialysis on Sunday [id number] mg 3 times a day BP Dropped again 5% Albumin ordered 250 cc IV (2) Hypotension ICD Codes: I95.9 - Hypotension Status: Resolved Plan: cortisol level 21.5 (3) Osteomyelitis ICD Codes: M86.9 - Osteomyelitis, unspecified Plan: Continue with vancomycin Problem Qualifiers (1) Hypotension: Qualified Codes: I95.9 - Hypotension, unspecified Frank Villagran MD Dec 01, 2017 11:58
--- NOTE | 2017-12-01 12:09 | HHI.PR ---
Subjective Remarks Blood pressure dropped again this morning. She denies chest pain or lightheadedness. Objective Vitals Vital Signs Date Time Temp Pulse Resp B/P (MAP) Pulse Ox O2 Delivery O2 Flow Rate FiO2 12/01/17 08:49 Nasal Cannula 2.00 21 12/01/17 08:30 88 12/01/17 08:00 96.2 83 18 72/41 (51) 98 12/01/17 00:00 97.5 92 20 91/42 (58) 94 11/30/17 20:00 96.7 95 17 92/46 (61) 93 11/30/17 20:00 94 11/30/17 20:00 Nasal Cannula 2.00 11/30/17 17:51 97 11/30/17 16:00 96.4 94 19 90/50 (63) 98 I/O 11/30/17 11/30/17 11/30/17 12/01/17 12/01/17 12/01/17 07:00 15:00 23:00 07:00 15:00 23:00 Intake Total 50 ml 1250 ml 410 ml Output Total 3000 ml Balance -2950 ml 1250 ml 410 ml Intake Oral 1200 ml 360 ml IV Total 50 ml 50 ml 50 ml Output Hemodialysis 3000 ml # Voids 0 0 # Bowel Movements 1 0 Result Diagram: 11/30/170 11/30/17 0450 Objective Remarks GENERAL: NAD CARDIOVASCULAR: Regular rate and rhythm without murmurs, gallops, or rubs. RESPIRATORY: Breath sounds equal bilaterally. No accessory muscle use. GASTROINTESTINAL: Abdomen soft, non-tender, nondistended. MUSCULOSKELETAL: No cyanosis, or edema. Right foot postop dressing appear clean. Procedures None A/P Problem List: (1) Severe sepsis ICD Code: A41.9 - Sepsis, unspecified organism; R65.20 - Severe sepsis without septic shock Status: Acute (2) ESRD on peritoneal dialysis ICD Code: N18.6 - ESRD on peritoneal dialysis; Z99.2 - Dependence on renal dialysis Status: Chronic (3) Hypotension ICD Code: I95.9 - Hypotension Status: Resolved Assessment and Plan 57-year-old female with Suspected sepsis: Source unclear. ID following. Leukocytosis improved. Near-syncopal episodes Hypotension-worse today. Recent hospitalization from November 05, 2017 to November 19, 2017. Managed for septic shock. Source at the time was osteomyelitis of the right foot. Status post transmetatarsal amputation on November 08, 2017. Was treated with vancomycin, cefepime, Micafungi per ID recommendations until cultures were negative. Unsure whether patient was still on antibiotics as outpatient. Right Achilles tendon exposure. Was evaluated by vascular surgeon here. Conservative management. Diabetes. Diet controlled. Hyperlipidemia CHF COPD ESRD on hemodialysis Baseline hypotension on midodrine Hypothyroidism Anxiety/depression Neuropathy Plan: Appreciate input from ID and podiatry (signed off) Vancomycin discontinued. Continue Zosyn per infectious disease. Follow blood cultures. Foot MRI negative for Osteomyelitis Hemodialysis per Nephrology-Sunday Continue home meds. Regarding hypotension, DC Flexeril. Decrease Trazodone. Albumin per Nephrology. Continue midodrine. PT to treat and eval DVT prophylaxis with heparin. GI prophylaxis and pantoprazole. Problem Qualifiers (1) Hypotension: Qualified Codes: I95.9 - Hypotension, unspecified Nieves Olivares MD Dec 01, 2017 12:09
[2017-12-01] MEDS ORDERED: PILL SPLITTER OTHER PRN (12:30)
[2017-12-01] MEDS ORDERED: ALBUMIN 5% INJ 500 ML IV ONE (13:00)
[2017-12-01] MEDS: traZODone HCL 100 MG TAB PO SCH (20:26)
[2017-12-01] MEDS: GABAPENTIN 300 MG CAP PO SCH (20:26)
[2017-12-01] MEDS: ATORVASTATIN 10 MG TAB PO SCH (20:31)
[2017-12-02] VITALS: BP 89/59; PULSE 77; PULSE 78; RESP 18; TEMP 97.2; O2SAT 99
[2017-12-02 04:00] VITALS: PULSE 79
[2017-12-02] MEDS: PIPERACIL-TAZO 2.25 GM PREMIX 50 ML IV SCH ×3 (05:33→21:54)
[2017-12-02] MEDS: CALCIUM CARBONATE 1.25 GM (CA 500 MG) TAB PO SCH ×3 (05:33→20:47)
[2017-12-02 08:00] VITALS: BP 82/57; PULSE 80; PULSE 89; RESP 20; TEMP 97.3; O2SAT 98
[2017-12-02] MEDS: PANTOPRAZOLE SOD 40 MG DELAYED RELEASE TAB PO SCH (08:52)
[2017-12-02] MEDS: LACTOBACILLUS ACIDOPHILUS TAB PO SCH ×3 (08:52→18:00)
[2017-12-02] MEDS: buPROPion HCL 150 MG SUSTAINED RELEASE TAB PO SCH ×2 (08:53→20:47)
[2017-12-02] MEDS: ASPIRIN EC 81 MG TABEC PO SCH (08:53)
[2017-12-02] MEDS: SODIUM CHLORIDE 0.9% FLUSH 10 ML FLUSH IV FLUSH SCH ×2 (08:53→20:46)
[2017-12-02] MEDS: LIDOCAINE 4% CREAM 5 GM TUBE TOPICAL SCH ×2 (08:54→20:52)
[2017-12-02] MEDS: SILVER SULFADIAZINE 1% CR 50 GM JAR TOPICAL SCH ×2 (08:54→20:52)
[2017-12-02 12:00] VITALS: BP 142/55; PULSE 88; RESP 20; TEMP 97.7; O2SAT 96
--- NOTE | 2017-12-02 12:27 | HHI.NPPN ---
Subjective History of Present Illness 57 year old female with ESRD, Obesity, DM, osteomyelitis admitted with low BP Review of Systems General Constitutional: Fatigue Objective Data Data Vital Signs Date Time Temp Pulse Resp B/P (MAP) Pulse Ox O2 Delivery O2 Flow Rate FiO2 12/02/17 08:00 97.3 89 20 82/57 (65) 98 12/02/17 04:00 79 12/02/17 00:00 97.2 77 18 89/59 (69) 99 12/02/17 00:00 78 12/01/17 20:00 Nasal Cannula 12/01/17 20:00 80 12/01/17 20:00 97.8 82 16 151/50 (83) 99 12/01/17 16:00 97.3 77 18 82/48 (59) 96 12/01/17 14:00 92 Nasal Cannula 2.00 12/01/17 12:30 83 -: 11/30/17 0450 11/30/17 0450 Physical Exam General Appearance: Well Developed, Obese Neck Neck Exam: Neck Supple Pulmonary Resp Exam: Clear Bilaterally, Breath Sounds Equal Cardiology CV Exam: Regular, Normal Sinus Rhythm Gastrointestinal/Abdomen GI Exam: Soft, Bowel Sounds Present, Positive Bowel Movement Extremeties Extremities Exam: Moderate Edema (rt foot dressed) Assessment/Plan Problem List: (1) ESRD (end stage renal disease) ICD Codes: N18.6 - End-stage renal disease Status: Chronic Plan: Hemodialysis on Sunday [id number] mg 3 times a day BP low but better after Albumin infusion follow BP dc plans CBC,CMP,PO4 ordered (2) Hypotension ICD Codes: I95.9 - Hypotension Status: Resolved Plan: cortisol level 21.5 (3) Osteomyelitis ICD Codes: M86.9 - Osteomyelitis, unspecified Plan: Continue with vancomycin Problem Qualifiers (1) Hypotension: Qualified Codes: I95.9 - Hypotension, unspecified Frank Villagran MD Dec 02, 2017 12:27
[2017-12-02] MEDS: MIDODRINE 5 MG TAB PO SCH ×2 (13:00→18:00)
[2017-12-02 16:00] VITALS: BP 85/49; PULSE 80; PULSE 84; RESP 20; TEMP 97.9; O2SAT 94
[2017-12-02 16:51] LABS: AUTOMATED NEUTROPHIL # 5.3 TH/MM3 (1.8-7.7); BASOPHIL # 0.1 TH/MM3 (0-0.2); BASOPHIL % 0.8 % (0.0-2.0); EOSINOPHIL % 12.5 % (0.0-4.0); HEMATOCRIT 35.8 % (35.0-46.0); HEMOGLOBIN 11.2 GM/DL (11.6-15.3); LYMPH % 9.9 % (9.0-44.0); LYMPHOCYTE # 0.8 TH/MM3 (1.0-4.8); MEAN CELL VOLUME 91.8 FL (80.0-100.0); MEAN CORPUSCULAR HEMOGLOBIN 28.8 PG (27.0-34.0); MEAN CORPUSCULAR HGB CONC 31.3 % (32.0-36.0); MEAN PLATELET VOLUME 7.5 FL (7.0-11.0); MONO % 9.4 % (0.0-8.0); MONOCYTE # 0.7 TH/MM3 (0-0.9); NEUT % 67.4 % (16.0-70.0); PLATELET COUNT 246 TH/MM3 (150-450); RED CELL DISTRIBUTION WIDTH 17.2 % (11.6-17.2); WHITE BLOOD COUNT 7.8 TH/MM3 (4.0-11.0)
--- NOTE | 2017-12-02 16:54 | HHI.PR ---
Subjective Remarks Patient seen earlier today around noon. Blood pressure still low but improved. She denies any lightheadedness, headache, or chest pain. Objective Vitals Vital Signs Date Time Temp Pulse Resp B/P (MAP) Pulse Ox O2 Delivery O2 Flow Rate FiO2 12/02/17 12:00 97.7 88 20 142/55 (84) 96 12/02/17 08:00 97.3 89 20 82/57 (65) 98 12/02/17 08:00 Nasal Cannula 2.00 12/02/17 04:00 79 12/02/17 00:00 97.2 77 18 89/59 (69) 99 12/02/17 00:00 78 12/01/17 20:00 Nasal Cannula 12/01/17 20:00 80 12/01/17 20:00 97.8 82 16 151/50 (83) 99 I/O 12/01/17 12/01/17 12/01/17 12/02/17 12/02/17 12/02/17 07:00 15:00 23:00 07:00 15:00 23:00 Intake Total 410 ml 650 ml 500 ml Output Total 0 ml Balance 410 ml 650 ml 500 ml 0 ml Intake Oral 360 ml 600 ml IV Total 50 ml 50 ml 500 ml Output Urine Total 0 ml # Voids 0 # Bowel Movements 0 2 0 Result Diagram: 11/30/1744911/30/17 045 Objective Remarks GENERAL: NAD CARDIOVASCULAR: Regular rate and rhythm without murmurs, gallops, or rubs. RESPIRATORY: Breath sounds equal bilaterally. No accessory muscle use. GASTROINTESTINAL: Abdomen soft, non-tender, nondistended. MUSCULOSKELETAL: No cyanosis, or edema. Right foot postop dressing appear clean. Procedures None A/P Problem List: (1) Severe sepsis ICD Code: A41.9 - Sepsis, unspecified organism; R65.20 - Severe sepsis without septic shock Status: Acute (2) ESRD on peritoneal dialysis ICD Code: N18.6 - ESRD on peritoneal dialysis; Z99.2 - Dependence on renal dialysis Status: Chronic (3) Hypotension ICD Code: I95.9 - Hypotension Status: Resolved Assessment and Plan 57-year-old female with Suspected sepsis: Source unclear. ID following. Leukocytosis improved. Near-syncopal episodes Hypotension-improved. Recent hospitalization from November 05, 2017 to November 19, 2017. Managed for septic shock. Source at the time was osteomyelitis of the right foot. Status post transmetatarsal amputation on November 08, 2017. Was treated with vancomycin, cefepime, Micafungi per ID recommendations until cultures were negative. Unsure whether patient was still on antibiotics as outpatient. Right Achilles tendon exposure. Was evaluated by vascular surgeon here. Conservative management. Diabetes. Diet controlled. Hyperlipidemia CHF COPD ESRD on hemodialysis Baseline hypotension on midodrine Hypothyroidism Anxiety/depression Neuropathy Plan: Appreciate input from ID and podiatry (signed off) Continue Zosyn per infectious disease. Follow blood cultures. Foot MRI negative for Osteomyelitis Hemodialysis per Nephrology-Sunday Continue home meds. Blood pressure improved after albumin, discontinuation of Flexeril. Decrease Trazodone. Continue midodrine. Continue to monitor. PT DVT prophylaxis with heparin. GI prophylaxis and pantoprazole. Discharge Planning Plan for discharge tomorrow if blood pressure remains stable or better. Patient wants to return home and states her daughter will care for her. Need final recommendations from infectious disease regarding antibiotics. Problem Qualifiers (1) Hypotension: Qualified Codes: I95.9 - Hypotension, unspecified Nieves Olivares MD Dec 02, 2017 16:54
[2017-12-02 20:00] VITALS: BP 86/43; PULSE 82; RESP 17; TEMP 98; O2SAT 97
[2017-12-02] MEDS: traZODone HCL 100 MG TAB PO SCH (20:47)
[2017-12-02] MEDS: ATORVASTATIN 10 MG TAB PO SCH (20:47)
[2017-12-02] MEDS: GABAPENTIN 300 MG CAP PO SCH (20:47)
[2017-12-03] VITALS (8 sets, daily range): BP systolic 76–106; BP diastolic 41–59; PULSE 78–98; RESP 16–19; TEMP 97.5–100.1; O2SAT 97–100
[2017-12-03] MEDS: PIPERACIL-TAZO 2.25 GM PREMIX 50 ML IV SCH ×3 (05:46→21:28)
[2017-12-03] MEDS: CALCIUM CARBONATE 1.25 GM (CA 500 MG) TAB PO SCH ×3 (05:46→21:22)
[2017-12-03] MEDS: buPROPion HCL 150 MG SUSTAINED RELEASE TAB PO SCH ×2 (08:45→21:16)
[2017-12-03] MEDS: LACTOBACILLUS ACIDOPHILUS TAB PO SCH ×3 (08:45→17:31)
[2017-12-03] MEDS: LIDOCAINE 4% CREAM 5 GM TUBE TOPICAL SCH ×2 (08:45→21:15)
[2017-12-03] MEDS: SILVER SULFADIAZINE 1% CR 50 GM JAR TOPICAL SCH ×2 (08:45→21:15)
[2017-12-03] MEDS: ASPIRIN EC 81 MG TABEC PO SCH (08:45)
[2017-12-03] MEDS: PANTOPRAZOLE SOD 40 MG DELAYED RELEASE TAB PO SCH (08:45)
[2017-12-03] MEDS: SODIUM CHLORIDE 0.9% FLUSH 10 ML FLUSH IV FLUSH SCH ×2 (08:46→21:17)
[2017-12-03] MEDS: MIDODRINE 5 MG TAB PO SCH ×3 (09:00→17:31)
--- NOTE | 2017-12-03 10:48 | HHI.NPPN ---
Subjective History of Present Illness 57 year old female with ESRD, Obesity, DM, osteomyelitis admitted with low BP Review of Systems General Constitutional: Fatigue Objective Data Data Vital Signs Date Time Temp Pulse Resp B/P (MAP) Pulse Ox O2 Delivery O2 Flow Rate FiO2 12/03/17 09:00 99 Nasal Cannula 2.00 12/03/17 08:00 98.2 80 17 85/55 (65) 99 12/03/17 07:00 85 12/03/17 04:00 97.5 84 16 87/51 (63) 98 12/03/17 04:00 97.5 84 16 87/51 (63) 98 12/03/17 00:00 97.8 85 16 76/41 (53) 100 12/02/17 20:00 Nasal Cannula 2.00 12/02/17 20:00 98.0 82 17 86/43 (57) 97 12/02/17 19:58 Nasal Cannula 2.00 12/02/17 16:00 97.9 84 20 85/49 (61) 94 12/02/17 16:00 80 12/02/17 12:00 97.7 88 20 142/55 (84) 96 -: 12/02/17 1631 11/30/17 0450 Physical Exam General Appearance: Well Developed, Obese Neck Neck Exam: Neck Supple Pulmonary Resp Exam: Clear Bilaterally, Breath Sounds Equal Cardiology CV Exam: Regular, Normal Sinus Rhythm Gastrointestinal/Abdomen GI Exam: Soft, Bowel Sounds Present, Positive Bowel Movement Extremeties Extremities Exam: Moderate Edema (rt foot dressed) Assessment/Plan Problem List: (1) ESRD (end stage renal disease) ICD Codes: N18.6 - End-stage renal disease Status: Chronic Plan: Hemodialysis on Sunday [id number] mg 3 times a day BP low Pt seen during dialysis UF 3 L , BP low normal dc plans (2) Hypotension ICD Codes: I95.9 - Hypotension Status: Resolved Plan: cortisol level 21.5 (3) Osteomyelitis ICD Codes: M86.9 - Osteomyelitis, unspecified Plan: Continue with vancomycin Problem Qualifiers (1) Hypotension: Qualified Codes: I95.9 - Hypotension, unspecified Frank Villagran MD Dec 03, 2017 10:48
[2017-12-03] MEDS: GENTAMICIN SULFATE 20 MG/2 ML VIAL OTHER PRN (10:52)
[2017-12-03] MEDS: ALBUMIN 25% INJ 100 ML IV PRN (10:52)
[2017-12-03] MEDS: ACETAMINOPHEN/HYDROcodone 325 MG/5 MG TAB PO PRN (14:36)
--- NOTE | 2017-12-03 15:03 | HHI.FF ---
Face to Face Verification Diagnosis: (1) ESRD (end stage renal disease) (2) Morbid obesity (3) Foot ulceration Physical Therapy Order: Evaluate and Treat Home Health Nursing Order: Wound care and dressing changes Nursing assessment with vital signs Instructions: 1. Reposition patient every 2 hours for comfort and offloading. 2. Cleanse posterior Right Ankle /Achilles tendon with normal saline pat dry, Skin prep periwound 3. Apply Hydrogel 5mm thick to wound base/Tendon cover with Xeroform secure with dry boarder gauze/Tegaderm 4. Change dressing Every other day or as needed for dislodgement.Sign and date. 5. Apply Calazime thin layer to Bilateral feet for moisture daily. I have seen patient Aleksandra Jenkins on 12/03/17. My clinical findings support the need for the requested home health care services because: Deconditioned w/ increased weakness Limited ability to care for self I certify that my clinical findings support that this patient is homebound because: Unsafe to leave home unassisted Ramon Hilton MD Dec 03, 2017 15:03
--- NOTE | 2017-12-03 16:59 | HHI.DS ---
Discharge Summary Admission Date Nov 26, 2017 at 22:37 Discharge Date: Dec 04, 2017 Admitting Diagnosis sepsis, hypotension, diabetic foot infection (1) Severe sepsis ICD Code: A41.9 - Sepsis, unspecified organism; R65.20 - Severe sepsis without septic shock Status: Acute (2) ESRD on peritoneal dialysis ICD Code: N18.6 - ESRD on peritoneal dialysis; Z99.2 - Dependence on renal dialysis Status: Chronic (3) Hypotension ICD Code: I95.9 - Hypotension Status: Resolved Procedures None Brief History - From Admission History the patient, ER communication, and review of medical records. Patient is also known to me from her previous admission to the hospital. Patient stated that she wants to dialysis today and over there, she had an "episode". She states she was not sure what happened. But she states that she was having some dizziness. She states she had low blood pressure during dialysis. She was told that she was not acting like herself. But denies any syncope. She states she received her usual 4.5 hours dialysis session today though. She was not sure whether she was given IV fluids or not for low blood pressure. She then went home and at home what she described is that she had an anxiety attack. She states her daughter called the ambulance. When asked to clarify her anxiety attack, she describes that she was feeling dizziness and shortness of breath at that time. Denies any vomiting. But was very nauseous. Denies any chest pain/diaphoresis. She did however felt associated was about to pass out. Denies any other specific symptoms. She reports that she is mostly bedbound or wheelchair bound. She is not taking any blood thinners at home now. She denies fever at home. She has had recent podiatry surgery for her right metatarsal amputation Also known to have baseline low blood pressure for which she now takes midodrine at home. In the last hospitalization, patient was quite hypotensive although she was entirely awake alert and oriented without tachycardia. She was initially treated as septic shock and was given Solu-Cortef IV which was finished on November 15, 2017. CBC/BMP: 12/02/17 1631 11/30/17 0450 Significant Findings Laboratory Tests Test 12/02/17 16:31 12/03/17 15:55 Red Blood Count 3.90 MIL/MM3 (4.00-5.30) Hemoglobin 11.2 GM/DL (11.6-15.3) Mean Corpuscular Hemoglobin Concent 31.3 % (32.0-36.0) Monocytes (%) (Auto) 9.4 % (0.0-8.0) Eosinophils (%) (Auto) 12.5 % (0.0-4.0) Lymphocytes # (Auto) 0.8 TH/MM3 (1.0-4.8) Eosinophils # (Auto) 1.0 TH/MM3 (0-0.4) PE at Discharge Lying in bed, no acute distress Right foot postop dressing appear clean. Hospital Course Patient was admitted, started on IV antibiotics. Her hemodynamic status had stabilized with IV fluids as well as dialysis.. MRI was not indicative of osteomyelitis. Her blood cultures remained negative. Podiatry was consulted and felt no need for invasive surgical intervention would rather continue appropriate dressing changes. Sutures were removed from most recent surgery on last hospitalization. Infectious disease also consulted and ultimately deemed the patient stable for discharge without any need for further antibiotics. HSV PCR was obtained for a suspicious rash on patient's buttocks by infectious disease. Patient has met maximal benefit from hospitalization is clinically stable for discharge. Pt Condition on Discharge: Stable Discharge Disposition: Disch w/ Home Health Serv Discharge Time: <= 30 minutes Discharge Instructions DIET: Follow Instructions for: Renal Failure Diet Activities you can perform: Weight Bearing as Trudi Follow up Referrals: Nephrology with Frank Villagran MD PCP Follow-up - 1 Week Podiatry - 1 Week @ [facility] with Leonie Naqvi DPM New Medications: Lidocaine Topical (Lmx Plus Topical) 4 % Kit 1 APPLIC TOPICAL BID for Pain Management, #1 KIT [Silver Sulfadia 1% Crm (50 Gm)] () 50 APPLIC/50 GM CR 1 APPLIC TOPICAL BID, #1 TUBE Continued Medications: Aspirin DR (Aspirin EC) 81 Mg Tabdr 81 MG PO DAILY for Prevent Blood Clot, #30 TAB Atorvastatin (Atorvastatin) 10 Mg Tab 10 MG PO HS for Cholesterol Management, #30 TAB 0 Refills Bupropion HCl ER 24 HR (Bupropion HCl ER 24 HR) 150 Mg Tab 300 MG PO DAILY for Control Depression, TAB 0 Refills Calcium Carbonate (Calcium Carbonate) 500 Mg Calcium (1250 Mg) Tab 2000 MG PO Q8HR for Calcium Supplement, TAB 0 Refills 1,250 mg calcium carbonate (500 mg elemental calcium) Gabapentin (Gabapentin) 300 Mg Cap 300 MG PO HS, #30 CAP 0 Refills Hydrocodone/Acetaminophen (Hydrocodone-Acetamin 5-325 mg) 5 Mg-325 Mg Tablet 1 TAB PO Q4H PRN for PAIN GREATER THAN 5, #15 TAB 0 Refills Ipratropium-Albuterol Inh (Combivent Respimat Inh) 20-100 Assisted/Act Aero 2 PUFF INH BID for Asthma Management, #1 INHALER 0 Refills Midodrine (Midodrine) 10 Mg Tab 10 MG PO DAILY for Control Low Blood Pressure, #90 TAB 0 Refills Pantoprazole (Pantoprazole) 40 Mg Tab 40 MG PO DAILY for Reflux, #30 TAB 0 Refills Trazodone (Trazodone) 100 Mg Tablet 100 MG PO HS for Control Depression, #30 TAB 0 Refills Discontinued Medications: Cyclobenzaprine (Flexeril) 10 Mg Tab 10 MG PO BID PRN for MUSCLE SPASM, #10 TAB Ramon Hilton MD Dec 03, 2017 16:59
[2017-12-03] MEDS: ATORVASTATIN 10 MG TAB PO SCH (21:16)
[2017-12-03] MEDS: GABAPENTIN 300 MG CAP PO SCH (21:16)
[2017-12-03] MEDS: traZODone HCL 100 MG TAB PO SCH (21:19)
--- NOTE | 2017-12-03 22:35 | HHI.PR ---
Subjective Remarks Nursing denies any deterioration since last night. Patient has no new complaints. Wants to go home. Denies any shortness of breath. Objective Vital Signs Date Time Temp Pulse Resp B/P (MAP) Pulse Ox O2 Delivery O2 Flow Rate FiO2 12/03/17 21:33 98.4 82 17 88/51 (63) 99 12/03/17 16:00 97.8 93 19 83/48 (60) 99 12/03/17 12:58 100.1 98 18 106/59 (75) 97 12/03/17 09:00 99 Nasal Cannula 2.00 12/03/17 08:00 78 12/03/17 08:00 98.2 80 17 85/55 (65) 99 12/03/17 07:00 85 12/03/17 04:00 97.5 84 16 87/51 (63) 98 12/03/17 04:00 97.5 84 16 87/51 (63) 98 12/03/17 00:00 97.8 85 16 76/41 (53) 100 I/O 12/02/17 12/02/17 12/02/17 12/03/17 12/03/17 12/03/17 07:00 15:00 23:00 07:00 15:00 23:00 Intake Total 720 ml 300 ml 375 ml Output Total 0 ml 3000 ml Balance 0 ml 720 ml 300 ml -3000 ml 375 ml Intake Oral 720 ml 300 ml 375 ml Output Urine Total 0 ml Hemodialysis 3000 ml # Voids 0 0 1 # Bowel Movements 0 2 2 Result Diagram: 12/02/17 1631 11/30/17 0450 Objective Remarks Lying in bed, awake, alert, no acute distress Lungs are clear bilaterally A/P Assessment and Plan 57-year-old female with Suspected sepsis: Source unclear. ID following. Sepsis element resolved. Hypotension- asymptomatic now and back at baseline. Right Achilles tendon exposure. Was evaluated by vascular surgeon here. Conservative management. Diabetes. Diet controlled. Hyperlipidemia CHF COPD ESRD on hemodialysis Baseline hypotension on midodrine Hypothyroidism Anxiety/depression Neuropathy Plan: Appreciate input from ID and podiatry (signed off) Continue Zosyn per infectious disease. Follow blood cultures. Foot MRI negative for Osteomyelitis Hemodialysis per Nephrology-Sunday Continue home meds. Blood pressure improved after albumin, discontinuation of Flexeril. Decrease Trazodone. Continue midodrine. Continue to monitor. PT DVT prophylaxis with heparin. GI prophylaxis and pantoprazole. Discharge Planning Plan for discharge in next 24 hrs if cleared w/ ID. BP now back to baseline. Ramon Hilton MD Dec 03, 2017 22:35
[2017-12-04 00:28] VITALS: BP 92/52; PULSE 81; RESP 17; TEMP 97.7; O2SAT 99
[2017-12-04] MEDS: PIPERACIL-TAZO 2.25 GM PREMIX 50 ML IV SCH (05:41)
[2017-12-04] MEDS: CALCIUM CARBONATE 1.25 GM (CA 500 MG) TAB PO SCH (05:41)
[2017-12-04 05:43] VITALS: BP 81/55; PULSE 88; RESP 17; TEMP 98.5; O2SAT 99
[2017-12-04 08:00] VITALS: BP 92/52; PULSE 91; RESP 16; TEMP 97.3; O2SAT 95
[2017-12-04 09:57] LABS: ALBUMIN 3.5 GM/DL (3.4-5.0); ALKALINE PHOSPHATASE 46 U/L (45-117); ALT (GPT) 9 U/L (10-53); AST (GOT) 9 U/L (15-37); BICARBONATE 29.6 MEQ/L (21.0-32.0); BLOOD UREA NITROGEN 29 MG/DL (7-18); CALCIUM 7.8 MG/DL (8.5-10.1); CHLORIDE 99 MEQ/L (98-107); CREATININE 6.31 MG/DL (0.50-1.00); GLOMERULAR FILTRATION RATE 8 ML/MIN (>89); GLUCOSE,RANDOM 93 MG/DL (74-106); SODIUM (NA) 139 MEQ/L (136-145); TOTAL BILIRUBIN ADULT 0.4 MG/DL (0.2-1.0)
[2017-12-04] MEDS: PANTOPRAZOLE SOD 40 MG DELAYED RELEASE TAB PO SCH (09:58)
[2017-12-04] MEDS: buPROPion HCL 150 MG SUSTAINED RELEASE TAB PO SCH (09:58)
[2017-12-04] MEDS: SODIUM CHLORIDE 0.9% FLUSH 10 ML FLUSH IV FLUSH SCH (09:58)
[2017-12-04] MEDS: LACTOBACILLUS ACIDOPHILUS TAB PO SCH (09:58)
[2017-12-04] MEDS: MIDODRINE 5 MG TAB PO SCH (09:58)
[2017-12-04] MEDS: ASPIRIN EC 81 MG TABEC PO SCH (09:58)
[2017-12-04] MEDS: LIDOCAINE 4% CREAM 5 GM TUBE TOPICAL SCH (09:59)
[2017-12-04] MEDS: SILVER SULFADIAZINE 1% CR 50 GM JAR TOPICAL SCH (10:00)
[2017-12-04] MEDS ORDERED: Silver Sulfadia 1% Crm (50 Gm) TOPICAL (10:45)
[2017-12-04] MEDS ORDERED: LIDO TOPICAL (10:45)
[2017-12-05 11:42] LABS: HSV 1 PCR Negative (Negative); HSV 2 PCR Negative (Negative); SPECIMEN SOURCE BUTTOCK WOUNDS; VZV RESULT Negative (Negative); VZV SPECIMEN SOURCE BUTTOCK WOUNDS
== END 2017-12-04 12:00 | disposition home health service (06) | DRG 871 ==
LOC: NEPE 19:30 → NEDA 22:37 → NEDH 11-27 04:34 → HOCB 11-28 16:25
PROVIDERS: ADMIT Hospitalist; ATTEND Hospitalist
PROC: 5A1D70Z Performance of Urinary Filtration, Intermittent, Less than 6 Hours Per Day (ICD-10-PCS; principal; 2017-11-27)
DX: A41.9 Sepsis, unspecified organism (principal); L89.153 Pressure ulcer of sacral region, stage 3; I13.2 Hypertensive heart and chronic kidney disease with heart failure and with stage 5 chronic kidney disease, or end stage renal disease; J18.9 Pneumonia, unspecified organism; N18.6 End stage renal disease; I95.3 Hypotension of hemodialysis; Z68.43 Body mass index [BMI] 50.0-59.9, adult; J44.0 Chronic obstructive pulmonary disease with (acute) lower respiratory infection; L89.513 Pressure ulcer of right ankle, stage 3; E11.52 Type 2 diabetes mellitus with diabetic peripheral angiopathy with gangrene; E66.01 Morbid (severe) obesity due to excess calories; E11.22 Type 2 diabetes mellitus with diabetic chronic kidney disease; E11.40 Type 2 diabetes mellitus with diabetic neuropathy, unspecified; I50.9 Heart failure, unspecified; R65.20 Severe sepsis without septic shock; D63.1 Anemia in chronic kidney disease; E78.5 Hyperlipidemia, unspecified; K21.9 Gastro-esophageal reflux disease without esophagitis; G47.30 Sleep apnea, unspecified; E89.0 Postprocedural hypothyroidism; M19.90 Unspecified osteoarthritis, unspecified site; F32.9 Major depressive disorder, single episode, unspecified; F41.1 Generalized anxiety disorder; Z83.3 Family history of diabetes mellitus; Z87.891 Personal history of nicotine dependence; Z88.1 Allergy status to other antibiotic agents; Z89.422 Acquired absence of other left toe(s); Z89.412 Acquired absence of left great toe; Z99.2 Dependence on renal dialysis; Z99.3 Dependence on wheelchair
CPT/HCPCS: 71045; 73718; 80048; 80053; 80202; 82533; 83605; 84100; 84443; 84484; 85025; 85610; 87040; 87070; 87205; 87529; 87798; 90935; 93005; 96361; 96365; 96374; 96375; J1580; J1644; J2543; J3370; J7030; J7050; P9045; P9047

== ENCOUNTER 2017-12-19 14:35 | Inpatient (IN) | payer MEDICARE, OTHER ==
[~2017-12-19] VITALS: Ht 167.6 cm; Wt 134.0 kg
[~2017-12-19 14:35] MED LIST changes: -CYCL10TA PO; +LIDO TOPICAL; +Silver Sulfadia 1% Crm (50 Gm) TOPICAL
[2017-12-19 14:48] VITALS: BP 165/102; PULSE 113; RESP 16; TEMP 97.6; O2SAT 97
--- NOTE | 2017-12-19 14:54 | PD ---
HPI Chief Complaint: Abdominal Pain Time Seen by Provider: 14:47 Travel History International Travel<30 days: No Contact w/Intl Traveler<30days: No Traveled to known affect area: No History of Present Illness HPI 57-year-old female with history of end-stage renal disease on hemodialysis Wednesdays and Fridays, CHF, COPD, presents via EMS for evaluation of abdominal pain and diarrhea. Symptoms started 2 days ago. She reports generalized constant sharp abdominal pain as well as multiple episodes of nonbloody watery diarrhea for the past 2 days. Today she was receiving hemodialysis, she had approximately 1 hour of treatment left, when she needed to go to the bathroom and therefore staff called paramedics. She is currently requesting to go the bathroom in order to have a bowel movement. She denies fevers, chills, myalgias. She has had nausea but no vomiting. Of note, she was admitted on November 26 for suspected sepsis, discharged on December 04, and IV antibiotics during her hospital stay. PFSH Past Medical History Hx Anticoagulant Therapy: No Anemia: Yes Arthritis: Yes Asthma: Yes Autoimmune Disease: No Blood Disorders: No Anxiety: Yes Depression: Yes Heart Rhythm Problems: No Cancer: No Cardiovascular Problems: Yes (CHF, hyperlipidemia) High Cholesterol: Yes Chemotherapy: No Chest Pain: No Congestive Heart Failure: Yes COPD: Yes Cerebrovascular Accident: No Diabetes: Yes Dialysis: Yes (M/W/F) Diminished Hearing: No Endocrine: Yes Gastrointestinal Disorders: Yes (ULCERS) GERD: Yes Glaucoma: No Genitourinary: Yes (ESRD, Dialysis) Headaches: Yes Hepatitis: No Hiatal Hernia: No Hypertension: Yes (LOW BLOOD PRESSURE) Immune Disorder: No Implanted Vascular Access Dvce: Yes (PERMACATH R GROIN FOR DIALYSIS) Kidney Stones: No Musculoskeletal: Yes Neurologic: No Psychiatric: Yes Reproductive: No Respiratory: Yes (COPD, asthma) Immunizations Current: Yes Migraines: No Myocardial Infarction: No Pneumonia: Yes (HX) Radiation Therapy: No Renal Failure: Yes (CRF) Seizures: No Sickle Cell Disease: No Sleep Apnea: Yes Thyroid Disease: Yes Ulcer: Yes PNEUMOCCOCAL Vaccine (Year): 3 Menopausal: Yes : 3 Para: 3 Miscarriage: 0 : 0 Past Surgical History Abdominal Surgery: Yes AICD: No Appendectomy: Yes Arteriovenous Shunt: Yes (right femoral ) Body Medical Devices: Old nonfunctioning NANCY fistula. Current- Permacath Right Groin Cardiac Surgery: No Cholecystectomy: Yes Ear Surgery: No Endocrine Surgery: Yes (THYROIDECTOMY) Eye Surgery: Yes (LASIK right cataract removed / left removed) Genitourinary Surgery: Yes (Peritoneal Abdominal Catheter removed april 2015) Gynecologic Surgery: Yes (Partial Hysterectomy and Appendectomy ) Hysterectomy: Yes (PARTIAL ) Insulin Pump: No Joint Replacement: No Neurologic Surgery: No Oral Surgery: Yes (ALL TEETH REMOVED) Pacemaker: No Thoracic Surgery: No Other Surgery: Yes (GREAT TOE AMPUTATION R/L FOOT) Social History Alcohol Use: No Tobacco Use: Yes (09/11 PPD) Substance Use: Yes (cocaine 1999) Allergies-Medications (Allergen,Severity, Reaction): Coded Allergies: levofloxacin (Unverified Allergy, Severe, Anaphylaxis, 12/19/17) ANAPHYLAXIS Reported Meds & Prescriptions Reported Meds & Active Scripts Active [Silver Sulfadia 1% Crm (50 Gm)] 50 APPLIC/50 GM Cr 1 Applic TOPICAL BID Lmx Plus Topical (Lidocaine) 4 % Kit 1 Applic TOPICAL BID Hydrocodone-Acetamin 5-325 mg (Hydrocodone/Acetaminophen) 5 Mg-325 Mg Tablet 1 Tab PO Q4H PRN Aspirin EC (Aspirin) 81 Mg Tabdr 81 Mg PO DAILY Reported Combivent Respimat Inh (Ipratropium-Albuterol Inh) 20-100 Senior Living/Act Aero 2 Puff INH BID Gabapentin 300 Mg Cap 300 Mg PO HS Trazodone (Trazodone HCl) 100 Mg Tablet 100 Mg PO HS Calcium Carbonate 500 Mg Calcium (1250 Mg) Tab 2,000 Mg PO Q8HR 1,250 mg calcium carbonate (500 mg elemental calcium) Midodrine 10 Mg Tab 10 Mg PO DAILY Bupropion HCl ER 24 HR (Bupropion HCl) 150 Mg Tab 300 Mg PO DAILY Atorvastatin (Atorvastatin Calcium) 10 Mg Tab 10 Mg PO HS Pantoprazole (Pantoprazole Sodium) 40 Mg Tab 40 Mg PO DAILY Review of Systems Except as stated in HPI: all other systems reviewed are Neg Physical Exam Narrative GENERAL: This is a obese female who appears uncomfortable on initial examination. SKIN: Warm and dry. Examination of the sacral region reveals a 2+ decubitus ulcer. No erythema. HEAD: Atraumatic. Normocephalic. EYES: Pupils equal and round. No scleral icterus. No injection or drainage. ENT: No nasal bleeding or discharge. Mucous membranes pink and moist. NECK: Trachea midline. No JVD. CARDIOVASCULAR: Regular rate and rhythm. No murmur appreciated. RESPIRATORY: No accessory muscle use. Clear to auscultation. Breath sounds equal bilaterally. GASTROINTESTINAL: Abdomen soft, generalized tenderness to palpation without guarding. MUSCULOSKELETAL: No obvious deformities. No clubbing. No cyanosis. No edema. NEUROLOGICAL: Awake and alert. No obvious cranial nerve deficits. Motor grossly within normal limits. Normal speech. Data Data Last Documented VS Vital Signs Date Time Temp Pulse Resp B/P (MAP) Pulse Ox O2 Delivery O2 Flow Rate FiO2 12/19/17 17:30 108 18 104/54 (71) 97 Room Air 12/19/17 14:48 97.6 Orders Orders Complete Blood Count With Diff (12/19/17 14:51) Comprehensive Metabolic Panel (12/19/17 14:51) Lipase (12/19/17 14:51) Lactic Acid (12/19/17 14:51) Ct Abd/Pel W/O Iv Contrast (12/19/17 14:51) Iv Access Insert/Monitor (12/19/17 14:51) Ecg Monitoring (12/19/17 14:51) Oximetry (12/19/17 14:51) Ondansetron Inj (Zofran Inj) (12/19/17 15:00) Sodium Chloride 0.9% Flush (Ns Flush) (12/19/17 15:00) Electrocardiogram (12/19/17 14:51) C Diff Toxin Pcr (12/19/17 14:51) Enteric Path (Stool) (12/19/17 14:51) Magnesium (Mg) (12/19/17 14:51) Phosphorus (Po4) (12/19/17 14:51) Sodium Chlorid 0.9% 500 Ml Inj (Ns 500 M (12/19/17 17:15) Sodium Chlor 0.9% 1000 Ml Inj (Ns 1000 M (12/19/17 17:04) Blood Culture (12/19/17 17:05) Vascular Access Team Consult/P PRN (12/19/17 17:37) Vascular Poc Ultrasound (12/19/17 ) Piperacil-Tazo 2.25 Gm Premix (Zosyn 2.2 (12/19/17 18:15) Metronidazole 500 Mg Inj (Flagyl 500 Mg (12/19/17 18:15) Lactic Acid Sepsis Protocol (12/19/17 18:21) Morphine Inj (Morphine Inj) (12/19/17 18:30) Cta Abd/Pel W Iv Contrast W 3d (12/19/17 ) Consult Nephrology (12/19/17 ) (Hub Use Only)Inp Phy Cons/Ref (12/19/17 ) Iohexol 350 Inj (Omnipaque 350 Inj) (12/19/17 19:04) Blood Flow Rate (12/19/17 19:37) Dialysate Flow Rate (12/19/17:37) Dialyzer (12/19/17:37) Concentrate (12/19/17:37) Acid Concentrate (12/19/17:37) Length Of Dialysis (12/19/17:37) Frequency Of Dialysis (12/19/17:37) Dialysis Obtain (12/19/17:37) Dialysis Schedule (12/19/17:37) Resp Oxygen Helder C Titrat 1-4 L (12/19/17 ) Dialysis Weight (12/19/17:37) ^ Obtain As Needed (12/19/17:37) Sodium Chlor 0.9% 1000 Ml Inj (Ns 1000 M (12/19/17 19:37) Heparin Inj (Heparin Inj) (12/19/17 19:45) Sodium Chlor 0.9% 1000 Ml Inj (Ns 1000 M (12/19/17 19:37) Sodium Chlor 0.9% 1000 Ml Inj (Ns 1000 M (12/19/17 19:37) Mannitol Inj (Mannitol Inj) (12/19/17 19:45) Albumin 25% Inj (Albumin 25% Inj) (12/19/17 19:45) Sodium Chloride 0.9% Flush (Ns Flush) (12/19/17 19:45) Heparin Inj (Heparin Inj) (12/19/17 19:45) Gentamicin Inj (Gentamicin Inj) (12/19/17 19:45) Ondansetron Inj (Zofran Inj) (12/19/17 19:45) Acetaminophen (Tylenol) (12/19/17 19:45) Diphenhydramine (Benadryl) (12/19/17 19:45) Nitroglycerin Sl (Nitrostat Sl) (12/19/17 19:45) Clonidine (Catapres) (12/19/17 19:45) Gelatin 12 Mm/7 Mm Top (Gelfoam 12 Mm/7 (12/19/17 19:45) Admit Order (Ed Use Only) (12/19/17 19:53) Labs Laboratory Tests Test 12/19/17 16:07 12/19/17 18:15 White Blood Count 36.0 TH/MM3 Red Blood Count 4.92 MIL/MM3 Hemoglobin 13.6 GM/DL Hematocrit 44.8 % Mean Corpuscular Volume 91.0 FL Mean Corpuscular Hemoglobin 27.6 PG Mean Corpuscular Hemoglobin Concent 30.4 % Red Cell Distribution Width 17.5 % Platelet Count 374 TH/MM3 Mean Platelet Volume 8.3 FL Neutrophils (%) (Auto) 91.8 % Lymphocytes (%) (Auto) 3.1 % Monocytes (%) (Auto) 4.2 % Eosinophils (%) (Auto) 0.7 % Basophils (%) (Auto) 0.2 % Neutrophils # (Auto) 33.1 TH/MM3 Lymphocytes # (Auto) 1.1 TH/MM3 Monocytes # (Auto) 1.5 TH/MM3 Eosinophils # (Auto) 0.3 TH/MM3 Basophils # (Auto) 0.1 TH/MM3 CBC Comment AUTO DIFF Differential Total Cells Counted 100 Neutrophils % (Manual) 77 % Band Neutrophils % 11 % Lymphocytes % 7 % Monocytes % 3 % Eosinophils % 1 % Neutrophils # (Manual) 32.0 TH/MM3 Myelocytes 1 % Differential Comment FINAL DIFF MANUAL Platelet Estimate NORMAL Platelet Morphology Comment NORMAL Stool C. difficile Toxin (PCR) POSITIVE Stl C. difficile Toxin Epiderm 027 PRESUMPTIVE POSITIVE Blood Urea Nitrogen 30 MG/DL Creatinine 5.59 MG/DL Random Glucose 179 MG/DL Total Protein 10.1 GM/DL Albumin 3.4 GM/DL Calcium Level 8.5 MG/DL Phosphorus Level 2.3 MG/DL Magnesium Level 1.9 MG/DL Alkaline Phosphatase 100 U/L Aspartate Amino Transf (AST/SGOT) 20 U/L Alanine Aminotransferase (ALT/SGPT) 18 U/L Total Bilirubin 0.6 MG/DL Sodium Level 135 MEQ/L Potassium Level 4.4 MEQ/L Chloride Level 99 MEQ/L Carbon Dioxide Level 25.2 MEQ/L Anion Gap 11 MEQ/L Estimat Glomerular Filtration Rate 9 ML/MIN Lactic Acid Level 3.3 mmol/L 2.4 mmol/L Lipase 217 U/L MDM Medical Decision Making Medical Screen Exam Complete: Yes Emergency Medical Condition: Yes Medical Record Reviewed: Yes Differential Diagnosis Colitis, C. difficile, gastroenteritis, diverticulitis Narrative Course Lab work, stool culture, C. difficile PCR, CT abdomen and pelvis have been ordered. The patient's lab work is notable for WBC count of 36, 11% bands, lactic acid 3.3, GFR 9. 1 L normal saline bolus ordered. CT abdomen and pelvis reveals CONCLUSION: 1. Extensive portal venous air which raises the possibility of bowel ischemia. Free intraperitoneal air is noted within the left upper quadrant suggestive of perforated viscus. Diffuse wall thickening involving the nondistended distal transverse colon, splenic flexure and descending colon raises possibility of ischemic colitis. Findings were called immediately to HALEY Pendleton at 6: 10 PM on 12/19/17. 2. Midline ventral abdominal wall hernia which is stable. 3. 3 mm calcified nonobstructing right renal calculus. 4. Bilateral renal cysts. The patient was given 2.25 mg of Zosyn and [address] Khan discussed with the radiologist as well as general surgeon Dr. Madison who would like a CTA of the abdomen and pelvis. Discussed with the patient's operations manager/coordinator Dr. Villagran and made him aware that the patient will require dialysis tomorrow secondary to IV contrast study today. He will consult during her hospitalization. CTA abdomen and pelvis CONCLUSION: 1. Portal venous gas present within the liver and within veins draining the colon near the splenic flexure suspicious for colonic ischemia. There is thickening of colon near the splenic flexure as well. No pneumatosis identified within bowel. 2. 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 Catheter in right femoral and iliac vein extending almost the entire course of the inferior vena cava. Markedly atrophic [place] kidneys. Renal osteodystrophy. Discussed with Dr. De La Fuente who is agreeable with admission. Sepsis Criteria SIRS Criteria (2 or more): Heart rate over 90, WBC > 47382, < 4000 or > 10% bands Severe Sepsis (+one): Lactate >2 Criteria Outcome: Meets severe sepsis criteria Diagnosis Primary Impression: Acute mesenteric arterial occlusion Additional Impressions: C. difficile colitis Severe sepsis Admitting Information Admitting Physician Requests: Admit Abhi,Herbert P. PA Dec 19, 2017 14:54
[2017-12-19] MEDS ORDERED: ONDANSETRON HCL 4 MG/2 ML VIAL IVP ONE (15:00)
[2017-12-19] MEDS: SODIUM CHLORIDE 0.9% FLUSH 10 ML FLUSH IV FLUSH PRN ×2 (16:31→17:30)
[2017-12-19 16:53] LABS: AUTOMATED NEUTROPHIL # 33.1 TH/MM3 (1.8-7.7); BASOPHIL # 0.1 TH/MM3 (0-0.2); BASOPHIL % 0.2 % (0.0-2.0); EOSINOPHIL # 0.3 TH/MM3 (0-0.4); EOSINOPHIL % 0.7 % (0.0-4.0); HEMATOCRIT 44.8 % (35.0-46.0); HEMOGLOBIN 13.6 GM/DL (11.6-15.3); LYMPH % 3.1 % (9.0-44.0); LYMPHOCYTE # 1.1 TH/MM3 (1.0-4.8); MEAN CORPUSCULAR HEMOGLOBIN 27.6 PG (27.0-34.0); MEAN CORPUSCULAR HGB CONC 30.4 % (32.0-36.0); MEAN PLATELET VOLUME 8.3 FL (7.0-11.0); MONO % 4.2 % (0.0-8.0); MONOCYTE # 1.5 TH/MM3 (0-0.9); NEUT % 91.8 % (16.0-70.0); PLATELET COUNT 374 TH/MM3 (150-450); RED BLOOD COUNT 4.92 MIL/MM3 (4.00-5.30); RED CELL DISTRIBUTION WIDTH 17.5 % (11.6-17.2)
[2017-12-19] MEDS ORDERED: SODIUM CHLOR 0.9% 1000 ML INJ 1,000 ML IV SCH (17:04)
[2017-12-19 17:06] LABS: ALKALINE PHOSPHATASE 100 U/L (45-117); PHOSPHORUS 2.3 MG/DL (2.5-4.9); TOTAL BILIRUBIN ADULT 0.6 MG/DL (0.2-1.0); TOTAL PROTEIN 10.1 GM/DL (6.4-8.2)
[2017-12-19] MEDS ORDERED: SODIUM CHLORID 0.9% 500 ML INJ 500 ML IV ONE (17:15)
[2017-12-19 17:18] LABS: ALBUMIN 3.4 GM/DL (3.4-5.0); ALT (GPT) 18 U/L (10-53); AST (GOT) 20 U/L (15-37); BICARBONATE 25.2 MEQ/L (21.0-32.0); BLOOD UREA NITROGEN 30 MG/DL (7-18); CALCIUM 8.5 MG/DL (8.5-10.1); CHLORIDE 99 MEQ/L (98-107); CREATININE 5.59 MG/DL (0.50-1.00); GLOMERULAR FILTRATION RATE 9 ML/MIN (>89); GLUCOSE,RANDOM 179 MG/DL (74-106); MAGNESIUM 1.9 MG/DL (1.5-2.5); SODIUM (NA) 135 MEQ/L (136-145)
[2017-12-19 17:30] VITALS: BP 104/54; PULSE 108; RESP 18; O2SAT 97
[2017-12-19 18:01] LABS: BANDS 11 % (0-6); LYMPHOCYTES 7 % (9-44); MONOCYTES 3 % (0-8); MYELOCYTES 1 % (0-0); POLYS (SEG NEUTROPHILS) 77 % (16-70)
[2017-12-19] MEDS ORDERED: metroNIDAZOLE 500 MG INJ 100 ML IV ONE (18:15)
[2017-12-19] MEDS ORDERED: PIPERACIL-TAZO 2.25 GM PREMIX 50 ML IV ONE (18:15)
--- NOTE | 2017-12-19 18:16 | RADRPT ---
EXAM DATE/TIME: 12/19/2017 17:20 [facility] COMPARISON: CT ABDOMEN & PELVIS W/O CONTRAST, September 11, 2016, 8:50. INDICATIONS : While having dialysis patient started having abdomen pain ORAL CONTRAST: No oral contrast ingested. RADIATION DOSE: 24.11 CTDIvol (mGy) MEDICAL HISTORY : Cardiovascular disease. Hypertension. Chronic obstructive pulmonary disease.Ulcers,diabetes renal claudia lure SURGICAL HISTORY : Cholecystectomy. Hysterectomy. ENCOUNTER: Initial ACUITY: 1 day PAIN SCALE: 8/10 LOCATION: Abdomen TECHNIQUE: Volumetric scanning of the abdomen and pelvis was performed. Using automated exposure control and ad justment of the mA and/or kV according to patient size, radiation dose was kept as low as reasonably achievable to obtain optimal diagnostic quality images. DICOM format image data is available electro nically for review and comparison. FINDINGS: LOWER LUNGS: The visualized lower lungs are clear. LIVER: Air is noted throughout the periphery of the liver suggestive of portal venous air. This finding ofte n indicates bowel ischemia. Findings were discussed with HALEY Pendleton and 6:10 PM on 12/19/17. SPLEEN: Normal size without lesion. PANCREAS: Within normal limits. KIDNEYS: The kidneys are small in size bilaterally. Bilateral renal cysts are noted. There is a tiny calcified nonobstructing right renal calculus measuring 2 mm. ADRENAL GLANDS: Within normal limits. VASCULAR: There is no aortic aneurysm. There is a right femoral dialysis catheter which extends to the level of the base of the heart within the inferior vena cava. BOWEL/MESENTERY: There are scattered extraluminal bubbles of air within the left upper quadrant suggesting perforated viscus. The splenic flexure and descending colon are diffusely thickened but nondistended. A portion of the distal transverse colon is also thickened and nondistended. These areas of the colon may repre sent areas of ischemic colitis. Clinical correlation is recommended. ABDOMINAL WALL: There is a stable midline ventral abdominal wall hernia. RETROPERITONEUM: There is no lymphadenopathy. BLADDER: No wall thickening or mass. REPRODUCTIVE: Within normal limits. INGUINAL: There is no lymphadenopathy or hernia. MUSCULOSKELETAL: Within normal limits for patient age. CONCLUSION: 1. Extensive portal venous air which raises the possibility of bowel ischemia. Free intraperitoneal a ir is noted within the left upper quadrant suggestive of perforated viscus. Diffuse wall thickening i nvolving the nondistended distal transverse colon, splenic flexure and descending colon raises possib ility of ischemic colitis. Findings were called immediately to HALEY Pendleton at 6:10 PM on . 2. Midline ventral abdominal wall hernia which is stable. 3. 3 mm calcified nonobstructing right renal calculus. 4. Bilateral renal cysts. Gaetano Matute MD on December 19, 2017 at 17:58 Board Certified Radiologist. This report was verified electronically.
[2017-12-19] MEDS ORDERED: MORPHINE SULFATE 4 MG/ML INJ IV PUSH ONE (18:30)
--- NOTE | 2017-12-19 18:33 | PD ---
Physical Exam Narrative Patient was seen and examined with my residential assistant. Data Data Last Documented VS Vital Signs Date Time Temp Pulse Resp B/P (MAP) Pulse Ox O2 Delivery O2 Flow Rate FiO2 12/19/17 14:48 97.6 113 16 165/102 (123) 97 Orders Orders Complete Blood Count With Diff (12/19/17 14:51) Comprehensive Metabolic Panel (12/19/17 14:51) Lipase (12/19/17 14:51) Lactic Acid (12/19/17 14:51) Ct Abd/Pel W/O Iv Contrast (12/19/17 14:51) Iv Access Insert/Monitor (12/19/17 14:51) Ecg Monitoring (12/19/17 14:51) Oximetry (12/19/17 14:51) Ondansetron Inj (Zofran Inj) (12/19/17 15:00) Sodium Chloride 0.9% Flush (Ns Flush) (12/19/17 15:00) Electrocardiogram (12/19/17 14:51) C Diff Toxin Pcr (12/19/17 14:51) Enteric Path (Stool) (12/19/17 14:51) Magnesium (Mg) (12/19/17 14:51) Phosphorus (Po4) (12/19/17 14:51) Sodium Chlorid 0.9% 500 Ml Inj (Ns 500 M (12/19/17 17:15) Sodium Chlor 0.9% 1000 Ml Inj (Ns 1000 M (12/19/17 17:04) Blood Culture (12/19/17 17:05) Vascular Access Team Consult/P PRN (12/19/17 17:37) Vascular Poc Ultrasound (12/19/17 ) Piperacil-Tazo 2.25 Gm Premix (Zosyn 2.2 (12/19/17 18:15) Metronidazole 500 Mg Inj (Flagyl 500 Mg (12/19/17 18:15) Lactic Acid Sepsis Protocol (12/19/17 18:21) Morphine Inj (Morphine Inj) (12/19/17 18:30) Cta Abd/Pel W Iv Contrast W 3d (12/19/17 ) Labs Laboratory Tests Test 12/19/17 16:07 White Blood Count 36.0 TH/MM3 Red Blood Count 4.92 MIL/MM3 Hemoglobin 13.6 GM/DL Hematocrit 44.8 % Mean Corpuscular Volume 91.0 FL Mean Corpuscular Hemoglobin 27.6 PG Mean Corpuscular Hemoglobin Concent 30.4 % Red Cell Distribution Width 17.5 % Platelet Count 374 TH/MM3 Mean Platelet Volume 8.3 FL Neutrophils (%) (Auto) 91.8 % Lymphocytes (%) (Auto) 3.1 % Monocytes (%) (Auto) 4.2 % Eosinophils (%) (Auto) 0.7 % Basophils (%) (Auto) 0.2 % Neutrophils # (Auto) 33.1 TH/MM3 Lymphocytes # (Auto) 1.1 TH/MM3 Monocytes # (Auto) 1.5 TH/MM3 Eosinophils # (Auto) 0.3 TH/MM3 Basophils # (Auto) 0.1 TH/MM3 CBC Comment AUTO DIFF Differential Total Cells Counted 100 Neutrophils % (Manual) 77 % Band Neutrophils % 11 % Lymphocytes % 7 % Monocytes % 3 % Eosinophils % 1 % Neutrophils # (Manual) 32.0 TH/MM3 Myelocytes 1 % Differential Comment FINAL DIFF MANUAL Platelet Estimate NORMAL Platelet Morphology Comment NORMAL Blood Urea Nitrogen 30 MG/DL Creatinine 5.59 MG/DL Random Glucose 179 MG/DL Total Protein 10.1 GM/DL Albumin 3.4 GM/DL Calcium Level 8.5 MG/DL Phosphorus Level 2.3 MG/DL Magnesium Level 1.9 MG/DL Alkaline Phosphatase 100 U/L Aspartate Amino Transf (AST/SGOT) 20 U/L Alanine Aminotransferase (ALT/SGPT) 18 U/L Total Bilirubin 0.6 MG/DL Sodium Level 135 MEQ/L Potassium Level 4.4 MEQ/L Chloride Level 99 MEQ/L Carbon Dioxide Level 25.2 MEQ/L Anion Gap 11 MEQ/L Estimat Glomerular Filtration Rate 9 ML/MIN Lactic Acid Level 3.3 mmol/L Lipase 217 U/L MDM Supervised Visit with PARVIZ: Yes Madhu Khan MD Dec 19, 2017 18:33
[2017-12-19] MEDS ORDERED: IOHEXOL 350 MG/ML 10 ML VIAL (for RAD DIAG) IVCONTRAST ONE (19:04)
[2017-12-19 19:19] LABS: LACTIC ACID SEPSIS PROTOCOL 2.4 mmol/L (0.4-2.0)
[2017-12-19] MEDS ORDERED: SODIUM CHLOR 0.9% 1000 ML INJ 1,000 ML IV PRN (19:37)
[2017-12-19] MEDS ORDERED: SODIUM CHLOR 0.9% 1000 ML INJ 1,000 ML OTHER PRN ×2 (19:37)
--- NOTE | 2017-12-19 19:37 | PD.CONS ---
HPI Service Nephrology Consult Requested By Dr. Castelan Reason for Consult ESRD management Primary Care Physician Unknown History of Present Illness Patient is a 57-year-old black female with history of end-stage renal disease, diabetes, hypertension, morbid obesity who was at dialysis Center complaining of abdominal pain nausea and diarrhea for the past 2 days patient could not complete the dialysis and one hour post left when she felt sharp abdominal pain and was sent to the emergency, the CT scan showed also will ischemic bowel, Air in portal venous system, bowel wall thickening,, to confirm this IV contrast was given an CT of abdomen was repeated, patient is complaining of abdominal pain and nausea. Review of Systems Constitutional: COMPLAINS OF: Fatigue Respiratory: COMPLAINS OF: Cough Gastrointestinal: COMPLAINS OF: Abdominal pain, Diarrhea, Nausea, Vomiting, Anorexia Musculoskeletal: COMPLAINS OF: Muscle aches Psychiatric: COMPLAINS OF: Anxiety Past Family Social History Allergies: Coded Allergies: levofloxacin (Unverified Allergy, Severe, Anaphylaxis, 12/19/17) ANAPHYLAXIS Past Medical History End-stage renal disease on hemodialysis Morbid obesity Diabetes Hypertension low BP Osteoarthritis of right foot Hyperlipidemia Vascular issues Past Surgical History parathyroidectomy Tenckhoff catheter placement Multiple AV fistulas and grafts Right foot toe amputation Partial Hysterectomy Appendectomy Reported Medications Reported Meds & Active Scripts Active [Silver Sulfadia 1% Crm (50 Gm)] 50 APPLIC/50 GM Cr 1 Applic TOPICAL BID Lmx Plus Topical (Lidocaine) 4 % Kit 1 Applic TOPICAL BID Hydrocodone-Acetamin 5-325 mg (Hydrocodone/Acetaminophen) 5 Mg-325 Mg Tablet 1 Tab PO Q4H PRN Aspirin EC (Aspirin) 81 Mg Tabdr 81 Mg PO DAILY Reported Combivent Respimat Inh (Ipratropium-Albuterol Inh) 20-100 Intermediate/Act Aero 2 Puff INH BID Gabapentin 300 Mg Cap 300 Mg PO HS Trazodone (Trazodone HCl) 100 Mg Tablet 100 Mg PO HS Calcium Carbonate 500 Mg Calcium (1250 Mg) Tab 2,000 Mg PO Q8HR 1,250 mg calcium carbonate (500 mg elemental calcium) Midodrine 10 Mg Tab 10 Mg PO DAILY Bupropion HCl ER 24 HR (Bupropion HCl) 150 Mg Tab 300 Mg PO DAILY Atorvastatin (Atorvastatin Calcium) 10 Mg Tab 10 Mg PO HS Pantoprazole (Pantoprazole Sodium) 40 Mg Tab 40 Mg PO DAILY Active Ordered Medications Current Medications Medications (Trade) Dose Ordered Sig/Mary Grace Route Start Time Stop Time Status Last Admin (NS Flush) 2 ml UNSCH PRN IV FLUSH 12/19/17 15:00 12/19/17 17:30 Family History Noncontributory Social History Denies smoking or alcohol use Physical Exam Vital Signs Vital Signs Date Time Temp Pulse Resp B/P (MAP) Pulse Ox O2 Delivery O2 Flow Rate FiO2 12/19/17 17:30 108 18 104/54 (71) 97 Room Air 12/19/17 14:48 97.6 113 16 165/102 (123) 97 Physical Exam GENERAL: Well-nourished, well-developed patient. SKIN: Warm and dry. HEAD: Normocephalic. EYES: No scleral icterus. No injection or drainage. NECK: Supple, trachea midline. No JVD or lymphadenopathy. CARDIOVASCULAR: Regular rate and rhythm without murmurs, gallops, or rubs. RESPIRATORY: Breath sounds equal bilaterally. No accessory muscle use. GASTROINTESTINAL: Abdomen tender, nondistended. EXTREMITIES: No cyanosis, or edema. Right groin permacath NEUROLOGICAL: Awake, alert, and oriented x 3. Non-focal. Laboratory Laboratory Tests Test 12/19/17 16:07 12/19/17 18:15 White Blood Count 36.0 Red Blood Count 4.92 Hemoglobin 13.6 Hematocrit 44.8 Mean Corpuscular Volume 91.0 Mean Corpuscular Hemoglobin 27.6 Mean Corpuscular Hemoglobin Concent 30.4 Red Cell Distribution Width 17.5 Platelet Count 374 Mean Platelet Volume 8.3 Neutrophils (%) (Auto) 91.8 Lymphocytes (%) (Auto) 3.1 Monocytes (%) (Auto) 4.2 Eosinophils (%) (Auto) 0.7 Basophils (%) (Auto) 0.2 Neutrophils # (Auto) 33.1 Lymphocytes # (Auto) 1.1 Monocytes # (Auto) 1.5 Eosinophils # (Auto) 0.3 Basophils # (Auto) 0.1 CBC Comment AUTO DIFF Differential Total Cells Counted 100 Neutrophils % (Manual) 77 Band Neutrophils % 11 Lymphocytes % 7 Monocytes % 3 Eosinophils % 1 Neutrophils # (Manual) 32.0 Myelocytes 1 Differential Comment FINAL DIFF MANUAL Platelet Estimate NORMAL Platelet Morphology Comment NORMAL Stool C. difficile Toxin (PCR) POSITIVE Stl C. difficile Toxin Epiderm 027 PRESUMPTIVE POSITIVE Blood Urea Nitrogen 30 Creatinine 5.59 Random Glucose 179 Total Protein 10.1 Albumin 3.4 Calcium Level 8.5 Phosphorus Level 2.3 Magnesium Level 1.9 Alkaline Phosphatase 100 Aspartate Amino Transf (AST/SGOT) 20 Alanine Aminotransferase (ALT/SGPT) 18 Total Bilirubin 0.6 Sodium Level 135 Potassium Level 4.4 Chloride Level 99 Carbon Dioxide Level 25.2 Anion Gap 11 Estimat Glomerular Filtration Rate 9 Lactic Acid Level 3.3 2.4 Lipase 217 Date/Time Source Procedure Growth Status 12/19/17 16:07 Stool Stool Pending Received Result Diagram: 12/19/17 1607 12/19/17 1607 Imaging Last Impressions Abdomen/Pelvis CT 12/19/17 1451 Signed Impressions: Service Date/Time: Tuesday, December 19, 2017 17:20 - CONCLUSION: 1. Extensive portal venous air which raises the possibility of bowel ischemia. Free intraperitoneal air is noted within the left upper quadrant suggestive of perforated viscus. Diffuse wall thickening involving the nondistended distal transverse colon, splenic flexure and descending colon raises possibility of ischemic colitis. Findings were called immediately to HALEY Pendleton at 6: 10 PM on 12/19/17. 2. Midline ventral abdominal wall hernia which is stable. 3. 3 mm calcified nonobstructing right renal calculus. 4. Bilateral renal cysts. Gaetano Matute MD Assessment and Plan Problem List: (1) ESRD (end stage renal disease) ICD Codes: N18.6 - End-stage renal disease Status: Chronic Plan: Patient is doing poorly as outpatient frequent admission to the hospital She could not complete her dialysis Received IV contrast We will run her dialysis again tomorrow Continue supportive care (2) Abdominal pain ICD Codes: R10.9 - Unspecified abdominal pain Plan: Scamming problems been rule out repeat CT scan results pending surgery consult (3) Morbid obesity ICD Codes: E66.01 - Morbid (severe) obesity due to excess calories Status: Chronic Plan: Chronic (4) Hypotension ICD Codes: I95.9 - Hypotension Status: Resolved Plan: Chronic issues and takes aaronodrine Frank Villagran MD Dec 19, 2017 19:37
[2017-12-19] MEDS ORDERED: ALBUMIN 25% INJ 100 ML IV PRN (19:45)
[2017-12-19] MEDS ORDERED: MANNITOL 12.5 GM/50 ML VIAL IV PRN (19:45)
[2017-12-19] MEDS ORDERED: ACETAMINOPHEN 325 MG TAB PO PRN ×2 (19:45→20:45)
[2017-12-19] MEDS ORDERED: SODIUM CHLORIDE 0.9% FLUSH 10 ML FLUSH IV FLUSH PRN ×2 (19:45→20:45)
[2017-12-19] MEDS ORDERED: GELATIN 12 MM/7 MM FOAM TOP PRN (19:45)
[2017-12-19] MEDS ORDERED: HEPARIN SODIUM - IV 10,000 UNITS/10 ML VIAL IV FLUSH PRN (19:45)
[2017-12-19] MEDS ORDERED: NITROGLYCERIN 0.4 MG SL 25 TABS/BTL SL PRN (19:45)
[2017-12-19] MEDS ORDERED: cloNIDine HCL 0.1 MG TAB PO PRN (19:45)
--- NOTE | 2017-12-19 19:46 | RADRPT ---
EXAM DATE/TIME: 12/19/2017 18:52 [place] COMPARISON: No previous studies available for comparison. INDICATIONS : Evaluate for ischemic bowel. IV CONTRAST: 100 cc Omnipaque 350 (iohexol) IV ORAL CONTRAST: No oral contrast ingested. RADIATION DOSE: 7.53 CTDIvol (mGy) MEDICAL HISTORY : Cardiovascular disease. Hypertension. Chronic obstructive pulmonary disease.Renal failure. SURGICAL HISTORY : Hysterectomy. Appendectomy.Cholecystectomy.AV shunt. ENCOUNTER: Initial ACUITY: 1 day PAIN SCALE: 5/10 LOCATION: Bilateral abdomen. TECHNIQUE: Volumetric scanning was performed using a multi-row detector CT scanner. The data was post processed with a variety of visualization algorithms including full volume maximum intensity projection, multi -planar sliding thin slab reformation, curved planar reformation, and surface rendering techniques. Using automated exposure control and adjustment of the mA and/or kV according to patient size, radiat ion dose was kept as low as reasonably achievable to obtain optimal diagnostic quality images. DICOM format image data is available electronically for review and comparison. FINDINGS: There is moderate to severe atherosclerotic change in the abdominal aorta and branches. Proximal carmela ac and superior mesenteric arteries are patent. 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 There is a right femoral venous catheter that extends throughout the left length of the i nferior vena cava. There is portal venous gas present predominantly in the anterior liver. There is also air within vein s draining what appears to be the colon near the splenic flexure with some mural thickening of colon at this location. This could be related to colonic ischemia. No pneumatosis is identified in small or large bowel. There is no free fluid or free intraperitoneal air. The [place] kidneys are markedly atrophic. Spleen, adrenals and pancreas are unremarkable. Bones are sclerotic likely from renal osteodystrophy. CONCLUSION: 1. Portal venous gas present within the liver and within veins draining the colon near the splenic fl exure suspicious for colonic ischemia. There is thickening of colon near the splenic flexure as well. No pneumatosis identified within bowel. 2. 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 Catheter in right femoral and iliac vein extending almost the entire course of the inferior vena cava . Markedly atrophic [place] kidneys. Renal osteodystrophy. Dmitry Anton MD on December 19, 2017 at 19:37 Board Certified Radiologist. This report was verified electronically.
[2017-12-19 20:00] VITALS: BP 110/70; PULSE 115; RESP 20; O2SAT 96
--- NOTE | 2017-12-19 20:09 | PD.CONS ---
HPI Service General Surgery Consult Requested By Dr. Khan Reason for Consult Abdominal pain, portal venous air Primary Care Physician Unknown History of Present Illness 57 yo F with ESRD on dialysis, CHF, COPD, morbid obesity presents with abdominal pain and diarrhea for two days. She was noted to have WBC 36,000, mild lactic acidosis, and concerns for diffuse peritonitis. CT a/p reveals portal venous air, colon thickening, and c dif came back positive here in ED. Review of Systems Constitutional: DENIES: Fever, Chills Eyes: DENIES: Eye inflammation, Eye pain Ears, nose, mouth, throat: DENIES: Nasal discharge, Oral lesions Respiratory: DENIES: Cough, Shortness of breath Cardiovascular: DENIES: Chest pain, Palpitations Gastrointestinal: COMPLAINS OF: Abdominal pain, Vomiting Musculoskeletal: DENIES: Back pain, Neck pain Integumentary: DENIES: Pruritus, Rash Neurologic: DENIES: Paresthesias, Seizures Past Family Social History Past Medical History HTN ESRD CHF COPD Morbid obesity Past Surgical History hysterectomy appendectomy laparoscopic cholecystectomy Reported Medications Reported Meds & Active Scripts Active [Silver Sulfadia 1% Crm (50 Gm)] 50 APPLIC/50 GM Cr 1 Applic TOPICAL BID Lmx Plus Topical (Lidocaine) 4 % Kit 1 Applic TOPICAL BID Hydrocodone-Acetamin 5-325 mg (Hydrocodone/Acetaminophen) 5 Mg-325 Mg Tablet 1 Tab PO Q4H PRN Aspirin EC (Aspirin) 81 Mg Tabdr 81 Mg PO DAILY Reported Combivent Respimat Inh (Ipratropium-Albuterol Inh) 20-100 Shelter/Act Aero 2 Puff INH BID Gabapentin 300 Mg Cap 300 Mg PO HS Trazodone (Trazodone HCl) 100 Mg Tablet 100 Mg PO HS Calcium Carbonate 500 Mg Calcium (1250 Mg) Tab 2,000 Mg PO Q8HR 1,250 mg calcium carbonate (500 mg elemental calcium) Midodrine 10 Mg Tab 10 Mg PO DAILY Bupropion HCl ER 24 HR (Bupropion HCl) 150 Mg Tab 300 Mg PO DAILY Atorvastatin (Atorvastatin Calcium) 10 Mg Tab 10 Mg PO HS Pantoprazole (Pantoprazole Sodium) 40 Mg Tab 40 Mg PO DAILY Allergies: Coded Allergies: levofloxacin (Unverified Allergy, Severe, Anaphylaxis, 12/19/17) ANAPHYLAXIS Active Ordered Medications Current Medications Medications (Trade) Dose Ordered Sig/Mary Grace Route Start Time Stop Time Status Last Admin (NS Flush) 2 ml UNSCH PRN IV FLUSH 12/19/17 15:00 12/19/17 17:30 Sodium Chloride 1,000 ml @ 0 mls/hr Q0M PRN OTHER 12/19/17 19:37 UNV (Heparin Inj) 8,000 units UNSCH PRN IV FLUSH 12/19/17 19:45 UNV Sodium Chloride 1,000 ml @ 200 mls/hr Q5H PRN IV 12/19/17 19:37 UNV Sodium Chloride 1,000 ml @ 0 mls/hr Q0M PRN OTHER 12/19/17 19:37 UNV (Mannitol Inj) 12.5 gm UNSCH PRN IV 12/19/17 19:45 UNV Albumin Human 100 ml @ 60 mls/hr UNSCH PRN IV 12/19/17 19:45 UNV (NS Flush) 5 ml UNSCH PRN IV FLUSH 12/19/17 19:45 UNV (Heparin Inj) UNSCH PRN .XX 12/19/17 19:45 UNV (Gentamicin Inj) 20 mg UNSCH PRN OTHER 12/19/17 19:45 UNV (Zofran Inj) 4 mg UNSCH PRN IV PUSH 12/19/17 19:45 UNV (Tylenol) 650 mg UNSCH PRN PO 12/19/17 19:45 UNV (Benadryl) 25 mg UNSCH PRN PO 12/19/17 19:45 UNV (Nitrostat Sl) 0.4 mg UNSCH PRN SL 12/19/17 19:45 UNV (Catapres) 0.1 mg UNSCH PRN PO 12/19/17 19:45 UNV (Gelfoam 12 Mm/7 Mm Top) 1 foam UNSCH PRN TOP 12/19/17 19:45 UNV Family History Noncontributory Social History No ETOH tobacco or drug use. Physical Exam Vital Signs Vital Signs Date Time Temp Pulse Resp B/P (MAP) Pulse Ox O2 Delivery O2 Flow Rate FiO2 12/19/17 17:30 108 18 104/54 (71) 97 Room Air 12/19/17 14:48 97.6 113 16 165/102 (123 97 Physical Exam GENERAL: Awake and alert. No acute distress. Cooperative. Obese. HEAD: Normocephalic. Atraumatic. EYES: Pupils equal round and reactive to light bilaterally. No scleral icterus. NECK: Trachea midline. CHEST: Nonlabored breathing. No respiratory distress. CARDIOVASCULAR: Sinus tachycardia. ABDOMEN: Obese. multiple scars. Diffuse severe ttp, + rebound, not rigid. EXTREMITIES: No cyanosis or edema. S/p amputation multiple toes. SKIN: Warm, dry, nonjaundiced. Laboratory Laboratory Tests Test 12/19/17 16:07 12/19/17 18:15 White Blood Count 36.0 Red Blood Count 4.92 Hemoglobin 13.6 Hematocrit 44.8 Mean Corpuscular Volume 91.0 Mean Corpuscular Hemoglobin 27.6 Mean Corpuscular Hemoglobin Concent 30.4 Red Cell Distribution Width 17.5 Platelet Count 374 Mean Platelet Volume 8.3 Neutrophils (%) (Auto) 91.8 Lymphocytes (%) (Auto) 3.1 Monocytes (%) (Auto) 4.2 Eosinophils (%) (Auto) 0.7 Basophils (%) (Auto) 0.2 Neutrophils # (Auto) 33.1 Lymphocytes # (Auto) 1.1 Monocytes # (Auto) 1.5 Eosinophils # (Auto) 0.3 Basophils # (Auto) 0.1 CBC Comment AUTO DIFF Differential Total Cells Counted 100 Neutrophils % (Manual) 77 Band Neutrophils % 11 Lymphocytes % 7 Monocytes % 3 Eosinophils % 1 Neutrophils # (Manual) 32.0 Myelocytes 1 Differential Comment FINAL DIFF MANUAL Platelet Estimate NORMAL Platelet Morphology Comment NORMAL Stool C. difficile Toxin (PCR) POSITIVE Stl C. difficile Toxin Epiderm 027 PRESUMPTIVE POSITIVE Blood Urea Nitrogen 30 Creatinine 5.59 Random Glucose 179 Total Protein 10.1 Albumin 3.4 Calcium Level 8.5 Phosphorus Level 2.3 Magnesium Level 1.9 Alkaline Phosphatase 100 Aspartate Amino Transf (AST/SGOT) 20 Alanine Aminotransferase (ALT/SGPT) 18 Total Bilirubin 0.6 Sodium Level 135 Potassium Level 4.4 Chloride Level 99 Carbon Dioxide Level 25.2 Anion Gap 11 Estimat Glomerular Filtration Rate 9 Lactic Acid Level 3.3 2.4 Lipase 217 Date/Time Source Procedure Growth Status 12/19/17 16:07 Stool Stool Pending Received Result Diagram: 12/19/17 8654 12/19/17 1607 Imaging Last Impressions Abdomen/Pelvis CT 12/19/17 1451 Signed Impressions: Service Date/Time: Tuesday, December 19, 2017 17:20 - CONCLUSION: 1. Extensive portal venous air which raises the possibility of bowel ischemia. Free intraperitoneal air is noted within the left upper quadrant suggestive of perforated viscus. Diffuse wall thickening involving the nondistended distal transverse colon, splenic flexure and descending colon raises possibility of ischemic colitis. Findings were called immediately to [facility] at 6: 10 PM on 12/19/17. 2. Midline ventral abdominal wall hernia which is stable. 3. 3 mm calcified nonobstructing right renal calculus. 4. Bilateral renal cysts. Gaetano Matute MD Assessment and Plan Assessment and Plan 57 yo F multiple medical conditions, ESRD, s/p partial dialysis today, found to have portal venous gas, c dif positive, likely colonic ischemia. She is a very poor operative candidate especially for possible total colectomy with end ileostomy. I would like to try resuscitation and antibiotic treatment overnight , see if she has any improvement. If she decompensates can proceed to OR tomorrow. I discussed the risk of both nonoperative and operative management with the patient, which both include critical illness, possible intubation and ventilation, and even . She understands our plan of treatment at this time. Discussed in detail with Dr. Khan, Herbert DE LEON, and Dr. De La Fuente. Images reviewed with Dr. Anotn radiology. Prosper Madison MD Dec 19, 2017 20:09
--- NOTE | 2017-12-19 20:43 | HHI.HP ---
HPI Service Critical Care Medicine Primary Care Physician Unknown Admission Diagnosis Mesenteric artery occlusion, C. difficile colitis, sepsis Diagnosis: Travel History International Travel<30 Days: No Contact w/Intl Traveler <30 Da: No Traveled to Known Affected Are: No History of Present Illness 57-year-old unfortunate -Cypriot female with history of end-stage renal disease, diabetes, hypertension, morbid obesity she was at dialysis Center complaining of abdominal pain nausea and diarrhea for the past 2 days. The patient could not complete dialysis due to worsening nausea. One hour after she left dialysis center she felt sharp abdominal pain and was sent to the emergency department. The CT scan showed ischemic colitis, Air in portal venous system, bowel wall thickening. The PCR also positive for Clostridium difficile. The patient was examined by Dr. Madison/general surgery with recommendations of conservative management at this time since the patient is extremely poor candidate for surgical intervention. Review of Systems Constitutional: COMPLAINS OF: Diaphoretic episodes, Change in appetite, DENIES : Fatigue, Fever, Weight gain, Weight loss, Chills, Dizziness, Night Sweats Endocrine: DENIES: Abnorml menstrual pattern, Heat/cold intolerance, Polydipsia , Polyuria, Polyphagia Eyes: DENIES: Blurred vision, Diplopia, Eye inflammation, Eye pain, Vision loss , Photosensitivity, Double Vision Ears, nose, mouth, throat: DENIES: Tinnitus, Hearing loss, Vertigo, Nasal discharge, Oral lesions, Throat pain, Hoarseness, Ear Pain, Running Nose, Epistaxis, Sinus Pain, Toothache, Odynophagia Respiratory: DENIES: Apneas, Cough, Snoring, Wheezing, Hemoptysis, Sputum production, Shortness of breath Cardiovascular: DENIES: Chest pain, Palpitations, Syncope, Dyspnea on Exertion , PND, Lower Extremity Edema, Orthopnea, Claudication Gastrointestinal: COMPLAINS OF: Abdominal pain, Diarrhea, Nausea, Vomiting, Anorexia, DENIES: Black stools, Bloody stools, Constipation, Difficulty Swallowing Genitourinary: DENIES: Abnormal vaginal bleeding, Dysmenorrhea, Dyspareunia, Sexual dysfunction, Urinary frequency, Urinary incontinence, Urgency, Hematuria , Dysuria, Nocturia, Vaginal discharge Musculoskeletal: DENIES: Joint pain, Muscle aches, Stiffness, Joint Swelling, Back pain, Neck pain Integumentary: DENIES: Abnormal pigmentation, Pruritus, Rash, Nail changes, Breast masses, Breast skin changes, Nipple discharge Hematologic/lymphatic: DENIES: Bruising, Lymphadenopathy Immunologic/allergic: DENIES: Eczema, Urticaria Neurologic: COMPLAINS OF: Abnormal gait, DENIES: Headache, Localized weakness, Paresthesias, Seizures, Speech Problems, Tremor, Poor Balance Psychiatric: DENIES: Anxiety, Confusion, Mood changes, Depression, Hallucinations, Agitation, Suicidal Ideation, Homicidal Ideation, Delusions Past Family Social History Allergies: Coded Allergies: levofloxacin (Unverified Allergy, Severe, Anaphylaxis, 12/19/17) ANAPHYLAXIS Past Medical History Diabetes. Diet controlled. Hyperlipidemia CHF COPD ESRD on hemodialysis Baseline hypotension on midodrine Hypothyroidism Anxiety/depression Neuropathy Past Surgical History AV fistula placements Cholecystectomy Parathyroidectomy Cataract removal Hysterectomy Appendectomy Right first and second toe amputations Right groin permacath placements Abdominal pertinent catheter placement and removal Dental extractions Reported Medications Reported Meds & Active Scripts Active [Silver Sulfadia 1% Crm (50 Gm)] 50 APPLIC/50 GM Cr 1 Applic TOPICAL BID Lmx Plus Topical (Lidocaine) 4 % Kit 1 Applic TOPICAL BID Hydrocodone-Acetamin 5-325 mg (Hydrocodone/Acetaminophen) 5 Mg-325 Mg Tablet 1 Tab PO Q4H PRN Aspirin EC (Aspirin) 81 Mg Tabdr 81 Mg PO DAILY Reported Combivent Respimat Inh (Ipratropium-Albuterol Inh) 20-100 [facility]/Act Aero 2 Puff INH BID Gabapentin 300 Mg Cap 300 Mg PO HS Trazodone (Trazodone HCl) 100 Mg Tablet 100 Mg PO HS Calcium Carbonate 500 Mg Calcium (1250 Mg) Tab 2,000 Mg PO Q8HR 1,250 mg calcium carbonate (500 mg elemental calcium) Midodrine 10 Mg Tab 10 Mg PO DAILY Bupropion HCl ER 24 HR (Bupropion HCl) 150 Mg Tab 300 Mg PO DAILY Atorvastatin (Atorvastatin Calcium) 10 Mg Tab 10 Mg PO HS Pantoprazole (Pantoprazole Sodium) 40 Mg Tab 40 Mg PO DAILY Active Ordered Medications Current Medications Medications (Trade) Dose Ordered Sig/Mary Grace Route PRN Reason Start Time Stop Time Status Last Admin Dose Admin Sodium Chloride (NS Flush) 2 ml UNSCH PRN IV FLUSH FLUSH AFTER USING IV ACCESS 12/19/17 15:00 12/19/17 17:30 Sodium Chloride 1,000 ml @ 0 mls/hr Q0M PRN OTHER For Prime & Rinse Back 12/19/17 19:37 Heparin Sodium (Porcine) (Heparin Inj) 8,000 units UNSCH PRN IV FLUSH WITH DIALYSIS 12/19/17 19:45 Sodium Chloride 1,000 ml @ 200 mls/hr Q5H PRN IV WITH DIALYSIS 12/19/17 19:37 Sodium Chloride 1,000 ml @ 0 mls/hr Q0M PRN OTHER WITH DIALYSIS 12/19/17 19:37 Mannitol (Mannitol Inj) 12.5 gm UNSCH PRN IV WITH DIALYSIS 12/19/17 19:45 Albumin Human 100 ml @ 60 mls/hr UNSCH PRN IV WITH DIALYSIS 12/19/17 19:45 Sodium Chloride (NS Flush) 5 ml UNSCH PRN IV FLUSH WITH DIALYSIS 12/19/17 19:45 Heparin Sodium (Porcine) (Heparin Inj) UNSCH PRN .XX WITH DIALYSIS 12/19/17 19:45 Gentamicin Sulfate (Gentamicin Inj) 20 mg UNSCH PRN OTHER WITH DIALYSIS 12/19/17 19:45 Ondansetron HCl (Zofran Inj) 4 mg UNSCH PRN IV PUSH WITH DIALYSIS 12/19/17 19:45 12/19/17 21:47 Acetaminophen (Tylenol) 650 mg UNSCH PRN PO for headach, pain, temp > 101F 12/19/17 19:45 Diphenhydramine HCl (Benadryl) 25 mg UNSCH PRN PO for hives/itching/anaphylaxis 12/19/17 19:45 Nitroglycerin (Nitrostat Sl) 0.4 mg UNSCH PRN SL CHEST PAIN 12/19/17 19:45 Clonidine (Catapres) 0.1 mg UNSCH PRN PO for BP > 180/100 X 2 readings 12/19/17 19:45 Gelatin (Gelfoam 12 Mm/7 Mm Top) 1 foam UNSCH PRN TOP SEE LABEL COMMENTS 12/19/17 19:45 Metronidazole 100 ml @ 100 mls/hr Q6H IV 12/20/17 02:00 Vancomycin HCl (VANCOMYCIN for oral use only) 500 mg QID PO 12/19/17 21:00 12/19/17 21:36 Aspirin (Ecotrin Ec) 81 mg DAILY PO 12/20/17 09:00 UNV Atorvastatin Calcium (Lipitor) 10 mg HS PO 12/19/17 21:00 UNV Bupropion HCl (Wellbutrin Xl 24 Hr) 300 mg DAILY PO 12/20/17 09:00 UNV Calcium Carbonate (Oscal) 2,000 mg Q8HR PO 12/19/17 22:00 UNV Lidocaine (L-M-X 4 Cream) 1 applic BID TOPICAL 12/19/17 21:00 UNV Midodrine (Proamatine) 10 mg DAILY PO 12/20/17 09:00 UNV Non-Formulary Medication 2 puff BID INH 12/19/17 21:00 UNV Non-Formulary Medication 100 mg HS PO 12/19/17 21:00 UNV Sodium Chloride (NS Flush) 2 ml UNSCH PRN IV FLUSH FLUSH AFTER USING IV ACCESS 12/19/17 20:45 UNV Sodium Chloride (NS Flush) 2 ml BID IV FLUSH 12/19/17 21:00 UNV Acetaminophen (Tylenol) 650 mg Q6H PRN PO PAIN 1-5 AND/OR FEVER >101F 12/19/17 20:45 Hydromorphone HCl (Dilaudid Pf Inj) 1 mg Q4H PRN IV PUSH PAIN SCALE 6 TO 10 12/19/17 20:45 12/19/17 21:47 Famotidine (Pepcid Inj) 20 mg Q12HR IV PUSH 12/19/17 21:00 UNV Lorazepam (Ativan Inj) 1 mg Q1H PRN IV PUSH Agitation/Sedation 12/19/17 20:45 UNV Ondansetron HCl (Zofran Inj) 4 mg Q6H PRN IV PUSH NAUSEA OR VOMITING 12/19/17 20:45 UNV Temazepam (Restoril) 15 mg HS PRN PO INSOMNIA 12/19/17 20:45 UNV Albuterol/ Ipratropium (Duoneb Neb) 1 ampule Q2HR NEB PRN INH WHEEZING 12/19/17 20:45 UNV Heparin Sodium (Porcine) (Heparin Inj) 5,000 units Q8H SQ 12/19/17 20:45 UNV Miscellaneous Information 1 Q361D XX 12/19/17 20:45 UNV Chlorhexidine Gluconate (Chlorhexidine 2% Cloth) 3 pack Taper DAILY@04 TOP 12/20/17 04:00 12/16/18 03:59 UNV Chlorhexidine Gluconate (Chlorhexidine 2% Cloth) 3 pack UNSCH PRN TOP HYGIENIC CARE 12/19/17 20:45 UNV Senna/Docusate Sodium (Yelena-Colace) 1 tab BID PO 12/19/17 21:00 UNV Magnesium Hydroxide (Milk Of Magnesia Liq) 30 ml Q12H PRN PO Mild constipation 12/19/17 20:45 UNV Sennosides (Senokot) 17.2 mg Q12H PRN PO Moderate constipation 12/19/17 20:45 UNV Bisacodyl (Dulcolax Supp) 10 mg DAILY PRN RECTAL SEVERE CONSITIPATION 12/19/17 20:45 UNV Lactulose (Lactulose Liq) 30 ml DAILY PRN PO SEVERE CONSITIPATION 12/19/17 20:45 UNV Vancomycin HCl (Vancomycin 25 Mg/ml Liq) 125 mg QID PO 12/19/17 21:00 UNV Metronidazole 100 ml @ 100 mls/hr Q6H IV 12/19/17 20:45 UNV Sodium Bicarbonate 150 meq/Dextrose 1,150 ml @ 75 mls/hr [id number] IV 12/19/17 21:30 UNV Family History Mother with diabetes and heart disease. Further with prostate cancer. Social History Used to smoke since age of [age] years old. Denies any alcohol abuse or drug abuse. Lives at home with her daughter. Mostly bedbound and wheelchair-bound Physical Exam Vital Signs Vital Signs Date Time Temp Pulse Resp B/P (MAP) Pulse Ox O2 Delivery O2 Flow Rate FiO2 12/19/17 20:00 115 20 110/70 (83) 96 Room Air 12/19/17 17:30 108 18 104/54 (71) 97 Room Air 12/19/17 14:48 97.6 113 16 165/102 (123) 97 Physical Exam GENERAL: Morbidly obese female awake and alert. No acute distress. Cooperative. HEAD: Normocephalic. Atraumatic. EYES: Pupils equal round and reactive to light bilaterally. No scleral icterus. NECK: Trachea midline. CHEST: Nonlabored breathing. No respiratory distress. CARDIOVASCULAR: Sinus tachycardia. ABDOMEN: Obese. multiple scars. Diffuse severe ttp, + rebound, not rigid. EXTREMITIES: No cyanosis or edema. S/p amputation multiple of toes. SKIN: Warm, dry, nonjaundiced. NEURO: Alert awake and oriented 3, moves all 4 extremities without weakness Laboratory Laboratory Tests Test 12/19/17 16:07 12/19/17 18:15 White Blood Count 36.0 Red Blood Count 4.92 Hemoglobin 13.6 Hematocrit 44.8 Mean Corpuscular Volume 91.0 Mean Corpuscular Hemoglobin 27.6 Mean Corpuscular Hemoglobin Concent 30.4 Red Cell Distribution Width 17.5 Platelet Count 374 Mean Platelet Volume 8.3 Neutrophils (%) (Auto) 91.8 Lymphocytes (%) (Auto) 3.1 Monocytes (%) (Auto) 4.2 Eosinophils (%) (Auto) 0.7 Basophils (%) (Auto) 0.2 Neutrophils # (Auto) 33.1 Lymphocytes # (Auto) 1.1 Monocytes # (Auto) 1.5 Eosinophils # (Auto) 0.3 Basophils # (Auto) 0.1 CBC Comment AUTO DIFF Differential Total Cells Counted 100 Neutrophils % (Manual) 77 Band Neutrophils % 11 Lymphocytes % 7 Monocytes % 3 Eosinophils % 1 Neutrophils # (Manual) 32.0 Myelocytes 1 Differential Comment FINAL DIFF MANUAL Platelet Estimate NORMAL Platelet Morphology Comment NORMAL Stool C. difficile Toxin (PCR) POSITIVE Stl C. difficile Toxin Epiderm 027 PRESUMPTIVE POSITIVE Blood Urea Nitrogen 30 Creatinine 5.59 Random Glucose 179 Total Protein 10.1 Albumin 3.4 Calcium Level 8.5 Phosphorus Level 2.3 Magnesium Level 1.9 Alkaline Phosphatase 100 Aspartate Amino Transf (AST/SGOT) 20 Alanine Aminotransferase (ALT/SGPT) 18 Total Bilirubin 0.6 Sodium Level 135 Potassium Level 4.4 Chloride Level 99 Carbon Dioxide Level 25.2 Anion Gap 11 Estimat Glomerular Filtration Rate 9 Lactic Acid Level 3.3 2.4 Lipase 217 Date/Time Source Procedure Growth Status 12/19/17 16:07 Stool Stool - Final NO ENTERIC PATHOGENS DETECTED BY PCR... Complete Result Diagram: 12/19/17 1607 12/19/17 1607 Imaging Last 24 hours Impressions Abdomen/Pelvis CT 12/19/17 1451 Signed Impressions: Service Date/Time: Tuesday, December 19, 2017 17:20 - CONCLUSION: 1. Extensive portal venous air which raises the possibility of bowel ischemia. Free intraperitoneal air is noted within the left upper quadrant suggestive of perforated viscus. Diffuse wall thickening involving the nondistended distal transverse colon, splenic flexure and descending colon raises possibility of ischemic colitis. Findings were called immediately to HALEY Pendleton at 6: 10 PM on 12/19/17. 2. Midline ventral abdominal wall hernia which is stable. 3. 3 mm calcified nonobstructing right renal calculus. 4. Bilateral renal cysts. Gaetano Matute MD Abdomen/Pelvis CT 12/19/17 0000 Signed Impressions: Service Date/Time: Tuesday, December 19, 2017 18:52 - CONCLUSION: 1. Portal venous gas present within the liver and within veins draining the colon near the splenic flexure suspicious for colonic ischemia. There is thickening of colon near the splenic flexure as well. No pneumatosis identified within bowel. 2. 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 Catheter in right femoral and iliac vein extending almost the entire course of the inferior vena cava. Markedly atrophic [place] kidneys. Renal osteodystrophy. MD Giselle Love VTE Risk Assessment Caprini VTE Risk Assessment: Mod/High Risk (score >= 2) Caprini Risk Assessment Model Point Value = 1 Point Value = 2 Point Value = 3 Point Value = 5 Age 41-60 Minor surgery BMI > 25 kg/m2 Swollen legs Varicose veins or History of unexplained or recurrent spontaneous Oral contraceptives or hormone replacement Sepsis (< 1 month) Serious lung disease, including pneumonia (< 1 month) Abnormal pulmonary function Acute myocardial infarction Congestive heart failure (< 1 month) History of inflammatory bowel disease Medical patient at bed rest Age 61-74 Arthroscopic surgery Major open surgery (> 45 min) Laparoscopic surgery (> 45 min) Malignancy Confined to bed (> 72 hours) Immobilizing plaster cast Central venous access Age >= 75 History of VTE Family history of VTE Factor V Leiden Prothrombin [id number] Lupus anticoagulant Anticardiolipin antibodies Elevated serum homocysteine Heparin-induced thrombocytopenia Other congenital or acquired thrombophilia Stroke (< 1 month) Elective arthroplasty Hip, pelvis, or leg fracture Acute spinal cord injury (< 1 month) Prophylaxis Regimen Total Risk Factor Score Risk Level Prophylaxis Regimen 0-1 Low Early ambulation 2 Moderate Order ONE of the following: *Sequential Compression Device (SCD) *Heparin 5000 units SQ BID 3-4 Higher Order ONE of the following medications: *Heparin 5000 units SQ TID *Enoxaparin/Lovenox 40 mg SQ daily (WT < 150 kg, CrCl > 30 mL/min) *Enoxaparin/Lovenox 30 mg SQ daily (WT < 150 kg, CrCl > 10-29 mL/min) *Enoxaparin/Lovenox 30 mg SQ BID (WT < 150 kg, CrCl > 30 mL/min) AND/OR *Sequential Compression Device (SCD) 5 or more Highest Order ONE of the following medications: *Heparin 5000 units SQ TID (Preferred with Epidurals) *Enoxaparin/Lovenox 40 mg SQ daily (WT < 150 kg, CrCl > 30 mL/min) *Enoxaparin/Lovenox 30 mg SQ daily (WT < 150 kg, CrCl > 10-29 mL/min) *Enoxaparin/Lovenox 30 mg SQ BID (WT < 150 kg, CrCl > 30 mL/min) AND *Sequential Compression Device (SCD) Assessment and Plan Assessment and Plan Ischemic bowel -IV hydration -Sodium bicarbonate -Monitor lactic acidosis -General surgery following C. difficile colitis -Vancomycin p.o. and enema -IV Flagyl ESRD -HD per nephrology Diabetes -Insulin sliding scale Hyperlipidemia -Atorvastatin COPD -DuoNeb's scheduled and as needed -No exacerbation no indication for steroid -O2 nasal cannula to keep sats above Hypothyroidism -Levothyroxine Anxiety/depression -Lorazepam as needed DVT GI prophylaxis -Bernard's and SCDs -Subcu heparin -Pepcid Critical Care: The total critical care time was 35 minutes. Time to perform other separately billable procedures was not included in the critical care time. Shay De La Fuente MD Dec 19, 2017 8:43 pm
[2017-12-19] MEDS ORDERED: BISACODYL 10 MG SUPP RECTAL PRN (20:45)
[2017-12-19] MEDS ORDERED: CHLORHEXIDINE GLUCONATE 2 % 1 PACK (2 CLOTHS) TOP PRN (20:45)
[2017-12-19] MEDS ORDERED: SENNOSIDES 8.6 MG TAB PO PRN (20:45)
[2017-12-19] MEDS ORDERED: LACTULOSE SYRUP 20 GM/30 ML CUP PO PRN (20:45)
[2017-12-19] MEDS ORDERED: MAGNESIUM HYDROXIDE SUSP 30 ML CUP PO PRN (20:45)
[2017-12-19] MEDS ORDERED: RESP: ALBUTEROL 2.5 MG/IPRATROPIUM 0.5 MG NEB (PRN) INH (20:45)
[2017-12-19] MEDS ORDERED: MISCELLANEOUS NURSING INFORMATION XX SCH (20:45)
[2017-12-19] MEDS ORDERED: TEMAZEPAM 15 MG CAP PO PRN (20:45)
[2017-12-19] MEDS ORDERED: LORazepam 2 MG/ML VIAL IV PUSH PRN (20:45)
[2017-12-19] MEDS: DOCUSATE SODIUM 50 MG/SENNA 8.6 MG TAB PO SCH (21:00)
[2017-12-19] MEDS: LIDOCAINE 4% CREAM 5 GM TUBE TOPICAL SCH (21:00)
[2017-12-19] MEDS: SODIUM CHLORIDE 0.9% FLUSH 10 ML FLUSH IV FLUSH SCH (21:00)
[2017-12-19] MEDS: ATORVASTATIN 10 MG TAB PO SCH (21:00)
[2017-12-19] MEDS ORDERED: COMBIVENT RESPIMAT INH SCH (21:00)
[2017-12-19] MEDS: VANCOMYCIN 500 MG VIAL (FOR ORAL USE ONLY) PO SCH (21:36)
[2017-12-19] MEDS: ONDANSETRON HCL 4 MG/2 ML VIAL IV PUSH PRN (21:47)
[2017-12-19] MEDS: HYDROmorphone HCL PF 2 MG/ML VIAL IV PUSH PRN (21:47)
[2017-12-19] MEDS: CALCIUM CARBONATE 1.25 GM (CA 500 MG) TAB PO SCH (22:00)
[2017-12-19] MEDS: traZODone HCL 100 MG TAB PO SCH (22:45)
[2017-12-20] VITALS (12 sets, daily range): BP systolic 106–137; BP diastolic 52–89; PULSE 87–103; RESP 13–18; TEMP 97.5–98.1; O2SAT 96–100
[2017-12-20] MEDS: FAMOTIDINE 20 MG/2 ML VIAL IV PUSH SCH ×3 (01:13→21:42)
[2017-12-20] MEDS: HEPARIN SODIUM - SQ 10,000 UNITS/ML VIAL SQ SCH ×4 (01:13→22:17)
[2017-12-20] MEDS: VANCOMYCIN 500 MG VIAL (FOR ORAL USE ONLY) PO SCH ×9 (01:13→21:43)
[2017-12-20] MEDS ORDERED: metroNIDAZOLE 500 MG INJ 100 ML IV SCH (02:00)
[2017-12-20] MEDS: metroNIDAZOLE 500 MG INJ 100 ML IV SCH ×4 (02:47→21:42)
[2017-12-20] MEDS: CHLORHEXIDINE GLUCONATE 2 % 1 PACK (2 CLOTHS) TOP SCH (04:00)
[2017-12-20] MEDS: CALCIUM CARBONATE 1.25 GM (CA 500 MG) TAB PO SCH ×3 (05:45→21:47)
[2017-12-20] MEDS: ONDANSETRON HCL 4 MG/2 ML VIAL IV PUSH PRN ×4 (05:46→21:44)
[2017-12-20] MEDS: HYDROmorphone HCL PF 2 MG/ML VIAL IV PUSH PRN ×4 (05:48→21:45)
[2017-12-20 05:51] LABS: AUTOMATED NEUTROPHIL # 24.9 TH/MM3 (1.8-7.7); BASOPHIL % 0.2 % (0.0-2.0); EOSINOPHIL % 0.2 % (0.0-4.0); HEMATOCRIT 39.2 % (35.0-46.0); HEMOGLOBIN 12.1 GM/DL (11.6-15.3); LYMPH % 2.9 % (9.0-44.0); LYMPHOCYTE # 0.8 TH/MM3 (1.0-4.8); MEAN CELL VOLUME 90.5 FL (80.0-100.0); MEAN CORPUSCULAR HEMOGLOBIN 27.9 PG (27.0-34.0); MEAN CORPUSCULAR HGB CONC 30.8 % (32.0-36.0); MEAN PLATELET VOLUME 7.8 FL (7.0-11.0); MONO % 4.1 % (0.0-8.0); MONOCYTE # 1.1 TH/MM3 (0-0.9); NEUT % 92.6 % (16.0-70.0); PLATELET COUNT 366 TH/MM3 (150-450); RED BLOOD COUNT 4.33 MIL/MM3 (4.00-5.30); RED CELL DISTRIBUTION WIDTH 17.1 % (11.6-17.2); WHITE BLOOD COUNT 26.9 TH/MM3 (4.0-11.0)
[2017-12-20 06:12] LABS: ALT (GPT) 17 U/L (10-53); AST (GOT) 21 U/L (15-37); BICARBONATE 26.6 MEQ/L (21.0-32.0); BLOOD UREA NITROGEN 37 MG/DL (7-18); CALCIUM 7.7 MG/DL (8.5-10.1); CHLORIDE 98 MEQ/L (98-107); CREATININE 6.28 MG/DL (0.50-1.00); GLOMERULAR FILTRATION RATE 8 ML/MIN (>89); GLUCOSE,RANDOM 231 MG/DL (74-106); MAGNESIUM 1.9 MG/DL (1.5-2.5); PHOSPHORUS 3.3 MG/DL (2.5-4.9); SODIUM (NA) 137 MEQ/L (136-145)
[2017-12-20 06:13] LABS: ALKALINE PHOSPHATASE 87 U/L (45-117); TOTAL BILIRUBIN ADULT 0.4 MG/DL (0.2-1.0); TOTAL PROTEIN 8.8 GM/DL (6.4-8.2)
--- NOTE | 2017-12-20 06:49 | RADRPT ---
EXAM DATE/TIME: 12/20/2017 06:24 [facility] COMPARISON: No previous studies available for comparison. INDICATIONS : NG tube placement MEDICAL HISTORY : Cardiovascular disease. Hypertension. Chronic obstructive pulmonary disease.Renal failure SURGICAL HISTORY : Hysterectomy. Appendectomy.Cholecystectomy.AV shunt ENCOUNTER: Initial ACUITY: 1 day PAIN SCORE: Non-responsive. LOCATION: Left upper quadrant FINDINGS: Examination of the abdomen demonstrates a normal bowel gas pattern. Nasogastric tube coiled in the s tomach with tip in the distal esophagus. No free air is identified. No organomegaly is evident. Oss eous structures are intact. CONCLUSION: Nasogastric tube with tip coiled in the distal esophagus. Goyo Hahn MD on December 20, 2017 at 6:46 Board Certified Radiologist. This report was verified electronically.
[2017-12-20 07:23] LABS: INTERNATIONAL NORMALIZED RATIO 1.1 RATIO; PROTHROMBIN TIME - PATIENT 10.7 SEC (9.8-11.6)
[2017-12-20] MEDS: SODIUM CHLORIDE 0.9% FLUSH 10 ML FLUSH IV FLUSH SCH ×2 (07:59→21:42)
[2017-12-20] MEDS: DOCUSATE SODIUM 50 MG/SENNA 8.6 MG TAB PO SCH ×2 (07:59→21:00)
[2017-12-20] MEDS: LIDOCAINE 4% CREAM 5 GM TUBE TOPICAL SCH ×2 (08:01→21:00)
[2017-12-20] MEDS: ASPIRIN EC 81 MG TABEC PO SCH (08:01)
[2017-12-20] MEDS: MIDODRINE 5 MG TAB PO SCH (08:01)
[2017-12-20] MEDS: buPROPion HCL 150 MG SUSTAINED RELEASE TAB PO SCH ×2 (08:01→21:44)
--- NOTE | 2017-12-20 08:45 | HHI.PR ---
Subjective Subjective Notes She feels slightly better than last night. She has been stable. Objective Vitals/I&O Vital Signs Date Time Temp Pulse Resp B/P (MAP) Pulse Ox O2 Delivery O2 Flow Rate FiO2 12/20/17 06:00 97 Nasal Cannula 2.00 12/20/17 04:00 98 12/20/17 04:00 97.8 16 132/80 (97) Labs Laboratory Tests Test 12/19/17 16:07 12/19/17 18:15 12/19/17 21:05 12/20/17 05:00 White Blood Count 36.0 Red Blood Count 4.92 Hemoglobin 13.6 Hematocrit 44.8 Mean Corpuscular Volume 91.0 Mean Corpuscular Hemoglobin 27.6 Mean Corpuscular Hemoglobin Concent 30.4 Red Cell Distribution Width 17.5 Platelet Count 374 Mean Platelet Volume 8.3 Neutrophils (%) (Auto) 91.8 Lymphocytes (%) (Auto) 3.1 Monocytes (%) (Auto) 4.2 Eosinophils (%) (Auto) 0.7 Basophils (%) (Auto) 0.2 Neutrophils # (Auto) 33.1 Lymphocytes # (Auto) 1.1 Monocytes # (Auto) 1.5 Eosinophils # (Auto) 0.3 Basophils # (Auto) 0.1 CBC Comment AUTO DIFF Differential Total Cells Counted 100 Neutrophils % (Manual) 77 Band Neutrophils % 11 Lymphocytes % 7 Monocytes % 3 Eosinophils % 1 Neutrophils # (Manual) 32.0 Myelocytes 1 Differential Comment FINAL DIFF MANUAL Platelet Estimate NORMAL Platelet Morphology Comment NORMAL Stool C. difficile Toxin (PCR) POSITIVE Stl C. difficile Toxin Epiderm 027 PRESUMPTIVE POSITIVE Blood Urea Nitrogen 30 Creatinine 5.59 Random Glucose 179 Total Protein 10.1 Albumin 3.4 Calcium Level 8.5 Phosphorus Level 2.3 Magnesium Level 1.9 Alkaline Phosphatase 100 Aspartate Amino Transf (AST/SGOT) 20 Alanine Aminotransferase (ALT/SGPT) 18 Total Bilirubin 0.6 Sodium Level 135 Potassium Level 4.4 Chloride Level 99 Carbon Dioxide Level 25.2 Anion Gap 11 Estimat Glomerular Filtration Rate 9 Lactic Acid Level 3.3 2.4 1.9 Lipase 217 Nasal Screen MRSA (PCR) MRSA NOT DETECTED Test 12/20/17 05:27 12/20/17 05:49 12/20/17 06:25 White Blood Count 26.9 Red Blood Count 4.33 Hemoglobin 12.1 Hematocrit 39.2 Mean Corpuscular Volume 90.5 Mean Corpuscular Hemoglobin 27.9 Mean Corpuscular Hemoglobin Concent 30.8 Red Cell Distribution Width 17.1 Platelet Count 366 Mean Platelet Volume 7.8 Neutrophils (%) (Auto) 92.6 Lymphocytes (%) (Auto) 2.9 Monocytes (%) (Auto) 4.1 Eosinophils (%) (Auto) 0.2 Basophils (%) (Auto) 0.2 Neutrophils # (Auto) 24.9 Lymphocytes # (Auto) 0.8 Monocytes # (Auto) 1.1 Eosinophils # (Auto) 0.0 Basophils # (Auto) 0.0 CBC Comment DIFF FINAL Differential Comment Blood Urea Nitrogen 37 Creatinine 6.28 Random Glucose 231 Total Protein 8.8 Albumin 3.0 Calcium Level 7.7 Phosphorus Level 3.3 Magnesium Level 1.9 Alkaline Phosphatase 87 Aspartate Amino Transf (AST/SGOT) 21 Alanine Aminotransferase (ALT/SGPT) 17 Total Bilirubin 0.4 Sodium Level 137 Potassium Level 4.4 Chloride Level 98 Carbon Dioxide Level 26.6 Anion Gap 12 Estimat Glomerular Filtration Rate 8 Lactic Acid Level 2.1 Blood Gas Puncture Site LT RADIAL Blood Gas Patient Temperature 98.6 Blood Gas HCO3 25 Blood Gas Base Excess -0.1 Blood Gas Oxygen Saturation 96 Arterial Blood pH 7.34 Arterial Blood Partial Pressure CO2 48 Arterial Blood Partial Pressure O2 110 Arterial Blood Oxygen Content 17.8 Arterial Blood Carboxyhemoglobin 1.0 Arterial Blood Methemoglobin 1.0 Blood Gas Hemoglobin 13.1 Oxygen Delivery Device NASAL CANNULA Blood Gas Liter Flow 2 Prothrombin Time 10.7 Prothromb Time International Ratio 1.1 Activated Partial Thromboplast Time 28.3 Date/Time Source Procedure Growth Status 12/19/17 16:07 Stool Stool - Final NO ENTERIC PATHOGENS DETECTED BY PCR... Complete Radiology Last Impressions Abdomen/Pelvis CT 12/19/17 1155 Signed Impressions: Service Date/Time: Tuesday, December 19, 2017 17:20 - CONCLUSION: 1. Extensive portal venous air which raises the possibility of bowel ischemia. Free intraperitoneal air is noted within the left upper quadrant suggestive of perforated viscus. Diffuse wall thickening involving the nondistended distal transverse colon, splenic flexure and descending colon raises possibility of ischemic colitis. Findings were called immediately to [facility]ALE[facility] Pendleton at 6: 10 PM on 12/19/17. 2. Midline ventral abdominal wall hernia which is stable. 3. 3 mm calcified nonobstructing right renal calculus. 4. Bilateral renal cysts. Gaetano Matute MD Narrative Exam In bed, awake and alert CV: RRR nonlabored breathing NGT with small amt orange thick output Abd: Mild diffuse ttp, still mod-severe ttp LUQ A/P Assessment and Plan 57 yo F with ESRD, multiple medical comorbidities, with portal venous air and diffuse abdominal pain, C dif colitis. Stable. Exam somewhat improved. WBC better. No worsening clinical or lab features to push us to operative intervention at this point. Continue IV flagyl , PO vanco. Recheck KUB again to confirm NGT placement. Prosper Madison MD Dec 20, 2017 08:45
[2017-12-20] MEDS ORDERED: PNEUMOCOCCAL POLYVALENT INJ 25 MCG/0.5 ML SYR IM ONE (09:00)
--- NOTE | 2017-12-20 09:42 | RADRPT ---
EXAM DATE/TIME: 12/20/2017 08:52 [facility] COMPARISON: ABDOMEN SINGLE VIEW, December 20, 2017, 6:24. CTA ABDOMEN & PELVIS W 3D RECON, December 19, 2017, 18:52. INDICATIONS : NG tube placement MEDICAL HISTORY : Cardiovascular disease. Hypertension. Chronic obstructive pulmonary SURGICAL HISTORY : Hysterectomy. Appendectomy.Cholecystectomy.AV shunt ENCOUNTER: Subsequent ACUITY: 2 days PAIN SCORE: 0/10 LOCATION: Abdomen FINDINGS: Right femoral dialysis catheter has its tip in the inferior vena cava near the base of the heart. The re is no bowel obstruction or ileus. No significant free intraperitoneal air is identified on plain f ilm. Surgical clips are noted within the right upper quadrant. The nasogastric tube is coiled in the upper stomach with its tip directed superiorly into the expected region of the distal esophagus. Rosenda l osteodystrophy is noted. Scattered phleboliths within pelvis. CONCLUSION: No bowel obstruction or ileus. Nasogastric tube is coiled in the upper stomach with its tip directed superiorly into the expected region of the distal esophagus. Renal osteodystrophy. Gaetano Matute MD on December 20, 2017 at 9:36 Board Certified Radiologist. This report was verified electronically.
[2017-12-20] MEDS ORDERED: PHENOL 1.4% SOLN 180 ML BTL OROPHARYNG PRN (10:00)
[2017-12-20] MEDS: SODIUM BICARBONATE 8.4% INJ 150 MEQ in DEXTROSE 5% IN WATE 1000ML INJ 1,000 ML IV SCH ×4 (13:13)
--- NOTE | 2017-12-20 14:34 | HHI.CCPN ---
Subjective Remarks/Hospital Course Hospital Course: 57-year-old unfortunate -[place]er female with history of end-stage renal disease, diabetes, hypertension, morbid obesity she was at dialysis Center complaining of abdominal pain nausea and diarrhea for the past 2 days. The patient could not complete dialysis due to worsening nausea. One hour after she left dialysis center she felt sharp abdominal pain and was sent to the emergency department. The CT scan showed ischemic colitis, Air in portal venous system, bowel wall thickening. The PCR also positive for Clostridium difficile. The patient was examined by Dr. Madison/general surgery with recommendations of conservative management at this time since the patient is extremely poor candidate for surgical intervention. Subjective: 12/20: receiving dialysis currently. NGT coiled in esophagus. patient denies new complaints. abdominal pain still tolerable but present. hemodynamically stable. Objective Vital Signs Date Time Temp Pulse Resp B/P (MAP) Pulse Ox O2 Delivery O2 Flow Rate FiO2 12/20/17 14:00 93 12/20/17 12:00 97.5 13 113/52 (72) 100 12/20/17 07:00 Nasal Cannula 2.00 Intake and Output 12/20/17 12/20/17 12/21/17 08:00 16:00 00:00 Intake Total 100 ml 1250 ml Output Total 50 ml Balance 50 ml 1250 ml Result Diagram: 12/20/17 0527 12/20/17 0527 Other Results Microbiology Date/Time Source Procedure Growth Status 12/19/17 16:07 Stool Stool - Final NO ENTERIC PATHOGENS DETECTED BY PCR... Complete Laboratory Tests Test 12/20/17 05:49 Blood Gas Puncture Site LT RADIAL Blood Gas Patient Temperature 98.6 Blood Gas HCO3 25 mmol/L (22-26) Blood Gas Base Excess -0.1 mmol/L (-2-2) Blood Gas Oxygen Saturation 96 % (90-100) Arterial Blood pH 7.34 (7.380-7.420) Arterial Blood Partial Pressure CO2 48 mmHg (38-42) Arterial Blood Partial Pressure O2 110 mmHg (61-120) Arterial Blood Oxygen Content 17.8 Vol % (12.0-20.0) Arterial Blood Carboxyhemoglobin 1.0 % (0-4) Arterial Blood Methemoglobin 1.0 % (0-2) Blood Gas Hemoglobin 13.1 G/DL (12.0-16.0) Oxygen Delivery Device NASAL CANNULA Blood Gas Liter Flow 2 L/M Imaging Last 24 hours Impressions Abdomen/Pelvis CT 12/19/17 1451 Signed Impressions: Service Date/Time: Tuesday, December 19, 2017 17:20 - CONCLUSION: 1. Extensive portal venous air which raises the possibility of bowel ischemia. Free intraperitoneal air is noted within the left upper quadrant suggestive of perforated viscus. Diffuse wall thickening involving the nondistended distal transverse colon, splenic flexure and descending colon raises possibility of ischemic colitis. Findings were called immediately to [facility] Pendleton at 6: 10 PM on 12/19/17. 2. Midline ventral abdominal wall hernia which is stable. 3. 3 mm calcified nonobstructing right renal calculus. 4. Bilateral renal cysts. Gaetano Matute MD Abdomen/Pelvis CT 12/19/17 0000 Signed Impressions: Service Date/Time: Tuesday, December 19, 2017 18:52 - CONCLUSION: 1. Portal venous gas present within the liver and within veins draining the colon near the splenic flexure suspicious for colonic ischemia. There is thickening of colon near the splenic flexure as well. No pneumatosis identified within bowel. 2. 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 Catheter in right femoral and iliac vein extending almost the entire course of the inferior vena cava. Markedly atrophic [place] kidneys. Renal osteodystrophy. Dmitry Anton MD Objective Remarks GENERAL: Morbidly obese female awake and alert. No acute distress. Cooperative. HEAD: Normocephalic. Atraumatic. EYES: Pupils equal round and reactive to light bilaterally. No scleral icterus. NECK: Trachea midline. CHEST: Nonlabored breathing. No respiratory distress. CARDIOVASCULAR: Sinus tachycardia. ABDOMEN: Obese. multiple scars. Diffuse severe ttp, + rebound, not rigid. EXTREMITIES: No cyanosis or edema. S/p amputation multiple of toes. SKIN: Warm, dry, nonjaundiced. NEURO: Alert awake and oriented 3, moves all 4 extremities without weakness A/P Assessment and Plan Assessment: 57yF with severe acute c. difficile colitis with associated bowel ischemia and portal venous gas. very high risk for bowel infarction leading to massive intra-abdominal sepsis, however clinically has remained stable. Gen surg on board and current plan for conservative management with iv fluids, antibiotics, and serial abdominal exams. continue current plan. high risk, highly complex with multiple acute and chronic medical comorbidities. Ischemic bowel -IV hydration -Sodium bicarbonate -Monitor lactic acidosis -General surgery following Severe C. difficile colitis -Vancomycin p.o. and enema -IV Flagyl ESRD -HD per nephrology Diabetes -Insulin sliding scale Hyperlipidemia -Atorvastatin COPD -DuoNeb's scheduled and as needed -No exacerbation no indication for steroid -O2 nasal cannula to keep sats above Hypothyroidism -Levothyroxine Anxiety/depression -Lorazepam as needed DVT GI prophylaxis -Bernard's and SCDs -Subcu heparin -Gurinder Friere MD Dec 20, 2017 14:34
--- NOTE | 2017-12-20 15:26 | HHI.NPPN ---
Subjective History of Present Illness Patient with abdominal pain Interval History C. difficile positive Objective Data Data 12/20/17 12/21/17 19:00 07:00 Intake Total 1250 ml Balance 1250 ml IV Total 1250 ml Vital Signs Date Time Temp Pulse Resp B/P (MAP) Pulse Ox O2 Delivery O2 Flow Rate FiO2 12/20/17 14:00 93 12/20/17 12:00 97.5 87 13 113/52 (72) 100 12/20/17 12:00 87 12/20/17 10:11 12 12/20/17 10:00 89 12/20/17 08:00 97.7 91 15 110/70 (83) 97 12/20/17 07:00 90 12/20/17 07:00 97 Nasal Cannula 2.00 12/20/17 06:00 97 Nasal Cannula 2.00 12/20/17 04:00 98 12/20/17 04:00 96 Room Air 12/20/17 04:00 97.8 98 16 132/80 (97) 99 12/20/17 03:49 12/20/17 01:07 103 18 137/89 (105) 96 Nasal Cannula 2.00 12/19/17 20:00 115 20 110/70 (83) 96 Room Air 12/19/17 17:30 108 18 104/54 (71) 97 Room Air -: 12/20/17 0527 12/20/17 0527 Microbiology 12/19/17 - Final, Complete NO ENTERIC PATHOGENS DETECTED BY PCR... Physical Exam General Appearance: Pale Neck Neck Exam: Neck Supple Pulmonary Resp Exam: Clear Bilaterally, Breath Sounds Equal Cardiology CV Exam: Regular, Normal Sinus Rhythm Gastrointestinal/Abdomen GI Exam: Distended Extremeties Extremities Exam: Moderate Edema Neurologic Neuro Exam: Alert, Awake Assessment/Plan Problem List: (1) ESRD (end stage renal disease) ICD Codes: N18.6 - End-stage renal disease Status: Chronic Plan: Patient is doing poorly as outpatient frequent admission to the hospital Now with abdominal pain and C. difficile positive, gas and abdominal and portal vein Hemodialysis was carried out earlier tolerated well (2) Abdominal pain ICD Codes: R10.9 - Unspecified abdominal pain Plan: ischemic problems been rule out repeat CT scan Surgical consult note for surgical Candidate observe for improvement (3) Morbid obesity ICD Codes: E66.01 - Morbid (severe) obesity due to excess calories Status: Chronic Plan: Chronic (4) Hypotension ICD Codes: I95.9 - Hypotension Status: Resolved Plan: Chronic issues and takes midodrine Frank Villagran MD Dec 20, 2017 15:26
--- NOTE | 2017-12-20 16:23 | RADRPT ---
EXAM DATE/TIME: 12/20/2017 13:42 [facility] COMPARISON: ABDOMEN KUB ONLY, December 20, 2017, 8:52. INDICATIONS : Nasogatrtic tube placement. MEDICAL HISTORY : Diabetes mellitus type II. SURGICAL HISTORY : Cholecystectomy. Hysterectomy. Appendectomy. Renal failure. ENCOUNTER: Subsequent ACUITY: 2 days PAIN SCORE: 8/10 LOCATION: Abdomen. FINDINGS: The nasogastric tube remains unchanged in position coiled in the proximal stomach with its tip direct ed superiorly into the distal esophagus. No bowel dilatation is noted. Right femoral dialysis cathete r is again noted and unchanged in position. No free intraperitoneal air is noted. CONCLUSION: No significant change in the appearance of the nasogastric tube which is coiled in the proximal stoma ch with its tip directed superiorly into the distal esophagus. Gaetano Matute MD on December 20, 2017 at 16:19 Board Certified Radiologist. This report was verified electronically.
--- NOTE | 2017-12-20 19:50 | EKG ---
Date Performed: 12/19/2017 Time Performed: 15:15:05 PTAGE: 57 years EKG: SINUS TACHYCARDIA WITH OCCASIONAL SUPRAVENTRICULAR PREMATURE COMPLEXES INCOMPLETE RIGHT BUN DLE BRANCH BLOCK NONSPECIFIC ST & T-WAVE ABNORMALITY Compared to previous tracing, nonspecific ST isidra nges are slightly more prominent ABNORMAL RHYTHM ECG PREVIOUS TRACING : 11/26/2017 19.50 DOCTOR: Gabino Kapoor Interpretating Date/Time 12/20/2017 19:49:06
[2017-12-20] MEDS: ATORVASTATIN 10 MG TAB PO SCH (21:42)
[2017-12-20] MEDS: traZODone HCL 100 MG TAB PO SCH (21:42)
[2017-12-21] VITALS (16 sets, daily range): BP systolic 101–154; BP diastolic 49–60; PULSE 74–92; RESP 12–22; TEMP 97.7–98.1; O2SAT 96–100
[2017-12-21] MEDS: metroNIDAZOLE 500 MG INJ 100 ML IV SCH ×4 (01:23→20:36)
[2017-12-21] MEDS: CHLORHEXIDINE GLUCONATE 2 % 1 PACK (2 CLOTHS) TOP SCH (03:18)
[2017-12-21] MEDS: CALCIUM CARBONATE 1.25 GM (CA 500 MG) TAB PO SCH ×3 (05:27→21:27)
[2017-12-21] MEDS: ONDANSETRON HCL 4 MG/2 ML VIAL IV PUSH PRN ×4 (05:28→21:27)
[2017-12-21 05:30] LABS: AUTOMATED NEUTROPHIL # 20.8 TH/MM3 (1.8-7.7); BASOPHIL # 0.1 TH/MM3 (0-0.2); BASOPHIL % 0.2 % (0.0-2.0); EOSINOPHIL # 0.2 TH/MM3 (0-0.4); EOSINOPHIL % 0.9 % (0.0-4.0); HEMATOCRIT 40.5 % (35.0-46.0); HEMOGLOBIN 12.4 GM/DL (11.6-15.3); LYMPH % 3.8 % (9.0-44.0); LYMPHOCYTE # 0.9 TH/MM3 (1.0-4.8); MEAN CELL VOLUME 90.4 FL (80.0-100.0); MEAN CORPUSCULAR HEMOGLOBIN 27.7 PG (27.0-34.0); MEAN CORPUSCULAR HGB CONC 30.7 % (32.0-36.0); MEAN PLATELET VOLUME 7.8 FL (7.0-11.0); MONO % 6.8 % (0.0-8.0); MONOCYTE # 1.6 TH/MM3 (0-0.9); NEUT % 88.3 % (16.0-70.0); PLATELET COUNT 323 TH/MM3 (150-450); RED BLOOD COUNT 4.48 MIL/MM3 (4.00-5.30); RED CELL DISTRIBUTION WIDTH 17.3 % (11.6-17.2); WHITE BLOOD COUNT 23.5 TH/MM3 (4.0-11.0)
[2017-12-21 06:03] LABS: ALBUMIN 2.9 GM/DL (3.4-5.0); ALKALINE PHOSPHATASE 90 U/L (45-117); ALT (GPT) 12 U/L (10-53); AST (GOT) 16 U/L (15-37); BICARBONATE 31.2 MEQ/L (21.0-32.0); BLOOD UREA NITROGEN 25 MG/DL (7-18); CALCIUM 7.9 MG/DL (8.5-10.1); CHLORIDE 96 MEQ/L (98-107); CREATININE 5.12 MG/DL (0.50-1.00); GLOMERULAR FILTRATION RATE 11 ML/MIN (>89); GLUCOSE,RANDOM 201 MG/DL (74-106); MAGNESIUM 1.9 MG/DL (1.5-2.5); PHOSPHORUS 3.2 MG/DL (2.5-4.9); SODIUM (NA) 138 MEQ/L (136-145); TOTAL BILIRUBIN ADULT 0.3 MG/DL (0.2-1.0); TOTAL PROTEIN 8.7 GM/DL (6.4-8.2)
[2017-12-21] MEDS: SODIUM BICARBONATE 8.4% INJ 150 MEQ in DEXTROSE 5% IN WATE 1000ML INJ 1,000 ML IV SCH ×2 (07:36)
[2017-12-21] MEDS: DOCUSATE SODIUM 50 MG/SENNA 8.6 MG TAB PO SCH ×2 (07:36→07:55)
[2017-12-21] MEDS: HEPARIN SODIUM - SQ 10,000 UNITS/ML VIAL SQ SCH ×3 (07:36→22:41)
[2017-12-21] MEDS: ASPIRIN EC 81 MG TABEC PO SCH (07:54)
[2017-12-21] MEDS: MIDODRINE 5 MG TAB PO SCH (07:54)
[2017-12-21] MEDS: buPROPion HCL 150 MG SUSTAINED RELEASE TAB PO SCH ×2 (07:55→21:00)
[2017-12-21] MEDS: FAMOTIDINE 20 MG/2 ML VIAL IV PUSH SCH ×2 (07:55→21:27)
[2017-12-21] MEDS: VANCOMYCIN 500 MG VIAL (FOR ORAL USE ONLY) PO SCH ×8 (07:55→21:27)
[2017-12-21] MEDS: LIDOCAINE 4% CREAM 5 GM TUBE TOPICAL SCH ×2 (07:56→21:00)
[2017-12-21] MEDS: SODIUM CHLORIDE 0.9% FLUSH 10 ML FLUSH IV FLUSH SCH ×2 (07:56→20:36)
--- NOTE | 2017-12-21 11:41 | HHI.NPPN ---
Subjective History of Present Illness Patient with abdominal pain Objective Data Data Vital Signs Date Time Temp Pulse Resp B/P (MAP) Pulse Ox O2 Delivery O2 Flow Rate FiO2 12/21/17 10:00 74 12/21/17 08:00 97.7 88 17 120/55 (76) 97 12/21/17 08:00 81 12/21/17 07:00 100 Nasal Cannula 2.00 12/21/17 06:00 75 12/21/17 04:02 97 Nasal Cannula 2.00 12/21/17 04:00 92 22 101/49 (66) 99 12/21/17 04:00 84 12/21/17 02:00 82 12/21/17 00:18 96 Nasal Cannula 2.00 12/21/17 00:00 92 22 101/49 (66) 99 12/21/17 00:00 92 12/20/17 22:00 102 12/20/17 20:34 96 Nasal Cannula 2.00 12/20/17 20:00 93 12/20/17 20:00 98.1 96 18 106/52 (70) 99 12/20/17 19:00 99 Nasal Cannula 2.00 12/20/17 18:00 97 12/20/17 16:00 90 12/20/17 16:00 97.7 90 14 129/63 (85) 96 12/20/17 15:45 14 12/20/17 14:00 93 12/20/17 12:00 97.5 87 13 113/52 (72) 100 12/20/17 12:00 87 -: 12/21/17 0354 12/21/17 0351 Physical Exam General Appearance: Pale Neck Neck Exam: Neck Supple Pulmonary Resp Exam: Clear Bilaterally, Breath Sounds Equal Cardiology CV Exam: Regular, Normal Sinus Rhythm Gastrointestinal/Abdomen GI Exam: Distended Extremeties Extremities Exam: Moderate Edema Neurologic Neuro Exam: Alert, Awake Assessment/Plan Problem List: (1) ESRD (end stage renal disease) ICD Codes: N18.6 - End-stage renal disease Status: Chronic Plan: Patient is doing poorly as outpatient frequent admission to the hospital Now with C. difficile positive, gas in abdominal cavity and portal vein Hemodialysis was carried out yesterday tolerated well K replacement low K no diarrhea (2) Abdominal pain ICD Codes: R10.9 - Unspecified abdominal pain Plan: ischemic problems been rule out repeat CT scan Surgical consult note for surgical Candidate observe for improvement (3) Morbid obesity ICD Codes: E66.01 - Morbid (severe) obesity due to excess calories Status: Chronic Plan: Chronic (4) Hypotension ICD Codes: I95.9 - Hypotension Status: Resolved Plan: Chronic issues and takes aaronodrine Frank Villagran MD Dec 21, 2017 11:41
[2017-12-21] MEDS ORDERED: POTASSIUM CHLORIDE 8 MEQ CONTROLLED RELEASE TAB PO ONE (11:45)
--- NOTE | 2017-12-21 16:58 | HHI.CCPN ---
Subjective Remarks/Hospital Course Hospital Course: 57-year-old unfortunate -[place] female with history of end-stage renal disease, diabetes, hypertension, morbid obesity she was at dialysis Center complaining of abdominal pain nausea and diarrhea for the past 2 days. The patient could not complete dialysis due to worsening nausea. One hour after she left dialysis center she felt sharp abdominal pain and was sent to the emergency department. The CT scan showed ischemic colitis, Air in portal venous system, bowel wall thickening. The PCR also positive for Clostridium difficile. The patient was examined by Dr. Madison/general surgery with recommendations of conservative management at this time since the patient is extremely poor candidate for surgical intervention. 12/20: receiving dialysis currently. NGT coiled in esophagus. patient denies new complaints. abdominal pain still tolerable but present. hemodynamically stable. Subjective: 12/21: subjectively feels somewhat better. still complaints of nausea, although again mildly improved. plan for non-operative management. wbc slightly downtrended. Objective Vital Signs Date Time Temp Pulse Resp B/P (MAP) Pulse Ox O2 Delivery O2 Flow Rate FiO2 12/21/17 14:00 82 12/21/17 12:00 97.8 19 126/60 (82) 100 12/21/17 07:00 Nasal Cannula 2.00 Intake and Output 12/21/17 12/21/17 12/22/17 08:00 16:00 00:00 Intake Total 925 ml Output Total 50 ml Balance 875 ml Result Diagram: 12/21/17 0354 12/21/17 0351 Other Results Microbiology Date/Time Source Procedure Growth Status 12/19/17 16:07 Stool Stool - Final NO ENTERIC PATHOGENS DETECTED BY PCR... Complete Imaging Last 24 hours Impressions Abdomen/Pelvis CT 12/19/17 1450 Signed Impressions: Service Date/Time: Tuesday, December 19, 2017 17:20 - CONCLUSION: 1. Extensive portal venous air which raises the possibility of bowel ischemia. Free intraperitoneal air is noted within the left upper quadrant suggestive of perforated viscus. Diffuse wall thickening involving the nondistended distal transverse colon, splenic flexure and descending colon raises possibility of ischemic colitis. Findings were called immediately to [facility]end[facility] at 6: 10 PM on 12/19/17. 2. Midline ventral abdominal wall hernia which is stable. 3. 3 mm calcified nonobstructing right renal calculus. 4. Bilateral renal cysts. Gaetano Matute MD Abdomen/Pelvis CT 12/19/17 0000 Signed Impressions: Service Date/Time: Tuesday, December 19, 2017 18:52 - CONCLUSION: 1. Portal venous gas present within the liver and within veins draining the colon near the splenic flexure suspicious for colonic ischemia. There is thickening of colon near the splenic flexure as well. No pneumatosis identified within bowel. 2. 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 Catheter in right femoral and iliac vein extending almost the entire course of the inferior vena cava. Markedly atrophic [place] kidneys. Renal osteodystrophy. Dmitry Anton MD Objective Remarks GENERAL: Morbidly obese female awake and alert. No acute distress. Cooperative. HEAD: Normocephalic. Atraumatic. EYES: Pupils equal round and reactive to light bilaterally. No scleral icterus. NECK: Trachea midline. CHEST: Nonlabored breathing. No respiratory distress. CARDIOVASCULAR: normal sinus rhythm in the 90s. ABDOMEN: Obese. multiple scars. mildly improved ttp. no rebound today, not rigid. EXTREMITIES: No cyanosis or edema. S/p amputation multiple of toes. SKIN: Warm, dry, nonjaundiced. NEURO: Alert awake and oriented 3, moves all 4 extremities without weakness A/P Assessment and Plan Assessment: 57yF with severe acute c. difficile colitis with associated bowel ischemia and portal venous gas. very high risk for bowel infarction leading to massive intra-abdominal sepsis, however clinically has remained stable and improving. Gen surg on board and current plan for conservative management with iv fluids, antibiotics, and serial abdominal exams. continue current plan. stable enough for transfer to floor with improving laboratory evidence and vitals. consult hospitalist service for continued management. Ischemic bowel -IV hydration -Sodium bicarbonate -Monitor lactic acidosis -General surgery following Severe C. difficile colitis -Vancomycin p.o. and enema -IV Flagyl ESRD -HD per nephrology Diabetes -Insulin sliding scale Hyperlipidemia -Atorvastatin COPD -DuoNeb's scheduled and as needed -No exacerbation no indication for steroid -O2 nasal cannula to keep sats above Hypothyroidism -Levothyroxine Anxiety/depression -Lorazepam as needed DVT GI prophylaxis -Bernard's and SCDs -Subcu heparin -PepGurinder Benson MD Dec 21, 2017 16:58
[2017-12-21] MEDS: traZODone HCL 100 MG TAB PO SCH (21:00)
[2017-12-21] MEDS: ATORVASTATIN 10 MG TAB PO SCH (21:27)
[2017-12-21] MEDS: HYDROmorphone HCL PF 2 MG/ML VIAL IV PUSH PRN (21:44)
[2017-12-22] VITALS (9 sets, daily range): BP systolic 104–123; BP diastolic 54–60; PULSE 56–102; RESP 18; TEMP 97.4–98.3; O2SAT 94–96
[2017-12-22] MEDS: CHLORHEXIDINE GLUCONATE 2 % 1 PACK (2 CLOTHS) TOP SCH (01:27)
[2017-12-22] MEDS: metroNIDAZOLE 500 MG INJ 100 ML IV SCH ×4 (01:27→20:39)
[2017-12-22] MEDS: SODIUM BICARBONATE 8.4% INJ 150 MEQ in DEXTROSE 5% IN WATE 1000ML INJ 1,000 ML IV SCH ×4 (01:59→13:20)
[2017-12-22] MEDS: HYDROmorphone HCL PF 2 MG/ML VIAL IV PUSH PRN ×6 (02:12→22:29)
[2017-12-22] MEDS: ONDANSETRON HCL 4 MG/2 ML VIAL IV PUSH PRN ×4 (06:10→20:39)
[2017-12-22] MEDS: HEPARIN SODIUM - SQ 10,000 UNITS/ML VIAL SQ SCH ×3 (06:10→22:31)
[2017-12-22] MEDS: CALCIUM CARBONATE 1.25 GM (CA 500 MG) TAB PO SCH ×3 (06:10→20:38)
[2017-12-22] MEDS: diphenhydrAMINE HCL 25 MG CAP PO PRN ×2 (06:28→13:46)
[2017-12-22] MEDS: VANCOMYCIN 500 MG VIAL (FOR ORAL USE ONLY) PO SCH ×4 (09:00→20:39)
--- NOTE | 2017-12-22 10:27 | HHI.NPPN ---
Subjective History of Present Illness Patient with abdominal pain Interval History patient was seen during dialysis. On 3K, UF goal is 3 liters. Right Femoral CVC currently being used. Patient complains of some abdominal pain. Objective Data Data Vital Signs Date Time Temp Pulse Resp B/P (MAP) Pulse Ox O2 Delivery O2 Flow Rate FiO2 12/22/17 04:00 Room Air 12/22/17 04:00 97.9 56 18 111/60 (77) 94 12/22/17 04:00 81 12/22/17 00:00 97.4 73 18 106/59 (75) 94 12/22/17 00:00 Room Air 12/21/17 23:01 81 12/21/17 22:00 Nasal Cannula 2.00 12/21/17 20:49 97.7 82 19 109/56 (73) 97 12/21/17 20:00 98.1 87 12 154/60 (91) 98 12/21/17 20:00 85 12/21/17 19:00 99 Nasal Cannula 2.00 12/21/17 18:00 88 12/21/17 16:00 98.1 85 14 116/58 (77) 98 12/21/17 16:00 85 12/21/17 14:00 82 12/21/17 12:00 79 12/21/17 12:00 97.8 79 19 126/60 (82) 100 -: 12/21/17 0354 12/21/17 0351 Physical Exam General Appearance: Pale Neck Neck Exam: Neck Supple Pulmonary Resp Exam: Clear Bilaterally, Breath Sounds Equal Cardiology CV Exam: Regular, Normal Sinus Rhythm Gastrointestinal/Abdomen GI Exam: Distended Extremeties Extremities Exam: Moderate Edema Neurologic Neuro Exam: Alert, Awake Assessment/Plan Problem List: (1) ESRD (end stage renal disease) ICD Codes: N18.6 - End-stage renal disease Status: Chronic Plan: Patient is doing poorly as outpatient frequent admission to the hospital Now with C. difficile positive, gas in abdominal cavity and portal vein On HD today as above. (2) Abdominal pain ICD Codes: R10.9 - Unspecified abdominal pain (3) Morbid obesity ICD Codes: E66.01 - Morbid (severe) obesity due to excess calories Status: Chronic (4) Hypotension ICD Codes: I95.9 - Hypotension Status: Resolved Plan: Chronic issues and takes Moe Casanova MD Dec 22, 2017 10:27
[2017-12-22] MEDS: HEPARIN SODIUM - IV 10,000 UNITS/10 ML VIAL PRN (10:49)
[2017-12-22] MEDS: GENTAMICIN SULFATE 20 MG/2 ML VIAL OTHER PRN (10:50)
[2017-12-22 11:43] LABS: AUTOMATED NEUTROPHIL # 13.6 TH/MM3 (1.8-7.7); BASOPHIL % 0.1 % (0.0-2.0); EOSINOPHIL # 0.5 TH/MM3 (0-0.4); EOSINOPHIL % 3.1 % (0.0-4.0); HEMATOCRIT 34.9 % (35.0-46.0); HEMOGLOBIN 10.7 GM/DL (11.6-15.3); LYMPH % 4.5 % (9.0-44.0); LYMPHOCYTE # 0.7 TH/MM3 (1.0-4.8); MEAN CELL VOLUME 90.1 FL (80.0-100.0); MEAN CORPUSCULAR HEMOGLOBIN 27.6 PG (27.0-34.0); MEAN CORPUSCULAR HGB CONC 30.6 % (32.0-36.0); MEAN PLATELET VOLUME 7.6 FL (7.0-11.0); MONOCYTE # 0.6 TH/MM3 (0-0.9); NEUT % 88.3 % (16.0-70.0); PLATELET COUNT 300 TH/MM3 (150-450); RED BLOOD COUNT 3.87 MIL/MM3 (4.00-5.30); RED CELL DISTRIBUTION WIDTH 16.9 % (11.6-17.2); WHITE BLOOD COUNT 15.4 TH/MM3 (4.0-11.0)
[2017-12-22] MEDS: ASPIRIN EC 81 MG TABEC PO SCH (13:13)
[2017-12-22] MEDS: MIDODRINE 5 MG TAB PO SCH (13:13)
[2017-12-22] MEDS: buPROPion HCL 150 MG SUSTAINED RELEASE TAB PO SCH ×2 (13:13→20:38)
[2017-12-22] MEDS: SODIUM CHLORIDE 0.9% FLUSH 10 ML FLUSH IV FLUSH SCH ×2 (13:13→20:39)
[2017-12-22] MEDS: FAMOTIDINE 20 MG/2 ML VIAL IV PUSH SCH ×2 (13:14→20:38)
[2017-12-22] MEDS: LIDOCAINE 4% CREAM 5 GM TUBE TOPICAL SCH ×2 (13:16→20:38)
--- NOTE | 2017-12-22 15:20 | HHI.PR ---
Subjective Remarks Hospital course: 57-year-old unfortunate -[place] female with history of end-stage renal disease, diabetes, hypertension, morbid obesity she was at dialysis Center complaining of abdominal pain nausea and diarrhea for the past 2 days. The patient could not complete dialysis due to worsening nausea. One hour after she left dialysis center she felt sharp abdominal pain and was sent to the emergency department. The CT scan showed ischemic colitis, Air in portal venous system, bowel wall thickening. The PCR also positive for Clostridium difficile. The patient was examined by Dr. Madison/general surgery with recommendations of conservative management at this time since the patient is extremely poor candidate for surgical intervention. 12/22: Patient reports abdominal discomfort. Nausea and some dry heaving. No diarrhea. Objective Vitals Vital Signs Date Time Temp Pulse Resp B/P (MAP) Pulse Ox O2 Delivery O2 Flow Rate FiO2 12/22/17 12:00 97.9 102 18 123/54 (77) 96 12/22/17 08:00 98.3 86 18 104/58 (73) 96 12/22/17 04:00 Room Air 12/22/17 04:00 97.9 56 18 111/60 (77) 94 12/22/17 04:00 81 12/22/17 00:00 97.4 73 18 106/59 (75) 94 12/22/17 00:00 Room Air 12/21/17 23:01 81 12/21/17 22:00 Nasal Cannula 2.00 12/21/17 20:49 97.7 82 19 109/56 (73) 97 12/21/17 20:00 98.1 87 12 154/60 (91) 98 12/21/17 20:00 85 12/21/17 19:00 99 Nasal Cannula 2.00 12/21/17 18:00 88 12/21/17 16:00 98.1 85 14 116/58 (77) 98 12/21/17 16:00 85 I/O 12/21/17 12/21/17 12/21/17 12/22/17 12/22/17 12/22/17 07:00 15:00 23:00 07:00 15:00 23:00 Intake Total 925 ml 400 ml 1550 ml Output Total 50 ml 125 ml 0 ml Balance 875 ml 275 ml 1550 ml Intake Oral 0 ml IV Total 925 ml 1550 ml Tube Irrigant 400 ml Output Urine Total 0 ml 0 ml 0 ml Stool Total 0 ml 0 ml Gastric Drainage Total 50 ml 125 ml Result Diagram: 12/22/17 1045 12/21/17 0351 Objective Remarks GENERAL: Morbidly obese female, in no apparent distress. CARDIOVASCULAR: Normal rate and regular rhythm without murmurs, gallops, or rubs. RESPIRATORY: Good respiratory efforts. Breath sounds equal and clear to auscultation bilaterally. GASTROINTESTINAL: Abdomen soft, mild diffuse tenderness to palpation. Normal and active bowel sounds. MUSCULOSKELETAL: Extremities without cyanosis, or edema. NEURO: Alert & Oriented x4 to person, place, time, situation. Moves all ext x4 PSYCH: Appropriate mood and affect. A/P Assessment and Plan 57yF with severe acute c. difficile colitis with associated bowel ischemia and portal venous gas. very high risk for bowel infarction leading to massive intra- abdominal sepsis, however clinically has remained stable and improving. Gen surg on board and current plan for conservative management with iv fluids, antibiotics, and serial abdominal exams. continue current plan. Ischemic bowel -IV hydration -Sodium bicarbonate -Monitor lactic acidosis -General surgery following. Continue NG tube. Severe C. difficile colitis -Vancomycin p.o. and enema -IV Flagyl ESRD -HD per nephrology Diabetes -Insulin sliding scale Hyperlipidemia -Atorvastatin COPD -DuoNeb's scheduled and as needed -No exacerbation no indication for steroid -O2 nasal cannula to keep sats above Hypothyroidism -Levothyroxine Anxiety/depression -Lorazepam as needed DVT GI prophylaxis -Bernard's and SCDs -Subcu heparin -Nieves Butt MD Dec 22, 2017 15:19
[2017-12-22 15:55] LABS: BICARBONATE 32.7 MEQ/L (21.0-32.0); CALCIUM 7.3 MG/DL (8.5-10.1); CREATININE 4.29 MG/DL (0.50-1.00)
[2017-12-22 16:14] LABS: TOTAL PROTEIN 7.6 GM/DL (6.4-8.2)
[2017-12-22 16:42] LABS: CALCIUM-PROTEIN CORRECTED 7.1 MG/DL (8.5-10.1)
[2017-12-22] MEDS: ATORVASTATIN 10 MG TAB PO SCH (20:38)
[2017-12-22] MEDS: traZODone HCL 50 MG TAB PO SCH (20:38)
[2017-12-23] VITALS (10 sets, daily range): BP systolic 106–121; BP diastolic 56–65; PULSE 74–87; RESP 18–20; TEMP 97.8–98.9; O2SAT 94–100
[2017-12-23] MEDS: metroNIDAZOLE 500 MG INJ 100 ML IV SCH ×4 (01:43→21:00)
[2017-12-23] MEDS: SODIUM BICARBONATE 8.4% INJ 150 MEQ in DEXTROSE 5% IN WATE 1000ML INJ 1,000 ML IV SCH ×2 (01:44)
[2017-12-23] MEDS: CHLORHEXIDINE GLUCONATE 2 % 1 PACK (2 CLOTHS) TOP SCH (03:48)
[2017-12-23] MEDS: ONDANSETRON HCL 4 MG/2 ML VIAL IV PUSH PRN ×4 (05:07→20:42)
[2017-12-23] MEDS: HYDROmorphone HCL PF 2 MG/ML VIAL IV PUSH PRN ×4 (05:07→20:43)
[2017-12-23] MEDS: CALCIUM CARBONATE 1.25 GM (CA 500 MG) TAB PO SCH ×3 (05:11→20:42)
[2017-12-23] MEDS: HEPARIN SODIUM - SQ 10,000 UNITS/ML VIAL SQ SCH ×3 (06:10→23:00)
[2017-12-23] MEDS: FAMOTIDINE 20 MG/2 ML VIAL IV PUSH SCH ×2 (09:35→20:43)
[2017-12-23] MEDS: VANCOMYCIN 500 MG VIAL (FOR ORAL USE ONLY) PO SCH ×4 (09:35→20:41)
[2017-12-23] MEDS: buPROPion HCL 150 MG SUSTAINED RELEASE TAB PO SCH ×2 (09:36→20:42)
[2017-12-23] MEDS: ASPIRIN EC 81 MG TABEC PO SCH (09:36)
[2017-12-23] MEDS: SODIUM CHLORIDE 0.9% FLUSH 10 ML FLUSH IV FLUSH SCH ×2 (09:37→20:52)
[2017-12-23] MEDS: LIDOCAINE 4% CREAM 5 GM TUBE TOPICAL SCH ×2 (09:37→20:52)
[2017-12-23] MEDS: MIDODRINE 5 MG TAB PO SCH (09:37)
--- NOTE | 2017-12-23 10:32 | HHI.PR ---
Subjective Remarks Patient reports she still having nausea. No vomiting today. Not hungry. Not passing gas. Objective Vitals Vital Signs Date Time Temp Pulse Resp B/P (MAP) Pulse Ox O2 Delivery O2 Flow Rate FiO2 12/23/17 08:00 Room Air 12/23/17 08:00 98.1 84 18 110/65 (80) 98 12/23/17 06:07 18 12/23/17 04:05 74 12/23/17 04:00 98.9 87 18 115/57 (76) 95 12/23/17 00:00 97.9 84 20 106/60 (75) 98 12/22/17 23:57 82 12/22/17 20:40 Room Air 12/22/17 20:33 Nasal Cannula 3.00 12/22/17 20:03 82 12/22/17 20:00 98.1 83 18 113/59 (77) 95 12/22/17 16:00 97.9 85 18 113/58 (76) 96 12/22/17 16:00 85 12/22/17 16:00 Room Air 12/22/17 12:00 97.9 102 18 123/54 (77) 96 12/22/17 12:00 96 12/22/17 12:00 Room Air I/O 12/22/17 12/22/17 12/22/17 12/23/17 12/23/17 12/23/17 07:00 15:00 23:00 07:00 15:00 23:00 Intake Total 1550 ml 100 ml 1250 ml Output Total 0 ml 50 ml Balance 1550 ml 100 ml 1200 ml Intake Oral 0 ml 0 ml 0 ml IV Total 1550 ml 100 ml 1250 ml Output Urine Total 0 ml 0 ml Gastric Drainage Total 50 ml # Voids 0 # Bowel Movements 0 Result Diagram: 12/22/17 1045 12/22/17 1458 Objective Remarks GENERAL: Morbidly obese female, in no apparent distress. CARDIOVASCULAR: Normal rate and regular rhythm without murmurs, gallops, or rubs. RESPIRATORY: Good respiratory efforts. Breath sounds equal and clear to auscultation bilaterally. GASTROINTESTINAL: Abdomen soft, mild diffuse tenderness to palpation. Normal and active bowel sounds. MUSCULOSKELETAL: Extremities without cyanosis, or edema. NEURO: Alert & Oriented x4 to person, place, time, situation. Moves all ext x4 PSYCH: Appropriate mood and affect. A/P Assessment and Plan 57yF with severe acute c. difficile colitis with associated bowel ischemia and portal venous gas. very high risk for bowel infarction leading to massive intra- abdominal sepsis, however clinically has remained stable and improving. Gen surg on board and current plan for conservative management with iv fluids, antibiotics, and serial abdominal exams. continue current plan. Ischemic bowel -IV hydration -Sodium bicarbonate -Monitor lactic acidosis -General surgery following. Continue NG tube. Medicine repeat a KUB today to ensure NG tube is in good place. Severe C. difficile colitis -Vancomycin p.o -IV Flagyl ESRD -HD per nephrology Diabetes -Insulin sliding scale Hyperlipidemia -Atorvastatin COPD -DuoNeb's scheduled and as needed -No exacerbation no indication for steroid -O2 nasal cannula to keep sats above Hypothyroidism -Levothyroxine Anxiety/depression -Lorazepam as needed DVT GI prophylaxis -Bernard's and SCDs -Subcu heparin -Nieves Butt MD Dec 23, 2017 10:32
[2017-12-23] MEDS: POTASSIUM CHLOR 20 MEQ PREMIX 100 ML IV SCH ×3 (11:00→14:03)
--- NOTE | 2017-12-23 11:14 | RADRPT ---
EXAM DATE/TIME: 12/23/2017 10:38 [facility] COMPARISON: ABDOMEN KUB ONLY, December 20, 2017, 13:42. INDICATIONS : Constipation and nausea. MEDICAL HISTORY : Diabetes mellitus type II. SURGICAL HISTORY : Cholecystectomy. Appendectomy. Hysterectomy. ENCOUNTER: Subsequent ACUITY: 4 - 6 days PAIN SCORE: 2/10 LOCATION: Left lower abdomen. FINDINGS: Nasogastric tube in good position. Femoral catheter noted. Bibasilar unremarkable. There is no ivon e air. CONCLUSION: There is no free air or significant stool. Ronn Corona MD FACR on December 23, 2017 at 11:11 Board Certified Radiologist. This report was verified electronically.
[2017-12-23] MEDS: CALCIUM GLUCONATE INJ 1 GM in SODIUM CHLORIDE 0.9% INJ 90 ML IV ONE ×2 (14:02→18:39)
[2017-12-23] MEDS: CALCIUM CHLORIDE INJ 1 GM in SODIUM CHLORIDE 0.9% INJ 90 ML IV ONE ×2 (14:03→18:40)
[2017-12-23] MEDS ORDERED: POTASSIUM CHLORIDE 10 MEQ CONTROLLED RELEASE TAB PO ONE (16:30)
[2017-12-23] MEDS: ATORVASTATIN 10 MG TAB PO SCH (20:42)
[2017-12-23] MEDS: traZODone HCL 50 MG TAB PO SCH (20:42)
[2017-12-24] VITALS (12 sets, daily range): BP systolic 110–141; BP diastolic 61–76; PULSE 73–92; RESP 17–20; TEMP 97.7–98.6; O2SAT 95–99
[2017-12-24] MEDS: SODIUM BICARBONATE 8.4% INJ 150 MEQ in DEXTROSE 5% IN WATE 1000ML INJ 1,000 ML IV SCH ×6 (00:04→23:12)
[2017-12-24] MEDS: metroNIDAZOLE 500 MG INJ 100 ML IV SCH ×4 (01:43→23:11)
[2017-12-24] MEDS: CHLORHEXIDINE GLUCONATE 2 % 1 PACK (2 CLOTHS) TOP SCH (03:30)
[2017-12-24] MEDS: HYDROmorphone HCL PF 2 MG/ML VIAL IV PUSH PRN ×4 (05:11→20:10)
[2017-12-24] MEDS: CALCIUM CARBONATE 1.25 GM (CA 500 MG) TAB PO SCH ×3 (05:11→20:23)
[2017-12-24] MEDS: ONDANSETRON HCL 4 MG/2 ML VIAL IV PUSH PRN ×3 (05:14→15:49)
[2017-12-24] MEDS: HEPARIN SODIUM - SQ 10,000 UNITS/ML VIAL SQ SCH ×3 (06:46→23:00)
[2017-12-24] MEDS: SODIUM CHLORIDE 0.9% FLUSH 10 ML FLUSH IV FLUSH SCH ×2 (08:20→20:23)
[2017-12-24] MEDS: LIDOCAINE 4% CREAM 5 GM TUBE TOPICAL SCH ×2 (09:00→20:23)
[2017-12-24] MEDS: FAMOTIDINE 20 MG/2 ML VIAL IV PUSH SCH ×2 (09:51→20:23)
[2017-12-24] MEDS: buPROPion HCL 150 MG SUSTAINED RELEASE TAB PO SCH ×2 (09:52→20:23)
[2017-12-24] MEDS: ASPIRIN EC 81 MG TABEC PO SCH (09:52)
[2017-12-24] MEDS: MIDODRINE 5 MG TAB PO SCH (09:52)
[2017-12-24] MEDS: VANCOMYCIN 500 MG VIAL (FOR ORAL USE ONLY) PO SCH ×4 (09:53→20:23)
--- NOTE | 2017-12-24 10:25 | HHI.PR ---
Subjective Remarks No appetite. Still having nausea. No vomiting. NG tube draining. Passing minimal gas. Objective Vitals Vital Signs Date Time Temp Pulse Resp B/P (MAP) Pulse Ox O2 Delivery O2 Flow Rate FiO2 12/24/17 08:26 Nasal Cannula 3.00 12/24/17 08:15 95 Nasal Cannula 3.00 12/24/17 08:00 98.4 84 18 110/61 (77) 99 12/24/17 05:46 19 12/24/17 04:00 98.2 86 20 129/66 (87) 96 12/24/17 04:00 Room Air 12/24/17 03:41 81 12/24/17 00:00 97.9 85 17 118/63 (81) 97 12/24/17 00:00 Room Air 12/23/17 23:49 79 12/23/17 20:40 Room Air 12/23/17 20:03 78 12/23/17 20:00 97.9 83 18 114/65 (81) 94 12/23/17 16:00 Room Air 12/23/17 16:00 97.8 84 18 121/56 (77) 95 12/23/17 15:56 79 12/23/17 12:00 80 12/23/17 12:00 98.0 82 18 120/65 (83) 100 12/23/17 12:00 Room Air I/O 12/23/17 12/23/17 12/23/17 12/24/17 12/24/17 12/24/17 07:00 15:00 23:00 07:00 15:00 23:00 Intake Total 1250 ml 200 ml 1250 ml Output Total 50 ml 0 ml 150 ml Balance 1200 ml 200 ml 1100 ml Intake Oral 0 ml 0 ml 0 ml IV Total 1250 ml 200 ml 1250 ml Output Urine Total 0 ml 0 ml 0 ml Stool Total 0 ml Gastric Drainage Total 50 ml 150 ml # Bowel Movements 0 0 Result Diagram: 12/22/17 1045 12/22/17 1458 Objective Remarks GENERAL: Morbidly obese female, in no apparent distress. NG tube in place CARDIOVASCULAR: Normal rate and regular rhythm without murmurs, gallops, or rubs. RESPIRATORY: Good respiratory efforts. Breath sounds equal and clear to auscultation bilaterally. GASTROINTESTINAL: Abdomen soft, mild diffuse tenderness to palpation. Normal and active bowel sounds. MUSCULOSKELETAL: Extremities without cyanosis, or edema. Right Achilles area has a dry wound. NEURO: Alert & Oriented x4 to person, place, time, situation. Moves all ext x4 PSYCH: Appropriate mood and affect. A/P Assessment and Plan 57yF with severe acute c. difficile colitis with associated bowel ischemia and portal venous gas. very high risk for bowel infarction leading to massive intra- abdominal sepsis, however clinically has remained stable and improving. Gen surg on board and current plan for conservative management with iv fluids, antibiotics, and serial abdominal exams. continue current plan. Ischemic bowel -IV hydration -Sodium bicarbonate -Monitor lactic acidosis -General surgery following. Continue NG tube. -NG tube still draining a lot. Awaiting return of bowel function. Will consider clamping tube tomorrow. Appreciate further input from general surgery. Severe C. difficile colitis -Vancomycin p.o -Continue IV Flagyl. It is unclear how much of the oral vancomycin is being absorbed as she needs NG tube and it is draining. ESRD -HD per nephrology Diabetes -Insulin sliding scale Hyperlipidemia -Atorvastatin COPD -DuoNeb's scheduled and as needed -No exacerbation no indication for steroid -O2 nasal cannula to keep sats above Hypokalemia/hypocalcemia: Replace and monitor Hypothyroidism -Levothyroxine Anxiety/depression -Lorazepam as needed Chronic right lower extremity wound, chronic sacral wound, present on admission: - Wound examined and appear to be healing. Wound care consulted. DVT GI prophylaxis -Bernard's and SCDs -Subcu heparin -Nieves Butt MD Dec 24, 2017 10:25
[2017-12-24] MEDS: GENTAMICIN SULFATE 20 MG/2 ML VIAL OTHER PRN (12:26)
[2017-12-24] MEDS: HEPARIN SODIUM - IV 10,000 UNITS/10 ML VIAL PRN (12:26)
[2017-12-24 12:34] LABS: AUTOMATED NEUTROPHIL # 7.5 TH/MM3 (1.8-7.7); BASOPHIL % 0.2 % (0.0-2.0); EOSINOPHIL # 0.7 TH/MM3 (0-0.4); EOSINOPHIL % 6.8 % (0.0-4.0); HEMOGLOBIN 11.3 GM/DL (11.6-15.3); LYMPH % 7.5 % (9.0-44.0); LYMPHOCYTE # 0.7 TH/MM3 (1.0-4.8); MEAN CELL VOLUME 90.5 FL (80.0-100.0); MEAN CORPUSCULAR HEMOGLOBIN 28.4 PG (27.0-34.0); MEAN CORPUSCULAR HGB CONC 31.4 % (32.0-36.0); MEAN PLATELET VOLUME 7.5 FL (7.0-11.0); MONOCYTE # 0.8 TH/MM3 (0-0.9); NEUT % 77.5 % (16.0-70.0); PLATELET COUNT 295 TH/MM3 (150-450); RED BLOOD COUNT 3.97 MIL/MM3 (4.00-5.30); RED CELL DISTRIBUTION WIDTH 16.1 % (11.6-17.2); WHITE BLOOD COUNT 9.7 TH/MM3 (4.0-11.0)
[2017-12-24 12:55] LABS: BICARBONATE 35.4 MEQ/L (21.0-32.0); CALCIUM 7.2 MG/DL (8.5-10.1); CREATININE 6.65 MG/DL (0.50-1.00)
--- NOTE | 2017-12-24 13:00 | PD.WCN.NOT ---
Wound Consult Additional Information: Attempted to see patient.Patient not seen, she is in dialysis. Will attempt to see patient tomorrow. Cassie Tabares [facility] Dec 24, 2017 13:00
[2017-12-24 13:09] LABS: TOTAL PROTEIN 6.9 GM/DL (6.4-8.2)
[2017-12-24 13:13] LABS: CALCIUM-PROTEIN CORRECTED 7.3 MG/DL (8.5-10.1)
[2017-12-24] MEDS ORDERED: POTASSIUM CHLOR 20 MEQ PREMIX 100 ML IV SCH (15:00)
[2017-12-24] MEDS ORDERED: CALCIUM GLUCONATE INJ 1 GM in SODIUM CHLORIDE 0.9% INJ 90 ML IV ONE ×2 (16:00→20:00)
[2017-12-24] MEDS: POTASSIUM CHLOR 20 MEQ PREMIX 100 ML IV SCH ×2 (16:58→19:39)
--- NOTE | 2017-12-24 16:58 | HHI.PR ---
Subjective Subjective Notes She still has nausea. Abdominal pain contuing to improve. WBC normal today. Objective Vitals/I&O Vital Signs Date Time Temp Pulse Resp B/P (MAP) Pulse Ox O2 Delivery O2 Flow Rate FiO2 12/24/17 16:25 97 Nasal Cannula 3.00 12/24/17 15:50 97.7 81 122/65 (84) 12/24/17 12:13 18 Labs Laboratory Tests Test 12/24/17 11:17 White Blood Count 9.7 Red Blood Count 3.97 Hemoglobin 11.3 Hematocrit 36.0 Mean Corpuscular Volume 90.5 Mean Corpuscular Hemoglobin 28.4 Mean Corpuscular Hemoglobin Concent 31.4 Red Cell Distribution Width 16.1 Platelet Count 295 Mean Platelet Volume 7.5 Neutrophils (%) (Auto) 77.5 Lymphocytes (%) (Auto) 7.5 Monocytes (%) (Auto) 8.0 Eosinophils (%) (Auto) 6.8 Basophils (%) (Auto) 0.2 Neutrophils # (Auto) 7.5 Lymphocytes # (Auto) 0.7 Monocytes # (Auto) 0.8 Eosinophils # (Auto) 0.7 Basophils # (Auto) 0.0 CBC Comment DIFF FINAL Differential Comment Blood Urea Nitrogen 22 Creatinine 6.65 Random Glucose 95 Total Protein 6.9 Calcium Level 7.2 Sodium Level 138 Potassium Level 2.9 Chloride Level 92 Carbon Dioxide Level 35.4 Anion Gap 11 Estimat Glomerular Filtration Rate 8 Protein Corrected Calcium 7.3 Date/Time Source Procedure Growth Status 12/19/17 16:07 Stool Stool - Final NO ENTERIC PATHOGENS DETECTED BY PCR... Complete Radiology Last Impressions Abdomen/Pelvis CT 12/19/17 4338 Signed Impressions: Service Date/Time: Tuesday, December 19, 2017 17:20 - CONCLUSION: 1. Extensive portal venous air which raises the possibility of bowel ischemia. Free intraperitoneal air is noted within the left upper quadrant suggestive of perforated viscus. Diffuse wall thickening involving the nondistended distal transverse colon, splenic flexure and descending colon raises possibility of ischemic colitis. Findings were called immediately to [facility] Pendleton at 6: 10 PM on 12/19/17. 2. Midline ventral abdominal wall hernia which is stable. 3. 3 mm calcified nonobstructing right renal calculus. 4. Bilateral renal cysts. Gaetano Matute MD Narrative Exam In bed, awake and alert nonlabored breathing NGT with small amt orange thick output, 150cc since this am Abd: Mild diffuse ttp, mod ttp LUQ A/P Assessment and Plan 57 yo F with ESRD, multiple medical comorbidities, with portal venous air and diffuse abdominal pain, C dif colitis. Improving. WBC nml. D/c NGT. Start clears. PO erythromycin for bowel motility. LosProsper mendosa MD Dec 24, 2017 16:58
--- NOTE | 2017-12-24 17:27 | HHI.NPPN ---
Subjective History of Present Illness Patient with abdominal pain Objective Data Data 12/24/17 12/25/17 19:00 07:00 Output Total 1200 ml Balance -1200 ml Hemodialysis 1200 ml Vital Signs Date Time Temp Pulse Resp B/P (MAP) Pulse Ox O2 Delivery O2 Flow Rate FiO2 12/24/17 16:25 97 Nasal Cannula 3.00 12/24/17 15:50 97.7 81 122/65 (84) 98 12/24/17 13:48 73 12/24/17 12:13 98.6 80 18 124/76 (92) 96 12/24/17 08:26 Nasal Cannula 3.00 12/24/17 08:15 95 Nasal Cannula 3.00 12/24/17 08:00 98.4 84 18 110/61 (77) 99 12/24/17 05:46 19 12/24/17 04:00 98.2 86 20 129/66 (87) 96 12/24/17 04:00 Room Air 12/24/17 03:41 81 12/24/17 00:00 97.9 85 17 118/63 (81) 97 12/24/17 00:00 Room Air 12/23/17 23:49 79 12/23/17 20:40 Room Air 12/23/17 20:03 78 12/23/17 20:00 97.9 83 18 114/65 (81) 94 -: 12/24/17 1117 12/24/17 1117 Physical Exam General Appearance: Pale Neck Neck Exam: Neck Supple Pulmonary Resp Exam: Clear Bilaterally, Breath Sounds Equal Cardiology CV Exam: Regular, Normal Sinus Rhythm Gastrointestinal/Abdomen GI Exam: Distended Extremeties Extremities Exam: Moderate Edema Neurologic Neuro Exam: Alert, Awake Assessment/Plan Problem List: (1) ESRD (end stage renal disease) ICD Codes: N18.6 - End-stage renal disease Status: Chronic Plan: Patient is doing poorly as outpatient frequent admission to the hospital Now with C. difficile positive, gas in abdominal cavity and portal vein On HD earlier UF 1.2 L tolerated it well low k 4 k dialysis KCL given c diff on PO Vancomycin (2) Abdominal pain ICD Codes: R10.9 - Unspecified abdominal pain (3) Morbid obesity ICD Codes: E66.01 - Morbid (severe) obesity due to excess calories Status: Chronic (4) Hypotension ICD Codes: I95.9 - Hypotension Status: Resolved Plan: Chronic issues and takes midodrine Frank Villagran MD Dec 24, 2017 17:27
[2017-12-24] MEDS: ERYTHROMYCIN EC 250 MG TABEC PO SCH (18:28)
[2017-12-24] MEDS: diphenhydrAMINE HCL 25 MG CAP PO PRN (19:04)
[2017-12-24] MEDS: ATORVASTATIN 10 MG TAB PO SCH (20:23)
[2017-12-24] MEDS: traZODone HCL 50 MG TAB PO SCH (20:23)
[2017-12-25] VITALS (10 sets, daily range): BP systolic 112–147; BP diastolic 54–67; PULSE 75–87; RESP 18–20; TEMP 97.4–98.4; O2SAT 98–100
[2017-12-25] MEDS: CHLORHEXIDINE GLUCONATE 2 % 1 PACK (2 CLOTHS) TOP SCH (03:30)
[2017-12-25] MEDS: CALCIUM CARBONATE 1.25 GM (CA 500 MG) TAB PO SCH ×3 (06:00→20:42)
[2017-12-25] MEDS: metroNIDAZOLE 500 MG INJ 100 ML IV SCH ×2 (06:35→11:35)
[2017-12-25] MEDS: HEPARIN SODIUM - SQ 10,000 UNITS/ML VIAL SQ SCH ×3 (06:36→23:00)
[2017-12-25 07:37] LABS: HEMATOCRIT 35.6 % (35.0-46.0); HEMOGLOBIN 10.9 GM/DL (11.6-15.3); MEAN CELL VOLUME 91.5 FL (80.0-100.0); MEAN CORPUSCULAR HEMOGLOBIN 28.2 PG (27.0-34.0); MEAN CORPUSCULAR HGB CONC 30.8 % (32.0-36.0); MEAN PLATELET VOLUME 7.4 FL (7.0-11.0); PLATELET COUNT 291 TH/MM3 (150-450); RED BLOOD COUNT 3.89 MIL/MM3 (4.00-5.30); RED CELL DISTRIBUTION WIDTH 16.2 % (11.6-17.2); WHITE BLOOD COUNT 10.5 TH/MM3 (4.0-11.0)
[2017-12-25 08:13] LABS: BICARBONATE 35.8 MEQ/L (21.0-32.0); CALCIUM 8.1 MG/DL (8.5-10.1); CREATININE 4.79 MG/DL (0.50-1.00)
--- NOTE | 2017-12-25 08:22 | HHI.PR ---
Subjective Subjective Notes Minimal nausea now and tolerating clears. She is having some flatus. Pain continuing to improve. Objective Vitals/I&O Vital Signs Date Time Temp Pulse Resp B/P (MAP) Pulse Ox O2 Delivery O2 Flow Rate FiO2 12/25/17 04:00 98.4 84 18 113/59 (77) 100 12/25/17 00:00 Nasal Cannula 4.00 Labs Laboratory Tests Test 12/24/17 11:17 12/25/17 06:55 White Blood Count 9.7 10.5 Red Blood Count 3.97 3.89 Hemoglobin 11.3 10.9 Hematocrit 36.0 35.6 Mean Corpuscular Volume 90.5 91.5 Mean Corpuscular Hemoglobin 28.4 28.2 Mean Corpuscular Hemoglobin Concent 31.4 30.8 Red Cell Distribution Width 16.1 16.2 Platelet Count 295 291 Mean Platelet Volume 7.5 7.4 Neutrophils (%) (Auto) 77.5 Lymphocytes (%) (Auto) 7.5 Monocytes (%) (Auto) 8.0 Eosinophils (%) (Auto) 6.8 Basophils (%) (Auto) 0.2 Neutrophils # (Auto) 7.5 Lymphocytes # (Auto) 0.7 Monocytes # (Auto) 0.8 Eosinophils # (Auto) 0.7 Basophils # (Auto) 0.0 CBC Comment DIFF FINAL Differential Comment Blood Urea Nitrogen 22 12 Creatinine 6.65 4.79 Random Glucose 95 96 Total Protein 6.9 Calcium Level 7.2 8.1 Sodium Level 138 139 Potassium Level 2.9 3.5 Chloride Level 92 96 Carbon Dioxide Level 35.4 35.8 Anion Gap 11 7 Estimat Glomerular Filtration Rate 8 11 Protein Corrected Calcium 7.3 Date/Time Source Procedure Growth Status 12/19/17 16:07 Stool Stool - Final NO ENTERIC PATHOGENS DETECTED BY PCR... Complete Radiology Last Impressions Abdomen/Pelvis CT 12/19/17 0750 Signed Impressions: Service Date/Time: Tuesday, December 19, 2017 17:20 - CONCLUSION: 1. Extensive portal venous air which raises the possibility of bowel ischemia. Free intraperitoneal air is noted within the left upper quadrant suggestive of perforated viscus. Diffuse wall thickening involving the nondistended distal transverse colon, splenic flexure and descending colon raises possibility of ischemic colitis. Findings were called immediately to [facility] at 6: 10 PM on 12/19/17. 2. Midline ventral abdominal wall hernia which is stable. 3. 3 mm calcified nonobstructing right renal calculus. 4. Bilateral renal cysts. Gaetano Matute MD Narrative Exam In bed, awake and alert nonlabored breathing A/P Assessment and Plan 57 yo F with ESRD, multiple medical comorbidities, with portal venous air and diffuse abdominal pain, C dif colitis. Improving. WBC nml. PO erythromycin for bowel motility. IV flagyl and PO vanco for c dif. Start soft diet. Prosper Madison MD Dec 25, 2017 08:22
[2017-12-25] MEDS: ASPIRIN EC 81 MG TABEC PO SCH (09:00)
[2017-12-25] MEDS: LIDOCAINE 4% CREAM 5 GM TUBE TOPICAL SCH ×2 (09:00→20:42)
[2017-12-25] MEDS: FAMOTIDINE 20 MG/2 ML VIAL IV PUSH SCH ×2 (09:33→20:42)
[2017-12-25] MEDS: buPROPion HCL 150 MG SUSTAINED RELEASE TAB PO SCH ×2 (09:34→20:41)
[2017-12-25] MEDS: MIDODRINE 5 MG TAB PO SCH (09:34)
[2017-12-25] MEDS: VANCOMYCIN 500 MG VIAL (FOR ORAL USE ONLY) PO SCH ×4 (09:34→20:42)
[2017-12-25] MEDS: ERYTHROMYCIN EC 250 MG TABEC PO SCH ×3 (09:34→18:40)
[2017-12-25] MEDS: SODIUM CHLORIDE 0.9% FLUSH 10 ML FLUSH IV FLUSH SCH ×2 (09:34→20:42)
[2017-12-25] MEDS: HYDROmorphone HCL PF 2 MG/ML VIAL IV PUSH PRN ×2 (11:35→20:45)
--- NOTE | 2017-12-25 12:19 | HHI.NPPN ---
Subjective History of Present Illness Patient with abdominal pain Additional Remarks c diff colitis Objective Data Data Vital Signs Date Time Temp Pulse Resp B/P (MAP) Pulse Ox O2 Delivery O2 Flow Rate FiO2 12/25/17 09:00 98 Nasal Cannula 3.00 12/25/17 08:00 97.8 84 20 116/67 (83) 98 12/25/17 04:00 98.4 84 18 113/59 (77) 100 12/25/17 03:44 83 12/25/17 00:00 Nasal Cannula 4.00 12/25/17 00:00 97.4 83 20 128/54 (78) 100 12/24/17 23:40 81 12/24/17 20:00 Nasal Cannula 4.00 12/24/17 20:00 97.8 89 18 141/74 (96) 99 12/24/17 19:43 92 12/24/17 16:25 97 Nasal Cannula 3.00 12/24/17 15:50 97.7 81 122/65 (84) 98 12/24/17 13:48 73 -: 12/25/17 0655 12/25/17 0655 Physical Exam General Appearance: Pale Neck Neck Exam: Neck Supple Pulmonary Resp Exam: Clear Bilaterally, Breath Sounds Equal Cardiology CV Exam: Regular, Normal Sinus Rhythm Gastrointestinal/Abdomen GI Exam: Distended Extremeties Extremities Exam: Moderate Edema Neurologic Neuro Exam: Alert, Awake Assessment/Plan Problem List: (1) ESRD (end stage renal disease) ICD Codes: N18.6 - End-stage renal disease Status: Chronic Plan: Patient is doing poorly as outpatient frequent admission to the hospital Now with C. difficile positive, gas in abdominal cavity and portal vein On HD MWF continue with out patient dialysis Rx for C diff colitis (2) Abdominal pain ICD Codes: R10.9 - Unspecified abdominal pain (3) Morbid obesity ICD Codes: E66.01 - Morbid (severe) obesity due to excess calories Status: Chronic (4) Hypotension ICD Codes: I95.9 - Hypotension Status: Resolved Plan: Chronic issues and takes Frank Chatman MD Dec 25, 2017 12:19
--- NOTE | 2017-12-25 12:37 | PD.WCN.NOT ---
Wound Consult Description: Consult place for bilateral buttocks per Dr Olivares Communicated with: DIMPLE Paulino Patient Recommendation: Calazime skin protectant to bilateral buttocks BID and PRN Bariatric bed so patient is able to be repositioned in bed from left to right with minimal assistance limiting time spent on her back for therapies. Additional Information: Patient seen on for wound assessment of bilateral buttocks. Patient was able to be repositioned to her left side with moderate assistance. Foam dressing removed to reveal partial thickness skin loss noted to bilateral buttocks to which Calazime skin protectant was applied. Wounds appear to have been larger previously with pink scar tissue noted to current periwounds. Wound etiology appears to be mixed etiology of pressure and moisture. Wounds are ~2cm x 1cm x <0.1cm. Patient would greatly benefit from a bariatric bed so that she may be assisted in repositioning with minimal assistance as patient is able to turn herself with help, however the current bed does not allow for sufficient room given her girth and body habitus. Jessenia Malcolm [facility] Dec 25, 2017 12:37
--- NOTE | 2017-12-25 13:26 | HHI.PR ---
Subjective Remarks Doing much better. NGT out. She tolerated some broth today. No abdominal pain. No diarrhea. Objective Vitals Vital Signs Date Time Temp Pulse Resp B/P (MAP) Pulse Ox O2 Delivery O2 Flow Rate FiO2 12/25/17 12:00 97.5 80 20 147/60 (89) 99 12/25/17 09:00 98 Nasal Cannula 3.00 12/25/17 08:00 97.8 84 20 116/67 (83) 98 12/25/17 04:00 98.4 84 18 113/59 (77) 100 12/25/17 03:44 83 12/25/17 00:00 Nasal Cannula 4.00 12/25/17 00:00 97.4 83 20 128/54 (78) 100 12/24/17 23:40 81 12/24/17 20:00 Nasal Cannula 4.00 12/24/17 20:00 97.8 89 18 141/74 (96) 99 12/24/17 19:43 92 12/24/17 16:25 97 Nasal Cannula 3.00 12/24/17 15:50 97.7 81 122/65 (84) 98 12/24/17 13:48 73 I/O 12/24/17 12/24/17 12/24/17 12/25/17 12/25/17 12/25/17 07:00 15:00 23:00 07:00 15:00 23:00 Intake Total 1250 ml 100 ml 440 ml 1580 ml Output Total 150 ml 1200 ml Balance 1100 ml -1100 ml 440 ml 1580 ml Intake Oral 0 ml 240 ml 480 ml IV Total 1250 ml 100 ml 200 ml 1100 ml Output Urine Total 0 ml Gastric Drainage Total 150 ml Hemodialysis 1200 ml # Voids 0 0 # Bowel Movements 0 0 0 Result Diagram: 12/25/17 0612/25/17 06 Objective Remarks GENERAL: Morbidly obese female, in no apparent distress. NG tube in place CARDIOVASCULAR: Normal rate and regular rhythm without murmurs, gallops, or rubs. RESPIRATORY: Good respiratory efforts. Breath sounds equal and clear to auscultation bilaterally. GASTROINTESTINAL: Abdomen soft. Normal and active bowel sounds. MUSCULOSKELETAL: Extremities without cyanosis, or edema. Right Achilles area has a dry wound. NEURO: Alert & Oriented x4 to person, place, time, situation. Moves all ext x4 PSYCH: Appropriate mood and affect. A/P Assessment and Plan 57Y/O F with severe acute C. difficile colitis with associated bowel ischemia and portal venous gas. very high risk for bowel infarction leading to massive intra-abdominal sepsis. Gen surg on board and current plan for conservative management with iv fluids, antibiotics, and serial abdominal exams. Patient continued to improve. Ischemic bowel -General surgery following. NG tube discontinued today. Patient tolerating a diet. General surgery signed off -Advance diet as tolerated. Severe C. difficile colitis: -Much improved. Diarrhea resolved -Vancomycin p.o -Discontinue IV Flagyl. ESRD -HD per nephrology Diabetes -Insulin sliding scale Hyperlipidemia -Atorvastatin COPD -DuoNeb's scheduled and as needed -No exacerbation no indication for steroid -O2 nasal cannula to keep sats above Hypokalemia/hypocalcemia: Replace and monitor Hypothyroidism -Levothyroxine Anxiety/depression -Lorazepam as needed Debility: -PT following. Patient would benefit from SNF for rehab but she adamantly refused. Discussed with daughter today. She will return home and her daughter will care for her at home. Chronic right lower extremity wound, chronic sacral wound, present on admission: - Wound examined and appear to be healing. Wound care following. DVT GI prophylaxis -Bernard's and SCDs -Subcu heparin -Pepcid Discharge Planning Plan for discharge tomorrow with home without home health in the care of her daughter if she remains stable. Nieves Olivares MD Dec 25, 2017 13:26
[2017-12-25] MEDS: traZODone HCL 50 MG TAB PO SCH (20:41)
[2017-12-25] MEDS: ATORVASTATIN 10 MG TAB PO SCH (20:41)
[2017-12-25] MEDS: SODIUM BICARBONATE 8.4% INJ 150 MEQ in DEXTROSE 5% IN WATE 1000ML INJ 1,000 ML IV SCH ×2 (20:49)
[2017-12-26] VITALS (12 sets, daily range): BP systolic 93–153; BP diastolic 52–95; PULSE 79–93; RESP 17–24; TEMP 97.5–98.6; O2SAT 94–100
[2017-12-26] MEDS: HYDROmorphone HCL PF 2 MG/ML VIAL IV PUSH PRN ×4 (03:03→23:25)
[2017-12-26] MEDS: CHLORHEXIDINE GLUCONATE 2 % 1 PACK (2 CLOTHS) TOP SCH (04:00)
[2017-12-26] MEDS: CALCIUM CARBONATE 1.25 GM (CA 500 MG) TAB PO SCH ×3 (06:00→21:23)
[2017-12-26] MEDS: HEPARIN SODIUM - SQ 10,000 UNITS/ML VIAL SQ SCH ×3 (06:15→23:24)
[2017-12-26] MEDS: ERYTHROMYCIN EC 250 MG TABEC PO SCH (08:00)
[2017-12-26] MEDS: LIDOCAINE 4% CREAM 5 GM TUBE TOPICAL SCH ×2 (09:00→21:00)
[2017-12-26] MEDS: buPROPion HCL 150 MG SUSTAINED RELEASE TAB PO SCH ×2 (09:26→21:23)
[2017-12-26] MEDS: MIDODRINE 5 MG TAB PO SCH (09:26)
[2017-12-26] MEDS: VANCOMYCIN 500 MG VIAL (FOR ORAL USE ONLY) PO SCH ×4 (09:27→21:23)
[2017-12-26] MEDS: ASPIRIN EC 81 MG TABEC PO SCH (09:27)
[2017-12-26] MEDS: FAMOTIDINE 20 MG/2 ML VIAL IV PUSH SCH ×2 (09:28→21:23)
[2017-12-26] MEDS: SODIUM CHLORIDE 0.9% FLUSH 10 ML FLUSH IV FLUSH SCH ×2 (09:29→21:25)
--- NOTE | 2017-12-26 13:03 | HHI.PR ---
Subjective Remarks Not feeling well today. Had diarrheaX2 overnight. Mild abdominal discomfort. Not tolerating much PO intake. Will try lunch. Objective Vitals Vital Signs Date Time Temp Pulse Resp B/P (MAP) Pulse Ox O2 Delivery O2 Flow Rate FiO2 12/26/17 08:40 98 Nasal Cannula 3.00 12/26/17 08:09 97.8 82 24 108/63 (78) 100 12/26/17 04:00 98.0 80 20 106/60 (75) 97 12/26/17 04:00 Nasal Cannula 4.00 12/26/17 03:39 81 12/26/17 00:00 Nasal Cannula 4.00 12/26/17 00:00 98.2 80 20 114/60 (78) 97 12/25/17 23:42 81 12/25/17 20:00 98.1 82 20 114/61 (78) 100 12/25/17 20:00 Nasal Cannula 4.00 12/25/17 17:46 98 Nasal Cannula 3.00 12/25/17 16:00 97.6 75 20 112/59 (76) 98 I/O 12/25/17 12/25/17 12/25/17 12/26/17 12/26/17 12/26/17 07:00 15:00 23:00 07:00 15:00 23:00 Intake Total 1580 ml 100 ml 1150 ml 420 ml Balance 1580 ml 100 ml 1150 ml 420 ml Intake Oral 480 ml 220 ml IV Total 1100 ml 100 ml 1150 ml 200 ml # Voids 0 # Bowel Movements 0 1 Result Diagram: 12/25/17 0655 12/25/17 06 Objective Remarks GENERAL: Morbidly obese female, in no apparent distress. NG tube in place CARDIOVASCULAR: Normal rate and regular rhythm without murmurs, gallops, or rubs. RESPIRATORY: Good respiratory efforts. Breath sounds equal and clear to auscultation bilaterally. GASTROINTESTINAL: Abdomen soft. Mild diffuse discomfort. Normal and active bowel sounds. MUSCULOSKELETAL: Extremities without cyanosis, or edema. Right Achilles area has a dry wound. NEURO: Alert & Oriented x4 to person, place, time, situation. Moves all ext x4 PSYCH: Appropriate mood and affect. A/P Assessment and Plan 57Y/O F with severe acute C. difficile colitis with associated bowel ischemia and portal venous gas. very high risk for bowel infarction leading to massive intra-abdominal sepsis. Gen surg on board and current plan for conservative management with iv fluids, antibiotics, and serial abdominal exams. Patient continued to improve. Ischemic bowel -General surgery following. S/P NG tube, discontinued. Patient tolerating some PO but appetite still poor. General surgery signed off -Advance diet as tolerated. Severe C. difficile colitis: -Much improved. Diarrhea X2 overnight. - Continue Vancomycin p.o ESRD -HD per nephrology Diabetes -Insulin sliding scale Hyperlipidemia -Atorvastatin COPD -DuoNeb's scheduled and as needed -No exacerbation no indication for steroid -O2 nasal cannula to keep sats above Hypokalemia/hypocalcemia: Replace and monitor Hypothyroidism -Levothyroxine Anxiety/depression -Lorazepam as needed Debility: -PT following. Patient would benefit from SNF for rehab but she adamantly refused. Discussed with daughter today. She will return home and her daughter will care for her at home. Chronic right lower extremity wound, chronic sacral wound, present on admission: - Wound examined and appear to be healing. Wound care following. DVT GI prophylaxis -Bernard's and SCDs -Subcu heparin -Pepcid Discharge Planning Will continue current treatment. Need to ensure she continues to progress before discharge. She is refusing SNF. Will need HHC. Possible DC tomorrow. Nieves Olivares MD Dec 26, 2017 13:03
[2017-12-26] MEDS: HEPARIN SODIUM - IV 10,000 UNITS/10 ML VIAL PRN (14:20)
[2017-12-26] MEDS: GENTAMICIN SULFATE 20 MG/2 ML VIAL OTHER PRN (14:20)
--- NOTE | 2017-12-26 14:33 | HHI.NPPN ---
Subjective History of Present Illness Patient with abdominal pain Additional Remarks c diff colitis Objective Data Data Vital Signs Date Time Temp Pulse Resp B/P (MAP) Pulse Ox O2 Delivery O2 Flow Rate FiO2 12/26/17 08:40 98 Nasal Cannula 3.00 12/26/17 08:09 97.8 82 24 108/63 (78) 100 12/26/17 04:00 98.0 80 20 106/60 (75) 97 12/26/17 04:00 Nasal Cannula 4.00 12/26/17 03:39 81 12/26/17 00:00 Nasal Cannula 4.00 12/26/17 00:00 98.2 80 20 114/60 (78) 97 12/25/17 23:42 81 12/25/17 20:00 98.1 82 20 114/61 (78) 100 12/25/17 20:00 Nasal Cannula 4.00 12/25/17 17:46 98 Nasal Cannula 3.00 12/25/17 16:00 97.6 75 20 112/59 (76) 98 -: 12/25/17 0655 12/25/17 0655 Physical Exam General Appearance: Pale Neck Neck Exam: Neck Supple Pulmonary Resp Exam: Clear Bilaterally, Breath Sounds Equal Cardiology CV Exam: Regular, Normal Sinus Rhythm Gastrointestinal/Abdomen GI Exam: Distended Extremeties Extremities Exam: Moderate Edema Neurologic Neuro Exam: Alert, Awake Assessment/Plan Problem List: (1) ESRD (end stage renal disease) ICD Codes: N18.6 - End-stage renal disease Status: Chronic Plan: Patient is doing poorly as outpatient frequent admission to the hospital Now with C. difficile positive, gas in abdominal cavity and portal vein On HD seen during dialysis UF 1.5 L tolerated it well Patient continued to have diarrhea c diff on PO Vancomycin (2) Abdominal pain ICD Codes: R10.9 - Unspecified abdominal pain (3) Morbid obesity ICD Codes: E66.01 - Morbid (severe) obesity due to excess calories Status: Chronic (4) Hypotension ICD Codes: I95.9 - Hypotension Status: Resolved Plan: Chronic issues and takes Frank Chatman MD Dec 26, 2017 14:33
[2017-12-26] MEDS: ATORVASTATIN 10 MG TAB PO SCH (21:23)
[2017-12-26] MEDS: traZODone HCL 50 MG TAB PO SCH (21:23)
[2017-12-27] VITALS: BP 97/53; PULSE 94; RESP 18; TEMP 97.4; O2SAT 97
[2017-12-27 00:11] VITALS: PULSE 94
[2017-12-27 04:00] VITALS: BP 90/52; PULSE 90; PULSE 92; RESP 19; TEMP 98.1; O2SAT 97
[2017-12-27] MEDS: CHLORHEXIDINE GLUCONATE 2 % 1 PACK (2 CLOTHS) TOP SCH (04:00)
[2017-12-27] MEDS: CALCIUM CARBONATE 1.25 GM (CA 500 MG) TAB PO SCH ×2 (06:27→13:22)
[2017-12-27] MEDS: HEPARIN SODIUM - SQ 10,000 UNITS/ML VIAL SQ SCH ×2 (06:27→13:47)
[2017-12-27 08:00] VITALS: BP 105/54; PULSE 90; RESP 18; TEMP 98.8; O2SAT 99
[2017-12-27] MEDS: MIDODRINE 5 MG TAB PO SCH (08:58)
[2017-12-27] MEDS: FAMOTIDINE 20 MG/2 ML VIAL IV PUSH SCH (08:59)
[2017-12-27] MEDS: buPROPion HCL 150 MG SUSTAINED RELEASE TAB PO SCH (08:59)
[2017-12-27] MEDS: HYDROmorphone HCL PF 2 MG/ML VIAL IV PUSH PRN ×2 (08:59→13:22)
[2017-12-27] MEDS: ASPIRIN EC 81 MG TABEC PO SCH (08:59)
[2017-12-27] MEDS: VANCOMYCIN 500 MG VIAL (FOR ORAL USE ONLY) PO SCH ×2 (08:59→13:22)
[2017-12-27] MEDS: LIDOCAINE 4% CREAM 5 GM TUBE TOPICAL SCH (09:00)
[2017-12-27] MEDS: SODIUM CHLORIDE 0.9% FLUSH 10 ML FLUSH IV FLUSH SCH (09:01)
[2017-12-27 09:07] VITALS: O2SAT 97
[2017-12-27] MEDS ORDERED: VANC250C2 PO (11:22)
--- NOTE | 2017-12-27 11:24 | HHI.DCPOC ---
Discharge Care Plan Diagnosis: (1) Severe sepsis (2) C. difficile colitis (3) Abdominal pain (4) ESRD on hemodialysis Goals to Promote Your Health * To prevent worsening of your condition and complications * To maintain your health at the optimal level Directions to Meet Your Goals Take your medications as prescribed Follow your dietary instruction Follow activity as directed Keep your appointments as scheduled Take your immunizations and boosters as scheduled If your symptoms worsen call your PCP, if no PCP go to Urgent Care Center or Emergency Room Smoking is Dangerous to Your Health. Avoid second hand smoke Call the 24-hour hour crisis hotline for domestic abuse at Nieves Olivares MD Dec 27, 2017 11:24
--- NOTE | 2017-12-27 11:25 | HHI.FF ---
Face to Face Verification Diagnosis: (1) Debility (2) C. difficile colitis (3) ESRD on hemodialysis (4) Severe sepsis (5) Morbid obesity Physical Therapy Order: Evaluate and Treat, Improve ambulation, Strength and gait training Home Health Nursing Order: Medical education Medication education-adverse effect Wound care and dressing changes Nursing assessment with vital signs I have seen patient Aleksandra Jenkins on 12/27/17. My clinical findings support the need for the requested home health care services because: Ltd mobility - disease progression Deconditioned w/ increased weakness Limited ability to care for self High risk of falls I certify that my clinical findings support that this patient is homebound because: Unsteady gait/balance Need for psychosocial assistance Nieves Olivares MD Dec 27, 2017 11:25
--- NOTE | 2017-12-27 12:03 | HHI.DS ---
Discharge Summary Admission Date Dec 19, 2017 at 19:55 Discharge Date: Dec 27, 2017 Admitting Diagnosis Mesenteric artery occlusion, C. difficile colitis, sepsis (1) C. difficile colitis ICD Code: A04.72 - Enterocolitis due to Clostridium difficile, not specified as recurrent (2) Severe sepsis ICD Code: A41.9 - Sepsis, unspecified organism; R65.20 - Severe sepsis without septic shock (3) Abdominal pain ICD Code: R10.9 - Unspecified abdominal pain (4) ESRD on hemodialysis ICD Code: N18.6 - End stage renal disease; Z99.2 - Dependence on renal dialysis Status: Chronic (5) Debility ICD Code: R53.81 - Other malaise Procedures None Brief History - From Admission HPI form the admitting physician: 57-year-old unfortunate -[place] Islander female with history of end-stage renal disease, diabetes, hypertension, morbid obesity she was at dialysis Center complaining of abdominal pain nausea and diarrhea for the past 2 days. The patient could not complete dialysis due to worsening nausea. One hour after she left dialysis center she felt sharp abdominal pain and was sent to the emergency department. The CT scan showed ischemic colitis, Air in portal venous system, bowel wall thickening. The PCR also positive for Clostridium difficile. The patient was examined by Dr. Madison/general surgery with recommendations of conservative management at this time since the patient is extremely poor candidate for surgical intervention. CBC/BMP: 12/25/17 0655 12/25/17 0655 Significant Findings Laboratory Tests Test 12/25/17 06:55 Red Blood Count 3.89 MIL/MM3 (4.00-5.30) Hemoglobin 10.9 GM/DL (11.6-15.3) Mean Corpuscular Hemoglobin Concent 30.8 % (32.0-36.0) Creatinine 4.79 MG/DL (0.50-1.00) Calcium Level 8.1 MG/DL (8.5-10.1) Chloride Level 96 MEQ/L (98-107) Carbon Dioxide Level 35.8 MEQ/L (21.0-32.0) Estimat Glomerular Filtration Rate 11 ML/MIN (>89) Imaging Last Impressions Abdomen X-Ray 12/23/17 0000 Signed Impressions: Service Date/Time: Saturday, December 23, 2017 10:38 - CONCLUSION: There is no free air or significant stool. Ronn Corona MD FACR Abdomen/Pelvis CT 12/19/17 1451 Signed Impressions: Service Date/Time: Tuesday, December 19, 2017 17:20 - CONCLUSION: 1. Extensive portal venous air which raises the possibility of bowel ischemia. Free intraperitoneal air is noted within the left upper quadrant suggestive of perforated viscus. Diffuse wall thickening involving the nondistended distal transverse colon, splenic flexure and descending colon raises possibility of ischemic colitis. Findings were called immediately to [facility] at 6: 10 PM on 12/19/17. 2. Midline ventral abdominal wall hernia which is stable. 3. 3 mm calcified nonobstructing right renal calculus. 4. Bilateral renal cysts. Gaetano Matute MD PE at Discharge GENERAL: Morbidly obese female, in no apparent distress. NG tube in place CARDIOVASCULAR: Normal rate and regular rhythm without murmurs, gallops, or rubs. RESPIRATORY: Good respiratory efforts. Breath sounds equal and clear to auscultation bilaterally. GASTROINTESTINAL: Abdomen soft. Non tender. Normal and active bowel sounds. MUSCULOSKELETAL: Extremities without cyanosis, or edema. Right Achilles area has a dry wound. NEURO: Alert & Oriented x4 to person, place, time, situation. Moves all ext x4 PSYCH: Appropriate mood and affect. Pt update on day of discharge Patient reports she is feeling better. No abdominal pain or diarrhea. Hospital Course 57Y/O F with severe sepsis secondary to C. difficile colitis with associated bowel ischemia and portal venous gas. Patient was admitted to the ICU. Was followed by General surgery and treated conservatively. Treatment course as below: Severe sepsis secondary to Severe C diff colitis: Patient met severe sepsis criteria on admission Heart rate over 90, WBC > 85244, < 4000 or > 10% bands, Lactate >2. Source C difficile colitis. - Patient treated with PO vancomycin. Sepsis resolved. Ischemic bowel - Per imaging. 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 -General surgery following. S/P NG tube, discontinued. Patient tolerating PO. General surgery signed off -Diet advanced. Severe C. difficile colitis: - Continue Vancomycin p.o to complete the course of treatment. ESRD -HD per nephrology Diabetes -Insulin sliding scale Hyperlipidemia -Atorvastatin COPD -DuoNeb's scheduled and as needed -No exacerbation no indication for steroid -O2 nasal cannula to keep sats above Hypothyroidism -Levothyroxine Anxiety/depression -Lorazepam as needed Debility: -PT following. Patient would benefit from SNF for rehab but she adamantly refused. Discussed with daughter. She will return home and her daughter will care for her at home. Chronic right lower extremity wound, chronic sacral wound, present on admission: - Wound examined and appear to be healing. Wound care followed. Pt Condition on Discharge: Good Discharge Disposition: Disch w/ Home Health Serv Discharge Time: > 30 minutes Discharge Instructions DIET: Follow Instructions for: Heart Healthy Diet Activities you can perform: Regular-No Restrictions Follow up Referrals: SNF/BALTA/HH with [facility] New Medications: Vancomycin (Vancomycin) 250 Mg Cap 250 MG PO QID for Infection, #12 CAP 0 Refills Continued Medications: Aspirin DR (Aspirin EC) 81 Mg Tabdr 81 MG PO DAILY for Prevent Blood Clot, #30 TAB Atorvastatin (Atorvastatin) 10 Mg Tab 10 MG PO HS for Cholesterol Management, #30 TAB 0 Refills Bupropion HCl ER 24 HR (Bupropion HCl ER 24 HR) 150 Mg Tab 300 MG PO DAILY for Control Depression, TAB 0 Refills Calcium Carbonate (Calcium Carbonate) 500 Mg Calcium (1250 Mg) Tab 2000 MG PO Q8HR for Calcium Supplement, TAB 0 Refills 1,250 mg calcium carbonate (500 mg elemental calcium) Gabapentin (Gabapentin) 300 Mg Cap 300 MG PO HS, #30 CAP 0 Refills Hydrocodone/Acetaminophen (Hydrocodone-Acetamin 5-325 mg) 5 Mg-325 Mg Tablet 1 TAB PO Q4H PRN for PAIN GREATER THAN 5, #15 TAB 0 Refills Ipratropium-Albuterol Inh (Combivent Respimat Inh) 20-100 [facility]/Act Aero 2 PUFF INH BID for Asthma Management, #1 INHALER 0 Refills Lidocaine Topical (Lmx Plus Topical) 4 % Kit 1 APPLIC TOPICAL BID for Pain Management, #1 KIT Midodrine (Midodrine) 10 Mg Tab 10 MG PO DAILY for Control Low Blood Pressure, #90 TAB 0 Refills Pantoprazole (Pantoprazole) 40 Mg Tab 40 MG PO DAILY for Reflux, #30 TAB 0 Refills Trazodone (Trazodone) 100 Mg Tablet 100 MG PO HS for Control Depression, #30 TAB 0 Refills [Silver Sulfadia 1% Crm (50 Gm)] () 50 APPLIC/50 GM CR 1 APPLIC TOPICAL BID, #1 TUBE Nieves Olivares MD Dec 27, 2017 12:02
[2017-12-27 12:34] LABS: HEMATOCRIT 35.5 % (35.0-46.0); HEMOGLOBIN 10.6 GM/DL (11.6-15.3); MEAN CELL VOLUME 94.2 FL (80.0-100.0); MEAN CORPUSCULAR HEMOGLOBIN 28.2 PG (27.0-34.0); MEAN PLATELET VOLUME 7.4 FL (7.0-11.0); PLATELET COUNT 311 TH/MM3 (150-450); RED BLOOD COUNT 3.76 MIL/MM3 (4.00-5.30); RED CELL DISTRIBUTION WIDTH 16.2 % (11.6-17.2); WHITE BLOOD COUNT 9.4 TH/MM3 (4.0-11.0)
[2017-12-27 12:35] LABS: MEAN CORPUSCULAR HGB CONC 29.9 % (32.0-36.0)
[2017-12-27 12:58] LABS: BICARBONATE 33.7 MEQ/L (21.0-32.0); CALCIUM 7.7 MG/DL (8.5-10.1); CREATININE 4.99 MG/DL (0.50-1.00)
--- NOTE | 2017-12-27 15:08 | HHI.NPPN ---
Subjective History of Present Illness Patient with abdominal pain Additional Remarks c diff colitis Objective Data Data Vital Signs Date Time Temp Pulse Resp B/P (MAP) Pulse Ox O2 Delivery O2 Flow Rate FiO2 12/27/17 09:07 97 Nasal Cannula 3.00 12/27/17 08:00 90 12/27/17 08:00 98.8 90 18 105/54 (71) 99 12/27/17 08:00 Nasal Cannula 4.00 12/27/17 04:00 98.1 90 19 90/52 (65) 97 12/27/17 04:00 92 12/27/17 00:11 94 12/27/17 00:00 97.4 94 18 97/53 (68) 97 12/26/17 21:24 98 Nasal Cannula 3.00 12/26/17 20:20 87 12/26/17 20:00 98.1 89 18 99/57 (71) 98 12/26/17 19:00 Nasal Cannula 4.00 12/26/17 16:00 98.1 89 18 109/54 (72) 98 -: 12/27/17 1154 12/27/17 1154 Physical Exam General Appearance: Pale Neck Neck Exam: Neck Supple Pulmonary Resp Exam: Clear Bilaterally, Breath Sounds Equal Cardiology CV Exam: Regular, Normal Sinus Rhythm Gastrointestinal/Abdomen GI Exam: Distended Extremeties Extremities Exam: Moderate Edema Neurologic Neuro Exam: Alert, Awake Assessment/Plan Problem List: (1) ESRD (end stage renal disease) ICD Codes: N18.6 - End-stage renal disease Status: Chronic Plan: Patient is doing poorly as outpatient frequent admission to the hospital Now with C. difficile positive, gas in abdominal cavity and portal vein Patient continued to have diarrhea c diff on PO Vancomycin (2) Abdominal pain ICD Codes: R10.9 - Unspecified abdominal pain (3) Morbid obesity ICD Codes: E66.01 - Morbid (severe) obesity due to excess calories Status: Chronic (4) Hypotension ICD Codes: I95.9 - Hypotension Status: Resolved Plan: Chronic issues and takes Frank Chatman MD Dec 27, 2017 15:08
== END 2017-12-27 15:12 | disposition home health service (06) | DRG 871 ==
LOC: NEPC 14:35 → NEDA 19:55 → NEDH 12-20 → N03A 12-20 04:25 → N04A 12-21 20:49
PROVIDERS: ADMIT Family Medicine; ATTEND Family Medicine
PROC: 5A1D70Z Performance of Urinary Filtration, Intermittent, Less than 6 Hours Per Day (ICD-10-PCS; principal; 2017-12-20)
DX: A41.4 Sepsis due to anaerobes (principal); N18.6 End stage renal disease; I13.2 Hypertensive heart and chronic kidney disease with heart failure and with stage 5 chronic kidney disease, or end stage renal disease; L89.159 Pressure ulcer of sacral region, unspecified stage; K55.1 Chronic vascular disorders of intestine; E87.2 Acidosis; A04.72 Enterocolitis due to Clostridium difficile, not specified as recurrent; E11.22 Type 2 diabetes mellitus with diabetic chronic kidney disease; Z68.42 Body mass index [BMI] 45.0-49.9, adult; I95.9 Hypotension, unspecified; E11.40 Type 2 diabetes mellitus with diabetic neuropathy, unspecified; R65.20 Severe sepsis without septic shock; E66.01 Morbid (severe) obesity due to excess calories; I50.9 Heart failure, unspecified; J44.9 Chronic obstructive pulmonary disease, unspecified; E78.5 Hyperlipidemia, unspecified; K21.9 Gastro-esophageal reflux disease without esophagitis; G47.30 Sleep apnea, unspecified; E89.0 Postprocedural hypothyroidism; E87.6 Hypokalemia; E83.51 Hypocalcemia; M19.071 Primary osteoarthritis, right ankle and foot; F32.9 Major depressive disorder, single episode, unspecified; F41.9 Anxiety disorder, unspecified; Z23 Encounter for immunization; Z83.3 Family history of diabetes mellitus; Z87.891 Personal history of nicotine dependence; Z88.1 Allergy status to other antibiotic agents; Z89.411 Acquired absence of right great toe; Z89.421 Acquired absence of other right toe(s); Z99.2 Dependence on renal dialysis
CPT/HCPCS: 36600; 74018; 74174; 74176; 76937; 80048; 80053; 82805; 83605; 83690; 83735; 84100; 84155; 85007; 85025; 85027; 85610; 85730; 87493; 87506; 87641; 90732; 90935; 93005; 96361; 96374; 96375; J0610; J1170; J1580; J1644; J2270; J2405; J2543; J3480; J7030; J7070; Q9967

== ENCOUNTER 2018-02-27 14:47 | Inpatient (IN) | payer MEDICARE, OTHER ==
[~2018-02-27] VITALS: Ht 167.6 cm; Wt 125.6 kg
[2018-02-27] VITALS (7 sets, daily range): BP systolic 78–121; BP diastolic 44–58; PULSE 79–94; RESP 20–22; TEMP 97.6; O2SAT 100
[~2018-02-27 14:47] MED LIST changes: +VANC250C2 PO
[2018-02-27] MEDS ORDERED: NEPHTAB3 PO (15:29)
[2018-02-27] MEDS ORDERED: LEVO50TA4 PO (15:29)
[2018-02-27] MEDS ORDERED: CALC667T PO (15:29)
[2018-02-27] MEDS ORDERED: NOVOLOGMXP SQ (15:29)
[2018-02-27] MEDS ORDERED: CHOL5000 PO (15:29)
[2018-02-27] MEDS ORDERED: SODIUM CHLOR 0.9% 1000 ML INJ 1,000 ML IV ONE ×2 (15:45→19:30)
--- NOTE | 2018-02-27 15:51 | PD ---
HPI Chief Complaint: Abnormal Results Time Seen by Provider: 15:13 Travel History International Travel<30 days: No Contact w/Intl Traveler<30days: No Traveled to known affect area: No History of Present Illness HPI The patient was seen and examined in the presence of the nurse. This patient was in the middle of dialysis and her blood pressure dropped. She was sent here. She said that she got dizzy and lightheaded. She says her blood pressures are always low usually around 90 systolic. Last several times they have been checked here she has been in the 90s systolic. Reportedly they were in the 60s. Dialysis was halted in the middle she had gotten 2.5 hours of dialysis. She denies fever or shortness of breath or chest pain. She does not produce any urine. No syncope. She arrives with a blood pressure of 83 systolic. Symptom severity is moderate. No alleviating factors. No exacerbating factors. She denies diarrhea. PFSH Past Medical History Hx Anticoagulant Therapy: No Anemia: Yes Arthritis: Yes Asthma: Yes Autoimmune Disease: No Blood Disorders: No Anxiety: Yes Depression: Yes Heart Rhythm Problems: No Cancer: No Cardiovascular Problems: Yes High Cholesterol: Yes Chemotherapy: No Chest Pain: Yes (occasionally ) Congestive Heart Failure: Yes COPD: Yes Cerebrovascular Accident: No Diabetes: Yes Patient Takes Glucophage: No Dialysis: Yes (M/W/F) Diminished Hearing: No Endocrine: Yes Gastrointestinal Disorders: Yes (ULCERS) GERD: Yes Glaucoma: No Genitourinary: Yes Headaches: Yes Hepatitis: No Hiatal Hernia: No Hypertension: No (LOW BLOOD PRESSURE) Immune Disorder: No Kidney Stones: No Musculoskeletal: Yes Neurologic: Yes Psychiatric: Yes (Depression, Anxiety, Suicidal ideation ) Reproductive: No Respiratory: Yes Immunizations Current: Yes Migraines: Yes (occasionally) Myocardial Infarction: No Pneumonia: Yes (HX) Radiation Therapy: No Renal Failure: Yes Seizures: No Sickle Cell Disease: No Sleep Apnea: Yes (refuses to use CPAP machine recommended by doctor) Thyroid Disease: Yes Ulcer: Yes PNEUMOCCOCAL Vaccine (Year): 3 Menopausal: Yes : 3 Para: 3 Miscarriage: 0 : 0 Past Surgical History Abdominal Surgery: Yes (Cholecyctectomy, Appendectomy) AICD: No Appendectomy: Yes Arteriovenous Shunt: Yes (x 4 --not working ) Body Medical Devices: Old nonfunctioning NANCY fistula. Current- Permacath Right Groin Cardiac Surgery: No Cholecystectomy: Yes Ear Surgery: No Endocrine Surgery: Yes (Parathyroid removed ) Eye Surgery: Yes (Bilateral Cataract) Genitourinary Surgery: No Gynecologic Surgery: Yes (Partial Hysterectomy) Hysterectomy: Yes (PARTIAL ) Insulin Pump: No Joint Replacement: No Neurologic Surgery: No Oral Surgery: Yes (Teeth removed- no dentures) Pacemaker: No Thoracic Surgery: No Other Surgery: Yes (GREAT TOE AMPUTATION R/L FOOT) Social History Alcohol Use: No Tobacco Use: No Substance Use: No Allergies-Medications (Allergen,Severity, Reaction): Coded Allergies: levofloxacin (Unverified Allergy, Severe, Anaphylaxis, 12/19/17) ANAPHYLAXIS Reported Meds & Prescriptions Reported Meds & Active Scripts Active [Silver Sulfadia 1% Crm (50 Gm)] 50 APPLIC/50 GM Cr 1 Applic TOPICAL BID Hydrocodone-Acetamin 5-325 mg (Hydrocodone/Acetaminophen) 5 Mg-325 Mg Tablet 1 Tab PO Q4H PRN Aspirin EC (Aspirin) 81 Mg Tabdr 81 Mg PO DAILY Reported Novolog Mix 70-30 Inj (Insulin Aspart Prota 70%/Aspart 30%) 1,000 Unit/10 Ml Vial 1 Units SQ Levothyroxine (Levothyroxine Sodium) 50 Mcg Tab 50 Mcg PO DAILY Vitamin D3 (Cholecalciferol) 5,000 Unit Cap 5,000 Units PO DAILY Calcium Acetate (Phosphate Binder) 667 Mg Tab 2,668 Mg PO TID Combivent Respimat Inh (Ipratropium-Albuterol Inh) 20-100 Assisted/Act Aero 2 Puff INH BID Gabapentin 300 Mg Cap 300 Mg PO HS Trazodone (Trazodone HCl) 100 Mg Tablet 100 Mg PO HS Calcium Carbonate 500 Mg Calcium (1250 Mg) Tab 2,000 Mg PO Q8HR 1,250 mg calcium carbonate (500 mg elemental calcium) Midodrine 10 Mg Tab 10 Mg PO DAILY Bupropion HCl ER 24 HR (Bupropion HCl) 150 Mg Tab 300 Mg PO DAILY Atorvastatin (Atorvastatin Calcium) 10 Mg Tab 10 Mg PO HS Nephro-Devendra (B-Complex W/ C & Folic Acid) 1 Tab 1 Tab PO DAILY Review of Systems General / Constitutional: No: Fever Eyes: No: Visual changes HENT: Positive: Lightheadedness, No: Headaches Cardiovascular: No: Chest Pain or Discomfort Respiratory: No: Shortness of Breath Gastrointestinal: No: Abdominal Pain Genitourinary: No: Dysuria Musculoskeletal: Positive: Weakness, No: Pain Skin: No Rash Neurologic: Positive: Weakness, Dizziness Psychiatric: No: Depression Endocrine: No: Polydipsia Hematologic/Lymphatic: No: Easy Bruising Physical Exam Narrative GENERAL: Well-nourished, well-developed patient in no apparent distress. SKIN: Focused skin assessment reveals no rash and nodules. Skin is Warm and dry. HEAD: Atraumatic. Normocephalic. EYES: Pupils equal and round. No scleral icterus. No injection or drainage. ENT: No nasal bleeding or discharge. Mucous membranes pink and moist. NECK: Trachea midline. No JVD. CARDIOVASCULAR: Regular rate and rhythm. No murmur appreciated. RESPIRATORY: No accessory muscle use. Clear to auscultation. Breath sounds equal bilaterally. GASTROINTESTINAL: Abdomen soft, non-tender, nondistended. Hepatic and splenic margins not palpable. MUSCULOSKELETAL: Had some right foot amputation. No clubbing. No cyanosis. No edema. Dialysis catheter in her right upper thigh shows no sign of infection NEUROLOGICAL: Awake and alert. No obvious cranial nerve deficits. Motor grossly within normal limits. Normal speech. PSYCHIATRIC: Appropriate mood and affect; insight and judgment normal. Data Data Last Documented VS Vital Signs Date Time Temp Pulse Resp B/P (MAP) Pulse Ox O2 Delivery O2 Flow Rate FiO2 02/27/18 19:04 87 22 85/53 (64) 100 Nasal Cannula 02/27/18 18:49 2.00 02/27/18 14:55 97.6 Orders Orders Iv Access Insert/Monitor (02/27/18 15:33) Complete Blood Count With Diff (02/27/18 15:33) Comprehensive Metabolic Panel (02/27/18 15:33) Sodium Chlor 0.9% 1000 Ml Inj (Ns 1000 M (02/27/18 15:45) Electrocardiogram (02/27/18 ) Chest, Single Ap (02/27/18 ) Calcium Chloride Inj (Calcium Chloride I (02/27/18 18:00) Labs Laboratory Tests Test 02/27/18 15:35 02/27/18 16:40 White Blood Count 12.1 TH/MM3 Red Blood Count 4.39 MIL/MM3 Hemoglobin 12.8 GM/DL Hematocrit 40.8 % Mean Corpuscular Volume 93.0 FL Mean Corpuscular Hemoglobin 29.1 PG Mean Corpuscular Hemoglobin Concent 31.3 % Red Cell Distribution Width 16.1 % Platelet Count 317 TH/MM3 Mean Platelet Volume 8.0 FL Neutrophils (%) (Auto) 81.8 % Lymphocytes (%) (Auto) 6.1 % Monocytes (%) (Auto) 5.9 % Eosinophils (%) (Auto) 5.9 % Basophils (%) (Auto) 0.3 % Neutrophils # (Auto) 9.9 TH/MM3 Lymphocytes # (Auto) 0.7 TH/MM3 Monocytes # (Auto) 0.7 TH/MM3 Eosinophils # (Auto) 0.7 TH/MM3 Basophils # (Auto) 0.0 TH/MM3 CBC Comment DIFF FINAL Differential Comment Blood Urea Nitrogen 28 MG/DL Creatinine 4.79 MG/DL Random Glucose 85 MG/DL Total Protein 8.9 GM/DL Albumin 2.7 GM/DL Calcium Level 7.4 MG/DL Alkaline Phosphatase 69 U/L Aspartate Amino Transf (AST/SGOT) 31 U/L Alanine Aminotransferase (ALT/SGPT) 26 U/L Total Bilirubin 0.6 MG/DL Sodium Level 136 MEQ/L Potassium Level 4.5 MEQ/L Chloride Level 103 MEQ/L Carbon Dioxide Level 22.8 MEQ/L Anion Gap 10 MEQ/L Estimat Glomerular Filtration Rate 11 ML/MIN Protein Corrected Calcium MG/DL MDM Medical Decision Making Medical Screen Exam Complete: Yes Emergency Medical Condition: Yes Medical Record Reviewed: Yes Differential Diagnosis Hypovolemia, cardiac arrhythmia, anemia Narrative Course I have reviewed the patient's electronic medical record. Reviewed the blood pressures of her more recent visits. She usually runs between 90 and 100 systolic Nursing staff placed a 22-gauge IV in the left shoulder I placed a 20-gauge IV in the left external jugular I gave her 500 cc IV normal saline Blood pressure after that is 121 systolic CBC shows hemoglobin of 12 and white count of 12 Metabolic shows normal sodium and potassium. Calcium is low at 7.4. I gave her 1 g IV calcium chloride. Creatinine is up as expected LFTs are reviewed Patient has no fever or tachycardia. She does not look septic nor toxic. She is in fact minimally symptomatic at this point I gave her the rest of the liter of saline. Blood pressure recheck now is back into the 80s systolic. This patient has a difficult disposition. She has chronic hypotension and takes Midrin for that. I spoke with her soft sugar supervisor Dr. Villagran. He did not see much more specific to do. He did note that during dialysis she complained of abdominal pain. She does have history of colitis. Her abdominal pain is for the most part resolved. However she is unhappy with being discharged without extensive workup. I am going to order noncontrast CT of abdomen and pelvis. I am going to give her a bit more IV fluid. Although I do not want to overdo it. I will have the night physician review the results. I do think she will be stable for outpatient follow-up. Rob Ngo MD Feb 27, 2018 15:51
[2018-02-27 16:13] LABS: AUTOMATED NEUTROPHIL # 9.9 TH/MM3 (1.8-7.7); BASOPHIL % 0.3 % (0.0-2.0); EOSINOPHIL # 0.7 TH/MM3 (0-0.4); EOSINOPHIL % 5.9 % (0.0-4.0); HEMATOCRIT 40.8 % (35.0-46.0); HEMOGLOBIN 12.8 GM/DL (11.6-15.3); LYMPH % 6.1 % (9.0-44.0); LYMPHOCYTE # 0.7 TH/MM3 (1.0-4.8); MEAN CORPUSCULAR HEMOGLOBIN 29.1 PG (27.0-34.0); MEAN CORPUSCULAR HGB CONC 31.3 % (32.0-36.0); MONO % 5.9 % (0.0-8.0); MONOCYTE # 0.7 TH/MM3 (0-0.9); NEUT % 81.8 % (16.0-70.0); PLATELET COUNT 317 TH/MM3 (150-450); RED BLOOD COUNT 4.39 MIL/MM3 (4.00-5.30); RED CELL DISTRIBUTION WIDTH 16.1 % (11.6-17.2); WHITE BLOOD COUNT 12.1 TH/MM3 (4.0-11.0)
--- NOTE | 2018-02-27 16:30 | RADRPT ---
EXAM DATE: 02/27/2018 4:13 PM EDT AGE/SEX: 57 years / Female INDICATIONS: Shortness of breath. CLINICAL DATA: This is the patient's initial encounter. Patient reports that signs and symptoms have been present for 4 - 6 days and indicates a pain score of 0/10. MEDICAL/SURGICAL HISTORY: . Hypertension. Renal disease, end stage. Congestive heart failure. . Appendectomy. Thyroidectomy. Cholecystectomy. [place] [facility] [place]. . FINDINGS: Single view chest demonstrates the heart and mediastinal contours to be within normal limits. The bakari gs are clear. The osseous structures are intact. Note is made of the tip of the dialysis catheter whi ch enters via the IVC. Note is made of old stents in the left axillary vein. In addition, there is a hero catheter in place the tip in size in the left subclavian vein. CONCLUSION: No acute cardiopulmonary findings. 2 stents in the left axillary vein and a hero catheter for venous access overlying the left chest Electronically signed by: Tahir Corona MD 02/27/2018 4:29 PM EDT
[2018-02-27 16:35] LABS: ALT (GPT) 26 U/L (10-53)
[2018-02-27 16:38] LABS: ALKALINE PHOSPHATASE 69 U/L (45-117); TOTAL BILIRUBIN ADULT 0.6 MG/DL (0.2-1.0); TOTAL PROTEIN 8.9 GM/DL (6.4-8.2)
[2018-02-27 17:29] LABS: ALBUMIN 2.7 GM/DL (3.4-5.0); AST (GOT) 31 U/L (15-37); BICARBONATE 22.8 MEQ/L (21.0-32.0); BLOOD UREA NITROGEN 28 MG/DL (7-18); CHLORIDE 103 MEQ/L (98-107); CREATININE 4.79 MG/DL (0.50-1.00); GLOMERULAR FILTRATION RATE 11 ML/MIN (>89); GLUCOSE,RANDOM 85 MG/DL (74-106); SODIUM (NA) 136 MEQ/L (136-145)
[2018-02-27 17:38] LABS: CALCIUM 7.4 MG/DL (8.5-10.1)
[2018-02-27] MEDS ORDERED: CALCIUM CHLORIDE INJ 1 GM in SODIUM CHLORIDE 0.9% INJ 100 ML IV ONE (18:00)
--- NOTE | 2018-02-27 20:11 | RADRPT ---
EXAM DATE: 02/27/2018 8:00 PM EDT AGE/SEX: 57 years / Female INDICATIONS: Abdomen pain. CLINICAL DATA: This is the patient's initial encounter. Patient reports that signs and symptoms have been present for 1 day and indicates a pain score of 5/10. MEDICAL/SURGICAL HISTORY: Cardiovascular disease. Hypertension. Dialysis. Appendectomy. Chol ecystectomy. Hysterectomy. RADIATION DOSE: 33.21 CTDI (mGy) [place] [facility] [place], 12/19/2017. . TECHNIQUE: Multiple contiguous axial images were obtained through the abdomen. Images were obtained using multiple row detector helical technique. Using automated exposure control and adjustment of the mA and/or kV according to patient size, radiation dose was kept as low as reasonably achievable to o btain optimal diagnostic quality images. DICOM format image data is available electronically for rev iew and comparison. FINDINGS: Lower Lungs: The visualized lower lungs are clear. Liver: The liver has a homogeneous density without space-occupying lesion. Cholecystectomy. There is no dilation of the biliary tree. Spleen: Homogeneous density without enlargement. Pancreas: Unremarkable without mass or calcification. Kidneys: Atrophic kidneys. No evidence of mass or hydronephrosis. Left renal low-density Adrenal Glands: Unremarkable. Aorta: Atherosclerotic changes of the abdominal aorta without aneurysmal dilation. There is central line in the right common femoral vein with tip in the inferior vena cava at the level of the liver. Bowel/Mesentery: The bowel loops are grossly unremarkable. The cecum and sigmoid colon have a normal configuration. Abdominal Wall: Fat-containing umbilical hernia. Retroperitoneum: No evidence of adenopathy in the retrocrural, para-aortic, or deep pelvic regions. Bladder: Contours are smooth. Reproductive Organs: No abnormal masses or calcifications seen. Inguinal: The inguinal region is unremarkable without evidence of adenopathy. Bony Structures: Patchy sclerotic changes of the marrow. Varices are seen within the anterior abdomi nal wall and chest. CONCLUSION: 1. Fat-containing umbilical hernia. 2. Status post cholecystectomy. 3. Atrophic kidneys 4. Left renal cyst. 5. 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 6. Patchy sclerotic changes of the bone marrow likely diffuse infiltrative process. Electronically signed by: Goyo Hahn MD 02/27/2018 8:09 PM EDT
[2018-02-27] MEDS ORDERED: DEXTROSE 50% IN WATER 50 ML VIAL(D50) IV PUSH PRN (21:00)
[2018-02-27] MEDS ORDERED: GLUCAGON 1 MG/ML VIAL OTHER PRN (21:00)
[2018-02-27] MEDS ORDERED: LACTULOSE SYRUP 20 GM/30 ML CUP PO PRN (21:00)
[2018-02-27] MEDS ORDERED: MAGNESIUM HYDROXIDE SUSP 30 ML CUP PO PRN (21:00)
[2018-02-27] MEDS ORDERED: BISACODYL 10 MG SUPP RECTAL PRN (21:00)
[2018-02-27] MEDS ORDERED: SENNOSIDES 8.6 MG TAB PO PRN (21:00)
[2018-02-27] MEDS ORDERED: NALOXONE HCL 0.4 MG/ML AMP IV PUSH PRN (21:00)
[2018-02-27] MEDS ORDERED: ACETAMINOPHEN 325 MG TAB PO PRN (21:00)
[2018-02-27] MEDS ORDERED: ONDANSETRON ODT 4 MG TAB PO PRN (21:00)
[2018-02-27] MEDS ORDERED: MIDODRINE 5 MG TAB PO ONE (22:00)
--- NOTE | 2018-02-27 22:01 | HHI.HP ---
HPI Service [facility] Primary Care Physician LESLYE Baker Admission Diagnosis HYPOTENSION Diagnoses: Travel History International Travel<30 Days: No Contact w/Intl Traveler <30 Da: No Traveled to Known Affected Are: No History of Present Illness 57-year-old female with a past medical history significant for diabetes, hyperlipidemia, CHF, COPD, end-stage renal disease on hemodialysis, hypotension , hypothyroidism, anxiety/depression and neuropathy presents to the emergency department for the evaluation of low blood pressure. The patient was at dialysis in her usual state of health when she states she felt lightheaded and dizzy and had a blood pressure in the 70s over 40s. The patient has a myriad of complaints including that she "aches all over." She also complains of a knot in her right breast and stomach cramps. She denies any chest pain or shortness of breath. No fever/chills. Crampy abdominal pain without nausea/ vomiting/diarrhea. No lateralizing signs/symptoms. Review of Systems Except as stated in HPI: all other systems reviewed are Neg Past Family Social History Past Medical History Diabetes Hyperlipidemia CHF COPD ESRD on hemodialysis Baseline hypotension on midodrine Hypothyroidism Anxiety/depression Neuropathy Past Surgical History AV fistula placements Cholecystectomy Parathyroidectomy Cataract removal Hysterectomy Appendectomy Right first and second toe amputations Right groin permacath placements Abdominal pertinent catheter placement and removal Dental extractions Allergies: Coded Allergies: levofloxacin (Unverified Allergy, Severe, Anaphylaxis, 12/19/17) ANAPHYLAXIS Family History Mother with diabetes and heart disease. Father with prostate cancer. Social History Used to smoke since age of [age] years old. Denies any alcohol abuse or drug abuse. Lives at home with her daughter. Mostly bedbound and wheelchair-bound Physical Exam Vital Signs Vital Signs Date Time Temp Pulse Resp B/P (MAP) Pulse Ox O2 Delivery O2 Flow Rate FiO2 02/27/18 19:04 87 22 85/53 (64) 100 Nasal Cannula 02/27/18 18:49 90 20 78/44 (55) 100 Nasal Cannula 2.00 02/27/18 17:23 90 86/48 (61) 02/27/18 16:00 98/55 (69) 02/27/18 15:45 121/58 (79) 02/27/18 14:55 97.6 94 20 83/52 (62) Nasal Cannula 2.00 Physical Exam GENERAL: Obese, -Citizen Of [place] female lying in bed SKIN: No rashes, ecchymoses or lesions. Cool and dry. HEAD: Atraumatic. Normocephalic. No temporal or scalp tenderness. EYES: Pupils equal round and reactive. Extraocular motions intact. No scleral icterus. No injection or drainage. ENT: Nose without bleeding, purulent drainage or septal hematoma. Throat without erythema, tonsillar hypertrophy or exudate. Uvula midline. Airway patent. NECK: Trachea midline. No JVD or lymphadenopathy. Supple, nontender, no meningeal signs. BREASTS: Palpable mass in the lateral aspect of the right breast that is approximately 4 x 3 cm. No signs of infection. Mass is tender to palpation. CARDIOVASCULAR: Regular rate and rhythm without murmurs, gallops, or rubs. RESPIRATORY: Clear to auscultation. Breath sounds equal bilaterally. No wheezes , rales, or rhonchi. GASTROINTESTINAL: Abdomen soft, non-tender, nondistended. No hepato-splenomegaly , or palpable masses. No guarding. MUSCULOSKELETAL: Extremities without clubbing, cyanosis, or edema. No joint tenderness, effusion, or edema noted. No calf tenderness. NEUROLOGICAL: Awake and alert. Cranial nerves II through XII intact. Motor and sensory grossly within normal limits. Normal speech. Laboratory Laboratory Tests Test 02/27/18 15:35 02/27/18 16:40 White Blood Count 12.1 Red Blood Count 4.39 Hemoglobin 12.8 Hematocrit 40.8 Mean Corpuscular Volume 93.0 Mean Corpuscular Hemoglobin 29.1 Mean Corpuscular Hemoglobin Concent 31.3 Red Cell Distribution Width 16.1 Platelet Count 317 Mean Platelet Volume 8.0 Neutrophils (%) (Auto) 81.8 Lymphocytes (%) (Auto) 6.1 Monocytes (%) (Auto) 5.9 Eosinophils (%) (Auto) 5.9 Basophils (%) (Auto) 0.3 Neutrophils # (Auto) 9.9 Lymphocytes # (Auto) 0.7 Monocytes # (Auto) 0.7 Eosinophils # (Auto) 0.7 Basophils # (Auto) 0.0 CBC Comment DIFF FINAL Differential Comment Blood Urea Nitrogen 28 Creatinine 4.79 Random Glucose 85 Total Protein 8.9 Albumin 2.7 Calcium Level 7.4 Alkaline Phosphatase 69 Aspartate Amino Transf (AST/SGOT) 31 Alanine Aminotransferase (ALT/SGPT) 26 Total Bilirubin 0.6 Sodium Level 136 Potassium Level 4.5 Chloride Level 103 Carbon Dioxide Level 22.8 Anion Gap 10 Estimat Glomerular Filtration Rate 11 Protein Corrected Calcium Result Diagram: 02/27/18 1535 02/27/18 1640 Caprini VTE Risk Assessment Caprini VTE Risk Assessment: Mod/High Risk (score >= 2) Caprini Risk Assessment Model Point Value = 1 Point Value = 2 Point Value = 3 Point Value = 5 Age 41-60 Minor surgery BMI > 25 kg/m2 Swollen legs Varicose veins or History of unexplained or recurrent spontaneous Oral contraceptives or hormone replacement Sepsis (< 1 month) Serious lung disease, including pneumonia (< 1 month) Abnormal pulmonary function Acute myocardial infarction Congestive heart failure (< 1 month) History of inflammatory bowel disease Medical patient at bed rest Age 61-74 Arthroscopic surgery Major open surgery (> 45 min) Laparoscopic surgery (> 45 min) Malignancy Confined to bed (> 72 hours) Immobilizing plaster cast Central venous access Age >= 75 History of VTE Family history of VTE Factor V Leiden Prothrombin [id number] Lupus anticoagulant Anticardiolipin antibodies Elevated serum homocysteine Heparin-induced thrombocytopenia Other congenital or acquired thrombophilia Stroke (< 1 month) Elective arthroplasty Hip, pelvis, or leg fracture Acute spinal cord injury (< 1 month) Prophylaxis Regimen Total Risk Factor Score Risk Level Prophylaxis Regimen 0-1 Low Early ambulation 2 Moderate Order ONE of the following: *Sequential Compression Device (SCD) *Heparin 5000 units SQ BID 3-4 Higher Order ONE of the following medications: *Heparin 5000 units SQ TID *Enoxaparin/Lovenox 40 mg SQ daily (WT < 150 kg, CrCl > 30 mL/min) *Enoxaparin/Lovenox 30 mg SQ daily (WT < 150 kg, CrCl > 10-29 mL/min) *Enoxaparin/Lovenox 30 mg SQ BID (WT < 150 kg, CrCl > 30 mL/min) AND/OR *Sequential Compression Device (SCD) 5 or more Highest Order ONE of the following medications: *Heparin 5000 units SQ TID (Preferred with Epidurals) *Enoxaparin/Lovenox 40 mg SQ daily (WT < 150 kg, CrCl > 30 mL/min) *Enoxaparin/Lovenox 30 mg SQ daily (WT < 150 kg, CrCl > 10-29 mL/min) *Enoxaparin/Lovenox 30 mg SQ BID (WT < 150 kg, CrCl > 30 mL/min) AND *Sequential Compression Device (SCD) Assessment and Plan Assessment and Plan Assessment/plan: 1. Hypotension Patient's blood pressure remains in the 80s/50s despite 1-1/2 L fluid resuscitation in the emergency department Midodrine TID with 1 dose now Monitor closely 2. End-stage renal disease on dialysis Patient last dialyzed today with the schedule of MWF Nephrology consulted, appreciate assistance 3. Diabetes mellitus Sliding-scale insulin Monitor blood glucose 4. Hyperlipidemia/CHF/COPD/hypothyroidism Continue home medications 5. Anxiety/depression/neuropathy Continue home medications 6. Right breast mass Does not appear to be infected May be fibrous change Follow-up as outpatient with primary care provider Patient will need mammogram FEN Renal diet Electrolytes: Monitor and replete as needed. Continue calcium supplementation. Heparin Carolina Pate MD Feb 27, 2018 22:01
[2018-02-27] MEDS: HEPARIN SODIUM - SQ 10,000 UNITS/ML VIAL SQ SCH (22:57)
[2018-02-27] MEDS: CALCIUM CARBONATE 1.25 GM (CA 500 MG) TAB PO SCH (22:57)
[2018-02-27] MEDS: DOCUSATE SODIUM 50 MG/SENNA 8.6 MG TAB PO SCH (22:58)
[2018-02-27] MEDS: SODIUM CHLORIDE 0.9% FLUSH 10 ML FLUSH IV FLUSH SCH (22:58)
[2018-02-27] MEDS: traZODone HCL 100 MG TAB PO SCH (22:58)
[2018-02-27] MEDS: GABAPENTIN 300 MG CAP PO SCH (22:58)
[2018-02-27] MEDS: ATORVASTATIN 10 MG TAB PO SCH (22:58)
[2018-02-27] MEDS: INSULIN ASPART SUPPLEMENTAL SCALE SQ SCH (22:58)
[2018-02-27] MEDS: ALBUTEROL SULFATE 90 MCG/ACT HFA 8 GM INHALER INH SCH (22:59)
[2018-02-28] VITALS (16 sets, daily range): BP systolic 62–127; BP diastolic 32–65; PULSE 62–93; RESP 12–20; TEMP 97.4–98.4; O2SAT 92–100
[2018-02-28] MEDS: CALCIUM CARBONATE 1.25 GM (CA 500 MG) TAB PO SCH ×3 (06:02→21:03)
[2018-02-28] MEDS: HEPARIN SODIUM - SQ 10,000 UNITS/ML VIAL SQ SCH ×3 (06:02→21:03)
[2018-02-28] MEDS: LEVOTHYROXINE SODIUM 50 MCG TAB PO SCH (06:02)
[2018-02-28] MEDS: INSULIN ASPART SUPPLEMENTAL SCALE SQ SCH ×4 (08:00→21:00)
[2018-02-28 08:04] LABS: AUTOMATED NEUTROPHIL # 7.4 TH/MM3 (1.8-7.7); BASOPHIL % 0.3 % (0.0-2.0); EOSINOPHIL # 0.7 TH/MM3 (0-0.4); EOSINOPHIL % 7.6 % (0.0-4.0); HEMATOCRIT 40.2 % (35.0-46.0); HEMOGLOBIN 12.6 GM/DL (11.6-15.3); LYMPH % 7.2 % (9.0-44.0); LYMPHOCYTE # 0.7 TH/MM3 (1.0-4.8); MEAN CORPUSCULAR HEMOGLOBIN 29.1 PG (27.0-34.0); MEAN CORPUSCULAR HGB CONC 31.3 % (32.0-36.0); MEAN PLATELET VOLUME 7.5 FL (7.0-11.0); MONO % 8.6 % (0.0-8.0); MONOCYTE # 0.8 TH/MM3 (0-0.9); NEUT % 76.3 % (16.0-70.0); PLATELET COUNT 297 TH/MM3 (150-450); RED BLOOD COUNT 4.32 MIL/MM3 (4.00-5.30); RED CELL DISTRIBUTION WIDTH 15.7 % (11.6-17.2); WHITE BLOOD COUNT 9.8 TH/MM3 (4.0-11.0)
[2018-02-28 08:42] LABS: BICARBONATE 24.8 MEQ/L (21.0-32.0)
[2018-02-28] MEDS: DOCUSATE SODIUM 50 MG/SENNA 8.6 MG TAB PO SCH ×2 (09:00→20:10)
[2018-02-28] MEDS: ALBUTEROL SULFATE 90 MCG/ACT HFA 8 GM INHALER INH SCH ×2 (09:00→21:07)
[2018-02-28] MEDS: SODIUM CHLORIDE 0.9% FLUSH 10 ML FLUSH IV FLUSH SCH ×2 (09:00→20:11)
[2018-02-28] MEDS ORDERED: PNEUMOCOCCAL POLYVALENT INJ 25 MCG/0.5 ML SYR IM ONE (09:00)
[2018-02-28] MEDS ORDERED: buPROPion HCL 150 MG EXTENDED RELEASE TAB PO SCH (09:00)
[2018-02-28] MEDS ORDERED: MIDODRINE 5 MG TAB PO SCH (09:00)
[2018-02-28] MEDS: TIOTROPIUM BROMIDE 18 MCG INH INH SCH (09:00)
[2018-02-28] MEDS ORDERED: SODIUM CHLOR 0.9% 250 ML INJ 250 ML IV ONE ×2 (09:30→10:15)
[2018-02-28] MEDS: CALCIUM ACETATE 667 MG CAP PO SCH ×3 (09:45→18:02)
[2018-02-28] MEDS: buPROPion HCL 150 MG SUSTAINED RELEASE TAB PO SCH ×2 (09:45→20:10)
[2018-02-28] MEDS: MIDODRINE 5 MG TAB PO SCH ×3 (09:46→18:02)
[2018-02-28] MEDS: ASPIRIN EC 81 MG TABEC PO SCH (09:46)
[2018-02-28] MEDS ORDERED: SODIUM CHLOR 0.9% 1000 ML INJ 1,000 ML IV PRN (15:26)
[2018-02-28] MEDS ORDERED: SODIUM CHLOR 0.9% 1000 ML INJ 1,000 ML OTHER PRN ×2 (15:26)
--- NOTE | 2018-02-28 15:26 | PD.CONS ---
HPI Service Nephrology Consult Requested By Dr. Palomino Reason for Consult ESRD Primary Care Physician LESLYE Baker History of Present Illness Patient is a 57-year-old -Greek female with end-stage renal disease due to hypertension, diabetes, morbid obesity, who has, she developed some dizziness and has low blood pressure, initially had some abdominal pain as well and came to the emergency with these complaints, her dialysis was cut short yesterday and blood pressure was low she was given normal saline, she does require fluid boluses and blood pressure ranges systolic 60s-80s, patient has chronic hypotension takes midodrine. Review of Systems Constitutional: COMPLAINS OF: Fatigue Respiratory: COMPLAINS OF: Shortness of breath Gastrointestinal: COMPLAINS OF: Abdominal pain, Nausea Musculoskeletal: COMPLAINS OF: Joint pain, Muscle aches, Back pain Neurologic: COMPLAINS OF: Abnormal gait Psychiatric: COMPLAINS OF: Anxiety Past Family Social History Allergies: Coded Allergies: levofloxacin (Unverified Allergy, Severe, Anaphylaxis, 12/19/17) ANAPHYLAXIS Past Medical History Diabetes Hyperlipidemia CHF COPD ESRD on hemodialysis Baseline hypotension on midodrine Hypothyroidism Anxiety/depression Neuropathy Past Surgical History AV fistula placements Cholecystectomy Parathyroidectomy Cataract removal Hysterectomy Appendectomy Right first and second toe amputations Right groin permacath placements Abdominal pertinent catheter placement and removal Dental extractions Reported Medications Reported Meds & Active Scripts Active [Silver Sulfadia 1% Crm (50 Gm)] 50 APPLIC/50 GM Cr 1 Applic TOPICAL BID Hydrocodone-Acetamin 5-325 mg (Hydrocodone/Acetaminophen) 5 Mg-325 Mg Tablet 1 Tab PO Q4H PRN Aspirin EC (Aspirin) 81 Mg Tabdr 81 Mg PO DAILY Reported Nephro-Devendra (B-Complex W/ C & Folic Acid) 1 Tab 1 Tab PO DAILY Novolog Mix 70-30 Inj (Insulin Aspart Prota 70%/Aspart 30%) 1,000 Unit/10 Ml Vial 1 Units SQ Levothyroxine (Levothyroxine Sodium) 50 Mcg Tab 50 Mcg PO DAILY Vitamin D3 (Cholecalciferol) 5,000 Unit Cap 5,000 Units PO DAILY Calcium Acetate (Phosphate Binder) 667 Mg Tab 2,668 Mg PO TID Combivent Respimat Inh (Ipratropium-Albuterol Inh) 20-100 Penitentiary/Act Aero 2 Puff INH BID Gabapentin 300 Mg Cap 300 Mg PO HS Trazodone (Trazodone HCl) 100 Mg Tablet 100 Mg PO HS Calcium Carbonate 500 Mg Calcium (1250 Mg) Tab 2,000 Mg PO Q8HR 1,250 mg calcium carbonate (500 mg elemental calcium) Midodrine 10 Mg Tab 10 Mg PO DAILY Bupropion HCl ER 24 HR (Bupropion HCl) 150 Mg Tab 300 Mg PO DAILY Atorvastatin (Atorvastatin Calcium) 10 Mg Tab 10 Mg PO HS Active Ordered Medications Current Medications Medications (Trade) Dose Ordered Sig/Mary Grace Route Start Time Stop Time Status Last Admin (NS Flush) 2 ml UNSCH PRN IV FLUSH 02/27/18 21:00 (NS Flush) 2 ml BID IV FLUSH 02/27/18 21:00 02/28/18 09:00 (Tylenol) 650 mg Q4H PRN PO 02/27/18 21:00 (Zofran Odt) 4 mg Q6H PRN PO 02/27/18 21:00 (Narcan Inj) 0.4 mg UNSCH PRN IV PUSH 02/27/18 21:00 (Yelena-Colace) 1 tab BID PO 02/27/18 21:00 02/27/18 22:58 (Milk Of Magnesia Liq) 30 ml Q12H PRN PO 02/27/18 21:00 (Senokot) 17.2 mg Q12H PRN PO 02/27/18 21:00 (Dulcolax Supp) 10 mg DAILY PRN RECTAL 02/27/18 21:00 (Lactulose Liq) 30 ml DAILY PRN PO 02/27/18 21:00 (D50w (Vial) Inj) 50 ml UNSCH PRN IV PUSH 02/27/18 21:00 (Glucagon Inj) 1 mg UNSCH PRN OTHER 02/27/18 21:00 (NovoLOG SUPPLEMENTAL SCALE) 1 ACHS SLIDING SCALE SQ 02/27/18 21:00 (Ecotrin Ec) 81 mg DAILY PO 02/28/18 09:00 02/28/18 09:46 (Lipitor) 10 mg HS PO 02/27/18 21:00 02/27/18 22:58 (Phoslo) 2,668 mg TID PO 02/28/18 09:00 02/28/18 13:54 (Oscal) 2,000 mg Q8HR PO 02/27/18 22:00 02/28/18 14:14 (Neurontin) 300 mg HS PO 02/27/18 21:00 02/27/18 22:58 ([place] 5-325 Mg) 1 tab Q4H PRN PO 02/27/18 21:00 (Synthroid) 50 mcg DAILY@0700 PO 02/28/18 07:00 02/28/18 06:02 (Proair Hfa Inh) 2 puff BID INH 02/27/18 21:00 (Desyrel) 100 mg HS PO 02/27/18 21:00 02/27/18 22:58 (Wellbutrin Sr) 150 mg BID PO 02/28/18 09:00 02/28/18 09:45 (Spiriva Inh) 18 mcg DAILY INH 02/28/18 09:00 (Heparin Inj) 5,000 units Q8HR SQ 02/27/18 22:00 02/28/18 13:55 (Proamatine) 10 mg TID PO 02/28/18 09:00 02/28/18 13:55 Family History Patient mother has diabetes Social History Denies smoking or alcohol use used to smoke when 18 years old Physical Exam Vital Signs Vital Signs Date Time Temp Pulse Resp B/P (MAP) Pulse Ox O2 Delivery O2 Flow Rate FiO2 02/28/18 15:10 98.2 62 18 127/65 (85) 92 02/28/18 14:00 93 02/28/18 12:00 85 77/45 (56) 02/28/18 12:00 98.4 91 12 84/45 (58) 96 02/28/18 11:00 91 78/50 (59) 99 02/28/18 10:00 90 89/56 (67) 97 02/28/18 09:15 92 14 62/38 (46) 98 02/28/18 09:00 88 64/40 (48) 100 02/28/18 08:30 89 68/45 (53) 99 02/28/18 08:00 98.3 91 18 62/32 (42) 99 02/28/18 04:15 98.4 90 20 87/52 (64) 94 02/27/18 22:14 02/27/18 21:00 79 22 88/57 (67) 100 Nasal Cannula 2.00 02/27/18 19:04 87 22 85/53 (64) 100 Nasal Cannula 02/27/18 18:49 90 20 78/44 (55) 100 Nasal Cannula 2.00 02/27/18 17:23 90 86/48 (61) 02/27/18 16:00 98/55 (69) 02/27/18 15:45 121/58 (79) Physical Exam GENERAL: Well-nourished, well-developed patient. SKIN: Warm and dry. HEAD: Normocephalic. EYES: No scleral icterus. No injection or drainage. NECK: Supple, trachea midline. No JVD or lymphadenopathy. CARDIOVASCULAR: Regular rate and rhythm without murmurs, gallops, or rubs. RESPIRATORY: Breath sounds equal bilaterally. No accessory muscle use. GASTROINTESTINAL: Abdomen soft, non-tender, nondistended. EXTREMITIES: No cyanosis, 1+ edema. NEUROLOGICAL: Awake, alert, and oriented x 3. Non-focal. Laboratory Laboratory Tests Test 02/27/18 15:35 02/27/18 16:40 02/28/18 07:15 White Blood Count 12.1 9.8 Red Blood Count 4.39 4.32 Hemoglobin 12.8 12.6 Hematocrit 40.8 40.2 Mean Corpuscular Volume 93.0 93.0 Mean Corpuscular Hemoglobin 29.1 29.1 Mean Corpuscular Hemoglobin Concent 31.3 31.3 Red Cell Distribution Width 16.1 15.7 Platelet Count 317 297 Mean Platelet Volume 8.0 7.5 Neutrophils (%) (Auto) 81.8 76.3 Lymphocytes (%) (Auto) 6.1 7.2 Monocytes (%) (Auto) 5.9 8.6 Eosinophils (%) (Auto) 5.9 7.6 Basophils (%) (Auto) 0.3 0.3 Neutrophils # (Auto) 9.9 7.4 Lymphocytes # (Auto) 0.7 0.7 Monocytes # (Auto) 0.7 0.8 Eosinophils # (Auto) 0.7 0.7 Basophils # (Auto) 0.0 0.0 CBC Comment DIFF FINAL DIFF FINAL Differential Comment Blood Urea Nitrogen 28 35 Creatinine 4.79 6.00 Random Glucose 85 99 Total Protein 8.9 Albumin 2.7 Calcium Level 7.4 8.0 Alkaline Phosphatase 69 Aspartate Amino Transf (AST/SGOT) 31 Alanine Aminotransferase (ALT/SGPT) 26 Total Bilirubin 0.6 Sodium Level 136 135 Potassium Level 4.5 4.3 Chloride Level 103 100 Carbon Dioxide Level 22.8 24.8 Anion Gap 10 10 Estimat Glomerular Filtration Rate 11 9 Protein Corrected Calcium Result Diagram: 02/28/18 0715 02/28/18 0715 Imaging Last Impressions Chest X-Ray 02/27/18 0000 Signed Impressions: CONCLUSION: No acute cardiopulmonary findings. 2 stents in the left axillary vein and a hero catheter for venous access overly ing the left chest Abdomen/Pelvis CT 02/27/18 0000 Signed Impressions: CONCLUSION: 1. Fat-containing umbilical hernia. 2. Status post cholecystectomy. 3. Atrophic kidneys 4. Left renal cyst. 5. 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 6. Patchy sclerotic changes of the bone marrow likely diffuse infiltrative pro cess. Assessment and Plan Problem List: (1) ESRD on hemodialysis ICD Codes: N18.6 - End stage renal disease; Z99.2 - Dependence on renal dialysis Status: Chronic Plan: Patient is on hemodialysis Sunday, Sunday and Sunday I increase midodrine to 20 mg 3 times daily Monitor blood pressure Cautiously remove fluid during dialysis (2) H/O parathyroidectomy ICD Codes: E89.2 - Postprocedural hypoparathyroidism Status: Chronic Plan: Patient is on calcium supplement (3) Hypotension ICD Codes: I95.9 - Hypotension, unspecified Status: Acute Plan: Continue to monitor Frank Villagran MD Feb 28, 2018 15:26
[2018-02-28] MEDS ORDERED: MANNITOL 12.5 GM/50 ML VIAL IV PRN (15:30)
[2018-02-28] MEDS ORDERED: cloNIDine HCL 0.1 MG TAB PO PRN (15:30)
[2018-02-28] MEDS ORDERED: SODIUM CHLORIDE 0.9% FLUSH 10 ML FLUSH IV FLUSH PRN (15:30)
[2018-02-28] MEDS ORDERED: HEPARIN SODIUM - IV 10,000 UNITS/10 ML VIAL PRN (15:30)
[2018-02-28] MEDS ORDERED: ACETAMINOPHEN 325 MG TAB PO PRN (15:30)
[2018-02-28] MEDS ORDERED: diphenhydrAMINE HCL 25 MG CAP PO PRN (15:30)
[2018-02-28] MEDS ORDERED: HEPARIN SODIUM - IV 10,000 UNITS/10 ML VIAL IV FLUSH PRN (15:30)
[2018-02-28] MEDS ORDERED: NITROGLYCERIN 0.4 MG SL 25 TABS/BTL SL PRN (15:30)
[2018-02-28] MEDS ORDERED: GENTAMICIN SULFATE 20 MG/2 ML VIAL OTHER PRN (15:30)
[2018-02-28] MEDS ORDERED: ONDANSETRON HCL 4 MG/2 ML VIAL IV PUSH PRN (15:30)
[2018-02-28] MEDS ORDERED: GELATIN 12 MM/7 MM FOAM TOP PRN (15:30)
[2018-02-28] MEDS ORDERED: ALBUMIN 25% INJ 100 ML IV PRN (15:30)
--- NOTE | 2018-02-28 15:40 | HHI.PR ---
Subjective Remarks Follow-up on patient with hypertension. Patient seen and examined. Patient's blood pressures have been running extremely low this morning, 62/32. Patient is alert and oriented. She complains of some lightheadedness but otherwise denies any complaints. Denies any vision changes, headache, palpitations or chest pain. She denies any nausea, vomiting or abdominal pain. She denies any urinary difficulties, diarrhea or constipation. She is complaining of shortness of breath and back pain after being placed in Trendelenburg. She states that she chronically has low blood pressures with systolics running in the 70s and 80s. Patient states that she was not able to complete dialysis yesterday due to low blood pressure. She is receiving a fluid bolus. Objective Vitals Vital Signs Date Time Temp Pulse Resp B/P (MAP) Pulse Ox O2 Delivery O2 Flow Rate FiO2 02/28/18 14:00 93 02/28/18 12:00 85 77/45 (56) 02/28/18 12:00 98.4 91 12 84/45 (58) 96 02/28/18 11:00 91 78/50 (59) 99 02/28/18 10:00 90 89/56 (67) 97 02/28/18 09:15 92 14 62/38 (46) 98 02/28/18 09:00 88 64/40 (48) 100 02/28/18 08:30 89 68/45 (53) 99 02/28/18 08:00 98.3 91 18 62/32 (42) 99 02/28/18 04:15 98.4 90 20 87/52 (64) 94 02/27/18 22:14 02/27/18 21:00 79 22 88/57 (67) 100 Nasal Cannula 2.00 02/27/18 19:04 87 22 85/53 (64) 100 Nasal Cannula 02/27/18 18:49 90 20 78/44 (55) 100 Nasal Cannula 2.00 02/27/18 17:23 90 86/48 (61) 02/27/18 16:00 98/55 (69) 02/27/18 15:45 121/58 (79) I/O 02/27/18 02/27/18 02/27/18 02/28/18 02/28/18 02/28/18 07:00 15:00 23:00 07:00 15:00 23:00 Intake Total 280 ml Balance 280 ml Intake Oral 280 ml # Bowel Movements 1 Result Diagram: 02/28/18 0715 02/28/18 0715 Imaging Last Impressions Chest X-Ray 02/27/18 0000 Signed Impressions: CONCLUSION: No acute cardiopulmonary findings. 2 stents in the left axillary vein and a hero catheter for venous access overly ing the left chest Abdomen/Pelvis CT 02/27/18 0000 Signed Impressions: CONCLUSION: 1. Fat-containing umbilical hernia. 2. Status post cholecystectomy. 3. Atrophic kidneys 4. Left renal cyst. 5. 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 6. Patchy sclerotic changes of the bone marrow likely diffuse infiltrative pro cess. Objective Remarks GENERAL: Obese, -[place] female lying in bed. Awake and alert. Oriented x 3. In Trendelenburg position. SKIN: Warm and dry. + Open wound posterior right ankle over Achilles with foul- smelling drainage HEAD: Atraumatic. Normocephalic. EYES: Pupils equal round and reactive. Extraocular motions intact. No scleral icterus. No injection or drainage. ENT: Nose without bleeding or purulent drainage. Airway patent. MMM. NECK: Trachea midline. BREASTS: Palpable mass in the lateral aspect of the right breast that is approximately 4 x 3 cm. Mass is tender to palpation. No evidence of infection. CARDIOVASCULAR: Regular rate and rhythm without murmurs, gallops, or rubs. RESPIRATORY: Difficult to assess. Clear to anterior auscultation. Breath sounds equal bilaterally. No wheezes, rales, or rhonchi. GASTROINTESTINAL: Abdomen soft, non-tender, nondistended. No guarding. MUSCULOSKELETAL: Extremities without clubbing or cyanosis. Trace edema BLE. No joint tenderness, effusion, or edema noted. No calf tenderness. NEUROLOGICAL: Awake and alert. Cranial nerves II through XII intact. Motor and sensory grossly within normal limits. No focal neurologic finding appreciated. Normal speech. PSYCHIATRIC: Calm and cooperative. Procedures None A/P Assessment and Plan 57-year-old female with a past medical history significant for diabetes, hyperlipidemia, CHF, COPD, end-stage renal disease on hemodialysis, hypotension , hypothyroidism, anxiety/depression and neuropathy presents to the emergency department for the evaluation of low blood pressure. Hypotension, chronic, symptomatic Patient states her systolic blood pressure runs in the 70s and 80s Dysautonomia No evidence of sepsis BP 66/45 this am, improved to 89/56 after given Midodrine dose and small IV fluid bolus -Transfer patient to critical care -Continue on midodrine TID -Continue in Trendelenburg position -obtain 2D echo -fall precautions -Cautious use of IV fluids given end-stage renal disease End-stage renal disease on dialysis MWF -Nephrology consulted, appreciate assistance -Continue on PhosLo Diabetes mellitus -Continue on Accu-Cheks and sliding-scale insulin -Monitor blood glucose Hyperlipidemia/CHF/COPD/hypothyroidism -Continue home medications -Monitor for signs of fluid overload -Check TSH level Right ankle wound with foul-smelling drainage -Obtain wound culture -Consult wound care, appreciate assistance Hx of cdiff infection 12/26 History of ischemic bowel Patient denies any GI complaints -Continue to monitor Anxiety/depression/neuropathy -Continue home medications Painful right breast mass Does not appear to be infected May be fibrous change -Follow-up as outpatient with primary care provider -Discussed obtaining mammogram as outpatient DVT prophylaxis -Heparin subcu Rossy Beyer Feb 28, 2018 15:40
--- NOTE | 2018-02-28 17:58 | HHI.PR ---
Addendum to Inpatient Note Addendum Reason: Additional Documentation Additional Information Pt was evaluated emergently this AM when RN notified pt was hypotensive with SBP in the 60s on multiple reads pulse around 80s-90s. Pt reported feeling lightheaded mildly. says her SBP runs 80s-90s typically. Pt was placed in trendelenburg, started on NS. Unit bed ordered as pt is beyond the scope of CDU at this point. Near end of 500 ccs pressure eventually came up to 90s. afebrile. Ramon Hilton MD Feb 28, 2018 17:58
--- NOTE | 2018-02-28 19:08 | EKG ---
Date Performed: 02/27/2018 Time Performed: 16:10:22 PTAGE: 57 years EKG: Sinus rhythm WITH FREQUENT VENTRICULAR PREMATURE COMPLEXES BORDERLINE LEFT AXIS DEVIATION LOW QRS VOLTAGE IN PREC ORDIAL LEADS POSSIBLE RIGHT VENTRICULAR CONDUCTION DELAY ABNORMAL RHYTHM ECG PREVIOUS TRACING : 12/19/2017 15.15 When compared to prior EKG,patient is no longer tachycardic , ST depression has improved DOCTOR: Jessica Gordon Interpretating Date/Time 02/28/2018 19:07:43
[2018-02-28] MEDS: GABAPENTIN 300 MG CAP PO SCH (20:10)
[2018-02-28] MEDS: traZODone HCL 100 MG TAB PO SCH (20:10)
[2018-02-28] MEDS: ATORVASTATIN 10 MG TAB PO SCH (20:10)
[2018-03-01] VITALS (34 sets, daily range): BP systolic 73–125; BP diastolic 46–75; PULSE 78–92; RESP 13–27; TEMP 97.6–98.6; O2SAT 100
[2018-03-01] MEDS ORDERED: SODIUM CHLOR 0.9% 250 ML INJ 250 ML IV ONE (01:30)
[2018-03-01] MEDS ORDERED: CHLORHEXIDINE GLUCONATE 2 % 1 PACK (2 CLOTHS)(extra cloths) TOPICAL PRN (03:00)
[2018-03-01] MEDS: CHLORHEXIDINE GLUCONATE 2 % 1 PACK (2 CLOTHS)(taper/protocol) TOPICAL SCH (04:00)
[2018-03-01] MEDS: LEVOTHYROXINE SODIUM 50 MCG TAB PO SCH (06:52)
[2018-03-01] MEDS: CALCIUM CARBONATE 1.25 GM (CA 500 MG) TAB PO SCH ×3 (06:53→21:09)
[2018-03-01] MEDS: HEPARIN SODIUM - SQ 10,000 UNITS/ML VIAL SQ SCH ×3 (06:56→21:10)
[2018-03-01] MEDS: INSULIN ASPART SUPPLEMENTAL SCALE SQ SCH ×4 (08:00→21:00)
--- NOTE | 2018-03-01 08:04 | HHI.PR ---
Subjective Remarks f/u; hypotension in no acute distress. slightly lightheaded; but with no chest pain, sob. afebrile. BP trend noted. Objective Vitals Vital Signs Date Time Temp Pulse Resp B/P (MAP) Pulse Ox O2 Delivery O2 Flow Rate FiO2 03/01/18 06:00 92 03/01/18 04:00 82 03/01/18 04:00 98.4 82 14 81/46 (58) 100 03/01/18 02:00 82 03/01/18 00:00 98.2 85 19 91/58 (69) 100 03/01/18 00:00 85 02/28/18 22:00 92 02/28/18 20:23 100 Nasal Cannula 2.00 02/28/18 20:00 79 02/28/18 20:00 97.4 79 17 86/52 (63) 100 02/28/18 19:00 97 Nasal Cannula 2.00 02/28/18 18:00 80 02/28/18 17:00 98 Nasal Cannula 2.00 02/28/18 16:00 84 02/28/18 16:00 98.0 84 14 84/49 (61) 100 02/28/18 15:10 98.2 62 18 127/65 (85) 92 02/28/18 14:00 93 02/28/18 13:30 100 Nasal Cannula 2.00 02/28/18 12:00 85 77/45 (56) 02/28/18 12:00 98.4 91 12 84/45 (58) 96 02/28/18 11:00 91 78/50 (59) 99 02/28/18 10:00 90 89/56 (67) 97 02/28/18 09:15 92 14 62/38 (46) 98 02/28/18 09:00 88 64/40 (48) 100 02/28/18 08:30 89 68/45 (53) 99 I/O 02/28/18 02/28/18 02/28/18 03/01/18 03/01/18 03/01/18 07:00 15:00 23:00 07:00 15:00 23:00 Intake Total 280 ml 240 ml 370 ml Balance 280 ml 240 ml 370 ml Intake Oral 280 ml 240 ml 120 ml IV Total 250 ml # Bowel Movements 1 0 0 Result Diagram: 02/28/18 0715 02/28/18 0715 Imaging Last Impressions Chest X-Ray 02/27/18 0000 Signed Impressions: CONCLUSION: No acute cardiopulmonary findings. 2 stents in the left axillary vein and a hero catheter for venous access overly ing the left chest Abdomen/Pelvis CT 02/27/18 0000 Signed Impressions: CONCLUSION: 1. Fat-containing umbilical hernia. 2. Status post cholecystectomy. 3. Atrophic kidneys 4. Left renal cyst. 5. 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 6. Patchy sclerotic changes of the bone marrow likely diffuse infiltrative pro cess. Objective Remarks GENERAL: This is a well-nourished, well-developed patient, in no apparent distress. CARDIOVASCULAR: Regular rate and regular rhythm without murmurs, gallops, or rubs. RESPIRATORY: Clear to auscultation. Breath sounds equal bilaterally. No wheezes , rales, or rhonchi. GASTROINTESTINAL: Abdomen soft, non-tender, nondistended. Normal, active bowel sounds MUSCULOSKELETAL: Extremities without clubbing, cyanosis, or edema. NEURO: Alert & Oriented x4 to person, place, time, situation. Moves all ext x4 Procedures None Medications and IVs Inpatient Medications Acetaminophen (Tylenol) 650 mg UNSCH PRN PO for headach, pain, temp > 101F; Start 02/28/18 at 15:30 Acetaminophen/ Hydrocodone Bitart ([place] 5-325 Mg) 1 tab Q4H PRN PO PAIN GREATER THAN 5; Start 02/27/18 at 21:00 Albumin Human 100 ml @ 60 mls/hr UNSCH PRN IV WITH DIALYSIS; Start 02/28/18 at 15:30 Albuterol Sulfate (Proair Hfa Inh) 2 puff BID INH Last administered on at 21:07; Start 02/27/18 at 21:00 Aspirin (Ecotrin Ec) 81 mg DAILY PO Last administered on 02/28/18at 09:46; Start 02/28/18 at 09:00 Atorvastatin Calcium (Lipitor) 10 mg HS PO Last administered on 02/28/18at 20:10 ; Start 02/27/18 at 21:00 Bisacodyl (Dulcolax Supp) 10 mg DAILY PRN RECTAL SEVERE CONSITIPATION; Start at 21:00 Bupropion HCl (Wellbutrin Sr) 150 mg BID PO Last administered on 02/28/18at 20: 10; Start 02/28/18 at 09:00 Bupropion HCl (Wellbutrin Xl 24 Hr) 150 mg BID PO ; Start 02/28/18 at 09:00; Stop 02/28/18 at 09:00; Status DC Calcium Acetate (Phoslo) 2,668 mg TID PO Last administered on 02/28/18at 18:02; Start 02/28/18 at 09:00 Calcium Carbonate (Oscal) 2,000 mg Q8HR PO Last administered on 03/01/18at 06:53 ; Start 02/27/18 at 22:00 Calcium Chloride 1 gm/Sodium Chloride 110 ml @ 110 mls/hr ONCE ONCE IV Last administered on 02/27/18at 19:48; Start 02/27/18 at 18:00; Stop 02/27/18 at 18:59 ; Status DC Chlorhexidine Gluconate (Chlorhexidine 2% Cloth) 3 pack UNSCH PRN TOPICAL HYGIENIC CARE; Start 03/01/18 at 03:00; Stop 03/06/18 at 02:47 Clonidine (Catapres) 0.1 mg UNSCH PRN PO for BP > 180/100 X 2 readings; Start 02/28/18 at 15:30 Dextrose (D50w (Vial) Inj) 50 ml UNSCH PRN IV PUSH HYPOGLYCEMIA-SEE COMMENTS; Start 02/27/18 at 21:00 Diphenhydramine HCl (Benadryl) 25 mg UNSCH PRN PO for hives/itching/anaphylaxis ; Start 02/28/18 at 15:30 Gabapentin (Neurontin) 300 mg HS PO Last administered on 02/28/18at 20:10; Start 02/27/18 at 21:00 Gelatin (Gelfoam 12 Mm/7 Mm Top) 1 foam UNSCH PRN TOP SEE LABEL COMMENTS; Start 02/28/18 at 15:30 Gentamicin Sulfate (Gentamicin Inj) 20 mg UNSCH PRN OTHER WITH DIALYSIS; Start 02/28/18 at 15:30 Glucagon (Glucagon Inj) 1 mg UNSCH PRN OTHER HYPOGLYCEMIA-SEE COMMENTS; Start 02/27/18 at 21:00 Heparin Sodium (Porcine) (Heparin Inj) UNSCH PRN .XX WITH DIALYSIS; Start at 15:30 Insulin Aspart (NovoLOG SUPPLEMENTAL SCALE) 1 ACHS SLIDING SCALE SQ ; Start at 21:00 Lactulose (Lactulose Liq) 30 ml DAILY PRN PO SEVERE CONSITIPATION; Start at 21:00 Levothyroxine Sodium (Synthroid) 50 mcg DAILY@0700 PO Last administered on 03/01at 06:52; Start 02/28/18 at 07:00 Magnesium Hydroxide (Milk Of Magnesia Liq) 30 ml Q12H PRN PO Mild constipation ; Start 02/27/18 at 21:00 Mannitol (Mannitol Inj) 12.5 gm UNSCH PRN IV WITH DIALYSIS; Start 02/28/18 at 15:30 Midodrine (Proamatine) 20 mg TID PO Last administered on 02/28/18at 18:02; Start 02/28/18 at 18:00 Miscellaneous Information ([facility] Nursing Information) Patient in critical care unit? Ass... Q361D .XX ; Start 03/01/18 at 03:00 Naloxone HCl (Narcan Inj) 0.4 mg UNSCH PRN IV PUSH SEE LABEL COMMENTS; Start at 21:00 Nitroglycerin (Nitrostat Sl) 0.4 mg UNSCH PRN SL CHEST PAIN; Start 02/28/18 at 15:30 Ondansetron HCl (Zofran Odt) 4 mg Q6H PRN PO NAUSEA OR VOMITING; Start at 21:00 Ondansetron HCl (Zofran Inj) 4 mg UNSCH PRN IV PUSH WITH DIALYSIS; Start at 15:30 Pneumococcal Polyvalent Vaccine (Pneumovax-23 Inj) 25 mcg ONCE ONCE IM ; Start 02/28/18 at 09:00; Stop 02/28/18 at 09:01; Status DC Senna/Docusate Sodium (Yelena-Colace) 1 tab BID PO Last administered on at 20:10; Start 02/27/18 at 21:00 Sennosides (Senokot) 17.2 mg Q12H PRN PO Moderate constipation; Start 02/27/18 at 21:00 Sodium Chloride 250 ml @ 250 mls/hr BOLUS ONCE IV Last administered on at 01:31; Start 03/01/18 at 01:30; Stop 03/01/18 at 02:29; Status DC Sodium Chloride (NS Flush) 5 ml UNSCH PRN IV FLUSH WITH DIALYSIS; Start at 15:30 Tiotropium [place] (Spiriva Inh) 18 mcg DAILY INH ; Start 02/28/18 at 09:00 Trazodone HCl (Desyrel) 100 mg HS PO Last administered on 02/28/18at 20:10; Start 02/27/18 at 21:00 A/P Assessment and Plan A/P Hypotension, chronic, symptomatic Patient states her systolic blood pressure runs in the 70s and 80s Dysautonomia No evidence of sepsis received bolus fluid -Continue on midodrine TID ; the dose was increased to 20 mg tid. -Continue in Trendelenburg position -obtain 2D echo -fall precautions -Cautious use of IV fluids given end-stage renal disease End-stage renal disease on dialysis MWF -Nephrology consulted, appreciate assistance -Continue on PhosLo Diabetes mellitus -Continue on Accu-Cheks and sliding-scale insulin -Monitor blood glucose Hyperlipidemia/CHF/COPD/hypothyroidism -Continue home medications -Monitor for signs of fluid overload Right ankle wound with foul-smelling drainage -Consulted wound care, appreciate assistance Hx of cdiff infection 12/26 History of ischemic bowel Patient denies any GI complaints -Continue to monitor Anxiety/depression/neuropathy -Continue home medications Painful right breast mass Does not appear to be infected May be fibrous change -Follow-up as outpatient with primary care provider -Discussed obtaining mammogram as outpatient DVT prophylaxis -Heparin subcu keep in the ICU today - continue to monitor BP closely. Alex Bernal MD Mar 01, 2018 08:04
[2018-03-01] MEDS: CALCIUM ACETATE 667 MG CAP PO SCH ×3 (08:24→17:41)
[2018-03-01] MEDS: buPROPion HCL 150 MG SUSTAINED RELEASE TAB PO SCH ×2 (08:24→21:09)
[2018-03-01] MEDS: DOCUSATE SODIUM 50 MG/SENNA 8.6 MG TAB PO SCH ×2 (08:24→21:09)
[2018-03-01] MEDS: MIDODRINE 5 MG TAB PO SCH ×3 (08:24→17:41)
[2018-03-01] MEDS: ASPIRIN EC 81 MG TABEC PO SCH (08:24)
[2018-03-01] MEDS: SODIUM CHLORIDE 0.9% FLUSH 10 ML FLUSH IV FLUSH SCH ×2 (08:25→21:09)
[2018-03-01] MEDS: TIOTROPIUM BROMIDE 18 MCG INH INH SCH (08:25)
[2018-03-01] MEDS: ALBUTEROL SULFATE 90 MCG/ACT HFA 8 GM INHALER INH SCH ×2 (08:26→21:00)
--- NOTE | 2018-03-01 16:32 | HHI.NPPN ---
Objective Data Data 03/01/18 03/02/18 19:00 07:00 Output Total 2500 ml Balance -2500 ml Output Hemodialysis 2500 ml Vital Signs Date Time Temp Pulse Resp B/P (MAP) Pulse Ox O2 Delivery O2 Flow Rate FiO2 03/01/18 15:30 86 03/01/18 15:00 88 18 115/68 (84) 100 03/01/18 15:00 88 03/01/18 14:45 90 17 112/67 (82) 100 03/01/18 14:45 90 03/01/18 14:30 87 18 109/65 (80) 100 03/01/18 14:30 87 03/01/18 14:15 89 20 106/65 (79) 100 03/01/18 14:15 89 03/01/18 14:00 86 03/01/18 14:00 86 22 101/61 (74) 100 03/01/18 13:45 85 16 122/59 (80) 100 03/01/18 13:45 85 03/01/18 13:30 81 15 112/59 (76) 100 03/01/18 13:30 81 03/01/18 13:15 84 03/01/18 13:15 84 22 80/50 (60) 100 03/01/18 13:00 82 03/01/18 13:00 82 13 73/46 (55) 100 03/01/18 12:45 80 03/01/18 12:45 80 17 104/64 (77) 100 03/01/18 12:30 80 03/01/18 12:30 80 17 114/69 (84) 100 03/01/18 12:00 83 26 105/59 (74) 100 03/01/18 12:00 83 03/01/18 11:31 85 03/01/18 11:00 83 03/01/18 10:34 85 03/01/18 10:30 84 03/01/18 10:00 84 03/01/18 09:41 100 Nasal Cannula 2.00 03/01/18 09:30 82 03/01/18 09:00 88 03/01/18 08:30 91 03/01/18 08:25 91 03/01/18 08:00 97.6 03/01/18 08:00 86 03/01/18 07:00 100 Nasal Cannula 2.00 03/01/18 06:00 92 03/01/18 04:00 82 03/01/18 04:00 98.4 82 14 81/46 (58) 100 03/01/18 02:00 82 03/01/18 00:00 98.2 85 19 91/58 (69) 100 03/01/18 00:00 85 02/28/18 22:00 92 02/28/18 20:23 100 Nasal Cannula 2.00 02/28/18 20:00 79 02/28/18 20:00 97.4 79 17 86/52 (63) 100 02/28/18 19:00 97 Nasal Cannula 2.00 02/28/18 18:00 80 02/28/18 17:00 98 Nasal Cannula 2.00 -: 02/28/18 0715 02/28/18 0715 Microbiology 02/28/18 Gram Stain - Final, Resulted 02/28/18 Wound Culture - Preliminary, Resulted S. Aureus Mrsa Assessment/Plan Problem List: (1) ESRD on hemodialysis ICD Codes: N18.6 - End stage renal disease; Z99.2 - Dependence on renal dialysis Status: Chronic Plan: Patient is on hemodialysis Sunday, Sunday and Sunday On midodrine to 20 mg 3 times daily Monitor blood pressure Cautiously remove fluid during dialysis patient just finished dialysis 2.5 L removed given albumin blood pressure was low but improved at the end (2) H/O parathyroidectomy ICD Codes: E89.2 - Postprocedural hypoparathyroidism Status: Chronic Plan: Patient is on calcium supplement (3) Hypotension ICD Codes: I95.9 - Hypotension, unspecified Status: Acute Plan: Continue to monitor Frank Villagran MD Mar 01, 2018 16:32
--- NOTE | 2018-03-01 17:00 | PD.WCN.NOT ---
Wound Consult Description: Wound consult ordered by Matias DE LEON Communicated with: Ursula MUSA, Recommendation: 1. Turn patient every 2 hours for offloading and comfort. 2. Cleanse intra gluteal cleft with remedy soft cloth barrier wipes. 3. Apply thick layer of Calazime cream to intra gluteal cleft BID or as needed for incontinence. 4. Cleanse right lower extremity Achilles tendon with normal saline pat dry , Apply skin prep to periwound. 5. Apply thin layer of Calazime cream to newly epithelized tissue cover with foam dressing. change dressing every 3 days or as needed for dislodgement. 6. Please reconsult wound care if wounds worsen or treatment fails. Additional Information: Patient was seen today by quality analyst/technical writer for wound management.Patient alert and oriented x4 laying in bed currently receiving dialysis.Dressing removed from right lower extremity.Patient has been seen by quality analyst/technical writer in past for wound care .Right Achillis wound healing well 90% new epithelial tissue growth with 10% moist pink tissue .Wound cleansed with normal saline pat dry culture obtained.Calazime cream applied to periwound and covered with foam gentle boarder dressing signed and dated.Patient was able to reposition to left side with minimal assistance .Intra gluteal cleft cleansed with remedy soft cloth barrier wipes.Patient noted to have fissure located between scarum and coccyx area wound base dry pink tissue.Calazime cream applied in thick layer.Patient states she currently has to be transferred with a Letitia lift in which is a cradle sling verse a full sling so it pulls her bottom apart.Consult for PT for sling ordered.Patient had no further questions or concern upon writers departure. Lillian Mclean [facility] Mar 01, 2018 16:59
--- NOTE | 2018-03-01 18:37 | ECHRPT ---
Indication: HEART FAILURE CONCLUSIONS Normal left ventricular size. Possible mild concentric left ventricular hypertrophy. Mild mitral annular calcification. BP: 81 / 46 HR: 92 Rhythm: Sinus MEASUREMENTS (Male / Female) Normal Values Technical Quality:Very technically difficult study 2D ECHO LV Diastolic Diameter PLAX 3.9 cm 4.2 - 5.9 / 3.9 - 5.3 cm LV Systolic Diameter PLAX 2.8 cm IVS Diastolic Thickness 1.1 cm 0.6 - 1.0 / 0.6 - 0.9 cm LVPW Diastolic Thickness 1.1 cm 0.6 - 1.0 / 0.6 - 0.9 cm LV Relative Wall Thickness 0.6 RV Internal Dim ED PLAX 2.6 cm LVOT Diameter 2.1 cm Aortic Root Diameter 2.9 cm LA Systolic Diameter LX 3.0 cm 3.0 - 4.0 / 2.7 - 3.8 cm FINDINGS LEFT VENTRICLE Normal left ventricular size. Mild concentric left ventricular hypertrophy. The left ventricular systolic function is normal with an estimated ejection fraction in the range of 60-65%. RIGHT VENTRICLE Normal right ventricular size and systolic function. LEFT ATRIUM The left atrial size is normal. RIGHT ATRIUM The right atrial size is normal. ATRIAL SEPTUM The interatrial septum not well visualized. AORTA The aortic root and proximal ascending aorta are not well visualized. MITRAL VALVE Mild mitral annular calcification. AORTIC VALVE The aortic valve is not well visualized. TRICUSPID VALVE The tricuspid valve is not well visualized. PULMONARY VALVE The pulmonary valve is not well visualized. VESSELS The inferior vena cava was not well visualized. PERICARDIUM No pericardial effusion. Carter Springer MD (Electronically Signed) Final Date:01 March 2018 18:36
[2018-03-01] MEDS: NYSTATIN 100,000 U/GM PWD 15 GM BTL TOPICAL SCH (21:08)
[2018-03-01] MEDS: GABAPENTIN 300 MG CAP PO SCH (21:09)
[2018-03-01] MEDS: ATORVASTATIN 10 MG TAB PO SCH (21:09)
[2018-03-01] MEDS: traZODone HCL 100 MG TAB PO SCH (21:10)
[2018-03-02] VITALS (13 sets, daily range): BP systolic 90–146; BP diastolic 52–67; PULSE 73–97; RESP 16–27; TEMP 97.9–98.4; O2SAT 92–100
[2018-03-02] MEDS: CHLORHEXIDINE GLUCONATE 2 % 1 PACK (2 CLOTHS)(taper/protocol) TOPICAL SCH (04:00)
[2018-03-02] MEDS: CALCIUM CARBONATE 1.25 GM (CA 500 MG) TAB PO SCH ×3 (07:31→20:16)
[2018-03-02] MEDS: HEPARIN SODIUM - SQ 10,000 UNITS/ML VIAL SQ SCH ×3 (07:32→21:10)
[2018-03-02] MEDS: LEVOTHYROXINE SODIUM 50 MCG TAB PO SCH (07:32)
--- NOTE | 2018-03-02 07:42 | HHI.PR ---
Subjective Remarks in no acute distress. no dizziness today. has some pain to the left arm. BP overall improved. d/w the RN at the bedside. Objective Vitals Vital Signs Date Time Temp Pulse Resp B/P (MAP) Pulse Ox O2 Delivery O2 Flow Rate FiO2 03/02/18 06:00 82 03/02/18 04:00 97.9 73 16 100/56 (71) 100 03/02/18 04:00 73 03/02/18 02:00 75 03/02/18 00:00 98.1 80 17 111/56 (74) 100 03/02/18 00:00 80 03/01/18 22:00 78 03/01/18 20:00 82 03/01/18 20:00 98.6 82 27 125/75 (92) 100 03/01/18 19:00 100 Nasal Cannula 2.00 03/01/18 17:30 82 16 112/66 (81) 100 03/01/18 17:30 82 03/01/18 17:00 86 03/01/18 17:00 86 16 110/65 (80) 100 03/01/18 16:30 88 17 118/70 (86) 100 03/01/18 16:30 88 03/01/18 16:00 92 25 125/73 (90) 100 03/01/18 16:00 92 03/01/18 15:30 86 03/01/18 15:00 88 18 115/68 (84) 100 03/01/18 15:00 88 03/01/18 14:45 90 17 112/67 (82) 100 03/01/18 14:45 90 03/01/18 14:30 87 18 109/65 (80) 100 03/01/18 14:30 87 03/01/18 14:15 89 20 106/65 (79) 100 03/01/18 14:15 89 03/01/18 14:00 86 03/01/18 14:00 86 22 101/61 (74) 100 03/01/18 13:45 85 16 122/59 (80) 100 03/01/18 13:45 85 03/01/18 13:30 81 15 112/59 (76) 100 03/01/18 13:30 81 03/01/18 13:15 84 03/01/18 13:15 84 22 80/50 (60) 100 03/01/18 13:00 82 03/01/18 13:00 82 13 73/46 (55) 100 03/01/18 12:45 80 03/01/18 12:45 80 17 104/64 (77) 100 03/01/18 12:30 80 03/01/18 12:30 80 17 114/69 (84) 100 03/01/18 12:00 83 26 105/59 (74) 100 03/01/18 12:00 83 03/01/18 11:31 85 03/01/18 11:00 83 03/01/18 10:34 85 03/01/18 10:30 84 03/01/18 10:00 84 03/01/18 09:41 100 Nasal Cannula 2.00 03/01/18 09:30 82 03/01/18 09:00 88 03/01/18 08:30 91 03/01/18 08:25 91 03/01/18 08:00 97.6 03/01/18 08:00 86 I/O 03/01/18 03/01/18 03/01/18 03/02/18 03/02/18 03/02/18 07:00 15:00 23:00 07:00 15:00 23:00 Intake Total 370 ml 450 ml 240 ml Output Total 2500 ml Balance 370 ml -2050 ml 240 ml Intake Oral 120 ml 450 ml 240 ml IV Total 250 ml Output Hemodialysis 2500 ml # Bowel Movements 0 0 Result Diagram: 02/28/18 0715 02/28/18 0715 Imaging Last Impressions Chest X-Ray 02/27/18 0000 Signed Impressions: CONCLUSION: No acute cardiopulmonary findings. 2 stents in the left axillary vein and a hero catheter for venous access overly ing the left chest Abdomen/Pelvis CT 02/27/18 0000 Signed Impressions: CONCLUSION: 1. Fat-containing umbilical hernia. 2. Status post cholecystectomy. 3. Atrophic kidneys 4. Left renal cyst. 5. 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 6. Patchy sclerotic changes of the bone marrow likely diffuse infiltrative pro cess. Objective Remarks GENERAL: This is a well-nourished, well-developed patient, in no apparent distress. CARDIOVASCULAR: Regular rate and regular rhythm without murmurs, gallops, or rubs. RESPIRATORY: Clear to auscultation. Breath sounds equal bilaterally. No wheezes , rales, or rhonchi. GASTROINTESTINAL: Abdomen soft, non-tender, nondistended. Normal, active bowel sounds MUSCULOSKELETAL: Extremities without clubbing, cyanosis, or edema. NEURO: Alert & Oriented x4 to person, place, time, situation. Moves all ext x4 Procedures None Medications and IVs Inpatient Medications Acetaminophen (Tylenol) 650 mg UNSCH PRN PO for headach, pain, temp > 101F; Start 02/28/18 at 15:30 Acetaminophen/ Hydrocodone Bitart ([place] 5-325 Mg) 1 tab Q4H PRN PO PAIN GREATER THAN 5; Start 02/27/18 at 21:00 Albumin Human 100 ml @ 60 mls/hr UNSCH PRN IV WITH DIALYSIS; Start 02/28/18 at 15:30 Albuterol Sulfate (Proair Hfa Inh) 2 puff BID INH Last administered on at 21:00; Start 02/27/18 at 21:00 Aspirin (Ecotrin Ec) 81 mg DAILY PO Last administered on 03/01/18at 08:24; Start 02/28/18 at 09:00 Atorvastatin Calcium (Lipitor) 10 mg HS PO Last administered on 03/01/18at 21:09 ; Start 02/27/18 at 21:00 Bisacodyl (Dulcolax Supp) 10 mg DAILY PRN RECTAL SEVERE CONSITIPATION; Start at 21:00 Bupropion HCl (Wellbutrin Sr) 150 mg BID PO Last administered on 03/01/18at 21: 09; Start 02/28/18 at 09:00 Bupropion HCl (Wellbutrin Xl 24 Hr) 150 mg BID PO ; Start 02/28/18 at 09:00; Stop 02/28/18 at 09:00; Status DC Calcium Acetate (Phoslo) 2,668 mg TID PO Last administered on 03/01/18at 17:41; Start 02/28/18 at 09:00 Calcium Carbonate (Oscal) 2,000 mg Q8HR PO Last administered on 03/01/18at 21:09 ; Start 02/27/18 at 22:00 Calcium Chloride 1 gm/Sodium Chloride 110 ml @ 110 mls/hr ONCE ONCE IV Last administered on 02/27/18at 19:48; Start 02/27/18 at 18:00; Stop 02/27/18 at 18:59 ; Status DC Chlorhexidine Gluconate (Chlorhexidine 2% Cloth) 3 pack UNSCH PRN TOPICAL HYGIENIC CARE; Start 03/01/18 at 03:00; Stop 03/06/18 at 02:47 Clonidine (Catapres) 0.1 mg UNSCH PRN PO for BP > 180/100 X 2 readings; Start 02/28/18 at 15:30 Dextrose (D50w (Vial) Inj) 50 ml UNSCH PRN IV PUSH HYPOGLYCEMIA-SEE COMMENTS; Start 02/27/18 at 21:00 Diphenhydramine HCl (Benadryl) 25 mg UNSCH PRN PO for hives/itching/anaphylaxis ; Start 02/28/18 at 15:30 Gabapentin (Neurontin) 300 mg HS PO Last administered on 03/01/18at 21:09; Start 02/27/18 at 21:00 Gelatin (Gelfoam 12 Mm/7 Mm Top) 1 foam UNSCH PRN TOP SEE LABEL COMMENTS; Start 02/28/18 at 15:30 Gentamicin Sulfate (Gentamicin Inj) 20 mg UNSCH PRN OTHER WITH DIALYSIS; Start 02/28/18 at 15:30 Glucagon (Glucagon Inj) 1 mg UNSCH PRN OTHER HYPOGLYCEMIA-SEE COMMENTS; Start 02/27/18 at 21:00 Heparin Sodium (Porcine) (Heparin Inj) UNSCH PRN .XX WITH DIALYSIS; Start at 15:30 Insulin Aspart (NovoLOG SUPPLEMENTAL SCALE) 1 ACHS SLIDING SCALE SQ ; Start at 21:00 Lactulose (Lactulose Liq) 30 ml DAILY PRN PO SEVERE CONSITIPATION; Start at 21:00 Levothyroxine Sodium (Synthroid) 50 mcg DAILY@0700 PO Last administered on 03/01at 06:52; Start 02/28/18 at 07:00 Magnesium Hydroxide (Milk Of Magnesia Liq) 30 ml Q12H PRN PO Mild constipation ; Start 02/27/18 at 21:00 Mannitol (Mannitol Inj) 12.5 gm UNSCH PRN IV WITH DIALYSIS; Start 02/28/18 at 15:30 Midodrine (Proamatine) 20 mg TID PO Last administered on 03/01/18at 17:41; Start 02/28/18 at 18:00 Miscellaneous Information ([facility] Nursing Information) Patient in critical care unit? Ass... Q361D .XX ; Start 03/01/18 at 03:00 Naloxone HCl (Narcan Inj) 0.4 mg UNSCH PRN IV PUSH SEE LABEL COMMENTS; Start at 21:00 Nitroglycerin (Nitrostat Sl) 0.4 mg UNSCH PRN SL CHEST PAIN; Start 02/28/18 at 15:30 Nystatin (Mycostatin Powder) 1 applic Q12HR TOPICAL Last administered on at 21:08; Start 03/01/18 at 21:00 Ondansetron HCl (Zofran Odt) 4 mg Q6H PRN PO NAUSEA OR VOMITING; Start at 21:00 Ondansetron HCl (Zofran Inj) 4 mg UNSCH PRN IV PUSH WITH DIALYSIS; Start at 15:30 Pneumococcal Polyvalent Vaccine (Pneumovax-23 Inj) 25 mcg ONCE ONCE IM ; Start 02/28/18 at 09:00; Stop 02/28/18 at 09:01; Status DC Senna/Docusate Sodium (Yelena-Colace) 1 tab BID PO Last administered on at 21:09; Start 02/27/18 at 21:00 Sennosides (Senokot) 17.2 mg Q12H PRN PO Moderate constipation; Start 02/27/18 at 21:00 Sodium Chloride 250 ml @ 250 mls/hr BOLUS ONCE IV Last administered on at 01:31; Start 03/01/18 at 01:30; Stop 03/01/18 at 02:29; Status DC Sodium Chloride (NS Flush) 5 ml UNSCH PRN IV FLUSH WITH DIALYSIS; Start at 15:30 Tiotropium [place] (Spiriva Inh) 18 mcg DAILY INH Last administered on at 08:25; Start 02/28/18 at 09:00 Trazodone HCl (Desyrel) 100 mg HS PO Last administered on 03/01/18at 21:10; Start 02/27/18 at 21:00 A/P Assessment and Plan A/P Hypotension, chronic- overall improved and now asymptomatic. Patient states her systolic blood pressure runs around 90's. Dysautonomia No evidence of sepsis received bolus fluid -Continue on midodrine TID ; the dose was increased to 20 mg tid. - 2D echo with EF 60% -fall precautions -Cautious use of IV fluids given end-stage renal disease End-stage renal disease on dialysis MWF -Nephrology consulted, appreciate assistance -Continue on PhosLo Diabetes mellitus -Continue on Accu-Cheks and sliding-scale insulin -Monitor blood glucose Hyperlipidemia/CHF/COPD/hypothyroidism -Continue home medications -Monitor for signs of fluid overload Right ankle wound with foul-smelling drainage -Consulted wound care, appreciate assistance Hx of c diff infection 12/26 History of ischemic bowel Patient denies any GI complaints -Continue to monitor Anxiety/depression/neuropathy -Continue home medications Painful right breast mass Does not appear to be infected May be fibrous change -Follow-up as outpatient with primary care provider -Discussed obtaining mammogram as outpatient DVT prophylaxis -Heparin subcu will transfer to telemetry this afternoon if BP remains stable. PT consulted. Discharge Planning dc planning in one-two days if stable- pending PT evaluation and BP trend. Alex Bernal MD Mar 02, 2018 07:42
[2018-03-02] MEDS: INSULIN ASPART SUPPLEMENTAL SCALE SQ SCH ×4 (08:00→20:16)
[2018-03-02] MEDS: ALBUTEROL SULFATE 90 MCG/ACT HFA 8 GM INHALER INH SCH ×2 (09:11→20:17)
[2018-03-02] MEDS: DOCUSATE SODIUM 50 MG/SENNA 8.6 MG TAB PO SCH ×2 (09:12→20:16)
[2018-03-02] MEDS: ASPIRIN EC 81 MG TABEC PO SCH (09:12)
[2018-03-02] MEDS: TIOTROPIUM BROMIDE 18 MCG INH INH SCH (09:12)
[2018-03-02] MEDS: SODIUM CHLORIDE 0.9% FLUSH 10 ML FLUSH IV FLUSH PRN (09:12)
[2018-03-02] MEDS: CALCIUM ACETATE 667 MG CAP PO SCH ×3 (09:12→17:47)
[2018-03-02] MEDS: SODIUM CHLORIDE 0.9% FLUSH 10 ML FLUSH IV FLUSH SCH ×2 (09:12→20:19)
[2018-03-02] MEDS: buPROPion HCL 150 MG SUSTAINED RELEASE TAB PO SCH ×2 (09:13→20:16)
[2018-03-02] MEDS: MIDODRINE 5 MG TAB PO SCH ×3 (09:13→17:47)
[2018-03-02] MEDS: NYSTATIN 100,000 U/GM PWD 15 GM BTL TOPICAL SCH ×2 (09:13→20:19)
--- NOTE | 2018-03-02 11:39 | HHI.NPPN ---
Subjective Interval History No acute complaints Objective Data Data Vital Signs Date Time Temp Pulse Resp B/P (MAP) Pulse Ox O2 Delivery O2 Flow Rate FiO2 03/02/18 10:00 97 03/02/18 10:00 97 27 90/53 (65) 100 03/02/18 09:00 77 16 98/55 (69) 100 03/02/18 08:00 79 03/02/18 08:00 98.0 79 17 93/52 (66) 99 03/02/18 07:00 79 17 100/61 (74) 100 03/02/18 07:00 100 Nasal Cannula 2.00 03/02/18 06:00 82 03/02/18 04:00 97.9 73 16 100/56 (71) 100 03/02/18 04:00 73 03/02/18 02:00 75 03/02/18 00:00 98.1 80 17 111/56 (74) 100 03/02/18 00:00 80 03/01/18 22:00 78 03/01/18 20:00 82 03/01/18 20:00 98.6 82 27 125/75 (92) 100 03/01/18 19:00 100 Nasal Cannula 2.00 03/01/18 17:30 82 16 112/66 (81) 100 03/01/18 17:30 82 03/01/18 17:00 86 03/01/18 17:00 86 16 110/65 (80) 100 03/01/18 16:30 88 17 118/70 (86) 100 03/01/18 16:30 88 03/01/18 16:00 92 25 125/73 (90) 100 03/01/18 16:00 92 03/01/18 15:30 86 03/01/18 15:00 88 18 115/68 (84) 100 03/01/18 15:00 88 03/01/18 14:45 90 17 112/67 (82) 100 03/01/18 14:45 90 03/01/18 14:30 87 18 109/65 (80) 100 03/01/18 14:30 87 03/01/18 14:15 89 20 106/65 (79) 100 03/01/18 14:15 89 03/01/18 14:00 86 03/01/18 14:00 86 22 101/61 (74) 100 03/01/18 13:45 85 16 122/59 (80) 100 03/01/18 13:45 85 03/01/18 13:30 81 15 112/59 (76) 100 03/01/18 13:30 81 03/01/18 13:15 84 03/01/18 13:15 84 22 80/50 (60) 100 03/01/18 13:00 82 03/01/18 13:00 82 13 73/46 (55) 100 03/01/18 12:45 80 03/01/18 12:45 80 17 104/64 (77) 100 03/01/18 12:30 80 03/01/18 12:30 80 17 114/69 (84) 100 03/01/18 12:00 83 26 105/59 (74) 100 03/01/18 12:00 83 -: 02/28/18 0715 02/28/18 0715 Physical Exam General Appearance: Well Developed, Well Nourished, No Acute Distress Throat Throat Exam: Oral Mucosa [place] & Moist Neck Neck Exam: Neck Supple Pulmonary Resp Exam: Clear Bilaterally, Diminished Breath Sounds Cardiology CV Exam: Regular, Normal Sinus Rhythm Gastrointestinal/Abdomen GI Exam: Soft, Non-Tender, Bowel Sounds Present Integumentary Skin Exam: Warm, Dry Extremeties Extremities Exam: Trace Edema Neurologic Neuro Exam: Alert, Awake, Oriented, Speech Clear Assessment/Plan Problem List: (1) ESRD on hemodialysis ICD Codes: N18.6 - End stage renal disease; Z99.2 - Dependence on renal dialysis Status: Chronic Plan: Patient is on hemodialysis Sunday, Sunday and Sunday On midodrine to 20 mg 3 times daily Monitor blood pressure -stable with chronic hypotension. HD done yesterday, plan next HD Sunday. (2) H/O parathyroidectomy ICD Codes: E89.2 - Postprocedural hypoparathyroidism Status: Chronic Plan: Patient is on calcium supplement (3) Hypotension ICD Codes: I95.9 - Hypotension, unspecified Status: Acute Plan: Continue to monitor Tahir Blas MD Mar 02, 2018 11:39
[2018-03-02] MEDS: GABAPENTIN 300 MG CAP PO SCH (20:16)
[2018-03-02] MEDS: ATORVASTATIN 10 MG TAB PO SCH (20:16)
[2018-03-02] MEDS: traZODone HCL 100 MG TAB PO SCH (20:16)
[2018-03-03] VITALS (16 sets, daily range): BP systolic 77–155; BP diastolic 49–84; PULSE 67–81; RESP 14–26; TEMP 97.6–98.8; O2SAT 93–100
[2018-03-03] MEDS: ACETAMINOPHEN/HYDROcodone 325 MG/5 MG TAB PO PRN ×2 (00:59→20:10)
[2018-03-03] MEDS: CHLORHEXIDINE GLUCONATE 2 % 1 PACK (2 CLOTHS)(taper/protocol) TOPICAL SCH (04:00)
[2018-03-03] MEDS: HEPARIN SODIUM - SQ 10,000 UNITS/ML VIAL SQ SCH ×3 (05:03→21:13)
[2018-03-03] MEDS: CALCIUM CARBONATE 1.25 GM (CA 500 MG) TAB PO SCH ×3 (05:03→21:13)
[2018-03-03] MEDS: LEVOTHYROXINE SODIUM 50 MCG TAB PO SCH (05:03)
[2018-03-03] MEDS ORDERED: MIDODRINE 5 MG TAB PO ONE (06:30)
[2018-03-03] MEDS: INSULIN ASPART SUPPLEMENTAL SCALE SQ SCH ×4 (08:00→20:12)
--- NOTE | 2018-03-03 08:05 | HHI.PR ---
Subjective Remarks in no acute distress. feels slightly dizzy. BP trend noted. received an extra dose of Midodrine earlier. d/w the RN. Objective Vitals Vital Signs Date Time Temp Pulse Resp B/P (MAP) Pulse Ox O2 Delivery O2 Flow Rate FiO2 03/03/18 04:00 98.8 75 17 85/52 (63) 100 03/03/18 04:00 75 03/03/18 01:59 16 03/03/18 00:00 98.5 76 24 148/69 (95) 100 03/03/18 00:00 76 03/02/18 20:00 98.4 74 17 146/67 (93) 100 03/02/18 20:00 74 03/02/18 19:00 100 Nasal Cannula 2.00 03/02/18 16:00 74 03/02/18 16:00 98.1 74 20 127/59 (81) 100 03/02/18 12:00 98.3 78 24 108/58 (75) 92 03/02/18 12:00 78 03/02/18 11:00 84 22 98/52 (67) 97 03/02/18 10:00 97 03/02/18 10:00 97 27 90/53 (65) 100 03/02/18 09:00 77 16 98/55 (69) 100 I/O 03/02/18 03/02/18 03/02/18 03/03/18 03/03/18 03/03/18 07:00 15:00 23:00 07:00 15:00 23:00 Intake Total 240 ml 750 ml 300 ml Output Total 0 ml Balance 240 ml 750 ml 300 ml Intake Oral 240 ml 750 ml 300 ml Output Urine Total 0 ml # Bowel Movements 0 1 0 Result Diagram: 02/28/1815 02/28/18 0715 Imaging Last Impressions Chest X-Ray 02/27/18 0000 Signed Impressions: CONCLUSION: No acute cardiopulmonary findings. 2 stents in the left axillary vein and a hero catheter for venous access overly ing the left chest Abdomen/Pelvis CT 02/27/18 0000 Signed Impressions: CONCLUSION: 1. Fat-containing umbilical hernia. 2. Status post cholecystectomy. 3. Atrophic kidneys 4. Left renal cyst. 5. 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 6. Patchy sclerotic changes of the bone marrow likely diffuse infiltrative pro cess. Objective Remarks GENERAL: This is a well-nourished, well-developed patient, in no apparent distress. CARDIOVASCULAR: Regular rate and regular rhythm without murmurs, gallops, or rubs. RESPIRATORY: Clear to auscultation. Breath sounds equal bilaterally. No wheezes , rales, or rhonchi. GASTROINTESTINAL: Abdomen soft, non-tender, nondistended. Normal, active bowel sounds MUSCULOSKELETAL: Extremities without clubbing, cyanosis, or edema. NEURO: Alert & Oriented x4 to person, place, time, situation. Moves all ext x4 Procedures None Medications and IVs Inpatient Medications Acetaminophen (Tylenol) 650 mg UNSCH PRN PO for headach, pain, temp > 101F; Start 02/28/18 at 15:30 Acetaminophen/ Hydrocodone Bitart ([place] 5-325 Mg) 1 tab Q4H PRN PO PAIN GREATER THAN 5 Last administered on 03/03/18at 00:59; Start 02/27/18 at 21:00 Albumin Human 100 ml @ 60 mls/hr UNSCH PRN IV WITH DIALYSIS; Start 02/28/18 at 15:30 Albuterol Sulfate (Proair Hfa Inh) 2 puff BID INH Last administered on at 20:17; Start 02/27/18 at 21:00 Aspirin (Ecotrin Ec) 81 mg DAILY PO Last administered on 03/02/18at 09:12; Start 02/28/18 at 09:00 Atorvastatin Calcium (Lipitor) 10 mg HS PO Last administered on 03/02/18at 20:16 ; Start 02/27/18 at 21:00 Bisacodyl (Dulcolax Supp) 10 mg DAILY PRN RECTAL SEVERE CONSITIPATION; Start at 21:00 Bupropion HCl (Wellbutrin Sr) 150 mg BID PO Last administered on 03/02/18at 20: 16; Start 02/28/18 at 09:00 Bupropion HCl (Wellbutrin Xl 24 Hr) 150 mg BID PO ; Start 02/28/18 at 09:00; Stop 02/28/18 at 09:00; Status DC Calcium Acetate (Phoslo) 2,668 mg TID PO Last administered on 03/02/18at 17:47; Start 02/28/18 at 09:00 Calcium Carbonate (Oscal) 2,000 mg Q8HR PO Last administered on 03/03/18at 05:03 ; Start 02/27/18 at 22:00 Calcium Chloride 1 gm/Sodium Chloride 110 ml @ 110 mls/hr ONCE ONCE IV Last administered on 02/27/18at 19:48; Start 02/27/18 at 18:00; Stop 02/27/18 at 18:59 ; Status DC Chlorhexidine Gluconate (Chlorhexidine 2% Cloth) 3 pack UNSCH PRN TOPICAL HYGIENIC CARE; Start 03/01/18 at 03:00; Stop 03/06/18 at 02:47 Clonidine (Catapres) 0.1 mg UNSCH PRN PO for BP > 180/100 X 2 readings; Start 02/28/18 at 15:30 Dextrose (D50w (Vial) Inj) 50 ml UNSCH PRN IV PUSH HYPOGLYCEMIA-SEE COMMENTS; Start 02/27/18 at 21:00 Diphenhydramine HCl (Benadryl) 25 mg UNSCH PRN PO for hives/itching/anaphylaxis ; Start 02/28/18 at 15:30 Gabapentin (Neurontin) 300 mg HS PO Last administered on 03/02/18at 20:16; Start 02/27/18 at 21:00 Gelatin (Gelfoam 12 Mm/7 Mm Top) 1 foam UNSCH PRN TOP SEE LABEL COMMENTS; Start 02/28/18 at 15:30 Gentamicin Sulfate (Gentamicin Inj) 20 mg UNSCH PRN OTHER WITH DIALYSIS; Start 02/28/18 at 15:30 Glucagon (Glucagon Inj) 1 mg UNSCH PRN OTHER HYPOGLYCEMIA-SEE COMMENTS; Start 02/27/18 at 21:00 Heparin Sodium (Porcine) (Heparin Inj) UNSCH PRN .XX WITH DIALYSIS; Start at 15:30 Insulin Aspart (NovoLOG SUPPLEMENTAL SCALE) 1 ACHS SLIDING SCALE SQ ; Start at 21:00 Lactulose (Lactulose Liq) 30 ml DAILY PRN PO SEVERE CONSITIPATION; Start at 21:00 Levothyroxine Sodium (Synthroid) 50 mcg DAILY@0700 PO Last administered on 03/03at 05:03; Start 02/28/18 at 07:00 Magnesium Hydroxide (Milk Of Magnesia Liq) 30 ml Q12H PRN PO Mild constipation ; Start 02/27/18 at 21:00 Mannitol (Mannitol Inj) 12.5 gm UNSCH PRN IV WITH DIALYSIS; Start 02/28/18 at 15:30 Midodrine (Proamatine) 10 mg ONCE ONCE PO Last administered on 03/03/18at 06:27 ; Start 03/03/18 at 06:30; Stop 03/03/18 at 06:31; Status DC Miscellaneous Information ([facility] [place] Nursing Information) Patient in critical care unit? Ass... Q361D .XX ; Start 03/01/18 at 03:00 Naloxone HCl (Narcan Inj) 0.4 mg UNSCH PRN IV PUSH SEE LABEL COMMENTS; Start at 21:00 Nitroglycerin (Nitrostat Sl) 0.4 mg UNSCH PRN SL CHEST PAIN; Start 02/28/18 at 15:30 Nystatin (Mycostatin Powder) 1 applic Q12HR TOPICAL Last administered on at 20:19; Start 03/01/18 at 21:00 Ondansetron HCl (Zofran Odt) 4 mg Q6H PRN PO NAUSEA OR VOMITING; Start at 21:00 Ondansetron HCl (Zofran Inj) 4 mg UNSCH PRN IV PUSH WITH DIALYSIS; Start at 15:30 Pneumococcal Polyvalent Vaccine (Pneumovax-23 Inj) 25 mcg ONCE ONCE IM ; Start 02/28/18 at 09:00; Stop 02/28/18 at 09:01; Status DC Senna/Docusate Sodium (Yelena-Colace) 1 tab BID PO Last administered on at 20:16; Start 02/27/18 at 21:00 Sennosides (Senokot) 17.2 mg Q12H PRN PO Moderate constipation; Start 02/27/18 at 21:00 Sodium Chloride 250 ml @ 250 mls/hr BOLUS ONCE IV Last administered on at 01:31; Start 03/01/18 at 01:30; Stop 03/01/18 at 02:29; Status DC Sodium Chloride (NS Flush) 5 ml UNSCH PRN IV FLUSH WITH DIALYSIS; Start at 15:30 Tiotropium [place] (Spiriva Inh) 18 mcg DAILY INH Last administered on at 09:12; Start 02/28/18 at 09:00 Trazodone HCl (Desyrel) 100 mg HS PO Last administered on 03/02/18at 20:16; Start 02/27/18 at 21:00 A/P Assessment and Plan A/P Hypotension, chronic- Patient states her systolic blood pressure runs around 90's. Dysautonomia No evidence of sepsis received bolus fluid -Continue on midodrine TID ; the dose was increased to 20 mg tid; received an extra dose earlier. - 2D echo with EF 60% -fall precautions -Cautious use of IV fluids given end-stage renal disease End-stage renal disease on dialysis MWF -Nephrology consulted, appreciate assistance -Continue on PhosLo Diabetes mellitus -Continue on Accu-Cheks and sliding-scale insulin -Monitor blood glucose Hyperlipidemia/CHF/COPD/hypothyroidism -Continue home medications -Monitor for signs of fluid overload Right ankle wound - -Consulted wound care, appreciate assistance Hx of c diff infection 12/26 History of ischemic bowel Patient denies any GI complaints -Continue to monitor Anxiety/depression/neuropathy -Continue home medications Painful right breast mass Does not appear to be infected May be fibrous change -Follow-up as outpatient with primary care provider -Discussed obtaining mammogram as outpatient DVT prophylaxis -Heparin subcu hold the transfer for now- awaiting BP trend. PT consulted. Discharge Planning dc planning; rehab in one-two days if stable- pending the clinical course and BP trend. Alex Bernal MD Mar 03, 2018 08:05
[2018-03-03] MEDS: TIOTROPIUM BROMIDE 18 MCG INH INH SCH (08:50)
[2018-03-03] MEDS: CALCIUM ACETATE 667 MG CAP PO SCH ×3 (08:50→17:20)
[2018-03-03] MEDS: DOCUSATE SODIUM 50 MG/SENNA 8.6 MG TAB PO SCH ×2 (08:50→20:10)
[2018-03-03] MEDS: ALBUTEROL SULFATE 90 MCG/ACT HFA 8 GM INHALER INH SCH ×2 (08:50→20:11)
[2018-03-03] MEDS: ASPIRIN EC 81 MG TABEC PO SCH (08:50)
[2018-03-03] MEDS: SODIUM CHLORIDE 0.9% FLUSH 10 ML FLUSH IV FLUSH SCH ×2 (08:50→20:11)
[2018-03-03] MEDS: SODIUM CHLORIDE 0.9% FLUSH 10 ML FLUSH IV FLUSH PRN (08:50)
[2018-03-03] MEDS: MIDODRINE 5 MG TAB PO SCH ×4 (08:51→21:13)
[2018-03-03] MEDS: buPROPion HCL 150 MG SUSTAINED RELEASE TAB PO SCH ×2 (08:51→20:10)
[2018-03-03] MEDS: NYSTATIN 100,000 U/GM PWD 15 GM BTL TOPICAL SCH ×2 (08:51→20:12)
--- NOTE | 2018-03-03 10:59 | HHI.NPPN ---
Subjective Additional Remarks Some dizziness earlier Objective Data Data Vital Signs Date Time Temp Pulse Resp B/P (MAP) Pulse Ox O2 Delivery O2 Flow Rate FiO2 03/03/18 10:00 69 03/03/18 08:00 97.6 75 16 77/51 (60) 100 03/03/18 08:00 75 03/03/18 07:00 100 Nasal Cannula 2.00 03/03/18 04:00 98.8 75 17 85/52 (63) 100 03/03/18 04:00 75 03/03/18 01:59 16 03/03/18 00:00 98.5 76 24 148/69 (95) 100 03/03/18 00:00 76 03/02/18 20:00 98.4 74 17 146/67 (93) 100 03/02/18 20:00 74 03/02/18 19:00 100 Nasal Cannula 2.00 03/02/18 16:00 74 03/02/18 16:00 98.1 74 20 127/59 (81) 100 03/02/18 12:00 98.3 78 24 108/58 (75) 92 03/02/18 12:00 78 03/02/18 11:00 84 22 98/52 (67) 97 -: 02/28/18 0715 02/28/18 0715 Physical Exam General Appearance: Well Developed, Well Nourished, No Acute Distress Throat Throat Exam: Oral Mucosa [place] & Moist Neck Neck Exam: Neck Supple Pulmonary Resp Exam: Clear Bilaterally, Diminished Breath Sounds Cardiology CV Exam: Regular, Normal Sinus Rhythm Gastrointestinal/Abdomen GI Exam: Soft, Non-Tender, Bowel Sounds Present Integumentary Skin Exam: Warm, Dry Extremeties Extremities Exam: Trace Edema Neurologic Neuro Exam: Alert, Awake, Oriented, Speech Clear Assessment/Plan Problem List: (1) ESRD on hemodialysis ICD Codes: N18.6 - End stage renal disease; Z99.2 - Dependence on renal dialysis Status: Chronic Plan: Patient is on hemodialysis Sunday, Sunday and Sunday On midodrine to 20 mg 3 times daily. Given extra dose this morning. Continue to monitor - chronic hypotension. HD done Sunday, plan next HD Sunday. (2) H/O parathyroidectomy ICD Codes: E89.2 - Postprocedural hypoparathyroidism Status: Chronic Plan: Patient is on calcium supplement (3) Hypotension ICD Codes: I95.9 - Hypotension, unspecified Status: Acute Plan: Continue to monitor Tahir Blas MD Mar 03, 2018 10:59
[2018-03-03 11:41] LABS: CALCIUM 10.6 MG/DL (8.5-10.1); CREATININE 8.23 MG/DL (0.50-1.00); MAGNESIUM 2.1 MG/DL (1.5-2.5)
[2018-03-03] MEDS: ATORVASTATIN 10 MG TAB PO SCH (20:10)
[2018-03-03] MEDS: GABAPENTIN 300 MG CAP PO SCH (20:10)
[2018-03-03] MEDS: traZODone HCL 100 MG TAB PO SCH ×2 (20:11→21:00)
[2018-03-04] VITALS (19 sets, daily range): BP systolic 76–139; BP diastolic 46–72; PULSE 62–86; RESP 9–33; TEMP 97.6–98.7; O2SAT 91–100
[2018-03-04] MEDS: CHLORHEXIDINE GLUCONATE 2 % 1 PACK (2 CLOTHS)(taper/protocol) TOPICAL SCH (04:00)
[2018-03-04] MEDS: MIDODRINE 5 MG TAB PO SCH ×2 (05:48→13:13)
[2018-03-04] MEDS: CALCIUM CARBONATE 1.25 GM (CA 500 MG) TAB PO SCH ×2 (05:48→13:14)
[2018-03-04] MEDS: HEPARIN SODIUM - SQ 10,000 UNITS/ML VIAL SQ SCH ×2 (05:48→13:45)
[2018-03-04] MEDS: LEVOTHYROXINE SODIUM 50 MCG TAB PO SCH (05:48)
--- NOTE | 2018-03-04 07:51 | HHI.PR ---
Subjective Remarks in no acute distress. feels better today. no dizziness. BP trend noted. d/w the RN and no acute issues over night. Objective Vitals Vital Signs Date Time Temp Pulse Resp B/P (MAP) Pulse Ox O2 Delivery O2 Flow Rate FiO2 03/04/18 06:00 72 03/04/18 04:00 68 03/04/18 04:00 98.7 68 16 133/70 (91) 97 03/04/18 03:02 99 Nasal Cannula 2.00 03/04/18 02:00 62 03/04/18 00:00 98.0 71 14 96/52 (67) 100 03/04/18 00:00 71 03/03/18 22:00 70 03/03/18 20:00 98.3 69 16 155/84 (107) 98 03/03/18 20:00 69 03/03/18 19:18 98 03/03/18 19:00 97 Nasal Cannula 2.00 03/03/18 18:00 69 17 155/76 (102) 93 03/03/18 18:00 69 03/03/18 17:00 70 17 142/84 (103) 96 03/03/18 16:00 98.0 68 14 127/60 (82) 94 03/03/18 16:00 68 03/03/18 15:00 68 15 117/60 (79) 95 03/03/18 14:00 75 18 127/68 (87) 100 03/03/18 14:00 75 03/03/18 13:00 67 14 115/73 (87) 100 03/03/18 12:00 69 03/03/18 12:00 97.9 69 14 110/67 (81) 98 03/03/18 11:00 98 Nasal Cannula 2.00 03/03/18 11:00 72 16 104/49 (67) 99 03/03/18 10:00 69 14 121/58 (79) 100 03/03/18 10:00 69 03/03/18 09:00 81 26 88/52 (64) 98 03/03/18 08:00 97.6 75 16 77/51 (60) 100 03/03/18 08:00 75 I/O 03/03/18 03/03/18 03/03/18 03/04/18 03/04/18 03/04/18 07:00 15:00 23:00 07:00 15:00 23:00 Intake Total 300 ml 500 ml 200 ml Output Total 0 ml 0 ml Balance 300 ml 500 ml 200 ml Intake Oral 300 ml 500 ml 200 ml Output Urine Total 0 ml 0 ml # Bowel Movements 0 0 Result Diagram: 02/28/18 0715 03/03/18 1100 Objective Remarks GENERAL: This is a well-nourished, well-developed patient, in no apparent distress. CARDIOVASCULAR: Regular rate and regular rhythm without murmurs, gallops, or rubs. RESPIRATORY: Clear to auscultation. Breath sounds equal bilaterally. No wheezes , rales, or rhonchi. GASTROINTESTINAL: Abdomen soft, non-tender, nondistended. Normal, active bowel sounds MUSCULOSKELETAL: Extremities without clubbing, cyanosis, or edema. NEURO: Alert & Oriented x4 to person, place, time, situation. Moves all ext x4 Procedures None Medications and IVs Inpatient Medications Acetaminophen (Tylenol) 650 mg UNSCH PRN PO for headach, pain, temp > 101F Last administered on 03/03/18at 17:21; Start 02/28/18 at 15:30 Acetaminophen/ Hydrocodone Bitart ([place] 5-325 Mg) 1 tab Q4H PRN PO PAIN GREATER THAN 5 Last administered on 03/03/18at 20:10; Start 02/27/18 at 21:00 Albumin Human 100 ml @ 60 mls/hr UNSCH PRN IV WITH DIALYSIS; Start 02/28/18 at 15:30 Albuterol Sulfate (Proair Hfa Inh) 2 puff BID INH Last administered on at 20:11; Start 02/27/18 at 21:00 Aspirin (Ecotrin Ec) 81 mg DAILY PO Last administered on 03/03/18at 08:50; Start 02/28/18 at 09:00 Atorvastatin Calcium (Lipitor) 10 mg HS PO Last administered on 03/03/18at 20:10 ; Start 02/27/18 at 21:00 Bisacodyl (Dulcolax Supp) 10 mg DAILY PRN RECTAL SEVERE CONSITIPATION; Start at 21:00 Bupropion HCl (Wellbutrin Sr) 150 mg BID PO Last administered on 03/03/18at 20: 10; Start 02/28/18 at 09:00 Bupropion HCl (Wellbutrin Xl 24 Hr) 150 mg BID PO ; Start 02/28/18 at 09:00; Stop 02/28/18 at 09:00; Status DC Calcium Acetate (Phoslo) 2,668 mg TID PO Last administered on 03/03/18at 17:20; Start 02/28/18 at 09:00 Calcium Carbonate (Oscal) 2,000 mg Q8HR PO Last administered on 03/04/18at 05:48 ; Start 02/27/18 at 22:00 Calcium Chloride 1 gm/Sodium Chloride 110 ml @ 110 mls/hr ONCE ONCE IV Last administered on 02/27/18at 19:48; Start 02/27/18 at 18:00; Stop 02/27/18 at 18:59 ; Status DC Chlorhexidine Gluconate (Chlorhexidine 2% Cloth) 3 pack UNSCH PRN TOPICAL HYGIENIC CARE; Start 03/01/18 at 03:00; Stop 03/06/18 at 02:47 Clonidine (Catapres) 0.1 mg UNSCH PRN PO for BP > 180/100 X 2 readings; Start 02/28/18 at 15:30 Dextrose (D50w (Vial) Inj) 50 ml UNSCH PRN IV PUSH HYPOGLYCEMIA-SEE COMMENTS; Start 02/27/18 at 21:00 Diphenhydramine HCl (Benadryl) 25 mg UNSCH PRN PO for hives/itching/anaphylaxis ; Start 02/28/18 at 15:30 Gabapentin (Neurontin) 300 mg HS PO Last administered on 03/03/18at 20:10; Start 02/27/18 at 21:00 Gelatin (Gelfoam 12 Mm/7 Mm Top) 1 foam UNSCH PRN TOP SEE LABEL COMMENTS; Start 02/28/18 at 15:30 Gentamicin Sulfate (Gentamicin Inj) 20 mg UNSCH PRN OTHER WITH DIALYSIS; Start 02/28/18 at 15:30 Glucagon (Glucagon Inj) 1 mg UNSCH PRN OTHER HYPOGLYCEMIA-SEE COMMENTS; Start 02/27/18 at 21:00 Heparin Sodium (Porcine) (Heparin Inj) UNSCH PRN .XX WITH DIALYSIS; Start at 15:30 Insulin Aspart (NovoLOG SUPPLEMENTAL SCALE) 1 ACHS SLIDING SCALE SQ ; Start at 21:00 Lactulose (Lactulose Liq) 30 ml DAILY PRN PO SEVERE CONSITIPATION; Start at 21:00 Levothyroxine Sodium (Synthroid) 50 mcg DAILY@0700 PO Last administered on 03/04at 05:48; Start 02/28/18 at 07:00 Magnesium Hydroxide (Milk Of Magnesia Liq) 30 ml Q12H PRN PO Mild constipation ; Start 02/27/18 at 21:00 Mannitol (Mannitol Inj) 12.5 gm UNSCH PRN IV WITH DIALYSIS; Start 02/28/18 at 15:30 Midodrine (Proamatine) 20 mg Q8HR PO Last administered on 03/04/18at 05:48; Start 03/03/18 at 22:00 Miscellaneous Information ([facility] [place] Nursing Information) Patient in critical care unit? Ass... Q361D .XX ; Start 03/01/18 at 03:00 Naloxone HCl (Narcan Inj) 0.4 mg UNSCH PRN IV PUSH SEE LABEL COMMENTS; Start at 21:00 Nitroglycerin (Nitrostat Sl) 0.4 mg UNSCH PRN SL CHEST PAIN; Start 02/28/18 at 15:30 Nystatin (Mycostatin Powder) 1 applic Q12HR TOPICAL Last administered on at 20:12; Start 03/01/18 at 21:00 Ondansetron HCl (Zofran Odt) 4 mg Q6H PRN PO NAUSEA OR VOMITING; Start at 21:00 Ondansetron HCl (Zofran Inj) 4 mg UNSCH PRN IV PUSH WITH DIALYSIS Last administered on 03/03/18at 17:25; Start 02/28/18 at 15:30 Pneumococcal Polyvalent Vaccine (Pneumovax-23 Inj) 25 mcg ONCE ONCE IM ; Start 02/28/18 at 09:00; Stop 02/28/18 at 09:01; Status DC Senna/Docusate Sodium (Yelena-Colace) 1 tab BID PO Last administered on at 20:10; Start 02/27/18 at 21:00 Sennosides (Senokot) 17.2 mg Q12H PRN PO Moderate constipation; Start 02/27/18 at 21:00 Sodium Chloride 250 ml @ 250 mls/hr BOLUS ONCE IV Last administered on at 01:31; Start 03/01/18 at 01:30; Stop 03/01/18 at 02:29; Status DC Sodium Chloride (NS Flush) 5 ml UNSCH PRN IV FLUSH WITH DIALYSIS; Start at 15:30 Tiotropium [place] (Spiriva Inh) 18 mcg DAILY INH Last administered on at 08:50; Start 02/28/18 at 09:00 Trazodone HCl (Desyrel) 100 mg HS PO Last administered on 03/02/18at 20:16; Start 02/27/18 at 21:00 A/P Assessment and Plan A/P Hypotension, chronic- now has improved after midodrine was increased- Patient states her systolic blood pressure runs around 90's. Dysautonomia No evidence of sepsis -Continue on midodrine q8hrs ; the dose was increased to 20 mg tid; received an extra dose earlier. - 2D echo with EF 60% -fall precautions -Cautious use of IV fluids given end-stage renal disease End-stage renal disease on dialysis MWF -Nephrology consulted, appreciate assistance -Continue on PhosLo Diabetes mellitus -Continue on Accu-Cheks and sliding-scale insulin -Monitor blood glucose Hyperlipidemia/CHF/COPD/hypothyroidism -Continue home medications -Monitor for signs of fluid overload Right ankle wound - -Consulted wound care, appreciate assistance Hx of c diff infection 12/26 History of ischemic bowel Patient denies any GI complaints -Continue to monitor Anxiety/depression/neuropathy -Continue home medications Painful right breast mass Does not appear to be infected May be fibrous change -Follow-up as outpatient with primary care provider -Discussed obtaining mammogram as outpatient DVT prophylaxis -Heparin subcu ok to transfer to floor. PT consulted. Discharge Planning dc planning; rehab within the next 24 hrs if BP stable. see med list. f/u; pcp and nephrology. d/w the patient and RN. time spent 35 min. Alex Bernal MD Mar 04, 2018 07:51
[2018-03-04] MEDS ORDERED: HYDR-3516 PO (07:53)
[2018-03-04] MEDS ORDERED: MIDO5TAB PO (07:53)
--- NOTE | 2018-03-04 07:54 | HHI.DS ---
Discharge Summary Admission Date Feb 28, 2018 at 10:11 Discharge Date: Mar 04, 2018 Admitting Diagnosis HYPOTENSION (1) Hypotension ICD Code: I95.9 - Hypotension, unspecified Diagnosis: Principal Status: Acute Procedures None Brief History - From Admission 57-year-old female with a past medical history significant for diabetes, hyperlipidemia, CHF, COPD, end-stage renal disease on hemodialysis, hypotension , hypothyroidism, anxiety/depression and neuropathy presents to the emergency department for the evaluation of low blood pressure. The patient was at dialysis in her usual state of health when she states she felt lightheaded and dizzy and had a blood pressure in the 70s over 40s. The patient has a myriad of complaints including that she "aches all over." She also complains of a knot in her right breast and stomach cramps. She denies any chest pain or shortness of breath. No fever/chills. Crampy abdominal pain without nausea/ vomiting/diarrhea. No lateralizing signs/symptoms. CBC/BMP: 02/28/18 0715 03/03/18 1100 Significant Findings Laboratory Tests Test 03/03/18 11:00 Blood Urea Nitrogen 53 MG/DL (7-18) Creatinine 8.23 MG/DL (0.50-1.00) Calcium Level 10.6 MG/DL (8.5-10.1) Sodium Level 135 MEQ/L (136-145) Chloride Level 97 MEQ/L (98-107) Estimat Glomerular Filtration Rate 6 ML/MIN (>89) Imaging Last Impressions Chest X-Ray 02/27/18 0000 Signed Impressions: CONCLUSION: No acute cardiopulmonary findings. 2 stents in the left axillary vein and a hero catheter for venous access overly ing the left chest Abdomen/Pelvis CT 02/27/18 0000 Signed Impressions: CONCLUSION: 1. Fat-containing umbilical hernia. 2. Status post cholecystectomy. 3. Atrophic kidneys 4. Left renal cyst. 5. 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 6. Patchy sclerotic changes of the bone marrow likely diffuse infiltrative pro cess. PE at Discharge GENERAL: This is a well-nourished, well-developed patient, in no apparent distress. CARDIOVASCULAR: Regular rate and regular rhythm without murmurs, gallops, or rubs. RESPIRATORY: Clear to auscultation. Breath sounds equal bilaterally. No wheezes , rales, or rhonchi. GASTROINTESTINAL: Abdomen soft, non-tender, nondistended. Normal, active bowel sounds MUSCULOSKELETAL: Extremities without clubbing, cyanosis, or edema. NEURO: Alert & Oriented x4 to person, place, time, situation. Moves all ext x4 Hospital Course Hypotension, chronic- now has improved after midodrine was increased- Patient states her systolic blood pressure runs around 90's. Dysautonomia No evidence of sepsis -Continue on midodrine q8hrs ; the dose was increased to 20 mg tid; received an extra dose earlier. - 2D echo with EF 60% -fall precautions -Cautious use of IV fluids given end-stage renal disease End-stage renal disease on dialysis MWF -Nephrology consulted, appreciate assistance -Continue on PhosLo Diabetes mellitus -Continue on Accu-Cheks and sliding-scale insulin -Monitor blood glucose Hyperlipidemia/CHF/COPD/hypothyroidism -Continue home medications -Monitor for signs of fluid overload Right ankle wound - -Consulted wound care, appreciate assistance Hx of c diff infection 12/26 History of ischemic bowel Patient denies any GI complaints -Continue to monitor Anxiety/depression/neuropathy -Continue home medications Painful right breast mass Does not appear to be infected May be fibrous change -Follow-up as outpatient with primary care provider -Discussed obtaining mammogram as outpatient DVT prophylaxis -Heparin subcu ok to transfer to floor. PT consulted. Pt Condition on Discharge: Fair Discharge Disposition: Discharge to SNF Discharge Time: > 30 minutes Discharge Instructions DIET: Follow Instructions for: Diabetic Diet, Renal Failure Diet Activities you can perform: Regular-No Restrictions Alex Bernal MD Mar 04, 2018 07:54
[2018-03-04] MEDS ORDERED: SPIRCAP INH (08:00)
[2018-03-04] MEDS: INSULIN ASPART SUPPLEMENTAL SCALE SQ SCH ×2 (08:00→12:00)
[2018-03-04] MEDS: CALCIUM ACETATE 667 MG CAP PO SCH ×2 (08:30→13:14)
[2018-03-04] MEDS: DOCUSATE SODIUM 50 MG/SENNA 8.6 MG TAB PO SCH (08:30)
[2018-03-04] MEDS: buPROPion HCL 150 MG SUSTAINED RELEASE TAB PO SCH (08:31)
[2018-03-04] MEDS: ASPIRIN EC 81 MG TABEC PO SCH (08:31)
[2018-03-04] MEDS: NYSTATIN 100,000 U/GM PWD 15 GM BTL TOPICAL SCH (08:34)
[2018-03-04] MEDS: ALBUTEROL SULFATE 90 MCG/ACT HFA 8 GM INHALER INH SCH (08:34)
[2018-03-04] MEDS: TIOTROPIUM BROMIDE 18 MCG INH INH SCH (08:34)
[2018-03-04] MEDS: SODIUM CHLORIDE 0.9% FLUSH 10 ML FLUSH IV FLUSH SCH (09:00)
--- NOTE | 2018-03-04 13:37 | HHI.NPPN ---
Subjective Additional Remarks Doing well Objective Data Data 03/04/18 03/05/18 19:00 07:00 Output Total 2000 ml Balance -2000 ml Hemodialysis 2000 ml Vital Signs Date Time Temp Pulse Resp B/P (MAP) Pulse Ox O2 Delivery O2 Flow Rate FiO2 03/04/18 10:45 72 03/04/18 10:45 72 15 88/51 (63) 93 03/04/18 10:30 73 14 96/59 (71) 91 03/04/18 10:30 73 03/04/18 10:15 69 14 94/53 (67) 94 03/04/18 10:15 69 03/04/18 10:00 68 14 94/63 (73) 93 03/04/18 10:00 68 03/04/18 09:49 71 14 89/57 (68) 91 03/04/18 09:49 71 03/04/18 09:47 77 15 76/52 (60) 91 03/04/18 09:47 77 03/04/18 09:46 82 03/04/18 09:46 82 15 85/46 (59) 94 03/04/18 09:30 85 03/04/18 09:30 85 16 94/54 (67) 91 03/04/18 09:27 86 03/04/18 09:27 86 15 120/70 (87) 95 03/04/18 09:00 65 9 139/63 (88) 93 03/04/18 09:00 65 03/04/18 08:00 65 14 119/72 (88) 99 03/04/18 08:00 65 03/04/18 07:22 100 Nasal Cannula 2.00 03/04/18 07:00 100 Nasal Cannula 2.00 03/04/18 06:00 72 03/04/18 04:00 68 03/04/18 04:00 98.7 68 16 133/70 (91) 97 03/04/18 03:02 99 Nasal Cannula 2.00 03/04/18 02:00 62 03/04/18 00:00 98.0 71 14 96/52 (67) 100 03/04/18 00:00 71 03/03/18 22:00 70 03/03/18 20:00 98.3 69 16 155/84 (107) 98 03/03/18 20:00 69 03/03/18 19:18 98 6/24/18 19:00 97 Nasal Cannula 2.00 03/03/18 18:00 69 17 155/76 (102) 93 03/03/18 18:00 69 03/03/18 17:00 70 17 142/84 (103) 96 03/03/18 16:00 98.0 68 14 127/60 (82) 94 03/03/18 16:00 68 03/03/18 15:00 68 15 117/60 (79) 95 03/03/18 14:00 75 18 127/68 (87) 100 03/03/18 14:00 75 -: 02/28/18 0715 03/03/18 1100 Physical Exam General Appearance: Well Developed, Well Nourished, No Acute Distress Throat Throat Exam: Oral Mucosa [place] & Moist Neck Neck Exam: Neck Supple Pulmonary Resp Exam: Clear Bilaterally, Diminished Breath Sounds Cardiology CV Exam: Regular, Normal Sinus Rhythm Gastrointestinal/Abdomen GI Exam: Soft, Non-Tender, Bowel Sounds Present Integumentary Skin Exam: Warm, Dry Extremeties Extremities Exam: Trace Edema Neurologic Neuro Exam: Alert, Awake, Oriented, Speech Clear Assessment/Plan Problem List: (1) ESRD on hemodialysis ICD Codes: N18.6 - End stage renal disease; Z99.2 - Dependence on renal dialysis Status: Chronic Plan: Patient is on hemodialysis Sunday, Sunday and Sunday On midodrine to 20 mg 3 times daily. Given extra dose this morning. Continue to monitor - chronic hypotension. HD done today UF 2 L, plan next HD plan is to do dialysis on Sunday (2) H/O parathyroidectomy ICD Codes: E89.2 - Postprocedural hypoparathyroidism Status: Chronic Plan: Patient is on calcium supplement (3) Hypotension ICD Codes: I95.9 - Hypotension, unspecified Status: Acute Plan: Continue to monitor Frank Villagran MD Mar 04, 2018 13:37
== END 2018-03-04 15:20 | DRG 314 ==
LOC: NEPC 14:47 → NEDA 20:20 → NEPHCDU 22:06 → OBSVTOIN 02-28 10:11 → HIME 02-28 13:35
PROVIDERS: ADMIT Internal Medicine; ATTEND Internal Medicine
PROC: 5A1D70Z Performance of Urinary Filtration, Intermittent, Less than 6 Hours Per Day (ICD-10-PCS; principal; 2018-02-28)
DX: I95.89 Other hypotension (principal); N18.6 End stage renal disease; I13.2 Hypertensive heart and chronic kidney disease with heart failure and with stage 5 chronic kidney disease, or end stage renal disease; E11.22 Type 2 diabetes mellitus with diabetic chronic kidney disease; Z99.2 Dependence on renal dialysis; E78.5 Hyperlipidemia, unspecified; F32.9 Major depressive disorder, single episode, unspecified; F41.9 Anxiety disorder, unspecified; E11.40 Type 2 diabetes mellitus with diabetic neuropathy, unspecified; J44.9 Chronic obstructive pulmonary disease, unspecified; I50.9 Heart failure, unspecified; E03.9 Hypothyroidism, unspecified; E66.01 Morbid (severe) obesity due to excess calories; E89.2 Postprocedural hypoparathyroidism; G47.30 Sleep apnea, unspecified; G90.1 Familial dysautonomia [Riley-Day]; R10.9 Unspecified abdominal pain; K21.9 Gastro-esophageal reflux disease without esophagitis; K42.9 Umbilical hernia without obstruction or gangrene; N28.1 Cyst of kidney, acquired; S90.911A Unspecified superficial injury of right ankle, initial encounter; X58.XXXA Exposure to other specified factors, initial encounter; N63.10 Unspecified lump in the right breast, unspecified quadrant; Z87.891 Personal history of nicotine dependence; Z90.49 Acquired absence of other specified parts of digestive tract; Z90.710 Acquired absence of both cervix and uterus; Z99.3 Dependence on wheelchair; Z79.82 Long term (current) use of aspirin; Z79.4 Long term (current) use of insulin
CPT/HCPCS: 71045; 74176; 80048; 80053; 82948; 83735; 84443; 85025; 86403; 87070; 87077; 87147; 87186; 87205; 87641; 90935; 93005; 93306; 96365; 96374; 96375; 96376; G0378; J1644; J2405; J7030; J7050; P9047

== ENCOUNTER 2018-03-15 13:28 | Inpatient (IN) ==
[2018-03-15] MEDS ORDERED: Sodium Chlor 0.9% Inj 500 ML IV.SIG ONE (13:58)
--- NOTE | 2018-03-15 14:10 | ED ---
HPI General Chief complaint: Weakness Stated complaint: weakness/EVAC Time Seen by Provider: 03/15/18 13:49 Source: patient Mode of arrival: EMS Limitations: no limitations History of Present Illness HPI Narrative: 57-year-old female complains of abdominal pain, nausea, poor appetite, generalized malaise and weakness. Patient states that symptoms started 3 days ago. Patient states the pain and cramping pain localized to the upper abdomen. Patient denies any pain radiation. Patient states the pain has been intermittent. Patient states that she has nausea but no vomiting. Patient denies any diarrhea. Patient states that she has poor appetite from nausea. Patient states that the pain is worse with eating. Patient denies any headache. Patient denies any chest pain or shortness of breath. Patient denies any back pain. Patient denies any fever chills. Patient has history of end-stage renal disease on dialysis. Patient does not make any more urine. Patient also has history of COPD. Related Data Home Medications Medication Instructions Recorded Confirmed B complex-vitamin C-folic acid 1 tab PO DAILY 03/15/18 03/15/18 [Nephro-Devendra] aspirin 81 mg PO DAILY 03/15/18 03/15/18 atorvastatin [Lipitor] 10 mg PO HS 03/15/18 03/15/18 bupropion HCl 300 mg PO DAILY 03/15/18 03/15/18 calcium acetate 2,668 mg PO TIDWM 03/15/18 03/15/18 calcium carbonate 1,000 mg PO DAILY 03/15/18 03/15/18 calcium carbonate [Calcium 500] 2,000 mg PO Q8HR 03/15/18 03/15/18 cholecalciferol (vitamin D3) 5,000 unit PO DAILY 03/15/18 03/15/18 [Vitamin D3] collagenase clostridium histo. 1 applic TOPICAL DAILY 03/15/18 03/15/18 [Santyl] cyclobenzaprine 10 mg PO BID 03/15/18 03/15/18 gabapentin 300 mg PO HS 03/15/18 03/15/18 gelatin absorbable [Gelfoam] 1 applicatio TOPICAL DAILY PRN 03/15/18 03/15/18 insulin asp prt-insulin aspart 8 unit SUB-Q BID 03/15/18 03/15/18 [Novolog Mix 70-30 U-100 Insuln] ipratropium-albuterol [Combivent 2 puff INHALATION BID 03/15/18 03/15/18 Respimat] levothyroxine 50 mcg PO DAILY 03/15/18 03/15/18 midodrine 10 mg PO TID 03/15/18 03/15/18 pantoprazole [Protonix] 40 mg PO DAILY 03/15/18 03/15/18 silver sulfadiazine [Silvadene] 1 applic TOPICAL BID 03/15/18 03/15/18 trazodone 100 mg PO HS 03/15/18 03/15/18 Allergies Allergy/AdvReac Type Severity Reaction Status Date / Time levofloxacin Allergy Severe Anaphylaxis Verified 03/15/18 13:35 Review of Systems Except as stated in HPI: all other systems reviewed are negative PMFSH History History Provided By: Patient Medical History Medical History Hemodialysis access, AV graft (Acute) ESRD (end stage renal disease) on dialysis (Acute) HBP (high blood pressure) (Acute) Diabetes (Acute) Surgical History Surgical History Hx of appendectomy (Acute) Social History Social History Substance History: No History of Abuse Second Hand Smoke Exposure: Yes Smoking Status: Never smoker Tobacco Type: Cigarettes How Often Do You Have a Drink Containing Alcohol: Never Recent Travel in [place] within the Last 8 Weeks: No Recent Out of Country Travel within the Last 8 Weeks: No Exam Narrative Exam Narrative: GENERAL: Well-nourished, well-developed patient. SKIN: Focused skin assessment warm/dry. HEAD: Normocephalic. EYES: No scleral icterus. No injection or drainage. NECK: Supple, trachea midline. No JVD or lymphadenopathy. CARDIOVASCULAR: Regular rate and rhythm without murmurs, gallops, or rubs. RESPIRATORY: Breath sounds equal bilaterally. No accessory muscle use. GASTROINTESTINAL: Abdomen soft, nondistended. Patient has mild to moderate diffuse tenderness over the abdomen. No rebound tenderness. No mass. MUSCULOSKELETAL: No cyanosis, or edema. BACK: Nontender without obvious deformity. No CVA tenderness. Course Initial Documented Vital Signs Temperature 97.7 F 03/15/18 13:42 Pulse Rate 105 H 03/15/18 13:42 Respiratory Rate 18 03/15/18 13:42 Blood Pressure 141/96 H 03/15/18 13:42 Pulse Oximetry 97 03/15/18 13:42 Last Documented Vital Signs Temperature 97.5 F L 03/17/18 15:00 Pulse Rate 82 03/17/18 15:00 Respiratory Rate 16 03/17/18 15:00 Blood Pressure 94/54 L 03/17/18 15:00 Pulse Oximetry 95 03/17/18 15:00 Medical Decision Making MDM Narrative Medical decision making narrative: 57-year-old female with abdominal pain, severe nausea, poor appetite, generalized malaise and weakness. Patient has history of end-stage renal disease on dialysis. Normal saline solution 500 cc IV bolus. Zofran 4 mg ODT. Patients with elevated WBC. Unknown etiology. Patient was admitted in December of this year for C. difficile colitis and severe sepsis. CT scan abdomen pelvis at that time shows bowel ischemia. Patient was treated conservatively and discharged from the hospital. Normal saline solution 70 cc an hour. Zosyn 3.375 g IV given. Lab Data Result diagrams: 03/16/18 17:09 03/16/18 21:32 Lab Results 03/15/18 03/15/18 03/15/18 Range/Units 14:10 14:18 14:18 WBC 25.8 H (4.0-11.0) th/mm3 RBC 4.24 (4.00-5.30) mil/mm3 Hgb 12.9 (11.6-15.3) gm/dL Hct 39.3 (35.0-46.0) % MCV 92.7 (80.0-100.0) fL MCH 30.5 (27.0-34.0) pg MCHC 32.9 (32.0-36.0) % RDW 15.3 (11.6-17.2) % Plt Count 366 (150-450) th/mm3 MPV 7.6 (7.0-11.0) fL Neut % (Auto) 91.7 H (16.0-70.0) % Lymph % (Auto) 2.4 L (9.0-44.0) % Borden % (Auto) 5.4 (0.0-8.0) % Eos % (Auto) 0.4 (0.0-4.0) % Baso % (Auto) 0.1 (0.0-2.0) % Neut # (Auto) 23.7 H (1.8-7.7) th/mm3 Lymph # (Auto) 0.6 L (1.0-4.8) th/mm3 Borden # (Auto) 1.4 H (0.0-0.9) th/mm3 Eos # (Auto) 0.1 (0.0-0.4) th/mm3 Baso # (Auto) 0.0 (0.0-0.2) th/mm3 WBC Differential . Differential Comment Auto diff final PT 11.1 (9.8-11.6) sec INR 1.1 Ratio APTT 32.8 H (24.3-30.1) sec Puncture Site Patient Temperature O2 Saturation (90-100) % ABG pH (7.380-7.420) ABG pCO2 (38-42) mmHg ABG pO2 (61-120) mmHg ABG HCO3 (22-26) mmol/L ABG O2 Content (12.0-20.0) Vol % ABG Base Excess (-2-2) mmol/L ABG Methemoglobin (0-2) % Rohan Test Hemoglobin (12.0-16.0) G/DL Carboxyhemoglobin (0-4) % O2 Delivery Device Liter Flow L/M Inspired O2 % Critical Value Sodium 135 L (136-145) meq/L Potassium 3.6 (3.5-5.1) meq/L Chloride 95 L (98-107) meq/L Carbon Dioxide 25.2 (21.0-32.0) meq/L Anion Gap 15 (5-15) meq/L BUN 26 H (7-18) mg/dL Creatinine 4.49 H (0.50-1.00) mg/dL Estimated GFR 12 L (>89) mL/min POC Glucose (68-110) mg/dl Random Glucose 127 H (74-106) mg/dL Lactic Acid (0.4-2.0) mmol/L Calcium 10.0 (8.5-10.1) mg/dL Total Bilirubin 0.4 (0.2-1.0) mg/dL AST 13 L (15-37) U/L ALT 16 (10-53) U/L Alkaline Phosphatase 72 (45-117) U/L Total Protein 8.9 H (6.4-8.2) g/dL Albumin 3.4 (3.4-5.0) g/dL Lipase 95 (73-393) U/L 03/15/18 03/15/18 03/16/18 Range/Units 22:34 22:34 07:43 WBC 16.6 H (4.0-11.0) th/mm3 RBC 4.25 (4.00-5.30) mil/mm3 Hgb 12.2 (11.6-15.3) gm/dL Hct 39.4 (35.0-46.0) % MCV 92.6 (80.0-100.0) fL MCH 28.6 (27.0-34.0) pg MCHC 30.9 L (32.0-36.0) % RDW 15.3 (11.6-17.2) % Plt Count 360 (150-450) th/mm3 MPV 7.3 (7.0-11.0) fL Neut % (Auto) 88.8 H (16.0-70.0) % Lymph % (Auto) 4.4 L (9.0-44.0) % Borden % (Auto) 6.3 (0.0-8.0) % Eos % (Auto) 0.4 (0.0-4.0) % Baso % (Auto) 0.1 (0.0-2.0) % Neut # (Auto) 14.7 H (1.8-7.7) th/mm3 Lymph # (Auto) 0.7 L (1.0-4.8) th/mm3 Borden # (Auto) 1.0 H (0.0-0.9) th/mm3 Eos # (Auto) 0.1 (0.0-0.4) th/mm3 Baso # (Auto) 0.0 (0.0-0.2) th/mm3 WBC Differential . Differential Comment Auto diff final PT (9.8-11.6) sec INR Ratio APTT (24.3-30.1) sec Puncture Site Patient Temperature O2 Saturation (90-100) % ABG pH (7.380-7.420) ABG pCO2 (38-42) mmHg ABG pO2 (61-120) mmHg ABG HCO3 (22-26) mmol/L ABG O2 Content (12.0-20.0) Vol % ABG Base Excess (-2-2) mmol/L ABG Methemoglobin (0-2) % Rohan Test Hemoglobin (12.0-16.0) G/DL Carboxyhemoglobin (0-4) % O2 Delivery Device Liter Flow L/M Inspired O2 % Critical Value Sodium 136 (136-145) meq/L Potassium 3.8 (3.5-5.1) meq/L Chloride 97 L (98-107) meq/L Carbon Dioxide 25.6 (21.0-32.0) meq/L Anion Gap 13 (5-15) meq/L BUN 33 H (7-18) mg/dL Creatinine 5.37 H (0.50-1.00) mg/dL Estimated GFR 10 L (>89) mL/min POC Glucose 65 L (68-110) mg/dl Random Glucose 86 (74-106) mg/dL Lactic Acid (0.4-2.0) mmol/L Calcium 9.4 (8.5-10.1) mg/dL Total Bilirubin (0.2-1.0) mg/dL AST (15-37) U/L ALT (10-53) U/L Alkaline Phosphatase (45-117) U/L Total Protein (6.4-8.2) g/dL Albumin (3.4-5.0) g/dL Lipase (73-393) U/L 03/16/18 03/16/18 03/16/18 Range/Units 08:34 09:03 09:54 WBC (4.0-11.0) th/mm3 RBC (4.00-5.30) mil/mm3 Hgb (11.6-15.3) gm/dL Hct (35.0-46.0) % MCV (80.0-100.0) fL MCH (27.0-34.0) pg MCHC (32.0-36.0) % RDW (11.6-17.2) % Plt Count (150-450) th/mm3 MPV (7.0-11.0) fL Neut % (Auto) (16.0-70.0) % Lymph % (Auto) (9.0-44.0) % Borden % (Auto) (0.0-8.0) % Eos % (Auto) (0.0-4.0) % Baso % (Auto) (0.0-2.0) % Neut # (Auto) (1.8-7.7) th/mm3 Lymph # (Auto) (1.0-4.8) th/mm3 Borden # (Auto) (0.0-0.9) th/mm3 Eos # (Auto) (0.0-0.4) th/mm3 Baso # (Auto) (0.0-0.2) th/mm3 WBC Differential Differential Comment PT (9.8-11.6) sec INR Ratio APTT (24.3-30.1) sec Puncture Site Left radial Patient Temperature 98.6 O2 Saturation 93 (90-100) % ABG pH 7.31 L (7.380-7.420) ABG pCO2 52 H* (38-42) mmHg ABG pO2 88 (61-120) mmHg ABG HCO3 25 (22-26) mmol/L ABG O2 Content 15.8 (12.0-20.0) Vol % ABG Base Excess -0.3 (-2-2) mmol/L ABG Methemoglobin 1.6 (0-2) % Rohan Test Present Hemoglobin 12.0 (12.0-16.0) G/DL Carboxyhemoglobin 0.7 (0-4) % O2 Delivery Device Nasal cannula Liter Flow 3.00 L/M Inspired O2 32 % Critical Value Yes Sodium (136-145) meq/L Potassium (3.5-5.1) meq/L Chloride (98-107) meq/L Carbon Dioxide (21.0-32.0) meq/L Anion Gap (5-15) meq/L BUN (7-18) mg/dL Creatinine (0.50-1.00) mg/dL Estimated GFR (>89) mL/min POC Glucose 68 233 H (68-110) mg/dl Random Glucose (74-106) mg/dL Lactic Acid (0.4-2.0) mmol/L Calcium (8.5-10.1) mg/dL Total Bilirubin (0.2-1.0) mg/dL AST (15-37) U/L ALT (10-53) U/L Alkaline Phosphatase (45-117) U/L Total Protein (6.4-8.2) g/dL Albumin (3.4-5.0) g/dL Lipase (73-393) U/L 03/16/18 03/16/18 03/16/18 Range/Units 12:43 13:07 13:10 WBC (4.0-11.0) th/mm3 RBC (4.00-5.30) mil/mm3 Hgb (11.6-15.3) gm/dL Hct (35.0-46.0) % MCV (80.0-100.0) fL MCH (27.0-34.0) pg MCHC (32.0-36.0) % RDW (11.6-17.2) % Plt Count (150-450) th/mm3 MPV (7.0-11.0) fL Neut % (Auto) (16.0-70.0) % Lymph % (Auto) (9.0-44.0) % Borden % (Auto) (0.0-8.0) % Eos % (Auto) (0.0-4.0) % Baso % (Auto) (0.0-2.0) % Neut # (Auto) (1.8-7.7) th/mm3 Lymph # (Auto) (1.0-4.8) th/mm3 Borden # (Auto) (0.0-0.9) th/mm3 Eos # (Auto) (0.0-0.4) th/mm3 Baso # (Auto) (0.0-0.2) th/mm3 WBC Differential Differential Comment PT (9.8-11.6) sec INR Ratio APTT (24.3-30.1) sec Puncture Site Patient Temperature O2 Saturation (90-100) % ABG pH (7.380-7.420) ABG pCO2 (38-42) mmHg ABG pO2 (61-120) mmHg ABG HCO3 (22-26) mmol/L ABG O2 Content (12.0-20.0) Vol % ABG Base Excess (-2-2) mmol/L ABG Methemoglobin (0-2) % Rohan Test Hemoglobin (12.0-16.0) G/DL Carboxyhemoglobin (0-4) % O2 Delivery Device Liter Flow L/M Inspired O2 % Critical Value Sodium 133 L (136-145) meq/L Potassium 3.8 (3.5-5.1) meq/L Chloride 100 (98-107) meq/L Carbon Dioxide 19.5 L (21.0-32.0) meq/L Anion Gap 14 (5-15) meq/L BUN 38 H (7-18) mg/dL Creatinine 5.96 H (0.50-1.00) mg/dL Estimated GFR 9 L (>89) mL/min POC Glucose 78 99 (68-110) mg/dl Random Glucose 86 (74-106) mg/dL Lactic Acid (0.4-2.0) mmol/L Calcium 8.7 (8.5-10.1) mg/dL Total Bilirubin 0.3 (0.2-1.0) mg/dL AST 10 L (15-37) U/L ALT 15 (10-53) U/L Alkaline Phosphatase 64 (45-117) U/L Total Protein 8.6 H (6.4-8.2) g/dL Albumin 3.1 L (3.4-5.0) g/dL Lipase (73-393) U/L 03/16/18 03/16/18 03/16/18 Range/Units 15:03 16:56 17:09 WBC 13.4 H (4.0-11.0) th/mm3 RBC 4.20 (4.00-5.30) mil/mm3 Hgb 11.9 (11.6-15.3) gm/dL Hct 39.2 (35.0-46.0) % MCV 93.3 (80.0-100.0) fL MCH 28.4 (27.0-34.0) pg MCHC 30.4 L (32.0-36.0) % RDW 15.4 (11.6-17.2) % Plt Count 354 (150-450) th/mm3 MPV 7.2 (7.0-11.0) fL Neut % (Auto) 84.9 H (16.0-70.0) % Lymph % (Auto) 5.5 L (9.0-44.0) % Borden % (Auto) 7.6 (0.0-8.0) % Eos % (Auto) 1.7 (0.0-4.0) % Baso % (Auto) 0.3 (0.0-2.0) % Neut # (Auto) 11.3 H (1.8-7.7) th/mm3 Lymph # (Auto) 0.7 L (1.0-4.8) th/mm3 Borden # (Auto) 1.0 H (0.0-0.9) th/mm3 Eos # (Auto) 0.2 (0.0-0.4) th/mm3 Baso # (Auto) 0.0 (0.0-0.2) th/mm3 WBC Differential . Differential Comment Auto diff final PT (9.8-11.6) sec INR Ratio APTT (24.3-30.1) sec Puncture Site Patient Temperature O2 Saturation (90-100) % ABG pH (7.380-7.420) ABG pCO2 (38-42) mmHg ABG pO2 (61-120) mmHg ABG HCO3 (22-26) mmol/L ABG O2 Content (12.0-20.0) Vol % ABG Base Excess (-2-2) mmol/L ABG Methemoglobin (0-2) % Rohan Test Hemoglobin (12.0-16.0) G/DL Carboxyhemoglobin (0-4) % O2 Delivery Device Liter Flow L/M Inspired O2 % Critical Value Sodium (136-145) meq/L Potassium (3.5-5.1) meq/L Chloride (98-107) meq/L Carbon Dioxide (21.0-32.0) meq/L Anion Gap (5-15) meq/L BUN (7-18) mg/dL Creatinine (0.50-1.00) mg/dL Estimated GFR (>89) mL/min POC Glucose 181 H (68-110) mg/dl Random Glucose (74-106) mg/dL Lactic Acid 0.8 (0.4-2.0) mmol/L Calcium (8.5-10.1) mg/dL Total Bilirubin (0.2-1.0) mg/dL AST (15-37) U/L ALT (10-53) U/L Alkaline Phosphatase (45-117) U/L Total Protein (6.4-8.2) g/dL Albumin (3.4-5.0) g/dL Lipase (73-393) U/L 03/16/18 03/16/18 03/17/18 Range/Units 20:44 21:32 04:04 WBC (4.0-11.0) th/mm3 RBC (4.00-5.30) mil/mm3 Hgb (11.6-15.3) gm/dL Hct (35.0-46.0) % MCV (80.0-100.0) fL MCH (27.0-34.0) pg MCHC (32.0-36.0) % RDW (11.6-17.2) % Plt Count (150-450) th/mm3 MPV (7.0-11.0) fL Neut % (Auto) (16.0-70.0) % Lymph % (Auto) (9.0-44.0) % Borden % (Auto) (0.0-8.0) % Eos % (Auto) (0.0-4.0) % Baso % (Auto) (0.0-2.0) % Neut # (Auto) (1.8-7.7) th/mm3 Lymph # (Auto) (1.0-4.8) th/mm3 Borden # (Auto) (0.0-0.9) th/mm3 Eos # (Auto) (0.0-0.4) th/mm3 Baso # (Auto) (0.0-0.2) th/mm3 WBC Differential Differential Comment PT (9.8-11.6) sec INR Ratio APTT (24.3-30.1) sec Puncture Site Patient Temperature O2 Saturation (90-100) % ABG pH (7.380-7.420) ABG pCO2 (38-42) mmHg ABG pO2 (61-120) mmHg ABG HCO3 (22-26) mmol/L ABG O2 Content (12.0-20.0) Vol % ABG Base Excess (-2-2) mmol/L ABG Methemoglobin (0-2) % Rohan Test Hemoglobin (12.0-16.0) G/DL Carboxyhemoglobin (0-4) % O2 Delivery Device Liter Flow L/M Inspired O2 % Critical Value Sodium 135 L (136-145) meq/L Potassium 3.8 (3.5-5.1) meq/L Chloride 100 (98-107) meq/L Carbon Dioxide 23.2 (21.0-32.0) meq/L Anion Gap 12 (5-15) meq/L BUN 45 H (7-18) mg/dL Creatinine 6.82 H (0.50-1.00) mg/dL Estimated GFR 8 L (>89) mL/min POC Glucose 135 H 141 H (68-110) mg/dl Random Glucose 132 H (74-106) mg/dL Lactic Acid (0.4-2.0) mmol/L Calcium 8.7 (8.5-10.1) mg/dL Total Bilirubin 0.3 (0.2-1.0) mg/dL AST 10 L (15-37) U/L ALT 12 (10-53) U/L Alkaline Phosphatase 56 (45-117) U/L Total Protein 7.6 D (6.4-8.2) g/dL Albumin 2.7 L (3.4-5.0) g/dL Lipase (73-393) U/L Imaging Data Radiologist's impression: ITS Impressions Abdomen/Pelvis CT 03/15/18 13:55 CONCLUSION: 1. Stable CT scan of the abdomen and pelvis compared to the recent prior study. No new or significant changes. Chest X-Ray 03/16/18 00:00 CONCLUSION: No acute cardiopulmonary disease. Stents overlie the left axilla. Abdomen X-Ray 03/16/18 10:14 CONCLUSION: Unremarkable abdomen. Discharge Plan Discharge Disposition Patient Disposition: 30 Still Patient Discharge Details Discharge Problem: Abdominal pain, End-stage renal disease on hemodialysis Physicians Team ED Provider: Madhu Khan Primary Care Provider: UNKNOWN, Attending Provider: Bryan Bustos Other Providers: Kalli Rowe ; Tahir Blas V ; Leonidas Rowe Discharge Interventions Interventions: ED Discharge Assessment Last Done: 03/15/18 19:58 Status ED Status: Left Department Discharge Information Discharge Date/Time: 03/15/18 20:00
[2018-03-15 14:52] LABS: Baso % (Auto) 0.1 % (0.0-2.0); Eos # (Auto) 0.1 th/mm3 (0.0-0.4); Eos % (Auto) 0.4 % (0.0-4.0); Hematocrit 39.3 % (35.0-46.0); Hemoglobin 12.9 gm/dL (11.6-15.3); Lymph # (Auto) 0.6 th/mm3 (1.0-4.8); Lymph % (Auto) 2.4 % (9.0-44.0); Mean Corpuscular HGB Conc 32.9 % (32.0-36.0); Mean Corpuscular Hemoglobin 30.5 pg (27.0-34.0); Mean Corpuscular Volume 92.7 fL (80.0-100.0); Mean Platelet Volume 7.6 fL (7.0-11.0); Mono # (Auto) 1.4 th/mm3 (0.0-0.9); Mono % (Auto) 5.4 % (0.0-8.0); Neut # (Auto) 23.7 th/mm3 (1.8-7.7); Neut % (Auto) 91.7 % (16.0-70.0); Platelet Count 366 th/mm3 (150-450); Red Blood Count 4.24 mil/mm3 (4.00-5.30); Red Cell Distribution Width 15.3 % (11.6-17.2); White Blood Count 25.8 th/mm3 (4.0-11.0)
[2018-03-15 15:04] LABS: Activated Partial Thrombo Time 32.8 sec (24.3-30.1); INR 1.1 Ratio; Prothrombin Time 11.1 sec (9.8-11.6)
[2018-03-15 15:08] LABS: Alkaline Phosphatase 72 U/L (45-117); Total Protein 8.9 g/dL (6.4-8.2)
[2018-03-15 15:10] LABS: Alanine Aminotransferase 16 U/L (10-53); Albumin 3.4 g/dL (3.4-5.0); Anion Gap 15 meq/L (5-15); Aspartate Aminotransferase 13 U/L (15-37); Blood Urea Nitrogen 26 mg/dL (7-18); Carbon Dioxide 25.2 meq/L (21.0-32.0); Chloride 95 meq/L (98-107); Glomerular Filtration Rate 12 mL/min (>89); Glucose,Random 127 mg/dL (74-106); Lipase 95 U/L (73-393); Potassium 3.6 meq/L (3.5-5.1); Sodium 135 meq/L (136-145)
--- NOTE | 2018-03-15 15:55 | CT ---
EXAM DATE: 03/15/2018 3:30 PM EDT AGE/SEX: 57 years / Female INDICATIONS: Abdominal pain. Nausea. CLINICAL DATA: This is the patient's initial encounter. Patient reports that signs and symptoms have been present for 3 days and indicates a pain score of 5/10. MEDICAL/SURGICAL HISTORY: Diabetes. Hypertension. None. RADIATION DOSE: 31.08 CTDI (mGy) ; Patient body habitus COMPARISON: [facility] – [place], CT ABDOMEN & PELVIS W/O CONTRAST, 02/27/2018. . TECHNIQUE: Multiple contiguous axial images were obtained through the abdomen. Images were obtained using multiple row detector helical technique. Using automated exposure control and adjustment of the mA and/or kV according to patient size, radiation dose was kept as low as reasonably achievable to o btain optimal diagnostic quality images. DICOM format image data is available electronically for rev iew and comparison. FINDINGS: Lower Lungs: The visualized lower lungs are clear. Liver: The liver has a homogeneous density without space-occupying lesion. There is no dilation of th e biliary tree. Gallbladder surgically removed. Spleen: Homogeneous density without enlargement. Pancreas: Unremarkable without mass or calcification. Kidneys: The kidneys are atrophic. There is no hydronephrosis. There is a stable 2.3 cm cyst along t he upper pole on the left side. There is a tiny 2 mm calcification in the upper pole of the right kid pipe which appears to be in the parenchyma. The ureters are nondilated. Adrenal Glands: Unremarkable. Aorta: Atherosclerotic changes no aneurysmal dilatation. Bowel/Mesentery: The bowel loops are grossly unremarkable. The cecum and sigmoid colon have a normal configuration. No inflammatory changes. No significant change compared to the prior study. Abdominal Wall: There are some varices in the anterior abdominal wall. There is an umbilical hernia containing mesenteric fat. Retroperitoneum: No evidence of adenopathy in the retrocrural, para-aortic, or deep pelvic regions. Bladder: Contours are smooth. Reproductive Organs: No abnormal masses or calcifications seen. Inguinal: The inguinal region is unremarkable without evidence of adenopathy. Bony Structures: Stable sclerotic changes. No new or significant changes compared to the prior examination. CONCLUSION: 1. Stable CT scan of the abdomen and pelvis compared to the recent prior study. No new or significan t changes. Electronically signed by: Alireza Lance MD 03/15/2018 3:53 PM EDT
[2018-03-15] MEDS ORDERED: Piperacil/Tazo 3.375 GM Premix 50 ML IV.SIG ONE (17:41)
[2018-03-15 23:09] LABS: Baso % (Auto) 0.1 % (0.0-2.0); Eos # (Auto) 0.1 th/mm3 (0.0-0.4); Eos % (Auto) 0.4 % (0.0-4.0); Hematocrit 39.4 % (35.0-46.0); Hemoglobin 12.2 gm/dL (11.6-15.3); Lymph # (Auto) 0.7 th/mm3 (1.0-4.8); Lymph % (Auto) 4.4 % (9.0-44.0); Mean Corpuscular Hemoglobin 28.6 pg (27.0-34.0); Mean Corpuscular Volume 92.6 fL (80.0-100.0); Mean Platelet Volume 7.3 fL (7.0-11.0); Mono % (Auto) 6.3 % (0.0-8.0); Neut # (Auto) 14.7 th/mm3 (1.8-7.7); Neut % (Auto) 88.8 % (16.0-70.0); Platelet Count 360 th/mm3 (150-450); Red Blood Count 4.25 mil/mm3 (4.00-5.30); Red Cell Distribution Width 15.3 % (11.6-17.2); White Blood Count 16.6 th/mm3 (4.0-11.0)
[2018-03-15 23:25] LABS: Calcium 9.4 mg/dL (8.5-10.1); Carbon Dioxide 25.6 meq/L (21.0-32.0); Potassium 3.8 meq/L (3.5-5.1)
[2018-03-15 23:26] LABS: Mean Corpuscular HGB Conc 30.9 % (32.0-36.0)
[2018-03-16] MEDS: Sodium Chloride 0.45 % Inj 1,000 ML IV.CONT SCH ×2 (00:24→00:29)
[2018-03-16] MEDS ORDERED: Sodium Chlor 0.9% Inj 250 ML IV.SIG SCH (02:00)
[2018-03-16] MEDS ORDERED: Dextrose 50% in Water 50 ML Vial IV.PUSH PRN ×3 (08:51→12:00)
[2018-03-16] MEDS ORDERED: Gelatin 12 MM/7 MM Topical Foam TOPICAL PRN (09:20)
[2018-03-16] MEDS ORDERED: Sod Chloride 0.9% Inj 1,000 ML IV.CONT PRN (09:20)
[2018-03-16] MEDS ORDERED: Acetaminophen 325 MG Tablet PO PRN (09:20)
[2018-03-16] MEDS ORDERED: Sod Chloride 0.9% Inj 1,000 ML OTHER PRN ×2 (09:20)
[2018-03-16] MEDS ORDERED: Heparin 10,000 UNITS/10 ML Vial (for IV use) IV.FLUSH PRN (09:20)
[2018-03-16 10:14] LABS: ABG Base Excess -0.3 mmol/L (-2-2); ABG PCO2 52 mmHg (38-42); ABG PO2 88 mmHg (61-120)
[2018-03-16] MEDS ORDERED: Sodium Chlor 0.9% Inj 500 ML IV.SIG ONE (10:16)
--- NOTE | 2018-03-16 10:36 | P.CONID ---
History of Present Illness Service: ID Consult date: 03/16/18 Requesting Physician: Bryan Bustos Reason for Consult: Evaluation and Mment of Severe Sepsis Primary Care Provider: UNKNOWN Family Provider: Ria Goetz Chief Complaint: Nausea, decreased appetite. History of Present Illness: is a 57 y/o AAF with complains of abdominal pain, nausea, poor appetite , generalized malaise and weakness of 3 days duration. Patient reports she was sent from a half-way for low blood pressure. Patient reports cramping pain localized to the upper abdomen on admission which is now better and reports it as being intermittent. She reports constipation and no BM for several days prior to admission despite an aggressive bowel regimen. Patient states that she currently has nausea and decreaed appetite but no vomiting and denies any diarrhea. Patient reports prior h.o GERD and gastritis and reports pain is worse upon eating. Patient is HD dependent using a Permacath in her Right groin. 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 Patient also reports being on peritoneal dialysis in past and there is records of possible peritonitis related to PD catheter. She does not make much urine. Her last HD session was on 03/15/18. She has COPD,Morbid Obesity, CHF and sleep apnea and is on Oxygen at baseline. She has been told to wear a CPAP machine for sleep apnea at night but she does not like wearing it so she has not been using it. She denies any CP,SOB. She denies any Back pain She denies any fever, chills or night sweats. I received a call from RN for BP 60/40 this am and repeat BP 100/62. She reported to me a Halicat was called this am and patient is awaiting transfer to ICU for being placed on vasopressors. She has a peripheral IV line in place. She has a permacath in her right groin. She is alert, oriented x 3 and confirmed most of the history for me. UO minimal but that is her baseline. She has been started on NS 500 cc bolus and her repeat BP at the time of my visit was 80/40, HR 98, sats 98% on 3L NC (baseline 2L NC at home). She received 1 dose of Zosyn in ED by . No lactic acid drawn and no labs for this am. WBC elevated, tachycardia, low BP (lower than her baseline at discharge last time on midodrine 133/70). No imaging on chart. I initiated a call to crew supervisor [place] [facility] [place] I ordered stat labs, stat blood cultures, stat imaging, 500 CC NS bolus, STAT antibiotics (called Mirella in IV room to order these as stat). dw charge account clerkJonh SAMAYOA consulted and will be following for severe sepsis likely source based on current data HD cath related bacteremia. PMHx End-stage renal disease on hemodialysis Sunday History of hepatitis C per review of medical records this remains to be confirmed Duodenal ulcer GERD Anxiety Morbid obesity Coronary artery disease CHF Prior history of sepsis Prior history of recurrent C. difficile colitis Prior history of multiple infections including AV graft bilateral upper extremities Infection of the PD catheter and related peritonitis Osteomyelitis bilateral lower extremity Sacral decubitus ulcer DVT Hyperparathyroidism Bronchitis Hypothyroidism Baseline hypotension diagnosis possible dysautonomia on discharge last time was placed on midodrine (her baseline blood pressure on the midodrine was 133/70). Hypercholesterolemia Peripheral neuropathy Past surgical history: Infection of bilateral upper extremity AV fistulas PD catheter related peritonitis Right foot all digits amputated still has forefoot Left foot great toe amputation Right hand surgery for infection Multiple revisions for AV fistulas bilateral upper extremity Permacath placement for hemodialysis Review of Systems All other systems reviewed negative except as stated in HPI PMFSH - History History Provided By: Patient - Medical History Medical History: Medical History (Last Updated 03/15/18 @ 14:06 by Kelly Snell) Diabetes ESRD (end stage renal disease) on dialysis HBP (high blood pressure) Hemodialysis access, AV graft - Surgical History Surgical History: Surgical History (Last Updated 03/15/18 @ 14:06 by Kelly Snell) Hx of appendectomy - Tobacco History Second Hand Smoke Exposure: Yes Tobacco Use In Past 30 Days: No Smoking Status: Never smoker Tobacco Type: Cigarettes - Alcohol History How Often Do You Have a Drink Containing Alcohol: Never - Substance Use History Substance History: No History of Abuse - Travel History Recent Travel in the [place] Within the Last 8 Weeks: No Recent Travel Out of the Country Within the Last 8 Weeks: No - Immunization History Tetanus Immunization: <5 Years Hx Influenza Vaccine This Season: Yes Medications and Allergies Active Medications: Active Medications Acetaminophen (Tylenol) 650 mg PO UNSCH PRN PRN Reason: SEE LABEL COMMENTS Clonidine HCl (Catapres) 0.1 mg PO UNSCH PRN PRN Reason: SEE LABEL COMMENTS Dextrose (D50w Vial) 50 ml IV.PUSH UNSCH PRN PRN Reason: PER HYPOGLYCEMIA PROTOCOL Diphenhydramine HCl (Benadryl) 25 mg PO UNSCH PRN PRN Reason: SEE LABEL COMMENTS Gelatin (Gelfoam 12 Mm/7 Mm Topical) 1 foam TOPICAL PRN PRN PRN Reason: help stop bleeding from site Gentamicin Sulfate (Gentamicin Inj) 20 mg OTHER WITH DIALYSIS PRN PRN Reason: Dwell Gentamycin Lock Heparin Sodium (Porcine) (Heparin Inj) 8,000 units IV.FLUSH WITH DIALYSIS PRN PRN Reason: for machine prime Heparin Sodium (Porcine) (Heparin Inj) 1,000 units OTHER WITH DIALYSIS PRN PRN Reason: Dwell Heparin to Fill Catheter Sodium Chloride (1/2 Normal Saline Inj) 1,000 mls @ 100 mls/hr IV.CONT .Q10H GEOVANNY Last Admin: 03/16/18 00:29 Dose: 75 mls/hr Albumin Human (Flexbumin 25% Inj) 100 mls @ 60 mls/hr IV.SIG WITH DIALYSIS PRN PRN Reason: hypotension / volume replace Sodium Chloride (Ns Inj) 1,000 mls @ 0 mls/hr OTHER .Q0M PRN PRN Reason: for prime and rinse back Sodium Chloride (Ns Inj) 1,000 mls @ 200 mls/hr OTHER .Q5H PRN PRN Reason: for dialyzer flush PRN Sodium Chloride (Ns Inj) 1,000 mls @ 0 mls/hr IV.CONT .Q0M PRN PRN Reason: hypotension / volume replace Cefepime HCl 1,000 mg/ Sodium (Chloride) 100 mls @ 200 mls/hr IV.SIG Q24H GEOVANNY Daptomycin 1,400 mg/ Sodium (Chloride) 100 mls @ 200 mls/hr IV.SIG Q24H GEOVANNY Mannitol (Mannitol Inj) 12.5 gm IV.PUSH PRN PRN PRN Reason: hypotension / volume replace Nitroglycerin (Nitrostat Sl) 0.4 mg SL Q5M PRN PRN Reason: CHEST PAIN Ondansetron HCl (Zofran Odt) 4 mg PO UNSCH PRN PRN Reason: NAUSEA OR VOMITING Pantoprazole Sodium (Protonix) 40 mg PO BID [facility] Sodium Chloride (Ns Flush) 2 ml IV.FLUSH BID [facility] Last Admin: 03/16/18 00:34 Dose: 2 ml Sodium Chloride (Ns Flush) 2 ml IV.FLUSH PRN PRN PRN Reason: FLUSH AFTER USING IV ACCESS Sodium Chloride (Ns Flush) 5 ml IV.FLUSH PRN PRN PRN Reason: flush each lumen during HD Allergies Allergy/AdvReac Type Severity Reaction Status Date / Time levofloxacin Allergy Severe Anaphylaxis Verified 03/15/18 13:35 Home Medications Medication Instructions Recorded Confirmed Type B complex-vitamin C-folic acid 1 tab PO DAILY 03/15/18 03/15/18 History [Nephro-Devendra] aspirin 81 mg PO DAILY 03/15/18 03/15/18 History atorvastatin [Lipitor] 10 mg PO HS 03/15/18 03/15/18 History bupropion HCl 300 mg PO DAILY 03/15/18 03/15/18 History calcium acetate 2,668 mg PO TIDWM 03/15/18 03/15/18 History calcium carbonate 1,000 mg PO DAILY 03/15/18 03/15/18 History calcium carbonate [Calcium 500] 2,000 mg PO Q8HR 03/15/18 03/15/18 History cholecalciferol (vitamin D3) 5,000 unit PO DAILY 03/15/18 03/15/18 History [Vitamin D3] collagenase clostridium histo. 1 applic TOPICAL DAILY 03/15/18 03/15/18 History [Santyl] cyclobenzaprine 10 mg PO BID 03/15/18 03/15/18 History gabapentin 300 mg PO HS 03/15/18 03/15/18 History gelatin absorbable [Gelfoam] 1 applicatio TOPICAL DAILY PRN 03/15/18 03/15/18 History insulin asp prt-insulin aspart 8 unit SUB-Q BID 03/15/18 03/15/18 History [Novolog Mix 70-30 U-100 Insuln] ipratropium-albuterol [Combivent 2 puff INHALATION BID 03/15/18 03/15/18 History Respimat] levothyroxine 50 mcg PO DAILY 03/15/18 03/15/18 History midodrine 10 mg PO TID 03/15/18 03/15/18 History pantoprazole [Protonix] 40 mg PO DAILY 03/15/18 03/15/18 History silver sulfadiazine [Silvadene] 1 applic TOPICAL BID 03/15/18 03/15/18 History trazodone 100 mg PO HS 03/15/18 03/15/18 History Exam Vital signs: Vital Signs 03/15/18 13:42 03/15/18 13:45 03/15/18 15:11 Temperature 97.7 F 97.8 F Pulse Rate 105 H 102 H 104 H Respiratory Rate 18 20 Blood Pressure 141/96 H 133/80 Pulse Oximetry 97 96 03/15/18 17:00 03/15/18 18:05 03/15/18 20:00 Temperature 97.9 F 97.8 F 97.6 F Pulse Rate 94 H 98 H 100 H Respiratory Rate 18 18 18 Blood Pressure 100/55 L 98/63 L 88/53 L Pulse Oximetry 97 100 96 03/16/18 00:00 03/16/18 04:00 03/16/18 08:30 Temperature 98.3 F 98.5 F 98.0 F Pulse Rate 90 97 H 93 H Respiratory Rate 18 18 16 Blood Pressure 84/56 L 101/62 60/32 L Pulse Oximetry 93 L 62 L 03/16/18 09:20 03/16/18 09:51 Temperature 97.9 F Pulse Rate 92 H Respiratory Rate 16 Blood Pressure 99/52 L 80/42 L Pulse Oximetry 95 Intake & Output 03/15/18 03/16/18 03/16/18 18:59 06:59 18:59 Intake Total 500 / 500 Balance 500 / 500 Weight 148.778 kg 148.77 kg Intake: IV 500 / 500 NS Inj 500 ML @ Wide Open IV. 500 / 500 SIG BOLUS ONE Rx#:[id number] Other: Date of Last Bowel Movement 03/16/18 Weight On Admission 148.77 kg Narrative: Morbidly obese Not in acute distress. Permacath in RT groin Peripheral IV site ok. Skin folds examined with no obvious infection Unstageable skin ulcers in buttock area. Rt foot 5 digits surgically amputated. Left foot great toe amputated. Scars on right hand Scars on bilateral UE at prior fistulas: no bruit or thrill. - Constitutional no acute distress - Routine HEENT Exam Head: Present: normocephalic, atraumatic Eye: Present: EOMI, PERRL. Absent: conjunctival icterus, scleral injection ENT: Present: mucous membranes moist - Routine Neck Exam Present: supple, full ROM - Routine Chest/Breast/Axilla Exam Chest wall: Absent: tenderness, mass Breast: Absent: tenderness Axillae: Absent: lymphadenopathy - Routine Respiratory Exam Present: decreased breath sounds, CTA bilaterally - Routine Cardiovascular Exam Present: RRR, tachycardia - Routine Abdominal Exam Present: soft, distended (Obese abdomen with multiple skin folds) - Routine Extremities Exam Absent: cyanosis, clubbing - Routine Skin Exam Present: lesions (Unstageable ulcers on buttock skin folds and crack) - Routine Neurological Exam Present: alert, oriented X3 - Routine Psychiatric Exam Present: normal affect Results - Labs CBC & Chem 7: 03/15/18 22:34 03/15/18 22:34 Labs: Laboratory Results - last 24 hr 03/15/18 03/15/18 03/15/18 14:10 14:18 14:18 WBC 25.8 H RBC 4.24 Hgb 12.9 Hct 39.3 MCV 92.7 MCH 30.5 MCHC 32.9 RDW 15.3 Plt Count 366 MPV 7.6 Neut % (Auto) 91.7 H Lymph % (Auto) 2.4 L [place] % (Auto) 5.4 Eos % (Auto) 0.4 Baso % (Auto) 0.1 Neut # (Auto) 23.7 H Lymph # (Auto) 0.6 L [place] # (Auto) 1.4 H Eos # (Auto) 0.1 Baso # (Auto) 0.0 WBC Differential . Differential Comment Auto diff final PT 11.1 INR 1.1 APTT 32.8 H Puncture Site Patient Temperature O2 Saturation ABG pH ABG pCO2 ABG pO2 ABG HCO3 ABG O2 Content ABG Base Excess ABG Methemoglobin Rohan Test Hemoglobin Carboxyhemoglobin O2 Delivery Device Liter Flow Inspired O2 Critical Value Sodium 135 L Potassium 3.6 Chloride 95 L Carbon Dioxide 25.2 Anion Gap 15 BUN 26 H Creatinine 4.49 H Estimated GFR 12 L POC Glucose Random Glucose 127 H Calcium 10.0 Total Bilirubin 0.4 AST 13 L ALT 16 Alkaline Phosphatase 72 Total Protein 8.9 H Albumin 3.4 Lipase 95 03/15/18 03/15/18 03/16/18 22:34 22:34 07:43 WBC 16.6 H RBC 4.25 Hgb 12.2 Hct 39.4 MCV 92.6 MCH 28.6 MCHC 30.9 L RDW 15.3 Plt Count 360 MPV 7.3 Neut % (Auto) 88.8 H Lymph % (Auto) 4.4 L [place] % (Auto) 6.3 Eos % (Auto) 0.4 Baso % (Auto) 0.1 Neut # (Auto) 14.7 H Lymph # (Auto) 0.7 L [place] # (Auto) 1.0 H Eos # (Auto) 0.1 Baso # (Auto) 0.0 WBC Differential . Differential Comment Auto diff final PT INR APTT Puncture Site Patient Temperature O2 Saturation ABG pH ABG pCO2 ABG pO2 ABG HCO3 ABG O2 Content ABG Base Excess ABG Methemoglobin Rohan Test Hemoglobin Carboxyhemoglobin O2 Delivery Device Liter Flow Inspired O2 Critical Value Sodium 136 Potassium 3.8 Chloride 97 L Carbon Dioxide 25.6 Anion Gap 13 BUN 33 H Creatinine 5.37 H Estimated GFR 10 L POC Glucose 65 L Random Glucose 86 Calcium 9.4 Total Bilirubin AST ALT Alkaline Phosphatase Total Protein Albumin Lipase 03/16/18 03/16/18 03/16/18 08:34 09:03 09:54 WBC RBC Hgb Hct MCV MCH MCHC RDW Plt Count MPV Neut % (Auto) Lymph % (Auto) [place] % (Auto) Eos % (Auto) Baso % (Auto) Neut # (Auto) Lymph # (Auto) [place] # (Auto) Eos # (Auto) Baso # (Auto) WBC Differential Differential Comment PT INR APTT Puncture Site Left radial Patient Temperature 98.6 O2 Saturation 93 ABG pH 7.31 L ABG pCO2 52 H* ABG pO2 88 ABG HCO3 25 ABG O2 Content 15.8 ABG Base Excess -0.3 ABG Methemoglobin 1.6 Rohan Test Present Hemoglobin 12.0 Carboxyhemoglobin 0.7 O2 Delivery Device Nasal cannula Liter Flow 3.00 Inspired O2 32 Critical Value Yes Sodium Potassium Chloride Carbon Dioxide Anion Gap BUN Creatinine Estimated GFR POC Glucose 68 233 H Random Glucose Calcium Total Bilirubin AST ALT Alkaline Phosphatase Total Protein Albumin Lipase - Imaging Impressions Abdomen/Pelvis CT 03/15/18 13:55 CONCLUSION: 1. Stable CT scan of the abdomen and pelvis compared to the recent prior study. No new or significant changes. Assessment and Plan - Plan Severe sepsis with ongoing hypotension possible need for pressors Patient has baseline hypotension was on Midodrin. Last admission blood pressure while on midodrine was 133/70. Possible right groin permacath infection related bacteremia suspected Possible ileus secondary to constipation given nausea vomiting. 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 difficile colitis, bilateral upper extremity AV fistula infections, PD catheter related infections. Recs: Stat labs CBC with differential, CMP, lactic acid Stat ABG reviewed with returns clerk Stat chest x-ray Stat x-ray KUB Stat blood cultures x2 Start cefepime IV 1 g IV every 24 hrs discussed with clinical pharmacist and IV room Start daptomycin 10 mg/kg IV every 24hrs We will get blood culture from hemodialysis catheter during hemodialysis session on Sunday his permacath cannot be accessed by us Due to persistent hypotension despite IV fluids and blood pressure being below which she was at even while on midodrine in the past concern for sepsis or prerenal related hypotension requiring vasopressors Discussed with change house attendant to transfer patient to the ICU stat Discussed with returns clerk on-call. Consult returns clerk placed Follow cultures Follow clinically. Critical thinking decision making, STAT orders and Transfer to the ICU.
--- NOTE | 2018-03-16 10:58 | XR ---
EXAM DATE: 03/16/2018 10:54 AM EDT AGE/SEX: 57 years / Female INDICATIONS: Pneumonia. CLINICAL DATA: This is the patient's subsequent encounter. Patient reports that signs and symptoms h ave been present for 3 weeks and indicates a pain score of 0/10. MEDICAL/SURGICAL HISTORY: . Hypertension. Renal disease, end stage. Congestive heart failure . Appendectomy. Thyroidectomy. Cholecystectomy COMPARISON: [facility] [place], CHEST SINGLE AP, 02/27/2018. . FINDINGS: A single AP view of the chest demonstrates the lungs to be symmetrically aerated without evidence of mass, infiltrate or effusion. The cardiomediastinal contours are unremarkable. Osseous structures a re intact. CONCLUSION: No acute cardiopulmonary disease. Stents overlie the left axilla. Electronically signed by: Goyo Hahn MD 03/16/2018 10:57 AM EDT
[2018-03-16] MEDS ORDERED: DAPTOMYCIN IV.SIG SCH (11:00)
[2018-03-16] MEDS ORDERED: SODIUM CHLOR 0.9% IV.SIG SCH (11:00)
--- NOTE | 2018-03-16 11:03 | XR ---
EXAM DATE: 03/16/2018 10:56 AM EDT AGE/SEX: 57 years / Female INDICATIONS: Fecal Impaction. CLINICAL DATA: This is the patient's subsequent encounter. Patient reports that signs and symptoms h ave been present for 3 weeks and indicates a pain score of 1/10. MEDICAL/SURGICAL HISTORY: . Hypertension. Renal disease, end stage. Congestive heart failure. . Appendectomy. Thyroidectomy. Cholecystectomy COMPARISON: [facility] [place], ABDOMEN KUB ONLY, 12/23/2017. . FINDINGS: The abdominal bowel gas pattern is normal. No abnormal masses, calcifications, or organomegaly is s een. The osseous structures are unremarkable. Catheter in the right groin with tip overlying the catrina er. No significant constipation. CONCLUSION: Unremarkable abdomen. Electronically signed by: Goyo Hahn MD 03/16/2018 11:01 AM EDT
--- NOTE | 2018-03-16 11:47 | P.HPFP ---
History of Present Illness Service: primary care family med Primary Care Physician: UNKNOWN Chief Complaint: Nausea, decreased appetite. History of Present Illness: pt admitted via ed last pm had been at dialysis and had developed nausea and vomiting and was sent ED by dialysis discussed at length with dr DRUMMOND admission orders entered - Diagnosis (1) Diabetes 1.5, managed as type 1 (2) Abdominal pain (3) End-stage renal disease on hemodialysis Inpatient Certification: I certify that the inpatient services were ordered in accordance with Medicare regulations governing the order. This includes certification that hospital inpatient services are reasonable and necessary and in the case of services not specified as inpatient-only under 42 CFR 419.22(n), that they are appropriately provided as inpatient services in accordance to with the 2-midnight benchmark under 43 CFR 412.3(e) Estimated Total Length of Stay (Days): 5 Plans for Post Hospital Care: Home Review of Systems Constitutional: Reports weakness Cardiovascular: Reports leg swelling Respiratory: Reports shortness of breath Gastrointestinal: Reports abdominal pain PMFSH - History History Provided By: Patient - Medical History Medical History: Medical History (Last Updated 03/16/18 @ 11:32 by Bryan Bustos DO) Hemodialysis access, AV graft (Acute) ESRD (end stage renal disease) on dialysis (Acute) HBP (high blood pressure) (Acute) Diabetes (Acute) - Surgical History Surgical History: Surgical History (Last Updated 03/16/18 @ 11:32 by Bryan Bustos DO) Hx of appendectomy (Acute) - Tobacco History Second Hand Smoke Exposure: Yes Tobacco Use In Past 30 Days: No Smoking Status: Never smoker Tobacco Type: Cigarettes - Alcohol History How Often Do You Have a Drink Containing Alcohol: Never - Substance Use History Substance History: No History of Abuse - Travel History Recent Travel in the [place] Within the Last 8 Weeks: No Recent Travel Out of the Country Within the Last 8 Weeks: No - Immunization History Tetanus Immunization: <5 Years Hx Influenza Vaccine This Season: Yes Medications and Allergies Active Medications: Active Medications Acetaminophen (Tylenol) 650 mg PO UNSCH PRN PRN Reason: SEE LABEL COMMENTS Clonidine HCl (Catapres) 0.1 mg PO UNSCH PRN PRN Reason: SEE LABEL COMMENTS Dextrose (D50w Vial) 50 ml IV.PUSH UNSCH PRN PRN Reason: PER HYPOGLYCEMIA PROTOCOL Diphenhydramine HCl (Benadryl) 25 mg PO UNSCH PRN PRN Reason: SEE LABEL COMMENTS Gelatin (Gelfoam 12 Mm/7 Mm Topical) 1 foam TOPICAL PRN PRN PRN Reason: help stop bleeding from site Gentamicin Sulfate (Gentamicin Inj) 20 mg OTHER WITH DIALYSIS PRN PRN Reason: Dwell Gentamycin Lock Heparin Sodium (Porcine) (Heparin Inj) 8,000 units IV.FLUSH WITH DIALYSIS PRN PRN Reason: for machine prime Heparin Sodium (Porcine) (Heparin Inj) 1,000 units OTHER WITH DIALYSIS PRN PRN Reason: Dwell Heparin to Fill Catheter Sodium Chloride (1/2 Normal Saline Inj) 1,000 mls @ 100 mls/hr IV.CONT .Q10H GEOVANNY Last Admin: 03/16/18 00:29 Dose: 75 mls/hr Albumin Human (Flexbumin 25% Inj) 100 mls @ 60 mls/hr IV.SIG WITH DIALYSIS PRN PRN Reason: hypotension / volume replace Sodium Chloride (Ns Inj) 1,000 mls @ 0 mls/hr OTHER .Q0M PRN PRN Reason: for prime and rinse back Sodium Chloride (Ns Inj) 1,000 mls @ 200 mls/hr OTHER .Q5H PRN PRN Reason: for dialyzer flush PRN Sodium Chloride (Ns Inj) 1,000 mls @ 0 mls/hr IV.CONT .Q0M PRN PRN Reason: hypotension / volume replace Cefepime HCl 1,000 mg/ Sodium (Chloride) 100 mls @ 200 mls/hr IV.SIG Q24H GEOVANNY Daptomycin 1,400 mg/ Sodium (Chloride) 100 mls @ 200 mls/hr IV.SIG Q48H GEOVANNY Mannitol (Mannitol Inj) 12.5 gm IV.PUSH PRN PRN PRN Reason: hypotension / volume replace Nitroglycerin (Nitrostat Sl) 0.4 mg SL Q5M PRN PRN Reason: CHEST PAIN Ondansetron HCl (Zofran Odt) 4 mg PO UNSCH PRN PRN Reason: NAUSEA OR VOMITING Pantoprazole Sodium (Protonix) 40 mg PO BID GEOVANNY Sodium Chloride (Ns Flush) 2 ml IV.FLUSH BID [facility] Last Admin: 03/16/18 00:34 Dose: 2 ml Sodium Chloride (Ns Flush) 2 ml IV.FLUSH PRN PRN PRN Reason: FLUSH AFTER USING IV ACCESS Sodium Chloride (Ns Flush) 5 ml IV.FLUSH PRN PRN PRN Reason: flush each lumen during HD Allergies Allergy/AdvReac Type Severity Reaction Status Date / Time levofloxacin Allergy Severe Anaphylaxis Verified 03/15/18 13:35 Home Medications Medication Instructions Recorded Confirmed Type B complex-vitamin C-folic acid 1 tab PO DAILY 03/15/18 03/15/18 History [Nephro-Devendra] aspirin 81 mg PO DAILY 03/15/18 03/15/18 History atorvastatin [Lipitor] 10 mg PO HS 03/15/18 03/15/18 History bupropion HCl 300 mg PO DAILY 03/15/18 03/15/18 History calcium acetate 2,668 mg PO TIDWM 03/15/18 03/15/18 History calcium carbonate 1,000 mg PO DAILY 03/15/18 03/15/18 History calcium carbonate [Calcium 500] 2,000 mg PO Q8HR 03/15/18 03/15/18 History cholecalciferol (vitamin D3) 5,000 unit PO DAILY 03/15/18 03/15/18 History [Vitamin D3] collagenase clostridium histo. 1 applic TOPICAL DAILY 03/15/18 03/15/18 History [Santyl] cyclobenzaprine 10 mg PO BID 03/15/18 03/15/18 History gabapentin 300 mg PO HS 03/15/18 03/15/18 History gelatin absorbable [Gelfoam] 1 applicatio TOPICAL DAILY PRN 03/15/18 03/15/18 History insulin asp prt-insulin aspart 8 unit SUB-Q BID 03/15/18 03/15/18 History [Novolog Mix 70-30 U-100 Insuln] ipratropium-albuterol [Combivent 2 puff INHALATION BID 03/15/18 03/15/18 History Respimat] levothyroxine 50 mcg PO DAILY 03/15/18 03/15/18 History midodrine 10 mg PO TID 03/15/18 03/15/18 History pantoprazole [Protonix] 40 mg PO DAILY 03/15/18 03/15/18 History silver sulfadiazine [Silvadene] 1 applic TOPICAL BID 03/15/18 03/15/18 History trazodone 100 mg PO HS 03/15/18 03/15/18 History Exam Vital signs: Vital Signs 03/15/18 13:42 03/15/18 13:45 03/15/18 15:11 Temperature 97.7 F 97.8 F Pulse Rate 105 H 102 H 104 H Respiratory Rate 18 20 Blood Pressure 141/96 H 133/80 Pulse Oximetry 97 96 03/15/18 17:00 03/15/18 18:05 03/15/18 20:00 Temperature 97.9 F 97.8 F 97.6 F Pulse Rate 94 H 98 H 100 H Respiratory Rate 18 18 18 Blood Pressure 100/55 L 98/63 L 88/53 L Pulse Oximetry 97 100 96 03/16/18 00:00 03/16/18 04:00 03/16/18 08:00 Temperature 98.3 F 98.5 F 98.8 F Pulse Rate 90 97 H 99 H Respiratory Rate 18 18 12 Blood Pressure 84/56 L 101/62 67/33 L Pulse Oximetry 93 L 62 L 93 L 03/16/18 08:30 03/16/18 09:20 03/16/18 09:51 Temperature 98.0 F 97.9 F Pulse Rate 93 H 92 H Respiratory Rate 16 16 Blood Pressure 60/32 L 99/52 L 80/42 L Pulse Oximetry 95 Intake & Output 03/15/18 03/16/18 03/16/18 18:59 06:59 18:59 Intake Total 500 / 500 Balance 500 / 500 Weight 148.778 kg 148.77 kg Intake: IV 500 / 500 NS Inj 500 ML @ Wide Open IV. 500 / 500 SIG BOLUS ONE Rx#:[id number] Other: Date of Last Bowel Movement 03/16/18 Weight On Admission 148.77 kg - Constitutional no acute distress, obese - Routine HEENT Exam Head: Present: normocephalic, atraumatic Eye: Present: EOMI, PERRL - Routine Neck Exam Present: supple - Routine Respiratory Exam Present: decreased breath sounds, CTA bilaterally - Routine Cardiovascular Exam Present: RRR - Routine Abdominal Exam Present: soft, normoactive bowel sounds, tenderness - Detailed Lower Extremity Exam Foot/Toes: Left amputation (great toe amputated all toes removed on right) - Routine Neurological Exam Present: alert, oriented X3 Results - Labs Result diagrams: 03/15/18 22:34 03/15/18 22:34 Abnormal lab results 03/15/18 03/15/1818 Range/Units 14:10 14:18 14:18 WBC 25.8 H (4.0-11.0) th/mm3 MCHC (32.0-36.0) % Neut % (Auto) 91.7 H (16.0-70.0) % Lymph % (Auto) 2.4 L (9.0-44.0) % Neut # (Auto) 23.7 H (1.8-7.7) th/mm3 Lymph # (Auto) 0.6 L (1.0-4.8) th/mm3 [place] # (Auto) 1.4 H (0.0-0.9) th/mm3 APTT 32.8 H (24.3-30.1) sec ABG pH (7.380-7.420) ABG pCO2 (38-42) mmHg Sodium 135 L (136-145) meq/L Chloride 95 L (98-107) meq/L BUN 26 H (7-18) mg/dL Creatinine 4.49 H (0.50-1.00) mg/dL Estimated GFR 12 L (>89) mL/min POC Glucose (68-110) mg/dl Random Glucose 127 H (74-106) mg/dL AST 13 L (15-37) U/L Total Protein 8.9 H (6.4-8.2) g/dL 03/15/18 03/15/18 03/16/18 Range/Units 22:34 22:34 07:43 WBC 16.6 H (4.0-11.0) th/mm3 MCHC 30.9 L (32.0-36.0) % Neut % (Auto) 88.8 H (16.0-70.0) % Lymph % (Auto) 4.4 L (9.0-44.0) % Neut # (Auto) 14.7 H (1.8-7.7) th/mm3 Lymph # (Auto) 0.7 L (1.0-4.8) th/mm3 [place] # (Auto) 1.0 H (0.0-0.9) th/mm3 APTT (24.3-30.1) sec ABG pH (7.380-7.420) ABG pCO2 (38-42) mmHg Sodium (136-145) meq/L Chloride 97 L (98-107) meq/L BUN 33 H (7-18) mg/dL Creatinine 5.37 H (0.50-1.00) mg/dL Estimated GFR 10 L (>89) mL/min POC Glucose 65 L (68-110) mg/dl Random Glucose (74-106) mg/dL AST (15-37) U/L Total Protein (6.4-8.2) g/dL 03/16/18 03/16/18 Range/Units 09:03 09:54 WBC (4.0-11.0) th/mm3 MCHC (32.0-36.0) % Neut % (Auto) (16.0-70.0) % Lymph % (Auto) (9.0-44.0) % Neut # (Auto) (1.8-7.7) th/mm3 Lymph # (Auto) (1.0-4.8) th/mm3 [place] # (Auto) (0.0-0.9) th/mm3 APTT (24.3-30.1) sec ABG pH 7.31 L (7.380-7.420) ABG pCO2 52 H* (38-42) mmHg Sodium (136-145) meq/L Chloride (98-107) meq/L BUN (7-18) mg/dL Creatinine (0.50-1.00) mg/dL Estimated GFR (>89) mL/min POC Glucose 233 H (68-110) mg/dl Random Glucose (74-106) mg/dL AST (15-37) U/L Total Protein (6.4-8.2) g/dL Short CBC 03/15/18 03/15/18 Range/Units 14:10 22:34 WBC 25.8 H 16.6 H (4.0-11.0) th/mm3 Hgb 12.9 12.2 (11.6-15.3) gm/dL Hct 39.3 39.4 (35.0-46.0) % Plt Count 366 360 (150-450) th/mm3 BMP 03/15/18 03/15/18 14:18 22:34 Sodium 135 L 136 Potassium 3.6 3.8 Chloride 95 L 97 L Carbon Dioxide 25.2 25.6 BUN 26 H 33 H Creatinine 4.49 H 5.37 H Calcium 10.0 9.4 Liver Function 03/15/18 Range/Units 14:18 Total Bilirubin 0.4 (0.2-1.0) mg/dL AST 13 L (15-37) U/L ALT 16 (10-53) U/L Alkaline Phosphatase 72 (45-117) U/L Albumin 3.4 (3.4-5.0) g/dL - Imaging Impressions Abdomen/Pelvis CT 03/15/18 13:55 CONCLUSION: 1. Stable CT scan of the abdomen and pelvis compared to the recent prior study. No new or significant changes. Chest X-Ray 03/16/18 00:00 CONCLUSION: No acute cardiopulmonary disease. Stents overlie the left axilla. Abdomen X-Ray 03/16/18 10:14 CONCLUSION: Unremarkable abdomen. Caprini VTE Risk Assessment Caprini VTE Risk Assessment: No/Low Risk (score <= 1) (pt on heparin and asa) Caprini Risk Assessment Model: Point Value = 1 Point Value = 2 Point Value = 3 Point Value = 5 Age 41-60 Minor surgery BMI > 25 kg/m2 Swollen legs Varicose veins or History of unexplained or recurrent spontaneous Oral contraceptives or hormone replacement Sepsis (< 1 month) Serious lung disease, including pneumonia (< 1 month) Abnormal pulmonary function Acute myocardial infarction Congestive heart failure (< 1 month) History of inflammatory bowel disease Medical patient at bed rest Age 61-74 Arthroscopic surgery Major open surgery (> 45 min) Laparoscopic surgery (> 45 min) Malignancy Confined to bed (> 72 hours) Immobilizing plaster cast Central venous access Age >= 75 History of VTE Family history of VTE Factor V Leiden Prothrombin [id number] Lupus anticoagulant Anticardiolipin antibodies Elevated serum homocysteine Heparin-induced thrombocytopenia Other congenital or acquired thrombophilia Stroke (< 1 month) Elective arthroplasty Hip, pelvis, or leg fracture Acute spinal cord injury (< 1 month) Prophylaxis Regimen: Total Risk Factor Score Risk Level Prophylaxis Regimen 0-1 Low Early ambulation 2 Moderate Order ONE of the following: *Sequential Compression Device (SCD) *Heparin 5000 units SQ BID 3-4 Higher Order ONE of the following medications: *Heparin 5000 units SQ TID *Enoxaparin/Lovenox 40 mg SQ daily (WT < 150 kg, CrCl > 30 mL/min) *Enoxaparin/Lovenox 30 mg SQ daily (WT < 150 kg, CrCl > 10-29 mL/min) *Enoxaparin/Lovenox 30 mg SQ BID (WT < 150 kg, CrCl > 30 mL/min) AND/OR *Sequential Compression Device (SCD) 5 or more Highest Order ONE of the following medications: *Heparin 5000 units SQ TID (Preferred with Epidurals) *Enoxaparin/Lovenox 40 mg SQ daily (WT < 150 kg, CrCl > 30 mL/min) *Enoxaparin/Lovenox 30 mg SQ daily (WT < 150 kg, CrCl > 10-29 mL/min) *Enoxaparin/Lovenox 30 mg SQ BID (WT < 150 kg, CrCl > 30 mL/min) AND *Sequential Compression Device (SCD) Assessment and Plan - Assessment (1) Diabetes 1.5, managed as type 1 Code(s): E10.9 - Type 1 diabetes mellitus without complications Status: Acute (2) Abdominal pain Code(s): R10.9 - Unspecified abdominal pain Status: Acute Plan: add protonix from home meds (3) End-stage renal disease on hemodialysis Code(s): N18.6 - End stage renal disease; Z99.2 - Dependence on renal dialysis Status: Acute Plan: careful hydration and renal consult had hypotension this am resolved with fluids and sugar - Assessment and Plan stabilize fluid balance and sugars has had previous ischemic bowel issues but ct neg last pm and abd pain is upper not lower H&P: Quality - VTE Contraindication No VTE Prophylaxis: Not indicated Deep Vein Thrombosis/Pulmonary Embolism Present on Admission: No (2) Abdominal pain Qualifiers: Abdominal location: upper abdomen, unspecified Qualified Code(s): R10.10 - Upper abdominal pain, unspecified
[2018-03-16] MEDS ORDERED: DOPamine 400 MG/250 ML Premix 400 MG/250 ML BAG IV.CONT ONE (12:14)
[2018-03-16] MEDS: DOPamine 800 MG/500 ML Premix 800 MG/500 ML PLAST..BAG IV.CONT PRN ×2 (12:15→23:08)
--- NOTE | 2018-03-16 12:58 | P.CONCC ---
History of Present Illness Primary Care Provider: UNKNOWN Family Provider: Ria Goetz Chief Complaint: Nausea, decreased appetite. History of Present Illness: is a 57 y/o AAF with complains of abdominal pain, nausea, poor appetite , generalized malaise and weakness of 3 days duration. Patient reports she was sent from a alf for low blood pressure. Patient reports cramping pain localized to the upper abdomen on admission which is now better and reports it as being intermittent. She reports constipation and no BM for several days prior to admission despite an aggressive bowel regimen. Patient states that she currently has nausea and decreaed appetite but no vomiting and denies any diarrhea. Patient reports prior h.o GERD and gastritis and reports pain is worse upon eating. Patient is HD dependent using a Permacath in her Right groin. 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 Patient also reports being on peritoneal dialysis in past and there is records of possible peritonitis related to PD catheter. She does not make much urine. Her last HD session was on 03/15/18. She has COPD,Morbid Obesity, CHF and sleep apnea and is on Oxygen at baseline. She has been told to wear a CPAP machine for sleep apnea at night but she does not like wearing it so she has not been using it. Patient developed worsening hypotension this morning with systolic blood pressure in the 60s for which a rapid response was called. Patient was evaluated by ID and transferred to the ICU. She received a 500 cc NS bolus on the floor. Critical care consult was requested for hypotension. I spoke with Dr. Cyrus Blas who placed her last dialysis catheter and he tells me that patient usually runs systolic blood pressure in the 80s all the time. When I evaluated the patient following her arrival to the CVICU she was laying in bed and appeared comfortable not in any acute distress. Accurate blood pressure readings have been a challenge as patient has AV fistulas in both upper extremities and nurses have been attempting obtaining blood pressure in the legs. Patient denies any chest pain or shortness of breath. She denies any chills currently. She did complain of some nausea vomiting 4 days prior to presentation. She denies any melena or rectal bleeding or diarrhea. Patient was already evaluated by ID and has been started on empiric antibiotics with suspicion for hemodialysis catheter related bacteremia/sepsis. Review of Systems All other systems reviewed negative except as stated in HPI Review of Systems per HPI PMFSH - History History Provided By: Patient - Medical History Medical History: Medical History (Last Updated 03/16/18 @ 11:32 by Bryan Bustos DO) Hemodialysis access, AV graft (Acute) ESRD (end stage renal disease) on dialysis (Acute) HBP (high blood pressure) (Acute) Diabetes (Acute) - Surgical History Surgical History: Surgical History (Last Updated 03/16/18 @ 11:32 by Bryan Bustos DO) Hx of appendectomy (Acute) - Tobacco History Second Hand Smoke Exposure: Yes Tobacco Use In Past 30 Days: No Smoking Status: Never smoker Tobacco Type: Cigarettes - Alcohol History How Often Do You Have a Drink Containing Alcohol: Never - Substance Use History Substance History: No History of Abuse - Travel History Recent Travel in the [place] Within the Last 8 Weeks: No Recent Travel Out of the Country Within the Last 8 Weeks: No - Immunization History Tetanus Immunization: <5 Years Hx Influenza Vaccine This Season: Yes Medications and Allergies Active Medications: Active Medications Acetaminophen (Tylenol) 650 mg PO UNSCH PRN PRN Reason: SEE LABEL COMMENTS Clonidine HCl (Catapres) 0.1 mg PO UNSCH PRN PRN Reason: SEE LABEL COMMENTS Dextrose (D50w Vial) 50 ml IV.PUSH UNSCH PRN PRN Reason: PER HYPOGLYCEMIA PROTOCOL Diphenhydramine HCl (Benadryl) 25 mg PO UNSCH PRN PRN Reason: SEE LABEL COMMENTS Gelatin (Gelfoam 12 Mm/7 Mm Topical) 1 foam TOPICAL PRN PRN PRN Reason: help stop bleeding from site Gentamicin Sulfate (Gentamicin Inj) 20 mg OTHER WITH DIALYSIS PRN PRN Reason: Dwell Gentamycin Lock Glucagon (Glucagon Inj) 1 mg OTHER PRN PRN PRN Reason: for Hypoglycemia Protocol Heparin Sodium (Porcine) (Heparin Inj) 8,000 units IV.FLUSH WITH DIALYSIS PRN PRN Reason: for machine prime Heparin Sodium (Porcine) (Heparin Inj) 1,000 units OTHER WITH DIALYSIS PRN PRN Reason: Dwell Heparin to Fill Catheter Sodium Chloride (1/2 Normal Saline Inj) 1,000 mls @ 100 mls/hr IV.CONT .Q10H GEOVANNY Last Admin: 03/16/18 00:29 Dose: 75 mls/hr Albumin Human (Flexbumin 25% Inj) 100 mls @ 60 mls/hr IV.SIG WITH DIALYSIS PRN PRN Reason: hypotension / volume replace Sodium Chloride (Ns Inj) 1,000 mls @ 0 mls/hr OTHER .Q0M PRN PRN Reason: for prime and rinse back Sodium Chloride (Ns Inj) 1,000 mls @ 200 mls/hr OTHER .Q5H PRN PRN Reason: for dialyzer flush PRN Sodium Chloride (Ns Inj) 1,000 mls @ 0 mls/hr IV.CONT .Q0M PRN PRN Reason: hypotension / volume replace Cefepime HCl 1,000 mg/ Sodium (Chloride) 100 mls @ 200 mls/hr IV.SIG Q24H GEOVANNY Daptomycin 1,400 mg/ Sodium (Chloride) 100 mls @ 200 mls/hr IV.SIG Q48H GEOVANNY Dopamine HCl/Dextrose (Dopamine 800 Mg/500 Ml Premix) 800 mg in 500 mls @ 16.737 mls/hr IV.CONT TITRATE PRN; Protocol PRN Reason: Per Protocol Insulin Aspart (Novolog Insulin Suppl Scale Inj) 0 unit SQ ACHS GEOVANNY; Protocol Mannitol (Mannitol Inj) 12.5 gm IV.PUSH PRN PRN PRN Reason: hypotension / volume replace Nitroglycerin (Nitrostat Sl) 0.4 mg SL Q5M PRN PRN Reason: CHEST PAIN Ondansetron HCl (Zofran Odt) 4 mg PO UNSCH PRN PRN Reason: NAUSEA OR VOMITING Pantoprazole Sodium (Protonix) 40 mg PO BID GEOVANNY Sodium Chloride (Ns Flush) 2 ml IV.FLUSH BID [facility] Last Admin: 03/16/18 00:34 Dose: 2 ml Sodium Chloride (Ns Flush) 2 ml IV.FLUSH PRN PRN PRN Reason: FLUSH AFTER USING IV ACCESS Sodium Chloride (Ns Flush) 5 ml IV.FLUSH PRN PRN PRN Reason: flush each lumen during HD Terbutaline Sulfate (Brethine Inj) 1 mg SQ ONCE PRN PRN Reason: Extravasation Allergies Allergy/AdvReac Type Severity Reaction Status Date / Time levofloxacin Allergy Severe Anaphylaxis Verified 03/15/18 13:35 Home Medications Medication Instructions Recorded Confirmed Type B complex-vitamin C-folic acid 1 tab PO DAILY 03/15/18 03/15/18 History [Nephro-Devendra] aspirin 81 mg PO DAILY 03/15/18 03/15/18 History atorvastatin [Lipitor] 10 mg PO HS 03/15/18 03/15/18 History bupropion HCl 300 mg PO DAILY 03/15/18 03/15/18 History calcium acetate 2,668 mg PO TIDWM 03/15/18 03/15/18 History calcium carbonate 1,000 mg PO DAILY 03/15/18 03/15/18 History calcium carbonate [Calcium 500] 2,000 mg PO Q8HR 03/15/18 03/15/18 History cholecalciferol (vitamin D3) 5,000 unit PO DAILY 03/15/18 03/15/18 History [Vitamin D3] collagenase clostridium histo. 1 applic TOPICAL DAILY 03/15/18 03/15/18 History [Santyl] cyclobenzaprine 10 mg PO BID 03/15/18 03/15/18 History gabapentin 300 mg PO HS 03/15/18 03/15/18 History gelatin absorbable [Gelfoam] 1 applicatio TOPICAL DAILY PRN 03/15/18 03/15/18 History insulin asp prt-insulin aspart 8 unit SUB-Q BID 03/15/18 03/15/18 History [Novolog Mix 70-30 U-100 Insuln] ipratropium-albuterol [Combivent 2 puff INHALATION BID 03/15/18 03/15/18 History Respimat] levothyroxine 50 mcg PO DAILY 03/15/18 03/15/18 History midodrine 10 mg PO TID 03/15/18 03/15/18 History pantoprazole [Protonix] 40 mg PO DAILY 03/15/18 03/15/18 History silver sulfadiazine [Silvadene] 1 applic TOPICAL BID 03/15/18 03/15/18 History trazodone 100 mg PO HS 03/15/18 03/15/18 History Physical Exam Vital signs: Vital Signs 03/15/18 13:42 03/15/18 13:45 03/15/18 15:11 Temperature 97.7 F 97.8 F Pulse Rate 105 H 102 H 104 H Respiratory Rate 18 20 Blood Pressure 141/96 H 133/80 Pulse Oximetry 97 96 03/15/18 17:00 03/15/18 18:05 03/15/18 20:00 Temperature 97.9 F 97.8 F 97.6 F Pulse Rate 94 H 98 H 100 H Respiratory Rate 18 18 18 Blood Pressure 100/55 L 98/63 L 88/53 L Pulse Oximetry 97 100 96 03/16/18 00:00 03/16/18 04:00 03/16/18 08:00 Temperature 98.3 F 98.5 F 98.8 F Pulse Rate 90 97 H 99 H Respiratory Rate 18 18 12 Blood Pressure 84/56 L 101/62 67/33 L Pulse Oximetry 93 L 62 L 93 L 03/16/18 08:30 03/16/18 09:20 03/16/18 09:51 Temperature 98.0 F 97.9 F Pulse Rate 93 H 92 H Respiratory Rate 16 16 Blood Pressure 60/32 L 99/52 L 80/42 L Pulse Oximetry 95 03/16/18 11:46 Temperature Pulse Rate Respiratory Rate Blood Pressure Pulse Oximetry 95 Intake & Output 03/15/18 03/16/18 03/16/18 18:59 06:59 18:59 Intake Total 500 / 500 Balance 500 / 500 Weight 148.778 kg 148.77 kg Intake: IV 500 / 500 NS Inj 500 ML @ Wide Open IV. 500 / 500 SIG BOLUS ONE Rx#:[id number] Other: Date of Last Bowel Movement 03/16/18 03/16/18 Weight On Admission 148.77 kg Narrative: Morbidly obese Not in acute distress. Permacath in RT groin Peripheral IV site ok. Skin folds examined with no obvious infection Unstageable skin ulcers in buttock area. Rt foot 5 digits surgically amputated. Left foot great toe amputated. Scars on right hand Scars on bilateral UE at prior fistulas: no bruit or thrill. - Routine HEENT Exam Head: Present: normocephalic, atraumatic Eye: Present: EOMI, PERRL ENT: Present: mucous membranes moist - Routine Neck Exam Present: supple - Routine Respiratory Exam Present: CTA bilaterally - Routine Cardiovascular Exam Present: RRR - Routine Abdominal Exam Present: soft Assessment and Plan - Assessment and Plan Plan: Severe sepsis Hypotension Patient has baseline hypotension was on Midodrin. Possible right groin permacath infection related bacteremia suspected Possible ileus secondary to constipation given nausea vomiting. 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 difficile colitis, bilateral upper extremity AV fistula infections, PD catheter related infections. Diabetes mellitus ESRD on hemodialysis plan: Follow neuro status. Cardiovascular: 500 cc normal saline bolus given earlier. Continue Midrin. Dopamine gtt. for hypotension ordered. Patient runs baseline systolic blood pressure in the 80s per nephrology. Pulmonary: Supplemental O2 as needed. Bronchodilators as needed. GI/liver: P.o. diet as tolerated. Follow-up KUB. Renal/: Strict intake output, monitor and replete electrolytes, follow BUN/ creatinine. Hemodialysis per renal ID: Follow-up cultures. ID consult noted. On empiric antibiotics with IV daptomycin and cefepime. Endocrine: Watch for hyperglycemia, SSI for glycemic control if needed. Heme: Follow CBC and coags Prophylaxis: Continues heparin for DVT prophylaxis Condition critical Discussed with ID, discussed with Dr. Michael Blas. Time spent on critical care excluding procedures 50 minutes
[2018-03-16] MEDS: DAPTOMYCIN IV.SIG SCH (13:00)
[2018-03-16] MEDS: SODIUM CHLOR 0.9% IV.SIG SCH (13:00)
[2018-03-16 13:41] LABS: Alanine Aminotransferase 15 U/L (10-53); Albumin 3.1 g/dL (3.4-5.0); Anion Gap 14 meq/L (5-15); Aspartate Aminotransferase 10 U/L (15-37); Blood Urea Nitrogen 38 mg/dL (7-18); Calcium 8.7 mg/dL (8.5-10.1); Carbon Dioxide 19.5 meq/L (21.0-32.0); Chloride 100 meq/L (98-107); Glomerular Filtration Rate 9 mL/min (>89); Glucose,Random 86 mg/dL (74-106); Potassium 3.8 meq/L (3.5-5.1); Sodium 133 meq/L (136-145)
[2018-03-16 13:43] LABS: Alkaline Phosphatase 64 U/L (45-117); Total Protein 8.6 g/dL (6.4-8.2)
--- NOTE | 2018-03-16 16:50 | MB ---
cc: Tahir Blas MD DATE: 03/16/2018 REASON FOR CONSULTATION: End-stage renal disease management. HISTORY OF PRESENT ILLNESS: This is a 57-year-old female with history of end-stage renal disease, on hemodialysis Mondays, Wednesdays and Fridays. She is followed up as an outpatient with Dr. Villagran. The patient apparently had a partial dialysis treatment yesterday and then had some feelings of nausea. She has had some upper esophageal and abdominal discomfort for several days now, with decreased p.o. intake. In addition, the patient has a history of chronic hypotension and has been on midodrine. She has had multiple admissions here in the past where she was given pressors and maintains a baseline systolic blood pressure between the 70s and 80s for the patient. The patient was admitted here and had a systolic blood pressure in the 60s. She was started on pressors and evaluated with ID as well. She complained of some abdominal discomfort with acid reflux symptoms. The patient also has a previous history of morbid obesity, CHF, and sleep apnea. A HaliCAT was called when her systolic blood pressure was found to be in the 60s earlier today. Now, she is resting in the ICU and her systolic blood pressure has improved to the 80s on pressor support. The patient is awake and alert, however, somewhat fatigued and somewhat lethargic. She was seen with ID as well and with a concern for possible sepsis, she was started on empiric cefepime as well as daptomycin as cultures are pending. The patient has a right femoral catheter which is one of her last possible sites for access and she has been dependent on this femoral catheter for several years now. There was a concern for possible catheter infection as well. At this time, the patient is resting in bed. Nephrology was consulted for further evaluation. REVIEW OF SYSTEMS: The patient denies any fevers, chills; however, has had decreased p.o. intake and has been lethargic. The patient has had some nausea. No vomiting, no diarrhea; however, has had some constipation. No chest pains, no shortness of breath over baseline; however, does take home oxygen. REVIEW OF SYSTEMS: Otherwise negative. PAST MEDICAL HISTORY: Includes ESRD, hypotension, diabetes, COPD. On dialysis Mondays, Wednesdays and Fridays; followed up with Dr. Sparkle as an outpatient for end-stage renal disease management. Also, history of duodenal ulcer, previous hepatitis C, GERD, anxiety, CAD, CHF, previous sepsis, previous C. difficile, multiple failed AV accesses, previous failed PD catheter, osteomyelitis of the lower extremity, sacral decubitus, DVTs, hyperparathyroidism, bronchitis, hypothyroidism, dyslipidemia and peripheral neuropathy. PAST SURGICAL HISTORY: Includes multiple failed upper extremity AV access attempts, PD catheter with failure due to peritonitis, right foot digit amputations with forefoot still intact, left great toe amputation, right hand surgery for infection, multiple revisions of AV access and right femoral tunneled catheter for dialysis access. SOCIAL HISTORY: Previous tobacco use. No alcohol or drug use. FAMILY HISTORY: Noncontributory. PHYSICAL EXAMINATION: GENERAL: At the time of evaluation, blood pressure 80/42, pulse 92, temperature 97.9. GENERAL: Awake, lethargic, no apparent distress. NECK: Soft, supple. CARDIAC: Regular rate and rhythm. PULMONARY: Decreased breath sounds at bases, otherwise clear. ABDOMEN: Soft, obese, nontender and nondistended. EXTREMITIES: No edema. The patient with a right femoral tunneled dialysis catheter in place. LABORATORY FINDINGS: White count 16.6, hemoglobin 12.2, hematocrit 39.4 with platelet count of 360. INR 1.1. Sodium 133, potassium 3.8, chloride 100, bicarbonate 19.5, BUN 38, creatinine 5.9, glucose 99. Lactic acid level of 0.8, AST 10, ALT 15, alkaline phosphatase 64. ASSESSMENT AND PLAN: 1. End-stage renal disease on hemodialysis Sunday, Sunday and Sunday. The patient had last treatment done on Sunday. The patient had treatment cut slightly short due to hypotension and abdominal discomfort. Electrolytes and volume status are stable at this point. We will plan for dialysis on Sunday, unless otherwise indicated, and we will continue on hemodialysis Sunday, Sunday, Sunday here. Of note, the patient has right femoral dialysis catheter. This is one of the last possible access sites for the patient. If there is any concern for any catheter infection, then we recommend that this catheter be exchanged over a guidewire; however, there are no signs of any overt catheter infection at this point and it appears much of her symptoms are gastrointestinal in nature. Continue to monitor at this time. 2. Abdominal pain. The patient has history of a previous duodenal ulcer. Continue to monitor closely. She may be having some acid reflux symptoms as well. Continue to follow up with primary team. There is a concern for abdominal ischemia in the setting of hypotension; however, her lactic acid level was within normal limits. Continue to monitor closely. 3. Chronic obstructive pulmonary disease. The patient's oxygen status is stable. She has been on home oxygen. Continue to monitor. 4. Hypotension. The patient has had chronic hypotension and has been on midodrine. She likely has autonomic dysfunction and has been on dialysis for several years with chronic hypotension. Continue to monitor closely. Avoid aggressive IV fluids as tolerated. The patient is on pressor support at this time. I recommend to wean pressors as possible. Again, her baseline systolic blood pressure has been in the 80s-70s per the patient. 5. Questionable sepsis. The patient was seen with Infectious Disease. She has been empirically started on cefepime as well as daptomycin in the setting of hypotension. If there is a concern for a catheter infection, this may be exchanged over a guidewire. Avoid full removal of catheter as possible as there are limited future sites for another possible catheter placement. Continue to followup cultures and follow up with ID. MD RACHEL Hernandez/CORTES , 04:16 PM , 04:49 PM TIGRE
[2018-03-16 17:32] LABS: Baso % (Auto) 0.3 % (0.0-2.0); Eos # (Auto) 0.2 th/mm3 (0.0-0.4); Eos % (Auto) 1.7 % (0.0-4.0); Hematocrit 39.2 % (35.0-46.0); Hemoglobin 11.9 gm/dL (11.6-15.3); Lymph # (Auto) 0.7 th/mm3 (1.0-4.8); Lymph % (Auto) 5.5 % (9.0-44.0); Mean Corpuscular Hemoglobin 28.4 pg (27.0-34.0); Mean Corpuscular Volume 93.3 fL (80.0-100.0); Mean Platelet Volume 7.2 fL (7.0-11.0); Mono % (Auto) 7.6 % (0.0-8.0); Neut # (Auto) 11.3 th/mm3 (1.8-7.7); Neut % (Auto) 84.9 % (16.0-70.0); Platelet Count 354 th/mm3 (150-450); Red Cell Distribution Width 15.4 % (11.6-17.2); White Blood Count 13.4 th/mm3 (4.0-11.0)
[2018-03-16 17:38] LABS: Mean Corpuscular HGB Conc 30.4 % (32.0-36.0)
[2018-03-16] MEDS: Insulin NovoLOG Aspart Correctional Sugar Inj SQ SCH ×3 (17:48→20:48)
--- NOTE | 2018-03-16 18:21 | ECG ---
Date Performed: 03/16/2018 Time Performed: 13:28:04 PTAGE: 57 years EKG: Probable sinus tachycardia Lateral ST-T changes are nonspecific Low QRS voltages in precord ial leads Borderline ECG PREVIOUS TRACING : 02/27/2018 16.10 Compared to previous tracing, heart rate has increased. DOCTOR: Vienet Villa Interpretating Date/Time 03/16/2018 18:19:48
[2018-03-16 22:21] LABS: Albumin 2.7 g/dL (3.4-5.0); Anion Gap 12 meq/L (5-15); Aspartate Aminotransferase 10 U/L (15-37); Blood Urea Nitrogen 45 mg/dL (7-18); Calcium 8.7 mg/dL (8.5-10.1); Carbon Dioxide 23.2 meq/L (21.0-32.0); Chloride 100 meq/L (98-107); Glomerular Filtration Rate 8 mL/min (>89); Glucose,Random 132 mg/dL (74-106); Potassium 3.8 meq/L (3.5-5.1); Sodium 135 meq/L (136-145)
[2018-03-16 22:22] LABS: Alanine Aminotransferase 12 U/L (10-53)
[2018-03-16 22:23] LABS: Alkaline Phosphatase 56 U/L (45-117); Total Protein 7.6 g/dL (6.4-8.2)
[2018-03-17] MEDS ORDERED: DOPamine 400 MG/250 ML Premix 400 MG/250 ML BAG IV.CONT ONE ×2 (02:10→11:14)
[2018-03-17] MEDS: Insulin NovoLOG Aspart Correctional Sugar Inj SQ SCH ×4 (10:28→21:52)
--- NOTE | 2018-03-17 10:39 | P.PNCC ---
Subjective Subjective Remarks/Hospital Course: 03/16: is a 57 y/o AAF with complains of abdominal pain, nausea, poor appetite, generalized malaise and weakness of 3 days duration. Patient reports she was sent from a senior living for low blood pressure. Patient reports cramping pain localized to the upper abdomen on admission which is now better and reports it as being intermittent. She reports constipation and no BM for several days prior to admission despite an aggressive bowel regimen. Patient states that she currently has nausea and decreaed appetite but no vomiting and denies any diarrhea. Patient reports prior h.o GERD and gastritis and reports pain is worse upon eating. Patient is HD dependent using a Permacath in her Right groin. 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 Patient also reports being on peritoneal dialysis in past and there is records of possible peritonitis related to PD catheter. She does not make much urine. Her last HD session was on 03/15/18. She has COPD,Morbid Obesity, CHF and sleep apnea and is on Oxygen at baseline. She has been told to wear a CPAP machine for sleep apnea at night but she does not like wearing it so she has not been using it. Patient developed worsening hypotension this morning with systolic blood pressure in the 60s for which a rapid response was called. Patient was evaluated by ID and transferred to the ICU. She received a 500 cc NS bolus on the floor. Critical care consult was requested for hypotension. I spoke with Dr. Cyrus Blas who placed her last dialysis catheter and he tells me that patient usually runs systolic blood pressure in the 80s all the time. When I evaluated the patient following her arrival to the CVICU she was laying in bed and appeared comfortable not in any acute distress. Accurate blood pressure readings have been a challenge as patient has AV fistulas in both upper extremities and nurses have been attempting obtaining blood pressure in the legs. Patient denies any chest pain or shortness of breath. She denies any chills currently. She did complain of some nausea vomiting 4 days prior to presentation. She denies any melena or rectal bleeding or diarrhea. Patient was already evaluated by ID and has been started on empiric antibiotics with suspicion for hemodialysis catheter related bacteremia/sepsis. 03/17: Resting comfortably. Denies any chest pain or shortness of breath. On dopamine 5 mics per KG per minute. Objective Vital Signs / I&O: Vital Signs 03/16/18 11:35 03/16/18 11:46 03/16/18 15:00 Temperature 97.7 F 97.7 F Pulse Rate 68 68 Respiratory Rate 20 20 Blood Pressure 78/44 L 70/48 L Pulse Oximetry 96 95 96 03/16/18 19:00 03/16/18 19:30 03/16/18 20:00 Temperature 97.9 F Pulse Rate 96 H 94 H Respiratory Rate 16 Blood Pressure 89/50 L Pulse Oximetry 88 L 03/16/18 20:20 03/16/18 21:00 03/16/18 23:00 Temperature Pulse Rate 108 H Respiratory Rate 16 Blood Pressure Pulse Oximetry 95 98 03/16/18 23:05 03/16/18 23:15 03/17/18 03:00 Temperature 97.9 F Pulse Rate 83 94 H Respiratory Rate 16 Blood Pressure 95/49 L Pulse Oximetry 97 98 03/17/18 04:00 03/17/18 07:00 Temperature 97.7 F 98 F Pulse Rate 101 H 88 Respiratory Rate 14 16 Blood Pressure 110/52 L 87/49 L Pulse Oximetry 92 L 93 L Intake & Output 03/16/18 03/17/18 03/17/18 18:59 06:59 18:59 Intake Total 680 / 680 644 / 644 240 / 240 Output Total 0 / 0 0 / 0 Balance 680 / 680 644 / 644 240 / 240 Weight 128.8 kg Intake: IV 200 / 200 444 / 444 DOPamine 800 MG/500 ML Premix 444 / 444 800 mg In 500 ml @ 3 MCG/KG/MIN 16.737 mls/hr IV.CONT TITRATE PRN Rx#:[id number] Maxipime Inj 1,000 MG In NS Inj 100 / 100 100 ML @ 200 mls/hr IV.SIG Q24H GEOVANNY Rx#:[id number] Cubicin Inj 1,400 MG In NS Inj 100 / 100 100 ML @ 200 mls/hr IV.SIG Q48H GEOVANNY Rx#:[id number] Oral 480 / 480 200 / 200 240 / 240 Output: Urine 0 / 0 0 / 0 Other: Date of Last Bowel Movement 03/16/18 03/16/18 03/16/18 # Bowel Movements 0 Result Diagrams: 03/16/18 17:09 03/16/18 21:32 Imaging: ITS Impressions Abdomen/Pelvis CT 03/15/18 13:55 CONCLUSION: 1. Stable CT scan of the abdomen and pelvis compared to the recent prior study. No new or significant changes. Chest X-Ray 03/16/18 00:00 CONCLUSION: No acute cardiopulmonary disease. Stents overlie the left axilla. Abdomen X-Ray 03/16/18 10:14 CONCLUSION: Unremarkable abdomen. Objective Remarks: HEENT/Neuro: Pallor present, No icterus, tongue moist, MARIA ISABEL, Awake alert oriented 3, nonfocal grossly, moving all 4 extremities Neck: No JVD Chest/pulmonary: CTA bilaterally Cardiovascular: S1-S2 regular no gallop or murmur GI/abdomen: Soft, nontender, bowel sounds present Extremities: Warm bilaterally, no edema. Assessment and Plan - Assessment and Plan Plan: Severe sepsis Hypotension Patient has baseline hypotension was on Midodrin. Possible right groin permacath infection related bacteremia suspected Possible ileus secondary to constipation given nausea vomiting. 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 difficile colitis, bilateral upper extremity AV fistula infections, PD catheter related infections. Diabetes mellitus ESRD on hemodialysis plan: Follow neuro status. Cardiovascular: 500 cc normal saline bolus given earlier. Resumed Midodrine. Dopamine gtt. for hypotension. Patient runs baseline systolic blood pressure in the 80s per nephrology. Pulmonary: Supplemental O2 as needed. Bronchodilators as needed. GI/liver: P.o. diet as tolerated. Follow-up KUB. Renal/: Strict intake output, monitor and replete electrolytes, follow BUN/ creatinine. Hemodialysis per renal ID: Follow-up cultures. ID consult noted. On empiric antibiotics with IV daptomycin and cefepime. Endocrine: Watch for hyperglycemia, SSI for glycemic control if needed. Heme: Follow CBC and coags Prophylaxis: Continues heparin for DVT prophylaxis Condition critical Discussed with ID, discussed with Dr. Cyrus Blas. Time spent on critical care excluding procedures 30 minutes
--- NOTE | 2018-03-17 11:04 | P.PNFP ---
Subjective Interval history: transfered to [facility] last pm bp low now on dopamine drip awake alert comfrtable Results - Labs Result diagrams: 03/16/18 17:09 03/16/18 21:32 Abnormal lab results 03/16/18 03/16/18 03/16/18 Range/Units 13:10 16:56 17:09 WBC 13.4 H (4.0-11.0) th/mm3 MCHC 30.4 L (32.0-36.0) % Neut % (Auto) 84.9 H (16.0-70.0) % Lymph % (Auto) 5.5 L (9.0-44.0) % Neut # (Auto) 11.3 H (1.8-7.7) th/mm3 Lymph # (Auto) 0.7 L (1.0-4.8) th/mm3 [place] # (Auto) 1.0 H (0.0-0.9) th/mm3 Sodium 133 L (136-145) meq/L Carbon Dioxide 19.5 L (21.0-32.0) meq/L BUN 38 H (7-18) mg/dL Creatinine 5.96 H (0.50-1.00) mg/dL Estimated GFR 9 L (>89) mL/min POC Glucose 181 H (68-110) mg/dl Random Glucose (74-106) mg/dL AST 10 L (15-37) U/L Total Protein 8.6 H (6.4-8.2) g/dL Albumin 3.1 L (3.4-5.0) g/dL 03/16/18 03/16/18 03/17/18 Range/Units 20:44 21:32 04:04 WBC (4.0-11.0) th/mm3 MCHC (32.0-36.0) % Neut % (Auto) (16.0-70.0) % Lymph % (Auto) (9.0-44.0) % Neut # (Auto) (1.8-7.7) th/mm3 Lymph # (Auto) (1.0-4.8) th/mm3 [place] # (Auto) (0.0-0.9) th/mm3 Sodium 135 L (136-145) meq/L Carbon Dioxide (21.0-32.0) meq/L BUN 45 H (7-18) mg/dL Creatinine 6.82 H (0.50-1.00) mg/dL Estimated GFR 8 L (>89) mL/min POC Glucose 135 H 141 H (68-110) mg/dl Random Glucose 132 H (74-106) mg/dL AST 10 L (15-37) U/L Total Protein (6.4-8.2) g/dL Albumin 2.7 L (3.4-5.0) g/dL Short CBC 03/16/18 Range/Units 17:09 WBC 13.4 H (4.0-11.0) th/mm3 Hgb 11.9 (11.6-15.3) gm/dL Hct 39.2 (35.0-46.0) % Plt Count 354 (150-450) th/mm3 BMP 03/16/18 03/16/18 13:10 21:32 Sodium 133 L 135 L Potassium 3.8 3.8 Chloride 100 100 Carbon Dioxide 19.5 L 23.2 BUN 38 H 45 H Creatinine 5.96 H 6.82 H Calcium 8.7 8.7 Liver Function 03/16/18 03/16/18 Range/Units 13:10 21:32 Total Bilirubin 0.3 0.3 (0.2-1.0) mg/dL AST 10 L 10 L (15-37) U/L ALT 15 12 (10-53) U/L Alkaline Phosphatase 64 56 (45-117) U/L Albumin 3.1 L 2.7 L (3.4-5.0) g/dL - Imaging Impressions Abdomen X-Ray 03/16/18 10:14 CONCLUSION: Unremarkable abdomen. Physical Exam Vital signs: Vital Signs 03/16/18 11:35 03/16/18 11:46 03/16/18 15:00 Temperature 97.7 F 97.7 F Pulse Rate 68 68 Respiratory Rate 20 20 Blood Pressure 78/44 L 70/48 L Pulse Oximetry 96 95 96 03/16/18 19:00 03/16/18 19:30 03/16/18 20:00 Temperature 97.9 F Pulse Rate 96 H 94 H Respiratory Rate 16 Blood Pressure 89/50 L Pulse Oximetry 88 L 03/16/18 20:20 03/16/18 21:00 03/16/18 23:00 Temperature Pulse Rate 108 H Respiratory Rate 16 Blood Pressure Pulse Oximetry 95 98 03/16/18 23:05 03/16/18 23:15 03/17/18 03:00 Temperature 97.9 F Pulse Rate 83 94 H Respiratory Rate 16 Blood Pressure 95/49 L Pulse Oximetry 97 98 03/17/18 04:00 03/17/18 07:00 Temperature 97.7 F 98 F Pulse Rate 101 H 88 Respiratory Rate 14 16 Blood Pressure 110/52 L 87/49 L Pulse Oximetry 92 L 93 L Intake & Output 03/16/18 03/17/18 03/17/18 18:59 06:59 18:59 Intake Total 680 / 680 644 / 644 240 / 240 Output Total 0 / 0 0 / 0 Balance 680 / 680 644 / 644 240 / 240 Weight 128.8 kg Intake: IV 200 / 200 444 / 444 DOPamine 800 MG/500 ML Premix 444 / 444 800 mg In 500 ml @ 3 MCG/KG/MIN 16.737 mls/hr IV.CONT TITRATE PRN Rx#:[id number] Maxipime Inj 1,000 MG In NS Inj 100 / 100 100 ML @ 200 mls/hr IV.SIG Q24H GEOVANNY Rx#:[id number] Cubicin Inj 1,400 MG In NS Inj 100 / 100 100 ML @ 200 mls/hr IV.SIG Q48H GEOVANNY Rx#:[id number] Oral 480 / 480 200 / 200 240 / 240 Output: Urine 0 / 0 0 / 0 Other: Date of Last Bowel Movement 03/16/18 03/16/18 03/16/18 # Bowel Movements 0 - Constitutional no acute distress - Routine HEENT Exam Head: Present: normocephalic, atraumatic Eye: Present: EOMI, PERRL - Routine Neck Exam Present: supple - Routine Respiratory Exam Present: CTA bilaterally - Routine Cardiovascular Exam Present: RRR - Routine Abdominal Exam Present: soft, normoactive bowel sounds Comments: obese - Routine Extremities Exam Present: edema Comments: multiple toes amputated - Routine Neurological Exam Present: alert, oriented X3 Assessment and Plan - Assessment (1) Diabetes 1.5, managed as type 1 Code(s): E10.9 - Type 1 diabetes mellitus without complications Status: Acute (2) Abdominal pain Code(s): R10.9 - Unspecified abdominal pain Status: Acute Plan: add protonix from home meds (3) End-stage renal disease on hemodialysis Code(s): N18.6 - End stage renal disease; Z99.2 - Dependence on renal dialysis Status: Acute Plan: careful hydration and renal consult had hypotension this am resolved with fluids and sugar - Assessment and Plan stabilize fluid balance and sugars has had previous ischemic bowel issues but ct neg last pm and abd pain is upper not lower (2) Abdominal pain Qualifiers: Abdominal location: upper abdomen, unspecified Qualified Code(s): R10.10 - Upper abdominal pain, unspecified
--- NOTE | 2018-03-17 12:28 | P.PNNP ---
Subjective Interval history: no acute issues Remains on pressors, feels better and eating acid reflux symptoms Physical Exam Vital signs: Vital Signs 03/16/18 15:00 03/16/18 19:00 03/16/18 19:30 Temperature 97.7 F 97.9 F Pulse Rate 68 96 H 94 H Respiratory Rate 20 16 Blood Pressure 70/48 L 89/50 L Pulse Oximetry 96 03/16/18 20:00 03/16/18 20:20 03/16/18 21:00 Temperature Pulse Rate Respiratory Rate 16 Blood Pressure Pulse Oximetry 88 L 95 98 03/16/18 23:00 03/16/18 23:05 03/16/18 23:15 Temperature 97.9 F Pulse Rate 108 H 83 Respiratory Rate 16 Blood Pressure 95/49 L Pulse Oximetry 97 98 03/17/18 03:00 03/17/18 04:00 03/17/18 07:00 Temperature 97.7 F 98 F Pulse Rate 94 H 101 H 88 Respiratory Rate 14 16 Blood Pressure 110/52 L 87/49 L Pulse Oximetry 92 L 93 L Intake & Output 03/16/18 03/17/18 03/17/18 18:59 06:59 18:59 Intake Total 680 / 680 644 / 644 240 / 240 Output Total 0 / 0 0 / 0 Balance 680 / 680 644 / 644 240 / 240 Weight 128.8 kg Intake: IV 200 / 200 444 / 444 DOPamine 800 MG/500 ML Premix 444 / 444 800 mg In 500 ml @ 3 MCG/KG/MIN 16.737 mls/hr IV.CONT TITRATE PRN Rx#:[id number] Maxipime Inj 1,000 MG In NS Inj 100 / 100 100 ML @ 200 mls/hr IV.SIG Q24H GEOVANNY Rx#:[id number] Cubicin Inj 1,400 MG In NS Inj 100 / 100 100 ML @ 200 mls/hr IV.SIG Q48H GEOVANNY Rx#:[id number] Oral 480 / 480 200 / 200 240 / 240 Output: Urine 0 / 0 0 / 0 Other: Date of Last Bowel Movement 03/16/18 03/16/18 03/16/18 # Bowel Movements 0 - Constitutional no acute distress - Routine HEENT Exam Head: Present: normocephalic Eye: Present: EOMI ENT: Present: mucous membranes moist - Routine Neck Exam Present: supple - Routine Respiratory Exam Present: CTA bilaterally - Routine Cardiovascular Exam Present: RRR - Routine Abdominal Exam Present: soft - Routine Skin Exam Present: intact - Routine Neurological Exam Present: alert, oriented X3 - Detailed Neurological Exam: Coma Scale Eye Opening: Spontaneous - Routine Psychiatric Exam Present: normal affect Assessment and Plan - Assessment (1) ESRD (end stage renal disease) on dialysis Code(s): N18.6 - End stage renal disease; Z99.2 - Dependence on renal dialysis Status: Acute Plan: 1. End-stage renal disease on hemodialysis MWF HD, last HD Sunday outpatient. Volume status, electrolytes stable. HD ordered for Sunday. Of note, the patient has right femoral dialysis catheter. This is one of the last possible access sites for the patient. If there is any concern for any catheter infection, then we recommend that this catheter be exchanged over a guidewire; however, there are no signs of any overt catheter infection at this point and it appears much of her symptoms are gastrointestinal in nature. Continue to monitor at this time. 2. Abdominal pain. Ongoing acid reflux symptoms, however feeling better and tolerating diet. Continue to monitor. 3. Chronic obstructive pulmonary disease. The patient's oxygen status is stable. She has been on home oxygen. Continue to monitor. 4. Hypotension. The patient has had chronic hypotension and has been on midodrine. She likely has autonomic dysfunction and has been on dialysis for several years with chronic hypotension. Basline SBP 80s per patient. Wean pressors as tolerated. 5. Questionable sepsis. Seen with ID. She has been empirically started on cefepime as well as daptomycin in the setting of hypotension. If there is a concern for a catheter infection, this may be exchanged over a guidewire. Continue to followup cultures and follow up with ID. Cultures negative to date (2) Abdominal pain Code(s): R10.9 - Unspecified abdominal pain Status: Acute Qualifiers: Abdominal location: upper abdomen, unspecified Qualified Code(s): R10.10 - Upper abdominal pain, unspecified (3) Diabetes Code(s): E11.9 - Type 2 diabetes mellitus without complications Status: Acute
[2018-03-17] MEDS: Calcium Acetate 667 MG Capsule PO SCH ×2 (16:27→18:14)
[2018-03-18] MEDS ORDERED: DOPamine 400 MG/250 ML Premix 400 MG/250 ML BAG IV.CONT ONE (05:16)
[2018-03-18] MEDS: Calcium Acetate 667 MG Capsule PO SCH ×3 (08:12→18:22)
[2018-03-18] MEDS: Insulin NovoLOG Aspart Correctional Sugar Inj SQ SCH ×4 (08:14→21:18)
[2018-03-18] MEDS: DAPTOMYCIN IV.SIG SCH (12:02)
[2018-03-18] MEDS: SODIUM CHLOR 0.9% IV.SIG SCH (12:02)
[2018-03-18] MEDS: DOPamine 800 MG/500 ML Premix 800 MG/500 ML PLAST..BAG IV.CONT PRN (14:34)
--- NOTE | 2018-03-18 15:58 | P.PNCC ---
Subjective Subjective Remarks/Hospital Course: 03/16: is a 57 y/o AAF with complains of abdominal pain, nausea, poor appetite, generalized malaise and weakness of 3 days duration. Patient reports she was sent from a assisted for low blood pressure. Patient reports cramping pain localized to the upper abdomen on admission which is now better and reports it as being intermittent. She reports constipation and no BM for several days prior to admission despite an aggressive bowel regimen. Patient states that she currently has nausea and decreaed appetite but no vomiting and denies any diarrhea. Patient reports prior h.o GERD and gastritis and reports pain is worse upon eating. Patient is HD dependent using a Permacath in her Right groin. 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 Patient also reports being on peritoneal dialysis in past and there is records of possible peritonitis related to PD catheter. She does not make much urine. Her last HD session was on 03/15/18. She has COPD,Morbid Obesity, CHF and sleep apnea and is on Oxygen at baseline. She has been told to wear a CPAP machine for sleep apnea at night but she does not like wearing it so she has not been using it. Patient developed worsening hypotension this morning with systolic blood pressure in the 60s for which a rapid response was called. Patient was evaluated by ID and transferred to the ICU. She received a 500 cc NS bolus on the floor. Critical care consult was requested for hypotension. I spoke with Dr. Cyrus Blas who placed her last dialysis catheter and he tells me that patient usually runs systolic blood pressure in the 80s all the time. When I evaluated the patient following her arrival to the CVICU she was laying in bed and appeared comfortable not in any acute distress. Accurate blood pressure readings have been a challenge as patient has AV fistulas in both upper extremities and nurses have been attempting obtaining blood pressure in the legs. Patient denies any chest pain or shortness of breath. She denies any chills currently. She did complain of some nausea vomiting 4 days prior to presentation. She denies any melena or rectal bleeding or diarrhea. Patient was already evaluated by ID and has been started on empiric antibiotics with suspicion for hemodialysis catheter related bacteremia/sepsis. 03/17: Resting comfortably. Denies any chest pain or shortness of breath. On dopamine 5 mics per KG per minute. 03/18: Worsening hypotension during hemodialysis. I have asked the patient in the ICU following the episode. She was on dopamine which is decreased to 10 mics per KG per minute with systolic blood pressure in the 90s. She is awake and alert. Denies any chest pain or shortness of breath currently. Objective Vital Signs / I&O: Vital Signs 03/17/18 19:00 03/17/18 20:00 03/17/18 21:00 Temperature 98.2 F Pulse Rate 80 89 Respiratory Rate 18 Blood Pressure 108/59 L Pulse Oximetry 95 97 03/17/18 23:00 03/18/18 00:00 03/18/18 03:00 Temperature 97.9 F Pulse Rate 82 81 78 Respiratory Rate 18 Blood Pressure 108/59 L Pulse Oximetry 94 L 03/18/18 04:00 03/18/18 07:00 03/18/18 07:56 Temperature 98.1 F 98.5 F Pulse Rate 86 112 H Respiratory Rate 16 18 Blood Pressure 74/55 L 118/66 Pulse Oximetry 93 L 91 L 91 L 03/18/18 09:36 03/18/18 11:00 03/18/18 13:00 Temperature 98.6 F Pulse Rate 98 H Respiratory Rate 18 Blood Pressure 67/34 L Pulse Oximetry 96 90 L 95 03/18/18 14:20 03/18/18 15:00 Temperature 98.7 F Pulse Rate 128 H Respiratory Rate 16 Blood Pressure 128/82 Pulse Oximetry 92 L 97 Intake & Output 03/17/18 03/18/18 03/18/18 18:59 06:59 18:59 Intake Total 580 / 580 120 / 120 506 / 506 Output Total 0 / 0 0 / 0 Balance 580 / 580 120 / 120 506 / 506 Weight 129 kg Intake: IV 100 / 100 506 / 506 DOPamine 800 MG/500 ML Premix 306 / 306 800 mg In 500 ml @ 3 MCG/KG/MIN 16.737 mls/hr IV.CONT TITRATE PRN Rx#:[id number] Maxipime Inj 1,000 MG In NS Inj 100 / 100 100 / 100 100 ML @ 200 mls/hr IV.SIG Q24H GEOVANNY Rx#:[id number] Cubicin Inj 1,400 MG In NS Inj 100 / 100 100 ML @ 200 mls/hr IV.SIG Q48H GEOVANNY Rx#:[id number] Oral 480 / 480 120 / 120 Output: Urine 0 / 0 0 / 0 Other: Date of Last Bowel Movement 03/16/18 03/16/18 # Bowel Movements 0 0 Result Diagrams: 03/16/18 17:09 03/16/18 21:32 Objective Remarks: HEENT/Neuro: Pallor present, No icterus, tongue moist, MARIA ISABEL, Awake alert oriented 3, nonfocal grossly, moving all 4 extremities Neck: No JVD Chest/pulmonary: CTA bilaterally Cardiovascular: S1-S2 regular no gallop or murmur GI/abdomen: Soft, nontender, bowel sounds present Extremities: Warm bilaterally, no edema. Assessment and Plan - Assessment and Plan Plan: Severe sepsis Hypotension Patient has baseline hypotension was on Midodrin. Possible right groin permacath infection related bacteremia suspected Possible ileus secondary to constipation given nausea vomiting. 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 difficile colitis, bilateral upper extremity AV fistula infections, PD catheter related infections. Diabetes mellitus ESRD on hemodialysis plan: Follow neuro status. Cardiovascular: Continue Midodrine. Dopamine gtt. for hypotension. Patient runs baseline systolic blood pressure in the 80s per nephrology. Pulmonary: Supplemental O2 as needed. Bronchodilators as needed. GI/liver: P.o. diet as tolerated. Renal/: Strict intake output, monitor and replete electrolytes, follow BUN/ creatinine. Hemodialysis per renal ID: Follow-up cultures. ID consult noted. On empiric antibiotics with IV daptomycin and cefepime. Endocrine: Watch for hyperglycemia, SSI for glycemic control if needed. Heme: Follow CBC and coags Prophylaxis: Continues heparin for DVT prophylaxis Time spent on critical care excluding procedures 30 minutes
--- NOTE | 2018-03-18 16:15 | P.PNNP ---
Subjective Interval history: Patient now with VM, no chest pain, no dizziness. Physical Exam Vital signs: Vital Signs 03/17/18 19:00 03/17/18 20:00 03/17/18 21:00 Temperature 98.2 F Pulse Rate 80 89 Respiratory Rate 18 Blood Pressure 108/59 L Pulse Oximetry 95 97 03/17/18 23:00 03/18/18 00:00 03/18/18 03:00 Temperature 97.9 F Pulse Rate 82 81 78 Respiratory Rate 18 Blood Pressure 108/59 L Pulse Oximetry 94 L 03/18/18 04:00 03/18/18 07:00 03/18/18 07:56 Temperature 98.1 F 98.5 F Pulse Rate 86 112 H Respiratory Rate 16 18 Blood Pressure 74/55 L 118/66 Pulse Oximetry 93 L 91 L 91 L 03/18/18 09:36 03/18/18 11:00 03/18/18 13:00 Temperature 98.6 F Pulse Rate 98 H Respiratory Rate 18 Blood Pressure 67/34 L Pulse Oximetry 96 90 L 95 03/18/18 14:20 03/18/18 15:00 Temperature 98.7 F Pulse Rate 128 H Respiratory Rate 16 Blood Pressure 128/82 Pulse Oximetry 92 L 97 Intake & Output 03/17/18 03/18/18 03/18/18 18:59 06:59 18:59 Intake Total 580 / 580 120 / 120 506 / 506 Output Total 0 / 0 0 / 0 Balance 580 / 580 120 / 120 506 / 506 Weight 129 kg Intake: IV 100 / 100 506 / 506 DOPamine 800 MG/500 ML Premix 306 / 306 800 mg In 500 ml @ 3 MCG/KG/MIN 16.737 mls/hr IV.CONT TITRATE PRN Rx#:[id number] Maxipime Inj 1,000 MG In NS Inj 100 / 100 100 / 100 100 ML @ 200 mls/hr IV.SIG Q24H GEOVANNY Rx#:[id number] Cubicin Inj 1,400 MG In NS Inj 100 / 100 100 ML @ 200 mls/hr IV.SIG Q48H GEOVANNY Rx#:[id number] Oral 480 / 480 120 / 120 Output: Urine 0 / 0 0 / 0 Other: Date of Last Bowel Movement 03/16/18 03/16/18 # Bowel Movements 0 0 - Constitutional mild distress - Routine HEENT Exam Head: Present: normocephalic - Routine Neck Exam Present: supple - Routine Respiratory Exam Present: accessory muscle use, decreased breath sounds, rhonchi, diminished air movement - Routine Cardiovascular Exam Present: S1, S2, tachycardia - Routine Abdominal Exam Present: soft, normoactive bowel sounds, distended - Routine Extremities Exam Present: edema - Routine Skin Exam Present: intact - Routine Neurological Exam Present: alert, oriented X3 - Detailed Neurological Exam: Coma Scale Verbal Response: Oriented Motor Response: Obey commands Assessment and Plan - Assessment (1) ESRD (end stage renal disease) on dialysis Code(s): N18.6 - End stage renal disease; Z99.2 - Dependence on renal dialysis Status: Acute Plan: 1. End-stage renal disease on hemodialysis MWF HD, last HD Sunday outpatient. Volume status, electrolytes stable. Of note, the patient has right femoral dialysis catheter. This is one of the last possible access sites for the patient. There are no signs of any overt catheter infection at this point and it appears much of her symptoms are gastrointestinal in nature. Continue to monitor at this time. Patient has chronic Hypotension and today after 30 min. of HD, develop same and BP was low, HD was stopped. Now BP is improving. on Dobutamine and Midodrine. Will try HD tomorrow with minimal fluid removal. 2. Abdominal pain. Ongoing acid reflux symptoms, however feeling better and tolerating diet. Continue to monitor. 3. Chronic obstructive pulmonary disease. The patient's oxygen status is stable. She has been on home oxygen. Continue to monitor. 4. Hypotension. The patient has had chronic hypotension and has been on midodrine. She likely has autonomic dysfunction and has been on dialysis for several years with chronic hypotension. Baseline SBP 80s per patient. Wean pressors as tolerated. 5. Questionable sepsis. Seen with ID. She has been empirically started on cefepime as well as daptomycin in the setting of hypotension. If there is a concern for a catheter infection, this may be exchanged over a guidewire. Continue to followup cultures and follow up with ID. Cultures negative to date. (2) Abdominal pain Code(s): R10.9 - Unspecified abdominal pain Status: Acute Qualifiers: Abdominal location: upper abdomen, unspecified Qualified Code(s): R10.10 - Upper abdominal pain, unspecified (3) Diabetes Code(s): E11.9 - Type 2 diabetes mellitus without complications Status: Acute
--- NOTE | 2018-03-18 17:15 | MB ---
cc: Hi Macedo MD DATE: 03/18/2018 HISTORY OF PRESENT ILLNESS: A 57-year-old white female with a history of end-stage renal disease on hemodialysis, a patient of Dr. Leyva, developed nausea and hyortension during her dialysis treatments. She has a history of chronic hypotension with systolic pressure in the 80s and she has been on midodrine. She was admitted after dialysis since had a blood pressure in the 60s, and was started on pressors. She was seen by ID and was started on antibiotics. She currently has no chest pain or shortness of breath. She has had mild peripheral edema. She has a right femoral catheter and there is concern about infection. PAST MEDICAL HISTORY: Positive for end-stage renal disease on hemodialysis, hypertension, diabetes mellitus, COPD, duodenal ulcer, hepatitis C, history of gastrointestinal reflux disease, anxiety, coronary artery disease, congestive heart failure, sepsis, C. difficile, failed AV accesses, failed peritoneal dialysis catheter, osteomyelitis of the lower extremity, sacral decubitus ulcers, hypothyroidism, dyslipidemia, peripheral neuropathy, hyperparathyroidism. PAST SURGICAL HISTORY: Multiple admissions for AV access, left great toe amputation, right hand surgery for infected, right foot digit amputation. MEDICATIONS: Include cefepime, daptomycin, dopamine, gentamicin, heparin, insulin, midodrine 10 mg three times daily, pantoprazole and Brethine. ALLERGIES: LEVOFLOXACIN. SOCIAL HISTORY: The patient does not smoke. She used to smoke in the past. She does not drink alcohol. FAMILY HISTORY: Positive for heart disease in her mother. REVIEW OF SYSTEMS: Otherwise negative. PHYSICAL EXAMINATION: VITAL SIGNS: Blood pressure 128/82, pulse 110 and regular. HEENT: Negative. 2+ carotid upstrokes. No bruits. LUNGS: Clear. Decreased breath sounds. HEART: Regular, normal growth. ABDOMEN: Soft. EXTREMITIES: With mild edema, 1+ distal pulses. Right femoral dialysis catheter in place. NEUROLOGIC: Grossly nonfocal. GENERAL: The patient is in no acute distress. EKG was reviewed and showed sinus tachycardia, nonspecific ST-T changes. LABORATORY DATA: Hemoglobin 11.9. INR 1.1. Potassium 3.8, creatinine 6.8. AST 10, ALT 12. DIAGNOSIS: 1. Severe hypotension. 2. End-stage renal disease on hemodialysis. 3. Possible sepsis. 4. Chronic obstructive pulmonary disease. 5. Diabetes mellitus. DISPOSITION: Ms. Jenkins will be monitored in the ICU. She has had mild tachycardia and profound hypotension associated with dialysis. She has been on midodrine and currently is also on IV dopamine. We may conside adding Northera and titrate the drug as needed. She has not had any significant bradycardic response based on the history. We will obtain echocardiogram to evaluate her left ventricular function and also to evaluate for pericardial effusion. I will follow her for Cardiology during her hospitalization. MD JOSÉ Sharma/LEON , 04:42 PM , 05:14 PM TIGRE
--- NOTE | 2018-03-18 20:26 | P.PNFP ---
Subjective Interval history: pt had hypotensive episode in dialysis today this appears o be similar to that which sent her to the hospital sshe became dizzzy nauseauses and syncopal with bradycardia and hypotension Results - Labs Result diagrams: 03/16/18 17:09 03/16/18 21:32 Abnormal lab results 03/17/18 03/18/18 03/18/18 Range/Units 21:19 04:10 07:33 POC Glucose 160 H 133 H 150 H (68-110) mg/dl 03/18/18 03/18/18 03/18/18 Range/Units 12:01 14:02 17:32 POC Glucose 200 H 137 H 161 H (68-110) mg/dl Physical Exam Vital signs: Vital Signs 03/17/18 21:00 03/17/18 23:00 03/18/18 00:00 Temperature 97.9 F Pulse Rate 82 81 Respiratory Rate 18 Blood Pressure 108/59 L Pulse Oximetry 97 94 L 03/18/18 03:00 03/18/18 04:00 03/18/18 07:00 Temperature 98.1 F 98.5 F Pulse Rate 78 86 112 H Respiratory Rate 16 18 Blood Pressure 74/55 L 118/66 Pulse Oximetry 93 L 91 L 03/18/18 07:56 03/18/18 09:36 03/18/18 11:00 Temperature 98.6 F Pulse Rate 98 H Respiratory Rate 18 Blood Pressure 67/34 L Pulse Oximetry 91 L 96 90 L 03/18/18 13:00 03/18/18 14:20 03/18/18 15:00 Temperature 98.7 F Pulse Rate 128 H Respiratory Rate 16 Blood Pressure 128/82 Pulse Oximetry 95 92 L 97 03/18/18 18:00 03/18/18 18:14 03/18/18 18:15 Temperature Pulse Rate 128 H 103 H Respiratory Rate Blood Pressure Pulse Oximetry 97 03/18/18 18:24 Temperature Pulse Rate Respiratory Rate Blood Pressure Pulse Oximetry 95 Intake & Output 03/18/18 03/18/18 03/19/18 06:59 18:59 06:59 Intake Total 120 / 120 706 / 706 Output Total 0 / 0 0 / 0 Balance 120 / 120 706 / 706 Weight 129 kg Intake: IV 506 / 506 DOPamine 800 MG/500 ML Premix 306 / 306 800 mg In 500 ml @ 3 MCG/KG/MIN 16.737 mls/hr IV.CONT TITRATE PRN Rx#:[id number] Maxipime Inj 1,000 MG In NS Inj 100 / 100 100 ML @ 200 mls/hr IV.SIG Q24H GEOVANNY Rx#:[id number] Cubicin Inj 1,400 MG In NS Inj 100 / 100 100 ML @ 200 mls/hr IV.SIG Q48H GEOVANNY Rx#:[id number] Oral 120 / 120 200 / 200 Output: Urine 0 / 0 0 / 0 Other: Date of Last Bowel Movement 03/16/18 # Bowel Movements 0 0 - Constitutional mild distress - Routine HEENT Exam Head: Present: normocephalic, atraumatic Eye: Present: EOMI, PERRL ENT: Present: mucous membranes moist - Routine Respiratory Exam Present: decreased breath sounds, CTA bilaterally - Routine Cardiovascular Exam Present: RRR - Routine Abdominal Exam Present: soft, normoactive bowel sounds - Routine Extremities Exam Present: edema - Routine Psychiatric Exam Comments: lethargic Assessment and Plan - Assessment (1) Diabetes 1.5, managed as type 1 Code(s): E10.9 - Type 1 diabetes mellitus without complications Status: Acute (2) Abdominal pain Code(s): R10.9 - Unspecified abdominal pain Status: Acute Plan: add protonix from home meds 03/18 resolved at present (3) End-stage renal disease on hemodialysis Code(s): N18.6 - End stage renal disease; Z99.2 - Dependence on renal dialysis Status: Acute Plan: careful hydration and renal consult had hypotension this am resolved with fluids and sugar - Assessment and Plan stabilize fluid balance and sugars has had previous ischemic bowel issues but ct neg last pm and abd pain is upper not lower 03/18 cardiology consulted echo ordered (2) Abdominal pain Qualifiers: Abdominal location: upper abdomen, unspecified Qualified Code(s): R10.10 - Upper abdominal pain, unspecified
[2018-03-19] MEDS: DOPamine 800 MG/500 ML Premix 800 MG/500 ML PLAST..BAG IV.CONT PRN (04:34)
[2018-03-19] MEDS: Insulin NovoLOG Aspart Correctional Sugar Inj SQ SCH ×4 (08:39→21:49)
[2018-03-19] MEDS: Calcium Acetate 667 MG Capsule PO SCH ×3 (08:40→17:10)
[2018-03-19] MEDS: Heparin 10,000 UNITS/10 ML Vial (for IV use) OTHER PRN (08:58)
[2018-03-19] MEDS: Albumin Human 25% Inj 100 ML IV.SIG PRN (08:58)
--- NOTE | 2018-03-19 10:01 | P.PNID ---
Subjective Remarks: is a 57 y/o AAF with complains of abdominal pain, nausea, poor appetite , generalized malaise and weakness of 3 days duration. Patient reports she was sent from a alf for low blood pressure. Patient reports cramping pain localized to the upper abdomen on admission which is now better and reports it as being intermittent. She reports constipation and no BM for several days prior to admission despite an aggressive bowel regimen. Patient states that she currently has nausea and decreaed appetite but no vomiting and denies any diarrhea. Patient reports prior h.o GERD and gastritis and reports pain is worse upon eating. Patient is HD dependent using a Permacath in her Right groin. 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 Patient also reports being on peritoneal dialysis in past and there is records of possible peritonitis related to PD catheter. She does not make much urine. Her last HD session was on 03/15/18. She has COPD,Morbid Obesity, CHF and sleep apnea and is on Oxygen at baseline. She has been told to wear a CPAP machine for sleep apnea at night but she does not like wearing it so she has not been using it. She denies any CP,SOB. She denies any Back pain She denies any fever, chills or night sweats. ID consulted and will be following for severe sepsis likely source based on current data HD cath related bacteremia. Patient transferred to CVICU for BP monitoring and pressors. Overnight events reviewed Had episodes of hypotension with light headedness, Cardiology following. ECHO ordered. No fevers No rash No diarrhea Patient mentions a lump on the Right breast LQ outer aspect which is tender. Denies any discharge from nipple or warmth over skin. Antibiotics: Dapto IV Lines: Femoral line site ok Past Medical History: PMHx End-stage renal disease on hemodialysis Sunday History of hepatitis C per review of medical records this remains to be confirmed Duodenal ulcer GERD Anxiety Morbid obesity Coronary artery disease CHF Prior history of sepsis Prior history of recurrent C. difficile colitis Prior history of multiple infections including AV graft bilateral upper extremities Infection of the PD catheter and related peritonitis Osteomyelitis bilateral lower extremity Sacral decubitus ulcer DVT Hyperparathyroidism Bronchitis Hypothyroidism Baseline hypotension diagnosis possible dysautonomia on discharge last time was placed on midodrine (her baseline blood pressure on the midodrine was 133/70). Hypercholesterolemia Peripheral neuropathy Past surgical history: Infection of bilateral upper extremity AV fistulas PD catheter related peritonitis Right foot all digits amputated still has forefoot Left foot great toe amputation Right hand surgery for infection Multiple revisions for AV fistulas bilateral upper extremity Permacath placement for hemodialysis Allergies/Adverse Reactions: Allergies levofloxacin Allergy (Severe, Verified 03/15/18 13:35) Anaphylaxis ANAPHYLAXIS Objective Vital Signs 03/18/18 11:00 03/18/18 13:00 03/18/18 14:20 Temperature 98.6 F Pulse Rate 98 H Respiratory Rate 18 Blood Pressure 67/34 L Pulse Oximetry 90 L 95 92 L 03/18/18 15:00 03/18/18 18:00 03/18/18 18:14 Temperature 98.7 F Pulse Rate 128 H 128 H Respiratory Rate 16 Blood Pressure 128/82 Pulse Oximetry 97 97 03/18/18 18:15 03/18/18 18:24 03/18/18 19:15 Temperature Pulse Rate 103 H 103 H Respiratory Rate Blood Pressure Pulse Oximetry 95 03/18/18 19:54 03/18/18 22:10 03/18/18 23:45 Temperature 98.3 F 97.9 F Pulse Rate 105 H 91 H Respiratory Rate 16 15 Blood Pressure 103/63 120/72 Pulse Oximetry 95 97 96 03/19/18 03:31 03/19/18 07:00 03/19/18 07:29 Temperature 98.0 F 98.4 F Pulse Rate 96 H 93 H Respiratory Rate 15 18 Blood Pressure 107/58 L 89/60 L Pulse Oximetry 96 95 94 L Intake & Output 03/18/18 03/19/18 03/19/18 18:59 06:59 18:59 Intake Total 706 / 706 427.5 / 427.5 100 / 100 Output Total 0 / 0 Balance 706 / 706 427.5 / 427.5 100 / 100 Weight 127 kg Intake: IV 506 / 506 377.5 / 377.5 100 / 100 DOPamine 800 MG/500 ML Premix 306 / 306 377.5 / 377.5 800 mg In 500 ml @ 3 MCG/KG/MIN 16.737 mls/hr IV.CONT TITRATE PRN Rx#:[id number] Flexbumin 25% Inj 100 ML @ 60 100 / 100 mls/hr IV.SIG WITH DIALYSIS PRN Rx#:[id number] Maxipime Inj 1,000 MG In NS Inj 100 / 100 100 ML @ 200 mls/hr IV.SIG Q24H GEOVANNY Rx#:[id number] Cubicin Inj 1,400 MG In NS Inj 100 / 100 100 ML @ 200 mls/hr IV.SIG Q48H EGOVANNY Rx#:[id number] Oral 200 / 200 50 / 50 Output: Urine 0 / 0 Other: Date of Last Bowel Movement 03/16/18 03/16/18 # Bowel Movements 0 03/16/18 15:00 Blood - Peripheral Aerobic Blood Culture - Preliminary No growth in 2 days 03/16/18 15:00 Blood - Peripheral Anaerobic Blood Culture - Preliminary No growth in 2 days 03/16/18 15:05 Blood - Peripheral Aerobic Blood Culture - Preliminary No growth in 2 days 03/16/18 15:05 Blood - Peripheral Anaerobic Blood Culture - Preliminary No growth in 2 days Lab - Chemistry Results 03/17/18 03/18/18 03/18/18 21:19 04:10 07:33 POC Glucose 160 H 133 H 150 H 03/18/18 03/18/18 03/18/18 12:01 14:02 17:32 POC Glucose 200 H 137 H 161 H 03/18/18 03/19/18 20:40 07:39 POC Glucose 177 H 143 H Imaging: ITS Impressions Abdomen/Pelvis CT 03/15/18 13:55 CONCLUSION: 1. Stable CT scan of the abdomen and pelvis compared to the recent prior study. No new or significant changes. Chest X-Ray 03/16/18 00:00 CONCLUSION: No acute cardiopulmonary disease. Stents overlie the left axilla. Abdomen X-Ray 03/16/18 10:14 CONCLUSION: Unremarkable abdomen. Physical Exam: GENERAL: Morbidly obese, not in acute distress. SKIN: Cool and dry, no generalized rash. Skin folds examined with no obvious infection HEAD: Atraumatic. Normocephalic. No temporal or scalp tenderness. EYES: Pupils equal round and reactive. Scleral icterus. No injection or drainage. No petechia ENT: Nothing abnormal detected NECK: Trachea midline. Supple, nontender, no meningeal signs. CARDIOVASCULAR: HS audible. RESPIRATORY: Clear to auscultation bilaterally. GASTROINTESTINAL: Abdomen soft nontender. Breast exam: RLQ area with firm to hard, tender mass, ballotable, no erythema, no fluctuance noted. MUSCULOSKELETAL: Rt foot 5 digits surgically amputated. Left foot great toe amputated. Scars on right hand. Scars on bilateral UE at prior fistulas: no bruit or thrill. NEUROLOGICAL: Alert oriented 3. Nonfocal. Psych cooperative IV line sites ok. Permacath in RT groin Unstageable skin ulcers in buttock area. Assessment and Plan - Plan Severe sepsis with ongoing hypotension possible need for pressors Patient has baseline hypotension was on Midodrin. Last admission blood pressure while on midodrine was 133/70. Possible right groin permacath infection related bacteremia suspected Possible ileus secondary to constipation given nausea vomiting. 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 difficile colitis, bilateral upper extremity AV fistula infections, PD catheter related infections. Recs: Continue Cefepime IV Continue daptomycin 10 mg/kg IV every 24hrs. US chest to make sure no breast abscess. Consider Surgical consult to decide on Biopsy of Right side breast mass ? malignancy. Follow cultures Follow clinically. dw US to change order to US breast to look for abscess/fluid collection. Malignancy workup per primary.
--- NOTE | 2018-03-19 10:10 | ECHRPT ---
Indication: SEPSIS CONCLUSIONS The left ventricular systolic function is hyperdynamic with an estimated ejection fraction in the ra nge of 65- 70%. Cannot exclude regionall wall motion abnormalities. Normal left ventricular size. Moderate concentric left ventricular hypertrophy. No regional wall motion abnormalities are present. Preserved RV function.LA probably normalRA poorly visualizedAtrial Septum not visialized.Aorta has limited visualization.Mitral valves reveals mitral annular calcification without stenosis/regurg.AV is tricuspid but poorly visualized. No stenosis or regurg.The tricuspid valve is not well visualized. There is trace tricuspid valve regurgitation. Normal estimated pulmonary pressures. PV no regurg.IVC not well seen.No effusion. BP: / HR: Rhythm: Sinus MEASUREMENTS (Male / Female) Normal Values Technical Quality:Very technically difficult study 2D ECHO LV Diastolic Diameter PLAX 3.6 cm 4.2 - 5.9 / 3.9 - 5.3 cm LV Systolic Diameter PLAX 2.5 cm IVS Diastolic Thickness 1.2 cm 0.6 - 1.0 / 0.6 - 0.9 cm LVPW Diastolic Thickness 1.3 cm 0.6 - 1.0 / 0.6 - 0.9 cm LV Relative Wall Thickness 0.7 LVOT Diameter 1.7 cm M-MODE Aortic Root Diameter MM 2.1 cm AV Cusp Separation MM 1.5 cm DOPPLER MV Area PHT 5.8 cm Mitral E Point Velocity 47.9 cm/s Mitral A Point Velocity 81.4 cm/s Mitral E to A Ratio 0.6 TR Peak Velocity 209.0 cm/s TR Peak Gradient 17.5 mmHg Right Atrial Pressure 10.0 mmHg Pulmonary Artery Systolic Pressu 27.5 mmHg Right Ventricular Systolic Press 27.5 mmHg PV Peak Velocity 81.4 cm/s PV Peak Gradient 2.7 mmHg FINDINGS LEFT VENTRICLE The left ventricular systolic function is hyperdynamic with an estimated ejection fraction in the ra nge of 65- 70%. Cannot exclude regionall wall motion abnormalities. Normal left ventricular size. Moderate concentric left ventricular hypertrophy. No regional wall motion abnormalities are present. RIGHT VENTRICLE Preserved RV function. LEFT ATRIUM LA probably normal RIGHT ATRIUM RA poorly visualized ATRIAL SEPTUM Atrial Septum not visialized. AORTA Aorta has limited visualization. MITRAL VALVE Mitral valves reveals mitral annular calcification without stenosis/regurg. AORTIC VALVE AV is tricuspid but poorly visualized. No stenosis or regurg. TRICUSPID VALVE The tricuspid valve is not well visualized. There is trace tricuspid valve regurgitation. Normal estimated pulmonary pressures. PULMONARY VALVE PV no regurg. VESSELS IVC not well seen. PERICARDIUM No effusion. Carter Springer MD (Electronically Signed) Final Date:19 March 2018 10:09
--- NOTE | 2018-03-19 11:52 | P.PNFP ---
Subjective Interval history: resting quietly has dialysis today Results - Labs Result diagrams: 03/16/18 17:09 03/16/18 21:32 Abnormal lab results 03/18/18 03/18/18 03/18/18 Range/Units 12:01 14:02 17:32 POC Glucose 200 H 137 H 161 H (68-110) mg/dl 03/18/18 03/19/18 Range/Units 20:40 07:39 POC Glucose 177 H 143 H (68-110) mg/dl Physical Exam Vital signs: Vital Signs 03/18/18 13:00 03/18/18 14:20 03/18/18 15:00 Temperature 98.7 F Pulse Rate 128 H Respiratory Rate 16 Blood Pressure 128/82 Pulse Oximetry 95 92 L 97 03/18/18 18:00 03/18/18 18:14 03/18/18 18:15 Temperature Pulse Rate 128 H 103 H Respiratory Rate Blood Pressure Pulse Oximetry 97 03/18/18 18:24 03/18/18 19:15 03/18/18 19:54 Temperature 98.3 F Pulse Rate 103 H 105 H Respiratory Rate 16 Blood Pressure 103/63 Pulse Oximetry 95 95 03/18/18 22:10 03/18/18 23:45 03/19/18 03:31 Temperature 97.9 F 98.0 F Pulse Rate 91 H 96 H Respiratory Rate 15 15 Blood Pressure 120/72 107/58 L Pulse Oximetry 97 96 96 03/19/18 07:00 03/19/18 07:29 03/19/18 11:00 Temperature 98.4 F 98.6 F Pulse Rate 93 H 83 Respiratory Rate 18 18 Blood Pressure 89/60 L 92/35 L Pulse Oximetry 95 94 L 95 Intake & Output 03/18/18 03/19/18 03/19/18 18:59 06:59 18:59 Intake Total 706 / 706 427.5 / 427.5 100 / 100 Output Total 0 / 0 500 / 500 Balance 706 / 706 427.5 / 427.5 -400 / -400 Weight 127 kg Intake: IV 506 / 506 377.5 / 377.5 100 / 100 DOPamine 800 MG/500 ML Premix 306 / 306 377.5 / 377.5 800 mg In 500 ml @ 3 MCG/KG/MIN 16.737 mls/hr IV.CONT TITRATE PRN Rx#:[id number] Flexbumin 25% Inj 100 ML @ 60 100 / 100 mls/hr IV.SIG WITH DIALYSIS PRN Rx#:[id number] Maxipime Inj 1,000 MG In NS Inj 100 / 100 100 ML @ 200 mls/hr IV.SIG Q24H GEOVANNY Rx#:[id number] Cubicin Inj 1,400 MG In NS Inj 100 / 100 100 ML @ 200 mls/hr IV.SIG Q48H GEOVANNY Rx#:[id number] Oral 200 / 200 50 / 50 Output: Urine 0 / 0 Hemodialysis Amount 500 / 500 Other: Date of Last Bowel Movement 03/16/18 03/16/18 # Bowel Movements 0 - Constitutional no acute distress - Routine HEENT Exam Head: Present: normocephalic, atraumatic Eye: Present: EOMI, PERRL ENT: Present: mucous membranes moist - Routine Neck Exam Present: supple - Routine Respiratory Exam Present: decreased breath sounds, CTA bilaterally - Routine Cardiovascular Exam Present: RRR - Routine Abdominal Exam Present: soft, normoactive bowel sounds Comments: obese - Routine Extremities Exam Present: edema - Routine Neurological Exam Present: alert, oriented X3 Assessment and Plan - Assessment (1) Diabetes 1.5, managed as type 1 Code(s): E10.9 - Type 1 diabetes mellitus without complications Status: Acute (2) Abdominal pain Code(s): R10.9 - Unspecified abdominal pain Status: Acute Plan: add protonix from home meds 03/18 resolved at present (3) End-stage renal disease on hemodialysis Code(s): N18.6 - End stage renal disease; Z99.2 - Dependence on renal dialysis Status: Acute Plan: careful hydration and renal consult had hypotension this am resolved with fluids and sugar - Assessment and Plan stabilize fluid balance and sugars has had previous ischemic bowel issues but ct neg last pm and abd pain is upper not lower 03/18 cardiology consulted echo ordered 03/19 had syncope in dialysis yesterday stable dialysis so far today cardiac echo normal will follow fluids closely pt on dopamine drip to be able to tolerate dialysis (2) Abdominal pain Qualifiers: Abdominal location: upper abdomen, unspecified Qualified Code(s): R10.10 - Upper abdominal pain, unspecified
[2018-03-19 12:34] LABS: Baso % (Auto) 0.3 % (0.0-2.0); Eos # (Auto) 0.4 th/mm3 (0.0-0.4); Eos % (Auto) 5.2 % (0.0-4.0); Hematocrit 39.8 % (35.0-46.0); Hemoglobin 12.6 gm/dL (11.6-15.3); Lymph # (Auto) 0.5 th/mm3 (1.0-4.8); Lymph % (Auto) 6.5 % (9.0-44.0); Mean Corpuscular HGB Conc 31.7 % (32.0-36.0); Mean Corpuscular Hemoglobin 28.8 pg (27.0-34.0); Mean Corpuscular Volume 90.8 fL (80.0-100.0); Mono # (Auto) 0.7 th/mm3 (0.0-0.9); Mono % (Auto) 8.9 % (0.0-8.0); Neut # (Auto) 5.8 th/mm3 (1.8-7.7); Neut % (Auto) 79.1 % (16.0-70.0); Platelet Count 297 th/mm3 (150-450); Red Blood Count 4.38 mil/mm3 (4.00-5.30); Red Cell Distribution Width 15.1 % (11.6-17.2); White Blood Count 7.4 th/mm3 (4.0-11.0)
[2018-03-19 13:07] LABS: Alanine Aminotransferase 10 U/L (10-53); Albumin 2.8 g/dL (3.4-5.0); Anion Gap 12 meq/L (5-15); Aspartate Aminotransferase 8 U/L (15-37); Blood Urea Nitrogen 24 mg/dL (7-18); Calcium 9.3 mg/dL (8.5-10.1); Carbon Dioxide 25.8 meq/L (21.0-32.0); Chloride 99 meq/L (98-107); Glomerular Filtration Rate 10 mL/min (>89); Glucose,Random 131 mg/dL (74-106); Potassium 3.4 meq/L (3.5-5.1); Sodium 137 meq/L (136-145)
[2018-03-19 13:12] LABS: Alkaline Phosphatase 58 U/L (45-117); Total Protein 7.7 g/dL (6.4-8.2)
--- NOTE | 2018-03-19 14:40 | P.PNCC ---
Subjective Subjective Remarks/Hospital Course: 03/16: is a 57 y/o AAF with complains of abdominal pain, nausea, poor appetite, generalized malaise and weakness of 3 days duration. Patient reports she was sent from a intermediate for low blood pressure. Patient reports cramping pain localized to the upper abdomen on admission which is now better and reports it as being intermittent. She reports constipation and no BM for several days prior to admission despite an aggressive bowel regimen. Patient states that she currently has nausea and decreaed appetite but no vomiting and denies any diarrhea. Patient reports prior h.o GERD and gastritis and reports pain is worse upon eating. Patient is HD dependent using a Permacath in her Right groin. 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 Patient also reports being on peritoneal dialysis in past and there is records of possible peritonitis related to PD catheter. She does not make much urine. Her last HD session was on 03/15/18. She has COPD,Morbid Obesity, CHF and sleep apnea and is on Oxygen at baseline. She has been told to wear a CPAP machine for sleep apnea at night but she does not like wearing it so she has not been using it. Patient developed worsening hypotension this morning with systolic blood pressure in the 60s for which a rapid response was called. Patient was evaluated by ID and transferred to the ICU. She received a 500 cc NS bolus on the floor. Critical care consult was requested for hypotension. I spoke with Dr. Cyrus Blas who placed her last dialysis catheter and he tells me that patient usually runs systolic blood pressure in the 80s all the time. When I evaluated the patient following her arrival to the CVICU she was laying in bed and appeared comfortable not in any acute distress. Accurate blood pressure readings have been a challenge as patient has AV fistulas in both upper extremities and nurses have been attempting obtaining blood pressure in the legs. Patient denies any chest pain or shortness of breath. She denies any chills currently. She did complain of some nausea vomiting 4 days prior to presentation. She denies any melena or rectal bleeding or diarrhea. Patient was already evaluated by ID and has been started on empiric antibiotics with suspicion for hemodialysis catheter related bacteremia/sepsis. 03/17: Resting comfortably. Denies any chest pain or shortness of breath. On dopamine 5 mics per KG per minute. 03/18: Worsening hypotension during hemodialysis. I have asked the patient in the ICU following the episode. She was on dopamine which is decreased to 10 mics per KG per minute with systolic blood pressure in the 90s. She is awake and alert. Denies any chest pain or shortness of breath currently. 03/19: Resting comfortably, dialyzed earlier. Dopamine being titrated down. Objective Vital Signs / I&O: Vital Signs 03/18/18 15:00 03/18/18 18:00 03/18/18 18:14 Temperature 98.7 F Pulse Rate 128 H 128 H Respiratory Rate 16 Blood Pressure 128/82 Pulse Oximetry 97 97 03/18/18 18:15 03/18/18 18:24 03/18/18 19:15 Temperature Pulse Rate 103 H 103 H Respiratory Rate Blood Pressure Pulse Oximetry 95 03/18/18 19:54 03/18/18 22:10 03/18/18 23:45 Temperature 98.3 F 97.9 F Pulse Rate 105 H 91 H Respiratory Rate 16 15 Blood Pressure 103/63 120/72 Pulse Oximetry 95 97 96 03/19/18 03:31 03/19/18 07:00 03/19/18 07:29 Temperature 98.0 F 98.4 F Pulse Rate 96 H 93 H Respiratory Rate 15 18 Blood Pressure 107/58 L 89/60 L Pulse Oximetry 96 95 94 L 03/19/18 11:00 Temperature 98.6 F Pulse Rate 83 Respiratory Rate 18 Blood Pressure 92/35 L Pulse Oximetry 95 Intake & Output 03/18/18 03/19/18 03/19/18 18:59 06:59 18:59 Intake Total 706 / 706 427.5 / 427.5 100 / 100 Output Total 0 / 0 500 / 500 Balance 706 / 706 427.5 / 427.5 -400 / -400 Weight 127 kg Intake: IV 506 / 506 377.5 / 377.5 100 / 100 DOPamine 800 MG/500 ML Premix 306 / 306 377.5 / 377.5 800 mg In 500 ml @ 3 MCG/KG/MIN 16.737 mls/hr IV.CONT TITRATE PRN Rx#:[id number] Flexbumin 25% Inj 100 ML @ 60 100 / 100 mls/hr IV.SIG WITH DIALYSIS PRN Rx#:[id number] Maxipime Inj 1,000 MG In NS Inj 100 / 100 100 ML @ 200 mls/hr IV.SIG Q24H GEOVANNY Rx#:[id number] Cubicin Inj 1,400 MG In NS Inj 100 / 100 100 ML @ 200 mls/hr IV.SIG Q48H GEOVANNY Rx#:[id number] Oral 200 / 200 50 / 50 Output: Urine 0 / 0 Hemodialysis Amount 500 / 500 Other: Date of Last Bowel Movement 03/16/18 03/16/18 # Bowel Movements 0 Result Diagrams: 03/19/18 11:49 03/19/18 11:49 Objective Remarks: HEENT/Neuro: Pallor present, No icterus, tongue moist, MARIA ISABEL, Awake alert oriented 3, nonfocal grossly, moving all 4 extremities Neck: No JVD Chest/pulmonary: CTA bilaterally Cardiovascular: S1-S2 regular no gallop or murmur GI/abdomen: Soft, nontender, bowel sounds present Extremities: Warm bilaterally, no edema. Assessment and Plan - Assessment and Plan Plan: Severe sepsis Hypotension Patient has baseline hypotension was on Midodrin. Possible right groin permacath infection related bacteremia suspected Possible ileus secondary to constipation given nausea vomiting. 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 difficile colitis, bilateral upper extremity AV fistula infections, PD catheter related infections. Diabetes mellitus ESRD on hemodialysis plan: Follow neuro status. Cardiovascular: Continue Midodrine. Dopamine gtt. for hypotension. Patient runs baseline systolic blood pressure in the 80s per nephrology. Pulmonary: Supplemental O2 as needed. Bronchodilators as needed. GI/liver: P.o. diet as tolerated. Renal/: Strict intake output, monitor and replete electrolytes, follow BUN/ creatinine. Hemodialysis per renal ID: Follow-up cultures. ID consult noted. On empiric antibiotics with IV daptomycin and cefepime. Breast US for rt breast mass to evaluate for abscess vs tumor. Endocrine: Watch for hyperglycemia, SSI for glycemic control if needed. Heme: Follow CBC and coags Prophylaxis: Continues heparin for DVT prophylaxis
--- NOTE | 2018-03-19 15:00 | P.PNCA ---
<RamoneneelamMadison N - Last Filed: 03/19/18 14:49> Subjective Interval history: Pt currently receiving HD. Pt denies any CP, pressure, palpitations, dizziness or SOB. Pt states she is feeling better. Physical Exam Vital signs: Vital Signs 03/18/18 15:00 03/18/18 18:00 03/18/18 18:14 Temperature 98.7 F Pulse Rate 128 H 128 H Respiratory Rate 16 Blood Pressure 128/82 Pulse Oximetry 97 97 03/18/18 18:15 03/18/18 18:24 03/18/18 19:15 Temperature Pulse Rate 103 H 103 H Respiratory Rate Blood Pressure Pulse Oximetry 95 03/18/18 19:54 03/18/18 22:10 03/18/18 23:45 Temperature 98.3 F 97.9 F Pulse Rate 105 H 91 H Respiratory Rate 16 15 Blood Pressure 103/63 120/72 Pulse Oximetry 95 97 96 03/19/18 03:31 03/19/18 07:00 03/19/18 07:29 Temperature 98.0 F 98.4 F Pulse Rate 96 H 93 H Respiratory Rate 15 18 Blood Pressure 107/58 L 89/60 L Pulse Oximetry 96 95 94 L 03/19/18 11:00 Temperature 98.6 F Pulse Rate 83 Respiratory Rate 18 Blood Pressure 92/35 L Pulse Oximetry 95 Intake & Output 03/18/18 03/19/18 03/19/18 18:59 06:59 18:59 Intake Total 706 / 706 427.5 / 427.5 100 / 100 Output Total 0 / 0 500 / 500 Balance 706 / 706 427.5 / 427.5 -400 / -400 Weight 127 kg Intake: IV 506 / 506 377.5 / 377.5 100 / 100 DOPamine 800 MG/500 ML Premix 306 / 306 377.5 / 377.5 800 mg In 500 ml @ 3 MCG/KG/MIN 16.737 mls/hr IV.CONT TITRATE PRN Rx#:[id number] Flexbumin 25% Inj 100 ML @ 60 100 / 100 mls/hr IV.SIG WITH DIALYSIS PRN Rx#:[id number] Maxipime Inj 1,000 MG In NS Inj 100 / 100 100 ML @ 200 mls/hr IV.SIG Q24H GEOVANNY Rx#:[id number] Cubicin Inj 1,400 MG In NS Inj 100 / 100 100 ML @ 200 mls/hr IV.SIG Q48H GEOVANNY Rx#:[id number] Oral 200 / 200 50 / 50 Output: Urine 0 / 0 Hemodialysis Amount 500 / 500 Other: Date of Last Bowel Movement 03/16/18 03/16/18 # Bowel Movements 0 - Constitutional no acute distress - Routine Respiratory Exam Present: CTA bilaterally - Routine Cardiovascular Exam Present: S1, S2. Absent: murmur, gallop, rubs Comments: ST on monitor. - Routine Abdominal Exam Present: soft - Routine Extremities Exam Present: pulses intact, normal capillary refill - Routine Neurological Exam Present: oriented X3 - Routine Psychiatric Exam Present: normal affect Assessment and Plan - Assessment (1) COPD (chronic obstructive pulmonary disease) Code(s): J44.9 - Chronic obstructive pulmonary disease, unspecified Status: Acute (2) End-stage renal disease on hemodialysis Code(s): N18.6 - End stage renal disease; Z99.2 - Dependence on renal dialysis Status: Acute (3) HBP (high blood pressure) Code(s): I10 - Essential (primary) hypertension Status: Acute (4) Diabetes Code(s): E11.9 - Type 2 diabetes mellitus without complications Status: Acute - Plan Pt denies any CP, pressure, palpitations, dizziness or SOB at this time. Pt currently receiving HD. Pt is on Dopamine gtt to sustain her BP during HD. ST on monitor, VSS. Echo showed normal LV function and no pericardial effusions. Continue midodrine for BP support and consider switching patient to [facility]he[facility] for out patient dialysis. ID evaluation in progress. The patient was seen and evaluated by Dr. Macedo who participated in care, management and decision making. <Hi Macedo - Last Filed: 03/19/18 20:43> Physical Exam Vital signs: Vital Signs 03/18/18 22:10 03/18/18 23:45 03/19/18 03:31 Temperature 97.9 F 98.0 F Pulse Rate 91 H 96 H Respiratory Rate 15 15 Blood Pressure 120/72 107/58 L Pulse Oximetry 97 96 96 03/19/18 07:00 03/19/18 07:29 03/19/18 11:00 Temperature 98.4 F 98.6 F Pulse Rate 93 H 83 Respiratory Rate 18 18 Blood Pressure 89/60 L 92/35 L Pulse Oximetry 95 94 L 95 03/19/18 15:00 Temperature 98.8 F Pulse Rate 80 Respiratory Rate 18 Blood Pressure 115/57 L Pulse Oximetry 98 Intake & Output 03/19/18 03/19/18 03/20/18 06:59 18:59 06:59 Intake Total 427.5 / 427.5 668 / 668 Output Total 1000 / 1000 Balance 427.5 / 427.5 -332 / -332 Weight 279 lb 15.793 oz Intake: IV 377.5 / 377.5 568 / 568 DOPamine 800 MG/500 ML Premix 377.5 / 377.5 268 / 268 800 mg In 500 ml @ 3 MCG/KG/MIN 16.737 mls/hr IV.CONT TITRATE PRN Rx#:[id number] Flexbumin 25% Inj 100 ML @ 60 100 / 100 mls/hr IV.SIG WITH DIALYSIS PRN Rx#:[id number] Maxipime Inj 1,000 MG In NS Inj 100 / 100 100 ML @ 200 mls/hr IV.SIG Q24H GEOVANNY Rx#:[id number] Cubicin Inj 1,400 MG In NS Inj 100 / 100 100 ML @ 200 mls/hr IV.SIG Q48H GEOVANNY Rx#:[id number] Oral 50 / 50 100 / 100 Output: Urine 0 / 0 Hemodialysis Amount 1000 / 1000 Other: Date of Last Bowel Movement 03/19/18 # Bowel Movements 1 Assessment and Plan - Assessment (1) COPD (chronic obstructive pulmonary disease) Code(s): J44.9 - Chronic obstructive pulmonary disease, unspecified Status: Acute (2) End-stage renal disease on hemodialysis Code(s): N18.6 - End stage renal disease; Z99.2 - Dependence on renal dialysis Status: Acute (3) HBP (high blood pressure) Code(s): I10 - Essential (primary) hypertension Status: Acute (4) Diabetes Code(s): E11.9 - Type 2 diabetes mellitus without complications Status: Acute - Attending Attestation Patient seen and examined. I reviewed and agree with the findings and plan presented. Echo unremarkable. Continue midodrine. May consider adding Northera for outpatient dialysis. Continue dopamine for now.
--- NOTE | 2018-03-19 15:12 | P.PNNP ---
Subjective Interval history: Patient seen during HD in AM, breathing is better, with nasal cannula. Physical Exam Vital signs: Vital Signs 03/18/18 18:00 03/18/18 18:14 03/18/18 18:15 Temperature Pulse Rate 128 H 103 H Respiratory Rate Blood Pressure Pulse Oximetry 97 03/18/18 18:24 03/18/18 19:15 03/18/18 19:54 Temperature 98.3 F Pulse Rate 103 H 105 H Respiratory Rate 16 Blood Pressure 103/63 Pulse Oximetry 95 95 03/18/18 22:10 03/18/18 23:45 03/19/18 03:31 Temperature 97.9 F 98.0 F Pulse Rate 91 H 96 H Respiratory Rate 15 15 Blood Pressure 120/72 107/58 L Pulse Oximetry 97 96 96 03/19/18 07:00 03/19/18 07:29 03/19/18 11:00 Temperature 98.4 F 98.6 F Pulse Rate 93 H 83 Respiratory Rate 18 18 Blood Pressure 89/60 L 92/35 L Pulse Oximetry 95 94 L 95 Intake & Output 03/18/18 03/19/18 03/19/18 18:59 06:59 18:59 Intake Total 706 / 706 427.5 / 427.5 100 / 100 Output Total 0 / 0 500 / 500 Balance 706 / 706 427.5 / 427.5 -400 / -400 Weight 127 kg Intake: IV 506 / 506 377.5 / 377.5 100 / 100 DOPamine 800 MG/500 ML Premix 306 / 306 377.5 / 377.5 800 mg In 500 ml @ 3 MCG/KG/MIN 16.737 mls/hr IV.CONT TITRATE PRN Rx#:[id number] Flexbumin 25% Inj 100 ML @ 60 100 / 100 mls/hr IV.SIG WITH DIALYSIS PRN Rx#:[id number] Maxipime Inj 1,000 MG In NS Inj 100 / 100 100 ML @ 200 mls/hr IV.SIG Q24H GEOVANNY Rx#:[id number] Cubicin Inj 1,400 MG In NS Inj 100 / 100 100 ML @ 200 mls/hr IV.SIG Q48H GEOVANNY Rx#:[id number] Oral 200 / 200 50 / 50 Output: Urine 0 / 0 Hemodialysis Amount 500 / 500 Other: Date of Last Bowel Movement 03/16/18 03/16/18 # Bowel Movements 0 - Constitutional mild distress - Routine HEENT Exam Head: Present: normocephalic - Routine Neck Exam Present: supple - Routine Respiratory Exam Present: decreased breath sounds, rhonchi, wheezes, distant breath sounds, diminished air movement - Routine Cardiovascular Exam Present: S1, S2, tachycardia - Routine Abdominal Exam Present: soft, normoactive bowel sounds, distended - Routine Neurological Exam Present: alert, oriented X3 - Detailed Neurological Exam: Coma Scale Verbal Response: Oriented Assessment and Plan - Assessment (1) ESRD (end stage renal disease) on dialysis Code(s): N18.6 - End stage renal disease; Z99.2 - Dependence on renal dialysis Status: Acute Plan: 1. End-stage renal disease on hemodialysis MWF HD, last HD Sunday outpatient. Volume status, electrolytes stable. Of note, the patient has right femoral dialysis catheter. This is one of the last possible access sites for the patient. There are no signs of any overt catheter infection at this point and it appears much of her symptoms are gastrointestinal in nature. Continue to monitor at this time. Patient has chronic Hypotension and today after 30 min. of HD, develop same and BP was low, HD was stopped. Now BP is improving. on Dopamine and Midodrine. HD done again today, BP remain stable, with help of Dopamine, only removed 500 ml. 2. Abdominal pain. Ongoing acid reflux symptoms, however feeling better and tolerating diet. Continue to monitor. 3. Chronic obstructive pulmonary disease. The patient's oxygen status is stable. She has been on home oxygen. Continue to monitor. 4. Hypotension. The patient has had chronic hypotension and has been on midodrine. She likely has autonomic dysfunction and has been on dialysis for several years with chronic hypotension. Baseline SBP 80s per patient. Wean pressors as tolerated. 5. Questionable sepsis. Seen with ID. She has been empirically started on cefepime as well as daptomycin in the setting of hypotension. If there is a concern for a catheter infection, this may be exchanged over a guidewire. Continue to followup cultures and follow up with ID. Cultures negative to date. (2) Abdominal pain Code(s): R10.9 - Unspecified abdominal pain Status: Acute Qualifiers: Abdominal location: upper abdomen, unspecified Qualified Code(s): R10.10 - Upper abdominal pain, unspecified (3) Diabetes Code(s): E11.9 - Type 2 diabetes mellitus without complications Status: Acute
--- NOTE | 2018-03-19 20:54 | US ---
EXAM DATE: 03/19/2018 8:18 PM EDT AGE/SEX: 57 years / Female INDICATIONS: Abscess. CLINICAL DATA: This is the patient's initial encounter. Patient reports that signs and symptoms have been present for 2 months and indicates a pain score of 10/10. MEDICAL/SURGICAL HISTORY: Hypertension. Diabetes. End stage renal disease. Appendectomy. AV fi stula. COMPARISON: No prior exams available for comparison. FINDINGS: There is diffuse edema in the area of concern near the 9:00 position of the right breast. Nothing org anized or drainable. Distended vessels are seen focally as well. Overlying skin is thickened. CONCLUSION: 1. Nonspecific edema, engorged vessels and skin thickening laterally of the right breast. 2. No mass or organized fluid demonstrated. Electronically signed by: Damián Schmitt MD 03/19/2018 8:53 PM EDT
[2018-03-20 04:23] LABS: Baso % (Auto) 0.4 % (0.0-2.0); Eos # (Auto) 0.4 th/mm3 (0.0-0.4); Eos % (Auto) 6.1 % (0.0-4.0); Hemoglobin 12.7 gm/dL (11.6-15.3); Lymph # (Auto) 0.4 th/mm3 (1.0-4.8); Lymph % (Auto) 6.2 % (9.0-44.0); Mean Corpuscular HGB Conc 31.7 % (32.0-36.0); Mean Corpuscular Hemoglobin 28.9 pg (27.0-34.0); Mean Corpuscular Volume 91.2 fL (80.0-100.0); Mean Platelet Volume 7.1 fL (7.0-11.0); Mono # (Auto) 0.8 th/mm3 (0.0-0.9); Mono % (Auto) 11.9 % (0.0-8.0); Neut # (Auto) 5.2 th/mm3 (1.8-7.7); Neut % (Auto) 75.4 % (16.0-70.0); Platelet Count 300 th/mm3 (150-450); Red Blood Count 4.39 mil/mm3 (4.00-5.30); Red Cell Distribution Width 15.2 % (11.6-17.2); White Blood Count 6.9 th/mm3 (4.0-11.0)
[2018-03-20 04:58] LABS: Alanine Aminotransferase 11 U/L (10-53); Albumin 2.8 g/dL (3.4-5.0); Alkaline Phosphatase 57 U/L (45-117); Anion Gap 11 meq/L (5-15); Aspartate Aminotransferase 4 U/L (15-37); Blood Urea Nitrogen 29 mg/dL (7-18); Carbon Dioxide 28.2 meq/L (21.0-32.0); Chloride 99 meq/L (98-107); Glomerular Filtration Rate 8 mL/min (>89); Glucose,Random 117 mg/dL (74-106); Potassium 3.6 meq/L (3.5-5.1); Sodium 138 meq/L (136-145); Total Protein 7.3 g/dL (6.4-8.2)
[2018-03-20] MEDS: DOPamine 800 MG/500 ML Premix 800 MG/500 ML PLAST..BAG IV.CONT PRN ×2 (05:37→05:39)
[2018-03-20] MEDS: Insulin NovoLOG Aspart Correctional Sugar Inj SQ SCH ×4 (08:04→22:56)
[2018-03-20] MEDS: Calcium Acetate 667 MG Capsule PO SCH ×3 (08:33→22:55)
--- NOTE | 2018-03-20 09:11 | P.PNCA ---
<RamoneneelamMadison N - Last Filed: 03/20/18 09:04> Subjective Interval history: Pt in no acute distress. Pt denies CP, pressure, palpitations, dizziness or SOB. Pt states she is feeling better. Physical Exam Vital signs: Vital Signs 03/19/18 11:00 03/19/18 15:00 03/19/18 19:00 Temperature 98.6 F 98.8 F Pulse Rate 83 80 87 Respiratory Rate 18 18 Blood Pressure 92/35 L 115/57 L Pulse Oximetry 95 98 03/19/18 20:00 03/19/18 21:26 03/19/18 23:00 Temperature 98.8 F 98.9 F Pulse Rate 87 76 Respiratory Rate 18 18 Blood Pressure 105/60 117/72 Pulse Oximetry 95 95 03/20/18 00:56 03/20/18 03:00 03/20/18 03:19 Temperature 98.9 F Pulse Rate 76 Respiratory Rate 18 Blood Pressure 101/59 L Pulse Oximetry 96 95 03/20/18 03:22 03/20/18 07:00 Temperature 98.2 F Pulse Rate 70 Respiratory Rate Blood Pressure 119/54 L Pulse Oximetry 95 18 L Intake & Output 03/19/18 03/20/18 03/20/18 18:59 06:59 18:59 Intake Total 668 / 668 896.5 / 896.5 120 / 120 Output Total 1000 / 1000 0 / 0 Balance -332 / -332 896.5 / 896.5 120 / 120 Weight 126.1 kg Intake: IV 568 / 568 656.5 / 656.5 0 / 0 DOPamine 800 MG/500 ML Premix 268 / 268 656.5 / 656.5 800 mg In 500 ml @ 3 MCG/KG/MIN 16.737 mls/hr IV.CONT TITRATE PRN Rx#:[id number] Flexbumin 25% Inj 100 ML @ 60 100 / 100 mls/hr IV.SIG WITH DIALYSIS PRN Rx#:[id number] Maxipime Inj 1,000 MG In NS Inj 100 / 100 100 ML @ 200 mls/hr IV.SIG Q24H GEOVANNY Rx#:[id number] Cubicin Inj 1,400 MG In NS Inj 100 / 100 100 ML @ 200 mls/hr IV.SIG Q48H GEOVANNY Rx#:[id number] Oral 100 / 100 240 / 240 120 / 120 Output: Urine 0 / 0 0 / 0 Hemodialysis Amount 1000 / 1000 Other: Date of Last Bowel Movement 03/19/18 03/19/18 03/19/18 # Bowel Movements 1 - Constitutional no acute distress - Routine HEENT Exam Head: Present: normocephalic Eye: Present: PERRL ENT: Present: mucous membranes moist - Routine Respiratory Exam Present: crackles Comments: fine crackles noted bilaterally in LL. - Routine Cardiovascular Exam Present: RRR, S1, S2. Absent: murmur, gallop, rubs - Routine Abdominal Exam Present: soft - Routine Extremities Exam Present: pulses intact, normal capillary refill. Absent: edema - Routine Neurological Exam Present: oriented X3 - Detailed Neurological Exam: Coma Scale Eye Opening: Spontaneous Verbal Response: Oriented Motor Response: Obey commands Gilbert Coma Scale Total: 15 - Routine Psychiatric Exam Present: normal affect Assessment and Plan - Assessment (1) COPD (chronic obstructive pulmonary disease) Code(s): J44.9 - Chronic obstructive pulmonary disease, unspecified Status: Acute (2) End-stage renal disease on hemodialysis Code(s): N18.6 - End stage renal disease; Z99.2 - Dependence on renal dialysis Status: Acute (3) HBP (high blood pressure) Code(s): I10 - Essential (primary) hypertension Status: Acute (4) Diabetes Code(s): E11.9 - Type 2 diabetes mellitus without complications Status: Acute - Plan Pt denies any CP, pressure, palpitations, dizziness or SOB at this time. Pt is scheduled to receive dialysis today. Pt is on Dopamine gtt at 4mcgs/kg/min, BP stable. ST on monitor. No edema noted in the LE. Continue current treatment plan with midodrine for BP support and consider switching patient to Northera for out patient dialysis. The patient was seen and evaluated by Dr. Macedo who participated in care, management and decision making. <Hi Macedo - Last Filed: 03/20/18 15:15> Physical Exam Vital signs: Vital Signs 03/19/18 19:00 03/19/18 20:00 03/19/18 21:26 Temperature 98.8 F Pulse Rate 87 87 Respiratory Rate 18 Blood Pressure 105/60 Pulse Oximetry 95 03/19/18 23:00 03/20/18 00:56 03/20/18 03:00 Temperature 98.9 F 98.9 F Pulse Rate 76 76 Respiratory Rate 18 18 Blood Pressure 117/72 101/59 L Pulse Oximetry 95 96 03/20/18 03:19 03/20/18 03:22 03/20/18 07:00 Temperature 98.2 F Pulse Rate 70 Respiratory Rate Blood Pressure 119/54 L Pulse Oximetry 95 95 98 03/20/18 11:00 03/20/18 11:23 Temperature 98.0 F Pulse Rate 70 72 Respiratory Rate 20 Blood Pressure 126/73 Pulse Oximetry 18 L 95 Intake & Output 03/19/18 03/20/18 03/20/18 18:59 06:59 18:59 Intake Total 668 / 668 896.5 / 896.5 120 / 120 Output Total 1000 / 1000 0 / 0 Balance -332 / -332 896.5 / 896.5 120 / 120 Weight 278 lb 0.046 oz Intake: IV 568 / 568 656.5 / 656.5 0 / 0 DOPamine 800 MG/500 ML Premix 268 / 268 656.5 / 656.5 800 mg In 500 ml @ 3 MCG/KG/MIN 16.737 mls/hr IV.CONT TITRATE PRN Rx#:[id number] Flexbumin 25% Inj 100 ML @ 60 100 / 100 mls/hr IV.SIG WITH DIALYSIS PRN Rx#:[id number] Maxipime Inj 1,000 MG In NS Inj 100 / 100 100 ML @ 200 mls/hr IV.SIG Q24H GEOVANNY Rx#:[id number] Cubicin Inj 1,400 MG In NS Inj 100 / 100 100 ML @ 200 mls/hr IV.SIG Q48H GEOVANNY Rx#:[id number] Oral 100 / 100 240 / 240 120 / 120 Output: Urine 0 / 0 0 / 0 Hemodialysis Amount 1000 / 1000 Other: Date of Last Bowel Movement 03/19/18 03/19/18 03/19/18 # Bowel Movements 1 Assessment and Plan - Assessment (1) COPD (chronic obstructive pulmonary disease) Code(s): J44.9 - Chronic obstructive pulmonary disease, unspecified Status: Acute (2) End-stage renal disease on hemodialysis Code(s): N18.6 - End stage renal disease; Z99.2 - Dependence on renal dialysis Status: Acute (3) HBP (high blood pressure) Code(s): I10 - Essential (primary) hypertension Status: Acute (4) Diabetes Code(s): E11.9 - Type 2 diabetes mellitus without complications Status: Acute - Attending Attestation Patient seen and examined. I reviewed and agree with the findings and plan presented. BP low on lower dose dopamine, continue for now. Continue Midodrine, consider to start and titrate Northera if available. Very difficult situation.
--- NOTE | 2018-03-20 09:40 | P.PNID ---
Infectious Disease Brief Note Chart review documentation: vitals stable, blood cultures no growth at 72 hours , US breast with no abscess, clinically does not appear to be infected as no warmth, or any sign of infection. Will stop antibiotics as clinical picture appears to be a dysautonomia per dw [facility] and [employer] . Patient has chronic low blood pressure on midodrine at home. Recs: DC all antibiotics. Follow clinically. If signs of sepsis please cochran culture again. Will sign off please call back if any change in clinical condition or questions. Vital Signs - 24 hr 03/19/18 11:00 03/19/18 15:00 03/19/18 19:00 Temperature 98.6 F 98.8 F Pulse Rate 83 80 87 Respiratory Rate 18 18 Blood Pressure 92/35 L 115/57 L Pulse Oximetry 95 98 03/19/18 20:00 03/19/18 21:26 03/19/18 23:00 Temperature 98.8 F 98.9 F Pulse Rate 87 76 Respiratory Rate 18 18 Blood Pressure 105/60 117/72 Pulse Oximetry 95 95 03/20/18 00:56 03/20/18 03:00 03/20/18 03:19 Temperature 98.9 F Pulse Rate 76 Respiratory Rate 18 Blood Pressure 101/59 L Pulse Oximetry 96 95 03/20/18 03:22 03/20/18 07:00 Temperature 98.2 F Pulse Rate 70 Respiratory Rate Blood Pressure 119/54 L Pulse Oximetry 95 18 L Laboratory Results - last 24 hr 03/19/18 03/19/18 03/19/18 11:49 11:49 12:04 WBC 7.4 RBC 4.38 Hgb 12.6 Hct 39.8 MCV 90.8 MCH 28.8 MCHC 31.7 L RDW 15.1 Plt Count 297 MPV 7.0 Neut % (Auto) 79.1 H Lymph % (Auto) 6.5 L [place] % (Auto) 8.9 H Eos % (Auto) 5.2 H Baso % (Auto) 0.3 Neut # (Auto) 5.8 Lymph # (Auto) 0.5 L [place] # (Auto) 0.7 Eos # (Auto) 0.4 Baso # (Auto) 0.0 WBC Differential . Differential Comment Auto diff final Sodium 137 Potassium 3.4 L Chloride 99 Carbon Dioxide 25.8 Anion Gap 12 BUN 24 H Creatinine 5.38 H Estimated GFR 10 L POC Glucose 138 H Random Glucose 131 H Calcium 9.3 Total Bilirubin 0.4 AST 8 L ALT 10 Alkaline Phosphatase 58 Total Protein 7.7 Albumin 2.8 L 03/19/18 03/19/18 03/20/18 16:59 20:50 03:11 WBC 6.9 RBC 4.39 Hgb 12.7 Hct 40.0 MCV 91.2 MCH 28.9 MCHC 31.7 L RDW 15.2 Plt Count 300 MPV 7.1 Neut % (Auto) 75.4 H Lymph % (Auto) 6.2 L [place] % (Auto) 11.9 H Eos % (Auto) 6.1 H Baso % (Auto) 0.4 Neut # (Auto) 5.2 Lymph # (Auto) 0.4 L [place] # (Auto) 0.8 Eos # (Auto) 0.4 Baso # (Auto) 0.0 WBC Differential . Differential Comment Auto diff final Sodium Potassium Chloride Carbon Dioxide Anion Gap BUN Creatinine Estimated GFR POC Glucose 156 H 162 H Random Glucose Calcium Total Bilirubin AST ALT Alkaline Phosphatase Total Protein Albumin 03/20/18 03/20/18 03:11 07:59 WBC RBC Hgb Hct MCV MCH MCHC RDW Plt Count MPV Neut % (Auto) Lymph % (Auto) [place] % (Auto) Eos % (Auto) Baso % (Auto) Neut # (Auto) Lymph # (Auto) [place] # (Auto) Eos # (Auto) Baso # (Auto) WBC Differential Differential Comment Sodium 138 Potassium 3.6 Chloride 99 Carbon Dioxide 28.2 Anion Gap 11 BUN 29 H Creatinine 6.46 H Estimated GFR 8 L POC Glucose 98 Random Glucose 117 H Calcium 9.0 Total Bilirubin 0.4 AST 4 L ALT 11 Alkaline Phosphatase 57 Total Protein 7.3 Albumin 2.8 L
--- NOTE | 2018-03-20 09:53 | P.PNFP ---
Subjective Interval history: pt having abdominal pain today upper abd Results - Labs Result diagrams: 03/20/18 03:11 03/20/18 03:11 Abnormal lab results 03/19/18 03/19/18 03/19/18 Range/Units 11:49 11:49 12:04 MCHC 31.7 L (32.0-36.0) % Neut % (Auto) 79.1 H (16.0-70.0) % Lymph % (Auto) 6.5 L (9.0-44.0) % Jack % (Auto) 8.9 H (0.0-8.0) % Eos % (Auto) 5.2 H (0.0-4.0) % Lymph # (Auto) 0.5 L (1.0-4.8) th/mm3 Potassium 3.4 L (3.5-5.1) meq/L BUN 24 H (7-18) mg/dL Creatinine 5.38 H (0.50-1.00) mg/dL Estimated GFR 10 L (>89) mL/min POC Glucose 138 H (68-110) mg/dl Random Glucose 131 H (74-106) mg/dL AST 8 L (15-37) U/L Albumin 2.8 L (3.4-5.0) g/dL 03/19/18 03/19/18 03/20/18 Range/Units 16:59 20:50 03:11 MCHC 31.7 L (32.0-36.0) % Neut % (Auto) 75.4 H (16.0-70.0) % Lymph % (Auto) 6.2 L (9.0-44.0) % Jack % (Auto) 11.9 H (0.0-8.0) % Eos % (Auto) 6.1 H (0.0-4.0) % Lymph # (Auto) 0.4 L (1.0-4.8) th/mm3 Potassium (3.5-5.1) meq/L BUN (7-18) mg/dL Creatinine (0.50-1.00) mg/dL Estimated GFR (>89) mL/min POC Glucose 156 H 162 H (68-110) mg/dl Random Glucose (74-106) mg/dL AST (15-37) U/L Albumin (3.4-5.0) g/dL 03/20/18 Range/Units 03:11 MCHC (32.0-36.0) % Neut % (Auto) (16.0-70.0) % Lymph % (Auto) (9.0-44.0) % Jack % (Auto) (0.0-8.0) % Eos % (Auto) (0.0-4.0) % Lymph # (Auto) (1.0-4.8) th/mm3 Potassium (3.5-5.1) meq/L BUN 29 H (7-18) mg/dL Creatinine 6.46 H (0.50-1.00) mg/dL Estimated GFR 8 L (>89) mL/min POC Glucose (68-110) mg/dl Random Glucose 117 H (74-106) mg/dL AST 4 L (15-37) U/L Albumin 2.8 L (3.4-5.0) g/dL Short CBC 03/19/18 03/20/18 Range/Units 11:49 03:11 WBC 7.4 6.9 (4.0-11.0) th/mm3 Hgb 12.6 12.7 (11.6-15.3) gm/dL Hct 39.8 40.0 (35.0-46.0) % Plt Count 297 300 (150-450) th/mm3 BMP 03/19/18 03/20/18 11:49 03:11 Sodium 137 138 Potassium 3.4 L 3.6 Chloride 99 99 Carbon Dioxide 25.8 28.2 BUN 24 H 29 H Creatinine 5.38 H 6.46 H Calcium 9.3 9.0 Liver Function 03/19/18 03/20/18 Range/Units 11:49 03:11 Total Bilirubin 0.4 0.4 (0.2-1.0) mg/dL AST 8 L 4 L (15-37) U/L ALT 10 11 (10-53) U/L Alkaline Phosphatase 58 57 (45-117) U/L Albumin 2.8 L 2.8 L (3.4-5.0) g/dL - Imaging Impressions Soft Tissue Ultrasound 03/19/18 00:00 CONCLUSION: 1. Nonspecific edema, engorged vessels and skin thickening laterally of the right breast. 2. No mass or organized fluid demonstrated. Physical Exam Vital signs: Vital Signs 03/19/18 11:00 03/19/18 15:00 03/19/18 19:00 Temperature 98.6 F 98.8 F Pulse Rate 83 80 87 Respiratory Rate 18 18 Blood Pressure 92/35 L 115/57 L Pulse Oximetry 95 98 03/19/18 20:00 03/19/18 21:26 03/19/18 23:00 Temperature 98.8 F 98.9 F Pulse Rate 87 76 Respiratory Rate 18 18 Blood Pressure 105/60 117/72 Pulse Oximetry 95 95 03/20/18 00:56 03/20/18 03:00 03/20/18 03:19 Temperature 98.9 F Pulse Rate 76 Respiratory Rate 18 Blood Pressure 101/59 L Pulse Oximetry 96 95 03/20/18 03:22 03/20/18 07:00 Temperature 98.2 F Pulse Rate 70 Respiratory Rate Blood Pressure 119/54 L Pulse Oximetry 95 18 L Intake & Output 03/19/18 03/20/18 03/20/18 18:59 06:59 18:59 Intake Total 668 / 668 896.5 / 896.5 120 / 120 Output Total 1000 / 1000 0 / 0 Balance -332 / -332 896.5 / 896.5 120 / 120 Weight 126.1 kg Intake: IV 568 / 568 656.5 / 656.5 0 / 0 DOPamine 800 MG/500 ML Premix 268 / 268 656.5 / 656.5 800 mg In 500 ml @ 3 MCG/KG/MIN 16.737 mls/hr IV.CONT TITRATE PRN Rx#:[id number] Flexbumin 25% Inj 100 ML @ 60 100 / 100 mls/hr IV.SIG WITH DIALYSIS PRN Rx#:[id number] Maxipime Inj 1,000 MG In NS Inj 100 / 100 100 ML @ 200 mls/hr IV.SIG Q24H GEOVANNY Rx#:[id number] Cubicin Inj 1,400 MG In NS Inj 100 / 100 100 ML @ 200 mls/hr IV.SIG Q48H GEOVANNY Rx#:[id number] Oral 100 / 100 240 / 240 120 / 120 Output: Urine 0 / 0 0 / 0 Hemodialysis Amount 1000 / 1000 Other: Date of Last Bowel Movement 03/19/18 03/19/18 03/19/18 # Bowel Movements 1 - Constitutional mild distress - Routine HEENT Exam Head: Present: normocephalic, atraumatic Eye: Present: EOMI, PERRL - Routine Neck Exam Present: supple - Routine Respiratory Exam Present: decreased breath sounds, CTA bilaterally - Routine Cardiovascular Exam Present: RRR - Routine Abdominal Exam Comments: upper abdomonial pain no rebound Assessment and Plan - Assessment (1) Diabetes 1.5, managed as type 1 Code(s): E10.9 - Type 1 diabetes mellitus without complications Status: Acute (2) Abdominal pain Code(s): R10.9 - Unspecified abdominal pain Status: Acute Plan: add protonix from home meds 03/18 resolved at present (3) End-stage renal disease on hemodialysis Code(s): N18.6 - End stage renal disease; Z99.2 - Dependence on renal dialysis Status: Acute Plan: careful hydration and renal consult had hypotension this am resolved with fluids and sugar - Assessment and Plan stabilize fluid balance and sugars has had previous ischemic bowel issues but ct neg last pm and abd pain is upper not lower 03/18 cardiology consulted echo ordered 03/19 had syncope in dialysis yesterday stable dialysis so far today cardiac echo normal will follow fluids closely pt on dopamine drip to be able to tolerate dialysis 03/20 abd pain will image and increase protonix (2) Abdominal pain Qualifiers: Abdominal location: upper abdomen, unspecified Qualified Code(s): R10.10 - Upper abdominal pain, unspecified
--- NOTE | 2018-03-20 17:43 | P.PNCC ---
Subjective Subjective Remarks/Hospital Course: 03/16: is a 57 y/o AAF with complains of abdominal pain, nausea, poor appetite, generalized malaise and weakness of 3 days duration. Patient reports she was sent from a long-term for low blood pressure. Patient reports cramping pain localized to the upper abdomen on admission which is now better and reports it as being intermittent. She reports constipation and no BM for several days prior to admission despite an aggressive bowel regimen. Patient states that she currently has nausea and decreaed appetite but no vomiting and denies any diarrhea. Patient reports prior h.o GERD and gastritis and reports pain is worse upon eating. Patient is HD dependent using a Permacath in her Right groin. 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 Patient also reports being on peritoneal dialysis in past and there is records of possible peritonitis related to PD catheter. She does not make much urine. Her last HD session was on 03/15/18. She has COPD,Morbid Obesity, CHF and sleep apnea and is on Oxygen at baseline. She has been told to wear a CPAP machine for sleep apnea at night but she does not like wearing it so she has not been using it. Patient developed worsening hypotension this morning with systolic blood pressure in the 60s for which a rapid response was called. Patient was evaluated by ID and transferred to the ICU. She received a 500 cc NS bolus on the floor. Critical care consult was requested for hypotension. I spoke with Dr. Cyrus Blas who placed her last dialysis catheter and he tells me that patient usually runs systolic blood pressure in the 80s all the time. When I evaluated the patient following her arrival to the CVICU she was laying in bed and appeared comfortable not in any acute distress. Accurate blood pressure readings have been a challenge as patient has AV fistulas in both upper extremities and nurses have been attempting obtaining blood pressure in the legs. Patient denies any chest pain or shortness of breath. She denies any chills currently. She did complain of some nausea vomiting 4 days prior to presentation. She denies any melena or rectal bleeding or diarrhea. Patient was already evaluated by ID and has been started on empiric antibiotics with suspicion for hemodialysis catheter related bacteremia/sepsis. 03/17: Resting comfortably. Denies any chest pain or shortness of breath. On dopamine 5 mics per KG per minute. 03/18: Worsening hypotension during hemodialysis. I have asked the patient in the ICU following the episode. She was on dopamine which is decreased to 10 mics per KG per minute with systolic blood pressure in the 90s. She is awake and alert. Denies any chest pain or shortness of breath currently. 03/19: Resting comfortably, dialyzed earlier. Dopamine being titrated down. 03/20: Patient remains on dopamine. Had episode of hypotension during dialysis and desaturation for which she was placed on a nonrebreather facemask. She is drowsy but easily arousable. Objective Vital Signs / I&O: Vital Signs 03/19/18 19:00 03/19/18 20:00 03/19/18 21:26 Temperature 98.8 F Pulse Rate 87 87 Respiratory Rate 18 Blood Pressure 105/60 Pulse Oximetry 95 03/19/18 23:00 03/20/18 00:56 03/20/18 03:00 Temperature 98.9 F 98.9 F Pulse Rate 76 76 Respiratory Rate 18 18 Blood Pressure 117/72 101/59 L Pulse Oximetry 95 96 03/20/18 03:19 03/20/18 03:22 03/20/18 07:00 Temperature 98.2 F Pulse Rate 70 Respiratory Rate Blood Pressure 119/54 L Pulse Oximetry 95 95 98 03/20/18 11:00 03/20/18 11:23 03/20/18 15:00 Temperature 98.0 F Pulse Rate 70 72 72 Respiratory Rate 20 Blood Pressure 126/73 Pulse Oximetry 18 L 95 95 Intake & Output 03/19/18 03/20/18 03/20/18 18:59 06:59 18:59 Intake Total 668 / 668 896.5 / 896.5 120 / 120 Output Total 1000 / 1000 0 / 0 Balance -332 / -332 896.5 / 896.5 120 / 120 Weight 126.1 kg Intake: IV 568 / 568 656.5 / 656.5 0 / 0 DOPamine 800 MG/500 ML Premix 268 / 268 656.5 / 656.5 800 mg In 500 ml @ 3 MCG/KG/MIN 16.737 mls/hr IV.CONT TITRATE PRN Rx#:[id number] Flexbumin 25% Inj 100 ML @ 60 100 / 100 mls/hr IV.SIG WITH DIALYSIS PRN Rx#:[id number] Maxipime Inj 1,000 MG In NS Inj 100 / 100 100 ML @ 200 mls/hr IV.SIG Q24H GEOVANNY Rx#:[id number] Cubicin Inj 1,400 MG In NS Inj 100 / 100 100 ML @ 200 mls/hr IV.SIG Q48H GEOVANNY Rx#:[id number] Oral 100 / 100 240 / 240 120 / 120 Output: Urine 0 / 0 0 / 0 Hemodialysis Amount 1000 / 1000 Other: Date of Last Bowel Movement 03/19/18 03/19/18 03/19/18 # Bowel Movements 1 Result Diagrams: 03/20/18 03:11 03/20/18 03:11 Objective Remarks: HEENT/Neuro: Pallor present, No icterus, tongue moist, MARIA ISABEL, drowsy, easily arousable, nonfocal grossly, moving all 4 extremities Neck: No JVD Chest/pulmonary: CTA bilaterally Cardiovascular: S1-S2 regular no gallop or murmur GI/abdomen: Soft, nontender, bowel sounds present Extremities: Warm bilaterally, no edema. Assessment and Plan - Assessment and Plan Plan: Severe sepsis Hypotension Patient has baseline hypotension was on Midodrin. Possible right groin permacath infection related bacteremia suspected Possible ileus secondary to constipation given nausea vomiting. 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 difficile colitis, bilateral upper extremity AV fistula infections, PD catheter related infections. Diabetes mellitus ESRD on hemodialysis plan: Follow neuro status. Cardiovascular: Continue Midodrine. Dopamine gtt. for hypotension. Patient runs baseline systolic blood pressure in the 80s per nephrology. Cardiology following. Pulmonary: Supplemental O2 as needed. Bronchodilators as needed. GI/liver: P.o. diet as tolerated. Renal/: Strict intake output, monitor and replete electrolytes, follow BUN/ creatinine. Hemodialysis per renal ID: Follow-up cultures. ID consult noted. Completed course of empiric antibiotics with IV daptomycin and cefepime. Breast US for rt breast mass did not reveal any abscess Endocrine: Watch for hyperglycemia, SSI for glycemic control if needed. Heme: Follow CBC and coags Prophylaxis: Continues heparin for DVT prophylaxis
--- NOTE | 2018-03-20 18:14 | P.PNNP ---
Subjective Interval history: Patient seen in AM, was alert, no SOB, with nasal cannula. Physical Exam Vital signs: Vital Signs 03/19/18 19:00 03/19/18 20:00 03/19/18 21:26 Temperature 98.8 F Pulse Rate 87 87 Respiratory Rate 18 Blood Pressure 105/60 Pulse Oximetry 95 03/19/18 23:00 03/20/18 00:56 03/20/18 03:00 Temperature 98.9 F 98.9 F Pulse Rate 76 76 Respiratory Rate 18 18 Blood Pressure 117/72 101/59 L Pulse Oximetry 95 96 03/20/18 03:19 03/20/18 03:22 03/20/18 07:00 Temperature 98.2 F Pulse Rate 70 Respiratory Rate Blood Pressure 119/54 L Pulse Oximetry 95 95 98 03/20/18 11:00 03/20/18 11:23 03/20/18 15:00 Temperature 98.0 F 97.8 F Pulse Rate 70 72 80 Respiratory Rate 20 18 Blood Pressure 126/73 113/65 Pulse Oximetry 18 L 95 95 Intake & Output 03/19/18 03/20/18 03/20/18 18:59 06:59 18:59 Intake Total 668 / 668 896.5 / 896.5 120 / 120 Output Total 1000 / 1000 0 / 0 Balance -332 / -332 896.5 / 896.5 120 / 120 Weight 126.1 kg Intake: IV 568 / 568 656.5 / 656.5 0 / 0 DOPamine 800 MG/500 ML Premix 268 / 268 656.5 / 656.5 800 mg In 500 ml @ 3 MCG/KG/MIN 16.737 mls/hr IV.CONT TITRATE PRN Rx#:[id number] Flexbumin 25% Inj 100 ML @ 60 100 / 100 mls/hr IV.SIG WITH DIALYSIS PRN Rx#:[id number] Maxipime Inj 1,000 MG In NS Inj 100 / 100 100 ML @ 200 mls/hr IV.SIG Q24H GEOVANNY Rx#:[id number] Cubicin Inj 1,400 MG In NS Inj 100 / 100 100 ML @ 200 mls/hr IV.SIG Q48H GEOVANNY Rx#:[id number] Oral 100 / 100 240 / 240 120 / 120 Output: Urine 0 / 0 0 / 0 Hemodialysis Amount 1000 / 1000 Other: Date of Last Bowel Movement 03/19/18 03/19/18 03/19/18 # Bowel Movements 1 Narrative: Morbidly obese Not in acute distress. Permacath in RT groin Peripheral IV site ok. Skin folds examined with no obvious infection Unstageable skin ulcers in buttock area. Rt foot 5 digits surgically amputated. Left foot great toe amputated. Scars on right hand Scars on bilateral UE at prior fistulas: no bruit or thrill. Assessment and Plan - Assessment (1) ESRD (end stage renal disease) on dialysis Code(s): N18.6 - End stage renal disease; Z99.2 - Dependence on renal dialysis Status: Acute Plan: 1. End-stage renal disease on hemodialysis MWF HD, last HD Sunday outpatient. Volume status, electrolytes stable. Of note, the patient has right femoral dialysis catheter. This is one of the last possible access sites for the patient. There are no signs of any overt catheter infection at this point and it appears much of her symptoms are gastrointestinal in nature. Continue to monitor at this time. Patient has chronic Hypotension and today after 30 min. of HD, develop same and BP was low, HD was stopped. Now BP is improving. on Dopamine and Midodrine. HD done again today, BP remain stable, with help of Dopamine, BP was stable in AM. I was called by HD RN, that after 30 min of HD, she became un responsive, The BP suddenly drop, HD was stopped and given IV Albumin, BP improved, [employer] [facility] [employer] Technician has seen the patient. 2. Abdominal pain. Ongoing acid reflux symptoms, however feeling better and tolerating diet. Continue to monitor. 3. Chronic obstructive pulmonary disease. The patient's oxygen status is stable. She has been on home oxygen. Continue to monitor. 4. Hypotension. The patient has had chronic hypotension and has been on midodrine. She likely has autonomic dysfunction and has been on dialysis for several years with chronic hypotension. Baseline SBP 80s per patient. Wean pressors as tolerated. 5. Questionable sepsis. Seen with ID. She has been empirically started on cefepime as well as daptomycin in the setting of hypotension. If there is a concern for a catheter infection, this may be exchanged over a guidewire. Continue to followup cultures and follow up with ID. Cultures negative to date. (2) Abdominal pain Code(s): R10.9 - Unspecified abdominal pain Status: Acute Qualifiers: Abdominal location: upper abdomen, unspecified Qualified Code(s): R10.10 - Upper abdominal pain, unspecified (3) Diabetes Code(s): E11.9 - Type 2 diabetes mellitus without complications Status: Acute
--- NOTE | 2018-03-20 20:25 | US ---
EXAM DATE: 03/20/2018 8:14 PM EDT AGE/SEX: 57 years / Female INDICATIONS: Abdominal pain with nausea. CLINICAL DATA: This is the patient's initial encounter. Patient reports that signs and symptoms have been present for 2 weeks and indicates a pain score of 2/10. MEDICAL/SURGICAL HISTORY: Diabetes. Renal disease, end stage. Hypertension. Cholecystectomy. COMPARISON: [facility] – [place], CT ABDOMEN & PELVIS W/O CONTRAST, 03/15/2018. . MEASUREMENTS: Liver:__ 14.7 cm. Common Bile Duct:___ 12mm. Right Kidney:___6.5 x 3.7 x 3.4 cm. Left Kidney:___8.5 x 3.3 x 3.8 cm. Spleen:___Not visualized. Not visualized.. FINDINGS: Liver: Normal echotexture without focal lesion or ductal dilatation. Portal Vein: Hepatopedal flow seen in portal vein. Common Duct: No intraluminal mass or stone visualized. The common bile duct is dilated. Gallbladder: Surgically absent. Pancreas: Not well visualized. Right Kidney: The right kidney is small and echogenic. No hydronephrosis is seen. Left Kidney: The left kidney is small. The cortex is not as echogenic as the right kidney. No hydron ephrosis is seen. There is a 2.7 cm cyst at the upper pole. Ascites: None Pleural Effusion: None Spleen: The spleen could not be visualized on technical grounds. The spleen appears unremarkable on the recent CT examination. Aorta: Non aneurysmal. IVC: There is a central line seen in the IVC. Other: None. CONCLUSION: 1. Small kidneys. The right kidney is echogenic. This appearance is consistent with chronic medical renal disease. 2. Dilatation the common bile duct. This may reflect a reservoir following cholecystectomy. A fillin g defect is not seen within the visualized portion of the common bile duct. Electronically signed by: Damián Platt MD 03/20/2018 8:24 PM EDT
[2018-03-21 04:08] LABS: Baso % (Auto) 0.4 % (0.0-2.0); Eos # (Auto) 0.6 th/mm3 (0.0-0.4); Eos % (Auto) 6.2 % (0.0-4.0); Hemoglobin 12.4 gm/dL (11.6-15.3); Lymph # (Auto) 0.4 th/mm3 (1.0-4.8); Lymph % (Auto) 4.3 % (9.0-44.0); Mean Corpuscular HGB Conc 31.7 % (32.0-36.0); Mean Corpuscular Hemoglobin 28.6 pg (27.0-34.0); Mean Corpuscular Volume 90.1 fL (80.0-100.0); Mean Platelet Volume 7.3 fL (7.0-11.0); Mono # (Auto) 0.9 th/mm3 (0.0-0.9); Mono % (Auto) 8.8 % (0.0-8.0); Neut # (Auto) 8.2 th/mm3 (1.8-7.7); Neut % (Auto) 80.3 % (16.0-70.0); Platelet Count 262 th/mm3 (150-450); Red Blood Count 4.32 mil/mm3 (4.00-5.30); Red Cell Distribution Width 15.3 % (11.6-17.2); White Blood Count 10.2 th/mm3 (4.0-11.0)
[2018-03-21 05:12] LABS: Alanine Aminotransferase 11 U/L (10-53); Albumin 3.1 g/dL (3.4-5.0); Alkaline Phosphatase 54 U/L (45-117); Anion Gap 11 meq/L (5-15); Aspartate Aminotransferase 9 U/L (15-37); Blood Urea Nitrogen 18 mg/dL (7-18); Calcium 8.6 mg/dL (8.5-10.1); Carbon Dioxide 26.5 meq/L (21.0-32.0); Chloride 101 meq/L (98-107); Glomerular Filtration Rate 11 mL/min (>89); Glucose,Random 113 mg/dL (74-106); Sodium 138 meq/L (136-145); Total Protein 7.3 g/dL (6.4-8.2)
[2018-03-21 05:17] LABS: Potassium 3.9 meq/L (3.5-5.1)
[2018-03-21] MEDS: Insulin NovoLOG Aspart Correctional Sugar Inj SQ SCH ×4 (10:02→23:35)
[2018-03-21] MEDS: Calcium Acetate 667 MG Capsule PO SCH ×3 (10:02→18:07)
--- NOTE | 2018-03-21 13:38 | P.PNCA ---
Subjective Interval history: Patient is resting in bed in no apparent distress. She denies any chest pain or increase in SOB. BP is stable Physical Exam Vital signs: Vital Signs 03/20/18 15:00 03/20/18 20:00 03/20/18 22:00 Temperature 97.8 F 97.3 F L Pulse Rate 80 82 Respiratory Rate 18 18 Blood Pressure 113/65 120/54 L Pulse Oximetry 95 99 98 03/20/18 22:46 03/20/18 23:00 03/21/18 00:00 Temperature 98.4 F Pulse Rate 72 81 Respiratory Rate 18 Blood Pressure 127/65 Pulse Oximetry 95 98 03/21/18 04:00 03/21/18 04:01 03/21/18 04:44 Temperature 98.5 F Pulse Rate 75 82 Respiratory Rate 16 16 Blood Pressure 123/59 L Pulse Oximetry 95 96 03/21/18 07:00 03/21/18 11:00 Temperature 98.9 F 98.8 F Pulse Rate 86 89 Respiratory Rate 16 16 Blood Pressure 106/62 133/69 Pulse Oximetry 97 92 L Intake & Output 03/20/18 03/21/18 03/21/18 18:59 06:59 18:59 Intake Total 120 / 120 240 / 240 0 / 0 Output Total 0 / 0 0 / 0 0 / 0 Balance 120 / 120 240 / 240 0 / 0 Weight 131 kg 131 kg Intake: IV 0 / 0 Oral 120 / 120 240 / 240 0 / 0 Output: Urine 0 / 0 0 / 0 0 / 0 Stool 0 / 0 Other: Date of Last Bowel Movement 03/19/18 03/19/18 - Constitutional no acute distress - Routine HEENT Exam Head: Present: normocephalic, atraumatic Eye: Present: PERRL ENT: Present: mucous membranes moist - Routine Neck Exam Present: supple - Routine Respiratory Exam Present: diminished air movement - Routine Cardiovascular Exam Present: RRR - Routine Abdominal Exam Comments: obese - Routine Extremities Exam Comments: No edema - Routine Skin Exam Present: intact, dry - Routine Neurological Exam Present: alert, oriented X3 - Detailed Neurological Exam: Coma Scale Eye Opening: Spontaneous Verbal Response: Oriented Motor Response: Obey commands Gilbert Coma Scale Total: 15 - Routine Psychiatric Exam Present: normal affect, normal thought process Assessment and Plan - Plan Hypotension Pt denies any CP, pressure, palpitations, dizziness or SOB at this time. Pt is scheduled to receive dialysis again tomorrow. Pt is on Dopamine gtt at 4mcgs/kg/ min, BP stable. SR on monitor. No edema noted in the LE. Continue current treatment plan with midodrine for BP support and consider switching patient to [facility] for out patient dialysis. The patient was seen and evaluated by Dr. Francis who participated in care, management and decision making. Discussed Condition With: Nurse
--- NOTE | 2018-03-21 15:11 | P.PNNP ---
Subjective Interval history: Patient is alert, with nasal cannula, mild SOB, no chest pain. Physical Exam Vital signs: Vital Signs 03/20/18 20:00 03/20/18 22:00 03/20/18 22:46 Temperature 97.3 F L Pulse Rate 82 Respiratory Rate 18 Blood Pressure 120/54 L Pulse Oximetry 99 98 95 03/20/18 23:00 03/21/18 00:00 03/21/18 04:00 Temperature 98.4 F 98.5 F Pulse Rate 72 81 75 Respiratory Rate 18 16 Blood Pressure 127/65 123/59 L Pulse Oximetry 98 95 03/21/18 04:01 03/21/18 04:44 03/21/18 07:00 Temperature 98.9 F Pulse Rate 82 86 Respiratory Rate 16 16 Blood Pressure 106/62 Pulse Oximetry 96 97 03/21/18 11:00 03/21/18 14:57 Temperature 98.8 F Pulse Rate 89 Respiratory Rate 16 Blood Pressure 133/69 Pulse Oximetry 92 L 95 Intake & Output 03/20/18 03/21/18 03/21/18 18:59 06:59 18:59 Intake Total 120 / 120 240 / 240 0 / 0 Output Total 0 / 0 0 / 0 0 / 0 Balance 120 / 120 240 / 240 0 / 0 Weight 131 kg 131 kg Intake: IV 0 / 0 Oral 120 / 120 240 / 240 0 / 0 Output: Urine 0 / 0 0 / 0 0 / 0 Stool 0 / 0 Other: Date of Last Bowel Movement 03/19/18 03/19/18 Narrative: Morbidly obese Not in acute distress. Permacath in RT groin Peripheral IV site ok. Skin folds examined with no obvious infection Unstageable skin ulcers in buttock area. Rt foot 5 digits surgically amputated. Left foot great toe amputated. Scars on right hand Scars on bilateral UE at prior fistulas: no bruit or thrill. Assessment and Plan - Assessment (1) ESRD (end stage renal disease) on dialysis Code(s): N18.6 - End stage renal disease; Z99.2 - Dependence on renal dialysis Status: Acute Plan: 1. End-stage renal disease on hemodialysis MWF HD, last HD Sunday outpatient. Volume status, electrolytes stable. Of note, the patient has right femoral dialysis catheter. This is one of the last possible access sites for the patient. There are no signs of any overt catheter infection at this point and it appears much of her symptoms are gastrointestinal in nature. Continue to monitor at this time. Patient has chronic Hypotension and today after 30 min. of HD, develop same and BP was low, HD was stopped. Now BP is improving. on Dopamine and Midodrine. HD done yesterday, was stopped due to sudden drop in the BP. D/W Dr. Rowe, patient unlikely has sepsis, need to rule out PE. Has also SOB, will get CTA in AM before HD. 2. Abdominal pain. Ongoing acid reflux symptoms, however feeling better and tolerating diet. Continue to monitor. 3. Chronic obstructive pulmonary disease. The patient's oxygen status is stable. She has been on home oxygen. Continue to monitor. 4. Hypotension. The patient has had chronic hypotension and has been on midodrine. She likely has autonomic dysfunction and has been on dialysis for several years with chronic hypotension. Baseline SBP 80s per patient. Wean pressors as tolerated. 5. Questionable sepsis. Seen with ID. She has been empirically started on cefepime as well as daptomycin in the setting of hypotension. If there is a concern for a catheter infection, this may be exchanged over a guidewire. Continue to followup cultures and follow up with ID. Cultures negative to date. (2) Abdominal pain Code(s): R10.9 - Unspecified abdominal pain Status: Acute Qualifiers: Abdominal location: upper abdomen, unspecified Qualified Code(s): R10.10 - Upper abdominal pain, unspecified (3) Diabetes Code(s): E11.9 - Type 2 diabetes mellitus without complications Status: Acute
--- NOTE | 2018-03-21 16:41 | P.PNCC ---
Subjective Subjective Remarks/Hospital Course: 03/16: is a 57 y/o AAF with complains of abdominal pain, nausea, poor appetite, generalized malaise and weakness of 3 days duration. Patient reports she was sent from a intermediate for low blood pressure. Patient reports cramping pain localized to the upper abdomen on admission which is now better and reports it as being intermittent. She reports constipation and no BM for several days prior to admission despite an aggressive bowel regimen. Patient states that she currently has nausea and decreaed appetite but no vomiting and denies any diarrhea. Patient reports prior h.o GERD and gastritis and reports pain is worse upon eating. Patient is HD dependent using a Permacath in her Right groin. 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 Patient also reports being on peritoneal dialysis in past and there is records of possible peritonitis related to PD catheter. She does not make much urine. Her last HD session was on 03/15/18. She has COPD,Morbid Obesity, CHF and sleep apnea and is on Oxygen at baseline. She has been told to wear a CPAP machine for sleep apnea at night but she does not like wearing it so she has not been using it. Patient developed worsening hypotension this morning with systolic blood pressure in the 60s for which a rapid response was called. Patient was evaluated by ID and transferred to the ICU. She received a 500 cc NS bolus on the floor. Critical care consult was requested for hypotension. I spoke with Dr. Cyrus Blas who placed her last dialysis catheter and he tells me that patient usually runs systolic blood pressure in the 80s all the time. When I evaluated the patient following her arrival to the CVICU she was laying in bed and appeared comfortable not in any acute distress. Accurate blood pressure readings have been a challenge as patient has AV fistulas in both upper extremities and nurses have been attempting obtaining blood pressure in the legs. Patient denies any chest pain or shortness of breath. She denies any chills currently. She did complain of some nausea vomiting 4 days prior to presentation. She denies any melena or rectal bleeding or diarrhea. Patient was already evaluated by ID and has been started on empiric antibiotics with suspicion for hemodialysis catheter related bacteremia/sepsis. 03/17: Resting comfortably. Denies any chest pain or shortness of breath. On dopamine 5 mics per KG per minute. 03/18: Worsening hypotension during hemodialysis. I have asked the patient in the ICU following the episode. She was on dopamine which is decreased to 10 mics per KG per minute with systolic blood pressure in the 90s. She is awake and alert. Denies any chest pain or shortness of breath currently. 03/19: Resting comfortably, dialyzed earlier. Dopamine being titrated down. 03/20: Patient remains on dopamine. Had episode of hypotension during dialysis and desaturation for which she was placed on a nonrebreather facemask. She is drowsy but easily arousable. 03/21: Remains on dopamine. Scheduled for dialysis tomorrow. Will obtain CT pulmonary angiogram tomorrow prior to dialysis to evaluate for PE as cause for hypotension Objective Vital Signs / I&O: Vital Signs 03/20/18 20:00 03/20/18 22:00 03/20/18 22:46 Temperature 97.3 F L Pulse Rate 82 Respiratory Rate 18 Blood Pressure 120/54 L Pulse Oximetry 99 98 95 03/20/18 23:00 03/21/18 00:00 03/21/18 04:00 Temperature 98.4 F 98.5 F Pulse Rate 72 81 75 Respiratory Rate 18 16 Blood Pressure 127/65 123/59 L Pulse Oximetry 98 95 03/21/18 04:01 03/21/18 04:44 03/21/18 07:00 Temperature 98.9 F Pulse Rate 82 86 Respiratory Rate 16 16 Blood Pressure 106/62 Pulse Oximetry 96 97 03/21/18 11:00 03/21/18 14:57 03/21/18 15:00 Temperature 98.8 F Pulse Rate 89 91 H Respiratory Rate 16 Blood Pressure 133/69 Pulse Oximetry 92 L 95 95 Intake & Output 03/20/18 03/21/18 03/21/18 18:59 06:59 18:59 Intake Total 120 / 120 240 / 240 0 / 0 Output Total 0 / 0 0 / 0 0 / 0 Balance 120 / 120 240 / 240 0 / 0 Weight 131 kg 131 kg Intake: IV 0 / 0 Oral 120 / 120 240 / 240 0 / 0 Output: Urine 0 / 0 0 / 0 0 / 0 Stool 0 / 0 Other: Date of Last Bowel Movement 03/19/18 03/19/18 03/19/18 Result Diagrams: 03/21/18 03:02 03/21/18 03:02 Objective Remarks: HEENT/Neuro: Pallor present, No icterus, tongue moist, MARIA ISABEL, AAO x3, nonfocal grossly, moving all 4 extremities Neck: No JVD Chest/pulmonary: CTA bilaterally Cardiovascular: S1-S2 regular no gallop or murmur GI/abdomen: Soft, nontender, bowel sounds present Extremities: Warm bilaterally, no edema. Assessment and Plan - Assessment and Plan Plan: Severe sepsis Hypotension Patient has baseline hypotension was on Midodrin. Possible right groin permacath infection related bacteremia suspected Possible ileus secondary to constipation given nausea vomiting. 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 difficile colitis, bilateral upper extremity AV fistula infections, PD catheter related infections. Diabetes mellitus ESRD on hemodialysis plan: Follow neuro status. Cardiovascular: Continue Midodrine. Dopamine gtt. for hypotension. Patient runs baseline systolic blood pressure in the 80s per nephrology. Cardiology following. Pulmonary: Supplemental O2 as needed. Bronchodilators as needed. GI/liver: P.o. diet as tolerated. Renal/: Strict intake output, monitor and replete electrolytes, follow BUN/ creatinine. Hemodialysis per renal ID: Follow-up cultures. ID consult noted. Completed course of empiric antibiotics with IV daptomycin and cefepime. Breast US for rt breast mass did not reveal any abscess Endocrine: Watch for hyperglycemia, SSI for glycemic control if needed. Heme: Follow CBC and coags Prophylaxis: Continues heparin for DVT prophylaxis
--- NOTE | 2018-03-21 18:05 | P.PNFP ---
Subjective Interval history: no hemodynamic instability today does have co red itchy eyes and itchy rash beneath breasts and in groin Results - Labs Result diagrams: 03/21/18 03:02 03/21/18 03:02 Abnormal lab results 03/20/18 03/21/18 03/21/18 Range/Units 21:38 03:02 03:02 MCHC 31.7 L (32.0-36.0) % Neut % (Auto) 80.3 H (16.0-70.0) % Lymph % (Auto) 4.3 L (9.0-44.0) % [place] % (Auto) 8.8 H (0.0-8.0) % Eos % (Auto) 6.2 H (0.0-4.0) % Neut # (Auto) 8.2 H (1.8-7.7) th/mm3 Lymph # (Auto) 0.4 L (1.0-4.8) th/mm3 Eos # (Auto) 0.6 H (0.0-0.4) th/mm3 Creatinine 5.03 H (0.50-1.00) mg/dL Estimated GFR 11 L (>89) mL/min POC Glucose 166 H (68-110) mg/dl Random Glucose 113 H (74-106) mg/dL AST 9 L (15-37) U/L Albumin 3.1 L (3.4-5.0) g/dL 03/21/18 03/21/18 Range/Units 11:10 17:27 MCHC (32.0-36.0) % Neut % (Auto) (16.0-70.0) % Lymph % (Auto) (9.0-44.0) % [place] % (Auto) (0.0-8.0) % Eos % (Auto) (0.0-4.0) % Neut # (Auto) (1.8-7.7) th/mm3 Lymph # (Auto) (1.0-4.8) th/mm3 Eos # (Auto) (0.0-0.4) th/mm3 Creatinine (0.50-1.00) mg/dL Estimated GFR (>89) mL/min POC Glucose 120 H 113 H (68-110) mg/dl Random Glucose (74-106) mg/dL AST (15-37) U/L Albumin (3.4-5.0) g/dL Short CBC 03/21/18 Range/Units 03:02 WBC 10.2 (4.0-11.0) th/mm3 Hgb 12.4 (11.6-15.3) gm/dL Hct 39.0 (35.0-46.0) % Plt Count 262 (150-450) th/mm3 BMP 03/21/18 03:02 Sodium 138 Potassium 3.9 Chloride 101 Carbon Dioxide 26.5 BUN 18 Creatinine 5.03 H Calcium 8.6 Liver Function 03/21/18 Range/Units 03:02 Total Bilirubin 0.5 (0.2-1.0) mg/dL AST 9 L (15-37) U/L ALT 11 (10-53) U/L Alkaline Phosphatase 54 (45-117) U/L Albumin 3.1 L (3.4-5.0) g/dL - Imaging Impressions Abdomen Ultrasound 03/20/18 00:00 CONCLUSION: 1. Small kidneys. The right kidney is echogenic. This appearance is consistent with chronic medical renal disease. 2. Dilatation the common bile duct. This may reflect a reservoir following cholecystectomy. A filling defect is not seen within the visualized portion of the common bile duct. Physical Exam Vital signs: Vital Signs 03/20/18 20:00 03/20/18 22:00 03/20/18 22:46 Temperature 97.3 F L Pulse Rate 82 Respiratory Rate 18 Blood Pressure 120/54 L Pulse Oximetry 99 98 95 03/20/18 23:00 03/21/18 00:00 03/21/18 04:00 Temperature 98.4 F 98.5 F Pulse Rate 72 81 75 Respiratory Rate 18 16 Blood Pressure 127/65 123/59 L Pulse Oximetry 98 95 03/21/18 04:01 03/21/18 04:44 03/21/18 07:00 Temperature 98.9 F Pulse Rate 82 86 Respiratory Rate 16 16 Blood Pressure 106/62 Pulse Oximetry 96 97 03/21/18 11:00 03/21/18 14:57 03/21/18 15:00 Temperature 98.8 F 98.8 F Pulse Rate 89 94 H Respiratory Rate 16 22 Blood Pressure 133/69 119/63 Pulse Oximetry 92 L 95 97 Intake & Output 03/20/18 03/21/18 03/21/18 18:59 06:59 18:59 Intake Total 120 / 120 240 / 240 0 / 0 Output Total 0 / 0 0 / 0 0 / 0 Balance 120 / 120 240 / 240 0 / 0 Weight 131 kg 131 kg Intake: IV 0 / 0 Oral 120 / 120 240 / 240 0 / 0 Output: Urine 0 / 0 0 / 0 0 / 0 Stool 0 / 0 Other: Date of Last Bowel Movement 03/19/18 03/19/18 03/19/18 - Constitutional no acute distress - Routine HEENT Exam Head: Present: normocephalic, atraumatic Eye: Present: EOMI, PERRL, scleral injection ENT: Present: mucous membranes moist - Routine Neck Exam Present: supple - Routine Respiratory Exam Present: decreased breath sounds, CTA bilaterally - Routine Cardiovascular Exam Present: RRR - Routine Skin Exam Present: rash Assessment and Plan - Assessment (1) Diabetes 1.5, managed as type 1 Code(s): E10.9 - Type 1 diabetes mellitus without complications Status: Acute (2) Abdominal pain Code(s): R10.9 - Unspecified abdominal pain Status: Acute Plan: add protonix from home meds 03/18 resolved at present (3) End-stage renal disease on hemodialysis Code(s): N18.6 - End stage renal disease; Z99.2 - Dependence on renal dialysis Status: Acute Plan: careful hydration and renal consult had hypotension this am resolved with fluids and sugar - Assessment and Plan stabilize fluid balance and sugars has had previous ischemic bowel issues but ct neg last pm and abd pain is upper not lower 03/18 cardiology consulted echo ordered 03/19 had syncope in dialysis yesterday stable dialysis so far today cardiac echo normal will follow fluids closely pt on dopamine drip to be able to tolerate dialysis 03/20 abd pain will image and increase protonix (2) Abdominal pain Qualifiers: Abdominal location: upper abdomen, unspecified Qualified Code(s): R10.10 - Upper abdominal pain, unspecified
[2018-03-21] MEDS: Tobramycin 0.3% Opth Drops 5 ML Bottle EACH EYE SCH ×2 (18:10→23:37)
[2018-03-21] MEDS: DOPamine 800 MG/500 ML Premix 800 MG/500 ML PLAST..BAG IV.CONT PRN (21:05)
[2018-03-22 04:14] LABS: Alanine Aminotransferase 12 U/L (10-53); Albumin 3.1 g/dL (3.4-5.0); Alkaline Phosphatase 56 U/L (45-117); Anion Gap 10 meq/L (5-15); Aspartate Aminotransferase 5 U/L (15-37); Blood Urea Nitrogen 25 mg/dL (7-18); Calcium 9.3 mg/dL (8.5-10.1); Carbon Dioxide 28.9 meq/L (21.0-32.0); Chloride 99 meq/L (98-107); Glomerular Filtration Rate 8 mL/min (>89); Glucose,Random 105 mg/dL (74-106); Potassium 3.6 meq/L (3.5-5.1); Sodium 138 meq/L (136-145); Total Protein 7.6 g/dL (6.4-8.2)
[2018-03-22] MEDS: Insulin NovoLOG Aspart Correctional Sugar Inj SQ SCH ×3 (08:46→18:51)
[2018-03-22] MEDS: Tobramycin 0.3% Opth Drops 5 ML Bottle EACH EYE SCH ×3 (08:50→22:22)
[2018-03-22] MEDS: Calcium Acetate 667 MG Capsule PO SCH ×2 (13:38→22:18)
--- NOTE | 2018-03-22 14:46 | P.PNCA ---
Subjective Interval history: Patient lying in bed in no acute distress. Currently off dopamine drip. BP is stable. Dialysis currently on hold, pending CTA chest to rule out PE. Patient reports an increase in SOB. Physical Exam Vital signs: Vital Signs 03/21/18 14:57 03/21/18 15:00 03/21/18 19:00 Temperature 98.8 F 99.1 F Pulse Rate 94 H 72 Respiratory Rate 22 20 Blood Pressure 119/63 105/67 Pulse Oximetry 95 97 95 03/21/18 21:44 03/21/18 23:00 03/22/18 03:00 Temperature 98.9 F 98.5 F Pulse Rate 68 67 Respiratory Rate 12 12 Blood Pressure 117/64 124/73 Pulse Oximetry 95 95 98 03/22/18 07:00 03/22/18 07:31 Temperature 98.3 F Pulse Rate 86 Respiratory Rate 16 Blood Pressure 112/77 Pulse Oximetry 94 L 97 Intake & Output 03/21/18 03/22/18 03/22/18 18:59 06:59 18:59 Intake Total 0 / 0 45 / 45 Output Total 0 / 0 Balance 0 / 0 45 / 45 Weight 131 kg 131 kg Intake: IV 45 / 45 DOPamine 800 MG/500 ML Premix 45 / 45 800 mg In 500 ml @ 3 MCG/KG/MIN 16.737 mls/hr IV.CONT TITRATE PRN Rx#:[id number] Oral 0 / 0 Output: Urine 0 / 0 Other: Date of Last Bowel Movement 03/19/18 03/22/18 - Constitutional mild distress, morbidly obese, cooperative - Routine HEENT Exam Head: Present: normocephalic, atraumatic Eye: Present: PERRL, normal accommodation ENT: Present: mucous membranes moist - Routine Neck Exam Present: supple - Routine Respiratory Exam Present: distant breath sounds - Routine Cardiovascular Exam Present: RRR - Routine Abdominal Exam Present: soft - Routine Skin Exam Present: intact, dry - Routine Neurological Exam Present: alert, oriented X3 - Detailed Neurological Exam: Coma Scale Eye Opening: Spontaneous Verbal Response: Oriented Motor Response: Obey commands Gilbert Coma Scale Total: 15 - Routine Psychiatric Exam Present: normal affect, cooperative Assessment and Plan - Plan Hypotension SOB -BP stable. Denies any further syncopal episodes. Currently off dopamine drip. Dialysis on hold today. Pending CTA chest. Continue current treatment plan with midodrine for BP support and consider switching patient to [facility] for out patient dialysis. -She reports an increase in SOB. No edema noted in the LE. Pt denies any CP, pressure, palpitations, or dizziness. Pending CTA chest to rule out PE. -Pt requests physical therapy, will defer to attending. Will need to monitor orthostatic BP carefully. The patient was seen and evaluated by Dr. Francis who participated in care, management and decision making.
--- NOTE | 2018-03-22 15:02 | P.PNNP ---
Subjective Interval history: Patient seen in AM, alert, no SOB, no dizziness. Physical Exam Vital signs: Vital Signs 03/21/18 19:00 03/21/18 21:44 03/21/18 23:00 Temperature 99.1 F 98.9 F Pulse Rate 72 68 Respiratory Rate 20 12 Blood Pressure 105/67 117/64 Pulse Oximetry 95 95 95 03/22/18 03:00 03/22/18 07:00 03/22/18 07:31 Temperature 98.5 F 98.3 F Pulse Rate 67 86 Respiratory Rate 12 16 Blood Pressure 124/73 112/77 Pulse Oximetry 98 94 L 97 Intake & Output 03/21/18 03/22/18 03/22/18 18:59 06:59 18:59 Intake Total 0 / 0 45 / 45 Output Total 0 / 0 Balance 0 / 0 45 / 45 Weight 131 kg 131 kg Intake: IV 45 / 45 DOPamine 800 MG/500 ML Premix 45 / 45 800 mg In 500 ml @ 3 MCG/KG/MIN 16.737 mls/hr IV.CONT TITRATE PRN Rx#:[id number] Oral 0 / 0 Output: Urine 0 / 0 Other: Date of Last Bowel Movement 03/19/18 03/22/18 Narrative: Morbidly obese Not in acute distress. Permacath in RT groin Peripheral IV site ok. Skin folds examined with no obvious infection Un stageable skin ulcers in buttock area. Rt foot 5 digits surgically amputated. Left foot great toe amputated. Scars on right hand Scars on bilateral UE at prior fistulas: no bruit or thrill. Assessment and Plan - Assessment (1) ESRD (end stage renal disease) on dialysis Code(s): N18.6 - End stage renal disease; Z99.2 - Dependence on renal dialysis Status: Acute Plan: 1. End-stage renal disease on hemodialysis MWF HD, last HD Sunday outpatient. Volume status, electrolytes stable. Of note, the patient has right femoral dialysis catheter. This is one of the last possible access sites for the patient. There are no signs of any overt catheter infection at this point and it appears much of her symptoms are gastrointestinal in nature. Continue to monitor at this time. Patient has chronic Hypotension and today after 30 min. of HD, develop same and BP was low, HD was stopped. Now BP is improving. on Dopamine and Midodrine. HD will be today after the CTA. BP is stable so far. 2. Abdominal pain. Ongoing acid reflux symptoms, however feeling better and tolerating diet. Continue to monitor. 3. Chronic obstructive pulmonary disease. The patient's oxygen status is stable. She has been on home oxygen. Continue to monitor. 4. Hypotension. The patient has had chronic hypotension and has been on midodrine. She likely has autonomic dysfunction and has been on dialysis for several years with chronic hypotension. Baseline SBP 80s per patient. Wean pressors as tolerated. 5. Questionable sepsis. Seen with ID. She has been empirically started on cefepime as well as daptomycin in the setting of hypotension. If there is a concern for a catheter infection, this may be exchanged over a guidewire. Continue to followup cultures and follow up with ID. Cultures negative to date. (2) Abdominal pain Code(s): R10.9 - Unspecified abdominal pain Status: Acute Qualifiers: Abdominal location: upper abdomen, unspecified Qualified Code(s): R10.10 - Upper abdominal pain, unspecified (3) Diabetes Code(s): E11.9 - Type 2 diabetes mellitus without complications Status: Acute
--- NOTE | 2018-03-22 15:51 | P.PNCC ---
Subjective Subjective Remarks/Hospital Course: 03/16: is a 57 y/o AAF with complains of abdominal pain, nausea, poor appetite, generalized malaise and weakness of 3 days duration. Patient reports she was sent from a [facility] for low blood pressure. Patient reports cramping pain localized to the upper abdomen on admission which is now better and reports it as being intermittent. She reports constipation and no BM for several days prior to admission despite an aggressive bowel regimen. Patient states that she currently has nausea and decreaed appetite but no vomiting and denies any diarrhea. Patient reports prior h.o GERD and gastritis and reports pain is worse upon eating. Patient is HD dependent using a Permacath in her Right groin. 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 Patient also reports being on peritoneal dialysis in past and there is records of possible peritonitis related to PD catheter. She does not make much urine. Her last HD session was on 03/15/18. She has COPD,Morbid Obesity, CHF and sleep apnea and is on Oxygen at baseline. She has been told to wear a CPAP machine for sleep apnea at night but she does not like wearing it so she has not been using it. Patient developed worsening hypotension this morning with systolic blood pressure in the 60s for which a rapid response was called. Patient was evaluated by ID and transferred to the ICU. She received a 500 cc NS bolus on the floor. Critical care consult was requested for hypotension. I spoke with Dr. Cyrus Blas who placed her last dialysis catheter and he tells me that patient usually runs systolic blood pressure in the 80s all the time. When I evaluated the patient following her arrival to the CVICU she was laying in bed and appeared comfortable not in any acute distress. Accurate blood pressure readings have been a challenge as patient has AV fistulas in both upper extremities and nurses have been attempting obtaining blood pressure in the legs. Patient denies any chest pain or shortness of breath. She denies any chills currently. She did complain of some nausea vomiting 4 days prior to presentation. She denies any melena or rectal bleeding or diarrhea. Patient was already evaluated by ID and has been started on empiric antibiotics with suspicion for hemodialysis catheter related bacteremia/sepsis. 03/17: Resting comfortably. Denies any chest pain or shortness of breath. On dopamine 5 mics per KG per minute. 03/18: Worsening hypotension during hemodialysis. I have asked the patient in the ICU following the episode. She was on dopamine which is decreased to 10 mics per KG per minute with systolic blood pressure in the 90s. She is awake and alert. Denies any chest pain or shortness of breath currently. 03/19: Resting comfortably, dialyzed earlier. Dopamine being titrated down. 03/20: Patient remains on dopamine. Had episode of hypotension during dialysis and desaturation for which she was placed on a nonrebreather facemask. She is drowsy but easily arousable. 03/21: Remains on dopamine. Scheduled for dialysis tomorrow. Will obtain CT pulmonary angiogram tomorrow prior to dialysis to evaluate for PE as cause for hypotension 03/22: Awake and alert. On dopamine for hypotension. Awaiting CT pulmonary angiogram. Objective Vital Signs / I&O: Vital Signs 03/21/18 19:00 03/21/18 21:44 03/21/18 23:00 Temperature 99.1 F 98.9 F Pulse Rate 72 68 Respiratory Rate 20 12 Blood Pressure 105/67 117/64 Pulse Oximetry 95 95 95 03/22/18 03:00 03/22/18 07:00 03/22/18 07:31 Temperature 98.5 F 98.3 F Pulse Rate 67 86 Respiratory Rate 12 16 Blood Pressure 124/73 112/77 Pulse Oximetry 98 94 L 97 Intake & Output 03/21/18 03/22/18 03/22/18 18:59 06:59 18:59 Intake Total 0 / 0 45 / 45 Output Total 0 / 0 Balance 0 / 0 45 / 45 Weight 131 kg 131 kg Intake: IV 45 / 45 DOPamine 800 MG/500 ML Premix 45 / 45 800 mg In 500 ml @ 3 MCG/KG/MIN 16.737 mls/hr IV.CONT TITRATE PRN Rx#:[id number] Oral 0 / 0 Output: Urine 0 / 0 Other: Date of Last Bowel Movement 03/19/18 03/22/18 Result Diagrams: 03/21/18 03:02 03/22/18 02:45 Objective Remarks: HEENT/Neuro: Pallor present, No icterus, tongue moist, MARIA ISABEL, AAO x3, nonfocal grossly, moving all 4 extremities Neck: No JVD Chest/pulmonary: CTA bilaterally Cardiovascular: S1-S2 regular no gallop or murmur GI/abdomen: Soft, nontender, bowel sounds present Extremities: Warm bilaterally, no edema. Assessment and Plan - Assessment and Plan Plan: Severe sepsis Hypotension Patient has baseline hypotension was on Midodrin. Possible right groin permacath infection related bacteremia suspected Possible ileus secondary to constipation given nausea vomiting. 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 difficile colitis, bilateral upper extremity AV fistula infections, PD catheter related infections. Diabetes mellitus ESRD on hemodialysis plan: Follow neuro status. Cardiovascular: Continue Midodrine. Dopamine gtt. for hypotension. Patient runs baseline systolic blood pressure in the 80s per nephrology. Cardiology following. Pulmonary: Supplemental O2 as needed. Bronchodilators as needed. Awaiting CT pulm angiogram. GI/liver: P.o. diet as tolerated. Renal/: Strict intake output, monitor and replete electrolytes, follow BUN/ creatinine. Hemodialysis per renal ID: Follow-up cultures. ID consult noted. Completed course of empiric antibiotics with IV daptomycin and cefepime. Breast US for rt breast mass did not reveal any abscess Endocrine: Watch for hyperglycemia, SSI for glycemic control if needed. Heme: Follow CBC and coags Prophylaxis: Continues heparin for DVT prophylaxis
--- NOTE | 2018-03-22 16:50 | CT ---
EXAM DATE: 03/22/2018 4:46 PM EDT AGE/SEX: 57 years / Female INDICATIONS: Shortness of breath. CLINICAL DATA: This is the patient's initial encounter. Patient reports that signs and symptoms have been present for 1 day and indicates a pain score of 0/10. MEDICAL/SURGICAL HISTORY: Diabetes. Chronic obstructive pulmonary disease. Dialysis. Appendectomy . RADIATION DOSE: 10.89 CTDI (mGy) COMPARISON: No prior exams available for comparison. TECHNIQUE: Volumetric scanning was performed using a multi-row detector CT scanner during bolus infu chika of 75 ml Omnipaque 350 (iohexol) nonionic water-soluble contrast as a single exam dose. The nadira a was post processed with a variety of visualization algorithms including full volume maximum intensi ty projection and sliding thin slab reformation. Using automated exposure control and adjustment of t he mA and/or kV according to patient size, radiation dose was kept as low as reasonably achievable to obtain optimal diagnostic quality images. DICOM format image data is available electronically for r eview and comparison. FINDINGS: Patient has a dialysis catheter entering from below. Fine interstitial changes are seen a patchy distribution in both lungs. There are minimal bibasilar parenchymal changes evident with trace pleural effusion. There is no evidence for central pulmonary emboli. Moderate coronary calcifications are evident. The upper abdominal contents are unremarkable. CONCLUSION: 1. Negative for central pulmonary emboli. 2. Small bilateral pleural effusions 3. No overt congestive failure. Electronically signed by: Ronn Corona MD 03/22/2018 4:49 PM EDT
[2018-03-22] MEDS: Heparin 10,000 UNITS/10 ML Vial (for IV use) OTHER PRN (17:35)
[2018-03-22] MEDS: Albumin Human 25% Inj 100 ML IV.SIG PRN ×2 (17:35→17:37)
--- NOTE | 2018-03-22 18:57 | P.PNFP ---
Subjective Interval history: resting quietly eye gtts have helped eyes Results - Labs Result diagrams: 03/21/18 03:02 03/22/18 02:45 Abnormal lab results 03/21/18 03/22/18 Range/Units 21:12 02:45 BUN 25 H (7-18) mg/dL Creatinine 6.55 H (0.50-1.00) mg/dL Estimated GFR 8 L (>89) mL/min POC Glucose 153 H (68-110) mg/dl AST 5 L (15-37) U/L Albumin 3.1 L (3.4-5.0) g/dL BMP 03/22/18 02:45 Sodium 138 Potassium 3.6 Chloride 99 Carbon Dioxide 28.9 BUN 25 H Creatinine 6.55 H Calcium 9.3 Liver Function 03/22/18 Range/Units 02:45 Total Bilirubin 0.4 (0.2-1.0) mg/dL AST 5 L (15-37) U/L ALT 12 (10-53) U/L Alkaline Phosphatase 56 (45-117) U/L Albumin 3.1 L (3.4-5.0) g/dL - Imaging Impressions Chest CTA 03/22/18 00:00 CONCLUSION: 1. Negative for central pulmonary emboli. 2. Small bilateral pleural effusions 3. No overt congestive failure. Physical Exam Vital signs: Vital Signs 03/21/18 19:00 03/21/18 21:44 03/21/18 23:00 Temperature 99.1 F 98.9 F Pulse Rate 72 68 Respiratory Rate 20 12 Blood Pressure 105/67 117/64 Pulse Oximetry 95 95 95 03/22/18 03:00 03/22/18 07:00 03/22/18 07:31 Temperature 98.5 F 98.3 F Pulse Rate 67 86 Respiratory Rate 12 16 Blood Pressure 124/73 112/77 Pulse Oximetry 98 94 L 97 03/22/18 11:00 03/22/18 15:00 Temperature 98.6 F 98.6 F Pulse Rate 79 79 Respiratory Rate 16 16 Blood Pressure 128/71 106/68 Pulse Oximetry 95 93 L Intake & Output 03/21/18 03/22/18 03/22/18 18:59 06:59 18:59 Intake Total 0 / 0 45 / 45 700 / 700 Output Total 0 / 0 0 / 0 Balance 0 / 0 45 / 45 700 / 700 Weight 131 kg 131 kg Intake: IV 45 / 45 200 / 200 DOPamine 800 MG/500 ML Premix 45 / 45 800 mg In 500 ml @ 3 MCG/KG/MIN 16.737 mls/hr IV.CONT TITRATE PRN Rx#:[id number] Flexbumin 25% Inj 100 ML @ 60 200 / 200 mls/hr IV.SIG WITH DIALYSIS PRN Rx#:[id number] Oral 0 / 0 500 / 500 Output: Urine 0 / 0 0 / 0 Other: Date of Last Bowel Movement 03/19/18 03/22/18 - Constitutional no acute distress - Routine HEENT Exam Head: Present: normocephalic, atraumatic Eye: Present: EOMI, PERRL ENT: Present: mucous membranes moist - Routine Neck Exam Present: supple - Routine Respiratory Exam Present: decreased breath sounds, CTA bilaterally - Routine Cardiovascular Exam Present: RRR - Routine Abdominal Exam Present: soft, normoactive bowel sounds Assessment and Plan - Assessment (1) Diabetes 1.5, managed as type 1 Code(s): E10.9 - Type 1 diabetes mellitus without complications Status: Acute (2) Abdominal pain Code(s): R10.9 - Unspecified abdominal pain Status: Acute Plan: add protonix from home meds 03/18 resolved at present (3) End-stage renal disease on hemodialysis Code(s): N18.6 - End stage renal disease; Z99.2 - Dependence on renal dialysis Status: Acute Plan: careful hydration and renal consult had hypotension this am resolved with fluids and sugar - Assessment and Plan stabilize fluid balance and sugars has had previous ischemic bowel issues but ct neg last pm and abd pain is upper not lower 03/18 cardiology consulted echo ordered 03/19 had syncope in dialysis yesterday stable dialysis so far today cardiac echo normal will follow fluids closely pt on dopamine drip to be able to tolerate dialysis 03/20 abd pain will image and increase protonix 03/22 gonzalo add PT (2) Abdominal pain Qualifiers: Abdominal location: upper abdomen, unspecified Qualified Code(s): R10.10 - Upper abdominal pain, unspecified
[2018-03-23] MEDS: Insulin NovoLOG Aspart Correctional Sugar Inj SQ SCH ×5 (00:41→21:07)
[2018-03-23] MEDS: Tobramycin 0.3% Opth Drops 5 ML Bottle EACH EYE SCH ×5 (00:41→20:59)
[2018-03-23 04:27] LABS: Alanine Aminotransferase 11 U/L (10-53); Albumin 3.5 g/dL (3.4-5.0); Alkaline Phosphatase 53 U/L (45-117); Anion Gap 9 meq/L (5-15); Aspartate Aminotransferase 5 U/L (15-37); Blood Urea Nitrogen 13 mg/dL (7-18); Calcium 9.2 mg/dL (8.5-10.1); Carbon Dioxide 29.1 meq/L (21.0-32.0); Chloride 100 meq/L (98-107); Glomerular Filtration Rate 13 mL/min (>89); Glucose,Random 133 mg/dL (74-106); Sodium 138 meq/L (136-145); Total Protein 7.8 g/dL (6.4-8.2)
[2018-03-23] MEDS: Calcium Acetate 667 MG Capsule PO SCH ×3 (09:54→17:54)
--- NOTE | 2018-03-23 10:46 | P.PNNP ---
Subjective Interval history: Resting comfortably with no complaints. Hemodialysis yesterday <Tami Owens - Last Filed: 03/23/18 10:39> Physical Exam Vital signs: Vital Signs 03/22/18 11:00 03/22/18 15:00 03/22/18 19:00 Temperature 98.6 F 98.6 F 99 F Pulse Rate 79 79 108 H Respiratory Rate 16 16 12 Blood Pressure 128/71 106/68 145/78 H Pulse Oximetry 95 93 L 92 L 03/22/18 23:00 03/22/18 23:04 03/23/18 03:00 Temperature 98.9 F 98.8 F Pulse Rate 93 H 72 Respiratory Rate 12 16 Blood Pressure 148/80 H 130/68 Pulse Oximetry 94 L 97 94 L 03/23/18 07:00 Temperature 98.5 F Pulse Rate 91 H Respiratory Rate 16 Blood Pressure 113/60 Pulse Oximetry 96 Intake & Output 03/22/18 03/23/18 03/23/18 18:59 06:59 18:59 Intake Total 700 / 700 193 / 193 Output Total 0 / 0 1999 Balance 700 / 700 -1807 / -1807 Weight 127 kg Intake: IV 200 / 200 193 / 193 DOPamine 800 MG/500 ML Premix 193 / 193 800 mg In 500 ml @ 3 MCG/KG/MIN 16.737 mls/hr IV.CONT TITRATE PRN Rx#:[id number] Flexbumin 25% Inj 100 ML @ 60 200 / 200 mls/hr IV.SIG WITH DIALYSIS PRN Rx#:[id number] Oral 500 / 500 Output: Urine 0 / 0 Hemodialysis Amount 1999 Other: Date of Last Bowel Movement 03/22/18 03/22/18 # Bowel Movements 0 - Constitutional no acute distress, obese - Routine HEENT Exam Head: Present: normocephalic ENT: Present: mucous membranes moist - Routine Neck Exam Present: supple. Absent: JVD - Routine Respiratory Exam Present: decreased breath sounds. Absent: rales, rhonchi - Routine Cardiovascular Exam Present: RRR - Routine Abdominal Exam Present: soft, normoactive bowel sounds Comments: large - Routine Extremities Exam Present: vascular access Comments: right groin - Routine Skin Exam Present: dry, warm - Routine Neurological Exam Present: alert, oriented X3 - Routine Psychiatric Exam Present: cooperative <Tami Owens - Last Filed: 03/23/18 10:39> Vital signs: Vital Signs 03/23/18 11:00 03/23/18 15:00 03/23/18 19:00 Temperature 98.7 F 98.5 F 98.4 F Pulse Rate 71 73 87 Respiratory Rate 16 18 20 Blood Pressure 126/81 145/80 H 111/60 Pulse Oximetry 97 99 97 03/23/18 22:20 03/23/18 23:00 03/24/18 03:00 Temperature 98.6 F 99.4 F Pulse Rate 84 84 Respiratory Rate 20 20 Blood Pressure 130/60 123/54 L Pulse Oximetry 97 97 97 03/24/18 07:00 03/24/18 08:25 Temperature 98.4 F Pulse Rate 85 Respiratory Rate 18 Blood Pressure 122/81 Pulse Oximetry 98 95 Intake & Output 03/23/18 03/24/18 03/24/18 18:59 06:59 18:59 Intake Total 600 / 600 240 / 240 Output Total 0 / 0 0 / 0 Balance 600 / 600 240 / 240 Weight 126.3 kg Intake: Oral 600 / 600 240 / 240 Output: Urine 0 / 0 0 / 0 Other: Date of Last Bowel Movement 03/23/18 03/23/18 # Bowel Movements 1 <Dashawn Winston - Last Filed: 03/24/18 10:09> Assessment and Plan - Assessment (1) ESRD (end stage renal disease) on dialysis Code(s): N18.6 - End stage renal disease; Z99.2 - Dependence on renal dialysis Status: Acute Plan: 1. End-stage renal disease on hemodialysis MWF HD, Volume status, electrolytes stable. Of note, the patient has right femoral dialysis catheter. This is one of the last possible access sites for the patient. There are no signs of any overt catheter infection at this point and it appears much of her symptoms are gastrointestinal in nature. Continue to monitor at this time. Now BP is improving. Continue Midodrine. Avoid IVF administration Hemodialysis yesterday with UF of 2 liters Next hemodialysis planned for Sunday 2. Abdominal pain. Ongoing acid reflux symptoms, however feeling better and tolerating diet. Continue to monitor. 3. Chronic obstructive pulmonary disease. The patient's oxygen status is stable. She has been on home oxygen. Continue to monitor. 4. Hypotension. The patient has had chronic hypotension and has been on midodrine. She likely has autonomic dysfunction and has been on dialysis for several years with chronic hypotension. Baseline SBP 80s per patient. Continue midodrine 5. Questionable sepsis. Seen with ID. Antibiotics discontinued. Afebrile (2) Abdominal pain Code(s): R10.9 - Unspecified abdominal pain Status: Acute Qualifiers: Abdominal location: upper abdomen, unspecified Qualified Code(s): R10.10 - Upper abdominal pain, unspecified (3) Diabetes Code(s): E11.9 - Type 2 diabetes mellitus without complications Status: Acute <Tami Owens - Last Filed: 03/23/18 10:39> - Assessment (1) ESRD (end stage renal disease) on dialysis Code(s): N18.6 - End stage renal disease; Z99.2 - Dependence on renal dialysis Status: Acute (2) Abdominal pain Code(s): R10.9 - Unspecified abdominal pain Status: Acute Qualifiers: Abdominal location: upper abdomen, unspecified Qualified Code(s): R10.10 - Upper abdominal pain, unspecified (3) Diabetes Code(s): E11.9 - Type 2 diabetes mellitus without complications Status: Acute - Attending Attestation Patient seen and examined, agree with above. HD done yesterday, BP is stable, off Dopamine. <Dashawn Winston - Last Filed: 03/24/18 10:09>
--- NOTE | 2018-03-23 12:42 | P.PNFP ---
Subjective Interval history: feeling well off dopamine now ears feel plugged Results - Labs Result diagrams: 03/21/18 03:02 03/23/18 03:20 Abnormal lab results 03/23/18 03/23/18 Range/Units 03:20 11:36 Creatinine 4.37 H (0.50-1.00) mg/dL Estimated GFR 13 L (>89) mL/min POC Glucose 137 H (68-110) mg/dl Random Glucose 133 H (74-106) mg/dL AST 5 L (15-37) U/L BMP 03/23/18 03:20 Sodium 138 Potassium 4.0 Chloride 100 Carbon Dioxide 29.1 BUN 13 Creatinine 4.37 H Calcium 9.2 Liver Function 03/23/18 Range/Units 03:20 Total Bilirubin 0.5 (0.2-1.0) mg/dL AST 5 L (15-37) U/L ALT 11 (10-53) U/L Alkaline Phosphatase 53 (45-117) U/L Albumin 3.5 (3.4-5.0) g/dL - Imaging Impressions Chest CTA 03/22/18 00:00 CONCLUSION: 1. Negative for central pulmonary emboli. 2. Small bilateral pleural effusions 3. No overt congestive failure. Physical Exam Vital signs: Vital Signs 03/22/18 15:00 03/22/18 19:00 03/22/18 23:00 Temperature 98.6 F 99 F 98.9 F Pulse Rate 79 108 H 93 H Respiratory Rate 16 12 12 Blood Pressure 106/68 145/78 H 148/80 H Pulse Oximetry 93 L 92 L 94 L 03/22/18 23:04 03/23/18 03:00 03/23/18 07:00 Temperature 98.8 F 98.5 F Pulse Rate 72 76 Respiratory Rate 16 16 Blood Pressure 130/68 113/60 Pulse Oximetry 97 94 L 96 03/23/18 11:00 Temperature 98.7 F Pulse Rate 71 Respiratory Rate 16 Blood Pressure 126/81 Pulse Oximetry 97 Intake & Output 03/22/18 03/23/18 03/23/18 18:59 06:59 18:59 Intake Total 700 / 700 193 / 193 Output Total 0 / 0 1999 / 1999 Balance 700 / 700 -1807 / -1807 Weight 127 kg Intake: IV 200 / 200 193 / 193 DOPamine 800 MG/500 ML Premix 193 / 193 800 mg In 500 ml @ 3 MCG/KG/MIN 16.737 mls/hr IV.CONT TITRATE PRN Rx#:[id number] Flexbumin 25% Inj 100 ML @ 60 200 / 200 mls/hr IV.SIG WITH DIALYSIS PRN Rx#:[id number] Oral 500 / 500 Output: Urine 0 / 0 Hemodialysis Amount 1999 Other: Date of Last Bowel Movement 03/22/18 03/22/18 03/23/18 # Bowel Movements 0 - Constitutional no acute distress - Routine HEENT Exam Head: Present: normocephalic, atraumatic Eye: Present: EOMI, PERRL Comments: sac occluded with wax - Routine Neck Exam Present: supple - Routine Respiratory Exam Present: CTA bilaterally - Routine Cardiovascular Exam Present: RRR - Routine Abdominal Exam Present: soft, normoactive bowel sounds Comments: obese Assessment and Plan - Assessment (1) Diabetes 1.5, managed as type 1 Code(s): E10.9 - Type 1 diabetes mellitus without complications Status: Acute (2) Abdominal pain Code(s): R10.9 - Unspecified abdominal pain Status: Acute Plan: add protonix from home meds 03/18 resolved at present (3) End-stage renal disease on hemodialysis Code(s): N18.6 - End stage renal disease; Z99.2 - Dependence on renal dialysis Status: Acute Plan: careful hydration and renal consult had hypotension this am resolved with fluids and sugar - Assessment and Plan stabilize fluid balance and sugars has had previous ischemic bowel issues but ct neg last pm and abd pain is upper not lower 03/18 cardiology consulted echo ordered 03/19 had syncope in dialysis yesterday stable dialysis so far today cardiac echo normal will follow fluids closely pt on dopamine drip to be able to tolerate dialysis 03/20 abd pain will image and increase protonix 03/22 gonzalo add PT 03/23 ears plugged orders written to lavage with NS/H2O2 (2) Abdominal pain Qualifiers: Abdominal location: upper abdomen, unspecified Qualified Code(s): R10.10 - Upper abdominal pain, unspecified
--- NOTE | 2018-03-23 14:13 | P.PNCC ---
Subjective Subjective Remarks/Hospital Course: 03/16: is a 57 y/o AAF with complains of abdominal pain, nausea, poor appetite, generalized malaise and weakness of 3 days duration. Patient reports she was sent from a shelter for low blood pressure. Patient reports cramping pain localized to the upper abdomen on admission which is now better and reports it as being intermittent. She reports constipation and no BM for several days prior to admission despite an aggressive bowel regimen. Patient states that she currently has nausea and decreaed appetite but no vomiting and denies any diarrhea. Patient reports prior h.o GERD and gastritis and reports pain is worse upon eating. Patient is HD dependent using a Permacath in her Right groin. 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 Patient also reports being on peritoneal dialysis in past and there is records of possible peritonitis related to PD catheter. She does not make much urine. Her last HD session was on 03/15/18. She has COPD,Morbid Obesity, CHF and sleep apnea and is on Oxygen at baseline. She has been told to wear a CPAP machine for sleep apnea at night but she does not like wearing it so she has not been using it. Patient developed worsening hypotension this morning with systolic blood pressure in the 60s for which a rapid response was called. Patient was evaluated by ID and transferred to the ICU. She received a 500 cc NS bolus on the floor. Critical care consult was requested for hypotension. I spoke with Dr. Cyrus Blas who placed her last dialysis catheter and he tells me that patient usually runs systolic blood pressure in the 80s all the time. When I evaluated the patient following her arrival to the CVICU she was laying in bed and appeared comfortable not in any acute distress. Accurate blood pressure readings have been a challenge as patient has AV fistulas in both upper extremities and nurses have been attempting obtaining blood pressure in the legs. Patient denies any chest pain or shortness of breath. She denies any chills currently. She did complain of some nausea vomiting 4 days prior to presentation. She denies any melena or rectal bleeding or diarrhea. Patient was already evaluated by ID and has been started on empiric antibiotics with suspicion for hemodialysis catheter related bacteremia/sepsis. 03/17: Resting comfortably. Denies any chest pain or shortness of breath. On dopamine 5 mics per KG per minute. 03/18: Worsening hypotension during hemodialysis. I have asked the patient in the ICU following the episode. She was on dopamine which is decreased to 10 mics per KG per minute with systolic blood pressure in the 90s. She is awake and alert. Denies any chest pain or shortness of breath currently. 03/19: Resting comfortably, dialyzed earlier. Dopamine being titrated down. 03/20: Patient remains on dopamine. Had episode of hypotension during dialysis and desaturation for which she was placed on a nonrebreather facemask. She is drowsy but easily arousable. 03/21: Remains on dopamine. Scheduled for dialysis tomorrow. Will obtain CT pulmonary angiogram tomorrow prior to dialysis to evaluate for PE as cause for hypotension 03/22: Awake and alert. On dopamine for hypotension. Awaiting CT pulmonary angiogram. 03/23: Awake and alert. Off dopamine. CT pulmonary angiogram negative for PE. Objective Vital Signs / I&O: Vital Signs 03/22/18 15:00 03/22/18 19:00 03/22/18 23:00 Temperature 98.6 F 99 F 98.9 F Pulse Rate 79 108 H 93 H Respiratory Rate 16 12 12 Blood Pressure 106/68 145/78 H 148/80 H Pulse Oximetry 93 L 92 L 94 L 03/22/18 23:04 03/23/18 03:00 03/23/18 07:00 Temperature 98.8 F 98.5 F Pulse Rate 72 76 Respiratory Rate 16 16 Blood Pressure 130/68 113/60 Pulse Oximetry 97 94 L 96 03/23/18 11:00 Temperature 98.7 F Pulse Rate 71 Respiratory Rate 16 Blood Pressure 126/81 Pulse Oximetry 97 Intake & Output 03/22/18 03/23/18 03/23/18 18:59 06:59 18:59 Intake Total 700 / 700 193 / 193 Output Total 0 / 0 1999 / 1999 Balance 700 / 700 -1807 / -1807 Weight 127 kg Intake: IV 200 / 200 193 / 193 DOPamine 800 MG/500 ML Premix 193 / 193 800 mg In 500 ml @ 3 MCG/KG/MIN 16.737 mls/hr IV.CONT TITRATE PRN Rx#:[id number] Flexbumin 25% Inj 100 ML @ 60 200 / 200 mls/hr IV.SIG WITH DIALYSIS PRN Rx#:[id number] Oral 500 / 500 Output: Urine 0 / 0 Hemodialysis Amount 1999 Other: Date of Last Bowel Movement 03/22/18 03/22/18 03/23/18 # Bowel Movements 0 Result Diagrams: 03/21/18 03:02 03/23/18 03:20 Objective Remarks: HEENT/Neuro: Pallor present, No icterus, tongue moist, MARIA ISABEL, AAO x3, nonfocal grossly, moving all 4 extremities Neck: No JVD Chest/pulmonary: CTA bilaterally Cardiovascular: S1-S2 regular no gallop or murmur GI/abdomen: Soft, nontender, bowel sounds present Extremities: Warm bilaterally, no edema. Assessment and Plan - Assessment and Plan Plan: Severe sepsis Hypotension Patient has baseline hypotension was on Midodrin. Possible right groin permacath infection related bacteremia suspected Possible ileus secondary to constipation given nausea vomiting. 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 difficile colitis, bilateral upper extremity AV fistula infections, PD catheter related infections. Diabetes mellitus ESRD on hemodialysis plan: Follow neuro status. Cardiovascular: Continue Midodrine. Off Dopamine gtt. Patient runs baseline systolic blood pressure in the 80s per nephrology. Cardiology following. Pulmonary: Supplemental O2 as needed. Bronchodilators as needed. CT pulm angiogram negative for PE. GI/liver: P.o. diet as tolerated. Renal/: Strict intake output, monitor and replete electrolytes, follow BUN/ creatinine. Hemodialysis per renal ID: Follow-up cultures. ID consult noted. Completed course of empiric antibiotics with IV daptomycin and cefepime. Breast US for rt breast mass did not reveal any abscess Endocrine: Watch for hyperglycemia, SSI for glycemic control if needed. Heme: Follow CBC and coags Prophylaxis: Continues heparin for DVT prophylaxis.
[2018-03-24 04:44] LABS: Alanine Aminotransferase 9 U/L (10-53); Albumin 3.1 g/dL (3.4-5.0); Alkaline Phosphatase 54 U/L (45-117); Anion Gap 9 meq/L (5-15); Aspartate Aminotransferase 8 U/L (15-37); Blood Urea Nitrogen 23 mg/dL (7-18); Calcium 10.1 mg/dL (8.5-10.1); Carbon Dioxide 31.5 meq/L (21.0-32.0); Chloride 99 meq/L (98-107); Glomerular Filtration Rate 9 mL/min (>89); Glucose,Random 82 mg/dL (74-106); Potassium 4.3 meq/L (3.5-5.1); Sodium 139 meq/L (136-145); Total Protein 7.3 g/dL (6.4-8.2)
[2018-03-24] MEDS: Insulin NovoLOG Aspart Correctional Sugar Inj SQ SCH ×4 (08:50→22:06)
[2018-03-24] MEDS: Tobramycin 0.3% Opth Drops 5 ML Bottle EACH EYE SCH ×4 (08:54→20:46)
[2018-03-24] MEDS: Calcium Acetate 667 MG Capsule PO SCH ×3 (08:54→18:34)
--- NOTE | 2018-03-24 10:16 | P.PNNP ---
Subjective Interval history: Patient is doing well. No shortness of breath. Blood pressure has improved. <Tami Owens - Last Filed: 03/24/18 10:14> Physical Exam Vital signs: Vital Signs 03/23/18 11:00 03/23/18 15:00 03/23/18 19:00 Temperature 98.7 F 98.5 F 98.4 F Pulse Rate 71 73 87 Respiratory Rate 16 18 20 Blood Pressure 126/81 145/80 H 111/60 Pulse Oximetry 97 99 97 03/23/18 22:20 03/23/18 23:00 03/24/18 03:00 Temperature 98.6 F 99.4 F Pulse Rate 84 84 Respiratory Rate 20 20 Blood Pressure 130/60 123/54 L Pulse Oximetry 97 97 97 03/24/18 07:00 03/24/18 08:25 Temperature 98.4 F Pulse Rate 85 Respiratory Rate 18 Blood Pressure 122/81 Pulse Oximetry 98 95 Intake & Output 03/23/18 03/24/18 03/24/18 18:59 06:59 18:59 Intake Total 600 / 600 240 / 240 Output Total 0 / 0 0 / 0 Balance 600 / 600 240 / 240 Weight 126.3 kg Intake: Oral 600 / 600 240 / 240 Output: Urine 0 / 0 0 / 0 Other: Date of Last Bowel Movement 03/23/18 03/23/18 # Bowel Movements 1 - Constitutional no acute distress, morbidly obese - Routine HEENT Exam Head: Present: normocephalic ENT: Present: mucous membranes moist - Routine Neck Exam Present: supple. Absent: JVD - Routine Respiratory Exam Present: decreased breath sounds. Absent: rales, rhonchi, wheezes - Routine Cardiovascular Exam Present: RRR - Routine Abdominal Exam Present: soft, normoactive bowel sounds Comments: large - Routine Extremities Exam Absent: edema - Routine Skin Exam Present: dry, warm - Routine Neurological Exam Present: alert, oriented X3 - Routine Psychiatric Exam Present: cooperative <Tami Owens - Last Filed: 03/24/18 10:14> Vital signs: Vital Signs 03/24/18 11:00 03/24/18 15:00 03/24/18 19:00 Temperature 98.9 F 99.1 F Pulse Rate 71 74 90 Respiratory Rate 18 18 Blood Pressure 134/79 157/96 H Pulse Oximetry 98 95 03/24/18 20:00 03/24/18 23:00 03/25/18 00:55 Temperature 98.7 F 98.6 F Pulse Rate 80 72 90 Respiratory Rate 16 16 Blood Pressure 120/64 107/68 Pulse Oximetry 97 92 L 03/25/18 01:11 03/25/18 03:00 03/25/18 04:00 Temperature 98.7 F Pulse Rate 92 H 68 Respiratory Rate 16 Blood Pressure 140/76 Pulse Oximetry 92 L 96 03/25/18 04:17 03/25/18 07:00 03/25/18 09:41 Temperature 98 F Pulse Rate 75 Respiratory Rate 16 16 Blood Pressure 133/70 Pulse Oximetry 96 95 98 Intake & Output 03/24/18 03/25/18 03/25/18 18:59 06:59 18:59 Intake Total 770 / 770 320 / 320 Output Total 0 / 0 0 / 0 Balance 770 / 770 320 / 320 Weight 130.3 kg Intake: Oral 770 / 770 320 / 320 Output: Urine 0 / 0 0 / 0 Other: Date of Last Bowel Movement 03/23/18 03/23/18 03/23/18 # Bowel Movements 0 <Candida Winston Q - Last Filed: 03/25/18 10:34> Assessment and Plan - Assessment (1) ESRD (end stage renal disease) on dialysis Code(s): N18.6 - End stage renal disease; Z99.2 - Dependence on renal dialysis Status: Acute Plan: 1. End-stage renal disease on hemodialysis M/W/F HD, Volume status, electrolytes stable. Of note, the patient has right femoral dialysis catheter. This is one of the last possible access sites for the patient. There are no signs of any overt catheter infection at this point and it appears much of her symptoms are gastrointestinal in nature. Continue to monitor at this time. Now BP is improving. Continue Midodrine. Avoid IVF administration Hemodialysis tomorrow 2. Abdominal pain. Ongoing acid reflux symptoms, however feeling better and tolerating diet. Continue to monitor. 3. Chronic obstructive pulmonary disease. The patient's oxygen status is stable. She has been on home oxygen. Continue to monitor. 4. Hypotension. The patient has had chronic hypotension and has been on midodrine. She likely has autonomic dysfunction and has been on dialysis for several years with chronic hypotension. Baseline SBP 80s per patient. Continue midodrine 5. Questionable sepsis. Seen with ID. Antibiotics discontinued. Afebrile (2) Abdominal pain Code(s): R10.9 - Unspecified abdominal pain Status: Acute Qualifiers: Abdominal location: upper abdomen, unspecified Qualified Code(s): R10.10 - Upper abdominal pain, unspecified (3) Diabetes Code(s): E11.9 - Type 2 diabetes mellitus without complications Status: Acute <Tami Owens - Last Filed: 03/24/18 10:14> - Assessment (1) ESRD (end stage renal disease) on dialysis Code(s): N18.6 - End stage renal disease; Z99.2 - Dependence on renal dialysis Status: Acute (2) Abdominal pain Code(s): R10.9 - Unspecified abdominal pain Status: Acute Qualifiers: Abdominal location: upper abdomen, unspecified Qualified Code(s): R10.10 - Upper abdominal pain, unspecified (3) Diabetes Code(s): E11.9 - Type 2 diabetes mellitus without complications Status: Acute - Attending Attestation Patient seen and examined, agree with above. BP is better, off Dopamine. HD will be tomorrow. Dr. Villagran will follow from tomorrow. <Dashawn Winston - Last Filed: 03/25/18 10:34>
--- NOTE | 2018-03-24 12:45 | P.PNFP ---
Subjective Interval history: feeling well right ear now clear left still plugged lavage continues has been off dopamine but dialysis looms tomorrow Results - Labs Result diagrams: 03/21/18 03:02 03/24/18 03:40 Abnormal lab results 03/23/18 03/23/18 03/24/18 Range/Units 16:54 21:04 03:40 BUN 23 H (7-18) mg/dL Creatinine 6.11 H (0.50-1.00) mg/dL Estimated GFR 9 L (>89) mL/min POC Glucose 139 H 169 H (68-110) mg/dl AST 8 L (15-37) U/L ALT 9 L (10-53) U/L Albumin 3.1 L (3.4-5.0) g/dL 03/24/18 Range/Units 11:59 BUN (7-18) mg/dL Creatinine (0.50-1.00) mg/dL Estimated GFR (>89) mL/min POC Glucose 145 H (68-110) mg/dl AST (15-37) U/L ALT (10-53) U/L Albumin (3.4-5.0) g/dL BMP 03/24/18 03:40 Sodium 139 Potassium 4.3 Chloride 99 Carbon Dioxide 31.5 BUN 23 H Creatinine 6.11 H Calcium 10.1 D Liver Function 03/24/18 Range/Units 03:40 Total Bilirubin 0.5 (0.2-1.0) mg/dL AST 8 L (15-37) U/L ALT 9 L (10-53) U/L Alkaline Phosphatase 54 (45-117) U/L Albumin 3.1 L (3.4-5.0) g/dL Physical Exam Vital signs: Vital Signs 03/23/18 15:00 03/23/18 19:00 03/23/18 22:20 Temperature 98.5 F 98.4 F Pulse Rate 73 87 Respiratory Rate 18 20 Blood Pressure 145/80 H 111/60 Pulse Oximetry 99 97 97 03/23/18 23:00 03/24/18 03:00 03/24/18 07:00 Temperature 98.6 F 99.4 F 98.4 F Pulse Rate 84 84 85 Respiratory Rate 20 20 18 Blood Pressure 130/60 123/54 L 122/81 Pulse Oximetry 97 97 98 03/24/18 08:25 03/24/18 11:00 Temperature 98.9 F Pulse Rate 71 Respiratory Rate 18 Blood Pressure 134/79 Pulse Oximetry 95 98 Intake & Output 03/23/18 03/24/18 03/24/18 18:59 06:59 18:59 Intake Total 600 / 600 240 / 240 Output Total 0 / 0 0 / 0 Balance 600 / 600 240 / 240 Weight 126.3 kg Intake: Oral 600 / 600 240 / 240 Output: Urine 0 / 0 0 / 0 Other: Date of Last Bowel Movement 03/23/18 03/23/18 # Bowel Movements 1 - Constitutional no acute distress - Routine HEENT Exam Head: Present: normocephalic, atraumatic Eye: Present: EOMI, PERRL Comments: r ear now open - Routine Neck Exam Present: supple - Routine Respiratory Exam Present: decreased breath sounds, CTA bilaterally - Routine Cardiovascular Exam Present: RRR - Routine Abdominal Exam Present: soft, normoactive bowel sounds - Routine Neurological Exam Present: alert, oriented X3 - Routine Psychiatric Exam Present: normal affect Assessment and Plan - Assessment (1) Diabetes 1.5, managed as type 1 Code(s): E10.9 - Type 1 diabetes mellitus without complications Status: Acute (2) Abdominal pain Code(s): R10.9 - Unspecified abdominal pain Status: Acute Plan: add protonix from home meds 03/18 resolved at present (3) End-stage renal disease on hemodialysis Code(s): N18.6 - End stage renal disease; Z99.2 - Dependence on renal dialysis Status: Acute Plan: careful hydration and renal consult had hypotension this am resolved with fluids and sugar 03/24 continue ear lavage await dialysis in am - Assessment and Plan stabilize fluid balance and sugars has had previous ischemic bowel issues but ct neg last pm and abd pain is upper not lower 03/18 cardiology consulted echo ordered 03/19 had syncope in dialysis yesterday stable dialysis so far today cardiac echo normal will follow fluids closely pt on dopamine drip to be able to tolerate dialysis 03/20 abd pain will image and increase protonix 03/22 gonzalo add PT 03/23 ears plugged orders written to lavage with NS/H2O2 (2) Abdominal pain Qualifiers: Abdominal location: upper abdomen, unspecified Qualified Code(s): R10.10 - Upper abdominal pain, unspecified
--- NOTE | 2018-03-24 17:04 | P.PNCC ---
Subjective Subjective Remarks/Hospital Course: 03/16: is a 57 y/o AAF with complains of abdominal pain, nausea, poor appetite, generalized malaise and weakness of 3 days duration. Patient reports she was [facility] a [facility]. Patient reports cramping pain localized to the upper abdomen on admission which is now better and reports it as being intermittent. She reports constipation and no BM for several days prior to admission despite an aggressive bowel regimen. Patient states that she currently has nausea and decreaed appetite but no vomiting and denies any diarrhea. Patient reports prior h.o GERD and gastritis and reports pain is worse upon eating. Patient is HD dependent using a Permacath in her Right groin. 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 Patient also reports being on peritoneal dialysis in past and there is records of possible peritonitis related to PD catheter. She does not make much urine. Her last HD session was on 03/15/18. She has COPD,Morbid Obesity, CHF and sleep apnea and is on Oxygen at baseline. She has been told to wear a CPAP machine for sleep apnea at night but she does not like wearing it so she has not been using it. Patient developed worsening hypotension this morning with systolic blood pressure in the 60s for which a rapid response was called. Patient was evaluated by ID and transferred to the ICU. She received a 500 cc NS bolus on the floor. Critical care consult was requested for hypotension. I spoke with Dr. Cyrus Blas who placed her last dialysis catheter and he tells me that patient usually runs systolic blood pressure in the 80s all the time. When I evaluated the patient following her arrival to the CVICU she was laying in bed and appeared comfortable not in any acute distress. Accurate blood pressure readings have been a challenge as patient has AV fistulas in both upper extremities and nurses have been attempting obtaining blood pressure in the legs. Patient denies any chest pain or shortness of breath. She denies any chills currently. She did complain of some nausea vomiting 4 days prior to presentation. She denies any melena or rectal bleeding or diarrhea. Patient was already evaluated by ID and has been started on empiric antibiotics with suspicion for hemodialysis catheter related bacteremia/sepsis. 03/17: Resting comfortably. Denies any chest pain or shortness of breath. On dopamine 5 mics per KG per minute. 03/18: Worsening hypotension during hemodialysis. I have asked the patient in the ICU following the episode. She was on dopamine which is decreased to 10 mics per KG per minute with systolic blood pressure in the 90s. She is awake and alert. Denies any chest pain or shortness of breath currently. 03/19: Resting comfortably, dialyzed earlier. Dopamine being titrated down. 03/20: Patient remains on dopamine. Had episode of hypotension during dialysis and desaturation for which she was placed on a nonrebreather facemask. She is drowsy but easily arousable. 03/21: Remains on dopamine. Scheduled for dialysis tomorrow. Will obtain CT pulmonary angiogram tomorrow prior to dialysis to evaluate for PE as cause for hypotension 03/22: Awake and alert. On dopamine for hypotension. Awaiting CT pulmonary angiogram. 03/23: Awake and alert. Off dopamine. CT pulmonary angiogram negative for PE. 03/24: Remains off dopamine. Resting in bed comfortably not in any acute distress. Objective Vital Signs / I&O: Vital Signs 03/23/18 19:00 03/23/18 22:20 03/23/18 23:00 Temperature 98.4 F 98.6 F Pulse Rate 87 84 Respiratory Rate 20 20 Blood Pressure 111/60 130/60 Pulse Oximetry 97 97 97 03/24/18 03:00 03/24/18 07:00 03/24/18 08:25 Temperature 99.4 F 98.4 F Pulse Rate 84 85 Respiratory Rate 20 18 Blood Pressure 123/54 L 122/81 Pulse Oximetry 97 98 95 03/24/18 11:00 03/24/18 15:00 Temperature 98.9 F 99.1 F Pulse Rate 71 74 Respiratory Rate 18 18 Blood Pressure 134/79 157/96 H Pulse Oximetry 98 95 Intake & Output 03/23/18 03/24/18 03/24/18 18:59 06:59 18:59 Intake Total 600 / 600 240 / 240 Output Total 0 / 0 0 / 0 Balance 600 / 600 240 / 240 Weight 126.3 kg Intake: Oral 600 / 600 240 / 240 Output: Urine 0 / 0 0 / 0 Other: Date of Last Bowel Movement 03/23/18 03/23/18 # Bowel Movements 1 Result Diagrams: 03/21/18 03:02 03/24/18 03:40 Objective Remarks: HEENT/Neuro: Pallor present, No icterus, tongue moist, MARIA ISABEL, AAO x3, nonfocal grossly, moving all 4 extremities Neck: No JVD Chest/pulmonary: CTA bilaterally Cardiovascular: S1-S2 regular no gallop or murmur GI/abdomen: Soft, nontender, bowel sounds present Extremities: Warm bilaterally, no edema. Assessment and Plan - Assessment and Plan Plan: Severe sepsis Hypotension Patient has baseline hypotension was on Midodrin. Possible right groin permacath infection related bacteremia suspected Possible ileus secondary to constipation given nausea vomiting. 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 difficile colitis, bilateral upper extremity AV fistula infections, PD catheter related infections. Diabetes mellitus ESRD on hemodialysis plan: Follow neuro status. Cardiovascular: Continue Midodrine. Off Dopamine gtt. Patient runs baseline systolic blood pressure in the 80s per nephrology. Cardiology following. Pulmonary: Supplemental O2 as needed. Bronchodilators as needed. CT pulm angiogram negative for PE. GI/liver: P.o. diet as tolerated. Renal/: Strict intake output, monitor and replete electrolytes, follow BUN/ creatinine. Hemodialysis per renal ID: Follow-up cultures. ID consult noted. Completed course of empiric antibiotics with IV daptomycin and cefepime. Breast US for rt breast mass did not reveal any abscess Endocrine: Watch for hyperglycemia, SSI for glycemic control if needed. Heme: Follow CBC and coags Prophylaxis: Continues heparin for DVT prophylaxis.
[2018-03-25] MEDS: Calcium Acetate 667 MG Capsule PO SCH ×3 (09:32→18:28)
[2018-03-25] MEDS: Tobramycin 0.3% Opth Drops 5 ML Bottle EACH EYE SCH ×4 (09:33→21:07)
[2018-03-25] MEDS: Insulin NovoLOG Aspart Correctional Sugar Inj SQ SCH ×4 (09:33→21:07)
--- NOTE | 2018-03-25 16:46 | P.PNCC ---
Subjective Subjective Remarks/Hospital Course: 03/16: is a 57 y/o AAF with complains of abdominal pain, nausea, poor appetite, generalized malaise and weakness of 3 days duration. Patient reports she was sent from a [facility] for low blood pressure. Patient reports cramping pain localized to the upper abdomen on admission which is now better and reports it as being intermittent. She reports constipation and no BM for several days prior to admission despite an aggressive bowel regimen. Patient states that she currently has nausea and decreaed appetite but no vomiting and denies any diarrhea. Patient reports prior h.o GERD and gastritis and reports pain is worse upon eating. Patient is HD dependent using a Permacath in her Right groin. 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 Patient also reports being on peritoneal dialysis in past and there is records of possible peritonitis related to PD catheter. She does not make much urine. Her last HD session was on 03/15/18. She has COPD,Morbid Obesity, CHF and sleep apnea and is on Oxygen at baseline. She has been told to wear a CPAP machine for sleep apnea at night but she does not like wearing it so she has not been using it. Patient developed worsening hypotension this morning with systolic blood pressure in the 60s for which a rapid response was called. Patient was evaluated by ID and transferred to the ICU. She received a 500 cc NS bolus on the floor. Critical care consult was requested for hypotension. I spoke with Dr. Cyrus Blas who placed her last dialysis catheter and he tells me that patient usually runs systolic blood pressure in the 80s all the time. When I evaluated the patient following her arrival to the CVICU she was laying in bed and appeared comfortable not in any acute distress. Accurate blood pressure readings have been a challenge as patient has AV fistulas in both upper extremities and nurses have been attempting obtaining blood pressure in the legs. Patient denies any chest pain or shortness of breath. She denies any chills currently. She did complain of some nausea vomiting 4 days prior to presentation. She denies any melena or rectal bleeding or diarrhea. Patient was already evaluated by ID and has been started on empiric antibiotics with suspicion for hemodialysis catheter related bacteremia/sepsis. 03/17: Resting comfortably. Denies any chest pain or shortness of breath. On dopamine 5 mics per KG per minute. 03/18: Worsening hypotension during hemodialysis. I have asked the patient in the ICU following the episode. She was on dopamine which is decreased to 10 mics per KG per minute with systolic blood pressure in the 90s. She is awake and alert. Denies any chest pain or shortness of breath currently. 03/19: Resting comfortably, dialyzed earlier. Dopamine being titrated down. 03/20: Patient remains on dopamine. Had episode of hypotension during dialysis and desaturation for which she was placed on a nonrebreather facemask. She is drowsy but easily arousable. 03/21: Remains on dopamine. Scheduled for dialysis tomorrow. Will obtain CT pulmonary angiogram tomorrow prior to dialysis to evaluate for PE as cause for hypotension 03/22: Awake and alert. On dopamine for hypotension. Awaiting CT pulmonary angiogram. 03/23: Awake and alert. Off dopamine. CT pulmonary angiogram negative for PE. 03/24, 03/25: Remains off dopamine. Resting in bed comfortably not in any acute distress. Objective Vital Signs / I&O: Vital Signs 03/24/18 19:00 03/24/18 20:00 03/24/18 23:00 Temperature 98.7 F Pulse Rate 90 80 72 Respiratory Rate 16 Blood Pressure 120/64 Pulse Oximetry 97 03/25/18 00:55 03/25/18 01:11 03/25/18 03:00 Temperature 98.6 F Pulse Rate 90 92 H Respiratory Rate 16 Blood Pressure 107/68 Pulse Oximetry 92 L 92 L 03/25/18 04:00 03/25/18 04:17 03/25/18 07:00 Temperature 98.7 F 98 F Pulse Rate 68 75 Respiratory Rate 16 16 16 Blood Pressure 140/76 133/70 Pulse Oximetry 96 96 95 03/25/18 09:41 03/25/18 11:00 03/25/18 15:00 Temperature 98.4 F 98.4 F Pulse Rate 78 68 Respiratory Rate 16 16 Blood Pressure 140/74 154/87 H Pulse Oximetry 98 95 97 Intake & Output 03/24/18 03/25/18 03/25/18 18:59 06:59 18:59 Intake Total 770 / 770 320 / 320 Output Total 0 / 0 0 / 0 Balance 770 / 770 320 / 320 Weight 130.3 kg Intake: Oral 770 / 770 320 / 320 Output: Urine 0 / 0 0 / 0 Other: Date of Last Bowel Movement 03/23/18 03/23/18 03/23/18 # Bowel Movements 0 Result Diagrams: 03/21/18 03:02 03/24/18 03:40 Objective Remarks: HEENT/Neuro: Pallor present, No icterus, tongue moist, MARIA ISABEL, AAO x3, nonfocal grossly, moving all 4 extremities Neck: No JVD Chest/pulmonary: CTA bilaterally Cardiovascular: S1-S2 regular no gallop or murmur GI/abdomen: Soft, nontender, bowel sounds present Extremities: Warm bilaterally, no edema. Assessment and Plan - Assessment and Plan Plan: sepsis Hypotension Patient has baseline hypotension was on Midodrin. Possible right groin permacath infection related bacteremia suspected Possible ileus secondary to constipation given nausea vomiting. 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 difficile colitis, bilateral upper extremity AV fistula infections, PD catheter related infections. Diabetes mellitus ESRD on hemodialysis plan: Follow neuro status. Cardiovascular: Continue Midodrine. Off Dopamine gtt. Patient runs baseline systolic blood pressure in the 80s per nephrology. Cardiology following. Pulmonary: Supplemental O2 as needed. Bronchodilators as needed. CT pulm angiogram negative for PE. GI/liver: P.o. diet as tolerated. Renal/: Strict intake output, monitor and replete electrolytes, follow BUN/ creatinine. Hemodialysis per renal ID: Follow-up cultures. ID consult noted. Completed course of empiric antibiotics with IV daptomycin and cefepime. Breast US for rt breast mass did not reveal any abscess Endocrine: Watch for hyperglycemia, SSI for glycemic control if needed. Heme: Follow CBC and coags Prophylaxis: Continues heparin for DVT prophylaxis. Critical care signing off, please reconsult if needed.
[2018-03-25] MEDS: Heparin 10,000 UNITS/10 ML Vial (for IV use) OTHER PRN (17:06)
--- NOTE | 2018-03-25 19:13 | P.PNNP ---
Subjective Interval history: Patient sen during HD Physical Exam Vital signs: Vital Signs 03/24/18 20:00 03/24/18 23:00 03/25/18 00:55 Temperature 98.7 F 98.6 F Pulse Rate 80 72 90 Respiratory Rate 16 16 Blood Pressure 120/64 107/68 Pulse Oximetry 97 92 L 03/25/18 01:11 03/25/18 03:00 03/25/18 04:00 Temperature 98.7 F Pulse Rate 92 H 68 Respiratory Rate 16 Blood Pressure 140/76 Pulse Oximetry 92 L 96 03/25/18 04:17 03/25/18 07:00 03/25/18 09:41 Temperature 98 F Pulse Rate 75 Respiratory Rate 16 16 Blood Pressure 133/70 Pulse Oximetry 96 95 98 03/25/18 11:00 03/25/18 15:00 Temperature 98.4 F 98.4 F Pulse Rate 78 68 Respiratory Rate 16 16 Blood Pressure 140/74 154/87 H Pulse Oximetry 95 97 Intake & Output 03/25/18 03/25/18 03/26/18 06:59 18:59 06:59 Intake Total 320 / 320 720 / 720 Output Total 0 / 0 0 / 0 Balance 320 / 320 720 / 720 Weight 130.3 kg Intake: Oral 320 / 320 720 / 720 Output: Urine 0 / 0 0 / 0 Other: Date of Last Bowel Movement 03/23/18 03/23/18 # Bowel Movements 0 - Constitutional no acute distress - Routine HEENT Exam Head: Present: normocephalic - Routine Neck Exam Present: supple - Routine Respiratory Exam Present: CTA bilaterally - Routine Cardiovascular Exam Present: RRR - Routine Abdominal Exam Present: soft, distended - Routine Extremities Exam Present: edema Assessment and Plan - Assessment (1) End-stage renal disease on hemodialysis Code(s): N18.6 - End stage renal disease; Z99.2 - Dependence on renal dialysis Status: Acute - Plan seen during HD UF minimal BP Low doing poorly unable to tolerate PO foods Appetite low prognosis guarded HD MWF as tolerates
--- NOTE | 2018-03-25 21:41 | P.PNFP ---
Subjective Interval history: pthaving nausea with dialysis Results - Labs Result diagrams: 03/21/18 03:02 03/24/18 03:40 Abnormal lab results 03/24/18 03/25/18 03/25/18 Range/Units 22:04 17:24 21:05 POC Glucose 180 H 123 H 154 H (68-110) mg/dl Physical Exam Vital signs: Vital Signs 03/24/18 23:00 03/25/18 00:55 03/25/18 01:11 Temperature 98.6 F Pulse Rate 72 90 Respiratory Rate 16 Blood Pressure 107/68 Pulse Oximetry 92 L 92 L 03/25/18 03:00 03/25/18 04:00 03/25/18 04:17 Temperature 98.7 F Pulse Rate 92 H 68 Respiratory Rate 16 16 Blood Pressure 140/76 Pulse Oximetry 96 96 03/25/18 07:00 03/25/18 09:41 03/25/18 11:00 Temperature 98 F 98.4 F Pulse Rate 75 78 Respiratory Rate 16 16 Blood Pressure 133/70 140/74 Pulse Oximetry 95 98 95 03/25/18 15:00 03/25/18 19:00 03/25/18 19:36 Temperature 98.4 F 97.9 F Pulse Rate 68 87 83 Respiratory Rate 16 18 Blood Pressure 154/87 H 111/68 Pulse Oximetry 97 99 03/25/18 21:22 Temperature Pulse Rate Respiratory Rate Blood Pressure Pulse Oximetry 98 Intake & Output 03/25/18 03/25/18 03/26/18 06:59 18:59 06:59 Intake Total 320 / 320 720 / 720 Output Total 0 / 0 0 / 0 Balance 320 / 320 720 / 720 Weight 130.3 kg Intake: Oral 320 / 320 720 / 720 Output: Urine 0 / 0 0 / 0 Other: Date of Last Bowel Movement 03/23/18 03/23/18 03/23/18 # Bowel Movements 0 - Constitutional mild distress - Routine HEENT Exam Head: Present: normocephalic, atraumatic Eye: Present: EOMI, PERRL ENT: Present: mucous membranes moist - Routine Neck Exam Present: supple - Routine Cardiovascular Exam Present: RRR Assessment and Plan - Assessment (1) Diabetes 1.5, managed as type 1 Code(s): E10.9 - Type 1 diabetes mellitus without complications Status: Acute (2) Abdominal pain Code(s): R10.9 - Unspecified abdominal pain Status: Acute Plan: add protonix from home meds 03/18 resolved at present (3) End-stage renal disease on hemodialysis Code(s): N18.6 - End stage renal disease; Z99.2 - Dependence on renal dialysis Status: Acute Plan: careful hydration and renal consult had hypotension this am resolved with fluids and sugar 03/24 continue ear lavage await dialysis in am - Assessment and Plan stabilize fluid balance and sugars has had previous ischemic bowel issues but ct neg last pm and abd pain is upper not lower 03/18 cardiology consulted echo ordered 03/19 had syncope in dialysis yesterday stable dialysis so far today cardiac echo normal will follow fluids closely pt on dopamine drip to be able to tolerate dialysis 03/20 abd pain will image and increase protonix 03/22 gonzalo add PT 03/23 ears plugged orders written to lavage with NS/H2O2 03/24 8 ears improved will have dialysis tomorrow 03/25 nauseaa with dialysis preceeds hypotension recomend zofran prior to the proceedure (2) Abdominal pain Qualifiers: Abdominal location: upper abdomen, unspecified Qualified Code(s): R10.10 - Upper abdominal pain, unspecified
[2018-03-26] MEDS: Insulin NovoLOG Aspart Correctional Sugar Inj SQ SCH ×4 (07:55→21:42)
[2018-03-26] MEDS: Tobramycin 0.3% Opth Drops 5 ML Bottle EACH EYE SCH ×4 (08:30→21:43)
[2018-03-26] MEDS: Calcium Acetate 667 MG Capsule PO SCH ×3 (08:31→18:14)
--- NOTE | 2018-03-26 13:43 | P.PNCA ---
<Shadeed,December - Last Filed: 03/26/18 13:38> Subjective Interval history: Pt lying in bed. Had episode of hypotension, SOB and nausea yesterday during dialysis. Today BP and HR are stable. Pt is tearful and questioning if she wants to continue with dialysis. She reports feeling depressed. Will consult palliative care to discuss options with patient. She is currently on wellbutrin. Physical Exam Vital signs: Vital Signs 03/25/18 15:00 03/25/18 19:00 03/25/18 19:36 Temperature 98.4 F 97.9 F Pulse Rate 68 87 83 Respiratory Rate 16 18 Blood Pressure 154/87 H 111/68 Pulse Oximetry 97 99 03/25/18 21:22 03/25/18 23:00 03/26/18 03:00 Temperature 98.2 F Pulse Rate 97 H 87 Respiratory Rate 18 16 Blood Pressure 93/47 L 136/73 Pulse Oximetry 98 95 96 03/26/18 07:00 03/26/18 09:38 03/26/18 10:46 Temperature 98.1 F Pulse Rate 79 Respiratory Rate 18 Blood Pressure 156/80 H Pulse Oximetry 94 L 95 95 03/26/18 10:48 03/26/18 10:55 03/26/18 11:00 Temperature 98.2 F Pulse Rate 70 77 Respiratory Rate 18 Blood Pressure 135/75 Pulse Oximetry 95 95 Intake & Output 03/25/18 03/26/18 03/26/18 18:59 06:59 18:59 Intake Total 720 / 720 Output Total 0 / 0 Balance 720 / 720 Weight 130.2 kg Intake: Oral 720 / 720 Output: Urine 0 / 0 Other: Date of Last Bowel Movement 03/23/18 03/25/18 03/26/18 # Bowel Movements 0 1 - Constitutional no acute distress - Routine HEENT Exam Head: Present: normocephalic, atraumatic Eye: Present: PERRL ENT: Present: mucous membranes moist - Routine Neck Exam Present: supple - Routine Respiratory Exam Present: CTA bilaterally - Routine Cardiovascular Exam Present: RRR - Routine Abdominal Exam Present: soft Comments: obese - Routine Extremities Exam Comments: no edema - Routine Skin Exam Present: intact - Routine Neurological Exam Present: alert, oriented X3 - Detailed Neurological Exam: Coma Scale Eye Opening: Spontaneous Verbal Response: Oriented Motor Response: Obey commands [place] Coma Scale Total: 15 - Routine Psychiatric Exam Present: cooperative, depressed Assessment and Plan - Plan Hypotension SOB -BP stable. Denies any further syncopal episodes. Did have episode where she felt nauseous and BP dropped associated with SOB. Currently off dopamine drip, may re-initiate PRN. Continue current treatment plan with midodrine for BP support and consider switching patient to [facility] for out patient dialysis. -CTA chest ruled out PE -Tearful, questioning further treatment. Palliative care consult placed. The patient was seen and evaluated by Dr. Francis who participated in care, management and decision making. Discussed Condition With: Nurse <Pinky Francis - Last Filed: 03/26/18 14:54> Physical Exam Vital signs: Vital Signs 03/25/18 15:00 03/25/18 19:00 03/25/18 19:36 Temperature 98.4 F 97.9 F Pulse Rate 68 87 83 Respiratory Rate 16 18 Blood Pressure 154/87 H 111/68 Pulse Oximetry 97 99 03/25/18 21:22 03/25/18 23:00 03/26/18 03:00 Temperature 98.2 F Pulse Rate 97 H 87 Respiratory Rate 18 16 Blood Pressure 93/47 L 136/73 Pulse Oximetry 98 95 96 03/26/18 07:00 03/26/18 09:38 03/26/18 10:46 Temperature 98.1 F Pulse Rate 79 Respiratory Rate 18 Blood Pressure 156/80 H Pulse Oximetry 94 L 95 95 03/26/18 10:48 03/26/18 10:55 03/26/18 11:00 Temperature 98.2 F Pulse Rate 70 77 Respiratory Rate 18 Blood Pressure 135/75 Pulse Oximetry 95 95 Intake & Output 03/25/18 03/26/18 03/26/18 18:59 06:59 18:59 Intake Total 720 / 720 Output Total 0 / 0 Balance 720 / 720 Weight 130.2 kg Intake: Oral 720 / 720 Output: Urine 0 / 0 Other: Date of Last Bowel Movement 03/23/18 03/25/18 03/26/18 # Bowel Movements 0 1 Assessment and Plan - Assessment (1) COPD (chronic obstructive pulmonary disease) Code(s): J44.9 - Chronic obstructive pulmonary disease, unspecified Status: Acute (2) End-stage renal disease on hemodialysis Code(s): N18.6 - End stage renal disease; Z99.2 - Dependence on renal dialysis Status: Acute (3) HBP (high blood pressure) Code(s): I10 - Essential (primary) hypertension Status: Acute (4) Diabetes Code(s): E11.9 - Type 2 diabetes mellitus without complications Status: Acute - Plan The exam, history, and the medical decision-making described in the above note were completed with the assistance of the mid-level provider. I reviewed and agree with the findings presented. Overall unhappy with dialysis will see palliative care, off dopamine
--- NOTE | 2018-03-26 15:08 | P.PNNP ---
Subjective Interval history: Patient feels depressed has dropped her blood pressure frequently on dialysis, nurse reports she was crying all day Physical Exam Vital signs: Vital Signs 03/25/18 19:00 03/25/18 19:36 03/25/18 21:22 Temperature 97.9 F Pulse Rate 87 83 Respiratory Rate 18 Blood Pressure 111/68 Pulse Oximetry 99 98 03/25/18 23:00 03/26/18 03:00 03/26/18 07:00 Temperature 98.2 F 98.1 F Pulse Rate 97 H 87 79 Respiratory Rate 18 16 18 Blood Pressure 93/47 L 136/73 156/80 H Pulse Oximetry 95 96 94 L 03/26/18 09:38 03/26/18 10:46 03/26/18 10:48 Temperature Pulse Rate Respiratory Rate Blood Pressure Pulse Oximetry 95 95 95 03/26/18 10:55 03/26/18 11:00 Temperature 98.2 F Pulse Rate 70 77 Respiratory Rate 18 Blood Pressure 135/75 Pulse Oximetry 95 Intake & Output 03/25/18 03/26/18 03/26/18 18:59 06:59 18:59 Intake Total 720 / 720 Output Total 0 / 0 Balance 720 / 720 Weight 130.2 kg Intake: Oral 720 / 720 Output: Urine 0 / 0 Other: Date of Last Bowel Movement 03/23/18 03/25/18 03/26/18 # Bowel Movements 0 1 - Constitutional no acute distress - Routine HEENT Exam Head: Present: normocephalic Eye: Present: EOMI, PERRL - Routine Neck Exam Present: supple - Routine Respiratory Exam Present: CTA bilaterally - Routine Cardiovascular Exam Present: RRR - Routine Abdominal Exam Present: soft, normoactive bowel sounds - Routine Extremities Exam Present: edema Assessment and Plan - Assessment (1) End-stage renal disease on hemodialysis Code(s): N18.6 - End stage renal disease; Z99.2 - Dependence on renal dialysis Status: Acute - Plan Patient drops her blood pressure during dialysis and discuss her options unfortunately she did not do well with the peritoneal dialysis I told her dialysis nurse to lower the temperature of the fluids to 36 to see if this helps Continue with midodrine increase the dose to 20 mg 3 times daily HD MWF as tolerates
--- NOTE | 2018-03-26 17:10 | P.CONPAL ---
Consult Service: Palliative Care Requesting Physician: Susan Walton Reason for Consult: a. To assist with evaluation and management of symptoms including:anxiety b. To assist medical decision maker(s) with: better understanding of current medical conditions; weighing benefits/burdens of medical treatment options; making medical treatment decisions. Primary Care Provider: UNKNOWN History of Present Illness History of Present Illness: This 57-year-old female was admitted 03/15 for abdominal pain, nausea and poor appetite as well as generalized malaise and weakness. She reports onset 3 days prior. She reports cramping localized pain upper abdomen. Denies any radiation. She had nausea but no vomiting. No diarrhea. Pain worsens with eating. She has known history of end-stage renal disease on hemodialysis. Anuric. * Leukocytosis WBC 25.8. She was noted to have recent admission in December 2017 for C. difficile colitis and severe sepsis. CT abdomen pelvis indicate stable CT scan compared to prior study no new or significant changes. CXR with no acute process. Abdomen x-ray unremarkable. This admission she started on IV fluids, Zofran, Zosyn IV. * 03/16 patient was some hypotension 60s over 80s though repeats were improved. She was transferred to ICU for possible vasopressors. Blood pressure is lower than her baseline though apparently she does take Midrin. ID was consulted; cochran cultures ordered. Concern for hemodialysis catheter related bacteremia. Started on daptomycin, cefepime, follow cultures. * Critical care consulted * Nephrology consulted: Patient with end-stage renal disease normally on hemodialysis Sunday. During most recent treatment prior to hospitalization treatment was shortened slightly due to hypotension and abdominal discomfort. Continue hemodialysis in hospital. Patient noted to have right femoral dialysis catheter access this is noted to be 1 of her last possible access sites for her if there is any concern about infection then would recommend this be exchanged over a guidewire. There is some concern for abdominal ischemia in the setting of hypotension. Patient with chronic hypotension this is likely autonomic dysfunction. Continue to monitor avoid aggressive IV fluid. Continue empiric treatment for possible sepsis per ID. * 03/18 2D echo EF 65-70%. * 03/18 cardiology consulted: Patient with mild tachycardia and profound hypotension with dialysis. She has been admitted drain, currently on dopamine. Obtain echo. Will follow.consider northera outpt * Patient also reporting abscess/pain to breast status post ultrasound right breast 03/19 findings of nonspecific edema engorged vessels and skin thickening laterally on right breast no mass or organized fluid demonstrated. * 03/19 with syncopal episode and dialysis. Stable during next dialysis treatment. * 03/22 chest CTA to rule out PE: Negative for central PE small bilateral pleural effusions. No overt congestive failure. * 03/25 off of dopamine x 2 days. Stable. Has completed empiric antibiotics course. Critical care has signed off. Still reporting some nausea with dialysis seems to precede hypotension ordered for Zofran prior to procedure. * 03/26 cardiology notes patient is tearful and questioning if she wants to continue hemodialysis. She also reports feeling depressed. She is noted to be on Wellbutrin. Palliative care was consulted to assist with clarification of goals of treatment. Pt seen in room, initially granddaughters present. Daughter also arrives, and during family meeting many other family members- grandchildren, great grands, etc. Pt is alert, oriented, appropriate. She is able to detail medical history fairly well though at times word searches,and verbalizes she feels her thinking "has been affected" and that she cannot always speak as clearly as she would like. Met w pt, family at length. Function/Cognitive Trajectory: Patient recently at [facility] for short-term rehab but had planned to transition to long-term care. She has had several recent hospitalizations and rehab courses. Previously lived with her daughter using home hospital bed, electric wheelchair, Letitia lift for transfers. Dependent for all ADLs, for about past 6-7 mos. Reports generalized decline over the past several mos. Review of Systems Constitutional: Reports fatigue, Reports weakness, Denies fever(s), Denies headache(s) Eyes: Denies change in vision Ears, Nose, Mouth, and Throat: Denies headache(s), Denies mouth lesions, Denies pain with swallowing Cardiovascular: Reports generalized swelling, Reports shortness of breath with activity, Denies chest pain Respiratory: Denies cough Gastrointestinal: Reports nausea, Reports vomiting (w dialysis ), Denies abdominal pain, Denies black, tarry stools, Denies coffee ground vomit, Denies constipation, Denies difficulty swallowing Musculoskeletal: Reports muscle weakness, Denies back pain Skin/Breast: Denies rash Neurologic: Reports fainting (occais. with dialysis ), Denies headache(s) Psychiatric: Reports anxiety PMFSH - History History Provided By: Patient - Medical History Medical History: Medical History (Last Reviewed 03/25/18 @ 09:16 by Rosalind Lockwood) Gallbladder disease (Acute) Hemodialysis access, AV graft (Acute) ESRD (end stage renal disease) on dialysis (Acute) HBP (high blood pressure) (Acute) Diabetes (Acute) - Surgical History Surgical History: Surgical History (Last Updated 03/26/18 @ 21:42 by LESLYE Ramirez) Hx of appendectomy (Acute) Toe amputation status (Resolved) - Family History Family History: Family History (Last Updated 03/26/18 @ 16:50 by LESLYE Ramirez) Mother Heart disease - Tobacco History Second Hand Smoke Exposure: Yes Tobacco Use In Past 30 Days: No Smoking Status: Never smoker Tobacco Type: Cigarettes - Alcohol History How Often Do You Have a Drink Containing Alcohol: Never - Substance Use History Substance History: No History of Abuse - Travel History Recent Travel in the [place] Within the Last 8 Weeks: No Recent Travel Out of the Country Within the Last 8 Weeks: No - Immunization History Tetanus Immunization: <5 Years Hx Influenza Vaccine This Season: Yes Medications and Allergies Allergies Allergy/AdvReac Type Severity Reaction Status Date / Time levofloxacin Allergy Severe Anaphylaxis Verified 03/15/18 13:35 Home Medications Medication Instructions Recorded Confirmed Type B complex-vitamin C-folic acid 1 tab PO DAILY 03/15/18 03/15/18 History [Nephro-Devendra] aspirin 81 mg PO DAILY 03/15/18 03/15/18 History atorvastatin [Lipitor] 10 mg PO HS 03/15/18 03/15/18 History bupropion HCl 300 mg PO DAILY 03/15/18 03/15/18 History calcium acetate 2,668 mg PO TIDWM 03/15/18 03/15/18 History calcium carbonate 1,000 mg PO DAILY 03/15/18 03/15/18 History calcium carbonate [Calcium 500] 2,000 mg PO Q8HR 03/15/18 03/15/18 History cholecalciferol (vitamin D3) 5,000 unit PO DAILY 03/15/18 03/15/18 History [Vitamin D3] collagenase clostridium histo. 1 applic TOPICAL DAILY 03/15/18 03/15/18 History [Santyl] cyclobenzaprine 10 mg PO BID 03/15/18 03/15/18 History gabapentin 300 mg PO HS 03/15/18 03/15/18 History insulin asp prt-insulin aspart 8 unit SUB-Q BID 03/15/18 03/15/18 History [Novolog Mix 70-30 U-100 Insuln] ipratropium-albuterol [Combivent 2 puff INHALATION BID 03/15/18 03/15/18 History Respimat] levothyroxine 50 mcg PO DAILY 03/15/18 03/15/18 History midodrine 10 mg PO TID 03/15/18 03/15/18 History pantoprazole [Protonix] 40 mg PO DAILY 03/15/18 03/15/18 History silver sulfadiazine [Silvadene] 1 applic TOPICAL BID 03/15/18 03/15/18 History trazodone 100 mg PO HS 03/15/18 03/15/18 History Active Medications: Active Medications Acetaminophen (Tylenol) 650 mg PO UNSCH PRN PRN Reason: SEE LABEL COMMENTS Artificial Tears (Eucerin Cream) 1 applicatio TOPICAL QID [facility] Last Admin: 03/26/18 13:20 Dose: 1 applicatio Calcium Acetate (Phoslo) 2,668 mg PO TID [facility] Last Admin: 03/26/18 13:20 Dose: 2,668 mg Clonidine HCl (Catapres) 0.1 mg PO UNSCH PRN PRN Reason: SEE LABEL COMMENTS Dextrose (D50w Vial) 50 ml IV.PUSH UNSCH PRN PRN Reason: PER HYPOGLYCEMIA PROTOCOL Diphenhydramine HCl (Benadryl) 25 mg PO UNSCH PRN PRN Reason: SEE LABEL COMMENTS Last Admin: 03/22/18 22:24 Dose: 25 mg Gelatin (Gelfoam 12 Mm/7 Mm Topical) 1 foam TOPICAL PRN PRN PRN Reason: help stop bleeding from site Gentamicin Sulfate (Gentamicin Inj) 20 mg OTHER WITH DIALYSIS PRN PRN Reason: Dwell Gentamycin Lock Last Admin: 03/25/18 17:05 Dose: 20 mg Glucagon (Glucagon Inj) 1 mg OTHER PRN PRN PRN Reason: for Hypoglycemia Protocol Heparin Sodium (Porcine) (Heparin Inj) 8,000 units IV.FLUSH WITH DIALYSIS PRN PRN Reason: for machine prime Heparin Sodium (Porcine) (Heparin Inj) 1,000 units OTHER WITH DIALYSIS PRN PRN Reason: Dwell Heparin to Fill Catheter Last Admin: 03/25/18 17:06 Dose: 1,000 units Albumin Human (Flexbumin 25% Inj) 100 mls @ 60 mls/hr IV.SIG WITH DIALYSIS PRN PRN Reason: hypotension / volume replace Last Infusion: 03/22/18 17:38 Dose: Infused Sodium Chloride (Ns Inj) 1,000 mls @ 0 mls/hr OTHER .Q0M PRN PRN Reason: for prime and rinse back Last Admin: 03/25/18 17:06 Dose: 200 mls/hr Sodium Chloride (Ns Inj) 1,000 mls @ 200 mls/hr OTHER .Q5H PRN PRN Reason: for dialyzer flush PRN Sodium Chloride (Ns Inj) 1,000 mls @ 0 mls/hr IV.CONT .Q0M PRN PRN Reason: hypotension / volume replace Dopamine HCl/Dextrose (Dopamine 800 Mg/500 Ml Premix) 800 mg in 500 mls @ 16.737 mls/hr IV.CONT TITRATE PRN; Protocol PRN Reason: Per Protocol Last Titration: 03/23/18 06:40 Dose: 0 mcg/kg/min, 0 mls/hr Insulin Aspart (Novolog Insulin Suppl Scale Inj) 0 unit SQ ACHS GEOVANNY; Protocol Last Admin: 03/26/18 12:08 Dose: Not Given Mannitol (Mannitol Inj) 12.5 gm IV.PUSH PRN PRN PRN Reason: hypotension / volume replace Midodrine (Proamatine) 20 mg PO TID [facility] Nitroglycerin (Nitrostat Sl) 0.4 mg SL Q5M PRN PRN Reason: CHEST PAIN Nystatin/Triamcinolone Acetonide (Mycolog Ii Cream) 1 applicatio TOPICAL BID [facility] Last Admin: 03/26/18 08:31 Dose: 1 applicatio Ondansetron HCl (Zofran Odt) 4 mg PO UNSCH PRN PRN Reason: NAUSEA OR VOMITING Last Admin: 03/25/18 17:34 Dose: 4 mg Ondansetron HCl (Zofran Odt) 4 mg PO Q4H PRN PRN Reason: NAUSEA OR VOMITING Pantoprazole Sodium (Protonix) 40 mg PO BID [facility] Last Admin: 03/26/18 08:31 Dose: 40 mg Sodium Chloride (Ns Flush) 2 ml IV.FLUSH BID [facility] Last Admin: 03/26/18 08:31 Dose: 2 ml Sodium Chloride (Ns Flush) 2 ml IV.FLUSH PRN PRN PRN Reason: FLUSH AFTER USING IV ACCESS Sodium Chloride (Ns Flush) 5 ml IV.FLUSH PRN PRN PRN Reason: flush each lumen during HD Terbutaline Sulfate (Brethine Inj) 1 mg SQ ONCE PRN PRN Reason: Extravasation Tobramycin Sulfate (Tobrex 0.3% Drops) 1 drop EACH EYE QID [facility] Last Admin: 03/26/18 13:20 Dose: 1 drop Physical Exam Vital Signs: Vital Signs - 24 hr 03/25/18 19:00 03/25/18 19:36 03/25/18 21:22 Temperature 97.9 F Pulse Rate 87 83 Respiratory Rate 18 Blood Pressure 111/68 Pulse Oximetry 99 98 03/25/18 23:00 03/26/18 03:00 03/26/18 07:00 Temperature 98.2 F 98.1 F Pulse Rate 97 H 87 79 Respiratory Rate 18 16 18 Blood Pressure 93/47 L 136/73 156/80 H Pulse Oximetry 95 96 94 L 03/26/18 09:38 03/26/18 10:46 03/26/18 10:48 Temperature Pulse Rate Respiratory Rate Blood Pressure Pulse Oximetry 95 95 95 03/26/18 10:55 03/26/18 11:00 03/26/18 15:00 Temperature 98.2 F 98.2 F Pulse Rate 70 77 74 Respiratory Rate 18 18 Blood Pressure 135/75 152/80 H Pulse Oximetry 95 94 L I&O: Intake & Output 03/24/18 03/25/18 03/26/18 03/27/18 06:59 06:59 06:59 06:59 Intake Total 840 / 840 1090 / 1090 720 / 720 Output Total 0 / 0 0 / 0 0 / 0 Balance 840 / 840 1090 / 1090 720 / 720 Weight 126.3 kg 130.3 kg 130.2 kg Physical Exam: CONSTITUTIONAL/GENERAL: This is an obese female patient,pleasant, no distress generally TUBES/LINES/DRAINS: Femoral dialysis catheter, PIV UE SKIN: No jaundice, rashes, or lesions. chronic vascular changes BLE. healed amputation site all Lt toes, rt great toe. reported pressure wounds to buttocks , sacrum not visualized. Skin warm dry, distal feet cool. healed scars bilateral arms. HEAD: Atraumatic. Normocephalic. EYES: Pupils equal and round and reactive. Extraocular motions intact. No scleral icterus. No injection or drainage. Fundi not examined. ENT: Hearing grossly normal. Nose without bleeding or purulent drainage. Throat without visible erythema, exudates, masses, or lesions.Edentulous NECK: Trachea midline. Supple, nontender. No palpable thyroid enlargement or nodularity. CARDIOVASCULAR: Regular rate and rhythm without murmur . No JVD. Peripheral pulses symmetric. RESPIRATORY/CHEST: Symmetric, unlabored respirations.On 2l NC. Clear to auscultation, decreased air movement. Breath sounds equal bilaterally. GASTROINTESTINAL: Abdomen soft, obese, non-tender, nondistended. No hepato- splenomegaly, or palpable masses. Bowel sounds present. GENITOURINARY: Without palpable bladder distension. MUSCULOSKELETAL: Extremities without clubbing, cyanosis. No joint tenderness or effusion noted. chronic vascular changes BLE. healed amputation site Lt toes. LYMPHATICS: No palpable cervical or supraclavicular adenopathy. NEUROLOGICAL: Awake and alert, oriented x3. Appropriate appears to have good insight/judgement. Motor and sensory grossly within normal limits. Follows commands. Cognitively sharp. Moves all 4 extremities w generalized weakness. PSYCHIATRIC: slight anxiety/tearfulness at times during conversation Diagnostic Tests Laboratory: Laboratory Results - last 72 hr 03/23/18 03/23/18 03/24/18 16:54 21:04 03:40 Sodium 139 Potassium 4.3 Chloride 99 Carbon Dioxide 31.5 Anion Gap 9 BUN 23 H Creatinine 6.11 H Estimated GFR 9 L POC Glucose 139 H 169 H Random Glucose 82 Calcium 10.1 D Total Bilirubin 0.5 AST 8 L ALT 9 L Alkaline Phosphatase 54 Total Protein 7.3 Albumin 3.1 L 03/24/18 03/24/18 03/24/18 07:54 11:59 16:55 Sodium Potassium Chloride Carbon Dioxide Anion Gap BUN Creatinine Estimated GFR POC Glucose 87 145 H 120 H Random Glucose Calcium Total Bilirubin AST ALT Alkaline Phosphatase Total Protein Albumin 03/24/18 03/25/18 03/25/18 22:04 07:48 12:09 Sodium Potassium Chloride Carbon Dioxide Anion Gap BUN Creatinine Estimated GFR POC Glucose 180 H 97 109 Random Glucose Calcium Total Bilirubin AST ALT Alkaline Phosphatase Total Protein Albumin 03/25/18 03/25/18 03/26/18 17:24 21:05 07:50 Sodium Potassium Chloride Carbon Dioxide Anion Gap BUN Creatinine Estimated GFR POC Glucose 123 H 154 H 85 Random Glucose Calcium Total Bilirubin AST ALT Alkaline Phosphatase Total Protein Albumin 03/26/18 11:49 Sodium Potassium Chloride Carbon Dioxide Anion Gap BUN Creatinine Estimated GFR POC Glucose 114 H Random Glucose Calcium Total Bilirubin AST ALT Alkaline Phosphatase Total Protein Albumin Result Diagrams: 03/21/18 03:02 03/24/18 03:40 Microbiology: Microbiology 03/16/18 15:00 Blood - Peripheral Aerobic Blood Culture - Final No growth in 5 days 03/16/18 15:00 Blood - Peripheral Anaerobic Blood Culture - Final No growth in 5 days 03/16/18 15:05 Blood - Peripheral Aerobic Blood Culture - Final No growth in 5 days 03/16/18 15:05 Blood - Peripheral Anaerobic Blood Culture - Final No growth in 5 days Imaging: Abdomen/Pelvis CT 03/15/18 13:55 CONCLUSION: 1. Stable CT scan of the abdomen and pelvis compared to the recent prior study. No new or significant changes. Chest X-Ray 03/16/18 00:00 CONCLUSION: No acute cardiopulmonary disease. Stents overlie the left axilla. Abdomen X-Ray 03/16/18 10:14 CONCLUSION: Unremarkable abdomen. Soft Tissue Ultrasound 03/19/18 00:00 CONCLUSION: 1. Nonspecific edema, engorged vessels and skin thickening laterally of the right breast. 2. No mass or organized fluid demonstrated. Abdomen Ultrasound 03/20/18 00:00 CONCLUSION: 1. Small kidneys. The right kidney is echogenic. This appearance is consistent with chronic medical renal disease. 2. Dilatation the common bile duct. This may reflect a reservoir following cholecystectomy. A filling defect is not seen within the visualized portion of the common bile duct. Chest CTA 03/22/18 00:00 CONCLUSION: 1. Negative for central pulmonary emboli. 2. Small bilateral pleural effusions 3. No overt congestive failure. Patient/Family Conference Present at Family Conference: pt, daughter, multiple grandchildren, multiple other family members Family Conference Time: 40 Family Conference Location: Bedside Issues Discussed: Met w pt, family, discussion included: * Palliative care role, purpose, approach * Additional medical, psychosocial, and spiritual history * Patients general health, functional status, and cognitive changes in the months leading up to the current hospitalization * Patient understanding of the current medical problems * Patient understanding of prognosis * Patients goals of care * Current medical treatment options and benefits/burdens of those options * Likely scenarios comparing ongoing aggressive care with a transition to comfort measures only * Code status- requests DNR status * legal decision makers/ HCS designation, offered assistance with completion-- pt may want to complete, thinks would probably designate daughter. Declines to complete today * Questions answered to the best of my ability * Palliative care contact information provided Pt appears to have good understanding of conditions, medical hx. She details has been dialysis depdent for the past 15 years. She describes general decline and increased debility over past 6-12 mos, in which she became increasingly dependent on her family. She has had multiple recent hospitalizations, and feels each time she is a little weaker. She feels most recently in rehab she was doing a little better, but now she is back in the hospital, with hypotension and nausea with the dialysis. She is appropriately tearful at times. She understands progressive nature of her conditions. She understands benefits/burdens of continued treatment vs comfort care with hospice. She understands very limited life expectancy without dialysis. She indicates she is very tired of being in the hospital, and that she is not seeing return to the quality of life she prefers after recurrent hospitalization. She verbalizes no longer seeing benefit to continued dialysis as her overall health is declining. She requests DNR. She requests to be able to go home with hospice support, so she may at home , comfortably, and naturally with the family she loves. Her family is tearful and distressed by this, however she is firm in her wishes, they are supportive of her wishes. Her daughter endorses that she has been suffering, and she does not want to see her suffer any more. Hospice to be consulted, tin plater also consulted per pt request. Pt daughter also mentions 2 grandsons in the which she is working on getting released for visitation of Ms Jenkins. Palliative will assist with whatever documentation may help facilitate this. Assessment and Plan Pertinent Non-Medical Issues: Psychosocial:originally from [place], moved to [place] many years ago to get out of the cold. Has not been able to work for many years due to her medical conditions. Not . Supported by her adult daughter and many grandchildren and other extended family members. Spiritual:Holiness evan, requests tin plater visitation Legal: Patient is alert and oriented and able to make her own decisions. She is supported by her daughter (she also has a son who is not in the area). She would probably designate her daughter as healthcare surrogate I offered her assistance with this tonight she is not ready to do that. Per [place] [employer] legal decision making would fall to her 2 adult children if she became incapacitated. Ethical issues impacting care: no ethical issues identified Important Contacts: Sally Terrell(Daughter)[phone] Prognosis: This patient was admitted for n/v, weakness. Initially with sepsis workup, now completed abx. Hx ESRD, HD dependent.Multiple chronic medical conditions. She has had multiple recent hospitalizations,general decline , recent resistant infections. appropriate for hospice if goals compatible. Code Status: No Code DNR Plan: Legal decision maker: Patient is alert and oriented and able to make her own decisions. She is supported by her daughter (she also has a son who is not in the area). She would probably designate her daughter as healthcare surrogate I offered her assistance with this tonight she is not ready to do that. Per [place] [employer] legal decision making would fall to her 2 adult children if she became incapacitated. Goals: Met with patient, daughter and multiple other family members at length. Patient has good understanding of conditions and prognosis. She is a good understanding of treatment options. She indicates that she is tired of being in the hospital and tired of being ill. She has been undergoing dialysis for the past 15 years. She does not wish to do any further hemodialysis nor have any further hospitalizations. She understands her life expectancy could be days to a week . She wishes to try to go home with hospice services for comfort. She has been offered a hospice care center but really wants to be home. Hospice order entered, called to hospice admissions, they advised patient would have Sunday morning appointment between 9 and 10 AM. --Discussed with primary nurse, equal opportunity director CODE STATUS: DNR. SYMPTOMS: --Fatigue-generalized, chronic. Long-term end-stage renal disease on hemodialysis. Endorses feeling weaker, tired in general but mey on dialysis days.+chronic debility, deconditioned. --Nausea/vomiting- episodic with HD. Does not occur when not undergoing Hemodialysis. Has tried PRN zofran before/during, indicates helps a little but not fully. -- anxiety- endorses some anxiety thinking about end of life and hospice services. Asks if hospice will help her to not be frightened as she approaches EOL. Appropriate for PRN benzodiazepine with comfort oriented goals. Palliative care will continue to follow during hospital course as condition evolves, to assist patient/decision-maker with understanding of medical conditions, weighing benefits/burdens of treatment options, for clarification of goals of treatment. Additionally will assist with any symptoms of palliative concern Time Spent Total Floor Time (mins): 70 (Chart review, PE, discussion with patient and family, discussion with nursing) Appreciation Thank you for the opportunity to participate in the care of Aleksandra Jenkins. Attestation Collaborating MD Comments: Chart reviewed. Case discussed with palliative care nurse practitioner. Above CABLE ASSEMBLER note reviewed and I concur. . Attestation: To help prompt me to consider important information that might be impacting today's encounter and assessment, information from prior notes written by myself or my colleagues may have been "brought forward" into today's note. My signature on this note, however, is an attestation that I personally performed the exam, history, and/or decision-making noted today, and, unless otherwise indicated, the interactions with patient, family, and staff as well as the review of records all occurred today. I also attest that the listed assessment and stated plan reflect my best clinical judgment today based on the combination of historical information, prior notes, and today's exam/ interactions. When time spent is documented, it refers only to time spent today by the signer, or if indicated, combined time spent today by collaborating physician/nurse practitioner.
[2018-03-27] MEDS: Insulin NovoLOG Aspart Correctional Sugar Inj SQ SCH ×2 (07:28→14:09)
[2018-03-27] MEDS: Calcium Acetate 667 MG Capsule PO SCH ×2 (08:02→14:09)
[2018-03-27] MEDS: Tobramycin 0.3% Opth Drops 5 ML Bottle EACH EYE SCH ×2 (08:02→14:10)
--- NOTE | 2018-03-27 08:54 | P.PNCA ---
<Shadeed,December - Last Filed: 03/27/18 08:50> Subjective Interval history: Patient is lying in bed in no acute distress. She is tearful. Has elected to go home on Hospice care. She reports feeling tired and unsure if she can handle dialysis and the associated side effects. Palliative care consulted yesterday. Physical Exam Vital signs: Vital Signs 03/26/18 09:38 03/26/18 10:46 03/26/18 10:48 Temperature Pulse Rate Respiratory Rate Blood Pressure Pulse Oximetry 95 95 95 03/26/18 10:55 03/26/18 11:00 03/26/18 15:00 Temperature 98.2 F 98.2 F Pulse Rate 70 77 74 Respiratory Rate 18 18 Blood Pressure 135/75 152/80 H Pulse Oximetry 95 94 L 03/26/18 19:00 03/26/18 20:00 03/26/18 21:17 Temperature 98.3 F Pulse Rate 87 Respiratory Rate 18 Blood Pressure 143/70 H Pulse Oximetry 96 94 L 97 03/26/18 23:00 03/27/18 03:00 03/27/18 06:56 Temperature Pulse Rate 77 75 Respiratory Rate 18 18 18 Blood Pressure 127/70 Pulse Oximetry 96 95 03/27/18 06:57 03/27/18 07:00 03/27/18 07:55 Temperature 98.1 F Pulse Rate 82 78 Respiratory Rate 18 Blood Pressure 111/66 Pulse Oximetry 95 98 Intake & Output 03/26/18 03/27/18 03/27/18 18:59 06:59 18:59 Intake Total 240 / 240 200 / 200 Balance 240 / 240 200 / 200 Weight 130 kg Intake: Oral 240 / 240 200 / 200 Other: Date of Last Bowel Movement 03/26/18 03/26/18 # Bowel Movements 0 - Constitutional no acute distress - Routine HEENT Exam Head: Present: normocephalic, atraumatic Eye: Present: PERRL ENT: Present: mucous membranes moist - Routine Neck Exam Present: supple - Routine Respiratory Exam Present: diminished air movement - Routine Cardiovascular Exam Present: RRR - Routine Abdominal Exam Comments: obese - Routine Extremities Exam Present: amputation - Routine Skin Exam Present: intact - Routine Neurological Exam Present: alert, oriented X3 - Detailed Neurological Exam: Coma Scale Eye Opening: Spontaneous Verbal Response: Oriented Motor Response: Obey commands Gilbert Coma Scale Total: 15 - Routine Psychiatric Exam Present: good insight, depressed Assessment and Plan - Plan Hypotension SOB -BP stable. Denies any further syncopal episodes. Did have episode where she felt nauseous and BP dropped associated with SOB during dialysis on Sunday. Currently off dopamine drip, may re-initiate PRN. Pt has elected to go home on hospice care. Patient request to speak with tax record clerk. The patient was seen and evaluated by Norah Francis who participated in care and management. Code Status: DNR Discussed Condition With: Nurse <Pinky Francis - Last Filed: 03/28/18 14:51> Assessment and Plan - Assessment (1) COPD (chronic obstructive pulmonary disease) Code(s): J44.9 - Chronic obstructive pulmonary disease, unspecified Status: Acute (2) End-stage renal disease on hemodialysis Code(s): N18.6 - End stage renal disease; Z99.2 - Dependence on renal dialysis Status: Acute (3) HBP (high blood pressure) Code(s): I10 - Essential (primary) hypertension Status: Acute (4) Diabetes Code(s): E11.9 - Type 2 diabetes mellitus without complications Status: Acute - Plan Unfortunate situation with ill pt
--- NOTE | 2018-03-27 11:20 | P.PNPAL ---
Reason for Visit Reason for visit: a. To assist with evaluation and management of symptoms including:anxiety b. To assist medical decision maker(s) with: better understanding of current medical conditions; weighing benefits/burdens of medical treatment options; making medical treatment decisions. Subjective Subjective/Interval History: Pt seen to follow up on comfort goals, following planned meeting with hospice this morning. [seen at 0945] uneventful night. No new labs or imaging. Vital signs, BP stable not on drips. Patient seen just after her meeting with hospice. She is alert and oriented. She indicates hospice is helping to make arrangements to get her home today. She denies shortness of breath. She denies pain currently. Denies anxiety currently. Tells me that she had talked more overnight with her family, and that she wonders if she is making the right decision she does not want to be selfish if she should keep doing treatments for her family sake. Review of her medical history in the past 15 years of hemodialysis. Review with her her daughter's conversation with her last night, in which her daughter indicated that patient had raised them and all their bills were paid and they were all comfortable in life and that it was now her (patient) time to focus on herself. She explores the past several months of hospitalizations and rehabilitation and her downward trajectory. She tells me that she is so tired of it, and that she no longer feels very well in between times and that she does wish to continue with hospice and comfort measures only. Review that her family all expressed support for this last night though certainly they are all appropriately grieving at expected loss of Ms Jenkins. She is appreciative of ongoing conversation, she affirms that she has confidence in her choice for hospice. She wants to be comfortable at home. She indicates she was offered a care center but she says she has been in and out of various facilities over the past several months and she just wants to be in her own home with her family. She does tell me that she is a little worried about the anxiety as she approaches end-of-life she asks what the experience might be like. Advised that hospice will be following regularly and make sure that she has adequate medication for relief of symptoms of anxiety and any other symptoms that may arise. Further explore expected trajectory with end-stage renal failure and absence of hemodialysis that she will have life expectancy of days to possibly a week, and as it progresses she will become increasingly lethargic, and not likely she will experience pain. She asks what food she may eats, advised that as she is nearing the end he will in the coming days for renal failure she can choose to eat what she wishes for comfort and as tolerated. She expresses happiness at this and tells me it will be so good to have some of the seen because of her kidney failure. Supportive listening provided. She requests edge inker visit. Discussed with hospice admissions nurse Sylvia. Discussed with patient primary nurse. Call to edge inker to sonja Baptiste-he will be by shortly to visit her. Objective Vital Signs: Vital Signs 03/26/18 10:55 03/26/18 11:00 03/26/18 15:00 Temperature 98.2 F 98.2 F Pulse Rate 70 77 74 Respiratory Rate 18 18 Blood Pressure 135/75 152/80 H Pulse Oximetry 95 94 L 03/26/18 19:00 03/26/18 20:00 03/26/18 21:17 Temperature 98.3 F Pulse Rate 87 Respiratory Rate 18 Blood Pressure 143/70 H Pulse Oximetry 96 94 L 97 03/26/18 23:00 03/27/18 03:00 03/27/18 06:56 Temperature Pulse Rate 77 75 Respiratory Rate 18 18 18 Blood Pressure 127/70 Pulse Oximetry 96 95 03/27/18 06:57 03/27/18 07:00 03/27/18 07:55 Temperature 98.1 F Pulse Rate 82 78 Respiratory Rate 18 Blood Pressure 111/66 Pulse Oximetry 95 98 Intake & Output 03/26/18 03/27/18 03/27/18 18:59 06:59 18:59 Intake Total 240 / 240 200 / 200 Balance 240 / 240 200 / 200 Weight 130 kg Intake: Oral 240 / 240 200 / 200 Other: Date of Last Bowel Movement 03/26/18 03/26/18 # Bowel Movements 0 Physical Exam: CONSTITUTIONAL/GENERAL: This is an obese female patient,pleasant, no distress TUBES/LINES/DRAINS: Femoral dialysis catheter, PIV UE SKIN: No jaundice, rashes, or lesions. chronic vascular changes BLE. healed amputation site all Lt toes, rt great toe. reported pressure wounds to buttocks , sacrum not visualized. Skin warm dry, distal feet cool. healed scars bilateral arms. HEAD: Atraumatic. Normocephalic. EYES: Pupils equal and round and reactive. Extraocular motions intact. No scleral icterus. No injection or drainage. Fundi not examined. CARDIOVASCULAR: Regular rate and rhythm without murmur . No JVD. Peripheral pulses symmetric. RESPIRATORY/CHEST: Symmetric, unlabored respirations.On 2l NC. Clear to auscultation, decreased air movement. Breath sounds equal bilaterally. GASTROINTESTINAL: Abdomen soft, obese, non-tender, nondistended. No hepato- splenomegaly, or palpable masses. Bowel sounds present. MUSCULOSKELETAL: Extremities without clubbing, cyanosis. No joint tenderness or effusion noted. chronic vascular changes BLE. healed amputation site Lt toes. NEUROLOGICAL: Awake and alert, oriented x3. Pleasant. Appropriate, has good insight/judgement. Motor and sensory grossly within normal limits. Follows commands. Cognitively sharp. Moves all 4 extremities w generalized weakness. PSYCHIATRIC: no evident anxiety Diagnostic Tests Laboratory: Laboratory Results - last 72 hr 03/24/18 03/24/18 03/24/18 11:59 16:55 22:04 POC Glucose 145 H 120 H 180 H 03/25/18 03/25/18 03/25/18 07:48 12:09 17:24 POC Glucose 97 109 123 H 03/25/18 03/26/18 03/26/18 21:05 07:50 11:49 POC Glucose 154 H 85 114 H Result Diagrams: 03/21/18 03:02 03/24/18 03:40 Assessment and Plan Pertinent Non-Medical Issues: Psychosocial:originally from [place], moved to [place] many years ago to get out of the cold. Has not been able to work for many years due to her medical conditions. Not . Supported by her adult daughter and many grandchildren and other extended family members. Spiritual:[employer] ev[employer], requests edge inker visitation Legal: Patient is alert and oriented and able to make her own decisions. She is supported by her daughter (she also has a son who is not in the area). She would probably designate her daughter as healthcare surrogate I offered her assistance with this tonight she is not ready to do that. Per [place] statutes legal decision making would fall to her 2 adult children if she became incapacitated. Ethical issues impacting care: no ethical issues identified Important Contacts: Sally Terrell(Daughter)[phone] Prognosis: This patient was admitted for n/v, weakness. Initially with sepsis workup, now completed abx. Hx ESRD, HD dependent.Multiple chronic medical conditions. She has had multiple recent hospitalizations,general decline , recent resistant infections. appropriate for hospice if goals compatible. Code Status: No Code DNR Plan: Legal decision maker: Patient is alert and oriented and able to make her own decisions. She is supported by her daughter (she also has a son who is not in the area). She would probably designate her daughter as healthcare surrogate I offered her assistance with this tonight she is not ready to do that. Per [place] statutes legal decision making would fall to her 2 adult children if she became incapacitated. Goals: Prev. Met with patient, daughter and multiple other family members at length. Patient has good understanding of conditions and prognosis. She requests to go home with hospice services, comfort treatment only. Hospice met with pt this am, she is planned to go home today with hospice. --Discussed with primary nurse, hospice nurse, edge inker Emile CODE STATUS: DNR. SYMPTOMS: Going home today with hospice- medications per hospice attending --Fatigue-generalized, chronic. Long-term end-stage renal disease on hemodialysis. Endorses feeling weaker, tired in general but mey on dialysis days.+chronic debility, deconditioned. --Nausea/vomiting- episodic with HD. Does not occur when not undergoing Hemodialysis. Has tried PRN zofran before/during, indicates helps a little but not fully. -- anxiety- endorses some anxiety thinking about end of life and hospice services. She indicates she is NOT currently anxious and does not want prn for currently. Appropriate for PRN benzodiazepine with comfort oriented goals. Palliative care will continue to follow during hospital course as condition evolves, to assist patient/decision-maker with understanding of medical conditions, weighing benefits/burdens of treatment options, for clarification of goals of treatment. Additionally will assist with any symptoms of palliative concern Time Spent Total Floor Time (mins): 25 (chart review, PE, d/w pt, d/w nursing, d/w hospice nurse ) Attestation Collaborating Comments: Chart reviewed. Case discussed with palliative care nurse practitioner. Above PIERCING SPECIALIST note reviewed and I concur. . Attestation: To help prompt me to consider important information that might be impacting today's encounter and assessment, information from prior notes written by myself or my colleagues may have been "brought forward" into today's note. My signature on this note, however, is an attestation that I personally performed the exam, history, and/or decision-making noted today, and, unless otherwise indicated, the interactions with patient, family, and staff as well as the review of records all occurred today. I also attest that the listed assessment and stated plan reflect my best clinical judgment today based on the combination of historical information, prior notes, and today's exam/ interactions. When time spent is documented, it refers only to time spent today by the signer, or if indicated, combined time spent today by collaborating physician/nurse practitioner.
--- NOTE | 2018-03-27 14:19 | P.DS ---
Date of admission: 03/15/18 17:36 Primary care physician: UNKNOWN Attending physician on discharge: Bryan Bustos Brief History from admission: pt admitted via ed last pm had been at dialysis and had developed nausea and vomiting and was sent ED by dialysis discussed at length with dr DRUMMOND admission orders entered DS: Diagnosis - Discharge Diagnosis (1) Diabetes 1.5, managed as type 1 Status: Acute (2) Abdominal pain Status: Acute (3) End-stage renal disease on hemodialysis Status: Acute DS: Summary Hospital Course: pt admitted to hospital when her bp dropped during dialysis she was given pressors and cardiac /renal consultations but was not able to completely eleminate the bp drops with dialysis these were so uncomfortable with near syncope and nausea that she ultimately decided to return home with hospice rather than continue dialysis she was dcd to hospice care in stable condition - Time Spent with Patient Total time spent providing and/or coordinating discharge services: Greater than 30 minutes - Quality: VTE Contraindication No VTE Prophylaxis: Not indicated Deep Vein Thrombosis/Pulmonary Embolism Present on Admission: No Exam Vital signs: Vital Signs 03/26/18 15:00 03/26/18 19:00 03/26/18 20:00 Temperature 98.2 F 98.3 F Pulse Rate 74 87 Respiratory Rate 18 18 Blood Pressure 152/80 H 143/70 H Pulse Oximetry 94 L 96 94 L 03/26/18 21:17 03/26/18 23:00 03/27/18 03:00 Temperature Pulse Rate 77 75 Respiratory Rate 18 18 Blood Pressure 127/70 Pulse Oximetry 97 96 03/27/18 06:56 03/27/18 06:57 03/27/18 07:00 Temperature 98.1 F Pulse Rate 82 78 Respiratory Rate 18 18 Blood Pressure 111/66 Pulse Oximetry 95 95 03/27/18 07:55 Temperature Pulse Rate Respiratory Rate Blood Pressure Pulse Oximetry 98 Intake & Output 03/26/18 03/27/18 03/27/18 18:59 06:59 18:59 Intake Total 240 / 240 200 / 200 Balance 240 / 240 200 / 200 Weight 130 kg Intake: Oral 240 / 240 200 / 200 Other: Date of Last Bowel Movement 03/26/18 03/26/18 # Bowel Movements 0 Results Procedures completed during hospitalization: dialysis - Impressions ITS Impressions Abdomen/Pelvis CT 03/15/18 13:55 CONCLUSION: 1. Stable CT scan of the abdomen and pelvis compared to the recent prior study. No new or significant changes. Chest X-Ray 03/16/18 00:00 CONCLUSION: No acute cardiopulmonary disease. Stents overlie the left axilla. Abdomen X-Ray 03/16/18 10:14 CONCLUSION: Unremarkable abdomen. Soft Tissue Ultrasound 03/19/18 00:00 CONCLUSION: 1. Nonspecific edema, engorged vessels and skin thickening laterally of the right breast. 2. No mass or organized fluid demonstrated. Abdomen Ultrasound 03/20/18 00:00 CONCLUSION: 1. Small kidneys. The right kidney is echogenic. This appearance is consistent with chronic medical renal disease. 2. Dilatation the common bile duct. This may reflect a reservoir following cholecystectomy. A filling defect is not seen within the visualized portion of the common bile duct. Chest CTA 03/22/18 00:00 CONCLUSION: 1. Negative for central pulmonary emboli. 2. Small bilateral pleural effusions 3. No overt congestive failure. Discharge Plan - Discharge Disposition Patient Disposition: 50 Hospice/Home - Discharge Condition Condition: Stable - Discharge Order Discharge Orders: Discharge Order (Routine); Ordered 03/27/18 Ordered By: Bryan Bustos - Discharge Details Anticipated Discharge Date: 03/27/18 Discharge Comment: to hospice - Physicians Team Primary Care Provider: UNKNOWN, Attending Provider: Bryan Bustos Other Providers: Kalli Rowe MD ; Tahir Blas MD ; Leonidas Rowe MD ; Hi Macedo MD ; Bryan Tao MD
== END 2018-03-27 15:38 | disposition hospice, home (50) ==
LOC: NEPE 13:28 → NEDA 17:36 → N06 19:58 → HCVI 03-16 12:15
PROVIDERS: ADMIT Family Medicine; ATTEND Family Medicine
DX: I95.3 Hypotension of hemodialysis; R53.81 Other malaise; Z79.82 Long term (current) use of aspirin; Z89.412 Acquired absence of left great toe; F41.9 Anxiety disorder, unspecified; E21.3 Hyperparathyroidism, unspecified; R53.1 Weakness; G47.30 Sleep apnea, unspecified; J44.9 Chronic obstructive pulmonary disease, unspecified; I13.2 Hypertensive heart and chronic kidney disease with heart failure and with stage 5 chronic kidney disease, or end stage renal disease; E10.42 Type 1 diabetes mellitus with diabetic polyneuropathy; I50.9 Heart failure, unspecified; Z77.22 Contact with and (suspected) exposure to environmental tobacco smoke (acute) (chronic); Z66 Do not resuscitate; K21.9 Gastro-esophageal reflux disease without esophagitis; E78.00 Pure hypercholesterolemia, unspecified; Z99.81 Dependence on supplemental oxygen; E10.22 Type 1 diabetes mellitus with diabetic chronic kidney disease; I95.89 Other hypotension; Z68.42 Body mass index [BMI] 45.0-49.9, adult; Z79.4 Long term (current) use of insulin; E03.9 Hypothyroidism, unspecified; N63.10 Unspecified lump in the right breast, unspecified quadrant; E66.01 Morbid (severe) obesity due to excess calories; N18.6 End stage renal disease; Z99.2 Dependence on renal dialysis; I25.10 Atherosclerotic heart disease of native coronary artery without angina pectoris